=== PATIENT | male | born 1945 | race Caucasian/White ===

== ENCOUNTER 2018-01-14 20:46 | Inpatient (IN) | payer OTHER ==
--- OUTSIDE RECORDS SUMMARY | 2018-01-14 20:50 | XMS REPORT ---
:1945 [facility] Address [address] [place] [address] [place] [id number] Care Team Providers Name Role Phone James LONDONO Unavailable Unavailable Problems This patient has no known problems. Allergies, Adverse Reactions, Alerts This patient has no known allergies or adverse reactions. Medications This patient has no known medications. Results Test Description Test Time Test Comments Text Results Atomic Results Result Comments BASIC METABOLIC PANEL 2017-12-23 08:06:00 Test Item Value Reference Range Comments SODIUM (BEAKER) (test 140 meq/L 136-145 zssc=416) POTASSIUM (BEAKER) (test 3.7 meq/L 3.5-5.1 ovkq=728) CHLORIDE (BEAKER) (test 106 meq/L 98-107 tcrn=589) CO2 (BEAKER) (test vmwm=533) 26 meq/L 22-29 BLOOD UREA NITROGEN (BEAKER) 18 mg/dL 7-21 (test btfl=497) CREATININE (BEAKER) (test 0.93 mg/dL 0.57-1.25 hdhq=153) GLUCOSE RANDOM (BEAKER) 118 mg/dL 70-105 (test xerr=000) CALCIUM (BEAKER) (test 9.0 mg/dL 8.4-10.2 kllc=811) EGFR (BEAKER) (test 79 mL/min/1.73 sq m ESTIMATED GFR IS NOT fzgh=9114) ACCURATE CREATININE CLEARANCE IN PREDICTING GLOMERULAR FILTRATION RATE. ESTIMATED GFR IS NOT APPLICABLE FOR DIALYSIS PATIENTS. CBC W/PLT COUNT & AUTO [id number] 07:34:00 Test Item Value Reference Range Comments WHITE BLOOD CELL COUNT (BEAKER) (test mbqd=763) 9.9 K/ L 3.5-10.5 RED BLOOD CELL COUNT (BEAKER) (test asnu=838) 3.81 M/ L 4.63-6.08 HEMOGLOBIN (BEAKER) (test zvxe=191) 10.6 GM/DL 13.7-17.5 HEMATOCRIT (BEAKER) (test qyjp=756) 32.7 % 40.1-51.0 MEAN CORPUSCULAR VOLUME (BEAKER) (test zhtl=307) 85.8 fL 79.0-92.2 MEAN CORPUSCULAR HEMOGLOBIN (BEAKER) (test 27.8 pg 25.7-32.2 ctlv=225) MEAN CORPUSCULAR HEMOGLOBIN CONC (BEAKER) (test 32.4 GM/DL 32.3-36.5 aiwf=838) RED CELL DISTRIBUTION WIDTH (BEAKER) (test 16.5 % 11.6-14.4 jeix=635) PLATELET COUNT (BEAKER) (test cgda=036) 233 K/CU MM 150-450 MEAN PLATELET VOLUME (BEAKER) (test jzzm=261) 10.2 fL 9.4-12.4 NUCLEATED RED BLOOD CELLS (BEAKER) (test 0 /100 WBC 0-0 vudi=369) NEUTROPHILS RELATIVE PERCENT (BEAKER) (test 62 % bjdn=259) LYMPHOCYTES RELATIVE PERCENT (BEAKER) (test 26 % gjhl=260) MONOCYTES RELATIVE PERCENT (BEAKER) (test 7 % epgn=854) EOSINOPHILS RELATIVE PERCENT (BEAKER) (test 3 % ogpe=502) BASOPHILS RELATIVE PERCENT (BEAKER) (test 0 % wwym=801) NEUTROPHILS ABSOLUTE COUNT (BEAKER) (test 6.11 K/ L 1.78-5.38 igef=967) LYMPHOCYTES ABSOLUTE COUNT (BEAKER) (test 2.59 K/ L 1.32-3.57 coea=828) MONOCYTES ABSOLUTE COUNT (BEAKER) (test 0.73 K/ L 0.30-0.82 knjf=944) EOSINOPHILS ABSOLUTE COUNT (BEAKER) (test 0.34 K/ L 0.04-0.54 yguf=795) BASOPHILS ABSOLUTE COUNT (BEAKER) (test 0.04 K/ L 0.01-0.08 qlym=315) IMMATURE GRANULOCYTES-RELATIVE PERCENT (BEAKER) 1 % 0-1 (test lqfq=3592)
--- OUTSIDE RECORDS SUMMARY | 2018-01-14 20:50 | XMS REPORT | Clinical Summary ---
:1945 Author Organization [facility] Address [address] [place] [address] Phone Care Team Providers Name Role Phone Unavailable Primary Care Provider Unavailable Allergies Active Allergy Reactions Severity Noted Date Comments Hydromorphone (Bulk) Other (See Comments) 10/12/2013 "hot and cold sweat" Current Medications Prescription Sig. Disp. Refills Start Date End Date Status sertraline (ZOLOFT) Take 100 mg by Active 50 MG tablet mouth daily . ranolazine (RANEXA) Take 500 mg by Active 1,000 mg SR tablet mouth 2 (two) times daily. niacin (NIASPAN) 1000 Take 1,000 mg by Active MG CR tablet mouth nightly. carvedilol (COREG) 25 Take 25 mg by Active MG tablet mouth daily . lisinopril Take 20 mg by Active (PRINIVIL,ZESTRIL) 20 mouth 2 (two) MG tablet times daily . tamsulosin (FLOMAX) Take 0.4 mg by Active 0.4 mg Cp24 24 hr mouth daily. capsule spironolactone Take 25 mg by Active (ALDACTONE) 25 MG mouth daily. tablet gabapentin Take 300 mg by Active (NEURONTIN) 300 MG mouth 3 (three) capsule times daily. omeprazole (PRILOSEC) Take 20 mg by Active 20 MG capsule mouth daily. promethazine Take 25 mg by Active (PHENERGAN) 25 MG mouth every 8 tablet (eight) hours as needed for Nausea. aspirin 81 MG EC Take 81 mg by Active tablet mouth daily. furosemide (LASIX) 40 Take 40 mg by Active MG tablet mouth 2 (two) times daily. glipiZIDE (GLUCOTROL) Take 5 mg by Active 10 MG tablet mouth 2 (two) times daily before meals. minoxidil (LONITEN) Take 2.5 mg by Active 2.5 MG tablet mouth 2 (two) times daily. atorvastatin Take 40 mg by Active (LIPITOR) 40 MG mouth daily. tablet ALPRAZolam (XANAX) Take 1 mg by Active 0.5 MG tablet mouth every night as needed for Anxiety. glimepiride (AMARYL) Take 2 mg by Active 2 MG tablet mouth 2 (two) times daily. sotalol AF (BETAPACE Take 80 mg by Active AF) 80 MG tablet mouth 2 (two) times daily. apixaban (ELIQUIS) 5 Take 5 mg by Active mg Tab tablet mouth 2 (two) times daily. simvastatin (ZOCOR) Take 80 mg by 02/27/2017 Discontinued 80 MG tablet mouth nightly. metFORMIN (GLUMETZA) Take 1,000 mg by 02/27/2017 Discontinued 1000 MG (MOD) 24 hr mouth 2 (two) tablet times daily with breakfast and dinner. clopidogrel (PLAVIX) Take 75 mg by 02/27/2017 Discontinued 75 mg tablet mouth daily. albuterol-ipratropium Inhale 2 puffs 02/27/2017 Discontinued (COMBIVENT) 18-103 by mouth via mcg/actuation inhaler inhaler every 6 (six) hours as needed. minoxidil (LONITEN) Take 2.5 mg by 02/27/2017 Discontinued 2.5 MG tablet mouth daily. budesonide-formoterol Inhale 2 puffs 02/27/2017 Discontinued (SYMBICORT) 160-4.5 by mouth via mcg/actuation inhaler inhaler 2 (two) times daily. aspirin 325 MG EC Take 325 mg by 02/27/2017 Discontinued tablet mouth daily. spironolactone Take 25 mg by 03/22/2017 Discontinued (ALDACTONE) 25 MG mouth daily. tablet metOLazone Take 5 mg by 03/22/2017 Discontinued (ZAROXOLYN) 5 MG mouth daily. tablet gabapentin Take 300 mg by 03/22/2017 Discontinued (NEURONTIN) 300 MG mouth 3 (three) capsule times daily. omeprazole (PRILOSEC) Take 20 mg by 03/22/2017 Discontinued 20 MG capsule mouth daily. promethazine Take 25 mg by 03/22/2017 Discontinued (PHENERGAN) 25 MG mouth every 8 tablet (eight) hours as needed for Nausea. furosemide (LASIX) 40 Take 40 mg by 03/22/2017 Discontinued MG tablet mouth 2 (two) times daily. glipiZIDE (GLUCOTROL) Take 5 mg by 03/22/2017 Discontinued 10 MG tablet mouth 2 (two) times daily before meals. minoxidil (LONITEN) Take 2.5 mg by 03/22/2017 Discontinued 2.5 MG tablet mouth 2 (two) times daily. atorvastatin Take 40 mg by 03/22/2017 Discontinued (LIPITOR) 40 MG mouth daily. tablet ALPRAZolam (XANAX) Take 1 mg by 03/22/2017 Discontinued 0.5 MG tablet mouth every night as needed for Anxiety. glimepiride (AMARYL) Take 2 mg by 03/22/2017 Discontinued 2 MG tablet mouth 2 (two) times daily. sotalol AF (BETAPACE Take 80 mg by 03/22/2017 Discontinued AF) 80 MG tablet mouth 2 (two) times daily. aspirin 81 MG EC Take 81 mg by 03/22/2017 Discontinued tablet mouth daily. metOLazone Take 5 mg by 12/23/2017 Discontinued (ZAROXOLYN) 5 MG mouth daily. tablet Active Problems Problem Noted Date Shortness of breath 12/23/2017 HTN (hypertension) 02/27/2017 CAD (coronary artery disease) 02/27/2017 Hyperlipidemia 02/27/2017 COPD (chronic obstructive pulmonary disease) ([facility] 02/27/2017 Atrial flutter ([facility]) 02/27/2017 Diabetes ([facility]) 02/27/2017 Tricuspid regurgitation 02/27/2017 Chest pain 11/09/2013 Encounters Date Type Specialty Care Team Description 12/23/2017 Hospital Encounter Emmanuel Schuster MD 12/23/2017 Procedure Pass 12/23/2017 Surgery Emmanuel Schuster L CATH & CORONARY MD ANGIOS 12/20/2017 Orders Only Cardiology Emmanuel Schuster MD 03/25/2017 Procedure Pass 03/13/2017 Orders Only Cardiology Emmanuel Schuster MD 02/27/2017 Orders Only Cardiology Emmanuel Schuster MD after 01/13/2017 Social History Tobacco Use Types Packs/Day Years Used Date Former Smoker Cigarettes 1 Smokeless Tobacco: Never Used Tobacco Cessation: Ready to Quit: No Comments: in 2017 Alcohol Use Drinks/Week oz/Week Comments No Sex Assigned at Date Recorded Not on file Last Filed Vital Signs Vital Sign Reading Time Taken Blood Pressure 135/86 12/23/2017 1:19 PM CDT Pulse 73 12/23/2017 1:19 PM CDT Temperature 36.9 C (98.4 F) 12/23/2017 6:41 AM CDT Respiratory Rate 16 12/23/2017 1:19 PM CDT Oxygen Saturation 98% 12/23/2017 11:33 AM CDT Inhaled Oxygen Concentration - - Weight 95.3 kg (210 lb) 12/23/2017 6:41 AM CDT Height 185.4 cm (6' 1") 12/23/2017 6:41 AM CDT Body Mass Index 27.71 12/23/2017 6:41 AM CDT Plan of Treatment Not on file Implants Implanted Type Area High Wire Artist Device Expiration Model / Identifier Date Serial / Lot Device Clsr Andre Mynx 5fr [id number] - [id number] Cardiovascular Right: ACCESS CLOSURE 10/30/2019 [id number] / Implanted: Qty: 1 on 12/23/2017 by Emmanuel Schuster MD Groin / [id number] Procedures Procedure Name Priority Date/Time Associated Diagnosis Comments L CATH & CORONARY 12/23/2017 10:52 AM CDT I25.10 ANGIOS Case Notes 2CASE POP6 POSS PCI after 01/13/2017 Results CARDIAC CATH REPORT - SCAN (12/25/2017 8:31 PM)TRANSFUSION SERVICE REPORT - SCAN (12/24/2017 5:55 PM)Type and screen, automated (12/23/2017 7:23 AM) Component Value Ref Range ABO/RH AUTOMATED (AMPAROAKER) O POSITIVE Ab Scrn NEGATIVE Specimen Performing Laboratory Blood [facility] [address] [address] CBC with platelet count + automated diff (12/23/2017 7:23 AM) Component Value Ref Range WBC 9.9 3.5 - 10.5 K/L RBC 3.81 (L) 4.63 - 6.08 M/L Hemoglobin 10.6 (L) 13.7 - 17.5 GM/DL Hematocrit 32.7 (L) 40.1 - 51.0 % MCV 85.8 79.0 - 92.2 fL MCH 27.8 25.7 - 32.2 pg MCHC 32.4 32.3 - 36.5 GM/DL RDW 16.5 (H) 11.6 - 14.4 % Platelets 233 150 - 450 K/CU MM MPV 10.2 9.4 - 12.4 fL nRBC 0 0 - 0 /100 WBC % Neutros 62 % % Lymphs 26 % % Monos 7 % % Eos 3 % % Baso 0 % # Neutros 6.11 (H) 1.78 - 5.38 K/L # Lymphs 2.59 1.32 - 3.57 K/L # Monos 0.73 0.30 - 0.82 K/L # Eos 0.34 0.04 - 0.54 K/L # Baso 0.04 0.01 - 0.08 K/L Immature Granulocytes-Relative 1 0 - 1 % Specimen Performing Laboratory Blood [address] [address] CBC with platelet count + automated diff (12/23/2017 7:23 AM) Specimen Performing Laboratory Blood Narrative The following orders were created for panel order CBC with platelet count + automated diff. Procedure Abnormality Status --------- ------ CBC with platelet count ...[[id number]]AbnormalFinal result Please view results for these tests on the individual orders. Basic Metabolic Panel (12/23/2017 7:23 AM) Component Value Ref Range Sodium 140 136 - 145 meq/L Potassium 3.7 3.5 - 5.1 meq/L Chloride 106 98 - 107 meq/L CO2 26 22 - 29 meq/L BUN 18 7 - 21 mg/dL Creatinine 0.93 0.57 - 1.25 mg/dL Glucose 118 (H) 70 - 105 mg/dL Calcium 9.0 8.4 - 10.2 mg/dL EGFR 79Comment: ESTIMATED GFR IS NOT ACCURATE mL/min/1.73 sq m CREATININE CLEARANCE IN PREDICTING GLOMERULAR FILTRATION RATE. ESTIMATED GFR IS NOT APPLICABLE FOR DIALYSIS PATIENTS. Specimen Performing Laboratory Blood [address] [address] after 01/13/2017
[2018-01-14] MEDS ORDERED: LEVALBUTEROL 1.25 MG/3 ML NEB ONE (22:32)
[2018-01-14] MEDS ORDERED: CEFEPIME 2 GM VIAL ONE (22:32)
--- NOTE | 2018-01-14 22:32 | RAD REPORT ---
EXAM DESCRIPTION: VAS - Extrem Venous W Compress Damian - 01/14/2018 10:27 pm CLINICAL HISTORY: Bilateral leg edema and swelling. COMPARISON: None. TECHNIQUE: Real-time sonographic interrogation of the left and right lower extremity deep venous sys tems was performed. FINDINGS: Normal compressibility, flow augmentation, phasic flow and spontaneous flow is identified in both the left and right lower extremity deep venous systems. IMPRESSION: No sonographic evidence of left or right lower extremity deep venous thrombosis.
[2018-01-14] MEDS ORDERED: ONDANSETRON 4 MG/2 ML VIAL ONE (22:33)
[2018-01-14] MEDS ORDERED: NA CHLORIDE 0.9% 1,000 ML ONE (22:33)
[2018-01-14] MEDS ORDERED: NA CHLORIDE 0.9% 100 ML IV ONE (22:33)
--- NOTE | 2018-01-14 23:16 | EDPHYS ---
Physician Documentation [facility] Name: Sam Suarez Age: 72 yrs Sex: Male : 1945 Arrival Date: 01/14/2018 Time: 20:55 Bed 30 Private MD: ED Physician Enio Schuster HPI: 01/14 21:40 This 72 yrs old Male presents to ER via EMS with complaints of chest pain, cristian fever and vomiting. 21:40 The patient or guardian reports chest pain that is located primarily in the epigastric cristian area. Onset: just prior to arrival, today. The patient presents with abdominal pain in the upper abdomen, in the lower abdomen, that is diffuse, abdominal distention in the upper abdomen, in the lower abdomen. Onset: The symptoms/episode began/occurred 2 day(s) ago. The patient presents to the emergency department with nausea, vomiting, abdominal pain, of the right upper quadrant, left upper quadrant, right lower quadrant and left lower quadrant. Onset: The symptoms/episode began/occurred 2 day(s) ago. Possible causes: unknown. The symptoms do not radiate. Historical: - Allergies: 21:07 Dilaudid; kr2 21:07 metformin; kr2 - Home Meds: 01/15 00:27 cholecalciferol (vitamin D3) 1,000 unit oral chew [Active]; Brovana 15 mcg/2 mL tl3 inhalation nebu [Active]; Aldactone 25 mg Oral tab 1 tab once daily [Active]; Flomax 0.4 mg Oral cp24 every 12 hours [Active]; sertraline 100 mg oral tab [Active]; zinc sulfate 220 (50) mg Oral cap [Active]; ascorbic acid (vitamin C) 1,000 mg tab [Active]; finasteride 5 mg Oral tab 1 tab once daily [Active]; Lasix 40 mg Oral tab once daily [Active]; omeprazole 20 mg Oral cpDR 1 cap once daily [Active]; alprazolam 0.5 mg oral TbDL 1 tab [Active]; Coreg 25 mg Oral tab 1 tab 2 times per day [Active]; Ranexa 500 mg oral Tb12 2 times per day [Active]; promethazine 25 mg Oral tab 1 tab every 8 hours [Active]; Eliquis 5 mg oral tab 1 tab 2 times per day [Active]; gabapentin 300 mg Oral cap 1 cap 3 times per day [Active]; nitroglycerin 0.4 mg SL subl 1 tab every 5 minutes for Angina [Active]; hydrocodone-acetaminophen 10-325 mg/15 mL(15 mL) oral soln [Active]; albuterol sulfate 90 mcg/actuation inhalation HFAA 2 puffs every 6 hours [Active]; - PMHx: 01/14 21:14 Anemia; ATHEROSCLEROSIS; Atrial Fib; renal insufficiency; B12 deficiency; Cataracts; kr2 CHF; COPD; Diabetes - NIDDM; enlarged prostate; ESBL Resistance; GERD; Hematuria; Hyperlipidemia; Hypertension; Hypomagnesemia; Lower extremity edema; Major Depressive Disorder; mass on kidney; Myocardial infarction; pericardial effusion; SOB; UTI; - PSHx: 21:14 R hip; R wrist; Appendectomy; two stents in heart; kr2 - Immunization history:: Adult Immunizations unknown. - Social history:: Smoking status: Patient/guardian denies using tobacco. - Family history:: not pertinent. ROS: 21:40 Constitutional: Negative for fever, chills, and weight loss, Eyes: Negative for injury, cristian pain, redness, and discharge, ENT: Negative for injury, pain, and discharge, Neck: Negative for injury, pain, and swelling, Cardiovascular: Negative for chest pain, palpitations, and edema, Respiratory: Negative for shortness of breath, cough, wheezing, and pleuritic chest pain, Back: Negative for injury and pain, : Negative for injury, bleeding, discharge, and swelling, MS/Extremity: Negative for injury and deformity, Skin: Negative for injury, rash, and discoloration, Neuro: Negative for headache, weakness, numbness, tingling, and seizure, Psych: Negative for depression, anxiety, suicide ideation, homicidal ideation, and hallucinations, Allergy/Immunology: Negative for hives, rash, and allergies, Endocrine: Negative for neck swelling, polydipsia, polyuria, polyphagia, and marked weight changes, Hematologic/Lymphatic: Negative for swollen nodes, abnormal bleeding, and unusual bruising. 21:40 Abdomen/GI: Positive for abdominal pain, nausea, vomiting, abdominal distension, of the right upper quadrant, left upper quadrant, right lower quadrant and left lower quadrant. Exam: 21:40 Constitutional: This is a well developed, well nourished patient who is awake, alert, cristian and in no acute distress. Head/Face: Normocephalic, atraumatic. Eyes: Pupils equal round and reactive to light, extra-ocular motions intact. Lids and lashes normal. Conjunctiva and sclera are non-icteric and not injected. Cornea within normal limits. Periorbital areas with no swelling, redness, or edema. ENT: Nares patent. No nasal discharge, no septal abnormalities noted. Tympanic membranes are normal and external auditory canals are clear. Oropharynx with no redness, swelling, or masses, exudates, or evidence of obstruction, uvula midline. Mucous membranes moist. Neck: Trachea midline, no thyromegaly or masses palpated, and no cervical lymphadenopathy. Supple, full range of motion without nuchal rigidity, or vertebral point tenderness. No Meningismus. Chest/axilla: Normal chest wall appearance and motion. Nontender with no deformity. No lesions are appreciated. Respiratory: Lungs have equal breath sounds bilaterally, clear to auscultation and percussion. No rales, rhonchi or wheezes noted. No increased work of breathing, no retractions or nasal flaring. Back: No spinal tenderness. No costovertebral tenderness. Full range of motion. Male : Normal genitalia with no discharge or lesions. Skin: Warm, dry with normal turgor. Normal color with no rashes, no lesions, and no evidence of cellulitis. Neuro: Awake and alert, GCS 15, oriented to person, place, time, and situation. Cranial nerves II-XII grossly intact. Motor strength 5/5 in all extremities. Sensory grossly intact. Cerebellar exam normal. Normal gait. Psych: Awake, alert, with orientation to person, place and time. Behavior, mood, and affect are within normal limits. 21:40 Cardiovascular: Rate: tachycardic, Rhythm: regular, Pulses: Pulses are 4+ in bilateral radial, brachial, femoral, popliteal, posterior tibial and and dorsalis pedis arteries.. Heart sounds: normal, Edema: 3+ edema to level of left midcalf and right midcalf, JVD: is not appreciated. 23:11 Neck: ROM/movement: is normal, no acute changes, Meningeal signs: are not present, cristian Kernig's sign is negative, Brudzinski's sign is negative. Vital Signs: 21:06 BP 133 / 77; Pulse 119; Resp 20; Pulse Ox 94% on R/A; Weight 95.25 kg; Height 6 ft. 1 kr2 in. (185.42 cm); Pain 0/10; 01/15 00:02 BP 119 / 70; Pulse 82; Resp 18; Temp 100.0; Pulse Ox 96% ; tl3 00:41 BP 120 / 89; Pulse 97; Resp 18; Pulse Ox 100% on 2 lpm NC; tl3 01/14 21:06 Body Mass Index 27.71 (95.25 kg, 185.42 cm) kr2 MDM: 01/14 21:[address] [facility] 21:40 Data reviewed: vital signs. Data reviewed: vital signs, nurses notes, EMS record, [facility] alf records, lab test result(s), EKG, radiologic studies, CT scan, plain films. 01/14 21:38 Order name: Basic Metabolic Panel; Complete Time: 00:07 [facility] 01/14 21:38 Order name: BNP; Complete Time: 23:35 [facility] 01/14 21:38 Order name: CBC with Diff [facility] 01/14 21:38 Order name: Ckmb; Complete Time: 00:07 [facility] 01/14 21:38 Order name: CPK; Complete Time: 00:07 [facility] 01/14 21:38 Order name: LFT's; Complete Time: 00:07 [facility] 01/14 21:38 Order name: Magnesium; Complete Time: 00:07 [facility] 01/14 21:38 Order name: PT-INR; Complete Time: 00:07 [facility] 01/14 21:38 Order name: Ptt, Activated; Complete Time: 00:07 [facility] 01/14 21:38 Order name: Troponin (emerg Dept Use Only); Complete Time: 23:35 [facility] 01/14 21:38 Order name: Lipase; Complete Time: 00:07 [facility] 01/14 21:38 Order name: Blood Culture Adult (2) [facility] 01/14 21:38 Order name: Urine Culture [facility] 01/14 21:38 Order name: Lactate; Complete Time: 00:07 [facility] 01/14 21:38 Order name: XRAY Chest ([address] view) [facility] 01/14 21:38 Order name: Procalcitonin; Complete Time: 00:07 [facility] 01/14 21:38 Order name: US Extremity Venou Bilateral; Complete Time: 22:40 [facility] 01/14 21:45 Order name: CT Chest Abdomen Pelvis W/O Contrast: no oral and no iv [facility] 01/14 23:25 Order name: Urine Dipstick--Ancillary (enter results) em1 01/15 00:04 Order name: Urine Dipstick-Ancillary; Complete Time: 00:07 [facility] 01/15 02:11 Order name: CBC Smear Scan EDNC 01/14 21:38 Order name: EKG; Complete Time: 21:48 [facility] 01/14 21:38 Order name: Cardiac monitoring; Complete Time: 00:40 [facility] 01/14 21:38 Order name: EKG - Nurse/Tech; Complete Time: 00:40 [facility] 01/14 21:38 Order name: IV Saline Lock; Complete Time: 00:39 [facility] 01/14 21:38 Order name: Labs collected and sent; Complete Time: 00:40 [facility] 01/14 21:38 Order name: O2 Per Protocol; Complete Time: 00:40 [facility] 01/14 21:38 Order name: O2 Sat Monitoring; Complete Time: 00:40 [facility] 01/14 21:38 Order name: Urine Dipstick-Ancillary (obtain specimen); Complete Time: 23:24 [facility] 01/14 21:38 Order name: Esequiel foster Administered Medications: 22:45 Drug: Cefepime 2 grams Route: IVPB; Rate: 200 ml/hr; Infused Over: 30 mins; Site: right tl3 antecubital; 01/15 01:35 Follow up: IV Status: Infusion continued upon admission [facility] 01/14 22:45 Drug: NS 0.9% 1000 ml Route: IV; Rate: 75 ml/hr; Site: right antecubital; Delivery: tl3 Primary tubing; 01/15 01:35 Follow up: IV Status: Infusion continued upon admission [facility] 01/14 22:47 Drug: Zofran 4 mg Route: IVP; Infused Over: 3 mins; Site: right antecubital; [facility] 01/15 02:29 Follow up: Response: No adverse reaction; Vomiting decreased [facility] 01/14 23:00 Drug: Xopenex 1.25 mg Route: Inhalation; [facility] 01/15 02:29 Follow up: Response: No adverse reaction [facility] 01/14 23:00 Drug: AtroVENT Aerosol 0.5 mg Route: Inhalation; [facility] 01/15 01:22 Follow up: Response: No adverse reaction; Wheezing diminished tl3 00:39 Drug: Flagyl 500 mg Volume: 100 ml; Route: IVPB; Rate: 200 ml/hr; Infused Over: 30 tl3 mins; Site: right antecubital; 01:10 Follow up: IV Status: Completed infusion; IV Intake: 100ml tl3 01:21 Drug: Potassium Effervescent Tablet 50 mEq Route: PO; tl3 01:34 Follow up: Response: No adverse reaction tl3 01:22 Drug: Xopenex 1.25 mg Route: Inhalation; tl3 01:34 Follow up: Response: No adverse reaction tl3 01:22 Drug: AtroVENT Aerosol 0.5 mg Route: Inhalation; tl3 01:34 Follow up: Response: No adverse reaction tl3 Disposition: 01/14/18 23:15 Hospitalization ordered by Lala Gonzales for Inpatient Admission. Preliminary diagnosis are Weakness, Fever, unspecified, Left sided colitis, Atrial fibrillation and flutter, Vomiting, Type 2 diabetes mellitus, Cystitis, Obesity, unspecified, Hypokalemia. - Bed requested for Telemetry/MedSurg (Inpatient). - Status is Inpatient Admission. tl3 - Condition is Fair. - Problem is new. - Symptoms have improved. UTI on Admission? Yes Signatures: Dispatcher [employer] EDMS Safia Ritter RN RN Enio Lazaro MD MD cha Reaves, Karey RN RN kr2 Zhane Esqueda RN RN tl3
--- NOTE | 2018-01-14 23:16 | ER ---
Nurse's Notes [facility] Name: Sam Suarez Age: 72 yrs Sex: Male : 1945 Arrival Date: 01/14/2018 Time: 20:55 Bed 30 Private MD: Diagnosis: Weakness;Fever, unspecified;Left sided colitis;Atrial fibrillation and flutter;Vomiting;Type 2 diabetes mellitus;Cystitis;Obesity, unspecified;Hypokalemia Presentation: 01/14 20:59 Presenting complaint: EMS states: family called us reporting patient was lethargic, kr2 altered mental status and had chest pain. When we arrived he did not have any chest pain. He was alert and oriented. He reports having vomiting and fever for 2 days. He had a temperature of 103.1 and the room was very hot. He received 1000mg of Tylenol prior to leaving his home. Temperature at this time is 100.3. Blood pressure has been 140's/70's. Pulse around 115. He does have a history of Afib, blood glucose 178. Transition of care: patient was not received from another setting of care. Onset of symptoms was January 12, 2018. Care prior to arrival: Medication(s) given: Tylenol, 1000 mg. 20:59 Method Of Arrival: EMS: [facility] kr2 20:59 Acuity: AMANDA 3 kr2 01/15 00:11 Care prior to arrival:. tl3 Triage Assessment: 01/14 20:58 General: Appears. General: Appears Behavior is calm, cooperative, appropriate for age. tl3 Pain: Complains of pain in left midcalf and left lower quadrant and right lower quadrant and left upper quadrant and right upper quadrant. EENT: No signs and/or symptoms were reported regarding the EENT system. Neuro: Level of Consciousness is awake, alert, obeys commands, Oriented to person, place, time, situation, Appropriate for age pt is very hard of hearing, but reads lips very well. Cardiovascular: Heart tones S1 S2 present Capillary refill < 3 seconds in bilateral fingers. Respiratory: Airway is patent Trachea midline Breath sounds are diminished bilaterally. GI: Abdomen is round distended, Bowel sounds present X 4 quads. hyperactive in right upper quadrant, left upper quadrant, right lower quadrant and left lower quadrant. : No signs and/or symptoms were reported regarding the genitourinary system. Derm: No signs and/or symptoms reported regarding the dermatologic system. Musculoskeletal: Reports does not ambulate due to hip problem. 01/15 00:29 General: Appears uncomfortable, well developed, well nourished, Behavior is. tl3 Historical: - Allergies: 01/14 21:07 Dilaudid; kr2 21:07 metformin; kr2 - Home Meds: 01/15 00:27 cholecalciferol (vitamin D3) 1,000 unit oral chew [Active]; Brovana 15 mcg/2 mL tl3 inhalation nebu [Active]; Aldactone 25 mg Oral tab 1 tab once daily [Active]; Flomax 0.4 mg Oral cp24 every 12 hours [Active]; sertraline 100 mg oral tab [Active]; zinc sulfate 220 (50) mg Oral cap [Active]; ascorbic acid (vitamin C) 1,000 mg tab [Active]; finasteride 5 mg Oral tab 1 tab once daily [Active]; Lasix 40 mg Oral tab once daily [Active]; omeprazole 20 mg Oral cpDR 1 cap once daily [Active]; alprazolam 0.5 mg oral TbDL 1 tab [Active]; Coreg 25 mg Oral tab 1 tab 2 times per day [Active]; Ranexa 500 mg oral Tb12 2 times per day [Active]; promethazine 25 mg Oral tab 1 tab every 8 hours [Active]; Eliquis 5 mg oral tab 1 tab 2 times per day [Active]; gabapentin 300 mg Oral cap 1 cap 3 times per day [Active]; nitroglycerin 0.4 mg SL subl 1 tab every 5 minutes for Angina [Active]; hydrocodone-acetaminophen 10-325 mg/15 mL(15 mL) oral soln [Active]; albuterol sulfate 90 mcg/actuation inhalation HFAA 2 puffs every 6 hours [Active]; - PMHx: 01/14 21:14 Anemia; ATHEROSCLEROSIS; Atrial Fib; renal insufficiency; B12 deficiency; Cataracts; kr2 CHF; COPD; Diabetes - NIDDM; enlarged prostate; ESBL Resistance; GERD; Hematuria; Hyperlipidemia; Hypertension; Hypomagnesemia; Lower extremity edema; Major Depressive Disorder; mass on kidney; Myocardial infarction; pericardial effusion; SOB; UTI; - PSHx: 21:14 R hip; R wrist; Appendectomy; two stents in heart; kr2 - Immunization history:: Adult Immunizations unknown. - Social history:: Smoking status: Patient/guardian denies using tobacco. - Family history:: not pertinent. Screenin/18 00:02 Abuse screen: Denies threats or abuse. Nutritional screening: No deficits noted. tl3 Tuberculosis screening: No symptoms or risk factors identified. Fall Risk None identified. Assessment: 01/14 21:17 General: Appears comfortable, well developed, well nourished, Behavior is calm, tl3 cooperative, appropriate for age. Pain: Complains of pain in abdomen. Neuro: Level of Consciousness is awake, alert, obeys commands, Oriented to person, place, time, situation, Appropriate for age. Cardiovascular: Heart tones S1 S2 present Capillary refill < 3 seconds in bilateral fingers. Respiratory: Airway is patent Trachea midline Respiratory effort is even, unlabored, Respiratory pattern is regular, symmetrical, Breath sounds are coarse bilaterally. Parent/caregiver reports the patient having cough that is productive. GI: Abdomen is round Bowel sounds present X 4 quads. hyperactive in right upper quadrant, left upper quadrant, right lower quadrant and left lower quadrant Reports vomiting. : No signs and/or symptoms were reported regarding the genitourinary system. EENT: No signs and/or symptoms were reported regarding the EENT system. Derm: No signs and/or symptoms reported regarding the dermatologic system. Skin Skin is pink, warm \T\ dry. Musculoskeletal: No signs and/or symptoms reported regarding the musculoskeletal system. 01/15 00:41 Reassessment: Patient appears in no apparent distress at this time. No changes from tl3 previously documented assessment. Patient is alert, oriented x 3, equal unlabored respirations, skin warm/dry/pink. family at bedside. Vital Signs: 01/14 21:06 BP 133 / 77; Pulse 119; Resp 20; Pulse Ox 94% on R/A; Weight 95.25 kg; Height 6 ft. 1 kr2 in. (185.42 cm); Pain 0/10; 01/15 00:02 BP 119 / 70; Pulse 82; Resp 18; Temp 100.0; Pulse Ox 96% ; tl3 00:41 BP 120 / 89; Pulse 97; Resp 18; Pulse Ox 100% on 2 lpm NC; tl3 01/14 21:06 Body Mass Index 27.71 (95.25 kg, 185.42 cm) kr2 ED Course: 01/14 20:55 Patient arrived in ED. em1 20:59 Camille Nelson, RN is Primary Nurse. kr2 21:06 Triage completed. kr2 21:22 Enio Schuster MD is Attending Physician. cristian 21:[address] vm2 22:04 CT Chest Abdomen Pelvis W/O Contrast: no oral and no iv In Process Unspecified. EDMS 22:26 X-ray completed. Patient tolerated procedure well. kc2 22:26 Patient moved back from radiology. kc2 22:27 US Extremity Venou Bilateral In Process Unspecified. EDMS 22:27 XRAY Chest (1 view) In Process Unspecified. EDMS 22:45 Initial lab(s) drawn, by me, sent to lab. Urine collected: Iraheta catheter specimen, tl3 clear, chau colored, Amount Returned: 400mL EKG done, by ED staff. Initial Neb Treatment Given as ordered Patient tolerated procedure well without adverse effect. Inserted saline lock: 20 gauge in right antecubital area, using aseptic technique. Blood collected. 23:13 Lala Gonzales MD is Hospitalizing Provider. [facility] 01/15 00:02 Patient has correct armband on for positive identification. Bed in low position. Call tl3 light in reach. Side rails up X2. quality assurance monitor on. Pulse ox on. NIBP on. Warm blanket given. 00:02 No provider procedures requiring assistance completed. tl3 00:10 Arm band placed on right wrist. tl3 00:39 Urine Dipstick--Ancillary (enter results) Sent. tl3 02:28 Patient admitted, IV remains in place. tl3 Administered Medications: 01/14 22:45 Drug: Cefepime 2 grams Route: IVPB; Rate: 200 ml/hr; Infused Over: 30 mins; Site: right tl3 antecubital; 01/15 01:35 Follow up: IV Status: Infusion continued upon admission 3 01/14 22:45 Drug: NS 0.9% 1000 ml Route: IV; Rate: 75 ml/hr; Site: right antecubital; Delivery: tl3 Primary tubing; 01/15 01:35 Follow up: IV Status: Infusion continued upon admission 3 01/14 22:47 Drug: Zofran 4 mg Route: IVP; Infused Over: 3 mins; Site: right antecubital; 3 01/15 02:29 Follow up: Response: No adverse reaction; Vomiting decreased tl3 01/14 23:00 Drug: Xopenex 1.25 mg Route: Inhalation; tl3 01/15 02:29 Follow up: Response: No adverse reaction tl3 01/14 23:00 Drug: AtroVENT Aerosol 0.5 mg Route: Inhalation; tl3 01/15 01:22 Follow up: Response: No adverse reaction; Wheezing diminished tl3 00:39 Drug: Flagyl 500 mg Volume: 100 ml; Route: IVPB; Rate: 200 ml/hr; Infused Over: 30 tl3 mins; Site: right antecubital; 01:10 Follow up: IV Status: Completed infusion; IV Intake: 100ml tl3 01:21 Drug: Potassium Effervescent Tablet 50 mEq Route: PO; tl3 01:34 Follow up: Response: No adverse reaction tl3 01:22 Drug: Xopenex 1.25 mg Route: Inhalation; tl3 01:34 Follow up: Response: No adverse reaction tl3 01:22 Drug: AtroVENT Aerosol 0.5 mg Route: Inhalation; tl3 01:34 Follow up: Response: No adverse reaction tl3 Intake: 01:10 IV: 100ml; Total: 100ml. tl3 Outcome: 01/14 23:15 Decision to Hospitalize by Provider. [facility] 01/15 02:27 Admitted to Tele accompanied by nurse, accompanied by tech, via stretcher, with oxygen, tl3 with chart, Report called to CARA Myers Condition: stable Instructed on the need for admit. 02:30 Patient left the ED. tl3 Signatures: Dispatcher [employer] EDEnio Castillo MD MD cha Martinez, Eric Felicia Ceja Avril Kc 2 Camille Nelson RN RN kr2 Zhane Esqueda RN RN tl3 Corrections: (The following items were deleted from the chart) 00:10 00:09 Mechanism of Injury: No Mechanism of Injury tl3 tl3 00:38 00:29 Mechanism of Injury: No Mechanism of Injury tl3 tl3 00:46 00:09 General: Appears tl3 tl3 00:48 00:41 BP 120 / 89; Pulse 97bpm; Resp 99bpm; Pulse Ox 100% 2 lpm Nasal Cannula; tl3 tl3
[2018-01-14 23:18] LABS: Protime INR 2.75
[2018-01-14 23:28] LABS: Absolute Lymphocytes (CBC) 1.4 K/uL (0.7-4.9); Absolute Monocytes 1.4 K/uL (0.1-1.3); Absolute Neutrophil 14.6 K/uL (1.8-8.0); Albumin 3.4 g/dL (3.2-5.5); Basophils % 0.5 % (0-1.3); Eosinophils % 0.1 % (0-4.4); Hematocrit 30.9 % (39.6-49.0); Lymphocytes % 8.2 % (15.3-44.8); MCH 26.8 pg (27.0-35.0); MCV 82.2 fL (80-100); MPV 9.2 fL (7.6-11.3); Magnesium 1.8 mg/dL (1.8-2.5); Monocytes % 7.9 % (3.3-12.3); Protein, Total 6.9 g/dL (6.0-8.3); RBC Red Blood Cell Count 3.76 M/uL (4.33-5.43)
[2018-01-14 23:43] LABS: Bilirubin Direct 0.3 mg/dL (0-0.2)
[2018-01-15 00:03] LABS: Urine Glucose NEGATIVE (NEG)
[2018-01-15 00:04] LABS: Urine Blood 1+ (NEG); Urine Protein 2+ (NEG); Urine pH 5.5 (5.0-7.0)
[2018-01-15] MEDS ORDERED: METRONIDAZOLE 500mg IVPB 500 MG/100 ML BAG IV ONE (00:34)
--- NOTE | 2018-01-15 00:42 | P.HP ---
Certification for Inpatient Patient admitted to: Inpatient With expected LOS: >2 Midnights Practitioner: I am a practitioner with admitting privileges, knowledge of patient current condition, hospital course, and medical plan of care. Services: Services provided to patient in accordance with Admission requirements found in Title 42 Section 412.3 of the Code of Federal Regulations Patient History Date of Service: 01/15/18 Reason for admission: sepsis History of Present Illness: Mr Suarez is a 72 years old male with several medical problems, mostly bed bound due to avascular necrosis of right hip, who start about 2 days ago to be progressively more lethargic and weak. He was more confused. The patient has had vomiting for the last couple of days, it was associated with fever, according to family member 103.0F at home. At arrival the patient was febrile 100.3, lab work remarkable for leukocytosis 17.6K, elevated procalcitonin, normal lactate. UA abnormal consistent with UTI. CT chest/abd/pelvis report suspected colitis, right renal mass, concerning for RCC. Allergies hydromorphone [From Dilaudid] Allergy (Verified 09/07/17 21:48) Nausea/Vomiting metformin Allergy (Verified 06/25/17 19:38) Rash Home Medications: Alprazolam [Xanax*] 0.5 mg PO BEDTIME 06/01/17 Apixaban [Eliquis *] 5 mg PO BID 06/01/17 Carvedilol [Coreg*] 25 mg PO BID 06/01/17 Ranolazine [Ranexa] 500 mg PO BID 06/01/17 Spironolactone 25 mg PO DAILY 06/01/17 Tamsulosin [Flomax*] 0.4 mg PO BID 06/01/17 Finasteride [Proscar*] 5 mg PO DAILY 06/25/17 Furosemide [Lasix*] 40 mg PO DAILY 06/25/17 Promethazine HCl 25 mg PO Q8HP PRN 06/26/17 Sertraline HCl 100 mg PO DAILY 06/26/17 Nitroglycerin 0.4 mg SL PRN PRN 09/05/17 Potassium Oral Tab [Klor-Con 10 mEq Tab*] 20 meq PO BID 09/05/17 - Past Medical/Surgical History Diabetic: Yes -: Hypertension -: Congestive heart failure -: COPD, former smoker -: Hyperlipidemia -: Atrial fibrillation on chronic anti coagulation -: Atherosclerotic Heart disease -: Diabetes mellitus type 2 -: History of falls -: History of recurring UTI -: Cataracts -: GERD -: Benign prostatic hyperplasia -: Cholecystectomy -: Hernia repair -: Cardiac stents x2 -: Colon polyp removal -: Appendectomy Psychosocial/ Personal History: The patient is 48 years, has 2 children and 1 adopted child. 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 - Family History Mother -: Cancer Notes: breast cancer Sister -: Cancer Notes: ovarian cancer Brother -: Heart disease Notes: heart attack - Social History Alcohol use: No CD- Drugs: No Caffeine use: Yes Place of Residence: Home Review of Systems 10-point ROS is otherwise unremarkable Physical Examination - Physical Exam General: Alert, In no apparent distress HEENT: Atraumatic, PERRLA, Mucous membr. moist/pink, EOMI, Sclerae nonicteric Neck: Supple, 2+ carotid pulse no bruit, No LAD, Without JVD or thyroid abnormality Respiratory: Clear to auscultation bilaterally, Normal air movement Cardiovascular: Regular rate/rhythm, Normal S1 S2 Gastrointestinal: Normal bowel sounds, Tenderness (diffuse tenderness to palpation) Musculoskeletal: No tenderness, Swelling (bilateral LE edema, right more than left) Integumentary: No rashes Neurological: Normal strength at 5/5 x4 extr, Normal tone, Normal affect, Abnormal speech (slurred) Lymphatics: No axilla or inguinal lymphadenopathy - Studies Laboratory Data (last 24 hrs) 01/14/18 23:00: PT 32.8 H, INR 2.75, APTT 52.2 H 01/14/18 23:00: WBC 17.6 H, Hgb 10.1 L, Hct 30.9 L, Plt Count 244 01/14/18 23:00: B-Natriuretic Peptide 507 H 01/14/18 23:00: Sodium 136, Potassium 3.0 L, BUN 18, Creatinine 1.19, Glucose 161 H, Magnesium 1.8, Total Bilirubin 1.0, AST 17, ALT 23, Alkaline Phosphatase 96, Lipase 13 L Assessment and Plan - Problems (Diagnosis) (1) Sepsis Current Visit: Yes Status: Acute Qualifiers: Sepsis type: sepsis due to unspecified organism Qualified Code(s): A41.9 - Sepsis, unspecified organism (2) Lower extremity edema Onset Date: 07/10/16 Current Visit: No Status: Acute (3) Weakness Onset Date: 07/18/16 Current Visit: No Status: Acute (4) Chronic obstructive pulmonary disease Onset Date: 06/04/17 Current Visit: No Status: Chronic Qualifiers: COPD type: COPD with acute exacerbation Qualified Code(s): J44.1 - Chronic obstructive pulmonary disease with (acute) exacerbation (5) Diabetes mellitus Onset Date: 06/04/17 Current Visit: No Status: Chronic Qualifiers: Diabetes mellitus type: type 2 Diabetes mellitus shelter insulin use: without shelter use Diabetes mellitus complication status: with unspecified complications Qualified Code(s): E11.8 - Type 2 diabetes mellitus with unspecified complications (6) Right kidney mass Onset Date: 06/04/17 Current Visit: No Status: Chronic (7) UTI (urinary tract infection) Onset Date: 09/05/17 Current Visit: No Status: Resolved Qualifiers: Urinary tract infection type: site unspecified Hematuria presence: without hematuria Qualified Code(s): N39.0 - Urinary tract infection, site not specified - Plan The patient will be admitted to the hospital due to sepsis, likely source of infection UTI, and suspected colitis. Will continue empiric treatment with Cefepime. Resume his home medication when verified and if is appropriate for his clinical condition. Blood and urine culture in process. - Advance Directives Does patient have a Living Will: No Does patient have a Durable POA for Healthcare: Yes - Code Status/Comfort Care Code Status Assessed: Yes Code Status: Full Code
[2018-01-15] MEDS ORDERED: POTASSIUM 25 MEQ EFFERV TAB ONE (01:10)
[2018-01-15] MEDS ORDERED: LEVALBUTEROL 1.25 MG/3 ML NEB ONE (01:18)
[2018-01-15] MEDS ORDERED: IPRATROPIUM BROM 0.5MG/2.5ML ONE (01:18)
[2018-01-15 02:11] LABS: Blood Morphology Comment NOT SEEN (NOT SEEN); Platelet Estimate ADEQ; Urine White Blood Cell Casts OK
[2018-01-15] MEDS ORDERED: ONDANSETRON 4 MG/2 ML VIAL IV PRN (02:42)
[2018-01-15] MEDS: ACETAMINOPHEN 500 MG TAB PO PRN ×2 (04:09→16:26)
[2018-01-15] MEDS: NA CHLORIDE 0.9% 1,000 ML IV SCH ×2 (04:09→12:42)
--- NOTE | 2018-01-15 07:28 | EKG ---
Test Date: 2018-01-14 Test Time: 23:30:42 Construction Producer: TL MEASUREMENT RESULTS: Intervals: Rate: 100 NE: QRSD: 102 QT: 392 QTc: 505 [place]: P: NE: QRS: -30 T: 56 INTERPRETIVE STATEMENTS: Atrial flutter with variable AV block Left axis deviation Nonspecific ST abnormality Prolonged QT Abnormal ECG Compared to ECG 09/04/2017 18:51:19 ST (T wave) deviation now present Prolonged QT interval now present Myocardial infarct finding no longer present Electronically Signed On 01-15-18 07:26:56 CDT by Clayton Miller
[2018-01-15] MEDS: INSULIN -REGULAR HUMAN 50 UNIT/0.5 ML ML SQ SCH ×4 (07:30→21:00)
[2018-01-15] MEDS ORDERED: MAGNESIUM SULFATE 1 gm IVPB 1 GM/100 ML BAG IV ONE (08:00)
--- NOTE | 2018-01-15 08:26 | RAD REPORT ---
EXAM DESCRIPTION: RAD - Chest Single View - 01/14/2018 10:32 pm CLINICAL HISTORY: Chest pain. COMPARISON: 09/03/2017 FINDINGS: Portable technique limits examination quality. The lungs are mildly emphysematous but grossly clear. The heart is upper limit normal in size. No dis placed fractures. IMPRESSION: Mild COPD.
[2018-01-15] MEDS ORDERED: CEFEPIME 1 GM/VIAL IV SCH (09:00)
[2018-01-15] MEDS ORDERED: POTASSIUM CL SA 10 MEQ TAB PO ONE ×2 (09:00→18:00)
--- NOTE | 2018-01-15 09:18 | RAD REPORT ---
EXAM DESCRIPTION: CT - Chest Abd Pelvis Wo Con - 01/15/2018 4:28 am CLINICAL HISTORY: Chest and abdomen pain. COMPARISON: 06/25/2017, 06/03/2017, 05/21/[address] scans are performed using dose optimization technique as appropriate and may includ e automated exposure control or mA/KV adjustment according to patient size. FINDINGS: Subsegmental atelectasis is present in both lung bases posteriorly.Minimal left and small right pleural effusion.Moderate bilateral gynecomastia.No intrathoracic adenopathy. Noncontrast evaluation of the liver demonstrates no focal mass or biliary dilatation. Cholecystectomy clips are seen. The spleen, pancreas and adrenal glands are normal. A mass is again noted in the rig ht kidney measuring 4.8 x 5.6 cm. Hyperdense cyst is present in the cortex of left kidney measuring 1 2 mm. Small nonobstructing stone is present left kidney. No bowel obstruction, free air, free fluid or abscess. Fat stranding is seen in the presacral space s urrounding the rectosigmoid colon, nonspecific. Liquid stool is seen in the rectosigmoid colon. A sma ll to moderate left fat containing inguinal hernia. Prominent degenerative changes are present in lumbar spine. Hardware is present proximal right IMPRESSION: Inflammatory changes in the inferior pelvis surrounding the rectosigmoid colon probably represents colitis. Right renal mass is noted measuring 4.8 x 5.6 cm, likely neoplastic. The lesion was 4.5 cm on the prior study. Findings were discussed with Dr. Collins on 01/15/2018.
[2018-01-15] MEDS: CEFEPIME/SWI 1gm 1 GM/10 ML SYR IV SCH ×2 (09:45→21:05)
--- NOTE | 2018-01-15 09:49 | EKG ---
Test Date: 2018-01-14 Test Time: 23:31:30 Mobile Lab Technician: TL MEASUREMENT RESULTS: Intervals: Rate: 97 RI: QRSD: 104 QT: 374 QTc: 474 [place]: P: RI: QRS: -30 T: 63 INTERPRETIVE STATEMENTS: Atrial flutter with variable AV block Left axis deviation Abnormal ECG Compared to ECG 01/14/2018 23:30:42 ST (T wave) deviation no longer present Prolonged QT interval no longer present Electronically Signed On 01-15-18 09:49:02 CDT by Clayton Miller
--- NOTE | 2018-01-15 18:28 | PN ---
Date of Progress Note: 01/15/2018 Subjective: The patient seen and examined, chart reviewed, and case discussed with RN and radiologis tDr. Melara. The patient says, he is doing better. No significant events overnight. No new complai nts. Review of Systems: Negative except as above. Medications: Reviewed. Physical Examination: Vital Signs: Temperature 97.7, heart rate 84, blood pressure 101/58, respirations 18, and O2 saturat ion 98% on 2 L via nasal cannula. General: Awake, alert, oriented x3. Not in any acute distress. Elderly male, somewhat ill-appearin g. CV: S1, S2. No murmurs. Peripheral pulses present bilaterally. Respiratory: Moving air well bilaterally. No wheezing. No stridor. Gastrointestinal: Abdomen is soft, nontender, nondistended. Positive bowel sounds. Extremities: No clubbing, cyanosis, edema. Neurologic: Nonfocal. Laboratory Data: Procalcitonin 0.9. Assessment: A 72-year-old male with; 1.Sepsis. 2.Lower extremity edema. 3.Generalized weakness. 4.Chronic obstructive pulmonary disease. 5.Chronic bronchitis with acute exacerbation. We will continue with steroids and breathing treatmen ts. 6.Diabetes mellitus type 2, without long-term use of insulin. Continue sliding scale. 7.Right kidney mass. The patient was diagnosed approximately 1 year ago. States he is scheduled to have the procedure done at the [place]. He is unsure when. 8.Urinary tract infection, acute cystitis without hematuria. We will follow up on cultures. Contin ue IV antibiotics. 9.Essential hypertension, stable. 10.History of congestive heart failure, unknown ejection fraction, compensated. 11.Mixed hyperlipidemia. 12.Atrial fibrillation, chronic, on anticoagulation. 13.Benign prostatic hyperplasia. Continue Flomax. SA/MODL Voice ID: [id number] Report ID: [id number]
[2018-01-15] MEDS: CARVEDILOL 25 MG TAB PO SCH (21:05)
[2018-01-15] MEDS: APIXABAN 5 MG TABLET PO SCH (21:06)
[2018-01-15] MEDS: HYDROCODONE/APAP 7.5/325 MG TAB PO SCH (21:06)
[2018-01-15] MEDS: ALPRAZOLAM 0.5 MG TABLET PO SCH (21:06)
[2018-01-16 04:52] LABS: Absolute Lymphocytes (CBC) 1.6 K/uL (0.7-4.9); Absolute Monocytes 1.5 K/uL (0.1-1.3); Absolute Neutrophil 12.5 K/uL (1.8-8.0); Basophils % 0.5 % (0-1.3); Eosinophils % 0.4 % (0-4.4); Hematocrit 29.4 % (39.6-49.0); Lymphocytes % 10.1 % (15.3-44.8); MCH 27.3 pg (27.0-35.0); MCV 82.3 fL (80-100); MPV 9.1 fL (7.6-11.3); Monocytes % 9.4 % (3.3-12.3); RBC Red Blood Cell Count 3.57 M/uL (4.33-5.43)
[2018-01-16 05:04] LABS: Potassium 3.5 mEq/L (3.6-5.0)
[2018-01-16] MEDS ORDERED: KCL 20 MEQ/100 mL IVPB 20 MEQ/100 ML BAG IV SCH ×2 (07:00→13:10)
[2018-01-16] MEDS ORDERED: POTASSIUM CL SA 10 MEQ TAB PO ONE ×2 (07:03→13:10)
[2018-01-16] MEDS: INSULIN -REGULAR HUMAN 50 UNIT/0.5 ML ML SQ SCH ×4 (07:30→21:00)
[2018-01-16] MEDS: SPIRONOLACTONE 25 MG TABLET PO SCH (09:00)
[2018-01-16] MEDS ORDERED: MAGNESIUM CITRATE 300 ML BOT PO SCH (09:00)
[2018-01-16] MEDS ORDERED: HOME MED 1 EA UNK (Ipratropium/Albuterol Sulfate [Iprat-Albut 0.5-3(2.5) Mg/3 Ml] 3 ML) IH PRN (10:03)
[2018-01-16] MEDS: CARVEDILOL 25 MG TAB PO SCH ×2 (12:35→21:32)
[2018-01-16] MEDS: HYDROCODONE/APAP 7.5/325 MG TAB PO SCH ×3 (13:15→21:32)
[2018-01-16] MEDS: APIXABAN 5 MG TABLET PO SCH ×2 (13:15→21:45)
[2018-01-16] MEDS: CEFEPIME/SWI 1gm 1 GM/10 ML SYR IV SCH ×2 (13:16→21:32)
[2018-01-16] MEDS: glipiZIDE 5 MG TAB PO SCH (17:49)
--- NOTE | 2018-01-16 18:13 | PN ---
Date of Progress Note: 01/16/2018 Subjective: The patient seen and examined, chart reviewed, and case discussed with RN. The patient is a poor historian. Does complain of some constipation. Review of Systems: Negative except as above. Medications: Reviewed. Physical Examination: Vital Signs: Temperature 97.2, heart rate 99, blood pressure 116/67, respirations 18, and O2 98% on 2 L via nasal cannula. General: Awake, alert, oriented x3, in some distress, ill-appearing elderly male. CV: S1, S2. No murmurs. Irregularly irregular. Peripheral pulses present. Respiratory: Moving air well bilaterally. No wheezing. No stridor. No use of accessory muscles Gastrointestinal: Abdomen is soft, nondistended, nontender. Positive bowel sounds. Extremities: No clubbing, cyanosis, or edema. Neurologic: Nonfocal. Laboratory Data: Sodium 136, potassium 3.5, chloride 105, CO2 26, BUN 21, creatinine 1.07, glucose 132, and calcium 9.1. Procalcitonin 1.61. WBC 15.7, H and H 9.7, 29.4, platelets 236, and neutrophils 79%. Blood cultures no growth to date. Urine culture, 4+ gram-negative rods. Assessment And Plan: A 72-year-old male who has; 1. Sepsis, improving. White count has normalized. No further fevers. 2. Lower extremity edema. 3. Generalized weakness. Continue PT. 4. Right avascular necrosis of the hip. The patient is going for surgery in January at the [facility]. 5. Chronic obstructive pulmonary disease. Continue breathing treatments. 6. Diabetes mellitus type 2 with long-term use of insulin. Continue sliding scale. Continue Accu-Cheks. 7. Right kidney mass. Appreciate Dr. Retana's input. Currently not a candidate for nephrectomy. The patient's MPOA has been informed. She understands the risk of metastasis. She seems to be overwhelmed with the care of the patient as well as her sister, who is the patient's . The patient will be evaluated at the [facility] as an outpatient after hip surgery, which may make him a better candidate for nephrectomy. 8. Urinary tract infection, acute cystitis without hematuria. f/up on cultures 9. Essential hypertension. 10. History of congestive heart failure, unknown ejection fraction. Clinically compensated. 11. Mixed hyperlipidemia. 12. Atrial fibrillation, chronic, on anticoagulation. 13. Benign prostatic hypertrophy. Continue Flomax. 14. Gastrointestinal and deep venous thrombosis prophylaxis addressed. /PERLA Voice ID: [id number] Report ID: [id number] MTDD
--- NOTE | 2018-01-16 18:58 | CON ---
History Of Present Illness: This is a 72-year-old gentleman with severe medical problems, mostly bed-bound due to avascular necrosis of the right hip. Does not speak much. Has multiple medical problems including COPD, diabetes, right kidney mass, UTIs, arrhythmias, who came in mostly lethargic and weak and confused. A CT scan shows suspected colitis. History of right renal mass measuring 4.8 x 5.6 cm, appears to be in the right kidney anterior laterally extending to the hilum of the kidney. Typically a patient like this would need a right radical nephrectomy. However, he is not a good surgical candidate, and this has to be watched at this time, due to location of the kidney it would be difficult for cryotherapy or radiofrequency ablation, due to the fact that it goes midline towards the renal pelvis area. Unfortunately, the safest monotherapy for it may be watchful waiting with the chance that it may metastasize, but with all his medical problems, he may not make it until then. Allergies: HYDROMORPHONE, METFORMIN. Home Medications: Xanax, Eliquis, Coreg, Ranexa, Flomax, Proscar, Lasix, promethazine, sertraline, nitroglycerin, and potassium chloride. Past Medical History: Hypertension, congestive heart failure, COPD, former smoker, hyperlipidemia, atrial fibrillation with chronic anticoagulation, atherosclerotic heart disease, diabetes type 2, history of falls, recurrent UTIs , cataract surgery, BPH, status post cholecystectomy, status post hernia repair , status post cardiac stent, status post colon polyp removals, status post splenectomy. Psychosocial: He at 56 has 2 children who are adopted. He believes 1 of his daughter is the power of cyber security analyst. We will need to speak with her. Family History: Mother had breast cancer. Sister with ovarian cancer. Brother , heart disease. Social History: No alcohol, no drugs. Some caffeine use. Resides at home. Review of Systems: A 10-point review of systems otherwise unremarkable. Physical Examination: General: The patient is alert, resting in bed. HEENT: Atraumatic, normocephalic. Neck: Supple. Chest: Clear bilaterally. Heart: S1-S2. Gastrointestinal: Normal bowel sounds. Skin: Normal. Neurologic: Intact. Lymphatics negative. : Both testicles are descended. The Iraheta catheter is draining clear urine. Laboratory Data: White count 15.7, down from 17.6, H and H 9.7 and 29, platelet count is 236. Coags were elevated, PT 32.8. INR 2.8. PTT elevated at 52. Chemistry; sodium 136, potassium 3.5, chloride 105, CO2 26, BUN 21, creatinine 1.1, GFR 68, glucose 32. Urine study showed 1+ ketone, 1+ blood, nitrite negative, esterase 1+, glucose negative. Assessment: The patient with multiple medical problems, multiple comorbidities. He did not have any renal surgery. Does have a large 4-5 cm renal mass in the right kidney and hence into the hilum, possibly looks like renal cell carcinoma. This was a plain scan. We could get 1 with contrast, but if it will not change the management, there is no need to expose him to the nephrotoxic dye. We will have to discuss with power of cyber security analyst just so much they want to have done, if they want to go to [place] for possible minimally invasive surgery plus or minus radical surgery, knowing that he may not make it through, in this bed bound patient. GÉNESIS/PERLA Voice ID: [id number] Report ID: [id number] MICHAEL
--- NOTE | 2018-01-16 18:58 | PN ---
Had a long discussion, about 10-15 minute discussion with the [id number], Margareth, who has Power of finance attorney, phone number is [phone], about Mr. Suarez's condition and the renal mass that I was concerned about that may be cancer, possible renal cell carcinoma that may metastasize eventually. She said the plan at the [facility] was to get his right hip fixed next month. He already had a cardiac cath and is cleared to go to surgery, so she will go ahead and fix his right hip since he is bed-bound to get him out of bed and walking and ambulating. Once he is ambulating, I told her to get a consult from Urology at the [facility] about his renal mass to see how they will proceed. We do not know how he will do after general anesthesia with his COPD and other medical issues that he has, but if he does recover nicely and become ambulatory again, it makes him a better surgical candidate for a radical nephrectomy. On the other hand, if he does not do well after the hip surgery and that will tell us how he will do after the kidney surgery also. So, the point is to do a hip surgery first and see how he does and then proceed with the right kidney surgery. GÉNESIS/PERLA Voice ID: [id number] Report ID: [id number] MICHAEL
[2018-01-16] MEDS: ALPRAZOLAM 0.5 MG TABLET PO SCH (21:32)
[2018-01-16] MEDS: GABAPENTIN 400 MG CAP PO SCH (21:45)
[2018-01-16] MEDS: TAMSULOSIN 0.4 MG SR CAP PO SCH (21:45)
[2018-01-17 05:47] LABS: Absolute Lymphocytes (CBC) 2.2 K/uL (0.7-4.9); Absolute Monocytes 0.7 K/uL (0.1-1.3); Absolute Neutrophil 6.5 K/uL (1.8-8.0); Basophils % 0.7 % (0-1.3); Eosinophils % 2.8 % (0-4.4); Hematocrit 28.6 % (39.6-49.0); Lymphocytes % 22.1 % (15.3-44.8); MCH 27.3 pg (27.0-35.0); MCV 82.4 fL (80-100); MPV 9.4 fL (7.6-11.3); Magnesium 2.2 mg/dL (1.8-2.5); Monocytes % 7.6 % (3.3-12.3); Potassium 3.7 mEq/L (3.6-5.0); RBC Red Blood Cell Count 3.47 M/uL (4.33-5.43)
[2018-01-17] MEDS ORDERED: POTASSIUM 25 MEQ EFFERV TAB PO ONE (06:07)
[2018-01-17] MEDS: INSULIN -REGULAR HUMAN 50 UNIT/0.5 ML ML SQ SCH ×4 (07:30→20:53)
[2018-01-17] MEDS: glipiZIDE 5 MG TAB PO SCH ×2 (08:00→18:33)
[2018-01-17] MEDS ORDERED: Meropenem 500 MG VIAL IV SCH (09:00)
[2018-01-17] MEDS: Meropenem 500 MG in NA CHLORIDE 0.9% 100 ML IV SCH ×2 (11:10→18:33)
[2018-01-17] MEDS: LISINOPRIL 10 MG TAB PO SCH (11:11)
[2018-01-17] MEDS: SERTRALINE HCL 100 MG TAB PO SCH (11:11)
[2018-01-17] MEDS: GABAPENTIN 400 MG CAP PO SCH ×2 (11:11→20:34)
[2018-01-17] MEDS: SPIRONOLACTONE 25 MG TABLET PO SCH (11:11)
[2018-01-17] MEDS: FINASTERIDE 5 MG TAB PO SCH (11:11)
[2018-01-17] MEDS: HYDROCODONE/APAP 7.5/325 MG TAB PO SCH ×3 (11:11→21:00)
[2018-01-17] MEDS: FUROSEMIDE 40 MG TABLET PO SCH (11:11)
[2018-01-17] MEDS: CARVEDILOL 25 MG TAB PO SCH ×2 (11:12→20:34)
[2018-01-17] MEDS: APIXABAN 5 MG TABLET PO SCH ×2 (11:12→20:34)
--- NOTE | 2018-01-17 15:45 | PN ---
Date of Progress Note: 01/17/2018 Subjective: The patient seen and examined, chart reviewed, and case discussed with Dr. Retana. I spo ke with the patient's medical power of blanket maker yesterday, Margareth who is the [id number]. Spoke at length regarding the patient's kidney mass and his overall prognosis. She understands that his kidne y mass has to be evaluated the at the [facility]. Currently given his situation, he is not a surgical candid ate per Dr. Retana. She understands that the kidney mass may metastasize, which is likely cancerous. The patient will be undergoing hip surgery in January at the [facility]. Subsequently, may be a better candidat e for nephrectomy postsurgery once he is ambulating. Review of Systems: Limited due to the patient's medical condition; however, he denies any significant amount of pain. Medications: Reviewed. Physical Examination: Vital Signs: Temperature 97.4, heart rate 83, blood pressure 102/77, respirations 17, and O2 100% on 2 L via nasal cannula. General: awake, alert, oriented x2, in some mild distress. Elderly male, ill-appearing. CV: S1, S2. No murmurs. Irregularly irregular. Peripheral pulses present. Respiratory: Diminished breath sounds at the bases. Moving air well bilaterally. No wheezing Gastr ointestinal: Abdomen is soft. Mild distention. Bowel sounds are positive. No tenderness. Extremities: No clubbing, cyanosis. The patient does have peripheral edema. Neurologic: Nonfocal. The patient does have some generalized weakness. Laboratory Data: Sodium 141, potassium 3.7, chloride 108, CO2 28, BUN 24, creatinine 0.94, glucose 1 47, calcium 8.9, and magnesium 2.2. WBC 9.8, H and H 9.4 and 28.6, and platelets 269. Urine culture growing ESBL E coli, sensitive to meropenem. Blood cultures no growth to date. Assessment And Plan: A 72-year-old male with; 1.Sepsis, improving. White count has normalized. No further fevers. 2.Lower extremity edema. 3.Generalized weakness. Continue PT evaluation. The patient is bed bound due to his avascular necr osis of the hip. 4.Right avascular necrosis of the hip. The patient is going for surgery in January at the [facility]. 5.Chronic obstructive pulmonary disease. He is currently on 2 L of oxygen. Continue breathing baljeet tments. 6.Diabetes mellitus type 2 with long-term use of insulin. Continue sliding scale. Continue Accu-Ch eks. 7.Right kidney mass. Appreciate Dr. Retana's input. Currently not a candidate for nephrectomy. The patient's MPOA has been informed. She understands the risk of metastasis. She seems to be overwhel med with the care of the patient as well as her sister, who is the patient's . The patient will be evaluated at the [facility] as an outpatient after hip surgery, which may make him a better candidate for nephrectomy. 8.Urinary tract infection, acute cystitis without hematuria. Cultures now growing Escherichia coli, which is extended-spectrum beta-lactamase producing. We will switch IV antibiotics to meropenem. W e will obtain PICC line and the patient will need 2 weeks of IV antibiotics. 9.Essential hypertension. 10.History of congestive heart failure, unknown ejection fraction. Clinically compensated. 11.Mixed hyperlipidemia. 12.Atrial fibrillation, chronic, on anticoagulation. 13.Benign prostatic hypertrophy. Continue Flomax. 14.Gastrointestinal and deep venous thrombosis prophylaxis addressed. /PERLA Voice ID: [id number] Report ID: [id number]
--- NOTE | 2018-01-17 18:57 | PN ---
Subjective: The patient is doing well. Objective: Urine is clear. He is feeding himself in the room. Assessment: Renal mass, suspicious for renal cell carcinoma. The patient will be planning to get th e hip fixed and then become ambulatory and then have [facility]. We will sign off the case for now. GÉNESIS/PERLA Voice ID: [id number] Report ID: [id number]
[2018-01-17] MEDS: TAMSULOSIN 0.4 MG SR CAP PO SCH (20:33)
[2018-01-17] MEDS: DOCUSATE NA 100 MG CAP PO SCH (20:34)
[2018-01-17] MEDS: ALPRAZOLAM 0.5 MG TABLET PO SCH (20:34)
[2018-01-18] MEDS: Meropenem 500 MG in NA CHLORIDE 0.9% 100 ML IV SCH ×3 (00:06→17:50)
[2018-01-18 05:40] LABS: Absolute Lymphocytes (CBC) 2.1 K/uL (0.7-4.9); Absolute Monocytes 0.6 K/uL (0.1-1.3); Basophils % 0.8 % (0-1.3); Eosinophils % 3.5 % (0-4.4); Hematocrit 27.9 % (39.6-49.0); Lymphocytes % 26.3 % (15.3-44.8); MCH 27.7 pg (27.0-35.0); MCV 81.5 fL (80-100); MPV 8.7 fL (7.6-11.3); Monocytes % 7.6 % (3.3-12.3); RBC Red Blood Cell Count 3.42 M/uL (4.33-5.43)
[2018-01-18 06:20] LABS: Albumin 2.7 g/dL (3.2-5.5); Bilirubin Total 0.3 mg/dL (0.3-1.2); Potassium 3.9 mEq/L (3.6-5.0); Protein, Total 5.8 g/dL (6.0-8.3)
[2018-01-18] MEDS ORDERED: POTASSIUM CL SA 10 MEQ TAB PO ONE (06:27)
[2018-01-18] MEDS: INSULIN -REGULAR HUMAN 50 UNIT/0.5 ML ML SQ SCH ×4 (07:30→21:00)
[2018-01-18] MEDS: LISINOPRIL 10 MG TAB PO SCH (09:18)
[2018-01-18] MEDS: APIXABAN 5 MG TABLET PO SCH ×2 (09:18→21:23)
[2018-01-18] MEDS: glipiZIDE 5 MG TAB PO SCH ×2 (09:18→17:50)
[2018-01-18] MEDS: FUROSEMIDE 40 MG TABLET PO SCH (09:18)
[2018-01-18] MEDS: POLYETHYL GLY 3350 17 GM/DOSE PO SCH (09:18)
[2018-01-18] MEDS: CARVEDILOL 25 MG TAB PO SCH ×2 (09:18→21:23)
[2018-01-18] MEDS: DOCUSATE NA 100 MG CAP PO SCH ×2 (09:19→21:24)
[2018-01-18] MEDS: FINASTERIDE 5 MG TAB PO SCH (09:19)
[2018-01-18] MEDS: GABAPENTIN 400 MG CAP PO SCH ×2 (09:19→21:23)
[2018-01-18] MEDS: SPIRONOLACTONE 25 MG TABLET PO SCH (09:19)
[2018-01-18] MEDS: SERTRALINE HCL 100 MG TAB PO SCH (09:19)
[2018-01-18] MEDS: HYDROCODONE/APAP 7.5/325 MG TAB PO SCH ×3 (09:21→21:23)
--- NOTE | 2018-01-18 10:54 | RAD REPORT ---
EXAM DESCRIPTION: RAD - Chest Single View - 01/18/2018 3:49 am CLINICAL HISTORY: Device placement PICC line placement COMPARISON: January 14, 2018 FINDINGS: A PICC line has been inserted with its tip in the proximal superior vena cava. Small pleural effusions are present with mild bibasilar atelectasis. The heart is normal size. IMPRESSION: PICC line with its tip in the proximal superior vena cava
--- NOTE | 2018-01-18 17:22 | PN ---
Date of Progress Note: 01/18/2018 Subjective: The patient seen and examined. Chart reviewed and case discussed with RN. The patient is doing well. He does not wish to go to a SNF. He would rather go home with home health. He is bed bound due to his avascular necrosis of the hip, which is to be operated in January at the [facility]. The patient otherwise denies any significant symptoms. No acute events overnight. Review of Systems: Negative except as above. Medications: Reviewed. Physical Examination: Vital Signs: Temperature 97.3, heart rate 82, blood pressure 144/85, respirations 18, and O2 95% on 2 L via nasal cannula. General: Awake, alert, and oriented x3. Mildly ill-appearing, obese, BMI 33.7 , elderly male. CV: S1 and S2, irregularly irregular. Peripheral pulse is weak bilaterally. Respiratory: Moving air well bilaterally. No wheezing. Gastrointestinal: Abdomen is soft, nontender, nondistended. Positive bowel sounds. Extremities: No clubbing, cyanosis. 2+ peripheral edema. Neurologic: Nonfocal. Musculoskeletal: Tenderness to palpation in the right hip. Laboratory Data: Sodium 141, potassium 3.9, chloride 107, CO2 of 30, BUN 25, creatinine 1.06, glucose 114, and calcium 8.8. WBC 8.1, H and H 9.5 and 27.9, and platelets 278. Urine culture showing an ESBL E. coli. Blood cultures, no growth to date. Assessment And Plan: A 72-year-old male with; 1. Sepsis, improving. Secondary to ESBL Escherichia coli. The patient now is afebrile. White count normalized. 2. Urinary tract infection and acute cystitis without hematuria secondary to ESBL Escherichia coli. We will continue IV meropenem. PICC line has been placed. The patient will need 2 weeks of IV antibiotics. Social workers assisting with setting up outpatient antibiotics. 3. Generalized weakness. Continue PT. 4. Right avascular necrosis of the hip. Surgery has been scheduled at the [facility] in January. 5. Chronic obstructive pulmonary disease. The patient on 2 L of oxygen. Continue breathing treatment for chronic bronchitis. 6. Diabetes mellitus type 2 with long-term use of insulin. Continue sliding scale. 7. Right kidney mass. urology has signed off. Not a candidate for surgery at this time. The patient will need eventual nephrectomy or possible cryotherapy or radioablation therapy. The patient's medical power of attorney law clerk is aware of the situation. She understands that the patient will need hip surgery initially and once he goes through with the surgery and is ambulating, perhaps he can be evaluated for this mass at the [facility] making him a better candidate for nephrectomy. 8. Essential hypertension, stable. Resume home medications. 9. History of congestive heart failure, unknown EF, compensated. The patient does have some mild lower extremity edema. 10. Hyperlipidemia. 11. Atrial fibrillation, chronic on anticoagulation. 12. Benign prostatic hypertrophy. Continue Flomax. 13. Gastrointestinal and deep venous thrombosis prophylaxis with PPI. The patient is on Eliquis for AFib. /PERLA Voice ID: [id number] Report ID: [id number] MTDD
[2018-01-18] MEDS: TAMSULOSIN 0.4 MG SR CAP PO SCH (21:23)
[2018-01-18] MEDS: ALPRAZOLAM 0.5 MG TABLET PO SCH (21:23)
[2018-01-18] MEDS: IPRATROPIUM BROM 0.5MG/2.5ML IH PRN (23:20)
[2018-01-18] MEDS: ALBUTEROL 2.5 MG/3 ML NEB SOL IH PRN (23:20)
[2018-01-19] MEDS: Meropenem 500 MG in NA CHLORIDE 0.9% 100 ML IV SCH ×3 (00:24→17:41)
[2018-01-19 05:03] LABS: Absolute Lymphocytes (CBC) 2.5 K/uL (0.7-4.9); Absolute Monocytes 0.8 K/uL (0.1-1.3); Absolute Neutrophil 4.7 K/uL (1.8-8.0); Basophils % 0.9 % (0-1.3); Eosinophils % 4.1 % (0-4.4); Hematocrit 29.8 % (39.6-49.0); Lymphocytes % 30.1 % (15.3-44.8); MCH 26.7 pg (27.0-35.0); MCV 82.3 fL (80-100); MPV 8.5 fL (7.6-11.3); Monocytes % 9.6 % (3.3-12.3); RBC Red Blood Cell Count 3.62 M/uL (4.33-5.43)
[2018-01-19 05:34] LABS: Albumin 2.7 g/dL (3.2-5.5); Bilirubin Total 0.4 mg/dL (0.3-1.2); Potassium 3.6 mEq/L (3.6-5.0); Protein, Total 5.4 g/dL (6.0-8.3)
[2018-01-19] MEDS ORDERED: POTASSIUM CL SA 10 MEQ TAB PO ONE (05:44)
[2018-01-19 06:44] VITALS: BMI 33.8
[2018-01-19] MEDS: INSULIN -REGULAR HUMAN 50 UNIT/0.5 ML ML SQ SCH ×4 (07:30→21:00)
[2018-01-19] MEDS: HYDROCODONE/APAP 7.5/325 MG TAB PO SCH ×3 (09:00→21:00)
[2018-01-19] MEDS: DOCUSATE NA 100 MG CAP PO SCH ×2 (09:04→21:16)
[2018-01-19] MEDS: glipiZIDE 5 MG TAB PO SCH ×2 (09:04→17:41)
[2018-01-19] MEDS: GABAPENTIN 400 MG CAP PO SCH ×2 (09:04→21:14)
[2018-01-19] MEDS: POLYETHYL GLY 3350 17 GM/DOSE PO SCH (09:04)
[2018-01-19] MEDS: SERTRALINE HCL 100 MG TAB PO SCH (09:04)
[2018-01-19] MEDS: FINASTERIDE 5 MG TAB PO SCH (09:04)
[2018-01-19] MEDS: CARVEDILOL 25 MG TAB PO SCH ×2 (09:04→21:15)
[2018-01-19] MEDS: LISINOPRIL 10 MG TAB PO SCH (09:04)
[2018-01-19] MEDS: FUROSEMIDE 40 MG TABLET PO SCH (09:04)
[2018-01-19] MEDS: SPIRONOLACTONE 25 MG TABLET PO SCH (09:05)
[2018-01-19] MEDS: APIXABAN 5 MG TABLET PO SCH ×2 (09:08→21:16)
--- NOTE | 2018-01-19 15:13 | PN ---
Date of Progress Note: 01/19/2018 Subjective: The patient seen and examined. Chart reviewed and case discussed with RN. The patient denies any significant pain, doing well. No acute events overnight. Review of Systems: Negative except as above. Medications: Reviewed. Physical Examination: Vital Signs: Temperature 97.5, heart rate 79, blood pressure 147/82, respirations 16, O2 95%. General: Awake, alert, and oriented x3, not in any acute distress, elderly male, obese, BMI 33.9. CV: S1 and S2. No murmurs. Regular rate and rhythm. Irregularly irregular. Peripheral pulses pre sent bilaterally. Respiratory: Moving air well bilaterally. No wheezing. Gastrointestinal: Abdomen is soft, nontender, nondistended. Positive bowel sounds. No guarding or rigidity. Extremities: No clubbing, cyanosis. 2+ peripheral edema bilaterally. Neurologic: Nonfocal. Laboratory Data: Sodium 140, potassium 3.6, chloride 109, CO2 27, BUN 20, creatinine 0.88, glucose 1 01, calcium 8.6, albumin 2.7. WBC 8.4, H and H 9.7 and 29.2, platelets 343. Urine culture shows ESB L Escherichia coli. Blood cultures, no growth to date. Assessment And Plan: A 72-year-old male with; 1.Sepsis, resolving secondary to ESBL Escherichia coli. The patient is afebrile. White count has n ormalized. We will continue to monitor blood cultures, negative to date. 2.Urinary tract infection with acute cystitis without hematuria secondary to ESBL Escherichia coli. The patient has been switched over to IV meropenem. PICC line has been placed. The patient will ne ed 2 weeks of IV antibiotics. 3.Generalized weakness. Continue physical therapy. 4.Right avascular necrosis of the hip. The patient will be operated on at the [facility] on January. 5.Right kidney mass. The patient not a candidate for surgery at this time. Appreciate Dr. Retana's input. The patient will eventually need nephrectomy or cryotherapy versus radioablation therapy. I spoke with Margareth, patient's medical power of automotive sales representative at length. The patient will need to be further evaluated at the [facility] once his hip surgery is complete. 6.Diabetes mellitus type 2 with long-term use of insulin with hyperglycemia. We will continue slidi ng scale. 7.Chronic obstructive pulmonary disease on 2 L of oxygen. We will continue with nebulizer treatment s as needed. 8.Essential hypertension, stable. 9.History of congestive heart failure with unknown ejection fraction, compensated. 10.Hyperlipidemia. 11.Atrial fibrillation chronic, on anticoagulation. 12.Benign prostatic hypertrophy. Continue Flomax. 13.Gastrointestinal and deep venous thrombosis prophylaxis, PPI. The patient already on Eliquis for atrial fibrillation. Plan: Social workers to evaluate for IV antibiotics and set up outpatient IV antibiotics. The patie nt did not wish to go SNF or LTAC for rehab or for IV antibiotics. /PERLA Voice ID: [id number] Report ID: [id number]
[2018-01-19] MEDS: ALPRAZOLAM 0.5 MG TABLET PO SCH (21:15)
[2018-01-19] MEDS: TAMSULOSIN 0.4 MG SR CAP PO SCH (21:15)
[2018-01-20] MEDS: Meropenem 500 MG in NA CHLORIDE 0.9% 100 ML IV SCH ×4 (01:22→18:52)
[2018-01-20] MEDS: HYDROCODONE/APAP 7.5/325 MG TAB PO SCH ×3 (05:03→20:19)
[2018-01-20 05:44] LABS: Absolute Lymphocytes (CBC) 2.5 K/uL (0.7-4.9); Absolute Monocytes 0.7 K/uL (0.1-1.3); Absolute Neutrophil 7.2 K/uL (1.8-8.0); Basophils % 0.8 % (0-1.3); Eosinophils % 2.8 % (0-4.4); Hematocrit 29.1 % (39.6-49.0); MCH 27.2 pg (27.0-35.0); MCV 82.3 fL (80-100); MPV 8.5 fL (7.6-11.3); Monocytes % 6.6 % (3.3-12.3); RBC Red Blood Cell Count 3.54 M/uL (4.33-5.43)
[2018-01-20 05:45] LABS: Albumin 2.8 g/dL (3.2-5.5); Bilirubin Total 0.3 mg/dL (0.3-1.2); Potassium 3.8 mEq/L (3.6-5.0); Protein, Total 6.1 g/dL (6.0-8.3)
[2018-01-20] MEDS ORDERED: POTASSIUM 25 MEQ EFFERV TAB PO ONE (06:08)
[2018-01-20] MEDS: INSULIN -REGULAR HUMAN 50 UNIT/0.5 ML ML SQ SCH ×4 (07:30→20:21)
[2018-01-20] MEDS: POLYETHYL GLY 3350 17 GM/DOSE PO SCH (09:08)
[2018-01-20] MEDS: CARVEDILOL 25 MG TAB PO SCH ×2 (09:09→20:20)
[2018-01-20] MEDS: SPIRONOLACTONE 25 MG TABLET PO SCH (09:11)
[2018-01-20] MEDS: GABAPENTIN 400 MG CAP PO SCH ×2 (09:11→20:19)
[2018-01-20] MEDS: LISINOPRIL 10 MG TAB PO SCH (09:11)
[2018-01-20] MEDS: FINASTERIDE 5 MG TAB PO SCH (09:11)
[2018-01-20] MEDS: APIXABAN 5 MG TABLET PO SCH ×2 (09:12→20:20)
[2018-01-20] MEDS: SERTRALINE HCL 100 MG TAB PO SCH (09:12)
[2018-01-20] MEDS: glipiZIDE 5 MG TAB PO SCH ×2 (09:12→17:44)
[2018-01-20] MEDS: FUROSEMIDE 40 MG TABLET PO SCH (09:12)
[2018-01-20] MEDS: DOCUSATE NA 100 MG CAP PO SCH ×2 (09:12→20:19)
[2018-01-20] MEDS ORDERED: ALTEPLASE 2 MG/VIAL IV SCH ×2 (15:00→18:00)
[2018-01-20] MEDS: WATER FOR INJ,STERILE 10 ML ONE (15:16)
--- NOTE | 2018-01-20 16:03 | P.PN ---
Subjective Date of Service: 01/20/18 Chief Complaint: sepsis The patient feels well, no fever or chills. Physical Examination - Vital Signs Temperature: 97.3 F Blood Pressure: 124/78 Pulse: 73 Respirations: 18 Pulse Ox (%): 97 - Physical Exam General: Alert, In no apparent distress HEENT: Atraumatic, PERRLA, EOMI Respiratory: Clear to auscultation bilaterally, Normal air movement Cardiovascular: Regular rate/rhythm, Normal S1 S2 Gastrointestinal: Normal bowel sounds, No tenderness Musculoskeletal: No tenderness Integumentary: No rashes - Studies Microbiology Data (last 24 hrs): 01/14/18 23:00 Blood - Blood Aerobic Blood Culture - Final No growth in 5 days. 01/14/18 23:00 Blood - Blood Anaerobic Blood Culture - Final No growth in 5 days. 01/14/18 23:00 Blood - Blood Aerobic Blood Culture - Final No growth in 5 days. 01/14/18 23:00 Blood - Blood Anaerobic Blood Culture - Final No growth in 5 days. Medications List Reviewed: Yes Assessment And Plan - Current Problems (Diagnosis) (1) Sepsis Onset Date: 01/15/18 Current Visit: Yes Status: Acute Qualifiers: Sepsis type: sepsis due to unspecified organism Qualified Code(s): A41.9 - Sepsis, unspecified organism (2) Lower extremity edema Onset Date: 07/10/16 Current Visit: No Status: Acute (3) Weakness Onset Date: 07/18/16 Current Visit: No Status: Acute (4) Chronic obstructive pulmonary disease Onset Date: 06/04/17 Current Visit: No Status: Chronic Qualifiers: COPD type: COPD with acute exacerbation Qualified Code(s): J44.1 - Chronic obstructive pulmonary disease with (acute) exacerbation (5) Diabetes mellitus Onset Date: 06/04/17 Current Visit: No Status: Chronic Qualifiers: Diabetes mellitus type: type 2 Diabetes mellitus termite helper insulin use: without termite helper use Diabetes mellitus complication status: with unspecified complications Qualified Code(s): E11.8 - Type 2 diabetes mellitus with unspecified complications (6) Right kidney mass Onset Date: 06/04/17 Current Visit: No Status: Chronic (7) UTI (urinary tract infection) Onset Date: 09/05/17 Current Visit: No Status: Resolved Qualifiers: Urinary tract infection type: site unspecified Hematuria presence: without hematuria Qualified Code(s): N39.0 - Urinary tract infection, site not specified - Plan #1 sepsis: secondary to UTI. WBC remain normal, no fever, blood cultures negative, however urine culture is positive for E.Coli ESBL. Plan to continue with IV meropenem to complete [address] line in place. Social service is in the process to find a SNF for placement.
[2018-01-20] MEDS ORDERED: D50W 25 GM/50 ML SYRINGE IV PRN (17:35)
[2018-01-20] MEDS ORDERED: GLUCAGON 1 MG/VIAL IM PRN (17:35)
[2018-01-20] MEDS ORDERED: WATER FOR INJ,STERILE 10 ML ONE (17:36)
--- NOTE | 2018-01-20 18:27 | CON ---
History Of Present Illness: A 72-year-old gentleman who recently had laparoscopic inguinal hernia re pair bilaterally, umbilical hernia and left-sided abdominal hernia, came in with difficulty voiding, abdominal pain, fevers, and, and we placed a catheter in. The patient is a full bladder with elevate d creatinine 4.4[place] [address], and a CT scan showed a 6 mm nonobstructing right cayetano al calculus and creatinine was 4.29. The patient was confused, appeared septic. Once the catheter d rained the bladder, still having some hematuria most likely from rapid decompression of the bladder. My impression was that it was most likely obstructive with a UTI since he has a long history of havi ng UTIs. He has had Escherichia coli in the past, meropenem sensitive, just November 03, 2017. He borja s a very large prostate. He has had cystoscopies done in the office. His postvoid residual was 77 c c usually. PSA was 7.0 on 09/14 and his free PSA was 27% giving him a less than 8% chance of prostat e cancer. His prostate volume was measured at 115 g and finasteride was started for this. He also h as a history for a 5 mm kidney stone in the right, and also acts to rule out a bladder perforation, s eems very unlikely, but we will go ahead and order a CT cystogram today, as there is some inflammatio n around the inguinal hernia repair and some fluid in the pelvis, possible from the surgery. The pat ient has done well since the catheter was placed. His white count has come down to 10 from 16,000. Chemistry-calle, his creatinine has come down to 1.0 from the 4.29. He is doing well, otherwise. Past Medical History: Coronary artery disease status post CABG, hypertension, diabetes mellitus type s 2, GERD, BPH, carotid artery disease, atrial fibrillation. Social History: CABG x25 years ago, carotid artery endarterectomy. Allergies: NO KNOWN DRUG ALLERGIES. Medications: Reviewed in the chart. Family History: Mother had heart disease. Social History: No tobacco. No alcohol use. Recently quit tobacco 30 years ago. No illicit drug u se. He is . Review of Systems: Ten-point review of systems essentially negative. All positives mentioned above in the HPI. Physical Examination: Vital Signs: Temperature 97.5, pulse 112, respirations 18, BP 191/88, and O2 saturations 94%. HEENT: Atraumatic. Normocephalic. Chest: Clear. Abdomen: Soft, but tender, and some ecchymosis suprapubically from his hernia repair. Iraheta cathete r draining clear urine. Extremities: Normal range of motion. Laboratory Studies: Now, sodium 142, potassium 3.4, chloride 104, carbon dioxide 28, BUN 26, creatin ine 1.0, GFR 70, glucose 221. Hematology shows white count 10.5, H and H 13 and 39, platelet count 2 27, coagulation PT slightly elevated at 116.6, INR 1.4, PTT 24. A blood gas showing pH 7.39, pCO2 27 , PO2 88, bicarb 16, base excess -8, on 21% oxygen on room air. UA showed 2+ blood, 1+ leukocyte est erase, nitrite negative. Specific gravity 1.020. Ketone negative. Assessment: Urinary retention postoperatively. Fortunately, his microbiology is not growing anythin g significant, probably had UTI. Continue treating with antibiotic and follow up in the hospital. Krys pathak is receiving Zosyn currently. We will also order a CT scan of the pelvis for CT cystogram with pos t drainage film to rule out bladder perforation. Clinically, the patient is doing very well. He has no acute abdomen. No white count. No fever now. No hematuria and is asking to go home. GÉNESIS/PERLA Voice ID: [id number] Report ID: [id number]
[2018-01-20] MEDS: ALPRAZOLAM 0.5 MG TABLET PO SCH (20:19)
[2018-01-20] MEDS: TAMSULOSIN 0.4 MG SR CAP PO SCH (20:20)
[2018-01-21] MEDS: Meropenem 500 MG in NA CHLORIDE 0.9% 100 ML IV SCH ×3 (01:04→17:37)
[2018-01-21 05:03] LABS: Absolute Lymphocytes (CBC) 3.1 K/uL (0.7-4.9); Absolute Monocytes 0.8 K/uL (0.1-1.3); Absolute Neutrophil 7.7 K/uL (1.8-8.0); Basophils % 0.8 % (0-1.3); Eosinophils % 3.1 % (0-4.4); Lymphocytes % 25.5 % (15.3-44.8); MCV 82.6 fL (80-100); MPV 8.8 fL (7.6-11.3); Monocytes % 6.6 % (3.3-12.3); RBC Red Blood Cell Count 3.63 M/uL (4.33-5.43)
[2018-01-21 05:06] LABS: Potassium 3.9 mEq/L (3.6-5.0)
[2018-01-21] MEDS: INSULIN -REGULAR HUMAN 50 UNIT/0.5 ML ML SQ SCH ×4 (07:30→20:54)
[2018-01-21] MEDS: FUROSEMIDE 40 MG TABLET PO SCH (10:29)
[2018-01-21] MEDS: POLYETHYL GLY 3350 17 GM/DOSE PO SCH (10:29)
[2018-01-21] MEDS: FINASTERIDE 5 MG TAB PO SCH (10:31)
[2018-01-21] MEDS: glipiZIDE 5 MG TAB PO SCH ×2 (10:31→17:37)
[2018-01-21] MEDS: APIXABAN 5 MG TABLET PO SCH ×2 (10:31→20:50)
[2018-01-21] MEDS: LISINOPRIL 10 MG TAB PO SCH (10:32)
[2018-01-21] MEDS: CARVEDILOL 25 MG TAB PO SCH ×2 (10:33→20:48)
[2018-01-21] MEDS: HYDROCODONE/APAP 7.5/325 MG TAB PO SCH ×3 (10:33→20:49)
[2018-01-21] MEDS: GABAPENTIN 400 MG CAP PO SCH ×2 (10:33→20:47)
[2018-01-21] MEDS: SERTRALINE HCL 100 MG TAB PO SCH (10:34)
[2018-01-21] MEDS: SPIRONOLACTONE 25 MG TABLET PO SCH (10:34)
[2018-01-21] MEDS: DOCUSATE NA 100 MG CAP PO SCH ×2 (10:35→20:47)
[2018-01-21 13:41] VITALS: O2SAT 96
--- NOTE | 2018-01-21 14:01 | P.DS ---
Admission Date: 01/14/18 Discharge Date: 01/21/18 Disposition: [facility]SFER TO [facility] Discharge Condition: GOOD Reason for Admission: sepsis - Problems (1) Sepsis Onset Date: 01/15/18 Current Visit: Yes Status: Acute Qualifiers: Sepsis type: sepsis due to unspecified organism Qualified Code(s): A41.9 - Sepsis, unspecified organism (2) Lower extremity edema Onset Date: 07/10/16 Current Visit: No Status: Acute (3) Weakness Onset Date: 07/18/16 Current Visit: No Status: Acute (4) Chronic obstructive pulmonary disease Onset Date: 06/04/17 Current Visit: No Status: Chronic Qualifiers: COPD type: COPD with acute exacerbation Qualified Code(s): J44.1 - Chronic obstructive pulmonary disease with (acute) exacerbation (5) Diabetes mellitus Onset Date: 06/04/17 Current Visit: No Status: Chronic Qualifiers: Diabetes mellitus type: type 2 Diabetes mellitus half-way insulin use: without dovetailer use Diabetes mellitus complication status: with unspecified complications Qualified Code(s): E11.8 - Type 2 diabetes mellitus with unspecified complications (6) Right kidney mass Onset Date: 06/04/17 Current Visit: No Status: Chronic (7) UTI (urinary tract infection) Onset Date: 09/05/17 Current Visit: No Status: Resolved Qualifiers: Urinary tract infection type: site unspecified Hematuria presence: without hematuria Qualified Code(s): N39.0 - Urinary tract infection, site not specified Brief History of Present Illness: Mr Suarez is a 72 years old male with several medical problems, mostly bed bound due to avascular necrosis of right hip, who start about 2 days ago to be progressively more lethargic and weak. He was more confused. The patient has had vomiting for the last couple of days, it was associated with fever, according to family member 103.0F at home. At arrival the patient was febrile 100.3, lab work remarkable for leukocytosis 17.6K, elevated procalcitonin, normal lactate. UA abnormal consistent with UTI. CT chest/abd/pelvis report suspected colitis, right renal mass, concerning for RCC. Hospital Course: During his stay in the hospital he was treated for sepsis secondary to UTI. He was started on Meropenem due to his history of ESBL, later urine culture reported E.Coli with ESBL. Gradually the patient was improving clinically, however, he remain weak and still needs significant assistance. The patient will be transferred to [facility] today. He needs to continue IV Meropenem for 10 more days to complete the 2 weeks IV treatment. At this point he is in stable condition to go to SNF. Vital Signs/Physical Exam: Temp Pulse Resp BP Pulse Ox 98.0 F 66 18 153/77 H 96 01/21/18 12:00 01/21/18 12:00 01/21/18 12:00 01/21/18 12:00 01/21/18 12:00 General: Alert, In no apparent distress HEENT: Atraumatic, PERRLA, EOMI Neck: Supple, JVD not distended Respiratory: Clear to auscultation bilaterally, Normal air movement Cardiovascular: Regular rate/rhythm, Normal S1 S2 Gastrointestinal: Normal bowel sounds, No tenderness Musculoskeletal: No tenderness Integumentary: No rashes Laboratory Data at Discharge: WBC 12.1 K/uL (4.3-10.9) H 01/21/18 04:11 Hgb 9.8 g/dL (13.6-17.9) L 01/21/18 04:11 Hct 30.0 % (39.6-49.0) L 01/21/18 04:11 Plt Count 379 K/uL (152-406) 01/21/18 04:11 PT 32.8 SECONDS (9.5-12.5) H 01/14/18 23:00 INR 2.75 01/14/18 23:00 APTT 52.2 SECONDS (24.3-36.9) H 01/14/18 23:00 Sodium 141 mEq/L (135-145) 01/21/18 04:11 Potassium 3.9 mEq/L (3.6-5.0) 01/21/18 04:11 BUN 17 mg/dL (6-20) 01/21/18 04:11 Creatinine 0.99 mg/dL (0.61-1.24) 01/21/18 04:11 Glucose 108 mg/dL (65-120) 01/21/18 04:11 Magnesium 2.0 mg/dL (1.8-2.5) 01/21/18 04:11 Total Bilirubin 0.3 mg/dL (0.3-1.2) 01/20/18 05:13 AST 18 IU/L (10-42) 01/20/18 05:13 ALT 23 IU/L (10-60) 01/20/18 05:13 Alkaline Phosphatase 76 IU/L (42-121) 01/20/18 05:13 B-Natriuretic Peptide 507 pg/ml (<=100) H 01/14/18 23:00 Lipase 13 U/L (22-51) L 01/14/18 23:00 Home Medications: Alprazolam 1 tab PO BEDTIME 01/15/18 Apixaban [Eliquis] 1 tab PO BID 01/15/18 Carvedilol 1 tab PO BID 01/15/18 Hydrocodone 7.5/APAP 325 [[place] 7.5/325 mg*] 1 tab PO TID 01/15/18 Ranolazine [Ranexa] 500 mg PO DAILY 01/15/18 Spironolactone 1 tab PO DAILY 01/15/18 Finasteride [Proscar] 5 mg PO DAILY 01/16/18 Furosemide [Lasix*] 40 mg PO DAILY 01/16/18 Gabapentin [Neurontin*] 400 mg PO BID 01/16/18 Glipizide [Glucotrol] 5 mg PO BID 01/16/18 Ipratropium/Albuterol Sulfate [Iprat-Albut 0.5-3(2.5) mg/3 ml] 3 ml IH Q6H PRN 01/16/18 Lisinopril [Prinivil*] 10 mg PO DAILY 01/16/18 Magnesium Oxide [Mag-Oxide] 400 mg PO BEDTIME 01/16/18 Ranolazine [Ranexa] 500 mg PO BID 01/16/18 Sertraline HCl 100 mg PO DAILY 01/16/18 Spironolactone [Aldactone] 25 mg PO DAILY 01/16/18 Tamsulosin HCl [Flomax] 0.4 mg PO BEDTIME 01/16/18 Zinc 2 tab PO DAILY 01/16/18 Meropenem [Merrem*] 500 mg IV Q8HR 10 Days vial 01/21/18 New Medications: Meropenem [Merrem*] 500 mg IV Q8HR 10 Days vial Diet: ADA Activity: Ad delio Time spent managing pt's care (in minutes): 40
[2018-01-21] MEDS ORDERED: WATER FOR INJ,STERILE 10 ML ONE (15:47)
[2018-01-21] MEDS: WATER FOR INJ,STERILE 10 ML ONE (15:50)
[2018-01-21] MEDS ORDERED: ALTEPLASE 2 MG/VIAL IV ONE (16:00)
[2018-01-21] MEDS: IPRATROPIUM BROM 0.5MG/2.5ML IH PRN (18:01)
[2018-01-21] MEDS: ALBUTEROL 2.5 MG/3 ML NEB SOL IH PRN (18:01)
[2018-01-21 20:26] VITALS: BP 161/81; TEMP 98.8
[2018-01-21] MEDS: TAMSULOSIN 0.4 MG SR CAP PO SCH (20:48)
[2018-01-21] MEDS: ALPRAZOLAM 0.5 MG TABLET PO SCH (20:49)
== END 2018-01-21 22:15 | DRG 872 ==
LOC: ER 20:46 → ERHOLD 23:16 → 4TH 01-15 01:46
PROVIDERS: ADMIT Internal Medicine; ATTEND Internal Medicine
DX: A41.51 Sepsis due to Escherichia coli [E. coli] (principal); N30.00 Acute cystitis without hematuria; J44.1 Chronic obstructive pulmonary disease with (acute) exacerbation; M87.851 Other osteonecrosis, right femur; C64.1 Malignant neoplasm of right kidney, except renal pelvis; Z16.12 Extended spectrum beta lactamase (ESBL) resistance; R60.9 Edema, unspecified; K52.9 Noninfective gastroenteritis and colitis, unspecified; E11.9 Type 2 diabetes mellitus without complications; I11.0 Hypertensive heart disease with heart failure; E78.2 Mixed hyperlipidemia; R53.1 Weakness; I48.2 Chronic atrial fibrillation; N40.1 Benign prostatic hyperplasia with lower urinary tract symptoms; Z79.4 Long term (current) use of insulin; Z74.01 Bed confinement status; I50.9 Heart failure, unspecified
CPT/HCPCS: 36415; 71045; 71250; 74176; 80048; 80053; 80076; 81003; 82550; 82553; 82962; 83605; 83690; 83735; 83880; 84132; 84145; 84484; 85025; 85610; 85730; 87040; 87077; 87086; 87088; 87186; 93005; 93970; 94640; 94760; 96365; 96366; 96375; 97163; 99285; J0692; J2405; J2997; J3475; J7030

== ENCOUNTER 2018-10-04 14:43 | Emergency (ER) | payer OTHER ==
--- OUTSIDE RECORDS SUMMARY | 2018-10-04 14:46 | XMS REPORT | Clinical Summary ---
:1945 Author Organization [facility] Address [address] [place] [address] Care Team Providers Name Role Phone Orlando Altman MD Primary Care Provider Allergies Active Allergy Reactions Severity Noted Date Comments Hydromorphone (Bulk) Other (See Comments) 10/12/2013 "hot and cold sweat" Medications Medication Sig Dispensed Refills Start Date End Date Status sertraline (ZOLOFT) Take 100 mg 0 Active 50 MG tablet by mouth daily . ranolazine (RANEXA) Take 500 mg 0 Active 1,000 mg SR tablet by mouth 2 (two) times daily. niacin (NIASPAN) 1000 Take 1,000 0 Active MG CR tablet mg by mouth nightly. carvedilol (COREG) 25 Take 25 mg 0 Active MG tablet by mouth daily . lisinopril Take 20 mg 0 Active (PRINIVIL,ZESTRIL) 20 by mouth 2 MG tablet (two) times daily . tamsulosin (FLOMAX) Take 0.4 mg 0 Active 0.4 mg Cp24 24 hr by mouth capsule daily. spironolactone Take 25 mg 0 Active (ALDACTONE) 25 MG by mouth tablet daily. gabapentin Take 300 mg 0 Active (NEURONTIN) 300 MG by mouth 3 capsule (three) times daily. omeprazole (PRILOSEC) Take 20 mg 0 Active 20 MG capsule by mouth daily. promethazine Take 25 mg 0 Active (PHENERGAN) 25 MG by mouth tablet every 8 (eight) hours as needed for Nausea. aspirin 81 MG EC Take 81 mg 0 Active tablet by mouth daily. furosemide (LASIX) 40 Take 40 mg 0 Active MG tablet by mouth 2 (two) times daily. glipiZIDE (GLUCOTROL) Take 5 mg by 0 Active 10 MG tablet mouth 2 (two) times daily before meals. minoxidil (LONITEN) Take 2.5 mg 0 Active 2.5 MG tablet by mouth 2 (two) times daily. atorvastatin Take 40 mg 0 Active (LIPITOR) 40 MG by mouth tablet daily. ALPRAZolam (XANAX) Take 1 mg by 0 Active 0.5 MG tablet mouth every night as needed for Anxiety. glimepiride (AMARYL) Take 2 mg by 0 Active 2 MG tablet mouth 2 (two) times daily. sotalol AF (BETAPACE Take 80 mg 0 Active AF) 80 MG tablet by mouth 2 (two) times daily. apixaban (ELIQUIS) 5 Take 5 mg by 0 Active mg Tab tablet mouth 2 (two) times daily. metOLazone Take 5 mg by 0 12/23/2017 Discontinued (ZAROXOLYN) 5 MG mouth daily. tablet Active Problems Problem Noted Date Shortness of breath 12/23/2017 HTN (hypertension) 02/27/2017 CAD (coronary artery disease) 02/27/2017 Hyperlipidemia 02/27/2017 COPD (chronic obstructive pulmonary disease) 02/27/2017 Atrial flutter 02/27/2017 Diabetes 02/27/2017 Tricuspid regurgitation 02/27/2017 Chest pain 11/09/2013 Encounters Date Type Specialty Care Team Description 12/23/2017 Surgery Emmanuel Schuster L CATH & CORONARY ANGIOS MD 12/23/2017 Hospital Encounter Emmanuel Schuster MD 12/20/2017 Orders Only Cardiology Emmanuel Schuster MD after 10/03/2017 Social History Tobacco Use Types Packs/Day Years Used Date Former Smoker Cigarettes 1 Smokeless Tobacco: Never Used Tobacco Cessation: Ready to Quit: No Comments: in 2017 Alcohol Use Drinks/Week oz/Week Comments No Sex Assigned at Date Recorded Not on file Job Start Date Occupation Industry Not on file Not on file Not on file Travel History Travel Start Travel End No recent travel history available. Last Filed Vital Signs Vital Sign Reading [...] Not on file Implants Implanted Type Area Printed Circuit Board Designer Device Shelf Model / Identifier Expiration Serial / Date Lot Device Clsr Andre Glassnx 5fr [id number] - [id number] Cardiovascular Right: ACCESS CLOSURE 10/30/2019 [id number] / Implanted: Qty: 1 on 12/23/2017 by Emmanuel Schuster MD Groin / [id number] Procedures Procedure Name Priority Date/Time Associated Diagnosis Comments VASCULAR DIAGRAM -SCAN 01/23/2018 1:26 PM CDT VASCULAR DIAGRAM -SCAN 01/23/2018 10:21 AM CDT CARDIAC CATH REPORT - 12/25/2017 8:31 PM SCAN CDT TRANSFUSION SERVICE 12/24/2017 5:55 PM REPORT - SCAN CDT L CATH & CORONARY ANGIOS 12/23/2017 10:52 AM I25.10 CDT Case Notes 2CASE POP6 POSS PCI CBC W/PLT COUNT & AUTO STAT 12/23/2017 7:23 AM CDT Results for this DIFFERENTIAL procedure are in the results section. TYPE AND SCREEN, AUTOMATED Routine 12/23/2017 7:23 AM CDT BASIC METABOLIC PANEL (7) STAT 12/23/2017 7:23 AM CDT CBC W/PLT COUNT & AUTO STAT 12/23/2017 7:23 AM CDT Results for this DIFFERENTIAL procedure are in the results section. after 10/03/2017 Results VASCULAR DIAGRAM -SCAN (01/23/2018 1:26 PM CDT)Only the most recent of2 resultswithin the time period is included. Narrative Performed At CARDIAC CATH REPORT - SCAN (12/25/2017 8:31 PM CDT) Narrative Performed At TRANSFUSION SERVICE REPORT - SCAN (12/24/2017 5:55 PM CDT) Narrative Performed At Type and screen, automated (12/23/2017 7:23 AM CDT) ABO/RH AUTOMATED (BEAKER) O POSITIVE [facility] Ab Scrn NEGATIVE [facility] Specimen Blood Performing Organization Address City/State/Zipcode Phone Number [facility] [address] [place] [address] CBC with platelet count + automated diff (12/23/2017 7:23 AM CDT) WBC 9.9 3.5 - 10.5 K/L [facility] RBC 3.81 (L) 4.63 - 6.08 M/L [facility] Hemoglobin 10.6 (L) 13.7 - 17.5 GM/DL [facility] Hematocrit 32.7 (L) 40.1 - 51.0 % [facility] MCV 85.8 79.0 - 92.2 fL [facility] MCH 27.8 25.7 - 32.2 pg [facility] MCHC 32.4 32.3 - 36.5 GM/DL [facility] RDW 16.5 (H) 11.6 - 14.4 % [facility] Platelets 233 150 - 450 K/CU MM [facility] MPV 10.2 9.4 - 12.4 fL [facility] nRBC 0 0 - 0 /100 WBC [facility] % Neutros 62 % [facility] % Lymphs 26 % [facility] % Monos 7 % [facility] % Eos 3 % [facility] % Baso 0 % [facility] # Neutros 6.11 (H) 1.78 - 5.38 K/L [facility] # Lymphs 2.59 1.32 - 3.57 K/L [facility] # Monos 0.73 0.30 - 0.82 K/L [facility] # Eos 0.34 0.04 - 0.54 K/L [facility] # Baso 0.04 0.01 - 0.08 K/L [facility] Immature Granulocytes-Relative 1 0 - 1 % [facility] Specimen Blood Performing Organization Address City/State/Zipcode Phone Number [facility] [address] [place] [address] [place] Basic Metabolic Panel (12/23/2017 7:23 AM CDT) Sodium 140 136 - 145 meq/L [facility] Potassium 3.7 3.5 - 5.1 meq/L [facility] Chloride 106 98 - 107 meq/L [facility] CO2 26 22 - 29 meq/L [facility] BUN 18 7 - 21 mg/dL [facility] Creatinine 0.93 0.57 - 1.25 mg/dL [facility] Glucose 118 (H) 70 - 105 mg/dL [facility] Calcium 9.0 8.4 - 10.2 mg/dL [facility] EGFR 79Comment: ESTIMATED GFR IS mL/min/1.73 sq m [facility] NOT ACCURATE CREATININE [facility] CLEARANCE IN PREDICTING GLOMERULAR FILTRATION RATE. ESTIMATED GFR IS NOT APPLICABLE FOR DIALYSIS PATIENTS. Specimen Blood Performing Organization Address City/State/Zipcode Phone Number [facility] [address] [place] [address] [phone] [place] after 10/03/2017 Insurance Payer Benefit Plan / Group Subscriber ID Type Phone Address CARE IMPROVEMENT MEDICARE MGD CARE IMPROVEMENT PLUS xxxxxxxxx CARE Advance Directives For more information, please contact:[place] [address] [place], [place] [phone] Code Status Date Activated Date Inactivated Comments Full Code 12/23/2017 11:29 AM 12/23/2017 4:21 PM This code status was determined by: Patient Full Code 12/23/2017 6:38 AM 12/23/2017 11:29 AM This code status was determined by: Patient Code ONE 10/12/2013 6:40 AM 10/12/2013 5:48 PM All possible means of support including;cardiac massage, mechanical ventilation, and defibrillation will be used to support life.
--- OUTSIDE RECORDS SUMMARY | 2018-10-04 14:47 | XMS REPORT | Continuity of Care Document ---
:1945 Author Organization Interface Problems Problem Status Onset Classification Date Comments Source Date Reported FALL/SOB Active 01/09/[address] Atrial flutter Active Problem 01/14/2016 [facility] CHF (<span Resolved Problem 01/14/2016 ID="[id number]"> [facility] Confirmed</span>) Cholecystectomy Active Problem 01/14/2016 [facility] COPD Active Problem 01/14/2016 [facility] [place] Current smoker Active Problem 01/14/2016 [facility] [place] DM , type 2(<span Resolved Problem 01/14/2016 ID="[id number]"> [facility] Confirmed</span>) DM - Diabetes Active Problem 01/14/2016 mellitus [facility] History of repair Active Problem 01/14/2016 of umbilical [facility] hernia HLD (<span Resolved Problem 01/14/2016 ID="[id number]"> [facility] Confirmed</span>) HTN (<span Resolved Problem 01/14/2016 ID="[id number]"> 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 [facility] PNEUMONIA, Active [facility] UNSPECIFIED [facility] ORGANISM Medications Medication Details Route Status Patient Ordering Order Source Instructions Provider Date carvedilol 12.5 12.5 mg=1 tab, Active mg oral tablet PO, Q12H, # 60 2015 tab, 0 Refill(s) predniSONE 20 40 mg=2 tab, Active mg oral tablet PO, Daily, X 7 2015, # 14 tab, 0 Refill(s) Cefuroxime 500 500 mg=1 tab, Active MG Oral Tablet PO, BID, X 7 2015, # 14 tab, 0 Refill(s) Nebulizer 1 ea, MISC, Active ONCALL, # 1 ea, 2015 0 Refill(s) Albuterol 0.83 2.49 mg=3 mL, Active MG/ML Inhalant INHALATION, 2015 Solution Q6H, # 120 ea, 0 Refill(s) Advair Diskus 1 puff, Active 250 mcg-50 mcg INHALATION, 2015 [facility] inhalation BID, # 1 ea, 0 powder Refill(s) remove patch 1 patch, Route: Inactive TOP, Drug form: 2015 [facility] ERFILM, Daily, Start date: 01/11/16 9:00:00 CDT, Duration: 30 day, Stop date: 02/09/16 9:00:00 CDTNotes: Remove old patch before application of new patch. WASTE: F/P - P Waste Black; E - P Waste Black Levemir 12 unit, 0.12 No Longer mL, Route: Active 2015 [facility] SUB-Q, Drug form: INJ, Q12H, Dosing Weight 106.506, kg, Start date: 01/10/16 21:00:00 CDT, Duration: 30 day, Stop date: 02/09/16 9:00:00 CDTNotes: Same as Levemir Do not hold insulin without contacting prescriber WASTE: F/P - Black; E - Municipal Trash Bin "single patient use only" Nicotine 21 mg, 1 patch, No Longer Route: TOP, Active 2015 [facility] Drug form: ERFILM, Daily, Dosing Weight 106.506, kg, Start date: 01/10/16 16:00:00 CDT, Duration: 30 day, Stop date: 02/09/16 9:00:00 CDTNotes: (Same as: Habitrol) "Remove old patch before application of new patch" WASTE: F/P - P Waste Black; E - P Waste Black Omeprazole 20 mg, Route: No Longer PO, Daily, Active 2015 [facility] Dosing Weight 107.273, kg, Start date: 01/10/16 9:00:00 CDT, Duration: 30 day, Stop date: 02/08/16 9:00:00 CDT Lisinopril 20 mg, 1 tab, Inactive Route: PO, Drug 2015 [facility] form: TAB, Daily, Dosing Weight 107.273, kg, Start date: 01/10/16 9:00:00 CDT, Duration: 30 day, Stop date: 02/08/16 9:00:00 CDTNotes: (Same as: Prinivil, Zestril) Coreg 12.5 mg, 1 tab, No Longer Route: PO, Drug Active 2015 [facility] form: TAB, Q12H, Dosing Weight 106.506, kg, Priority: NOW, Start date: 01/10/16 8:06:00 CDT, Duration: 30 day, Stop date: 02/08/16 21:00:00 CDTNotes: Give with food. (Same As: Coreg) Rocephin 1 gm, Route: No Longer IVPB, [id number], Active 2015 [facility] Dosing Weight 107.273, kg, Start date: 01/10/16 3:00:00 CDT, Duration: 30 day, Stop date: 02/08/16 3:00:00 CDTNotes: (Same As: Rocephin). Use with 100 mL NS and infuse over 30 min MEDICATION WASTE Product Size: 1000 mg Product Wasted: ___ mg Levofloxacin 750 mg, 150 mL, No Longer Route: IVPB, Active 2015 [facility] Drug form: SOLN, [id number], Dosing Weight 107.273, kg, Start date: 01/10/16 3:00:00 CDT, Duration: 30 day, Stop date: 02/08/16 3:00:00 CDTNotes: (Same as:Levaquin) atorvastatin 40 mg, 1 tab, No Longer Route: PO, Drug Active 2015 [facility] form: TAB, Bedtime, Dosing Weight 107.273, kg, Start date: 01/09/16 21:00:00 CDT, Duration: 30 day, Stop date: 02/07/16 21:00:00 CDTNotes: (Same as: Lipitor) tamsulosin 0.4 mg, 1 cap, No Longer Route: PO, Drug Active 2015 [facility] form: CAP, Daily, Dosing Weight 107.273, kg, Start date: 01/09/16 21:00:00 CDT, Duration: 30 day, Stop date: 02/07/16 21:00:00 CDTNotes: (Same As: Flomax) "Do Not Crush" Sotalol 80 mg, 1 tab, No Longer Hydrochloride Route: PO, Drug Active 2015 [facility] form: TAB, BID, Dosing Weight 107.273, kg, Start date: 01/09/16 21:00:00 CDT, Duration: 30 day, Stop date: 02/08/16 9:00:00 CDTNotes: (Same As: Betapace) Sertraline 100 mg, 2 tab, No Longer Route: PO, Drug Active 2015 [facility] form: TAB, Bedtime, Dosing Weight 107.273, kg, Start date: 01/09/16 21:00:00 CDT, Duration: 30 day, Stop date: 02/07/16 21:00:00 CDTNotes: (Same as: Zoloft) Ranexa 500 mg, 1 tab, No Longer Route: PO, Drug Active 2015 [facility] form: TAB, BID, Dosing Weight 107.273, kg, Start date: 01/09/16 21:00:00 CDT, Duration: 30 day, Stop date: 02/08/16 9:00:00 CDTNotes: Same as Ranexa "Do Not Crush" Metoprolol 5 mg, 5 mL, Inactive Route: IV, Drug 2015 [facility] form: INJ, ONCE, Dosing Weight 106.506, kg, Start date: 01/09/16 16:56:00 CDT, Stop date: 01/09/16 16:56:00 CDTNotes: (Same as: Lopressor) Push over 2 minutes Protonix 40 mg, 1 tab, No Longer Route: PO, Drug Active 2015 [facility] form: ECTAB, Before Dinner, Start date: 01/09/16 16:30:00 CDT, Duration: 30 day, Stop date: 02/07/16 16:30:00 CDTNotes: Tablet should not be chewed or crushed. (Same as: Protonix) Furosemide 40 40 mg, 1 tab, No Longer MG Oral Tablet Route: PO, Drug Active 2015 [facility] form: TAB, BID Diuretic, Dosing Weight 107.273, kg, Start date: 01/09/16 16:00:00 CDT, Duration: 30 day, Stop date: 02/08/16 8:00:00 CDTNotes: (Same as: Lasix) May cause GI upset. Give with food or milk. Solu-Medrol 40 mg, 1 mL, No Longer Route: IVP, Active 2015 [facility] Drug form: INJ, Q8H, Dosing Weight 107.273, kg, Start date: 01/09/16 16:00:00 CDT, Duration: 30 day, Stop date: 02/08/16 8:00:00 CDTNotes: (Same as:Solu-MEDROL, A-Methapred) gabapentin 300 300 mg, 1 cap, No Longer MG Oral Capsule Route: PO, Drug Active 2015 [facility] form: CAP, TID, Dosing Weight 107.273, kg, Start date: 01/09/16 14:00:00 CDT, Duration: 30 day, Stop date: 02/08/16 6:00:00 CDTNotes: (Same as: Neurontin) Aspirin 81 MG 81 mg, 1 tab, No Longer Enteric Coated Route: PO, Drug Active 2015 [facility] Tablet form: ECTAB, Daily, Dosing Weight 107.273, kg, Start date: 01/09/16 14:00:00 CDT, Duration: 30 day, Stop date: 02/08/16 9:00:00 CDTNotes: Do not crush or chew. (Same As: Ecotrin) Insulin, 2 unit, 0.02 No Longer Aspart, Human mL, Route: Active 2015 [facility] SUB-Q, Drug form: SOLN, Bedtime, Dosing Weight 107.273, kg, PRN Blood Glucose Results, Start date: 01/09/16 9:17:00 CDT, Duration: 30 day, Stop date: 02/08/16 9:16:00 CDTNotes: Roll in palms of hands gently; Do not shake vigorously. (Same as: NovoLOG) "single patient use only" WASTE: F/P - Black; E - Municipal Trash Bin Stable for 28 days at room temperature. Expires in days from D ate Dextrose 50% 12.5 gm, 25 mL, No Longer 04/11/ [facility] Syringe Route: IVP, Active 2015 [facility] Drug Form: INJ, Dosing Weight 107.273, kg, PRN, PRN Blood Glucose Results, Start date: 01/09/16 9:17:00 CDT, Duration: 30 day, Stop date: 02/08/16 9:16:00 CDT Glucagon 1 mg, Route: No Longer IM, Drug form: Active 2015 [facility] PDR/INJ, PRN, Dosing Weight 107.273, kg, PRN Blood Glucose Results, Start date: 01/09/16 9:17:00 CDT, Duration: 30 day, Stop date: 02/08/16 9:16:00 CDT Albuterol 0.833 3 ml, Route: No Longer MG/ML / NEB, Drug Form: Active 2015 [facility] Ipratropium SOLN, Dosing [place] 0.167 Weight 107.273, MG/ML Inhalant kg, PRN, PRN Solution Respiratory [DuoNeb] Protocol, Start date: 01/09/16 9:11:00 CDT, Duration: 30 day, Stop date: 02/08/16 9:10:00 CDTNotes: (Same as: Duoneb) Enoxaparin 40 mg, 0.4 mL, No Longer Route: SUB-Q, 2015 [facility] Drug form: INJ, [id number], Dosing Weight 107.273, kg, Start date: 01/09/16 9:00:00 CDT, Duration: 30 day, Stop date: 02/07/16 9:00:00 CDTNotes: (Same as: Lovenox) Alprazolam 0.5 1 mg=2 tab, PO, No Longer MG Oral Tablet Bedtime, [address] [facility] Refill(s) Furosemide 40 40 mg=1 tab, Active MG Oral Tablet PO, BID, [address] [facility] Refill(s) minoxidil 2.5 2.5 mg=1 tab, No Longer mg oral tablet PO, BID, [address] [facility] Refill(s) Potassium 20 mEq=1 tab, No Longer Chloride 20 MEQ PO, BID, [address] [facility] Extended Refill(s) Release Tablet atorvastatin 40 40 mg=1 tab, Active mg oral tablet PO, Bedtime, [address] [facility] Refill(s) tamsulosin 0.4 0.4 mg=1 cap, Active mg oral capsule PO, Daily, [address] [facility] Refill(s) sertraline 100 100 mg=1 tab, Active mg oral tablet PO, Bedtime, 0 2015 Refill(s) promethazine 25 25 mg=1 tab, No Longer mg oral tablet PO, Q8H, PRN Active 2015 Nausea, 0 Refill(s) carvedilol 25 25 mg=1 tab, No Longer mg oral tablet PO, Daily, [address] [facility] Refill(s) Omeprazole 20 mg, PO, Active Daily, [address] [facility] Refill(s) gabapentin 300 300 mg=1 cap, Active MG Oral Capsule PO, TID, [address] [facility] Refill(s) glimepiride 2 2 mg=1 tab, PO, No Longer mg oral tablet BID, [address] [facility] Refill(s) niacin 500 mg 1,000 mg=2 tab, Active oral tablet PO, Bedtime, [address] [facility] Refill(s) lisinopril 20 20 mg=1 tab, Active mg oral tablet PO, Daily, [address] [facility] Refill(s) Aspirin 81 MG 81 mg=1 tab, Active Enteric Coated PO, Daily, # [address] [facility] Tablet tab, 3 Refill(s) Sotalol 80 mg=1 tab, Active Hydrochloride PO, BID, 0 2015 AF 80 mg oral Refill(s) tablet Ranexa 500 mg, PO, Active BID, [address] [facility] Refill(s) Glipizide 10 MG 5 mg=0.5 tab, No Longer Oral Tablet PO, BID, [address] [facility] Refill(s) dextromethorpha 10 mL, Route: No Longer n-guaiFENesin PO, Drug Form: Active 2015 [facility] 10 mg-100 mg/5 LIQ, Dosing mL oral liquid Weight 107.273, kg, Q4H, PRN Cough, Start date: 01/09/16 4:24:00 CDT, Duration: 30 day, Stop date: 02/08/16 4:23:00 CDTNotes: (dextromethorph an-guaifenesin 10-100/5 ml LIQ) (Same as: Robitussin-DM) Ondansetron 4 mg, 2 mL, No Longer Route: IVP, Active 2015 [facility] Drug form: INJ, Q6H, Dosing Weight 107.273, kg, PRN Nausea & Vomiting, Start date: 01/09/16 4:24:00 CDT, Duration: 30 day, Stop date: 02/08/16 4:23:00 CDTNotes: (Same as: Zofran) MEDICATION WASTE Product Size: 4 mg Product Wasted: ___ mg Acetaminophen 650 mg, 2 tab, No Longer Route: PO, Drug Active 2015 [facility] form: TAB, Q4H, Dosing Weight 107.273, kg, PRN Pain Score 1-3, For fever > 100.4. Not to exceed 4 grams in 24 hours, Start date: 01/09/16 4:24:00 CDT, Duration: 30 day, Stop date: 02/08/16 4:23:00 CDTNotes: Do not exceed 4 gm/day. (Same as: Tylenol) Levofloxacin 750 mg, 150 mL, Inactive Route: IV, Drug 2015 [facility] form: SOLN, ONCE, Dosing Weight 107.273, kg, Start date: 01/09/16 2:39:00 CDT, Stop date: 01/09/16 2:39:00 CDTNotes: (Same as:Levaquin) Ceftriaxone 1 gm, Route: Inactive IVPB, Drug 2015 [facility] form: PDR/INJ, ONCE, Dosing Weight 107.273, kg, Priority: STAT, Start date: 01/09/16 2:39:00 CDT, Stop date: 01/09/16 2:39:00 CDTNotes: (Same As: Rocephin). Use with 100 mL NS and infuse over 30 min MEDICATION WASTE Product Size: 1000 mg Product Wasted: ___ mg Albuterol 0.833 3 mL, Route: Inactive MG/ML / INHALATION, 2015 [facility] Ipratropium Drug Form: [place] 0.167 SOLN, Dosing MG/ML Inhalant Weight 107.273, Solution kg, ONCE, Start [DuoNeb] date: 01/09/16 1:51:00 CDT, Stop date: 01/09/16 1:51:00 CDTNotes: (Same as: Duoneb) Tylenol 1,000 mg, 2 Inactive tab, Route: PO, 2015 [facility] Drug form: TAB, ONCE, Dosing Weight 107.273, kg, Priority: STAT, Start date: 01/09/16 1:51:00 CDT, Stop date: 01/09/16 1:51:00 CDTNotes: Max acetaminophen 4000 mg/day (4 gm/day). (Same as: Tylenol Extra Strength) Saline Flush 10 mL, Route: No Longer 0.9% IVP, Drug Form: Active 2015 [facility] INJ, Dosing Weight 107.273, kg, PRN, PRN Line Flush, Start date: 01/09/16 1:46:00 CDT, Duration: 30 day, Stop date: 02/08/16 1:45:00 CDTNotes: (Same as: BD Posiflush) Allergies, Adverse Reactions, Alerts Substance Category Reaction Severity Reaction Status Date Comments Source type Reported Dilaudid Assertion Drug Active allergy [facility] Immunizations Immunization Date Given Site Status Last Updated Comments Source Results Order Name Results Value Reference Date Interpretation Comments Source Range CHEM PANEL BUN 34 mg/dL 7 - 22 01/10 [facility] CHEM PANEL Glucose Lvl 294 mg/dL 70 - 99 01/10 [facility] CHEM PANEL eGFR 61 01/10 Result Comment: The eGFR is calculated using the CKD-EPI formula. In most young, healthy individuals the eGFR will be >90 mL/ min/1.73m2. The eGFR declines with age. An eGFR of 60-89 may be normal in mL/min/1. some populations, particularly the elderly, for whom the CKD-EPI formula has not been extensively validated. Use of the eGFR is not recommended in the following populations: [facility] 3m2 Individuals with unstable creatinine concentrations, including patients and those with serious co-morbid conditions. Patients with extremes in muscle mass or diet. The data above are obtained from the National Kidney Disease Education Program (NKDEP) which additionally recommends that when the eGFR is used in patients with extremes of body mass index for purposes of drug dosing, the eGFR should be multiplied by the estimated BMI. CHEM PANEL Calcium Lvl 9.0 mg/dL 8.5 - 10.5 01/10 [facility] CHEM PANEL AGAP 11.7 meq/L 10.0 - 01/10 [facility] 20.0 /2015 [facility] CHEM PANEL Sodium Lvl 138 meq/L 135 - 145 01/10 [facility] CHEM PANEL Creatinine 1.18 mg/dL 0.50 - 01/10 Lvl 1.40 /2015 [facility] CHEM PANEL Chloride Lvl 105 meq/L 95 - 109 01/10 [facility] CHEM PANEL Potassium 3.7 meq/L 3.5 - 5.1 01/10 Lvl /2015 [facility] CHEM PANEL CO2 25 meq/L 24 - 32 01/10 [facility] HEMATOLOGY MPV 8.8 fL 7.4 - 10.4 01/10 [facility] HEMATOLOGY RDW 18.1 % 11.5 - 01/[address] [facility] HEMATOLOGY MCH 26.2 pg 27.0 - 01/[address] [facility] HEMATOLOGY MCHC 32.6 g/dL 32.0 - 01/[address] [facility] HEMATOLOGY Platelet 331 K/CMM 133 - 450 01/10 [facility] HEMATOLOGY Hct 32.4 % 42.0 - 01/10 54.0 /2015 [facility] HEMATOLOGY Hgb 10.6 g/dL 14.0 - 01/[address] [facility] HEMATOLOGY MCV 80.4 fL 80.0 - 01/[address] [facility] HEMATOLOGY RBC 4.03 M/CMM 4.70 - 01/10 [facility] 6.10 /2015 [facility] HEMATOLOGY WBC 22.3 K/CMM 3.7 - 10.4 01/10 [facility] Chest Chest 1view Clinical Indication: Pneumonia 01/10 - 1view DX DX /2015 - [facility] Comparison: 01/10/2016 Read by: Ron Orellana DO Dictated Date/time: 01/11/16 06:57 FINDINGS: Electronically Signed by: Ron Orellana DO 01/11/16 06:58 FINAL REPORT AP chest radiograph was obtained. HEART: Mild cardiomegaly. PULMONARY VASCULATURE: Mild pulmonary vasculature congestion versus perihilar infiltrates. LUNGS: Lung volumes are maintained. There are no pneumothoraces noted. Costophrenic sulci: -Right costophrenic sulcus: The right costophrenic sulcus is sharp without evidence for pleural effusions or thickening. -Left costophrenic sulcus: The left costophrenic sulcus is sharp without evidence for pleural effusions or thickening. BONES: The visualized osseous structures are unremarkable. IMPRESSION: 1. Mild cardiomegaly with mild pulmonary vascular congestion versus nonspecific airspace infiltrate. This is slightly improved when compared to the prior study. SL: [facility] HEMATOLOGY MCH 26.4 pg 27.0 - 01/09 [facility] 31.0 /2015 [facility] HEMATOLOGY MCHC 32.5 g/dL 32.0 - 01/09 [facility] 36.0 /2015 [facility] HEMATOLOGY MCV 81.2 fL 80.0 - 01/09 94.0 /2015 [facility] HEMATOLOGY Platelet 270 K/CMM 133 - 450 01/09 [facility] HEMATOLOGY MPV 8.3 fL 7.4 - 10.4 01/09 /2015 [facility] HEMATOLOGY RDW 18.1 % 11.5 - 01/09 14.5 /2015 [facility] HEMATOLOGY WBC 15.8 K/CMM 3.7 - 10.4 01/09 [facility] HEMATOLOGY RBC 4.13 M/CMM 4.70 - 01/09 MH 6.10 /2015 [facility] HEMATOLOGY Hct 33.5 % 42.0 - 01/09 MH 54.0 /2015 [facility] HEMATOLOGY Hgb 10.9 g/dL 14.0 - 01/[address] [facility] ELECTROLYT AGAP 9.9 meq/L 10.0 - 01/09 ES 20.0 /2015 [facility] ELECTROLYT eGFR 65 01/09 Result Comment: The eGFR is calculated using the CKD-EPI formula. In most young, healthy individuals the eGFR will be >90 mL/ min/1.73m2. The eGFR declines with age. An eGFR of 60-89 may be normal in ES mL/min/1.7 /2015 some populations, particularly the elderly, for whom the CKD-EPI formula has not been extensively validated. Use of the eGFR is not recommended in the following populations: [place] [id number] Individuals with unstable creatinine concentrations, including patients and those with serious co-morbid conditions. Patients with extremes in muscle mass or diet. The data above are obtained from the National Kidney Disease Education Program (NKDEP) which additionally recommends that when the eGFR is used in patients with extremes of body mass index for purposes of drug dosing, the eGFR should be multiplied by the estimated BMI. ELECTROLYT Calcium Lvl 8.6 mg/dL 8.5 - 10.5 01/[address] [facility] ELECTROLYT Glucose Lvl 209 mg/dL 70 - 99 01/[address] [facility] ELECTROLYT BUN 23 mg/dL 7 - 22 01/[address] [facility] ELECTROLYT Creatinine 1.12 mg/dL 0.50 - 01/09 [facility] Lvl 1.40 /2015 [facility] ELECTROLYT Sodium Lvl 139 meq/L 135 - 145 01/09 [facility] ELECTROLYT Potassium 3.9 meq/L 3.5 - 5.1 01/09 [facility] Lvl /2015 [facility] ELECTROLY Chloride Lvl 107 meq/L 95 - [address] [facility] ELECTROLYT CO2 26 meq/L 24 - 32 01/[address] [facility] VIRAL - Influ B Negative Negative 01/[address] [facility] (01/10/16 5:04 AM) VIRAL - Influ A Negative Negative 01/[address] [facility] (01/10/16 5:04 AM) Chest Chest 1view Study: Chest 1view DX 01/10/2016 3:00 AM CDT 01/09 [facility] 1view DX DX - [facility] Ordering Physician: Artemio Lopez MD Clinical Indication: Pneumonia Read by: Sofiya Saez MD Dictated Date/time: 01/10/16 05:45 Comparison: 01/09/2016 Electronically Signed by: Sofiya Saez MD 01/10/16 05:47 FINAL REPORT FINDINGS: Heart size upper limit of normal or mildly enlarged, with mild tortuosity of the aorta. Interstitial markings are prominent. A small patchy infiltrate is suspected in left lung base. No pleural effusion is visualized. Regional osseous structures are unremarkable. No soft tissue abnormalities are seen. IMPRESSION: A small patchy infiltrate is suspected in the left lung base, new as compared to the previous study. Heart size upper limit of normal or mildly enlarged. SL: [id number] CHEM PANEL eGFR 56 01/08 Result Comment: The eGFR is calculated using the CKD-EPI formula. In most young, healthy individuals the eGFR will be >90 mL/ min/1.73m2. The eGFR declines with age. An eGFR of 60-89 may be normal in mL/min/1.7 /2016 some populations, particularly the elderly, for whom the CKD-EPI formula has not been extensively validated. Use of the eGFR is not recommended in the following populations: [facility] 3m2 Individuals with unstable creatinine concentrations, including patients and those with serious co-morbid conditions. Patients with extremes in muscle mass or diet. The data above are obtained from the National Kidney Disease Education Program (NKDEP) which additionally recommends that when the eGFR is used in patients with extremes of body mass index for purposes of drug dosing, the eGFR should be multiplied by the estimated BMI. CHEM PANEL Creatinine 1.28 mg/dL 0.50 - 01/[address] [facility] HEMATOLOGY PTT 49.7 s 22.9 - 01/08 MH 35.8 /2015 [facility] HEMATOLOGY Platelet 242 K/CMM 133 - 450 01/08 [facility] CHEM PANEL Procalcitoni 0.32 ng/mL 0.00 - 01/08 [address] L[address] [facility] VIRAL - Influ A Negative Negative 01/[address] [facility] (01/09/16 4:21 AM) VIRAL - Influ B Negative Negative 01/[address] [facility] (01/09/16 4:21 AM) CHEM PANEL Lactic Acid 0.9 mMol/L 0.5 - 2.2 01/[address] [facility] CARDIAC Troponin-I 0.07 ng/mL 0.00 - 01/[address] [facility] CARDIAC CK MB 0.9 ng/mL 0.5 - 3.6 01/[address] [facility] CARDIAC Total CK 122 unit/L 12 - 191 01/[address] [facility] CARDIAC BNP 217 pg/mL <=100 01/08 EN[facility] pg/mL /2015 [facility] CARDIAC CK MB Index 0.7 0.0 - 2.5 01/[address] [facility] CHEM PANEL Glucose Lvl 114 mg/dL 70 - 99 01/08 [facility] CHEM PANEL BUN 20 mg/dL 7 - 22 01/08 [facility] CHEM PANEL Potassium 4.2 meq/L 3.5 - 5.1 01/08 Lvl /2015 [facility] CHEM PANEL Sodium Lvl 137 meq/L 135 - 145 01/08 [facility] CHEM PANEL A/G Ratio 0.8 0.7 - 1.6 01/08 [facility] CHEM PANEL Globulin 4.3 g/dL 2.0 - 4.0 01/08 [facility] CHEM PANEL B/C Ratio 15 6 - 25 01/08 [facility] CHEM PANEL Bili Total 0.9 mg/dL 0.2 - 1.3 01/08 [facility] CHEM PANEL Alk Phos 106 unit/L 39 - 136 01/08 [facility] CHEM PANEL AST 9 unit/L 0 - 37 01/08 [facility] CHEM PANEL ALT 26 unit/L 0 - 65 01/08 [facility] CHEM PANEL AGAP 11.2 meq/L 10.0 - 01/08 20.0 [facility] CHEM PANEL Calcium Lvl 9.0 mg/dL 8.5 - 10.5 01/08 [facility] CHEM PANEL CO2 27 meq/L 24 - 32 01/08 [facility] CHEM PANEL Chloride Lvl 103 meq/L 95 - 109 01/08 [facility] CHEM PANEL Total 7.7 g/dL 6.4 - 8.4 01/08 [facility] CHEM PANEL Albumin Lvl 3.4 g/dL 3.5 - 5.0 01/08 [facility] HEMATOLOGY MCV 81.3 fL 80.0 - 01/[address] [facility] HEMATOLOGY MCHC 32.4 g/dL 32.0 - 01/[address] [facility] HEMATOLOGY MCH 26.4 pg 27.0 - 01/[address] [facility] HEMATOLOGY RDW 18.3 % 11.5 - 01/[address] [facility] HEMATOLOGY MPV 8.2 fL 7.4 - 10.4 01/08 [facility] HEMATOLOGY RBC 4.33 M/CMM 4.70 - 01/[address] [facility] HEMATOLOGY WBC 19.3 K/CMM 3.7 - 10.4 01/08 [facility] HEMATOLOGY Hgb 11.4 g/dL 14.0 - 01/[address] [facility] HEMATOLOGY Hct 35.2 % 42.0 - 01/[address] [facility] HEMATOLOGY Basophils 0.4 % 0.0 - 1.0 01/08 [facility] HEMATOLOGY Eosinophils 0.1 % 0.0 - 4.0 01/08 [facility] HEMATOLOGY Lymphocytes 1.7 K/CMM 1.0 - 5.5 01/08 # /2016 [facility] HEMATOLOGY Segs-Bands # 15.2 K/CMM 1.5 - 8.1 01/08 [facility] HEMATOLOGY Monocytes # 2.3 K/CMM 0.0 - 0.8 01/08 [facility] HEMATOLOGY Basophils # 0.1 K/CMM 0.0 - 0.2 01/08 [facility] HEMATOLOGY Segs 78.5 % 45.0 - 01/08 MH 75.0 /2015 [facility] HEMATOLOGY Lymphocytes 9.1 % 20.0 - 01/08 MH 40.0 /2015 [facility] HEMATOLOGY Monocytes 11.9 % 2.0 - 12.0 01/08 [facility] Brain wo Brain wo Clinical Indication: Altered level of consciousness - contrast contrast CT /2015 - [facility] CT Comparison: None Read by: Ron Orellana DO Dictated Date/time: 01/09/16 04:54 TECHNIQUE: CT images were obtained from the foramen magnum to the vertex without the use of intravenous contrast on a multidetector CT. Coronal and sagittal reconstructions were obtained. Electronically Signed by: Ron Orellana DO 01/09/16 04:[address] radiation dose DLP: 1103.88 mGy-cm FINDINGS: BRAIN PARENCHYMA: There are normal sanches-white interfaces, sulci and gyri. There are no focal mass lesions on this noncontrast head CT. There is no mass effect, midline shift or edema. There are no intra -axial or extra-axial fluid collections, intraventricular or intraparenchymal hemorrhage. The pineal, sellar, brainstem, cerebellum and skull base regions appear unremarkable. VENTRICLES: The lateral ventricles, third and fourth ventricles appear unremarkable. The basilar cisterns are normal. ORBITS, MASTOIDS AND PARANASAL SINUSES: Polyp or retention cyst left maxillary sinus. The visualized orbits and paranasal sinuses are otherwise unremarkable. The mastoid air cells are clear. SKULL: There are no osseous abnormalities. If there is further concern for intracranial pathology or acute stroke, MRI of the brain may be performed for complete assessment. IMPRESSION: 1. Unremarkable noncontrast head CT with no mass, hemorrhage or subacute stroke. 2. Polyp or retention cyst left maxillary sinus. SL: SROSENBLUM-PC Chest Chest 1[place] Clinical Indication: Chest pain HX: pt called EMS x 6 in the last 3 days for falls. [facility] called out d/t pt falling while trying to ambulate with walker. EMS reports pt was tachypneic with RA sats in the 80s upon their arrival. 01/08 - 1[facility] DX - [facility] Comparison: 02/09/2012 Read by: Ron Orellana DO Dictated Date/time: 01/09/16 02:21 FINDINGS: Electronically Signed by: Ron Orellana DO 01/09/16 02:22 FINAL REPORT AP chest radiograph was obtained. HEART: Mild cardiomegaly. PULMONARY VASCULATURE: Mild pulmonary vasculature congestion versus perihilar infiltrates. LUNGS: Lung volumes are maintained. There are no pneumothoraces noted. Costophrenic sulci: -Right costophrenic sulcus: The right costophrenic sulcus is sharp without evidence for pleural effusions or thickening. -Left costophrenic sulcus: The left costophrenic sulcus is sharp without evidence for pleural effusions or thickening. BONES: The visualized osseous structures are unremarkable. IMPRESSION: 1. Mild cardiomegaly with mild pulmonary vascular congestion versus nonspecific airspace infiltrate. SL: SROSENBLUM-PC Vital Signs Vital Sign Value Date Comments Source Temperature Oral (F) 97.4 F 01/11/2016 [facility] [place] Heart Rate 97 01/11/2016 [facility] [place] Respitory Rate 18 01/11/2016 [facility] [place] Systolic (mm Hg) 147 01/11/2016 [facility] [place] Diastolic (mm Hg) 93 01/11/2016 [facility] [place] Respitory Rate 16 01/11/2016 [facility] [place] Heart Rate 95 01/11/2016 [facility] [place] Temperature Oral (F) 97.6 F 01/11/2016 [facility] [place] Systolic (mm Hg) 150 01/11/2016 [facility] [place] Diastolic (mm Hg) 91 01/11/2016 [facility] [place] Temperature Oral (F) 97.9 F 01/11/2016 [facility] [place] Heart Rate 93 01/11/2016 [facility] [place] Respitory Rate 18 01/11/2016 [facility] [place] Systolic (mm Hg) 144 01/11/2016 [facility] [place] Diastolic (mm Hg) 89 01/11/2016 [facility] [place] Weight 106.506 01/09/2016 [facility] [place] BMI Calculated 30.98 01/09/2016 [facility] [place] Height 185.42 cm 01/09/2016 [facility] [place] Encounters Location Location Encounter Encounter Reason Attending ADM DC Status Source Details Type Number For Provider Date Date Visit [facility] [id number] Artemio 01/08 01/10 Chriss Lopez /2015 [facility] Procedures Procedure Code Date Perfomer Comments Source Operation on hip [id number] [facility] [place] joint
--- OUTSIDE RECORDS SUMMARY | 2018-10-04 14:48 | XMS REPORT ---
:1945 [facility] Address [address] [place] [address] Care Team Providers Name Role Phone KENYON LONDONO Unavailable Unavailable Problems This patient has no known problems. Allergies, Adverse Reactions, Alerts This patient has no known allergies or adverse reactions. Medications This patient has no known medications. Results Test Description Test Time Test Comments Text Results Atomic Results Result Comments BASIC METABOLIC PANEL 2017-12-23 08:06:00 Test Item Value Reference Range Comments SODIUM (BEAKER) (test 140 meq/L 136-145 mouo=171) POTASSIUM (BEAKER) (test 3.7 meq/L 3.5-5.1 rakd=686) CHLORIDE (BEAKER) (test 106 meq/L 98-107 ctsh=147) CO2 (BEAKER) (test ldfq=862) 26 meq/L 22-29 BLOOD UREA NITROGEN (BEAKER) 18 mg/dL 7-21 (test znjc=578) CREATININE (BEAKER) (test 0.93 mg/dL 0.57-1.25 skls=704) GLUCOSE RANDOM (BEAKER) 118 mg/dL 70-105 (test bydc=969) CALCIUM (BEAKER) (test 9.0 mg/dL 8.4-10.2 vnsv=139) EGFR (BEAKER) (test 79 mL/min/1.73 sq m ESTIMATED GFR IS NOT gsht=7983) ACCURATE CREATININE CLEARANCE IN PREDICTING GLOMERULAR FILTRATION RATE. ESTIMATED GFR IS NOT APPLICABLE FOR DIALYSIS PATIENTS. CBC W/PLT COUNT & AUTO [id number] 07:34:00 Test Item Value Reference Range Comments WHITE BLOOD CELL COUNT (BEAKER) (test tpog=591) 9.9 K/ L 3.5-10.5 RED BLOOD CELL COUNT (BEAKER) (test wkwn=615) 3.81 M/ L 4.63-6.08 HEMOGLOBIN (BEAKER) (test hcqo=292) 10.6 GM/DL 13.7-17.5 HEMATOCRIT (BEAKER) (test aafg=465) 32.7 % 40.1-51.0 MEAN CORPUSCULAR VOLUME (BEAKER) (test edob=417) 85.8 fL 79.0-92.2 MEAN CORPUSCULAR HEMOGLOBIN (BEAKER) (test 27.8 pg 25.7-32.2 kxue=226) MEAN CORPUSCULAR HEMOGLOBIN CONC (BEAKER) (test 32.4 GM/DL 32.3-36.5 sbfe=662) RED CELL DISTRIBUTION WIDTH (BEAKER) (test 16.5 % 11.6-14.4 puct=646) PLATELET COUNT (BEAKER) (test ital=482) 233 K/CU MM 150-450 MEAN PLATELET VOLUME (BEAKER) (test ljss=774) 10.2 fL 9.4-12.4 NUCLEATED RED BLOOD CELLS (BEAKER) (test 0 /100 WBC 0-0 zmwq=504) NEUTROPHILS RELATIVE PERCENT (BEAKER) (test 62 % kday=659) LYMPHOCYTES RELATIVE PERCENT (BEAKER) (test 26 % ygqr=469) MONOCYTES RELATIVE PERCENT (BEAKER) (test 7 % jpyc=893) EOSINOPHILS RELATIVE PERCENT (BEAKER) (test 3 % beee=071) BASOPHILS RELATIVE PERCENT (BEAKER) (test 0 % hhlp=719) NEUTROPHILS ABSOLUTE COUNT (BEAKER) (test 6.11 K/ L 1.78-5.38 xyxb=331) LYMPHOCYTES ABSOLUTE COUNT (BEAKER) (test 2.59 K/ L 1.32-3.57 zvik=068) MONOCYTES ABSOLUTE COUNT (BEAKER) (test 0.73 K/ L 0.30-0.82 lyvz=944) EOSINOPHILS ABSOLUTE COUNT (BEAKER) (test 0.34 K/ L 0.04-0.54 xrzg=972) BASOPHILS ABSOLUTE COUNT (BEAKER) (test 0.04 K/ L 0.01-0.08 yqwv=300) IMMATURE GRANULOCYTES-RELATIVE PERCENT (BEAKER) 1 % 0-1 (test witr=5322)
[2018-10-04 15:35] LABS: Absolute Lymphocytes (CBC) 1.3 K/uL (0.7-4.9); Absolute Monocytes 0.6 K/uL (0.1-1.3); Absolute Neutrophil 16.5 K/uL (1.8-8.0); Basophils % 0.3 % (0-1.3); Eosinophils % 1.7 % (0-4.4); Lymphocytes % 7.1 % (15.3-44.8); MPV 8.7 fL (7.6-11.3); Monocytes % 3.4 % (3.3-12.3); RBC Red Blood Cell Count 3.42 M/uL (4.33-5.43)
[2018-10-04 15:40] LABS: Protime INR 1.89
[2018-10-04] MEDS ORDERED: NA CHLORIDE 0.9% 500 ML ONE ×2 (16:01→18:30)
[2018-10-04 16:05] LABS: ALT/SGPT 19 U/L (12-78); AST/SGOT 9 U/L (15-37); Albumin 3.4 g/dL (3.4-5.0); Alkaline Phosphatase 95 U/L (45-117); BUN Blood Urea Nitrogen 57 mg/dL (7-18); Bicarbonate 24 mmol/L (21-32); Bilirubin Direct < 0.1 mg/dL (0-0.2); Bilirubin Total 0.2 mg/dL (0.2-1.0); Glucose Level 143 mg/dL (74-106); Magnesium 3.2 mg/dL (1.8-2.4); NT PRO-BNP 1335 pg/mL (<450); Protein, Total 6.9 g/dL (6.4-8.2); Sodium Level 130 mmol/L (136-145); Troponin (Emerg Dept Use Only) 0.02 ng/mL (0.0-0.045)
[2018-10-04 16:10] LABS: Potassium 5.7 mmol/L (3.5-5.1)
[2018-10-04] MEDS ORDERED: PANTOPRAZOLE 40 MG INJ ONE (16:12)
[2018-10-04 16:18] LABS: Anisocytosis 1+; Blood Morphology Comment NOTED (NOT SEEN); Platelet Estimate ADEQ; Polychromasia 1+
[2018-10-04 16:20] LABS: Urine White Blood Cell Casts OK
[2018-10-04] MEDS ORDERED: FENTANYL CITR 100 MCG/2 ML ONE ×2 (16:33→18:30)
[2018-10-04] MEDS ORDERED: ONDANSETRON 4 MG/2 ML VIAL ONE (16:33)
--- NOTE | 2018-10-04 17:15 | RAD REPORT ---
EXAM DESCRIPTION: CT - Abdomen Pelvis Wo Contrast - 10/04/2018 4:37 pm CLINICAL HISTORY: Abdominal pain /GI bleed COMPARISON: 2017 TECHNIQUE: Computed axial tomography of the abdomen and pelvis was obtained. IV and oral contrast we re not requested. All CT scans are performed using dose optimization technique as appropriate and may include automated exposure control or mA/KV adjustment according to patient size. FINDINGS: The evaluation of solid organs, vessels and bowel is limited secondary to the lack of con trast administration. Small hepatic lesion is unchanged. Spleen, pancreas and adrenals appear grossly normal. Tiny nonobstructing left renal calculus. An approximately 56 millimeter right renal mass has enlarged since the prior exam. 14 millimeter prot einaceous/hemorrhagic right renal cyst The wall of the rectosigmoid colon is thickened. Moderate stranding is present within the adjacent fa t. A 5 x 3.5 centimeter fluid collection lies to the left of the rectosigmoid colon. It does not cont ain air Small left inguinal hernia contains fat. The appendix is normal IMPRESSION: 56 millimeter right renal mass has enlarged since the prior exam Moderate stranding adjacent to the wall of the rectosigmoid colon. The wall is thickened. Most likely this represents inflammation. Neoplasm is a another consideration but probably is less likely. 5 x 3.5 centimeter fluid collection to the left of the rectosigmoid colon.
[2018-10-04] MEDS ORDERED: Levofloxacin500mg IV 500 MG/100 ML BAG IV ONE (18:30)
[2018-10-04] MEDS ORDERED: METRONIDAZOLE 500mg IVPB 500 MG/100 ML BAG IV ONE (18:31)
--- NOTE | 2018-10-04 18:37 | RAD REPORT ---
EXAM DESCRIPTION: [place] Single View10/04/2018 5:25 pm CLINICAL HISTORY: Abdominal pain COMPARISON: December 2017 FINDINGS: The lungs appear clear of acute infiltrate. The heart is normal size IMPRESSION: No acute abnormalities displayed
[2018-10-04] MEDS ORDERED: D50W 25 GM/50 ML SYRINGE IV ONE (18:52)
[2018-10-04] MEDS ORDERED: INSULIN -REGULAR HUMAN 50 UNIT/0.5 ML ML ONE (18:52)
[2018-10-04] MEDS ORDERED: CALCIUM GLUCONATE 1gm/100 ML NS (4.65 mEq/100mL) IV ONE ×2 (19:00)
--- NOTE | 2018-10-04 19:14 | ER ---
Nurse's Notes [facility] Name: Sam Suarez Age: 73 yrs Sex: Male : 1945 Arrival Date: 10/04/2018 Time: 14:53 Bed 28 Private MD: Diagnosis: Diverticulitis of large intestine with perforation and abscess with bleeding;Acute kidney failure;Hyperkalemia Presentation: 10/04 14:54 Presenting complaint: EMS states: Pt started c/o abdominal pain last night after ed1 dinner. This morning had a bowel movement with dark tarry stool. Transition of care: [facility] [phone]. Onset of symptoms was October 03, 2018. Risk Assessment: Do you want to hurt yourself or someone else? Patient reports no desire to harm self or others. Initial Sepsis Screen: Does the patient meet any 2 criteria? Systolic BP < 90 mmHg. Mean Arterial Pressure (MAP) < 65. HR > 90 bpm. Yes Does the patient have a suspected source of infection? Yes: Acute abdominal pain If YES to both, name of provider notified: Enio Schuster MD Care prior to arrival: None. 14:54 Method Of Arrival: EMS: [facility] ed1 15:03 Acuity: AMANDA 2 iw Triage Assessment: 15:09 General: Appears uncomfortable, Behavior is calm, cooperative. Pain: Complains of pain ed1 in abdomen Pain does not radiate. Pain currently is 6 out of 10 on a pain scale. Quality of pain is described as aching, Pain began 1 day ago. GI: Abdomen is round distended, Bowel sounds present X 4 quads. Abdomen is tender to palpation X 4 quads. Parent/caregiver reports the patient having dark, tarry stools. Historical: - Allergies: 15:09 Dilaudid; ed1 15:09 Metformin HCl; ed1 - Home Meds: 15:09 Nicoderm CQ 14 mg/24 hr transdermal pt24 1 patch once daily [Active]; DuoNeb 0.5 mg-3 ed1 mg(2.5 mg base)/3 mL Inhl nebu 3 mL Q6h PRN [Active]; albuterol sulfate 90 mcg/actuation Inhl HFAA 2 puffs every 6 hours [Active]; finasteride 5 mg Oral tab 1 tab once daily [Active]; Zofran (as hydrochloride) 4 mg Oral tab 1 tabs Q4h PRN [Active]; alprazolam 0.5 mg Oral TbDL 1 tab [Active]; tamsulosin 0.4 mg oral cp24 1 cap once daily [Active]; sertraline 100 mg Oral tab 1 tab once daily [Active]; Aldactone 25 mg Oral tab 1 tab once daily [Active]; Ranexa 500 mg Oral Tb12 2 times per day [Active]; Colace 100 mg oral cap 1 cap 2 times per day [Active]; lisinopril 10 mg Oral tab 1 tab once daily [Active]; glipizide 5 mg Oral tab 1 tab 2 times per day [Active]; Coreg 12.5 mg oral tab 1 tab every 12 hours [Active]; Eliquis 5 mg oral tab 1 tab 2 times per day [Active]; metolazone 5 mg oral tab 1 tab once daily [Active]; gabapentin 400 mg oral cap 1 cap twice a day [Active]; Lasix 40 mg Oral tab once daily [Active]; hydralazine 10 mg Oral tab 1 tab 2 times per day [Active]; aspirin 325 mg Oral tab 1 tab once daily [Active]; Symbicort 80-4.5 mcg/actuation inhalation HFAA 2 puffs 2 times per day [Active]; hydrocodone-acetaminophen 7.5-325 mg Oral tab 1 tab Q6h PRN for Pain [Active]; - PMHx: 15:09 Anemia; ATHEROSCLEROSIS; Atrial Fib; COPD; Constipation; Dysphagia; GERD; Hematuria; ed1 Hypomagnesemia; Major Depressive Disorder; Chronic pain; Anxiety; Benign Prostatic Hyperplasia; CKD; Hypertension; CHF; Hypokalemia; Diabetes - NIDDM; B12 deficiency; - PSHx: 15:55 Appendectomy; Cholecystectomy; ed1 - Immunization history:: Adult Immunizations unknown, Flu vaccine status is unknown. - Social history:: Smoking status: Patient/guardian denies using tobacco, the patient reports quitting approximately 1 years ago. - Ebola Screening: : Patient negative for fever greater than or equal to 101.5 degrees Fahrenheit, and additional compatible Ebola Virus Disease symptoms Patient denies exposure to infectious person Patient denies travel to an Ebola-affected area in the 21 days before illness onset No symptoms or risks identified at this time. Screenin:20 Abuse screen: Denies threats or abuse. Denies injuries from another. Nutritional ed1 screening: No deficits noted. Tuberculosis screening: No symptoms or risk factors identified. Fall Risk Fall in past 12 months (25 points). Secondary diagnosis (15 points) impaired mobility, IV access (20 points). Ambulatory Aid- None/Bed Rest/Nurse Assist (0 pts). Gait- Weak (10 pts.). Mental Status- Oriented to own ability (0 pts). Total Potts Fall Scale indicates High Risk Score (45 or more points). Fall prevention measures have been instituted. Side Rails Up X 2 Placed Close to Nursing Station Frequent Obs/Assessments Occuring As available patient and family educated on Fall Prevention Program and Strategies. Assessment: 15:12 General: Appears uncomfortable, Behavior is calm, cooperative. Pain: Complains of pain ed1 in abdomen Pain does not radiate. Pain currently is 6 out of 10 on a pain scale. Quality of pain is described as aching, Pain began 1 day ago. Is continuous. Neuro: Level of Consciousness is awake, alert, obeys commands, Oriented to person, place, time, situation. Cardiovascular: Denies chest pain, Heart tones S1 S2 present. Respiratory: Airway is patent Respiratory effort is even, unlabored, Respiratory pattern is regular, symmetrical, Breath sounds are clear bilaterally. GI: Abdomen is distended, Bowel sounds present X 4 quads. Abdomen is tender to palpation X 4 quads. Reports lower abdominal pain, upper abdominal pain, Patient currently denies nausea, vomiting. : No signs and/or symptoms were reported regarding the genitourinary system. EENT: No signs and/or symptoms were reported regarding the EENT system. Derm: Skin is intact, is fragile, is thin, Skin is dry, Skin is pale, Skin temperature is warm. Musculoskeletal: Circulation, motion, and sensation intact. Range of motion: intact in all extremities. 15:15 Reassessment: I agree with above assessment. iw 16:51 Reassessment: Patient appears in no apparent distress at this time. Patient and/or ed1 family updated on plan of care and expected duration. Pain level reassessed. Patient is alert, oriented x 3, equal unlabored respirations, skin warm/dry/pink. Patient states feeling better. Patient states symptoms have improved. 18:11 Reassessment: Patient and/or family updated on plan of care and expected duration. Pain ed1 level reassessed. Patient is alert, oriented x 3, equal unlabored respirations, skin warm/dry/pink. Pt reports pain returning to abdomen. 20:04 Reassessment: Patient appears in no apparent distress at this time. Patient and/or ed1 family updated on plan of care and expected duration. Pain level reassessed. Patient is alert, oriented x 3, equal unlabored respirations, skin warm/dry/pink. Patient states feeling better. Patient states symptoms have improved. 20:54 Reassessment: Patient appears in no apparent distress at this time. Patient and/or ed1 family updated on plan of care and expected duration. Pain level reassessed. Patient is alert, oriented x 3, equal unlabored respirations, skin warm/dry/pink. 21:40 Reassessment: Patient appears in no apparent distress at this time. Patient and/or ed1 family updated on plan of care and expected duration. Pain level reassessed. Patient is alert, oriented x 3, equal unlabored respirations, skin warm/dry/pink. Vital Signs: 14:53 BP 73 / 49; Pulse 95; Resp 17; Temp 97.1(O); Pulse Ox 100% on R/A; Pain 6/10; ed1 15:12 BP 78 / 50 RA (man/lg); Pulse 107; Resp 18; Pulse Ox 100% on R/A; Pain 6/10; ed1 15:56 BP 127 / 82; Pulse 117; Resp 13; Pulse Ox 100% on R/A; Pain 6/10; ed1 16:51 BP 92 / 58; Pulse 126; Resp 18; Temp 97.4(O); Pulse Ox 99% on R/A; Pain 2/10; ed1 18:11 BP 95 / 62; Pulse 124; Resp 18; Temp 97.6(O); Pulse Ox 97% on R/A; Pain 6/10; ed1 20:04 BP 79 / 48; Pulse 100; Resp 18; Pulse Ox 99% on R/A; Pain 0/10; ed1 20:54 BP 90 / 56; Pulse 109; Resp 18; Temp 97.8(O); Pulse Ox 99% on R/A; Pain 0/10; ed1 21:40 BP 98 / 66; Pulse 112; Resp 17; Temp 97.8(O); Pulse Ox 100% on R/A; Pain 2/10; ed1 ED Course: 14:53 Patient arrived in ED. ed1 14:57 Christian Brown NP is PHCP. pm1 14:57 Enio Schuster MD is Attending Physician. pm1 15:04 Triage completed. iw 15:09 Arm band placed on left wrist. ed1 15:20 Patient has correct armband on for positive identification. Placed in gown. Bed in low ed1 position. Call light in reach. Side rails up X2. electronic device monitor on. Pulse ox on. NIBP on. 15:20 Inserted saline lock: 20 gauge in right antecubital area, using aseptic technique. ed1 Blood collected. 15:29 Meena English LVN is Primary Nurse. ed1 16:38 Abdomen In Process Unspecified. EDMS 16:38 CT completed. Patient tolerated procedure well. Patient moved back from CT. bq 17:25 XRAY Chest (1 view) In Process Unspecified. EDMS 21:40 No provider procedures requiring assistance completed. Patient transferred, IV remains ed1 in place. intact, No redness/swelling at site. Administered Medications: 16:09 Drug: NS 0.9% 500 ml Route: IV; Rate: bolus; Site: right antecubital; ed1 18:12 Follow up: IV Status: Completed infusion; IV Intake: 500ml ed1 16:15 Drug: ProTONIX 40 mg Route: IVP; Site: right antecubital; iw 18:12 Follow up: Response: No adverse reaction ed1 16:27 Drug: fentaNYL (PF) 25 mcg Route: IVP; Site: right antecubital; iw 18:12 Follow up: Response: No adverse reaction; Pain is decreased ed1 16:27 Drug: Zofran 4 mg Route: IVP; Site: right antecubital; iw 18:12 Follow up: Response: No adverse reaction ed1 18:10 CANCELLED (Change to levaquin): Cipro 400 mg 200 ml IVPB once over 60 mins pm1 18:30 Drug: NS 0.9% 500 ml Route: IV; Rate: bolus; Site: right antecubital; ed1 20:02 Follow up: IV Status: Completed infusion; IV Intake: 500ml ed1 18:31 Drug: Flagyl 500 mg Volume: 100 ml; Route: IVPB; Rate: 200 ml/hr; Infused Over: 30 ed1 mins; Site: right antecubital; 20:02 Follow up: Response: No adverse reaction; IV Status: Completed infusion ed1 18:31 Drug: fentaNYL (PF) 25 mcg Route: IVP; Site: right antecubital; ed1 20:03 Follow up: Response: No adverse reaction; Pain is decreased ed1 18:52 Drug: Insulin Regular Human 5 units {Co-Signature: ed1 (Meena English WORSHIP PASTOR).} Route: IVP; iw Site: right antecubital; 20:03 Follow up: Response: No adverse reaction ed1 18:52 Drug: D50W 50 ml Route: IVP; Site: right antecubital; iw 20:03 Follow up: Response: No adverse reaction ed1 19:20 Drug: Calcium Gluconate 1 grams Route: IVPB; Infused Over: 60 mins; Site: right ed1 antecubital; 20:54 Follow up: Response: No adverse reaction; IV Status: Completed infusion; IV Intake: ed1 100ml 20:03 Drug: LevaQUIN 500 mg Volume: 100 ml; Route: IVPB; Infused Over: 60 mins; Site: right ed1 antecubital; 21:43 Follow up: IV Status: Completed infusion ed1 20:53 Drug: NS 0.9% 1000 ml Route: IV; Rate: 1000 ml; Site: right antecubital; ed1 21:43 Follow up: IV Status: Infusion continued upon transfer ed1 20:53 Drug: vancoMYCIN 1 grams Route: IVPB; Infused Over: 2 hrs; Site: right antecubital; ed1 21:43 Follow up: IV Status: Infusion continued upon transfer ed1 Intake: 18:12 IV: 500ml; Total: 500ml. ed1 20:02 IV: 500ml; Total: 1000ml. ed1 20:54 IV: 100ml; Total: 1100ml. ed1 Outcome: 19:13 ER care complete, transfer ordered by MD. pm1 21:40 Transferred by [facility]. to [facility], Transfer form ed1 completed. X-rays sent w/ patient. 21:40 Condition: stable 21:40 Discharge instructions given to patient, family, Instructed on the need for transfer, Demonstrated understanding of instructions. 21:43 Patient left the ED. ed1 Signatures: Dispatcher [employer] EDMS Tatiana Simms Irene, RN RN Meena Calhoun LVN WORSHIP PASTOR ed1 Christian Brown, ASSISTANT SERVICE MANAGER ASSISTANT SERVICE MANAGER pm1 Meena English WORSHIP PASTOR ed1 Corrections: (The following items were deleted from the chart) 15:56 15:09 PSHx: Unable to obtain; ed1 ed1
--- NOTE | 2018-10-04 19:14 | EDPHYS ---
Physician Documentation [facility] Name: Sam Suarez Age: 73 yrs Sex: Male : 1945 Arrival Date: 10/04/2018 Time: 14:53 Bed 28 Private MD: ED Physician Enio Schuster HPI: 10/04 17:00 This 73 yrs old Male presents to ER via EMS with complaints of Abd Pain > 50 pm1 y/o. 17:00 The patient presents with abdominal pain that is diffuse. Onset: The symptoms/episode pm1 began/occurred last night. The symptoms do not radiate. Associated signs and symptoms: Pertinent positives: blood in stools, Pertinent negatives: nausea and vomiting, chest pain, diarrhea, fever, shortness of breath. The symptoms are described as achy, constant. Modifying factors: The symptoms are alleviated by nothing, the symptoms are aggravated by nothing. The patient has not experienced similar symptoms in the past. Patient with abdominal bloating per for the past 1 month. Patient with onset of abdominal pain last night after dinner. Black tarry stool per jail this AM. Historical: - Allergies: 15:09 Dilaudid; ed1 15:09 Metformin HCl; ed1 - Home Meds: 15:09 Nicoderm CQ 14 mg/24 hr transdermal pt24 1 patch once daily [Active]; DuoNeb 0.5 mg-3 ed1 mg(2.5 mg base)/3 mL Inhl nebu 3 mL Q6h PRN [Active]; albuterol sulfate 90 mcg/actuation Inhl HFAA 2 puffs every 6 hours [Active]; finasteride 5 mg Oral tab 1 tab once daily [Active]; Zofran (as hydrochloride) 4 mg Oral tab 1 tabs Q4h PRN [Active]; alprazolam 0.5 mg Oral TbDL 1 tab [Active]; tamsulosin 0.4 mg oral cp24 1 cap once daily [Active]; sertraline 100 mg Oral tab 1 tab once daily [Active]; Aldactone 25 mg Oral tab 1 tab once daily [Active]; Ranexa 500 mg Oral Tb12 2 times per day [Active]; Colace 100 mg oral cap 1 cap 2 times per day [Active]; lisinopril 10 mg Oral tab 1 tab once daily [Active]; glipizide 5 mg Oral tab 1 tab 2 times per day [Active]; Coreg 12.5 mg oral tab 1 tab every 12 hours [Active]; Eliquis 5 mg oral tab 1 tab 2 times per day [Active]; metolazone 5 mg oral tab 1 tab once daily [Active]; gabapentin 400 mg oral cap 1 cap twice a day [Active]; Lasix 40 mg Oral tab once daily [Active]; hydralazine 10 mg Oral tab 1 tab 2 times per day [Active]; aspirin 325 mg Oral tab 1 tab once daily [Active]; Symbicort 80-4.5 mcg/actuation inhalation HFAA 2 puffs 2 times per day [Active]; hydrocodone-acetaminophen 7.5-325 mg Oral tab 1 tab Q6h PRN for Pain [Active]; - PMHx: 15:09 Anemia; ATHEROSCLEROSIS; Atrial Fib; COPD; Constipation; Dysphagia; GERD; Hematuria; ed1 Hypomagnesemia; Major Depressive Disorder; Chronic pain; Anxiety; Benign Prostatic Hyperplasia; CKD; Hypertension; CHF; Hypokalemia; Diabetes - NIDDM; B12 deficiency; - PSHx: 15:55 Appendectomy; Cholecystectomy; ed1 - Immunization history:: Adult Immunizations unknown, Flu vaccine status is unknown. - Social history:: Smoking status: Patient/guardian denies using tobacco, the patient reports quitting approximately 1 years ago. - Ebola Screening: : Patient negative for fever greater than or equal to 101.5 degrees Fahrenheit, and additional compatible Ebola Virus Disease symptoms Patient denies exposure to infectious person Patient denies travel to an Ebola-affected area in the 21 days before illness onset No symptoms or risks identified at this time. ROS: 17:00 Constitutional: Negative for fever, chills, and weight loss, Eyes: Negative for injury, pm1 pain, redness, and discharge, ENT: Negative for injury, pain, and discharge, Neck: Negative for injury, pain, and swelling, Cardiovascular: Negative for chest pain, palpitations, and edema, Respiratory: Negative for shortness of breath, cough, wheezing, and pleuritic chest pain. 17:00 Back: Negative for injury and pain, : Negative for injury, bleeding, discharge, and swelling, MS/Extremity: Negative for injury and deformity, Skin: Negative for injury, rash, and discoloration, Neuro: Negative for headache, weakness, numbness, tingling, and seizure. 17:00 Abdomen/GI: Positive for abdominal pain, black/tarry stool, Negative for nausea and vomiting, diarrhea, constipation. Exam: 16:16 Abdomen/GI: Rectal exam: Stool: guaiac positive, Dark brown. pm1 17:00 Constitutional: This is a well developed, well nourished patient who is awake, alert, pm1 and in no acute distress. Head/Face: Normocephalic, atraumatic. Eyes: Pupils equal round and reactive to light, extra-ocular motions intact. Lids and lashes normal. Conjunctiva and sclera are non-icteric and not injected. Cornea within normal limits. Periorbital areas with no swelling, redness, or edema. ENT: Nares patent. No nasal discharge, no septal abnormalities noted. Tympanic membranes are normal and external auditory canals are clear. Oropharynx with no redness, swelling, or masses, exudates, or evidence of obstruction, uvula midline. Mucous membranes moist. Neck: Trachea midline, no thyromegaly or masses palpated, and no cervical lymphadenopathy. Supple, full range of motion without nuchal rigidity, or vertebral point tenderness. No Meningismus. Chest/axilla: Normal chest wall appearance and motion. Nontender with no deformity. No lesions are appreciated. 17:00 Respiratory: Lungs have equal breath sounds bilaterally, clear to auscultation and percussion. No rales, rhonchi or wheezes noted. No increased work of breathing, no retractions or nasal flaring. 17:00 Back: No spinal tenderness. No costovertebral tenderness. Full range of motion. Skin: Warm, dry with normal turgor. Normal color with no rashes, no lesions, and no evidence of cellulitis. MS/ Extremity: Pulses equal, no cyanosis. Neurovascular intact. Full, normal range of motion. 17:00 Cardiovascular: Rate: tachycardic, Rhythm: irregular, Pulses: no pulse deficits are appreciated, Heart sounds: normal, Edema: pedal edema, that is mild. 17:00 Abdomen/GI: Inspection: obese Bowel sounds: normal, Palpation: soft, moderate abdominal tenderness, in the right lower quadrant, mass, is not appreciated, rebound tenderness, is not appreciated. 17:00 Neuro: Orientation: is normal, Mentation: is normal, Motor: moves all fours. Vital Signs: 14:53 BP 73 / 49; Pulse 95; Resp 17; Temp 97.1(O); Pulse Ox 100% on R/A; Pain 6/10; ed1 15:12 BP 78 / 50 RA (man/lg); Pulse 107; Resp 18; Pulse Ox 100% on R/A; Pain 6/10; ed1 15:56 BP 127 / 82; Pulse 117; Resp 13; Pulse Ox 100% on R/A; Pain 6/10; ed1 16:51 BP 92 / 58; Pulse 126; Resp 18; Temp 97.4(O); Pulse Ox 99% on R/A; Pain 2/10; ed1 18:11 BP 95 / 62; Pulse 124; Resp 18; Temp 97.6(O); Pulse Ox 97% on R/A; Pain 6/10; ed1 20:04 BP 79 / 48; Pulse 100; Resp 18; Pulse Ox 99% on R/A; Pain 0/10; ed1 20:54 BP 90 / 56; Pulse 109; Resp 18; Temp 97.8(O); Pulse Ox 99% on R/A; Pain 0/10; ed1 21:40 BP 98 / 66; Pulse 112; Resp 17; Temp 97.8(O); Pulse Ox 100% on R/A; Pain 2/10; ed1 MDM: 15:06 Patient medically screened. [facility] 18:15 Physician consultation: Uday Kim MD was called at 18:00, was contacted at 18:00, pm1 regarding consult, patient's condition, Is willing to see the patient provided that hospitalist will admit and manage medical issues. Evaluated CT and then he checked with radiology, Courtney, if are willing to drain abscess. Courtney said unable to access and drain abscess. Judy believes that the patient can be treated with antibiotics and will see the patient tomorrow if he is admitted here. Recommends Levaquin and Flagyl, IV fluids, NPO. 18:20 Physician consultation: Kristin Kraus MD was called at 18:20, was contacted at 18:20, pm1 regarding admission, Will call me back. 18:44 Data reviewed: vital signs. Data interpreted: Pulse oximetry: on room air is 97 %. pm1 Interpretation: normal. 19:09 Physician consultation: Kristin Kraus MD was contacted at 19:09, regarding admission, pm1 after a discussion of the case, a recommendation for transfer for higher level of care is made, Would like interventional radiology to drain abscess within 24 to 48 hours. 20:30 ED course: Patient evaluation with Dr. Kraus. Recommended NS 1 liter and vancomycin. pm1 21:00 Physician consultation: MD Garza regarding regarding transfer, patient's condition, and pm1 will see patient ER to ER transfer. 10/04 15:23 Order name: Type And Screen; Complete Time: 16:56 pm1 10/04 15:23 Order name: Basic Metabolic Panel; Complete Time: 16:46 pm1 10/04 15:23 Order name: CBC with Diff; Complete Time: 16:46 pm1 10/04 15:23 Order name: LFT's; Complete Time: 16:46 pm1 10/04 15:23 Order name: Magnesium; Complete Time: 16:46 pm1 10/04 15:23 Order name: NT PRO-BNP; Complete Time: 16:46 pm1 10/04 15:23 Order name: PT-INR; Complete Time: 16:46 pm10/04 15:23 Order name: Troponin (emerg Dept Use Only); Complete Time: 16:46 pm1 10/04 15:23 Order name: XRAY Chest (1 view); Complete Time: 18:45 pm1 10/04 15:38 Order name: CBC Smear Scan; Complete Time: 16:46 EDMS 10/04 16:17 Order name: Abdomen ; Complete Time: 17:27 EDMS 10/04 15:23 Order name: EKG; Complete Time: 15:23 pm10/04 15:23 Order name: Cardiac monitoring; Complete Time: 15:51 pm1 10/04 15:23 Order name: EKG - Nurse/Tech; Complete Time: 15:52 pm1 10/04 15:23 Order name: IV Saline Lock; Complete Time: 15:52 pm10/04 15:23 Order name: Labs collected and sent; Complete Time: 15:52 pm1 10/04 15:23 Order name: O2 Per Protocol; Complete Time: 15:52 pm10/04 15:23 Order name: O2 Sat Monitoring; Complete Time: 15:52 pm1 Administered Medications: 16:09 Drug: NS 0.9% 500 ml Route: IV; Rate: bolus; Site: right antecubital; ed1 18:12 Follow up: IV Status: Completed infusion; IV Intake: 500ml ed1 16:15 Drug: ProTONIX 40 mg Route: IVP; Site: right antecubital; iw 18:12 Follow up: Response: No adverse reaction ed1 16:27 Drug: fentaNYL (PF) 25 mcg Route: IVP; Site: right antecubital; iw 18:12 Follow up: Response: No adverse reaction; Pain is decreased ed1 16:27 Drug: Zofran 4 mg Route: IVP; Site: right antecubital; iw 18:12 Follow up: Response: No adverse reaction ed1 18:10 CANCELLED (Change to levaquin): Cipro 400 mg 200 ml IVPB once over 60 mins pm1 18:30 Drug: NS 0.9% 500 ml Route: IV; Rate: bolus; Site: right antecubital; ed1 20:02 Follow up: IV Status: Completed infusion; IV Intake: 500ml ed1 18:31 Drug: Flagyl 500 mg Volume: 100 ml; Route: IVPB; Rate: 200 ml/hr; Infused Over: 30 ed1 mins; Site: right antecubital; 20:02 Follow up: Response: No adverse reaction; IV Status: Completed infusion ed1 18:31 Drug: fentaNYL (PF) 25 mcg Route: IVP; Site: right antecubital; ed1 20:03 Follow up: Response: No adverse reaction; Pain is decreased ed1 18:52 Drug: Insulin Regular Human 5 units {Co-Signature: ed1 (Meena English LVN).} Route: IVP; iw Site: right antecubital; 20:03 Follow up: Response: No adverse reaction ed1 18:52 Drug: D50W 50 ml Route: IVP; Site: right antecubital; iw 20:03 Follow up: Response: No adverse reaction ed1 19:20 Drug: Calcium Gluconate 1 grams Route: IVPB; Infused Over: 60 mins; Site: right ed1 antecubital; 20:54 Follow up: Response: No adverse reaction; IV Status: Completed infusion; IV Intake: ed1 100ml 20:03 Drug: LevaQUIN 500 mg Volume: 100 ml; Route: IVPB; Infused Over: 60 mins; Site: right ed1 antecubital; 21:43 Follow up: IV Status: Completed infusion ed1 20:53 Drug: NS 0.9% 1000 ml Route: IV; Rate: 1000 ml; Site: right antecubital; ed1 21:43 Follow up: IV Status: Infusion continued upon transfer ed1 20:53 Drug: vancoMYCIN 1 grams Route: IVPB; Infused Over: 2 hrs; Site: right antecubital; ed1 21:43 Follow up: IV Status: Infusion continued upon transfer ed1 Disposition: 10/04/18 19:13 Transfer ordered to [facility]. Diagnosis are Diverticulitis of large intestine with perforation and abscess with bleeding, Acute kidney failure, Hyperkalemia. - Reason for transfer: Higher level of care. - Accepting physician is Greg. - Condition is Stable. - Problem is new. - Symptoms have improved. Addendum: 10/08/2018 07:34 Co-signature as Attending Physician, Enio Schuster MD I agree with the assessment and c borja plan of care. Signatures: Dispatcher [employer] EDAL Enio Schuster MD MD cha Williams, Irene, CARA RN iw Meena English LVN ANIMATION ARTIST ed1 Christian Brown, SERVICE LOSS CONTROL CONSULTANT SERVICE LOSS CONTROL CONSULTANT pm1 Meena English ANIMATION ARTIST ed1 Corrections: (The following items were deleted from the chart) 10/04 15:56 15:09 PSHx: Unable to obtain; ed1 ed1 16:17 15:23 Abdomen Pelvis W Con+CT.RAD.BRZ ordered. EDAL EDAL 18:10 18:05 Cipro 400 mg 200 ml IVPB once over 60 mins ordered. pm1 pm1 19:13 19:13 10/04/2018 19:13 Transfer ordered to [facility]. Diagnosis is pm1 Diverticulitis of large intestine with perforation and abscess with bleeding. Reason for transfer: Higher level of care. Accepting physician is [facility]. Condition is Stable. Problem is new. Symptoms have improved. pm1 21:06 19:13 10/04/2018 19:13 Transfer ordered to [facility]. Diagnosis is pm1 Diverticulitis of large intestine with perforation and abscess with bleeding; Acute kidney failure; Hyperkalemia. Reason for transfer: Higher level of care. Accepting physician is [facility]. Condition is Stable. Problem is new. Symptoms have improved. pm1 21:43 21:06 10/04/2018 19:13 Transfer ordered to [facility]. ed1 Diagnosis is Diverticulitis of large intestine with perforation and abscess with bleeding; Acute kidney failure; Hyperkalemia. Reason for transfer: Higher level of care. Accepting physician is Greg. Condition is Stable. Problem is new. Symptoms have improved. pm1
[2018-10-04] MEDS ORDERED: NA CHLORIDE 0.9% 1,000 ML ONE (20:55)
[2018-10-04] MEDS ORDERED: VANCOMYCIN 1 GM/250 ML BAG ONE (20:55)
[2018-10-04 22:15] VITALS: TEMP 97.8
[2018-10-04 22:17] VITALS: BP 98/66; O2SAT 100
--- NOTE | 2018-10-05 13:32 | EKG ---
Test Date: 2018-10-04 Test Time: 15:47:22 Drying Frame Operator: TL MEASUREMENT RESULTS: Intervals: Rate: 114 [place]: QRSD: 98 QT: 360 QTc: 496 [place]: P: [place]: QRS: -44 T: 101 INTERPRETIVE STATEMENTS: Atrial flutter with variable AV block Left axis deviation Nonspecific ST and T wave abnormality Abnormal ECG Compared to ECG 01/14/2018 23:31:30 ST (T wave) deviation now present Electronically Signed On 10-05-18 13:21:58 STRAIGHT LINE EDGER by Jean Ballesteros
== END 2018-10-04 21:43 | disposition short-term general hospital (02) ==
LOC: ER 14:43
DX: E87.5 Hyperkalemia (principal); N17.9 Acute kidney failure, unspecified; I10 Essential (primary) hypertension; I48.91 Unspecified atrial fibrillation; E11.9 Type 2 diabetes mellitus without complications; F32.9 Major depressive disorder, single episode, unspecified; Z79.82 Long term (current) use of aspirin; Z88.8 Allergy status to other drugs, medicaments and biological substances
CPT/HCPCS: 36415; 71045; 74176; 80048; 80076; 83735; 83880; 84484; 85025; 85610; 86850; 86900; 86901; 93005; 96361; 96365; 96367; 96375; 99285; C9113; J0610; J2405; J3010 ×2; J3370; J7030

== ENCOUNTER 2018-11-11 11:33 | Emergency (ER) | payer OTHER ==
--- OUTSIDE RECORDS SUMMARY | 2018-11-11 11:36 | XMS REPORT | Clinical Summary ---
:1945 Author Organization [facility] Address [address] [place] [address] Care Team Providers Name Role Phone [place] [...] Orders Only Cardiology Emmanuel Schuster MD after 11/10/2017 Social History Tobacco Use Types Packs/Day Years [...] Not on file Implants Implanted Type Area Board Worker Device Shelf Model / Identifier Expiration Serial / Date Lot Device Clsr Andre Glassnx 5fr [id number] - [id number] Cardiovascular Right: ACCESS CLOSURE 10/30/2019 [id number] / Implanted: Qty: 1 on 12/23/2017 by Emmanuel Schuster MD Groin / [id number] Procedures Procedure Name Priority Date/Time Associated Diagnosis [...] procedure are in the results section. after 11/10/2017 Results VASCULAR DIAGRAM -SCAN (01/23/2018 1:26 PM CDT)Only the most recent of2 resultswithin the time period is included. Narrative Performed At CARDIAC CATH REPORT - SCAN (12/25/2017 8:31 PM CDT) Narrative Performed At TRANSFUSION SERVICE REPORT - SCAN (12/24/2017 5:55 PM CDT) Narrative Performed At Type and screen, automated (12/23/2017 7:23 AM CDT) ABO/RH AUTOMATED (BEAKER) O POSITIVE [facility] Ab Scrn NEGATIVE [facility] Specimen Blood Performing Organization Address City/State/Zipcode Phone Number [facility] [address] [place] [address] [phone] CBC with platelet count + automated diff (12/23/2017 7:23 AM CDT) WBC 9.9 3.5 - 10.5 K/L [facility] RBC 3.81 (L) 4.63 - 6.08 M/L [facility] Hemoglobin 10.6 (L) 13.7 - 17.5 GM/DL [facility] Hematocrit 32.7 (L) 40.1 - 51.0 % [facility] MCV 85.8 79.0 - 92.2 fL [facility] MCH 27.8 25.7 - 32.2 pg [facility] MCHC 32.4 32.3 - 36.5 GM/DL [facility] RDW 16.5 (H) 11.6 - 14.4 % [facility] Platelets 233 150 - 450 K/CU MM [facility] MPV 10.2 9.4 - 12.4 fL [facility] nRBC 0 0 - 0 /100 WBC [facility] % Neutros 62 % [facility] % Lymphs 26 % [facility] % Monos 7 % [facility] % Eos 3 % [facility] % Baso 0 % [facility] # Neutros 6.11 (H) 1.78 - 5.38 K/L [facility] # Lymphs 2.59 1.32 - 3.57 K/L [facility] # Monos 0.73 0.30 - 0.82 K/L [facility] # Eos 0.34 0.04 - 0.54 K/L [facility] # Baso 0.04 0.01 - 0.08 K/L [facility] Immature Granulocytes-Relative 1 0 - 1 % [facility] Specimen Blood Performing Organization Address City/State/Zipcode Phone Number [facility] [address] [place] [address] BETSY LAYNE Basic Metabolic Panel (12/23/2017 7:23 AM CDT) Sodium 140 136 - 145 meq/L [facility] Potassium 3.7 3.5 - 5.1 meq/L [facility] Chloride 106 98 - 107 meq/L [facility] CO2 26 22 - 29 meq/L [facility] BUN 18 7 - 21 mg/dL [facility] Creatinine 0.93 0.57 - 1.25 mg/dL [facility] Glucose 118 (H) 70 - 105 mg/dL [facility] Calcium 9.0 8.4 - 10.2 mg/dL [facility] EGFR 79Comment: ESTIMATED GFR IS mL/min/1.73 sq m [facility] NOT ACCURATE CREATININE [facility] CENTER CLEARANCE IN PREDICTING GLOMERULAR FILTRATION RATE. ESTIMATED GFR IS NOT APPLICABLE FOR DIALYSIS PATIENTS. Specimen Blood Performing Organization Address City/State/Zipcode Phone Number [facility] [address] [place] [address] [phone] BETSY LAYNE after 11/10/2017 Insurance Payer Benefit Plan / Group Subscriber ID Type Phone Address CARE IMPROVEMENT MEDICARE MGD CARE IMPROVEMENT PLUS xxxxxxxxx CARE Advance Directives For more information, please contact:[place] [address] [place], [place] [phone] Code Status Date Activated Date Inactivated Comments [...]
--- OUTSIDE RECORDS SUMMARY | 2018-11-11 11:39 | XMS REPORT | Continuity of Care Document ---
:1945 Author Organization Interface Problems Problem Status Onset Classification Date Comments Source Date Reported DIVERTICULITIS Active 10/04/[address] DIVERTICULITIS Active 10/04/19 [facility] WITH BLEEDING/ KATHLEEN [address] [place] [address] Sepsis Active 01/16/20 Finding 01/22/[address] [facility] Urinary tract Active 01/16/20 Finding 01/22/[address] [facility] [facility] Repeated falls Active 09/05/20 Finding 01/22/[address] [facility] Dysphagia Active 09/05/20 Finding 01/22/[address] [facility] Benign prostatic Active 06/04/20 Finding 01/22/[address] hyperplasia [facility] Nicotine Active 06/04/20 Finding 01/22/[address] dependence [facility] Depression with Active 06/04/20 Finding 01/22/[address] anxiety [facility] Right kidney mass Active 06/04/20 Finding 01/22/[address] [facility] Diabetes mellitus Active 06/04/20 Finding 01/22/[address] [facility] Coronary artery Active 06/04/20 Finding 01/22/[address] disease [facility] Bilateral lower Active 06/04/20 Finding 01/22/[address] extremity edema [facility] Congestive heart Active 06/04/20 Finding 01/22/[address] [facility] [address] failure [facility] Atrial Active 06/04/20 Finding 01/22/[address] fibrillation [facility] Avascular necrosis Active 06/04/20 Finding 01/22/[address] [facility] bone of right [facility] [place] Chronic Active 06/04/20 Finding 01/22/[address] obstructive [facility] pulmonary disease [place] Hypertension Active 06/04/20 Finding 01/22/[address] [facility] Hypomagnesemia Active 06/04/20 Finding 01/22/[address] [facility] [facility] Chronic Active 05/21/20 Finding 01/22/[address] anticoagulation [facility] B12 deficiency Active 07/18/20 Finding 01/22/[address] [facility] [facility] Acute renal Resolved 07/16/20 Finding 01/22/[address] failure [facility] Low blood pressure Active 07/16/20 Finding 01/22/[address] [facility] Lower extremity Active 07/10/20 Finding 01/22/[address] edema [facility] Shortness of Active 07/10/20 Finding 01/22/[address] breath [facility] Hematuria Active 07/10/20 Finding 01/22/[address] [facility] Renal Active 07/10/20 Finding 01/22/[address] insufficiency [facility] UTI Active 04/06/20 Finding 01/22/[address] [facility] [facility] Atrial flutter Active 04/06/20 Finding 01/22/2018 [facility] Weakness Active 04/06/20 Finding 01/22/[address] [facility] FALL/SOB Active 01/09/20 [facility] 16 CHF (<span Resolved Problem 01/14/2016 [facility] ID="[id number]"> Confirmed</span>) Cholecystectomy Active Problem 01/14/2016 [facility] COPD Active Problem 01/14/2016 [facility] Current smoker Active Problem 01/14/2016 [facility] DM , type 2(<span Resolved Problem 01/14/2016 [facility] ID="[id number]"> Confirmed</span>) DM - Diabetes Active Problem 01/14/2016 [facility] mellitus History of repair Active Problem 01/14/2016 [facility] of umbilical hernia HLD (<span Resolved Problem 01/14/2016 [facility] ID="[id number]"> Confirmed</span>) HTN (<span Resolved Problem 01/14/2016 [facility] ID="[id number]"> Confirmed</span>) HTN - Hypertension Active Problem 01/14/2016 [facility] [place] - 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 Bacteremia Active Finding 01/22/[address] [facility] Edema Active Finding 01/22/[address] [facility] Pericardial Active Finding 01/22/[address] [facility] [address] effusion [facility] PNEUMONIA, Active [facility] UNSPECIFIED ORGANISM DVTRCLI OF INTEST, Active [facility] PART UNSP, W/O Medical PERF O Center Medications Medication Details Route Status Patient Ordering Order Source Instructions Provider Date Meropenem EVERY EIGHT Active [facility] Spironolactone DAILY Active [facility] Finasteride DAILY Active [facility] Glipizide TWICE DAILY Active [facility] Ipratropium/Albu Q6H PRN For Active terol Sulfate Wheezing 2018 [facility] Furosemide DAILY Active [facility] Magnesium Oxide AT BEDTIME Active [facility] Gabapentin TWICE DAILY Active [facility] Lisinopril DAILY Active [facility] Ranolazine TWICE DAILY Active [facility] Sertraline Hcl DAILY Active [facility] Tamsulosin Hcl AT BEDTIME Active [facility] Zinc DAILY Active [facility] Alprazolam AT BEDTIME Active [facility] Apixaban TWICE DAILY Active [facility] Carvedilol TWICE DAILY Active [facility] Hydrocodone THREE TIMES A Active . 7.5/Apap 325 DAY [facility] Ranolazine DAILY Active 04/18[facility] Spironolactone DAILY Active [facility] [place] Cefdinir TWICE DAILY Active [facility] [place] Albuterol EVERY 4 HOURS Active [facility] St[facility] Sulfate NEEDED PRN 2017 [facility] Shortness [place] Of Breath Ipratropium/Albu TWICE DAILY Active [facility] St[facility] terol Sulfate 2017 [facility] [place] Hydralazine TWICE DAILY Active [facility] [place] Budesonide/Formo TWICE DAILY Active [facility] St[facility] terol Fumarate 2017 [facility] Nitroglycerin [id number] PRN For Active Suggs [facility] St[facility] Chest Pain [facility] [place] Cefdinir TWICE DAILY Active [facility] [place] Lisinopril DAILY Active [facility] St[facility] 2017 [facility] [place] Metolazone DAILY Active [facility] St[facility] 2016 [facility] [place] Ciprofloxacin TWICE DAILY Active Maurice [facility] St[facility] Hcl 2016 [facility] [place] Hydralazine THREE TIMES A Active [facility] . DAY [facility] Sotalol Hcl DAILY Active [facility] St[facility] 2016 [facility] [place] Tamsulosin Hcl DAILY Active [facility] 2016 [facility] [place] Diltiazem Tab Q6H Active [facility] Carvedilol DAILY Active [facility] Furosemide DAILY Active [facility] . [facility] Minoxidil TWICE DAILY Active [facility] St[facility] carvedilol 12.5 12.5 mg=1 tab, Active mg oral tablet PO, Q12H, # 60 2015 tab, 0 Refill(s) predniSONE 20 mg 40 mg=2 tab, Active oral tablet PO, Daily, X 7 2015 day, # 14 tab, 0 Refill(s) Cefuroxime 500 500 mg=1 tab, Active MG Oral Tablet PO, BID, X [address] [facility] day, # 14 tab, 0 Refill(s) Nebulizer 1 ea, MISC, Active ONCALL, # 1 ea, 2015 [facility] 0 Refill(s) Albuterol 0.83 2.49 mg=3 mL, Active MG/ML Inhalant INHALATION, 2015 [facility] Solution Q6H, # 120 ea, 0 Refill(s) Advair Diskus 1 puff, Active 250 mcg-50 mcg INHALATION, 2015 [facility] inhalation BID, # 1 ea, 0 powder Refill(s) remove patch 1 patch, Route: Inactive TOP, Drug form: 2015 [facility] ERFILM, Daily, Start date: 01/11/16 9:00:00 CDT, Duration: 30 day, Stop date: 02/09/16 9:00:00 CDTNotes: Remove old patch before application of new patch. WASTE: F/P - P Waste Black; E - P Waste Black Levemir 12 unit, 0.12 No Longer mL, Route: Active 2015 [facility] SUB-Q, Drug form: INJ, Q12H, Dosing Weight 106.506, kg, Start date: 01/10/16 21:00:00 CDT, Duration: 30 day, Stop date: 02/09/16 9:00:00 CDTNotes: Same as Levemir Do not hold insulin without contacting prescriber WASTE: F/P - Black; E - Municipal Trash Bin "single patient use only" Nicotine 21 mg, 1 patch, No Longer Route: TOP, Active 2015 [facility] Drug form: ERFILM, Daily, Dosing Weight 106.506, kg, Start date: 01/10/16 16:00:00 CDT, Duration: 30 day, Stop date: 02/09/16 9:00:00 CDTNotes: (Same as: Habitrol) "Remove old patch before application of new patch" WASTE: F/P - P Waste Black; E - P Waste Black Omeprazole 20 mg, Route: No Longer PO, Daily, Active 2015 [facility] Dosing Weight 107.273, kg, Start date: 01/10/16 9:00:00 CDT, Duration: 30 day, Stop date: 02/08/16 9:00:00 CDT Lisinopril 20 mg, 1 tab, Inactive Route: PO, Drug 2015 [facility] form: TAB, Daily, Dosing Weight 107.273, kg, Start date: 01/10/16 9:00:00 CDT, Duration: 30 day, Stop date: 02/08/16 9:00:00 CDTNotes: (Same as: Prinivil, Zestril) Coreg 12.5 mg, 1 tab, No Longer Route: PO, Drug Active 2015 [facility] form: TAB, Q12H, Dosing Weight 106.506, kg, Priority: NOW, Start date: 01/10/16 8:06:00 CDT, Duration: 30 day, Stop date: 02/08/16 21:00:00 CDTNotes: Give with food. (Same As: Coreg) Rocephin 1 gm, Route: No Longer IVPB, [id number], Active 2015 [facility] Dosing Weight 107.273, kg, Start date: 01/10/16 3:00:00 CDT, Duration: 30 day, Stop date: 02/08/16 3:00:00 CDTNotes: (Same As: Rocephin). Use with 100 mL NS and infuse over 30 min MEDICATION WASTE Product Size: 1000 mg Product Wasted: ___ mg Levofloxacin 750 mg, 150 mL, No Longer Route: IVPB, Active 2015 [facility] Drug form: SOLN, [id number], Dosing Weight 107.273, kg, Start date: 01/10/16 3:00:00 CDT, Duration: 30 day, Stop date: 02/08/16 3:00:00 CDTNotes: (Same as:Levaquin) atorvastatin 40 mg, 1 tab, No Longer Route: PO, Drug Active 2015 [facility] form: TAB, Bedtime, Dosing Weight 107.273, kg, Start date: 01/09/16 21:00:00 CDT, Duration: 30 day, Stop date: 02/07/16 21:00:00 CDTNotes: (Same as: Lipitor) tamsulosin 0.4 mg, 1 cap, No Longer Route: PO, Drug Active 2015 [facility] form: CAP, Daily, Dosing Weight 107.273, kg, Start date: 01/09/16 21:00:00 CDT, Duration: 30 day, Stop date: 02/07/16 21:00:00 CDTNotes: (Same As: Flomax) "Do Not Crush" Sotalol 80 mg, 1 tab, No Longer Hydrochloride AF Route: PO, Drug Active 2015 [facility] form: TAB, BID, Dosing Weight 107.273, kg, Start date: 01/09/16 21:00:00 CDT, Duration: 30 day, Stop date: 02/08/16 9:00:00 CDTNotes: (Same As: Betapace) Sertraline 100 mg, 2 tab, No Longer Route: PO, Drug Active 2015 [facility] form: TAB, Bedtime, Dosing Weight 107.273, kg, Start date: 01/09/16 21:00:00 CDT, Duration: 30 day, Stop date: 02/07/16 21:00:00 CDTNotes: (Same as: Zoloft) Ranexa 500 mg, 1 tab, No Longer Route: PO, Drug Active 2015 [facility] form: TAB, BID, Dosing Weight 107.273, kg, Start date: 01/09/16 21:00:00 CDT, Duration: 30 day, Stop date: 02/08/16 9:00:00 CDTNotes: Same as Ranexa "Do Not Crush" Metoprolol 5 mg, 5 mL, Inactive Route: IV, Drug 2015 [facility] form: INJ, ONCE, Dosing Weight 106.506, kg, Start date: 01/09/16 16:56:00 CDT, Stop date: 01/09/16 16:56:00 CDTNotes: (Same as: Lopressor) Push over 2 minutes Protonix 40 mg, 1 tab, No Longer Route: PO, Drug Active 2015 [facility] form: ECTAB, Before Dinner, Start date: 01/09/16 16:30:00 CDT, Duration: 30 day, Stop date: 02/07/16 16:30:00 CDTNotes: Tablet should not be chewed or crushed. (Same as: Protonix) Furosemide 40 MG 40 mg, 1 tab, No Longer Oral Tablet Route: PO, Drug Active 2015 [facility] form: TAB, BID Diuretic, Dosing Weight 107.273, kg, Start date: 01/09/16 16:00:00 CDT, Duration: 30 day, Stop date: 02/08/16 8:00:00 CDTNotes: (Same as: Lasix) May cause GI upset. Give with food or milk. Solu-Medrol 40 mg, 1 mL, No Longer Route: IVP, Active 2015 [facility] Drug form: INJ, Q8H, Dosing Weight 107.273, kg, Start date: 01/09/16 16:00:00 CDT, Duration: 30 day, Stop date: 02/08/16 8:00:00 CDTNotes: (Same as:Solu-MEDROL, A-Methapred) gabapentin 300 300 mg, 1 cap, No Longer MG Oral Capsule Route: PO, Drug Active 2015 [facility] form: CAP, TID, Dosing Weight 107.273, kg, Start date: 01/09/16 14:00:00 CDT, Duration: 30 day, Stop date: 02/08/16 6:00:00 CDTNotes: (Same as: Neurontin) Aspirin 81 MG 81 mg, 1 tab, No Longer Enteric Coated Route: PO, Drug Active 2015 [facility] Tablet form: ECTAB, Daily, Dosing Weight 107.273, kg, Start date: 01/09/16 14:00:00 CDT, Duration: 30 day, Stop date: 02/08/16 9:00:00 CDTNotes: Do not crush or chew. (Same As: Ecotrin) Insulin, Aspart, 2 unit, 0.02 No Longer Human mL, Route: Active 2015 [facility] SUB-Q, Drug form: SOLN, Bedtime, Dosing [...] 50% 12.5 gm, 25 mL, No Longer Syringe Route: IVP, Active 2015 [facility] Drug Form: INJ, Dosing Weight 107.273, kg, PRN, PRN Blood Glucose Results, Start date: 01/09/16 9:17:00 CDT, Duration: 30 day, Stop date: 02/08/16 9:16:00 CDT Glucagon 1 mg, Route: No Longer IM, Drug form: Active 2015 [facility] PDR/INJ, PRN, Dosing Weight 107.273, kg, PRN Blood Glucose Results, Start date: 01/09/16 9:17:00 CDT, Duration: 30 day, Stop date: 02/08/16 9:16:00 CDT Albuterol 0.833 3 ml, Route: No Longer MG/ML / NEB, Drug Form: Active 2015 [facility] Ipratropium SOLN, Dosing [place] 0.167 Weight 107.273, MG/ML Inhalant kg, PRN, PRN Solution Respiratory [DuoNeb] Protocol, Start date: 01/09/16 9:11:00 CDT, Duration: 30 day, Stop date: 02/08/16 9:10:00 CDTNotes: (Same as: Duoneb) Enoxaparin 40 mg, 0.4 mL, No Longer Route: SUB-Q, Active 2015 [facility] Drug form: INJ, [id number], Dosing Weight 107.273, kg, Start date: 01/09/16 9:00:00 CDT, Duration: 30 day, Stop date: 02/07/16 9:00:00 CDTNotes: (Same as: Lovenox) Alprazolam 0.5 1 mg=2 tab, PO, No Longer MG Oral Tablet Bedtime, [address] [facility] Refill(s) Furosemide 40 MG 40 mg=1 tab, Active Oral Tablet PO, BID, [address] [facility] Refill(s) minoxidil 2.5 mg 2.5 mg=1 tab, No Longer oral tablet PO, BID, 0 Active 2016 [facility] Refill(s) Potassium 20 mEq=1 tab, No Longer Chloride 20 MEQ PO, BID, [address] [facility] Extended Release Refill(s) Tablet atorvastatin 40 40 mg=1 tab, Active mg oral tablet PO, Bedtime, 0 2016 [facility] Refill(s) tamsulosin 0.4 0.4 mg=1 cap, Active mg oral capsule PO, Daily, 0 2016 [facility] Refill(s) sertraline 100 100 mg=1 tab, Active mg oral tablet PO, Bedtime, 0 2016 [facility] Refill(s) promethazine 25 25 mg=1 tab, No Longer mg oral tablet PO, Q8H, PRN Active 2016 [facility] Nausea, 0 Refill(s) carvedilol 25 mg 25 mg=1 tab, No Longer oral tablet PO, Daily, 0 Active 2016 [facility] Refill(s) Omeprazole 20 mg, PO, Active Daily, 0 2016 [facility] Refill(s) gabapentin 300 300 mg=1 cap, Active MG Oral Capsule PO, TID, 0 2016 [facility] Refill(s) glimepiride 2 mg 2 mg=1 tab, PO, No Longer oral tablet BID, 0 Active 2016 [facility] Refill(s) niacin 500 mg 1,000 mg=2 tab, Active oral tablet PO, Bedtime, 0 2016 [facility] Refill(s) lisinopril 20 mg 20 mg=1 tab, Active oral tablet PO, Daily, 0 2016 [facility] Refill(s) Aspirin 81 MG 81 mg=1 tab, Active Enteric Coated PO, Daily, # 90 2016 [facility] Tablet tab, 3 Refill(s) Sotalol 80 mg=1 tab, Active Hydrochloride AF PO, BID, 0 2016 [facility] 80 mg oral Refill(s) tablet Ranexa 500 mg, PO, Active BID, 0 2016 [facility] Refill(s) Glipizide 10 MG 5 mg=0.5 tab, No Longer Oral Tablet PO, BID, [address] [facility] Refill(s) dextromethorphan 10 mL, Route: No Longer -guaiFENesin 10 PO, Drug Form: Active 2015 mg-100 mg/5 mL LIQ, Dosing oral liquid Weight 107.273, kg, Q4H, PRN Cough, Start date: 01/09/16 4:24:00 CDT, Duration: 30 day, Stop date: 02/08/16 4:23:00 CDTNotes: (dextromethorph an-guaifenesin 10-100/5 ml LIQ) (Same as: Robitussin-DM) Ondansetron 4 mg, 2 mL, No Longer Route: IVP, Active 2015 [facility] Drug form: INJ, Q6H, Dosing Weight 107.273, kg, PRN Nausea & Vomiting, Start date: 01/09/16 4:24:00 CDT, Duration: 30 day, Stop date: 02/08/16 4:23:00 CDTNotes: (Same as: Zofran) MEDICATION WASTE Product Size: 4 mg Product Wasted: ___ mg Acetaminophen 650 mg, 2 tab, No Longer Route: PO, Drug Active 2015 [facility] form: TAB, Q4H, Dosing Weight 107.273, kg, PRN Pain Score 1-3, For fever > 100.4. Not to exceed 4 grams in 24 hours, Start date: 01/09/16 4:24:00 CDT, Duration: 30 day, Stop date: 02/08/16 4:23:00 CDTNotes: Do not exceed 4 gm/day. (Same as: Tylenol) Levofloxacin 750 mg, 150 mL, Inactive Route: IV, Drug 2015 [facility] form: SOLN, ONCE, Dosing Weight 107.273, kg, Start date: 01/09/16 2:39:00 CDT, Stop date: 01/09/16 2:39:00 CDTNotes: (Same as:Levaquin) Ceftriaxone 1 gm, Route: Inactive IVPB, Drug 2015 [facility] form: PDR/INJ, ONCE, Dosing Weight 107.273, kg, Priority: STAT, Start date: 01/09/16 2:39:00 CDT, Stop date: 01/09/16 2:39:00 CDTNotes: (Same As: Rocephin). Use with 100 mL NS and infuse over 30 min MEDICATION WASTE Product Size: 1000 mg Product Wasted: ___ mg Albuterol 0.833 3 mL, Route: Inactive MG/ML / INHALATION, 2015 [facility] Ipratropium Drug Form: [place] 0.167 SOLN, Dosing MG/ML Inhalant Weight 107.273, Solution kg, ONCE, Start [DuoNeb] date: 01/09/16 1:51:00 CDT, Stop date: 01/09/16 1:51:00 CDTNotes: (Same as: Duoneb) Tylenol 1,000 mg, 2 Inactive tab, Route: PO, 2015 [facility] Drug form: TAB, ONCE, Dosing Weight 107.273, kg, Priority: STAT, Start date: 01/09/16 1:51:00 CDT, Stop date: 01/09/16 1:51:00 CDTNotes: Max acetaminophen 4000 mg/day (4 gm/day). (Same as: Tylenol Extra Strength) Saline Flush 10 mL, Route: No Longer 0.9% IVP, Drug Form: Active 2015 [facility] INJ, Dosing Weight 107.273, kg, PRN, PRN Line Flush, Start date: 01/09/16 1:46:00 CDT, Duration: 30 day, Stop date: 02/08/16 1:45:00 CDTNotes: (Same as: BD Posiflush) Allergies, Adverse Reactions, Alerts Substance Category Reaction Severity Reaction Status Date Comments Source type Reported hydromorphone Nausea/Vo [facility]ergy [facility] metformin Rash Allergy to [facility] Dilaudid Assertion Drug Active allergy [facility] Immunizations Immunization Date Given Site Status Last Updated Comments Source Results Order Name Results Value Reference Date Interpretation Comments Source Range Retroperit Retroperiton EXAM: US RENAL 10/13 - [place] [facility] Complete /2019 - Medical Complete [facility] This report was dictated by a Redevelopment Specialist/Fellow/ Physician Rn Child. I have personally Center [place] reviewed the images as well as the interpretation and agree with the findings. DATE: 10/13/2018 9:29 SALES DIRECTOR Read by: Frederic Bear MD Resident/Fellow/Physician Rn Child: Frederic Bear MD Dictated Date/time: 10/13/18 11:27 Electronically Signed by: Juan Carlos Hayden MD 10/13/18 15:48 FINAL REPORT INDICATION: - eval bilateral kidneys, obstruction? ADDITIONAL INFORMATION: None. COMPARISON: CT abdomen pelvis 10/10/2018 TECHNIQUE: Multiplanar grayscale and color Doppler ultrasound of the kidneys and urinary bladder. Exam quality limited by overlying bowel gas. FINDINGS: Right kidney: Size: 12.1 x 5.4 x 6 cm. Cortical thickness: Normal. Hydronephrosis: None. Echogenicity: Normal. Calculi: None. Cysts/Masses: There is a 5 x 5.6 x 4 cm heterogeneously hypoechoic mass arising from the midpole of the right kidney. It demonstrates no significant internal vascularity on color Doppler images. Left kidney: Size: 4.3 cm in width. Evaluation of the remainder of the dimensions is limited by overlying bowel gas. The left kidney is poorly visualized, but there is no hydronephrosis or mass identified Bladder: Normal. Free fluid: None. Other: None. IMPRESSION: 1. 5.6 cm mass arising from the right kidney most likely represents renal cell carcinoma. 2. Poorly visualized left kidney. Within this limitation, no hydronephrosis is identified bilaterally. Abdomen/Pe Abdomen/Pelv EXAM: CT ABDOMEN AND PELVIS WITH CONTRAST 10/10 - [facility] w IV is w IV - Medical contrast contrast CT This report was dictated by a Redevelopment Specialist /Fellow/Physician Rn Child. I have personally Center CT reviewed the images as well as the interpretation and agree with the findings. DATE: 10/10/2018 14:27 SALES DIRECTOR Read by: Margaret Lagunas (Fellow) Resident/Fellow/Physician Rn Child: Margaret Lagunas (Fellow) Dictated Date/time: 10/11/18 10:39 Electronically Signed by: Chitra Pulido 10/11/18 11:23 FINAL REPORT INDICATION: - abdominal distention ADDITIONAL INFORMATION: Patient presented on 10/05/2018 for concern for perforated diverticulum. COMPARISON: 10/04/2018 TECHNIQUE: Volumetric CT of the abdomen and pelvis is acquired following the intravenous administration of contrast. Axial, coronal and sagittal images are provided. IV contrast: 140 mL of Visipaque 320 Enteric contrast: None. DLP: 2169 mGy-cm FINDINGS: Lines, tubes and hardware: None. Lower thorax: Small bilateral pleural effusions and adjacent atelectasis. Liver: 1.6 cm arterially enhancing lesion in segment 6 (image 37 of series 5) that remains hyperdense on delayed imaging to the level of the blood pool ( image 39 of series 9). Biliary tree: No intra- or extrahepatic biliary ductal dilation. Gallbladder: Surgically absent. Pancreas: Normal. Spleen: Normal. Adrenals: Normal. Kidneys and ureters: There is a 5.8 x 5.0 x 4.2 cm arterially enhancing mass in the interpolar region of the right kidney. There are scattered cysts in the kidneys, some of which are too small to furthe r characterize. The largest on the left is a 1.7 cm cyst with simple density. No hydronephrosis. Bladder: Decompressed with Iraheta catheter in place. Small amount of air in the bladder. Reproductive organs: Status post prostatectomy. Gastrointestinal tract: Stomach: Normal. Small bowel: Normal. Colon: There are areas of gaseous distention of the sigmoid colon which measures up to 7.8 cm in diameter without evidence of obstruction. Appendix: Normal. Peritoneum, mesentery and retroperitoneum: The previously identified well marginated fluid collection adjacent to the rectosigmoid and just superior to the bladder persists. There is a small amount of i ncrease in ill-defined fluid adjacent to this fluid collection. The fluid collection itself appears slightly smaller, previously approximately 7.4 x 4.5 cm, now 5.2 x 3.0 cm. There is persistent mild me sorectal fat stranding. Nonspecific presacral fluid and fat stranding seen. Lymph nodes: Normal. Vasculature: Aorta and branches: Severe atherosclerotic calcification abdominal aorta and iliac vessels. IVC and veins: Normal. Portal vasculature: Normal. Bones: Status post post right total hip arthroplasty. 2.0 x 1.8 cm lucent lesion in L4 likely represents a large Schmorl's node. Soft tissues: Small fat-containing left inguinal hernia. 2.3 x 1.7 cm subcutaneous lesion at the right flank may represent a small epidermal inclusion cyst. IMPRESSION: 1. Persistent nonspecific fluid collection within the rectosigmoid and superior bladder wall which appears slightly smaller. 2. Enhancing right renal mass consistent with renal cell carcinoma. 3. Tiny hepatic segment 6 hemangioma. 4. Gaseous distention of the sigmoid colon to 7.7 cm without evidence of obstruction. 5. Small bilateral pleural effusions. Abdomen Abdomen EXAM: XR ABDOMEN 2 VIEWS 10/10 - [facility] acute acute series /2019 - Medical series w w chest 1 EXAM: CHEST 1 VIEW [place] chest 1 view DX view DX Read by: Alexandr Ferguson MD Dictated Date/time: 10/10/18 13:13 DATE: 10/10/2018 9:04 SALES DIRECTOR Electronically Signed by: Alexandr Ferguson MD 10/10/18 13:23 FINAL REPORT INDICATION: - concern for ileus ADDITIONAL INFORMATION: None. COMPARISON: Chest x-ray 10/10/2018, KUB 10/09/2018. TECHNIQUE: A single frontal view of the chest and upright and/or decubitus and supine abdominal radiographs were done. Number of images: 7 FINDINGS: Lines and tubes: Iraheta catheter. Chest: There is mild bilateral lower lobe residual airspace disease. The remainder of lungs are clear. Pneumothorax: None Vascularity: Normal pulmonary vascularity.. Heart size: Upper limits of normal for technique. The mediastinal contours are normal. Bowel: No free air is seen. There is dilatation of the transverse, descending colon measuring up to 8 cm. The sigmoid colon measures up to 10 cm. These measurements have mildly increased since the prior study. The small bowel is normal in caliber. Bones. No acute abnormalities seen. Stool burden: Moderate. Soft Tissues: Mild. IMPRESSION: 1. Mild interval increase in size of the dilated colon, the largest of which is likely the sigmoid colon. The small bowel is normal in caliber. Review of the outside CT from 10/04/2018 demonstrates cir cumferential sigmoid colonic thickening that may represent an inflammatory or infectious process. Follow-up KUB after evacuation to reassess the colonic ileus. Follow-up CT abdomen pelvis can be done af ter treatment to confirm interval resolution of the sigmoid thickening. 2. Tubes as above. Chest Chest 1view EXAM: XR CHEST 1 VIEW 10/10 - [facility] 1view DX DX /2019 [facility] DATE: 10/10/2018 3:00 SALES DIRECTOR Read by: Ashwin Hoff MD Dictated Date/time: 10/10/18 09:43 Electronically Signed by: Ashwin Hoff MD 10/10/18 09:44 FINAL REPORT INDICATION: SOB - SOB COMPARISON: Semierect AP chest x-ray 2 days prior. TECHNIQUE: AP chest FINDINGS: Patchy opacities in the lower lungs have improved from the prior exam however there is residual opacity in the left lung base. This opacity may represent subsegmental atelectasis however superimposed consolidation cannot be excluded. The cardiac mediastinal silhouette is prominent but stable. Musculoskeletal findings are unchanged. IMPRESSION: Improved aeration of the lungs with residual opacity in the left lung base. Abdomen AP Abdomen AP EXAM: XR ABDOMEN 1 VIEW 10/09 - [facility] DX DX /2018 [facility] DATE: 10/09/2018 20:22 SALES DIRECTOR Read by: Alexandr Ferguson MD Dictated Date/time: 10/10/18 10:11 Electronically Signed by: Alexandr Ferguson MD 10/10/18 10:21 FINAL REPORT INDICATION: - not eating diet, distended ADDITIONAL INFORMATION: None. COMPARISON: None. TECHNIQUE: AP view of the abdomen. Number of images: 4 FINDINGS: Transesophageal suction tube: None. Transesophageal feeding tube: None. Other tubes, lines, coils and hardware: Iraheta catheter. Right hip total prosthesis. Bowel: The colon is mildly dilated up to 6.6 cm with a larger segment of dilatation seen overlying the lumbar spine measuring up to 10 cm. There is a paucity of small bowel gas. Fecal [place]: Moderate. Bones: No acute abnormalities seen. . Soft tissues. Unremarkable. IMPRESSION: 1. Moderate dilatation of a loop of colon overlying the lumbar spine likely representing the sigmoid colon. Additional loops of colon are mildly dilated. There is moderate fecal burden seen within the colon and rectum. Review of the outside CT from 10/04/2018 demonstrates circumferential thickening of the sigmoid colon without dilatation suggesting an inflammatory, infectious or possibly neoplastic p rocess. Follow-up KUB after evacuation to exclude developing ileus or obstruction can be done. Follow-up CT abdomen pelvis can be done after treatment is complete. 2. Tube(s) and/or catheter(s) as above. Chest Chest 1view EXAM: XR CHEST 1 VIEW 10/08 - [facility] 1view DX DX /2018 [facility] DATE: 10/08/2018 3:00 SALES DIRECTOR Read by: Jaimie Toure MD Dictated Date/time: 10/08/18 10:40 Electronically Signed by: Jaimie Toure MD 10/08/18 10:41 FINAL REPORT INDICATION: - pulmonary edema. FINDINGS: Comparison is made to October 07. Cardiomediastinal silhouette is prominent but unchanged. There is smooth narrowing of the mid trachea. Consider PA and lateral views. Small bilateral pleural effusions. There are patchy alveolar opacities in the lungs with a lower lobe predilection which could be due to edema or pneumonia. IMPRESSION:: No significant change. Chest Chest 1view EXAM: XR CHEST 1 VIEW 10/07 - [facility] 1view DX DX /2018 [facility] DATE: 10/07/2018 6:18 SALES DIRECTOR Read by: Jaimie Toure MD Dictated Date/time: 10/07/18 10:23 Electronically Signed by: Jaimie Toure MD 10/07/18 11:04 FINAL REPORT INDICATION: - crackles on exam. FINDINGS: Comparison is made to October 05. Cardiomediastinal silhouette is unchanged. There are alveolar opacities developing in the lungs with a perihilar and lower lobe predilection. Small left pleural effusion. IMPRESSION: 1. Developing bilateral airspace opacities with a lower lobe predilection could be due to edema or pneumonia. 2. Small left pleural effusion. Chest Chest 1view EXAM: XR CHEST 1 VIEW 10/04 - [facility] 1view DX DX /2019 [facility] This report was dictated by a Redevelopment Specialist/Fellow/Physician Rn Child. I have personally Center reviewed the images as well as the interpretation and agree with the findings. DATE: 10/04/2018 23:54 SALES DIRECTOR Read by: Manuel Kemp MD Resident/Fellow/Physician Rn Child: Manuel Kemp MD Dictated Date/time: 10/05/18 00:24 Electronically Signed by: Get Collier 10/05/18 04:26 FINAL REPORT INDICATION: - Undifferentiated Sepsis COMPARISON: Chest x-ray 01/11/2016. TECHNIQUE: AP chest. UT SECTION: ER FINDINGS: Lines, tubes and hardware: None. Lungs and pleura: Linear opacities are present at the left lung base, likely subsegmental atelectasis. Calcified granulomas in the right upper lobe. No pleural effusion. No pneumothorax. Heart and mediastinum: The heart size is borderline enlarged but unchanged. There is mild tortuosity of the thoracic aorta. Bones: No acute abnormality. IMPRESSION: 1. Left basilar subsegmental atelectasis. 2. Borderline cardiomegaly. Laboratory Bedside 130 mg/dl 65 - 120 01/[address] [facility] [address] Studies Glucose /2017 [facility] [place] [facility] White Blood 12.1 K/uL 4.3 - 10.9 01/[address] [facility] [address] Studies Count /2017 [facility] [place] [facility] Red Cell 16.8 % 12.1 - 01/[address] [facility] [address] Studies Distribution 15.2 /2017 [facility] Width [place] [facility] Red Blood 3.63 M/uL 4.33 - 01/21 [facility]. Studies Count 5.43 [facility] Platelet 379 K/uL 152 - 406 01/[address] [facility] [address] Studies Count /2017 [facility] Neutrophils 64.0 % 41.7 - 01/[address] [facility] [address] Studies % 73.7 /2017 [facility] Monocytes % 6.6 % 3.3 - 12.3 01/[address] [facility] [address] Studies /2017 [facility] [place] Mean 8.8 fL 7.6 - 11.3 01/21 [facility]. Studies Platelet /2017 [facility] Volume [place] [facility] Mean 82.6 fL 80 - 100 01/[address] [facility] [address] Studies Corpuscular /2017 [facility] Volume [place] [facility] Mean 32.7 g/dL 32.0 - 01/[address] [facility] [address] Studies Corpuscular 36.0 [facility] Hemoglobin [place] [facility] Mean 27.0 pg 27.0 - 01/21 [facility]. Studies Corpuscular 35.0 [facility] Hemoglobin [place] [facility] Lymphocytes 25.5 % 15.3 - 01/[address] [facility] [address] Studies % 44.8 /2017 [facility] [place] Hemoglobin 9.8 g/dL 13.6 - 01/[address] [facility] [address] Studies 17.9 [facility] Hematocrit 30.0 % 39.6 - 01/[address] [facility] [address] Studies 49.0 /2017 [facility] Eosinophils 3.1 % 0 - 4.4 01/[address] [facility] [address] Studies % /2018 [facility] [place] Basophils % 0.8 % 0 - 1.3 01/[address] [facility] [address] Studies /2018 [facility] [place] Absolute 7.7 K/uL 1.8 - 8.0 01/[address] [facility] [address] Studies Neutrophil /2018 [facility] [place] [facility] Absolute 0.8 K/uL 0.1 - 1.3 01/[address] [facility] [address] Studies Monocytes /2017 [facility] (CBC) [place] [facility] Absolute 3.1 K/uL 0.7 - 4.9 01/[address] [facility] [address] Studies Lymphocytes /2017 [facility] (CBC) [place] [facility] Absolute 0.4 K/uL 0 - 0.5 01/[address] [facility] [address] Studies Eosinophils [facility] (CBC) [place] [facility] Absolute 0.1 K/uL 0 - 0.5 01/[address] [facility] [address] Studies Basophils [facility] (CBC) [place] [facility] Sodium Level 141 mEq/L 135 - 145 01/[address] [facility] [address] Studies /2017 [facility] [place] [facility] Potassium 3.9 mEq/L 3.6 - 5.0 01/[address] [facility] [address] Studies Level 2018 [facility] Magnesium 2.0 mg/dL 1.8 - 2.5 01/[address] [facility] [address] Studies Level /2018 [facility] Glucose 108 mg/dL 65 - 120 01/[address] [facility] [address] Studies Level /2018 [facility] [place] Estimat 74 mL/min 90 01/[address] [facility] [address] Studies Glomerular [facility] Filtration [place] Rate Laboratory Creatinine 0.99 mg/dL 0.61 - 01/[address] [facility] [address] Studies 1. [facility] [place] [facility] Chloride 107 mEq/L 101 - 111 01/[address] [facility] [address] Studies Level 2018 [facility] [place] [facility] Carbon 31 mEq/L 21 - 31 01/[address] [facility] [address] Studies Dioxide /2017 [facility] Level [place] [facility] Calcium 8.6 mg/dL 8.5 - 10.5 01/[address] [facility] [address] Studies Level /2018 [facility] [place] [facility] Blood Urea 17 mg/dL 6 - 20 01/[address] [facility] [address] Studies Nitrogen [facility] [place] [facility] Total 0.3 mg/dL 0.3 - 1.2 01/[address] [facility] [address] Studies Bilirubin [facility] [place] [facility] Serum Total 6.1 g/dL 6.0 - 8.3 01/20 [facility]. Studies Protein /2017 [facility] [place] [facility] Globulin 3.3 g/dL 2.3 - 3.5 01/20 . Studies /2017 [facility] [place] [facility] Aspartate 18 IU/L 10 - 42 01/20 [facility]. Studies Amino Transf /2017 [facility] (AST/SGOT) [place] [facility] Alkaline 76 IU/L 42 - 121 01/20 [facility]. Studies Phosphatase /2017 [facility] [place] [facility] Albumin/Glob 0.8 1.1 - 1.8 01/20 [facility]. Studies ulin Ratio /2017 [facility] [place] [facility] Albumin 2.8 g/dL 3.2 - 5.5 01/20 [facility]. Studies /2017 [facility] Alanine 23 IU/L 10 - 60 01/20 [facility] Studies Aminotransfe /2017 [facility] - rase [place] (ALT/SGPT) Microbiolo Escherichia Escherichi 01/17 [facility] gy Studies Coli a Coli /2017 [facility] [place] [facility] Procalcitoni 1.61 ng/mL 01/16 [facility] Studies n /2017 [facility] [place] [facility] Urine Urine 01/14 [facility] Studies Leukocyte Leukocyte /2017 [facility] Esterase Esterase [place] [facility] Urine pH 5.5 01/14 [facility]. Studies /2017 [facility] [place] [facility] Urine Total Urine 01/14 [facility] Studies Protein Total /2017 [facility] Protein [place] [facility] Urine 1.020 01/14 [facility]. Studies Specific /2017 [facility] [place] [facility] Urine Urine 01/14 [facility] Studies Nitrite Nitrite /2017 [facility] [place] [facility] Urine Urine 01/14 [facility] Studies Ketones Ketones /2017 [facility] [place] [facility] Urine Urine 01/14 [facility] Studies Glucose Glucose /2017 [facility] [place] [facility] Urine Blood Urine 01/14 [facility]. Studies Blood /2017 [facility] [place] [facility] Blood Blood 01/14 [facility] Studies Morphology Morphology /2017 [facility] Comment Comment [place] [facility] Direct 0.3 mg/dL 0 - 0.2 01/14 [facility] Studies Bilirubin /2017 [facility] [place] [facility] Prothrombin 32.8 9.5 - 12.5 01/14 [facility]. Studies Time SECONDS [facility] [place] [facility] INR 2.75 01/14 [facility]. Studies Internationa /2017 [facility] l Normalized [place] Ratio Laboratory Activated 52.2 24.3 - 01/14 [facility] Studies Partial SECONDS 36.9 [facility] - Thromboplast [place] Time Laboratory Lactic Acid 9.3 mg/dL 4.5 - 19.8 01/[address] [facility] [address] Studies Level /2017 [facility] [place] [facility] Creatine 1.0 ng/ml 0.3 - 4.0 01/14 [facility]. Studies Kinase MB /2017 [facility] - [place] [facility] B-Type 507 pg/ml 01/14 [facility]. Studies Natriuretic [facility] Peptide [place] [facility] Creatine 95 IU/L 22 - 269 01/14 [facility]. Studies Kinase /2017 [facility] [place] [facility] Rapid null 01/14 [facility] Studies Troponin I kes - [place] [facility] Lipase 13 U/L 22 - 51 01/14 [facility]. Studies /2017 [facility] [place] CHEM PANEL BUN 34 mg/dL 7 - 22 01/10 [facility] CHEM PANEL Glucose Lvl 294 mg/dL 70 - 99 01/10 [facility] CHEM PANEL eGFR 61 01/10 Result Comment: The eGFR is calculated using the CKD-EPI formula. In most young, healthy individuals the eGFR will be >90 mL/ min/1.73m2. The eGFR declines with age. An eGFR of 60-89 may be normal in mL/min/1.7 some populations, particularly the elderly, for whom the CKD-EPI formula has not been extensively validated. Use of the eGFR is not recommended in the following populations: [facility] 3m2 Individuals with unstable creatinine concentrations, [...] mg/dL 8.5 - 10.5 01/10 [facility] CHEM PANEL AGAP 11.7 meq/L 10.0 - 01/10 MH 20.0 /2015 [facility] CHEM PANEL Sodium Lvl 138 meq/L 135 - 145 01/10 [facility] CHEM PANEL Creatinine 1.18 mg/dL 0.50 - 01/10 [facility] Lvl 1.40 /2015 [facility] CHEM PANEL Chloride Lvl 105 meq/L 95 - 109 01/10 [facility] CHEM PANEL Potassium 3.7 meq/L 3.5 - 5.1 01/10 Lvl /2015 [facility] CHEM PANEL CO2 25 meq/L 24 - 32 01/10 [facility] HEMATOLOGY MPV 8.8 fL 7.4 - 10.4 01/10 [facility] HEMATOLOGY RDW 18.1 % 11.5 - 01/10 14.5 /2015 [facility] HEMATOLOGY MCH 26.2 pg 27.0 - 01/[address] [facility] HEMATOLOGY MCHC 32.6 g/dL 32.0 - 01/[address] [facility] HEMATOLOGY Platelet 331 K/CMM 133 - 450 01/10 [facility] HEMATOLOGY Hct 32.4 % 42.0 - 01/[address] [facility] HEMATOLOGY Hgb 10.6 g/dL 14.0 - 01/[address] [facility] HEMATOLOGY MCV 80.4 fL 80.0 - 01/[address] [facility] HEMATOLOGY RBC 4.03 M/CMM 4.70 - 01/[address] [facility] HEMATOLOGY WBC 22.3 K/CMM 3.7 - 10.4 01/10 [facility] Chest Chest 1view Clinical Indication: Pneumonia 01/10 - 1view DX DX /2015 - [facility] Comparison: 01/10/2016 Read by: Ron Orellana [...] HEMATOLOGY MCH 26.4 pg 27.0 - 01/09 31.0 /2015 [facility] HEMATOLOGY MCHC 32.5 g/dL 32.0 - 01/09 MH 36.0 /2016 [facility] HEMATOLOGY MCV 81.2 fL 80.0 - 01/09 94.0 /2016 [facility] HEMATOLOGY Platelet 270 K/CMM 133 - 450 01/09 /2015 [facility] HEMATOLOGY MPV 8.3 fL 7.4 - 10.4 01/09 /2015 [facility] HEMATOLOGY RDW 18.1 % 11.5 - 01/09 14.5 /2015 [facility] HEMATOLOGY WBC 15.8 K/CMM 3.7 - 10.4 01/09 /2015 [facility] HEMATOLOGY RBC 4.13 M/CMM 4.70 - 01/09 6.10 /2015 [facility] HEMATOLOGY Hct 33.5 % 42.0 - 01/09 54.0 /2016 [facility] HEMATOLOGY Hgb 10.9 g/dL 14.0 - 01/09 18.0 /2016 [facility] ELECTROLYT AGAP 9.9 meq/L 10.0 - 01/[address] [facility] ELECTROLYT eGFR 65 01/09 Result Comment: The eGFR is calculated using the CKD-EPI formula. In most young, healthy individuals the eGFR will be >90 mL/ min/1.73m2. The eGFR declines with age. An eGFR of 60-89 may be normal in ES mL/min/1.7 some populations, particularly the elderly, for whom the CKD-EPI formula has not been extensively validated. Use of the eGFR is not recommended in the following populations: [facility] 3m2 Individuals with unstable creatinine concentrations, [...] 8.6 mg/dL 8.5 - 10.5 01/09 ES /2015 [facility] ELECTROLYT Glucose Lvl 209 mg/dL 70 - 99 01/09 ES /2015 [facility] ELECTROLYT BUN 23 mg/dL 7 - 22 01/09 ES /2015 [facility] ELECTROLYT Creatinine 1.12 mg/dL 0.50 - 01/09 [facility] Lvl 1.40 /2015 [facility] ELECTROLYT Sodium Lvl 139 meq/L 135 - 145 01/[address] [facility] ELECTROLYT Potassium 3.9 meq/L 3.5 - 5.1 01/09 ES Lvl /2015 [facility] ELECTROLYT Chloride Lvl 107 meq/L 95 - 109 01/[address] [facility] ELECTROLYT CO2 26 meq/L 24 - 32 01/[address] [facility] VIRAL - Influ B Negative Negative 01/[address] [facility] (01/10/16 5:04 AM) VIRAL - Influ A Negative Negative 01/[address] [facility] (01/10/16 5:04 AM) Chest Chest 1view Study: Chest 1view DX 01/10/2016 3:00 AM CDT 01/09 - 1view DX DX - [facility] Ordering Physician: Artemio Lopez MD Clinical [...] limit of normal or mildly enlarged. SL: [id number] CHEM PANEL eGFR 56 01/08 Result Comment: [...] recommended in the following populations: [facility] 3m2 Individuals with unstable creatinine concentrations, [...] 1.28 mg/dL 0.50 - 01/08 Lvl 1.40 /2015 [facility] HEMATOLOGY PTT 49.7 s 22.9 - 01/08 MH 35.8 /2015 [facility] HEMATOLOGY Platelet 242 K/CMM 133 - 450 01/08 [facility] CHEM PANEL Procalcitoni 0.32 ng/mL 0.00 - 01/[address] [facility] VIRAL - Influ A Negative Negative 01/[address] [facility] (01/09/16 4:21 AM) VIRAL - Influ B Negative Negative 01/[address] [facility] (01/09/16 4:21 AM) CHEM PANEL Lactic Acid 0.9 mMol/L 0.5 - 2.2 01/[address] [facility] CARDIAC Troponin-I 0.07 ng/mL 0.00 - 01/08 ENZYMES 0.40 /2015 [facility] CARDIAC CK MB 0.9 ng/mL 0.5 - 3.6 01/[address] [facility] CARDIAC Total CK 122 unit/L 12 - 191 01/[address] [facility] CARDIAC BNP 217 pg/mL <=100 01/08 [facility] pg/mL /2015 [facility] CARDIAC CK MB Index 0.7 0.0 - 2.5 01/[address] [facility] CHEM PANEL Glucose Lvl 114 mg/dL 70 - 99 01/08 [facility] CHEM PANEL BUN 20 mg/dL 7 - 22 01/08 [facility] CHEM PANEL Potassium 4.2 meq/L 3.5 - 5.1 01/[address] [facility] CHEM PANEL Sodium Lvl 137 meq/L 135 - 145 01/08 [facility] CHEM PANEL A/G Ratio 0.8 0.7 - 1.6 01/08 [facility] CHEM PANEL Globulin 4.3 g/dL 2.0 - 4.0 01/08 [facility] CHEM PANEL B/C Ratio 15 6 - 25 01/08 [facility] CHEM PANEL Bili Total 0.9 mg/dL 0.2 - 1.3 01/08 /2015 [facility] CHEM PANEL Alk Phos 106 unit/L 39 - 136 01/08 [facility] CHEM PANEL AST 9 unit/L 0 - 37 01/08 [facility] CHEM PANEL ALT 26 unit/L 0 - 65 01/08 [facility] CHEM PANEL AGAP 11.2 meq/L 10.0 - 01/08 MH 20.0 [facility] CHEM PANEL Calcium Lvl 9.0 mg/dL 8.5 - 10.5 01/08 [facility] CHEM PANEL CO2 27 meq/L 24 - 32 01/08 [facility] CHEM PANEL Chloride Lvl 103 meq/L 95 - 109 01/08 [facility] CHEM PANEL Total 7.7 g/dL 6.4 - 8.4 01/08 [facility] CHEM PANEL Albumin Lvl 3.4 g/dL 3.5 - 5.0 01/08 [facility] HEMATOLOGY MCV 81.3 fL 80.0 - 01/[address] [facility] HEMATOLOGY MCHC 32.4 g/dL 32.0 - 01/[address] [facility] HEMATOLOGY MCH 26.4 pg 27.0 - 01/08 MH 31.0 /2015 [facility] HEMATOLOGY RDW 18.3 % 11.5 - 01/[address] [facility] HEMATOLOGY MPV 8.2 fL 7.4 - 10.4 01/08 /2015 [facility] HEMATOLOGY RBC 4.33 M/CMM 4.70 - 01/08 MH 6.10 /2015 [facility] HEMATOLOGY WBC 19.3 K/CMM 3.7 - 10.4 01/08 [facility] HEMATOLOGY Hgb 11.4 g/dL 14.0 - 01/[address] [facility] HEMATOLOGY Hct 35.2 % 42.0 - 01/08 MH 54.0 /2015 [facility] HEMATOLOGY Basophils 0.4 % 0.0 - 1.0 01/08 [facility] HEMATOLOGY Eosinophils 0.1 % 0.0 - 4.0 01/08 [facility] HEMATOLOGY Lymphocytes 1.7 K/CMM 1.0 - 5.5 01/08 MH # /2015 [facility] HEMATOLOGY Segs-Bands # 15.2 K/CMM 1.5 - 8.1 01/08 [facility] HEMATOLOGY Monocytes # 2.3 K/CMM 0.0 - 0.8 04/11 MH /2016 [facility] HEMATOLOGY Basophils # 0.1 K/CMM 0.0 - 0.2 01/08 [facility] HEMATOLOGY Segs 78.5 % 45.0 - 01/08 MH 75.0 /2015 [facility] HEMATOLOGY Lymphocytes 9.1 % 20.0 - 01/08 MH 40.0 /2015 [facility] HEMATOLOGY Monocytes 11.9 % 2.0 - 12.0 01/08 [facility] Brain wo Brain wo Clinical Indication: Altered level of consciousness - contrast contrast CT /2015 - [facility] CT Comparison: None Read by: Ron [...] or retention cyst left maxillary sinus. SL: [id number] Chest Chest 1view Clinical Indication: Chest pain HX: pt called EMS x 6 in the last 3 days for falls. Tonight EMS called out d/t pt falling while trying to ambulate with walker. EMS reports pt was tachypneic with RA sats in the 80s upon their arrival. 01/08 - 1view DX DX /2015 - [facility] Comparison: 02/09/2012 Read by: Ron Orellana DO [...] vascular congestion versus nonspecific airspace infiltrate. SL: [id number]- Vital Signs Vital Sign Value Date Comments Source Heart Rate 72 01/21/[address] [facility] Systolic (mm Hg) 161 01/21/[address] [facility] Diastolic (mm Hg) 81 01/21/[address] [facility] Temperature Oral (F) 98.8 F 01/21/[address] [facility] Respitory Rate 19 01/21/[address] [facility] Height 73 01/21/[address] [facility] Weight 256.60 01/21/[address] [facility] Temperature Oral (F) 97.4 F 01/11/2016 [facility] Heart Rate 97 01/11/2016 [facility] Respitory Rate 18 01/11/2016 [facility] Systolic (mm Hg) 147 01/11/2016 [facility] Diastolic (mm Hg) 93 01/11/2016 [facility] Respitory Rate 16 01/11/2016 [facility] Heart Rate 95 01/11/2016 [facility] Temperature Oral (F) 97.6 F 01/11/2016 [facility] Systolic (mm Hg) 150 01/11/2016 [facility] Diastolic (mm Hg) 91 01/11/2016 [facility] Temperature Oral (F) 97.9 F 01/11/2016 [facility] Heart Rate 93 01/11/2016 [facility] Respitory Rate 18 01/11/2016 [facility] Systolic (mm Hg) 144 01/11/2016 [facility] Diastolic (mm Hg) 89 01/11/2016 [facility] Weight 106.506 01/09/2016 [facility] BMI Calculated 30.98 01/09/2016 [facility] Height 185.42 cm 01/09/2016 [facility] Encounters Location Location Encounter Encounter Reason Attending ADM DC Status Source Details Type Number For Provider Date Date Visit [facility] Inpatient [id number] Artemio 01/08 01/10 Chriss Lopez /2015 [facility] [id number] 01/14 01/[address] [facility] [place] Procedures Procedure Code Date Perfomer Comments Source Chest Single [id number] [facility] [place] Anaerobic Blood [id number] [facility] [place] Aerobic Blood [id number] [facility] [place] [id number] [facility] [place] Count [id number] [facility] [place] Chest Abd [id number] [facility] - Pelvis Wo Con 8 [place] Chest Single [id number] [facility] [place] Operation on [id number] [facility] hip joint
--- OUTSIDE RECORDS SUMMARY | 2018-11-11 11:40 | XMS REPORT ---
:1945 [facility] Address [address] [place] [address] Care Team Providers Name Role Phone KENYON [...] Comments SODIUM (BEAKER) (test 140 meq/L 136-145 nagw=976) POTASSIUM (BEAKER) (test 3.7 meq/L 3.5-5.1 olse=580) CHLORIDE (BEAKER) (test 106 meq/L 98-107 ztii=877) CO2 (BEAKER) (test jzew=472) 26 meq/L 22-29 BLOOD UREA NITROGEN (BEAKER) 18 mg/dL 7-21 (test mlvw=219) CREATININE (BEAKER) (test 0.93 mg/dL 0.57-1.25 tkcp=853) GLUCOSE RANDOM (BEAKER) 118 mg/dL 70-105 (test smgt=045) CALCIUM (BEAKER) (test 9.0 mg/dL 8.4-10.2 yyxk=156) EGFR (BEAKER) (test 79 mL/min/1.73 sq m ESTIMATED GFR IS NOT jsjo=9053) ACCURATE CREATININE CLEARANCE IN PREDICTING GLOMERULAR FILTRATION RATE. ESTIMATED GFR IS NOT APPLICABLE FOR DIALYSIS PATIENTS. CBC W/PLT COUNT & AUTO [id number] 07:34:00 Test Item Value Reference Range Comments WHITE BLOOD CELL COUNT (BEAKER) (test vqno=117) 9.9 K/ L 3.5-10.5 RED BLOOD CELL COUNT (BEAKER) (test gmdt=901) 3.81 M/ L 4.63-6.08 HEMOGLOBIN (BEAKER) (test rynp=730) 10.6 GM/DL 13.7-17.5 HEMATOCRIT (BEAKER) (test ivpp=639) 32.7 % 40.1-51.0 MEAN CORPUSCULAR VOLUME (BEAKER) (test jrow=510) 85.8 fL 79.0-92.2 MEAN CORPUSCULAR HEMOGLOBIN (BEAKER) (test 27.8 pg 25.7-32.2 mitl=381) MEAN CORPUSCULAR HEMOGLOBIN CONC (BEAKER) (test 32.4 GM/DL 32.3-36.5 ziwz=554) RED CELL DISTRIBUTION WIDTH (BEAKER) (test 16.5 % 11.6-14.4 zmau=479) PLATELET COUNT (BEAKER) (test qznv=093) 233 K/CU MM 150-450 MEAN PLATELET VOLUME (BEAKER) (test borb=203) 10.2 fL 9.4-12.4 NUCLEATED RED BLOOD CELLS (BEAKER) (test 0 /100 WBC 0-0 exkk=398) NEUTROPHILS RELATIVE PERCENT (BEAKER) (test 62 % yniy=785) LYMPHOCYTES RELATIVE PERCENT (BEAKER) (test 26 % nmmh=297) MONOCYTES RELATIVE PERCENT (BEAKER) (test 7 % qrhk=849) EOSINOPHILS RELATIVE PERCENT (BEAKER) (test 3 % cros=525) BASOPHILS RELATIVE PERCENT (BEAKER) (test 0 % panm=470) NEUTROPHILS ABSOLUTE COUNT (BEAKER) (test 6.11 K/ L 1.78-5.38 foqn=616) LYMPHOCYTES ABSOLUTE COUNT (BEAKER) (test 2.59 K/ L 1.32-3.57 frsp=611) MONOCYTES ABSOLUTE COUNT (BEAKER) (test 0.73 K/ L 0.30-0.82 wdvo=606) EOSINOPHILS ABSOLUTE COUNT (BEAKER) (test 0.34 K/ L 0.04-0.54 ahth=788) BASOPHILS ABSOLUTE COUNT (BEAKER) (test 0.04 K/ L 0.01-0.08 hyqw=926) IMMATURE GRANULOCYTES-RELATIVE PERCENT (BEAKER) 1 % 0-1 (test pcek=5036)
[2018-11-11 12:35] LABS: Absolute Lymphocytes (CBC) 2.5 K/uL (0.7-4.9); Absolute Monocytes 0.9 K/uL (0.1-1.3); Absolute Neutrophil 7.2 K/uL (1.8-8.0); Basophils % 0.9 % (0-1.3); Eosinophils % 2.7 % (0-4.4); Monocytes % 8.4 % (3.3-12.3); RBC Red Blood Cell Count 2.83 M/uL (4.33-5.43)
[2018-11-11 12:43] LABS: Protime INR 1.83
[2018-11-11 12:49] LABS: ALT/SGPT 18 U/L (12-78); AST/SGOT 10 U/L (15-37); Albumin 3.1 g/dL (3.4-5.0); Alkaline Phosphatase 89 U/L (45-117); BUN Blood Urea Nitrogen 42 mg/dL (7-18); Bicarbonate 25 mmol/L (21-32); Bilirubin Direct < 0.1 mg/dL (0-0.2); Bilirubin Total 0.2 mg/dL (0.2-1.0); Glucose Level 135 mg/dL (74-106); Magnesium 2.6 mg/dL (1.8-2.4); NT PRO-BNP 976 pg/mL (<450); Potassium 4.5 mmol/L (3.5-5.1); Protein, Total 6.8 g/dL (6.4-8.2); Sodium Level 130 mmol/L (136-145); Troponin (Emerg Dept Use Only) 0.03 ng/mL (0.0-0.045)
--- NOTE | 2018-11-11 13:34 | RAD REPORT ---
EXAM DESCRIPTION: CT - Abdomen Pelvis Wo Contrast - 11/11/2018 1:20 pm CLINICAL HISTORY: Abdominal pain. No IV or Oral contrast;Abd pain COMPARISON: Abdomen Pelvis Wo Contrast dated 10/04/2018; Abdomen Pelvis Wo Contrast dated 06/03/2017 ; Abdomen Pelvis W Contrast dated 05/21/2017; Abdomen Pelvis Wo Contrast dated 04/30/2017 TECHNIQUE: CT imaging of the abdomen and pelvis was performed without contrast. Solid organ, bowel a nd vascular assessment is limited due to lack of IV and oral contrast. All CT scans are performed using dose optimization technique as appropriate and may include automated exposure control or mA/KV adjustment according to patient size. FINDINGS: Linear subsegmental atelectasis is present in both lung bases. The liver demonstrates no focal mass or intrahepatic biliary dilatation. Cholecystectomy clips. The s pleen, pancreas, adrenal glands are normal.Punctate calculus is seen in the inferior left kidney. 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 No hydronephrosis. Prominent fecal retention in the colon is seen. Inflammatory changes are seen in the fat surrounding the rectosigmoid colon, mildly progressive. No bowel obstruction, free air or significant free fluid collections. The appendix is normal. The osseous structures are within normal limits.Right total hip arthroplasty is noted. Moderate fat c ontaining left inguinal hernia. 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 Rectosigmoid inflammatory changes again noted, mildly progressive since comparative study. A limited non-contrast examination was performed as detailed.
--- NOTE | 2018-11-11 13:54 | RAD REPORT ---
EXAM DESCRIPTION: RAD - Chest Single View - 11/11/2018 1:48 pm CLINICAL HISTORY: DYSPNEA Chest pain. COMPARISON: Chest Single View dated 10/04/2018; Chest Single View dated 01/18/2018; Chest Single View d ated 01/14/2018; Chest Single View dated 09/03/2017 FINDINGS: Portable technique limits examination quality. Emphysematous changes are present throughout the lungs. The heart is mildly prominent in size. No dis placed fractures. IMPRESSION: No acute intrathoracic process suspected.
[2018-11-11] MEDS ORDERED: NA CHLORIDE 0.9% 250 ML ONE (14:12)
--- NOTE | 2018-11-11 15:23 | ER ---
Nurse's Notes [facility] Name: Sam Suarez Age: 73 yrs Sex: Male : 1945 Arrival Date: 11/11/2018 Time: 11:43 Bed 2 Private MD: Diagnosis: Gastrointestinal hemorrhage, unspecified;Renal Mass Presentation: 11/11 11:43 Presenting complaint: EMS states: Sent here for low hemoglobin of 6.5 and confusion and aa5 drowsiness today. EMS reports pt is drowsy but awakens to verbal stimuli and answers questions appropriately. EMS also reports vomiting in route. EMS reports BP 97/61 and reports Hx of Diverticulitis with rupture approximately 2 months ago. 11:43 Transition of care: patient was received from another setting of care (long-term care [facility] facility), [facility]. Onset of symptoms was November 11, 2018. Care prior to arrival: Medication(s) given: Phenergan, 12.5 mg, IV initiated. 20 GA, in the right forearm, Glucose check: 155 Oxygen administered. via nasal cannula. 11:43 Method Of Arrival: EMS: [facility] aa5 11:43 Acuity: AMANDA 2 aa5 12:00 Risk Assessment: Do you want to hurt yourself or someone else? Patient reports no bp desire to harm self or others. Initial Sepsis Screen: Does the patient meet any 2 criteria? Altered Mental Status. No. Patient's initial sepsis screen is negative. Does the patient have a suspected source of infection? No. Patient's initial sepsis screen is negative. Triage Assessment: 11:45 General: Appears in no apparent distress. comfortable, obese, Behavior is calm, bp cooperative, drowsy. Historical: - Allergies: 11:43 Dilaudid; aa5 11:43 Metformin HCl; aa5 - PMHx: 11:43 Anemia; Anxiety; ATHEROSCLEROSIS; Atrial Fib; B12 deficiency; benign prostatic aa5 hyperplasia; CHF; Chronic pain; CKD; constipation; COPD; Diabetes - NIDDM; DYSPHAGIA; Hematuria; GERD; Hypertension; Hypokalemia; Hypomagnesemia; Major Depressive Disorder; Cognitive Communication Deficit; - PSHx: 11:43 Appendectomy; Cholecystectomy; aa5 - Immunization history:: Adult Immunizations up to date. - Ebola Screening: : No symptoms or risks identified at this time. - Social history:: Smoking status: . Screenin:21 Abuse screen: Denies threats or abuse. Denies injuries from another. Nutritional bp screening: No deficits noted. Tuberculosis screening: No symptoms or risk factors identified. Fall Risk None identified. Assessment: 11:45 General: Appears in no apparent distress. comfortable, obese, Behavior is cooperative, bp drowsy. Pain: Denies pain. Neuro: Level of Consciousness is obeys commands, confused, lethargic, Oriented to person, place. Cardiovascular: Rhythm is sinus rhythm. Respiratory: Airway is patent Respiratory effort is even, unlabored, Respiratory pattern is regular, symmetrical. GI: Abdomen is round Abd is non tender X 4 quads. : No signs and/or symptoms were reported regarding the genitourinary system. EENT: No deficits noted. Derm: Skin is pale. Musculoskeletal: Circulation, motion, and sensation intact. Range of motion: intact in all extremities. 13:00 Reassessment: ALL CURRENT ORDERS COMPLETED, FURTHER ORDERS PENDING. NO CHANGE IN VS OR bp MENTAL STATUS. 13:57 Reassessment: CONSENT FOR PRBC TRANSFUSION SIGNED/WITNESSED BY SPOUSE. SPOUSE EXPRESSED bp UNDERSTANDING OF RISK VS BENEFIT. 15:22 Reassessment: TRANSFER IN PROCESS. PRBC INFUSING, NO S/S ACUTE DISTRESS. bp 16:30 Reassessment: REPORT TO ELINA MARROQUIN AT [facility] 9 [place] 91. bp 16:40 Reassessment: 2ND UNIT PRBC STARTED. TRANSPORT EN ROUTE FOR TRANSFER. bp Vital Signs: 11:48 BP 115 / 77; Pulse 78; Resp 16 S; Pulse Ox 100% on 2 lpm NC; aa5 12:25 BP 108 / 72; Pulse 87; Resp 16; Pulse Ox 100% ; bp 13:32 BP 118 / 71; Pulse 93; Resp 14; Pulse Ox 100% ; bp 13:56 BP 117 / 81; Pulse 91; Resp 22; Pulse Ox 100% ; bp 15:00 BP 111 / 47; Pulse 90; Resp 13; Pulse Ox 100% ; bp 17:00 BP 122 / 79; Pulse 90; Resp 13; Temp 97.9; Pulse Ox 100% ; bp ED Course: 11:43 Patient arrived in ED. iw 11:44 Tunde Valverde PA is PHCP. jr8 11:44 Caesar Dacosta MD is Attending Physician. jr8 11:49 Triage completed. aa5 11:50 Andrea Benitez, RN is Primary Nurse. bp 11:59 EKG done, by shop technician. reviewed by Tunde COLVIN. at1 12:21 Maintain EMS IV. Dressing intact. Good blood return noted. Site clean \T\ dry. Gauge \T\ bp site: 20 GAUGE R FA. 12:22 Patient has correct armband on for positive identification. Bed in low position. Call bp light in reach. Side rails up X2. Adult w/ patient. 12:30 Arm band placed on. bp 12:38 Note: CXR COMPLETED, BEST IMAGES AVAILABLE DUE TO PT STATUS. sw 13:20 CT completed. Patient tolerated procedure well. Patient moved to CT via stretcher. vr Patient moved back from CT. 13:21 CT Abd/Pelvis - Without Cont In Process Unspecified. EDMS 13:48 XRAY Chest (1 view) In Process Unspecified. EDMS 14:54 initiated a transfer with Kristin at the [facility] transfer center. eb 15:[address] Beltran with Tunde Colvin for patient transfer consultation. eb 15:49 administrative approval given by Kristin Nichole RN educational coordinator. Dr. Sophie Kan has accepted the patient in transfer/ pt going to 9 [facility] 915/ report to be called to [phone]. 15:55 Inserted saline lock: 24 gauge in left hand, using aseptic technique. em1 17:43 No provider procedures requiring assistance completed. Patient transferred, IV remains bp in place. Administered Medications: 15:30 Drug: ProTONIX 40 mg Route: IVP; Site: left hand; bp 16:42 Follow up: Response: No adverse reaction bp 16:00 Drug: ProTONIX 8 mg/hr Route: IV; Rate: 25 ml/hr; Site: left hand; bp 16:42 Follow up: IV Status: Infusion continued upon transfer bp Point of Care Testing: Guaiac: 12:25 Stool Guaiac: Positive; Stool Hemoccult Control: Pass; bp Outcome: 15:21 ER care complete, transfer ordered by MD. menon 17:42 Transferred by ground EMS [facility]. to [facility], Transfer form bp completed. 17:42 Condition: stable 17:42 Instructed on the need for transfer. 17:50 Patient left the ED. bp Signatures: Dispatcher [employer] EDIman Dennis, RN RN Timbo Fernandez em1 Antonella Whittaker RN RN aa5 Avril Livingston Josh, PA PA jr8 Beatriz Montes De Oca, special events director EKG Tat1 Kavitha Lau Brian, CARA RN Samantha Fofana Corrections: (The following items were deleted from the chart) 12:09 11:43 Transition of care: patient was not received from another setting of care. aa5 aa5
--- NOTE | 2018-11-11 15:24 | EDPHYS ---
Physician Documentation [facility] Name: Sam Suarez Age: 73 yrs Sex: Male : 1945 Arrival Date: 11/11/2018 Time: 11:43 Bed 2 Private MD: ED Physician Caesar Dacosta HPI: 11/11 13:20 This 73 yrs old Male presents to ER via EMS with complaints of Abnormal Lab jr8 Results, Altered Mental Status. 13:20 Patient brought to ED after having labs drawn and resulted by [place] physician. Patient jr8 found to have low hemoglobin. of patient stated that he has had GI bleeding and perforation in past. Noticed that he is more sleepy than normal along with being more pale. Abdomen larger than normal as well. Patient sleepy but easy to arouse and will answer all questions appropriately . Historical: - Allergies: 11:43 Dilaudid; aa5 11:43 Metformin HCl; aa5 - PMHx: 11:43 Anemia; Anxiety; ATHEROSCLEROSIS; Atrial Fib; B12 deficiency; benign prostatic aa5 hyperplasia; CHF; Chronic pain; CKD; constipation; COPD; Diabetes - NIDDM; DYSPHAGIA; Hematuria; GERD; Hypertension; Hypokalemia; Hypomagnesemia; Major Depressive Disorder; Cognitive Communication Deficit; - PSHx: 11:43 Appendectomy; Cholecystectomy; aa5 - Immunization history:: Adult Immunizations up to date. - Ebola Screening: : No symptoms or risks identified at this time. - Social history:: Smoking status: . ROS: 13:20 Eyes: Negative for injury, pain, redness, and discharge, ENT: Negative for injury, jr8 pain, and discharge, Neck: Negative for injury, pain, and swelling, Cardiovascular: Negative for chest pain, palpitations, and edema, Respiratory: Negative for shortness of breath, cough, wheezing, and pleuritic chest pain, Back: Negative for injury and pain, MS/Extremity: Negative for injury and deformity, Neuro: Negative for headache, weakness, numbness, tingling, and seizure. Positive for AMS 13:20 Constitutional: Positive for fatigue. 13:20 Abdomen/GI: Positive for abdominal distension, Negative for abdominal pain, nausea, vomiting, and diarrhea. Exam: 13:20 Eyes: Pupils equal round and reactive to light, extra-ocular motions intact. Lids and jr8 lashes normal. Conjunctiva pale .Sclera are non-icteric and not injected. Cornea within normal limits. Periorbital areas with no swelling, redness, or edema. ENT: Nares patent. No nasal discharge, no septal abnormalities noted. Tympanic membranes are normal and external auditory canals are clear. Oropharynx with no redness, swelling, or masses, exudates, or evidence of obstruction, uvula midline. Mucous membranes moist. Neck: Trachea midline, no thyromegaly or masses palpated, and no cervical lymphadenopathy. Supple, full range of motion without nuchal rigidity, or vertebral point tenderness. No Meningismus. Cardiovascular: Regular rate. Irregularly irregular pulse with a normal S1 and S2. No gallops, murmurs, or rubs. Normal PMI, no JVD. No pulse deficits. Respiratory: Lungs have equal breath sounds bilaterally, clear to auscultation and percussion. No rales, rhonchi or wheezes noted. No increased work of breathing, no retractions or nasal flaring. Abdomen/GI: Soft, non-tender, with normal bowel sounds. Moderate distention without tympany. No guarding or rebound. No evidence of tenderness throughout. Back: No spinal tenderness. No costovertebral tenderness. Full range of motion. MS/ Extremity: Pulses equal, no cyanosis. Neurovascular intact. Full, normal range of motion. 13:20 Skin: Appearance: Color: pale, Temperature: cool. 13:20 Neuro: Orientation: to person, place \T\ time. Mentation: able to follow commands, slow to respond, Memory: is normal, Cranial nerves: CN I not tested, CN II- XII are normal as tested, extraocular movements are intact, Facial palsy and sensory deficits are absent. Speech is slowed, Tongue strength is normal, Motor: moves all fours, Sensation: is normal, seizure activity, is not displayed by the patient, Abnormal movements: there are no abnormal movements. Vital Signs: 11:48 BP 115 / 77; Pulse 78; Resp 16 S; Pulse Ox 100% on 2 lpm NC; aa5 12:25 BP 108 / 72; Pulse 87; Resp 16; Pulse Ox 100% ; bp 13:32 BP 118 / 71; Pulse 93; Resp 14; Pulse Ox 100% ; bp 13:56 BP 117 / 81; Pulse 91; Resp 22; Pulse Ox 100% ; bp 15:00 BP 111 / 47; Pulse 90; Resp 13; Pulse Ox 100% ; bp 17:00 BP 122 / 79; Pulse 90; Resp 13; Temp 97.9; Pulse Ox 100% ; bp MDM: 11:44 Patient medically screened. [facility] 15:18 Data reviewed: vital signs, nurses notes, lab test result(s), EKG, radiologic studies, jr CT scan, plain films. Data interpreted: Pulse oximetry: on room air is 100 %. Interpretation: normal. Counseling: I had a detailed discussion with the patient and/or guardian regarding: the historical points, exam findings, and any diagnostic results supporting the discharge/admit diagnosis, lab results, radiology results, the need to transfer to another facility, for higher level of care, [facility] does not immediately have the required specialist. 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 Family stated that patient likes [facility] in the medical center because he gets all of his cardiac care down there. Would like to be transferred there if possible. [facility] was called and accepted patient for further evaluation of GI bleed and renal mass . 11/11 11:58 Order name: Basic Metabolic Panel; Complete Time: 13:03 [facility] 11/11 11:58 Order name: CBC with Diff; Complete Time: 12:46 [facility] 11/11 11:58 Order name: LFT's; Complete Time: 13:03 [facility] 11/11 11:58 Order name: Magnesium; Complete Time: 13:03 [facility] 11/11 11:58 Order name: NT PRO-BNP; Complete Time: 13:03 [facility] 11/11 11:58 Order name: PT-INR; Complete Time: 13:03 [facility] 11/11 11:58 Order name: Troponin (emerg Dept Use Only); Complete Time: 13:03 [facility] 11/11 11:58 Order name: XRAY Chest (1 view); Complete Time: 13:58 [facility] 11/11 11:58 Order name: TS [facility] 11/11 12:18 Order name: Bb Add On eb 11/11 12:46 Order name: Packed RBC Leukored -1 EDMS 11/11 13:03 Order name: CT Abd/Pelvis - Without Cont; Complete Time: 13:58 [facility] 11/11 11:58 Order name: EKG; Complete Time: 11:59 11/11 11:58 Order name: Cardiac monitoring; Complete Time: 12:21 11/11 11:58 Order name: EKG - Nurse/Tech; Complete Time: 12:20 11/11 11:58 Order name: IV Saline Lock; Complete Time: 12:21 11/11 11:58 Order name: Labs collected and sent; Complete Time: 12:20 11/11 11:58 Order name: O2 Per Protocol; Complete Time: 12:20 11/11 11:58 Order name: O2 Sat Monitoring; Complete Time: 12:20 Administered Medications: 15:30 Drug: ProTONIX 40 mg Route: IVP; Site: left hand; bp 16:42 Follow up: Response: No adverse reaction bp 16:00 Drug: ProTONIX 8 mg/hr Route: IV; Rate: 25 ml/hr; Site: left hand; bp 16:42 Follow up: IV Status: Infusion continued upon transfer bp Point of Care Testing: Guaiac: 12:25 Stool Guaiac: Positive; Stool Hemoccult Control: Pass; bp Disposition: 18:21 Co-signature as Attending Physician, Caesar Dacosta MD. rn Disposition: 11/11/18 15:21 Transfer ordered to [facility]. Diagnosis are Gastrointestinal hemorrhage, unspecified, Renal Mass. - Reason for transfer: Higher level of care. - Accepting physician is Dr. Kan. - Condition is Stable. - Problem is new. - Symptoms have improved. Signatures: Dispatcher [employer] EDMS Caesar Dacosta MD MD rn Calderon, Audri, RN RN aa5 Tunde Valverde PA PA jr8 Andrea Benitez RN RN bp Corrections: (The following items were deleted from the chart) 15:22 15:21 11/11/2018 15:21 Transfer ordered to [facility]. Diagnosis is jr8 Gastrointestinal hemorrhage, unspecified; Renal Mass. Reason for transfer: Higher level of care. Accepting physician is [facility] . Condition is Stable. Problem is new. Symptoms have improved. jr8 15:51 15:22 11/11/2018 15:21 Transfer ordered to [facility]. Diagnosis is jr8 Gastrointestinal hemorrhage, unspecified; Renal Mass. Reason for transfer: Higher level of care. Accepting physician is [facility]. Condition is Stable. Problem is new. Symptoms have improved. jr8 17:50 15:51 11/11/2018 15:21 Transfer ordered to [facility]. Diagnosis is bp Gastrointestinal hemorrhage, unspecified; Renal Mass. Reason for transfer: Higher level of care. Accepting physician is Dr. Kan. Condition is Stable. Problem is new. Symptoms have improved. jr8
[2018-11-11] MEDS ORDERED: PANTOPRAZOLE 40 MG INJ ONE (15:41)
[2018-11-11] MEDS ORDERED: PANTOPRAZOLE INJ 80 MG in NA CHLORIDE 0.9% 250 ML IV SCH (16:00)
--- NOTE | 2018-11-11 16:57 | EKG ---
Test Date: 2018-11-11 Test Time: 11:55:24 Environmental Studies Department Chair: SEN MEASUREMENT RESULTS: Intervals: Rate: 76 ID: QRSD: [id number] QT: 390 QTc: 438 [place]: P: ID: QRS: -[id number] T: 47 INTERPRETIVE STATEMENTS: Atrial fibrillation Nonspecific T wave abnormality, probably digitalis effect Abnormal ECG Compared to ECG 10/04/2018 15:47:22 T-wave abnormality now present Atrial flutter no longer present Left-axis deviation no longer present ST (T wave) deviation no longer present Electronically Signed On 11-11-18 16:56:41 CALLISTHENICS INSTRUCTOR by Clayton Miller
[2018-11-11 17:57] VITALS: O2SAT 100
[2018-11-11 18:03] VITALS: BP 122/79; TEMP 97.9
== END 2018-11-11 17:50 | disposition short-term general hospital (02) ==
LOC: ER 11:33
PROC: 30233N1 Transfusion of Nonautologous Red Blood Cells into Peripheral Vein, Percutaneous Approach (ICD-10-PCS; principal; 2018-11-11)
DX: K92.2 Gastrointestinal hemorrhage, unspecified (principal); N28.89 Other specified disorders of kidney and ureter; I10 Essential (primary) hypertension; Z88.8 Allergy status to other drugs, medicaments and biological substances
CPT/HCPCS: 36415; 36430; 71045; 74176; 80048; 80076; 83735; 83880; 84484; 85025; 85610; 86850; 86900; 86901; 93005; C9113 ×2; P9016 ×2; 96365; 99285

== ENCOUNTER 2019-01-30 15:22 | Inpatient (IN) | payer OTHER ==
--- OUTSIDE RECORDS SUMMARY | 2019-01-30 15:34 | XMS REPORT | Clinical Summary ---
:1945 Author Organization [facility] Address [address] [place] [address] Care Team Providers Name Role Phone Orlando Altman MD Primary Care Provider Allergies Active Allergy Reactions Severity Noted Date Comments Hydromorphone (Bulk) Other (See Comments) 10/12/2013 "hot and cold sweat" Metformin Hives, Itching Medium 11/11/2018 Medications Medication Sig Dispensed Refills Start Date End Date Status lisinopril Take 20 mg by 0 Active (PRINIVIL,ZESTRIL) mouth 2 (two) 20 MG tablet times daily . omeprazole Take 20 mg by 0 Active (PRILOSEC) 20 MG mouth daily. capsule promethazine Take 25 mg by 0 Active (PHENERGAN) 25 MG mouth every 8 tablet (eight) hours as needed for Nausea. LACTULOSE ORAL Take by mouth 0 Active 2 (two) times daily as needed. budesonide/formotero Inhale 2 puffs 0 Active l fumarate by mouth via (SYMBICORT INHL) inhaler 4 (four) times daily. polyethylene glycol Take 17 g by 0 Active (MIRALAX) 17 mouth. gram/dose powder atorvastatin Take 1 tablet 30 tablet 0 01/19/2019 Active (LIPITOR) 10 MG (10 mg total) 0 tablet by mouth nightly. carvedilol (COREG) Take 1 tablet 60 tablet 0 01/19/2019 Active 12.5 MG tablet (12.5 mg total) by mouth 2 (two) times daily with breakfast and dinner. gabapentin Take 1 capsule 90 capsule 0 01/19/2019 Active (NEURONTIN) 300 MG (300 mg total) capsule by mouth 3 (three) times daily. glimepiride (AMARYL) Take 1 tablet 30 tablet 0 01/19/2019 Active 2 MG tablet (2 mg total) by mouth every morning before breakfast. sertraline (ZOLOFT) Take 1 tablet 30 tablet 0 01/19/2019 Active 50 MG tablet (50 mg total) by mouth daily. ranolazine (RANEXA) Take 1 tablet 60 tablet 0 01/19/2019 Active 1,000 mg SR tablet (1,000 mg total) by mouth 2 (two) times daily. sotalol AF (BETAPACE Take 1 tablet 60 tablet 0 01/19/2019 Active AF) 80 MG tablet (80 mg total) by mouth 2 (two) times daily. tamsulosin (FLOMAX) Take 1 capsule 30 capsule 0 01/19/2019 Active 0.4 mg Cap 24 hr (0.4 mg total) capsule by mouth daily. niacin (NIASPAN) Take 1 tablet 30 tablet 0 01/19/2019 Active 1000 MG CR tablet (1,000 mg total) by mouth nightly. apixaban (ELIQUIS) 5 Take 1 tablet 60 tablet 0 01/19/2019 Active mg Tab tablet (5 mg total) by mouth 2 (two) times daily. sertraline (ZOLOFT) Take 50 mg by 0 Discontinued 50 MG tablet mouth daily . 9 ranolazine (RANEXA) Take 500 mg by 0 Discontinued 1,000 mg SR tablet mouth 2 (two) 9 times daily. niacin (NIASPAN) Take 1,000 mg 0 Discontinued 1000 MG CR tablet by mouth 9 nightly. carvedilol (COREG) Take 25 mg by 0 Discontinued 25 MG tablet mouth daily . 9 tamsulosin (FLOMAX) Take 0.4 mg by 0 Discontinued 0.4 mg Cp24 24 hr mouth daily. 9 capsule spironolactone Take 100 mg by 0 Discontinued (ALDACTONE) 25 MG mouth daily . 9 tablet gabapentin Take 300 mg by 0 Discontinued (NEURONTIN) 300 MG mouth 3 9 capsule (three) times daily. aspirin 81 MG EC Take 81 mg by 0 Discontinued tablet mouth daily. 9 furosemide (LASIX) Take 60 mg by 0 Discontinued 40 MG tablet mouth 2 (two) 9 times daily . glipiZIDE Take 5 mg by 0 Discontinued (GLUCOTROL) 10 MG mouth 2 (two) 9 tablet times daily before meals. minoxidil (LONITEN) Take 2.5 mg by 0 Discontinued 2.5 MG tablet mouth 2 (two) 9 times daily. atorvastatin Take 40 mg by 0 Discontinued (LIPITOR) 40 MG mouth daily. 9 tablet ALPRAZolam (XANAX) Take 1 mg by 0 Discontinued 0.5 MG tablet mouth every 9 night as needed for Anxiety. glimepiride (AMARYL) Take 2 mg by 0 Discontinued 2 MG tablet mouth 2 (two) 9 times daily. sotalol AF (BETAPACE Take 80 mg by 0 Discontinued AF) 80 MG tablet mouth 2 (two) 9 times daily. apixaban (ELIQUIS) 5 Take 5 mg by 0 Discontinued mg Tab tablet mouth 2 (two) 9 times daily. carvedilol (COREG) Take 0.5 30 tablet 11 11/28/2018 Discontinued 25 MG tablet tablets (12.5 9 mg total) by mouth 2 (two) times daily with breakfast and dinner. mirtazapine (REMERON Take 1 tablet 30 tablet 0 12/01/2018 ALESSANDRA-TAB) 15 MG (15 mg total) 9 disintegrating by mouth tablet nightly for 30 days. ciprofloxacin HCl Take 250 mg by 0 Discontinued (CIPRO) 250 MG mouth 2 (two) 9 tablet times daily. clindamycin Take 300 mg by 0 Discontinued (CLEOCIN) 300 MG mouth every 8 9 capsule (eight) hours. carvedilol (COREG) Take 12.5 mg 0 Discontinued 12.5 MG tablet by mouth 2 9 (two) times daily with breakfast and dinner. ranolazine (RANEXA) Take 500 mg by 0 Discontinued 500 MG 12 hr tablet mouth 2 (two) 9 times daily. 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 Aspiration pneumonia 11/25/2018 GI bleed 11/11/2018 Shortness of breath 12/23/2017 HTN (hypertension) 02/27/2017 CAD (coronary artery disease) 02/27/2017 Hyperlipidemia 02/27/2017 COPD (chronic obstructive pulmonary disease) 02/27/2017 Atrial flutter 02/27/2017 Controlled type 2 diabetes mellitus, without long-term current use of 2016 insulin Tricuspid regurgitation 02/27/2017 Chest pain 11/09/2013 Encounters Date Type Specialty Care Team Description 01/09/2019 Anesthesia Event Colton Marcos MD 01/08/2019 [facility] General Internal PaolaBenigno pittsit Aspiration pneumonia, unspecified aspiration pneumonia type, unspecified laterality, unspecified part of lung (HCC); - Encounter Medicine MD Jayme Renal mass; 01/19/2019 Grey, KATHLEEN (acute kidney injury) (HCC); MD Maxwell 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 (HCC); Joseph Robles Atrial flutter, unspecified type (HCC); MD Elías Coronary artery disease involving [place] heart without angina pectoris, unspecified vessel or lesion type; Xavier, Chronic obstructive pulmonary disease, unspecified COPD type ( HCC); Em Freeman, Essential hypertension 01/08/2019 Travel 01/02/2019 [facility] Pre-Admission Testing Resource, [facility] Encounter Preadmit Phone 11/19/2018 Anesthesia Event Gastroenterology Scott Gabriel MD 11/19/2018 Surgery Gastroenterology Liyah, Christiano COLONOSCOPY Brandan 11/14/2018 Orders Only General Internal Medicine 11/13/2018 Anesthesia Event Gastroenterology Sergey Rodriguez CRNA 11/13/2018 Surgery Gastroenterology Vickey Beltran, UPPER ENDOSCOPY 11/11/2018 [facility] General Internal Yinghi, Aspiration pneumonia, unspecified aspiration pneumonia type, unspecified laterality, unspecified part of lung (HCC) (Primary Dx); - Encounter Medicine MD Sophie Atrial flutter, unspecified type (HCC); 12/01/2018 Lauryn, Chronic obstructive pulmonary disease, unspecified COPD type (HCC); MD Ambreen Gastrointestinal hemorrhage, unspecified gastrointestinal hemorrhage type; Gianna Peter Shortness of breath; MD Mariposa Symptomatic anemia; Gadicherla, Type 2 diabetes mellitus with chronic kidney disease, without long-term current use of insulin, unspecified CKD stage (HCC); Nancie Renal mass MD Soheila 11/11/2018 Travel after 01/29/2018 Social History Tobacco Use Types Packs/Day Years [...] Vital Sign Reading Time Taken Blood Pressure 150/87 01/19/2019 1:50 PM CDT Pulse 75 01/19/2019 1:50 PM CDT Temperature 36.7 C (98 F) 01/19/2019 1:50 PM CDT Respiratory Rate 14 01/19/2019 1:50 PM CDT Oxygen Saturation 98% 01/19/2019 1:50 PM CDT Inhaled Oxygen Concentration 21% 11/28/2018 7:21 PM FOREST SCIENCE PROFESSOR Weight 114.2 kg (251 lb 12.8 oz) 01/12/2019 2:07 PM CDT Height 185.4 cm (6' 1") 01/02/2019 12:44 PM CDT Body Mass Index 33.22 01/12/2019 2:07 PM CDT Plan of Treatment Not on file Implants Implanted Type Area [employer] Supervisor Device Shelf Model / Identifier Expiration Serial / Date Lot Device Clsr Lonence Mynx [id number] [id number] - [id number] Cardiovascular Right: ACCESS CLOSURE 10/30/2019 [id number] / Implanted: Qty: 1 on 12/23/2017 by Emmanuel Schuster MD Groin / [id number] Procedures Procedure Name Priority Date/Time Associated Comments Diagnosis RHYTHM STRIP - SCAN 01/20/2019 3:41 PM CDT POCT-GLUCOSE METER Routine 01/19/2019 4:27 Results for this PM CDT procedure are in the results section. IR PICC LINE Routine 01/19/2019 1:55 Results for this PLACEMENT OLDER THAN PM CDT procedure are in 5 YRS the results section. MAGNESIUM Routine 01/19/2019 6:29 Results for this AM CDT procedure are in the results section. BASIC METABOLIC PANEL Routine 01/19/2019 6:29 Results for this (7) AM CDT procedure are in the results section. POCT-GLUCOSE METER Routine 01/19/2019 6:25 Results for this AM CDT procedure are in the results section. POCT-GLUCOSE METER Routine 01/18/2019 9:20 Results for this PM CDT procedure are in the results section. POCT-GLUCOSE METER Routine 01/18/2019 5:03 Results for this PM CDT procedure are in the results section. POCT-GLUCOSE METER Routine 01/18/2019 12:08 Results for this PM CDT procedure are in the results section. POCT-GLUCOSE METER Routine 01/18/2019 7:39 Results for this AM CDT procedure are in the results section. POCT-GLUCOSE METER Routine 01/17/2019 8:56 Results for this PM CDT procedure are in the results section. POCT-GLUCOSE METER Routine 01/17/2019 5:29 Results for this PM CDT procedure are in the results section. POCT-GLUCOSE METER Routine 01/17/2019 11:44 Results for this AM CDT procedure are in the results section. POCT-GLUCOSE METER Routine 01/17/2019 7:42 Results for this AM CDT procedure are in the results section. CBC W/PLT COUNT & Routine 01/17/2019 4:45 Results for this AUTO DIFFERENTIAL AM CDT procedure are in the results section. PHOSPHORUS Routine 01/17/2019 4:45 Results for this AM CDT procedure are in the results section. MAGNESIUM Routine 01/17/2019 4:45 Results for this AM CDT procedure are in the results section. CBC W/PLT COUNT & Routine 01/17/2019 4:45 Results for this AUTO DIFFERENTIAL AM CDT procedure are in the results section. CALCIUM, IONIZED Routine 01/17/2019 4:45 Results for this AM CDT procedure are in the results section. BASIC METABOLIC PANEL Routine 01/17/2019 4:45 Results for this (7) AM CDT procedure are in the results section. POCT-GLUCOSE METER Routine 01/16/2019 9:16 Results for this PM CDT procedure are in the results section. POCT-GLUCOSE METER Routine 01/16/2019 5:33 Results for this PM CDT procedure are in the results section. POCT-GLUCOSE METER Routine 01/16/2019 1:05 Results for this PM CDT procedure are in the results section. PROTHROMBIN TIME/INR Routine 01/16/2019 7:18 Results for this AM CDT procedure are in the results section. POCT-GLUCOSE METER Routine 01/16/2019 6:18 Results for this AM CDT procedure are in the results section. POCT-GLUCOSE METER Routine 01/15/2019 9:15 Results for this PM CDT procedure are in the results section. POCT-GLUCOSE METER Routine 01/15/2019 4:49 Results for this PM CDT procedure are in the results section. POCT-GLUCOSE METER Routine 01/15/2019 12:18 Results for this PM CDT procedure are in the results section. POCT-GLUCOSE METER Routine 01/15/2019 9:10 Results for this AM CDT procedure are in the results section. BASIC METABOLIC PANEL Routine 01/15/2019 3:17 Results for this (7) AM CDT procedure are in the results section. POCT-GLUCOSE METER Routine 01/14/2019 8:55 Results for this PM CDT procedure are in the results section. POCT-GLUCOSE METER Routine 01/14/2019 5:24 Results for this PM CDT procedure are in the results section. POCT-GLUCOSE METER Routine 01/14/2019 1:12 Results for this PM CDT procedure are in the results section. POCT-GLUCOSE METER Routine 01/14/2019 9:16 Results for this AM CDT procedure are in the results section. CBC W/PLT COUNT & Routine 01/14/2019 5:21 Results for this AUTO DIFFERENTIAL AM CDT procedure are in the results section. CBC W/PLT COUNT & Routine 01/14/2019 5:21 Results for this AUTO DIFFERENTIAL AM CDT procedure are in the results section. B-TYPE NATRIURETIC Routine 01/14/2019 5:21 Results for this FACTOR (BNP) AM CDT procedure are in the results section. PHOSPHORUS Routine 01/14/2019 4:54 Results for this AM CDT procedure are in the results section. MAGNESIUM Routine 01/14/2019 4:54 Results for this AM CDT procedure are in the results section. BASIC METABOLIC PANEL Routine 01/14/2019 4:54 Results for this (7) AM CDT procedure are in the results section. POCT-GLUCOSE METER Routine 01/13/2019 9:01 Results for this PM CDT procedure are in the results section. POCT-GLUCOSE METER Routine 01/13/2019 5:09 Results for this PM CDT procedure are in the results section. POCT-GLUCOSE METER Routine 01/13/2019 1:37 Results for this PM CDT procedure are in the results section. POCT-GLUCOSE METER Routine 01/13/2019 9:17 Results for this AM CDT procedure are in the results section. CBC W/PLT COUNT & Routine 01/13/2019 5:15 Results for this AUTO DIFFERENTIAL AM CDT procedure are in the results section. PHOSPHORUS Routine 01/13/2019 5:15 Results for this AM CDT procedure are in the results section. MAGNESIUM Routine 01/13/2019 5:15 Results for this AM CDT procedure are in the results section. CALCIUM, IONIZED Routine 01/13/2019 5:15 Results for this AM CDT procedure are in the results section. CBC W/PLT COUNT & Routine 01/13/2019 5:15 Results for this AUTO DIFFERENTIAL AM CDT procedure are in the results section. BASIC METABOLIC PANEL Routine 01/13/2019 5:15 Results for this (7) AM CDT procedure are in the results section. MR BRAIN WITHOUT & Routine 01/12/2019 11:53 Results for this WITH IV CONTRAST PM CDT procedure are in the results section. POCT-GLUCOSE METER Routine 01/12/2019 9:54 Results for this PM CDT procedure are in the results section. POCT-GLUCOSE METER Routine 01/12/2019 5:58 Results for this PM CDT procedure are in the results section. 2D ECHO W/ DOPPLER Routine 01/12/2019 3:44 Results for this (CW/PW/COLOR) PM CDT procedure are in the results section. POCT-GLUCOSE METER Routine 01/12/2019 11:50 Results for this AM CDT procedure are in the results section. CT CHEST WITHOUT IV CRISTELA 01/12/2019 11:23 Results for this CONTRAST AM CDT procedure are in the results section. POCT-GLUCOSE METER Routine 01/12/2019 7:27 Results for this AM CDT procedure are in the results section. BASIC METABOLIC PANEL STAT 01/12/2019 12:29 Results for this (7) AM CDT procedure are in the results section. POCT-GLUCOSE METER Routine 01/11/2019 9:01 Results for this PM CDT procedure are in the results section. POCT-GLUCOSE METER Routine 01/11/2019 5:27 Results for this PM CDT procedure are in the results section. US RENAL COMPLETE Routine 01/11/2019 9:16 Results for this AM CDT procedure are in the results section. POCT-GLUCOSE METER Routine 01/11/2019 7:52 Results for this AM CDT procedure are in the results section. CBC W/PLT COUNT & Routine 01/11/2019 5:17 Results for this AUTO DIFFERENTIAL AM CDT procedure are in the results section. BASIC METABOLIC PANEL Routine 01/11/2019 5:17 Results for this (7) AM CDT procedure are in the results section. CBC W/PLT COUNT & Routine 01/11/2019 5:17 Results for this AUTO DIFFERENTIAL AM CDT procedure are in the results section. POCT-GLUCOSE METER Routine 01/10/2019 9:03 Results for this PM CDT procedure are in the results section. POCT-GLUCOSE METER Routine 01/10/2019 6:09 Results for this PM CDT procedure are in the results section. TRANSFUSION SERVICE 01/10/2019 6:00 REPORT - SCAN PM CDT MR MRA ABDOMEN WITH CRISTELA 01/10/2019 5:07 Results for this AND WITHOUT CONTRAST PM CDT procedure are in the results section. POCT-GLUCOSE METER Routine 01/10/2019 12:10 Results for this PM CDT procedure are in the results section. BASIC METABOLIC PANEL STAT 01/10/2019 10:42 Results for this (7) AM CDT procedure are in the results section. CBC W/PLT COUNT & Routine 01/10/2019 9:33 Results for this AUTO DIFFERENTIAL AM CDT procedure are in the results section. CBC W/PLT COUNT & Routine 01/10/2019 9:33 Results for this AUTO DIFFERENTIAL AM CDT procedure are in the results section. PREPARE LEUKO-REDUCED Routine 01/09/2019 11:54 Results for this RBC PM CDT procedure are in the results section. BASIC METABOLIC PANEL Routine 01/09/2019 10:42 Results for this (7) PM CDT procedure are in the results section. POCT-GLUCOSE METER Routine 01/09/2019 9:54 Results for this PM CDT procedure are in the results section. TRANSFUSION SERVICE 01/09/2019 6:00 REPORT - SCAN PM CDT POCT-GLUCOSE METER Routine 01/09/2019 1:42 Results for this PM CDT procedure are in the results section. POTASSIUM CRISTELA 01/09/2019 9:17 Results for this AM CDT procedure are in the results section. POCT-GLUCOSE METER Routine 01/09/2019 6:14 Results for this AM CDT procedure are in the results section. CBC W/PLT COUNT & Routine 01/09/2019 4:49 Results for this AUTO DIFFERENTIAL AM CDT procedure are in the results section. POTASSIUM Routine 01/09/2019 4:49 Results for this AM CDT procedure are in the results section. B-TYPE NATRIURETIC Routine 01/09/2019 4:49 Results for this FACTOR (BNP) AM CDT procedure are in the results section. COMPREHENSIVE Routine 01/09/2019 4:49 Results for this METABOLIC PANEL AM CDT procedure are in the results section. PHOSPHORUS Routine 01/09/2019 4:49 Results for this AM CDT procedure are in the results section. MAGNESIUM Routine 01/09/2019 4:49 Results for this AM CDT procedure are in the results section. CBC W/PLT COUNT & Routine 01/09/2019 4:49 Results for this AUTO DIFFERENTIAL AM CDT procedure are in the results section. CALCIUM, IONIZED Routine 01/09/2019 4:49 Results for this AM CDT procedure are in the results section. TRANSFUSE Routine 01/09/2019 2:04 LEUKO-REDUCED RED AM CDT BLOOD CELLS URINALYSIS W/ Routine 01/09/2019 12:28 Results for this MICROSCOPIC AM CDT procedure are in the results section. POTASSIUM STAT 01/09/2019 12:02 Results for this AM CDT procedure are in the results section. POCT-GLUCOSE METER Routine 01/08/2019 9:36 Results for this PM CDT procedure are in the results section. HEMOGLOBIN AND Routine 01/08/2019 7:33 Results for this HEMATOCRIT PM CDT procedure are in the results section. BASIC METABOLIC PANEL STAT 01/08/2019 7:33 Results for this (7) PM CDT procedure are in the results section. XR CHEST 1 VIEW CRISTELA 01/08/2019 6:56 Results for this PORTABLE/BEDSIDE PM CDT procedure are in the results section. EOSINOPHIL SMEAR, Routine 01/08/2019 5:41 Results for this URINE PM CDT procedure are in the results section. SODIUM, RANDOM URINE Routine 01/08/2019 5:41 Results for this PM CDT procedure are in the results section. PROTEIN, RANDOM URINE Routine 01/08/2019 5:41 Results for this PM CDT procedure are in the results section. OSMOLALITY, URINE AP Routine 01/08/2019 5:41 Results for this PM CDT procedure are in the results section. CREATININE, RANDOM Routine 01/08/2019 5:41 Results for this URINE PM CDT procedure are in the results section. TRANSFUSE Routine 01/08/2019 4:56 LEUKO-REDUCED RED PM CDT BLOOD CELLS POCT-GLUCOSE METER Routine 01/08/2019 4:46 Results for this PM CDT procedure are in the results section. B-TYPE NATRIURETIC Routine 01/08/2019 3:33 Results for this FACTOR (BNP) PM CDT procedure are in the results section. BASIC METABOLIC PANEL CRISTELA 01/08/2019 3:33 Results for this (7) PM CDT procedure are in the results section. URIC ACID Routine 01/08/2019 3:33 Results for this PM CDT procedure are in the results section. ECG 12-LEAD STAT 01/08/2019 10:29 Results for this AM CDT procedure are in the results section. POCT-GLUCOSE METER Routine 01/08/2019 9:58 Results for this AM CDT procedure are in the results section. TYPE AND SCREEN, Routine 01/08/2019 9:04 Results for this AUTOMATED AM CDT procedure are in the results section. PROTHROMBIN TIME/INR Routine 01/08/2019 9:04 Results for this AM CDT procedure are in the results section. APTT Routine 01/08/2019 9:04 Results for this AM CDT procedure are in the results section. HEMOGLOBIN AND Routine 01/08/2019 9:04 Results for this HEMATOCRIT AM CDT procedure are in the results section. BASIC METABOLIC PANEL Routine 01/08/2019 9:04 Results for this (7) AM CDT procedure are in the results section. RHYTHM STRIP - SCAN 12/04/2018 2:23 PM FOREST SCIENCE PROFESSOR REPORT OF PROCEDURE - 12/04/2018 2:23 ENDOSCOPY SCAN PM FOREST SCIENCE PROFESSOR POCT-GLUCOSE METER Routine 12/01/2018 5:08 Results for this PM FOREST SCIENCE PROFESSOR procedure are in the results section. POCT-GLUCOSE METER Routine 12/01/2018 11:42 Results for this AM FOREST SCIENCE PROFESSOR procedure are in the results section. POCT-GLUCOSE METER Routine 12/01/2018 7:10 Results for this AM FOREST SCIENCE PROFESSOR procedure are in the results section. POCT-GLUCOSE METER Routine 11/30/2018 8:39 Results for this PM FOREST SCIENCE PROFESSOR procedure are in the results section. POCT-GLUCOSE METER Routine 11/30/2018 6:09 Results for this PM FOREST SCIENCE PROFESSOR procedure are in the results section. POCT-GLUCOSE METER Routine 11/30/2018 11:28 Results for this AM FOREST SCIENCE PROFESSOR procedure are in the results section. POCT-GLUCOSE METER Routine 11/30/2018 7:10 Results for this AM FOREST SCIENCE PROFESSOR procedure are in the results section. POCT-GLUCOSE METER Routine 11/29/2018 8:46 Results for this PM FOREST SCIENCE PROFESSOR procedure are in the results section. POCT-GLUCOSE METER Routine 11/29/2018 6:08 Results for this PM FOREST SCIENCE PROFESSOR procedure are in the results section. BASIC METABOLIC PANEL Routine 11/29/2018 3:00 Results for this (7) PM FOREST SCIENCE PROFESSOR procedure are in the results section. MAGNESIUM Routine 11/29/2018 3:00 Results for this PM FOREST SCIENCE PROFESSOR procedure are in the results section. PHOSPHORUS Routine 11/29/2018 3:00 Results for this PM FOREST SCIENCE PROFESSOR procedure are in the results section. HEMOGLOBIN AND Routine 11/29/2018 3:00 Results for this HEMATOCRIT PM FOREST SCIENCE PROFESSOR procedure are in the results section. POCT-GLUCOSE METER Routine 11/29/2018 12:28 Results for this PM FOREST SCIENCE PROFESSOR procedure are in the results section. POCT-GLUCOSE METER Routine 11/29/2018 8:25 Results for this AM FOREST SCIENCE PROFESSOR procedure are in the results section. HEMOGLOBIN AND Routine 11/28/2018 10:55 Results for this HEMATOCRIT PM FOREST SCIENCE PROFESSOR procedure are in the results section. POCT-GLUCOSE METER Routine 11/28/2018 8:18 Results for this PM FOREST SCIENCE PROFESSOR procedure are in the results section. POCT-GLUCOSE METER Routine 11/28/2018 6:09 Results for this PM FOREST SCIENCE PROFESSOR procedure are in the results section. US ASPIRATION Routine 11/28/2018 5:31 Results for this PM FOREST SCIENCE PROFESSOR procedure are in the results section. US RENAL BIOPSY CRISTELA 11/28/2018 5:31 Results for this PM FOREST SCIENCE PROFESSOR procedure are in the results section. CYTOLOGY AP Routine 11/28/2018 4:48 Results for this PM FOREST SCIENCE PROFESSOR procedure are in the results section. POCT-GLUCOSE METER Routine 11/28/2018 11:22 Results for this AM FOREST SCIENCE PROFESSOR procedure are in the results section. POCT-GLUCOSE METER Routine 11/28/2018 8:07 Results for this AM FOREST SCIENCE PROFESSOR procedure are in the results section. CBC W/PLT COUNT & Routine 11/28/2018 4:58 Results for this AUTO DIFFERENTIAL AM FOREST SCIENCE PROFESSOR procedure are in the results section. PHOSPHORUS Routine 11/28/2018 4:58 Results for this AM FOREST SCIENCE PROFESSOR procedure are in the results section. MAGNESIUM Routine 11/28/2018 4:58 Results for this AM FOREST SCIENCE PROFESSOR procedure are in the results section. CBC W/PLT COUNT & Routine 11/28/2018 4:58 Results for this AUTO DIFFERENTIAL AM FOREST SCIENCE PROFESSOR procedure are in the results section. CALCIUM, IONIZED Routine 11/28/2018 4:58 Results for this AM FOREST SCIENCE PROFESSOR procedure are in the results section. BASIC METABOLIC PANEL Routine 11/28/2018 4:58 Results for this (7) AM FOREST SCIENCE PROFESSOR procedure are in the results section. POCT-GLUCOSE METER Routine 11/27/2018 8:46 Results for this PM FOREST SCIENCE PROFESSOR procedure are in the results section. POCT-GLUCOSE METER Routine 11/27/2018 4:07 Results for this PM FOREST SCIENCE PROFESSOR procedure are in the results section. POCT-GLUCOSE METER Routine 11/27/2018 12:32 Results for this PM FOREST SCIENCE PROFESSOR procedure are in the results section. POCT-GLUCOSE METER Routine 11/27/2018 7:32 Results for this AM [employer]EST [employer] procedure are in the results section. CBC W/PLT COUNT & Routine 11/27/2018 6:02 Results for this AUTO DIFFERENTIAL AM FOREST SCIENCE PROFESSOR procedure are in the results section. PHOSPHORUS Routine 11/27/2018 6:02 Results for this AM [employer]EST SCIENCE PROF[employer]OR procedure are in the results section. CALCIUM, IONIZED Routine 11/27/2018 6:02 Results for this AM [employer]EST SCIENCE PROFESSOR procedure are in the results section. CBC W/PLT COUNT & Routine 11/27/2018 6:02 Results for this AUTO DIFFERENTIAL AM FOREST SCIENCE PROFESSOR procedure are in the results section. MAGNESIUM Routine 11/27/2018 6:02 Results for this AM [employer]EST SCIENCE PROFESSOR procedure are in the results section. BASIC METABOLIC PANEL Routine 11/27/2018 6:02 Results for this (7) AM FOREST SCIENCE PROFESSOR procedure are in the results section. POCT-GLUCOSE METER Routine 11/26/2018 9:14 Results for this PM [employer]EST SCIENCE PROFESSOR procedure are in the results section. POCT-GLUCOSE METER Routine 11/26/2018 5:52 Results for this PM [employer]EST SCIENCE PROFESSOR procedure are in the results section. PT/APTT Routine 11/26/2018 11:10 Results for this AM [employer]EST SCIENCE PROF[employer]OR procedure are in the results section. MAGNESIUM Routine 11/26/2018 11:10 Results for this AM FOREST SCIENCE PROFESSOR procedure are in the results section. PHOSPHORUS Routine 11/26/2018 11:10 Results for this AM FOREST SCIENCE PROFESSOR procedure are in the results section. BASIC METABOLIC PANEL Routine 11/26/2018 11:10 Results for this (7) AM [employer]EST SCIENCE PROFESSOR procedure are in the results section. CBC (HEMOGRAM ONLY) Routine 11/26/2018 11:10 Results for this AM FOREST SCIENCE PROFESSOR procedure are in the results section. POCT-GLUCOSE METER Routine 11/26/2018 7:27 Results for this AM [employer]EST SCIENCE PROFESSOR procedure are in the results section. POCT-GLUCOSE METER Routine 11/25/2018 8:16 Results for this PM [employer]EST SCIENCE PROFESSOR procedure are in the results section. POCT-GLUCOSE METER Routine 11/25/2018 5:47 Results for this PM [employer] SCIENCE PROFESSOR procedure are in the results section. POCT-GLUCOSE METER Routine 11/25/2018 11:33 Results for this AM FOREST SCIENCE PROFESSOR procedure are in the results section. NM KIDNEY IMAGING Routine 11/25/2018 11:15 Results for this SINGLE FLOWITH AM FOREST SCIENCE PROFESSOR procedure are in FUNCTION the results section. CBC W/PLT COUNT & Routine 11/25/2018 9:18 Results for this AUTO DIFFERENTIAL AM FOREST SCIENCE PROFESSOR procedure are in the results section. PHOSPHORUS Routine 11/25/2018 9:18 Results for this AM FOREST SCIENCE PROFESSOR procedure are in the results section. MAGNESIUM Routine 11/25/2018 9:18 Results for this AM FOREST SCIENCE PROFESSOR procedure are in the results section. CBC W/PLT COUNT & Routine 11/25/2018 9:18 Results for this AUTO DIFFERENTIAL AM FOREST SCIENCE PROFESSOR procedure are in the results section. CALCIUM, IONIZED Routine 11/25/2018 9:18 Results for this AM FOREST SCIENCE PROFESSOR procedure are in the results section. BASIC METABOLIC PANEL Routine 11/25/2018 9:18 Results for this (7) AM FOREST SCIENCE PROFESSOR procedure are in the results section. POCT-GLUCOSE METER Routine 11/25/2018 7:26 Results for this AM FOREST SCIENCE PROFESSOR procedure are in the results section. POCT-GLUCOSE METER Routine 11/24/2018 8:33 Results for this PM [employer]EST SCIENCE PROFESSOR procedure are in the results section. POCT-GLUCOSE METER Routine 11/24/2018 5:57 Results for this PM [employer]EST SCIENCE PROFESSOR procedure are in the results section. POCT-GLUCOSE METER Routine 11/24/2018 11:13 Results for this AM FOREST SCIENCE PROFESSOR procedure are in the results section. NM LUNG SCAN STAT 11/24/2018 10:48 Results for this PERFUSION PARTICULATE AM FOREST SCIENCE PROFESSOR procedure are in VENT the results section. POCT-GLUCOSE METER Routine 11/24/2018 7:41 Results for this AM FOREST SCIENCE PROFESSOR procedure are in the results section. CBC W/PLT COUNT & Routine 11/24/2018 5:39 Results for this AUTO DIFFERENTIAL AM FOREST SCIENCE PROFESSOR procedure are in the results section. CBC W/PLT COUNT & Routine 11/24/2018 5:39 Results for this AUTO DIFFERENTIAL AM FOREST SCIENCE PROFESSOR procedure are in the results section. PHOSPHORUS Routine 11/24/2018 5:39 Results for this AM FOREST SCIENCE PROFESSOR procedure are in the results section. MAGNESIUM Routine 11/24/2018 5:39 Results for this AM FOREST SCIENCE PROFESSOR procedure are in the results section. COMPREHENSIVE Routine 11/24/2018 5:39 Results for this METABOLIC PANEL AM FOREST SCIENCE PROFESSOR procedure are in the results section. CALCIUM, IONIZED Routine 11/24/2018 5:39 Results for this AM FOREST SCIENCE PROFESSOR procedure are in the results section. VANCOMYCIN LEVEL, Timed 11/24/2018 5:39 Results for this TROUGH AM FOREST SCIENCE PROFESSOR procedure are in the results section. POCT-GLUCOSE METER Routine 11/23/2018 9:09 Results for this PM [employer]EST SCIENCE PROFESSOR procedure are in the results section. MRSA SCREEN Routine 11/23/2018 8:21 Results for this PM FOREST SCIENCE PROFESSOR procedure are in the results section. POCT-GLUCOSE METER Routine 11/23/2018 5:24 Results for this PM [employer]EST SCIENCE PROFESSOR procedure are in the results section. POCT-GLUCOSE METER Routine 11/23/2018 11:18 Results for this AM FOREST SCIENCE PROFESSOR procedure are in the results section. POCT-GLUCOSE METER Routine 11/23/2018 7:10 Results for this AM [employer]EST SCIENCE PROFESSOR procedure are in the results section. CBC W/PLT COUNT & Routine 11/23/2018 5:10 Results for this AUTO DIFFERENTIAL AM FOREST SCIENCE PROFESSOR procedure are in the results section. B-TYPE NATRIURETIC Routine 11/23/2018 5:10 Results for this FACTOR (BNP) AM FOREST SCIENCE PROFESSOR procedure are in the results section. CBC W/PLT COUNT & Routine 11/23/2018 5:10 Results for this AUTO DIFFERENTIAL AM FOREST SCIENCE PROFESSOR procedure are in the results section. PHOSPHORUS Routine 11/23/2018 5:10 Results for this AM FOREST SCIENCE PROFESSOR procedure are in the results section. MAGNESIUM Routine 11/23/2018 5:10 Results for this AM FOREST SCIENCE PROFESSOR procedure are in the results section. CALCIUM, IONIZED Routine 11/23/2018 5:10 Results for this AM FOREST SCIENCE PROFESSOR procedure are in the results section. COMPREHENSIVE Routine 11/23/2018 5:10 Results for this METABOLIC PANEL AM FOREST SCIENCE PROFESSOR procedure are in the results section. CBC W/PLT COUNT & Routine 11/23/2018 12:16 Results for this AUTO DIFFERENTIAL AM FOREST SCIENCE PROFESSOR procedure are in the results section. LACTIC ACID, VENOUS Routine 11/23/2018 12:16 Results for this AM FOREST SCIENCE PROFESSOR procedure are in the results section. CBC W/PLT COUNT & Routine 11/23/2018 12:16 Results for this AUTO DIFFERENTIAL AM FOREST SCIENCE PROFESSOR procedure are in the results section. BLOOD CULTURE Routine 11/23/2018 12:16 Results for this AM FOREST SCIENCE PROFESSOR procedure are in the results section. CT CHEST WITHOUT IV Routine 11/22/2018 10:56 Results for this CONTRAST PM [employer]EST SCIENCE PROFESSOR procedure are in the results section. POCT-GLUCOSE METER Routine 11/22/2018 9:20 Results for this PM [employer]EST SCIENCE PROFESSOR procedure are in the results section. POCT-GLUCOSE METER Routine 11/22/2018 5:13 Results for this PM [employer] SCIENCE PROFESSOR procedure are in the results section. BLOOD CULTURE Routine 11/22/2018 4:40 Results for this PM [employer]EST SCIENCE PROFESSOR procedure are in the results section. POCT-GLUCOSE METER Routine 11/22/2018 11:18 Results for this AM FOREST SCIENCE PROFESSOR procedure are in the results section. POCT-GLUCOSE METER Routine 11/22/2018 7:21 Results for this AM FOREST SCIENCE PROFESSOR procedure are in the results section. COMPREHENSIVE Routine 11/22/2018 7:13 Results for this METABOLIC PANEL AM FOREST SCIENCE PROFESSOR procedure are in the results section. MAGNESIUM Routine 11/22/2018 7:13 Results for this AM FOREST SCIENCE PROFESSOR procedure are in the results section. CALCIUM, IONIZED Routine 11/22/2018 5:37 Results for this AM FOREST SCIENCE PROFESSOR procedure are in the results section. PHOSPHORUS Routine 11/22/2018 5:24 Results for this AM FOREST SCIENCE PROFESSOR procedure are in the results section. CBC W/PLT COUNT & STAT 11/21/2018 10:31 Results for this AUTO DIFFERENTIAL PM [employer]EST SCIENCE PROFESSOR procedure are in the results section. COMPREHENSIVE STAT 11/21/2018 10:31 Results for this METABOLIC PANEL PM [employer]EST SCIENCE PROFESSOR procedure are in the results section. LACTIC ACID, VENOUS STAT 11/21/2018 10:31 Results for this PM [employer]EST SCIENCE PROFESSOR procedure are in the results section. CBC W/PLT COUNT & STAT 11/21/2018 10:31 Results for this AUTO DIFFERENTIAL PM [employer]EST SCIENCE PROFESSOR procedure are in the results section. POCT-GLUCOSE METER Routine 11/21/2018 9:40 Results for this PM [employer]EST SCIENCE PROFESSOR procedure are in the results section. XR CHEST 1 VIEW Routine 11/21/2018 9:40 Results for this PORTABLE/BEDSIDE PM [employer]EST SCIENCE PROFESSOR procedure are in the results section. POCT-GLUCOSE METER Routine 11/21/2018 5:44 Results for this PM [employer] SCIENCE PROF[employer]OR procedure are in the results section. POCT-GLUCOSE METER Routine 11/21/2018 11:27 Results for this AM [employer]EST SCIENCE PROFESSOR procedure are in the results section. POCT-GLUCOSE METER Routine 11/21/2018 7:18 Results for this AM FOREST SCIENCE PROFESSOR procedure are in the results section. CBC W/PLT COUNT & Routine 11/21/2018 5:07 Results for this AUTO DIFFERENTIAL AM FOREST SCIENCE PROFESSOR procedure are in the results section. CBC W/PLT COUNT & Routine 11/21/2018 5:07 Results for this AUTO DIFFERENTIAL AM [employer]EST SCIENCE PROFESSOR procedure are in the results section. CALCIUM, IONIZED Routine 11/21/2018 5:07 Results for this AM FOREST SCIENCE PROFESSOR procedure are in the results section. PHOSPHORUS Routine 11/21/2018 5:07 Results for this AM [employer]EST SCIENCE PROFESSOR procedure are in the results section. MAGNESIUM Routine 11/21/2018 5:07 Results for this AM FOREST SCIENCE PROFESSOR procedure are in the results section. BASIC METABOLIC PANEL Routine 11/21/2018 5:07 Results for this (7) AM [employer]EST SCIENCE PROF[employer] procedure are in the results section. POCT-GLUCOSE METER Routine 11/20/2018 8:50 Results for this PM [employer] SCIENCE PROF[employer] procedure are in the results section. POCT-GLUCOSE METER Routine 11/20/2018 12:11 Results for this PM [employer]EST SCIENCE PROF[employer]OR procedure are in the results section. CT ABDOMEN - RENAL Routine 11/20/2018 9:54 Results for this MASS/CYST EVALUATION AM FOREST SCIENCE PROFESSOR procedure are in the results section. POCT-GLUCOSE METER Routine 11/20/2018 7:45 Results for this AM FOREST SCIENCE PROFESSOR procedure are in the results section. CBC W/PLT COUNT & Routine 11/20/2018 4:53 Results for this AUTO DIFFERENTIAL AM FOREST SCIENCE PROFESSOR procedure are in the results section. CELIAC DISEASE PANEL Routine 11/20/2018 4:53 Results for this AM FOREST SCIENCE PROFESSOR procedure are in the results section. CBC W/PLT COUNT & Routine 11/20/2018 4:53 Results for this AUTO DIFFERENTIAL AM FOREST SCIENCE PROFESSOR procedure are in the results section. PHOSPHORUS Routine 11/20/2018 4:53 Results for this AM FOREST SCIENCE PROFESSOR procedure are in the results section. MAGNESIUM Routine 11/20/2018 4:53 Results for this AM FOREST SCIENCE PROFESSOR procedure are in the results section. CALCIUM, IONIZED Routine 11/20/2018 4:53 Results for this AM FOREST SCIENCE PROFESSOR procedure are in the results section. BASIC METABOLIC PANEL Routine 11/20/2018 4:53 Results for this (7) AM [employer]EST SCIENCE PROFESS[employer] procedure are in the results section. POCT-GLUCOSE METER Routine 11/19/2018 8:38 Results for this PM [employer] SCIENCE PROF[employer]OR procedure are in the results section. XR ABDOMEN 1 VIEW CRISTELA 11/19/2018 8:01 Results for this PM FOREST SCIENCE PROFESSOR procedure are in the results section. POCT-GLUCOSE METER Routine 11/19/2018 7:45 Results for this PM [employer]EST SCIENCE PROFESSOR procedure are in the results section. REPORT OF PROCEDURE - 11/19/2018 6:54 ENDOSCOPY URL PM FOREST SCIENCE PROFESSOR POCT-GLUCOSE METER Routine 11/19/2018 4:54 Results for this PM FOREST SCIENCE PROFESSOR procedure are in the results section. XR CHEST 1 VIEW Routine 11/19/2018 3:00 Results for this PORTABLE/BEDSIDE PM FOREST SCIENCE PROFESSOR procedure are in the results section. COLONOSCOPY 11/19/2018 1:00 Anemia, unspecified PM FOREST SCIENCE PROFESSOR type POCT-GLUCOSE METER Routine 11/19/2018 11:52 Results for this AM FOREST SCIENCE PROFESSOR procedure are in the results section. POCT-GLUCOSE METER Routine 11/19/2018 7:00 Results for this AM FOREST SCIENCE PROFESSOR procedure are in the results section. CBC W/PLT COUNT & Routine 11/19/2018 6:14 Results for this AUTO DIFFERENTIAL AM FOREST SCIENCE PROFESSOR procedure are in the results section. CBC W/PLT COUNT & Routine 11/19/2018 6:14 Results for this AUTO DIFFERENTIAL AM FOREST SCIENCE PROFESSOR procedure are in the results section. PHOSPHORUS Routine 11/19/2018 6:14 Results for this AM FOREST SCIENCE PROFESSOR procedure are in the results section. MAGNESIUM Routine 11/19/2018 6:14 Results for this AM FOREST SCIENCE PROFESSOR procedure are in the results section. BASIC METABOLIC PANEL Routine 11/19/2018 6:14 Results for this (7) AM FOREST SCIENCE PROF[employer]OR procedure are in the results section. POCT-GLUCOSE METER Routine 11/18/2018 8:48 Results for this PM [employer] SCIENCE PROFESSOR procedure are in the results section. POCT-GLUCOSE METER Routine 11/18/2018 10:53 Results for this AM FOREST SCIENCE PROFESSOR procedure are in the results section. POCT-GLUCOSE METER Routine 11/18/2018 7:16 Results for this AM FOREST SCIENCE PROFESSOR procedure are in the results section. CBC W/PLT COUNT & Routine 11/18/2018 4:29 Results for this AUTO DIFFERENTIAL AM FOREST SCIENCE PROFESSOR procedure are in the results section. PHOSPHORUS Routine 11/18/2018 4:29 Results for this AM FOREST SCIENCE PROFESSOR procedure are in the results section. MAGNESIUM Routine 11/18/2018 4:29 Results for this AM FOREST SCIENCE PROFESSOR procedure are in the results section. CBC W/PLT COUNT & Routine 11/18/2018 4:29 Results for this AUTO DIFFERENTIAL AM FOREST SCIENCE PROFESSOR procedure are in the results section. CALCIUM, IONIZED Routine 11/18/2018 4:29 Results for this AM FOREST SCIENCE PROFESSOR procedure are in the results section. BASIC METABOLIC PANEL Routine 11/18/2018 4:29 Results for this (7) AM FOREST SCIENCE PROFESSOR procedure are in the results section. POCT-GLUCOSE METER Routine 11/17/2018 9:26 Results for this PM [employer] SCIENCE PROF[employer]OR procedure are in the results section. POCT-GLUCOSE METER Routine 11/17/2018 5:10 Results for this PM [employer] SCIENCE PROF[employer]OR procedure are in the results section. POCT-GLUCOSE METER Routine 11/17/2018 11:47 Results for this AM [employer]EST SCIENCE PROFESSOR procedure are in the results section. BASIC METABOLIC PANEL Routine 11/17/2018 9:01 Results for this (7) AM [employer]EST SCIENCE PROF[employer] procedure are in the results section. CBC (HEMOGRAM ONLY) Routine 11/17/2018 9:01 Results for this AM [employer]EST SCIENCE PROFESSOR procedure are in the results section. POCT-GLUCOSE METER Routine 11/17/2018 7:16 Results for this AM [employer] SCIENCE PROFESSOR procedure are in the results section. POCT-GLUCOSE METER Routine 11/16/2018 7:58 Results for this PM [employer] SCIENCE PROFESSOR procedure are in the results section. POCT-GLUCOSE METER Routine 11/16/2018 5:49 Results for this PM [employer] SCIENCE PROFESSOR procedure are in the results section. POCT-GLUCOSE METER Routine 11/16/2018 11:25 Results for this AM FOREST SCIENCE PROFESSOR procedure are in the results section. POCT-GLUCOSE METER Routine 11/16/2018 8:08 Results for this AM FOREST SCIENCE PROFESSOR procedure are in the results section. COMPREHENSIVE Routine 11/16/2018 4:43 Results for this METABOLIC PANEL AM [employer]EST SCIENCE PROFESSOR procedure are in the results section. CBC (HEMOGRAM ONLY) Routine 11/16/2018 4:43 Results for this AM [employer]EST SCIENCE PROFESSOR procedure are in the results section. POCT-GLUCOSE METER Routine 11/15/2018 9:03 Results for this PM [employer] SCIENCE PROFESSOR procedure are in the results section. POCT-GLUCOSE METER Routine 11/15/2018 5:19 Results for this PM [employer] SCIENCE PROFESSOR procedure are in the results section. POCT-GLUCOSE METER Routine 11/15/2018 11:40 Results for this AM [employer]EST SCIENCE PROFESSOR procedure are in the results section. POCT-GLUCOSE METER Routine 11/15/2018 7:32 Results for this AM [employer] SCIENCE PROFESSOR procedure are in the results section. POCT-GLUCOSE METER Routine 11/15/2018 6:25 Results for this AM [employer] SCIENCE PROFESSOR procedure are in the results section. BASIC METABOLIC PANEL Routine 11/15/2018 5:36 Results for this (7) AM [employer] SCIENCE PROFESSOR procedure are in the results section. CBC (HEMOGRAM ONLY) Routine 11/15/2018 5:36 Results for this AM [employer]EST SCIENCE PROFESSOR procedure are in the results section. B-TYPE NATRIURETIC Routine 11/15/2018 5:36 Results for this FACTOR (BNP) AM FOREST SCIENCE PROFESSOR procedure are in the results section. POCT-GLUCOSE METER Routine 11/14/2018 8:26 Results for this PM [employer] SCIENCE PROF[employer]OR procedure are in the results section. XR CHEST 1 VIEW Routine 11/14/2018 6:51 Results for this PORTABLE/BEDSIDE PM [employer] SCIENCE PROFESSOR procedure are in the results section. XR ABDOMEN 1 VIEW STAT 11/14/2018 6:45 Results for this PM [employer] SCIENCE PROFESSOR procedure are in the results section. POCT-GLUCOSE METER Routine 11/14/2018 5:24 Results for this PM [employer] SCIENCE PROFESSOR procedure are in the results section. TROPONIN I Routine 11/14/2018 3:45 Results for this PM [employer] SCIENCE PROFESSOR procedure are in the results section. CREATINE KINASE (CK) Routine 11/14/2018 3:45 Results for this PM [employer] SCIENCE PROFESSOR procedure are in the results section. ECG 12-LEAD Routine 11/14/2018 3:26 PM FOREST SCIENCE PROFESSOR Procedure Note - Interface, External Ris In - 11/14/2018 3:41 PM FOREST SCIENCE PROFESSOR Ventricular Rate 103 BPM Atrial Rate 103 BPM P-R Interval 80 ms QRS Duration 120 ms Q-T Interval 336 ms QTC Calculation(Bazett) 440 ms P [place] 24 degrees R [place] -60 degrees T [place] 71 degrees Sinus tachycardia with short NC Left axis deviation Low voltage QRS Inferior infarct , age undetermined Abnormal ECG When compared with ECG of 11-NOV-2013 07:26, Significant changes have occurred ECG 12-LEAD Routine 11/14/2018 3:26 PM Results for this FOREST SCIENCE PROFESSOR procedure are in the results section. XR ABDOMEN 1 VIEW STAT 11/14/2018 3:20 PM Results for this FOREST SCIENCE PROFESSOR procedure are in the results section. POCT-GLUCOSE METER Routine 11/14/2018 11:26 AM Results for this FOREST SCIENCE PROFESSOR procedure are in the results section. POCT-GLUCOSE METER Routine 11/14/2018 7:41 AM Results for this FOREST SCIENCE PROFESSOR procedure are in the results section. CBC W/PLT COUNT & AUTO Routine 11/14/2018 5:02 AM Results for this DIFFERENTIAL FOREST SCIENCE PROFESSOR procedure are in the results section. PROTHROMBIN TIME/INR Routine 11/14/2018 5:02 AM Results for this FOREST SCIENCE PROFESSOR procedure are in the results section. COMPREHENSIVE Routine 11/14/2018 5:02 AM Results for this METABOLIC PANEL FOREST SCIENCE PROFESSOR procedure are in the results section. CBC W/PLT COUNT & AUTO Routine 11/14/2018 5:02 AM Results for this DIFFERENTIAL FOR[employer] SCIENCE PROF[employer]OR procedure are in the results section. US RENAL COMPLETE Routine 11/13/2018 11:20 PM Results for this FOREST SCIENCE PROFESSOR procedure are in the results section. POCT-GLUCOSE METER Routine 11/13/2018 9:20 PM Results for this FOREST SCIENCE PROFESSOR procedure are in the results section. TRANSFUSION SERVICE 11/13/2018 6:03 PM REPORT - SCAN FOREST SCIENCE PROFESSOR POCT-GLUCOSE METER Routine 11/13/2018 5:28 PM Results for this FOREST SCIENCE PROFESSOR procedure are in the results section. POCT-GLUCOSE METER Routine 11/13/2018 3:37 PM Results for this FOREST SCIENCE PROFESSOR procedure are in the results section. REPORT OF PROCEDURE - 11/13/2018 1:40 PM ENDOSCOPY URL FOREST SCIENCE PROFESSOR REPORT OF PROCEDURE - 11/13/2018 1:10 PM ENDOSCOPY URL FOREST SCIENCE PROFESSOR POCT-GLUCOSE METER Routine 11/13/2018 12:24 PM Results for this FOR[employer] SCIENCE PROFESSOR procedure are in the results section. COLONOSCOPY 11/13/2018 12:00 PM Iron deficiency FOREST SCIENCE PROFESSOR anemia, unspecified iron deficiency anemia type Special Needs REQ:TF UPPER ENDOSCOPY 11/13/2018 12:00 PM FOREST SCIENCE PROFESSOR Iron deficiency anemia, unspecified iron deficiency anemia type Special Needs REQ:TF POCT-GLUCOSE METER Routine 11/13/2018 11:38 AM FOREST SCIENCE PROFESSOR POCT-GLUCOSE METER Routine 11/13/2018 7:21 AM FOREST SCIENCE PROFESSOR CBC W/PLT COUNT & AUTO Routine 11/13/2018 5:10 AM FOREST SCIENCE PROFESSOR Results for this DIFFERENTIAL procedure are in the results section. HEMOGLOBIN A1C Routine 11/13/2018 5:10 AM FOREST SCIENCE PROFESSOR TROPONIN I Routine 11/13/2018 5:10 AM FOREST SCIENCE PROFESSOR OSMOLALITY, SERUM Routine 11/13/2018 5:10 AM FOREST SCIENCE PROFESSOR TSH/FREE T4 IF INDICATED Routine 11/13/2018 5:10 AM FOREST SCIENCE PROFESSOR CREATINE KINASE (CK) Routine 11/13/2018 5:10 AM FOREST SCIENCE PROFESSOR B-TYPE NATRIURETIC FACTOR Routine 11/13/2018 5:10 AM FOREST SCIENCE PROFESSOR Results for this (BNP) procedure are in the results section. PHOSPHORUS Routine 11/13/2018 5:10 AM FOREST SCIENCE PROFESSOR MAGNESIUM Routine 11/13/2018 5:10 AM FOREST SCIENCE PROFESSOR CALCIUM, IONIZED Routine 11/13/2018 5:10 AM FOREST SCIENCE PROFESSOR PROTHROMBIN TIME/INR Routine 11/13/2018 5:10 AM FOREST SCIENCE PROFESSOR COMPREHENSIVE METABOLIC Routine 11/13/2018 5:10 AM FOREST SCIENCE PROFESSOR Results for this PANEL procedure are in the results section. CBC W/PLT COUNT & AUTO Routine 11/13/2018 5:10 AM [employer]EST SCIENCE PROFESSOR Results for this DIFFERENTIAL procedure are in the results section. OSMOLALITY, URINE Routine 11/13/2018 12:58 AM FOREST SCIENCE PROFESSOR CREATININE, RANDOM URINE Routine 11/13/2018 12:58 AM FOR[employer] SCIENCE PROFESSOR PROTEIN, RANDOM URINE Routine 11/13/2018 12:58 AM FOREST SCIENCE PROFESSOR SODIUM, RANDOM URINE Routine 11/13/2018 12:58 AM FOREST SCIENCE PROFESSOR URINALYSIS W/ MICROSCOPIC Routine 11/13/2018 12:58 AM FOREST SCIENCE PROFESSOR HEMOGLOBIN AND HEMATOCRIT Routine 11/13/2018 12:49 AM FOREST SCIENCE PROFESSOR POCT-GLUCOSE METER Routine 11/12/2018 9:16 PM [employer] SCIENCE PROFESSOR POCT-GLUCOSE METER Routine 11/12/2018 4:36 PM [employer] SCIENCE PROFESSOR HEMOGLOBIN AND HEMATOCRIT Routine 11/12/2018 4:05 PM [employer] SCIENCE PROFESSOR POCT-GLUCOSE METER Routine 11/12/2018 1:53 PM [employer] SCIENCE PROFESSOR HEMOGLOBIN AND HEMATOCRIT Routine 11/12/2018 12:26 PM FOREST SCIENCE PROFESSOR URINALYSIS W/ REFLEX URINE Routine 11/12/2018 3:11 AM [employer] SCIENCE PROFESSOR Results for this CULTURE procedure are in the results section. URINE CULTURE Routine 11/12/2018 3:11 AM FOREST SCIENCE PROFESSOR IRON, TIBC, % SAT. (WITHOUT Routine 11/12/2018 3:10 AM [employer] SCIENCE PROFESSOR Results for this FERRITIN) procedure are in the results section. FERRITIN Routine 11/12/2018 3:10 AM FOREST SCIENCE PROFESSOR RETICULOCYTE COUNT Routine 11/12/2018 3:10 AM FOREST SCIENCE PROFESSOR CBC W/PLT COUNT & AUTO Routine 11/12/2018 12:50 AM [employer] SCIENCE PROFESSOR Results for this DIFFERENTIAL procedure are in the results section. TYPE AND SCREEN, AUTOMATED Routine 11/12/2018 12:50 AM [employer]EST SCIENCE PROFESSOR PROTHROMBIN TIME/INR Routine 11/12/2018 12:50 AM [employer]EST SCIENCE PROFESSOR COMPREHENSIVE METABOLIC Routine 11/12/2018 12:50 AM [employer] SCIENCE PROFESSOR Results for this PANEL procedure are in the results section. 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 POCT-GLUCOSE METER Routine 11/11/2018 8:41 PM FOREST SCIENCE PROFESSOR after 01/29/2018 Results RHYTHM STRIP - SCAN (01/20/2019 3:41 PM CDT)Only the most recent of2 resultswithin the time period is included. Narrative Performed At [facility] (01/19/2019 4:27 PM CDT)Only the most recent of122 resultswithin the time period is included. POC-Glucose Meter 166 (H)Comment: TESTED AT 70 - 110 mg/dL [facility] [id number] [facility] [address] Specimen Blood Performing Organization Address City/State/Zipcode Phone Number [facility] [address] [place] [address] [phone] CENTER IR PICC line placement older than 5 yrs (01/19/2019 1:55 PM CDT) Specimen Narrative Performed At FINAL REPORT [facility] Right upper extremity PICC insertion. History: Need for long-term IV therapy. Die Cast Supervisor:Brandon Devries MD. Nursing Aide: Char Portillo (fellow). Modality: Sonography and fluoroscopy. Sedation: None. Anesthesia:Two percent Lidocaine without epinephrine. Approach:Right basilic vein Estimated blood loss:< 5 cc. Specimen: None. Fluoroscopy Time: 0.4 min. Reference Air Kerma (Ka, r): 4.4 mGy. Technique: Informed written consent was obtained. Discussion of risks, benefits, and alternatives were made with the patient. The patient expressed understanding and agreed to proceed.A universal timeout was performed prior to starting the procedure.All elements maximal sterile barrier technique was utilized for this procedure, including utilization of sterile scrub solution for skin prep, a large sterile sheet to cover the areas of the patient that were not prepped, and hand hygiene, mask, head covering, and sterile gown for performing radiologist and scrub technologist. The skin was anesthetized with 2% lidocaine.Ultrasound evaluation showed a patent and compressible right basilic vein, which was punctured under direct real-time ultrasound guidance with a micropuncture needle.An ultrasound image was saved to PACS.A 0.018 inch wire was placed through the needle into the right atrium. A 5 Estonian peel-away sheath was placed. The 5 Estonian double-lumen PICC line was measured and cut at 40 cm, and advanced through the sheath, with its distal tip terminating within the SVC. The peel-away sheath was removed.The ports were flushed and aspirated easily following placement.The PICC line was secured with suture material. Vital signs were monitored throughout the procedure by a nurse, and remained stable.The patient tolerated the procedure well and left the department in the same condition. Results:Spot radiograph of the chest demonstrates the new right upper extremity PICC line to lie in the expected position with its tip overlying the SVC. Impression: Successful, uncomplicated placement of a right upper extremity PICC using sonographic and fluoroscopic guidance.The catheter is ready for immediate use. Signed: Brandon Devries MD Report Verified Date/Time:01/19/2019 14:38:36 Reading Location: [facility] P048 Angio Body Reading Room Procedure Note Interface, External Ris In - 01/19/2019 2:40 PM CDT FINAL REPORT Right upper extremity PICC insertion. History: Need for long-term IV therapy. Die Cast Supervisor: Brandon Devries MD. Nursing Aide: Char Portillo (fellow). Modality: Sonography and fluoroscopy. Sedation: None. Anesthesia: Two percent Lidocaine without epinephrine. Approach: Right basilic vein Estimated blood loss: < 5 cc. Specimen: None. Fluoroscopy Time: 0.4 min. Reference Air Kerma (Ka, r): 4.4 mGy. Technique: Informed written consent was obtained. Discussion of risks, benefits, and alternatives were made with the patient. The patient expressed understanding and agreed to proceed. A universal timeout was performed prior to starting the procedure. All elements maximal sterile barrier technique was utilized for this procedure, including utilization of sterile scrub solution for skin prep, a large sterile sheet to cover the areas of the patient that were not prepped, and hand hygiene, mask, head covering, and sterile gown for performing radiologist and scrub technologist. The skin was anesthetized with 2% lidocaine. Ultrasound evaluation showed a patent and compressible right basilic vein, which was punctured under direct real-time ultrasound guidance with a micropuncture needle. An ultrasound image was saved to PACS. A 0.018 inch wire was placed through the needle into the right atrium. A 5 Estonian peel-away sheath was placed. The 5 Estonian double-lumen PICC line was measured and cut at 40 cm, and advanced through the sheath, with its distal tip terminating within the SVC. The peel-away sheath was removed. The ports were flushed and aspirated easily following placement. The PICC line was secured with suture material. Vital signs were monitored throughout the procedure by a nurse, and remained stable. The patient tolerated the procedure well and left the department in the same condition. Results: Spot radiograph of the chest demonstrates the new right upper extremity PICC line to lie in the expected position with its tip overlying the SVC. Impression: Successful, uncomplicated placement of a right upper extremity PICC using sonographic and fluoroscopic guidance. The catheter is ready for immediate use. Signed: Brandon Devries MD Report Verified Date/Time: 01/19/2019 14:38:36 Reading Location: [place] [id number] Angio Body Reading Room Performing Organization Address City/State/Zipcode Phone Number [facility] Magnesium (01/19/2019 6:29 AM CDT)Only the most recent of18 resultswithin the time period is included. Magnesium 1.8Comment: Specimen slightly 1.6 - 2.6 mg/dL [facility] Specimen Blood Performing Organization Address City/[facility]/Zipcode Phone Number [facility] [address] [place] [phone] [place] Basic Metabolic Panel (01/19/2019 6:29 AM CDT)Only the most recent of23 resultswithin the time period is included. Sodium 141 136 - 145 meq/L [facility] Potassium 3.7Comment: Specimen slightly 3.5 - 5.1 meq/L [facility] Chloride 114 (H) 98 - 107 meq/L [facility] CO2 21 (L) 22 - 29 meq/L [facility] BUN 17 7 - 21 mg/dL [facility] Creatinine 1.09Comment: Specimen 0.57 - 1.25 mg/dL [facility] slightly hemolyzed [facility] Glucose 116 (H) 70 - 105 mg/dL [facility] Calcium 8.8 8.4 - 10.2 mg/dL [facility] EGFR 66Comment: ESTIMATED GFR IS mL/min/1.73 sq m [facility] NOT ACCURATE CREATININE [facility] CLEARANCE IN PREDICTING GLOMERULAR FILTRATION RATE. ESTIMATED GFR IS NOT APPLICABLE FOR DIALYSIS PATIENTS. Specimen Blood Performing Organization Address City/[facility]/Zipcode Phone Number [address] [address] [phone] [place] Calcium, Ionized (01/17/2019 4:45 AM CDT)Only the most recent of13 resultswithin the time period is included. Calcium, Ion 1.08 (L) 1.12 - 1.27 mmol/L [facility] pH, Blood 7.46 [facility] Specimen Blood Performing Organization Address City/State/Zipcode Phone Number [facility] [address] [place] [address] [phone] CENTER CBC with platelet count + automated diff (01/17/2019 4:45 AM CDT)Only the most recent of20 resultswithin the time period is included. WBC 8.0 3.5 - 10.5 K/L [facility] RBC 3.63 (L) 4.63 - 6.08 M/L [facility] Hemoglobin 9.3 (L) 13.7 - 17.5 GM/DL [facility] Hematocrit 31.1 (L) 40.1 - 51.0 % [facility] MCV 85.7 79.0 - 92.2 fL [facility] MCH 25.6 (L) 25.7 - 32.2 pg [facility] MCHC 29.9 (L) 32.3 - 36.5 GM/DL [facility] RDW 17.6 (H) 11.6 - 14.4 % [facility] Platelets 188 150 - 450 K/CU MM [facility] MPV 9.8 9.4 - 12.4 fL [facility] nRBC 0 0 - 0 /100 WBC [facility] % Neutros 59 % [facility] % Lymphs 30 % [facility] % Monos 7 % [facility] % Eos 3 % [facility] % Baso 1 % [facility] # Neutros 4.67 1.78 - 5.38 K/L [facility] # Lymphs 2.37 1.32 - 3.57 K/L [facility] # Monos 0.55 0.30 - 0.82 K/L [facility] # Eos 0.27 0.04 - 0.54 K/L [facility] # Baso 0.06 0.01 - 0.08 K/L [facility] Immature Granulocytes-Relative 1 0 - 1 % [facility] Specimen Blood Performing Organization Address City/[facility]/Zipcode Phone Number [address] [address] CENTER Phosphorus (01/17/2019 4:45 AM CDT)Only the most recent of17 resultswithin the time period is included. Phosphorus 3.1 2.3 - 4.7 mg/dL [facility] Specimen Blood Performing Organization Address [place]/[facility] Phone Number [address] [address] [place] Prothrombin time/INR (01/16/2019 7:18 AM CDT)Only the most recent of5 resultswithin the time period is included. Protime 16.0 (H) 11.7 - 14.7 seconds [facility] INR 1.3 <=5.9 [facility] Specimen Blood Narrative Performed At RECOMMENDED COUMADIN/WARFARIN INR THERAPY [facility] RANGES STANDARD DOSE: 2.0 - 3.0 Includes: PROPHYLAXIS for venous thrombosis, systemic embolization; TREATMENT for venous thrombosis and/or pulmonary embolus. HIGH RISK: Target INR is 2.5-3.5 for patients with mechanical heart valves. Performing Organization Address City/[facility] Centercode Phone Number [address] [phone] CENTER B-type Natriuretic Factor (BNP) (01/14/2019 5:21 AM CDT)Only the most recent of6 resultswithin the time period is included. BNP 298 (H) 0 - 100 pg/mL [facility] Specimen Blood Performing Organization Address City/State/Zipcode Phone Number [facility] [address] [place] [address] CENTER MR brain without & with IV contrast (01/12/2019 11:53 PM CDT) Specimen Narrative Performed At FINAL REPORT [facility] MR, BRAIN, WITH \\T\\ WITHOUT CONTRAST INDICATION: large renal mass, metastatic workup Technique: MRI of the brain utilizing axial T1, T2, FLAIR, GRE, DWI, sagittal T1; and postgadolinium axial, sagittal, and coronal T1-weighted images. COMPARISON: None FINDINGS: Brain parenchyma is normal in morphology. Midline structures are normally developed. No restricted diffusion to suggest recent ischemic insult. No abnormal susceptibility. Scattered T2/FLAIR hyperintense foci within the periventricular and subcortical white matter are nonspecific, however, statistically represent chronic microvascular ischemic changes. No abnormal enhancement. No hydrocephalus. Orbits are within normal limits. No obstructive paranasal sinus disease. Calvarium and skull base demonstrate marrow signal within normal limits for age without focal lesion. Additional findings: None. IMPRESSION: No evidence of intracranial metastatic disease Signed: Jeff Sanford MD Report Verified Date/Time:01/13/2019 04:02:20 Reading Location: [address] Neuro Reading Room Procedure Note Interface, External Ris In - 01/13/2019 4:04 AM CDT FINAL REPORT MR, BRAIN, WITH \\T\\ WITHOUT CONTRAST INDICATION: large renal mass, metastatic workup Technique: MRI of the brain utilizing axial T1, T2, FLAIR, GRE, DWI, sagittal T1; and postgadolinium axial, sagittal, and coronal T1-weighted images. COMPARISON: None FINDINGS: Brain parenchyma is normal in morphology. Midline structures are normally developed. No restricted diffusion to suggest recent ischemic insult. No abnormal susceptibility. Scattered T2/FLAIR hyperintense foci within the periventricular and subcortical white matter are nonspecific, however, statistically represent chronic microvascular ischemic changes. No abnormal enhancement. No hydrocephalus. Orbits are within normal limits. No obstructive paranasal sinus disease. Calvarium and skull base demonstrate marrow signal within normal limits for age without focal lesion. Additional findings: None. IMPRESSION: No evidence of intracranial metastatic disease Signed: Jeff Sanford MD Report Verified Date/Time: 01/13/2019 04:02:20 Reading Location: [facility] B1 C013V Neuro Reading Room Performing Organization Address City/State/Zipcode Phone Number [facility] 2D Echo W/Doppler(CW/PW/Color) (01/12/2019 3:44 PM CDT) Ejection Fraction [facility] ECHO HEARTLAB MKCKESSON CPA Specimen Narrative Performed At Transthoracic Echocardiography Report (TTE) [facility] ECHO HEARTLAB [facility] Demographics Patient NameMark REEDte of Study01/12/2019 JULIANA Male Visit [id number] Unknown Room [id number] Number Date of 1945Referring Sabrina Hargrove Physician Age 73 year(s)Net Applications Developer Kailey Fairbanks RDCS Interpreting [facility] Needs to be Pre PhysicianRead MD Elena Mckee FEL Procedure Type of Study TTE procedure:2DECHO W DOPPLER(CW/PW/COLOR) (Routine) Indications:Shortness of breath. Clinical History COPD Atrial Fibrillation/flutter Congestive Heart Failure Diabetes Coronary Artery Disease Hyperlipidemia Hypertension Contrast Medium: Definity. Amount - 2 ml Height: 71 inches Weight: 113.85 kg (251 lbs) BSA: 2.32 m^2 BMI: 35.01 kg/m^2 HR: 102 bpm BP: 122/78 mmHg Summary The left ventricle is chamber size (by vol index) is normal. All of the LV segments contract normally . Estimated LVEF by qualitative assessment is normal (>60%) . RA cavity size is normal . A mobile, pedunculated mass (4.9cm x 1.3cm) is visualized extending from the IVC into the RA. Findings suggestive of venous thrombus cast. Unable to estimate peak systolic PA pressure; inadequate TR velocity signal. No significant pericardial effusion is visualized. Signature Findings Left Ventricle The left ventricle is chamber size (by vol index) is normal. Normal LV wall thickness. All of the LV se gments contract normally . Global LV systolic fu nction normal . Estimated LVEF by qualitative as sessment is normal (>60%) . De gree of diastolic dysfunction (LAP assessment) is in conclusive due to arrhythmia . Left AtriumLA size is mildly enlarged . Right VentricleRV chamber size is normal . Global RV systolic fu nction is low normal . Right Atrium RA cavity size is normal . A mobile, pedunculated ma ss (4.9cm x 1.3cm) is visualized extending from th e IVC into the RA. Findings suggestive of venous th rombus cast. Atrial SeptumNormal interatrial septum by available views. Aortic Valve Mild AoV cusp calcification. No evidence of aortic st enosis. No evidence of aortic regurgitation. Mitral Valve Mild MV leaflet thickening. Trace mitral re gurgitation. No evidence of mitral stenosis. Tricuspid ValveNormal TV structure and function. Unable to es timate peak systolic PA pressure; inadequate TR ve locity signal. Pulmonic Valve PV is not well visualized. AortaAortic root size (SInus of Valsalva diameter) is no rmal . PericardiumNo significant pericardial effusion is visualized. IVC/SVC/PA/PV/PleuralThe estimated RA pressure by IVC dynamics 5-10mmHg . IVC echo density is noted, consistent with th rombus . Chambers/Structures Left Atrium LA Volume: 83.62 ml LA Area: 26.92 cm^2 LA Vol. Index: 36 ml/m^2 Left Ventricle LVIDd: 5.42 cm LV Septum Diastolic: 0.7 cm LV PW Diastolic: 0.99 cm LVEDV Bell's:82.66 ml LVESV Bell's:33.31 ml LVEF Bell's: 59.7 % LVEDVI: 36 ml/m^2 LVESVI: 14 ml/m^2 LVOT Diameter: 2.14 cm Right Atrium RA Vol. (Sngl Plane): 51.06 ml Right Ventricle RV Diast Dim.: 3.21 cm TAPS E: 1.45 cm Aorta Ao Root S of Betsy.: 3.48 cm Doppler/Quantitative Measurements LVOT Peak Velocity: 0.99 m/s Peak Gradient: 3.92 mmHg Mean Velocity: 0.62 m/s Mean Gradient: 1.88 mmHg LVOT Diameter: 2.14 cmLVOT VTI: 17.72 cm LVOT Area: 3.6 cm^2 LVOT SV:63.7 ml LVOT CO: 6.5 l/minLVOT CI: 2.8 l/min/m^2 Procedure Note Interface, External Ris In - 01/13/2019 10:05 AM CDT Transthoracic Echocardiography Report (TTE) Demographics Patient Name JUAN REED Date of Study 01/12/2019 JULIANA Gender Male Visit Number [id number] Race Unknown Room Number 1642 Number Date of 1945 Referring Sabrina Hargrove Physician Age 73 year(s) Net Applications Developer Kailey Fairbanks, DORIS Interpreting [facility] Needs to be Pre Physician Read Alexandr Cole MD Fellow SVETLANA Garcia Procedure Type of Study TTE procedure:2DECHO W DOPPLER(CW/PW/COLOR) (Routine) Indications:Shortness of breath. Clinical History COPD Atrial Fibrillation/flutter Congestive Heart Failure Diabetes Coronary Artery Disease Hyperlipidemia Hypertension Contrast Medium: Definity. Amount - 2 ml Height: 71 inches Weight: 113.85 kg (251 lbs) BSA: 2.32 m^2 BMI: 35.01 kg/m^2 HR: 102 bpm BP: 122/78 mmHg Summary The left ventricle is chamber size (by vol index) is normal. All of the LV segments contract normally . Estimated LVEF by qualitative assessment is normal (>60%) . RA cavity size is normal . A mobile, pedunculated mass (4.9cm x 1.3cm) is visualized extending from the IVC into the RA. Findings suggestive of venous thrombus cast. Unable to estimate peak systolic PA pressure; inadequate TR velocity signal. No significant pericardial effusion is visualized. Signature Findings Left Ventricle The left ventricle is chamber size (by vol index) is normal. Normal LV wall thickness. All of the LV segments contract normally . Global LV systolic function normal . Estimated LVEF by qualitative assessment is normal (>60%) . Degree of diastolic dysfunction (LAP assessment) is inconclusive due to arrhythmia . Left Atrium LA size is mildly enlarged . Right Ventricle RV chamber size is normal . Global RV systolic function is low normal . Right Atrium RA cavity size is normal . A mobile, pedunculated mass (4.9cm x 1.3cm) is visualized extending from the IVC into the RA. Findings suggestive of venous thrombus cast. Atrial Septum Normal interatrial septum by available views. Aortic Valve Mild AoV cusp calcification. No evidence of aortic stenosis. No evidence of aortic regurgitation. Mitral Valve Mild MV leaflet thickening. Trace mitral regurgitation. No evidence of mitral stenosis. Tricuspid Valve Normal TV structure and function. Unable to estimate peak systolic PA pressure; inadequate TR velocity signal. Pulmonic Valve PV is not well visualized. Aorta Aortic root size (SInus of Valsalva diameter) is normal . Pericardium No significant pericardial effusion is visualized. IVC/SVC/PA/PV/Pleural The estimated RA pressure by IVC dynamics 5-10mmHg . IVC echo density is noted, consistent with thrombus . Chambers/Structures Left Atrium LA Volume: 83.62 ml LA Area: 26.92 cm^2 LA Vol. Index: 36 ml/m^2 Left Ventricle LVIDd: 5.42 cm LV Septum Diastolic: 0.7 cm LV PW Diastolic: 0.99 cm LVEDV Bell's:82.66 ml LVESV Bell's:33.31 ml LVEF Bell's: 59.7 % LVEDVI: 36 ml/m^2 LVESVI: 14 ml/m^2 LVOT Diameter: 2.14 cm Right Atrium RA Vol. (Sngl Plane): 51.06 ml Right Ventricle RV Diast Dim.: 3.21 cm TAPSE: 1.45 cm Aorta Ao Root S of Betsy.: 3.48 cm Doppler/Quantitative Measurements LVOT Peak Velocity: 0.99 m/s Peak Gradient: 3.92 mmHg Mean Velocity: 0.62 m/s Mean Gradient: 1.88 mmHg LVOT Diameter: 2.14 cm LVOT VTI: 17.72 cm LVOT Area: 3.6 cm^2 LVOT SV:63.7 ml LVOT CO: 6.5 l/min LVOT CI: 2.8 l/min/m^2 Performing Organization Address City/State/Zipcode Phone Number [facility] without IV contrast (01/12/2019 11:23 AM CDT)Only the most recent of2 resultswithin the time period is included. Specimen Narrative Performed At FINAL REPORT [facility] CT of the Chest dated 01/12/2019 COMPARISON: November 22, 2018 CLINICAL INFORMATION: Renal cell cancer, staging Comment:Axial images of the chest were obtained from thoracic inlet to the upper abdomen without intravenous contrast. This exam was performed according to our departmental dose-optimization program, which includes automated exposure control, adjustment of the mA and/or kV according to patient size and/or use of interactive reconstruction technique. Heart is normal in size. Atherosclerotic calcification is seen in the thoracic aorta and coronary arteries. Great vessels are unremarkable. No adenopathy in the mediastinum or perihilar region. Trachea and mainstem bronchi are patent. Dependent atelectasis is seen in both lungs worse in the left lower lobe. The rest of the lungs are clear.No nodular, mass lesion or airspace disease is noted.No interstitial disease or bronchiectasis is present. No pleural effusion or pleural based mass is seen. Visualized upper abdomen demonstrates a 4.9 x 6.1 cm mass in the mid upper pole right kidney. Impression: 1. Right renal mass. 2. Dependent atelectasis in both lungs. Signed: Lurdes Fernandes MD Report Verified Date/Time:01/12/2019 13:03:39 Reading Location: [facility] B1 C013Y CT Body Reading Room Procedure Note Interface, External Ris In - 01/12/2019 1:05 PM CDT FINAL REPORT CT of the Chest dated 01/12/2019 COMPARISON: November 22, 2018 CLINICAL INFORMATION: Renal cell cancer, staging Comment: Axial images of the chest were obtained from thoracic inlet to the upper abdomen without intravenous contrast. This exam was performed according to our departmental dose-optimization program, which includes automated exposure control, adjustment of the mA and/or kV according to patient size and/or use of interactive reconstruction technique. Heart is normal in size. Atherosclerotic calcification is seen in the thoracic aorta and coronary arteries. Great vessels are unremarkable. No adenopathy in the mediastinum or perihilar region. Trachea and mainstem bronchi are patent. Dependent atelectasis is seen in both lungs worse in the left lower lobe. The rest of the lungs are clear. No nodular, mass lesion or airspace disease is noted. No interstitial disease or bronchiectasis is present. No pleural effusion or pleural based mass is seen. Visualized upper abdomen demonstrates a 4.9 x 6.1 cm mass in the mid upper pole right kidney. Impression: 1. Right renal mass. 2. Dependent atelectasis in both lungs. Signed: Lurdes Fernandes MD Report Verified Date/Time: 01/12/2019 13:03:39 Reading Location: [facility] B1 C013Y CT Body Reading Room Performing Organization Address City/State/Zipcode Phone Number [facility] US renal complete (01/11/2019 9:16 AM CDT)Only the most recent of2 resultswithin the time period is included. Specimen Narrative Performed At FINAL REPORT [facility] Renal ultrasound. Clinical History: KATHLEEN. Comparison Study: November 13, 2018. Findings: The right kidney measures 10.2 x 5.8 x 4.4 cm and left kidney measures 11.4 x 4.4 x 4.5 cm. A 5.2 x 4.7 x 4.8 cm mass is seen in the right kidney, recently biopsied. There is no evidence of hydronephrosis or nephrolithiasis on either side. The echogenicity is normal bilaterally. The cortical thickness on the right side is 1.1 cm and on the left side is 1.2 cm. Color flow is documented to both kidneys. The bladder is partially filled with urine. Impression: Right renal mass, previously biopsied. No hydronephrosis. Signed: Cedric Ferro MD Report Verified Date/Time:01/11/2019 10:50:26 Reading Location: [address] Ortho Consult Reading Room Procedure Note Interface, External Ris In - 01/11/2019 10:52 AM CDT FINAL REPORT Renal ultrasound. Clinical History: KATHLEEN. Comparison Study: November 13, 2018. Findings: The right kidney measures 10.2 x 5.8 x 4.4 cm and left kidney measures 11.4 x 4.4 x 4.5 cm. A 5.2 x 4.7 x 4.8 cm mass is seen in the right kidney, recently biopsied. There is no evidence of hydronephrosis or nephrolithiasis on either side. The echogenicity is normal bilaterally. The cortical thickness on the right side is 1.1 cm and on the left side is 1.2 cm. Color flow is documented to both kidneys. The bladder is partially filled with urine. Impression: Right renal mass, previously biopsied. No hydronephrosis. Signed: Cedric Ferro MD Report Verified Date/Time: 01/11/2019 10:50:26 Reading Location: [address] Ortho Consult Reading Room Performing Organization Address City/State/Zipcode Phone Number [facility] TRANSFUSION SERVICE REPORT - SCAN (01/10/2019 6:00 PM CDT)Only the most recent of3 resultswithin the time period is included. Narrative Performed At MRA abdomen without & with IV contrast (01/10/2019 5:07 PM CDT) Specimen Narrative Performed At FINAL REPORT [facility] MRA of the abdominal aorta and renal arteries, January 10 2019 INDICATION: This is a 73 years old male, recent CT scan showed abnormal mass in the right kidney suggestive of renal cell carcinoma, presents for assessment, concern for involvement of the renal vein and IVC. This study is performed in an attempt to avoid an invasive procedure and potentially nephrotoxic contrast agent. TECHNIQUE: Farzaneh 3 Natasha INGENIA MRI scanner. Limited images were performed for planning purposes. A non-ECG gated, gadolinium enhanced 3-D MRA and 3-D phase contrast MRA were performed.Multi-planar reconstruction were performed using an independent workstation. Post T1 images were also obtained. Please refer to the contrast sheet scanned in the EPIC system for the amount and route of contrast given. Patient has limited breath-holding capability. FINDINGS: THIS STUDY IS NOT OPTIMISED IN THE ASSESSMENT OF EXTRAVASCULAR STRUCTURES. See prior CT scan for full details. In the available images, no gross abnormality is identified in the liver and the spleen. In the SSFP axial images, for example, at series 5, a 9 mm high signal intensity is identified at image 17 of the inferior aspect of the right hepatic lobe, as well as a 8mm high signal intensity is seen at image 33 of the posterior aspect of the right hepatic lobe. This is incompletely characterize in this dedicated about examination. Correlate with recent CT scan. The spleen, adrenal glands, and pancreas appears grossly unremarkable. The left kidney has no acute pathology identified. No hydronephrosis or perirenal fluid collection is seen. Small cysts with high signal intensities are seen in the left kidney,already been described in prior CT examination. Again tissue characterisation is limited. A large mass is identified in the upper outer aspect of the right kidney, that measure at least 5.0 x 5.0 cm in size, representing the abnormal mass identified in the CT scan. Assessment of the bowel, soft tissue, and musculoskeletal structure is limited. In the available images, no obvious bowel dilation is seen. No free air free fluid seen in the image field of view. Left and right atrial prominence is identified in the available images. The abdominal aorta is normal in course and calibre. No ectasia or aneurysmal dilation is seen. Minimal atherosclerosis is seen at the level of the takeoff of the SMA. No acute aortic pathology is identified no dissection or contained rupture is seen. Quantitative dimensions of the abdominal aorta are as follows: 2.3 cm at the mesenteric level; 2.2 cm at the renal level; and 2.2 cm at the aortic bifurcation. The common iliac, and the visualised external iliac arteries, bilaterally, are widely patent. The coeliac axis, SMA, DARRION are widely patent. Single left and right renal arteries are seen that are widely patent. The portal vein, SMV, splenic vein are patent with no venous thrombus identified. 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 It is difficult to comment upon if the tumour / thrombus has also extend to the right atrium. Correlate with echocardiography. The tumour / thrombus in the IVC is nonocclusive. CONCLUSIONS: 1.Unremarkable abdominal aorta. Mild atherosclerosis is seen at the mesenteric level. No ectasia or aneurysmal dilation is seen. Quantitative dimensions of the abdominal aorta are as described above. 2. Widely patent mesenteric and renal arteries. 3. Patient is known to have a mass in the right kidney. This study is not optimised in the assessment of extravascular structures. Patient already had complete CT scan performed. Refer to formal dictation by Train Engineer Radiologist for details. 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 Whether the tumour / thrombus extending to the heart cannot be commented upon. This should be easily seen by echocardiography. These findings are better seen at the gradient echo images, series A 5 in the PACS - please see arrows in PACS for details (patient has limited breath holding and motion artefacts is identified in the MRA series). Signed: Yoshi Leger MD Report Verified Date/Time:01/11/2019 08:43:33 Reading Location: [place] [address] Cardiology MRI Procedure Note Interface, External Ris In - 01/11/2019 8:45 AM CDT FINAL REPORT MRA of the abdominal aorta and renal arteries, January 10 2019 INDICATION: This is a 73 years old male, recent CT scan showed abnormal mass in the right kidney suggestive of renal cell carcinoma, presents for assessment, concern for involvement of the renal vein and IVC. This study is performed in an attempt to avoid an invasive procedure and potentially nephrotoxic contrast agent. TECHNIQUE: Farzaneh 3 Natasha INGENIA MRI scanner. Limited images were performed for planning purposes. A non-ECG gated, gadolinium enhanced 3-D MRA and 3-D phase contrast MRA were performed. Multi-planar reconstruction were performed using an independent workstation. Post T1 images were also obtained. Please refer to the contrast sheet scanned in the EPIC system for the amount and route of contrast given. Patient has limited breath-holding capability. FINDINGS: THIS STUDY IS NOT OPTIMISED IN THE ASSESSMENT OF EXTRAVASCULAR STRUCTURES. See prior CT scan for full details. In the available images, no gross abnormality is identified in the liver and the spleen. In the SSFP axial images, for example, at series 5, a 9 mm high signal intensity is identified at image 17 of the inferior aspect of the right hepatic lobe, as well as a 8mm high signal intensity is seen at image 33 of the posterior aspect of the right hepatic lobe. This is incompletely characterize in this dedicated about examination. Correlate with recent CT scan. The spleen, adrenal glands, and pancreas appears grossly unremarkable. The left kidney has no acute pathology identified. No hydronephrosis or perirenal fluid collection is seen. Small cysts with high signal intensities are seen in the left kidney, already been described in prior CT examination. Again tissue characterisation is limited. A large mass is identified in the upper outer aspect of the right kidney, that measure at least 5.0 x 5.0 cm in size, representing the abnormal mass identified in the CT scan. Assessment of the bowel, soft tissue, and musculoskeletal structure is limited. In the available images, no obvious bowel dilation is seen. No free air free fluid seen in the image field of view. Left and right atrial prominence is identified in the available images. The abdominal aorta is normal in course and calibre. No ectasia or aneurysmal dilation is seen. Minimal atherosclerosis is seen at the level of the takeoff of the SMA. No acute aortic pathology is identified no dissection or contained rupture is seen. Quantitative dimensions of the abdominal aorta are as follows: 2.3 cm at the mesenteric level; 2.2 cm at the renal level; and 2.2 cm at the aortic bifurcation. The common iliac, and the visualised external iliac arteries, bilaterally, are widely patent. The coeliac axis, SMA, DARRION are widely patent. Single left and right renal arteries are seen that are widely patent. The portal vein, SMV, splenic vein are patent with no venous thrombus identified. The IVC (from the level of the aortic bifurcation extending to the level before the entrance of the right renal vein into the IVC) is unremarkable with no venous thrombus identified). 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 It is difficult to comment upon if the tumour / thrombus has also extend to the right atrium. Correlate with echocardiography. The tumour / thrombus in the IVC is nonocclusive. CONCLUSIONS: 1. Unremarkable abdominal aorta. Mild atherosclerosis is seen at the mesenteric level. No ectasia or aneurysmal dilation is seen. Quantitative dimensions of the abdominal aorta are as described above. 2. Widely patent mesenteric and renal arteries. 3. Patient is known to have a mass in the right kidney. This study is not optimised in the assessment of extravascular structures. Patient already had complete CT scan performed. Refer to formal dictation by Train Engineer Radiologist for details. 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 Whether the tumour / thrombus extending to the heart cannot be commented upon. This should be easily seen by echocardiography. These findings are better seen at the gradient echo images, series A 5 in the PACS - please see arrows in PACS for details (patient has limited breath holding and motion artefacts is identified in the MRA series). Signed: Yoshi Leger MD Report Verified Date/Time: 01/11/2019 08:43:33 Reading Location: [place] [address] Cardiology MRI Performing Organization Address City/State/Zipcode Phone Number [facility] RIS Prepare Leuko-Red RBC (01/09/2019 11:54 PM CDT) CROSSMATCH COMPATIBLE SAFETRACE TX Unit ABO O Pos SAFETRACE TX UNIT NUMBER [id number] SAFETRACE TX Status TX_TIMEINCHART SAFETRACE TX Blood Bank Product RED BLOOD CELLS SAFETRACE TX PRODUCT CODE [id number] SAFETRACE TX CROSSMATCH COMPATIBLE SAFETRACE TX Unit ABO O Pos SAFETRACE TX UNIT NUMBER [id number] SAFETRACE TX Status TX_TIMEINCHART SAFETRACE TX Blood Bank Product RED BLOOD CELLS SAFETRACE TX PRODUCT CODE [id number] SAFETRACE TX Specimen Other Performing Organization Address City/[facility] Phone Number SAFETRACE TX Potassium (01/09/2019 9:17 AM CDT)Only the most recent of3 resultswithin the time period is included. Potassium 5.5 (H)Comment: Specimen 3.5 - 5.1 meq/L [facility] slightly hemolyzed [facility] Specimen Blood Performing Organization Address [place]/[facility] Phone Number [address] [address] [place] Comprehensive metabolic panel (01/09/2019 4:49 AM CDT)Only the most recent of9 resultswithin the time period is included. Protein, Total 7.3 6.0 - 8.3 gm/dL [facility] Albumin 3.8 3.5 - 5.0 g/dL [facility] Alkaline Phosphatase 91 40 - 150 U/L [facility] Total Bilirubin 0.5 0.2 - 1.2 mg/dL [facility] Sodium 139 136 - 145 meq/L [facility] Potassium 5.4 (H) 3.5 - 5.1 meq/L [facility] Chloride 110 (H) 98 - 107 meq/L [facility] CO2 20 (L) 22 - 29 meq/L [facility] BUN 45 (H) 7 - 21 mg/dL [facility] Creatinine 2.45 (H) 0.57 - 1.25 mg/dL [facility] Glucose 177 (H) 70 - 105 mg/dL [facility] Calcium 9.5 8.4 - 10.2 mg/dL [facility] AST 11 5 - 34 U/L [facility] ALT 9 6 - 55 U/L [facility] EGFR 26Comment: ESTIMATED GFR mL/min/1.73 sq m [facility] IS NOT ACCURATE [facility] CREATININE CLEARANCE IN PREDICTING GLOMERULAR FILTRATION RATE. ESTIMATED GFR IS NOT APPLICABLE FOR DIALYSIS PATIENTS. Specimen Blood Performing Organization Address City/State/Zipcode Phone Number [facility] [address] [place] [address] CENTER Transfuse Leuko-Red RBC (01/09/2019 2:04 AM CDT)Only the most recent of2 resultswithin the time period is included.Urinalysis w/Microscopic (01/09/2019 12:28 AM CDT)Only the most recent of2 resultswithin the time period is included. Color, UA Yellow [facility] Clarity, UA Cloudy [facility] Specific [place], UA 1.014 1.001 - 1.035 [facility] pH, UA 7.5 5.0 - 8.0 [facility] Protein, UA 50 mg/dL (A) Negative [facility] Glucose, UA Negative Negative [facility] Ketones, UA Negative Negative [facility] Bilirubin, UA Negative Negative [facility] Blood, UA Small (A) Negative [facility] Nitrite, UA Negative Negative [facility] Leukocytes, UA Large (A) Negative [facility] Urobilinogen, UA 0.2 0.2 - 1.0 mg/dL [facility] RBC, UA 71 /HPF [facility] WBC, UA 1,129 /HPF [facility] Bacteria, UA Many [facility] Mucus Rare [facility] Squam Epithel, UA 1 /HPF [facility] Hyaline Casts, UA 19 /LPF [facility] Specimen Source Urine, Voided [facility] Specimen Urine Performing Organization Address City/State/Zipcode Phone Number [facility] [address] [place], [place] [id number] [place] Hemoglobin and hematocrit (01/08/2019 7:33 PM CDT)Only the most recent of7 resultswithin the time period is included. Hemoglobin 8.0 (L) 13.7 - 17.5 GM/DL [facility] Hematocrit 26.2 (L) 40.1 - 51.0 % [facility] Specimen Blood Performing Organization Address City/[facility]/Zipcode Phone Number [address] [address] [place] XR chest 1 view portable / bedside (01/08/2019 6:56 PM CDT)Only the most recent of4 resultswithin the time period is included. Specimen Narrative Performed At FINAL REPORT [facility] Chest, 1 view. History: Edema. Comparison: 11/21/1989. Impression: Please note that the costophrenic angles are excluded bilaterally limiting evaluation. The trachea is midline. There has been interval reduction in opacities present within the left lower lung zone suggesting a resolving infectious/inflammatory process. There is no evidence for new large focal consolidation, pneumothorax, or significant pleural effusion. The cardiomediastinal silhouette is stable in appearance. No acute osseous abnormalities identified. Signed: Brandon Devries MD Report Verified Date/Time:01/08/2019 23:33:47 Reading Location: [facility] Consult Reading Room Procedure Note Interface, External Ris In - 01/08/2019 11:36 PM CDT FINAL REPORT Chest, 1 view. History: Edema. Comparison: 11/21/1989. Impression: Please note that the costophrenic angles are excluded bilaterally limiting evaluation. The trachea is midline. There has been interval reduction in opacities present within the left lower lung zone suggesting a resolving infectious/inflammatory process. There is no evidence for new large focal consolidation, pneumothorax, or significant pleural effusion. The cardiomediastinal silhouette is stable in appearance. No acute osseous abnormalities identified. Signed: Brandon Devries MD Report Verified Date/Time: 01/08/2019 23:33:47 Reading Location: [address] Consult Reading Room Performing Organization Address City/[facility] Cent[facility]ode Phone Number RIS Sodium, random urine (01/08/2019 5:41 PM CDT)Only the most recent of2 resultswithin the time period is included. Sodium Urine 90 meq/L [facility] Specimen Urine Narrative Performed At Reference Range: No Normals [facility] Performing Organization Address [place]/[facility] CenterTargeted Technologiesms Phone Number [address] [address] CENTER Protein, random urine (01/08/2019 5:41 PM CDT)Only the most recent of2 resultswithin the time period is included. Protein, Urine 19 (H) 0 - 14 mg/dL [facility] Specimen Urine Performing Organization Address [place]/[facility] Phone Number [address] [address] [phone] CENTER Osmolality, urine (01/08/2019 5:41 PM CDT)Only the most recent of2 resultswithin the time period is included. Osmolality, Ur 686Comment: Performed at 40-1,400 mOsm/kg [facility] [place] Specimen Urine Performing Organization Address City/[facility] Center[facility] Phone Number [address] [address] [place] Creatinine, random urine (01/08/2019 5:41 PM CDT)Only the most recent of2 resultswithin the time period is included. Creatinine, Ur 89.1 mg/dL [facility] Specimen Urine Narrative Performed At Reference Range: No Normals [facility] Performing Organization Address [place]/[facility] Phone Number [address] [phone] [place] Eosinophil smear (01/08/2019 5:41 PM CDT) Eosinophil Smear No EOS seen No EOS seen [facility] Specimen Urine Performing Organization Address [place]/[facility] Phone Number [address] [phone] [place] Uric acid (01/08/2019 3:33 PM CDT) Uric Acid 8.3 (H) 2.6 - 7.2 mg/dL [facility] Specimen Blood Performing Organization Address [place]/[facility] Phone Number [address] [phone] [place] ECG 12 lead (01/08/2019 10:29 AM CDT)Only the most recent of2 resultswithin the time period is included. Specimen Narrative Performed At Ventricular Rate 69 BPM GE MUSE Atrial Rate 69 BPM QRS Duration 100 ms Q-T Interval 438 ms QTC Calculation(Bazett) 469 ms P [place] 64 degrees R [place] -18 degrees T [place] 79 degrees Sinus rhythm with 1st degree A-V block Low voltage QRS Nonspecific T wave abnormality Prolonged QT Abnormal ECG When compared with ECG of -OCT-2018 15:26, Vent. rate has decreased BY34 BPM QRS duration has decreased Criteria for Inferior infarct are no longer Present Nonspecific T wave abnormality no longer evident in Anterior leads Confirmed by MD Salud, Glenda ([id number]) on 01/08/2019 1:30:14 PM Procedure Note Interface, External Ris In - 01/08/2019 1:30 PM CDT Ventricular Rate 69 BPM Atrial Rate 69 BPM QRS Duration 100 ms Q-T Interval 438 ms QTC Calculation(Bazett) 469 ms P [place] 64 degrees R [place] -18 degrees T [place] 79 degrees Sinus rhythm with 1st degree A-V block Low voltage QRS Nonspecific T wave abnormality Prolonged QT Abnormal ECG When compared with ECG of 14-NOV-2018 15:26, Vent. rate has decreased BY 34 BPM QRS duration has decreased Criteria for Inferior infarct are no longer Present Nonspecific T wave abnormality no longer evident in Anterior leads Confirmed by MD Salud, [facility] ([id number]) on 01/08/2019 1:30:14 PM Performing Organization Address City/State/Zipcode Phone Number MUSE Type and screen, automated (01/08/2019 9:04 AM CDT)Only the most recent of2 resultswithin the time period is included. ABO/RH AUTOMATED (BEAKER) O POSITIVE [facility] Ab Scrn NEGATIVE [facility] Specimen Blood Performing Organization Address [place]/[facility] Centercode Phone Number [address] [address] aPTT (01/08/2019 9:04 AM CDT) PTT 44.8 (H) 22.5 - 36.0 seconds [facility] Specimen Blood Performing Organization Address [place]/[facility] Centercode Phone Number [address] [address] [phone] CENTER EKG-SCANNED (12/04/2018 2:23 PM FOREST SCIENCE PROFESSOR) Narrative Performed At US renal biopsy (11/28/2018 5:31 PM FOREST SCIENCE PROFESSOR) Specimen Narrative Performed At FINAL REPORT [facility] Ultrasound guided fine-needle aspiration and core biopsy dated 11/28/2018 Procedure: Fine-needle aspiration and core biopsy of the right renal mass Pre-procedure diagnosis: Right renal mass Post-procedure diagnosis: Right renal mass Radiologist: Lurdes Fernandes MD Nursing Aide: None Sedation: Moderate sedation was administered. 1.5 mg of Versed and 75 mcg fentanyl IV was used for moderate sedation monitored under my direction. Total intraservice time of the sedation was 50 minutes. The patient's vital signs were monitored throughout the procedure and recorded in the patient's medical record by the nurse. Anesthesia: 1% Xylocaine local anesthesia. Technique/Specimen removed: After obtaining informed consent, ultrasound guided fine-needle aspiration of the right renal mass was performed under usual sterile technique. Using 2-22-gauge and 1-23-gauge Chiba needles, 3 passes were obtained. Pathologist requested additional material. Subsequent core biopsy was performed with a 20-gauge core and with 3 passes. Complication: None Estimated Blood Loss: None Graft/Implants: None Impression: Successful ultrasound-guided fine-needle aspiration and core biopsy of the right renal mass. Signed: Lurdes Fernandes MD Report Verified Date/Time:11/28/2018 17:54:55 Reading Location: [address] Ultrasound Reading Room Procedure Note Interface, External Ris In - 11/28/2018 5:57 PM FOREST SCIENCE PROFESSOR FINAL REPORT Ultrasound guided fine-needle aspiration and core biopsy dated 11/28/2018 Procedure: Fine-needle aspiration and core biopsy of the right renal mass Pre-procedure diagnosis: Right renal mass Post-procedure diagnosis: Right renal mass Radiologist: Lurdes Fernandes MD Nursing Aide: None Sedation: Moderate sedation was administered. 1.5 mg of Versed and 75 mcg fentanyl IV was used for moderate sedation monitored under my direction. Total intraservice time of the sedation was 50 minutes. The patient's vital signs were monitored throughout the procedure and recorded in the patient's medical record by the nurse. Anesthesia: 1% Xylocaine local anesthesia. Technique/Specimen removed: After obtaining informed consent, ultrasound guided fine-needle aspiration of the right renal mass was performed under usual sterile technique. Using 2-22-gauge and 1-23-gauge Chiba needles, 3 passes were obtained. Pathologist requested additional material. Subsequent core biopsy was performed with a 20-gauge core and with 3 passes. Complication: None Estimated Blood Loss: None Graft/Implants: None Impression: Successful ultrasound-guided fine-needle aspiration and core biopsy of the right renal mass. Signed: Lurdes Fernandes MD Report Verified Date/Time: 11/28/2018 17:54:55 Reading Location: [address] Ultrasound Reading Room Performing Organization Address City/State/Zipcode Phone Number [facility] US Aspiration (11/28/2018 5:31 PM FOREST SCIENCE PROFESSOR) Specimen Narrative Performed At FINAL REPORT [facility] Ultrasound guided fine-needle aspiration and core biopsy dated 11/28/2018 Procedure: Fine-needle aspiration and core biopsy of the right renal mass Pre-procedure diagnosis: Right renal mass Post-procedure diagnosis: Right renal mass Radiologist: Lurdes Fernandes MD Nursing Aide: None Sedation: Moderate sedation was administered. 1.5 mg of Versed and 75 mcg fentanyl IV was used for moderate sedation monitored under my direction. Total intraservice time of the sedation was 50 minutes. The patient's vital signs were monitored throughout the procedure and recorded in the patient's medical record by the nurse. Anesthesia: 1% Xylocaine local anesthesia. Technique/Specimen removed: After obtaining informed consent, ultrasound guided fine-needle aspiration of the right renal mass was performed under usual sterile technique. Using 2-22-gauge and 1-23-gauge Chiba needles, 3 passes were obtained. Pathologist requested additional material. Subsequent core biopsy was performed with a 20-gauge core and with 3 passes. Complication: None Estimated Blood Loss: None Graft/Implants: None Impression: Successful ultrasound-guided fine-needle aspiration and core biopsy of the right renal mass. Signed: Lurdes Fernandes MD Report Verified Date/Time:11/28/2018 17:54:55 Reading Location: [facility] [id number] Ultrasound Reading Room Procedure Note Interface, External [facility] In - 11/28/2018 5:57 PM FOREST SCIENCE PROFESSOR FINAL REPORT Ultrasound guided fine-needle aspiration and core biopsy dated 11/28/2018 Procedure: Fine-needle aspiration and core biopsy of the right renal mass Pre-procedure diagnosis: Right renal mass Post-procedure diagnosis: Right renal mass Radiologist: Lurdes Fernandes MD Nursing Aide: None Sedation: Moderate sedation was administered. 1.5 mg of Versed and 75 mcg fentanyl IV was used for moderate sedation monitored under my direction. Total intraservice time of the sedation was 50 minutes. The patient's vital signs were monitored throughout the procedure and recorded in the patient's medical record by the nurse. Anesthesia: 1% Xylocaine local anesthesia. Technique/Specimen removed: After obtaining informed consent, ultrasound guided fine-needle aspiration of the right renal mass was performed under usual sterile technique. Using 2-22-gauge and 1-23-gauge Chiba needles, 3 passes were obtained. Pathologist requested additional material. Subsequent core biopsy was performed with a 20-gauge core and with 3 passes. Complication: None Estimated Blood Loss: None Graft/Implants: None Impression: Successful ultrasound-guided fine-needle aspiration and core biopsy of the right renal mass. Signed: Lurdes Fernandes MD Report Verified Date/Time: 11/28/2018 17:54:55 Reading Location: [place] [id number] Ultrasound Reading Room Performing Organization Address City/State/Zipcode Phone Number [facility] RIS Cytology (11/28/2018 4:48 PM FOREST SCIENCE PROFESSOR) Case Report Medical Cytology Report Case: [id number] [facility] Authorizing Provider:Gianna Peter MDCollected: 11/28/2018 1648 [facility] MEDICAL Ordering Location: [address] Received: 11/28/2018 1658 CENTER Service Pathologist: Chelsea Curran MD Specimen:Kidney, Right DIAGNOSIS RIGHT KIDNEY MASS, FNA AND CORE BIOPSY BY RADIOLOGIST (FILOMENA) ( DIRECT SMEARS AND CELL BLOCK OF ASPIRATE): [facility] - FEW ATYPICAL CELLS, COMPATIBLE WITH RENAL CELL CARCINOMA (see comment) [facility] MEDICAL Signing Pathologist Direct Phone Line: [phone] CENTER COMMENT The smears show few scattered [facility] atypical cells with foamy [facility] MEDICAL cytoplasm and a rare sukhwinder CENTER associated with vascular structures. The core biopsy contains a small cluster of vacuolated cells and a cluster of cells suggestive of necrotic tumor cells. PAX-8 and CAM 5.2, stains the vacuolated cells. However, cells suspected to be necrotic tumor cells are not represented in immunohistochemical studies. Based on morphology and PAX-8 positivity, the diagnosis is compatible with renal cell carcinoma. Clinical and radiologic correlation is recommended. CPT Code(s) 73493, 67027, 27371 x 2; [facility] 04547; 72752 [facility] CLINICAL DATA 6 cm right kidney mass [facility] SPECIMEN SOURCE RIGHT KIDNEY MASS FNA AND CORE [facility] BIOPSY [facility] GROSS DESCRIPTION Prepared 6 direct smear slides and cell block(A3) using collodion bag from material collected in RPMI [facility] Core biopsy collected in formalin contained two white/red fragments measuring 0.8 cm each; one 0.4 cm red fragment; one mostly white 0.9 cm fragment , and three red ragged fragments measuring 0.2 cm each, submitted entirely in A2. [facility] Collected: [id number] [place] Received: [id number] INTRAPROCEDURAL ADEQUACY VERY FEW CELLS SUSPICIOUS FOR [facility] RENAL CELL CARCINOMA (5:17PM, [facility] 11/28/2018, ) CENTER SPECIAL STUDIES The interpretation of this case included the use of immunohistochemistry or special stains. [facility] PAX-8 and CAM5.2 [facility] Immunohistochemistry technical testing was performed at [facility] Pathology Laboratory where it was developed and its performance characteristics were determined. It has not be CENTER en cleared or approved by the U.S. Food and Drug Administration. The FDA has determined that such clearance or approval is not necessary. The test is used for clinical purposes. It should not be regarde d as investigational or for research. This laboratory is certified under the Clinical Laboratory Improvement Amendments of 1988 (CLIA-88) as qualified to perform high complexity clinical laboratory testing. Gross assessment was [facility] performed at [facility], [address] [place] [id number], Technical component was [facility] performed at [facility], [address] [place] [address], [facility], [address] [place] [address], Specimen Fine Needle Aspirate Narrative Performed At Performing Organization Address City/State/Zipcode Phone Number [facility] [address], [place] [phone] CENTER PT/aPTT (11/26/2018 11:10 AM FOREST SCIENCE PROFESSOR) Protime 16.7 (H) 11.7 - 14.7 seconds [facility] INR 1.3 <=5.9 [facility] PTT 48.5 (H) 22.5 - 36.0 seconds [facility] Specimen Blood Narrative Performed At RECOMMENDED COUMADIN/WARFARIN INR THERAPY [facility] RANGES STANDARD DOSE: 2.0 - 3.0 Includes: PROPHYLAXIS for venous thrombosis, systemic embolization; TREATMENT for venous thrombosis and/or pulmonary embolus. HIGH RISK: Target INR is 2.5-3.5 for patients with mechanical heart valves. Performing Organization Address City/State/Zipcode Phone Number [facility] [address], [place] [phone] [place] CBC (Hemogram only) (11/26/2018 11:10 AM FOREST SCIENCE PROFESSOR)Only the most recent of4 resultswithin the time period is included. WBC 7.1 3.5 - 10.5 K/L [facility] RBC 3.36 (L) 4.63 - 6.08 M/L [facility] Hemoglobin 8.5 (L) 13.7 - 17.5 GM/DL [facility] Hematocrit 28.4 (L) 40.1 - 51.0 % [facility] MCV 84.5 79.0 - 92.2 fL [facility] MCH 25.3 (L) 25.7 - 32.2 pg [facility] MCHC 29.9 (L) 32.3 - 36.5 GM/DL [facility] RDW 21.6 (H) 11.6 - 14.4 % [facility] Platelets 214 150 - 450 K/CU MM [facility] MPV 9.6 9.4 - 12.4 fL [facility] nRBC 0 0 - 0 /100 WBC [facility] Specimen Blood Performing Organization Address City/State/Zipcode Phone Number [facility] [address] [place] [address] [phone] CENTER NM renal scan (11/25/2018 11:15 AM FOREST SCIENCE PROFESSOR) Specimen Narrative Performed At FINAL REPORT [facility] PROCEDURE: Functional RENAL SCAN, flow and function CPT CODE:74730 INDICATION:R rcca, eval differential renal function, renal mass, KATHLEEN, azotemia PROTOCOL:10.5 mCi of Tc-99m MAG3 was injected intravenously. Renal flow images were obtained in the posterior projection. Subsequent serial posterior images were obtained over approximately 40 minutes. FINDINGS:There is prompt and symmetric perfusion of the kidneys. Initial renal activity is divided 57.88% to the left kidney and 42.12% to the right kidney. Subsequent images show mildly irregular distrubution of tracer by the kidneys and delayed tracer clearance of both kidneys, but predominantly in the upper pole of the right kidney. Urine appears appropriately in the urinary bladder. IMPRESSION: Abnormal renal functional scan. 1.Renal function of the left kidney is 57.88% and for the right kidney is 42.12%. 2.Decreased clearance of tracer from both kidneys compatible with decreased renal function. Signed: Christian Ambrose MD Report Verified Date/Time:11/25/2018 11:35:45 Reading Location: [address] Reading Room Procedure Note Interface, External Ris In - 11/25/2018 11:37 AM FOREST SCIENCE PROFESSOR FINAL REPORT PROCEDURE: Functional RENAL SCAN, flow and function CPT CODE: 10682 INDICATION: R rcca, eval differential renal function, renal mass, KATHLEEN, azotemia PROTOCOL: 10.5 mCi of Tc-99m MAG3 was injected intravenously. Renal flow images were obtained in the posterior projection. Subsequent serial posterior images were obtained over approximately 40 minutes. FINDINGS: There is prompt and symmetric perfusion of the kidneys. Initial renal activity is divided 57.88% to the left kidney and 42.12% to the right kidney. Subsequent images show mildly irregular distrubution of tracer by the kidneys and delayed tracer clearance of both kidneys, but predominantly in the upper pole of the right kidney. Urine appears appropriately in the urinary bladder. IMPRESSION: Abnormal renal functional scan. 1.Renal function of the left kidney is 57.88% and for the right kidney is 42.12%. 2.Decreased clearance of tracer from both kidneys compatible with decreased renal function. Signed: Christian Ambrose MD Report Verified Date/Time: 11/25/2018 11:35:45 Reading Location: [address] [facility] Reading Room Performing Organization Address City/State/Zipcode Phone Number [place] lung scan (V/Q) (11/24/2018 10:48 AM FOREST SCIENCE PROFESSOR) Specimen Narrative Performed At FINAL REPORT [place] PROCEDURE: V/Q LUNG SCAN CPT CODE: 07647 INDICATION: Acute chest pain PROTOCOL: 10.7 mCi ofXe-133 gas was administered by inhalation. Rebreathing/washout images were obtained in the anterior and the posterior projections.4.28 mCi of Tc-99m MAA was then injected intravenously, and static perfusion images were obtained in multiple projections. FINDINGS: Ventilation: Initial tracer distribution is diffusely decreased in the left lung and mildly irregular in the right upper and mid lung kimball. Washout is mildly delayed in both lungs. Perfusion:Tracer distribution is nonsegmentally irregular in both lungs with decrease tracer uptake in the left lung predominantly in the lower lung kimball. IMPRESSION: 1. Low probability of acute pulmonary embolization. 2. Bilateral parenchymal abnormalities. Signed: Christian Ambrose MD Report Verified Date/Time:11/24/2018 12:25:50 Reading Location: [address] [facility] Reading Room Procedure Note Interface, External [facility]is In - 11/24/2018 2:18 PM FOREST SCIENCE PROFESSOR FINAL REPORT PROCEDURE: V/Q LUNG SCAN CPT CODE: 65450 INDICATION: Acute chest pain PROTOCOL: 10.7 mCi of Xe-133 gas was administered by inhalation. Rebreathing/washout images were obtained in the anterior and the posterior projections. 4.28 mCi of Tc-99m MAA was then injected intravenously, and static perfusion images were obtained in multiple projections. FINDINGS: Ventilation: Initial tracer distribution is diffusely decreased in the left lung and mildly irregular in the right upper and mid lung kimball. Washout is mildly delayed in both lungs. Perfusion: Tracer distribution is nonsegmentally irregular in both lungs with decrease tracer uptake in the left lung predominantly in the lower lung kimball. IMPRESSION: 1. Low probability of acute pulmonary embolization. 2. Bilateral parenchymal abnormalities. Signed: Christian Ambrose MD Report Verified Date/Time: 11/24/2018 12:25:50 Reading Location: [address] Reading Room Performing Organization Address City/State/Zipcode Phone Number [facility] Vancomycin level, trough (11/24/2018 5:39 AM FOREST SCIENCE PROFESSOR) Vancomycin Tr 17.7 10.0 - 20.0 ug/mL [facility] Specimen Blood Narrative Performed At Hold dose if trough >20 mcg/ml [facility] Performing Organization Address City/[facility] Phone Number [address] [phone] [place] MRSA screen (11/23/2018 8:21 PM FOREST SCIENCE PROFESSOR) Result No MRSA isolated [facility] Specimen Nasal Performing Organization Address [place]/[facility] Cent[facility]ode Phone Number [address] [address] [place] Lactic acid, venous, whole blood (11/23/2018 12:16 AM FOREST SCIENCE PROFESSOR)Only the most recent of2 resultswithin the time period is included. Lactate, Venous 2.3 (H) 0.5 - 2.2 mmol/L [facility] Specimen Blood Performing Organization Address City/[facility] Cent[facility]ode Phone Number [address] [address] [place] Blood Culture - Routine (Left Venipuncture) (11/23/2018 12:16 AM FOREST SCIENCE PROFESSOR)Only the most recent of2 resultswithin the time period is included. Result No growth in 5 days [facility] Specimen Blood Performing Organization Address City/State/Zipcode Phone Number [facility] [address] [place] [address] abdomen - renal mass/cyst evaluation (11/20/2018 9:54 AM FOREST SCIENCE PROFESSOR) Specimen Narrative Performed At FINAL REPORT [facility] ABDOMINAL CT DATED 11/20/2018 COMPARISON: June 16, 2012 CLINICAL INFORMATION:right renal mass TECHNIQUE:Axial images of the abdomen were obtained from diaphragm to the upper pelvis with and without intravenous contrast.The study was performed with renal protocol. This exam was performed according to our departmental dose-optimization program, which includes automated exposure control, adjustment of the mA and/or kV according to patient size and/or use of interactive reconstruction technique. COMMENT: Liver and spleen are normal in size without focal abnormality.Gallbladder is surgically absent. No biliary dilatation is noted. Pancreas and adrenals are unremarkable. Both kidneys are normal in size. A 5.2 x 6.6 x 5.3 cm mass is seen in the midpole right kidney. The mass is seen within the right Gerota's fascia and extending to the right renal pelvis. No renal vein thrombosis is present. A few small subcentimeter cysts are seen in the right kidney. Several cysts are seen in the left kidney with the largest measuring 1.4 cm. The small and large bowel are unremarkable. Appendix is normal in caliber. No adenopathy or ascites is present. IMPRESSION:Right renal mass consistent with renal cell carcinoma. Signed: Lurdes Fernandes MD Report Verified Date/Time:11/20/2018 15:11:56 Reading Location: [facility] B1 C013Y CT Body Reading Room Procedure Note Interface, External Ris In - 11/20/2018 3:14 PM FOREST SCIENCE PROFESSOR FINAL REPORT ABDOMINAL CT DATED 11/20/2018 COMPARISON: June 16, 2012 CLINICAL INFORMATION: right renal mass TECHNIQUE: Axial images of the abdomen were obtained from diaphragm to the upper pelvis with and without intravenous contrast. The study was performed with renal protocol. This exam was performed according to our departmental dose-optimization program, which includes automated exposure control, adjustment of the mA and/or kV according to patient size and/or use of interactive reconstruction technique. COMMENT: Liver and spleen are normal in size without focal abnormality. Gallbladder is surgically absent. No biliary dilatation is noted. Pancreas and adrenals are unremarkable. Both kidneys are normal in size. A 5.2 x 6.6 x 5.3 cm mass is seen in the midpole right kidney. The mass is seen within the right Gerota's fascia and extending to the right renal pelvis. No renal vein thrombosis is present. A few small subcentimeter cysts are seen in the right kidney. Several cysts are seen in the left kidney with the largest measuring 1.4 cm. The small and large bowel are unremarkable. Appendix is normal in caliber. No adenopathy or ascites is present. IMPRESSION: Right renal mass consistent with renal cell carcinoma. Signed: Lurdes Fernandes MD Report Verified Date/Time: 11/20/2018 15:11:56 Reading Location: [facility] C013Y CT Body Reading Room Performing Organization Address City/State/Zipcode Phone Number [facility] [employer] Celiac Disease Panel (11/20/2018 4:53 AM FOREST SCIENCE PROFESSOR) Scan Result [facility] Celiac Disease Profile Refer to Celiac [facility] Autover[employer] Disease [facility] results. Specimen Blood Narrative Performed At Performing Organization Address City/[facility] [place] [facility] Centercode Phone Number [place] [address] [facility] [id number] [facility] EzFlop - A First of Its Kind Flip Flop XR abdomen / KUB 1 view (11/19/2018 8:01 PM FOREST SCIENCE PROFESSOR)Only the most recent of3 resultswithin the time period is included. Specimen Narrative Performed At FINAL REPORT [facility] EXAMINATION: SUPINE ABDOMEN CLINICAL INDICATION:FEEDING TUBE PLACEMENT IMPRESSION: Tip of the feeding tube projects over the left upper abdomen in the region of the stomach. Signed: Myron Kenny MD Report Verified Date/Time:11/20/2018 00:47:19 Reading Location: [address] Reading Room Procedure Note Interface, External Ris In - 11/20/2018 12:49 AM FOREST SCIENCE PROFESSOR FINAL REPORT EXAMINATION: SUPINE ABDOMEN CLINICAL INDICATION: FEEDING TUBE PLACEMENT IMPRESSION: Tip of the feeding tube projects over the left upper abdomen in the region of the stomach. Signed: Myron Kenny MD Report Verified Date/Time: 11/20/2018 00:47:19 Reading Location: [address] Reading Room Performing Organization Address City/[facility] Centercode Phone Number RIS REPORT OF PROCEDURE - ENDOSCOPY URL (11/19/2018 6:54 PM FOREST SCIENCE PROFESSOR) Narrative Performed At Troponin I (11/14/2018 3:45 PM FOREST SCIENCE PROFESSOR)Only the most recent of2 resultswithin the time period is included. Troponin I <0.01 0.00 - 0.03 ng/mL [facility] Specimen Blood Narrative Performed At Troponin I (TnI) levels must be interpreted [facility] in the context of the presenting symptoms and the clinical findings. Elevated TnI levels indicate myocardial damage, but are not specific for ischemic heart disease. Elevated TnI levels are seen in patients with other cardiac conditions (including myocarditis and congestive heart failure), and slight TnI elevations occur in patients with other conditions, including sepsis, renal failure, acidosis, acute neurological disease, and persistent tachyarrhythmia. Performing Organization Address [place]/[facility] Centercode Phone Number [address] [address] CENTER Creatine Kinase (CK) (11/14/2018 3:45 PM FOREST SCIENCE PROFESSOR)Only the most recent of2 resultswithin the time period is included. Total CK 68 29 - 200 U/L [facility] Specimen Blood Performing Organization Address [place]/[facility] Centercode Phone Number [address] [address] CENTER REPORT OF PROCEDURE - ENDOSCOPY URL (11/13/2018 1:40 PM FOREST SCIENCE PROFESSOR) Narrative Performed At REPORT OF PROCEDURE - ENDOSCOPY URL (11/13/2018 1:10 PM FOREST SCIENCE PROFESSOR) Narrative Performed At TSH/Free T4 If Indicated (11/13/2018 5:10 AM FOREST SCIENCE PROFESSOR) TSH 2.50 0.35 - 4.94 uIU/mL [facility] Specimen Blood Performing Organization Address City/[facility]/Zipcode Phone Number [address] [address] [phone] [place] Osmolality, serum (11/13/2018 5:10 AM FOREST SCIENCE PROFESSOR) Osmolality Serum 292 275 - 295 mOsm/kg [facility] Specimen Blood Performing Organization Address [place]/[facility] Centercoms Phone Number [address] [address] [phone] [place] Hemoglobin A1c (11/13/2018 5:10 AM FOREST SCIENCE PROFESSOR) Hemoglobin A1C 6.5 (H) 4.3 - 6.1 % [facility] Specimen Blood Performing Organization Address [place]/[facility]com[facility] Phone Number [address] [address] [place] Urinalysis w/Microscopic + Reflex to Culture (11/12/2018 3:11 AM FOREST SCIENCE PROFESSOR) Color, UA Light Yellow [facility] Clarity, UA Clear [facility] Specific [place], UA 1.005 1.001 - 1.035 [facility] pH, UA 5.5 5.0 - 8.0 [facility] Protein, UA Negative Negative [facility] Glucose, UA Negative Negative [facility] Ketones, UA Negative Negative [facility] Bilirubin, UA Negative Negative [facility] Blood, UA Negative Negative [facility] Nitrite, UA Negative Negative [facility] Leukocytes, UA Small (A) Negative [facility] Urobilinogen, UA 0.2 0.2 - 1.0 mg/dL [facility] RBC, UA 1 /HPF [facility] WBC, UA 10 /HPF [facility] Squam Epithel, UA <1 /HPF [facility] Hyaline Casts, UA 1 /LPF [facility] Crystals, Urine Rare [facility] Amorphous Crystals Occasional [facility] Specimen Source [facility] Specimen Urine Performing Organization Address City/State/[facility] Phone Number [facility] [address] [place] [address] [phone] CENTER Urine culture (11/12/2018 3:11 AM FOREST SCIENCE PROFESSOR) Result PROTEUS MIRABILIS (A) [facility] Specimen Urine Narrative Performed At <10,000 col/mL skin nathanael [facility] Organism Antibiotic Method Susceptibility Proteus mirabilis Amikacin <=2: Susceptible Proteus mirabilis Ampicillin + Sulbactam 8: Susceptible Proteus mirabilis Aztreonam <=1: Susceptible Proteus mirabilis Cefepime <=1: Susceptible Proteus mirabilis Cefoxitin >=64: Resistant Proteus mirabilis Ceftazidime <=1: Susceptible Proteus mirabilis Ceftriaxone <=1: Susceptible Proteus mirabilis Ertapenem <=0.5: Susceptible Proteus mirabilis Gentamicin <=1: Susceptible Proteus mirabilis Levofloxacin >=8: Resistant Proteus mirabilis Meropenem 1: Susceptible Proteus mirabilis Nitrofurantoin 128: Resistant Proteus mirabilis Piperacillin + Tazobactam <=4: Susceptible Proteus mirabilis Tetracycline >=16: Resistant Proteus mirabilis Tobramycin <=1: Susceptible Proteus mirabilis Trimethoprim + Sulfamethoxazole >=320: Resistant Performing Organization Address City/State/Zipcode Phone Number [facility] [address] [place] [address] [phone] CENTER Iron, TIBC, % sat. (without ferritin) (11/12/2018 3:10 AM FOREST SCIENCE PROFESSOR) Iron 51.0 40.0 - 160.0 ug/dL [facility] TIBC 374 250 - 450 ug/dL [facility] Iron % Saturation 14 (L) 20 - 55 % [facility] Specimen Blood Performing Organization Address [place]/[facility] [place] [facility] Centercode Phone Number [address] [address] CENTER Reticulocyte count (11/12/2018 3:10 AM FOREST SCIENCE PROFESSOR) % Retic 2.8 (H) 0.5 - 1.8 % [facility] Specimen Blood Performing Organization Address [place] Phone Number [address] [address] CENTER Ferritin (11/12/2018 3:10 AM [employer]EST SCI[employer] PROFESSOR) Ferritin 40 5 - 275 ng/mL [facility] Specimen Blood Performing Organization Address [place] Phone Number [address] [address] [phone] CENTER after 01/29/2018 Insurance Payer Benefit Plan / Group Subscriber ID Type Phone Address MEDICARE MEDICARE A B xxxxxxxxxx Medicare MEDICAID MEDICAID [place] xxxxxxxxx Medicaid Advance Directives For more information, please contact:[address] [phone] Code Status Date Activated Date Inactivated Comments Full Code 01/19/2019 9:20 AM 01/19/2019 7:17 PM This code status was determined by: Patient Full Code 11/11/2018 10:21 PM 12/01/2018 8:42 PM This code status was determined by: Patient Full Code 12/23/2017 11:29 AM 12/23/2017 4:21 PM This code status was determined by: Patient Full Code 12/23/2017 6:38 AM 12/23/2017 11:29 AM This code status was determined by: Patient Code ONE 10/12/2013 6:40 AM 10/12/2013 5:48 PM All possible means of support including;cardiac massage, mechanical ventilation, and defibrillation will be used to support life.
--- OUTSIDE RECORDS SUMMARY | 2019-01-30 15:37 | XMS REPORT | Continuity of Care Document ---
:1945 Author Organization Interface Problems Problem Status Onset Classification Date Comments Source Date Reported DIVERTICULITIS Active 10/04/[address] DIVERTICULITIS Active 10/04/19 [facility] WITH BLEEDING/ KATHLEEN [address] [place] [address] DIVERTICULITIS Active 10/04/[address] Sepsis Active 01/16/20 Finding 01/22/[address] [facility] [facility] [place] Atrial flutter Active 04/06/20 Finding 01/22/2018 [facility] [place] Weakness Active 04/06/20 Finding 01/22/[address] [facility] [place] FALL/SOB Active 01/09/20 [facility] 16 CHF (<span Resolved Problem 01/14/2016 [facility] ID="[id number]"> Confirmed</span>) Cholecystectomy Active Problem 01/14/2016 [facility] COPD Active Problem 01/14/2016 [facility] Current smoker Active Problem 01/14/2016 [facility] DM , type 2(<span Resolved Problem 01/14/2016 [facility] ID="[id number]"> Confirmed</span>) DM - Diabetes Active Problem 01/14/2016 [facility] mellitus History of repair Active Problem 01/14/2016 [facility] of umbilical hernia HLD (<span Resolved Problem 01/14/2016 [facility] ID="[id number]"> Confirmed</span>) HTN (<span Resolved Problem 01/14/2016 [facility] ID="[id number]"> Confirmed</span>) HTN - Hypertension Active Problem 01/14/2016 [facility] [place] - Myocardial Active Problem 01/14/2016 [facility] infarction Anemia Active Finding 01/22/[address] [facility] [place] Bacteremia Active Finding 01/22/[address] [facility] [place] Edema Active Finding 01/22/[address] [facility] [place] Pericardial Active Finding 01/22/[address] 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 [place] Spironolactone DAILY Active . 2017 [facility] [place] Finasteride DAILY Active 2017 [facility] [place] Glipizide TWICE DAILY Active 2017 [facility] [place] Ipratropium/[place] Q6H PRN For Active terol Sulfate Wheezing 2018 [facility] [place] Furosemide DAILY Active 2017 [facility] [place] Magnesium Oxide AT BEDTIME Active 2017 [facility] [place] Gabapentin TWICE DAILY Active . 2017 [facility] [place] Lisinopril DAILY Active 2017 [facility] [place] Ranolazine TWICE DAILY Active 2017 [facility] [place] Sertraline Hcl DAILY Active . 2017 [facility] [place] Tamsulosin Hcl AT BEDTIME Active . 2017 [facility] [place] Zinc DAILY Active [facility] [place] Alprazolam AT BEDTIME Active [facility] [place] Apixaban TWICE DAILY Active [facility] [place] Carvedilol TWICE DAILY Active [facility] [place] Hydrocodone THREE TIMES A Active . 7.5/Apap 325 DAY 2018 [facility] [place] Ranolazine DAILY Active [facility] 2018 [facility] [place] Spironolactone DAILY Active [facility] 2018 [facility] [place] Cefdinir TWICE DAILY Active [facility] [place] Albuterol EVERY [address] [facility] St. Sulfate NEEDED PRN 2017 [facility] Short[place] Of Breath Ipratropium/Albu TWICE DAILY Active [facility] St. terol Sulfate 2017 [facility] [place] Hydralazine TWICE DAILY Active [facility] St[facility] 2017 [facility] [place] Budesonide/Formo TWICE DAILY Active [facility] St[facility] terol [facility]umarate 2017 [facility] [place] Nitroglycerin [id number] PRN For Active Suggs [facility] . Chest Pain 2017 [facility] [place] Cefdinir TWICE DAILY Active [facility] St. 2017 [facility] [place] Lisinopril DAILY Active [facility] St[facility] 2017 [facility] [place] Metolazone DAILY Active [facility] St[facility] 2016 [facility] [place] Ciprofloxacin TWICE DAILY Active Maurice [facility] St. Hcl 2016 [facility] [place] Hydralazine THREE TIMES A Active [facility] . DAY 2016 [facility] [place] Sotalol Hcl DAILY Active [facility] . 2016 [facility] [place] Tamsulosin Hcl DAILY Active [facility] St. 2016 [facility] [place] Diltiazem Tab Q6H Active [facility] St[facility] 2016 [facility] [place] Carvedilol DAILY [facility] [place] Furosemide DAILY Active [facility] St[facility] 2016 [facility] [place] Minoxidil TWICE DAILY Active [facility] . 2016 [facility] [place] carvedilol 12.5 12.5 mg=1 tab, Active [facility] mg oral tablet PO, Q12H, # 60 2015 tab, 0 Refill(s) predniSONE 20 mg 40 mg=2 tab, Active oral tablet PO, Daily, X 7 2015, # 14 tab, 0 Refill(s) Cefuroxime 500 500 mg=1 tab, Active MG Oral Tablet PO, BID, X 7 2015 [facility] day, # 14 tab, 0 Refill(s) Nebulizer 1 ea, MISC, Active ONCALL, # 1 ea, 2015 0 Refill(s) Albuterol 0.83 2.49 mg=3 mL, Active MG/ML Inhalant INHALATION, 2015 [facility] Solution Q6H, # 120 ea, 0 Refill(s) Advair Diskus 1 puff, Active 250 mcg-50 mcg INHALATION, 2015 inhalation BID, # 1 ea, 0 powder Refill(s) remove patch 1 patch, Route: Inactive TOP, Drug form: 2015 [facility] ERFILM, Daily, Start date: 01/11/16 9:00:00 CDT, Duration: 30 day, Stop date: 02/09/16 9:00:00 CDTNotes: Remove old patch before application of new patch. WASTE: F/P - P Waste Black; E - P Waste Black Levemir 12 unit, 0.12 No Longer mL, Route: Active 2015 [facility] SUB-Q, Drug form: INJ, Q12H, Dosing Weight 106.506, kg, Start date: 01/10/16 21:00:00 CDT, Duration: 30 day, Stop date: 02/09/16 9:00:00 CDTNotes: Same as Levemir Do not hold insulin without contacting prescriber WASTE: F/P - Black; E - Municipal Trash Bin "single patient use only" Nicotine 21 mg, 1 patch, No Longer Route: TOP, Active 2015 [facility] Drug form: ERFILM, Daily, Dosing Weight 106.506, kg, Start date: 01/10/16 16:00:00 CDT, Duration: 30 day, Stop date: 02/09/16 9:00:00 CDTNotes: (Same as: Habitrol) "Remove old patch before application of new patch" WASTE: F/P - P Waste Black; E - P Waste Black Omeprazole 20 mg, Route: No Longer PO, Daily, Active 2015 [facility] Dosing Weight 107.273, kg, Start date: 01/10/16 9:00:00 CDT, Duration: 30 day, Stop date: 02/08/16 9:00:00 CDT Lisinopril 20 mg, 1 tab, Inactive Route: PO, Drug 2015 [facility] form: TAB, Daily, Dosing Weight 107.273, kg, Start date: 01/10/16 9:00:00 CDT, Duration: 30 day, Stop date: 02/08/16 9:00:00 CDTNotes: (Same as: Prinivil, Zestril) Coreg 12.5 mg, 1 tab, No Longer Route: PO, Drug Active 2015 [facility] form: TAB, Q12H, Dosing Weight 106.506, kg, Priority: NOW, Start date: 01/10/16 8:06:00 CDT, Duration: 30 day, Stop date: 02/08/16 21:00:00 CDTNotes: Give with food. (Same As: Coreg) Rocephin 1 gm, Route: No Longer IVPB, [id number], Active 2015 [facility] Dosing Weight 107.273, kg, Start date: 01/10/16 3:00:00 CDT, Duration: 30 day, Stop date: 02/08/16 3:00:00 CDTNotes: (Same As: Rocephin). Use with 100 mL NS and infuse over 30 min MEDICATION WASTE Product Size: 1000 mg Product Wasted: ___ mg Levofloxacin 750 mg, 150 mL, No Longer Route: IVPB, Active 2015 [facility] Drug form: SOLN, [id number], Dosing Weight 107.273, kg, Start date: 01/10/16 3:00:00 CDT, Duration: 30 day, Stop date: 02/08/16 3:00:00 CDTNotes: (Same as:Levaquin) atorvastatin 40 mg, 1 tab, No Longer Route: PO, Drug Active 2015 [facility] form: TAB, Bedtime, Dosing Weight 107.273, kg, Start date: 01/09/16 21:00:00 CDT, Duration: 30 day, Stop date: 02/07/16 21:00:00 CDTNotes: (Same as: Lipitor) tamsulosin 0.4 mg, 1 cap, No Longer Route: PO, Drug Active 2015 [facility] form: CAP, Daily, Dosing Weight 107.273, kg, Start date: 01/09/16 21:00:00 CDT, Duration: 30 day, Stop date: 02/07/16 21:00:00 CDTNotes: (Same As: Flomax) "Do Not Crush" Sotalol 80 mg, 1 tab, No Longer Hydrochloride AF Route: PO, Drug Active 2015 [facility] form: TAB, BID, Dosing Weight 107.273, kg, Start date: 01/09/16 21:00:00 CDT, Duration: 30 day, Stop date: 02/08/16 9:00:00 CDTNotes: (Same As: Betapace) Sertraline 100 mg, 2 tab, No Longer Route: PO, Drug Active 2015 [facility] form: TAB, Bedtime, Dosing Weight 107.273, kg, Start date: 01/09/16 21:00:00 CDT, Duration: 30 day, Stop date: 02/07/16 21:00:00 CDTNotes: (Same as: Zoloft) Ranexa 500 mg, 1 tab, No Longer Route: PO, Drug Active 2015 [facility] form: TAB, BID, Dosing Weight 107.273, kg, Start date: 01/09/16 21:00:00 CDT, Duration: 30 day, Stop date: 02/08/16 9:00:00 CDTNotes: Same as Ranexa "Do Not Crush" Metoprolol 5 mg, 5 mL, Inactive Route: IV, Drug 2015 [facility] form: INJ, ONCE, Dosing Weight 106.506, kg, Start date: 01/09/16 16:56:00 CDT, Stop date: 01/09/16 16:56:00 CDTNotes: (Same as: Lopressor) Push over 2 minutes Protonix 40 mg, 1 tab, No Longer Route: PO, Drug Active 2015 [facility] form: ECTAB, Before Dinner, Start date: 01/09/16 16:30:00 CDT, Duration: 30 day, Stop date: 02/07/16 16:30:00 CDTNotes: Tablet should not be chewed or crushed. (Same as: Protonix) Furosemide 40 MG 40 mg, 1 tab, No Longer Oral Tablet Route: PO, Drug Active 2015 [facility] form: TAB, BID Diuretic, Dosing Weight 107.273, kg, Start date: 01/09/16 16:00:00 CDT, Duration: 30 day, Stop date: 02/08/16 8:00:00 CDTNotes: (Same as: Lasix) May cause GI upset. Give with food or milk. Solu-Medrol 40 mg, 1 mL, No Longer Route: IVP, Active 2015 [facility] Drug form: INJ, Q8H, Dosing Weight 107.273, kg, Start date: 01/09/16 16:00:00 CDT, Duration: 30 day, Stop date: 02/08/16 8:00:00 CDTNotes: (Same as:Solu-MEDROL, A-Methapred) gabapentin 300 300 mg, 1 cap, No Longer MG Oral Capsule Route: PO, Drug Active 2015 [facility] form: CAP, TID, Dosing Weight 107.273, kg, Start date: 01/09/16 14:00:00 CDT, Duration: 30 day, Stop date: 02/08/16 6:00:00 CDTNotes: (Same as: Neurontin) Aspirin 81 MG 81 mg, 1 tab, No Longer Enteric Coated Route: PO, Drug Active 2015 [facility] Tablet form: ECTAB, Daily, Dosing Weight 107.273, kg, Start date: 01/09/16 14:00:00 CDT, Duration: 30 day, Stop date: 02/08/16 9:00:00 CDTNotes: Do not crush or chew. (Same As: Ecotrin) Insulin, Aspart, 2 unit, 0.02 No Longer Human mL, Route: Active 2015 [facility] SUB-Q, Drug form: SOLN, Bedtime, Dosing Weight [...] No Longer Syringe Route: IVP, Active 2015 [facility] Drug Form: INJ, Dosing Weight 107.273, kg, PRN, PRN Blood Glucose Results, Start date: 01/09/16 9:17:00 CDT, Duration: 30 day, Stop date: 02/08/16 9:16:00 CDT Glucagon 1 mg, Route: No Longer IM, Drug form: Active 2015 [facility] PDR/INJ, PRN, Dosing Weight 107.273, kg, PRN Blood Glucose Results, Start date: 01/09/16 9:17:00 CDT, Duration: 30 day, Stop date: 02/08/16 9:16:00 CDT Albuterol 0.833 3 ml, Route: No Longer MG/ML / NEB, Drug Form: Active 2015 [facility] Ipratropium SOLN, Dosing [place] 0.167 Weight 107.273, MG/ML Inhalant kg, PRN, PRN Solution Respiratory [DuoNeb] Protocol, Start date: 01/09/16 9:11:00 CDT, Duration: 30 day, Stop date: 02/08/16 9:10:00 CDTNotes: (Same as: Duoneb) Enoxaparin 40 mg, 0.4 mL, No Longer Route: SUB-Q, Active 2015 [facility] Drug form: INJ, [id number], Dosing Weight 107.273, kg, Start date: 01/09/16 9:00:00 CDT, Duration: 30 day, Stop date: 02/07/16 9:00:00 CDTNotes: (Same as: Lovenox) Alprazolam 0.5 1 mg=2 tab, PO, No Longer MG Oral Tablet Bedtime, 0 Active 2015 [facility] Refill(s) Furosemide 40 MG 40 mg=1 tab, Active Oral Tablet PO, BID, 0 2016 [facility] Refill(s) minoxidil 2.5 mg 2.5 mg=1 tab, No Longer oral tablet PO, BID, 0 Active 2016 [facility] Refill(s) Potassium 20 mEq=1 tab, No Longer Chloride 20 MEQ PO, BID, 0 Active 2016 [facility] Extended Release Refill(s) Tablet atorvastatin 40 40 mg=1 tab, Active mg oral tablet PO, Bedtime, 0 2015 [facility] Refill(s) tamsulosin 0.4 0.4 mg=1 cap, Active mg oral capsule PO, Daily, 0 2016 [facility] Refill(s) sertraline 100 100 mg=1 tab, Active mg oral tablet PO, Bedtime, 0 2015 [facility] Refill(s) promethazine 25 25 mg=1 tab, No Longer mg oral tablet PO, Q8H, PRN Active 2015 [facility] Nausea, 0 Refill(s) carvedilol 25 mg 25 mg=1 tab, No Longer oral tablet PO, Daily, 0 Active 2016 [facility] Refill(s) Omeprazole 20 mg, PO, Active Daily, 0 2016 [facility] Refill(s) gabapentin 300 300 mg=1 cap, Active MG Oral Capsule PO, TID, 0 2015 [facility] Refill(s) glimepiride 2 mg 2 mg=1 tab, PO, No Longer oral tablet BID, 0 Active 2015 [facility] Refill(s) niacin 500 mg 1,000 mg=2 tab, Active oral tablet PO, Bedtime, 0 2016 [facility] Refill(s) lisinopril 20 mg 20 mg=1 tab, Active oral tablet PO, Daily, 0 2016 [facility] Refill(s) Aspirin 81 MG 81 mg=1 tab, Active Enteric Coated PO, Daily, # 90 2016 [facility] Tablet tab, 3 Refill(s) Sotalol 80 mg=1 tab, Active Hydrochloride AF PO, BID, 0 2016 [facility] 80 mg oral Refill(s) tablet Ranexa 500 mg, PO, Active BID, 0 2015 [facility] Refill(s) Glipizide 10 MG 5 mg=0.5 tab, No Longer Oral Tablet PO, BID, 0 2015 [facility] Refill(s) dextromethorphan 10 mL, Route: No Longer -guaiFENesin 10 PO, Drug Form: Active 2015 mg-100 mg/5 mL LIQ, Dosing oral liquid Weight 107.273, kg, Q4H, PRN Cough, Start date: 01/09/16 4:24:00 CDT, Duration: 30 day, Stop date: 02/08/16 4:23:00 CDTNotes: (dextromethorph an-guaifenesin 10-100/5 ml LIQ) (Same as: Robitussin-DM) Ondansetron 4 mg, 2 mL, No Longer Route: IVP, Active 2015 [facility] Drug form: INJ, Q6H, Dosing Weight 107.273, kg, PRN Nausea & Vomiting, Start date: 01/09/16 4:24:00 CDT, Duration: 30 day, Stop date: 02/08/16 4:23:00 CDTNotes: (Same as: Zofran) MEDICATION WASTE Product Size: 4 mg Product Wasted: ___ mg Acetaminophen 650 mg, 2 tab, No Longer Route: PO, Drug Active 2015 [facility] form: TAB, Q4H, Dosing Weight 107.273, kg, PRN Pain Score 1-3, For fever > 100.4. Not to exceed 4 grams in 24 hours, Start date: 01/09/16 4:24:00 CDT, Duration: 30 day, Stop date: 02/08/16 4:23:00 CDTNotes: Do not exceed 4 gm/day. (Same as: Tylenol) Levofloxacin 750 mg, 150 mL, Inactive Route: IV, Drug 2015 [facility] form: SOLN, ONCE, Dosing Weight 107.273, kg, Start date: 01/09/16 2:39:00 CDT, Stop date: 01/09/16 2:39:00 CDTNotes: (Same as:Levaquin) Ceftriaxone 1 gm, Route: Inactive IVPB, Drug 2015 [facility] form: PDR/INJ, ONCE, Dosing Weight 107.273, kg, Priority: STAT, Start date: 01/09/16 2:39:00 CDT, Stop date: 01/09/16 2:39:00 CDTNotes: (Same As: Rocephin). Use with 100 mL NS and infuse over 30 min MEDICATION WASTE Product Size: 1000 mg Product Wasted: ___ mg Albuterol 0.833 3 mL, Route: Inactive MG/ML / INHALATION, 2015 [facility] Ipratropium Drug Form: [place] 0.167 SOLN, Dosing MG/ML Inhalant Weight 107.273, Solution kg, ONCE, Start [DuoNeb] date: 01/09/16 1:51:00 CDT, Stop date: 01/09/16 1:51:00 CDTNotes: (Same as: Duoneb) Tylenol 1,000 mg, 2 Inactive tab, Route: PO, 2015 [facility] Drug form: TAB, ONCE, Dosing Weight 107.273, kg, Priority: STAT, Start date: 01/09/16 1:51:00 CDT, Stop date: 01/09/16 1:51:00 CDTNotes: Max acetaminophen 4000 mg/day (4 gm/day). (Same as: Tylenol Extra Strength) Saline Flush 10 mL, Route: No Longer 0.9% IVP, Drug Form: Active 2015 [facility] INJ, Dosing Weight 107.273, kg, PRN, PRN [...] [place] Dilaudid Assertion Drug Active allergy [place] Immunizations Immunization Date Given Site Status Last Updated Comments Source Results Order Name Results Value Reference Date Interpretation Comments Source Range Retroperit Retroperiton EXAM: US RENAL 10/13 - [place] [facility] Complete /2019 - Medical Complete US This report was dictated by a Security Sme/Fellow/ Physician Buffet Attendant. I have personally Center US reviewed the images as well as the interpretation and agree with the findings. DATE: 10/13/2018 9:29 CONVERTING TECHNICIAN Read by: Frederic Bear MD Resident/Fellow/Physician Buffet Attendant: Frederic Bear MD Dictated Date/time: 10/13/18 11:27 [...] ABDOMEN AND PELVIS WITH CONTRAST 10/10 - [facility] w IV is w IV - Medical contrast contrast CT This report was dictated by a Security Sme /Fellow/Physician Buffet Attendant. I have personally Center CT reviewed the images as well as the interpretation and agree with the findings. DATE: 10/10/2018 14:27 CONVERTING TECHNICIAN Read by: Margaret Lagunas (Fellow) Resident/Fellow/Physician Buffet Attendant: Margaret Lagunas (Fellow) Dictated Date/time: 10/11/18 10:39 [...] EXAM: XR ABDOMEN 2 VIEWS 10/10 - [facility] acute acute series /2018 - Medical series w w chest 1 EXAM: CHEST 1 VIEW [place] chest 1 view DX view DX Read by: Alexandr Ferguson MD Dictated Date/time: 10/10/18 13:13 DATE: 10/10/2018 9:04 CONVERTING TECHNICIAN Electronically Signed by: Alexandr Ferguson MD 10/10/18 [...] EXAM: XR CHEST 1 VIEW 10/10 - [facility] [address] DX /2018 [facility] DATE: 10/10/2018 3:00 CONVERTING TECHNICIAN Read by: Ashwin Hoff MD Dictated Date/time: [...] EXAM: XR ABDOMEN 1 VIEW 10/09 - [facility] DX [facility] DATE: 10/09/2018 20:22 CONVERTING TECHNICIAN Read by: Alexandr Ferguson MD Dictated Date/time: [...] a paucity of small bowel gas. Fecal [place]: Moderate. Bones: No acute abnormalities seen. . [...] EXAM: XR CHEST 1 VIEW 10/08 - [address] DX [facility] DATE: 10/08/2018 3:00 CONVERTING TECHNICIAN Read by: Jaimie Toure MD Dictated Date/time: [...] EXAM: XR CHEST 1 VIEW 10/07 - [address] DX [facility] DATE: 10/07/2018 6:18 CONVERTING TECHNICIAN Read by: Jaimie Toure MD Dictated Date/time: [...] EXAM: XR CHEST 1 VIEW 10/04 - [address] DX [facility] This report was dictated by a Security Sme/Fellow/Physician Buffet Attendant. I have personally Center reviewed the images as well as the interpretation and agree with the findings. DATE: 10/04/2018 23:54 CONVERTING TECHNICIAN Read by: Manuel Kepm MD Resident/Fellow/Physician Buffet Attendant: Manuel Kemp MD Dictated Date/time: 10/05/18 00:24 [...] Bedside 130 mg/dl 65 - 120 01/[address] [facility] St[facility] Studies Glucose /2017 [facility] [place] [facility] White Blood 12.1 K/uL 4.3 - 10.9 01/[address] [facility] St[facility] Studies Count /2017 [facility] [place] [facility] Red Cell 16.8 % 12.1 - 01/[address] [facility] St. Studies Distribution 15.2 /2017 [facility] Width [place] [facility] Red Blood 3.63 M/uL 4.33 - 01/21 [facility]. Studies Count 5.43 [facility] [place] [facility] Platelet 379 K/uL 152 - 406 01/[address] [facility] St. Studies Count /2017 [facility] [place] [facility] Neutrophils 64.0 % 41.7 - 01/[address] [facility] St. Studies % 73.7 /2017 [facility] [place] [facility] Monocytes % 6.6 % 3.3 - 12.3 01/[address] [facility] St. Studies /2017 [facility] [place] [facility] Mean 8.8 fL 7.6 - 11.3 01/[address] [facility] St. Studies Platelet /2017 [facility] Volume [place] [facility] Mean 82.6 fL 80 - 100 01/21 [facility]. Studies Corpuscular /2017 [facility] Volume [place] [facility] Mean 32.7 g/dL 32.0 - 01/[address] [facility] St. Studies Corpuscular 36.0 [facility] Hemoglobin [place] [facility] Mean 27.0 pg 27.0 - 01/21 [facility]. Studies Corpuscular 35.0 [facility] Hemoglobin [place] [facility] Lymphocytes 25.5 % 15.3 - 01/[address] [facility] St. Studies % 44.8 /2017 [facility] [place] [facility] Hemoglobin 9.8 g/dL 13.6 - 01/[address] [facility] St. Studies 17.9 /2017 [facility] [place] [facility] Hematocrit 30.0 % 39.6 - 01/[address] [facility] St. Studies 49.0 /2017 [facility] [place] [facility] Eosinophils 3.1 % 0 - 4.4 01/[address] [facility] St. Studies % /2018 [facility] [place] [facility] Basophils % 0.8 % 0 - 1.3 01/[address] [facility] St. Studies /2017 [facility] [place] [facility] Absolute 7.7 K/uL 1.8 - 8.0 01/[address] [facility] St. Studies Neutrophil /2017 [facility] [place] [facility] Absolute 0.8 K/uL 0.1 - 1.3 01/[address] [facility] St[facility] Studies Monocytes /2017 [facility] (CBC) [place] [facility] Absolute 3.1 K/uL 0.7 - 4.9 01/[address] [facility] St. Studies Lymphocytes [facility] (CBC) [place] [facility] Absolute 0.4 K/uL 0 - 0.5 01/[address] [facility] St. Studies Eosinophils [facility] (CBC) [place] [facility] Absolute 0.1 K/uL 0 - 0.5 01/[address] [facility] St. Studies Basophils [facility] (CBC) [place] [facility] Sodium Level 141 mEq/L 135 - 145 01/[address] [facility] St. Studies [facility] [place] [facility] Potassium 3.9 mEq/L 3.6 - 5.0 01/[address] [facility] St. Studies Level 2018 [facility] [place] [facility] Magnesium 2.0 mg/dL 1.8 - 2.5 01/[address] [facility] St. Studies Level [facility] [place] [facility] Glucose 108 mg/dL 65 - [address] [facility] St. Studies Level 2018 [facility] [place] [facility] Estimat 74 mL/min 90 01/[address] [facility] St. Studies Glomerular [facility] Filtration [place] Rate [facility] Creatinine 0.99 mg/dL 0.61 - 01/[address] [facility] St. Studies 1. [facility] [place] [facility] Chloride 107 mEq/L 101 - 111 01/[address] [facility] St. Studies Level 2018 [facility] [place] [facility] Carbon 31 mEq/L 21 - 31 01/[address] [facility] St. Studies Dioxide [facility] Level [place] [facility] Calcium 8.6 mg/dL 8.5 - 10.5 01/[address] [facility] St. Studies Level 2018 [facility] [place] [facility] Blood Urea 17 mg/dL 6 - 20 01/[address] [facility] St. Studies Nitrogen [facility] [place] [facility] Total 0.3 mg/dL 0.3 - 1.2 01/20 [facility]. Studies Bilirubin /2017 [facility] [place] [facility] Serum Total 6.1 g/dL 6.0 - 8.3 01/20 . Studies Protein /2017 [facility] [place] [facility] Globulin 3.3 g/dL 2.3 - 3.5 01/20 St. Studies /2017 [facility] [place] [facility] Aspartate 18 IU/L 10 - 42 01/20 [facility]. Studies Amino Transf /2017 [facility] (AST/SGOT) [place] [facility] Alkaline 76 IU/L 42 - 121 01/20 [facility]. Studies Phosphatase /2017 [facility] [place] [facility] Albumin/Glob 0.8 1.1 - 1.8 01/20 [facility]. Studies ulin Ratio /2017 [facility] [place] [facility] Albumin 2.8 g/dL 3.2 - 5.5 01/20 [facility]. Studies /2017 [facility] [place] [facility] Alanine 23 IU/L 10 - 60 01/20 [facility]. Studies Aminotransfe /2017 [facility] rase [place] (ALT/SGPT) Microbiolo Escherichia [place] 01/17 [facility]. gy Studies Coli a Coli /2017 [facility] [place] [facility] Procalcitoni 1.61 ng/mL 01/16 [facility]. Studies n /2017 [facility] [place] [facility] Urine Urine 01/14 [facility]. Studies Leukocyte Leukocyte /2017 [facility] [place] [facility] Urine pH 5.5 01/[address] [facility] St. Studies /2017 [facility] [place] [facility] Urine Total Urine 01/14 [facility]. Studies Protein Total /2017 [facility] Protein [place] [facility] Urine 1.020 01/14 [facility]. Studies Specific /2017 [facility] Andrew [place] [facility] Urine Urine 01/14 [facility]. Studies Nitrite Nitrite /2017 [facility] [place] [facility] Urine Urine 01/14 [facility]. Studies Ketones Ketones /2017 [facility] [place] [facility] Urine Urine 01/14 [facility]. Studies Glucose Glucose /2017 [facility] [place] [facility] Urine Blood Urine 01/14 [facility]. Studies Blood /2017 [facility] [place] [facility] Blood Blood 01/14 [facility]. Studies Morphology Morphology /2017 [facility] Comment Comment [place] [facility] Direct 0.3 mg/dL 0 - 0.2 01/[address] Studies Bilirubin [facility] [place] [facility] Prothrombin 32.8 9.5 - 12.5 01/14 [facility]. Studies Time SECONDS [facility] [place] [facility] INR 2.75 01/14 [facility]. Studies Internationa [facility] l Normalized [place] Ratio [facility] Activated 52.2 24.3 - 01/14 [facility]. Studies Partial SECONDS 36.9 [facility] Thromboplast [place] Time Laboratory Lactic Acid 9.3 mg/dL 4.5 - 19.8 01/[address] [facility] St. Studies Level /2017 [facility] [place] [facility] Creatine 1.0 ng/ml 0.3 - 4.0 01/14 [facility]. Studies Kinase MB [facility] [place] [facility] B-Type 507 pg/ml 01/14 [facility]. Studies Natriuretic [facility] Peptide [place] [facility] Creatine 95 IU/L 22 - 269 01/14 [facility]. Studies Kinase [facility] [place] [facility] Rapid null 01/14 [facility]. Studies Troponin I [facility] [place] [facility] Lipase 13 U/L 22 - 51 01/14 [facility]. Studies [facility] [place] CHEM PANEL BUN 34 mg/dL 7 - 22 01/10 [facility] CHEM PANEL Glucose Lvl 294 mg/dL 70 - 99 01/10 [facility] CHEM PANEL eGFR 61 01/10 Result Comment: [...] is not recommended in the following populations: [facility] 3m2 Individuals with unstable creatinine concentrations, including [...] Lvl 9.0 mg/dL 8.5 - 10.5 01/10 [facility] CHEM PANEL AGAP 11.7 meq/L 10.0 - 01/10 MH 20.0 /2015 [facility] CHEM PANEL Sodium Lvl 138 meq/L 135 - 145 01/10 [facility] CHEM PANEL Creatinine 1.18 mg/dL 0.50 - 01/10 MH Lvl 1.40 /2015 [facility] CHEM PANEL Chloride Lvl 105 meq/L 95 - 109 01/10 [facility] CHEM PANEL Potassium 3.7 meq/L 3.5 - 5.1 01/10 Lvl /2015 [facility] CHEM PANEL CO2 25 meq/L 24 - 32 01/10 /2015 [facility] HEMATOLOGY MPV 8.8 fL 7.4 - 10.4 01/10 /2015 [facility] HEMATOLOGY RDW 18.1 % 11.5 - 01/10 14.5 /2015 [facility] HEMATOLOGY MCH 26.2 pg 27.0 - 01/10 31.0 /2015 [facility] HEMATOLOGY MCHC 32.6 g/dL 32.0 - 01/10 36.0 /2015 [facility] HEMATOLOGY Platelet 331 K/CMM 133 - 450 01/10 [facility] HEMATOLOGY Hct 32.4 % 42.0 - 01/10 54.0 /2015 [facility] HEMATOLOGY Hgb 10.6 g/dL 14.0 - 01/10 18.0 /2015 [facility] HEMATOLOGY MCV 80.4 fL 80.0 - 01/10 94.0 /2015 [facility] HEMATOLOGY RBC 4.03 M/CMM 4.70 - 01/10 6.10 /2015 [facility] WBC 22.3 K/CMM 3.7 - 10.4 01/10 [facility] Chest Chest 1view Clinical Indication: Pneumonia 01/10 - 1view DX DX /2015 - [facility] Comparison: 01/10/2016 Read by: Ron Orellana DO [...] pg 27.0 - 01/09 MH 31.0 /2015 [facility] MCHC 32.5 g/dL 32.0 - 01/09 MH 36.0 /2016 [facility] HEMATOLOGY MCV 81.2 fL 80.0 - 01/09 94.0 /2016 [facility] HEMATOLOGY Platelet 270 K/CMM 133 - 450 01/09 /2015 [facility] HEMATOLOGY MPV 8.3 fL 7.4 - 10.4 01/09 [facility] HEMATOLOGY RDW 18.1 % 11.5 - 01/09 14.5 /2015 [facility] HEMATOLOGY WBC 15.8 K/CMM 3.7 - 10.4 01/09 /2015 [facility] HEMATOLOGY RBC 4.13 M/CMM 4.70 - 01/09 6.10 /2015 [facility] HEMATOLOGY Hct 33.5 % 42.0 - 01/09 54.0 /2016 [facility] HEMATOLOGY Hgb 10.9 g/dL 14.0 - 01/09 18.0 /2016 [facility] ELECTROLYT AGAP 9.9 meq/L 10.0 - 01/09 ES 20.0 /2015 [facility] ELECTROLYT eGFR 65 01/09 Result Comment: The eGFR is calculated using the CKD-EPI formula. In most young, healthy individuals the eGFR will be >90 mL/ min/1.73m2. The eGFR declines with age. An eGFR of 60-89 may be normal in ES mL/min/1.7 /2016 some populations, particularly the elderly, for whom the CKD-EPI formula has not been extensively validated. Use of the eGFR is not recommended in the following populations: [address] Individuals with unstable creatinine concentrations, including patients [...] 8.6 mg/dL 8.5 - 10.5 01/09 ES [facility] ELECTROLYT Glucose Lvl 209 mg/dL 70 - 99 01/09 ES [facility] ELECTROLYT BUN 23 mg/dL 7 - 22 01/09 ES [facility] ELECTROLYT Creatinine 1.12 mg/dL 0.50 - 01/09 ES Lvl 1.40 /2015 [facility] ELECTROLYT Sodium Lvl 139 meq/L 135 - 145 01/09 ES [facility] ELECTROLYT Potassium 3.9 meq/L 3.5 - 5.1 01/09 [facility] [address] Lvl /2015 [facility] ELECTROLY Chloride Lvl 107 meq/L 95 - 109 01/09 ES [facility] ELECTROLYT CO2 26 meq/L 24 - 32 01/09 ES [facility] VIRAL - Influ B Negative Negative 01/09 SEROLOGY [facility] (01/10/16 5:04 AM) VIRAL - Influ A Negative Negative 01/09 SEROLOGY [facility] (01/10/16 5:04 AM) Chest Chest 1view Study: Chest 1view DX 01/10/2016 3:00 AM CDT 01/09 [facility] 1view DX DX - [facility] Ordering Physician: Artemio Lopez MD Clinical Indication: [...] limit of normal or mildly enlarged. SL: [id number] CHEM PANEL eGFR 56 01/08 Result Comment: [...] is not recommended in the following populations: [facility] 3m2 Individuals with unstable creatinine concentrations, including [...] 1.28 mg/dL 0.50 - 01/08 Lvl 1.40 /2016 [facility] HEMATOLOGY PTT 49.7 s 22.9 - 01/08 MH 35.8 /2016 [facility] HEMATOLOGY Platelet 242 K/CMM 133 - 450 01/08 [facility] CHEM PANEL Procalcitoni 0.32 ng/mL 0.00 - 01/08 n Lvl 0.10 /2015 [facility] VIRAL - Influ A Negative Negative 01/08 SEROLOGY /2015 [facility] (01/09/16 4:21 AM) VIRAL - Influ B Negative Negative 01/08 SEROLOGY [facility] (01/09/16 4:21 AM) CHEM PANEL Lactic Acid 0.9 mMol/L 0.5 - 2.2 01/08 Lvl /2015 [facility] CARDIAC Troponin-I 0.07 ng/mL 0.00 - 01/08 ENZYMES 0.40 /2015 [facility] CARDIAC CK MB 0.9 ng/mL 0.5 - 3.6 01/08 ENZYMES /2015 [facility] CARDIAC Total CK 122 unit/L 12 - 191 01/08 ENZYMES /2015 [facility] CARDIAC BNP 217 pg/mL <=100 01/08 ENZYMES pg/mL /2015 [facility] CARDIAC CK MB Index 0.7 0.0 - 2.5 01/08 ENZYMES /2015 [facility] CHEM PANEL Glucose Lvl 114 mg/dL 70 - 99 01/08 [facility] CHEM PANEL BUN 20 mg/dL 7 - 22 01/08 /2015 [facility] CHEM PANEL Potassium 4.2 meq/L 3.5 - 5.1 01/08 Lvl /2015 [facility] CHEM PANEL Sodium Lvl 137 meq/L 135 - 145 01/08 /2015 [facility] CHEM PANEL A/G Ratio 0.8 0.7 - 1.6 01/08 /2015 [facility] CHEM PANEL Globulin 4.3 g/dL 2.0 - 4.0 01/08 [facility] CHEM PANEL B/C Ratio 15 6 - [...] Lvl 3.4 g/dL 3.5 - 5.0 01/08 [facility] HEMATOLOGY MCV 81.3 fL 80.0 - 01/08 94.0 [facility] HEMATOLOGY MCHC 32.4 g/dL 32.0 - 01/08 36.0 [facility] HEMATOLOGY MCH 26.4 pg 27.0 - 01/08 31.0 [facility] HEMATOLOGY RDW 18.3 % 11.5 - 01/08 14.5 [facility] HEMATOLOGY MPV 8.2 fL 7.4 - 10.4 01/08 /2015 [facility] HEMATOLOGY RBC 4.33 M/CMM 4.70 - 01/08 6.10 /2015 [facility] HEMATOLOGY WBC 19.3 K/CMM 3.7 - 10.4 01/08 [facility] HEMATOLOGY Hgb 11.4 g/dL 14.0 - 01/08 18.0 [facility] HEMATOLOGY Hct 35.2 % 42.0 - 01/08 54.0 /2015 [facility] HEMATOLOGY Basophils 0.4 % 0.0 - 1.0 01/08 [facility] HEMATOLOGY Eosinophils 0.1 % 0.0 - 4.0 01/08 [facility] HEMATOLOGY Lymphocytes 1.7 K/CMM 1.0 - 5.5 01/08 MH # /2015 [facility] HEMATOLOGY Segs-Bands # 15.2 K/CMM 1.5 - 8.1 01/08 [facility] HEMATOLOGY Monocytes # 2.3 K/CMM 0.0 - 0.8 01/08 [facility] HEMATOLOGY Basophils # 0.1 K/CMM 0.0 - 0.2 01/08 [facility] HEMATOLOGY Segs 78.5 % 45.0 - 01/08 MH 75.0 /2015 [facility] HEMATOLOGY Lymphocytes 9.1 % 20.0 - 01/08 MH 40.0 /2015 [facility] HEMATOLOGY Monocytes 11.9 % 2.0 - 12.0 01/08 [facility] Brain wo Brain wo Clinical Indication: Altered level of consciousness - contrast contrast CT - [facility] CT Comparison: None Read by: Ron Orellana [...] or retention cyst left maxillary sinus. SL: SHERRON Chest Chest 1view Clinical Indication: Chest pain HX: pt called EMS x 6 in the last 3 days for falls. Tonight EMS called out d/t pt falling while trying to ambulate with walker. EMS reports pt was tachypneic with RA sats in the 80s upon their arrival. 01/08 - [facility]view DX - [place] Comparison: 02/09/2012 Read by: Ron [...] vascular congestion versus nonspecific airspace infiltrate. [facility] V[facility] Sign[facility] Vital Sign Value Date Comments Source Heart Rate 72 01/21/[address] [facility] [place] Systolic (mm Hg) 161 01/21/[address] [facility] [place] Diastolic (mm Hg) 81 01/21/[address] [facility] [place] Temperature Oral (F) 98.8 F 01/21/[address] [facility] [place] Respitory Rate 19 01/21/[address] [facility] [place] Height 73 01/21/[address] [facility] [place] Weight 256.60 01/21/[address] [facility] [place] Temperature Oral (F) 97.4 F 01/11/2016 [facility] Heart Rate 97 01/11/2016 [facility] Respitory Rate 18 01/11/2016 [facility] Systolic (mm Hg) 147 01/11/2016 [facility] Diastolic (mm Hg) 93 01/11/2016 [facility] Respitory Rate 16 01/11/2016 [facility] Heart Rate 95 01/11/2016 [facility] Temperature Oral (F) 97.6 F 01/11/2016 [facility] Systolic (mm Hg) 150 01/11/2016 [facility] Diastolic (mm Hg) 91 01/11/2016 [facility] Temperature Oral (F) 97.9 F 01/11/2016 [facility] Heart Rate 93 01/11/2016 [facility] Respitory Rate 18 01/11/2016 [facility] Systolic (mm Hg) 144 01/11/2016 [facility] Diastolic (mm Hg) 89 01/11/2016 [facility] Weight 106.506 01/09/2016 [facility] BMI Calculated 30.98 01/09/2016 [facility] Height 185.42 cm 01/09/2016 [facility] Encounters Location Location Encounter Encounter Reason Attending ADM DC Status Source Details Type Number For Provider Date Date Visit [facility] Inpatient [id number] Artemio 01/08 01/10 Chriss Lopez /2015 [facility] [id number] 01/14 01/[address] [facility] [place] Procedures Procedure Code Date Perfomer Comments Source Chest Single [id number] [facility] [place] [facility] Blood [id number] [facility] [place] Aerobic Blood [id number] [facility] [place] [id number] [facility] [place] Shannon Count [id number] [facility] [place] Chest Abd [id number] [facility] [place] [facility] Con 8 [place] Chest Single [id number] [facility] [place] Operation on [id number] [facility] hip joint
--- OUTSIDE RECORDS SUMMARY | 2019-01-30 15:42 | XMS REPORT ---
:1945 [facility] Address [address] [place] [address] Care Team Providers Name Role Phone LEIDY MCCONNELL ARIELLE Unavailable Unavailable ANA MARÍA NELSON Unavailable Unavailable KENYON LONDONO Unavailable Unavailable Problems This patient has no known problems. Allergies, Adverse Reactions, Alerts This patient has no known allergies or adverse reactions. Medications This patient has no known medications. Results Test Description Test Time Test Comments Text Results Atomic Results Result Comments POCT-GLUCOSE METER 2019-01-19 16:41:00 Test Item Value Reference Range Comments POC-GLUCOSE METER (BEAKER) (test 166 mg/dL 70-[address] [facility] [address] [facility] euvb=9837) [facility] [address] ANG, NON-TUNNELED CATH/PICC >5 Y.O. WITH [id number] 14:38:00Reason for exam:->need for IV accessFINAL REPORT Right upper extremity PICC insertion. History: Needfor long-term IV therapy. Desizing Machine Back Tender: Brandon Devries MD. 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 Modality: Sonography and fluoroscopy. Sedation: None. Anesthesia: Two percent Lidocaine without epinephrine. Approach: Right basilic vein Estimated blood loss: < 5 cc. Specimen: None. Fluoroscopy Time: 0.4min.Reference Air Kerma (Ka, r): 4.4 mGy. Technique: [...] cover the areas of the patient that werenot prepped, and hand hygiene, mask, head covering, [...] needle into the right atrium. A 5 Polish peel-away sheath was placed. The 5 Polish double-lumen PICC line was measured and cut at 40 cm, and advanced through the sheath, with its distal tip terminating within the SVC. The peel-away sheath was removed. The ports were flushed and aspiratedeasily following placement. The PICC line was secured [...] ready for immediate use. Signed: Brandon Devries MDReport Verified Date/Time: 01/19/2019 14:38:36 Reading Location: [place] [address] Angio Body Reading Room [id number] 07:02:00 Test Item Value Reference Range Comments MAGNESIUM (BEAKER) (test 1.8 mg/dL 1.6-2.6 Specimen slightly hemolyzed uszd=960) BASIC METABOLIC [id number] 07:02:00 Test Item Value Reference Range Comments SODIUM (BEAKER) (test 141 meq/L 136-145 qieb=601) POTASSIUM (BEAKER) (test 3.7 meq/L 3.5-5.1 Specimen slightly caie=633) hemolyzed CHLORIDE (BEAKER) (test 114 meq/L 98-107 zbys=619) CO2 (BEAKER) (test 21 meq/L 22-29 oxjm=691) BLOOD UREA NITROGEN 17 mg/dL 7-21 (BEAKER) (test yveg=993) CREATININE (BEAKER) (test 1.09 mg/dL 0.57-1.25 Specimen slightly cfev=205) hemolyzed GLUCOSE RANDOM (BEAKER) 116 mg/dL 70-105 (test giax=511) CALCIUM (BEAKER) (test 8.8 mg/dL 8.4-10.2 yjoo=689) EGFR (BEAKER) (test 66 mL/min/1.73 sq m ESTIMATED GFR IS NOT oahb=0312) ACCURATE CREATININE CLEARANCE IN PREDICTING GLOMERULAR FILTRATION RATE. ESTIMATED GFR IS NOT APPLICABLE FOR DIALYSIS PATIENTS. POCT-GLUCOSE [id number] 06:28:00 Test Item Value Reference Range Comments POC-GLUCOSE METER (BEAKER) 121 mg/dL 70-110 TESTED AT [address] (test wqjk=9885) [facility] [address] POCT-GLUCOSE [id number] 21:25:00 Test Item Value Reference Range Comments POC-GLUCOSE METER (BEAKER) 163 mg/dL 70-110 TESTED AT [address] (test hlrp=9129) [place] [id number] POCT-GLUCOSE [id number] 17:12:00 Test Item Value Reference Range Comments POC-GLUCOSE METER (BEAKER) 191 mg/dL 70-110 TESTED AT [address] (test yxis=9152) [facility] [address] POCT-GLUCOSE [id number] 13:03:00 Test Item Value Reference Range Comments POC-GLUCOSE METER (BEAKER) 211 mg/dL 70-110 TESTED AT [address] (test oljh=7538) [facility] [address] POCT-GLUCOSE [id number] 08:47:00 Test Item Value Reference Range Comments POC-GLUCOSE METER (BEAKER) 124 mg/dL 70-110 TESTED AT [address] (test tfft=0783) [facility] [address] POCT-GLUCOSE [id number] 21:04:00 Test Item Value Reference Range Comments POC-GLUCOSE METER (BEAKER) 213 mg/dL 70-110 TESTED AT [address] (test ncye=4844) [facility] [address] POCT-GLUCOSE [id number] 17:36:00 Test Item Value Reference Range Comments POC-GLUCOSE METER (BEAKER) 174 mg/dL 70-110 TESTED AT [address] (test lglp=5921) [facility] [address] POCT-GLUCOSE [id number] 11:59:00 Test Item Value Reference Range Comments POC-GLUCOSE METER (BEAKER) 175 mg/dL 70-110 TESTED AT [place] [id number] [facility] (test tgrq=7969) [facility] [address] POCT-GLUCOSE [id number] 08:13:00 Test Item Value Reference Range Comments POC-GLUCOSE METER (BEAKER) 109 mg/dL 70-110 TESTED AT [place] [id number] [facility] (test xktb=5486) [facility] [address] [id number] 07:54:00 Test Item Value Reference Range Comments PHOSPHORUS (BEAKER) (test veya=779) 3.1 mg/dL 2.3-4.7 [id number] 07:54:00 Test Item Value Reference Range Comments MAGNESIUM (BEAKER) (test pmpf=936) 1.7 mg/dL 1.6-2.6 BASIC METABOLIC [id number] 07:54:00 Test Item Value Reference Range Comments SODIUM (BEAKER) (test 140 meq/L 136-145 jhal=253) POTASSIUM (BEAKER) (test 3.7 meq/L 3.5-5.1 wryn=463) CHLORIDE (BEAKER) (test 112 meq/L 98-107 tpxz=121) CO2 (BEAKER) (test 20 meq/L 22-29 ajnn=935) BLOOD UREA NITROGEN 22 mg/dL 7-21 (BEAKER) (test dume=898) CREATININE (BEAKER) (test 1.20 mg/dL 0.57-1.25 ksqo=027) GLUCOSE RANDOM (BEAKER) 85 mg/dL 70-105 (test benl=360) CALCIUM (BEAKER) (test 8.9 mg/dL 8.4-10.2 ijqi=480) EGFR (BEAKER) (test 59 mL/min/1.73 sq m ESTIMATED GFR IS NOT vrgc=9185) ACCURATE CREATININE CLEARANCE IN PREDICTING GLOMERULAR FILTRATION RATE. ESTIMATED GFR IS NOT APPLICABLE FOR DIALYSIS PATIENTS. CALCIUM, [id number] 06:26:00 Test Item Value Reference Range Comments CALCIUM IONIZED (BEAKER) (test ssgo=352) 1.08 mmol/L 1.12-1.27 PH, BLOOD (BEAKER) (test czzh=7677) 7.46 CBC W/PLT COUNT & AUTO [id number] 05:04:00 Test Item Value Reference Range Comments WHITE BLOOD CELL COUNT (BEAKER) (test iwtn=933) 8.0 K/ L 3.5-10.5 RED BLOOD CELL COUNT (BEAKER) (test tlrx=383) 3.63 M/ L 4.63-6.08 HEMOGLOBIN (BEAKER) (test jrzx=828) 9.3 GM/DL 13.7-17.5 HEMATOCRIT (BEAKER) (test zjtm=662) 31.1 % 40.1-51.0 MEAN CORPUSCULAR VOLUME (BEAKER) (test mqag=310) 85.7 fL 79.0-92.2 MEAN CORPUSCULAR HEMOGLOBIN (BEAKER) (test 25.6 pg 25.7-32.2 imzq=566) MEAN CORPUSCULAR HEMOGLOBIN CONC (BEAKER) (test 29.9 GM/DL 32.3-36.5 dhui=388) RED CELL DISTRIBUTION WIDTH (BEAKER) (test 17.6 % 11.6-14.4 itno=208) PLATELET COUNT (BEAKER) (test tyru=847) 188 K/CU MM 150-450 MEAN PLATELET VOLUME (BEAKER) (test iosn=565) 9.8 fL 9.4-12.4 NUCLEATED RED BLOOD CELLS (BEAKER) (test 0 /100 WBC 0-0 azrl=285) NEUTROPHILS RELATIVE PERCENT (BEAKER) (test 59 % gnbj=612) LYMPHOCYTES RELATIVE PERCENT (BEAKER) (test 30 % geyv=102) MONOCYTES RELATIVE PERCENT (BEAKER) (test 7 % uioh=097) EOSINOPHILS RELATIVE PERCENT (BEAKER) (test 3 % fguq=679) BASOPHILS RELATIVE PERCENT (BEAKER) (test 1 % xcgq=136) NEUTROPHILS ABSOLUTE COUNT (BEAKER) (test 4.67 K/ L 1.78-5.38 ncgg=107) LYMPHOCYTES ABSOLUTE COUNT (BEAKER) (test 2.37 K/ L 1.32-3.57 aqyu=943) MONOCYTES ABSOLUTE COUNT (BEAKER) (test 0.55 K/ L 0.30-0.82 klpm=520) EOSINOPHILS ABSOLUTE COUNT (BEAKER) (test 0.27 K/ L 0.04-0.54 tegb=981) BASOPHILS ABSOLUTE COUNT (BEAKER) (test 0.06 K/ L 0.01-0.08 lyga=435) IMMATURE GRANULOCYTES-RELATIVE PERCENT (BEAKER) 1 % 0-1 (test opbg=9519) POCT-GLUCOSE [id number] 21:25:00 Test Item Value Reference Range Comments POC-GLUCOSE METER (BEAKER) 187 mg/dL 70-110 TESTED AT [address] (test bema=3199) [facility] [address] POCT-GLUCOSE [id number] 18:09:00 Test Item Value Reference Range Comments POC-GLUCOSE METER (BEAKER) 182 mg/dL 70-110 TESTED AT [address] (test apdu=0130) [facility] [address] POCT-GLUCOSE [id number] 13:07:00 Test Item Value Reference Range Comments POC-GLUCOSE METER (BEAKER) 130 mg/dL 70-110 TESTED AT [address] (test ckga=2659) [facility] [address] PROTHROMBIN [id number] 07:45:00 Test Item Value Reference Range Comments PROTIME (BEAKER) (test lrif=928) 16.0 seconds 11.7-14.7 INR (BEAKER) (test bxrn=909) 1.3 <=5.9 RECOMMENDED COUMADIN/WARFARIN INR THERAPY RANGESSTANDARD DOSE: 2.0 - 3.0 Includes: PROPHYLAXIS forvenous thrombosis, systemic embolization; TREATMENT for venous thrombosis and/or pulmonary embolus.HIGH RISK: Target INR is 2.5-3.5 for patients with mechanical heart valves.POCT-GLUCOSE [id number] 06:24:00 Test Item Value Reference Range Comments POC-GLUCOSE METER (BEAKER) 105 mg/dL 70-110 TESTED AT [address] (test hyio=0229) [facility] [address] POCT-GLUCOSE [id number] 21:22:00 Test Item Value Reference Range Comments POC-GLUCOSE METER (BEAKER) 149 mg/dL 70-110 TESTED AT [address] (test ilus=2962) [facility] [address] POCT-GLUCOSE [id number] 17:11:00 Test Item Value Reference Range Comments POC-GLUCOSE METER (BEAKER) 147 mg/dL 70-110 TESTED AT [address] (test aeny=4336) [facility] [address] POCT-GLUCOSE [id number] 12:59:00 Test Item Value Reference Range Comments POC-GLUCOSE METER (BEAKER) 144 mg/dL 70-110 TESTED AT [address] (test kwna=0003) [place] [id number] POCT-GLUCOSE [id number] 09:26:00 Test Item Value Reference Range Comments POC-GLUCOSE METER (BEAKER) 135 mg/dL 70-110 TESTED AT [address] (test bkjo=5278) [place] [address] BASIC METABOLIC [id number] 04:09:00 Test Item Value Reference Range Comments SODIUM (BEAKER) (test 140 meq/L 136-145 puea=939) POTASSIUM (BEAKER) (test 3.5 meq/L 3.5-5.1 rnef=014) CHLORIDE (BEAKER) (test 109 meq/L 98-107 lryf=153) CO2 (BEAKER) (test 22 meq/L 22-29 cnzi=342) BLOOD UREA NITROGEN 23 mg/dL 7-21 (BEAKER) (test utks=837) CREATININE (BEAKER) (test 1.31 mg/dL 0.57-1.25 dtcu=408) GLUCOSE RANDOM (BEAKER) 103 mg/dL 70-105 (test izyq=411) CALCIUM (BEAKER) (test 9.0 mg/dL 8.4-10.2 llct=780) EGFR (BEAKER) (test 53 mL/min/1.73 sq m ESTIMATED GFR IS NOT mloi=1311) ACCURATE CREATININE CLEARANCE IN PREDICTING GLOMERULAR FILTRATION RATE. ESTIMATED GFR IS NOT APPLICABLE FOR DIALYSIS PATIENTS. POCT-GLUCOSE [id number] 21:24:00 Test Item Value Reference Range Comments POC-GLUCOSE METER (BEAKER) 166 mg/dL 70-110 TESTED AT [address] (test pidv=5444) [place] [id number] POCT-GLUCOSE [id number] 17:33:00 Test Item Value Reference Range Comments POC-GLUCOSE METER (BEAKER) 195 mg/dL 70-110 TESTED AT [address] (test wsfe=9553) [place] [address] POCT-GLUCOSE [id number] 13:44:00 Test Item Value Reference Range Comments POC-GLUCOSE METER (BEAKER) 213 mg/dL 70-110 TESTED AT [address] (test ftfq=7537) [place] [id number] POCT-GLUCOSE [id number] 09:29:00 Test Item Value Reference Range Comments POC-GLUCOSE METER (BEAKER) 150 mg/dL 70-[address] [facility] [address] [facility] (test omoh=1631) [facility] [address] [id number] 05:59:00 Test Item Value Reference Range Comments MAGNESIUM (BEAKER) (test 1.7 mg/dL 1.6-2.6 Specimen slightly hemolyzed zokq=561) [id number] 05:59:00 Test Item Value Reference Range Comments PHOSPHORUS (BEAKER) (test 3.2 mg/dL 2.3-4.7 Specimen slightly hemolyzed vwsb=810) BASIC METABOLIC [id number] 05:59:00 Test Item Value Reference Range Comments SODIUM (BEAKER) (test 142 meq/L 136-145 xvlf=716) POTASSIUM (BEAKER) (test 3.5 meq/L 3.5-5.1 Specimen slightly ogyo=072) hemolyzed CHLORIDE (BEAKER) (test 111 meq/L 98-107 iqqq=341) CO2 (BEAKER) (test 22 meq/L 22-29 sixd=089) BLOOD UREA NITROGEN 24 mg/dL 7-21 (BEAKER) (test ntpl=555) CREATININE (BEAKER) (test 1.32 mg/dL 0.57-1.25 Specimen slightly juky=593) hemolyzed GLUCOSE RANDOM (BEAKER) 122 mg/dL 70-105 (test uhqp=225) CALCIUM (BEAKER) (test 9.0 mg/dL 8.4-10.2 pitu=558) EGFR (BEAKER) (test 53 mL/min/1.73 sq m ESTIMATED GFR IS NOT tqke=7273) ACCURATE CREATININE CLEARANCE IN PREDICTING GLOMERULAR FILTRATION RATE. ESTIMATED GFR IS NOT APPLICABLE FOR DIALYSIS PATIENTS. B-TYPE NATRIURETIC FACTOR (BNP)2019-01-14 05:58:00 Test Item Value Reference Range Comments B-TYPE NATRIURETIC PEPTIDE (BEAKER) (test 298 pg/mL 0-100 clfp=804) CBC W/PLT COUNT & AUTO [id number] 05:35:00 Test Item Value Reference Range Comments WHITE BLOOD CELL COUNT (BEAKER) (test wacw=504) 10.1 K/ L 3.5-10.5 RED BLOOD CELL COUNT (BEAKER) (test dwoa=199) 3.57 M/ L 4.63-6.08 HEMOGLOBIN (BEAKER) (test jdal=860) 9.3 GM/DL 13.7-17.5 HEMATOCRIT (BEAKER) (test wzok=445) 30.1 % 40.1-51.0 MEAN CORPUSCULAR VOLUME (BEAKER) (test zhpd=579) 84.3 fL 79.0-92.2 MEAN CORPUSCULAR HEMOGLOBIN (BEAKER) (test 26.1 pg 25.7-32.2 ibxc=973) MEAN CORPUSCULAR HEMOGLOBIN CONC (BEAKER) (test 30.9 GM/DL 32.3-36.5 ztph=340) RED CELL DISTRIBUTION WIDTH (BEAKER) (test 17.6 % 11.6-14.4 afzm=683) PLATELET COUNT (BEAKER) (test bjex=718) 187 K/CU MM 150-450 MEAN PLATELET VOLUME (BEAKER) (test etsy=283) 9.3 fL 9.4-12.4 NUCLEATED RED BLOOD CELLS (BEAKER) (test 0 /100 WBC 0-0 awyr=522) NEUTROPHILS RELATIVE PERCENT (BEAKER) (test 69 % ttmt=617) LYMPHOCYTES RELATIVE PERCENT (BEAKER) (test 23 % rfez=447) MONOCYTES RELATIVE PERCENT (BEAKER) (test 6 % xoqo=688) EOSINOPHILS RELATIVE PERCENT (BEAKER) (test 2 % isqd=968) BASOPHILS RELATIVE PERCENT (BEAKER) (test 0 % vvfq=063) NEUTROPHILS ABSOLUTE COUNT (BEAKER) (test 6.93 K/ L 1.78-5.38 rbof=651) LYMPHOCYTES ABSOLUTE COUNT (BEAKER) (test 2.33 K/ L 1.32-3.57 ejma=060) MONOCYTES ABSOLUTE COUNT (BEAKER) (test 0.56 K/ L 0.30-0.82 ymsg=079) EOSINOPHILS ABSOLUTE COUNT (BEAKER) (test 0.23 K/ L 0.04-0.54 rbpf=667) BASOPHILS ABSOLUTE COUNT (BEAKER) (test 0.03 K/ L 0.01-0.08 axrj=531) IMMATURE GRANULOCYTES-RELATIVE PERCENT (BEAKER) 0 % 0-1 (test lzyq=0698) POCT-GLUCOSE [id number] 21:05:00 Test Item Value Reference Range Comments POC-GLUCOSE METER (BEAKER) 168 mg/dL 70-110 TESTED AT [address] (test jlfe=8302) [facility] [address] POCT-GLUCOSE [id number] 18:28:00 Test Item Value Reference Range Comments POC-GLUCOSE METER (BEAKER) 220 mg/dL 70-110 TESTED AT [address] (test tktm=6683) [facility] [address] POCT-GLUCOSE [id number] 13:39:00 Test Item Value Reference Range Comments POC-GLUCOSE METER (BEAKER) 262 mg/dL 70-110 TESTED AT [address] (test nhvh=3476) [facility] [address] POCT-GLUCOSE [id number] 09:18:00 Test Item Value Reference Range Comments POC-GLUCOSE METER (BEAKER) 135 mg/dL 70-110 TESTED AT [address] (test afsq=7802) [facility] [address] OSMOLALITY, [id number] 07:19:00 Test Item Value Reference Range Comments OSMOLALITY URINE (BEAKER) 686 mOsm/kg 40-1,400 Performed at [facility] (test nbky=821) Laboratories CALCIUM, [id number] 06:54:00 Test Item Value Reference Range Comments CALCIUM IONIZED (BEAKER) (test fyyn=472) 1.01 mmol/L 1.12-1.27 PH, BLOOD (BEAKER) (test opby=0898) 7.50 [id number] 06:20:00 Test Item Value Reference Range Comments PHOSPHORUS (BEAKER) (test ukhi=449) 3.2 mg/dL 2.3-4.7 [id number] 06:20:00 Test Item Value Reference Range Comments MAGNESIUM (BEAKER) (test jsam=041) 1.7 mg/dL 1.6-2.6 BASIC METABOLIC [id number] 06:20:00 Test Item Value Reference Range Comments SODIUM (BEAKER) (test 140 meq/L 136-145 yjdd=717) POTASSIUM (BEAKER) (test 3.5 meq/L 3.5-5.1 xipv=897) CHLORIDE (BEAKER) (test 109 meq/L 98-107 mkhf=258) CO2 (BEAKER) (test 24 meq/L 22-29 qqrh=862) BLOOD UREA NITROGEN 27 mg/dL 7-21 (BEAKER) (test gjmr=604) CREATININE (BEAKER) (test 1.35 mg/dL 0.57-1.25 kwkm=407) GLUCOSE RANDOM (BEAKER) 135 mg/dL 70-105 (test jsyi=645) CALCIUM (BEAKER) (test 9.1 mg/dL 8.4-10.2 fuqm=178) EGFR (BEAKER) (test 52 mL/min/1.73 sq m ESTIMATED GFR IS NOT ymrp=2602) ACCURATE CREATININE CLEARANCE IN PREDICTING GLOMERULAR FILTRATION RATE. ESTIMATED GFR IS NOT APPLICABLE FOR DIALYSIS PATIENTS. CBC W/PLT COUNT & AUTO [id number] 05:44:00 Test Item Value Reference Range Comments WHITE BLOOD CELL COUNT (BEAKER) (test ejoz=569) 7.2 K/ L 3.5-10.5 RED BLOOD CELL COUNT (BEAKER) (test dahs=645) 3.47 M/ L 4.63-6.08 HEMOGLOBIN (BEAKER) (test ettf=432) 9.0 GM/DL 13.7-17.5 HEMATOCRIT (BEAKER) (test eyuu=280) 29.2 % 40.1-51.0 MEAN CORPUSCULAR VOLUME (BEAKER) (test isxc=797) 84.1 fL 79.0-92.2 MEAN CORPUSCULAR HEMOGLOBIN (BEAKER) (test 25.9 pg 25.7-32.2 fusv=972) MEAN CORPUSCULAR HEMOGLOBIN CONC (BEAKER) (test 30.8 GM/DL 32.3-36.5 baqk=313) RED CELL DISTRIBUTION WIDTH (BEAKER) (test 18.0 % 11.6-14.4 ddvm=504) PLATELET COUNT (BEAKER) (test oees=549) 195 K/CU MM 150-450 MEAN PLATELET VOLUME (BEAKER) (test djwj=572) 9.1 fL 9.4-12.4 NUCLEATED RED BLOOD CELLS (BEAKER) (test 0 /100 WBC 0-0 rgjq=909) NEUTROPHILS RELATIVE PERCENT (BEAKER) (test 53 % zpgt=895) LYMPHOCYTES RELATIVE PERCENT (BEAKER) (test 35 % fepn=299) MONOCYTES RELATIVE PERCENT (BEAKER) (test 8 % cfts=240) EOSINOPHILS RELATIVE PERCENT (BEAKER) (test 4 % fpva=309) BASOPHILS RELATIVE PERCENT (BEAKER) (test 1 % gxqt=949) NEUTROPHILS ABSOLUTE COUNT (BEAKER) (test 3.80 K/ L 1.78-5.38 ldqj=106) LYMPHOCYTES ABSOLUTE COUNT (BEAKER) (test 2.52 K/ L 1.32-3.57 ioth=258) MONOCYTES ABSOLUTE COUNT (BEAKER) (test 0.55 K/ L 0.30-0.82 evqb=545) EOSINOPHILS ABSOLUTE COUNT (BEAKER) (test 0.30 K/ L 0.04-0.54 elnd=888) BASOPHILS ABSOLUTE COUNT (BEAKER) (test 0.04 K/ L 0.01-0.08 ncoa=937) IMMATURE GRANULOCYTES-RELATIVE PERCENT (BEAKER) 0 % 0-1 (test spkb=4782) MR, BRAIN, [id number] 04:02:00FINAL REPORT MR, BRAIN , WITH \T\ WITHOUT CONTRAST INDICATION: large renal mass, metastatic workup Technique: MRI of the brain utilizing axial T1, T2, FLAIR, GRE, DWI, sagittal T1 ; and postgadolinium axial, sagittal, and coronal T1-weighted images. COMPARISON : None FINDINGS:Brainparenchyma is normal in morphology. Midline structures are [...] of intracranial metastatic disease Signed: Jeff Sanford MDReport Verified Date/Time: 01/13/2019 04:02:20 Reading Location: [address] Neuro Reading Room POCT-GLUCOSE [id number] 22:05:00 Test Item Value Reference Range Comments POC-GLUCOSE METER (BEAKER) 187 mg/dL 70-[address] [facility] [address] [facility] (test bkyb=5282) [facility] [address] POCT-GLUCOSE [id number] 18:17:00 Test Item Value Reference Range Comments POC-GLUCOSE METER (BEAKER) 137 mg/dL 70-110 TESTED AT [address] (test zisl=9075) [facility] [address] POCT-GLUCOSE [id number] 13:08:00 Test Item Value Reference Range Comments POC-GLUCOSE METER (BEAKER) 221 mg/dL 70-110 TESTED AT [address] (test fzyi=5913) [facility] [address] CT, CHEST, WITHOUT [id number] 13:03:00FINAL REPORT CT of the Chest dated 01/12/2019 [...] rest of the lungs are clear. No nodular , mass lesion or airspace disease is noted. No interstitial disease or bronchiectasis is present. No pleural effusion or pleural based mass is seen.Visualized upper abdomen demonstrates a 4.9 x 6.1 cm mass in the mid upper pole right kidney. Impression: 1. Right renal mass.2. Dependent atelectasis in both lungs. Signed: Lurdes Fernandes MDReport Verified Date/Time: 01/12/2019 13:03: 39 Reading Location: [facility] B1 C013Y CT Body Reading Room POCT-GLUCOSE [id number] 07:53:00 Test Item Value Reference Range Comments POC-GLUCOSE METER (BEAKER) 156 mg/dL 70-110 TESTED AT [address] (test wltn=4191) [facility] [address] BASIC METABOLIC [id number] 03:16:00 Test Item Value Reference Range Comments SODIUM (BEAKER) (test 138 meq/L 136-145 eres=710) POTASSIUM (BEAKER) (test 3.6 meq/L 3.5-5.1 zped=989) CHLORIDE (BEAKER) (test 106 meq/L 98-107 ragz=301) CO2 (BEAKER) (test 22 meq/L 22-29 kncd=789) BLOOD UREA NITROGEN 31 mg/dL 7-21 (BEAKER) (test wpqe=212) CREATININE (BEAKER) (test 1.44 mg/dL 0.57-1.25 sfls=004) GLUCOSE RANDOM (BEAKER) 123 mg/dL 70-105 (test wwcm=191) CALCIUM (BEAKER) (test 9.1 mg/dL 8.4-10.2 iftl=233) EGFR (BEAKER) (test 48 mL/min/1.73 sq m ESTIMATED GFR IS NOT urfi=0623) ACCURATE CREATININE CLEARANCE IN PREDICTING GLOMERULAR FILTRATION RATE. ESTIMATED GFR IS NOT APPLICABLE FOR DIALYSIS PATIENTS. POCT-GLUCOSE [id number] 21:12:00 Test Item Value Reference Range Comments POC-GLUCOSE METER (BEAKER) 159 mg/dL 70-[address] [facility] [address] [facility] (test lflz=8317) [facility] [address] POCT-GLUCOSE [id number] 17:44:00 Test Item Value Reference Range Comments POC-GLUCOSE METER (BEAKER) 158 mg/dL 70-[address] [facility] [address] [facility] (test lduc=8477) [facility] [address] U/S, RENAL, [id number] 10:50:00Reason for exam:->AKIShould this be performed at the bedside?->YesFINAL REPORT Renal ultrasound. Clinical History: KATHLEEN. Comparison Study: November 13, 2018. Findings : The right kidney measures 10.2 x 5.8 x 4.4 cm and left kidney measures 11.4 x4.4 x 4.5 cm. A 5.2 x 4.7 x 4.8 cm mass is seen in the right kidney, recently biopsied. There is no evidence of hydronephrosis or nephrolithiasis on either side. The echogenicity is normal bilaterally.The cortical thickness on the right side is 1.1 cm and on the left side is 1.2 cm. Color flow is documented to both kidneys. The bladder is partially filled with urine. Impression: Right renal mass, previously biopsied. No hydronephrosis. Signed: Cedric Ferro MDReport Verified Date/Time: 01/11/2019 10:50:26 Reading Location: [facility] [id number] Ortho Consult Reading Room MR, MRA ABDOMEN, WITHOUT FOLLOW WITH [id number] 08:43:00FINAL REPORT MRA of the abdominal aorta and [...] nephrotoxic contrast agent. TECHNIQUE: [employer] MRI scanner. Limited images were performed for planning purposes. A non-ECG gated, gadolinium enhanced 3-D MRA and 3-D phase contrast MRA were performed. Multi-planar reconstruction were performed using an independent workstation. Post T1 images were also obtained. Please refer to the contrast sheet scanned in the EPIC system for the amount and routeof contrast given. Patient has limited breath-holding capability. FINDINGS: THIS STUDY IS NOT OPTIMISED IN THE ASSESSMENT OF EXTRAVASCULAR STRUCTURES. See prior CT scan for full details. In the available images, no gross abnormality is identified in the liver and the spleen. In the SSFP axial images,for example, at series 5, a 9 mm [...] are seen in the left kidney, already beendescribed in prior CT examination. Again tissue characterisation [...] dimensions of the abdominal aorta are as follows : 2.3 cm at the mesenteric level; 2.2 cm at the renal level; and 2.2 cm at the aortic bifurcation. The common iliac, and the visualised external iliac arteries , bilaterally,are widely patent. The coeliac axis, SMA, DARRION [...] echocardiography. 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 CONCLUSIONS: 1. Unremarkable abdominal aorta. Mild atherosclerosis is seen at themesenteric level. No ectasia or aneurysmal dilation is seen. Quantitative dimensions of the abdominal aorta are as described above. 2. Widely patent mesenteric and renal arteries. 3. Patient is known to have a mass in the right kidney. This study is not optimised in the assessment of extravascular structures. Patient already had complete CT scan performed. Refer to formal dictation by ConsultantRadiologist for details. 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 Signed: Yoshi Legereport Verified Date/Time: 01/11 08:43:33 Reading Location: [place] [address] Cardiology MRI POCT-GLUCOSE [id number] 07:57:00 Test Item Value Reference Range Comments POC-GLUCOSE METER (BEAKER) 137 mg/dL 70-[address] [facility] [address] [facility] (test bbgg=[id number]) [facility] [address] BASIC METABOLIC [id number] 07:37:00 Test Item Value Reference Range Comments SODIUM (BEAKER) (test 141 meq/L 136-145 pjcl=543) POTASSIUM (BEAKER) (test 4.2 meq/L 3.5-5.1 axez=741) CHLORIDE (BEAKER) (test 106 meq/L 98-107 wcqh=415) CO2 (BEAKER) (test 25 meq/L 22-29 ncwg=922) BLOOD UREA NITROGEN 35 mg/dL 7-21 (BEAKER) (test nvfy=102) CREATININE (BEAKER) (test 1.67 mg/dL 0.57-1.25 mtoe=150) GLUCOSE RANDOM (BEAKER) 121 mg/dL 70-105 (test naqc=140) CALCIUM (BEAKER) (test 9.3 mg/dL 8.4-10.2 yleb=605) EGFR (BEAKER) (test 40 mL/min/1.73 sq m ESTIMATED GFR IS NOT gacu=3219) ACCURATE CREATININE CLEARANCE IN PREDICTING GLOMERULAR FILTRATION RATE. ESTIMATED GFR IS NOT APPLICABLE FOR DIALYSIS PATIENTS. CBC W/PLT COUNT & AUTO [id number] 06:21:00 Test Item Value Reference Range Comments WHITE BLOOD CELL COUNT (BEAKER) (test cswa=407) 7.3 K/ L 3.5-10.5 RED BLOOD CELL COUNT (BEAKER) (test mvaj=271) 3.65 M/ L 4.63-6.08 HEMOGLOBIN (BEAKER) (test gtmo=918) 9.7 GM/DL 13.7-17.5 HEMATOCRIT (BEAKER) (test pdkg=874) 30.8 % 40.1-51.0 MEAN CORPUSCULAR VOLUME (BEAKER) (test cuhn=279) 84.4 fL 79.0-92.2 MEAN CORPUSCULAR HEMOGLOBIN (BEAKER) (test 26.6 pg 25.7-32.2 ewtb=058) MEAN CORPUSCULAR HEMOGLOBIN CONC (BEAKER) (test 31.5 GM/DL 32.3-36.5 aiwr=521) RED CELL DISTRIBUTION WIDTH (BEAKER) (test 18.2 % 11.6-14.4 qtms=360) PLATELET COUNT (BEAKER) (test qjzc=613) 229 K/CU MM 150-450 MEAN PLATELET VOLUME (BEAKER) (test phuo=036) 9.7 fL 9.4-12.4 NUCLEATED RED BLOOD CELLS (BEAKER) (test 0 /100 WBC 0-0 rika=723) NEUTROPHILS RELATIVE PERCENT (BEAKER) (test 55 % gmtu=805) LYMPHOCYTES RELATIVE PERCENT (BEAKER) (test 31 % erqc=479) MONOCYTES RELATIVE PERCENT (BEAKER) (test 8 % gywi=930) EOSINOPHILS RELATIVE PERCENT (BEAKER) (test 5 % lfbq=295) BASOPHILS RELATIVE PERCENT (BEAKER) (test 1 % evmt=562) NEUTROPHILS ABSOLUTE COUNT (BEAKER) (test 3.99 K/ L 1.78-5.38 cogf=311) LYMPHOCYTES ABSOLUTE COUNT (BEAKER) (test 2.28 K/ L 1.32-3.57 dtvt=537) MONOCYTES ABSOLUTE COUNT (BEAKER) (test 0.59 K/ L 0.30-0.82 cwyq=810) EOSINOPHILS ABSOLUTE COUNT (BEAKER) (test 0.37 K/ L 0.04-0.54 qfuq=169) BASOPHILS ABSOLUTE COUNT (BEAKER) (test 0.05 K/ L 0.01-0.08 rvcv=674) IMMATURE GRANULOCYTES-RELATIVE PERCENT (BEAKER) 0 % 0-1 (test zoax=3439) POCT-GLUCOSE [id number] 21:13:00 Test Item Value Reference Range Comments POC-GLUCOSE METER (BEAKER) 188 mg/dL 70-[address] [facility] [address] [facility] (test ijqu=1202) [facility] [address] POCT-GLUCOSE [id number] 18:14:00 Test Item Value Reference Range Comments POC-GLUCOSE METER (BEAKER) 159 mg/dL 70-[address] [facility] [address] [facility] (test drau=4343) [facility] [address] POCT-GLUCOSE [id number] 12:15:00 Test Item Value Reference Range Comments POC-GLUCOSE METER (BEAKER) 174 mg/dL 70-[address] [facility] [address] [facility] (test gzvh=3851) [facility] [address] BASIC METABOLIC [id number] 11:21:00 Test Item Value Reference Range Comments SODIUM (BEAKER) (test 142 meq/L 136-145 mfxo=904) POTASSIUM (BEAKER) (test 3.9 meq/L 3.5-5.1 zktw=734) CHLORIDE (BEAKER) (test 112 meq/L 98-107 eoua=773) CO2 (BEAKER) (test 22 meq/L 22-29 myfl=313) BLOOD UREA NITROGEN 35 mg/dL 7-21 (BEAKER) (test rgyi=900) CREATININE (BEAKER) (test 1.57 mg/dL 0.57-1.25 oamu=856) GLUCOSE RANDOM (BEAKER) 149 mg/dL 70-105 (test hosn=875) CALCIUM (BEAKER) (test 8.3 mg/dL 8.4-10.2 duvk=737) EGFR (BEAKER) (test 43 mL/min/1.73 sq m ESTIMATED GFR IS NOT kdrv=6412) ACCURATE CREATININE CLEARANCE IN PREDICTING GLOMERULAR FILTRATION RATE. ESTIMATED GFR IS NOT APPLICABLE FOR DIALYSIS PATIENTS. CBC W/PLT COUNT & AUTO [id number] 09:55:00 Test Item Value Reference Range Comments WHITE BLOOD CELL COUNT (BEAKER) (test qzgl=888) 7.2 K/ L 3.5-10.5 RED BLOOD CELL COUNT (BEAKER) (test qfgx=957) 3.54 M/ L 4.63-6.08 HEMOGLOBIN (BEAKER) (test zyfm=065) 9.3 GM/DL 13.7-17.5 HEMATOCRIT (BEAKER) (test ebbj=795) 30.0 % 40.1-51.0 MEAN CORPUSCULAR VOLUME (BEAKER) (test pkhi=548) 84.7 fL 79.0-92.2 MEAN CORPUSCULAR HEMOGLOBIN (BEAKER) (test 26.3 pg 25.7-32.2 ekml=702) MEAN CORPUSCULAR HEMOGLOBIN CONC (BEAKER) (test 31.0 GM/DL 32.3-36.5 fqwp=953) RED CELL DISTRIBUTION WIDTH (BEAKER) (test 18.1 % 11.6-14.4 bjxt=972) PLATELET COUNT (BEAKER) (test hpej=156) 222 K/CU MM 150-450 MEAN PLATELET VOLUME (BEAKER) (test asbm=080) 9.2 fL 9.4-12.4 NUCLEATED RED BLOOD CELLS (BEAKER) (test 0 /100 WBC 0-0 cthy=077) NEUTROPHILS RELATIVE PERCENT (BEAKER) (test 62 % pksy=154) LYMPHOCYTES RELATIVE PERCENT (BEAKER) (test 26 % hvhp=507) MONOCYTES RELATIVE PERCENT (BEAKER) (test 8 % mmxq=788) EOSINOPHILS RELATIVE PERCENT (BEAKER) (test 3 % zpai=668) BASOPHILS RELATIVE PERCENT (BEAKER) (test 1 % htry=416) NEUTROPHILS ABSOLUTE COUNT (BEAKER) (test 4.43 K/ L 1.78-5.38 dpkl=787) LYMPHOCYTES ABSOLUTE COUNT (BEAKER) (test 1.85 K/ L 1.32-3.57 tauj=673) MONOCYTES ABSOLUTE COUNT (BEAKER) (test 0.57 K/ L 0.30-0.82 ejkx=570) EOSINOPHILS ABSOLUTE COUNT (BEAKER) (test 0.24 K/ L 0.04-0.54 frmc=485) BASOPHILS ABSOLUTE COUNT (BEAKER) (test 0.04 K/ L 0.01-0.08 yaxz=826) IMMATURE GRANULOCYTES-RELATIVE PERCENT (BEAKER) 1 % 0-1 (test sgpm=2702) BASIC METABOLIC [id number] 23:02:00 Test Item Value Reference Range Comments SODIUM (BEAKER) (test 137 meq/L 136-145 itmg=840) POTASSIUM (BEAKER) (test 4.6 meq/L 3.5-5.1 hlvx=551) CHLORIDE (BEAKER) (test 109 meq/L 98-107 ainc=597) CO2 (BEAKER) (test 22 meq/L 22-29 zain=663) BLOOD UREA NITROGEN 38 mg/dL 7-21 (BEAKER) (test gyxz=050) CREATININE (BEAKER) (test 1.91 mg/dL 0.57-1.25 ilhu=991) GLUCOSE RANDOM (BEAKER) 157 mg/dL 70-105 (test xgym=833) CALCIUM (BEAKER) (test 8.9 mg/dL 8.4-10.2 rprl=672) EGFR (BEAKER) (test 35 mL/min/1.73 sq m ESTIMATED GFR IS NOT cpem=3752) ACCURATE CREATININE CLEARANCE IN PREDICTING GLOMERULAR FILTRATION RATE. ESTIMATED GFR IS NOT APPLICABLE FOR DIALYSIS PATIENTS. POCT-GLUCOSE [id number] 21:56:00 Test Item Value Reference Range Comments POC-GLUCOSE METER (BEAKER) 161 mg/dL 70-110 TESTED AT [address] (test ewny=8771) [place] [address] POCT-GLUCOSE [id number] 13:45:00 Test Item Value Reference Range Comments POC-GLUCOSE METER (BEAKER) 164 mg/dL 70-110 TESTED AT [address] (test cgih=1308) [place] [address] [id number] 10:16:00 Test Item Value Reference Range Comments POTASSIUM (BEAKER) (test 5.5 meq/L 3.5-5.1 Specimen slightly hemolyzed bkjg=922) CALCIUM, [id number] 07:07:00 Test Item Value Reference Range Comments CALCIUM IONIZED (BEAKER) (test fwxk=420) 1.05 mmol/L 1.12-1.27 PH, BLOOD (BEAKER) (test tbid=1388) 7.31 [id number] 06:19:00 Test Item Value Reference Range Comments POTASSIUM (BEAKER) (test kodn=567) 5.3 meq/L 3.5-5.1 POCT-GLUCOSE [id number] 06:17:00 Test Item Value Reference Range Comments POC-GLUCOSE METER (BEAKER) 177 mg/dL 70-110 TESTED AT [address] (test axdr=2571) [place] [address] [id number] 05:44:00 Test Item Value Reference Range Comments PHOSPHORUS (BEAKER) (test wisl=548) 4.0 mg/dL 2.3-4.7 [id number] 05:44:00 Test Item Value Reference Range Comments MAGNESIUM (BEAKER) (test oyxx=100) 1.6 mg/dL 1.6-2.6 COMPREHENSIVE METABOLIC [id number] 05:44:00 Test Item Value Reference Range Comments TOTAL PROTEIN (BEAKER) 7.3 gm/dL 6.0-8.3 (test zvok=883) ALBUMIN (BEAKER) (test 3.8 g/dL 3.5-5.0 natb=1709) ALKALINE PHOSPHATASE 91 U/L 40-150 (BEAKER) (test vvlc=420) BILIRUBIN TOTAL (BEAKER) 0.5 mg/dL 0.2-1.2 (test hluy=789) SODIUM (BEAKER) (test 139 meq/L 136-145 jocf=134) POTASSIUM (BEAKER) (test 5.4 meq/L 3.5-5.1 ohsk=314) CHLORIDE (BEAKER) (test 110 meq/L 98-107 snzt=658) CO2 (BEAKER) (test 20 meq/L 22-29 syfp=736) BLOOD UREA NITROGEN 45 mg/dL 7-21 (BEAKER) (test yjff=890) CREATININE (BEAKER) (test 2.45 mg/dL 0.57-1.25 sgys=305) GLUCOSE RANDOM (BEAKER) 177 mg/dL 70-105 (test rxyi=466) CALCIUM (BEAKER) (test 9.5 mg/dL 8.4-10.2 vlsy=771) AST (SGOT) (BEAKER) (test 11 U/L 5-34 amqe=815) ALT (SGPT) (BEAKER) (test 9 U/L 6-55 pokg=614) EGFR (BEAKER) (test 26 mL/min/1.73 sq m ESTIMATED GFR IS NOT zfsx=8652) ACCURATE CREATININE CLEARANCE IN PREDICTING GLOMERULAR FILTRATION RATE. ESTIMATED GFR IS NOT APPLICABLE FOR DIALYSIS PATIENTS. B-TYPE NATRIURETIC FACTOR (BNP)2019-01-09 05:34:00 Test Item Value Reference Range Comments B-TYPE NATRIURETIC PEPTIDE (BEAKER) (test 248 pg/mL 0-100 povn=899) CBC W/PLT COUNT & AUTO [id number] 05:14:00 Test Item Value Reference Range Comments WHITE BLOOD CELL COUNT (BEAKER) (test coow=965) 9.4 K/ L 3.5-10.5 RED BLOOD CELL COUNT (BEAKER) (test xbwk=511) 3.79 M/ L 4.63-6.08 HEMOGLOBIN (BEAKER) (test cuqb=962) 9.8 GM/DL 13.7-17.5 HEMATOCRIT (BEAKER) (test uuqg=902) 32.0 % 40.1-51.0 MEAN CORPUSCULAR VOLUME (BEAKER) (test asso=290) 84.4 fL 79.0-92.2 MEAN CORPUSCULAR HEMOGLOBIN (BEAKER) (test 25.9 pg 25.7-32.2 hhhj=969) MEAN CORPUSCULAR HEMOGLOBIN CONC (BEAKER) (test 30.6 GM/DL 32.3-36.5 ykju=154) RED CELL DISTRIBUTION WIDTH (BEAKER) (test 17.5 % 11.6-14.4 sbwf=305) PLATELET COUNT (BEAKER) (test lkjs=188) 232 K/CU MM 150-450 MEAN PLATELET VOLUME (BEAKER) (test niwl=188) 9.3 fL 9.4-12.4 NUCLEATED RED BLOOD CELLS (BEAKER) (test 0 /100 WBC 0-0 gjlt=406) NEUTROPHILS RELATIVE PERCENT (BEAKER) (test 78 % hnsb=104) LYMPHOCYTES RELATIVE PERCENT (BEAKER) (test 13 % lbii=172) MONOCYTES RELATIVE PERCENT (BEAKER) (test 4 % skhp=397) EOSINOPHILS RELATIVE PERCENT (BEAKER) (test 4 % vrpp=278) BASOPHILS RELATIVE PERCENT (BEAKER) (test 0 % eeiw=389) NEUTROPHILS ABSOLUTE COUNT (BEAKER) (test 7.31 K/ L 1.78-5.38 bqut=876) LYMPHOCYTES ABSOLUTE COUNT (BEAKER) (test 1.24 K/ L 1.32-3.57 ltjd=694) MONOCYTES ABSOLUTE COUNT (BEAKER) (test 0.37 K/ L 0.30-0.82 ffmn=434) EOSINOPHILS ABSOLUTE COUNT (BEAKER) (test 0.39 K/ L 0.04-0.54 cgnb=149) BASOPHILS ABSOLUTE COUNT (BEAKER) (test 0.04 K/ L 0.01-0.08 ljik=238) IMMATURE GRANULOCYTES-RELATIVE PERCENT (BEAKER) 0 % 0-1 (test mmlw=0705) URINALYSIS W/ [id number] 00:47:00 Test Item Value Reference Range Comments COLOR (BEAKER) (test wyhc=906) Yellow CLARITY (BEAKER) (test damb=329) Cloudy SPECIFIC GRAVITY UA (BEAKER) (test vtya=838) 1.014 1.001-1.035 PH UA (BEAKER) (test mlin=896) 7.5 5.0-8.0 PROTEIN UA (BEAKER) (test kdnn=666) 50 mg/dL Negative GLUCOSE UA (BEAKER) (test qxfe=355) Negative Negative KETONES UA (BEAKER) (test jyrq=102) Negative Negative BILIRUBIN UA (BEAKER) (test scnq=805) Negative Negative BLOOD UA (BEAKER) (test qare=033) Small Negative NITRITE UA (BEAKER) (test sjpq=514) Negative Negative LEUKOCYTE ESTERASE UA (BEAKER) (test xkvm=067) Large Negative UROBILINOGEN UA (BEAKER) (test xagj=087) 0.2 mg/dL 0.2-1.0 RBC UA (BEAKER) (test vcjr=357) 71 /HPF WBC UA (BEAKER) (test puua=927) 1129 /HPF BACTERIA (BEAKER) (test cfwz=901) Many MUCUS (BEAKER) (test trzi=9267) Rare SQUAMOUS EPITHELIAL (BEAKER) (test lojy=329) 1 /HPF HYALINE CASTS (BEAKER) (test bjdi=464) 19 /LPF SOURCE(BEAKER) (test yxqr=7338) Urine, Voided [id number] 00:34:00 Test Item Value Reference Range Comments POTASSIUM (BEAKER) (test bpta=814) 5.4 meq/L 3.5-5.1 RAD, CHEST, 1 VIEW, NON [id number] 23:33:00Reason for exam:->edemaShould this be performed at the bedside?->YesFINAL REPORT Chest, 1 view. History: Edema. Comparison: 11/21/1989. Impression: Please note that the costophrenic angles are excluded bilaterally limiting evaluation. The tracheais midline. There has been interval reduction in opacities present within the left lower lung zone suggesting a resolving infectious/inflammatory process. There is no evidence for new large focal consolidation, pneumothorax, or significant pleural effusion. The cardiomediastinal silhouette is stable in appearance. No acute osseous abnormalities identified. Signed: Brandon Devrieseport Verified Date/Time: 01/08/2019 23:33:47 Reading Location: [facility] B1 C013W Consult Reading Room POCT-GLUCOSE [id number] 21:58:00 Test Item Value Reference Range Comments POC-GLUCOSE METER (BEAKER) 186 mg/dL 70-[address] [facility] [address] [facility] (test jfjs=9693) [facility] [address] EOSINOPHIL SMEAR, [id number] 20:29:00 Test Item Value Reference Range Comments EOSINOPHIL SMEAR, URINE (BEAKER) (test No EOS seen No EOS seen apva=9023) BASIC METABOLIC [id number] 20:08:00 Test Item Value Reference Range Comments SODIUM (BEAKER) (test 134 meq/L 136-145 kgas=709) POTASSIUM (BEAKER) (test 5.5 meq/L 3.5-5.1 ntco=041) CHLORIDE (BEAKER) (test 108 meq/L 98-107 oncq=512) CO2 (BEAKER) (test 19 meq/L 22-29 qncz=223) BLOOD UREA NITROGEN 47 mg/dL 7-21 (BEAKER) (test cgjh=008) CREATININE (BEAKER) (test 2.51 mg/dL 0.57-1.25 frga=256) GLUCOSE RANDOM (BEAKER) 185 mg/dL 70-105 (test mgux=319) CALCIUM (BEAKER) (test 9.2 mg/dL 8.4-10.2 dgwn=020) EGFR (BEAKER) (test 25 mL/min/1.73 sq m ESTIMATED GFR IS NOT cqon=4578) ACCURATE CREATININE CLEARANCE IN PREDICTING GLOMERULAR FILTRATION RATE. ESTIMATED GFR IS NOT APPLICABLE FOR DIALYSIS PATIENTS. Thank you for drawing the blood. He requires strict monitoring of K in preparation for OR tomorrow.HEMOGLOBIN AND [id number] 19:51:00 Test Item Value Reference Range Comments HEMOGLOBIN (BEAKER) (test thtq=744) 8.0 GM/DL 13.7-17.5 HEMATOCRIT (BEAKER) (test koys=216) 26.2 % 40.1-51.0 CREATININE, RANDOM [id number] 19:03:00 Test Item Value Reference Range Comments CREATININE URINE (BEAKER) (test eziw=423) 89.1 mg/dL Reference Range: No NormalsPROTEIN, RANDOM [id number] 19:03:00 Test Item Value Reference Range Comments PROTEIN, URINE (BEAKER) (test ivxz=2354) 19 mg/dL 0-14 SODIUM, RANDOM [id number] 19:03:00 Test Item Value Reference Range Comments SODIUM URINE (BEAKER) (test nlxk=212) 90 meq/L Reference Range: No NormalsPOCT-GLUCOSE [id number] 16:48:00 Test Item Value Reference Range Comments POC-GLUCOSE METER (BEAKER) 259 mg/dL 70-[address] [facility] [address] [facility] (test wvsj=0800) [facility] [address] B-TYPE NATRIURETIC FACTOR (BNP)2019-01-08 16:33:00 Test Item Value Reference Range Comments B-TYPE NATRIURETIC PEPTIDE (BEAKER) (test 219 pg/mL 0-100 uexc=227) BASIC METABOLIC [id number] 16:32:00 Test Item Value Reference Range Comments SODIUM (BEAKER) (test 134 meq/L 136-145 oroy=905) POTASSIUM (BEAKER) (test 5.7 meq/L 3.5-5.1 qvvk=796) CHLORIDE (BEAKER) (test 108 meq/L 98-107 gwul=604) CO2 (BEAKER) (test 19 meq/L 22-29 bbhf=737) BLOOD UREA NITROGEN 49 mg/dL 7-21 (BEAKER) (test qdot=362) CREATININE (BEAKER) (test 2.68 mg/dL 0.57-1.25 fjyp=543) GLUCOSE RANDOM (BEAKER) 217 mg/dL 70-105 (test lflu=439) CALCIUM (BEAKER) (test 9.3 mg/dL 8.4-10.2 hxbo=113) EGFR (BEAKER) (test 23 mL/min/1.73 sq m ESTIMATED GFR IS NOT bcgn=8455) ACCURATE CREATININE CLEARANCE IN PREDICTING GLOMERULAR FILTRATION RATE. ESTIMATED GFR IS NOT APPLICABLE FOR DIALYSIS PATIENTS. URIC [id number] 16:30:00 Test Item Value Reference Range Comments URIC ACID (BEAKER) (test fviq=591) 8.3 mg/dL 2.6-7.2 POCT-GLUCOSE [id number] 10:00:00 Test Item Value Reference Range Comments POC-GLUCOSE METER (BEAKER) 206 mg/dL 70-[address] [facility] [address] (test hwpr=2454) [facility] [address] BASIC METABOLIC [id number] 09:58:00 Test Item Value Reference Range Comments SODIUM (BEAKER) (test 133 meq/L 136-145 padl=211) POTASSIUM (BEAKER) (test 6.3 meq/L 3.5-5.1 qsmo=551) CHLORIDE (BEAKER) (test 107 meq/L 98-107 gtcz=923) CO2 (BEAKER) (test 20 meq/L 22-29 thoc=752) BLOOD UREA NITROGEN 49 mg/dL 7-21 (BEAKER) (test pndy=595) CREATININE (BEAKER) (test 2.70 mg/dL 0.57-1.25 ualw=657) GLUCOSE RANDOM (BEAKER) 171 mg/dL 70-105 (test dksp=131) CALCIUM (BEAKER) (test 9.1 mg/dL 8.4-10.2 iija=536) EGFR (BEAKER) (test 23 mL/min/1.73 sq m ESTIMATED GFR IS NOT vyen=7605) ACCURATE CREATININE CLEARANCE IN PREDICTING GLOMERULAR FILTRATION RATE. ESTIMATED GFR IS NOT APPLICABLE FOR DIALYSIS PATIENTS. [id number] 09:33:00 Test Item Value Reference Range Comments PARTIAL THROMBOPLASTIN TIME (BEAKER) (test 44.8 seconds 22.5-36.0 slkh=525) PROTHROMBIN [id number] 09:32:00 Test Item Value Reference Range Comments PROTIME (BEAKER) (test gtmq=081) 17.4 seconds 11.7-14.7 INR (BEAKER) (test nkvk=407) 1.4 <=5.9 RECOMMENDED COUMADIN/WARFARIN INR THERAPY RANGESSTANDARD DOSE: 2.0 - 3.0 Includes: PROPHYLAXIS forvenous thrombosis, systemic embolization; TREATMENT for venous thrombosis and/or pulmonary embolus.HIGH RISK: Target INR is 2.5-3.5 for patients with mechanical heart valves.HEMOGLOBIN AND [id number] 09 :24:00 Test Item Value Reference Range Comments HEMOGLOBIN (BEAKER) (test mqcs=058) 8.0 GM/DL 13.7-17.5 HEMATOCRIT (BEAKER) (test hyzs=874) 27.2 % 40.1-51.0 [id number] 11:10:00Medical Cytology Report Case: [id number] Authorizing Provider: Gianna Peter MD Collected: 11/28/2018 5818 Ordering Location: [address] Received: 11/28/2018 1658 Service Pathologist: Chelsea Curran MD Specimen: Kidney , Right RIGHT KIDNEY MASS, FNA AND CORE BIOPSY BY RADIOLOGIST (FILOMENA) (DIRECT SMEARS AND CELL BLOCK OF ASPIRATE): - FEW ATYPICAL CELLS, COMPATIBLE WITH RENAL CELL CARCINOMA (see comment) Signing Pathologist Direct Phone Line: [phone] The smears show few scattered atypical cells with foamy cytoplasm and a rare sukhwinder associated with vascular structures. The core biopsy [...] cell carcinoma. Clinical and radiologic correlation is recommended.25335, 18207, 78708 x 2; 03835; 63220 6 cm right kidney massRIGHT KIDNEYMASS FNA AND CORE BIOPSYPrepared 6 direct smear slides and cell block(A3) using collodion bag from material collected in RPMI Core biopsy collected in formalin contained two white/red fragments measuring 0.8 cm each; one 0.4 cm red fragment; one mostly white 0.9 cm fragment, and three red ragged fragments measuring 0.2 cm each, submitted entirely in A2.Collected: [id number]: [id number] FEW CELLS SUSPICIOUS FOR RENAL CELL CARCINOMA (5:17PM, 11/28/2018, )The interpretation of this case included the use of immunohistochemistry or special stains. PAX-8 and CAM5.2Immunohistochemistry technical testing was performed at [facility], Pathology Laboratory where it was developed and its performance characteristics were determined. It has not been cleared or approved by the U.S. Food and Drug Administration. The FDA has determined that such clearance or approval is not necessary.The test is used for clinical purposes. It should not be regarded as investigational or for research. This laboratory is certified under the Clinical Laboratory Improvement Amendments of 1988 (CLIA-88)as qualified to perform high complexity clinical laboratory testing.[facility], Department of Pathology, [address] [place] [address], [facility], [address] [place] [address], [facility], [address] [place] [address], WOZT-GLUCOSE [id number] 17:10:00 Test Item Value Reference Range Comments POC-GLUCOSE METER (BEAKER) 153 mg/dL 70-110 TESTED AT [address] (test jnch=0216) [place] [address] POCT-GLUCOSE [id number] 11:57:00 Test Item Value Reference Range Comments POC-GLUCOSE METER (BEAKER) 128 mg/dL 70-110 TESTED AT [address] (test pecx=9816) [place] [address] POCT-GLUCOSE [id number] 07:52:00 Test Item Value Reference Range Comments POC-GLUCOSE METER (BEAKER) 121 mg/dL 70-110 TESTED AT [address] (test kfsc=6173) [place] [address] POCT-GLUCOSE [id number] 20:55:00 Test Item Value Reference Range Comments POC-GLUCOSE METER (BEAKER) 134 mg/dL 70-110 TESTED AT [address] (test dzui=5205) [place] [address] POCT-GLUCOSE [id number] 18:19:00 Test Item Value Reference Range Comments POC-GLUCOSE METER (BEAKER) 137 mg/dL 70-110 TESTED AT [address] (test cplq=9393) [place] [address] POCT-GLUCOSE [id number] 11:33:00 Test Item Value Reference Range Comments POC-GLUCOSE METER (BEAKER) 188 mg/dL 70-110 TESTED AT [address] (test gyjw=2384) [place] [address] POCT-GLUCOSE [id number] 07:44:00 Test Item Value Reference Range Comments POC-GLUCOSE METER (BEAKER) 143 mg/dL 70-[address] [facility] [address] [facility] (test occn=4539) [facility] [address] POCT-GLUCOSE [id number] 21:19:00 Test Item Value Reference Range Comments POC-GLUCOSE METER (BEAKER) 156 mg/dL 70-110 TESTED AT [place] [id number] [facility] (test ngnj=7448) [facility] [address] POCT-GLUCOSE [id number] 19:08:00 Test Item Value Reference Range Comments POC-GLUCOSE METER (BEAKER) 175 mg/dL 70-110 TESTED AT [address] (test iexl=8418) [facility] [address] [id number] 15:34:00 Test Item Value Reference Range Comments PHOSPHORUS (BEAKER) (test sgpb=499) 2.3 mg/dL 2.3-4.7 [id number] 15:34:00 Test Item Value Reference Range Comments MAGNESIUM (BEAKER) (test ngod=376) 1.2 mg/dL 1.6-2.6 BASIC METABOLIC [id number] 15:34:00 Test Item Value Reference Range Comments SODIUM (BEAKER) (test 139 meq/L 136-145 vnme=794) POTASSIUM (BEAKER) (test 3.8 meq/L 3.5-5.1 ksgw=985) CHLORIDE (BEAKER) (test 110 meq/L 98-107 vrxa=745) CO2 (BEAKER) (test 20 meq/L 22-29 nexw=435) BLOOD UREA NITROGEN 9 mg/dL 7-21 (BEAKER) (test nljx=244) CREATININE (BEAKER) (test 1.21 mg/dL 0.57-1.25 kgag=842) GLUCOSE RANDOM (BEAKER) 149 mg/dL 70-105 (test bsfu=342) CALCIUM (BEAKER) (test 8.8 mg/dL 8.4-10.2 kslk=198) EGFR (BEAKER) (test 58 mL/min/1.73 sq m ESTIMATED GFR IS NOT ktgt=9073) ACCURATE CREATININE CLEARANCE IN PREDICTING GLOMERULAR FILTRATION RATE. ESTIMATED GFR IS NOT APPLICABLE FOR DIALYSIS PATIENTS. HEMOGLOBIN AND [id number] 15:16:00 Test Item Value Reference Range Comments HEMOGLOBIN (BEAKER) (test tmbj=224) 8.9 GM/DL 13.7-17.5 HEMATOCRIT (BEAKER) (test gtyb=806) 28.9 % 40.1-51.0 POCT-GLUCOSE [id number] 12:46:00 Test Item Value Reference Range Comments POC-GLUCOSE METER (BEAKER) 195 mg/dL 70-110 TESTED AT [address] (test ezdw=9236) [place] [address] POCT-GLUCOSE [id number] 08:26:00 Test Item Value Reference Range Comments POC-GLUCOSE METER (BEAKER) 113 mg/dL 70-110 TESTED AT [address] (test tsgx=3702) [place] [address] HEMOGLOBIN AND [id number] 23:04:00 Test Item Value Reference Range Comments HEMOGLOBIN (BEAKER) (test bsxz=430) 9.2 GM/DL 13.7-17.5 HEMATOCRIT (BEAKER) (test wura=411) 30.2 % 40.1-51.0 POCT-GLUCOSE [id number] 21:02:00 Test Item Value Reference Range Comments POC-GLUCOSE METER (BEAKER) 106 mg/dL 70-110 TESTED AT [address] (test hkzn=8308) [place] [address] POCT-GLUCOSE [id number] 18:35:00 Test Item Value Reference Range Comments POC-GLUCOSE METER (BEAKER) 128 mg/dL 70-110 TESTED AT [address] (test iivh=9617) [place] [address] U/S, BIOPSY, RENAL (KIDNEY)2018-11-28 17:54:00Reason for exam:->R sided kidney mass, biopsy neededFINAL REPORT Ultrasound guided fine-needle aspiration and core biopsy dated 11/28/2018 Procedure: Fine- needle aspiration and core biopsy of the right renal mass Pre-procedure diagnosis: Right renal mass Post-procedure diagnosis: Right renal mass Radiologist: Lurdes Fernandes MD [employer]: None Sedation: Moderate sedation was administered. 1.5 mg of Versed and 75 mcg fentanyl IV was used for moderate sedation monitored under my direction. Total intraservice time of the sedation was 50 minutes. The patient's vital signs were monitored throughout the procedure and recorded in the patient's medical record by the nurse. Anesthesia : 1% Xylocaine local anesthesia. Technique/Specimen removed: After obtaining informed consent, ultrasound guided fine-needle aspiration of the right renal mass was performed under usual sterile technique. Using 2-22-gauge and 1-23- gauge Chiba needles, 3 passes were obtained. Pathologist requested additional material. Subsequent core biopsy was performed with a 20-gauge core and with 3 passes. Complication: None Estimated Blood Loss: None Graft/Implants: None Impression: Successful ultrasound-guided fine-needle aspiration and core biopsy of the right renalmass. Signed: Lurdes Fernandes Verified Date/Time: 11/28 17:54:55 Reading Location: [address] [address] Ultrasound Reading Room U/S, ASPIRATION/[id number] 17:54:00Reason for exam:->R sided kidney mass , biopsy neededFINAL REPORT Ultrasound guided fine- needle aspiration and core biopsy dated 11/28/2018 Procedure: Fine-needle aspiration and core biopsy of the right renal mass Pre-procedure diagnosis: Right renal mass Post-procedure diagnosis: Right renal mass Radiologist: Lurdes Fernandes MD [employer]: None Sedation: Moderate sedation was administered. 1.5 [...] aspiration and core biopsy of the right renalmass. Signed: Lurdes Fernandes Verified Date/Time: 11/28/2018 17:54: 55 Reading Location: [address] Ultrasound Reading Room POCT-GLUCOSE [id number] 12:01:00 Test Item Value Reference Range Comments POC-GLUCOSE METER (BEAKER) 133 mg/dL 70-[address] [facility] [address] [facility] (test xivh=9378) [facility] [address] POCT-GLUCOSE [id number] 08:12:00 Test Item Value Reference Range Comments POC-GLUCOSE METER (BEAKER) 139 mg/dL 70-110 TESTED AT [place] [id number] [facility] (test film=2347) [facility] [address] CALCIUM, [id number] 07:20:00 Test Item Value Reference Range Comments CALCIUM IONIZED (BEAKER) (test dhuh=488) 1.10 mmol/L 1.12-1.27 PH, BLOOD (BEAKER) (test ylei=3805) 7.40 BLOOD [id number] 07:01:00 Test Item Value Reference Range Comments CULTURE (BEAKER) (test snwo=1516) No growth in 5 days [id number] 06:10:00 Test Item Value Reference Range Comments PHOSPHORUS (BEAKER) (test ojnb=991) 2.0 mg/dL 2.3-4.7 [id number] 06:10:00 Test Item Value Reference Range Comments MAGNESIUM (BEAKER) (test qqlx=999) 1.6 mg/dL 1.6-2.6 BASIC METABOLIC [id number] 06:10:00 Test Item Value Reference Range Comments SODIUM (BEAKER) (test 140 meq/L 136-145 yreq=807) POTASSIUM (BEAKER) (test 3.8 meq/L 3.5-5.1 thid=356) CHLORIDE (BEAKER) (test 112 meq/L 98-107 wefd=725) CO2 (BEAKER) (test 19 meq/L 22-29 fuwx=203) BLOOD UREA NITROGEN 9 mg/dL 7-21 (BEAKER) (test hlrh=249) CREATININE (BEAKER) (test 1.08 mg/dL 0.57-1.25 lpqi=267) GLUCOSE RANDOM (BEAKER) 120 mg/dL 70-105 (test ierj=317) CALCIUM (BEAKER) (test 8.5 mg/dL 8.4-10.2 avac=369) EGFR (BEAKER) (test 67 mL/min/1.73 sq m ESTIMATED GFR IS NOT vtlo=6031) ACCURATE CREATININE CLEARANCE IN PREDICTING GLOMERULAR FILTRATION RATE. ESTIMATED GFR IS NOT APPLICABLE FOR DIALYSIS PATIENTS. CBC W/PLT COUNT & AUTO [id number] 05:33:00 Test Item Value Reference Range Comments WHITE BLOOD CELL COUNT (BEAKER) (test equv=584) 8.2 K/ L 3.5-10.5 RED BLOOD CELL COUNT (BEAKER) (test mwlh=847) 3.68 M/ L 4.63-6.08 HEMOGLOBIN (BEAKER) (test ersi=363) 9.4 GM/DL 13.7-17.5 HEMATOCRIT (BEAKER) (test fxzc=055) 31.1 % 40.1-51.0 MEAN CORPUSCULAR VOLUME (BEAKER) (test rpvv=458) 84.5 fL 79.0-92.2 MEAN CORPUSCULAR HEMOGLOBIN (BEAKER) (test 25.5 pg 25.7-32.2 bwde=368) MEAN CORPUSCULAR HEMOGLOBIN CONC (BEAKER) (test 30.2 GM/DL 32.3-36.5 aflk=823) RED CELL DISTRIBUTION WIDTH (BEAKER) (test 22.4 % 11.6-14.4 lkeb=879) PLATELET COUNT (BEAKER) (test bdwz=249) 274 K/CU MM 150-450 MEAN PLATELET VOLUME (BEAKER) (test nsjp=291) 9.9 fL 9.4-12.4 NUCLEATED RED BLOOD CELLS (BEAKER) (test 0 /100 WBC 0-0 gsrj=052) NEUTROPHILS RELATIVE PERCENT (BEAKER) (test 59 % eomi=227) LYMPHOCYTES RELATIVE PERCENT (BEAKER) (test 28 % wzrc=846) MONOCYTES RELATIVE PERCENT (BEAKER) (test 6 % itwr=742) EOSINOPHILS RELATIVE PERCENT (BEAKER) (test 5 % mzxx=409) BASOPHILS RELATIVE PERCENT (BEAKER) (test 1 % blxp=313) NEUTROPHILS ABSOLUTE COUNT (BEAKER) (test 4.80 K/ L 1.78-5.38 ofhh=074) LYMPHOCYTES ABSOLUTE COUNT (BEAKER) (test 2.30 K/ L 1.32-3.57 jbif=243) MONOCYTES ABSOLUTE COUNT (BEAKER) (test 0.52 K/ L 0.30-0.82 npnp=255) EOSINOPHILS ABSOLUTE COUNT (BEAKER) (test 0.39 K/ L 0.04-0.54 uelg=894) BASOPHILS ABSOLUTE COUNT (BEAKER) (test 0.05 K/ L 0.01-0.08 uiof=753) IMMATURE GRANULOCYTES-RELATIVE PERCENT (BEAKER) 1 % 0-1 (test yaky=2467) POCT-GLUCOSE [id number] 22:53:00 Test Item Value Reference Range Comments POC-GLUCOSE METER (BEAKER) 105 mg/dL 70-110 TESTED AT [address] (test ejgl=8529) [facility] [address] BLOOD [id number] 19:01:00 Test Item Value Reference Range Comments CULTURE (BEAKER) (test lfmh=3745) No growth in 5 days POCT-GLUCOSE [id number] 16:46:00 Test Item Value Reference Range Comments POC-GLUCOSE METER (BEAKER) 120 mg/dL 70-110 TESTED AT [address] (test envi=6540) [facility] [address] POCT-GLUCOSE [id number] 12:49:00 Test Item Value Reference Range Comments POC-GLUCOSE METER (BEAKER) 140 mg/dL 70-110 TESTED AT [address] (test ummg=8704) [facility] [address] POCT-GLUCOSE [id number] 08:33:00 Test Item Value Reference Range Comments POC-GLUCOSE METER (BEAKER) 138 mg/dL 70-110 TESTED AT [address] (test darc=3768) [facility] [address] CALCIUM, [id number] 07:28:00 Test Item Value Reference Range Comments CALCIUM IONIZED (BEAKER) (test kvwh=288) 1.10 mmol/L 1.12-1.27 PH, BLOOD (BEAKER) (test hdyp=7477) 7.39 [id number] 06:54:00 Test Item Value Reference Range Comments PHOSPHORUS (BEAKER) (test tmzi=044) 2.3 mg/dL 2.3-4.7 [id number] 06:54:00 Test Item Value Reference Range Comments MAGNESIUM (BEAKER) (test qbxu=194) 1.7 mg/dL 1.6-2.6 BASIC METABOLIC [id number] 06:54:00 Test Item Value Reference Range Comments SODIUM (BEAKER) (test 140 meq/L 136-145 fgfd=543) POTASSIUM (BEAKER) (test 3.7 meq/L 3.5-5.1 akto=990) CHLORIDE (BEAKER) (test 112 meq/L 98-107 xjfo=378) CO2 (BEAKER) (test 19 meq/L 22-29 fzzk=730) BLOOD UREA NITROGEN 10 mg/dL 7-21 (BEAKER) (test ofrq=920) CREATININE (BEAKER) (test 1.05 mg/dL 0.57-1.25 elah=065) GLUCOSE RANDOM (BEAKER) 112 mg/dL 70-105 (test yjte=367) CALCIUM (BEAKER) (test 8.6 mg/dL 8.4-10.2 cchk=789) EGFR (BEAKER) (test 69 mL/min/1.73 sq m ESTIMATED GFR IS NOT moek=3037) ACCURATE CREATININE CLEARANCE IN PREDICTING GLOMERULAR FILTRATION RATE. ESTIMATED GFR IS NOT APPLICABLE FOR DIALYSIS PATIENTS. CBC W/PLT COUNT & AUTO [id number] 06:50:00 Test Item Value Reference Range Comments WHITE BLOOD CELL COUNT (BEAKER) (test usab=486) 8.4 K/ L 3.5-10.5 RED BLOOD CELL COUNT (BEAKER) (test fgjd=958) 3.42 M/ L 4.63-6.08 HEMOGLOBIN (BEAKER) (test ewzj=386) 8.7 GM/DL 13.7-17.5 HEMATOCRIT (BEAKER) (test itwo=661) 28.7 % 40.1-51.0 MEAN CORPUSCULAR VOLUME (BEAKER) (test ejzz=843) 83.9 fL 79.0-92.2 MEAN CORPUSCULAR HEMOGLOBIN (BEAKER) (test 25.4 pg 25.7-32.2 bhvy=499) MEAN CORPUSCULAR HEMOGLOBIN CONC (BEAKER) (test 30.3 GM/DL 32.3-36.5 dnda=641) RED CELL DISTRIBUTION WIDTH (BEAKER) (test 21.6 % 11.6-14.4 pwrw=314) PLATELET COUNT (BEAKER) (test ftcm=793) 234 K/CU MM 150-450 MEAN PLATELET VOLUME (BEAKER) (test eerl=273) 10.1 fL 9.4-12.4 NUCLEATED RED BLOOD CELLS (BEAKER) (test 0 /100 WBC 0-0 pttb=261) NEUTROPHILS RELATIVE PERCENT (BEAKER) (test 62 % smqw=085) LYMPHOCYTES RELATIVE PERCENT (BEAKER) (test 25 % zjzm=014) MONOCYTES RELATIVE PERCENT (BEAKER) (test 6 % gibn=004) EOSINOPHILS RELATIVE PERCENT (BEAKER) (test 6 % oauv=008) BASOPHILS RELATIVE PERCENT (BEAKER) (test 1 % xhyf=520) NEUTROPHILS ABSOLUTE COUNT (BEAKER) (test 5.21 K/ L 1.78-5.38 wugg=310) LYMPHOCYTES ABSOLUTE COUNT (BEAKER) (test 2.11 K/ L 1.32-3.57 yyoa=787) MONOCYTES ABSOLUTE COUNT (BEAKER) (test 0.49 K/ L 0.30-0.82 qzuo=244) EOSINOPHILS ABSOLUTE COUNT (BEAKER) (test 0.46 K/ L 0.04-0.54 zugs=634) BASOPHILS ABSOLUTE COUNT (BEAKER) (test 0.06 K/ L 0.01-0.08 gblf=933) IMMATURE GRANULOCYTES-RELATIVE PERCENT (BEAKER) 1 % 0-1 (test swil=5099) POCT-GLUCOSE [id number] 21:25:00 Test Item Value Reference Range Comments POC-GLUCOSE METER (BEAKER) 118 mg/dL 70-110 TESTED AT [address] (test styc=8573) [place] [address] POCT-GLUCOSE [id number] 17:54:00 Test Item Value Reference Range Comments POC-GLUCOSE METER (BEAKER) 138 mg/dL 70-110 TESTED AT [address] (test njyh=7664) [place] [address] [id number] 11:52:00 Test Item Value Reference Range Comments PHOSPHORUS (BEAKER) (test pyhu=588) 1.5 mg/dL 2.3-4.7 [id number] 11:42:00 Test Item Value Reference Range Comments MAGNESIUM (BEAKER) (test jpji=820) 1.7 mg/dL 1.6-2.6 BASIC METABOLIC [id number] 11:42:00 Test Item Value Reference Range Comments SODIUM (BEAKER) (test 141 meq/L 136-145 lrmm=966) POTASSIUM (BEAKER) (test 3.6 meq/L 3.5-5.1 ozzh=658) CHLORIDE (BEAKER) (test 114 meq/L 98-107 bgfd=128) CO2 (BEAKER) (test 20 meq/L 22-29 vhkr=475) BLOOD UREA NITROGEN 13 mg/dL 7-21 (BEAKER) (test ezfk=242) CREATININE (BEAKER) (test 1.27 mg/dL 0.57-1.25 jmex=958) GLUCOSE RANDOM (BEAKER) 135 mg/dL 70-105 (test fipe=241) CALCIUM (BEAKER) (test 8.7 mg/dL 8.4-10.2 vjtv=662) EGFR (BEAKER) (test 55 mL/min/1.73 sq m ESTIMATED GFR IS NOT uovl=5213) ACCURATE CREATININE CLEARANCE IN PREDICTING GLOMERULAR FILTRATION RATE. ESTIMATED GFR IS NOT APPLICABLE FOR DIALYSIS PATIENTS. [id number] 11:41:00 Test Item Value Reference Range Comments PROTIME (BEAKER) (test rwkl=717) 16.7 seconds 11.7-14.7 INR (BEAKER) (test hdaw=515) 1.3 <=5.9 PARTIAL THROMBOPLASTIN TIME (BEAKER) (test 48.5 seconds 22.5-36.0 brzd=946) RECOMMENDED COUMADIN/WARFARIN INR THERAPY RANGESSTANDARD DOSE: 2.0 - 3.0 Includes: PROPHYLAXIS forvenous thrombosis, systemic embolization; TREATMENT for venous thrombosis and/or pulmonary embolus.HIGH RISK: Target INR is 2.5-3.5 for patients with mechanical heart valves.MRSA [id number] 11:31:00 Test Item Value Reference Range Comments CULTURE (BEAKER) (test wuff=2501) No MRSA isolated CBC (HEMOGRAM ONLY)2018-11-26 11:28:00 Test Item Value Reference Range Comments WHITE BLOOD CELL COUNT (BEAKER) (test yyqx=894) 7.1 K/ L 3.5-10.5 RED BLOOD CELL COUNT (BEAKER) (test poaq=669) 3.36 M/ L 4.63-6.08 HEMOGLOBIN (BEAKER) (test shws=147) 8.5 GM/DL 13.7-17.5 HEMATOCRIT (BEAKER) (test bocv=499) 28.4 % 40.1-51.0 MEAN CORPUSCULAR VOLUME (BEAKER) (test afvv=011) 84.5 fL 79.0-92.2 MEAN CORPUSCULAR HEMOGLOBIN (BEAKER) (test 25.3 pg 25.7-32.2 azjx=867) MEAN CORPUSCULAR HEMOGLOBIN CONC (BEAKER) (test 29.9 GM/DL 32.3-36.5 ogiy=144) RED CELL DISTRIBUTION WIDTH (BEAKER) (test 21.6 % 11.6-14.4 snym=565) PLATELET COUNT (BEAKER) (test xwhx=100) 214 K/CU MM 150-450 MEAN PLATELET VOLUME (BEAKER) (test nxje=050) 9.6 fL 9.4-12.4 NUCLEATED RED BLOOD CELLS (BEAKER) (test 0 /100 WBC 0-0 nypl=897) POCT-GLUCOSE [id number] 07:38:00 Test Item Value Reference Range Comments POC-GLUCOSE METER (BEAKER) 174 mg/dL 70-110 TESTED AT [address] (test txms=8232) [place] [address] POCT-GLUCOSE [id number] 20:27:00 Test Item Value Reference Range Comments POC-GLUCOSE METER (BEAKER) 199 mg/dL 70-110 TESTED AT [address] (test cdpe=8793) [place] [id number] POCT-GLUCOSE [id number] 17:55:00 Test Item Value Reference Range Comments POC-GLUCOSE METER (BEAKER) 196 mg/dL 70-110 TESTED AT [address] (test jcdj=1832) [place] [address] POCT-GLUCOSE [id number] 11:56:00 Test Item Value Reference Range Comments POC-GLUCOSE METER (BEAKER) 209 mg/dL 70-110 TESTED AT [address] (test ukob=5601) [place] [id number] KIDNEY IMAGING, SINGLE, FLOW/[id number] 11:35:00FINAL REPORT PROCEDURE: Functional RENAL SCAN, flow and function CPT CODE: 58383 INDICATION: R rcca, eval differential renal function, [...] of the left kidney is 57.88% and forthe right kidney is 42.12%.2.Decreased clearance of tracer from both kidneys compatible with decreased renal function. Signed: Christian Ambrose MDReport Verified Date/Time: 11/25/2018 11:35:45 Reading Location : [address] Reading Room [id number] 10:00:00 Test Item Value Reference Range Comments PHOSPHORUS (BEAKER) (test jwrw=960) 1.7 mg/dL 2.3-4.7 [id number] 10:00:00 Test Item Value Reference Range Comments MAGNESIUM (BEAKER) (test jbrp=495) 2.0 mg/dL 1.6-2.6 BASIC METABOLIC [id number] 10:00:00 Test Item Value Reference Range Comments SODIUM (BEAKER) (test 141 meq/L 136-145 qnmp=018) POTASSIUM (BEAKER) (test 3.5 meq/L 3.5-5.1 csrv=983) CHLORIDE (BEAKER) (test 113 meq/L 98-107 uplm=271) CO2 (BEAKER) (test 22 meq/L 22-29 ungx=244) BLOOD UREA NITROGEN 20 mg/dL 7-21 (BEAKER) (test cqbx=363) CREATININE (BEAKER) (test 1.50 mg/dL 0.57-1.25 oheo=743) GLUCOSE RANDOM (BEAKER) 164 mg/dL 70-105 (test dozk=451) CALCIUM (BEAKER) (test 8.9 mg/dL 8.4-10.2 zylc=155) EGFR (BEAKER) (test 46 mL/min/1.73 sq m ESTIMATED GFR IS NOT jgez=0320) ACCURATE CREATININE CLEARANCE IN PREDICTING GLOMERULAR FILTRATION RATE. ESTIMATED GFR IS NOT APPLICABLE FOR DIALYSIS PATIENTS. CBC W/PLT COUNT & AUTO [id number] 10:00:00 Test Item Value Reference Range Comments WHITE BLOOD CELL COUNT (BEAKER) (test npen=707) 7.6 K/ L 3.5-10.5 RED BLOOD CELL COUNT (BEAKER) (test rrzb=394) 3.58 M/ L 4.63-6.08 HEMOGLOBIN (BEAKER) (test hyfv=192) 9.0 GM/DL 13.7-17.5 HEMATOCRIT (BEAKER) (test bwrh=800) 30.4 % 40.1-51.0 MEAN CORPUSCULAR VOLUME (BEAKER) (test mulv=040) 84.9 fL 79.0-92.2 MEAN CORPUSCULAR HEMOGLOBIN (BEAKER) (test 25.1 pg 25.7-32.2 fdds=614) MEAN CORPUSCULAR HEMOGLOBIN CONC (BEAKER) (test 29.6 GM/DL 32.3-36.5 sgco=900) RED CELL DISTRIBUTION WIDTH (BEAKER) (test 22.0 % 11.6-14.4 idae=310) PLATELET COUNT (BEAKER) (test fbze=965) 252 K/CU MM 150-450 MEAN PLATELET VOLUME (BEAKER) (test bhuk=096) 10.5 fL 9.4-12.4 NUCLEATED RED BLOOD CELLS (BEAKER) (test 0 /100 WBC 0-0 mdcl=001) NEUTROPHILS RELATIVE PERCENT (BEAKER) (test 61 % xajx=803) LYMPHOCYTES RELATIVE PERCENT (BEAKER) (test 25 % hhza=619) MONOCYTES RELATIVE PERCENT (BEAKER) (test 6 % rfdx=265) EOSINOPHILS RELATIVE PERCENT (BEAKER) (test 7 % xstj=050) BASOPHILS RELATIVE PERCENT (BEAKER) (test 1 % ugca=785) NEUTROPHILS ABSOLUTE COUNT (BEAKER) (test 4.69 K/ L 1.78-5.38 upey=017) LYMPHOCYTES ABSOLUTE COUNT (BEAKER) (test 1.88 K/ L 1.32-3.57 dhjq=430) MONOCYTES ABSOLUTE COUNT (BEAKER) (test 0.45 K/ L 0.30-0.82 hzvm=505) EOSINOPHILS ABSOLUTE COUNT (BEAKER) (test 0.55 K/ L 0.04-0.54 mgrc=995) BASOPHILS ABSOLUTE COUNT (BEAKER) (test 0.05 K/ L 0.01-0.08 gsow=351) IMMATURE GRANULOCYTES-RELATIVE PERCENT (BEAKER) 0 % 0-1 (test bfis=2479) CALCIUM, [id number] 09:39:00 Test Item Value Reference Range Comments CALCIUM IONIZED (BEAKER) (test obvs=236) 1.12 mmol/L 1.12-1.27 PH, BLOOD (BEAKER) (test vcyr=7308) 7.33 POCT-GLUCOSE [id number] 07:56:00 Test Item Value Reference Range Comments POC-GLUCOSE METER (BEAKER) 186 mg/dL 70-110 TESTED AT [address] (test wfbg=3306) [facility] [address] POCT-GLUCOSE [id number] 20:37:00 Test Item Value Reference Range Comments POC-GLUCOSE METER (BEAKER) 225 mg/dL 70-110 TESTED AT [address] (test rucz=0559) [facility] [address] POCT-GLUCOSE [id number] 18:21:00 Test Item Value Reference Range Comments POC-GLUCOSE METER (BEAKER) 234 mg/dL 70-110 TESTED AT [address] (test tnsj=7373) [facility] [address] PUL PERF IMAGING, PARTIC, [id number] 12:25:00FINAL REPORT PROCEDURE: V/Q LUNG SCAN CPT CODE: [id number] INDICATION: Acute chest pain PROTOCOL: 10.7 mCi [...] IMPRESSION: 1. Low probability of acute pulmonary embolization.2. Bilateral parenchymal abnormalities. Signed: Christian AmbroseMDReport Verified Date/Time: 11/24/2018 12: 25:50 Reading Location: [address] Reading Room POCT- GLUCOSE [id number] 11:33:00 Test Item Value Reference Range Comments POC-GLUCOSE METER (BEAKER) 220 mg/dL 70-110 TESTED AT [address] (test rlhq=6451) [facility] [address] CELIAC DISEASE [id number] 09:20:00 Test Item Value Reference Range Comments SCAN RESULT (test ppxy=[id number]) CELIAC DISEASE PROFILE Refer to Celiac Disease AUTOVERIFICATION (QUEST) (test Panel results. cmum=[id number]) POCT-GLUCOSE [id number] 07:46:00 Test Item Value Reference Range Comments POC-GLUCOSE METER (BEAKER) 162 mg/dL 70-110 TESTED AT [address] (test byvz=9017) [place] [id number] CALCIUM, [id number] 07:34:00 Test Item Value Reference Range Comments CALCIUM IONIZED (BEAKER) (test evlp=900) 1.09 mmol/L 1.12-1.27 PH, BLOOD (BEAKER) (test uvbd=7504) 7.44 [id number] 06:31:00 Test Item Value Reference Range Comments PHOSPHORUS (BEAKER) (test nycx=738) 2.6 mg/dL 2.3-4.7 [id number] 06:31:00 Test Item Value Reference Range Comments MAGNESIUM (BEAKER) (test uwkm=015) 1.8 mg/dL 1.6-2.6 COMPREHENSIVE METABOLIC [id number] 06:31:00 Test Item Value Reference Range Comments TOTAL PROTEIN (BEAKER) 5.7 gm/dL 6.0-8.3 (test jvse=076) ALBUMIN (BEAKER) (test 3.0 g/dL 3.5-5.0 zwhz=3503) ALKALINE PHOSPHATASE 50 U/L 40-150 (BEAKER) (test zatn=030) BILIRUBIN TOTAL (BEAKER) 0.4 mg/dL 0.2-1.2 (test yabm=556) SODIUM (BEAKER) (test 141 meq/L 136-145 ncvl=903) POTASSIUM (BEAKER) (test 3.0 meq/L 3.5-5.1 pgjf=682) CHLORIDE (BEAKER) (test 112 meq/L 98-107 ykdd=530) CO2 (BEAKER) (test 19 meq/L 22-29 tsam=787) BLOOD UREA NITROGEN 28 mg/dL 7-21 (BEAKER) (test qvtk=812) CREATININE (BEAKER) (test 1.65 mg/dL 0.57-1.25 hgqc=383) GLUCOSE RANDOM (BEAKER) 132 mg/dL 70-105 (test kkuw=081) CALCIUM (BEAKER) (test 8.5 mg/dL 8.4-10.2 cuih=890) AST (SGOT) (BEAKER) (test 8 U/L 5-34 nucg=081) ALT (SGPT) (BEAKER) (test 8 U/L 6-55 hiwg=394) EGFR (BEAKER) (test 41 mL/min/1.73 sq m ESTIMATED GFR IS NOT rdus=4786) ACCURATE CREATININE CLEARANCE IN PREDICTING GLOMERULAR FILTRATION RATE. ESTIMATED GFR IS NOT APPLICABLE FOR DIALYSIS PATIENTS. VANCOMYCIN LEVEL, [id number] 06:19:00 Test Item Value Reference Range Comments VANCOMYCIN TROUGH (BEAKER) (test jvzw=668) 17.7 ug/mL 10.0-20.0 Hold dose if trough >20 mcg/mlCBC W/PLT COUNT & AUTO [id number] 06:10:00 Test Item Value Reference Range Comments WHITE BLOOD CELL COUNT (BEAKER) (test cxrk=823) 12.2 K/ L 3.5-10.5 RED BLOOD CELL COUNT (BEAKER) (test pvlv=335) 3.03 M/ L 4.63-6.08 HEMOGLOBIN (BEAKER) (test qutu=587) 7.8 GM/DL 13.7-17.5 HEMATOCRIT (BEAKER) (test twsg=826) 25.8 % 40.1-51.0 MEAN CORPUSCULAR VOLUME (BEAKER) (test hhdq=815) 85.1 fL 79.0-92.2 MEAN CORPUSCULAR HEMOGLOBIN (BEAKER) (test 25.7 pg 25.7-32.2 qjoj=994) MEAN CORPUSCULAR HEMOGLOBIN CONC (BEAKER) (test 30.2 GM/DL 32.3-36.5 dmhg=543) RED CELL DISTRIBUTION WIDTH (BEAKER) (test 22.2 % 11.6-14.4 szfd=481) PLATELET COUNT (BEAKER) (test wksj=392) 204 K/CU MM 150-450 MEAN PLATELET VOLUME (BEAKER) (test kgec=092) 10.5 fL 9.4-12.4 NUCLEATED RED BLOOD CELLS (BEAKER) (test 0 /100 WBC 0-0 qpkb=195) NEUTROPHILS RELATIVE PERCENT (BEAKER) (test 74 % lzay=360) LYMPHOCYTES RELATIVE PERCENT (BEAKER) (test 15 % etma=618) MONOCYTES RELATIVE PERCENT (BEAKER) (test 6 % ibin=883) EOSINOPHILS RELATIVE PERCENT (BEAKER) (test 5 % hcfu=620) BASOPHILS RELATIVE PERCENT (BEAKER) (test 0 % mxsp=226) NEUTROPHILS ABSOLUTE COUNT (BEAKER) (test 9.02 K/ L 1.78-5.38 mdal=022) LYMPHOCYTES ABSOLUTE COUNT (BEAKER) (test 1.85 K/ L 1.32-3.57 osqu=307) MONOCYTES ABSOLUTE COUNT (BEAKER) (test 0.67 K/ L 0.30-0.82 wlua=015) EOSINOPHILS ABSOLUTE COUNT (BEAKER) (test 0.58 K/ L 0.04-0.54 xyqp=976) BASOPHILS ABSOLUTE COUNT (BEAKER) (test 0.03 K/ L 0.01-0.08 dscn=052) IMMATURE GRANULOCYTES-RELATIVE PERCENT (BEAKER) 1 % 0-1 (test nnix=2031) POCT-GLUCOSE [id number] 21:24:00 Test Item Value Reference Range Comments POC-GLUCOSE METER (BEAKER) 227 mg/dL 70-110 TESTED AT [address] (test ibxs=8443) [facility] [address] POCT-GLUCOSE [id number] 17:44:00 Test Item Value Reference Range Comments POC-GLUCOSE METER (BEAKER) 257 mg/dL 70-110 TESTED AT [address] (test jhdc=8968) [facility] [address] POCT-GLUCOSE [id number] 11:33:00 Test Item Value Reference Range Comments POC-GLUCOSE METER (BEAKER) 297 mg/dL 70-110 TESTED AT [address] (test tsxt=0252) [facility] [address] POCT-GLUCOSE [id number] 07:49:00 Test Item Value Reference Range Comments POC-GLUCOSE METER (BEAKER) 185 mg/dL 70-[address] [facility] [address] (test hrcq=7896) [place] [address] CALCIUM, [id number] 07:30:00 Test Item Value Reference Range Comments CALCIUM IONIZED (BEAKER) (test cmeh=988) 1.05 mmol/L 1.12-1.27 PH, BLOOD (BEAKER) (test rnjb=9374) 7.45 [id number] 06:25:00 Test Item Value Reference Range Comments PHOSPHORUS (BEAKER) (test hejz=192) 2.8 mg/dL 2.3-4.7 [id number] 06:25:00 Test Item Value Reference Range Comments MAGNESIUM (BEAKER) (test qkmd=268) 1.7 mg/dL 1.6-2.6 COMPREHENSIVE METABOLIC [id number] 06:25:00 Test Item Value Reference Range Comments TOTAL PROTEIN (BEAKER) 5.7 gm/dL 6.0-8.3 (test ijpx=118) ALBUMIN (BEAKER) (test 3.1 g/dL 3.5-5.0 oeya=5426) ALKALINE PHOSPHATASE 62 U/L 40-150 (BEAKER) (test zbfw=489) BILIRUBIN TOTAL (BEAKER) 0.7 mg/dL 0.2-1.2 (test yxfk=811) SODIUM (BEAKER) (test 136 meq/L 136-145 fqkb=053) POTASSIUM (BEAKER) (test 3.2 meq/L 3.5-5.1 abxr=151) CHLORIDE (BEAKER) (test 108 meq/L 98-107 zvpc=135) CO2 (BEAKER) (test 18 meq/L 22-29 nhrl=281) BLOOD UREA NITROGEN 28 mg/dL 7-21 (BEAKER) (test aafe=318) CREATININE (BEAKER) (test 2.10 mg/dL 0.57-1.25 camf=675) GLUCOSE RANDOM (BEAKER) 156 mg/dL 70-105 (test wzlh=417) CALCIUM (BEAKER) (test 8.4 mg/dL 8.4-10.2 vhgr=227) AST (SGOT) (BEAKER) (test 7 U/L 5-34 orax=623) ALT (SGPT) (BEAKER) (test 7 U/L 6-55 vjmn=481) EGFR (BEAKER) (test 31 mL/min/1.73 sq m ESTIMATED GFR IS NOT zmpw=7975) ACCURATE CREATININE CLEARANCE IN PREDICTING GLOMERULAR FILTRATION RATE. ESTIMATED GFR IS NOT APPLICABLE FOR DIALYSIS PATIENTS. B-TYPE NATRIURETIC FACTOR (BNP)2018-11-23 06:20:00 Test Item Value Reference Range Comments B-TYPE NATRIURETIC PEPTIDE (BEAKER) (test 157 pg/mL 0-100 lzhq=857) CBC W/PLT COUNT & AUTO [id number] 05:56:00 Test Item Value Reference Range Comments WHITE BLOOD CELL COUNT (BEAKER) (test anva=558) 17.8 K/ L 3.5-10.5 RED BLOOD CELL COUNT (BEAKER) (test raug=805) 3.25 M/ L 4.63-6.08 HEMOGLOBIN (BEAKER) (test hvan=015) 8.3 GM/DL 13.7-17.5 HEMATOCRIT (BEAKER) (test oryj=565) 27.1 % 40.1-51.0 MEAN CORPUSCULAR VOLUME (BEAKER) (test arix=974) 83.4 fL 79.0-92.2 MEAN CORPUSCULAR HEMOGLOBIN (BEAKER) (test 25.5 pg 25.7-32.2 spvm=476) MEAN CORPUSCULAR HEMOGLOBIN CONC (BEAKER) (test 30.6 GM/DL 32.3-36.5 ppjk=848) RED CELL DISTRIBUTION WIDTH (BEAKER) (test 22.4 % 11.6-14.4 erzz=399) PLATELET COUNT (BEAKER) (test chlr=947) 198 K/CU MM 150-450 MEAN PLATELET VOLUME (BEAKER) (test ddxp=369) 10.1 fL 9.4-12.4 NUCLEATED RED BLOOD CELLS (BEAKER) (test 0 /100 WBC 0-0 puhn=678) NEUTROPHILS RELATIVE PERCENT (BEAKER) (test 82 % gqtg=763) LYMPHOCYTES RELATIVE PERCENT (BEAKER) (test 10 % jubz=803) MONOCYTES RELATIVE PERCENT (BEAKER) (test 6 % gazz=580) EOSINOPHILS RELATIVE PERCENT (BEAKER) (test 1 % idlt=969) BASOPHILS RELATIVE PERCENT (BEAKER) (test 0 % gsqi=927) NEUTROPHILS ABSOLUTE COUNT (BEAKER) (test 14.60 K/ L 1.78-5.38 yeoa=918) LYMPHOCYTES ABSOLUTE COUNT (BEAKER) (test 1.71 K/ L 1.32-3.57 ngjh=280) MONOCYTES ABSOLUTE COUNT (BEAKER) (test 1.03 K/ L 0.30-0.82 pgwf=406) EOSINOPHILS ABSOLUTE COUNT (BEAKER) (test 0.22 K/ L 0.04-0.54 uiko=477) BASOPHILS ABSOLUTE COUNT (BEAKER) (test 0.03 K/ L 0.01-0.08 taqv=198) IMMATURE GRANULOCYTES-RELATIVE PERCENT (BEAKER) 1 % 0-1 (test lozw=9692) CT, CHEST, WITHOUT [id number] 04:37:00Replaces exam w contrastFINAL REPORT EXAMINATION: Noncontrast chest CT. CLINICAL HISTORY: Acute respiratory illness COMPARISON EXAM: Abdominal CT 11/20/2018, chest CT 05/14/2012 TECHNIQUE: Axial noncontrast tomographic images were acquired through the thorax. The exam was performed according to our departmental dose optimization program which includes automated exposure control , adjustment of the mA and/or kV according to patient's size and/or use of iterative reconstructive technique. FINDINGS: Trachea and central airways demonstrate senescent changes of aging. The trachea also has a saber-sheath morphology which can be associated with obstructive lung disease. Subtle radiolucency is also noted involving the lung apices which may also reflect obstructive lung disease/emphysema. Correlation with patient's smoking history recommended. Patchy and nodular opacities are again noted in both lower lobes, left greater than right as well as the left lingula which are concerning for a multilobar pneumonia. Aspiration pneumonia would be a consideration given the distribution. Trace fluid is also noted in the dependent portion of the pleural spaces, left greater than right, likely parapneumonic. Evaluation of the mediastinal structures is limited by the absence of contrast. Thoracic aorta is normal in course and caliber. Calcific atherosclerotic changes are noted involving the aorta, great vessels arising off of the aorta and the coronary arteries. Query superimposed coronary artery stents. The heart is mildly enlarged. No evidence of a pericardial effusion. Numerous shotty nonspecific lymph nodes areagain noted in the mediastinum without evidence of pathologic enlargement. No evidence of pulmonaryedema, pneumothorax or pneumomediastinum. Abnormal soft tissue attenuation is noted in the retroareolar region of both breasts compatible with gynecomastia. No definite evidence of an acute thoracic osseous abnormality. IMPRESSION: Multilobar pneumonia. Aspiration pneumonia would be included in the differential diagnosis given the distribution. Trace bilateral pleural effusions, likely parapneumonic.Please see above for additional details. Signed: Myron Kenny MDReport Verified Date/Time: 2018 04:37:26 Reading Location: [address] Reading Room LACTIC ACID , VENOUS, WHOLE [id number] 00:50:00 Test Item Value Reference Range Comments LACTATE BLOOD VENOUS (2) (BEAKER) (test 2.3 mmol/L 0.5-2.2 xavx=7766) CBC W/PLT COUNT & AUTO [id number] 00:34:00 Test Item Value Reference Range Comments WHITE BLOOD CELL COUNT (BEAKER) (test nzjl=932) 19.5 K/ L 3.5-10.5 RED BLOOD CELL COUNT (BEAKER) (test npxt=863) 3.63 M/ L 4.63-6.08 HEMOGLOBIN (BEAKER) (test qhms=332) 9.1 GM/DL 13.7-17.5 HEMATOCRIT (BEAKER) (test levv=219) 31.0 % 40.1-51.0 MEAN CORPUSCULAR VOLUME (BEAKER) (test iwnv=721) 85.4 fL 79.0-92.2 MEAN CORPUSCULAR HEMOGLOBIN (BEAKER) (test 25.1 pg 25.7-32.2 bbug=990) MEAN CORPUSCULAR HEMOGLOBIN CONC (BEAKER) (test 29.4 GM/DL 32.3-36.5 cwts=437) RED CELL DISTRIBUTION WIDTH (BEAKER) (test 22.2 % 11.6-14.4 oyye=259) PLATELET COUNT (BEAKER) (test fhrm=550) 218 K/CU MM 150-450 MEAN PLATELET VOLUME (BEAKER) (test kgab=600) 10.1 fL 9.4-12.4 NUCLEATED RED BLOOD CELLS (BEAKER) (test 0 /100 WBC 0-0 hrkd=110) NEUTROPHILS RELATIVE PERCENT (BEAKER) (test 84 % ccsb=306) LYMPHOCYTES RELATIVE PERCENT (BEAKER) (test 7 % wnqz=135) MONOCYTES RELATIVE PERCENT (BEAKER) (test 6 % ruiz=426) EOSINOPHILS RELATIVE PERCENT (BEAKER) (test 1 % rvdr=522) BASOPHILS RELATIVE PERCENT (BEAKER) (test 0 % aexu=846) NEUTROPHILS ABSOLUTE COUNT (BEAKER) (test 16.28 K/ L 1.78-5.38 ziav=076) LYMPHOCYTES ABSOLUTE COUNT (BEAKER) (test 1.41 K/ L 1.32-3.57 igyr=599) MONOCYTES ABSOLUTE COUNT (BEAKER) (test 1.16 K/ L 0.30-0.82 fokw=535) EOSINOPHILS ABSOLUTE COUNT (BEAKER) (test 0.18 K/ L 0.04-0.54 fdks=120) BASOPHILS ABSOLUTE COUNT (BEAKER) (test 0.06 K/ L 0.01-0.08 tkbu=968) IMMATURE GRANULOCYTES-RELATIVE PERCENT (BEAKER) 2 % 0-1 (test lhuj=7672) POCT-GLUCOSE [id number] 21:22:00 Test Item Value Reference Range Comments POC-GLUCOSE METER (BEAKER) 308 mg/dL 70-110 Will Repeat Test/TESTED AT (test hbgk=8072) [place] [address] POCT-GLUCOSE [id number] 17:17:00 Test Item Value Reference Range Comments POC-GLUCOSE METER (BEAKER) 274 mg/dL 70-110 TESTED AT [address] (test bgur=5176) [place] [address] POCT-GLUCOSE [id number] 11:42:00 Test Item Value Reference Range Comments POC-GLUCOSE METER (BEAKER) 221 mg/dL 70-110 TESTED AT [address] (test yqtz=9168) [place] [address] POCT-GLUCOSE [id number] 07:49:00 Test Item Value Reference Range Comments POC-GLUCOSE METER (BEAKER) 211 mg/dL 70-110 TESTED AT [address] (test jkhq=9143) [place] [address] [id number] 07:40:00 Test Item Value Reference Range Comments MAGNESIUM (BEAKER) (test bxgt=193) 1.9 mg/dL 1.6-2.6 COMPREHENSIVE METABOLIC [id number] 07:40:00 Test Item Value Reference Range Comments TOTAL PROTEIN (BEAKER) 6.0 gm/dL 6.0-8.3 (test tkzw=184) ALBUMIN (BEAKER) (test 3.4 g/dL 3.5-5.0 jlpt=2093) ALKALINE PHOSPHATASE 51 U/L 40-150 (BEAKER) (test hcqn=322) BILIRUBIN TOTAL (BEAKER) 0.5 mg/dL 0.2-1.2 (test iddl=084) SODIUM (BEAKER) (test 137 meq/L 136-145 trca=455) POTASSIUM (BEAKER) (test 3.5 meq/L 3.5-5.1 ahsw=530) CHLORIDE (BEAKER) (test 109 meq/L 98-107 rchq=242) CO2 (BEAKER) (test 19 meq/L 22-29 mkqc=627) BLOOD UREA NITROGEN 16 mg/dL 7-21 (BEAKER) (test yxvy=007) CREATININE (BEAKER) (test 1.70 mg/dL 0.57-1.25 cedr=531) GLUCOSE RANDOM (BEAKER) 184 mg/dL 70-105 (test llqv=752) CALCIUM (BEAKER) (test 8.7 mg/dL 8.4-10.2 vest=490) AST (SGOT) (BEAKER) (test 9 U/L 5-34 dbyq=205) ALT (SGPT) (BEAKER) (test 7 U/L 6-55 xcwj=766) EGFR (BEAKER) (test 39 mL/min/1.73 sq m ESTIMATED GFR IS NOT blmw=0906) ACCURATE CREATININE CLEARANCE IN PREDICTING GLOMERULAR FILTRATION RATE. ESTIMATED GFR IS NOT APPLICABLE FOR DIALYSIS PATIENTS. [id number] 06:10:00 Test Item Value Reference Range Comments PHOSPHORUS (BEAKER) (test tngj=529) 2.3 mg/dL 2.3-4.7 CALCIUM, [id number] 05:39:00 Test Item Value Reference Range Comments CALCIUM IONIZED (BEAKER) (test iltx=208) 1.09 mmol/L 1.12-1.27 PH, BLOOD (BEAKER) (test feby=4082) 7.47 COMPREHENSIVE METABOLIC [id number] 23:05:00 Test Item Value Reference Range Comments TOTAL PROTEIN (BEAKER) 6.4 gm/dL 6.0-8.3 (test pxhi=300) ALBUMIN (BEAKER) (test 3.6 g/dL 3.5-5.0 vshr=8127) ALKALINE PHOSPHATASE 60 U/L 40-150 (BEAKER) (test oahk=401) BILIRUBIN TOTAL (BEAKER) 0.4 mg/dL 0.2-1.2 (test enwi=714) SODIUM (BEAKER) (test 135 meq/L 136-145 ahis=192) POTASSIUM (BEAKER) (test 3.5 meq/L 3.5-5.1 hvhq=412) CHLORIDE (BEAKER) (test 107 meq/L 98-107 jatf=996) CO2 (BEAKER) (test 19 meq/L 22-29 pvue=564) BLOOD UREA NITROGEN 15 mg/dL 7-21 (BEAKER) (test nuvu=865) CREATININE (BEAKER) (test 1.31 mg/dL 0.57-1.25 ezez=955) GLUCOSE RANDOM (BEAKER) 173 mg/dL 70-105 (test quve=213) CALCIUM (BEAKER) (test 9.0 mg/dL 8.4-10.2 jkof=065) AST (SGOT) (BEAKER) (test 9 U/L 5-34 mohv=076) ALT (SGPT) (BEAKER) (test 9 U/L 6-55 ypgt=088) EGFR (BEAKER) (test 53 mL/min/1.73 sq m ESTIMATED GFR IS NOT prmj=7802) ACCURATE CREATININE CLEARANCE IN PREDICTING GLOMERULAR FILTRATION RATE. ESTIMATED GFR IS NOT APPLICABLE FOR DIALYSIS PATIENTS. LACTIC ACID, VENOUS, WHOLE [id number] 22:58:00 Test Item Value Reference Range Comments LACTATE BLOOD VENOUS (2) (BEAKER) (test 1.3 mmol/L 0.5-2.2 okak=6980) CBC W/PLT COUNT & AUTO [id number] 22:42:00 Test Item Value Reference Range Comments WHITE BLOOD CELL COUNT (BEAKER) (test cplj=610) 14.8 K/ L 3.5-10.5 RED BLOOD CELL COUNT (BEAKER) (test abym=851) 3.94 M/ L 4.63-6.08 HEMOGLOBIN (BEAKER) (test liab=701) 10.1 GM/DL 13.7-17.5 HEMATOCRIT (BEAKER) (test ahms=439) 32.5 % 40.1-51.0 MEAN CORPUSCULAR VOLUME (BEAKER) (test dlir=300) 82.5 fL 79.0-92.2 MEAN CORPUSCULAR HEMOGLOBIN (BEAKER) (test 25.6 pg 25.7-32.2 evym=138) MEAN CORPUSCULAR HEMOGLOBIN CONC (BEAKER) (test 31.1 GM/DL 32.3-36.5 otvx=032) RED CELL DISTRIBUTION WIDTH (BEAKER) (test 21.4 % 11.6-14.4 plla=084) PLATELET COUNT (BEAKER) (test ogvz=438) 266 K/CU MM 150-450 MEAN PLATELET VOLUME (BEAKER) (test jpzy=192) 9.6 fL 9.4-12.4 NUCLEATED RED BLOOD CELLS (BEAKER) (test 0 /100 WBC 0-0 mxqo=664) NEUTROPHILS RELATIVE PERCENT (BEAKER) (test 90 % bfnk=504) LYMPHOCYTES RELATIVE PERCENT (BEAKER) (test 5 % hkvo=860) MONOCYTES RELATIVE PERCENT (BEAKER) (test 4 % rrlr=571) EOSINOPHILS RELATIVE PERCENT (BEAKER) (test 0 % grgv=183) BASOPHILS RELATIVE PERCENT (BEAKER) (test 0 % xypr=149) NEUTROPHILS ABSOLUTE COUNT (BEAKER) (test 13.29 K/ L 1.78-5.38 vsdi=869) LYMPHOCYTES ABSOLUTE COUNT (BEAKER) (test 0.79 K/ L 1.32-3.57 haon=168) MONOCYTES ABSOLUTE COUNT (BEAKER) (test 0.63 K/ L 0.30-0.82 nsbs=755) EOSINOPHILS ABSOLUTE COUNT (BEAKER) (test 0.06 K/ L 0.04-0.54 pcvi=968) BASOPHILS ABSOLUTE COUNT (BEAKER) (test 0.02 K/ L 0.01-0.08 wphq=310) IMMATURE GRANULOCYTES-RELATIVE PERCENT (BEAKER) 0 % 0-1 (test rzln=0584) RAD, CHEST, 1 VIEW, NON [id number] 22:14:00Reason for exam:-> wheezingShould this be performed at the bedside?->YesFINAL REPORT EXAMINATION: AP PORTABLE CHEST RADIOGRAPH CLINICAL INDICATION: Wheezing IMPRESSION: Compared to 11/19/2018 New patchy and nodular opacities are noted in both lung bases, left greater than right. Although a component may reflect atelectasis, an evolving pneumonia and/or sequela from aspiration should also be considered. Although pulmonary edema would also be a consideration, the morphology and asymmetric distribution are atypical. Pulmonary infarct/hemorrhage would also be a consideration the appropriate clinical setting. Heart is borderline enlarged but stable. Mediastinal contours are grossly unchanged. No evidence of a pneumothorax. Results discussed with the nurse caring for the patient at time of dictation. The nurse will notify the appropriate on-call clinician. Signed: Myron Kennyeport Verified Date/ Time: 11/21/2018 22:14:36 Reading Location: [address] Reading Room 10: 14PMPOCT-GLUCOSE [id number] 21:43:00 Test Item Value Reference Range Comments POC-GLUCOSE METER (BEAKER) 195 mg/dL 70-110 TESTED AT [address] (test glbc=9013) [place] [id number] POCT-GLUCOSE [id number] 17:48:00 Test Item Value Reference Range Comments POC-GLUCOSE METER (BEAKER) 186 mg/dL 70-110 TESTED AT [address] (test cxcc=3112) [place] [id number] POCT-GLUCOSE [id number] 11:43:00 Test Item Value Reference Range Comments POC-GLUCOSE METER (BEAKER) 321 mg/dL 70-110 TESTED AT [address] (test fjfj=2173) [place] [address] POCT-GLUCOSE [id number] 07:57:00 Test Item Value Reference Range Comments POC-GLUCOSE METER (BEAKER) 185 mg/dL 70-110 TESTED AT [address] (test fcel=0729) [place] [address] [id number] 07:46:00 Test Item Value Reference Range Comments PHOSPHORUS (BEAKER) (test wyyd=750) 2.2 mg/dL 2.3-4.7 [id number] 07:46:00 Test Item Value Reference Range Comments MAGNESIUM (BEAKER) (test xlyb=502) 1.7 mg/dL 1.6-2.6 BASIC METABOLIC [id number] 07:46:00 Test Item Value Reference Range Comments SODIUM (BEAKER) (test 139 meq/L 136-145 wnzo=968) POTASSIUM (BEAKER) (test 3.3 meq/L 3.5-5.1 hbcd=773) CHLORIDE (BEAKER) (test 108 meq/L 98-107 mnuj=698) CO2 (BEAKER) (test 20 meq/L 22-29 rynz=010) BLOOD UREA NITROGEN 15 mg/dL 7-21 (BEAKER) (test mjyo=019) CREATININE (BEAKER) (test 1.26 mg/dL 0.57-1.25 gusb=717) GLUCOSE RANDOM (BEAKER) 117 mg/dL 70-105 (test mxoc=061) CALCIUM (BEAKER) (test 8.9 mg/dL 8.4-10.2 eulw=775) EGFR (BEAKER) (test 56 mL/min/1.73 sq m ESTIMATED GFR IS NOT eapg=5541) ACCURATE CREATININE CLEARANCE IN PREDICTING GLOMERULAR FILTRATION RATE. ESTIMATED GFR IS NOT APPLICABLE FOR DIALYSIS PATIENTS. CBC W/PLT COUNT & AUTO [id number] 07:14:00 Test Item Value Reference Range Comments WHITE BLOOD CELL COUNT (BEAKER) (test dbrt=448) 8.6 K/ L 3.5-10.5 RED BLOOD CELL COUNT (BEAKER) (test cynr=812) 3.49 M/ L 4.63-6.08 HEMOGLOBIN (BEAKER) (test knxv=121) 8.9 GM/DL 13.7-17.5 HEMATOCRIT (BEAKER) (test qotd=610) 29.5 % 40.1-51.0 MEAN CORPUSCULAR VOLUME (BEAKER) (test dvhc=623) 84.5 fL 79.0-92.2 MEAN CORPUSCULAR HEMOGLOBIN (BEAKER) (test 25.5 pg 25.7-32.2 jrhg=326) MEAN CORPUSCULAR HEMOGLOBIN CONC (BEAKER) (test 30.2 GM/DL 32.3-36.5 vjba=382) RED CELL DISTRIBUTION WIDTH (BEAKER) (test 21.2 % 11.6-14.4 mxkg=089) PLATELET COUNT (BEAKER) (test puye=812) 269 K/CU MM 150-450 MEAN PLATELET VOLUME (BEAKER) (test eowo=594) 11.3 fL 9.4-12.4 NUCLEATED RED BLOOD CELLS (BEAKER) (test 0 /100 WBC 0-0 fqek=082) NEUTROPHILS RELATIVE PERCENT (BEAKER) (test 63 % nqmh=520) LYMPHOCYTES RELATIVE PERCENT (BEAKER) (test 27 % ihpt=079) MONOCYTES RELATIVE PERCENT (BEAKER) (test 6 % rnnn=994) EOSINOPHILS RELATIVE PERCENT (BEAKER) (test 4 % phdo=255) BASOPHILS RELATIVE PERCENT (BEAKER) (test 1 % jeha=562) NEUTROPHILS ABSOLUTE COUNT (BEAKER) (test 5.40 K/ L 1.78-5.38 xjdx=981) LYMPHOCYTES ABSOLUTE COUNT (BEAKER) (test 2.30 K/ L 1.32-3.57 vgyr=592) MONOCYTES ABSOLUTE COUNT (BEAKER) (test 0.52 K/ L 0.30-0.82 lyci=082) EOSINOPHILS ABSOLUTE COUNT (BEAKER) (test 0.33 K/ L 0.04-0.54 itdb=278) BASOPHILS ABSOLUTE COUNT (BEAKER) (test 0.06 K/ L 0.01-0.08 ctnh=038) IMMATURE GRANULOCYTES-RELATIVE PERCENT (BEAKER) 0 % 0-1 (test xstr=8956) CALCIUM, [id number] 05:37:00 Test Item Value Reference Range Comments CALCIUM IONIZED (BEAKER) (test csir=411) 1.09 mmol/L 1.12-1.27 PH, BLOOD (BEAKER) (test fcff=1569) 7.45 POCT-GLUCOSE [id number] 20:52:00 Test Item Value Reference Range Comments POC-GLUCOSE METER (BEAKER) 134 mg/dL 70-110 TESTED AT [address] (test livr=2904) [facility] [address] CT, ABDOMEN, RENAL MASS, CYST [id number] 15:11:00Reason for exam:-> right renal massFINAL REPORT ABDOMINAL CT DATED 2018 COMPARISON: June 16, 2012 CLINICAL INFORMATION: right renal mass TECHNIQUE: Axial images of the abdomen were obtained from diaphragm to the upper pelvis with and without intravenous contrast. The study was performed with renal protocol. This exam was performed according to our departmental dose- optimization program, which includes automated exposure control, adjustment [...] 5.3 cm mass is seen in the midpoleright kidney. The mass is seen within the [...] with renal cell carcinoma. Signed: Lurdes Fernandes MDReport Verified Date/Time: 11/20/2018 15:11:56 Reading Location: [facility] C013Y CT Body Reading Room 03: 11 PMPOCT-GLUCOSE [id number] 12:13:00 Test Item Value Reference Range Comments POC-GLUCOSE METER (BEAKER) 221 mg/dL 70-110 TESTED AT [address] (test kqrp=9608) [facility] [address] POCT-GLUCOSE [id number] 12:10:00 Test Item Value Reference Range Comments POC-GLUCOSE METER (BEAKER) 148 mg/dL 70-110 TESTED AT [address] (test lply=4972) [facility] [address] [id number] 05:52:00 Test Item Value Reference Range Comments MAGNESIUM (BEAKER) (test 2.0 mg/dL 1.6-2.6 Specimen slightly hemolyzed fyzr=033) [id number] 05:52:00 Test Item Value Reference Range Comments PHOSPHORUS (BEAKER) (test 2.2 mg/dL 2.3-4.7 Specimen slightly hemolyzed vsqn=106) BASIC METABOLIC [id number] 05:52:00 Test Item Value Reference Range Comments SODIUM (BEAKER) (test 141 meq/L 136-145 kpjl=860) POTASSIUM (BEAKER) (test 3.7 meq/L 3.5-5.1 Specimen slightly mzhe=517) hemolyzed CHLORIDE (BEAKER) (test 111 meq/L 98-107 cjhh=883) CO2 (BEAKER) (test 19 meq/L 22-29 umqx=127) BLOOD UREA NITROGEN 18 mg/dL 7-21 (BEAKER) (test kmif=382) CREATININE (BEAKER) (test 1.33 mg/dL 0.57-1.25 Specimen slightly fpfc=322) hemolyzed GLUCOSE RANDOM (BEAKER) 133 mg/dL 70-105 (test fekd=826) CALCIUM (BEAKER) (test 9.1 mg/dL 8.4-10.2 fegq=969) EGFR (BEAKER) (test 52 mL/min/1.73 sq m ESTIMATED GFR IS NOT rcfv=2753) ACCURATE CREATININE CLEARANCE IN PREDICTING GLOMERULAR FILTRATION RATE. ESTIMATED GFR IS NOT APPLICABLE FOR DIALYSIS PATIENTS. CALCIUM, [id number] 05:46:00 Test Item Value Reference Range Comments CALCIUM IONIZED (BEAKER) (test slpm=698) 1.07 mmol/L 1.12-1.27 PH, BLOOD (BEAKER) (test leih=2218) 7.45 CBC W/PLT COUNT & AUTO [id number] 05:45:00 Test Item Value Reference Range Comments WHITE BLOOD CELL COUNT (BEAKER) (test haxw=376) 9.4 K/ L 3.5-10.5 RED BLOOD CELL COUNT (BEAKER) (test lxzz=886) 3.59 M/ L 4.63-6.08 HEMOGLOBIN (BEAKER) (test krmu=794) 8.9 GM/DL 13.7-17.5 HEMATOCRIT (BEAKER) (test pdrm=749) 30.6 % 40.1-51.0 MEAN CORPUSCULAR VOLUME (BEAKER) (test qswf=878) 85.2 fL 79.0-92.2 MEAN CORPUSCULAR HEMOGLOBIN (BEAKER) (test 24.8 pg 25.7-32.2 pnxq=294) MEAN CORPUSCULAR HEMOGLOBIN CONC (BEAKER) (test 29.1 GM/DL 32.3-36.5 grgs=145) RED CELL DISTRIBUTION WIDTH (BEAKER) (test 20.9 % 11.6-14.4 kyiw=230) PLATELET COUNT (BEAKER) (test bfzj=306) 300 K/CU MM 150-450 MEAN PLATELET VOLUME (BEAKER) (test yiut=541) 9.9 fL 9.4-12.4 NUCLEATED RED BLOOD CELLS (BEAKER) (test 0 /100 WBC 0-0 jlrg=807) NEUTROPHILS RELATIVE PERCENT (BEAKER) (test 68 % bicr=804) LYMPHOCYTES RELATIVE PERCENT (BEAKER) (test 23 % zabb=708) MONOCYTES RELATIVE PERCENT (BEAKER) (test 5 % yiga=101) EOSINOPHILS RELATIVE PERCENT (BEAKER) (test 3 % kfnj=669) BASOPHILS RELATIVE PERCENT (BEAKER) (test 1 % gxmi=063) NEUTROPHILS ABSOLUTE COUNT (BEAKER) (test 6.38 K/ L 1.78-5.38 soaz=455) LYMPHOCYTES ABSOLUTE COUNT (BEAKER) (test 2.18 K/ L 1.32-3.57 blhf=026) MONOCYTES ABSOLUTE COUNT (BEAKER) (test 0.50 K/ L 0.30-0.82 lprl=411) EOSINOPHILS ABSOLUTE COUNT (BEAKER) (test 0.28 K/ L 0.04-0.54 ncun=005) BASOPHILS ABSOLUTE COUNT (BEAKER) (test 0.05 K/ L 0.01-0.08 wdly=528) IMMATURE GRANULOCYTES-RELATIVE PERCENT (BEAKER) 0 % 0-1 (test nqhm=5976) RAD, ABDOMEN/KUB, 1 VIEW [id number] 00:47:00Reason for exam:->placement of dobhoff tube, thanksFINAL REPORT EXAMINATION: SUPINE ABDOMEN CLINICAL INDICATION: FEEDING TUBE PLACEMENT IMPRESSION: Tip of the feeding tube projects over the left upper abdomen in the region of the stomach. Signed: Myron [facility] Verified Date/Time: 11/20/2018 00:47:19 Reading Location: [address] Reading Room POCT-GLUCOSE [id number] 20:52:00 Test Item Value Reference Range Comments POC-GLUCOSE METER (BEAKER) 150 mg/dL 70-110 TESTED AT [address] (test awkd=9761) [facility] [address] POCT-GLUCOSE [id number] 19:47:00 Test Item Value Reference Range Comments POC-GLUCOSE METER (BEAKER) 179 mg/dL 70-110 TESTED AT [address] (test ycof=6723) [facility] [address] RAD, CHEST, 1 VIEW, NON [id number] 18:19:00After EGDReason for exam:->NG tube placementShould this be performed at the bedside?->YesFINAL REPORT INDICATION: NG tube placement COMPARISON: November 14, 2018 TECHNIQUE: Single frontal view of the chest. IMPRESSION:Limited by underpenetration. Enteric tube is present. Side port is not visible. Positioning is similar to that seen in the reference examination of October. There is no consolidation, effusion or pneumothorax. Mediastinal contours are stable. Signed: JR Watters Robert MDReport Verified Date/ Time: 11/19/2018 18:19:18 Reading Location: [facility] Radiology Reading Room POCT-GLUCOSE [id number] 16:55:00 Test Item Value Reference Range Comments POC-GLUCOSE METER (BEAKER) 172 mg/dL 70-110 TESTED AT [address] (test sohp=4686) [place] [id number] POCT-GLUCOSE [id number] 11:56:00 Test Item Value Reference Range Comments POC-GLUCOSE METER (BEAKER) 158 mg/dL 70-110 TESTED AT [address] (test xuky=4304) [place] [id number] POCT-GLUCOSE [id number] 07:17:00 Test Item Value Reference Range Comments POC-GLUCOSE METER (BEAKER) 142 mg/dL 70-110 TESTED AT [address] (test vmqf=3181) [place] [address] [id number] 06:49:00 Test Item Value Reference Range Comments PHOSPHORUS (BEAKER) (test mzio=317) 2.4 mg/dL 2.3-4.7 [id number] 06:49:00 Test Item Value Reference Range Comments MAGNESIUM (BEAKER) (test ehbe=986) 1.7 mg/dL 1.6-2.6 BASIC METABOLIC [id number] 06:49:00 Test Item Value Reference Range Comments SODIUM (BEAKER) (test 144 meq/L 136-145 ygek=188) POTASSIUM (BEAKER) (test 3.4 meq/L 3.5-5.1 ovgs=656) CHLORIDE (BEAKER) (test 111 meq/L 98-107 cypo=892) CO2 (BEAKER) (test 24 meq/L 22-29 wulc=007) BLOOD UREA NITROGEN 19 mg/dL 7-21 (BEAKER) (test xrds=346) CREATININE (BEAKER) (test 1.35 mg/dL 0.57-1.25 klbu=354) GLUCOSE RANDOM (BEAKER) 139 mg/dL 70-105 (test aphr=698) CALCIUM (BEAKER) (test 9.4 mg/dL 8.4-10.2 zxyl=032) EGFR (BEAKER) (test 52 mL/min/1.73 sq m ESTIMATED GFR IS NOT vsgp=3015) ACCURATE CREATININE CLEARANCE IN PREDICTING GLOMERULAR FILTRATION RATE. ESTIMATED GFR IS NOT APPLICABLE FOR DIALYSIS PATIENTS. CBC W/PLT COUNT & AUTO [id number] 06:48:00 Test Item Value Reference Range Comments WHITE BLOOD CELL COUNT (BEAKER) (test dlqp=368) 9.0 K/ L 3.5-10.5 RED BLOOD CELL COUNT (BEAKER) (test wncd=951) 3.60 M/ L 4.63-6.08 HEMOGLOBIN (BEAKER) (test zrgf=986) 9.0 GM/DL 13.7-17.5 HEMATOCRIT (BEAKER) (test rdua=530) 29.9 % 40.1-51.0 MEAN CORPUSCULAR VOLUME (BEAKER) (test nhqg=819) 83.1 fL 79.0-92.2 MEAN CORPUSCULAR HEMOGLOBIN (BEAKER) (test 25.0 pg 25.7-32.2 qwbv=924) MEAN CORPUSCULAR HEMOGLOBIN CONC (BEAKER) (test 30.1 GM/DL 32.3-36.5 dkty=436) RED CELL DISTRIBUTION WIDTH (BEAKER) (test 20.1 % 11.6-14.4 itjp=236) PLATELET COUNT (BEAKER) (test rzte=275) 342 K/CU MM 150-450 MEAN PLATELET VOLUME (BEAKER) (test tdbo=438) 9.6 fL 9.4-12.4 NUCLEATED RED BLOOD CELLS (BEAKER) (test 0 /100 WBC 0-0 bzsu=771) NEUTROPHILS RELATIVE PERCENT (BEAKER) (test 69 % loib=935) LYMPHOCYTES RELATIVE PERCENT (BEAKER) (test 22 % coqf=133) MONOCYTES RELATIVE PERCENT (BEAKER) (test 6 % prtg=201) EOSINOPHILS RELATIVE PERCENT (BEAKER) (test 2 % qbgs=544) BASOPHILS RELATIVE PERCENT (BEAKER) (test 1 % iucn=358) NEUTROPHILS ABSOLUTE COUNT (BEAKER) (test 6.19 K/ L 1.78-5.38 hipq=525) LYMPHOCYTES ABSOLUTE COUNT (BEAKER) (test 1.99 K/ L 1.32-3.57 ijbq=832) MONOCYTES ABSOLUTE COUNT (BEAKER) (test 0.52 K/ L 0.30-0.82 wjnz=875) EOSINOPHILS ABSOLUTE COUNT (BEAKER) (test 0.18 K/ L 0.04-0.54 wufk=376) BASOPHILS ABSOLUTE COUNT (BEAKER) (test 0.06 K/ L 0.01-0.08 liot=032) IMMATURE GRANULOCYTES-RELATIVE PERCENT (BEAKER) 0 % 0-1 (test mimk=3837) POCT-GLUCOSE [id number] 21:23:00 Test Item Value Reference Range Comments POC-GLUCOSE METER (BEAKER) 172 mg/dL 70-110 TESTED AT [address] (test rhtg=8096) [place] [id number] POCT-GLUCOSE [id number] 11:34:00 Test Item Value Reference Range Comments POC-GLUCOSE METER (BEAKER) 187 mg/dL 70-110 TESTED AT [address] (test ytcs=8966) [place] [id number] POCT-GLUCOSE [id number] 07:51:00 Test Item Value Reference Range Comments POC-GLUCOSE METER (BEAKER) 192 mg/dL 70-110 TESTED AT [address] (test xeed=1877) [place] [id number] CALCIUM, [id number] 06:19:00 Test Item Value Reference Range Comments CALCIUM IONIZED (BEAKER) (test cadi=589) 1.13 mmol/L 1.12-1.27 PH, BLOOD (BEAKER) (test bwdq=4463) 7.43 [id number] 06:03:00 Test Item Value Reference Range Comments PHOSPHORUS (BEAKER) (test yfyl=783) 2.5 mg/dL 2.3-4.7 [id number] 06:03:00 Test Item Value Reference Range Comments MAGNESIUM (BEAKER) (test ejsd=880) 1.5 mg/dL 1.6-2.6 BASIC METABOLIC [id number] 06:03:00 Test Item Value Reference Range Comments SODIUM (BEAKER) (test 140 meq/L 136-145 zvpz=679) POTASSIUM (BEAKER) (test 3.6 meq/L 3.5-5.1 xigq=685) CHLORIDE (BEAKER) (test 108 meq/L 98-107 sgsc=714) CO2 (BEAKER) (test 22 meq/L 22-29 auut=770) BLOOD UREA NITROGEN 21 mg/dL 7-21 (BEAKER) (test wksi=998) CREATININE (BEAKER) (test 1.40 mg/dL 0.57-1.25 onar=269) GLUCOSE RANDOM (BEAKER) 158 mg/dL 70-105 (test cpoz=018) CALCIUM (BEAKER) (test 9.1 mg/dL 8.4-10.2 lkoh=231) EGFR (BEAKER) (test 49 mL/min/1.73 sq m ESTIMATED GFR IS NOT mndb=7973) ACCURATE CREATININE CLEARANCE IN PREDICTING GLOMERULAR FILTRATION RATE. ESTIMATED GFR IS NOT APPLICABLE FOR DIALYSIS PATIENTS. CBC W/PLT COUNT & AUTO [id number] 05:41:00 Test Item Value Reference Range Comments WHITE BLOOD CELL COUNT (BEAKER) (test nraa=606) 10.1 K/ L 3.5-10.5 RED BLOOD CELL COUNT (BEAKER) (test tpqm=308) 3.56 M/ L 4.63-6.08 HEMOGLOBIN (BEAKER) (test bbai=643) 8.8 GM/DL 13.7-17.5 HEMATOCRIT (BEAKER) (test tzlc=814) 29.6 % 40.1-51.0 MEAN CORPUSCULAR VOLUME (BEAKER) (test ndhr=475) 83.1 fL 79.0-92.2 MEAN CORPUSCULAR HEMOGLOBIN (BEAKER) (test 24.7 pg 25.7-32.2 cvos=688) MEAN CORPUSCULAR HEMOGLOBIN CONC (BEAKER) (test 29.7 GM/DL 32.3-36.5 ulwu=809) RED CELL DISTRIBUTION WIDTH (BEAKER) (test 19.7 % 11.6-14.4 kqwr=964) PLATELET COUNT (BEAKER) (test mvsl=682) 337 K/CU MM 150-450 MEAN PLATELET VOLUME (BEAKER) (test ukeh=385) 10.3 fL 9.4-12.4 NUCLEATED RED BLOOD CELLS (BEAKER) (test 0 /100 WBC 0-0 aqzw=079) NEUTROPHILS RELATIVE PERCENT (BEAKER) (test 69 % urrp=728) LYMPHOCYTES RELATIVE PERCENT (BEAKER) (test 21 % vsut=604) MONOCYTES RELATIVE PERCENT (BEAKER) (test 6 % kflp=036) EOSINOPHILS RELATIVE PERCENT (BEAKER) (test 2 % twvh=217) BASOPHILS RELATIVE PERCENT (BEAKER) (test 1 % eqii=816) NEUTROPHILS ABSOLUTE COUNT (BEAKER) (test 6.98 K/ L 1.78-5.38 eosq=972) LYMPHOCYTES ABSOLUTE COUNT (BEAKER) (test 2.13 K/ L 1.32-3.57 unfu=846) MONOCYTES ABSOLUTE COUNT (BEAKER) (test 0.65 K/ L 0.30-0.82 mhir=151) EOSINOPHILS ABSOLUTE COUNT (BEAKER) (test 0.20 K/ L 0.04-0.54 uper=212) BASOPHILS ABSOLUTE COUNT (BEAKER) (test 0.05 K/ L 0.01-0.08 pgwq=225) IMMATURE GRANULOCYTES-RELATIVE PERCENT (BEAKER) 1 % 0-1 (test hyrg=4314) POCT-GLUCOSE [id number] 21:32:00 Test Item Value Reference Range Comments POC-GLUCOSE METER (BEAKER) 187 mg/dL 70-110 TESTED AT [address] (test lcoj=1691) [place] [address] POCT-GLUCOSE [id number] 17:16:00 Test Item Value Reference Range Comments POC-GLUCOSE METER (BEAKER) 174 mg/dL 70-110 TESTED AT [address] (test jfef=5388) [place] [address] POCT-GLUCOSE [id number] 11:52:00 Test Item Value Reference Range Comments POC-GLUCOSE METER (BEAKER) 172 mg/dL 70-110 TESTED AT [address] (test opqo=9953) [place] [address] BASIC METABOLIC [id number] 09:39:00 Test Item Value Reference Range Comments SODIUM (BEAKER) (test 140 meq/L 136-145 okpk=279) POTASSIUM (BEAKER) (test 3.9 meq/L 3.5-5.1 yzxr=170) CHLORIDE (BEAKER) (test 109 meq/L 98-107 cjkm=247) CO2 (BEAKER) (test 20 meq/L 22-29 djpf=057) BLOOD UREA NITROGEN 20 mg/dL 7-21 (BEAKER) (test yupt=092) CREATININE (BEAKER) (test 1.47 mg/dL 0.57-1.25 wmyd=951) GLUCOSE RANDOM (BEAKER) 138 mg/dL 70-105 (test dxyr=261) CALCIUM (BEAKER) (test 9.3 mg/dL 8.4-10.2 djrx=835) EGFR (BEAKER) (test 47 mL/min/1.73 sq m ESTIMATED GFR IS NOT aies=2938) ACCURATE CREATININE CLEARANCE IN PREDICTING GLOMERULAR FILTRATION RATE. ESTIMATED GFR IS NOT APPLICABLE FOR DIALYSIS PATIENTS. CBC (HEMOGRAM ONLY)2018-11-17 09:22:00 Test Item Value Reference Range Comments WHITE BLOOD CELL COUNT (BEAKER) (test lcwz=016) 9.9 K/ L 3.5-10.5 RED BLOOD CELL COUNT (BEAKER) (test tgjl=360) 3.62 M/ L 4.63-6.08 HEMOGLOBIN (BEAKER) (test jsir=060) 8.9 GM/DL 13.7-17.5 HEMATOCRIT (BEAKER) (test jdjw=338) 29.9 % 40.1-51.0 MEAN CORPUSCULAR VOLUME (BEAKER) (test ftjg=566) 82.6 fL 79.0-92.2 MEAN CORPUSCULAR HEMOGLOBIN (BEAKER) (test 24.6 pg 25.7-32.2 swcd=450) MEAN CORPUSCULAR HEMOGLOBIN CONC (BEAKER) (test 29.8 GM/DL 32.3-36.5 iiaw=212) RED CELL DISTRIBUTION WIDTH (BEAKER) (test 19.4 % 11.6-14.4 ijta=680) PLATELET COUNT (BEAKER) (test jfqu=141) 364 K/CU MM 150-450 MEAN PLATELET VOLUME (BEAKER) (test wzkb=060) 9.4 fL 9.4-12.4 NUCLEATED RED BLOOD CELLS (BEAKER) (test 0 /100 WBC 0-0 oktv=572) POCT-GLUCOSE [id number] 07:54:00 Test Item Value Reference Range Comments POC-GLUCOSE METER (BEAKER) 140 mg/dL 70-110 TESTED AT [address] (test lmuy=5108) [facility] [address] POCT-GLUCOSE [id number] 20:01:00 Test Item Value Reference Range Comments POC-GLUCOSE METER (BEAKER) 176 mg/dL 70-110 TESTED AT [address] (test cujx=8076) [facility] [address] POCT-GLUCOSE [id number] 17:51:00 Test Item Value Reference Range Comments POC-GLUCOSE METER (BEAKER) 168 mg/dL 70-110 TESTED AT [address] (test sqrf=6644) [facility] [address] POCT-GLUCOSE [id number] 11:41:00 Test Item Value Reference Range Comments POC-GLUCOSE METER (BEAKER) 164 mg/dL 70-110 TESTED AT [address] (test byxe=9350) [facility] [address] POCT-GLUCOSE [id number] 08:13:00 Test Item Value Reference Range Comments POC-GLUCOSE METER (BEAKER) 161 mg/dL 70-110 TESTED AT [address] (test hyor=5136) [facility] [address] COMPREHENSIVE METABOLIC [id number] 05:49:00 Test Item Value Reference Range Comments TOTAL PROTEIN (BEAKER) 7.0 gm/dL 6.0-8.3 (test lgxy=744) ALBUMIN (BEAKER) (test 3.8 g/dL 3.5-5.0 ygid=3158) ALKALINE PHOSPHATASE 70 U/L 40-150 (BEAKER) (test yned=716) BILIRUBIN TOTAL (BEAKER) 0.4 mg/dL 0.2-1.2 (test mphp=999) SODIUM (BEAKER) (test 139 meq/L 136-145 zipk=242) POTASSIUM (BEAKER) (test 3.8 meq/L 3.5-5.1 mevr=018) CHLORIDE (BEAKER) (test 107 meq/L 98-107 vhgu=280) CO2 (BEAKER) (test 22 meq/L 22-29 fqkw=267) BLOOD UREA NITROGEN 19 mg/dL 7-21 (BEAKER) (test fckl=745) CREATININE (BEAKER) (test 1.66 mg/dL 0.57-1.25 jcgz=577) GLUCOSE RANDOM (BEAKER) 137 mg/dL 70-105 (test tlgu=029) CALCIUM (BEAKER) (test 9.6 mg/dL 8.4-10.2 ebzm=509) AST (SGOT) (BEAKER) (test 9 U/L 5-34 hflo=062) ALT (SGPT) (BEAKER) (test 10 U/L 6-55 kfer=341) EGFR (BEAKER) (test 41 mL/min/1.73 sq m ESTIMATED GFR IS NOT fyev=3551) ACCURATE CREATININE CLEARANCE IN PREDICTING GLOMERULAR FILTRATION RATE. ESTIMATED GFR IS NOT APPLICABLE FOR DIALYSIS PATIENTS. CBC (HEMOGRAM ONLY)2018-11-16 05:28:00 Test Item Value Reference Range Comments WHITE BLOOD CELL COUNT (BEAKER) (test oowz=402) 11.1 K/ L 3.5-10.5 RED BLOOD CELL COUNT (BEAKER) (test giqb=650) 3.57 M/ L 4.63-6.08 HEMOGLOBIN (BEAKER) (test hypf=856) 8.8 GM/DL 13.7-17.5 HEMATOCRIT (BEAKER) (test nrbj=456) 29.4 % 40.1-51.0 MEAN CORPUSCULAR VOLUME (BEAKER) (test enlf=564) 82.4 fL 79.0-92.2 MEAN CORPUSCULAR HEMOGLOBIN (BEAKER) (test 24.6 pg 25.7-32.2 rdbl=138) MEAN CORPUSCULAR HEMOGLOBIN CONC (BEAKER) (test 29.9 GM/DL 32.3-36.5 ohog=201) RED CELL DISTRIBUTION WIDTH (BEAKER) (test 19.0 % 11.6-14.4 zyop=785) PLATELET COUNT (BEAKER) (test phsl=968) 381 K/CU MM 150-450 MEAN PLATELET VOLUME (BEAKER) (test lpfm=944) 9.7 fL 9.4-12.4 NUCLEATED RED BLOOD CELLS (BEAKER) (test 0 /100 WBC 0-0 gefb=146) POCT-GLUCOSE [id number] 21:10:00 Test Item Value Reference Range Comments POC-GLUCOSE METER (BEAKER) 133 mg/dL 70-110 TESTED AT [address] (test mbyc=4848) [facility] [address] POCT-GLUCOSE [id number] 18:30:00 Test Item Value Reference Range Comments POC-GLUCOSE METER (BEAKER) 158 mg/dL 70-110 TESTED AT [address] (test giiz=1992) [facility] [address] POCT-GLUCOSE [id number] 12:09:00 Test Item Value Reference Range Comments POC-GLUCOSE METER (BEAKER) 172 mg/dL 70-110 TESTED AT [address] (test oqvo=3731) [facility] [address] POCT-GLUCOSE [id number] 07:55:00 Test Item Value Reference Range Comments POC-GLUCOSE METER (BEAKER) 178 mg/dL 70-110 TESTED AT [address] (test xbyy=2048) [facility] [address] BASIC METABOLIC [id number] 07:20:00 Test Item Value Reference Range Comments SODIUM (BEAKER) (test 137 meq/L 136-145 rlju=205) POTASSIUM (BEAKER) (test 3.8 meq/L 3.5-5.1 vxng=401) CHLORIDE (BEAKER) (test 106 meq/L 98-107 hhwv=997) CO2 (BEAKER) (test 22 meq/L 22-29 ehep=556) BLOOD UREA NITROGEN 21 mg/dL 7-21 (BEAKER) (test bpzg=689) CREATININE (BEAKER) (test 1.56 mg/dL 0.57-1.25 tvos=614) GLUCOSE RANDOM (BEAKER) 142 mg/dL 70-105 (test inkr=815) CALCIUM (BEAKER) (test 9.3 mg/dL 8.4-10.2 odzz=497) EGFR (BEAKER) (test 44 mL/min/1.73 sq m ESTIMATED GFR IS NOT towu=6778) ACCURATE CREATININE CLEARANCE IN PREDICTING GLOMERULAR FILTRATION RATE. ESTIMATED GFR IS NOT APPLICABLE FOR DIALYSIS PATIENTS. B-TYPE NATRIURETIC FACTOR (BNP)2018-11-15 06:49:00 Test Item Value Reference Range Comments B-TYPE NATRIURETIC PEPTIDE (BEAKER) (test 172 pg/mL 0-100 hhsa=204) POCT-GLUCOSE [id number] 06:27:00 Test Item Value Reference Range Comments POC-GLUCOSE METER (BEAKER) 151 mg/dL 70-[address] [facility] [address] [facility] (test jbvr=7806) [facility] [address] CBC (HEMOGRAM ONLY)2018-11-15 06:21:00 Test Item Value Reference Range Comments WHITE BLOOD CELL COUNT (BEAKER) (test omao=797) 10.1 K/ L 3.5-10.5 RED BLOOD CELL COUNT (BEAKER) (test nmig=802) 3.42 M/ L 4.63-6.08 HEMOGLOBIN (BEAKER) (test tjva=765) 8.4 GM/DL 13.7-17.5 HEMATOCRIT (BEAKER) (test qdym=827) 27.6 % 40.1-51.0 MEAN CORPUSCULAR VOLUME (BEAKER) (test ttlv=751) 80.7 fL 79.0-92.2 MEAN CORPUSCULAR HEMOGLOBIN (BEAKER) (test 24.6 pg 25.7-32.2 rkfy=778) MEAN CORPUSCULAR HEMOGLOBIN CONC (BEAKER) (test 30.4 GM/DL 32.3-36.5 bdow=584) RED CELL DISTRIBUTION WIDTH (BEAKER) (test 18.5 % 11.6-14.4 aaex=819) PLATELET COUNT (BEAKER) (test tvmm=194) 383 K/CU MM 150-450 MEAN PLATELET VOLUME (BEAKER) (test ppdx=934) 10.1 fL 9.4-12.4 NUCLEATED RED BLOOD CELLS (BEAKER) (test 0 /100 WBC 0-0 lnpd=582) POCT-GLUCOSE [id number] 21:06:00 Test Item Value Reference Range Comments POC-GLUCOSE METER (BEAKER) 157 mg/dL 70-110 TESTED AT [address] (test nqum=8811) [facility] [address] RAD, CHEST, 1 VIEW, NON [id number] 19:50:00Reason for exam:->sob/shest painShould this be performed at the bedside?->YesFINAL REPORT Chest, AP view, two images. History: Shortness of breath. Chest pain. Comparison: 11/09/2013. Discussion: The cardiomediastinal silhouette and pulmonary vasculature are within normal limits. The lungs are clear without evidence of consolidation or effusion. Thereare no acute osseous abnormalities. The soft tissues are unremarkable. IMPRESSION: No acute cardiopulmonary abnormality. Signed: Luis Blanca Verified Date/Time : 11/14/2018 19:50:32 Reading Location: [facility] C[address] [facility] Reading Room RAD , ABDOMEN/KUB, 1 VIEW [id number] 19:02:00Reason for exam:->Check NGT placementPt is hard of hearing, please take directly and clearly to him.Should this be performed at the bedside?->YesFINAL REPORT CLINICAL HISTORY: NG tube placement COMPARISON: Same date at 1443 hours FINDINGS : A single supine view of a portion of the upper abdomen is submitted. The tip of anenteric tube overlies the left upper quadrant in the expected position of the proximal stomach. The examination is otherwise stable. Signed: Sarmad Rivera Verified Date/Time: 11/14/2018 19:02:06 Reading Location: [address] Reading Room POCT-GLUCOSE [id number] 17:34:00 Test Item Value Reference Range Comments POC-GLUCOSE METER (BEAKER) 136 mg/dL 70-[address] [facility] [address] [facility] (test ddla=7541) [facility] [address] TROPONIN [id number] 16:18:00 Test Item Value Reference Range Comments TROPONIN I (BEAKER) (test drxq=990) < ng/mL 0.00-0.03 Troponin I (TnI) levels must be interpreted in the context of the presenting symptoms and the clinical findings. Elevated TnI levels indicate myocardial damage, but are not specific for ischemic heart disease. Elevated TnI levels are seen in patients with other cardiac conditions (including myocarditis and congestive heart failure), and slight TnI elevations occur in patients with other conditions, including sepsis, renal failure, acidosis, acute neurological disease, and persistent tachyarrhythmia.CREATINE KINASE (CK)2018-11-14 16:11:00 Test Item Value Reference Range Comments CREATINE KINASE TOTAL (BEAKER) (test gsnl=057) 68 U/L 29-200 RAD, ABDOMEN/KUB, 1 VIEW [id number] 15:36:00Reason for exam:->Abdominal distension; VomitingShould this be performed at the bedside?->YesFINAL REPORT Abdomen x-ray Clinical Diagnosis: Abdominal distention and vomitingComparison: No comparisonViews: Four Report:Abdomen: There is a nonspecific bowel gas pattern. There is no evidence of GI tract obstruction. 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 There is a groundglass appearance to the abdomen which may be secondary to ascites, the patient's body habitus and/or technique . There is no evidence of a soft tissue mass or calcification . Postoperative changes are visualized in the right upper quadrant. . There is no mural edema or definite free intraperitoneal air. Impression:Nonspecific abdomen x -ray. Dilated air-filled loops of small and large bowel may be secondary to an ileus. Signed: Delaney Ortiz Verified Date/Time: 11/14/2018 15:36:02 Reading Location: [facility] C013W Consult Reading Room POCT-GLUCOSE [id number] 12:10: 00 Test Item Value Reference Range Comments POC-GLUCOSE METER (BEAKER) 195 mg/dL 70-110 TESTED AT [address] (test lchs=3001) [facility] [address] POCT-GLUCOSE [id number] 08:00:00 Test Item Value Reference Range Comments POC-GLUCOSE METER (BEAKER) 195 mg/dL 70-110 TESTED AT [address] (test huiq=1329) [facility] [address] COMPREHENSIVE METABOLIC [id number] 06:10:00 Test Item Value Reference Range Comments TOTAL PROTEIN (BEAKER) 7.1 gm/dL 6.0-8.3 (test roqs=898) ALBUMIN (BEAKER) (test 3.8 g/dL 3.5-5.0 daml=9624) ALKALINE PHOSPHATASE 78 U/L 40-150 (BEAKER) (test gryz=719) BILIRUBIN TOTAL (BEAKER) 0.3 mg/dL 0.2-1.2 (test ofog=902) SODIUM (BEAKER) (test 136 meq/L 136-145 ssab=416) POTASSIUM (BEAKER) (test 4.0 meq/L 3.5-5.1 xxgo=456) CHLORIDE (BEAKER) (test 107 meq/L 98-107 yszt=250) CO2 (BEAKER) (test 19 meq/L 22-29 vsll=047) BLOOD UREA NITROGEN 25 mg/dL 7-21 (BEAKER) (test uoyf=050) CREATININE (BEAKER) (test 1.67 mg/dL 0.57-1.25 wvaq=563) GLUCOSE RANDOM (BEAKER) 177 mg/dL 70-105 (test bgxh=794) CALCIUM (BEAKER) (test 9.4 mg/dL 8.4-10.2 tbej=201) AST (SGOT) (BEAKER) (test 9 U/L 5-34 tmec=383) ALT (SGPT) (BEAKER) (test 10 U/L 6-55 pszs=425) EGFR (BEAKER) (test 40 mL/min/1.73 sq m ESTIMATED GFR IS NOT flkt=4200) ACCURATE CREATININE CLEARANCE IN PREDICTING GLOMERULAR FILTRATION RATE. ESTIMATED GFR IS NOT APPLICABLE FOR DIALYSIS PATIENTS. PROTHROMBIN TIME/[id number] 05:59:00 Test Item Value Reference Range Comments PROTIME (BEAKER) (test sswx=531) 17.4 seconds 11.7-14.7 INR (BEAKER) (test qqay=580) 1.4 <=5.9 RECOMMENDED COUMADIN/WARFARIN INR THERAPY RANGESSTANDARD DOSE: 2.0 - 3.0 Includes: PROPHYLAXIS forvenous thrombosis, systemic embolization; TREATMENT for venous thrombosis and/or pulmonary embolus.HIGH RISK: Target INR is 2.5-3.5 for patients with mechanical heart valves.CBC W/PLT COUNT & AUTO [id number] 05:45:00 Test Item Value Reference Range Comments WHITE BLOOD CELL COUNT (BEAKER) (test ylej=929) 11.1 K/ L 3.5-10.5 RED BLOOD CELL COUNT (BEAKER) (test qsht=188) 3.63 M/ L 4.63-6.08 HEMOGLOBIN (BEAKER) (test uoga=106) 8.8 GM/DL 13.7-17.5 HEMATOCRIT (BEAKER) (test kqif=613) 29.8 % 40.1-51.0 MEAN CORPUSCULAR VOLUME (BEAKER) (test qbgf=914) 82.1 fL 79.0-92.2 MEAN CORPUSCULAR HEMOGLOBIN (BEAKER) (test 24.2 pg 25.7-32.2 shjs=073) MEAN CORPUSCULAR HEMOGLOBIN CONC (BEAKER) (test 29.5 GM/DL 32.3-36.5 sida=085) RED CELL DISTRIBUTION WIDTH (BEAKER) (test 18.4 % 11.6-14.4 bgfn=823) PLATELET COUNT (BEAKER) (test qqao=543) 369 K/CU MM 150-450 MEAN PLATELET VOLUME (BEAKER) (test oaio=455) 9.6 fL 9.4-12.4 NUCLEATED RED BLOOD CELLS (BEAKER) (test 0 /100 WBC 0-0 kayw=771) NEUTROPHILS RELATIVE PERCENT (BEAKER) (test 72 % pkcy=059) LYMPHOCYTES RELATIVE PERCENT (BEAKER) (test 17 % dset=877) MONOCYTES RELATIVE PERCENT (BEAKER) (test 8 % rvuw=864) EOSINOPHILS RELATIVE PERCENT (BEAKER) (test 2 % asyb=859) BASOPHILS RELATIVE PERCENT (BEAKER) (test 1 % gwnk=096) NEUTROPHILS ABSOLUTE COUNT (BEAKER) (test 7.98 K/ L 1.78-5.38 hcxz=697) LYMPHOCYTES ABSOLUTE COUNT (BEAKER) (test 1.92 K/ L 1.32-3.57 cxsb=280) MONOCYTES ABSOLUTE COUNT (BEAKER) (test 0.86 K/ L 0.30-0.82 uklv=687) EOSINOPHILS ABSOLUTE COUNT (BEAKER) (test 0.19 K/ L 0.04-0.54 vvhc=937) BASOPHILS ABSOLUTE COUNT (BEAKER) (test 0.06 K/ L 0.01-0.08 ocsq=509) IMMATURE GRANULOCYTES-RELATIVE PERCENT (BEAKER) 1 % 0-1 (test ovhb=7936) U/S, RENAL, [id number] 00:34:00Reason for exam:->Right renal massShould this be performed at the bedside?->YesFINAL REPORT U/S, RENAL, COMPLETE CLINICAL INDICATION: Right renal mass COMPARISON : CT renal protocol May 2012 TECHNIQUE: The kidneys and urinary bladder were evaluated using real time sanches scale and color Doppler sonography. FINDINGS:Right kidney: Size: cm. Parenchyma: A hyperechoic mass within the right renal midpole measures 4.3 x 5.3 x 4.7 cm and likely corresponds to mass seen on prior CT renal protocol May 2012. As on prior exam, this mass is highly suspicious for malignancy and demonstrates increased vascularity.Hydronephrosis: None. Left kidney: Left kidney is suboptimally evaluated due to suboptimal acoustic window. Size: 10.1 x 6.4 x3.5 cm. Renal cortical thickness is 1.3 cm. Parenchyma: Normal echogenicity. No cysts. No stones. Hydronephrosis: None. Renal Vasculature: Doppler interrogation reveals preserved vascular flow in the main renal arteries and veins bilaterally. Urinary bladder: Unremarkable. Additional findings: None. IMPRESSION: A hyperechoic mass within the right renal midpole measures 4.3 x 5.3 x 4.7 cm and likely corresponds to mass seen on prior CT renal protocol May 2012. As on prior exam, this mass is highly suspicious for malignancy and demonstrates increased vascularity. The mass has enlarged significantly in the interim compared to prior CT 2011. Signed: Jeff Sanford MDReport Verified Date/Time: 11/14/2018 00:34:34 Reading Location: [address] Neuro Reading Room Electronically signed by: JEFF SANFORD MD on 2018 12:34 AMPOCT-GLUCOSE [id number] 21:25:00 Test Item Value Reference Range Comments POC-GLUCOSE METER (BEAKER) 155 mg/dL 70-110 TESTED AT [address] (test yiyt=1203) [facility] [address] POCT-GLUCOSE [id number] 17:31:00 Test Item Value Reference Range Comments POC-GLUCOSE METER (BEAKER) 144 mg/dL 70-110 TESTED AT [address] (test utir=4563) [facility] [address] POCT-GLUCOSE [id number] 15:39:00 Test Item Value Reference Range Comments POC-GLUCOSE METER (BEAKER) 156 mg/dL 70-110 TESTED AT [address] (test hmvr=3353) [facility] [address] POCT-GLUCOSE [id number] 12:28:00 Test Item Value Reference Range Comments POC-GLUCOSE METER (BEAKER) 162 mg/dL 70-110 TESTED AT [address] (test xoux=3506) [facility] [address] POCT-GLUCOSE [id number] 11:40:00 Test Item Value Reference Range Comments POC-GLUCOSE METER (BEAKER) 159 mg/dL 70-110 TESTED AT [address] (test epuu=7998) [facility] [address] HEMOGLOBIN [id number] 09:40:00 Test Item Value Reference Range Comments HEMOGLOBIN A1C (BEAKER) (test fjsg=991) 6.5 % 4.3-6.1 POCT-GLUCOSE [id number] 08:19:00 Test Item Value Reference Range Comments POC-GLUCOSE METER (BEAKER) 162 mg/dL 70-110 TESTED AT [address] (test izjk=7336) [facility] [address] OSMOLALITY, [id number] 07:44:00 Test Item Value Reference Range Comments OSMOLALITY URINE (BEAKER) 381 mOsm/kg 40-1,400 This is a corrected result. (test ivyc=644) Previous result was 292 mOsm/kg on 11/13/2018 at 0731 [employer]CIAL [employer]ER OSMOLALITY, [id number] 07:32:00 Test Item Value Reference Range Comments OSMOLALITY, SERUM (BEAKER) (test wdne=073) 292 mOsm/kg 275-295 CALCIUM, [id number] 07:20:00 Test Item Value Reference Range Comments CALCIUM IONIZED (BEAKER) (test jejd=909) 1.11 mmol/L 1.12-1.27 PH, BLOOD (BEAKER) (test beiv=3082) 7.44 TSH/FREE T4 IF [id number] 06:26:00 Test Item Value Reference Range Comments THYROID STIMULATING HORMONE (BEAKER) (test 2.50 uIU/mL 0.35-4.94 okwz=137) TROPONIN [id number] 06:04:00 Test Item Value Reference Range Comments TROPONIN I (BEAKER) (test xpge=743) < ng/mL 0.00-0.03 Troponin I (TnI) levels must be interpreted in the context of the presenting symptoms and the clinical findings. Elevated TnI levels indicate myocardial damage, but are not specific for ischemic heart disease. Elevated TnI levels are seen in patients with other cardiac conditions (including myocarditis and congestive heart failure), and slight TnI elevations occur in patients with other conditions, including sepsis, renal failure, acidosis, acute neurological disease, and persistent tachyarrhythmia.[id number] 06:02:00 Test Item Value Reference Range Comments PHOSPHORUS (BEAKER) (test hxfl=003) 2.7 mg/dL 2.3-4.7 [id number] 06:02:00 Test Item Value Reference Range Comments MAGNESIUM (BEAKER) (test pnld=991) 2.3 mg/dL 1.6-2.6 COMPREHENSIVE METABOLIC [id number] 06:02:00 Test Item Value Reference Range Comments TOTAL PROTEIN (BEAKER) 6.9 gm/dL 6.0-8.3 (test czwo=241) ALBUMIN (BEAKER) (test 3.6 g/dL 3.5-5.0 ikih=6573) ALKALINE PHOSPHATASE 77 U/L 40-150 (BEAKER) (test ucjq=377) BILIRUBIN TOTAL (BEAKER) 0.4 mg/dL 0.2-1.2 (test ynqo=376) SODIUM (BEAKER) (test 132 meq/L 136-145 mwvw=620) POTASSIUM (BEAKER) (test 4.7 meq/L 3.5-5.1 cdtn=904) CHLORIDE (BEAKER) (test 102 meq/L 98-107 elat=533) CO2 (BEAKER) (test 22 meq/L 22-29 qivf=405) BLOOD UREA NITROGEN 36 mg/dL 7-21 (BEAKER) (test tkkp=370) CREATININE (BEAKER) (test 1.86 mg/dL 0.57-1.25 bnfe=010) GLUCOSE RANDOM (BEAKER) 144 mg/dL 70-105 (test coat=810) CALCIUM (BEAKER) (test 9.1 mg/dL 8.4-10.2 supo=497) AST (SGOT) (BEAKER) (test 9 U/L 5-34 myqb=903) ALT (SGPT) (BEAKER) (test 10 U/L 6-55 eukq=378) EGFR (BEAKER) (test 36 mL/min/1.73 sq m ESTIMATED GFR IS NOT fbeq=8803) ACCURATE CREATININE CLEARANCE IN PREDICTING GLOMERULAR FILTRATION RATE. ESTIMATED GFR IS NOT APPLICABLE FOR DIALYSIS PATIENTS. CREATINE KINASE (CK)2018-11-13 06:02:00 Test Item Value Reference Range Comments CREATINE KINASE TOTAL (BEAKER) (test qnwa=477) 90 U/L 29-200 URINALYSIS W/ [id number] 06:00:00 Test Item Value Reference Range Comments COLOR (BEAKER) (test vnwr=149) Yellow CLARITY (BEAKER) (test hbey=326) Hazy SPECIFIC GRAVITY UA (BEAKER) (test jcqd=342) 1.010 1.001-1.035 PH UA (BEAKER) (test cvro=331) 5.5 5.0-8.0 PROTEIN UA (BEAKER) (test icdv=329) Negative Negative GLUCOSE UA (BEAKER) (test esev=209) Negative Negative KETONES UA (BEAKER) (test tcvr=093) Negative Negative BILIRUBIN UA (BEAKER) (test cypa=740) Negative Negative BLOOD UA (BEAKER) (test jmgp=152) Negative Negative NITRITE UA (BEAKER) (test ucnv=761) Negative Negative LEUKOCYTE ESTERASE UA (BEAKER) (test rpfy=571) Large Negative UROBILINOGEN UA (BEAKER) (test qyvf=965) 0.2 mg/dL 0.2-1.0 RBC UA (BEAKER) (test akvl=737) 1 /HPF WBC UA (BEAKER) (test pjul=663) 66 /HPF BACTERIA (BEAKER) (test liwm=313) Many SQUAMOUS EPITHELIAL (BEAKER) (test poym=394) 1 /HPF SOURCE(BEAKER) (test ayjd=1124) B-TYPE NATRIURETIC FACTOR (BNP)2018-11-13 05:58:00 Test Item Value Reference Range Comments B-TYPE NATRIURETIC PEPTIDE (BEAKER) (test jnzh=678) 88 pg/mL 0-100 PROTHROMBIN TIME/[id number] 05:39:00 Test Item Value Reference Range Comments PROTIME (BEAKER) (test txgm=819) 18.3 seconds 11.7-14.7 INR (BEAKER) (test eyjr=807) 1.5 <=5.9 RECOMMENDED COUMADIN/WARFARIN INR THERAPY RANGESSTANDARD DOSE: 2.0 - 3.0 Includes: PROPHYLAXIS forvenous thrombosis, systemic embolization; TREATMENT for venous thrombosis and/or pulmonary embolus.HIGH RISK: Target INR is 2.5-3.5 for patients with mechanical heart valves.CBC W/PLT COUNT & AUTO [id number] 05:31:00 Test Item Value Reference Range Comments WHITE BLOOD CELL COUNT (BEAKER) (test wqym=064) 11.8 K/ L 3.5-10.5 RED BLOOD CELL COUNT (BEAKER) (test nmue=497) 3.44 M/ L 4.63-6.08 HEMOGLOBIN (BEAKER) (test cjyo=118) 8.5 GM/DL 13.7-17.5 HEMATOCRIT (BEAKER) (test qyfc=045) 27.6 % 40.1-51.0 MEAN CORPUSCULAR VOLUME (BEAKER) (test dcpn=949) 80.2 fL 79.0-92.2 MEAN CORPUSCULAR HEMOGLOBIN (BEAKER) (test 24.7 pg 25.7-32.2 ksfy=851) MEAN CORPUSCULAR HEMOGLOBIN CONC (BEAKER) (test 30.8 GM/DL 32.3-36.5 xgnw=308) RED CELL DISTRIBUTION WIDTH (BEAKER) (test 18.4 % 11.6-14.4 eilx=908) PLATELET COUNT (BEAKER) (test mcbm=158) 360 K/CU MM 150-450 MEAN PLATELET VOLUME (BEAKER) (test quqz=565) 9.6 fL 9.4-12.4 NUCLEATED RED BLOOD CELLS (BEAKER) (test 0 /100 WBC 0-0 bcpo=136) NEUTROPHILS RELATIVE PERCENT (BEAKER) (test 66 % wony=262) LYMPHOCYTES RELATIVE PERCENT (BEAKER) (test 24 % nbgi=240) MONOCYTES RELATIVE PERCENT (BEAKER) (test 7 % xlnp=500) EOSINOPHILS RELATIVE PERCENT (BEAKER) (test 2 % onmp=162) BASOPHILS RELATIVE PERCENT (BEAKER) (test 1 % nztl=204) NEUTROPHILS ABSOLUTE COUNT (BEAKER) (test 7.75 K/ L 1.78-5.38 szng=079) LYMPHOCYTES ABSOLUTE COUNT (BEAKER) (test 2.84 K/ L 1.32-3.57 ehon=945) MONOCYTES ABSOLUTE COUNT (BEAKER) (test 0.83 K/ L 0.30-0.82 fwne=154) EOSINOPHILS ABSOLUTE COUNT (BEAKER) (test 0.23 K/ L 0.04-0.54 lhcc=816) BASOPHILS ABSOLUTE COUNT (BEAKER) (test 0.06 K/ L 0.01-0.08 gfrj=257) IMMATURE GRANULOCYTES-RELATIVE PERCENT (BEAKER) 1 % 0-1 (test nprs=3649) PROTEIN, RANDOM [id number] 03:02:00 Test Item Value Reference Range Comments PROTEIN, URINE (BEAKER) (test ueum=1834) < mg/dL 0-14 CREATININE, RANDOM [id number] 02:56:00 Test Item Value Reference Range Comments CREATININE URINE (BEAKER) (test qhvz=144) 63.6 mg/dL Reference Range: No NormalsSODIUM, RANDOM [id number] 02:56:00 Test Item Value Reference Range Comments SODIUM URINE (BEAKER) (test lkba=938) 83 meq/L Reference Range: No NormalsHEMOGLOBIN AND [id number] 01:12:00 Test Item Value Reference Range Comments HEMOGLOBIN (BEAKER) (test atcx=010) 8.8 GM/DL 13.7-17.5 HEMATOCRIT (BEAKER) (test gaja=584) 28.1 % 40.1-51.0 POCT-GLUCOSE [id number] 21:32:00 Test Item Value Reference Range Comments POC-GLUCOSE METER (BEAKER) 142 mg/dL 70-110 TESTED AT [address] (test wskg=9111) [place] [id number] POCT-GLUCOSE [id number] 16:46:00 Test Item Value Reference Range Comments POC-GLUCOSE METER (BEAKER) 134 mg/dL 70-110 TESTED AT [address] (test awtn=5847) [place] [id number] HEMOGLOBIN AND [id number] 16:15:00 Test Item Value Reference Range Comments HEMOGLOBIN (BEAKER) (test hmpe=967) 8.8 GM/DL 13.7-17.5 HEMATOCRIT (BEAKER) (test kbnv=424) 28.4 % 40.1-51.0 POCT-GLUCOSE [id number] 13:55:00 Test Item Value Reference Range Comments POC-GLUCOSE METER (BEAKER) 199 mg/dL 70-110 TESTED AT [address] (test rktv=2099) [facility] [address] HEMOGLOBIN AND [id number] 12:41:00 Test Item Value Reference Range Comments HEMOGLOBIN (BEAKER) (test iuso=995) 8.5 GM/DL 13.7-17.5 HEMATOCRIT (BEAKER) (test tzrf=389) 28.1 % 40.1-51.0 [id number] 04:05:00 Test Item Value Reference Range Comments FERRITIN (BEAKER) (test ptdz=893) 40 ng/mL 5-275 IRON, TIBC, % SAT. (WITHOUT FERRITIN)2018-11-12 03:43:00 Test Item Value Reference Range Comments IRON (BEAKER) (test liyk=627) 51.0 ug/dL 40.0-160.0 TOTAL IRON BINDING CAPACITY (BEAKER) (test 374 ug/dL 250-450 vjdc=413) IRON % SATURATION (2) (BEAKER) (test gkam=8084) 14 % 20-55 RETICULOCYTE [id number] 03:41:00 Test Item Value Reference Range Comments RETICULOCYTE COUNT PCT (BEAKER) (test clmh=812) 2.8 % 0.5-1.8 URINALYSIS W/ REFLEX URINE [id number] 03:33:00 Test Item Value Reference Range Comments COLOR (BEAKER) (test nlqp=289) Light Yellow CLARITY (BEAKER) (test nrgp=874) Clear SPECIFIC GRAVITY UA (BEAKER) (test qzre=067) 1.005 1.001-1.035 PH UA (BEAKER) (test sste=984) 5.5 5.0-8.0 PROTEIN UA (BEAKER) (test zeec=515) Negative Negative GLUCOSE UA (BEAKER) (test vtdj=563) Negative Negative KETONES UA (BEAKER) (test vnje=249) Negative Negative BILIRUBIN UA (BEAKER) (test crhf=195) Negative Negative BLOOD UA (BEAKER) (test qmjd=075) Negative Negative NITRITE UA (BEAKER) (test bvhy=002) Negative Negative LEUKOCYTE ESTERASE UA (BEAKER) (test kmou=920) Small Negative UROBILINOGEN UA (BEAKER) (test jgyt=105) 0.2 mg/dL 0.2-1.0 RBC UA (BEAKER) (test mapf=504) 1 /HPF WBC UA (BEAKER) (test jyxp=519) 10 /HPF SQUAMOUS EPITHELIAL (BEAKER) (test oejp=231) < /HPF HYALINE CASTS (BEAKER) (test dtts=908) 1 /LPF CRYSTALS, URINE (BEAKER) (test towp=5804) Rare AMORPHOUS CRYSTALS (BEAKER) (test agua=7449) Occasional SOURCE(BEAKER) (test lgmm=6702) COMPREHENSIVE METABOLIC [id number] 01:37:00 Test Item Value Reference Range Comments TOTAL PROTEIN (BEAKER) 7.2 gm/dL 6.0-8.3 Specimen slightly (test bjso=554) hemolyzed ALBUMIN (BEAKER) (test 3.8 g/dL 3.5-5.0 Specimen slightly wift=9035) hemolyzed ALKALINE PHOSPHATASE 82 U/L 40-150 (BEAKER) (test imck=011) BILIRUBIN TOTAL (BEAKER) 0.5 mg/dL 0.2-1.2 Specimen slightly (test rgpv=605) hemolyzed SODIUM (BEAKER) (test 128 meq/L 136-145 zwea=455) POTASSIUM (BEAKER) (test 5.1 meq/L 3.5-5.1 Specimen slightly utuh=505) hemolyzed CHLORIDE (BEAKER) (test 99 meq/L 98-107 esst=141) CO2 (BEAKER) (test 19 meq/L 22-29 nsbz=921) BLOOD UREA NITROGEN 36 mg/dL 7-21 (BEAKER) (test esiw=483) CREATININE (BEAKER) (test 1.86 mg/dL 0.57-1.25 Specimen slightly gyqe=474) hemolyzed GLUCOSE RANDOM (BEAKER) 117 mg/dL 70-105 (test qicq=563) CALCIUM (BEAKER) (test 9.0 mg/dL 8.4-10.2 rhpa=479) AST (SGOT) (BEAKER) (test 13 U/L 5-34 Specimen slightly ummd=348) hemolyzed ALT (SGPT) (BEAKER) (test 10 U/L 6-55 Specimen slightly tsgy=362) hemolyzed EGFR (BEAKER) (test 36 mL/min/1.73 sq m ESTIMATED GFR IS NOT vdgb=4208) ACCURATE CREATININE CLEARANCE IN PREDICTING GLOMERULAR FILTRATION RATE. ESTIMATED GFR IS NOT APPLICABLE FOR DIALYSIS PATIENTS. PROTHROMBIN [id number] 01:05:00 Test Item Value Reference Range Comments PROTIME (BEAKER) (test twwb=504) 18.4 seconds 11.7-14.7 INR (BEAKER) (test xfkf=663) 1.5 <=5.9 RECOMMENDED COUMADIN/WARFARIN INR THERAPY RANGESSTANDARD DOSE: 2.0 - 3.0 Includes: PROPHYLAXIS forvenous thrombosis, systemic embolization; TREATMENT for venous thrombosis and/or pulmonary embolus.HIGH RISK: Target INR is 2.5-3.5 for patients with mechanical heart valves.CBC W/PLT COUNT & AUTO [id number] 00:57:00 Test Item Value Reference Range Comments WHITE BLOOD CELL COUNT (BEAKER) (test gfqy=185) 10.3 K/ L 3.5-10.5 RED BLOOD CELL COUNT (BEAKER) (test bkxn=256) 3.37 M/ L 4.63-6.08 HEMOGLOBIN (BEAKER) (test mbei=181) 8.4 GM/DL 13.7-17.5 HEMATOCRIT (BEAKER) (test mvuq=691) 26.9 % 40.1-51.0 MEAN CORPUSCULAR VOLUME (BEAKER) (test xnqn=493) 79.8 fL 79.0-92.2 MEAN CORPUSCULAR HEMOGLOBIN (BEAKER) (test 24.9 pg 25.7-32.2 mtjk=971) MEAN CORPUSCULAR HEMOGLOBIN CONC (BEAKER) (test 31.2 GM/DL 32.3-36.5 sqvs=704) RED CELL DISTRIBUTION WIDTH (BEAKER) (test 18.0 % 11.6-14.4 xqnw=989) PLATELET COUNT (BEAKER) (test ncjs=658) 334 K/CU MM 150-450 MEAN PLATELET VOLUME (BEAKER) (test coxg=212) 9.3 fL 9.4-12.4 NUCLEATED RED BLOOD CELLS (BEAKER) (test 0 /100 WBC 0-0 otvk=502) NEUTROPHILS RELATIVE PERCENT (BEAKER) (test 61 % aspm=620) LYMPHOCYTES RELATIVE PERCENT (BEAKER) (test 27 % agvy=094) MONOCYTES RELATIVE PERCENT (BEAKER) (test 8 % fyyq=164) EOSINOPHILS RELATIVE PERCENT (BEAKER) (test 3 % ocej=259) BASOPHILS RELATIVE PERCENT (BEAKER) (test 1 % yuzv=047) NEUTROPHILS ABSOLUTE COUNT (BEAKER) (test 6.30 K/ L 1.78-5.38 fuhz=325) LYMPHOCYTES ABSOLUTE COUNT (BEAKER) (test 2.73 K/ L 1.32-3.57 beox=887) MONOCYTES ABSOLUTE COUNT (BEAKER) (test 0.85 K/ L 0.30-0.82 wwng=458) EOSINOPHILS ABSOLUTE COUNT (BEAKER) (test 0.30 K/ L 0.04-0.54 xkoo=976) BASOPHILS ABSOLUTE COUNT (BEAKER) (test 0.05 K/ L 0.01-0.08 uhua=091) IMMATURE GRANULOCYTES-RELATIVE PERCENT (BEAKER) 1 % 0-1 (test yowp=5656) POCT-GLUCOSE [id number] 21:06:00 Test Item Value Reference Range Comments POC-GLUCOSE METER (BEAKER) 138 mg/dL 70-[address] [facility] [address] [facility] (test dzgk=6464) [facility] [address] BASIC METABOLIC [id number] 08:06:00 Test Item Value Reference Range Comments SODIUM (BEAKER) (test 140 meq/L 136-145 jtej=894) POTASSIUM (BEAKER) (test 3.7 meq/L 3.5-5.1 qgkd=783) CHLORIDE (BEAKER) (test 106 meq/L 98-107 tlre=033) CO2 (BEAKER) (test 26 meq/L 22-29 amfv=130) BLOOD UREA NITROGEN 18 mg/dL 7-21 (BEAKER) (test cppv=290) CREATININE (BEAKER) (test 0.93 mg/dL 0.57-1.25 zycx=306) GLUCOSE RANDOM (BEAKER) 118 mg/dL 70-105 (test tckd=075) CALCIUM (BEAKER) (test 9.0 mg/dL 8.4-10.2 yetz=842) EGFR (BEAKER) (test 79 mL/min/1.73 sq m ESTIMATED GFR IS NOT imkt=5414) ACCURATE CREATININE CLEARANCE IN PREDICTING GLOMERULAR FILTRATION RATE. ESTIMATED GFR IS NOT APPLICABLE FOR DIALYSIS PATIENTS. CBC W/PLT COUNT & AUTO [id number] 07:34:00 Test Item Value Reference Range Comments WHITE BLOOD CELL COUNT (BEAKER) (test plid=816) 9.9 K/ L 3.5-10.5 RED BLOOD CELL COUNT (BEAKER) (test xgmj=488) 3.81 M/ L 4.63-6.08 HEMOGLOBIN (BEAKER) (test knai=107) 10.6 GM/DL 13.7-17.5 HEMATOCRIT (BEAKER) (test gytb=069) 32.7 % 40.1-51.0 MEAN CORPUSCULAR VOLUME (BEAKER) (test hqoe=175) 85.8 fL 79.0-92.2 MEAN CORPUSCULAR HEMOGLOBIN (BEAKER) (test 27.8 pg 25.7-32.2 rrrn=913) MEAN CORPUSCULAR HEMOGLOBIN CONC (BEAKER) (test 32.4 GM/DL 32.3-36.5 xmat=471) RED CELL DISTRIBUTION WIDTH (BEAKER) (test 16.5 % 11.6-14.4 tqpc=577) PLATELET COUNT (BEAKER) (test rvnm=068) 233 K/CU MM 150-450 MEAN PLATELET VOLUME (BEAKER) (test ikjw=973) 10.2 fL 9.4-12.4 NUCLEATED RED BLOOD CELLS (BEAKER) (test 0 /100 WBC 0-0 azzi=255) NEUTROPHILS RELATIVE PERCENT (BEAKER) (test 62 % vcfw=547) LYMPHOCYTES RELATIVE PERCENT (BEAKER) (test 26 % pbqf=827) MONOCYTES RELATIVE PERCENT (BEAKER) (test 7 % xuhl=905) EOSINOPHILS RELATIVE PERCENT (BEAKER) (test 3 % sqmb=839) BASOPHILS RELATIVE PERCENT (BEAKER) (test 0 % olbu=867) NEUTROPHILS ABSOLUTE COUNT (BEAKER) (test 6.11 K/ L 1.78-5.38 xshc=599) LYMPHOCYTES ABSOLUTE COUNT (BEAKER) (test 2.59 K/ L 1.32-3.57 oflp=551) MONOCYTES ABSOLUTE COUNT (BEAKER) (test 0.73 K/ L 0.30-0.82 nznn=544) EOSINOPHILS ABSOLUTE COUNT (BEAKER) (test 0.34 K/ L 0.04-0.54 hctr=147) BASOPHILS ABSOLUTE COUNT (BEAKER) (test 0.04 K/ L 0.01-0.08 znqe=302) IMMATURE GRANULOCYTES-RELATIVE PERCENT (BEAKER) 1 % 0-1 (test gdtq=1885)
[2019-01-30 15:58] LABS: Absolute Lymphocytes (CBC) 1.3 K/uL (0.7-4.9); Absolute Monocytes 1.1 K/uL (0.1-1.3); Absolute Neutrophil 12.5 K/uL (1.8-8.0); Basophils % 0.4 % (0-1.3); Eosinophils % 0.4 % (0-4.4); Hematocrit 25.8 % (39.6-49.0); Lymphocytes % 8.7 % (15.3-44.8); MPV 8.8 fL (7.6-11.3); Monocytes % 7.1 % (3.3-12.3); RBC Red Blood Cell Count 3.28 M/uL (4.33-5.43)
[2019-01-30 16:22] LABS: Potassium 3.8 mmol/L (3.5-5.1); Troponin (Emerg Dept Use Only) 0.02 ng/mL (0.0-0.045)
--- NOTE | 2019-01-30 16:36 | RAD REPORT ---
EXAM DESCRIPTION: RAD - Chest Single View - 01/30/2019 4:10 pm CLINICAL HISTORY: Cough;Dyspnea Chest pain. COMPARISON: Chest Single View dated 11/11/2018; Chest Single View dated 10/04/2018; Chest Single View d ated 01/18/2018; Chest Single View dated 01/14/2018 FINDINGS: Portable technique limits examination quality. Moderate consolidation is present involving the right mid lung compatible with developing pneumonia. The heart is mildly enlarged in size. Right PICC line has tip in the SVC. IMPRESSION: Moderate-sized right mid lung pneumonia.
--- NOTE | 2019-01-30 16:59 | EDPHYS ---
Physician Documentation [facility] Name: Sam Suarez Age: 73 yrs Sex: Male : 1945 Arrival Date: 01/30/2019 Time: 15:31 Bed 8 Private MD: ED Physician Caesar Dacosta HPI: 01/30 16:00 This 73 yrs old Male presents to ER via EMS with complaints of Breathing rn Difficulty. 16:00 The patient has shortness of breath at rest. Onset: The symptoms/episode began/occurred rn yesterday. Duration: The symptoms are continuous. The patient's shortness of breath is aggravated by nothing, is alleviated by nothing. Severity of symptoms: At their worst the symptoms were moderate in the emergency department the symptoms are unchanged. The patient has not experienced similar symptoms in the past. The patient has been recently seen by a physician:. reports cough and weakness, told by retirement has pneumonia, increased sob so sent here for further care, recently diagnosed with renal mass, but dont want anything done for it, otherwise full code and ok with intubation. Reports intermittent abd swelling, improves with laxatives. No cellulitis. + cough.. Historical: - Allergies: 15:50 Dilaudid; iw 15:50 Metformin HCl; iw - Home Meds: 20:00 albuterol sulfate 90 mcg/actuation Inhl HFAA 2 puffs every 6 hours [Active]; Aldactone tl1 25 mg Oral tab 1 tab once daily [Active]; alprazolam 0.5 mg Oral TbDL 1 tab [Active]; aspirin 325 mg Oral tab 1 tab once daily [Active]; Colace 100 mg Oral cap 1 cap 2 times per day [Active]; Coreg 12.5 mg Oral tab 1 tab every 12 hours [Active]; DuoNeb 0.5 mg-3 mg(2.5 mg base)/3 mL Inhl nebu 3 mL q6h prn [Active]; Eliquis 5 mg Oral tab 1 tab 2 times per day [Active]; finasteride 5 mg Oral tab 1 tab once daily [Active]; gabapentin 400 mg Oral cap 1 cap twice a day [Active]; glipizide 5 mg Oral tab 1 tab 2 times per day [Active]; hydralazine 10 mg Oral tab 1 tab 2 times per day [Active]; hydrocodone-acetaminophen 7.5-325 mg Oral tab 1 tab q6h prn for Pain [Active]; Lasix 40 mg Oral tab once daily [Active]; lisinopril 10 mg Oral tab 1 tab once daily [Active]; metolazone 5 mg Oral tab 1 tab once daily [Active]; Nicoderm CQ 14 mg/24 hr transdermal pt24 1 patch once daily [Active]; Ranexa 500 mg Oral Tb12 2 times per day [Active]; sertraline 100 mg Oral tab 1 tab once daily [Active]; Symbicort 80-4.5 mcg/actuation inhalation HFAA 2 puffs 2 times per day [Active]; tamsulosin 0.4 mg Oral cp24 1 cap once daily [Active]; Zofran (as hydrochloride) 4 mg Oral tab 1 tabs Q4H prn [Active]; - PMHx: 15:50 Anemia; Anxiety; ATHEROSCLEROSIS; Atrial Fib; B12 deficiency; benign prostatic iw hyperplasia; CHF; Chronic pain; CKD; cognitive communication deficit; constipation; COPD; Diabetes - NIDDM; DYSPHAGIA; GERD; Hematuria; Hypertension; Hypokalemia; Hypomagnesemia; Major Depressive Disorder; - Immunization history:: Adult Immunizations up to date. - Social history:: Smoking status: Patient/guardian denies using tobacco. - Family history:: not pertinent. - Ebola Screening: : Patient negative for fever greater than or equal to 101.5 degrees Fahrenheit, and additional compatible Ebola Virus Disease symptoms Patient denies exposure to infectious person Patient denies travel to an Ebola-affected area in the 21 days before illness onset. - Hospitalizations: : Patient was recently seen at. ROS: 16:00 Constitutional: + chills Eyes: Negative for injury, pain, redness, and discharge, ENT: rn Negative for injury, pain, and discharge, Neck: Negative for injury, pain, and swelling, Cardiovascular: Negative for chest pain, palpitations, and edema, Respiratory: + sob and cough Abdomen/GI: + constipation and abd distension MS/Extremity: Negative for injury and deformity, Skin: Negative for injury, rash, and discoloration, Neuro: Negative for headache, numbness, tingling, and seizure. Exam: 16:00 Constitutional: This is a well developed, well nourished patient who is awake, alert, rn and in no acute distress. Head/Face: Normocephalic, atraumatic. Eyes: Pupils equal round and reactive to light, extra-ocular motions intact. Lids and lashes normal. Conjunctiva and sclera are non-icteric and not injected. Cornea within normal limits. Periorbital areas with no swelling, redness, or edema. ENT: dry MM, no stridor Cardiovascular: tachycardic, regular, no murmur Respiratory: + diminished bilateral breath sounds with wheezing and tachypnea, no retractions Abdomen/GI: soft, non-tender, + mild distension Skin: Warm, dry MS/ Extremity: Pulses equal, no cyanosis. Equal circumference. Neuro: Awake and alert, GCS 15, oriented to person, place, time, and situation. Cranial nerves II-XII grossly intact. Motor strength 5/5 in all extremities. Sensory grossly intact. Vital Signs: 15:30 BP 84 / 62; Pulse 102; Resp 27 S; Temp 97.6; Pulse Ox 97% on 2 lpm NC; sg 16:08 BP 88 / 66; Pulse 95; Resp 25 S; Pulse Ox 97% on 2 lpm NC; iw 16:39 Temp 98.4(O); dh3 17:02 BP 99 / 73; Pulse 96; Resp 26 S; Pulse Ox 100% on 2 lpm NC; Pain 8/10; iw 17:07 BP 99 / 73; Pulse 94 MON; Resp 22; Pulse Ox 99% on R/A; sg 19:48 BP 108 / 78; Pulse 94; Resp 25; Pulse Ox 98% on 2 lpm NC; Pain 0/10; tl1 20:13 BP 118 / 73; Pulse 96; Resp 24; Temp 97.4; Pulse Ox 98% on 2 lpm NC; Pain 0/10; tl1 MDM: 15:33 Patient medically screened. rn 16:23 ED course: More gentle fluid resuscitation due to heart failure. . rn 16:57 Differential diagnosis: pneumonia, Pneumothorax pulmonary edema. Data reviewed: vital rn signs, nurses notes, lab test result(s), radiologic studies, plain films, and as a result, I will admit patient. Counseling: I had a detailed discussion with the patient and/or guardian regarding: the historical points, exam findings, and any diagnostic results supporting the discharge/admit diagnosis, lab results, radiology results, the need for further work-up and treatment in the hospital. ED course: . 01/30 15:42 Order name: CBC with Diff; Complete Time: 16:22 rn 01/30 15:42 Order name: Basic Metabolic Panel; Complete Time: 16:47 rn 01/30 15:42 Order name: Urine Culture rn 01/30 15:42 Order name: Urine Microscopic Only rn 01/30 15:42 Order name: Blood Culture Adult (2) rn 01/30 15:42 Order name: Procalcitonin; Complete Time: 16:47 rn 01/30 15:42 Order name: XRAY Chest (1 view); Complete Time: 16:47 rn 01/30 15:42 Order name: Lactate; Complete Time: 16:22 rn 01/30 15:42 Order name: Troponin (emerg Dept Use Only); Complete Time: 16:47 rn 01/30 17:27 Order name: Urine Dipstick--Ancillary (enter results) eb 01/30 17:40 Order name: CT Abd/Pelvis- W/WO Contrast eb 01/30 18:23 Order name: Glucose, Ancillary Testing EDMD 01/30 20:25 Order name: T4 Free [facility] 01/30 20:25 Order name: Thyroid Stimulating Hormone [facility] 01/30 15:42 Order name: IV Start; Complete Time: 16:09 01/30 15:42 Order name: Urine Dipstick-Ancillary (obtain specimen); Complete Time: 17:18 rn 01/30 15:42 Order name: EKG; Complete Time: 15:43 rn 01/30 15:42 Order name: EKG - Nurse/Tech; Complete Time: 16:09 rn 01/30 18:36 Order name: CT EDMD Administered Medications: 16:33 Drug: NS 0.9% 500 ml Route: IV; Rate: bolus; Site: right upper arm; sg 17:00 Follow up: IV Status: Completed infusion; IV Intake: 500ml sg 19:49 Follow up: IV Status: Completed infusion tl1 17:05 Drug: NS 0.9% 500 ml Route: IV; Rate: bolus; Site: right upper arm; sg 19:50 Follow up: IV Status: Completed infusion tl1 Point of Care Testing: Blood Glucose: 15:42 Blood Glucose: 180 mg/dL; iw Ranges: Critical Glucose Levels:Adult <50 mg/dl or >400 mg/dl <40 mg/dl or >180 mg/dl Disposition: 01/30/19 16:59 Hospitalization ordered by Aaron Gonzalez for Inpatient Admission. Preliminary diagnosis are Pneumonia, Dyspnea, unspecified. - Bed requested for Intensive Care Unit. - Status is Inpatient Admission. tl1 - Condition is Fair. - Problem is new. - Symptoms have improved. UTI on Admission? No Signatures: Dispatcher [employer] EDSergey Haney RN CARA Iman Ellington RN RN Caesar Dacosta MD MD rn Lasagna, Tonya, RN RN 1 Shandra Lubin RN RN cg Corrections: (The following items were deleted from the chart) 19:22 16:59 Hospitalization Ordered by Aaron Gonzalez DO for Inpatient Admission. Preliminary cg diagnosis is Pneumonia; Dyspnea, unspecified. Bed requested for Intensive Care Unit. Status is Inpatient Admission. Condition is Fair. Problem is new. Symptoms have improved. UTI on Admission? No. rn 21:10 19:22 01/30/2019 16:59 Hospitalization Ordered by Aaron Gonzalez DO for Inpatient tl1 Admission. Preliminary diagnosis is Pneumonia; Dyspnea, unspecified. Bed requested for Intensive Care Unit. Status is Inpatient Admission. Condition is Fair. Problem is new. Symptoms have improved. UTI on Admission? No. cg
--- NOTE | 2019-01-30 16:59 | ER ---
Nurse's Notes [facility] Name: Sam Suarez Age: 73 yrs Sex: Male : 1945 Arrival Date: 01/30/2019 Time: 15:31 Bed 8 Private MD: Diagnosis: Pneumonia;Dyspnea, unspecified Presentation: 01/30 15:44 Presenting complaint: EMS states: halfway staff reports pt had difficulty iw breathing since last night, had CXR done yesterday that shoed a large pneumonia on left side, fever yesterday, temp was 99.1 just [employer], pt also recently diagnosed with kidney cancer with a blood clot wrapped around the tumor, also has abd swelling that the says comes and goes. Transition of care: patient was not received from another setting of care. Onset of symptoms was January 30, 2019. Risk Assessment: Do you want to hurt yourself or someone else? Patient reports no desire to harm self or others. Initial Sepsis Screen: Does the patient meet any 2 criteria? Systolic BP < 90 mmHg. HR > 90 bpm. Does the patient have a suspected source of infection? Yes: Productive cough/pneumonia If YES to both, name of provider notified: Caesar Dacosta MD Care prior to arrival: None. 15:44 Method Of Arrival: EMS: [facility] iw 15:44 Acuity: AMANDA 2 iw Historical: - Allergies: 15:50 Dilaudid; iw 15:50 Metformin HCl; iw - Home Meds: 20:00 albuterol sulfate 90 mcg/actuation Inhl HFAA 2 puffs every 6 hours [Active]; Aldactone tl1 25 mg Oral tab 1 tab once daily [Active]; alprazolam 0.5 mg Oral TbDL 1 tab [Active]; aspirin 325 mg Oral tab 1 tab once daily [Active]; Colace 100 mg Oral cap 1 cap 2 times per day [Active]; Coreg 12.5 mg Oral tab 1 tab every 12 hours [Active]; DuoNeb 0.5 mg-3 mg(2.5 mg base)/3 mL Inhl nebu 3 mL q6h prn [Active]; Eliquis 5 mg Oral tab 1 tab 2 times per day [Active]; finasteride 5 mg Oral tab 1 tab once daily [Active]; gabapentin 400 mg Oral cap 1 cap twice a day [Active]; glipizide 5 mg Oral tab 1 tab 2 times per day [Active]; hydralazine 10 mg Oral tab 1 tab 2 times per day [Active]; hydrocodone-acetaminophen 7.5-325 mg Oral tab 1 tab q6h prn for Pain [Active]; Lasix 40 mg Oral tab once daily [Active]; lisinopril 10 mg Oral tab 1 tab once daily [Active]; metolazone 5 mg Oral tab 1 tab once daily [Active]; Nicoderm CQ 14 mg/24 hr transdermal pt24 1 patch once daily [Active]; Ranexa 500 mg Oral Tb12 2 times per day [Active]; sertraline 100 mg Oral tab 1 tab once daily [Active]; Symbicort 80-4.5 mcg/actuation inhalation HFAA 2 puffs 2 times per day [Active]; tamsulosin 0.4 mg Oral cp24 1 cap once daily [Active]; Zofran (as hydrochloride) 4 mg Oral tab 1 tabs Q4H prn [Active]; - PMHx: 15:50 Anemia; Anxiety; ATHEROSCLEROSIS; Atrial Fib; B12 deficiency; benign prostatic iw hyperplasia; CHF; Chronic pain; CKD; cognitive communication deficit; constipation; COPD; Diabetes - NIDDM; DYSPHAGIA; GERD; Hematuria; Hypertension; Hypokalemia; Hypomagnesemia; Major Depressive Disorder; - Immunization history:: Adult Immunizations up to date. - Social history:: Smoking status: Patient/guardian denies using tobacco. - Family history:: not pertinent. - Ebola Screening: : Patient negative for fever greater than or equal to 101.5 degrees Fahrenheit, and additional compatible Ebola Virus Disease symptoms Patient denies exposure to infectious person Patient denies travel to an Ebola-affected area in the 21 days before illness onset. - Hospitalizations: : Patient was recently seen at. Screenin:43 Sepsis Screening: SIRS - Systemic Inflammatory Response Syndrome: 2 or more indicates sg positive screen: [heart rate greater than 90 beats per minute] [respiratory rate is greater than 20 breaths per minute] Provider has been notified and patient further screened based on infection criteria. Organ Dysfunction: One or more within 3 days of new infection: [Cardiovascular: SBP < 90mmHG OR 40 mmHG < baseline OR MAP < 65 mmHG]. 20:14 Abuse screen: Denies threats or abuse. Denies injuries from another. tl1 20:36 Nutritional screening: No deficits noted. Tuberculosis screening: No symptoms or risk tl1 factors identified. Fall Risk IV access (20 points). Gait- Impaired (20 pts.). Assessment: 15:51 General: Appears uncomfortable, ill, Behavior is calm. Pain: Complains of pain in back. iw Neuro: Level of Consciousness is awake, alert, obeys commands, Oriented to person, place. Cardiovascular: Denies chest pain, Heart tones S1 S2 present Edema is 2+ to left ankle, left foot, right ankle and right foot. Respiratory: Reports shortness of breath labored breathing Airway is patent Respiratory effort is even, labored, Respiratory pattern is regular, symmetrical, Breath sounds are diminished in left upper lobe, left lower lobe, right posterior upper lobe and right posterior middle lobe the patient has moderate shortness of breath. GI: Abdomen is distended, obese, Bowel sounds present X 4 quads. Abd is soft X 4 quads. Derm: Skin is intact, is thin, Skin is Skin is pale, Skin temperature is cool. 17:00 Reassessment: Patient appears in no apparent distress at this time. Patient and/or sg family updated on plan of care and expected duration. Pain level reassessed. Patient is alert, oriented x 3, equal unlabored respirations, skin warm/dry/pink. 17:11 Reassessment: at bedside at this time updating pt and pt family on POC and sg the the need for admission pt and pt family stated understanding. 17:19 Cardiovascular: Edema is 2+ to left upper thigh, left lower thigh, left midcalf, left iw ankle, left foot, right upper thigh, right lower thigh, right midcalf, right ankle and right foot. Respiratory: Reports cough that is productive, Airway is patent Respiratory effort is even, labored, Respiratory pattern is regular, symmetrical, Breath sounds are diminished bilaterally. GI: Abdomen is distended. 21:09 Reassessment: No changes from previously documented assessment. Patient and/or family tl1 updated on plan of care and expected duration. Pain level reassessed. Patient is alert, oriented x 3, equal unlabored respirations, skin warm/dry/pink. Patient denies pain at this time. Vital Signs: 15:30 BP 84 / 62; Pulse 102; Resp 27 S; Temp 97.6; Pulse Ox 97% on 2 lpm NC; sg 16:08 BP 88 / 66; Pulse 95; Resp 25 S; Pulse Ox 97% on 2 lpm NC; iw 16:39 Temp 98.4(O); dh3 17:02 BP 99 / 73; Pulse 96; Resp 26 S; Pulse Ox 100% on 2 lpm NC; Pain 8/10; iw 17:07 BP 99 / 73; Pulse 94 MON; Resp 22; Pulse Ox 99% on R/A; sg 19:48 BP 108 / 78; Pulse 94; Resp 25; Pulse Ox 98% on 2 lpm NC; Pain 0/10; tl1 20:13 BP 118 / 73; Pulse 96; Resp 24; Temp 97.4; Pulse Ox 98% on 2 lpm NC; Pain 0/10; tl1 ED Course: 15:28 EKG done, by technology advisor. reviewed by Caesar Dacosta MD. sm3 15:31 Patient arrived in ED. hb 15:33 Caesar Dacosta MD is Attending Physician. rn 15:48 Triage completed. iw 15:50 Iman Ellington, RN is Primary Nurse. iw 15:51 Arm band placed on. iw 15:57 Accessed PICC line. using ,sterile technique, per hospital protocol. Clean \T\ dry. iw Dressing intact. Good blood return. Flushes easily. 16:08 XRAY Chest (1 view) In Process Unspecified. EDMS 16:58 Aaron Gonzalez DO is Hospitalizing Provider. rn 18:18 CT completed. Patient tolerated procedure well. Patient moved to IA. Patient moved back il from CT. 20:33 No provider procedures requiring assistance completed. Maintain EMS IV. Dressing tl1 intact. Site clean \T\ dry. Gauge \T\ site: Picc line to right upper arm. IV is patent, is intact, with fluids infusing freely. 20:37 Patient has correct armband on for positive identification. Placed in gown. Bed in low tl1 position. Call light in reach. Side rails up X2. 21:10 Patient admitted, IV remains in place. tl1 Administered Medications: 16:33 Drug: NS 0.9% 500 ml Route: IV; Rate: bolus; Site: right upper arm; sg 17:00 Follow up: IV Status: Completed infusion; IV Intake: 500ml sg 19:49 Follow up: IV Status: Completed infusion tl1 17:05 Drug: NS 0.9% 500 ml Route: IV; Rate: bolus; Site: right upper arm; 19:50 Follow up: IV Status: Completed infusion tl1 Point of Care Testing: Blood Glucose: 15:42 Blood Glucose: 180 mg/dL; Ranges: Intake: 17:00 IV: 500ml; Total: 500ml. Outcome: 16:59 Decision to Hospitalize by Provider. rn 21:09 Admitted to ICU accompanied by nurse, via stretcher, with oxygen, on monitor, with tl1 chart, Report called to Melani MARROQUIN 21:09 Condition: stable 21:09 Instructed on the need for admit. 21:10 Patient left the ED. tl1 Signatures: Dispatcher [employer] EDMS Sergey Wooten RN RN sg Iman Ellington RN RN iw Caesar Dacosta MD MD rn Lasagna, Tonya, RN RN tl1 Zabrina Antunez RN RN hb Jordan, Nathan nj Herrera, Deanna 3 Tammy Templeton 3 Corrections: (The following items were deleted from the chart) 15:51 15:30 BP 84 / 62; Pulse 102bpm; Resp 17bpm; Spontaneous; Pulse Ox 97% 2 lpm Nasal sg Cannula; Temp 97.6F; sg
[2019-01-30] MEDS ORDERED: NA CHLORIDE 0.9% 1,000 ML ONE (17:13)
[2019-01-30 17:29] LABS: Urine Blood 2+ (NEG); Urine Glucose NEGATIVE (NEG); Urine Protein 3+ (NEG); Urine Specific Gravity 1.025 (1.005-1.030); Urine pH 7.5 (5.0-7.0)
[2019-01-30 17:40] LABS: Urine Bacteria >50 /HPF (NONE SEEN); Urine Culture Reflex Order NOT NEEDED
[2019-01-30] MEDS ORDERED: CEFEPIME 1 GM/VIAL IV SCH (17:59)
--- NOTE | 2019-01-30 18:08 | P.HP ---
Certification for Inpatient Patient admitted to: Inpatient With expected LOS: >2 Midnights Patient will require the following post-hospital care: Other (assisted) Practitioner: I am a practitioner with admitting privileges, knowledge of patient current condition, hospital course, and medical plan of care. Services: Services provided to patient in accordance with Admission requirements found in Title 42 Section 412.3 of the Code of Federal Regulations Patient History Date of Service: 01/30/19 Primary Care Provider: [place] physician; Cardiology-Dr. Cruz; Oncology-Dr. Ignacio Reason for admission: Shortness of breath History of Present Illness: 73-year-old male presented to the emergency room with shortness of breath. Patient came from the halfway. Pneumonia was suspected. assisted wanted further evaluation. Most information came from the family and ER physician. Patient has had poor intake. Patient had last BM yesterday as per halfway. Abdomen slightly distended. Patient with increasing shortness of breath. Patient denies chest pain. Patient with past medical history of recent hospitalization at [facility] for multiple issues including renal cell carcinoma and thrombus. Patient also had suspected GI bleed. He received transfusions. He was seen by GI. This included the EGD and colonoscopy. Patient was considering surgery for renal cell carcinoma. After multiple discussions with cardiology, pulmonology, and oncology, patient and family decided not to proceed with surgery due to his complicated history with increase risk factors. Patient was to start immunotherapy but this condition has declined. There was a discussion with his physicians about hospice as well. In the ER patient was hypotensive and tachypneic. Patient was given 2 boluses of fluid. White count 15. Hemoglobin 8.3. Chest x-ray shows right middle lobe pneumonia. Lactic acid within normal range. Initial troponin unremarkable. Pro calcitonin slightly elevated. Patient admitted for further treatment. When I saw the patient in the ER, blood pressures have improved with hydration. Patient appears to be stable. Patient on nasal cannula. Family at bedside. Patient with slight distention to the abdomen. Patient has had poor bowel movements. Allergies hydromorphone [From Dilaudid] Allergy (Verified 01/15/18 03:01) Nausea/Vomiting metformin Allergy (Verified 01/15/18 03:01) Rash Home medications list reviewed: Yes Home Medications: ALPRAZolam [Alprazolam] 1 tab PO BEDTIME 01/15/18 Apixaban [Eliquis] 1 tab PO BID 01/15/18 Carvedilol 1 tab PO BID 01/15/18 Hydrocodone 7.5/APAP 325 [[place] 7.5/325 mg*] 1 tab PO TID 01/15/18 Ranolazine [Ranexa] 500 mg PO DAILY 01/15/18 Spironolactone 1 tab PO DAILY 01/15/18 Finasteride [Proscar] 5 mg PO DAILY 01/16/18 Furosemide [Lasix*] 40 mg PO DAILY 01/16/18 Gabapentin [Neurontin*] 400 mg PO BID 01/16/18 Glipizide [Glucotrol] 5 mg PO BID 01/16/18 Ipratropium/Albuterol Sulfate [Iprat-Albut 0.5-3(2.5) mg/3 ml] 3 ml IH Q6H PRN 01/16/18 Lisinopril [Prinivil*] 10 mg PO DAILY 01/16/18 Magnesium Oxide [Mag-Oxide] 400 mg PO BEDTIME 01/16/18 Ranolazine [Ranexa] 500 mg PO BID 01/16/18 Sertraline HCl 100 mg PO DAILY 01/16/18 Spironolactone [Aldactone] 25 mg PO DAILY 01/16/18 Tamsulosin HCl [Flomax] 0.4 mg PO BEDTIME 01/16/18 Zinc 2 tab PO DAILY 01/16/18 Meropenem [Merrem*] 500 mg IV Q8HR 10 Days vial 01/21/18 - Past Medical/Surgical History Diabetic: Yes -: Hypertension -: Congestive heart failure -: COPD, former smoker -: Renal cell carcinoma -: Atrial fibrillation on chronic anti coagulation -: Atherosclerotic Heart disease -: Diabetes mellitus type 2 -: History of falls -: History of recurring UTI -: Cataracts -: GERD -: Benign prostatic hyperplasia -: Cholecystectomy -: Hernia repair -: Cardiac stents x2 -: Colon polyp removal -: Appendectomy Psychosocial/ Personal History: The patient is 48 years, has 2 children and 1 adopted child. 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 Patient currently at halfway. - Family History Mother -: Cancer Notes: breast cancer Sister -: Cancer Notes: ovarian cancer Brother -: Heart disease Notes: heart attack - Social History Smoking Status: Former smoker Alcohol use: No CD- Drugs: No Caffeine use: Yes Place of Residence: Residential Review of Systems General: Weakness, As per HPI Eyes: Unremarkable ENT: Unremarkable Respiratory: Cough, Shortness of Breath, As per HPI Cardiovascular: Edema, As per HPI Gastrointestinal: Distention, Constipation, As per HPI Genitourinary: Unremarkable Musculoskeletal: Pedal edema, As per HPI Integumentary: Unremarkable Neurological: Weakness, As per HPI Lymphatics: Unremarkable Physical Examination - Physical Exam General: Alert, In no apparent distress, Oriented x2, Cooperative, Other ( Patient stable on nasal cannula) HEENT: Atraumatic, Normocephalic, Mucous membr. moist/pink Neck: Supple, No Thyromegaly Respiratory: Crackles/rales (Crackles to the right base) Cardiovascular: Normal pulses, Regular rate/rhythm Gastrointestinal: Normal bowel sounds, Soft and benign, No tenderness, No masses , No rebound, No guarding, Other (Abdomen soft), Distended (Some distention noted) Musculoskeletal: No tenderness, No warmth Integumentary: Tenderness/swelling (1 to 2+ pitting edema to the lower extremities bilateral) Neurological: Normal speech, Normal strength at 5/5 x4 extr, Normal tone, Normal affect, Other (Patient is bed bound.) - Studies Laboratory Data (last 24 hrs) 01/30/19 15:43: Sodium 140, Potassium 3.8, BUN 24 H, Creatinine 1.23, Glucose 150 H 01/30/19 15:43: WBC 15.0 H, Hgb 8.3 L, Hct 25.8 L, Plt Count 218 Assessment and Plan - Plan Impression: Shortness of breath secondary to right middle lobe pneumonia with possible sepsis complicated with history of COPD and CHF Chronic CHF likely systolic Chronic atrial fibrillation on chronic anti coagulation therapy Recent diagnosis of renal cell carcinoma with thrombus Diabetes mellitus type 2 Hypertension Hyperlipidemia Anemia of chronic disease Chronic constipation with abdominal distention Plan: Shortness of breath secondary to right middle lobe pneumonia with possible sepsis complicated with history of COPD and CHF: Patient will be admitted to ICU for further evaluation. Will obtain blood and sputum cultures. Will start vancomycin and cefepime as the patient was recently hospitalized. Will need to consider hospital-acquired pneumonia. Will maintain sats above 90%. Will consult respiratory to provide COPD treatment. Patient has been given fluid boluses with improvement of blood pressure. Will provide IV fluids but monitor for CHF exacerbation. Will continue to monitor closely. Will consult pulmonology to further evaluate. Will monitor electrolytes. Recheck chest x- ray tomorrow. Case discussed with family and patient. Daughter has medical power of collections attorney. Daughter is very realistic concerning his current condition with multiple medical issues. Patient recently hospitalized to further evaluate renal cell carcinoma with thrombus. Case discussed at length with cardiology, pulmonology, and Oncology at prior hospitalization. Patient and family decided not to proceed with surgery due to his multiple risk factors. Hospice was discussed. Patient and family were not ready for that. Daughter will consider changing advanced directives and possible hospice if his condition continues to decline. Will monitor closely. Chronic CHF likely systolic: Will provide Lasix. Will further monitor closely. Chronic atrial fibrillation on chronic anti coagulation therapy: Restart Eliquis. Will need to obtain halfway medication. Recent diagnosis of renal cell carcinoma with thrombus: Patient and family declined further treatment. Patient was to get immunotherapy but his condition has declined where he would likely not get this. Patient treated with Eliquis. Will obtain CT abdomen and pelvis to further evaluate his abdominal distention Diabetes mellitus type 2: Will provide sliding scale. Will monitor closely. Hypertension: Blood pressure low at this time. Will hold blood pressure medication. Hyperlipidemia: Obtain and restart home med Anemia of chronic disease: Patient had recent evaluation by GI on previous hospitalization. This included EGD and colonoscopy. Family reports this was unremarkable. Will monitor closely. Patient has received transfusions in the past. Patient may require transfusion during this hospitalization. Will monitor closely. Chronic constipation with abdominal distention: Will check CT abdomen to further evaluate. Will provide medication for constipation. Discharge Plan: Residential Plan to discharge in: Greater than 2 days - Advance Directives Does patient have a Living Will: No Does patient have a Durable POA for Healthcare: Yes - Code Status/Comfort Care Code Status Assessed: Yes (Patient currently full code) Time Spent Managing Pts Care (In Minutes): 55
[2019-01-30] MEDS: CEFEPIME/SWI 1gm 10 ML IVP SCH (18:15)
--- NOTE | 2019-01-30 18:35 | RAD REPORT ---
EXAM DESCRIPTION: CT - Abdomen Pelvis W/Wo Contrast - 01/30/2019 6:18 pm CLINICAL HISTORY: ABD PAIN COMPARISON: Abdomen Pelvis Wo Contrast dated 11/11/2018 TECHNIQUE: Axial non-contrast CT imaging was performed. Following this, biphasic contrast enhanced i maging through the abdomen and pelvis was performed with coronal and sagittal reformatted images. All CT scans are performed using dose optimization technique as appropriate and may include automated exposure control or mA/KV adjustment according to patient size. FINDINGS: Ill-defined opacities are present in both posterior lung bases which may represent aspirat ion or atelectasis. Small bilateral pleural effusions also noted. The liver, spleen, pancreas and adrenal glands are normal. Cholecystectomy clips. Punctate stone is present in the inferior calyx of the left kidney without hydronephrosis. Solid righ t renal mass is identified measuring 5.9 x 5.4 cm, mildly increased in size since comparative study, compatible with neoplasia/RCC. Small cyst is present involving the cortex of the left kidney laterally measuring 16 mm. No bowel obstruction, free fluid or abscess. Mild inflammatory changes are seen surrounding the rectu m with mild fecal retention seen. Small left inguinal fat containing hernia. Right total hip arthroplasty is noted. Moderate lumbosacra l degenerative changes. IMPRESSION: 5.9 x 5.4 cm solid mass involving the right kidney is compatible with renal cell carcino ma. Mild pericolonic inflammatory changes surrounding the rectum seen which can indicate proctitis. Bibasilar lung opacities with small pleural effusions, possibly atelectasis or aspiration/developing pneumonia.
[2019-01-30] MEDS ORDERED: NA CHLORIDE 0.9% 1,000 ML IV SCH (19:30)
[2019-01-30] MEDS ORDERED: BENZONATATE 100 MG CAP PO PRN (19:30)
[2019-01-30] MEDS ORDERED: ONDANSETRON 4 MG/2 ML VIAL IV PRN (19:30)
[2019-01-30] MEDS ORDERED: LACTULOSE 20 GM/30 ML UCUP PO PRN (19:30)
[2019-01-30] MEDS ORDERED: ACETAMINOPHEN 500 MG TAB PO PRN (19:30)
[2019-01-30 20:24] LABS: Thyroid Stimulating Hormone 0.985 uIU/mL (0.360-3.740)
[2019-01-30] MEDS: FAMOTIDINE 20 MG TAB PO SCH (21:00)
[2019-01-30] MEDS ORDERED: VANCOMYCIN/NS 1 gm 1 GM/250 ML BAG IV SCH (21:00)
[2019-01-30] MEDS: INSULIN -REGULAR HUMAN 50 UNIT/0.5 ML ML SQ SCH (21:00)
[2019-01-30 22:58] VITALS: BMI 33.9
[2019-01-30] MEDS: APIXABAN 5 MG TABLET PO SCH (23:00)
[2019-01-30] MEDS: GUAIFENESIN 600 MG SA TAB PO SCH (23:00)
[2019-01-31 05:58] LABS: Potassium 3.6 mmol/L (3.5-5.1)
[2019-01-31 06:09] LABS: Absolute Lymphocytes (CBC) 1.2 K/uL (0.7-4.9); Absolute Monocytes 0.9 K/uL (0.1-1.3); Absolute Neutrophil 9.4 K/uL (1.8-8.0); Basophils % 0.5 % (0-1.3); Eosinophils % 1.8 % (0-4.4); Hematocrit 24.1 % (39.6-49.0); Lymphocytes % 10.5 % (15.3-44.8); MPV 9.2 fL (7.6-11.3); Monocytes % 7.3 % (3.3-12.3); RBC Red Blood Cell Count 3.06 M/uL (4.33-5.43)
--- NOTE | 2019-01-31 06:48 | EKG ---
Test Date: 2019-01-30 Test Time: 15:28:44 Ceramic Sprayer: SAM MEASUREMENT RESULTS: Intervals: Rate: 96 VT: 160 QRSD: 100 QT: 414 QTc: 523 Thermal: P: VT: 160 QRS: -37 T: 77 INTERPRETIVE STATEMENTS: Normal sinus rhythm with sinus arrhythmia Left axis deviation Pulmonary disease pattern Nonspecific ST abnormality Prolonged QT Abnormal ECG Compared to ECG 11/11/2018 11:55:24 Left-axis deviation now present ST (T wave) deviation now present Prolonged QT interval now present Atrial fibrillation no longer present T-wave abnormality no longer present Electronically Signed On 01-31-19 06:48:17 CDT by Clayton Miller
[2019-01-31] MEDS ORDERED: HYDROCODONE/APAP 7.5/325 MG TAB PO PRN (07:05)
[2019-01-31] MEDS ORDERED: ALPRAZOLAM 0.5 MG TABLET PO PRN (07:05)
[2019-01-31] MEDS: INSULIN -REGULAR HUMAN 50 UNIT/0.5 ML ML SQ SCH ×4 (07:30→21:00)
[2019-01-31] MEDS: GUAIFENESIN 600 MG SA TAB PO SCH ×2 (08:25→21:04)
[2019-01-31] MEDS: FUROSEMIDE 20 MG/ 2ML VIAL IV SCH ×2 (08:26→16:43)
[2019-01-31] MEDS: APIXABAN 5 MG TABLET PO SCH ×2 (08:27→21:04)
[2019-01-31] MEDS: SERTRALINE HCL 50 MG TAB PO SCH (08:27)
[2019-01-31] MEDS: TAMSULOSIN 0.4 MG SR CAP PO SCH (08:27)
[2019-01-31] MEDS: SOTALOL HCL 80 MG TAB PO SCH ×2 (08:28→21:04)
[2019-01-31] MEDS: FAMOTIDINE 20 MG TAB PO SCH ×2 (08:39→21:04)
[2019-01-31] MEDS ORDERED: POTASSIUM 25 MEQ EFFERV TAB PO ONE (09:00)
[2019-01-31] MEDS ORDERED: SOD FERRIC GLUC COMPLX/SUCROSE 125 MG in NA CHLORIDE 0.9% 100 ML IV SCH (09:00)
--- NOTE | 2019-01-31 09:01 | RAD REPORT ---
EXAM DESCRIPTION: [place] Single View01/31/2019 8:18 am CLINICAL HISTORY: Chest pain COMPARISON: January 30, 2019 FINDINGS: Mild to moderate improvement in the right lung pneumonia No other change noted IMPRESSION: Mild to moderate improvement in the right pneumonia
[2019-01-31] MEDS: SOD FERRIC GLUC COMPLX/SUCROSE 125 MG in NA CHLORIDE 0.9% 100 ML IV SCH (10:37)
--- NOTE | 2019-01-31 10:37 | P.CNS ---
Date of Consult: 01/31/19 Primary Care Provider: [place] physician; Cardiology-Dr. Cruz; Oncology-Dr. Ignacio Chief Complaint: Pneumonia History of Present Illness: Patient is 73 years of age a custodial resident admitted with a worsening shortness of breath chest discomfort cough congestion productive sputum for the past week was found to have a right lung pneumonia patient does not ambulate he has lower extremity edema with smoking a long time ago history of renal cell carcinoma still hypotensive otherwise is alert responsive and cooperative Allergies hydromorphone [From Dilaudid] Allergy (Verified 01/31/19 02:59) Nausea/Vomiting metformin Allergy (Verified 01/31/19 02:59) Rash Home Medications: ALPRAZolam [Alprazolam] 1 tab PO BEDTIME 01/31/19 Apixaban [Eliquis] 1 tab PO BID 01/31/19 Atorvastatin Calcium [Lipitor] 10 mg PO BEDTIME 01/31/19 Atorvastatin Calcium [Lipitor] 10 mg PO BEDTIME 01/31/19 Azithromycin 250 mg PO DAILY 01/31/19 Azithromycin 500 mg PO DAILY 01/31/19 Budesonide/Formoterol Fumarate [Symbicort 80-4.5 Mcg Inhaler] 2 puff IH QID 01/16 Carvedilol 1 tab PO BID 01/31/19 Gabapentin 1 tab PO TID 01/31/19 Glimepiride 2 mg PO DAILY 01/31/19 Hydrocodone Bit/Acetaminophen [Hydrocodon-Acetaminoph 7.5-325] 1 each PO Q6H PRN 01/31/19 Ipratropium/Albuterol Sulfate [Iprat-Albut 0.5-3(2.5) mg/3 ml] 3 ml IH Q4H PRN 01/31/19 Lactulose 20 gm PO Q12H PRN 01/31/19 Lisinopril [Prinivil*] 1 tab PO Q12H 01/31/19 Niacin [Niacin ER] 1,000 mg PO BEDTIME 01/31/19 Omeprazole 20 mg PO DAILY 01/31/19 Promethazine HCl 25 mg PO Q8H PRN 01/31/19 Ranolazine [Ranolazine ER] 1 tab PO BID 01/31/19 Sertraline HCl 50 mg PO DAILY 01/31/19 Sotalol HCl [Betapace] 80 mg PO BID 01/31/19 Tamsulosin HCl 0.4 mg PO DAILY 01/31/19 - Past Medical/Surgical History Diabetic: Yes -: Hypertension -: Congestive heart failure -: COPD, former smoker -: Renal cell carcinoma -: Atrial fibrillation on chronic anti coagulation -: Atherosclerotic Heart disease -: Diabetes mellitus type 2 -: History of falls -: History of recurring UTI -: Cataracts -: GERD -: Benign prostatic hyperplasia -: Cholecystectomy -: Hernia repair -: Cardiac stents x2 -: Colon polyp removal -: Appendectomy Psychosocial/ Personal History: The patient is 48 years, has 2 children and 1 adopted child. 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 Patient currently at custodial. - Family History Mother Medical History: Cancer Notes: breast cancer Sister Medical History: Cancer Notes: ovarian cancer Brother Medical History: Heart disease Notes: heart attack - Social History Smoking Status: Current every day smoker Alcohol use: No CD- Drugs: No Caffeine use: Yes [facility] Review of Systems General: Weakness Respiratory: Cough, Shortness of Breath Cardiovascular: Edema Physical Examination Temp Pulse Resp BP Pulse Ox 97.3 F 83 17 99/59 L 98 01/31/19 04:00 01/31/19 10:00 01/31/19 10:00 01/31/19 10:00 01/31/19 10:00 General: Alert, Oriented x3 HEENT: Atraumatic Neck: Supple Respiratory: Crackles/rales (Crackles on the right side) Cardiovascular: Normal S1 S2, Edema (2+ edema left greater than right) Gastrointestinal: Normal bowel sounds, Soft and benign Musculoskeletal: No clubbing, No swelling, Other (Wound in the right upper back) Integumentary: No rashes, No breakdown Laboratory Data (last 24 hrs) 01/30/19 15:43: Sodium 140, Potassium 3.8, BUN 24 H, Creatinine 1.23, Glucose 150 H 01/30/19 15:43: WBC 15.0 H, Hgb 8.3 L, Hct 25.8 L, Plt Count 218 - Problems (1) Pneumonia Current Visit: Yes Status: Acute Plan: Patient is 73 years of age admitted with right mid-zone pneumonia mildly anemic white count is declining is clinically stable vital signs satisfactory oxygenation satisfactory patient is on cefepime and vancomycin patient is anti coagulated is normal sinus rhythm chronic anticoagulation due to AFib continue with present antibiotics stable to be transferred to the floor patient has large renal mass he opted for no treatment and a right mid to upper zone infiltrate
--- NOTE | 2019-01-31 10:53 | P.PN ---
Subjective Date of Service: 01/31/19 Primary Care Provider: [place] physician; Cardiology-Dr. Cruz; Oncology-Dr. Ignacio Chief Complaint: Pneumonia Subjective: Other (Patient appears improved since yesterday.) Physical Examination - Vital Signs Temperature: 97.3 F Blood Pressure: 99/59 Pulse: 83 Respirations: 17 Pulse Ox (%): 98 - Physical Exam General: Alert, In no apparent distress, Oriented x3, Cooperative HEENT: Atraumatic Neck: Supple Respiratory: Crackles/rales (To the right base) Cardiovascular: Regular rate/rhythm Gastrointestinal: Normal bowel sounds, Soft and benign, Non-distended, Other ( Less distention noted today.) Musculoskeletal: No tenderness, No warmth Integumentary: No warmth, No cyanosis, Tenderness/swelling (1+ pitting edema to the lower extremity) Neurological: Normal speech, Normal strength at 5/5 x4 extr, Normal tone, Normal affect - Studies Laboratory Data (last 24 hrs) 01/30/19 15:43: Sodium 140, Potassium 3.8, BUN 24 H, Creatinine 1.23, Glucose 150 H 01/30/19 15:43: WBC 15.0 H, Hgb 8.3 L, Hct 25.8 L, Plt Count 218 Medications List Reviewed: Yes Assessment & Plan Discharge Plan: Skilled Nursing Plan to discharge in: Greater than 2 days Physician Review Additional Text: Impression: Shortness of breath secondary to right middle lobe pneumonia with possible sepsis complicated with history of COPD and CHF UTI Chronic CHF likely systolic Chronic atrial fibrillation on chronic anti coagulation therapy Recent diagnosis of right-sided renal cell carcinoma with thrombus Diabetes mellitus type 2 Hypertension Hyperlipidemia Anemia of chronic disease Chronic constipation with abdominal distention Plan: Shortness of breath secondary to right middle lobe pneumonia with possible sepsis complicated with history of COPD and CHF: Patient has improved. Blood, sputum and urine cultures obtained. Continue vancomycin and cefepime the as patient was recently hospitalized. Will need to consider hospital-acquired pneumonia. Will discuss with pulmonology. Will continue to wean off oxygen. Recheck chest x-ray. Will transfer patient to the floor. Will continue to update family. Continue to address advanced directives and plan of care. UTI: Continue antibiotics. Await culture results. Chronic CHF likely systolic: Will provide Lasix. Will discontinue IV fluids and monitor closely. Chronic atrial fibrillation on chronic anti coagulation therapy: Continue Eliquis. Obtain and restart group home medication Recent diagnosis of right-sided renal cell carcinoma with thrombus: Patient and family declined further treatment. Patient was to get immunotherapy but his condition has declined where he would likely not get this. Patient treated with Eliquis. CT scan reviewed. Diabetes mellitus type 2: Continue with insulin sliding scale. Will monitor closely. Hypertension: Blood pressure low at this time. Will hold blood pressure medication. Hyperlipidemia: Will obtain a restart home medication. Anemia of chronic disease with iron deficiency: Will start IV iron. Will monitor hemoglobin. Patient may require transfusion. Patient had recent evaluation by GI on previous hospitalization. This included EGD and colonoscopy. Family reports this was unremarkable. Will monitor closely. Chronic constipation with abdominal distention: Will provide medication for constipation. CT scan reviewed. Time Spent Managing Pts Care (In Minutes): 55
[2019-01-31] MEDS: CEFEPIME/SWI 1gm 10 ML IVP SCH ×2 (11:09→21:04)
[2019-01-31] MEDS: VANCOMYCIN 2 GM in NA CHLORIDE 0.9% 500 ML IVPB SCH (12:24)
[2019-01-31 12:35] LABS: Hematocrit 23.7 % (39.6-49.0)
[2019-01-31] MEDS ORDERED: NIACIN 1000 MG PO SCH (21:00)
[2019-01-31] MEDS: ATORVASTATIN 10 MG TAB PO SCH (21:04)
[2019-02-01] MEDS: VANCOMYCIN 2 GM in NA CHLORIDE 0.9% 500 ML IVPB SCH (05:08)
[2019-02-01 05:15] LABS: Absolute Lymphocytes (CBC) 1.2 K/uL (0.7-4.9); Absolute Monocytes 0.7 K/uL (0.1-1.3); Absolute Neutrophil 6.5 K/uL (1.8-8.0); Basophils % 0.6 % (0-1.3); Eosinophils % 2.9 % (0-4.4); Hematocrit 22.9 % (39.6-49.0); Lymphocytes % 13.3 % (15.3-44.8); MPV 8.6 fL (7.6-11.3); Monocytes % 7.9 % (3.3-12.3); RBC Red Blood Cell Count 2.92 M/uL (4.33-5.43)
[2019-02-01 05:29] LABS: Magnesium 1.9 mg/dL (1.8-2.4); Potassium 3.5 mmol/L (3.5-5.1)
--- NOTE | 2019-02-01 07:11 | RAD REPORT ---
EXAM DESCRIPTION: RAD - Chest Single View - 02/01/2019 5:52 am CLINICAL HISTORY: Pneumonia COMPARISON: January 31, January 30 TECHNIQUE: AP portable chest image was obtained 0549 hours . FINDINGS: Lung volumes are normal. There is an reaccumulation of infiltrate and/ or edema in the rig ht midlung field. Focal density has worsened since prior day study. Interstitial markings overall are increased. Patient can be monitored for developing volume overload. Vasculature has increased and he art size is similar to slightly increased. No pneumothorax or large pleural effusion. IMPRESSION: Worsening opacification in the right midlung field from residual/recurrent pneumonia or edema. Heart, vasculature and lung markings overall have increased concerning for early volume overload.
[2019-02-01] MEDS: INSULIN -REGULAR HUMAN 50 UNIT/0.5 ML ML SQ SCH ×4 (07:30→20:47)
[2019-02-01] MEDS ORDERED: POTASSIUM 25 MEQ EFFERV TAB PO ONE (08:00)
[2019-02-01] MEDS ORDERED: D50W 25 GM/50 ML SYRINGE IV PRN (08:03)
[2019-02-01] MEDS ORDERED: GLUCAGON 1 MG/VIAL IM PRN (08:03)
--- NOTE | 2019-02-01 08:06 | P.PN ---
Subjective Date of Service: 02/01/19 Primary Care Provider: [place] physician; Cardiology-Dr. Cruz; Oncology-Dr. Ignacio Chief Complaint: Pneumonia Subjective: Doing well Physical Examination - Vital Signs Temperature: 97.4 F Blood Pressure: 119/73 Pulse: 90 Respirations: 20 Pulse Ox (%): 98 - Physical Exam General: Alert, In no apparent distress, Oriented x3, Cooperative HEENT: Atraumatic Neck: Supple Respiratory: Crackles/rales (to the bases. On Nasal canula) Cardiovascular: Irregular heart rate/rhythm (A fib rate controlled. ) Gastrointestinal: Normal bowel sounds, Soft and benign, Non-distended, No masses , No rebound, No guarding Musculoskeletal: No tenderness, No warmth Integumentary: Tenderness/swelling (2 plus edema to the lower ext. ) Neurological: Normal speech, Normal strength at 5/5 x4 extr, Normal tone, Normal affect - Studies Microbiology Data (last 24 hrs): 01/30/19 17:15 Catheterized Urine [place] Count - Final >100,000 CFU/ML. Medications List Reviewed: Yes Assessment & Plan Discharge Plan: [facility] Plan to discharge in: 24 Hours (to 48 hours) Physician Review Additional Text: Impression: Shortness of breath secondary to right middle lobe pneumonia with sepsis, noted positive blood culture, complicated with history of COPD and CHF UTI Chronic CHF likely systolic Chronic atrial fibrillation on chronic anti coagulation therapy Recent diagnosis of right-sided renal cell carcinoma with thrombus Diabetes mellitus type 2 Hypertension Hyperlipidemia Anemia of chronic disease Chronic constipation with abdominal distention Plan: Shortness of breath secondary to right middle lobe pneumonia with sepsis, noted positive blood culture, complicated with history of COPD and CHF: Patient has improved. Continue to wean off oxygen. Patient may require oxygen at discharge for COPD and CHF. Urine culture positive await cultures. Patient with positive blood cultrues likely bacteremia. Await culture results. Will provide 1 unit of blood due to low hemoglobin. Will increase Lasix to 40 mg IV twice daily. Continue to monitor closely. Likely discharge in the next 24-48 hr. Patient will return to retirement. Will consult social worker school to help with discharge planning. UTI: Continue antibiotics. Await culture results. Chronic CHF likely systolic: Will increase Lasix to 40 mg IV twice daily. Recheck chest x-ray tomorrow. Chronic atrial fibrillation on chronic anti coagulation therapy: Continue Eliquis. Atrial fibrillation, rate controlled. Recent diagnosis of right-sided renal cell carcinoma with thrombus: Patient and family declined further treatment. Patient was to get immunotherapy but his condition has declined where he would likely not get this. This was again discuss yesterday about plan of care. Family will need to consider hospice if his condition declines over time. Diabetes mellitus type 2: Continue with insulin sliding scale. Will monitor closely. Hypertension: Blood pressure improved. Will continue to hold blood pressure medication. Hyperlipidemia: Medications adjusted. Anemia of chronic disease with iron deficiency: Will continue with IV iron. Will provide 1 unit of blood. Continue to monitor closely. Patient had recent evaluation by GI on previous hospitalization. This included EGD and colonoscopy. Family reports this was unremarkable. Will monitor closely. Chronic constipation with abdominal distention: Will provide medication for constipation. CT scan reviewed. Time Spent Managing Pts Care (In Minutes): 55
[2019-02-01] MEDS: GUAIFENESIN 600 MG SA TAB PO SCH ×2 (08:38→20:46)
[2019-02-01] MEDS: SOTALOL HCL 80 MG TAB PO SCH ×2 (08:38→20:46)
[2019-02-01] MEDS: FAMOTIDINE 20 MG TAB PO SCH ×2 (08:39→20:46)
[2019-02-01] MEDS: CEFEPIME/SWI 1gm 10 ML IVP SCH (08:39)
[2019-02-01] MEDS: SERTRALINE HCL 50 MG TAB PO SCH (08:39)
[2019-02-01] MEDS: TAMSULOSIN 0.4 MG SR CAP PO SCH (08:39)
[2019-02-01] MEDS: SOD FERRIC GLUC COMPLX/SUCROSE 125 MG in NA CHLORIDE 0.9% 100 ML IV SCH (08:41)
[2019-02-01] MEDS: APIXABAN 5 MG TABLET PO SCH ×2 (08:42→20:46)
[2019-02-01] MEDS: FUROSEMIDE 40 MG/4 ML VIAL IV SCH ×2 (08:43→17:00)
--- NOTE | 2019-02-01 10:12 | P.PN ---
Subjective Date of Service: 02/10/19 Primary Care Provider: [place] physician; Cardiology-Dr. Cruz; Oncology-Dr. Ignacio Chief Complaint: Pneumonia Subjective: Improving (Patient is improving he is feeling better denies any cough chest pain) Review of Systems General: Weakness Respiratory: Shortness of Breath Physical Examination - Vital Signs Temperature: 97.4 F Blood Pressure: 119/73 Pulse: 90 Respirations: 20 Pulse Ox (%): 98 - Physical Exam General: Alert, Oriented x3 Respiratory: Clear to auscultation bilaterally, Crackles/rales (Minimal crackles on the right side) Cardiovascular: No edema, Regular rate/rhythm, Normal S1 S2 - Studies Microbiology Data (last 24 hrs): 01/30/19 17:15 Catheterized Urine [place] Count - Final >100,000 CFU/ML. 01/30/19 17:15 Catheterized Urine - Final Proteus Mirabilis Esbl Medications List Reviewed: Yes Assessment & Plan - Problems (Diagnosis) (1) Pneumonia Status: Acute Plan: Patient admitted with right lung pneumonia white count is now normal eating and drinking patient also has resistant Proteus in the urine blood cultures are positive for Gram positive [place] I continue with present dose of antibiotics await sensitivities for Staph Qualifiers: Pneumonia type: due to unspecified organism Laterality: right Lung location: middle lobe of lung Qualified Code(s): J18.1 - Lobar pneumonia, unspecified organism Physician Review Additional Text: I
[2019-02-01] MEDS ORDERED: FUROSEMIDE 20 MG/ 2ML VIAL IV SCH (11:00)
[2019-02-01] MEDS: Meropenem 1,000 MG in NA CHLORIDE 0.9% 100 ML IV SCH ×2 (11:44→21:00)
[2019-02-01] MEDS: IPRATROPIUM BROM 0.5MG/2.5ML NEB PRN ×2 (13:35→20:00)
[2019-02-01] MEDS: LEVALBUTEROL 0.63 MG/3 ML NEB NEB PRN ×2 (13:35→20:00)
[2019-02-01] MEDS ORDERED: NA CHLORIDE 0.9% 250 ML ONE (14:01)
[2019-02-01] MEDS: ATORVASTATIN 10 MG TAB PO SCH (20:46)
[2019-02-01] MEDS: GABAPENTIN 300 MG CAP PO PRN (20:46)
[2019-02-01] MEDS ORDERED: Meropenem 1000 MG/VIAL IV SCH (21:00)
[2019-02-01 21:48] LABS: Hematocrit 25.8 % (39.6-49.0)
[2019-02-02] MEDS: VANCOMYCIN 2 GM in NA CHLORIDE 0.9% 500 ML IVPB SCH ×2 (01:00→17:03)
[2019-02-02] MEDS: LEVALBUTEROL 0.63 MG/3 ML NEB NEB PRN ×2 (01:00→08:20)
[2019-02-02] MEDS: IPRATROPIUM BROM 0.5MG/2.5ML NEB PRN ×2 (01:00→08:20)
[2019-02-02 05:52] LABS: Magnesium 1.8 mg/dL (1.8-2.4); Potassium 3.4 mmol/L (3.5-5.1)
[2019-02-02 06:00] LABS: Absolute Lymphocytes (CBC) 1.2 K/uL (0.7-4.9); Absolute Monocytes 0.5 K/uL (0.1-1.3); Absolute Neutrophil 5.4 K/uL (1.8-8.0); Basophils % 0.7 % (0-1.3); Eosinophils % 2.4 % (0-4.4); Hematocrit 25.1 % (39.6-49.0); MPV 8.8 fL (7.6-11.3); Monocytes % 6.7 % (3.3-12.3); RBC Red Blood Cell Count 3.19 M/uL (4.33-5.43)
[2019-02-02] MEDS: INSULIN -REGULAR HUMAN 50 UNIT/0.5 ML ML SQ SCH ×4 (07:30→20:59)
[2019-02-02] MEDS: KCL 20 MEQ/100 mL IVPB 20 MEQ/100 ML BAG IV SCH ×2 (08:17→12:15)
[2019-02-02] MEDS: Meropenem 1,000 MG in NA CHLORIDE 0.9% 100 ML IV SCH ×2 (08:18→20:58)
[2019-02-02] MEDS: SOTALOL HCL 80 MG TAB PO SCH ×2 (08:19→20:58)
[2019-02-02] MEDS: GUAIFENESIN 600 MG SA TAB PO SCH ×2 (08:19→20:57)
[2019-02-02] MEDS: SERTRALINE HCL 50 MG TAB PO SCH (08:19)
[2019-02-02] MEDS: FUROSEMIDE 40 MG/4 ML VIAL IV SCH (08:19)
[2019-02-02] MEDS: FAMOTIDINE 20 MG TAB PO SCH ×2 (08:20→20:57)
[2019-02-02] MEDS: APIXABAN 5 MG TABLET PO SCH ×2 (08:20→20:58)
[2019-02-02] MEDS: GABAPENTIN 300 MG CAP PO PRN (08:20)
[2019-02-02] MEDS: TAMSULOSIN 0.4 MG SR CAP PO SCH (08:20)
[2019-02-02] MEDS: SOD FERRIC GLUC COMPLX/SUCROSE 125 MG in NA CHLORIDE 0.9% 100 ML IV SCH (08:25)
--- NOTE | 2019-02-02 08:30 | RAD REPORT ---
EXAM DESCRIPTION: RAD - Chest Single View - 02/02/2019 6:32 am CLINICAL HISTORY: follow up CHF Chest pain. COMPARISON: Chest Single View dated 02/01/2019; Chest Single View dated 01/31/2019; Chest Single View da sheila 01/30/2019; Chest Single View dated 11/11/2018 FINDINGS: Portable technique limits examination quality. Mild to moderate improvement is seen in right lower and mid lung pneumonia pattern since comparative study. The heart is normal in size. Right-sided PICC line has tip in the SVC. IMPRESSION: Mild to moderate improvement in right lung pneumonia since comparative study.
[2019-02-02] MEDS ORDERED: MAGNESIUM SULFATE 1 gm IVPB 1 GM/100 ML BAG IV ONE (09:00)
--- NOTE | 2019-02-02 14:48 | P.PN ---
Subjective Date of Service: 02/02/19 Primary Care Provider: [place] physician; Cardiology-Dr. Cruz; Oncology-Dr. Ignacio Chief Complaint: Pneumonia Subjective: Improving Physical Examination - Vital Signs Temperature: 97.8 F Blood Pressure: 125/70 Pulse: 83 Respirations: 20 Pulse Ox (%): 97 - Physical Exam General: Alert, In no apparent distress HEENT: Atraumatic Neck: Supple Respiratory: Clear to auscultation bilaterally, Normal air movement Cardiovascular: Normal pulses, Regular rate/rhythm Gastrointestinal: Normal bowel sounds, Soft and benign, Non-distended Integumentary: No erythema, No warmth, No cyanosis, Tenderness/swelling ( Pitting edema to the lower extremity slightly improved) Neurological: Normal speech, Normal strength at 5/5 x4 extr, Normal tone, Normal affect - Studies Microbiology Data (last 24 hrs): 01/30/19 15:43 Blood - Blood Aerobic Blood Culture - Final Staph Epidermidis 01/30/19 15:43 Blood - Blood Gram Stain - Final 01/30/19 16:00 Blood - Blood Aerobic Blood Culture - Final Staph Epidermidis 01/30/19 16:00 Blood - Blood Gram Stain - Final 01/30/19 16:00 Blood - Blood Anaerobic Blood Culture - Final Staph Epidermidis 01/30/19 16:00 Blood - Blood Gram Stain - Final Medications List Reviewed: Yes Assessment & Plan Discharge Plan: [facility] (longterm facility) Plan to discharge in: 24 Hours Physician Review Additional Text: Impression: Shortness of breath secondary to right middle lobe pneumonia with sepsis, noted positive blood culture, complicated with history of COPD and CHF UTI, urine culture positive for Proteus-ESBL Chronic CHF likely systolic Chronic atrial fibrillation on chronic anti coagulation therapy Recent diagnosis of right-sided renal cell carcinoma with thrombus Diabetes mellitus type 2 Hypertension Hyperlipidemia Anemia of chronic disease Chronic constipation with abdominal distention Plan: Shortness of breath secondary to right middle lobe pneumonia with sepsis, noted positive blood culture for Staph epidermidis, complicated with history of COPD and CHF: Chest x-ray shows improvement of middle lobe pneumonia. Patient has improved. Cultures were positive for Staph epidermidis in the blood and urine culture positive for Proteus-ESBL. Patient will continue with IV antibiotic therapy-vancomycin and Merrem for at least 2 weeks. [facility] Continue to wean off oxygen. Will change Lasix to oral. Patient has received 1 unit of blood during the course of the stay. Hemoglobin stable this time. [facility]ticipate [facility] to jail likely tomorrow. I was able to discuss in detail with patient and family present concerning his multiple medical issues. This included advanced directives and hospice. Patient is not ready for hospice at this time. Family realistic concerning his current condition. All are in agreement that if his condition continues declined he will require hospice. This can be further addressed at the jail. I will turn the service over to Dr. Kraus tomorrow. I will go over the plan of care with her. UTI, urine culture positive for Proteus-ESBL: Antibiotics adjusted. Now on meropenem. Chronic CHF likely systolic: Will change to oral Lasix. Continue 1500 cc per day fluid restriction. Monitor weight closely. Chronic atrial fibrillation on chronic anti coagulation therapy: Continue Eliquis. Atrial fibrillation, rate controlled. Recent diagnosis of right-sided renal cell carcinoma with thrombus: Patient and family declined further treatment. Patient was to get immunotherapy but his condition has declined where he would likely not get this. This was again addressed. Continue as above. If his condition continues to decline patient and family are open to the idea of hospice. This can be further addressed at the jail. Diabetes mellitus type 2: Continue with insulin sliding scale. Will monitor closely. Hypertension: Blood pressure improved. Will continue to hold blood pressure medication. Hyperlipidemia: Medications adjusted. Anemia of chronic disease with iron deficiency: Will continue with IV iron. Patient received 1 unit of blood. Hemoglobin stable this time. Continue to monitor closely. Patient had recent evaluation by GI on previous hospitalization. This included EGD and colonoscopy. Family reports this was unremarkable. Will monitor closely. Chronic constipation with abdominal distention: Will provide medication for constipation. CT scan reviewed. Time Spent Managing Pts Care (In Minutes): 55
[2019-02-02] MEDS: FUROSEMIDE 40 MG TABLET PO SCH (17:03)
[2019-02-02] MEDS ORDERED: POTASSIUM CL SA 10 MEQ TAB PO ONE (19:49)
[2019-02-02] MEDS: ATORVASTATIN 10 MG TAB PO SCH (20:58)
[2019-02-03 05:17] LABS: Absolute Lymphocytes (CBC) 2.1 K/uL (0.7-4.9); Absolute Monocytes 0.8 K/uL (0.1-1.3); Absolute Neutrophil 7.1 K/uL (1.8-8.0); Basophils % 0.6 % (0-1.3); Eosinophils % 2.8 % (0-4.4); Hematocrit 26.2 % (39.6-49.0); MPV 8.3 fL (7.6-11.3); Monocytes % 8.2 % (3.3-12.3); RBC Red Blood Cell Count 3.35 M/uL (4.33-5.43)
[2019-02-03 05:47] LABS: Magnesium 1.8 mg/dL (1.8-2.4); Potassium 3.7 mmol/L (3.5-5.1)
[2019-02-03] MEDS: INSULIN -REGULAR HUMAN 50 UNIT/0.5 ML ML SQ SCH ×4 (07:30→20:41)
[2019-02-03] MEDS: IPRATROPIUM BROM 0.5MG/2.5ML NEB PRN ×3 (08:40→20:02)
[2019-02-03] MEDS: LEVALBUTEROL 0.63 MG/3 ML NEB NEB PRN ×3 (08:40→20:02)
[2019-02-03] MEDS ORDERED: POTASSIUM CL SA 10 MEQ TAB PO ONE (09:00)
[2019-02-03] MEDS ORDERED: MAGNESIUM SULFATE 1 gm IVPB 1 GM/100 ML BAG IV ONE (09:00)
[2019-02-03] MEDS: FUROSEMIDE 40 MG TABLET PO SCH ×2 (09:03→17:04)
[2019-02-03] MEDS: SOTALOL HCL 80 MG TAB PO SCH ×2 (09:03→20:40)
[2019-02-03] MEDS: TAMSULOSIN 0.4 MG SR CAP PO SCH (09:03)
[2019-02-03] MEDS: APIXABAN 5 MG TABLET PO SCH ×2 (09:04→20:40)
[2019-02-03] MEDS: SERTRALINE HCL 50 MG TAB PO SCH (09:04)
[2019-02-03] MEDS: Meropenem 1,000 MG in NA CHLORIDE 0.9% 100 ML IV SCH ×2 (09:05→20:40)
[2019-02-03] MEDS: FAMOTIDINE 20 MG TAB PO SCH ×2 (09:05→20:40)
[2019-02-03] MEDS: GUAIFENESIN 600 MG SA TAB PO SCH ×2 (09:05→20:40)
[2019-02-03] MEDS: SOD FERRIC GLUC COMPLX/SUCROSE 125 MG in NA CHLORIDE 0.9% 100 ML IV SCH (09:06)
[2019-02-03] MEDS: VANCOMYCIN 2 GM in NA CHLORIDE 0.9% 500 ML IVPB SCH (12:00)
--- NOTE | 2019-02-03 16:21 | P.DS ---
Admission Date: 01/30/19 Discharge Date: 02/03/19 Primary Care Provider: [facility] physician; Cardiology-Dr. Cruz; Oncology-Dr. Ignacio Disposition: ROUTINE DISCHARGE Discharge Condition: GOOD Reason for Admission: Pneumonia Consultations: Pulmonology - Problems (1) Sepsis Onset Date: 01/15/18 Current Visit: No Status: Acute Qualifiers: Sepsis type: sepsis due to unspecified organism Qualified Code(s): A41.9 - Sepsis, unspecified organism (2) Pneumonia Current Visit: Yes Status: Acute Qualifiers: Pneumonia type: due to unspecified organism Laterality: right Lung location: middle lobe of lung Qualified Code(s): J18.1 - Lobar pneumonia, unspecified organism (3) Bacteremia Current Visit: No Status: Acute (4) UTI (urinary tract infection) Onset Date: 04/06/16 Current Visit: No Status: Acute Qualifiers: (5) Atrial fibrillation Onset Date: 06/04/17 Current Visit: No Status: Chronic Qualifiers: Atrial fibrillation type: chronic Qualified Code(s): I48.2 - Chronic atrial fibrillation (6) Benign prostatic hyperplasia Onset Date: 06/04/17 Current Visit: No Status: Chronic Qualifiers: Lower urinary tract symptom presence: symptoms present Lower urinary tract symptom detail: unspecified Qualified Code(s): N40.1 - Benign prostatic hyperplasia with lower urinary tract symptoms (7) Chronic anticoagulation Onset Date: 05/21/17 Current Visit: No Status: Chronic (8) Chronic obstructive pulmonary disease Onset Date: 06/04/17 Current Visit: No Status: Chronic Qualifiers: COPD type: COPD with acute exacerbation Qualified Code(s): J44.1 - Chronic obstructive pulmonary disease with (acute) exacerbation (9) Congestive heart failure Onset Date: 06/04/17 Current Visit: No Status: Chronic Qualifiers: Qualified Code(s): I50.33 - Acute on chronic diastolic (congestive) heart failure (10) Coronary artery disease Onset Date: 06/04/17 Current Visit: No Status: Chronic Qualifiers: Coronary Disease-Associated Artery/Lesion type: [place] artery [place] vs. transplanted heart: [place] heart Associated angina: without angina Qualified Code(s): I25.10 - Atherosclerotic heart disease of [place] coronary artery without angina pectoris (11) Depression with anxiety Onset Date: 06/04/17 Current Visit: No Status: Chronic (12) Diabetes mellitus Onset Date: 06/04/17 Current Visit: No Status: Chronic Qualifiers: Diabetes mellitus type: type 2 Diabetes mellitus intermediate insulin use: without superintendent terminal use Diabetes mellitus complication status: with unspecified complications Qualified Code(s): E11.8 - Type 2 diabetes mellitus with unspecified complications (13) Hypertension Onset Date: 06/04/17 Current Visit: No Status: Chronic Qualifiers: Hypertension type: essential hypertension Qualified Code(s): I10 - Essential (primary) hypertension Brief History of Present Illness: 73-year-old male presented to the emergency room with shortness of breath. [facility] from the [facility]. Pneumonia was suspected. [facility] wanted further evaluation. Most information came from the family and ER physician. Patient has had poor intake. Patient had last BM yesterday as per [facility]. Abdomen slightly distended. Patient with increasing shortness of breath. Patient denies chest pain. Patient with past medical history of recent hospitalization at [facility] for multiple issues including renal cell carcinoma and thrombus. Patient also had suspected GI bleed. He received transfusions. He was seen by GI. This included the EGD and colonoscopy. Patient was considering surgery for renal cell carcinoma. After multiple discussions with cardiology, pulmonology, and oncology, patient and family decided not to proceed with surgery due to his complicated history with increase risk factors. Patient was to start immunotherapy but this condition has declined. There was a discussion with his physicians about hospice as well. In the ER patient was hypotensive and tachypneic. Patient was given 2 boluses of fluid. White count 15. Hemoglobin 8.3. Chest x-ray shows right middle lobe pneumonia. Lactic acid within normal range. Initial troponin unremarkable. Pro calcitonin slightly elevated. Patient admitted for further treatment. When I saw the patient in the ER, blood pressures have improved with hydration. Patient appears to be stable. Patient on nasal cannula. Family at bedside. Patient with slight distention to the abdomen. Patient has had poor bowel movements. Hospital Course: Overall during the hospital stay patient remained stable Patient was initially admitted to the hospital for sepsis most likely secondary to UTI, bacteremia, right middle lobe pneumonia. Patient was started on broad- spectrum antibiotics. Cultures were drawn. Blood culture was positive for Staph epididymis and urine culture was positive for Proteus. Sputum culture has remained negative while here in the hospital. Patient was switched to IV vancomycin and meropenem to cover for bacteremia in urine culture. Patient had marked improvement in his symptoms. At that time patient had a PICC line placed to get his IV antibiotics for total of 2 weeks. jail was sent all the clinicals and patient was [facility] back to [facility] and thus was transferred back there for further care. While here in the hospital patient also had acute on chronic respiratory failure most likely secondary to COPD exacerbation secondary to right middle lobe pneumonia. Patient remained on duo nebs and oxygen while here in the hospital. Pulmonology was consulted who agreed with the plan. Upon discharge to the [facility] patient was asked to continue taking his inhalers as prescribed by the petroleum geologist. Patient demonstrated understanding and agreed with the plan and thus was discharged to the [facility] under stable condition. All other chronic conditions remained stable while here in the hospital. Vital Signs/Physical Exam: Temp Pulse Resp BP Pulse Ox 97.0 F 93 H 17 149/80 H 96 02/03/19 12:00 02/03/19 12:00 02/03/19 12:00 02/03/19 12:00 02/03/19 12:00 General: Alert, In no apparent distress HEENT: Atraumatic, PERRLA, EOMI Neck: Supple, JVD not distended Respiratory: Clear to auscultation bilaterally, Normal air movement Cardiovascular: Regular rate/rhythm, Normal S1 S2 Gastrointestinal: Normal bowel sounds, No tenderness Musculoskeletal: No tenderness Integumentary: No rashes Neurological: Normal speech, Normal tone, Normal affect Lymphatics: No axilla or inguinal lymphadenopathy Laboratory Data at Discharge: WBC 10.4 K/uL (4.3-10.9) D 02/03/19 05:00 Hgb 8.8 g/dL (13.6-17.9) L 02/03/19 05:00 Hct 26.2 % (39.6-49.0) L 02/03/19 05:00 Plt Count 133 K/uL (152-406) L D 02/03/19 05:00 Sodium 145 mmol/L (136-145) 02/03/19 05:00 Potassium 3.7 mmol/L (3.5-5.1) 02/03/19 05:00 BUN 15 mg/dL (7-18) 02/03/19 05:00 Creatinine 0.97 mg/dL (0.55-1.3) 02/03/19 05:00 Glucose 100 mg/dL (74-106) 02/03/19 05:00 Magnesium 1.8 mg/dL (1.8-2.4) 02/03/19 05:00 Home Medications: ALPRAZolam [Alprazolam] 1 tab PO BEDTIME 01/31/19 Apixaban [Eliquis] 1 tab PO BID 01/31/19 Atorvastatin Calcium [Lipitor*] 10 mg PO BEDTIME 01/31/19 Atorvastatin Calcium [Lipitor*] 10 mg PO BEDTIME 01/31/19 Budesonide/Formoterol Fumarate [Symbicort 80-4.5 Mcg Inhaler] 2 puff IH QID 01/16 Carvedilol 1 tab PO BID 01/31/19 Gabapentin 1 tab PO TID 01/31/19 Glimepiride 2 mg PO DAILY 01/31/19 Hydrocodone Bit/Acetaminophen [Hydrocodon-Acetaminoph 7.5-325] 1 each PO Q6H PRN 01/31/19 Ipratropium/Albuterol Sulfate [Iprat-Albut 0.5-3(2.5) mg/3 ml] 3 ml IH Q4H PRN 01/31/19 Lactulose 20 gm PO Q12H PRN 01/31/19 Lisinopril [Prinivil*] 1 tab PO Q12H 01/31/19 Niacin [Niacin ER] 1,000 mg PO BEDTIME 01/31/19 Omeprazole 20 mg PO DAILY 01/31/19 Promethazine HCl 25 mg PO Q8H PRN 01/31/19 Ranolazine [Ranolazine ER] 1 tab PO BID 01/31/19 Sertraline HCl 50 mg PO DAILY 01/31/19 Sotalol HCl [Betapace*] 80 mg PO BID 01/31/19 Tamsulosin HCl 0.4 mg PO DAILY 01/31/19 Diet: Regular Activity: Ad delio
[2019-02-03] MEDS: ATORVASTATIN 10 MG TAB PO SCH (20:40)
[2019-02-03] MEDS ORDERED: VANCOMYCIN 2 GM in NA CHLORIDE 0.9% 500 ML IVPB SCH (21:00)
[2019-02-04] MEDS: IPRATROPIUM BROM 0.5MG/2.5ML NEB PRN ×2 (02:05→07:50)
[2019-02-04] MEDS: LEVALBUTEROL 0.63 MG/3 ML NEB NEB PRN ×2 (02:05→07:50)
[2019-02-04 05:48] LABS: Absolute Lymphocytes (CBC) 1.6 K/uL (0.7-4.9); Absolute Monocytes 0.7 K/uL (0.1-1.3); Absolute Neutrophil 5.1 K/uL (1.8-8.0); Basophils % 0.8 % (0-1.3); Eosinophils % 2.9 % (0-4.4); Hematocrit 27.8 % (39.6-49.0); MPV 8.3 fL (7.6-11.3); Monocytes % 9.2 % (3.3-12.3); RBC Red Blood Cell Count 3.51 M/uL (4.33-5.43)
[2019-02-04 05:51] LABS: Protime INR 2.43
[2019-02-04 05:59] LABS: Albumin 2.9 g/dL (3.4-5.0); Bilirubin Total 0.5 mg/dL (0.2-1.0); Magnesium 1.8 mg/dL (1.8-2.4); Phosphorus 1.8 mg/dL (2.5-4.9); Potassium 3.2 mmol/L (3.5-5.1); Protein, Total 6.6 g/dL (6.4-8.2)
[2019-02-04] MEDS: INSULIN -REGULAR HUMAN 50 UNIT/0.5 ML ML SQ SCH ×2 (07:30→11:30)
[2019-02-04] MEDS ORDERED: MAGNESIUM SULFATE 1 gm IVPB 1 GM/100 ML BAG IV ONE (08:00)
[2019-02-04] MEDS ORDERED: POTASSIUM CL SA 10 MEQ TAB PO ONE (09:00)
[2019-02-04] MEDS: SERTRALINE HCL 50 MG TAB PO SCH (09:03)
[2019-02-04] MEDS: APIXABAN 5 MG TABLET PO SCH (09:03)
[2019-02-04] MEDS: FAMOTIDINE 20 MG TAB PO SCH (09:03)
[2019-02-04] MEDS: GUAIFENESIN 600 MG SA TAB PO SCH (09:03)
[2019-02-04] MEDS: TAMSULOSIN 0.4 MG SR CAP PO SCH (09:03)
[2019-02-04] MEDS: SOTALOL HCL 80 MG TAB PO SCH (09:04)
[2019-02-04] MEDS: FUROSEMIDE 40 MG TABLET PO SCH (09:05)
[2019-02-04] MEDS: SOD FERRIC GLUC COMPLX/SUCROSE 125 MG in NA CHLORIDE 0.9% 100 ML IV SCH (09:06)
[2019-02-04] MEDS: Meropenem 1,000 MG in NA CHLORIDE 0.9% 100 ML IV SCH (09:06)
[2019-02-04 09:46] VITALS: O2SAT 97
--- NOTE | 2019-02-04 12:36 | P.PN ---
Subjective Date of Service: 02/04/19 Primary Care Provider: [facility] physician; Cardiology-Dr. Cruz; Oncology-Dr. Ignacio Chief Complaint: Pneumonia Patient seen and examined at bedside with RN. Chart reviewed. Case discussed with pulmonology. Patient did well overall. Is going to be transferred to [facility] today. Yesterday was not able to be transferred as he was late at night when [facility] called by her report. Review of Systems 10-point ROS is otherwise unremarkable Physical Examination - Vital Signs Temperature: 98.7 F Blood Pressure: 152/93 Pulse: 99 Respirations: 18 Pulse Ox (%): 99 - Physical Exam General: Alert, In no apparent distress HEENT: Atraumatic, PERRLA, EOMI Neck: Supple, JVD not distended Respiratory: Clear to auscultation bilaterally, Normal air movement Cardiovascular: Regular rate/rhythm, Normal S1 S2 Gastrointestinal: Normal bowel sounds, No tenderness Musculoskeletal: No tenderness Integumentary: No rashes Neurological: Normal speech, Normal tone, Normal affect Lymphatics: No axilla or inguinal lymphadenopathy - Studies Microbiology Data (last 24 hrs): 01/30/19 15:43 Blood - Blood Aerobic Blood Culture - Final Staph Epidermidis 01/30/19 15:43 Blood - Blood Gram Stain - Final 01/30/19 15:43 Blood - Blood Anaerobic Blood Culture - Final No growth in 5 days. Medications List Reviewed: Yes Assessment And Plan - Current Problems (Diagnosis) (1) Sepsis Onset Date: 01/15/18 Current Visit: No Status: Acute Qualifiers: Sepsis type: sepsis due to unspecified organism Qualified Code(s): A41.9 - Sepsis, unspecified organism (2) Pneumonia Current Visit: Yes Status: Acute Qualifiers: Pneumonia type: due to unspecified organism Laterality: right Lung location: middle lobe of lung Qualified Code(s): J18.1 - Lobar pneumonia, unspecified organism (3) Bacteremia Current Visit: No Status: Acute (4) UTI (urinary tract infection) Onset Date: 04/06/16 Current Visit: No Status: Acute Qualifiers: (5) Atrial fibrillation Onset Date: 06/04/17 Current Visit: No Status: Chronic Qualifiers: Atrial fibrillation type: chronic Qualified Code(s): I48.2 - Chronic atrial fibrillation (6) Benign prostatic hyperplasia Onset Date: 06/04/17 Current Visit: No Status: Chronic Qualifiers: Lower urinary tract symptom presence: symptoms present Lower urinary tract symptom detail: unspecified Qualified Code(s): N40.1 - Benign prostatic hyperplasia with lower urinary tract symptoms (7) Chronic anticoagulation Onset Date: 05/21/17 Current Visit: No Status: Chronic (8) Chronic obstructive pulmonary disease Onset Date: 06/04/17 Current Visit: No Status: Chronic Qualifiers: COPD type: COPD with acute exacerbation Qualified Code(s): J44.1 - Chronic obstructive pulmonary disease with (acute) exacerbation (9) Congestive heart failure Onset Date: 06/04/17 Current Visit: No Status: Chronic Qualifiers: Qualified Code(s): I50.33 - Acute on chronic diastolic (congestive) heart failure (10) Coronary artery disease Onset Date: 06/04/17 Current Visit: No Status: Chronic Qualifiers: Coronary Disease-Associated Artery/Lesion type: [place] artery [place] vs. transplanted heart: [place] heart Associated angina: without angina Qualified Code(s): I25.10 - Atherosclerotic heart disease of [place] coronary artery without angina pectoris (11) Depression with anxiety Onset Date: 06/04/17 Current Visit: No Status: Chronic (12) Diabetes mellitus Onset Date: 06/04/17 Current Visit: No Status: Chronic Qualifiers: Diabetes mellitus type: type 2 Diabetes mellitus snf insulin use: without remote computer terminal operator use Diabetes mellitus complication status: with unspecified complications Qualified Code(s): E11.8 - Type 2 diabetes mellitus with unspecified complications (13) Hypertension Onset Date: 06/04/17 Current Visit: No Status: Chronic Qualifiers: Hypertension type: essential hypertension Qualified Code(s): I10 - Essential (primary) hypertension - Plan Patient being transferred to the [facility] today. Will continue with IV antibiotics at [facility] for UTI, bacteremia, pneumoniae. Discharge Plan: Assisted Plan to discharge in: 24 Hours - Code Status/Comfort Care Code Status Assessed: Yes Critical Care: No
[2019-02-10 08:18] VITALS: BP 119/73; TEMP 97.4
== END 2019-02-04 13:10 | DRG 871 ==
LOC: ER 15:22 → ERHOLD 17:48 → 3RD-ICU 20:23 → 2ND 01-31 13:15
PROVIDERS: ADMIT Family Medicine; ATTEND Family Medicine
PROC: 30233N1 Transfusion of Nonautologous Red Blood Cells into Peripheral Vein, Percutaneous Approach (ICD-10-PCS; principal; 2019-02-01)
DX: A41.1 Sepsis due to other specified staphylococcus (principal); J18.1 Lobar pneumonia, unspecified organism; I50.33 Acute on chronic diastolic (congestive) heart failure; J96.20 Acute and chronic respiratory failure, unspecified whether with hypoxia or hypercapnia; C64.1 Malignant neoplasm of right kidney, except renal pelvis; N39.0 Urinary tract infection, site not specified; J44.0 Chronic obstructive pulmonary disease with (acute) lower respiratory infection; J44.1 Chronic obstructive pulmonary disease with (acute) exacerbation; B96.4 Proteus (mirabilis) (morganii) as the cause of diseases classified elsewhere; Z16.12 Extended spectrum beta lactamase (ESBL) resistance; I11.0 Hypertensive heart disease with heart failure; I48.2 Chronic atrial fibrillation; E11.9 Type 2 diabetes mellitus without complications; E78.5 Hyperlipidemia, unspecified; D63.8 Anemia in other chronic diseases classified elsewhere; D50.9 Iron deficiency anemia, unspecified; K59.09 Other constipation; I25.10 Atherosclerotic heart disease of native coronary artery without angina pectoris; N40.0 Benign prostatic hyperplasia without lower urinary tract symptoms; F41.8 Other specified anxiety disorders; Z79.01 Long term (current) use of 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; Z87.891 Personal history of nicotine dependence; Z95.5 Presence of coronary angioplasty implant and graft
CPT/HCPCS: 36415; 36430; 71045; 74178; 80048; 80053; 80202; 81003; 81015; 82962; 83605; 83735; 84100; 84132; 84145; 84439; 84443; 84484; 85014; 85018; 85025; 85610; 85730; 86850; 86900; 86901; 87040; 87070; 87077; 87086; 87088; 87186; 87205; 87804; 93005; 96360; 96361; 96365; 96367; 99285; J0692; J1940; J2916; J3370; J3475; J7030; P9016; Q9967

== ENCOUNTER 2019-06-15 16:48 | Inpatient (IN) | payer OTHER ==
--- OUTSIDE RECORDS SUMMARY | 2019-06-15 16:53 | XMS REPORT | Clinical Summary ---
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 Encounter Preadmit Phone 11/19/2018 Anesthesia Event Gastroenterology Scott Gabriel MD 11/19/2018 Surgery Gastroenterology Liyah, Christiano COLONOSCOPY Brandan 11/14/2018 Orders Only General Internal Medicine 11/13/2018 Anesthesia Event Gastroenterology Sergey Rodriguez CRNA 11/13/2018 Surgery Gastroenterology Vickey Beltran, UPPER ENDOSCOPY 11/11/2018 [facility] General Internal Chase, Aspiration pneumonia, unspecified aspiration pneumonia type, unspecified [...] Renal mass MD Soheila 11/11/2018 Travel after 06/14/2018 Social History Tobacco Use Types Packs/Day Years [...] Inhaled Oxygen Concentration 21% 11/28/2018 7:21 PM [facility] Weight 114.2 kg (251 lb 12.8 oz) 01/12/2019 2:07 PM CDT Height 185.4 cm (6' 1") 01/02/2019 12:44 PM CDT Body Mass Index 33.22 01/12/2019 2:07 PM CDT Plan of Treatment Not on file Implants Implanted Type Area Press Supervisor Device Shelf Model / Identifier Expiration Serial / Date Lot Device Clsr Candence Mynx 5fr [id number] - [id number] Cardiovascular Right: ACCESS CLOSURE 10/30/2019 [id number] / Implanted: Qty: 1 on 12/23/2017 by Emmanuel Schuster MD Groin / [id number] Procedures Procedure Name Priority Date/Time Associated Comments [...] RHYTHM STRIP - SCAN 12/04/2018 2:23 PM [facility] REPORT OF PROCEDURE - 12/04/2018 2:23 ENDOSCOPY SCAN PM [facility] POCT-GLUCOSE METER Routine 12/01/2018 5:08 Results for this PM [facility] procedure are in the results section. POCT-GLUCOSE METER Routine 12/01/2018 11:42 Results for this AM [facility] procedure are in the results section. POCT-GLUCOSE METER Routine 12/01/2018 7:10 Results for this AM [facility] procedure are in the results section. POCT-GLUCOSE METER Routine 11/30/2018 8:39 Results for this PM [facility] procedure are in the results section. POCT-GLUCOSE METER Routine 11/30/2018 6:09 Results for this PM [facility] procedure are in the results section. POCT-GLUCOSE METER Routine 11/30/2018 11:28 Results for this AM [facility] procedure are in the results section. POCT-GLUCOSE METER Routine 11/30/2018 7:10 Results for this AM [facility] procedure are in the results section. POCT-GLUCOSE METER Routine 11/29/2018 8:46 Results for this PM [facility] procedure are in the results section. POCT-GLUCOSE METER Routine 11/29/2018 6:08 Results for this PM [facility] procedure are in the results section. BASIC METABOLIC PANEL Routine 11/29/2018 3:00 Results for this (7) PM [facility] procedure are in the results section. MAGNESIUM Routine 11/29/2018 3:00 Results for this PM [facility] procedure are in the results section. PHOSPHORUS Routine 11/29/2018 3:00 Results for this PM [facility] procedure are in the results section. HEMOGLOBIN AND Routine 11/29/2018 3:00 Results for this HEMATOCRIT PM [facility] procedure are in the results section. POCT-GLUCOSE METER Routine 11/29/2018 12:28 Results for this PM [facility] procedure are in the results section. POCT-GLUCOSE METER Routine 11/29/2018 8:25 Results for this AM [facility] procedure are in the results section. HEMOGLOBIN AND Routine 11/28/2018 10:55 Results for this HEMATOCRIT PM [facility] procedure are in the results section. POCT-GLUCOSE METER Routine 11/28/2018 8:18 Results for this PM [facility] procedure are in the results section. POCT-GLUCOSE METER Routine 11/28/2018 6:09 Results for this PM [facility] procedure are in the results section. US ASPIRATION Routine 11/28/2018 5:31 Results for this PM [facility] procedure are in the results section. US RENAL BIOPSY CRISTELA 11/28/2018 5:31 Results for this PM [facility] procedure are in the results section. CYTOLOGY AP Routine 11/28/2018 4:48 Results for this PM [facility] procedure are in the results section. POCT-GLUCOSE METER Routine 11/28/2018 11:22 Results for this AM [facility] procedure are in the results section. POCT-GLUCOSE METER Routine 11/28/2018 8:07 Results for this AM [facility] procedure are in the results section. CBC W/PLT COUNT & Routine 11/28/2018 4:58 Results for this AUTO DIFFERENTIAL AM [facility] procedure are in the results section. PHOSPHORUS Routine 11/28/2018 4:58 Results for this AM [facility] procedure are in the results section. MAGNESIUM Routine 11/28/2018 4:58 Results for this AM [facility] procedure are in the results section. CBC W/PLT COUNT & Routine 11/28/2018 4:58 Results for this AUTO DIFFERENTIAL AM [facility] procedure are in the results section. CALCIUM, IONIZED Routine 11/28/2018 4:58 Results for this AM [facility] procedure are in the results section. BASIC METABOLIC PANEL Routine 11/28/2018 4:58 Results for this (7) AM [facility] procedure are in the results section. POCT-GLUCOSE METER Routine 11/27/2018 8:46 Results for this PM [facility] procedure are in the results section. POCT-GLUCOSE METER Routine 11/27/2018 4:07 Results for this PM [facility] procedure are in the results section. POCT-GLUCOSE METER Routine 11/27/2018 12:32 Results for this PM [facility] procedure are in the results section. POCT-GLUCOSE METER Routine 11/27/2018 7:32 Results for this AM [facility] procedure are in the results section. CBC W/PLT COUNT & Routine 11/27/2018 6:02 Results for this AUTO DIFFERENTIAL AM [facility] procedure are in the results section. PHOSPHORUS Routine 11/27/2018 6:02 Results for this AM [facility] procedure are in the results section. CALCIUM, IONIZED Routine 11/27/2018 6:02 Results for this AM [facility] procedure are in the results section. CBC W/PLT COUNT & Routine 11/27/2018 6:02 Results for this AUTO DIFFERENTIAL AM [facility] procedure are in the results section. MAGNESIUM Routine 11/27/2018 6:02 Results for this AM [facility] procedure are in the results section. BASIC METABOLIC PANEL Routine 11/27/2018 6:02 Results for this (7) AM [facility] procedure are in the results section. POCT-GLUCOSE METER Routine 11/26/2018 9:14 Results for this PM [facility] procedure are in the results section. POCT-GLUCOSE METER Routine 11/26/2018 5:52 Results for this PM [facility] procedure are in the results section. PT/APTT Routine 11/26/2018 11:10 Results for this AM [facility] procedure are in the results section. MAGNESIUM Routine 11/26/2018 11:10 Results for this AM [facility] procedure are in the results section. PHOSPHORUS Routine 11/26/2018 11:10 Results for this AM [facility] procedure are in the results section. BASIC METABOLIC PANEL Routine 11/26/2018 11:10 Results for this (7) AM [facility] procedure are in the results section. CBC (HEMOGRAM ONLY) Routine 11/26/2018 11:10 Results for this AM [facility] procedure are in the results section. POCT-GLUCOSE METER Routine 11/26/2018 7:27 Results for this AM [facility] procedure are in the results section. POCT-GLUCOSE METER Routine 11/25/2018 8:16 Results for this PM [facility] procedure are in the results section. POCT-GLUCOSE METER Routine 11/25/2018 5:47 Results for this PM [facility] procedure are in the results section. POCT-GLUCOSE METER Routine 11/25/2018 11:33 Results for this AM [facility] procedure are in the results section. NM KIDNEY IMAGING Routine 11/25/2018 11:15 Results for this SINGLE FLOWITH AM [facility] procedure are in FUNCTION the results section. CBC W/PLT COUNT & Routine 11/25/2018 9:18 Results for this AUTO DIFFERENTIAL AM [facility] procedure are in the results section. PHOSPHORUS Routine 11/25/2018 9:18 Results for this AM [facility] procedure are in the results section. MAGNESIUM Routine 11/25/2018 9:18 Results for this AM [facility] procedure are in the results section. CBC W/PLT COUNT & Routine 11/25/2018 9:18 Results for this AUTO DIFFERENTIAL AM [facility] procedure are in the results section. CALCIUM, IONIZED Routine 11/25/2018 9:18 Results for this AM [facility] procedure are in the results section. BASIC METABOLIC PANEL Routine 11/25/2018 9:18 Results for this (7) AM [facility] procedure are in the results section. POCT-GLUCOSE METER Routine 11/25/2018 7:26 Results for this AM [facility] procedure are in the results section. POCT-GLUCOSE METER Routine 11/24/2018 8:33 Results for this PM [facility] procedure are in the results section. POCT-GLUCOSE METER Routine 11/24/2018 5:57 Results for this PM [facility] procedure are in the results section. POCT-GLUCOSE METER Routine 11/24/2018 11:13 Results for this AM [facility] procedure are in the results section. NM LUNG SCAN STAT 11/24/2018 10:48 Results for this PERFUSION PARTICULATE AM [facility] procedure are in VENT the results section. POCT-GLUCOSE METER Routine 11/24/2018 7:41 Results for this AM [facility] procedure are in the results section. CBC W/PLT COUNT & Routine 11/24/2018 5:39 Results for this AUTO DIFFERENTIAL AM [facility] procedure are in the results section. CBC W/PLT COUNT & Routine 11/24/2018 5:39 Results for this AUTO DIFFERENTIAL AM [facility] procedure are in the results section. PHOSPHORUS Routine 11/24/2018 5:39 Results for this AM [facility] procedure are in the results section. MAGNESIUM Routine 11/24/2018 5:39 Results for this AM [facility] procedure are in the results section. COMPREHENSIVE Routine 11/24/2018 5:39 Results for this METABOLIC PANEL AM [facility] procedure are in the results section. CALCIUM, IONIZED Routine 11/24/2018 5:39 Results for this AM [facility] procedure are in the results section. VANCOMYCIN LEVEL, Timed 11/24/2018 5:39 Results for this TROUGH AM [facility] procedure are in the results section. POCT-GLUCOSE METER Routine 11/23/2018 9:09 Results for this PM [facility] procedure are in the results section. MRSA SCREEN Routine 11/23/2018 8:21 Results for this PM [facility] procedure are in the results section. POCT-GLUCOSE METER Routine 11/23/2018 5:24 Results for this PM [facility] procedure are in the results section. POCT-GLUCOSE METER Routine 11/23/2018 11:18 Results for this AM [facility] procedure are in the results section. POCT-GLUCOSE METER Routine 11/23/2018 7:10 Results for this AM [facility] procedure are in the results section. CBC W/PLT COUNT & Routine 11/23/2018 5:10 Results for this AUTO DIFFERENTIAL AM [facility] procedure are in the results section. B-TYPE NATRIURETIC Routine 11/23/2018 5:10 Results for this FACTOR (BNP) AM [facility] procedure are in the results section. CBC W/PLT COUNT & Routine 11/23/2018 5:10 Results for this AUTO DIFFERENTIAL AM [facility] procedure are in the results section. PHOSPHORUS Routine 11/23/2018 5:10 Results for this AM [facility] procedure are in the results section. MAGNESIUM Routine 11/23/2018 5:10 Results for this AM [facility] procedure are in the results section. CALCIUM, IONIZED Routine 11/23/2018 5:10 Results for this AM [facility] procedure are in the results section. COMPREHENSIVE Routine 11/23/2018 5:10 Results for this METABOLIC PANEL AM [facility] procedure are in the results section. CBC W/PLT COUNT & Routine 11/23/2018 12:16 Results for this AUTO DIFFERENTIAL AM [facility] procedure are in the results section. LACTIC ACID, VENOUS Routine 11/23/2018 12:16 Results for this AM [facility] procedure are in the results section. CBC W/PLT COUNT & Routine 11/23/2018 12:16 Results for this AUTO DIFFERENTIAL AM [facility] procedure are in the results section. BLOOD CULTURE Routine 11/23/2018 12:16 Results for this AM [facility] procedure are in the results section. CT CHEST WITHOUT IV Routine 11/22/2018 10:56 Results for this CONTRAST PM [facility] procedure are in the results section. POCT-GLUCOSE METER Routine 11/22/2018 9:20 Results for this PM [facility] procedure are in the results section. POCT-GLUCOSE METER Routine 11/22/2018 5:13 Results for this PM [facility] procedure are in the results section. BLOOD CULTURE Routine 11/22/2018 4:40 Results for this PM [facility] procedure are in the results section. POCT-GLUCOSE METER Routine 11/22/2018 11:18 Results for this AM [facility] procedure are in the results section. POCT-GLUCOSE METER Routine 11/22/2018 7:21 Results for this AM [facility] procedure are in the results section. COMPREHENSIVE Routine 11/22/2018 7:13 Results for this METABOLIC PANEL AM [facility] procedure are in the results section. MAGNESIUM Routine 11/22/2018 7:13 Results for this AM [facility] procedure are in the results section. CALCIUM, IONIZED Routine 11/22/2018 5:37 Results for this AM [facility] procedure are in the results section. PHOSPHORUS Routine 11/22/2018 5:24 Results for this AM [facility] procedure are in the results section. CBC W/PLT COUNT & STAT 11/21/2018 10:31 Results for this AUTO DIFFERENTIAL PM [facility] procedure are in the results section. COMPREHENSIVE STAT 11/21/2018 10:31 Results for this METABOLIC PANEL PM [facility] procedure are in the results section. LACTIC ACID, VENOUS STAT 11/21/2018 10:31 Results for this PM [facility] procedure are in the results section. CBC W/PLT COUNT & STAT 11/21/2018 10:31 Results for this AUTO DIFFERENTIAL PM [facility] procedure are in the results section. POCT-GLUCOSE METER Routine 11/21/2018 9:40 Results for this PM [facility] procedure are in the results section. XR CHEST 1 VIEW Routine 11/21/2018 9:40 Results for this PORTABLE/BEDSIDE PM [facility] procedure are in the results section. POCT-GLUCOSE METER Routine 11/21/2018 5:44 Results for this PM [facility] procedure are in the results section. POCT-GLUCOSE METER Routine 11/21/2018 11:27 Results for this AM [facility] procedure are in the results section. POCT-GLUCOSE METER Routine 11/21/2018 7:18 Results for this AM [facility] procedure are in the results section. CBC W/PLT COUNT & Routine 11/21/2018 5:07 Results for this AUTO DIFFERENTIAL AM [facility] procedure are in the results section. CBC W/PLT COUNT & Routine 11/21/2018 5:07 Results for this AUTO DIFFERENTIAL AM [facility] procedure are in the results section. CALCIUM, IONIZED Routine 11/21/2018 5:07 Results for this AM [facility] procedure are in the results section. PHOSPHORUS Routine 11/21/2018 5:07 Results for this AM [facility] procedure are in the results section. MAGNESIUM Routine 11/21/2018 5:07 Results for this AM [facility] procedure are in the results section. BASIC METABOLIC PANEL Routine 11/21/2018 5:07 Results for this (7) AM [facility] procedure are in the results section. POCT-GLUCOSE METER Routine 11/20/2018 8:50 Results for this PM [facility] procedure are in the results section. POCT-GLUCOSE METER Routine 11/20/2018 12:11 Results for this PM [facility] procedure are in the results section. CT ABDOMEN - RENAL Routine 11/20/2018 9:54 Results for this MASS/CYST EVALUATION AM [facility] procedure are in the results section. POCT-GLUCOSE METER Routine 11/20/2018 7:45 Results for this AM [facility] procedure are in the results section. CBC W/PLT COUNT & Routine 11/20/2018 4:53 Results for this AUTO DIFFERENTIAL AM [facility] procedure are in the results section. CELIAC DISEASE PANEL Routine 11/20/2018 4:53 Results for this AM [facility] procedure are in the results section. CBC W/PLT COUNT & Routine 11/20/2018 4:53 Results for this AUTO DIFFERENTIAL AM [facility] procedure are in the results section. PHOSPHORUS Routine 11/20/2018 4:53 Results for this AM [facility] procedure are in the results section. MAGNESIUM Routine 11/20/2018 4:53 Results for this AM [facility] procedure are in the results section. CALCIUM, IONIZED Routine 11/20/2018 4:53 Results for this AM [facility] procedure are in the results section. BASIC METABOLIC PANEL Routine 11/20/2018 4:53 Results for this (7) AM [facility] procedure are in the results section. POCT-GLUCOSE METER Routine 11/19/2018 8:38 Results for this PM [facility] procedure are in the results section. XR ABDOMEN 1 VIEW CRISTELA 11/19/2018 8:01 Results for this PM [facility] procedure are in the results section. POCT-GLUCOSE METER Routine 11/19/2018 7:45 Results for this PM [facility] procedure are in the results section. REPORT OF PROCEDURE - 11/19/2018 6:54 ENDOSCOPY URL PM [facility] POCT-GLUCOSE METER Routine 11/19/2018 4:54 Results for this PM [facility] procedure are in the results section. XR CHEST 1 VIEW Routine 11/19/2018 3:00 Results for this PORTABLE/BEDSIDE PM [facility] procedure are in the results section. COLONOSCOPY 11/19/2018 1:00 Anemia, unspecified PM [facility] type POCT-GLUCOSE METER Routine 11/19/2018 11:52 Results for this AM [facility] procedure are in the results section. POCT-GLUCOSE METER Routine 11/19/2018 7:00 Results for this AM [facility] procedure are in the results section. CBC W/PLT COUNT & Routine 11/19/2018 6:14 Results for this AUTO DIFFERENTIAL AM [facility] procedure are in the results section. CBC W/PLT COUNT & Routine 11/19/2018 6:14 Results for this AUTO DIFFERENTIAL AM [facility] procedure are in the results section. PHOSPHORUS Routine 11/19/2018 6:14 Results for this AM [facility] procedure are in the results section. MAGNESIUM Routine 11/19/2018 6:14 Results for this AM [facility] procedure are in the results section. BASIC METABOLIC PANEL Routine 11/19/2018 6:14 Results for this (7) AM [facility] procedure are in the results section. POCT-GLUCOSE METER Routine 11/18/2018 8:48 Results for this PM [facility] procedure are in the results section. POCT-GLUCOSE METER Routine 11/18/2018 10:53 Results for this AM [facility] procedure are in the results section. POCT-GLUCOSE METER Routine 11/18/2018 7:16 Results for this AM [facility] procedure are in the results section. CBC W/PLT COUNT & Routine 11/18/2018 4:29 Results for this AUTO DIFFERENTIAL AM [facility] procedure are in the results section. PHOSPHORUS Routine 11/18/2018 4:29 Results for this AM [facility] procedure are in the results section. MAGNESIUM Routine 11/18/2018 4:29 Results for this AM [facility] procedure are in the results section. CBC W/PLT COUNT & Routine 11/18/2018 4:29 Results for this AUTO DIFFERENTIAL AM [facility] procedure are in the results section. CALCIUM, IONIZED Routine 11/18/2018 4:29 Results for this AM [facility] procedure are in the results section. BASIC METABOLIC PANEL Routine 11/18/2018 4:29 Results for this (7) AM [facility] procedure are in the results section. POCT-GLUCOSE METER Routine 11/17/2018 9:26 Results for this PM [facility] procedure are in the results section. POCT-GLUCOSE METER Routine 11/17/2018 5:10 Results for this PM [facility] procedure are in the results section. POCT-GLUCOSE METER Routine 11/17/2018 11:47 Results for this AM [facility] procedure are in the results section. BASIC METABOLIC PANEL Routine 11/17/2018 9:01 Results for this (7) AM [facility] procedure are in the results section. CBC (HEMOGRAM ONLY) Routine 11/17/2018 9:01 Results for this AM [facility] procedure are in the results section. POCT-GLUCOSE METER Routine 11/17/2018 7:16 Results for this AM [facility] procedure are in the results section. POCT-GLUCOSE METER Routine 11/16/2018 7:58 Results for this PM [facility] procedure are in the results section. POCT-GLUCOSE METER Routine 11/16/2018 5:49 Results for this PM [facility] procedure are in the results section. POCT-GLUCOSE METER Routine 11/16/2018 11:25 Results for this AM [facility] procedure are in the results section. POCT-GLUCOSE METER Routine 11/16/2018 8:08 Results for this AM [facility] procedure are in the results section. COMPREHENSIVE Routine 11/16/2018 4:43 Results for this METABOLIC PANEL AM [facility] procedure are in the results section. CBC (HEMOGRAM ONLY) Routine 11/16/2018 4:43 Results for this AM [facility] procedure are in the results section. POCT-GLUCOSE METER Routine 11/15/2018 9:03 Results for this PM [facility] procedure are in the results section. POCT-GLUCOSE METER Routine 11/15/2018 5:19 Results for this PM [facility] procedure are in the results section. POCT-GLUCOSE METER Routine 11/15/2018 11:40 Results for this AM [facility] procedure are in the results section. POCT-GLUCOSE METER Routine 11/15/2018 7:32 Results for this AM [facility] procedure are in the results section. POCT-GLUCOSE METER Routine 11/15/2018 6:25 Results for this AM [facility] procedure are in the results section. BASIC METABOLIC PANEL Routine 11/15/2018 5:36 Results for this (7) AM [facility] procedure are in the results section. CBC (HEMOGRAM ONLY) Routine 11/15/2018 5:36 Results for this AM [facility] procedure are in the results section. B-TYPE NATRIURETIC Routine 11/15/2018 5:36 Results for this FACTOR (BNP) AM [facility] procedure are in the results section. POCT-GLUCOSE METER Routine 11/14/2018 8:26 Results for this PM [facility] procedure are in the results section. XR CHEST 1 VIEW Routine 11/14/2018 6:51 Results for this PORTABLE/BEDSIDE PM [facility] procedure are in the results section. XR ABDOMEN 1 VIEW STAT 11/14/2018 6:45 Results for this PM [facility] procedure are in the results section. POCT-GLUCOSE METER Routine 11/14/2018 5:24 Results for this PM [facility] procedure are in the results section. TROPONIN I Routine 11/14/2018 3:45 Results for this PM [facility] procedure are in the results section. CREATINE KINASE (CK) Routine 11/14/2018 3:45 Results for this PM [facility] procedure are in the results section. ECG 12-LEAD Routine 11/14/2018 3:26 PM [facility] Procedure Note - Interface, External Ris In - 11/14/2018 3:41 PM [facility] Ventricular Rate 103 BPM Atrial Rate 103 BPM P-R Interval 80 ms QRS Duration 120 ms Q-T Interval 336 ms QTC Calculation(Bazett) 440 ms P [place] 24 degrees R [place] -60 degrees T [place] 71 degrees Sinus tachycardia with short PA Left axis deviation Low voltage QRS Inferior infarct , age undetermined Abnormal ECG When compared with ECG of 11-NOV-2013 07:26, Significant changes have occurred ECG 12-LEAD Routine 11/14/2018 3:26 PM Results for this [facility] procedure are in the results section. XR ABDOMEN 1 VIEW STAT 11/14/2018 3:20 PM Results for this [facility] procedure are in the results section. POCT-GLUCOSE METER Routine 11/14/2018 11:26 AM Results for this [facility] procedure are in the results section. POCT-GLUCOSE METER Routine 11/14/2018 7:41 AM Results for this [facility] procedure are in the results section. CBC W/PLT COUNT & AUTO Routine 11/14/2018 5:02 AM Results for this DIFFERENTIAL [facility] procedure are in the results section. PROTHROMBIN TIME/INR Routine 11/14/2018 5:02 AM Results for this [facility] procedure are in the results section. COMPREHENSIVE Routine 11/14/2018 5:02 AM Results for this METABOLIC PANEL [facility] procedure are in the results section. CBC W/PLT COUNT & AUTO Routine 11/14/2018 5:02 AM Results for this DIFFERENTIAL [facility] procedure are in the results section. US RENAL COMPLETE Routine 11/13/2018 11:20 PM Results for this [facility] procedure are in the results section. POCT-GLUCOSE METER Routine 11/13/2018 9:20 PM Results for this [facility] procedure are in the results section. TRANSFUSION SERVICE 11/13/2018 6:03 PM REPORT - SCAN [facility] POCT-GLUCOSE METER Routine 11/13/2018 5:28 PM Results for this [facility] procedure are in the results section. POCT-GLUCOSE METER Routine 11/13/2018 3:37 PM Results for this [facility] procedure are in the results section. REPORT OF PROCEDURE - 11/13/2018 1:40 PM ENDOSCOPY URL [facility] REPORT OF PROCEDURE - 11/13/2018 1:10 PM ENDOSCOPY URL [facility] POCT-GLUCOSE METER Routine 11/13/2018 12:24 PM Results for this [facility] procedure are in the results section. COLONOSCOPY 11/13/2018 12:00 PM Iron deficiency [facility] anemia, unspecified iron deficiency anemia type Special Needs REQ:TF UPPER ENDOSCOPY 11/13/2018 12:00 PM [facility] Iron deficiency anemia, unspecified iron deficiency anemia type Special Needs REQ:TF POCT-GLUCOSE METER Routine 11/13/2018 11:38 AM [facility] POCT-GLUCOSE METER Routine 11/13/2018 7:21 AM [facility] CBC W/PLT COUNT & AUTO Routine 11/13/2018 5:10 AM [facility] Results for this DIFFERENTIAL procedure are in the results section. HEMOGLOBIN A1C Routine 11/13/2018 5:10 AM [facility] TROPONIN I Routine 11/13/2018 5:10 AM [facility] OSMOLALITY, SERUM Routine 11/13/2018 5:10 AM [facility] TSH/FREE T4 IF INDICATED Routine 11/13/2018 5:10 AM [facility] CREATINE KINASE (CK) Routine 11/13/2018 5:10 AM [facility] B-TYPE NATRIURETIC FACTOR Routine 11/13/2018 5:10 AM [facility] Results for this (BNP) procedure are in the results section. PHOSPHORUS Routine 11/13/2018 5:10 AM [facility] MAGNESIUM Routine 11/13/2018 5:10 AM [facility] CALCIUM, IONIZED Routine 11/13/2018 5:10 AM [facility] PROTHROMBIN TIME/INR Routine 11/13/2018 5:10 AM [facility] COMPREHENSIVE METABOLIC Routine 11/13/2018 5:10 AM [facility] Results for this PANEL procedure are in the results section. CBC W/PLT COUNT & AUTO Routine 11/13/2018 5:10 AM [facility] Results for this DIFFERENTIAL procedure are in the results section. OSMOLALITY, URINE Routine 11/13/2018 12:58 AM [facility] CREATININE, RANDOM URINE Routine 11/13/2018 12:58 AM [facility] PROTEIN, RANDOM URINE Routine 11/13/2018 12:58 AM [facility] SODIUM, RANDOM URINE Routine 11/13/2018 12:58 AM [facility] URINALYSIS W/ MICROSCOPIC Routine 11/13/2018 12:58 AM [facility] HEMOGLOBIN AND HEMATOCRIT Routine 11/13/2018 12:49 AM [facility] POCT-GLUCOSE METER Routine 11/12/2018 9:16 PM [facility] POCT-GLUCOSE METER Routine 11/12/2018 4:36 PM [facility] HEMOGLOBIN AND HEMATOCRIT Routine 11/12/2018 4:05 PM [facility] POCT-GLUCOSE METER Routine 11/12/2018 1:53 PM [facility] HEMOGLOBIN AND HEMATOCRIT Routine 11/12/2018 12:26 PM [facility] URINALYSIS W/ REFLEX URINE Routine 11/12/2018 3:11 AM [facility] Results for this CULTURE procedure are in the results section. URINE CULTURE Routine 11/12/2018 3:11 AM [facility] IRON, TIBC, % SAT. (WITHOUT Routine 11/12/2018 3:10 AM [facility] Results for this FERRITIN) procedure are in the results section. FERRITIN Routine 11/12/2018 3:10 AM [facility] RETICULOCYTE COUNT Routine 11/12/2018 3:10 AM [facility] CBC W/PLT COUNT & AUTO Routine 11/12/2018 12:50 AM [facility] Results for this DIFFERENTIAL procedure are in the results section. TYPE AND SCREEN, AUTOMATED Routine 11/12/2018 12:50 AM [facility] PROTHROMBIN TIME/INR Routine 11/12/2018 12:50 AM [facility] COMPREHENSIVE METABOLIC Routine 11/12/2018 12:50 AM [facility] Results for this PANEL procedure are in the results section. CBC W/PLT COUNT & AUTO Routine 11/12/2018 12:50 AM [facility] Results for this DIFFERENTIAL procedure are in the results section. POCT-GLUCOSE METER Routine 11/11/2018 8:41 PM [facility] after 06/14/2018 Results RHYTHM STRIP - SCAN (01/20/2019 3:41 PM CDT)Only the most recent of2 resultswithin the time period is included. Narrative Performed At POC-Glucose meter (01/19/2019 4:27 PM CDT)Only the most recent of122 resultswithin the time period is included. POC-Glucose Meter 166 (H)Comment: TESTED AT 70 - 110 mg/dL [facility] [address] [facility] [id number] Specimen Blood Performing Organization Address City/State/Zipcode Phone Number [facility] [address] [place] [address] [phone] CENTER IR PICC line placement older than 5 yrs (01/19/2019 1:55 PM CDT) Specimen Narrative Performed At FINAL REPORT [facility] Right upper extremity PICC insertion. History: Need for long-term IV therapy. Vice President [employer]:Brandon Devries MD. Psychiatric Technician Assistant: Char Portillo (fellow). Modality: Sonography and fluoroscopy. [...] needle into the right atrium. A 5 Zimbabwean peel-away sheath was placed. The 5 Zimbabwean double-lumen PICC line was measured and cut [...] MD Report Verified Date/Time:01/19/2019 14:38:36 Reading Location: [place] [id number] Angio Body Reading Room Procedure Note Interface, External Ris In - 01/19/2019 2:40 PM CDT FINAL REPORT Right upper extremity PICC insertion. History: Need for long-term IV therapy. Vice President [employer]: Brandon Devries MD. Psychiatric Technician Assistant: Char Portillo (fellow). Modality: Sonography and fluoroscopy. [...] needle into the right atrium. A 5 Zimbabwean peel-away sheath was placed. The 5 Zimbabwean double-lumen PICC line was measured and cut [...] Report Verified Date/Time: 01/19/2019 14:38:36 Reading Location: [facility] P048 Angio Body Reading Room Performing Organization Address City/State/Zipcode Phone Number GE RIS Magnesium (01/19/2019 6:29 AM CDT)Only the most recent of18 resultswithin the time period is included. Magnesium 1.8Comment: Specimen slightly 1.6 - 2.6 mg/dL [facility] Specimen Blood Performing Organization Address City/[facility]/Zipcode Phone Number [facility] [address] [place] [address] [place] Basic Metabolic Panel (01/19/2019 6:29 AM CDT)Only the most recent of23 resultswithin the time period is included. Sodium 141 136 - 145 meq/L [facility] Potassium 3.7Comment: Specimen slightly 3.5 - 5.1 meq/L [facility] Chloride 114 (H) 98 - 107 meq/L [facility] CO2 21 (L) 22 - 29 meq/L [facility] BUN 17 7 - 21 mg/dL [facility] Creatinine 1.09Comment: Specimen 0.57 - 1.25 mg/dL [facility] Glucose 116 (H) 70 - 105 mg/dL [facility] Calcium 8.8 8.4 - 10.2 mg/dL [facility] EGFR 66Comment: ESTIMATED GFR IS mL/min/1.73 sq m [facility] NOT ACCURATE CREATININE [facility] CENTER CLEARANCE IN PREDICTING GLOMERULAR FILTRATION RATE. ESTIMATED GFR IS NOT APPLICABLE FOR DIALYSIS PATIENTS. Specimen Blood Performing Organization Address City/[facility]/Zipcode Phone Number [address] [address] [place] Calcium, Ionized (01/17/2019 4:45 AM CDT)Only the most recent of13 resultswithin the time period is included. Calcium, Ion 1.08 (L) 1.12 - 1.27 mmol/L [facility] pH, Blood 7.46 [facility] Specimen Blood Performing Organization Address City/State/Zipcode Phone Number [facility] [address] [place] [address] [phone] CENTER CBC with platelet count + automated diff (01/17/2019 4:45 AM CDT)Only the most recent of20 resultswithin the time period is included. WBC 8.0 3.5 - 10.5 K/L [facility] RBC 3.63 (L) 4.63 - 6.08 M/L [facility] Hemoglobin 9.3 (L) 13.7 - 17.5 GM/DL [facility] Hematocrit 31.1 (L) 40.1 - 51.0 % [facility] MCV 85.7 79.0 - 92.2 fL [facility] MCH 25.6 (L) 25.7 - 32.2 pg [facility] MCHC 29.9 (L) 32.3 - 36.5 GM/DL [facility] RDW 17.6 (H) 11.6 - 14.4 % [facility] Platelets 188 150 - 450 K/CU MM [facility] MPV 9.8 9.4 - 12.4 fL [facility] nRBC 0 0 - 0 /100 WBC [facility] % Neutros 59 % [facility] % Lymphs 30 % [facility] % Monos 7 % [facility] % Eos 3 % [facility] % Baso 1 % [facility] # Neutros 4.67 1.78 - 5.38 K/L [facility] # Lymphs 2.37 1.32 - 3.57 K/L [facility] # Monos 0.55 0.30 - 0.82 K/L [facility] # Eos 0.27 0.04 - 0.54 K/L [facility] # Baso 0.06 0.01 - 0.08 K/L [facility] Immature Granulocytes-Relative 1 0 - 1 % [facility] Specimen Blood Performing Organization Address City/[facility]/Zipcode Phone Number [address] [address] CENTER Phosphorus (01/17/2019 4:45 AM CDT)Only the most recent of17 resultswithin the time period is included. Phosphorus 3.1 2.3 - 4.7 mg/dL [facility] Specimen Blood Performing Organization Address [facility] Phone Number [address] [address] [phone] [place] Prothrombin time/INR (01/16/2019 7:18 AM CDT)Only the most recent of5 resultswithin the time period is included. Protime 16.0 (H) 11.7 - 14.7 seconds [facility] INR 1.3 <=5.9 [facility] Specimen Blood Narrative Performed At RECOMMENDED COUMADIN/WARFARIN INR THERAPY [facility] RANGES STANDARD DOSE: 2.0 - 3.0 Includes: PROPHYLAXIS for venous thrombosis, systemic embolization; TREATMENT for venous thrombosis and/or pulmonary embolus. HIGH RISK: Target INR is 2.5-3.5 for patients with mechanical heart valves. Performing Organization Address City/[facility] Centercode Phone Number [address] [address] [phone] CENTER B-type Natriuretic Factor (BNP) (01/14/2019 5:21 AM CDT)Only the most recent of6 resultswithin the time period is included. BNP 298 (H) 0 - 100 pg/mL [facility] Specimen Blood Performing Organization Address City/State/Zipcode Phone Number [facility] [address] [place] [address] CENTER MR brain without & with IV contrast (01/12/2019 11:53 PM CDT) Specimen Narrative Performed At FINAL REPORT [facility] MR, BRAIN, WITH \\T\\ WITHOUT [...] MD Report Verified Date/Time:01/13/2019 04:02:20 Reading Location: [address] Neuro Reading Room Procedure Note Interface, [...] Report Verified Date/Time: 01/13/2019 04:02:20 Reading Location: [facility] B1 C013V Neuro Reading Room Performing Organization Address City/State/Zipcode Phone Number GE RIS 2D Echo W/Doppler(CW/PW/Color) (01/12/2019 3:44 PM CDT) Ejection Fraction [facility] Specimen Narrative Performed At Transthoracic Echocardiography Report (TTE) [facility] Demographics Patient NameJaskaran REED of Study01/12/2019 JULIANA Male Visit [id number] Unknown Room [id number] Number Date of 1945Referring Sabrina Hargrove Physician Age 73 year(s)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 Specimen Narrative Performed At FINAL REPORT [employer] CT of the Chest dated 01/12/2019 COMPARISON: [...] MD Report Verified Date/Time:01/12/2019 13:03:39 Reading Location: [facility] B1 C013Y CT Body Reading Room Procedure [...] Report Verified Date/Time: 01/12/2019 13:03:39 Reading Location: [facility] B1 C013Y CT Body Reading Room Performing Organization Address City/State/Zipcode Phone Number [employer] US renal complete (01/11/2019 9:16 AM CDT)Only the most recent of2 resultswithin the time period is included. Specimen Narrative Performed At FINAL REPORT [employer] Renal ultrasound. Clinical History: KATHLEEN. Comparison Study: [...] MD Report Verified Date/Time:01/11/2019 10:50:26 Reading Location: [facility] C013 Ortho Consult Reading Room Procedure Note Interface, [...] Report Verified Date/Time: 01/11/2019 10:50:26 Reading Location: [facility] C013X [facility] Consult Reading Room Performing Organization Address City/State/Zipcode Phone Number [employer] TRANSFUSION SERVICE REPORT - SCAN (01/10/2019 6:00 PM CDT)Only the most recent of3 resultswithin the time period is included. Narrative Performed At MRA abdomen without & with IV contrast (01/10/2019 5:07 PM CDT) Specimen Narrative Performed At FINAL REPORT [employer] MRA of the abdominal aorta and renal [...] scan performed. Refer to formal dictation by [facility] Radiologist for details. In this examination, tumour [...] MD Report Verified Date/Time:01/11/2019 08:43:33 Reading Location: [place] [address] Cardiology MRI Procedure Note Interface, External Ris [...] scan performed. Refer to formal dictation by [facility] Radiologist for details. In this examination, tumour [...] Report Verified Date/Time: 01/11/2019 08:43:33 Reading Location: [place] [address] Cardiology MRI Performing Organization Address City/State/Zipcode Phone Number [place] R[facility] Prepare Leuko-Red RBC (01/09/2019 11:54 PM CDT) CROSSMATCH COMPATIBLE SAFETRACE TX Unit ABO O Pos SAFETRACE TX UNIT NUMBER [id number] SAFETRACE TX Status TX_TIMEINCHART SAFETRACE TX Blood Bank Product RED BLOOD CELLS SAFETRACE TX PRODUCT CODE [id number] SAFETRACE TX CROSSMATCH COMPATIBLE SAFETRACE TX Unit ABO O Pos SAFETRACE TX UNIT NUMBER [id number] SAFETRACE TX Status TX_TIMEINCHART SAFETRACE TX Blood Bank Product RED BLOOD CELLS SAFETRACE TX PRODUCT CODE [id number] SAFETRACE TX Specimen Other Performing Organization Address City/[facility] Phone Number SAFETRACE TX Potassium (01/09/2019 9:17 AM CDT)Only the most recent of3 resultswithin the time period is included. Potassium 5.5 (H)Comment: Specimen 3.5 - 5.1 meq/L [facility] slightly hemolyzed [facility] Specimen Blood Performing Organization Address [facility] Phone Number [address] [address] CENTER Comprehensive metabolic panel (01/09/2019 4:49 AM CDT)Only the most recent of9 resultswithin the time period is included. Protein, Total 7.3 6.0 - 8.3 gm/dL [facility] Albumin 3.8 3.5 - 5.0 g/dL [facility] Alkaline Phosphatase 91 40 - 150 U/L [facility] Total Bilirubin 0.5 0.2 - 1.2 mg/dL [facility] Sodium 139 136 - 145 meq/L [facility] Potassium 5.4 (H) 3.5 - 5.1 meq/L [facility] Chloride 110 (H) 98 - 107 meq/L [facility] CO2 20 (L) 22 - 29 meq/L [facility] BUN 45 (H) 7 - 21 mg/dL [facility] Creatinine 2.45 (H) 0.57 - 1.25 mg/dL [facility] Glucose 177 (H) 70 - 105 mg/dL [facility] Calcium 9.5 8.4 - 10.2 mg/dL [facility] AST 11 5 - 34 U/L [facility] ALT 9 6 - 55 U/L [facility] EGFR 26Comment: ESTIMATED GFR mL/min/1.73 sq m [facility] IS NOT ACCURATE [facility] CREATININE CLEARANCE IN PREDICTING GLOMERULAR FILTRATION RATE. ESTIMATED GFR IS NOT APPLICABLE FOR DIALYSIS PATIENTS. Specimen Blood Performing Organization Address City/State/Zipcode Phone Number [facility] [address] [place] [address] [phone] CENTER Transfuse Leuko-Red RBC (01/09/2019 2:04 AM CDT)Only the most recent of2 resultswithin the time period is included.Urinalysis w/Microscopic (01/09/2019 12:28 AM CDT)Only the most recent of2 resultswithin the time period is included. Color, UA Yellow [facility] Clarity, UA Cloudy [facility] Specific [place], UA 1.014 1.001 - 1.035 [facility] pH, UA 7.5 5.0 - 8.0 [facility] Protein, UA 50 mg/dL (A) Negative [facility] Glucose, UA Negative Negative [facility] Ketones, UA Negative Negative [facility] Bilirubin, UA Negative Negative [facility] Blood, UA Small (A) Negative [facility] Nitrite, UA Negative Negative [facility] Leukocytes, UA Large (A) Negative [facility] Urobilinogen, UA 0.2 0.2 - 1.0 mg/dL [facility] RBC, UA 71 /HPF [facility] WBC, UA 1,129 /HPF [facility] Bacteria, UA Many [facility] Mucus Rare [facility] Squam Epithel, UA 1 /HPF [facility] Hyaline Casts, UA 19 /LPF [facility] Specimen Source Urine, Voided [facility] Specimen Urine Performing Organization Address City/State/Zipcode Phone Number [facility] [address] [place], [place] [phone] [place] Hemoglobin and hematocrit (01/08/2019 7:33 PM CDT)Only the most recent of7 resultswithin the time period is included. Hemoglobin 8.0 (L) 13.7 - 17.5 GM/DL [facility] Hematocrit 26.2 (L) 40.1 - 51.0 % [facility] Specimen Blood Performing Organization Address City/[facility] Centercode Phone Number [facility] [address] [place] [address] [phone] [place] XR chest 1 view portable / bedside (01/08/2019 6:56 PM CDT)Only the most recent of4 resultswithin the time period is included. Specimen Narrative Performed At FINAL REPORT [facility] Chest, 1 view. History: Edema. [...] MD Report Verified Date/Time:01/08/2019 23:33:47 Reading Location: [address] Consult Reading Room Procedure Note Interface, External [...] Report Verified Date/Time: 01/08/2019 23:33:47 Reading Location: [address] Consult Reading Room Performing Organization Address City/[facility] Centercode Phone Number RIS Sodium, random urine (01/08/2019 5:41 PM CDT)Only the most recent of2 resultswithin the time period is included. Sodium Urine 90 meq/L [facility] Specimen Urine Narrative Performed At Reference Range: No Normals [facility] Performing Organization Address [facility] Phone Number [address] [address] [phone] [place] Protein, random urine (01/08/2019 5:41 PM CDT)Only the most recent of2 resultswithin the time period is included. Protein, Urine 19 (H) 0 - 14 mg/dL [facility] Specimen Urine Performing Organization Address [facility] Phone Number [address] [address] [phone] CENTER Osmolality, urine (01/08/2019 5:41 PM CDT)Only the most recent of2 resultswithin the time period is included. Osmolality, Ur 686Comment: Performed at 40-1,400 mOsm/kg [facility] [place] Specimen Urine Performing Organization Address City/[facility] CenterPress[facility]sense Phone Number [address] [address] [place] Creatinine, random urine (01/08/2019 5:41 PM CDT)Only the most recent of2 resultswithin the time period is included. Creatinine, Ur 89.1 mg/dL [facility] Specimen Urine Narrative Performed At Reference Range: No Normals [facility] Performing Organization Address [facility] Phone Number [address] [phone] [place] Eosinophil smear (01/08/2019 5:41 PM CDT) Eosinophil Smear No EOS seen No EOS seen [facility] Specimen Urine Performing Organization Address [facility] Phone Number [address] [phone] [place] Uric acid (01/08/2019 3:33 PM CDT) Uric Acid 8.3 (H) 2.6 - 7.2 mg/dL [facility] Specimen Blood Performing Organization Address [facility] Phone Number [address] [phone] [place] ECG 12 lead (01/08/2019 10:29 AM CDT)Only the most recent of2 resultswithin the time period is included. Specimen Narrative Performed At Ventricular Rate 69 BPM GE MUSE Atrial Rate 69 BPM QRS Duration 100 ms Q-T Interval 438 ms QTC Calculation(Bazett) 469 ms P [place] 64 degrees R [place] -18 degrees T [place] 79 degrees Sinus rhythm with 1st degree A-V block Low voltage QRS Nonspecific T wave abnormality Prolonged QT Abnormal ECG When compared with ECG of 14-NOV-2018 15:26, Vent. rate has decreased BY34 BPM [...] 438 ms QTC Calculation(Bazett) 469 ms P [place] 64 degrees R [place] -18 degrees T [place] 79 degrees Sinus rhythm with 1st degree A-V block Low voltage QRS Nonspecific T wave abnormality Prolonged QT Abnormal ECG When compared with ECG of 14-NOV-2018 15:26, Vent. rate has decreased BY 34 BPM QRS duration has decreased Criteria for Inferior infarct are no longer Present Nonspecific T wave abnormality no longer evident in Anterior leads Confirmed by MD Salud, [facility] ([id number]) on 01/08/2019 1:30:14 PM Performing Organization Address City/[facility]/Zipcode Phone Number MUSE Type and screen, automated (01/08/2019 9:04 AM CDT)Only the most recent of2 resultswithin the time period is included. ABO/RH AUTOMATED (BEAKER) O POSITIVE [facility] Ab Scrn NEGATIVE [facility] Specimen Blood Performing Organization Address [facility] Centercode Phone Number [address] [address] [phone] aPTT (01/08/2019 9:04 AM CDT) PTT 44.8 (H) 22.5 - 36.0 seconds [facility] Specimen Blood Performing Organization Address [facility]/Zipcode Phone Number [address] [address] CENTER EKG-SCANNED (12/04/2018 2:23 PM PORTER [facility]GGAGE) Narrative Performed At US renal biopsy (11/28/2018 5:31 PM PORTER [facility]GGAGE) Specimen Narrative Performed At FINAL REPORT [employer] Ultrasound guided fine-needle aspiration and core biopsy dated 11/28/2018 Procedure: Fine-needle aspiration and core biopsy of the right renal mass Pre-procedure diagnosis: Right renal mass Post-procedure diagnosis: Right renal mass Radiologist: Lurdes Fernandes MD Psychiatric Technician Assistant: None Sedation: Moderate sedation was administered. 1.5 [...] MD Report Verified Date/Time:11/28/2018 17:54:55 Reading Location: [address] [address] Ultrasound Reading Room Procedure Note Interface, External Ris In - 11/28/2018 5:57 PM PORTER LUGGAGE FINAL REPORT Ultrasound guided fine-needle aspiration and core biopsy dated 11/28/2018 Procedure: Fine-needle aspiration and core biopsy of the right renal mass Pre-procedure diagnosis: Right renal mass Post-procedure diagnosis: Right renal mass Radiologist: Lurdes Fernandes MD Psychiatric Technician Assistant: None Sedation: Moderate sedation was administered. 1.5 [...] Report Verified Date/Time: 11/28/2018 17:54:55 Reading Location: [address] Ultrasound Reading Room Performing Organization Address City/State/Zipcode Phone Number [facility] US Aspiration (11/28/2018 5:31 PM PORTER LUGGAGE) Specimen Narrative Performed At FINAL REPORT [facility] Ultrasound guided fine-needle aspiration and core biopsy dated 11/28/2018 Procedure: Fine-needle aspiration and core biopsy of the right renal mass Pre-procedure diagnosis: Right renal mass Post-procedure diagnosis: Right renal mass Radiologist: Lurdes Fernandes MD Psychiatric Technician Assistant: None Sedation: Moderate sedation was administered. 1.5 [...] MD Report Verified Date/Time:11/28/2018 17:54:55 Reading Location: [address] Ultrasound Reading Room Procedure Note Interface, External [facility] In - 11/28/2018 5:57 PM PORTER LUGGAGE FINAL REPORT Ultrasound guided fine-needle aspiration and core biopsy dated 11/28/2018 Procedure: Fine-needle aspiration and core biopsy of the right renal mass Pre-procedure diagnosis: Right renal mass Post-procedure diagnosis: Right renal mass Radiologist: Lurdes Fernandes MD Psychiatric Technician Assistant: None Sedation: Moderate sedation was administered. 1.5 [...] Report Verified Date/Time: 11/28/2018 17:54:55 Reading Location: [facility] [id number] Ultrasound Reading Room Performing Organization Address City/State/Zipcode Phone Number [facility] RIS Cytology (11/28/2018 4:48 PM PORTER LUGGAGE) Case Report Medical Cytology Report Case: [id number] [facility] Authorizing Provider:Gianna Peter MDCollected: 11/28/2018 1648 [facility] Ordering Location: [address] Received: 11/28/2018 1658 CENTER Service Pathologist: Chelsea Curran MD Specimen:Kidney, Right DIAGNOSIS RIGHT KIDNEY MASS, FNA AND CORE BIOPSY BY RADIOLOGIST (FILOMENA) ( DIRECT SMEARS AND CELL BLOCK OF ASPIRATE): [facility] - FEW ATYPICAL CELLS, COMPATIBLE WITH RENAL CELL CARCINOMA (see comment) [facility] Signing Pathologist Direct Phone Line: [phone] CENTER COMMENT The smears show few scattered [facility] atypical cells with foamy [facility] cytoplasm and a rare sukhwinder CENTER associated [...] and radiologic correlation is recommended. CPT Code(s) 68729, 18559, 08670 x 2; [facility] 32874; [address]93 [facility] CLINICAL DATA 6 cm right kidney mass [facility] SPECIMEN SOURCE RIGHT KIDNEY MASS FNA AND CORE [facility] BIOPSY [facility] GROSS DESCRIPTION Prepared 6 direct smear slides and cell block(A3) using collodion bag from material collected in RPMI [facility] Core biopsy collected in formalin contained two white/red fragments measuring 0.8 cm each; one 0.4 cm red fragment; one mostly white 0.9 cm fragment , and three red ragged fragments measuring 0.2 cm each, submitted entirely in A2. [facility] Collected: [id number] [place] Received: [id number] INTRAPROCEDURAL ADEQUACY VERY FEW CELLS SUSPICIOUS FOR [facility] RENAL CELL CARCINOMA (5:17PM, [facility] 11/28/2018, ) CENTER SPECIAL STUDIES The interpretation of this case included the use of immunohistochemistry or special stains. [facility] PAX-8 and CAM5.2 [facility] Immunohistochemistry technical testing was performed at [facility], Pathology Laboratory where it was developed and [...] complexity clinical laboratory testing. Gross assessment was [facility] performed at [facility] MEDICAL Pathology, [address] [place] [id number], Technical component was [facility] performed at [facility] MEDICAL Pathology, [address] [place] [id number], Professional component was [facility] performed at [facility] MEDICAL Pathology, [address] [place] [id number], Specimen Fine Needle Aspirate Narrative Performed At Performing Organization Address City/State/Zipcode Phone Number [facility] [address] [place] [address] [phone] CENTER PT/aPTT (11/26/2018 11:10 AM PORTER LUGGAGE) Protime 16.7 (H) 11.7 - 14.7 seconds [facility] INR 1.3 <=5.9 [facility] PTT 48.5 (H) 22.5 - 36.0 seconds [facility] Specimen Blood Narrative Performed At RECOMMENDED COUMADIN/WARFARIN INR THERAPY [facility] RANGES STANDARD DOSE: 2.0 - 3.0 Includes: PROPHYLAXIS for venous thrombosis, systemic embolization; TREATMENT for venous thrombosis and/or pulmonary embolus. HIGH RISK: Target INR is 2.5-3.5 for patients with mechanical heart valves. Performing Organization Address City/State/Zipcode Phone Number [facility] [address] [place], [place] [phone] [place] CBC (Hemogram only) (11/26/2018 11:10 AM PORTER LUGGAGE)Only the most recent of4 resultswithin the time period is included. WBC 7.1 3.5 - 10.5 K/L [facility] RBC 3.36 (L) 4.63 - 6.08 M/L [facility] Hemoglobin 8.5 (L) 13.7 - 17.5 GM/DL [facility] Hematocrit 28.4 (L) 40.1 - 51.0 % [facility] MCV 84.5 79.0 - 92.2 fL [facility] MCH 25.3 (L) 25.7 - 32.2 pg [facility] MCHC 29.9 (L) 32.3 - 36.5 GM/DL [facility] RDW 21.6 (H) 11.6 - 14.4 % [facility] Platelets 214 150 - 450 K/CU MM [facility] MPV 9.6 9.4 - 12.4 fL [facility] nRBC 0 0 - 0 /100 WBC [facility] Specimen Blood Performing Organization Address City/State/Zipcode Phone Number [facility] [address] [place] [address] CENTER NM renal scan (11/25/2018 11:15 AM PORTER LUGGAGE) Specimen Narrative Performed At FINAL REPORT RIS PROCEDURE: Functional RENAL SCAN, flow and function CPT CODE:00706 INDICATION:R rcca, eval differential renal function, renal [...] MD Report Verified Date/Time:11/25/2018 11:35:45 Reading Location: [address] Reading Room Procedure Note Interface, External Ris In - 11/25/2018 11:37 AM PORTER LUGGAGE FINAL REPORT PROCEDURE: Functional RENAL SCAN, flow and function CPT CODE: 29269 INDICATION: R rcca, eval differential renal function, [...] Verified Date/Time: 11/25/2018 11:35:45 Reading Location: [address] [facility] Reading Room Performing Organization Address City/State/Zipcode Phone Number [employer] NM lung scan (V/Q) (11/24/2018 10:48 AM PORTER LUGGAGE) Specimen Narrative Performed At FINAL REPORT [employer] PROCEDURE: V/Q LUNG SCAN CPT CODE: 84672 INDICATION: Acute chest pain PROTOCOL: 10.7 mCi [...] MD Report Verified Date/Time:11/24/2018 12:25:50 Reading Location: [address] [facility] Reading Room Procedure Note Interface, External Ris In - 11/24/2018 2:18 PM PORTER LUGGAGE FINAL REPORT PROCEDURE: V/Q LUNG SCAN CPT CODE: 84356 INDICATION: Acute chest pain PROTOCOL: 10.7 mCi [...] Report Verified Date/Time: 11/24/2018 12:25:50 Reading Location: [address] Reading Room Performing Organization Address City/State/Zipcode Phone Number [facility] Vancomycin level, trough (11/24/2018 5:39 AM PORTER LUGGAGE) Vancomycin Tr 17.7 10.0 - 20.0 ug/mL [facility] Specimen Blood Narrative Performed At Hold dose if trough >20 mcg/ml [facility] Performing Organization Address City/[facility] Centercode Phone Number [address] [address] [phone] [place] MRSA screen (11/23/2018 8:21 PM PORTER LUGGAGE) Result No MRSA isolated [facility] Specimen Nasal Performing Organization Address City/[facility] Centercode Phone Number [address] [address] [place] Lactic acid, venous, whole blood (11/23/2018 12:16 AM PORTER LUGGAGE)Only the most recent of2 resultswithin the time period is included. Lactate, Venous 2.3 (H) 0.5 - 2.2 mmol/L [facility] Specimen Blood Performing Organization Address City/[facility]/Zipcode Phone Number [address] [address] [place] Blood Culture - Routine (Left Venipuncture) (11/23/2018 12:16 AM PORTER LUGGAGE)Only the most recent of2 resultswithin the time period is included. Result No growth in 5 days [facility] Specimen Blood Performing Organization Address City/State/Zipcode Phone Number [facility] [address] [place] [address] abdomen - renal mass/cyst evaluation (11/20/2018 9:54 AM PORTER LUGGAGE) Specimen Narrative Performed At FINAL REPORT [facility] RIS ABDOMINAL CT DATED 11/20/2018 COMPARISON: June 16, [...] MD Report Verified Date/Time:11/20/2018 15:11:56 Reading Location: [facility] C013Y CT Body Reading Room Procedure Note Interface, External Ris In - 11/20/2018 3:14 PM PORTER LUGGAGE FINAL REPORT ABDOMINAL CT DATED 11/20/2018 COMPARISON: [...] consistent with renal cell carcinoma. Signed: Lurdes Fernnades MD Report Verified Date/Time: 11/20/2018 15:11:56 Reading Location: [facility] C013Y CT Body Reading Room Performing Organization Address City/State/Zipcode Phone Number [facility] Celiac Disease Panel (11/20/2018 4:53 AM PORTER LUGGAGE) Scan Result [facility] Celiac Disease Profile Refer to Celiac [facility] [employer] Disease [facility] results. Specimen Blood Narrative Performed At Performing Organization Address City/State/[facility] Centercode Phone Number [place] [address] INCORPOR[facility] [address] [facility] XR abdomen / KUB 1 view (11/19/2018 8:01 PM PORTER LUGGAGE)Only the most recent of3 resultswithin the time period is included. Specimen Narrative Performed At FINAL REPORT GE RIS EXAMINATION: SUPINE ABDOMEN CLINICAL INDICATION:FEEDING TUBE PLACEMENT IMPRESSION: Tip of the feeding tube projects over the left upper abdomen in the region of the stomach. Signed: Myron Kenny MD Report Verified Date/Time:11/20/2018 00:47:19 Reading Location: [address] Reading Room Procedure Note Interface, External Ris In - 11/20/2018 12:49 AM PORTER LUGGAGE FINAL REPORT EXAMINATION: SUPINE ABDOMEN CLINICAL INDICATION: FEEDING TUBE PLACEMENT IMPRESSION: Tip of the feeding tube projects over the left upper abdomen in the region of the stomach. Signed: Myron Kenny MD Report Verified Date/Time: 11/20/2018 00:47:19 Reading Location: [address] Reading Room Performing Organization Address City/[facility] Centercode Phone Number RIS REPORT OF PROCEDURE - ENDOSCOPY URL (11/19/2018 6:54 PM PORTER LUGGAGE) Narrative Performed At Troponin I (11/14/2018 3:45 PM PORTER LUGGAGE)Only the most recent of2 resultswithin the time period is included. Troponin I <0.01 0.00 - 0.03 ng/mL [facility] Specimen Blood Narrative Performed At Troponin I (TnI) levels must be interpreted [facility] in the context of the presenting symptoms [...] disease, and persistent tachyarrhythmia. Performing Organization Address [facility]/Zipcode Phone Number [address] [address] CENTER Creatine Kinase (CK) (11/14/2018 3:45 PM PORTER LUGGAGE)Only the most recent of2 resultswithin the time period is included. Total CK 68 29 - 200 U/L [facility] Specimen Blood Performing Organization Address [facility]/Zipcode Phone Number [address] [address] [phone] CENTER REPORT OF PROCEDURE - ENDOSCOPY URL (11/13/2018 1:40 PM PORTER LUGGAGE) Narrative Performed At REPORT OF PROCEDURE - ENDOSCOPY URL (11/13/2018 1:10 PM PORTER LUGGAGE) Narrative Performed At TSH/Free T4 If Indicated (11/13/2018 5:10 AM PORTER LUGGAGE) TSH 2.50 0.35 - 4.94 uIU/mL [facility] Specimen Blood Performing Organization Address [facility]/Zipcode Phone Number [address] [address] [phone] [place] Osmolality, serum (11/13/2018 5:10 AM PORTER LUGGAGE) Osmolality Serum 292 275 - 295 mOsm/kg [facility] Specimen Blood Performing Organization Address [facility] Centercoia Phone Number [address] [address] [place] Hemoglobin A1c (11/13/2018 5:10 AM PORTER LUGGAGE) Hemoglobin A1C 6.5 (H) 4.3 - 6.1 % [facility] Specimen Blood Performing Organization Address [facility] Centercoia Phone Number [address] [address] [place] Urinalysis w/Microscopic + Reflex to Culture (11/12/2018 3:11 AM PORTER LUGGAGE) Color, UA Light Yellow [facility] Clarity, UA Clear [facility] Specific [place], UA 1.005 1.001 - 1.035 [facility] pH, UA 5.5 5.0 - 8.0 [facility] Protein, UA Negative Negative [facility] Glucose, UA Negative Negative [facility] Ketones, UA Negative Negative [facility] Bilirubin, UA Negative Negative [facility] Blood, UA Negative Negative [facility] Nitrite, UA Negative Negative [facility] Leukocytes, UA Small (A) Negative [facility] Urobilinogen, UA 0.2 0.2 - 1.0 mg/dL [facility] RBC, UA 1 /HPF [facility] WBC, UA 10 /HPF [facility] Squam Epithel, UA <1 /HPF [facility] Hyaline Casts, UA 1 /LPF [facility] Crystals, Urine Rare [facility] Amorphous Crystals Occasional [facility] Specimen Source [facility] Specimen Urine Performing Organization Address City/State/Zipcode Phone Number [facility] [address] [place] [address] CENTER Urine culture (11/12/2018 3:11 AM PORTER LUGGAGE) Result 10-19,000 col/mL Proteus [facility] mirabilis (A) [place] Specimen Urine Narrative Performed At <10,000 col/mL skin nathanael [facility] Organism Antibiotic Method Susceptibility Proteus mirabilis Amikacin [...] + Sulfamethoxazole >=320: Resistant Performing Organization Address [facility]/Zipcode Phone Number [facility] [address] [place] [address] [phone] CENTER Iron, TIBC, % sat. (without ferritin) (11/12/2018 3:10 AM PORTER LUGGAGE) Iron 51.0 40.0 - 160.0 ug/dL [facility] TIBC 374 250 - 450 ug/dL [facility] Iron % Saturation 14 (L) 20 - 55 % [facility] Specimen Blood Performing Organization Address [facility] Centercode Phone Number [address] [address] [place] Reticulocyte count (11/12/2018 3:10 AM PORTER LUGGAGE) % Retic 2.8 (H) 0.5 - 1.8 % [facility] Specimen Blood Performing Organization Address [facility] Centercode Phone Number [address] [address] [facility]ENTER Ferritin (11/12/2018 3:10 AM PORTER LUGGAGE) Ferritin 40 5 - 275 ng/mL [facility] Specimen Blood Performing Organization Address [facility] Centerco[facility] Phone Number [address] [address] [phone] CENTER after 06/14/2018 Insurance Payer Benefit Plan / Group Subscriber ID Type Phone Address MEDICARE MEDICARE A B xxxxxxxxxxx Medicare MEDICAID - MEDICAID MEDICAID [employer] xxxxxxxxx Medicaid MGD CARE Non-Contracted CARE IMPROVEMENT CARE IMPROVEMENT xxxxxxxxx MEDICARE MGD CARE PLUS MEDICAID MEDICAID [facility] xxxxxxxxx Medicaid Advance Directives For more information, please contact:[place] [address] [address] [place] [phone] Code Status Date Activated Date Inactivated Comments [...]
--- OUTSIDE RECORDS SUMMARY | 2019-06-15 16:57 | XMS REPORT | Continuity of Care Document ---
:1945 Author Organization [employer] Care Team Providers Name Role Phone [employer] Unavailable Unavailable Problems Problem Status Onset Classification Date Comments Source Date Reported Sepsis, 10/22/19 05/04/2019 [facility] unspecified 19 Medical organism Center DIVERTICULITIS Active 10/04/19 [facility] WITH BLEEDING/ KATHLEEN 19 Medical Center DIVERTICULITIS Active 10/04/19 [place] [id number] [facility] Sepsis Active 01/16/20 Finding 01/22/[address] [facility] [...] 01/22/[address] [facility] Weakness Active 04/06/20 Finding 01/22/[address] [facility] FALL/SOB Active 01/09/20 [place] [facility] Acute kidney 05/04/2019 [facility] failure with Medical tubular necrosis Center Severe sepsis with 05/04/2019 [facility] septic shock Medical Center Diverticulitis of 05/04/2019 [facility] large intestine Medical with perforation Center and abscess without bleeding Hypertensive heart 05/04/2019 [facility] and chronic kidney Medical disease with heart Center failure and stage 1 through stage 4 chronic kidney disease, or unspecified chronic kidney disease Hypo-osmolality 05/04/2019 [facility] and hyponatremia Medical Center 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 Center Malignant neoplasm 05/04/2019 [facility] right kidney, Medical except renal Center pelvis Hyperkalemia 05/04/2019 [facility] Personal history 05/04/2019 [facility] of nicotine Medical dependence Center Unspecified atrial 05/04/2019 [facility] fibrillation 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/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 [facility] 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 Medical Center Emphysema, 05/04/2019 [facility] unspecified Medical Center Heart failure, 05/04/2019 [facility] unspecified Medical Center Chronic kidney 05/04/2019 [facility] disease, stage 3 Medical Center Type 2 diabetes 05/04/2019 [facility] mellitus with Medical diabetic chronic Center kidney disease Unspecified 05/04/2019 [facility] hearing loss, Medical unspecified ear Center Hyperlipidemia, 05/04/2019 [facility] unspecified Medical Center Anemia in other 05/04/2019 [facility] chronic diseases Medical classified Center elsewhere Hypoxemia 05/04/2019 [facility] Medical [place] Type 2 diabetes 05/04/2019 [facility] mellitus with Medical hyperglycemia Center 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, medicaments Center and biological substances Adverse effect of 05/04/2019 [facility] diagnostic agents, Medical initial encounter Center Hypokalemia 05/04/2019 [facility] 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, Medical unspecified Center assisted use of 05/04/2019 [facility] oral hypoglycemic Medical drugs Center Atrial flutter Active Problem 05/04/2019 [facility] CHF (Confirmed) Resolved Problem 05/04/2019 [facility], [place] Cholecystectomy Active Problem 05/04/2019 [facility], [place] COPD Active Problem 05/04/2019 [facility] Current smoker Active Problem 05/04/2019 [facility] DM , type Resolved Problem 05/04/2019 [place] [id number](Confirmed) Medical [place],[facility] DM - Diabetes Active Problem 05/04/2019 [facility] mellitus Medical Center, [place] History of repair Active Problem 05/04/2019 [facility] of umbilical Medical hernia Center, [place] HLD (Confirmed) Resolved Problem 05/04/2019 [facility], [place] HTN (Confirmed) Resolved Problem 05/04/2019 [facility] HTN - Hypertension Active Problem 05/04/2019 [facility] [place] - Myocardial Active Problem 05/04/2019 [facility] infarction [facility], [place] Anemia Active Finding 01/22/[address] [facility] Bacteremia Active Finding 01/22/[address] [facility] Edema Active Finding 01/22/[address] [facility] Pericardial Active Finding 01/22/[address] [facility] PNEUMONIA, Active [facility] UNSPECIFIED ORGANISM DVTRCLI OF INTEST, Active [facility] PART UNSP, W/O Medical PERF O Center Medications Medication Details Route Status Patient Ordering Order Source Instructions Provider Date ferrous sulfate 325 mg=1 tab, Active [place] 325 mg oral PO, Daily, # 30 2019 Medical enteric coated tab, 2 Center tablet Refill(s), other Glipizide 5 MG 5 mg=1 tab, PO, Active [facility] Oral Tablet Daily, # 30 2019 Medical tab, 0 Center Refill(s), other Bicitra oral 30 mL, PO, BID, Active [facility] solution # 420 mL, 0 2019 Medical Refill(s), Center other ciprofloxacin 500 mg=1 tab, No Longer [place] 500 mg oral PO, [id number], X Active 2019 Medical tablet 8 day, # 8 tab, Center 0 Refill(s), other Metronidazole 500 mg=1 tab, No Longer [place] 500 MG Oral PO, TID, X 8 Active 2019 Medical Tablet day, # 24 tab, Center 0 Refill(s), other Ketotifen 0.25 1 drp, BOTH Active [facility] MG/ML Ophthalmic EYES, Q8H, 0 2019 Medical Solution Refill(s) Center Aspirin 81 MG 81 mg=1 tab, Active [facility] Enteric Coated PO, Daily, 0 2019 Medical Tablet Refill(s) Center Compazine 5 mg, 1 mL, No Longer [facility] Route: IV, Drug Active 2019 Medical form: INJ, Q6H, Center Dosing Weight 100.9, kg, PRN as needed for nausea/vomiting , Start date: 10/14/18 20:19:00 KILN PUSHER, Duration: 30 day, Stop date: 11/13/18 20:18:00 CSTNotes: (Same as: Compazine) Bicitra oral 30 mL, Route: Inactive [place] solution PO, Drug Form: 2019 Medical SOLN, Dosing Center Weight 100.9, kg, BID, Start date: 10/14/18 17:00:00 KILN PUSHER, Duration: 30 day, Stop date: 11/13/18 9:00:00 KILN PUSHER Bicitra oral 30 mL, Route: No Longer [place] solution PO, Drug Form: Active 2019 Medical SOLN, Dosing Center Weight 100.9, kg, BID, STAT, Start date: 10/14/18 14:51:00 KILN PUSHER, Duration: 30 day, Stop date: 11/13/18 9:00:00 CSTNotes: (Same As: Bicitra, Cytra-2) Sodium citrate-citric acid (500-334 mg/5 mL): 1 mL contains sodium 1 mEq/mL and bicarbonate 1 mEq/mL Symbicort 80/4.5 2 puff, Active [place] inhalation INHALATION, 2019 Medical aerosol with BID, # 6.9 gm, Center adapter 0 Refill(s) Albuterol 0.833 3 ml, Active [place] MG/ML / INHALATION, 2019 Medical Ipratropium QID, PRN as Center [place] 0.167 needed for MG/ML Inhalant shortness of Solution breath or [DuoNeb] wheezing, # 30 ea, 0 Refill(s) 24 HR Nicotine =1 patch, TOP, Active [place] 0.583 MG/HR Daily, # 14 2019 Medical Transdermal patch, 0 Center Patch [Nicoderm Refill(s) C-Q] lisinopril 10 mg 10 mg=1 tab, No Longer [place] oral tablet PO, Daily, # 30 Active 2019 Medical tab, 0 Center Refill(s) Ondansetron 4 MG 4 mg=1 tab, PO, Active [place] Oral Tablet Q4H, PRN 2019 Medical [Zofran] Nausea/Vomiting Center , # 30 tab, 0 Refill(s) Metolazone 5 MG 5 mg=1 tab, PO, No Longer [place] Oral Tablet Daily, # 30 Active 2019 Medical tab, 0 Center Refill(s) finasteride 5 mg 5 mg=1 tab, PO, Active [place] oral tablet Daily, # 30 2019 Medical tab, 0 Center Refill(s) sertraline 100 100 mg=1 tab, Active [place] mg oral tablet PO, Daily, # 30 2019 Medical tab, 0 Center Refill(s) Docusate Sodium 100 mg=1 cap, Active [place] 100 MG Oral PO, BID, # 60 2019 Medical Capsule [Colace] cap, 0 Center Refill(s) tamsulosin 0.4 0.4 mg=1 cap, Active [place] mg oral capsule PO, Daily, # 30 2019 Medical cap, 0 Center Refill(s) Hydralazine 10 mg=1 tab, No Longer [place] Hydrochloride 10 PO, BID, # 120 Active 2019 Medical MG Oral Tablet tab, 0 Center Refill(s) 12 HR ranolazine 500 mg=1 tab, No Longer [place] 500 MG Extended PO, BID, # 60 Active 2019 Medical Release Tablet tab, 0 Center [Ranexa] Refill(s) apixaban 5 MG 5 mg, PO, Q12H, No Longer [place] Oral Tablet 0 Refill(s) Active 2019 Medical [Eliquis] Center albuterol 90 2 puff, No Longer [place] mcg/inh INHALATION, Active 2019 Medical inhalation QID, # 17 gm, 0 Center aerosol Refill(s) Aspirin 325 MG 325 mg=1 tab, No Longer [place] Oral Tablet PO, Daily, # 90 Active 2019 Medical tab, 0 Center Refill(s) Furosemide 40 MG 40 mg=1 tab, No Longer [place] Oral Tablet PO, Daily, # 30 Active 2019 Medical [Lasix] tab, 0 Center Refill(s) Spironolactone 25 mg=1 tab, No Longer [place] 25 MG Oral PO, Daily, # Active 2019 Medical Tablet 180 tab, 0 Center [Aldactone] Refill(s) Alprazolam 0.5 0.5 mg=1 tab, Active [place] MG Oral Tablet PO, PRN as 2019 Medical [Xanax] needed for Center anxiety, 0 Refill(s) gabapentin 400 400 mg=1 cap, Active [place] MG Oral Capsule PO, BID, # 90 2019 Medical cap, 1 Center Refill(s) Glipizide 5 MG 5 mg=1 tab, PO, No Longer [place] Oral Tablet BID-Before Active 2019 Medical Meals, # 30 Center tab, 1 Refill(s) Acetaminophen 1 tab, PO, Q6H, No Longer [place] 325 MG / PRN Pain, # 60 Active 2019 Medical Hydrocodone tab, 0 Center Bitartrate 7.5 Refill(s) MG Oral Tablet [[place] 7.5/325] Calcium Chloride 1,000 mL, 1,000 Inactive [place] 0.0014 MEQ/ML / ml/hr, Infuse 2019 Medical Potassium Over: 1 hr, [place] Chloride 0.004 Route: IV, MEQ/ML / Sodium 1,000, Drug Chloride 0.103 form: INJ, MEQ/ML / Sodium ONCE, Priority: Lactate 0.028 STAT, Dosing MEQ/ML Weight 100.9 Injectable kg, Start date: Solution 10/14/18 7:25:00 KILN PUSHER, Stop date: 10/14/18 7:25:00 KILN PUSHER K-Dur 20 40 mEq, 2 tab, Inactive [place] Route: PO, Drug 2019 Medical form: ERTAB, Center ONCE, Start date: 10/14/18 6:23:00 KILN PUSHER, Stop date: 10/14/18 6:23:00 CSTNotes: (Same as: K-Dur 20) "Do Not Crush" Give with food and full glass of water For patients unable to swallow tablet, dissolve in one half glass of water. Allow about 2 minutes for the tablets to disintegrate. Stir before giving to prepare slurry and administer. Please exclude Patients with feeding tube less than 14 [place] (Dobhoff, J-tube etc) and pediatric and patients. potassium 40 mEq, 2 tab, Inactive [place] chloride 20 mEq Route: PO, Drug 2019 Medical oral tablet, form: ERTABCintia extended release BID, Dosing Weight 98.136, kg, Priority: STAT, Start date: 10/14/18 5:40:00 KILN PUSHER, Duration: 2 doses or times, Stop date: 10/14/18 9:00:00 KILN PUSHER Lactated Ringers 1,000 mL, Rate: No Longer [place] IV 1,000 mL 100 ml/hr, Active 2019 Medical Infuse over: 10 Center hr, Route: IV, Dosing Weight 98.136 kg, Total Volume: 1,000, Priority: NOW, Start date: 10/13/18 22:16:00 KILN PUSHER, Duration: 30 day, Stop date: 11/12/18 22:15:00 KILN PUSHER, 2.25, m2 Cipro 500 mg, 1 tab, No Longer [facility] Route: PO, Drug Active 2019 Medical form: TAB, Center [id number], Dosing Weight 98.136, kg, Priority: STAT, Start date: 10/13/18 17:53:00 KILN PUSHER, Duration: 7 day, Stop date: 10/19/18 17:53:00 KILN PUSHER, ABX Indication: Intra-abdominal InfectionNotes: May interfere with enteral feedings. Take 1 hour before or 2 hours after antacids, dairy products, & minerals. Take on an empty stomach. Flagyl 500 mg, 1 tab, No Longer [facility] Route: PO, Drug Active 2019 Medical form: TAB, Center [id number], Dosing Weight 98.136, kg, Priority: STAT, Start date: 10/13/18 17:06:00 KILN PUSHER, Duration: 7 day, Stop date: 10/20/18 9:06:00 KILN PUSHER, ABX Indication: Intra-abdominal InfectionNotes: Take with food/avoid alcohol. (Same as: Flagyl) Ciprofloxacin 500 mg, 1 tab, Inactive [facility] Route: PO, Drug 2019 Medical form: TAB, Center [id number], Dosing Weight 98.136, kg, Priority: STAT, Start date: 10/13/18 17:06:00 KILN PUSHER, Duration: 7 day, Stop date: 10/19/18 17:06:00 KILN PUSHER, ABX Indication: Intra-abdominal InfectionNotes: May interfere with enteral feedings. Take 1 hour before or 2 hours after antacids, dairy products, & minerals. Take on an empty stomach. Isolyte S PH-7.4 250 mL, 250 Inactive [facility] (Bolus) IV ml/hr, Infuse 2019 Medical Over: 1 hr, [place] Route: IV, 250, Drug form: SOLN, ONCE, Dosing Weight 98.136 kg, Start date: 10/13/18 13:18:00 KILN PUSHER, Stop date: 10/13/18 13:18:00 CSTNotes: (Same as: Isolyte S PH 7.4) potassium 20 mEq, 1 tab, Inactive [facility] chloride 20 mEq Route: PO, Drug 2019 Medical oral tablet, form: ERTAB, [place] extended release ONCE, Dosing Weight 98.136, kg, Priority: STAT, Start date: 10/13/18 9:30:00 KILN PUSHER, Stop date: 10/13/18 9:30:00 CSTNotes: (Same as: K-Dur 20) "Do Not Crush" Give with food and full glass of water For patients unable to swallow tablet, dissolve in one half glass of water. Allow about 2 minutes for the tablets to disintegrate. Stir before giving to prepare slurry and administer. Please exclude Patients with feeding tube less than 14 [place] (Dobhoff, J-tube etc) and pediatric and patients. potassium 20 mEq, 100 mL, Inactive [place] chloride Route: IVPB, 2018 Medical Drug form: INJ, Center Q2H, Start date: 10/13/18 6:00:00 KILN PUSHER, Duration: 2 doses or times, Stop date: 10/13/18 8:00:00 CSTNotes: (Same as: KCL) Infuse no faster than 10 mEq/hr if given peripherally. Potassium 10 mEq, Route: Inactive [place] Chloride IVPB, Q1H, 2019 Medical Dosing Weight Center 112, kg, Total Dose=20 meq, Start date: 10/13/18 6:00:00 KILN PUSHER, Duration: 4 doses or times, Stop date: 10/13/18 9:00:00 KILN PUSHER, Peripheral Line Isolyte S PH-7.4 500 mL, 250 Inactive [place] (Bolus) IV ml/hr, Infuse 2019 Medical Over: 2 hr, Center Route: IV, 500, Drug form: SOLN, ONCE, Dosing Weight 112 kg, Start date: 10/13/18 5:05:00 KILN PUSHER, Stop date: 10/13/18 5:05:00 CSTNotes: (Same as: Isolyte S PH 7.4) potassium 20 mEq, 100 mL, Inactive [place] chloride Route: IVPB, 2018 Medical Drug form: INJ, Center Q2H, Start date: 10/12/18 12:00:00 KILN PUSHER, Duration: 2 doses or times, Stop date: 10/12/18 14:00:00 CSTNotes: (Same as: KCL) Infuse no faster than 10 mEq/hr if given peripherally. Furosemide 20 MG 20 mg, 1 tab, No Longer [place] Oral Tablet Route: PO, Drug Active 2018 Medical [Lasix] form: TAB, Center Daily, Dosing Weight 112, kg, Start date: 10/12/18 11:00:00 KILN PUSHER, Duration: 30 day, Stop date: 11/11/18 9:00:00 CSTNotes: (Same as: Lasix) May cause GI upset. Give with food or milk. Potassium 40 mEq, Route: Inactive [place] Chloride IV, ONCE, 2018 Medical Dosing Weight Center 112, kg, Start date: 10/12/18 10:50:00 KILN PUSHER, Stop date: 10/12/18 10:50:00 KILN PUSHER potassium 20 mEq, 100 mL, Inactive [place] chloride Route: IVPB, 2018 Medical Drug form: INJ, Center Q2H, Start date: 10/11/18 6:00:00 KILN PUSHER, Duration: 2 doses or times, Stop date: 10/11/18 8:00:00 CSTNotes: (Same as: KCL) Infuse no faster than 10 mEq/hr if given peripherally. Magnesium 2 gm, 50 mL, Inactive [place] Sulfate Route: IVPB, 2018 Medical Drug form: INJ, Center ONCE, Dosing Weight 112, kg, Total dose=2 gm, Priority: STAT, Start date: 10/11/18 5:29:00 KILN PUSHER, Stop date: 10/11/18 5:29:00 CSTNotes: WASTE: F/P - Sink; E - Municipal Trash Bin Potassium 40 mEq, Route: Inactive [place] Chloride IV, ONCE, 2018 Medical Dosing Weight Center 112, kg, Start date: 10/11/18 5:00:00 KILN PUSHER, Stop date: 10/11/18 5:00:00 KILN PUSHER Refresh Eye Itch 1 drp, Route: No Longer [place] Relief BOTH EYES, Drug Active 2018 Medical Form: SOLN, Center Dosing Weight 112, kg, Q8H, Start date: 10/11/18 0:00:00 KILN PUSHER, Duration: 30 day, Stop date: 11/09/18 16:00:00 CSTNotes: (Same as:Zaditor) iodixanol 150 mL, Route: Inactive [place] IVP, Drug Form: 2019 Medical SOLN, Dosing Center Weight 112, kg, ONCALL, STAT, Start date: 10/10/18 19:36:00 KILN PUSHER, Duration: 1 doses or times, Dose=2.2ml/kg, Max [id number] -- "To be infused by Radiology Staff ONLY" Zofran 4 mg, 2 mL, No Longer [place] Route: IVP, Active 2018 Medical Drug form: INJ, Center Q8H, Dosing Weight 125, kg, PRN Nausea, Priority: NOW, Start date: 10/09/18 16:34:00 KILN PUSHER, Duration: 30 day, Stop date: 11/08/18 16:33:00 CSTNotes: (Same as: Zofran) MEDICATION WASTE Product Size: 4 mg Product Wasted: ___ mg Zofran 4 mg, 2 mL, Inactive [place] Route: IVP, 2018 Medical Drug form: INJ, Center Q8H, Dosing Weight 125, kg, PRN Nausea, Start date: 10/09/18 9:13:00 KILN PUSHER, Duration: 30 day, Stop date: 11/08/18 9:12:00 CSTNotes: (Same as: Zofran) MEDICATION WASTE Product Size: 4 mg Product Wasted: ___ mg Furosemide 40 MG 40 mg, 1 tab, No Longer [place] Oral Tablet Route: PO, Drug Active 2018 Medical [Lasix] form: TAB, BID, Center Dosing Weight 125, kg, Start date: 10/08/18 21:00:00 KILN PUSHER, Duration: 30 day, Stop date: 11/07/18 17:00:00 CSTNotes: (Same as: Lasix) May cause GI upset. Give with food or milk. Flomax 0.4 mg, 1 cap, No Longer [place] Route: PO, Drug Active 2018 Medical form: CAP, Center After Dinner, Dosing Weight 125, kg, Start date: 10/08/18 17:00:00 KILN PUSHER, Duration: 30 day, Stop date: 11/06/18 17:00:00 CSTNotes: (Same As: Flomax) "Do Not Crush" Furosemide 40 MG 40 mg, Route: Inactive [place] Oral Tablet PO, Drug form: 2019 Medical [Lasix] TAB, BID, Center Dosing Weight 125, kg, Start date: 10/08/18 9:00:00 KILN PUSHER, Duration: 30 day, Stop date: 11/06/18 17:00:00 KILN PUSHER Lasix 40 mg, 4 mL, Inactive [facility] Route: IVP, 2018 Medical Drug form: INJ, Center ONCE, Dosing Weight 125, kg, Priority: STAT, Start date: 10/08/18 6:44:00 KILN PUSHER, Stop date: 10/08/18 6:44:00 CSTNotes: (Same as: Lasix) MEDICATION WASTE Product Size: 40 mg Product Wasted: ___ mg olanzapine 5 mg, 1 tab, No Longer [facility] Route: PO, Drug Active 2018 Medical form: TAB, Center Bedtime, Dosing Weight 125, kg, Start date: 10/07/18 21:00:00 KILN PUSHER, Duration: 30 day, Stop date: 11/05/18 21:00:00 CSTNotes: (Same as: ZyPREXA) Melatonin 3 mg, 1 tab, No Longer [facility] Route: PO, Drug Active 2018 Medical form: TAB, Center Bedtime, Dosing Weight 125, kg, Start date: 10/07/18 21:00:00 KILN PUSHER, Duration: 30 day, Stop date: 11/05/18 21:00:00 CSTNotes: (Same as: Melatonin) Lasix 20 mg, 2 mL, Inactive [facility] Route: IVP, 2018 Medical Drug form: INJ, Center ONCE, Dosing Weight 125, kg, Start date: 10/07/18 18:45:00 KILN PUSHER, Stop date: 10/07/18 18:45:00 CSTNotes: (Same as: Lasix) budesonide-formo 2 inhalation, No Longer [facility] terol 160 Route: Active 2019 Medical mcg-4.5 mcg/inh INHALATION, Center inhalation Drug Form: aerosol with AERO/A, RBID, adapter Start date: 10/07/18 14:30:00 KILN PUSHER, Duration: 30 day, Stop date: 11/06/18 8:00:00 CSTNotes: (Same as: Symbicort) WASTE: Aerosol - Return to Pharmacy Zosyn 3.375 gm, No Longer [facility] Route: IV, Drug Active 2019 Medical form: PDR/INJ, Center [id number], Dosing Weight 125, kg, Start date: 10/07/18 14:00:00 KILN PUSHER, Duration: 30 day, Stop date: 11/06/18 8:00:00 KILN PUSHER, ABX Indication: Intra-abdominal InfectionNotes: (Same as: Zosyn) Dosing based on Piperacillin component MEDICATION WASTE Product Size: 3375 mg Product Wasted: ___ mg carvedilol 3.125 mg, 1 No Longer [facility] tab, Route: PO, Active 2019 Medical Drug form: TAB, Center Q12H, Dosing Weight 125, kg, Start date: 10/07/18 13:32:00 KILN PUSHER, Duration: 30 day, Stop date: 11/06/18 12:00:00 CSTNotes: Give with food. (Same As: Coreg) Advair Diskus 1 inhalation, Inactive [facility] 250 mcg-50 mcg Route: INHALER, 2019 Medical inhalation Drug Form: [place] powder AERO, Dosing Weight 125, kg, RBID, Start date: 10/07/18 12:49:00 KILN PUSHER, Duration: 30 day, Stop date: 11/06/18 8:00:00 KILN PUSHER Lasix 20 mg, 2 mL, Inactive [facility] Route: IVP, 2019 Medical Drug form: INJ, Center ONCE, Dosing Weight 125, kg, Start date: 10/07/18 12:45:00 KILN PUSHER, Stop date: 10/07/18 12:45:00 CSTNotes: (Same as: Lasix) Tylenol 1,000 mg, 2 No Longer [facility] tab, Route: PO, Active 2019 Medical Drug form: TAB, Center Q6H, Dosing Weight 125, kg, PRN Pain 4-6/Temp > 100.4 F, Start date: 10/07/18 12:44:00 KILN PUSHER, Duration: 30 day, Stop date: 11/06/18 12:43:00 CSTNotes: Max acetaminophen 4000 mg/day (4 gm/day). (Same as: Tylenol Extra Strength) Digoxin 0.125 MG 0.125 mg, 1 No Longer [facility] Oral Tablet tab, Route: PO, Active 2019 Medical Drug form: TAB, Center Q24H, Dosing Weight 125, kg, Start date: 10/07/18 9:00:00 KILN PUSHER, Duration: 30 day, Stop date: 11/05/18 9:00:00 CSTNotes: Take on an Empty Stomach (Same as: Lanoxin) Digoxin 250 microgram, Inactive [place] 1 mL, Route: 2019 Medical IV, Drug form: Center INJ, ONCE, Dosing Weight 125, kg, Start date: 10/06/18 21:00:00 KILN PUSHER, Stop date: 10/06/18 21:00:00 CSTNotes: (Same as: Lanoxin) Digoxin 250 microgram, Inactive [place] 1 mL, Route: 2019 Medical IV, Drug form: Center INJ, ONCE, Dosing Weight 125, kg, Start date: 10/06/18 13:00:00 KILN PUSHER, Stop date: 10/06/18 13:00:00 CSTNotes: (Same as: Lanoxin) Ciprofloxacin 400 mg, 200 mL, No Longer [place] Route: IVPB, Active 2018 Medical Drug form: INJ, Center [id number], Dosing Weight 125, kg, Start date: 10/06/18 10:00:00 KILN PUSHER, Duration: 7 day, Stop date: 10/12/18 10:00:00 KILN PUSHER, ABX Indication: Intra-abdominal InfectionNotes: Do not refrigerate Digoxin 500 microgram, Inactive [place] Route: IV, 2019 Medical ONCE, Dosing Center Weight 125, kg, Start date: 10/06/18 5:03:00 KILN PUSHER, Stop date: 10/06/18 5:03:00 KILN PUSHER Hydrocortisone 50 mg, 1 mL, No Longer [place] Route: IV, Drug Active 2018 Medical form: PDR/INJ, Center Q8H, Dosing Weight 125, kg, Start date: 10/06/18 0:00:00 KILN PUSHER, Duration: 7 day, Stop date: 10/12/18 16:00:00 CSTNotes: (Same as: Solu-CORTEF) heparin 7,500 unit, 1.5 No Longer [place] mL, Route: Active 2019 Medical SUB-Q, Drug Center form: INJ, Q8H, Dosing Weight 125, kg, Start date: 10/05/18 16:00:00 KILN PUSHER, Duration: 30 day, Stop date: 11/04/18 8:00:00 CSTNotes: porcine heparin 250 ML Albumin 25 gm, 500 mL, Inactive [place] Human, HALF-WAY 50 Route: IV, Drug 2019 Medical MG/ML Injection form: INJ, Center [Albuked] ONCE, Dosing Weight 125, kg, Start date: 10/05/18 14:46:00 KILN PUSHER, Stop date: 10/05/18 14:46:00 CSTNotes: LOT#: [id number]: ___ (Same as: Albuminar) "blood product derivative" WASTE: F/P - Red; E -Red MEDICATION WASTE Product Size: 25 gm Product Wasted: ___ gm Albuterol 0.833 3 mL, Route: No Longer [place] MG/ML / NEB, Drug Form: Active 2019 Medical Ipratropium SOLN, Dosing Center [place] 0.167 Weight 125, kg, MG/ML Inhalant RQID, Start Solution date: 10/05/18 [DuoNeb] 13:00:00 KILN PUSHER, Duration: 30 day, Stop date: 11/04/18 11:00:00 CSTNotes: (Same as: Duoneb) Aspirin 325 MG 325 mg, 1 tab, Inactive [place] Oral Tablet Route: PO, 2019 Medical Daily, Dosing Center Weight 125, kg, Start date: 10/05/18 9:00:00 KILN PUSHER, Duration: 30 day, Stop date: 11/03/18 9:00:00 KILN PUSHER Aspirin 81 mg, 1 tab, No Longer [facility] Route: PO, Drug Active 2019 Medical form: ECTAB, Center Daily, Dosing Weight 125, kg, Start date: 10/05/18 9:00:00 KILN PUSHER, Duration: 30 day, Stop date: 11/03/18 9:00:00 CSTNotes: Do not crush or chew. (Same As: Ecotrin) gabapentin 100 100 mg, 1 cap, No Longer [facility] MG Oral Capsule Route: PO, Drug Active 2019 Medical form: CAP, Q8H, Center Dosing Weight 125, kg, Start date: 10/05/18 8:00:00 KILN PUSHER, Duration: 30 day, Stop date: 11/04/18 0:00:00 CSTNotes: (Same as: Neurontin) heparin 5,000 unit, 1 Inactive [facility] mL, Route: 2019 Medical SUB-Q, Drug Center form: INJ, Q8H, Dosing Weight 125, kg, Start date: 10/05/18 8:00:00 KILN PUSHER, Duration: 30 day, Stop date: 11/04/18 0:00:00 CSTNotes: porcine heparin Metoprolol 5 mg, 5 mL, Inactive [facility] [facility] Route: IVP, 2019 Medical Drug form: INJ, Center Q6H, Dosing Weight 125, kg, PRN Arrhythmias, Start date: 10/05/18 7:05:00 KILN PUSHER, Duration: 30 day, Stop date: 11/04/18 7:04:00 CSTNotes: (Same as: Lopressor) Push over 2 minutes Tramadol 50 mg, 1 tab, No Longer [facility] Route: PO, Drug Active 2019 Medical form: TAB, Q6H, Center Dosing Weight 125, kg, PRN Pain Score 4-6, Start date: 10/05/18 6:44:00 KILN PUSHER, Duration: 30 day, Stop date: 11/04/18 6:43:00 CSTNotes: Not to exceed 400mg/day. (Same As: Ultram) Tramadol 100 mg, Route: Inactive [place] PO, Drug form: 2019 Medical TAB, Q6H, Center Dosing Weight 125, kg, PRN Pain Score 4-6, Start date: 10/05/18 6:43:00 KILN PUSHER, Duration: 30 day, Stop date: 11/04/18 6:42:00 KILN PUSHER Insulin regular 4 unit, 0.04 No Longer [facility] mL, Route: Active 2018 Medical SUB-Q, Drug Center form: SOLN, Sliding Scale, Dosing Weight 125, kg, PRN Blood Glucose Results, Start date: 10/05/18 6:30:00 KILN PUSHER, Duration: 30 day, Stop date: 11/04/18 6:29:00 CSTNotes: (Same as: Humulin R) Roll in palms of hands gently; Do not shake vigorously. "single patient use only" (Restricted to patients requiring a dose > 60 units) WASTE: F/P - Black; E - Municipal Trash Bin Stable for 28 days at room temperature Expires in days from D ate Dextrose 50% 12.5 gm, 25 mL, No Longer [place] Syringe Route: IVP, Active 2018 Medical Drug Form: INJ, Center Dosing Weight 125, kg, PRN, PRN Blood Glucose Results, Start date: 10/05/18 6:30:00 KILN PUSHER, Duration: 30 day, Stop date: 11/04/18 6:29:00 KILN PUSHER Glucagon 1 mg, Route: No Longer [place] IM, Drug form: Active 2018 Medical PDR/INJ, PRN, Center Dosing Weight 125, kg, PRN Blood Glucose Results, Start date: 10/05/18 6:30:00 KILN PUSHER, Duration: 30 day, Stop date: 11/04/18 6:29:00 KILN PUSHER Tylenol 1,000 mg, 2 No Longer [facility] tab, Route: PO, Active 2018 Medical Drug form: TAB, Center Q6H, Dosing Weight 125, kg, Start date: 10/05/18 6:00:00 KILN PUSHER, Duration: 30 day, Stop date: 11/04/18 0:00:00 CSTNotes: Max acetaminophen 4000 mg/day (4 gm/day). (Same as: Tylenol Extra Strength) Flagyl 500 mg, 100 mL, No Longer [facility] Route: IVPB, Active 2018 Medical Drug form: INJ, Center [id number], Dosing Weight 125, kg, Start date: 10/05/18 5:00:00 KILN PUSHER, Duration: 7 day, Stop date: 10/11/18 21:00:00 KILN PUSHER, ABX Indication: Intra-abdominal InfectionNotes: (Same as: Flagyl) Avoid alcohol. Ciprofloxacin 400 mg, 200 mL, Inactive [place] Route: IVPB, 2018 Medical Drug form: INJ, Center [id number], Dosing Weight 125, kg, Start date: 10/05/18 5:00:00 KILN PUSHER, Duration: 7 day, Stop date: 10/11/18 17:00:00 KILN PUSHER, ABX Indication: Intra-abdominal InfectionNotes: Do not refrigerate Albuterol 0.833 3 ml, Route: No Longer [place] MG/ML / NEB, Drug Form: Active 2019 Medical Ipratropium SOLN, Dosing Center [place] 0.167 Weight 125, kg, MG/ML Inhalant PRN, PRN Solution Respiratory [DuoNeb] Pathway, Start date: 10/05/18 4:53:00 KILN PUSHER, Duration: 30 day, Stop date: 11/04/18 4:52:00 CSTNotes: (Same as: Duoneb) Metoprolol 5 mg, 5 mL, Inactive [place] Route: IVP, 2019 Medical Drug form: INJ, Center ONCE, Dosing Weight 125, kg, Start date: 10/05/18 4:53:00 KILN PUSHER, Stop date: 10/05/18 4:53:00 CSTNotes: (Same as: Lopressor) Push over 2 minutes Isolyte S PH 7.4 1,000 mL, Rate: No Longer [place] 1,000 mL 50 ml/hr, Active 2019 Medical Infuse over: 20 Center hr, Route: IV, Dosing Weight 113.636 kg, Total Volume: 1,000, Start date: 10/05/18 3:52:00 KILN PUSHER, Duration: 30 day, Stop date: 11/04/18 3:51:00 KILN PUSHER, 2.42, a5Vldga: (Same as: Isolyte S PH 7.4) Norepinephrine 8 mg, 8 mL, No Longer [place] Rate: Titrate, Active 2019 Medical Start Dose: 0.1 Center microgram/kg/mi n, Titration: 0.05 microgram/kg/mi n every 2 - 5 minutes, Goal(s): MAP >=65 mmHg, Max Dose: 1 microgram/kg/mi n, Route: IV, Dosing Weight 113.636 kg, Total Volume: 250, Start date: 10/05/18 0:30...Notes: Not for direct administration - DILUTE. Protect from light. (Same as:Levophed). Administer by either central venous catheter or peripherally-in serted central catheter (PICC) line. Isolyte S PH-7.4 2,000 mL, Inactive Ruben (Bolus) IV Route: IV, Drug 2019 Medical form: SOLN, Center ONCE, Dosing Weight 113.636 kg, Start date: 10/05/18 0:01:00 KILN PUSHER, Stop date: 10/05/18 0:01:00 CSTNotes: (Same as: Isolyte S PH 7.4) Saline Flush 10 mL, Route: No Longer [facility] 0.9% IVP, Drug Form: Active 2019 Medical INJ, Dosing Center Weight 113.636, kg, PRN, PRN Line Flush, Start date: 10/04/18 23:54:00 KILN PUSHER, Duration: 30 day, Stop date: 11/03/18 23:53:00 CSTNotes: (Same as: BD Posiflush) cefepime 1 gm, Route: No Longer [facility] IVPB, ONCE, Active 2019 Medical Dosing Weight Center 113.636, kg, Priority: STAT, Start date: 10/04/18 23:52:00 KILN PUSHER, Stop date: 10/04/18 23:52:00 KILN PUSHER, ABX Indication: Bacteremia Zosyn 3.375 gm, No Longer [facility] Route: IVPB, Active 2019 Medical ONCE, Dosing Center Weight 113.636, kg, Priority: STAT, Start date: 10/04/18 23:52:00 KILN PUSHER, Stop date: 10/04/18 23:52:00 KILN PUSHER, ABX Indication: Bacteremia Meropenem EVERY EIGHT Active [facility] HOURS 2018 [facility] [place] Spironolactone DAILY Active . 2017 [facility] [place] Finasteride DAILY Active . 2018 [facility] [place] Glipizide TWICE DAILY Active . 2018 [facility] [place] Ipratropium/Albu Q6H PRN For Active St. terol Sulfate Wheezing 2018 [facility] [place] Furosemide DAILY Active . 2017 [facility] [place] Magnesium Oxide AT BEDTIME Active . 2018 [facility] [place] Gabapentin TWICE DAILY Active . 2017 [facility] [place] Lisinopril DAILY Active . 2017 [facility] [place] Ranolazine TWICE DAILY Active 04/19/ [facility] [place] Sertraline Hcl DAILY Active [facility] 2018 [facility] [place] Tamsulosin Hcl AT BEDTIME Active [facility] 2018 [facility] [place] Zinc DAILY Active [facility] 2018 [facility] [place] Alprazolam AT BEDTIME Active [facility] 2018 [facility] [place] Apixaban TWICE DAILY Active [facility] 2018 [facility] [place] Carvedilol TWICE DAILY Active [facility] 2018 [facility] [place] Hydrocodone THREE TIMES A Active [facility] St. 7.5/Apap 325 DAY 2018 [facility] [place] Ranolazine DAILY Active [facility] 2018 [facility] [place] Spironolactone DAILY Active [facility] 2018 [facility] [place] Cefdinir TWICE DAILY Active [facility] 2017 [facility] [place] Albuterol EVERY 4 HOURS Active [facility] St[facility] Sulfate NEEDED PRN 2017 [facility] Of Breath Ipratropium/Albu TWICE DAILY Active [facility] terol Sulfate 2017 [facility] [place] Hydralazine TWICE DAILY Active [facility] 2017 [facility] [place] Budesonide/Formo TWICE DAILY Active [facility] St[facility] terol Fumarate 2017 [facility] [place] Nitroglycerin Q5MX3 PRN For Active Sug[facility] Chest Pain 2017 [facility] [place] Cefdinir TWICE DAILY Active [facility] 2017 [facility] [place] Lisinopril DAILY Active [facility] 2017 [facility] [place] Metolazone DAILY Active [facility] 2016 [facility] [place] Ciprofloxacin TWICE DAILY Active [facility] Hcl 2016 [facility] [place] Hydralazine THREE TIMES A Active [facility] St[facility] DAY 2016 [facility] [place] Sotalol Hcl DAILY Active [facility] 2016 [facility] [place] Tamsulosin Hcl DAILY Active [facility] 2016 [facility] [place] Diltiazem Tab Q6H Active . 2016 [facility] [place] Carvedilol DAILY Active . 2016 [facility] [place] Furosemide DAILY Active . 2015 [facility] [place] Minoxidil TWICE DAILY Active . 2016 [facility] [place] carvedilol 12.5 [...] patch, Route: Inactive TOP, Drug form: 2015 ERFILM, Daily, Start date: 01/11/16 9:00:00 CDT, Duration: 30 day, Stop date: 02/09/16 9:00:00 CDTNotes: Remove old patch before application of new patch. WASTE: F/P - P Waste Black; E - P Waste Black Levemir 12 unit, 0.12 No Longer mL, Route: Active 2015 SUB-Q, Drug form: INJ, Q12H, Dosing Weight 106.506, kg, Start date: 01/10/16 21:00:00 CDT, Duration: 30 day, Stop date: 02/09/16 9:00:00 CDTNotes: Same as Levemir Do not hold insulin without contacting prescriber WASTE: F/P - Black; E - Municipal Trash Bin "single patient use only" Nicotine 21 mg, 1 patch, No Longer Route: TOP, Active 2015 [facility] Drug form: ERFILM, Daily, Dosing Weight 106.506, kg, Start date: 01/10/16 16:00:00 CDT, Duration: 30 day, Stop date: 02/09/16 9:00:00 CDTNotes: (Same as: Habitrol) "Remove old patch before application of new patch" WASTE: F/P - P Waste Black; E - P Waste Black Omeprazole 20 mg, Route: No Longer PO, Daily, Active 2015 [facility] Dosing Weight 107.273, kg, Start date: 01/10/16 9:00:00 CDT, Duration: 30 day, Stop date: 02/08/16 9:00:00 CDT Lisinopril 20 mg, 1 tab, Inactive Route: PO, Drug 2015 [facility] form: TAB, Daily, Dosing Weight 107.273, kg, Start date: 01/10/16 9:00:00 CDT, Duration: 30 day, Stop date: 02/08/16 9:00:00 CDTNotes: (Same as: Prinivil, Zestril) Coreg 12.5 mg, 1 tab, No Longer Route: PO, Drug 2015 [facility] form: TAB, Q12H, Dosing Weight 106.506, kg, Priority: NOW, Start date: 01/10/16 8:06:00 CDT, Duration: 30 day, Stop date: 02/08/16 21:00:00 CDTNotes: Give with food. (Same As: Coreg) Rocephin 1 gm, Route: No Longer IVPB, [id number], 2015 [facility] Dosing Weight 107.273, kg, Start date: 01/10/16 3:00:00 CDT, Duration: 30 day, Stop date: 02/08/16 3:00:00 CDTNotes: (Same As: Rocephin). Use with 100 mL NS and infuse over 30 min MEDICATION WASTE Product Size: 1000 mg Product Wasted: ___ mg Levofloxacin 750 mg, 150 mL, No Longer Route: IVPB, Active 2015 [facility] Drug form: SOLN, [id number], Dosing Weight 107.273, kg, Start date: 01/10/16 3:00:00 CDT, Duration: 30 day, Stop date: 02/08/16 3:00:00 CDTNotes: (Same as:Levaquin) atorvastatin 40 mg, 1 tab, No Longer 04 Route: PO, Drug Active 2015 [facility] form: TAB, Bedtime, Dosing Weight 107.273, kg, Start date: 01/09/16 21:00:00 CDT, Duration: 30 day, Stop date: 02/07/16 21:00:00 CDTNotes: (Same as: Lipitor) tamsulosin 0.4 mg, 1 cap, No Longer Route: PO, Drug Active 2015 [facility] form: CAP, Daily, Dosing Weight 107.273, kg, Start date: 01/09/16 21:00:00 CDT, Duration: 30 day, Stop date: 02/07/16 21:00:00 CDTNotes: (Same As: Flomax) "Do Not Crush" Sotalol 80 mg, 1 tab, No Longer Hydrochloride AF Route: PO, Drug Active 2015 [facility] form: TAB, BID, Dosing Weight 107.273, kg, Start date: 01/09/16 21:00:00 CDT, Duration: 30 day, Stop date: 02/08/16 9:00:00 CDTNotes: (Same As: Betapace) Sertraline 100 mg, 2 tab, No Longer Route: PO, Drug Active 2015 [facility] form: TAB, Bedtime, Dosing Weight 107.273, kg, Start date: 01/09/16 21:00:00 CDT, Duration: 30 day, Stop date: 02/07/16 21:00:00 CDTNotes: (Same as: Zoloft) Ranexa 500 mg, 1 tab, No Longer Route: PO, Drug Active 2015 [facility] form: TAB, BID, Dosing Weight 107.273, kg, Start date: 01/09/16 21:00:00 CDT, Duration: 30 day, Stop date: 02/08/16 9:00:00 CDTNotes: Same as Ranexa "Do Not Crush" Metoprolol 5 mg, 5 mL, Inactive Route: IV, Drug 2015 [facility] form: INJ, ONCE, Dosing Weight 106.506, kg, Start date: 01/09/16 16:56:00 CDT, Stop date: 01/09/16 16:56:00 CDTNotes: (Same as: Lopressor) Push over 2 minutes Protonix 40 mg, 1 tab, No Longer Route: PO, Drug Active 2015 [facility] form: ECTAB, Before Dinner, Start date: 01/09/16 16:30:00 CDT, Duration: 30 day, Stop date: 02/07/16 16:30:00 CDTNotes: Tablet should not be chewed or crushed. (Same as: Protonix) Furosemide 40 MG 40 mg, 1 tab, No Longer Oral Tablet Route: PO, Drug Active 2015 [facility] form: TAB, BID Diuretic, Dosing Weight 107.273, kg, Start date: 01/09/16 16:00:00 CDT, Duration: 30 day, Stop date: 02/08/16 8:00:00 CDTNotes: (Same as: Lasix) May cause GI upset. Give with food or milk. Solu-Medrol 40 mg, 1 mL, No Longer Route: IVP, Active 2015 [facility] Drug form: INJ, Q8H, Dosing Weight 107.273, kg, Start date: 01/09/16 16:00:00 CDT, Duration: 30 day, Stop date: 02/08/16 8:00:00 CDTNotes: (Same as:Solu-MEDROL, A-Methapred) gabapentin 300 300 mg, 1 cap, No Longer MG Oral Capsule Route: PO, Drug Active 2015 [facility] form: CAP, TID, Dosing Weight 107.273, kg, Start date: 01/09/16 14:00:00 CDT, Duration: 30 day, Stop date: 02/08/16 6:00:00 CDTNotes: (Same as: Neurontin) Aspirin 81 MG 81 mg, 1 tab, No Longer Enteric Coated Route: PO, Drug Active 2015 [facility] Tablet form: ECTAB, Daily, Dosing Weight 107.273, kg, Start date: 01/09/16 14:00:00 CDT, Duration: 30 day, Stop date: 02/08/16 9:00:00 CDTNotes: Do not crush or chew. (Same As: Ecotrin) Insulin, Aspart, 2 unit, 0.02 No Longer Human mL, Route: Active 2015 [facility] SUB-Q, Drug form: SOLN, Bedtime, Dosing Weight [...] No Longer Syringe Route: IVP, Active 2015 [facility] Drug Form: INJ, Dosing Weight 107.273, kg, PRN, PRN Blood Glucose Results, Start date: 01/09/16 9:17:00 CDT, Duration: 30 day, Stop date: 02/08/16 9:16:00 CDT Glucagon 1 mg, Route: No Longer IM, Drug form: Active 2015 [facility] PDR/INJ, PRN, Dosing Weight 107.273, kg, PRN Blood Glucose Results, Start date: 01/09/16 9:17:00 CDT, Duration: 30 day, Stop date: 02/08/16 9:16:00 CDT Albuterol 0.833 3 ml, Route: No Longer MG/ML / NEB, Drug Form: Active 2015 [facility] Ipratropium SOLN, Dosing [place] 0.167 Weight 107.273, MG/ML Inhalant kg, PRN, PRN Solution Respiratory [DuoNeb] Protocol, Start date: 01/09/16 9:11:00 CDT, Duration: 30 day, Stop date: 02/08/16 9:10:00 CDTNotes: (Same as: Duoneb) Enoxaparin 40 mg, 0.4 mL, No Longer Route: SUB-Q, Active 2015 [facility] Drug form: INJ, [id number], Dosing Weight 107.273, kg, Start date: 01/09/16 9:00:00 CDT, Duration: 30 day, Stop date: 02/07/16 9:00:00 CDTNotes: (Same as: Lovenox) Alprazolam 0.5 1 mg=2 tab, PO, No Longer MG Oral Tablet Bedtime, 0 Active 2015 [facility] Refill(s) Furosemide 40 MG 40 mg=1 tab, Active Oral Tablet PO, BID, 0 2015 [facility] Refill(s) minoxidil 2.5 mg 2.5 mg=1 tab, No Longer oral tablet PO, BID, 0 Active 2015 [facility] Refill(s) Potassium 20 mEq=1 tab, No Longer Chloride 20 MEQ PO, BID, 0 Active 2015 [facility] Extended Release Refill(s) Tablet atorvastatin 40 40 mg=1 tab, Active mg oral tablet PO, Bedtime, 0 2015 [facility] Refill(s) tamsulosin 0.4 0.4 mg=1 cap, Active mg oral capsule PO, Daily, 0 2015 [facility] Refill(s) sertraline 100 100 mg=1 tab, Active mg oral tablet PO, Bedtime, 0 2015 [facility] Refill(s) promethazine 25 25 mg=1 tab, No Longer mg oral tablet PO, Q8H, PRN Active 2015 [facility] Nausea, 0 Refill(s) carvedilol 25 mg 25 mg=1 tab, No Longer oral tablet PO, Daily, 0 Active 2015 [facility] Refill(s) Omeprazole 20 mg, PO, Active Daily, 0 2015 [facility] Refill(s) gabapentin 300 300 mg=1 cap, Active MG Oral Capsule PO, TID, 0 2015 [facility] Refill(s) glimepiride 2 mg 2 mg=1 tab, PO, No Longer oral tablet BID, 0 Active 2015 [facility] Refill(s) niacin 500 mg 1,000 mg=2 tab, Active oral tablet PO, Bedtime, 0 2015 Refill(s) lisinopril 20 mg 20 mg=1 tab, Active oral tablet PO, Daily, 0 2015 Refill(s) Aspirin 81 MG 81 mg=1 tab, Active Enteric Coated PO, Daily, # 90 2015 [facility] Tablet tab, 3 Refill(s) Sotalol 80 mg=1 tab, Active Hydrochloride AF PO, BID, 0 2015 [facility] 80 mg oral Refill(s) tablet Ranexa 500 mg, PO, Active BID, 0 2015 [facility] Refill(s) Glipizide 10 MG 5 mg=0.5 tab, No Longer Oral Tablet PO, BID, 0 Active 2015 [facility] Refill(s) dextromethorphan 10 mL, Route: No Longer -guaiFENesin 10 PO, Drug Form: Active 2015 [facility] mg-100 mg/5 mL LIQ, Dosing oral liquid Weight 107.273, kg, Q4H, PRN Cough, Start date: 01/09/16 4:24:00 CDT, Duration: 30 day, Stop date: 02/08/16 4:23:00 CDTNotes: (dextromethorph an-guaifenesin 10-100/5 ml LIQ) (Same as: Robitussin-DM) Ondansetron 4 mg, 2 mL, No Longer Route: IVP, Active 2015 [facility] Drug form: INJ, Q6H, Dosing Weight 107.273, kg, PRN Nausea & Vomiting, Start date: 01/09/16 4:24:00 CDT, Duration: 30 day, Stop date: 02/08/16 4:23:00 CDTNotes: (Same as: Zofran) MEDICATION WASTE Product Size: 4 mg Product Wasted: ___ mg Acetaminophen 650 mg, 2 tab, No Longer Route: PO, Drug Active 2015 [facility] form: TAB, Q4H, Dosing Weight 107.273, kg, PRN Pain Score 1-3, For fever > 100.4. Not to exceed 4 grams in 24 hours, Start date: 01/09/16 4:24:00 CDT, Duration: 30 day, Stop date: 02/08/16 4:23:00 CDTNotes: Do not exceed 4 gm/day. (Same as: Tylenol) Levofloxacin 750 mg, 150 mL, Inactive Route: IV, Drug 2015 [facility] form: SOLN, ONCE, Dosing Weight 107.273, kg, Start date: 01/09/16 2:39:00 CDT, Stop date: 01/09/16 2:39:00 CDTNotes: (Same as:Levaquin) Ceftriaxone 1 gm, Route: Inactive IVPB, Drug 2015 [facility] form: PDR/INJ, ONCE, Dosing Weight 107.273, kg, Priority: STAT, Start date: 01/09/16 2:39:00 CDT, Stop date: 01/09/16 2:39:00 CDTNotes: (Same As: Rocephin). Use with 100 mL NS and infuse over 30 min MEDICATION WASTE Product Size: 1000 mg Product Wasted: ___ mg Albuterol 0.833 3 mL, Route: Inactive MG/ML / INHALATION, 2015 [facility] Ipratropium Drug Form: [place] 0.167 SOLN, Dosing MG/ML Inhalant Weight 107.273, Solution kg, ONCE, Start [DuoNeb] date: 01/09/16 1:51:00 CDT, Stop date: 01/09/16 1:51:00 CDTNotes: (Same as: Duoneb) Tylenol 1,000 mg, 2 Inactive tab, Route: PO, 2015 [facility] Drug form: TAB, ONCE, Dosing Weight 107.273, kg, Priority: STAT, Start date: 01/09/16 1:51:00 CDT, Stop date: 01/09/16 1:51:00 CDTNotes: Max acetaminophen 4000 mg/day (4 gm/day). (Same as: Tylenol Extra Strength) Saline Flush 10 mL, Route: No Longer 0.9% IVP, Drug Form: Active 2015 [facility] INJ, Dosing Weight 107.273, kg, PRN, PRN [...] [place] Dil[place] Assertion Drug Active [facility] [place] metFORMIN Assertion Drug Active [facility] [place] Immunizations No Data Provided for This Section Results Order Name Results Value Reference Date Interpretation Comments Source Range CHEM PANEL Magnesium 2.1 1.8 - 2.4 10/15 [facility] CHEM PANEL Phosphorus 2.7 2.5 - 4.5 10/15 [facility] CHEM PANEL eGFR 25 10/15 Result Comment: The Medical eGFR is Center calculated using the CKD-EPI formula. In most young, healthy individuals the eGFR will be >90 mL/min/1.73m2 . The eGFR declines with age. An eGFR of 60-89 may be normal in some populations, particularly the elderly, for whom the CKD-EPI formula has not been extensively validated. Use of the eGFR is not recommended in the following populations:< br/>
Kristin viduals with unstable creatinine concentration s, including patients and those with serious co-morbid conditions.<b r/>
Patie nts with extremes in muscle mass or diet.

The data above are obtained from the National Kidney Disease Education Program (NKDEP) which additionally recommends that when the eGFR is used in patients with extremes of body mass index for purposes of drug dosing, the eGFR should be multiplied by the estimated BMI. CHEM PANEL Potassium 3.4 3.5 - 5.1 10/15 [facility] CHEM PANEL Sodium Lvl 140 135 - 145 10/15 [facility]2018 [facility] CHEM PANEL CO2 21 24 - 32 10/[address] CHEM PANEL Chloride Lvl 108 95 - 109 10/[address] CHEM PANEL Calcium Lvl 8.1 8.5 - 10.5 10/[address] CHEM PANEL AGAP 14.4 10.0 - 10/15 [facility] [place] 20.0 [facility] CHEM PANEL BUN 46 7 - 22 10/15 [facility] CHEM PANEL Creatinine 2.43 0.50 - 10/15 [place] Lvl 1.40 /2018 [facility] CHEM PANEL Glucose Lvl 130 70 - 99 10/15 /2018 [facility] HEMATOLOGY Segs 67.3 45.0 - 10/15 [place] 75.0 2019 [facility] HEMATOLOGY Lymphocytes 17.8 20.0 - 10/15 [place] 40.0 2019 [facility] HEMATOLOGY Monocytes 9.5 2.0 - 12.0 10/15 [facility] HEMATOLOGY Monocytes # 0.8 0.0 - 0.8 10/15 [facility] HEMATOLOGY Basophils # 0.1 0.0 - 0.2 10/15 [facility] HEMATOLOGY Eosinophils 0.3 0.0 - 0.5 10/15 [facility] HEMATOLOGY Eosinophils 4.0 0.0 - 4.0 10/15 [facility] HEMATOLOGY Basophils 1.4 0.0 - 1.0 10/15 [facility] HEMATOLOGY Lymphocytes 1.4 1.0 - 5.5 10/15 # [facility] HEMATOLOGY Neutrophils 5.4 1.5 - 8.1 10/15 [facility] # [facility] HEMATOLOGY Microcyte 1+ None Seen 10/15 [facility] *ABN* [facility] (10/15/18 5:07 AM) [place] HEMATOLOGY RBC 2.96 4.70 - 10/15 [place] 6.10 [facility] HEMATOLOGY Hct 22.6 42.0 - 10/15 [place] 54.0 2019 [facility] HEMATOLOGY Hgb 7.5 14.0 - 10/15 [place] 18.0 2019 [facility] HEMATOLOGY RDW 17.9 11.5 - 10/15 [place] 14.5 2019 [facility] HEMATOLOGY MCV 76.3 80.0 - 10/15 [place] 94.0 2019 [facility] HEMATOLOGY MCHC 33.1 32.0 - 10/15 [place] 36.0 2019 [facility] HEMATOLOGY MCH 25.2 27.0 - 10/15 [place] 31.0 2019 [facility] HEMATOLOGY MPV 8.2 7.4 - 10.4 10/15 [facility] HEMATOLOGY Platelet 371 133 - 450 10/15 [facility] HEMATOLOGY WBC 8.1 3.7 - 10.4 10/[address] CHEM PANEL eGFR 14 10/14 Result Comment: The Medical eGFR is Center calculated using the CKD-EPI formula. In most young, healthy individuals the eGFR will be >90 mL/min/1.73m2 . The eGFR declines with age. An eGFR of 60-89 may be normal in some populations, particularly the elderly, for whom the CKD-EPI formula has not been extensively validated. Use of the eGFR is not recommended in the following populations:< br/>
Kristin viduals with unstable creatinine concentration s, including patients and those with serious co-morbid conditions.<b r/>
Patie nts with extremes in muscle mass or diet.

The data above are obtained from the National Kidney Disease Education Program (NKDEP) which additionally recommends that when the eGFR is used in patients with extremes of body mass index for purposes of drug dosing, the eGFR should be multiplied by the estimated BMI. CHEM PANEL AGAP 15.7 10.0 - 10/14 [facility] 20.0 [facility] CHEM PANEL Calcium Lvl 8.4 8.5 - 10.5 10/[address] CHEM PANEL BUN 57 7 - 22 10/[address] CHEM PANEL Glucose Lvl 152 70 - 99 10/[address] CHEM PANEL Sodium Lvl 136 135 - 145 10/[address] CHEM PANEL Potassium 3.7 3.5 - 5.1 10/14 [facility] CHEM PANEL Creatinine 3.89 0.50 - 10/14 [facility] Lvl 1.40 [facility] CHEM PANEL CO2 21 24 - 32 10/[address] CHEM PANEL Chloride Lvl 103 95 - 109 10/[address] TOXICOLOGY Digoxin Lvl 0.7 0.8 - 2.0 10/[address] Culture: No Growth 10/14 [facility] Urine [address] URINE AND UA Sq Epi None Seen 10/14 [facility] STOOL [address] URINE AND UA RBC 15 0 - 2 10/14 [facility] STOOL [address] URINE AND UA Bacteria Few /HPF None Seen 10/14 [facility] STOOL /HPF [facility] URINE AND UA Mucus Few /LPF None Seen 10/14 [facility] STOOL /LPF /2018 [facility] URINE AND UA Hyal Cast 53 0 - 2 10/14 [facility] URINE AND UA 2.0 0.1 - 1.0 10/14 [facility] Urobilinogen [facility] URINE AND UA Nitrite Negative Negative 10/14 [facility] (10/14/18 11:43 AM) /[address] [place] [address] URINE AND UA Leuk Est Moderate Negative 10/14 [facility] *ABN* [facility] (10/14/18 11:43 AM) [place] URINE AND UA WBC 21 0 - 5 10/14 [facility] [address] [place] [address] URINE AND UA Protein 70 mg/dL Negative 10/14 [facility] mg/dL [facility] URINE AND UA Glucose Negative Negative 10/14 [facility] mg/dL mg/dL [facility] URINE AND UA Ketones Trace Negative 10/14 [facility] mg/dL mg/dL [facility] URINE AND UA Spec Grav 1.019 <=1.030 10/14 [facility] [address] [place] [address] URINE AND UA pH 5.5 5.0 - 8.0 10/14 [facility] [address] [place] [address] URINE AND UA Bili Negative Negative 10/14 [facility] *NA* [facility] (10/14/18 11:43 AM) [place] URINE AND UA Blood Moderate Negative 10/14 [facility] *ABN* [facility] (10/14/18 11:43 AM) [place] URINE AND UA Color Yellow Yellow 10/14 [facility] *NA* [facility] (10/14/18 11:43 AM) [place] URINE AND UA Turbidity Slight Clear 10/14 [facility] *ABN* [facility] (10/14/18 11:43 AM) Center URINE CHEM U Urea 382 10/14 [facility] [address] [place] [address] URINE CHEM U Creatinine 289.00 10/14 [facility] URINE CHEM U Chloride 10 10/14 [facility] URINE CHEM U Potassium 44.6 10/14 [facility] URINE CHEM U Sodium 27 10/[address] CHEM PANEL Magnesium 2.6 1.8 - 2.4 10/14 [facility] Lvl [facility] CHEM PANEL Phosphorus 3.8 2.5 - 4.5 10/14 [facility] CHEM PANEL eGFR 13 10/14 Result Comment: The Medical eGFR is Center calculated using the CKD-EPI formula. In most young, healthy individuals the eGFR will be >90 mL/min/1.73m2 . The eGFR declines with age. An eGFR of 60-89 may be normal in some populations, particularly the elderly, for whom the CKD-EPI formula has not been extensively validated. Use of the eGFR is not recommended in the following populations:< br/>
Kristin viduals with unstable creatinine concentration s, including patients and those with serious co-morbid conditions.<b r/>
Patie nts with extremes in muscle mass or diet.

The data above are obtained from the National Kidney Disease Education Program (NKDEP) which additionally recommends that when the eGFR is used in patients with extremes of body mass index for purposes of drug dosing, the eGFR should be multiplied by the estimated BMI. CHEM PANEL Potassium 3.1 3.5 - 5.1 10/14 [facility] CHEM PANEL Sodium Lvl 135 135 - 145 10/[address] CHEM PANEL Glucose Lvl 145 70 - 99 10/[address] CHEM PANEL BUN 55 7 - 22 10/[address] CHEM PANEL Creatinine 4.28 0.50 - 10/14 [facility] 1.40 [facility] CHEM PANEL Chloride Lvl 103 95 - 109 10/[address] CHEM PANEL CO2 19 24 - 32 10/[address] CHEM PANEL Calcium Lvl 8.4 8.5 - 10.5 10/[address] CHEM PANEL AGAP 16.1 10.0 - 10/14 [facility] 20.0 [facility] HEMATOLOGY Microcyte 1+ None Seen 10/14 [facility] *ABN* [facility] (10/14/18 4:03 AM) [place] HEMATOLOGY Basophils # 0.1 0.0 - 0.2 10/[address] HEMATOLOGY Neutrophils 7.8 1.5 - 8.1 10/14 [facility] # /2018 [facility] HEMATOLOGY Basophils 1.2 0.0 - 1.0 10/[address] HEMATOLOGY Eosinophils 3.1 0.0 - 4.0 10/[address] HEMATOLOGY Monocytes 8.8 2.0 - 12.0 10/14 [facility] HEMATOLOGY Lymphocytes 18.9 20.0 - 10/14 [place] 40.0 /2019 [facility] HEMATOLOGY Segs 68.0 45.0 - 10/14 [place] 75.0 /2019 [facility] HEMATOLOGY Eosinophils 0.4 0.0 - 0.5 10/14 [place] # /2019 [facility] HEMATOLOGY Monocytes # 1.0 0.0 - 0.8 10/14 /2018 [facility] HEMATOLOGY Lymphocytes 2.2 1.0 - 5.5 10/14 [place] /2019 [facility] HEMATOLOGY MPV 8.2 7.4 - 10.4 10/14 /2018 [facility] HEMATOLOGY Platelet 381 133 - 450 10/14 2018 [facility] HEMATOLOGY RDW 17.5 11.5 - 10/14 [place] 14.5 /2019 [facility] HEMATOLOGY MCH 24.1 27.0 - 10/14 [place] 31.0 2019 [facility] HEMATOLOGY MCV 75.9 80.0 - 10/14 [place] 94.0 2019 [facility] HEMATOLOGY Hgb 8.2 14.0 - 10/14 [place] 18.0 2019 [facility] HEMATOLOGY Hct 25.9 42.0 - 10/14 [place] 54.0 2019 [facility] HEMATOLOGY WBC 11.5 3.7 - 10.4 10/14 [facility] HEMATOLOGY RBC 3.41 4.70 - 10/14 [place] 6.10 2019 [facility] HEMATOLOGY MCHC 31.8 32.0 - 10/14 [place] 36.0 2019 [facility] URINE CHEM U Creatinine 193.00 10/13 [facility] URINE CHEM U Sodium 47 10/13 [facility] URINE CHEM U Urea 270 10/13 [facility] CARDIAC BNP 414 <=100 10/13 [facility] ENZYMES pg/mL /2018 [facility] CARDIAC proBNP 6803 0 - 450 10/13 [facility] ENZYMES [facility] HEMATOLOGY Monocytes # 1.0 0.0 - 0.8 10/13 [facility] /2018 [facility] HEMATOLOGY Eosinophils 0.3 0.0 - 0.5 10/13 [facility] # /2019 [facility] HEMATOLOGY Lymphocytes 2.6 1.0 - 5.5 10/13 [facility] /2019 [facility] HEMATOLOGY Basophils 1.1 0.0 - 1.0 10/13 [facility] HEMATOLOGY Neutrophils 6.5 1.5 - 8.1 10/13 [facility] # /2018 [facility] HEMATOLOGY Basophils # 0.1 0.0 - 0.2 10/13 [facility]2018 [facility] HEMATOLOGY Microcyte 1+ None Seen 10/13 [facility] *ABN* /2018 [facility] (10/13/18 12:40 AM) [place] HEMATOLOGY Eosinophils 2.7 0.0 - 4.0 10/13 [facility] HEMATOLOGY Monocytes 9.4 2.0 - 12.0 10/13 [facility]2018 [facility] HEMATOLOGY Lymphocytes 24.9 20.0 - 10/13 [place] 40.0 2019 [facility] HEMATOLOGY Segs 61.9 45.0 - 10/13 [place] 75.0 2019 [facility] HEMATOLOGY Hct 27.8 42.0 - 10/13 [facility] 54.0 2019 [facility] HEMATOLOGY MCV 75.7 80.0 - 10/13 [place] 94.0 2019 [facility] HEMATOLOGY RDW 17.3 11.5 - 10/13 [place] 14.5 /2019 [facility] HEMATOLOGY MCHC 32.5 32.0 - 10/13 [place] 36.0 2019 [facility] HEMATOLOGY MPV 8.1 7.4 - 10.4 10/13 [facility]2018 [facility] HEMATOLOGY Platelet 418 133 - 450 10/13 [facility]2018 [facility] HEMATOLOGY MCH 24.6 27.0 - 10/13 [place] 31.0 /2019 [facility] HEMATOLOGY Hgb 9.0 14.0 - 10/13 [place] 18.0 2019 [facility] HEMATOLOGY RBC 3.67 4.70 - 10/13 [place] 6.10 2019 [facility] HEMATOLOGY WBC 10.5 3.7 - 10.4 10/[address] CHEM PANEL Phosphorus 3.9 2.5 - 4.5 10/[address] CHEM PANEL Magnesium 2.3 1.8 - 2.4 10/12 [facility] Lvl [facility] CARDIAC BNP 220 <=100 10/11 [facility] ENZYMES pg/mL [facility] CARDIAC proBNP 4030 0 - 450 10/11 [facility] ENZYMES /[address] [place] [address] PARATHYROI Ca Ion WB 1.08 1.05 - 10/11 [place] D PROFILE 1.25 [facility] PARATHYROI Ca Norm WB 1.08 1.05 - 10/11 [facility] [place] D PROFILE 1. [facility] CARDIAC BNP 220 <=100 10/10 [facility] ENZYMES pg/mL [facility] CARDIAC proBNP 5585 0 - 450 10/10 [facility] ENZYMES [facility] TOXICOLOGY Digoxin Lvl 1.4 0.8 - 2.0 10/08 [facility]2018 [facility] TOXICOLOGY Digoxin Lvl 1.6 0.8 - 2.0 10/07 [facility] HEMATOLOGY Anti-Xa Low >4.00 10/05 Result [facility] Comment: Medical Heparin "Significant Center Findings called to Vernell Chavarria at 10/05/2018 13:43 by Read Back OK." CHEM PANEL Osmolality 291 280 - 300 10/05 [facility] HEMATOLOGY Estimated % 0.0 0.0 - 7.5 10/05 [facility] Lysis [facility] HEMATOLOGY K-time Rapid 0.8 0.6 - 2.3 10/05 [facility]2018 [facility] HEMATOLOGY R-time Rapid 0.7 0.4 - 0.7 10/05 [facility] HEMATOLOGY G-value 13.3 5.0 - 11.6 10/05 [facility] [address] [place] [address] HEMATOLOGY Max 73 52 - 71 10/05 [facility] HEMATOLOGY Angle Rapid 79 64 - 80 10/05 [facility] HEMATOLOGY ACT (TEG) 113 86 - 118 10/05 [facility] [address] [place] [address] HEMATOLOGY [place] Point 0.6 10/05 [facility] [address] [place] [address] TUMOR AFP 2.4 0.0 - 11.0 10/05 [facility] MARKERS [facility] TUMOR CEA 1.1 0.0 - 3.0 10/05 [facility] MARKERS [facility] URINE CHEM U Osmolality 247 300 - 800 10/05 [facility] URINE CHEM U Potassium 9.4 10/05 [facility]2018 [facility] URINE CHEM U Sodium 57 10/05 [facility] URINE CHEM U Chloride 40 10/05 [facility]2018 [facility] URINE CHEM U Creatinine 27.80 10/[address] BLOOD BANK RBC product Product available 10/05 [place] RESULTS (10/05/18 9:51 AM) /2018 [facility] BLOOD BANK Antibody Negative 10/05 [facility] RESULTS Scrn (10/05/18 5:20 AM) [facility] BLOOD BANK ABO/Rh O POS 10/05 [facility] RESULTS [facility] CHEM PANEL Lactic Acid 1.4 0.5 - 2.2 10/05 [facility] Lvl [facility] URINE AND UA Sq Epi Rare /LPF Few /LPF 10/05 [facility] STOOL [facility] URINE AND UA RBC 0-2 /HPF 0 - 2 10/05 [facility] STOOL [facility] URINE AND UA WBC 3-5 /HPF None Seen 10/05 [facility] STOOL /HPF /2018 [facility] URINE AND UA Bacteria Moderate None Seen 10/05 [facility] STOOL /HPF /HPF /2018 [facility] URINE AND UA Hyal Cast 0-2 0 - 2 10/05 [facility] (10/05/18 3:12 AM) [facility] URINE AND UA Spec Grav 1.015 <=1.030 10/05 [facility] URINE AND UA pH 6.0 5.0 - 8.0 10/05 [facility] URINE AND UA Color Yellow Yellow 10/05 [facility] *NA* /2018 [facility] (10/05/18 3:12 AM) [place] URINE AND UA Protein Negative Negative 10/05 [facility] (10/05/18 3:12 AM) [facility] URINE AND UA Bili Negative Negative 10/05 [facility] *NA* [facility] (10/05/18 3:12 AM) [place] URINE AND UA Blood Negative Negative 10/05 [facility] (10/05/18 3:12 AM) [facility] URINE AND UA Turbidity Slight Cloudy Clear 10/05 [facility] (10/05/18 3:12 AM) [facility] URINE AND UA 0.2 0.1 - 1.0 10/05 [facility] Urobilinogen /2018 [facility] URINE AND UA Glucose Negative Negative 10/05 [facility] (10/05/18 3:12 AM) [facility] URINE AND UA Ketones Negative Negative 10/05 [facility] *NA* [facility] (10/05/18 3:12 AM) [place] URINE AND UA Nitrite Negative Negative 10/05 [facility] (10/05/18 3:12 AM) [facility] URINE AND UA Leuk Est Trace Negative 10/05 [facility] *ABN* [facility] (10/05/18 3:12 AM) [place] BLOOD BANK RBC product Product available 10/05 [facility] RESULTS (10/05/18 3:08 AM) /2018 [facility] BLOOD BANK Antibody Negative 10/05 [facility] RESULTS Scrn (10/05/18 12:22 AM) [facility] BLOOD BANK ABO/Rh O POS 10/05 [facility] RESULTS /2018 [facility] CARDIAC Troponin-I 0.03 0.00 - 10/05 [facility] ENZYMES 0.40 [facility] CARDIAC Total CK 205 12 - 191 10/05 [facility] ENZYMES /2018 [facility] CHEM PANEL Procalcitoni 1.62 0.00 - 10/05 [facility] n Lvl 0.10 [facility] CHEM PANEL ALT 20 0 - 65 10/05 [facility] CHEM PANEL AST 20 0 - 37 10/05 [facility] CHEM PANEL Alk Phos 84 39 - 136 10/05 [facility] CHEM PANEL Bili Total 0.3 0.2 - 1.3 10/05 [facility] CHEM PANEL Total 6.3 6.4 - 8.4 10/05 [facility] Protein [facility] CHEM PANEL Albumin Lvl 3.0 3.5 - 5.0 10/05 [facility] [address] [place] [address] CHEM PANEL B/C Ratio 18 6 - 25 10/05 [facility] CHEM PANEL A/G Ratio 0.9 0.7 - 1.6 10/05 [facility] CHEM PANEL Globulin 3.3 2.7 - 4.2 10/05 [facility] CHEM PANEL Lactic Acid 1.4 0.5 - 2.2 10/05 [facility] Lvl /2018 [facility] HEMATOLOGY Plt Morph Normal 10/05 [facility] (10/04/18 11:58 PM) /2018 [facility] HEMATOLOGY PTT 52.7 22.9 - 10/05 [place] 35.8 [facility] HEMATOLOGY INR 1.60 0.85 - 10/05 [place] 1.17 [facility] HEMATOLOGY PT 18.7 12.0 - 10/05 [place] 14.7 [facility] Laboratory Bedside 130 65 - 120 01/[address] [facility] [facility] Glucose [facility] [place] [facility] White Blood 12.1 4.3 - 10.9 01/[address] [facility] [facility] Count /2017 [facility] [place] Red Cell 16.8 12.1 - 01/[address] [facility] [address] [facility] Distribution 15.2 /2017 [facility] Width [place] [facility] Red Blood 3.63 4.33 - 01/[address] [facility] [address] Studies Count 5.43 /2017 [facility] [place] [facility] Platelet 379 152 - 406 01/[address] [facility] [address] Studies Count /2017 [facility] Neutrophils 64.0 41.7 - 01/[address] [facility] [address] Studies % 73.7 /2017 [facility] [place] Monocytes % 6.6 3.3 - 12.3 01/[address] [facility] [address] Studies /2017 [facility] [place] [facility] Mean 8.8 7.6 - 11.3 01/[address] [facility] [address] Studies Platelet /2017 [facility] Volume [place] [facility] Mean 82.6 80 - 100 01/[address] [facility] [address] Studies Corpuscular /2017 [facility] Volume [place] [facility] Mean 32.7 32.0 - 01/[address] [facility] [address] Studies Corpuscular 36.0 [facility] Hemoglobin [place] [facility] Mean 27.0 27.0 - 01/[address] [facility] [address] Studies Corpuscular 35.0 [facility] Hemoglobin [place] [facility] Lymphocytes 25.5 15.3 - 01/[address] [facility] [address] Studies % 44.8 /2017 [facility] [place] [facility] Hemoglobin 9.8 13.6 - 01/[address] [facility] [address] Studies 17.9 [facility] Hematocrit 30.0 39.6 - 01/[address] [facility] [address] Studies 49.0 /2017 [facility] [place] Eosinophils 3.1 0 - 4.4 01/[address] [facility] [address] Studies % /2017 [facility] [place] Basophils % 0.8 0 - 1.3 01/[address] [facility] [address] Studies /2017 [facility] [place] Absolute 7.7 1.8 - 8.0 01/[address] [facility] [address] Studies Neutrophil /2017 [facility] [place] [facility] Absolute 0.8 0.1 - 1.3 01/[address] [facility] [address] Studies Monocytes /2017 [facility] (CBC) [place] [facility] Absolute 3.1 0.7 - 4.9 01/[address] [facility] [address] Studies Lymphocytes /2017 [facility] (CBC) [place] [facility] Absolute 0.4 0 - 0.5 01/[address] [facility] [address] Studies Eosinophils /2017 [facility] (CBC) [place] [facility] Absolute 0.1 0 - 0.5 01/[address] [facility] [address] Studies Basophils /2017 [facility] (CBC) [place] [facility] Sodium Level 141 135 - 145 01/21 St[facility] Studies /2017 [facility] [place] [facility] Potassium 3.9 3.6 - 5.0 01/[address] [facility] [address] Studies Level /2018 [facility] [place] Magnesium 2.0 1.8 - 2.5 01/[address] [facility] [address] Studies Level /2017 [facility] [place] Glucose 108 65 - 120 01/[address] [facility] [address] Studies Level /2018 [facility] [place] Estimat 74 90 01/21 [facility]. Studies Glomerular /2017 [facility] Filtration [place] Rate [facility] Creatinine 0.99 0.61 - 01/21 [facility]. Studies . [facility] Chloride 107 101 - 111 01/21 [facility]. Studies Level /2017 [facility] [place] [facility] Carbon 31 21 - 31 01/21 [facility]. Studies Dioxide /2017 [facility] - Level [place] [facility] Calcium 8.6 8.5 - 10.5 01/21 [facility]. Studies Level /2018 [facility] [place] [facility] Blood Urea 17 6 - 20 01/21 [facility]. Studies Nitrogen /2017 [facility] [place] [facility] Total 0.3 0.3 - 1.2 01/20 [facility]. Studies Bilirubin /2017 [facility] [place] [facility] Serum Total 6.1 6.0 - 8.3 01/20 [facility]. Studies Protein /2017 [facility] [place] [facility] Globulin 3.3 2.3 - 3.5 01/[address] [facility] [address] Studies /2017 [facility] [place] [facility] Aspartate 18 10 - 42 01/20 [facility]. Studies Amino Transf /2017 [facility] (AST/SGOT) [place] [facility] Alkaline 76 42 - 121 01/20 [facility]. Studies Phosphatase /2017 [facility] [place] [facility] Albumin/Glob 0.8 1.1 - 1.8 01/20 [facility]. Studies ulin Ratio /2017 [facility] [place] [facility] Albumin 2.8 3.2 - 5.5 01/20 [facility]. Studies /2018 [facility] [place] [facility] Alanine 23 10 - 60 01/20 [facility]. Studies Aminotransfe /2017 [employer] bart Burt (ALT/SGPT) [employer] Escherichia Escherichi 01/17 [facility] gy Studies Coli a Coli /2017 [facility] [place] [facility] Procalcitoni 1.61 01/16 [facility] Studies n /2017 [facility] [place] [facility] Urine Urine 01/14 [facility] Studies Leukocyte Leukocyte /2017 [facility] Esterase Esterase [place] [facility] Urine pH 5.5 01/14 [facility]. Studies /2017 [facility] [place] [facility] Urine Total Urine 01/14 [facility]. Studies Protein Total /2017 [facility] Protein [place] [facility] Urine 1.020 01/14 [facility]. Studies Specific /2017 [facility] [place]ascade [place] [facility] Urine Urine 01/14 [facility] Studies Nitrite Nitrite /2017 [facility] [place] [facility] Urine Urine 01/14 [facility] Studies Ketones Ketones /2017 [facility] [place] [facility] Urine Urine 01/14 [facility] Studies Glucose Glucose /2017 [facility] [place] [facility] Urine Blood Urine 01/14 [facility] Studies Blood [facility] [place] [facility] Blood Blood 01/14 [facility] Studies Morphology Morphology /2017 [facility] Comment Comment [place] [facility] Direct 0.3 0 - 0.2 01/14 [facility] Studies Bilirubin /2017 [facility] [place] [facility] Prothrombin 32.8 9.5 - 12.5 01/14 [facility]. Studies Time /2017 [facility] [place] [facility] INR 2.75 01/14 [facility] Studies Internationa /2017 [facility] l Normalized [place] Ratio Laboratory Activated 52.2 24.3 - 01/14 [facility]. Studies Partial 36.9 [facility] Thromboplast [place] Time Laboratory Lactic Acid 9.3 4.5 - 19.8 01/14 [facility]. Studies Level /2017 [facility] [place] [facility] Creatine 1.0 0.3 - 4.0 01/14 [facility] Studies Kinase MB /2017 [facility] [place] [facility] B-Type 507 01/14 [facility]. Studies Natriuretic /2017 [facility] Peptide [place] [facility] Creatine 95 22 - 269 01/14 [facility]. Studies Kinase /2017 [facility] [place] [facility] Rapid <0.03 01/14 [facility] Studies Troponin I /2017 [facility] [place] [facility] Lipase 13 22 - 51 01/14 [facility]. Studies /2017 [facility] [place] CHEM PANEL BUN 34 7 - 22 01/10 [facility] CHEM PANEL Glucose Lvl 294 70 - 99 01/10 [facility] CHEM PANEL eGFR 61 01/10 Result Comment: [facility] eGFR is calculated using the CKD-EPI formula. In most young, healthy individuals the eGFR will be >90 mL/min/1.73m2 . The eGFR declines with age. An eGFR of 60-89 may be normal in some populations, particularly the elderly, for whom the CKD-EPI formula has not been extensively validated. Use of the eGFR is not recommended in the following populations:< br/>
Kristin viduals with unstable creatinine concentration s, including patients and those with serious co-morbid conditions.<b r/>
Patie nts with extremes in muscle mass or diet.

The data above are obtained from the National Kidney Disease Education Program (NKDEP) which additionally recommends that when the eGFR is used in patients with extremes of body mass index for purposes of drug dosing, the eGFR should be multiplied by the estimated BMI. CHEM PANEL Calcium Lvl 9.0 8.5 - 10.5 01/10 [facility] CHEM PANEL AGAP 11.7 10.0 - 01/10 20.0 [facility] CHEM PANEL Sodium Lvl 138 135 - 145 01/10 [facility] CHEM PANEL Creatinine 1.18 0.50 - 01/10 Lvl 1.40 /2015 [facility] CHEM PANEL Chloride Lvl 105 95 - 109 01/10 [facility] CHEM PANEL Potassium 3.7 3.5 - 5.1 01/10 Lvl /2015 [facility] CHEM PANEL CO2 25 24 - 32 01/10 [facility] HEMATOLOGY MPV 8.8 7.4 - 10.4 01/10 [facility] HEMATOLOGY RDW 18.1 11.5 - 01/10 MH 14.5 /2015 [facility] HEMATOLOGY MCH 26.2 27.0 - 01/10 31.0 /2015 [facility] HEMATOLOGY MCHC 32.6 32.0 - 01/10 36.0 /2015 [facility] HEMATOLOGY Platelet 331 133 - 450 01/10 [facility] HEMATOLOGY Hct 32.4 42.0 - 01/10 MH 54.0 /2016 [facility] HEMATOLOGY Hgb 10.6 14.0 - 01/10 18.0 [facility] HEMATOLOGY MCV 80.4 80.0 - 01/10 MH 94.0 /2015 [facility] HEMATOLOGY RBC 4.03 4.70 - 01/10 MH 6.10 [facility] HEMATOLOGY WBC 22.3 3.7 - 10.4 01/10 /2015 [facility] HEMATOLOGY MCH 26.4 27.0 - 04 MH 31.0 /2015 [facility] HEMATOLOGY MCHC 32.5 32.0 - 01/09 MH 36.0 /2016 [facility] HEMATOLOGY MCV 81.2 80.0 - 01/09 MH 94.0 /2015 [facility] HEMATOLOGY Platelet 270 133 - 450 01/09 MH /2015 [facility] HEMATOLOGY MPV 8.3 7.4 - 10.4 01/09 [facility] HEMATOLOGY RDW 18.1 11.5 - 01/09 MH 14.5 /2015 [facility] HEMATOLOGY WBC 15.8 3.7 - 10.4 01/09 [facility] HEMATOLOGY RBC 4.13 4.70 - 01/09 MH 6.10 [facility] HEMATOLOGY Hct 33.5 42.0 - 01/09 MH 54.0 /2015 [facility] HEMATOLOGY Hgb 10.9 14.0 - 01/09 MH 18.0 [facility] ELECTROLYT AGAP 9.9 10.0 - 01/09 ES 20.0 [facility] ELECTROLYT eGFR 65 01/09 Result MH Comment: [facility] eGFR is calculated using the CKD-EPI formula. In most young, healthy individuals the eGFR will be >90 mL/min/1.73m2 . The eGFR declines with age. An eGFR of 60-89 may be normal in some populations, particularly the elderly, for whom the CKD-EPI formula has not been extensively validated. Use of the eGFR is not recommended in the following populations:< br/>
Kristin viduals with unstable creatinine concentration s, including patients and those with serious co-morbid conditions.<b r/>
Patie nts with extremes in muscle mass or diet.

The data above are obtained from the National Kidney Disease Education Program (NKDEP) which additionally recommends that when the eGFR is used in patients with extremes of body mass index for purposes of drug dosing, the eGFR should be multiplied by the estimated BMI. ELECTROLYT Calcium Lvl 8.6 8.5 - 10.5 01/09 MH ES /2015 [facility] ELECTROLYT Glucose Lvl 209 70 - 99 01/09 MH ES [facility] ELECTROLYT BUN 23 7 - 22 01/09 ES /2015 [facility] ELECTROLYT Creatinine 1.12 0.50 - 01/09 ES Lvl 1.40 /2015 [facility] ELECTROLYT Sodium Lvl 139 135 - 145 01/09 ES /2015 [facility] ELECTROLYT Potassium 3.9 3.5 - 5.1 01/09 ES Lvl /2015 [facility] ELECTROLYT Chloride Lvl 107 95 - 109 01/09 ES /2015 [facility] ELECTROLYT CO2 26 24 - 32 01/09 ES /2015 [facility] VIRAL - Influ B Negative Negative 01/09 SEROLOGY (01/10/16 5:04 AM) [facility] VIRAL - Influ A Negative Negative 01/09 SEROLOGY (01/10/16 5:04 AM) [facility] CHEM PANEL eGFR 56 01/08 Result Comment: [facility] eGFR is calculated using the CKD-EPI formula. In most young, healthy individuals the eGFR will be >90 mL/min/1.73m2 . The eGFR declines with age. An eGFR of 60-89 may be normal in some populations, particularly the elderly, for whom the CKD-EPI formula has not been extensively validated. Use of the eGFR is not recommended in the following populations:< br/>
Kristin viduals with unstable creatinine concentration s, including patients and those with serious co-morbid conditions.<b r/>
Patie nts with extremes in muscle mass or diet.

The data above are obtained from the National Kidney Disease Education Program (NKDEP) which additionally recommends that when the eGFR is used in patients with extremes of body mass index for purposes of drug dosing, the eGFR should be multiplied by the estimated BMI. CHEM PANEL Creatinine 1.28 0.50 - 01/08 Lvl 1.40 [facility] HEMATOLOGY PTT 49.7 22.9 - 01/08 MH 35.8 /2016 [facility] HEMATOLOGY Platelet 242 133 - 450 01/08 [facility] CHEM PANEL Procalcitoni 0.32 0.00 - 01/08 n Lvl 0.10 [facility] VIRAL - Influ A Negative Negative 01/08 SEROLOGY (01/09/16 4:21 AM) [facility] VIRAL - Influ B Negative Negative 01/08 SEROLOGY (01/09/16 4:21 AM) [facility] CHEM PANEL Lactic Acid 0.9 0.5 - 2.2 01/08 Lvl /2015 [facility] CARDIAC Troponin-I 0.07 0.00 - 01/08 ENZYMES 0.40 /2015 [facility] CARDIAC CK MB 0.9 0.5 - 3.6 01/08 ENZYMES /2016 [facility] CARDIAC Total CK 122 12 - 191 01/08 ENZYMES /2015 [facility] CARDIAC BNP 217 <=100 01/08 ENZYMES pg/mL /2015 [facility] CARDIAC CK MB Index 0.7 0.0 - 2.5 01/08 ENZYMES /2015 [facility] CHEM PANEL Glucose Lvl 114 70 - 99 01/08 [facility] CHEM PANEL BUN 20 7 - 22 01/08 [facility] CHEM PANEL Potassium 4.2 3.5 - 5.1 01/08 Lvl /2015 [facility] CHEM PANEL Sodium Lvl 137 135 - 145 01/08 [facility] CHEM PANEL A/G Ratio 0.8 0.7 - 1.6 01/08 [facility] CHEM PANEL Globulin 4.3 2.0 - 4.0 01/08 [facility] CHEM PANEL B/C Ratio 15 6 - 25 01/08 [facility] CHEM PANEL Bili Total 0.9 0.2 - 1.3 01/08 [facility] CHEM PANEL Alk Phos 106 39 - 136 01/08 [facility] CHEM PANEL AST 9 0 - 37 01/08 [facility] CHEM PANEL ALT 26 0 - 65 01/08 [facility] CHEM PANEL AGAP 11.2 10.0 - 01/08 20.0 /2015 [facility] CHEM PANEL Calcium Lvl 9.0 8.5 - 10.5 01/08 [facility] CHEM PANEL CO2 27 24 - 32 01/08 [facility] CHEM PANEL Chloride Lvl 103 95 - 109 01/08 [facility] CHEM PANEL Total 7.7 6.4 - 8.4 01/08 [facility] CHEM PANEL Albumin Lvl 3.4 3.5 - 5.0 01/08 [facility] HEMATOLOGY MCV 81.3 80.0 - 01/08 94.0 /2015 [facility] HEMATOLOGY MCHC 32.4 32.0 - 01/08 36.0 /2015 [facility] HEMATOLOGY MCH 26.4 27.0 - 01/08 31.0 [facility] HEMATOLOGY RDW 18.3 11.5 - 01/08 MH 14.5 /2015 [facility] MPV 8.2 7.4 - 10.4 01/08 [facility] RBC 4.33 4.70 - 01/08 MH 6.10 /2015 [facility] WBC 19.3 3.7 - 10.4 01/08 [facility] Hgb 11.4 14.0 - 01/08 MH 18.0 /2015 [facility] Hct 35.2 42.0 - 01/08 MH 54.0 /2015 [facility] HEMATOLOGY Basophils 0.4 0.0 - 1.0 01/08 [facility] HEMATOLOGY Eosinophils 0.1 0.0 - 4.0 01/08 [facility] Lymphocytes 1.7 1.0 - 5.5 01/08 # /2015 [facility] HEMATOLOGY Segs-Bands # 15.2 1.5 - 8.1 01/08 [facility] Monocytes # 2.3 0.0 - 0.8 01/08 [facility] Basophils # 0.1 0.0 - 0.2 01/08 [facility] Segs 78.5 45.0 - 01/08 75.0 [facility] Lymphocytes 9.1 20.0 - 01/08 40.0 [facility] Monocytes 11.9 2.0 - 12.0 01/08 [facility] Pathology Reports No Data Provided for This Section Diagnostic Reports Report Value Date Source Retroperitoneal Complete EXAM: RENAL 10/13/2018 [facility] DATE: 10/13/2018 9:29 [facility] Center INDICATION: - eval bilateral kidneys, obstruction? ADDITIONAL [...] this limitation, no hydronephrosis is identified bilaterally. Abdomen/Pelvis w IV EXAM: CT ABDOMEN AND PELVIS WITH CONTRAST 10/10/2018 [facility] contrast CT DATE: 10/10/2018 14:27 [facility] Center INDICATION: - abdominal distention ADDITIONAL INFORMATION: Patient [...] in segment 6 (image 37 of series 5 ) that remains hyperdense on delayed imaging to [...] obstruction. 5. Small bilateral pleural effusions. Abdomen acute series w EXAM: XR ABDOMEN 2 VIEWS 10/10/2018 [facility] chest 1 view DX EXAM: CHEST 1 VIEW Center DATE: 10/10/2018 9:04 KILN PUSHER INDICATION: - concern for ileus ADDITIONAL INFORMATION: [...] sigmoid thickening. 2. Tubes as above. Chest 1view DX EXAM: XR CHEST 1 VIEW 10/10/2018 [facility] DATE: 10/10/2018 3:00 [facility] Center INDICATION: SOB - SOB COMPARISON: Semierect AP [...] in the left lung base. Abdomen AP DX EXAM: XR ABDOMEN 1 VIEW 10/09/2018 [facility] DATE: 10/09/2018 20:22 [facility] Center INDICATION: - not eating diet, distended ADDITIONAL [...] a paucity of small bowel gas. Fecal [place]: Moderate. Bones: No acute abnormalities seen. . [...] 2. Tube(s) and/or catheter(s) as above. Chest 1view DX EXAM: XR CHEST 1 VIEW 10/08/2018 [facility] DATE: 10/08/2018 3:00 [facility] Center INDICATION: - pulmonary edema. FINDINGS: Comparison is made to October 07. Cardiomediastinal silhouette is prominent but unchanged. There is smooth narrowing of the mid trachea. Consider PA and lateral views. Small bilateral pleural effusions. There are patchy alveolar opacities in the lungs with a lower lobe predilection which could be due to edema or pneumonia. IMPRESSION:: No significant change. Chest 1view DX EXAM: XR CHEST 1 VIEW 10/07/2018 [facility] DATE: 10/07/2018 6:18 [facility] Center INDICATION: - crackles on exam. FINDINGS: Comparison is made to October 05. Cardiomediastinal silhouette is unchanged. There are alveolar opacities developing in the lungs with a perihilar and lower lobe predilection. Small left pleural effusion. IMPRESSION: 1. Developing bilateral airspace opacities with a lower lobe predilection could be due to edema or pneumonia. 2. Small left pleural effusion. Chest 1view DX EXAM: XR CHEST 1 VIEW 10/04/2018 [facility] DATE: 10/04/2018 23:54 [facility] Center INDICATION: - Undifferentiated Sepsis COMPARISON: Chest x-ray [...] Left basilar subsegmental atelectasis. 2. Borderline cardiomegaly. Chest 1view DX Clinical Indication: Pneumonia 01/11/2016 [facility] Comparison: 01/10/2016 FINDINGS: AP chest radiograph was obtained. HEART: Mild [...] when compared to the prior study. SL: SHERRON Chest 1view DX Study: Chest 1view DX 01/10/2016 3:00 AM CDT 01/10/2016 [facility] Ordering Physician: Artemio Lopez MD Clinical Indication: Pneumonia Comparison: 01/09/2016 FINDINGS: Heart size upper limit of normal [...] limit of normal or mildly enlarged. SL: [id number] Brain wo contrast CT Clinical Indication: Altered level of consciousness 07/2016 [facility] Comparison: None TECHNIQUE: CT images were obtained from the foramen magnum to the vertex without the use of intravenous contrast on a multidetector CT. Coronal and sagittal reconstructions were obtained. CT radiation dose DLP: 1103.88 mGy-cm FINDINGS: [...] cyst left maxillary sinus. SL: AMY-PC Chest 1view DX Clinical Indication: Chest pain HX: pt called EMS x 6 in the last 3 days for falls. Tonight EMS called out d/t pt falling while trying to ambulate with walker. EMS reports pt was tachypneic with RA sats in the 80s upon their arrival. 01/09/2016 [facility] Comparison: 02/09/2012 FINDINGS: AP chest radiograph was obtained. HEART: Mild [...] vascular congestion versus nonspecific airspace infiltrate. SL: AMY-CODEY Consultation Notes No Data Provided for This Section Discharge Summaries No Data Provided for This Section History and Physicals No Data Provided for This Section Vital Signs Vital Sign Value Date Comments Source Systolic (mm Hg) 107 10/15/2018 [facility] Diastolic (mm Hg) 66 10/15/2018 [facility] Respitory Rate 18 10/15/2018 [facility] Heart Rate 67 10/15/2018 [facility] Temperature Oral (F) 97.6 F 10/15/2018 [facility] Respitory Rate 16 10/15/2018 [facility] Heart Rate 70 10/15/2018 [facility] Systolic (mm Hg) 109 10/15/2018 [facility] Diastolic (mm Hg) 67 10/15/2018 [facility] Temperature Oral (F) 98.4 F 10/15/2018 [facility] Systolic (mm Hg) 115 10/15/2018 [facility] Diastolic (mm Hg) 74 10/15/2018 [facility] Respitory Rate 16 10/15/2018 [facility] Heart Rate 79 10/15/2018 [facility] Temperature Oral (F) 99.3 F 10/15/2018 [facility] BMI Calculated 29.35 10/14/2018 [facility] Weight 100.9 10/14/2018 [facility] Height 185.42 cm 10/14/2018 [facility] Weight 98.136 10/13/2018 [facility] Weight 112 10/10/2018 [facility] Height 182.88 cm 10/05/2018 [facility] BMI Calculated 33.98 10/05/2018 [facility] BMI Calculated 33.98 10/05/2018 [facility] Height 182.88 cm 10/05/2018 [facility] Heart Rate 72 01/21/[address] [facility] [...] [place] Temperature Oral (F) 97.4 F 01/11/2016 [facility] Heart Rate 97 01/11/2016 [facility] Respitory Rate 18 01/11/2016 [facility] Systolic (mm Hg) 147 01/11/2016 [facility] Diastolic (mm Hg) 93 01/11/2016 [facility] Respitory Rate 16 01/11/2016 [facility] Heart Rate 95 01/11/2016 [facility] Temperature Oral (F) 97.6 F 01/11/2016 [facility] Systolic (mm Hg) 150 01/11/2016 [facility] Diastolic (mm Hg) 91 01/11/2016 [facility] Temperature Oral (F) 97.9 F 01/11/2016 [facility] Heart Rate 93 01/11/2016 [facility] Respitory Rate 18 01/11/2016 [facility] Systolic (mm Hg) 144 01/11/2016 [facility] Diastolic (mm Hg) 89 01/11/2016 [facility] Weight 106.506 01/09/2016 [facility] BMI Calculated 30.98 01/09/2016 [facility] Height 185.42 cm 01/09/2016 [facility] Encounters Location Location Encounter Encounter Reason Attending ADM DC Status Source Details Type Number For Provider Date Date Visit [facility] Inpatient [id number] Artemio 01/08 01/10 Chriss Lopez /2015 [facility] [id number] 01/14 01/[address] [facility] [place] [facility] Inpatient [id number] Wiley 10/05 10/15 Ruben Banerjee Efra /2018 [facility] Procedures Procedure Code Date Perfomer Comments Source Chest Single [id number] [facility] [place] Anaerobic Blood [id number] [facility] - Culture 8 [place] Aerobic Blood [id number] [facility] Culture [facility] [place] [id number] [facility] [place] Count [id number] [facility] 8 [place] Chest Abd [id number] [facility] - Pelvis Wo Con 8 [place] Operation on [id number] [facility] hip joint [facility] Assessment and Plan Assessment and Plan Date Source Extracted from:Title: EGS 10/15/2018 [facility] Author: Beatriz Godinez MD Date: 10/05/18 EGS Consult Note Admitting Date: Patient was admitted on 10/05/2018 Admitting Physician: Delia Garza MD Admitting Diagnosis: Diverticulitis of intestine, part unspecified, without perforation or abscess without bleeding (K57.92) None Specified=FULL CODE Chief Complaint: "stomach pain" HPI: Patient is a 73 year old male with extensive PMH as below who arrived as transfer from an outside hospital where he was admitted for suspected perforated diverticulum. 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 Per at bedside, she believes he has had increasing abdominal pain and distention in the last 3- 4 weeks. Patient additionally had nausea, vomit ing, and diarrhea with bowel incontinence at baseline. Patient received 3L crystalloid at OSH and additional 2L in ED here. Upon exam in ED, patient was afebril with BP 80s/50s per cuff reading and HR 1 20s. Patient was started on antibiotics and admitted to STICU for further management and workup. PMH: HTN HLD DM CHF COPD Afib on home eliquis (last dose 10/04) TN PSH: Appendectomy Cholecystectomy Ventral hernia repair FH: Non-contributory SoH: Tobacco:50+ pack years Etoh: denies Street drugs: denies Allergies: metFORMIN, Dilaudid Medications (12) Active Scheduled Meds (4): 10/05/18 acetaminophen (Tylenol) 1,000 mg PO Q6H 10/05/18 ciprofloxacin 400 mg IVPB [id number] 10/05/18 gabapentin (gabapentin 100 mg oral capsule) 100 mg PO Q8H 10/05/18 metroNIDAZOLE (Flagyl) 500 mg IVPB [id number] Unscheduled Meds: None PRN Meds (2): 10/05/18 albuterol-ipratropium (DuoNeb inhalation solution) 3 ml NEB PRN 10/04/18 sodium chloride (Saline Flush 0.9%) 10 mL IVP PRN One Time Meds (4): 10/05/18 (Completed) Electrolyte Solution (Isolyte S PH-7.4 (Bolus) IV) 2,000 mL IV ONCE 10/04/18 (Completed) cefepime 1 gm IVPB ONCE 10/05/18 (Ordered) metoprolol (metoprolol 5 mg/5 ml INJ) 5 mg IVP ONCE 10/04/18 (Completed) piperacillin-tazobactam (Zosyn) 3.375 gm IVPB ONCE Continuous Infusions (2): 10/05/18 Electrolyte Solution 1,000 mL (Isolyte S PH 7.4 1,000 mL) 1,000 mL 50 ml/hr 10/05/18 norepinephrine 8 mg + Sodium Chloride 0.9% IV 242 mL (Levophed 8 mg in 250 mL (Titrate.) IV 8 mg + Sodium Chloride 0.9% IV 242 mL) 8 mg Titrate ROS: Constitutional symptoms: Denies fever, decreased appetite, lethargy HEENT: Denies ear pain, nasal drainage, sore throat, hoarseness, visual changes Cardiovascular: Denies murmurs, chest pain Respiratory: Denies cough, wheezing, difficulty breathing Gastrointestinal: + abdominal pain, + nausea, + vomiting, + diarrhea, + bowel incontinence Genitourinary: Denies dysuria, hematuria, decreased or absent urine output Musculoskeletal: Denies joint swelling, tenderness, weakness Neurological: Denies seizures, syncope, loss of consciousness, numbness, tingling PE: Vitals and Measurements HT: 182.88 cm HT Collection: Stated WT: 125 kg WT Collection: Measured BP : 73/44 HR(Apical): 98 bpm HR(Peripheral): 110 bpm RR: 17 BRMIN T(Ax): 97.9 DegF T(O): 98.4 DegF BP Site: Right arm BP Collection: Electronic BP Collection Position: Lying BMI: 33.98 m2 BSA: 2.4026 m2 SpO2: 99 % O2 Flow Rate: 2 L/min Constitutional:NAD Neuro:awake, alert HEENT:NCAT, hard of hearing CV:tachycardic, +2 radial pulses Pulm:symmetric chest rise, no respiratory distress Abdomen:soft, tender more on R side, distended, midline surgical scar MSK:moves all extremities Skin: warm, dry 24hr Labs 10/05 0312 UA Color Yellow UA Turbidity Slight Cloudy UA Spec Grav 1.015 UA pH 6.0 UA Protein Negative UA Glucose Negative UA Ketones Negative UA Bili Negative UA Blood Negative UA Urobilinogen 0.2 UA Nitrite Negative UA Leuk Est Trace UA RBC 0-2 UA WBC 3-5 UA Bacteria Moderate UA Sq Epi Rare UA Hyal Cast 0-2 10/05 0308 RBC product Product available 10/05 0022 ABO/Rh O POS Antibody Scrn Negative XM EXM Interp Compatible Sodium Lvl 130 L Potassium Lvl 6.1 H Chloride Lvl 100 CO2 21 L AGAP 15.1 Glucose Lvl 142 H Creatinine Lvl 3.36 H BUN 60 H B/C Ratio 18 Total Protein 6.3 L Albumin Lvl 3.0 L Globulin 3.3 A/G Ratio 0.9 Calcium Lvl 8.7 ALT 20 AST 20 Alk Phos 84 Bili Total 0.3 eGFR 17 Total CK 205 H Troponin-I 0.03 Lactic Acid Lvl 1.4 Procalcitonin Lvl 1.62 H 10/04 2358 Temp Wero 37.0 pH Wero 7.27 L pCO2 Wero 47 pO2 Wero 27 HCO3 Wero 22 BE Wero -5 L O2 Sat Wero 40.2 WBC 16.5 H RBC 2.93 L Hgb 7.0 C Hct 22.0 L MCV 75.2 L MCH 24.1 L MCHC 32.0 RDW 17.6 H Platelet 284 MPV 8.1 PT 18.7 H INR 1.60 H PTT 52.7 H Segs 82.4 H Monocytes 7.1 Lymphocytes 9.4 L Eosinophils 0.9 Basophils 0.2 Neutrophils # 13.6 H Lymphocytes # 1.6 Monocytes # 1.2 H Eosinophils # 0.2 Plt Morph Normal Microcyte 1+ Imaging Studies (last 36 hours) Chest 1view DX 10/05/2018 00:24 Impression: 1. Left basilar subsegmental atelectasis. 2. Borderline cardiomegaly. I/O Intake Output Balance 10/04/2018 7a-3p 0.00 0.00 0.00 3p-11p 0.00 0.00 0.00 11p-7a 2000.00 125.00 1875.00 As of 05:10 Totals 2000.00 125.00 1875.00 10/03/2018 7a-3p 0.00 0.00 0.00 3p-11p 0.00 0.00 0.00 11p-7a 0.00 0.00 0.00 Totals 0.00 0.00 0.00 Lines, Tubes, and Drains: 10/05/2018 04:22 Indwelling Urinary Catheter: Urethral 16 [place] Indwelling/ Continuous 10/05/2018 03:02 Central Lines: Femoral, right Non-tunneled (most common) 10/04/2018 23:55 Peripheral Lines: Upper arm Left 18 gauge Over the needle catheter Assessment/Plan: Patient is a 73 year old male with PMH of HTN, HLD, DM, CHF, COPD, [place], and A fib (on home eliquis, last dose 10/04) who presents with abdominal pain and concern for perforated diverticulum - on arrival to ED patient hypotensive and tachycardic to 120's despite s/p 5L crystalloid (3L [employer] SERVICE [employer]OCIATE, 2L in ED) - unclear reports of tarry stool at retirement with Hgb 7.0 and hemodynamic instability - continue fluid resuscitation and transfusions as needed - admit to STICU - place central line and arterial line - continue antibiotics - hold home eliquis - obtain echo - workup for GI bleed - patient currently not peritonitic on exam, will closely monitor for need for surgical intervention [facility] Faculty Addendum I have seen and examined the patient with the resident. I have reviewed the pertinent laboratory values and imaging studies. I agree with the assessment and plan as documented in the attached note and as detailed below: Acute sigmoid diverticulitis -- No pneumoperitoneum or free fluid noted on our review of outside CT scan. Over-read requested. IR consulted but no significant abscess that can be drained. On broad spect rum antibiotics. No peritonitis on exam. Cannot rule out malignancy -- colonoscopy not indicated at this time given concern for contained perforation. Check CEA. Septic shock -- Fluid resuscitation, pressors as needed. Acute kidney injury -- Cr 3.36 on admission. Fluid resuscitate. Renally dose medications. Hyperkalemia -- Treat medically. May need dialysis/ CRRT if KATHLEEN does not improve. Hyponatremia -- Fluid resuscitate, follow. CHF, unspecified -- Need to get details regarding his CHF from his pegger dobby looms. Obtain echo here for baseline. Atrial fibrillation -- Hold Eliquis given possible need for surgery. Admit to STICU. eDlia Garza MD Extracted from:Title: Progress Note * 01/11/2016 [facility] Author: Stew Gonzalez MD Date: 01/10/16 Impression and Plan ASESSMENT: Sepsis with fever, tachycardia, tachypnea, likely secondary to pneumonia. Pneumonia. Encephalopathy, likely metabolic encephalopathy from pneumonia. Frequent falls, likely secondary to physical deconditioning and debility. Acute exacerbation of COPD Type 2 diabetes mellitus. Hypertension. Hyperlipidemia. Coronary artery disease. H/o atrial flutter Chronic diastolic heart failure. Physical deconditioning and debility PLAN: Continue current antibiotics - iv Rocephin and Levofloxacin F/u cultures Continue Solu-medrol, Duoneb inh Obtain PT evaluation Will add Levemir 12 unit sc q12h, continue ssi Resume Coreg, continue Sotalol Continue Lasix 40 mg po bid Reviewed MAR< continue other medications Plan of Care Plan of Care Date Source Instructions 01/22/2018 [facility] Chronic Obstructive Pulmonary Disease Exacerbation, [id number] Chronic Obstructive Pulmonary Disease, [id number] Urinary Tract Infection, Adult, Egch-[id number] Sepsis, Adult PICC Insertion, Care After PROBLEM: sepsis, lower extremity edema, weakness, chronic obstructive pulmonary disease, diabetes mellitus, urinary tract infection GOAL: Clear understanding of disease process INSTRUCTIONS: follow up with primary caregiver in 1-2 weeks call 4th floor @ [phone] for any questions or concerns take iv antibiotics as prescribed Diet: ADA Activity: [facility] Services Needed: [facility] Name of Company: [facility] Date or Referral: 01/20/18 Instructions 01/22/2018 [facility] Chronic Obstructive Pulmonary Disease Exacerbation, [id number] Chronic Obstructive Pulmonary Disease, [id number] Urinary Tract Infection, Adult, [id number] Sepsis, Adult PICC Insertion, Care After PROBLEM: sepsis, lower extremity edema, weakness, chronic obstructive pulmonary disease, diabetes mellitus, urinary tract infection GOAL: Clear understanding of disease process INSTRUCTIONS: follow up with primary caregiver in 1-2 weeks call 4th floor @ [phone] for any questions or concerns take iv antibiotics as prescribed Diet: ADA Activity: [facility] Services Needed: Pen[facility] Name of Company: [facility] Date or Referral: 01/20/18 Social History Social History Date Source Social History TypeResponse 01/09/2016 [facility] Substance Abuse Use: None. Sexual Sexually active: No. Exercise Exercise duration: 00. Employment/School Status: Retired. Alcohol Never Smoking Status Current every day smoker; Exposure to Tobacco Smoke None; Cigarette Smoking Last 365 Days No; Reg Smoking Cessation Counseling No Social History TypeResponse 01/09/2016 [facility] Substance Abuse Use: None. Sexual Sexually active: No. Exercise Exercise duration: 00. Employment/School Status: Retired. Alcohol Never Smoking Status Former smoker; Exposure to Tobacco Smoke None; Cigarette Smoking Last 365 Days No; Reg Smoking Cessation Counseling No entered on: 10/07/18 Query Response Date Recorded Comment 09/30/1979 [facility] [place] [facility] [place] Alcohol Use? No January 15, 2018 1:26am CD- Drugs? No January 15, 2018 1:26am Query Response Start Date Stop Date Smoking Status Former smoker September 30, 1979 September 30, 2016 Family History Value Date Source Query Response Instance Date Recorded Comment 01/22/2018 [facility] Nurses notes ovarian cancer Sister January 15, 2018 1:26am Nurses notes breast cancer Mother January 15, 2018 1:26am Nurses notes heart attack Brother January 15, 2018 1:26am Medical History Cancer Sister January 15, 2018 1:26am Medical History Cancer Mother January 15, 2018 1:26am Medical History Heart disease Brother January 15, 2018 1:26am Nurses notes breast cancer June 15, 2017 7:40am Medical History Cancer June 15, 2017 7:40am Advance Directives Order Name Results Value Date Source Advance Directives Advance Directives Advance Directive Response Recorded Date/Time 01/22/2018 [facility] [place]. [place] - Does Patient Have Living Will [place] No January 21, 2018 6:00am Durable Power of Industrial Maintenance [place] for [facility] Care Yes January 15, 2018 1:26am Would you like additional information No January 15, 2018 1:26am Functional Status No Data Provided for This Section
--- OUTSIDE RECORDS SUMMARY | 2019-06-15 17:02 | XMS REPORT ---
:1945 Author Organization [facility] Address [address] [place] [address] Care Team Providers Name Role Phone LEIDY [...] (BEAKER) (test 166 mg/dL 70-110 TESTED AT [facility] [address] [place] [address] noax=[phone]) [facility] [address] ANG, NON-TUNNELED CATH/PICC >5 Y.O. WITH [id number] 14:38:00Reason for exam:->need for IV accessFINAL REPORT Right upper extremity PICC insertion. History: Needfor long-term IV therapy. Home Health Nurse: Brandon Devries MD. Color Straining Bag Washer: Char Portillo (fellow). Modality: Sonography and fluoroscopy. [...] needle into the right atrium. A 5 Burundian peel-away sheath was placed. The 5 Burundian double-lumen PICC line was measured and cut [...] MDReport Verified Date/Time: 01/19/2019 14:38:36 Reading Location: [place] [address] Angio Body Reading Room [id number] 07:02:00 Test Item Value Reference Range Comments MAGNESIUM (BEAKER) (test 1.8 mg/dL 1.6-2.6 Specimen slightly hemolyzed jlwg=342) BASIC METABOLIC [id number] 07:02:00 Test Item Value Reference Range Comments SODIUM (BEAKER) (test 141 meq/L 136-145 nfes=664) POTASSIUM (BEAKER) (test 3.7 meq/L 3.5-5.1 Specimen slightly wvgd=438) hemolyzed CHLORIDE (BEAKER) (test 114 meq/L 98-107 rrnr=306) CO2 (BEAKER) (test 21 meq/L 22-29 mrhy=399) BLOOD UREA NITROGEN 17 mg/dL 7-21 (BEAKER) (test pqyf=123) CREATININE (BEAKER) (test 1.09 mg/dL 0.57-1.25 Specimen slightly tpuz=067) hemolyzed GLUCOSE RANDOM (BEAKER) 116 mg/dL 70-105 (test woan=381) CALCIUM (BEAKER) (test 8.8 mg/dL 8.4-10.2 fafu=333) EGFR (BEAKER) (test 66 mL/min/1.73 sq m ESTIMATED GFR IS NOT dblt=0489) ACCURATE CREATININE CLEARANCE IN PREDICTING GLOMERULAR FILTRATION RATE. ESTIMATED GFR IS NOT APPLICABLE FOR DIALYSIS PATIENTS. POCT-GLUCOSE [id number] 06:28:00 Test Item Value Reference Range Comments POC-GLUCOSE METER (BEAKER) 121 mg/dL 70-110 TESTED AT [address] (test vxgj=1939) [place] [id number] POCT-GLUCOSE [id number] 21:25:00 Test Item Value Reference Range Comments POC-GLUCOSE METER (BEAKER) 163 mg/dL 70-110 TESTED AT [address] (test ohqs=3635) [place] [address] POCT-GLUCOSE [id number] 17:12:00 Test Item Value Reference Range Comments POC-GLUCOSE METER (BEAKER) 191 mg/dL 70-110 TESTED AT [address] (test jrgb=0116) [place] [id number] POCT-GLUCOSE [id number] 13:03:00 Test Item Value Reference Range Comments POC-GLUCOSE METER (BEAKER) 211 mg/dL 70-110 TESTED AT [address] (test zrbo=2676) [place] [address] POCT-GLUCOSE [id number] 08:47:00 Test Item Value Reference Range Comments POC-GLUCOSE METER (BEAKER) 124 mg/dL 70-110 TESTED AT [address] (test btaf=5760) [place] [address] POCT-GLUCOSE [id number] 21:04:00 Test Item Value Reference Range Comments POC-GLUCOSE METER (BEAKER) 213 mg/dL 70-110 TESTED AT [address] (test wvpf=7314) [place] [address] POCT-GLUCOSE [id number] 17:36:00 Test Item Value Reference Range Comments POC-GLUCOSE METER (BEAKER) 174 mg/dL 70-110 TESTED AT [address] (test ujor=4832) [place] [address] POCT-GLUCOSE [id number] 11:59:00 Test Item Value Reference Range Comments POC-GLUCOSE METER (BEAKER) 175 mg/dL 70-110 TESTED AT [address] (test mfdx=3854) [place] [id number] POCT-GLUCOSE [id number] 08:13:00 Test Item Value Reference Range Comments POC-GLUCOSE METER (BEAKER) 109 mg/dL 70-110 TESTED AT [address] (test ppov=5254) [facility] [address] [id number] 07:54:00 Test Item Value Reference Range Comments PHOSPHORUS (BEAKER) (test knsq=762) 3.1 mg/dL 2.3-4.7 [id number] 07:54:00 Test Item Value Reference Range Comments MAGNESIUM (BEAKER) (test sxnp=315) 1.7 mg/dL 1.6-2.6 BASIC METABOLIC [id number] 07:54:00 Test Item Value Reference Range Comments SODIUM (BEAKER) (test 140 meq/L 136-145 zorx=274) POTASSIUM (BEAKER) (test 3.7 meq/L 3.5-5.1 xluc=366) CHLORIDE (BEAKER) (test 112 meq/L 98-107 eixv=288) CO2 (BEAKER) (test 20 meq/L 22-29 aqpl=763) BLOOD UREA NITROGEN 22 mg/dL 7-21 (BEAKER) (test vhho=871) CREATININE (BEAKER) (test 1.20 mg/dL 0.57-1.25 fgvh=832) GLUCOSE RANDOM (BEAKER) 85 mg/dL 70-105 (test hgpg=133) CALCIUM (BEAKER) (test 8.9 mg/dL 8.4-10.2 eneh=221) EGFR (BEAKER) (test 59 mL/min/1.73 sq m ESTIMATED GFR IS NOT smso=0436) ACCURATE CREATININE CLEARANCE IN PREDICTING GLOMERULAR FILTRATION RATE. ESTIMATED GFR IS NOT APPLICABLE FOR DIALYSIS PATIENTS. CALCIUM, [id number] 06:26:00 Test Item Value Reference Range Comments CALCIUM IONIZED (BEAKER) (test zbvk=646) 1.08 mmol/L 1.12-1.27 PH, BLOOD (BEAKER) (test wivl=7484) 7.46 CBC W/PLT COUNT & AUTO [id number] 05:04:00 Test Item Value Reference Range Comments WHITE BLOOD CELL COUNT (BEAKER) (test gqry=442) 8.0 K/ L 3.5-10.5 RED BLOOD CELL COUNT (BEAKER) (test dtbi=783) 3.63 M/ L 4.63-6.08 HEMOGLOBIN (BEAKER) (test puru=846) 9.3 GM/DL 13.7-17.5 HEMATOCRIT (BEAKER) (test culu=529) 31.1 % 40.1-51.0 MEAN CORPUSCULAR VOLUME (BEAKER) (test nupe=709) 85.7 fL 79.0-92.2 MEAN CORPUSCULAR HEMOGLOBIN (BEAKER) (test 25.6 pg 25.7-32.2 oiqr=165) MEAN CORPUSCULAR HEMOGLOBIN CONC (BEAKER) (test 29.9 GM/DL 32.3-36.5 hpie=751) RED CELL DISTRIBUTION WIDTH (BEAKER) (test 17.6 % 11.6-14.4 pfen=870) PLATELET COUNT (BEAKER) (test qpjw=030) 188 K/CU MM 150-450 MEAN PLATELET VOLUME (BEAKER) (test cssd=934) 9.8 fL 9.4-12.4 NUCLEATED RED BLOOD CELLS (BEAKER) (test 0 /100 WBC 0-0 swzn=419) NEUTROPHILS RELATIVE PERCENT (BEAKER) (test 59 % auqx=757) LYMPHOCYTES RELATIVE PERCENT (BEAKER) (test 30 % ceha=175) MONOCYTES RELATIVE PERCENT (BEAKER) (test 7 % trbx=171) EOSINOPHILS RELATIVE PERCENT (BEAKER) (test 3 % zktj=305) BASOPHILS RELATIVE PERCENT (BEAKER) (test 1 % mfmo=074) NEUTROPHILS ABSOLUTE COUNT (BEAKER) (test 4.67 K/ L 1.78-5.38 eqlk=802) LYMPHOCYTES ABSOLUTE COUNT (BEAKER) (test 2.37 K/ L 1.32-3.57 awch=446) MONOCYTES ABSOLUTE COUNT (BEAKER) (test 0.55 K/ L 0.30-0.82 ppbo=861) EOSINOPHILS ABSOLUTE COUNT (BEAKER) (test 0.27 K/ L 0.04-0.54 olvr=709) BASOPHILS ABSOLUTE COUNT (BEAKER) (test 0.06 K/ L 0.01-0.08 lwgi=412) IMMATURE GRANULOCYTES-RELATIVE PERCENT (BEAKER) 1 % 0-1 (test ixlg=7514) POCT-GLUCOSE [id number] 21:25:00 Test Item Value Reference Range Comments POC-GLUCOSE METER (BEAKER) 187 mg/dL 70-110 TESTED AT [address] (test xczy=2706) [facility] [address] POCT-GLUCOSE [id number] 18:09:00 Test Item Value Reference Range Comments POC-GLUCOSE METER (BEAKER) 182 mg/dL 70-110 TESTED AT [address] (test ookj=5514) [facility] [address] POCT-GLUCOSE [id number] 13:07:00 Test Item Value Reference Range Comments POC-GLUCOSE METER (BEAKER) 130 mg/dL 70-110 TESTED AT [address] (test muxx=6810) [place] [id number] PROTHROMBIN [id number] 07:45:00 Test Item Value Reference Range Comments PROTIME (BEAKER) (test ulor=697) 16.0 seconds 11.7-14.7 INR (BEAKER) (test awsc=894) 1.3 <=5.9 RECOMMENDED COUMADIN/WARFARIN INR THERAPY RANGESSTANDARD DOSE: 2.0 - 3.0 Includes: PROPHYLAXIS forvenous thrombosis, systemic embolization; TREATMENT for venous thrombosis and/or pulmonary embolus.HIGH RISK: Target INR is 2.5-3.5 for patients with mechanical heart valves.POCT-GLUCOSE [id number] 06:24:00 Test Item Value Reference Range Comments POC-GLUCOSE METER (BEAKER) 105 mg/dL 70-110 TESTED AT [address] (test zcnp=2670) [facility] [address] POCT-GLUCOSE [id number] 21:22:00 Test Item Value Reference Range Comments POC-GLUCOSE METER (BEAKER) 149 mg/dL 70-110 TESTED AT [address] (test cisc=7281) [facility] [address] POCT-GLUCOSE [id number] 17:11:00 Test Item Value Reference Range Comments POC-GLUCOSE METER (BEAKER) 147 mg/dL 70-110 TESTED AT [address] (test jmtb=6634) [place] [address] POCT-GLUCOSE [id number] 12:59:00 Test Item Value Reference Range Comments POC-GLUCOSE METER (BEAKER) 144 mg/dL 70-110 TESTED AT [address] (test blhi=3297) [place] [address] POCT-GLUCOSE [id number] 09:26:00 Test Item Value Reference Range Comments POC-GLUCOSE METER (BEAKER) 135 mg/dL 70-110 TESTED AT [address] (test cfgw=5672) [place] [address] BASIC METABOLIC [id number] 04:09:00 Test Item Value Reference Range Comments SODIUM (BEAKER) (test 140 meq/L 136-145 ipha=538) POTASSIUM (BEAKER) (test 3.5 meq/L 3.5-5.1 obdi=184) CHLORIDE (BEAKER) (test 109 meq/L 98-107 kram=997) CO2 (BEAKER) (test 22 meq/L 22-29 twyy=874) BLOOD UREA NITROGEN 23 mg/dL 7-21 (BEAKER) (test mmoi=623) CREATININE (BEAKER) (test 1.31 mg/dL 0.57-1.25 ccez=282) GLUCOSE RANDOM (BEAKER) 103 mg/dL 70-105 (test xsuq=865) CALCIUM (BEAKER) (test 9.0 mg/dL 8.4-10.2 shmn=841) EGFR (BEAKER) (test 53 mL/min/1.73 sq m ESTIMATED GFR IS NOT renf=6566) ACCURATE CREATININE CLEARANCE IN PREDICTING GLOMERULAR FILTRATION RATE. ESTIMATED GFR IS NOT APPLICABLE FOR DIALYSIS PATIENTS. POCT-GLUCOSE [id number] 21:24:00 Test Item Value Reference Range Comments POC-GLUCOSE METER (BEAKER) 166 mg/dL 70-110 TESTED AT [address] (test yccr=7646) [place] [address] POCT-GLUCOSE [id number] 17:33:00 Test Item Value Reference Range Comments POC-GLUCOSE METER (BEAKER) 195 mg/dL 70-110 TESTED AT [address] (test iwii=7101) [place] [address] POCT-GLUCOSE [id number] 13:44:00 Test Item Value Reference Range Comments POC-GLUCOSE METER (BEAKER) 213 mg/dL 70-110 TESTED AT [facility] [address] [facility] (test ytrr=5103) [facility] [address] POCT-GLUCOSE [id number] 09:29:00 Test Item Value Reference Range Comments POC-GLUCOSE METER (BEAKER) 150 mg/dL 70-110 TESTED AT [facility] [address] [facility] (test ctmi=3955) [facility] [address] [id number] 05:59:00 Test Item Value Reference Range Comments MAGNESIUM (BEAKER) (test 1.7 mg/dL 1.6-2.6 Specimen slightly hemolyzed drfq=212) [id number] 05:59:00 Test Item Value Reference Range Comments PHOSPHORUS (BEAKER) (test 3.2 mg/dL 2.3-4.7 Specimen slightly hemolyzed kgzq=050) BASIC METABOLIC [id number] 05:59:00 Test Item Value Reference Range Comments SODIUM (BEAKER) (test 142 meq/L 136-145 lyiv=131) POTASSIUM (BEAKER) (test 3.5 meq/L 3.5-5.1 Specimen slightly ixiq=171) hemolyzed CHLORIDE (BEAKER) (test 111 meq/L 98-107 qzfw=460) CO2 (BEAKER) (test 22 meq/L 22-29 kaxv=243) BLOOD UREA NITROGEN 24 mg/dL 7-21 (BEAKER) (test vini=493) CREATININE (BEAKER) (test 1.32 mg/dL 0.57-1.25 Specimen slightly ccka=720) hemolyzed GLUCOSE RANDOM (BEAKER) 122 mg/dL 70-105 (test bqhc=862) CALCIUM (BEAKER) (test 9.0 mg/dL 8.4-10.2 rgjl=567) EGFR (BEAKER) (test 53 mL/min/1.73 sq m ESTIMATED GFR IS NOT asjj=5263) ACCURATE CREATININE CLEARANCE IN PREDICTING GLOMERULAR FILTRATION RATE. ESTIMATED GFR IS NOT APPLICABLE FOR DIALYSIS PATIENTS. B-TYPE NATRIURETIC FACTOR (BNP)2019-01-14 05:58:00 Test Item Value Reference Range Comments B-TYPE NATRIURETIC PEPTIDE (BEAKER) (test 298 pg/mL 0-100 gqsa=898) CBC W/PLT COUNT & AUTO [id number] 05:35:00 Test Item Value Reference Range Comments WHITE BLOOD CELL COUNT (BEAKER) (test nrwu=981) 10.1 K/ L 3.5-10.5 RED BLOOD CELL COUNT (BEAKER) (test rpxg=713) 3.57 M/ L 4.63-6.08 HEMOGLOBIN (BEAKER) (test brnl=384) 9.3 GM/DL 13.7-17.5 HEMATOCRIT (BEAKER) (test xkwt=159) 30.1 % 40.1-51.0 MEAN CORPUSCULAR VOLUME (BEAKER) (test kbpv=399) 84.3 fL 79.0-92.2 MEAN CORPUSCULAR HEMOGLOBIN (BEAKER) (test 26.1 pg 25.7-32.2 agmk=305) MEAN CORPUSCULAR HEMOGLOBIN CONC (BEAKER) (test 30.9 GM/DL 32.3-36.5 snzt=639) RED CELL DISTRIBUTION WIDTH (BEAKER) (test 17.6 % 11.6-14.4 fqtm=137) PLATELET COUNT (BEAKER) (test jvhi=570) 187 K/CU MM 150-450 MEAN PLATELET VOLUME (BEAKER) (test ljqg=111) 9.3 fL 9.4-12.4 NUCLEATED RED BLOOD CELLS (BEAKER) (test 0 /100 WBC 0-0 ogcv=840) NEUTROPHILS RELATIVE PERCENT (BEAKER) (test 69 % fadn=662) LYMPHOCYTES RELATIVE PERCENT (BEAKER) (test 23 % sxut=184) MONOCYTES RELATIVE PERCENT (BEAKER) (test 6 % jlgl=598) EOSINOPHILS RELATIVE PERCENT (BEAKER) (test 2 % oibh=106) BASOPHILS RELATIVE PERCENT (BEAKER) (test 0 % bnfs=895) NEUTROPHILS ABSOLUTE COUNT (BEAKER) (test 6.93 K/ L 1.78-5.38 urhm=582) LYMPHOCYTES ABSOLUTE COUNT (BEAKER) (test 2.33 K/ L 1.32-3.57 svbw=234) MONOCYTES ABSOLUTE COUNT (BEAKER) (test 0.56 K/ L 0.30-0.82 eguc=347) EOSINOPHILS ABSOLUTE COUNT (BEAKER) (test 0.23 K/ L 0.04-0.54 mahu=871) BASOPHILS ABSOLUTE COUNT (BEAKER) (test 0.03 K/ L 0.01-0.08 okyy=464) IMMATURE GRANULOCYTES-RELATIVE PERCENT (BEAKER) 0 % 0-1 (test fefj=5189) POCT-GLUCOSE [id number] 21:05:00 Test Item Value Reference Range Comments POC-GLUCOSE METER (BEAKER) 168 mg/dL 70-110 TESTED AT [address] (test gmuj=2692) [facility] [address] POCT-GLUCOSE [id number] 18:28:00 Test Item Value Reference Range Comments POC-GLUCOSE METER (BEAKER) 220 mg/dL 70-110 TESTED AT [address] (test jfyz=2991) [facility] [address] POCT-GLUCOSE [id number] 13:39:00 Test Item Value Reference Range Comments POC-GLUCOSE METER (BEAKER) 262 mg/dL 70-110 TESTED AT [address] (test pnnx=3960) [facility] [address] POCT-GLUCOSE [id number] 09:18:00 Test Item Value Reference Range Comments POC-GLUCOSE METER (BEAKER) 135 mg/dL 70-110 TESTED AT [address] (test akxy=9095) [facility] [address] OSMOLALITY, [id number] 07:19:00 Test Item Value Reference Range Comments OSMOLALITY URINE (BEAKER) 686 mOsm/kg 40-1,400 Performed at [facility] (test sehw=745) [facility] CALCIUM, [id number] 06:54:00 Test Item Value Reference Range Comments CALCIUM IONIZED (BEAKER) (test edhn=089) 1.01 mmol/L 1.12-1.27 PH, BLOOD (BEAKER) (test yhsr=7349) 7.50 [id number] 06:20:00 Test Item Value Reference Range Comments PHOSPHORUS (BEAKER) (test fulo=995) 3.2 mg/dL 2.3-4.7 [id number] 06:20:00 Test Item Value Reference Range Comments MAGNESIUM (BEAKER) (test auag=235) 1.7 mg/dL 1.6-2.6 BASIC METABOLIC [id number] 06:20:00 Test Item Value Reference Range Comments SODIUM (BEAKER) (test 140 meq/L 136-145 naxk=077) POTASSIUM (BEAKER) (test 3.5 meq/L 3.5-5.1 umna=035) CHLORIDE (BEAKER) (test 109 meq/L 98-107 hgil=671) CO2 (BEAKER) (test 24 meq/L 22-29 wojg=547) BLOOD UREA NITROGEN 27 mg/dL 7-21 (BEAKER) (test umok=855) CREATININE (BEAKER) (test 1.35 mg/dL 0.57-1.25 hgfv=771) GLUCOSE RANDOM (BEAKER) 135 mg/dL 70-105 (test hybw=063) CALCIUM (BEAKER) (test 9.1 mg/dL 8.4-10.2 nijx=411) EGFR (BEAKER) (test 52 mL/min/1.73 sq m ESTIMATED GFR IS NOT jxep=6417) ACCURATE CREATININE CLEARANCE IN PREDICTING GLOMERULAR FILTRATION RATE. ESTIMATED GFR IS NOT APPLICABLE FOR DIALYSIS PATIENTS. CBC W/PLT COUNT & AUTO [id number] 05:44:00 Test Item Value Reference Range Comments WHITE BLOOD CELL COUNT (BEAKER) (test otsz=164) 7.2 K/ L 3.5-10.5 RED BLOOD CELL COUNT (BEAKER) (test tull=474) 3.47 M/ L 4.63-6.08 HEMOGLOBIN (BEAKER) (test glio=247) 9.0 GM/DL 13.7-17.5 HEMATOCRIT (BEAKER) (test oxhx=657) 29.2 % 40.1-51.0 MEAN CORPUSCULAR VOLUME (BEAKER) (test hcuj=724) 84.1 fL 79.0-92.2 MEAN CORPUSCULAR HEMOGLOBIN (BEAKER) (test 25.9 pg 25.7-32.2 shxa=197) MEAN CORPUSCULAR HEMOGLOBIN CONC (BEAKER) (test 30.8 GM/DL 32.3-36.5 gfps=495) RED CELL DISTRIBUTION WIDTH (BEAKER) (test 18.0 % 11.6-14.4 qemv=745) PLATELET COUNT (BEAKER) (test qefk=711) 195 K/CU MM 150-450 MEAN PLATELET VOLUME (BEAKER) (test qkpt=499) 9.1 fL 9.4-12.4 NUCLEATED RED BLOOD CELLS (BEAKER) (test 0 /100 WBC 0-0 smfx=781) NEUTROPHILS RELATIVE PERCENT (BEAKER) (test 53 % ehwh=776) LYMPHOCYTES RELATIVE PERCENT (BEAKER) (test 35 % fdzm=216) MONOCYTES RELATIVE PERCENT (BEAKER) (test 8 % wdre=545) EOSINOPHILS RELATIVE PERCENT (BEAKER) (test 4 % gylj=186) BASOPHILS RELATIVE PERCENT (BEAKER) (test 1 % dqsn=108) NEUTROPHILS ABSOLUTE COUNT (BEAKER) (test 3.80 K/ L 1.78-5.38 xxqz=807) LYMPHOCYTES ABSOLUTE COUNT (BEAKER) (test 2.52 K/ L 1.32-3.57 xuiy=429) MONOCYTES ABSOLUTE COUNT (BEAKER) (test 0.55 K/ L 0.30-0.82 qemh=631) EOSINOPHILS ABSOLUTE COUNT (BEAKER) (test 0.30 K/ L 0.04-0.54 azmo=301) BASOPHILS ABSOLUTE COUNT (BEAKER) (test 0.04 K/ L 0.01-0.08 main=894) IMMATURE GRANULOCYTES-RELATIVE PERCENT (BEAKER) 0 % 0-1 (test ygni=5647) MR, BRAIN, [id number] 04:02:00FINAL REPORT MR, BRAIN , WITH \T\ [...] of intracranial metastatic disease Signed: Jeff Sanford Verified Date/Time: 01/13/2019 04:02:20 Reading Location: [facility] C0[facility] Neuro Reading Room POCT-GLUCOSE [id number] 22:05:00 Test Item Value Reference Range Comments POC-GLUCOSE METER (BEAKER) 187 mg/dL 70-110 TESTED AT [facility] [address] [facility] (test bvki=7915) [facility] [address] POCT-GLUCOSE [id number] 18:17:00 Test Item Value Reference Range Comments POC-GLUCOSE METER (BEAKER) 137 mg/dL 70-110 TESTED AT [address] (test uetj=6355) [facility] [address] POCT-GLUCOSE [id number] 13:08:00 Test Item Value Reference Range Comments POC-GLUCOSE METER (BEAKER) 221 mg/dL 70-110 TESTED AT [address] (test lbgb=8307) [facility] [address] CT, CHEST, WITHOUT [id number] 13:03:00FINAL REPORT CT of the Chest dated [...] Verified Date/Time: 01/12/2019 13:03: 39 Reading Location: [facility] C0Y CT Body Reading Room POCT-GLUCOSE [id number] 07:53:00 Test Item Value Reference Range Comments POC-GLUCOSE METER (BEAKER) 156 mg/dL 70-110 TESTED AT [address] (test gjwu=2530) [facility] [address] BASIC METABOLIC [id number] 03:16:00 Test Item Value Reference Range Comments SODIUM (BEAKER) (test 138 meq/L 136-145 tvcg=495) POTASSIUM (BEAKER) (test 3.6 meq/L 3.5-5.1 qbyu=144) CHLORIDE (BEAKER) (test 106 meq/L 98-107 abtj=079) CO2 (BEAKER) (test 22 meq/L 22-29 liwm=808) BLOOD UREA NITROGEN 31 mg/dL 7-21 (BEAKER) (test qmkz=377) CREATININE (BEAKER) (test 1.44 mg/dL 0.57-1.25 ebtp=477) GLUCOSE RANDOM (BEAKER) 123 mg/dL 70-105 (test sbxa=423) CALCIUM (BEAKER) (test 9.1 mg/dL 8.4-10.2 qmsv=799) EGFR (BEAKER) (test 48 mL/min/1.73 sq m ESTIMATED GFR IS NOT ghot=4726) ACCURATE CREATININE CLEARANCE IN PREDICTING GLOMERULAR FILTRATION RATE. ESTIMATED GFR IS NOT APPLICABLE FOR DIALYSIS PATIENTS. POCT-GLUCOSE [id number] 21:12:00 Test Item Value Reference Range Comments POC-GLUCOSE METER (BEAKER) 159 mg/dL 70-110 TESTED AT [facility] [address] [facility] (test jvqr=3890) [facility] [address] POCT-GLUCOSE [id number] 17:44:00 Test Item Value Reference Range Comments POC-GLUCOSE METER (BEAKER) 158 mg/dL 70-110 TESTED AT [facility] [address] [facility] (test brlb=5023) [facility] [address] U/S, RENAL, [id number] 10:50:00Reason for exam:->AKIShould this be performed at [...] MDReport Verified Date/Time: 01/11/2019 10:50:26 Reading Location: [facility] C013X Ortho Consult Reading Room MR, MRA ABDOMEN, WITHOUT FOLLOW WITH [id number] 08:43:00FINAL REPORT MRA of the abdominal [...] in the MRA series). Signed: Yoshi Leger MDReport Verified Date/Time: 01/11 08:43:33 Reading Location: [place] [address] Cardiology MRI POCT-GLUCOSE [id number] 07:57:00 Test Item Value Reference Range Comments POC-GLUCOSE METER (BEAKER) 137 mg/dL 70-110 TESTED AT [facility] [address] [facility] (test gbjr=9117) [facility] [address] BASIC METABOLIC [id number] 07:37:00 Test Item Value Reference Range Comments SODIUM (BEAKER) (test 141 meq/L 136-145 wdvi=066) POTASSIUM (BEAKER) (test 4.2 meq/L 3.5-5.1 saec=110) CHLORIDE (BEAKER) (test 106 meq/L 98-107 pmao=463) CO2 (BEAKER) (test 25 meq/L 22-29 ygfg=478) BLOOD UREA NITROGEN 35 mg/dL 7-21 (BEAKER) (test lyyu=588) CREATININE (BEAKER) (test 1.67 mg/dL 0.57-1.25 kzbs=919) GLUCOSE RANDOM (BEAKER) 121 mg/dL 70-105 (test johb=274) CALCIUM (BEAKER) (test 9.3 mg/dL 8.4-10.2 tvnj=442) EGFR (BEAKER) (test 40 mL/min/1.73 sq m ESTIMATED GFR IS NOT snyl=7246) ACCURATE CREATININE CLEARANCE IN PREDICTING GLOMERULAR FILTRATION RATE. ESTIMATED GFR IS NOT APPLICABLE FOR DIALYSIS PATIENTS. CBC W/PLT COUNT & AUTO [id number] 06:21:00 Test Item Value Reference Range Comments WHITE BLOOD CELL COUNT (BEAKER) (test gawb=809) 7.3 K/ L 3.5-10.5 RED BLOOD CELL COUNT (BEAKER) (test wcih=576) 3.65 M/ L 4.63-6.08 HEMOGLOBIN (BEAKER) (test lcpz=214) 9.7 GM/DL 13.7-17.5 HEMATOCRIT (BEAKER) (test aawx=897) 30.8 % 40.1-51.0 MEAN CORPUSCULAR VOLUME (BEAKER) (test ebbc=508) 84.4 fL 79.0-92.2 MEAN CORPUSCULAR HEMOGLOBIN (BEAKER) (test 26.6 pg 25.7-32.2 iinw=909) MEAN CORPUSCULAR HEMOGLOBIN CONC (BEAKER) (test 31.5 GM/DL 32.3-36.5 xldy=940) RED CELL DISTRIBUTION WIDTH (BEAKER) (test 18.2 % 11.6-14.4 jtlr=248) PLATELET COUNT (BEAKER) (test mmfl=384) 229 K/CU MM 150-450 MEAN PLATELET VOLUME (BEAKER) (test wtkq=147) 9.7 fL 9.4-12.4 NUCLEATED RED BLOOD CELLS (BEAKER) (test 0 /100 WBC 0-0 ilsb=280) NEUTROPHILS RELATIVE PERCENT (BEAKER) (test 55 % ibzh=930) LYMPHOCYTES RELATIVE PERCENT (BEAKER) (test 31 % hqfs=539) MONOCYTES RELATIVE PERCENT (BEAKER) (test 8 % hhij=972) EOSINOPHILS RELATIVE PERCENT (BEAKER) (test 5 % wzzy=686) BASOPHILS RELATIVE PERCENT (BEAKER) (test 1 % urov=114) NEUTROPHILS ABSOLUTE COUNT (BEAKER) (test 3.99 K/ L 1.78-5.38 bjsg=076) LYMPHOCYTES ABSOLUTE COUNT (BEAKER) (test 2.28 K/ L 1.32-3.57 eylv=828) MONOCYTES ABSOLUTE COUNT (BEAKER) (test 0.59 K/ L 0.30-0.82 kvow=866) EOSINOPHILS ABSOLUTE COUNT (BEAKER) (test 0.37 K/ L 0.04-0.54 ymaq=315) BASOPHILS ABSOLUTE COUNT (BEAKER) (test 0.05 K/ L 0.01-0.08 efpn=161) IMMATURE GRANULOCYTES-RELATIVE PERCENT (BEAKER) 0 % 0-1 (test qjro=1074) POCT-GLUCOSE [id number] 21:13:00 Test Item Value Reference Range Comments POC-GLUCOSE METER (BEAKER) 188 mg/dL 70-110 TESTED AT [facility] [address] [facility] (test uqsy=1572) [facility] [address] POCT-GLUCOSE [id number] 18:14:00 Test Item Value Reference Range Comments POC-GLUCOSE METER (BEAKER) 159 mg/dL 70-110 TESTED AT [facility] [address] [facility] (test tsth=7167) [facility] [address] POCT-GLUCOSE [id number] 12:15:00 Test Item Value Reference Range Comments POC-GLUCOSE METER (BEAKER) 174 mg/dL 70-110 TESTED AT [facility] [address] [facility] (test twlv=0923) [facility] [address] BASIC METABOLIC [id number] 11:21:00 Test Item Value Reference Range Comments SODIUM (BEAKER) (test 142 meq/L 136-145 omsz=196) POTASSIUM (BEAKER) (test 3.9 meq/L 3.5-5.1 sjfy=847) CHLORIDE (BEAKER) (test 112 meq/L 98-107 qibf=826) CO2 (BEAKER) (test 22 meq/L 22-29 eihf=785) BLOOD UREA NITROGEN 35 mg/dL 7-21 (BEAKER) (test rhip=547) CREATININE (BEAKER) (test 1.57 mg/dL 0.57-1.25 hmsb=407) GLUCOSE RANDOM (BEAKER) 149 mg/dL 70-105 (test vizz=229) CALCIUM (BEAKER) (test 8.3 mg/dL 8.4-10.2 lhyi=956) EGFR (BEAKER) (test 43 mL/min/1.73 sq m ESTIMATED GFR IS NOT mqbd=6330) ACCURATE CREATININE CLEARANCE IN PREDICTING GLOMERULAR FILTRATION RATE. ESTIMATED GFR IS NOT APPLICABLE FOR DIALYSIS PATIENTS. CBC W/PLT COUNT & AUTO [id number] 09:55:00 Test Item Value Reference Range Comments WHITE BLOOD CELL COUNT (BEAKER) (test oksd=912) 7.2 K/ L 3.5-10.5 RED BLOOD CELL COUNT (BEAKER) (test leup=787) 3.54 M/ L 4.63-6.08 HEMOGLOBIN (BEAKER) (test ozzl=299) 9.3 GM/DL 13.7-17.5 HEMATOCRIT (BEAKER) (test vzsc=312) 30.0 % 40.1-51.0 MEAN CORPUSCULAR VOLUME (BEAKER) (test fcyt=225) 84.7 fL 79.0-92.2 MEAN CORPUSCULAR HEMOGLOBIN (BEAKER) (test 26.3 pg 25.7-32.2 oxfv=430) MEAN CORPUSCULAR HEMOGLOBIN CONC (BEAKER) (test 31.0 GM/DL 32.3-36.5 bybv=360) RED CELL DISTRIBUTION WIDTH (BEAKER) (test 18.1 % 11.6-14.4 tuni=080) PLATELET COUNT (BEAKER) (test jhgh=879) 222 K/CU MM 150-450 MEAN PLATELET VOLUME (BEAKER) (test chmj=092) 9.2 fL 9.4-12.4 NUCLEATED RED BLOOD CELLS (BEAKER) (test 0 /100 WBC 0-0 idfp=879) NEUTROPHILS RELATIVE PERCENT (BEAKER) (test 62 % xxzy=287) LYMPHOCYTES RELATIVE PERCENT (BEAKER) (test 26 % xiaa=841) MONOCYTES RELATIVE PERCENT (BEAKER) (test 8 % dekn=077) EOSINOPHILS RELATIVE PERCENT (BEAKER) (test 3 % eobp=845) BASOPHILS RELATIVE PERCENT (BEAKER) (test 1 % lowb=670) NEUTROPHILS ABSOLUTE COUNT (BEAKER) (test 4.43 K/ L 1.78-5.38 bjqb=877) LYMPHOCYTES ABSOLUTE COUNT (BEAKER) (test 1.85 K/ L 1.32-3.57 hovp=087) MONOCYTES ABSOLUTE COUNT (BEAKER) (test 0.57 K/ L 0.30-0.82 ufqo=975) EOSINOPHILS ABSOLUTE COUNT (BEAKER) (test 0.24 K/ L 0.04-0.54 vpvv=562) BASOPHILS ABSOLUTE COUNT (BEAKER) (test 0.04 K/ L 0.01-0.08 gptc=495) IMMATURE GRANULOCYTES-RELATIVE PERCENT (BEAKER) 1 % 0-1 (test xfnp=1126) BASIC METABOLIC [id number] 23:02:00 Test Item Value Reference Range Comments SODIUM (BEAKER) (test 137 meq/L 136-145 ujos=695) POTASSIUM (BEAKER) (test 4.6 meq/L 3.5-5.1 gknj=552) CHLORIDE (BEAKER) (test 109 meq/L 98-107 lmuf=662) CO2 (BEAKER) (test 22 meq/L 22-29 ofdb=269) BLOOD UREA NITROGEN 38 mg/dL 7-21 (BEAKER) (test ggck=487) CREATININE (BEAKER) (test 1.91 mg/dL 0.57-1.25 phes=112) GLUCOSE RANDOM (BEAKER) 157 mg/dL 70-105 (test qyhg=113) CALCIUM (BEAKER) (test 8.9 mg/dL 8.4-10.2 hwjf=334) EGFR (BEAKER) (test 35 mL/min/1.73 sq m ESTIMATED GFR IS NOT zxdh=1435) ACCURATE CREATININE CLEARANCE IN PREDICTING GLOMERULAR FILTRATION RATE. ESTIMATED GFR IS NOT APPLICABLE FOR DIALYSIS PATIENTS. POCT-GLUCOSE [id number] 21:56:00 Test Item Value Reference Range Comments POC-GLUCOSE METER (BEAKER) 161 mg/dL 70-110 TESTED AT [address] (test rcuj=0788) [place] [address] POCT-GLUCOSE [id number] 13:45:00 Test Item Value Reference Range Comments POC-GLUCOSE METER (BEAKER) 164 mg/dL 70-110 TESTED AT [address] (test fwjt=8774) [place] [address] [id number] 10:16:00 Test Item Value Reference Range Comments POTASSIUM (BEAKER) (test 5.5 meq/L 3.5-5.1 Specimen slightly hemolyzed rfub=101) CALCIUM, [id number] 07:07:00 Test Item Value Reference Range Comments CALCIUM IONIZED (BEAKER) (test mgwj=462) 1.05 mmol/L 1.12-1.27 PH, BLOOD (BEAKER) (test tnwt=5845) 7.31 [id number] 06:19:00 Test Item Value Reference Range Comments POTASSIUM (BEAKER) (test akqu=760) 5.3 meq/L 3.5-5.1 POCT-GLUCOSE [id number] 06:17:00 Test Item Value Reference Range Comments POC-GLUCOSE METER (BEAKER) 177 mg/dL 70-110 TESTED AT [address] (test akjy=3567) [place] [address] [id number] 05:44:00 Test Item Value Reference Range Comments PHOSPHORUS (BEAKER) (test nfof=254) 4.0 mg/dL 2.3-4.7 [id number] 05:44:00 Test Item Value Reference Range Comments MAGNESIUM (BEAKER) (test wnju=028) 1.6 mg/dL 1.6-2.6 COMPREHENSIVE METABOLIC [id number] 05:44:00 Test Item Value Reference Range Comments TOTAL PROTEIN (BEAKER) 7.3 gm/dL 6.0-8.3 (test rnyt=870) ALBUMIN (BEAKER) (test 3.8 g/dL 3.5-5.0 nkrb=2456) ALKALINE PHOSPHATASE 91 U/L 40-150 (BEAKER) (test vjlb=545) BILIRUBIN TOTAL (BEAKER) 0.5 mg/dL 0.2-1.2 (test qkqc=559) SODIUM (BEAKER) (test 139 meq/L 136-145 vdve=362) POTASSIUM (BEAKER) (test 5.4 meq/L 3.5-5.1 falc=296) CHLORIDE (BEAKER) (test 110 meq/L 98-107 cogc=966) CO2 (BEAKER) (test 20 meq/L 22-29 qzfm=795) BLOOD UREA NITROGEN 45 mg/dL 7-21 (BEAKER) (test behq=695) CREATININE (BEAKER) (test 2.45 mg/dL 0.57-1.25 yidt=822) GLUCOSE RANDOM (BEAKER) 177 mg/dL 70-105 (test gevf=168) CALCIUM (BEAKER) (test 9.5 mg/dL 8.4-10.2 hvet=229) AST (SGOT) (BEAKER) (test 11 U/L 5-34 spkj=595) ALT (SGPT) (BEAKER) (test 9 U/L 6-55 grxt=268) EGFR (BEAKER) (test 26 mL/min/1.73 sq m ESTIMATED GFR IS NOT iild=3642) ACCURATE CREATININE CLEARANCE IN PREDICTING GLOMERULAR FILTRATION RATE. ESTIMATED GFR IS NOT APPLICABLE FOR DIALYSIS PATIENTS. B-TYPE NATRIURETIC FACTOR (BNP)2019-01-09 05:34:00 Test Item Value Reference Range Comments B-TYPE NATRIURETIC PEPTIDE (BEAKER) (test 248 pg/mL 0-100 uqgq=115) CBC W/PLT COUNT & AUTO [id number] 05:14:00 Test Item Value Reference Range Comments WHITE BLOOD CELL COUNT (BEAKER) (test vjlc=376) 9.4 K/ L 3.5-10.5 RED BLOOD CELL COUNT (BEAKER) (test kvjb=302) 3.79 M/ L 4.63-6.08 HEMOGLOBIN (BEAKER) (test doqi=983) 9.8 GM/DL 13.7-17.5 HEMATOCRIT (BEAKER) (test sjnp=240) 32.0 % 40.1-51.0 MEAN CORPUSCULAR VOLUME (BEAKER) (test lsoi=126) 84.4 fL 79.0-92.2 MEAN CORPUSCULAR HEMOGLOBIN (BEAKER) (test 25.9 pg 25.7-32.2 alha=599) MEAN CORPUSCULAR HEMOGLOBIN CONC (BEAKER) (test 30.6 GM/DL 32.3-36.5 pxgb=771) RED CELL DISTRIBUTION WIDTH (BEAKER) (test 17.5 % 11.6-14.4 nczs=405) PLATELET COUNT (BEAKER) (test hkes=580) 232 K/CU MM 150-450 MEAN PLATELET VOLUME (BEAKER) (test ljoj=669) 9.3 fL 9.4-12.4 NUCLEATED RED BLOOD CELLS (BEAKER) (test 0 /100 WBC 0-0 geru=258) NEUTROPHILS RELATIVE PERCENT (BEAKER) (test 78 % nvaw=580) LYMPHOCYTES RELATIVE PERCENT (BEAKER) (test 13 % dcsx=979) MONOCYTES RELATIVE PERCENT (BEAKER) (test 4 % jhjd=127) EOSINOPHILS RELATIVE PERCENT (BEAKER) (test 4 % spbh=115) BASOPHILS RELATIVE PERCENT (BEAKER) (test 0 % twga=192) NEUTROPHILS ABSOLUTE COUNT (BEAKER) (test 7.31 K/ L 1.78-5.38 cpxt=585) LYMPHOCYTES ABSOLUTE COUNT (BEAKER) (test 1.24 K/ L 1.32-3.57 ihdi=235) MONOCYTES ABSOLUTE COUNT (BEAKER) (test 0.37 K/ L 0.30-0.82 xehh=437) EOSINOPHILS ABSOLUTE COUNT (BEAKER) (test 0.39 K/ L 0.04-0.54 enfs=798) BASOPHILS ABSOLUTE COUNT (BEAKER) (test 0.04 K/ L 0.01-0.08 rrdi=537) IMMATURE GRANULOCYTES-RELATIVE PERCENT (BEAKER) 0 % 0-1 (test gqrc=8512) URINALYSIS W/ [id number] 00:47:00 Test Item Value Reference Range Comments COLOR (BEAKER) (test ccjh=289) Yellow CLARITY (BEAKER) (test ylmc=024) Cloudy SPECIFIC GRAVITY UA (BEAKER) (test ccvw=912) 1.014 1.001-1.035 PH UA (BEAKER) (test eteh=021) 7.5 5.0-8.0 PROTEIN UA (BEAKER) (test adwq=407) 50 mg/dL Negative GLUCOSE UA (BEAKER) (test jlac=567) Negative Negative KETONES UA (BEAKER) (test hlyk=288) Negative Negative BILIRUBIN UA (BEAKER) (test zrcp=341) Negative Negative BLOOD UA (BEAKER) (test zftm=374) Small Negative NITRITE UA (BEAKER) (test cfyi=273) Negative Negative LEUKOCYTE ESTERASE UA (BEAKER) (test zyzg=040) Large Negative UROBILINOGEN UA (BEAKER) (test zajb=380) 0.2 mg/dL 0.2-1.0 RBC UA (BEAKER) (test phcm=879) 71 /HPF WBC UA (BEAKER) (test orlk=701) 1129 /HPF BACTERIA (BEAKER) (test ozlh=789) Many MUCUS (BEAKER) (test jbzw=9607) Rare SQUAMOUS EPITHELIAL (BEAKER) (test pyfn=239) 1 /HPF HYALINE CASTS (BEAKER) (test qlff=875) 19 /LPF SOURCE(BEAKER) (test stbq=0386) Urine, Voided [id number] 00:34:00 Test Item Value Reference Range Comments POTASSIUM (BEAKER) (test yumy=767) 5.4 meq/L 3.5-5.1 RAD, CHEST, 1 VIEW, NON [id number] 23:33:00Reason for exam:->edemaShould this be performed at [...] acute osseous abnormalities identified. Signed: Brandon Devries MDReport Verified Date/Time: 01/08/2019 23:33:47 Reading Location: [facility] B1 [id number] Consult Reading Room POCT-GLUCOSE [id number] 21:58:00 Test Item Value Reference Range Comments POC-GLUCOSE METER (BEAKER) 186 mg/dL 70-110 TESTED AT [facility] [address] [facility] (test swdr=1254) [facility] [address] EOSINOPHIL SMEAR, [id number] 20:29:00 Test Item Value Reference Range Comments EOSINOPHIL SMEAR, URINE (BEAKER) (test No EOS seen No EOS seen ormr=1430) BASIC METABOLIC [id number] 20:08:00 Test Item Value Reference Range Comments SODIUM (BEAKER) (test 134 meq/L 136-145 akhv=424) POTASSIUM (BEAKER) (test 5.5 meq/L 3.5-5.1 bszt=415) CHLORIDE (BEAKER) (test 108 meq/L 98-107 zhta=074) CO2 (BEAKER) (test 19 meq/L 22-29 devn=091) BLOOD UREA NITROGEN 47 mg/dL 7-21 (BEAKER) (test xsnx=974) CREATININE (BEAKER) (test 2.51 mg/dL 0.57-1.25 jkiv=924) GLUCOSE RANDOM (BEAKER) 185 mg/dL 70-105 (test dvtt=594) CALCIUM (BEAKER) (test 9.2 mg/dL 8.4-10.2 sqwa=626) EGFR (BEAKER) (test 25 mL/min/1.73 sq m ESTIMATED GFR IS NOT fjur=9805) ACCURATE CREATININE CLEARANCE IN PREDICTING GLOMERULAR FILTRATION RATE. ESTIMATED GFR IS NOT APPLICABLE FOR DIALYSIS PATIENTS. Thank you for drawing the blood. He requires strict monitoring of K in preparation for OR tomorrow.HEMOGLOBIN AND [id number] 19:51:00 Test Item Value Reference Range Comments HEMOGLOBIN (BEAKER) (test ewsk=748) 8.0 GM/DL 13.7-17.5 HEMATOCRIT (BEAKER) (test zhqy=064) 26.2 % 40.1-51.0 CREATININE, RANDOM [id number] 19:03:00 Test Item Value Reference Range Comments CREATININE URINE (BEAKER) (test xqla=495) 89.1 mg/dL Reference Range: No NormalsPROTEIN, RANDOM [id number] 19:03:00 Test Item Value Reference Range Comments PROTEIN, URINE (BEAKER) (test xirl=3130) 19 mg/dL 0-14 SODIUM, RANDOM [id number] 19:03:00 Test Item Value Reference Range Comments SODIUM URINE (BEAKER) (test ygyz=009) 90 meq/L Reference Range: No NormalsPOCT-GLUCOSE [id number] 16:48:00 Test Item Value Reference Range Comments POC-GLUCOSE METER (BEAKER) 259 mg/dL 70-110 TESTED AT [facility] [address] [facility] (test ofdz=0236) [facility] [address] B-TYPE NATRIURETIC FACTOR (BNP)2019-01-08 16:33:00 Test Item Value Reference Range Comments B-TYPE NATRIURETIC PEPTIDE (BEAKER) (test 219 pg/mL 0-100 jmxh=724) BASIC METABOLIC [id number] 16:32:00 Test Item Value Reference Range Comments SODIUM (BEAKER) (test 134 meq/L 136-145 cjxm=721) POTASSIUM (BEAKER) (test 5.7 meq/L 3.5-5.1 mkjm=741) CHLORIDE (BEAKER) (test 108 meq/L 98-107 wcxv=707) CO2 (BEAKER) (test 19 meq/L 22-29 wsar=861) BLOOD UREA NITROGEN 49 mg/dL 7-21 (BEAKER) (test exwa=143) CREATININE (BEAKER) (test 2.68 mg/dL 0.57-1.25 qglz=533) GLUCOSE RANDOM (BEAKER) 217 mg/dL 70-105 (test duqj=636) CALCIUM (BEAKER) (test 9.3 mg/dL 8.4-10.2 tlnv=085) EGFR (BEAKER) (test 23 mL/min/1.73 sq m ESTIMATED GFR IS NOT kipo=7798) ACCURATE CREATININE CLEARANCE IN PREDICTING GLOMERULAR FILTRATION RATE. ESTIMATED GFR IS NOT APPLICABLE FOR DIALYSIS PATIENTS. URIC [id number] 16:30:00 Test Item Value Reference Range Comments URIC ACID (BEAKER) (test dxof=206) 8.3 mg/dL 2.6-7.2 POCT-GLUCOSE [id number] 10:00:00 Test Item Value Reference Range Comments POC-GLUCOSE METER (BEAKER) 206 mg/dL 70-110 TESTED AT [facility] [address] (test xrut=4013) [facility] [address] BASIC METABOLIC [id number] 09:58:00 Test Item Value Reference Range Comments SODIUM (BEAKER) (test 133 meq/L 136-145 sdxu=359) POTASSIUM (BEAKER) (test 6.3 meq/L 3.5-5.1 uojb=290) CHLORIDE (BEAKER) (test 107 meq/L 98-107 rjcq=521) CO2 (BEAKER) (test 20 meq/L 22-29 imaf=973) BLOOD UREA NITROGEN 49 mg/dL 7-21 (BEAKER) (test dfpw=245) CREATININE (BEAKER) (test 2.70 mg/dL 0.57-1.25 ugtl=807) GLUCOSE RANDOM (BEAKER) 171 mg/dL 70-105 (test ajft=544) CALCIUM (BEAKER) (test 9.1 mg/dL 8.4-10.2 cczd=435) EGFR (BEAKER) (test 23 mL/min/1.73 sq m ESTIMATED GFR IS NOT adwt=4268) ACCURATE CREATININE CLEARANCE IN PREDICTING GLOMERULAR FILTRATION RATE. ESTIMATED GFR IS NOT APPLICABLE FOR DIALYSIS PATIENTS. [id number] 09:33:00 Test Item Value Reference Range Comments PARTIAL THROMBOPLASTIN TIME (BEAKER) (test 44.8 seconds 22.5-36.0 cykt=878) PROTHROMBIN [id number] 09:32:00 Test Item Value Reference Range Comments PROTIME (BEAKER) (test ibfn=389) 17.4 seconds 11.7-14.7 INR (BEAKER) (test pxtr=971) 1.4 <=5.9 RECOMMENDED COUMADIN/WARFARIN INR THERAPY RANGESSTANDARD DOSE: 2.0 - 3.0 Includes: PROPHYLAXIS forvenous thrombosis, systemic embolization; TREATMENT for venous thrombosis and/or pulmonary embolus.HIGH RISK: Target INR is 2.5-3.5 for patients with mechanical heart valves.HEMOGLOBIN AND [id number] 09 :24:00 Test Item Value Reference Range Comments HEMOGLOBIN (BEAKER) (test sseb=638) 8.0 GM/DL 13.7-17.5 HEMATOCRIT (BEAKER) (test juqv=085) 27.2 % 40.1-51.0 [id number] 11:10:00Medical Cytology Report Case: [id number] Authorizing Provider: Gianna Peter MD Collected: 11/28/2018 0438 Ordering Location: [address] Received: 11/28/2018 1650 Service Pathologist: Chelsea Curran MD Specimen: Kidney , Right RIGHT KIDNEY MASS, FNA AND CORE BIOPSY BY RADIOLOGIST (FILOMENA) (DIRECT SMEARS AND CELL BLOCK OF ASPIRATE): - FEW ATYPICAL CELLS, COMPATIBLE WITH RENAL CELL CARCINOMA (see comment) Signing Pathologist Direct Phone Line: [phone] The smears show few scattered atypical cells [...] cell carcinoma. Clinical and radiologic correlation is recommended.16221, 88066, 22669 x 2; 25759; 63692 6 cm right kidney massRIGHT KIDNEYMASS FNA AND CORE BIOPSYPrepared 6 direct smear slides and cell block(A3) using collodion bag from material collected in RPMI Core biopsy collected in formalin contained two white/red fragments measuring 0.8 cm each; one 0.4 cm red fragment; one mostly white 0.9 cm fragment, and three red ragged fragments measuring 0.2 cm each, submitted entirely in A2.Collected: [id number]: [id number] FEW CELLS SUSPICIOUS FOR RENAL CELL CARCINOMA (5:17PM, 11/28/2018, )The interpretation of this case included the use of immunohistochemistry or special stains. PAX-8 and CAM5.2Immunohistochemistry technical testing was performed at [facility], Pathology Laboratory where it was developed and [...] qualified to perform high complexity clinical laboratory testing.[facility], Department of Pathology, [address] [place] [address], IqfxtySt. [facility], [facility], [address] [place] [address], Tel YSt. [facility], Department of Pathology, [address] [place] [address], QMUP-GLUCOSE [id number] 17:10:00 Test Item Value Reference Range Comments POC-GLUCOSE METER (BEAKER) 153 mg/dL 70-110 TESTED AT [address] (test treo=6976) [place] [address] POCT-GLUCOSE [id number] 11:57:00 Test Item Value Reference Range Comments POC-GLUCOSE METER (BEAKER) 128 mg/dL 70-110 TESTED AT [address] (test rusj=4793) [place] [address] POCT-GLUCOSE [id number] 07:52:00 Test Item Value Reference Range Comments POC-GLUCOSE METER (BEAKER) 121 mg/dL 70-110 TESTED AT [address] (test wafi=7785) [place] [address] POCT-GLUCOSE [id number] 20:55:00 Test Item Value Reference Range Comments POC-GLUCOSE METER (BEAKER) 134 mg/dL 70-110 TESTED AT [address] (test tktc=8718) [place] [address] POCT-GLUCOSE [id number] 18:19:00 Test Item Value Reference Range Comments POC-GLUCOSE METER (BEAKER) 137 mg/dL 70-110 TESTED AT [address] (test waip=4423) [place] [address] POCT-GLUCOSE [id number] 11:33:00 Test Item Value Reference Range Comments POC-GLUCOSE METER (BEAKER) 188 mg/dL 70-110 TESTED AT [address] (test qimc=6908) [place] [address] POCT-GLUCOSE [id number] 07:44:00 Test Item Value Reference Range Comments POC-GLUCOSE METER (BEAKER) 143 mg/dL 70-110 TESTED AT [facility] [address] [facility] (test pnzt=0461) [facility] [address] POCT-GLUCOSE [id number] 21:19:00 Test Item Value Reference Range Comments POC-GLUCOSE METER (BEAKER) 156 mg/dL 70-110 TESTED AT [address] (test dlhy=0293) [facility] [address] POCT-GLUCOSE [id number] 19:08:00 Test Item Value Reference Range Comments POC-GLUCOSE METER (BEAKER) 175 mg/dL 70-110 TESTED AT [address] (test kahw=2505) [facility] [address] [id number] 15:34:00 Test Item Value Reference Range Comments PHOSPHORUS (BEAKER) (test jfeg=311) 2.3 mg/dL 2.3-4.7 [id number] 15:34:00 Test Item Value Reference Range Comments MAGNESIUM (BEAKER) (test htlo=327) 1.2 mg/dL 1.6-2.6 BASIC METABOLIC [id number] 15:34:00 Test Item Value Reference Range Comments SODIUM (BEAKER) (test 139 meq/L 136-145 bzxc=181) POTASSIUM (BEAKER) (test 3.8 meq/L 3.5-5.1 plhc=649) CHLORIDE (BEAKER) (test 110 meq/L 98-107 oidm=007) CO2 (BEAKER) (test 20 meq/L 22-29 uyts=611) BLOOD UREA NITROGEN 9 mg/dL 7-21 (BEAKER) (test plqj=771) CREATININE (BEAKER) (test 1.21 mg/dL 0.57-1.25 wabo=969) GLUCOSE RANDOM (BEAKER) 149 mg/dL 70-105 (test hjjn=315) CALCIUM (BEAKER) (test 8.8 mg/dL 8.4-10.2 niyg=679) EGFR (BEAKER) (test 58 mL/min/1.73 sq m ESTIMATED GFR IS NOT cvwd=8586) ACCURATE CREATININE CLEARANCE IN PREDICTING GLOMERULAR FILTRATION RATE. ESTIMATED GFR IS NOT APPLICABLE FOR DIALYSIS PATIENTS. HEMOGLOBIN AND [id number] 15:16:00 Test Item Value Reference Range Comments HEMOGLOBIN (BEAKER) (test ymuc=491) 8.9 GM/DL 13.7-17.5 HEMATOCRIT (BEAKER) (test sacy=443) 28.9 % 40.1-51.0 POCT-GLUCOSE [id number] 12:46:00 Test Item Value Reference Range Comments POC-GLUCOSE METER (BEAKER) 195 mg/dL 70-110 TESTED AT [address] (test kunq=1063) [place] [address] POCT-GLUCOSE [id number] 08:26:00 Test Item Value Reference Range Comments POC-GLUCOSE METER (BEAKER) 113 mg/dL 70-110 TESTED AT [address] (test rwoi=3521) [place] [address] HEMOGLOBIN AND [id number] 23:04:00 Test Item Value Reference Range Comments HEMOGLOBIN (BEAKER) (test uqvr=313) 9.2 GM/DL 13.7-17.5 HEMATOCRIT (BEAKER) (test epsb=161) 30.2 % 40.1-51.0 POCT-GLUCOSE [id number] 21:02:00 Test Item Value Reference Range Comments POC-GLUCOSE METER (BEAKER) 106 mg/dL 70-110 TESTED AT [address] (test abna=4494) [place] [address] POCT-GLUCOSE [id number] 18:35:00 Test Item Value Reference Range Comments POC-GLUCOSE METER (BEAKER) 128 mg/dL 70-110 TESTED AT [address] (test gicn=9775) [place] [address] U/S, BIOPSY, RENAL (KIDNEY)2018-11-28 17:54:00Reason for exam:->R sided kidney mass, biopsy neededFINAL REPORT Ultrasound guided fine-needle aspiration and core biopsy dated 11/28/2018 Procedure: Fine- needle aspiration and core biopsy of the right renal mass Pre-procedure diagnosis: Right renal mass Post-procedure diagnosis: Right renal mass Radiologist: Lurdes Fernandes MD Color Straining Bag Washer: None Sedation: Moderate sedation was administered. 1.5 [...] biopsy of the right renalmass. Signed: Lurdes Fernandesort Verified Date/Time: 11/28 17:54:55 Reading Location: [address] Ultrasound Reading Room U/S, ASPIRATION/[id number] 17:54:00Reason for exam:->R sided kidney mass , biopsy neededFINAL REPORT Ultrasound guided fine- needle aspiration and core biopsy dated 11/28/2018 Procedure: Fine-needle aspiration and core biopsy of the right renal mass Pre-procedure diagnosis: Right renal mass Post-procedure diagnosis: Right renal mass Radiologist: Lurdes Fernandes MD Color Straining Bag Washer: None Sedation: Moderate sedation was administered. 1.5 [...] of the right renalmass. Signed: Lurdes Fernandes MDRarturort Verified Date/Time: 11/28/2018 17:54: 55 Reading Location: [address] Ultrasound Reading Room POCT-GLUCOSE [id number] 12:01:00 Test Item Value Reference Range Comments POC-GLUCOSE METER (BEAKER) 133 mg/dL 70-110 TESTED AT [address] (test jjun=4740) [facility] [address] POCT-GLUCOSE [id number] 08:12:00 Test Item Value Reference Range Comments POC-GLUCOSE METER (BEAKER) 139 mg/dL 70-110 TESTED AT [address] (test luxv=1701) [facility] [address] CALCIUM, [id number] 07:20:00 Test Item Value Reference Range Comments CALCIUM IONIZED (BEAKER) (test kuss=181) 1.10 mmol/L 1.12-1.27 PH, BLOOD (BEAKER) (test apbc=3330) 7.40 BLOOD [id number] 07:01:00 Test Item Value Reference Range Comments CULTURE (BEAKER) (test rdhb=3250) No growth in 5 days [id number] 06:10:00 Test Item Value Reference Range Comments PHOSPHORUS (BEAKER) (test vxaz=990) 2.0 mg/dL 2.3-4.7 [id number] 06:10:00 Test Item Value Reference Range Comments MAGNESIUM (BEAKER) (test vxpj=445) 1.6 mg/dL 1.6-2.6 BASIC METABOLIC [id number] 06:10:00 Test Item Value Reference Range Comments SODIUM (BEAKER) (test 140 meq/L 136-145 digy=193) POTASSIUM (BEAKER) (test 3.8 meq/L 3.5-5.1 hqqt=234) CHLORIDE (BEAKER) (test 112 meq/L 98-107 sucw=184) CO2 (BEAKER) (test 19 meq/L 22-29 nsrw=588) BLOOD UREA NITROGEN 9 mg/dL 7-21 (BEAKER) (test uhzk=923) CREATININE (BEAKER) (test 1.08 mg/dL 0.57-1.25 stug=043) GLUCOSE RANDOM (BEAKER) 120 mg/dL 70-105 (test etgt=931) CALCIUM (BEAKER) (test 8.5 mg/dL 8.4-10.2 fnni=788) EGFR (BEAKER) (test 67 mL/min/1.73 sq m ESTIMATED GFR IS NOT ynkd=6775) ACCURATE CREATININE CLEARANCE IN PREDICTING GLOMERULAR FILTRATION RATE. ESTIMATED GFR IS NOT APPLICABLE FOR DIALYSIS PATIENTS. CBC W/PLT COUNT & AUTO [id number] 05:33:00 Test Item Value Reference Range Comments WHITE BLOOD CELL COUNT (BEAKER) (test mnen=478) 8.2 K/ L 3.5-10.5 RED BLOOD CELL COUNT (BEAKER) (test yidt=628) 3.68 M/ L 4.63-6.08 HEMOGLOBIN (BEAKER) (test lnxg=297) 9.4 GM/DL 13.7-17.5 HEMATOCRIT (BEAKER) (test wyfb=227) 31.1 % 40.1-51.0 MEAN CORPUSCULAR VOLUME (BEAKER) (test cqfj=209) 84.5 fL 79.0-92.2 MEAN CORPUSCULAR HEMOGLOBIN (BEAKER) (test 25.5 pg 25.7-32.2 ttnl=096) MEAN CORPUSCULAR HEMOGLOBIN CONC (BEAKER) (test 30.2 GM/DL 32.3-36.5 rsli=386) RED CELL DISTRIBUTION WIDTH (BEAKER) (test 22.4 % 11.6-14.4 ethu=163) PLATELET COUNT (BEAKER) (test dcbi=078) 274 K/CU MM 150-450 MEAN PLATELET VOLUME (BEAKER) (test wmdc=184) 9.9 fL 9.4-12.4 NUCLEATED RED BLOOD CELLS (BEAKER) (test 0 /100 WBC 0-0 ygag=747) NEUTROPHILS RELATIVE PERCENT (BEAKER) (test 59 % asin=198) LYMPHOCYTES RELATIVE PERCENT (BEAKER) (test 28 % jrdt=131) MONOCYTES RELATIVE PERCENT (BEAKER) (test 6 % hpks=436) EOSINOPHILS RELATIVE PERCENT (BEAKER) (test 5 % hyle=292) BASOPHILS RELATIVE PERCENT (BEAKER) (test 1 % cbcd=965) NEUTROPHILS ABSOLUTE COUNT (BEAKER) (test 4.80 K/ L 1.78-5.38 jzvi=584) LYMPHOCYTES ABSOLUTE COUNT (BEAKER) (test 2.30 K/ L 1.32-3.57 buak=710) MONOCYTES ABSOLUTE COUNT (BEAKER) (test 0.52 K/ L 0.30-0.82 ldum=203) EOSINOPHILS ABSOLUTE COUNT (BEAKER) (test 0.39 K/ L 0.04-0.54 bhum=722) BASOPHILS ABSOLUTE COUNT (BEAKER) (test 0.05 K/ L 0.01-0.08 nrnb=576) IMMATURE GRANULOCYTES-RELATIVE PERCENT (BEAKER) 1 % 0-1 (test lxin=8935) POCT-GLUCOSE [id number] 22:53:00 Test Item Value Reference Range Comments POC-GLUCOSE METER (BEAKER) 105 mg/dL 70-110 TESTED AT [address] (test hmxn=9482) [facility] [id number] BLOOD [id number] 19:01:00 Test Item Value Reference Range Comments CULTURE (BEAKER) (test iaxe=8628) No growth in 5 days POCT-GLUCOSE [id number] 16:46:00 Test Item Value Reference Range Comments POC-GLUCOSE METER (BEAKER) 120 mg/dL 70-110 TESTED AT [address] (test ocpu=4227) [facility] [address] POCT-GLUCOSE [id number] 12:49:00 Test Item Value Reference Range Comments POC-GLUCOSE METER (BEAKER) 140 mg/dL 70-110 TESTED AT [address] (test hdie=0511) [facility] [address] POCT-GLUCOSE [id number] 08:33:00 Test Item Value Reference Range Comments POC-GLUCOSE METER (BEAKER) 138 mg/dL 70-110 TESTED AT [address] (test udjw=6530) [facility] [address] CALCIUM, [id number] 07:28:00 Test Item Value Reference Range Comments CALCIUM IONIZED (BEAKER) (test jcwq=740) 1.10 mmol/L 1.12-1.27 PH, BLOOD (BEAKER) (test rnbe=7063) 7.39 [id number] 06:54:00 Test Item Value Reference Range Comments PHOSPHORUS (BEAKER) (test eqhz=925) 2.3 mg/dL 2.3-4.7 [id number] 06:54:00 Test Item Value Reference Range Comments MAGNESIUM (BEAKER) (test zlxg=486) 1.7 mg/dL 1.6-2.6 BASIC METABOLIC [id number] 06:54:00 Test Item Value Reference Range Comments SODIUM (BEAKER) (test 140 meq/L 136-145 xzyq=878) POTASSIUM (BEAKER) (test 3.7 meq/L 3.5-5.1 iqaf=614) CHLORIDE (BEAKER) (test 112 meq/L 98-107 eqyz=519) CO2 (BEAKER) (test 19 meq/L 22-29 ckzi=775) BLOOD UREA NITROGEN 10 mg/dL 7-21 (BEAKER) (test sodv=545) CREATININE (BEAKER) (test 1.05 mg/dL 0.57-1.25 zvkr=000) GLUCOSE RANDOM (BEAKER) 112 mg/dL 70-105 (test hpvc=937) CALCIUM (BEAKER) (test 8.6 mg/dL 8.4-10.2 uoir=704) EGFR (BEAKER) (test 69 mL/min/1.73 sq m ESTIMATED GFR IS NOT xgtr=8748) ACCURATE CREATININE CLEARANCE IN PREDICTING GLOMERULAR FILTRATION RATE. ESTIMATED GFR IS NOT APPLICABLE FOR DIALYSIS PATIENTS. CBC W/PLT COUNT & AUTO [id number] 06:50:00 Test Item Value Reference Range Comments WHITE BLOOD CELL COUNT (BEAKER) (test qavk=796) 8.4 K/ L 3.5-10.5 RED BLOOD CELL COUNT (BEAKER) (test qtmm=708) 3.42 M/ L 4.63-6.08 HEMOGLOBIN (BEAKER) (test xrqv=707) 8.7 GM/DL 13.7-17.5 HEMATOCRIT (BEAKER) (test dwps=986) 28.7 % 40.1-51.0 MEAN CORPUSCULAR VOLUME (BEAKER) (test cvlv=723) 83.9 fL 79.0-92.2 MEAN CORPUSCULAR HEMOGLOBIN (BEAKER) (test 25.4 pg 25.7-32.2 drca=560) MEAN CORPUSCULAR HEMOGLOBIN CONC (BEAKER) (test 30.3 GM/DL 32.3-36.5 stnl=102) RED CELL DISTRIBUTION WIDTH (BEAKER) (test 21.6 % 11.6-14.4 awtm=640) PLATELET COUNT (BEAKER) (test nksi=605) 234 K/CU MM 150-450 MEAN PLATELET VOLUME (BEAKER) (test avdk=912) 10.1 fL 9.4-12.4 NUCLEATED RED BLOOD CELLS (BEAKER) (test 0 /100 WBC 0-0 dbmw=035) NEUTROPHILS RELATIVE PERCENT (BEAKER) (test 62 % ctae=908) LYMPHOCYTES RELATIVE PERCENT (BEAKER) (test 25 % iqpb=980) MONOCYTES RELATIVE PERCENT (BEAKER) (test 6 % repv=985) EOSINOPHILS RELATIVE PERCENT (BEAKER) (test 6 % vhak=441) BASOPHILS RELATIVE PERCENT (BEAKER) (test 1 % kigc=745) NEUTROPHILS ABSOLUTE COUNT (BEAKER) (test 5.21 K/ L 1.78-5.38 iigy=708) LYMPHOCYTES ABSOLUTE COUNT (BEAKER) (test 2.11 K/ L 1.32-3.57 uuwj=211) MONOCYTES ABSOLUTE COUNT (BEAKER) (test 0.49 K/ L 0.30-0.82 wewx=814) EOSINOPHILS ABSOLUTE COUNT (BEAKER) (test 0.46 K/ L 0.04-0.54 tzrw=541) BASOPHILS ABSOLUTE COUNT (BEAKER) (test 0.06 K/ L 0.01-0.08 hpzr=159) IMMATURE GRANULOCYTES-RELATIVE PERCENT (BEAKER) 1 % 0-1 (test glng=1554) POCT-GLUCOSE [id number] 21:25:00 Test Item Value Reference Range Comments POC-GLUCOSE METER (BEAKER) 118 mg/dL 70-110 TESTED AT [address] (test pxpx=7048) [place] [address] POCT-GLUCOSE [id number] 17:54:00 Test Item Value Reference Range Comments POC-GLUCOSE METER (BEAKER) 138 mg/dL 70-110 TESTED AT [address] (test cmde=3081) [place] [address] [id number] 11:52:00 Test Item Value Reference Range Comments PHOSPHORUS (BEAKER) (test iqbj=054) 1.5 mg/dL 2.3-4.7 [id number] 11:42:00 Test Item Value Reference Range Comments MAGNESIUM (BEAKER) (test umtb=264) 1.7 mg/dL 1.6-2.6 BASIC METABOLIC [id number] 11:42:00 Test Item Value Reference Range Comments SODIUM (BEAKER) (test 141 meq/L 136-145 npmo=065) POTASSIUM (BEAKER) (test 3.6 meq/L 3.5-5.1 emxj=920) CHLORIDE (BEAKER) (test 114 meq/L 98-107 wuop=650) CO2 (BEAKER) (test 20 meq/L 22-29 temp=733) BLOOD UREA NITROGEN 13 mg/dL 7-21 (BEAKER) (test eoft=397) CREATININE (BEAKER) (test 1.27 mg/dL 0.57-1.25 rqjv=401) GLUCOSE RANDOM (BEAKER) 135 mg/dL 70-105 (test hfxc=147) CALCIUM (BEAKER) (test 8.7 mg/dL 8.4-10.2 rtng=659) EGFR (BEAKER) (test 55 mL/min/1.73 sq m ESTIMATED GFR IS NOT jwnq=0783) ACCURATE CREATININE CLEARANCE IN PREDICTING GLOMERULAR FILTRATION RATE. ESTIMATED GFR IS NOT APPLICABLE FOR DIALYSIS PATIENTS. [id number] 11:41:00 Test Item Value Reference Range Comments PROTIME (BEAKER) (test lnvt=658) 16.7 seconds 11.7-14.7 INR (BEAKER) (test tqut=669) 1.3 <=5.9 PARTIAL THROMBOPLASTIN TIME (BEAKER) (test 48.5 seconds 22.5-36.0 ievk=720) RECOMMENDED COUMADIN/WARFARIN INR THERAPY RANGESSTANDARD DOSE: 2.0 - 3.0 Includes: PROPHYLAXIS forvenous thrombosis, systemic embolization; TREATMENT for venous thrombosis and/or pulmonary embolus.HIGH RISK: Target INR is 2.5-3.5 for patients with mechanical heart valves.MRSA [id number] 11:31:00 Test Item Value Reference Range Comments CULTURE (BEAKER) (test prqe=7991) No MRSA isolated CBC (HEMOGRAM ONLY)2018-11-26 11:28:00 Test Item Value Reference Range Comments WHITE BLOOD CELL COUNT (BEAKER) (test qvvx=113) 7.1 K/ L 3.5-10.5 RED BLOOD CELL COUNT (BEAKER) (test hfhz=989) 3.36 M/ L 4.63-6.08 HEMOGLOBIN (BEAKER) (test ttqm=738) 8.5 GM/DL 13.7-17.5 HEMATOCRIT (BEAKER) (test qskd=133) 28.4 % 40.1-51.0 MEAN CORPUSCULAR VOLUME (BEAKER) (test lpnw=928) 84.5 fL 79.0-92.2 MEAN CORPUSCULAR HEMOGLOBIN (BEAKER) (test 25.3 pg 25.7-32.2 jaof=421) MEAN CORPUSCULAR HEMOGLOBIN CONC (BEAKER) (test 29.9 GM/DL 32.3-36.5 feqk=937) RED CELL DISTRIBUTION WIDTH (BEAKER) (test 21.6 % 11.6-14.4 mxxs=518) PLATELET COUNT (BEAKER) (test hftv=164) 214 K/CU MM 150-450 MEAN PLATELET VOLUME (BEAKER) (test rsnx=949) 9.6 fL 9.4-12.4 NUCLEATED RED BLOOD CELLS (BEAKER) (test 0 /100 WBC 0-0 loxu=943) POCT-GLUCOSE [id number] 07:38:00 Test Item Value Reference Range Comments POC-GLUCOSE METER (BEAKER) 174 mg/dL 70-110 TESTED AT [address] (test wfky=6164) [place] [id number] POCT-GLUCOSE [id number] 20:27:00 Test Item Value Reference Range Comments POC-GLUCOSE METER (BEAKER) 199 mg/dL 70-110 TESTED AT [address] (test jxpu=4937) [place] [address] POCT-GLUCOSE [id number] 17:55:00 Test Item Value Reference Range Comments POC-GLUCOSE METER (BEAKER) 196 mg/dL 70-110 TESTED AT [address] (test rplz=0644) [place] [id number] POCT-GLUCOSE [id number] 11:56:00 Test Item Value Reference Range Comments POC-GLUCOSE METER (BEAKER) 209 mg/dL 70-110 TESTED AT [address] (test wazu=0914) [place] [id number] KIDNEY IMAGING, SINGLE, FLOW/[id number] 11:35:00FINAL REPORT PROCEDURE: Functional RENAL SCAN, flow and function CPT CODE: [id number] INDICATION: R rcca, eval differential renal function, [...] Verified Date/Time: 11/25/2018 11:35:45 Reading Location : [address] Reading Room [id number] 10:00:00 Test Item Value Reference Range Comments PHOSPHORUS (BEAKER) (test zuhq=512) 1.7 mg/dL 2.3-4.7 [id number] 10:00:00 Test Item Value Reference Range Comments MAGNESIUM (BEAKER) (test fnxy=232) 2.0 mg/dL 1.6-2.6 BASIC METABOLIC [id number] 10:00:00 Test Item Value Reference Range Comments SODIUM (BEAKER) (test 141 meq/L 136-145 pwwc=699) POTASSIUM (BEAKER) (test 3.5 meq/L 3.5-5.1 qfow=152) CHLORIDE (BEAKER) (test 113 meq/L 98-107 aebo=450) CO2 (BEAKER) (test 22 meq/L 22-29 mjzo=837) BLOOD UREA NITROGEN 20 mg/dL 7-21 (BEAKER) (test elbm=380) CREATININE (BEAKER) (test 1.50 mg/dL 0.57-1.25 tjsl=718) GLUCOSE RANDOM (BEAKER) 164 mg/dL 70-105 (test uzyl=302) CALCIUM (BEAKER) (test 8.9 mg/dL 8.4-10.2 azbo=324) EGFR (BEAKER) (test 46 mL/min/1.73 sq m ESTIMATED GFR IS NOT ifjy=4499) ACCURATE CREATININE CLEARANCE IN PREDICTING GLOMERULAR FILTRATION RATE. ESTIMATED GFR IS NOT APPLICABLE FOR DIALYSIS PATIENTS. CBC W/PLT COUNT & AUTO [id number] 10:00:00 Test Item Value Reference Range Comments WHITE BLOOD CELL COUNT (BEAKER) (test rtyh=508) 7.6 K/ L 3.5-10.5 RED BLOOD CELL COUNT (BEAKER) (test bysw=992) 3.58 M/ L 4.63-6.08 HEMOGLOBIN (BEAKER) (test ugmt=559) 9.0 GM/DL 13.7-17.5 HEMATOCRIT (BEAKER) (test vdrv=016) 30.4 % 40.1-51.0 MEAN CORPUSCULAR VOLUME (BEAKER) (test hfnh=966) 84.9 fL 79.0-92.2 MEAN CORPUSCULAR HEMOGLOBIN (BEAKER) (test 25.1 pg 25.7-32.2 xgoc=136) MEAN CORPUSCULAR HEMOGLOBIN CONC (BEAKER) (test 29.6 GM/DL 32.3-36.5 kfhu=537) RED CELL DISTRIBUTION WIDTH (BEAKER) (test 22.0 % 11.6-14.4 xmzq=149) PLATELET COUNT (BEAKER) (test ehgg=472) 252 K/CU MM 150-450 MEAN PLATELET VOLUME (BEAKER) (test qwlm=443) 10.5 fL 9.4-12.4 NUCLEATED RED BLOOD CELLS (BEAKER) (test 0 /100 WBC 0-0 rlco=247) NEUTROPHILS RELATIVE PERCENT (BEAKER) (test 61 % ykwf=945) LYMPHOCYTES RELATIVE PERCENT (BEAKER) (test 25 % thfo=890) MONOCYTES RELATIVE PERCENT (BEAKER) (test 6 % xyhz=773) EOSINOPHILS RELATIVE PERCENT (BEAKER) (test 7 % cpyo=208) BASOPHILS RELATIVE PERCENT (BEAKER) (test 1 % ubir=703) NEUTROPHILS ABSOLUTE COUNT (BEAKER) (test 4.69 K/ L 1.78-5.38 wwer=684) LYMPHOCYTES ABSOLUTE COUNT (BEAKER) (test 1.88 K/ L 1.32-3.57 nobp=313) MONOCYTES ABSOLUTE COUNT (BEAKER) (test 0.45 K/ L 0.30-0.82 fwpq=414) EOSINOPHILS ABSOLUTE COUNT (BEAKER) (test 0.55 K/ L 0.04-0.54 qgsg=540) BASOPHILS ABSOLUTE COUNT (BEAKER) (test 0.05 K/ L 0.01-0.08 izsi=861) IMMATURE GRANULOCYTES-RELATIVE PERCENT (BEAKER) 0 % 0-1 (test deek=4063) CALCIUM, [id number] 09:39:00 Test Item Value Reference Range Comments CALCIUM IONIZED (BEAKER) (test syqc=614) 1.12 mmol/L 1.12-1.27 PH, BLOOD (BEAKER) (test iyxh=8295) 7.33 POCT-GLUCOSE [id number] 07:56:00 Test Item Value Reference Range Comments POC-GLUCOSE METER (BEAKER) 186 mg/dL 70-110 TESTED AT [address] (test lkqv=9762) [place] [id number] POCT-GLUCOSE [id number] 20:37:00 Test Item Value Reference Range Comments POC-GLUCOSE METER (BEAKER) 225 mg/dL 70-110 TESTED AT [address] (test ukny=2173) [place] [id number] POCT-GLUCOSE [id number] 18:21:00 Test Item Value Reference Range Comments POC-GLUCOSE METER (BEAKER) 234 mg/dL 70-110 TESTED AT [address] (test vczg=5439) [facility] [address] PUL PERF IMAGING, PARTIC, [id number] 12:25:00FINAL REPORT PROCEDURE: V/Q LUNG SCAN CPT CODE: [id number] INDICATION: Acute chest pain PROTOCOL: 10.7 mCi [...] Verified Date/Time: 11/24/2018 12: 25:50 Reading Location: [address] [facility] Reading Room POCT- GLUCOSE [id number] 11:33:00 Test Item Value Reference Range Comments POC-GLUCOSE METER (BEAKER) 220 mg/dL 70-110 TESTED AT [facility] [address] [facility] (test sprl=2165) [facility] [address] CELIAC DISEASE [id number] 09:20:00 Test Item Value Reference Range Comments SCAN RESULT (test ycvv=[id number]) CELIAC DISEASE PROFILE Refer to Celiac Disease AUTOVERIFICATION (QUEST) (test Panel results. brbw=[id number]) POCT-GLUCOSE [id number] 07:46:00 Test Item Value Reference Range Comments POC-GLUCOSE METER (BEAKER) 162 mg/dL 70-110 TESTED AT [place] [id number] [facility] (test dtno=4976) [facility] [address] CALCIUM, [id number] 07:34:00 Test Item Value Reference Range Comments CALCIUM IONIZED (BEAKER) (test tshp=860) 1.09 mmol/L 1.12-1.27 PH, BLOOD (BEAKER) (test uehk=6063) 7.44 [id number] 06:31:00 Test Item Value Reference Range Comments PHOSPHORUS (BEAKER) (test qcla=542) 2.6 mg/dL 2.3-4.7 [id number] 06:31:00 Test Item Value Reference Range Comments MAGNESIUM (BEAKER) (test kcoq=590) 1.8 mg/dL 1.6-2.6 COMPREHENSIVE METABOLIC [id number] 06:31:00 Test Item Value Reference Range Comments TOTAL PROTEIN (BEAKER) 5.7 gm/dL 6.0-8.3 (test zudy=505) ALBUMIN (BEAKER) (test 3.0 g/dL 3.5-5.0 xado=2600) ALKALINE PHOSPHATASE 50 U/L 40-150 (BEAKER) (test chxm=990) BILIRUBIN TOTAL (BEAKER) 0.4 mg/dL 0.2-1.2 (test ynrd=304) SODIUM (BEAKER) (test 141 meq/L 136-145 ialu=512) POTASSIUM (BEAKER) (test 3.0 meq/L 3.5-5.1 ndwm=540) CHLORIDE (BEAKER) (test 112 meq/L 98-107 zxox=287) CO2 (BEAKER) (test 19 meq/L 22-29 egle=718) BLOOD UREA NITROGEN 28 mg/dL 7-21 (BEAKER) (test kxhz=794) CREATININE (BEAKER) (test 1.65 mg/dL 0.57-1.25 wvbj=115) GLUCOSE RANDOM (BEAKER) 132 mg/dL 70-105 (test gvea=693) CALCIUM (BEAKER) (test 8.5 mg/dL 8.4-10.2 rdkh=368) AST (SGOT) (BEAKER) (test 8 U/L 5-34 zupj=448) ALT (SGPT) (BEAKER) (test 8 U/L 6-55 ldre=169) EGFR (BEAKER) (test 41 mL/min/1.73 sq m ESTIMATED GFR IS NOT jgwl=1199) ACCURATE CREATININE CLEARANCE IN PREDICTING GLOMERULAR FILTRATION RATE. ESTIMATED GFR IS NOT APPLICABLE FOR DIALYSIS PATIENTS. VANCOMYCIN LEVEL, [id number] 06:19:00 Test Item Value Reference Range Comments VANCOMYCIN TROUGH (BEAKER) (test lxbz=421) 17.7 ug/mL 10.0-20.0 Hold dose if trough >20 mcg/mlCBC W/PLT COUNT & AUTO [id number] 06:10:00 Test Item Value Reference Range Comments WHITE BLOOD CELL COUNT (BEAKER) (test evdi=272) 12.2 K/ L 3.5-10.5 RED BLOOD CELL COUNT (BEAKER) (test znmd=594) 3.03 M/ L 4.63-6.08 HEMOGLOBIN (BEAKER) (test yepi=241) 7.8 GM/DL 13.7-17.5 HEMATOCRIT (BEAKER) (test fxzf=127) 25.8 % 40.1-51.0 MEAN CORPUSCULAR VOLUME (BEAKER) (test zmlu=887) 85.1 fL 79.0-92.2 MEAN CORPUSCULAR HEMOGLOBIN (BEAKER) (test 25.7 pg 25.7-32.2 zins=356) MEAN CORPUSCULAR HEMOGLOBIN CONC (BEAKER) (test 30.2 GM/DL 32.3-36.5 ofya=984) RED CELL DISTRIBUTION WIDTH (BEAKER) (test 22.2 % 11.6-14.4 wsye=767) PLATELET COUNT (BEAKER) (test lsdz=369) 204 K/CU MM 150-450 MEAN PLATELET VOLUME (BEAKER) (test kwzb=919) 10.5 fL 9.4-12.4 NUCLEATED RED BLOOD CELLS (BEAKER) (test 0 /100 WBC 0-0 jgul=526) NEUTROPHILS RELATIVE PERCENT (BEAKER) (test 74 % ibgb=266) LYMPHOCYTES RELATIVE PERCENT (BEAKER) (test 15 % sede=640) MONOCYTES RELATIVE PERCENT (BEAKER) (test 6 % zfww=784) EOSINOPHILS RELATIVE PERCENT (BEAKER) (test 5 % fvtn=951) BASOPHILS RELATIVE PERCENT (BEAKER) (test 0 % oiyw=144) NEUTROPHILS ABSOLUTE COUNT (BEAKER) (test 9.02 K/ L 1.78-5.38 bbfk=289) LYMPHOCYTES ABSOLUTE COUNT (BEAKER) (test 1.85 K/ L 1.32-3.57 vtgf=795) MONOCYTES ABSOLUTE COUNT (BEAKER) (test 0.67 K/ L 0.30-0.82 raoz=390) EOSINOPHILS ABSOLUTE COUNT (BEAKER) (test 0.58 K/ L 0.04-0.54 pzpe=643) BASOPHILS ABSOLUTE COUNT (BEAKER) (test 0.03 K/ L 0.01-0.08 jabp=938) IMMATURE GRANULOCYTES-RELATIVE PERCENT (BEAKER) 1 % 0-1 (test igbw=3583) POCT-GLUCOSE [id number] 21:24:00 Test Item Value Reference Range Comments POC-GLUCOSE METER (BEAKER) 227 mg/dL 70-110 TESTED AT [address] (test eaom=8222) [facility] [address] POCT-GLUCOSE [id number] 17:44:00 Test Item Value Reference Range Comments POC-GLUCOSE METER (BEAKER) 257 mg/dL 70-110 TESTED AT [address] (test kfta=8393) [place] [id number] POCT-GLUCOSE [id number] 11:33:00 Test Item Value Reference Range Comments POC-GLUCOSE METER (BEAKER) 297 mg/dL 70-110 TESTED AT [address] (test ykuu=7432) [place] [id number] POCT-GLUCOSE [id number] 07:49:00 Test Item Value Reference Range Comments POC-GLUCOSE METER (BEAKER) 185 mg/dL 70-110 TESTED AT [facility] [address] (test soem=7778) [place] [address] CALCIUM, [id number] 07:30:00 Test Item Value Reference Range Comments CALCIUM IONIZED (BEAKER) (test mwwu=259) 1.05 mmol/L 1.12-1.27 PH, BLOOD (BEAKER) (test ciqb=5630) 7.45 [id number] 06:25:00 Test Item Value Reference Range Comments PHOSPHORUS (BEAKER) (test dstg=616) 2.8 mg/dL 2.3-4.7 [id number] 06:25:00 Test Item Value Reference Range Comments MAGNESIUM (BEAKER) (test ykob=255) 1.7 mg/dL 1.6-2.6 COMPREHENSIVE METABOLIC [id number] 06:25:00 Test Item Value Reference Range Comments TOTAL PROTEIN (BEAKER) 5.7 gm/dL 6.0-8.3 (test ztqc=606) ALBUMIN (BEAKER) (test 3.1 g/dL 3.5-5.0 qatk=7140) ALKALINE PHOSPHATASE 62 U/L 40-150 (BEAKER) (test lokd=741) BILIRUBIN TOTAL (BEAKER) 0.7 mg/dL 0.2-1.2 (test nfcw=376) SODIUM (BEAKER) (test 136 meq/L 136-145 caho=970) POTASSIUM (BEAKER) (test 3.2 meq/L 3.5-5.1 udkk=722) CHLORIDE (BEAKER) (test 108 meq/L 98-107 ydxk=665) CO2 (BEAKER) (test 18 meq/L 22-29 ztex=512) BLOOD UREA NITROGEN 28 mg/dL 7-21 (BEAKER) (test mxgs=309) CREATININE (BEAKER) (test 2.10 mg/dL 0.57-1.25 hkmw=718) GLUCOSE RANDOM (BEAKER) 156 mg/dL 70-105 (test ijfz=091) CALCIUM (BEAKER) (test 8.4 mg/dL 8.4-10.2 kvuk=240) AST (SGOT) (BEAKER) (test 7 U/L 5-34 hevj=545) ALT (SGPT) (BEAKER) (test 7 U/L 6-55 himb=333) EGFR (BEAKER) (test 31 mL/min/1.73 sq m ESTIMATED GFR IS NOT kiym=5193) ACCURATE CREATININE CLEARANCE IN PREDICTING GLOMERULAR FILTRATION RATE. ESTIMATED GFR IS NOT APPLICABLE FOR DIALYSIS PATIENTS. B-TYPE NATRIURETIC FACTOR (BNP)2018-11-23 06:20:00 Test Item Value Reference Range Comments B-TYPE NATRIURETIC PEPTIDE (BEAKER) (test 157 pg/mL 0-100 wrnk=962) CBC W/PLT COUNT & AUTO [id number] 05:56:00 Test Item Value Reference Range Comments WHITE BLOOD CELL COUNT (BEAKER) (test tvaj=762) 17.8 K/ L 3.5-10.5 RED BLOOD CELL COUNT (BEAKER) (test qpho=857) 3.25 M/ L 4.63-6.08 HEMOGLOBIN (BEAKER) (test wwqe=719) 8.3 GM/DL 13.7-17.5 HEMATOCRIT (BEAKER) (test vvug=652) 27.1 % 40.1-51.0 MEAN CORPUSCULAR VOLUME (BEAKER) (test yzbk=359) 83.4 fL 79.0-92.2 MEAN CORPUSCULAR HEMOGLOBIN (BEAKER) (test 25.5 pg 25.7-32.2 djsz=517) MEAN CORPUSCULAR HEMOGLOBIN CONC (BEAKER) (test 30.6 GM/DL 32.3-36.5 dyse=070) RED CELL DISTRIBUTION WIDTH (BEAKER) (test 22.4 % 11.6-14.4 xubb=101) PLATELET COUNT (BEAKER) (test pfpp=412) 198 K/CU MM 150-450 MEAN PLATELET VOLUME (BEAKER) (test zeih=221) 10.1 fL 9.4-12.4 NUCLEATED RED BLOOD CELLS (BEAKER) (test 0 /100 WBC 0-0 lmcg=238) NEUTROPHILS RELATIVE PERCENT (BEAKER) (test 82 % lwsy=984) LYMPHOCYTES RELATIVE PERCENT (BEAKER) (test 10 % xchl=538) MONOCYTES RELATIVE PERCENT (BEAKER) (test 6 % rhlb=453) EOSINOPHILS RELATIVE PERCENT (BEAKER) (test 1 % dowh=594) BASOPHILS RELATIVE PERCENT (BEAKER) (test 0 % bqes=147) NEUTROPHILS ABSOLUTE COUNT (BEAKER) (test 14.60 K/ L 1.78-5.38 xniw=203) LYMPHOCYTES ABSOLUTE COUNT (BEAKER) (test 1.71 K/ L 1.32-3.57 kqnp=475) MONOCYTES ABSOLUTE COUNT (BEAKER) (test 1.03 K/ L 0.30-0.82 kmec=801) EOSINOPHILS ABSOLUTE COUNT (BEAKER) (test 0.22 K/ L 0.04-0.54 jdun=142) BASOPHILS ABSOLUTE COUNT (BEAKER) (test 0.03 K/ L 0.01-0.08 bxfw=271) IMMATURE GRANULOCYTES-RELATIVE PERCENT (BEAKER) 1 % 0-1 (test atlv=3940) CT, CHEST, WITHOUT [id number] 04:37:00Replaces exam w contrastFINAL REPORT EXAMINATION: Noncontrast [...] MDReport Verified Date/Time: 2018 04:37:26 Reading Location: [address] Reading Room LACTIC ACID , VENOUS, WHOLE [id number] 00:50:00 Test Item Value Reference Range Comments LACTATE BLOOD VENOUS (2) (BEAKER) (test 2.3 mmol/L 0.5-2.2 ihek=2892) CBC W/PLT COUNT & AUTO [id number] 00:34:00 Test Item Value Reference Range Comments WHITE BLOOD CELL COUNT (BEAKER) (test hqdn=290) 19.5 K/ L 3.5-10.5 RED BLOOD CELL COUNT (BEAKER) (test ftns=643) 3.63 M/ L 4.63-6.08 HEMOGLOBIN (BEAKER) (test syyv=370) 9.1 GM/DL 13.7-17.5 HEMATOCRIT (BEAKER) (test ngvo=902) 31.0 % 40.1-51.0 MEAN CORPUSCULAR VOLUME (BEAKER) (test dqpt=667) 85.4 fL 79.0-92.2 MEAN CORPUSCULAR HEMOGLOBIN (BEAKER) (test 25.1 pg 25.7-32.2 wpqm=112) MEAN CORPUSCULAR HEMOGLOBIN CONC (BEAKER) (test 29.4 GM/DL 32.3-36.5 relt=411) RED CELL DISTRIBUTION WIDTH (BEAKER) (test 22.2 % 11.6-14.4 uzau=113) PLATELET COUNT (BEAKER) (test cogw=867) 218 K/CU MM 150-450 MEAN PLATELET VOLUME (BEAKER) (test rcdz=086) 10.1 fL 9.4-12.4 NUCLEATED RED BLOOD CELLS (BEAKER) (test 0 /100 WBC 0-0 xchf=300) NEUTROPHILS RELATIVE PERCENT (BEAKER) (test 84 % epzn=509) LYMPHOCYTES RELATIVE PERCENT (BEAKER) (test 7 % lcha=486) MONOCYTES RELATIVE PERCENT (BEAKER) (test 6 % ewtr=445) EOSINOPHILS RELATIVE PERCENT (BEAKER) (test 1 % cksy=238) BASOPHILS RELATIVE PERCENT (BEAKER) (test 0 % hsxm=632) NEUTROPHILS ABSOLUTE COUNT (BEAKER) (test 16.28 K/ L 1.78-5.38 nals=439) LYMPHOCYTES ABSOLUTE COUNT (BEAKER) (test 1.41 K/ L 1.32-3.57 mnbh=054) MONOCYTES ABSOLUTE COUNT (BEAKER) (test 1.16 K/ L 0.30-0.82 zokk=459) EOSINOPHILS ABSOLUTE COUNT (BEAKER) (test 0.18 K/ L 0.04-0.54 bkkw=910) BASOPHILS ABSOLUTE COUNT (BEAKER) (test 0.06 K/ L 0.01-0.08 rlhm=099) IMMATURE GRANULOCYTES-RELATIVE PERCENT (BEAKER) 2 % 0-1 (test bski=2740) POCT-GLUCOSE [id number] 21:22:00 Test Item Value Reference Range Comments POC-GLUCOSE METER (BEAKER) 308 mg/dL 70-110 Will Repeat Test/TESTED AT (test aazx=1560) [place] [id number] POCT-GLUCOSE [id number] 17:17:00 Test Item Value Reference Range Comments POC-GLUCOSE METER (BEAKER) 274 mg/dL 70-110 TESTED AT [address] (test aojh=9260) [place] [address] POCT-GLUCOSE [id number] 11:42:00 Test Item Value Reference Range Comments POC-GLUCOSE METER (BEAKER) 221 mg/dL 70-110 TESTED AT [address] (test whnj=9448) [place] [address] POCT-GLUCOSE [id number] 07:49:00 Test Item Value Reference Range Comments POC-GLUCOSE METER (BEAKER) 211 mg/dL 70-110 TESTED AT [address] (test xuxy=5811) [place] [address] [id number] 07:40:00 Test Item Value Reference Range Comments MAGNESIUM (BEAKER) (test wihd=036) 1.9 mg/dL 1.6-2.6 COMPREHENSIVE METABOLIC [id number] 07:40:00 Test Item Value Reference Range Comments TOTAL PROTEIN (BEAKER) 6.0 gm/dL 6.0-8.3 (test uxya=327) ALBUMIN (BEAKER) (test 3.4 g/dL 3.5-5.0 rarl=1269) ALKALINE PHOSPHATASE 51 U/L 40-150 (BEAKER) (test ibks=799) BILIRUBIN TOTAL (BEAKER) 0.5 mg/dL 0.2-1.2 (test vhxg=484) SODIUM (BEAKER) (test 137 meq/L 136-145 iyof=318) POTASSIUM (BEAKER) (test 3.5 meq/L 3.5-5.1 unag=009) CHLORIDE (BEAKER) (test 109 meq/L 98-107 ised=924) CO2 (BEAKER) (test 19 meq/L 22-29 xxug=414) BLOOD UREA NITROGEN 16 mg/dL 7-21 (BEAKER) (test rmnt=832) CREATININE (BEAKER) (test 1.70 mg/dL 0.57-1.25 xtnz=497) GLUCOSE RANDOM (BEAKER) 184 mg/dL 70-105 (test phbx=026) CALCIUM (BEAKER) (test 8.7 mg/dL 8.4-10.2 biqh=951) AST (SGOT) (BEAKER) (test 9 U/L 5-34 kcse=008) ALT (SGPT) (BEAKER) (test 7 U/L 6-55 yrvw=390) EGFR (BEAKER) (test 39 mL/min/1.73 sq m ESTIMATED GFR IS NOT cfhr=9958) ACCURATE CREATININE CLEARANCE IN PREDICTING GLOMERULAR FILTRATION RATE. ESTIMATED GFR IS NOT APPLICABLE FOR DIALYSIS PATIENTS. [id number] 06:10:00 Test Item Value Reference Range Comments PHOSPHORUS (BEAKER) (test vxnf=317) 2.3 mg/dL 2.3-4.7 CALCIUM, [id number] 05:39:00 Test Item Value Reference Range Comments CALCIUM IONIZED (BEAKER) (test ssfm=865) 1.09 mmol/L 1.12-1.27 PH, BLOOD (BEAKER) (test jnoz=2953) 7.47 COMPREHENSIVE METABOLIC [id number] 23:05:00 Test Item Value Reference Range Comments TOTAL PROTEIN (BEAKER) 6.4 gm/dL 6.0-8.3 (test cblv=336) ALBUMIN (BEAKER) (test 3.6 g/dL 3.5-5.0 pwbz=2996) ALKALINE PHOSPHATASE 60 U/L 40-150 (BEAKER) (test fcgm=488) BILIRUBIN TOTAL (BEAKER) 0.4 mg/dL 0.2-1.2 (test skqn=909) SODIUM (BEAKER) (test 135 meq/L 136-145 abal=463) POTASSIUM (BEAKER) (test 3.5 meq/L 3.5-5.1 wmns=512) CHLORIDE (BEAKER) (test 107 meq/L 98-107 qcyj=967) CO2 (BEAKER) (test 19 meq/L 22-29 rqfn=987) BLOOD UREA NITROGEN 15 mg/dL 7-21 (BEAKER) (test kevk=408) CREATININE (BEAKER) (test 1.31 mg/dL 0.57-1.25 diyn=580) GLUCOSE RANDOM (BEAKER) 173 mg/dL 70-105 (test zptv=662) CALCIUM (BEAKER) (test 9.0 mg/dL 8.4-10.2 vumt=965) AST (SGOT) (BEAKER) (test 9 U/L 5-34 tnki=208) ALT (SGPT) (BEAKER) (test 9 U/L 6-55 fjro=473) EGFR (BEAKER) (test 53 mL/min/1.73 sq m ESTIMATED GFR IS NOT dilx=6345) ACCURATE CREATININE CLEARANCE IN PREDICTING GLOMERULAR FILTRATION RATE. ESTIMATED GFR IS NOT APPLICABLE FOR DIALYSIS PATIENTS. LACTIC ACID, VENOUS, WHOLE [id number] 22:58:00 Test Item Value Reference Range Comments LACTATE BLOOD VENOUS (2) (BEAKER) (test 1.3 mmol/L 0.5-2.2 ezek=1408) CBC W/PLT COUNT & AUTO [id number] 22:42:00 Test Item Value Reference Range Comments WHITE BLOOD CELL COUNT (BEAKER) (test likg=724) 14.8 K/ L 3.5-10.5 RED BLOOD CELL COUNT (BEAKER) (test fjri=516) 3.94 M/ L 4.63-6.08 HEMOGLOBIN (BEAKER) (test hrbu=485) 10.1 GM/DL 13.7-17.5 HEMATOCRIT (BEAKER) (test jrou=903) 32.5 % 40.1-51.0 MEAN CORPUSCULAR VOLUME (BEAKER) (test nrrj=927) 82.5 fL 79.0-92.2 MEAN CORPUSCULAR HEMOGLOBIN (BEAKER) (test 25.6 pg 25.7-32.2 wjyr=731) MEAN CORPUSCULAR HEMOGLOBIN CONC (BEAKER) (test 31.1 GM/DL 32.3-36.5 dxby=133) RED CELL DISTRIBUTION WIDTH (BEAKER) (test 21.4 % 11.6-14.4 jjpx=643) PLATELET COUNT (BEAKER) (test bpar=414) 266 K/CU MM 150-450 MEAN PLATELET VOLUME (BEAKER) (test yfvj=510) 9.6 fL 9.4-12.4 NUCLEATED RED BLOOD CELLS (BEAKER) (test 0 /100 WBC 0-0 dtxu=560) NEUTROPHILS RELATIVE PERCENT (BEAKER) (test 90 % wjop=771) LYMPHOCYTES RELATIVE PERCENT (BEAKER) (test 5 % snke=312) MONOCYTES RELATIVE PERCENT (BEAKER) (test 4 % seig=496) EOSINOPHILS RELATIVE PERCENT (BEAKER) (test 0 % iuxz=761) BASOPHILS RELATIVE PERCENT (BEAKER) (test 0 % hfya=725) NEUTROPHILS ABSOLUTE COUNT (BEAKER) (test 13.29 K/ L 1.78-5.38 qnpy=969) LYMPHOCYTES ABSOLUTE COUNT (BEAKER) (test 0.79 K/ L 1.32-3.57 hfog=751) MONOCYTES ABSOLUTE COUNT (BEAKER) (test 0.63 K/ L 0.30-0.82 ynfu=159) EOSINOPHILS ABSOLUTE COUNT (BEAKER) (test 0.06 K/ L 0.04-0.54 asfr=581) BASOPHILS ABSOLUTE COUNT (BEAKER) (test 0.02 K/ L 0.01-0.08 wmnh=011) IMMATURE GRANULOCYTES-RELATIVE PERCENT (BEAKER) 0 % 0-1 (test keic=7613) RAD, CHEST, 1 VIEW, NON [id number] 22:14:00Reason for exam:-> wheezingShould this be performed [...] notify the appropriate on-call clinician. Signed: Myron Kenny MDReport Verified Date/ Time: 11/21/2018 22:14:36 Reading Location: [address] Reading Room 10: 14PMPOCT-GLUCOSE [id number] 21:43:00 Test Item Value Reference Range Comments POC-GLUCOSE METER (BEAKER) 195 mg/dL 70-110 TESTED AT [address] (test vjzv=2094) [place] [id number] POCT-GLUCOSE [id number] 17:48:00 Test Item Value Reference Range Comments POC-GLUCOSE METER (BEAKER) 186 mg/dL 70-110 TESTED AT [address] (test ndnw=2346) [place] [address] POCT-GLUCOSE [id number] 11:43:00 Test Item Value Reference Range Comments POC-GLUCOSE METER (BEAKER) 321 mg/dL 70-110 TESTED AT [address] (test srfu=7201) [place] [address] POCT-GLUCOSE [id number] 07:57:00 Test Item Value Reference Range Comments POC-GLUCOSE METER (BEAKER) 185 mg/dL 70-110 TESTED AT [address] (test qxeq=1816) [place] [address] [id number] 07:46:00 Test Item Value Reference Range Comments PHOSPHORUS (BEAKER) (test uemb=721) 2.2 mg/dL 2.3-4.7 [id number] 07:46:00 Test Item Value Reference Range Comments MAGNESIUM (BEAKER) (test rjtt=296) 1.7 mg/dL 1.6-2.6 BASIC METABOLIC [id number] 07:46:00 Test Item Value Reference Range Comments SODIUM (BEAKER) (test 139 meq/L 136-145 yrux=747) POTASSIUM (BEAKER) (test 3.3 meq/L 3.5-5.1 fkah=108) CHLORIDE (BEAKER) (test 108 meq/L 98-107 okya=113) CO2 (BEAKER) (test 20 meq/L 22-29 acfl=335) BLOOD UREA NITROGEN 15 mg/dL 7-21 (BEAKER) (test nflr=700) CREATININE (BEAKER) (test 1.26 mg/dL 0.57-1.25 obac=310) GLUCOSE RANDOM (BEAKER) 117 mg/dL 70-105 (test wzbi=019) CALCIUM (BEAKER) (test 8.9 mg/dL 8.4-10.2 lufd=218) EGFR (BEAKER) (test 56 mL/min/1.73 sq m ESTIMATED GFR IS NOT oqhb=7464) ACCURATE CREATININE CLEARANCE IN PREDICTING GLOMERULAR FILTRATION RATE. ESTIMATED GFR IS NOT APPLICABLE FOR DIALYSIS PATIENTS. CBC W/PLT COUNT & AUTO [id number] 07:14:00 Test Item Value Reference Range Comments WHITE BLOOD CELL COUNT (BEAKER) (test mngo=865) 8.6 K/ L 3.5-10.5 RED BLOOD CELL COUNT (BEAKER) (test spzu=936) 3.49 M/ L 4.63-6.08 HEMOGLOBIN (BEAKER) (test zhbx=652) 8.9 GM/DL 13.7-17.5 HEMATOCRIT (BEAKER) (test vgmj=009) 29.5 % 40.1-51.0 MEAN CORPUSCULAR VOLUME (BEAKER) (test mmrd=704) 84.5 fL 79.0-92.2 MEAN CORPUSCULAR HEMOGLOBIN (BEAKER) (test 25.5 pg 25.7-32.2 amqy=987) MEAN CORPUSCULAR HEMOGLOBIN CONC (BEAKER) (test 30.2 GM/DL 32.3-36.5 rddn=711) RED CELL DISTRIBUTION WIDTH (BEAKER) (test 21.2 % 11.6-14.4 fvec=839) PLATELET COUNT (BEAKER) (test dkyb=356) 269 K/CU MM 150-450 MEAN PLATELET VOLUME (BEAKER) (test gvfu=399) 11.3 fL 9.4-12.4 NUCLEATED RED BLOOD CELLS (BEAKER) (test 0 /100 WBC 0-0 gpjq=882) NEUTROPHILS RELATIVE PERCENT (BEAKER) (test 63 % ddyh=338) LYMPHOCYTES RELATIVE PERCENT (BEAKER) (test 27 % hljj=276) MONOCYTES RELATIVE PERCENT (BEAKER) (test 6 % cxik=490) EOSINOPHILS RELATIVE PERCENT (BEAKER) (test 4 % sklc=675) BASOPHILS RELATIVE PERCENT (BEAKER) (test 1 % ymel=043) NEUTROPHILS ABSOLUTE COUNT (BEAKER) (test 5.40 K/ L 1.78-5.38 jazm=233) LYMPHOCYTES ABSOLUTE COUNT (BEAKER) (test 2.30 K/ L 1.32-3.57 glav=031) MONOCYTES ABSOLUTE COUNT (BEAKER) (test 0.52 K/ L 0.30-0.82 enbe=190) EOSINOPHILS ABSOLUTE COUNT (BEAKER) (test 0.33 K/ L 0.04-0.54 opta=258) BASOPHILS ABSOLUTE COUNT (BEAKER) (test 0.06 K/ L 0.01-0.08 taad=243) IMMATURE GRANULOCYTES-RELATIVE PERCENT (BEAKER) 0 % 0-1 (test rond=1365) CALCIUM, [id number] 05:37:00 Test Item Value Reference Range Comments CALCIUM IONIZED (BEAKER) (test udvw=281) 1.09 mmol/L 1.12-1.27 PH, BLOOD (BEAKER) (test nusr=8849) 7.45 POCT-GLUCOSE [id number] 20:52:00 Test Item Value Reference Range Comments POC-GLUCOSE METER (BEAKER) 134 mg/dL 70-110 TESTED AT [address] (test nrot=1692) [facility] [address] [address], ABDOMEN, RENAL MASS, CYST [id number] 15:11:00Reason for exam:-> right renal massFINAL REPORT [...] MDReport Verified Date/Time: 11/20/2018 15:11:56 Reading Location: [facility] C013Y CT Body Reading Room 03: 11 PMPOCT-GLUCOSE [id number] 12:13:00 Test Item Value Reference Range Comments POC-GLUCOSE METER (BEAKER) 221 mg/dL 70-110 TESTED AT [address] (test ycgw=0232) [facility] [address] POCT-GLUCOSE [id number] 12:10:00 Test Item Value Reference Range Comments POC-GLUCOSE METER (BEAKER) 148 mg/dL 70-110 TESTED AT [address] (test tlvr=0136) [place] [address] [id number] 05:52:00 Test Item Value Reference Range Comments MAGNESIUM (BEAKER) (test 2.0 mg/dL 1.6-2.6 Specimen slightly hemolyzed yujw=185) [id number] 05:52:00 Test Item Value Reference Range Comments PHOSPHORUS (BEAKER) (test 2.2 mg/dL 2.3-4.7 Specimen slightly hemolyzed ajji=369) BASIC METABOLIC [id number] 05:52:00 Test Item Value Reference Range Comments SODIUM (BEAKER) (test 141 meq/L 136-145 nwfx=705) POTASSIUM (BEAKER) (test 3.7 meq/L 3.5-5.1 Specimen slightly jrbe=286) hemolyzed CHLORIDE (BEAKER) (test 111 meq/L 98-107 fihr=953) CO2 (BEAKER) (test 19 meq/L 22-29 cpgi=429) BLOOD UREA NITROGEN 18 mg/dL 7-21 (BEAKER) (test fisg=142) CREATININE (BEAKER) (test 1.33 mg/dL 0.57-1.25 Specimen slightly mdza=145) hemolyzed GLUCOSE RANDOM (BEAKER) 133 mg/dL 70-105 (test ubfn=008) CALCIUM (BEAKER) (test 9.1 mg/dL 8.4-10.2 plmv=634) EGFR (BEAKER) (test 52 mL/min/1.73 sq m ESTIMATED GFR IS NOT sqwo=9042) ACCURATE CREATININE CLEARANCE IN PREDICTING GLOMERULAR FILTRATION RATE. ESTIMATED GFR IS NOT APPLICABLE FOR DIALYSIS PATIENTS. CALCIUM, [id number] 05:46:00 Test Item Value Reference Range Comments CALCIUM IONIZED (BEAKER) (test eccb=903) 1.07 mmol/L 1.12-1.27 PH, BLOOD (BEAKER) (test spbi=3016) 7.45 CBC W/PLT COUNT & AUTO [id number] 05:45:00 Test Item Value Reference Range Comments WHITE BLOOD CELL COUNT (BEAKER) (test iofs=684) 9.4 K/ L 3.5-10.5 RED BLOOD CELL COUNT (BEAKER) (test qeov=601) 3.59 M/ L 4.63-6.08 HEMOGLOBIN (BEAKER) (test riav=713) 8.9 GM/DL 13.7-17.5 HEMATOCRIT (BEAKER) (test rxkf=758) 30.6 % 40.1-51.0 MEAN CORPUSCULAR VOLUME (BEAKER) (test mrnd=656) 85.2 fL 79.0-92.2 MEAN CORPUSCULAR HEMOGLOBIN (BEAKER) (test 24.8 pg 25.7-32.2 revs=669) MEAN CORPUSCULAR HEMOGLOBIN CONC (BEAKER) (test 29.1 GM/DL 32.3-36.5 uvjo=372) RED CELL DISTRIBUTION WIDTH (BEAKER) (test 20.9 % 11.6-14.4 mdin=194) PLATELET COUNT (BEAKER) (test cykg=699) 300 K/CU MM 150-450 MEAN PLATELET VOLUME (BEAKER) (test eoqs=564) 9.9 fL 9.4-12.4 NUCLEATED RED BLOOD CELLS (BEAKER) (test 0 /100 WBC 0-0 svib=781) NEUTROPHILS RELATIVE PERCENT (BEAKER) (test 68 % qxef=581) LYMPHOCYTES RELATIVE PERCENT (BEAKER) (test 23 % juht=936) MONOCYTES RELATIVE PERCENT (BEAKER) (test 5 % jdap=360) EOSINOPHILS RELATIVE PERCENT (BEAKER) (test 3 % sdbh=547) BASOPHILS RELATIVE PERCENT (BEAKER) (test 1 % kywi=233) NEUTROPHILS ABSOLUTE COUNT (BEAKER) (test 6.38 K/ L 1.78-5.38 kfmn=559) LYMPHOCYTES ABSOLUTE COUNT (BEAKER) (test 2.18 K/ L 1.32-3.57 valj=202) MONOCYTES ABSOLUTE COUNT (BEAKER) (test 0.50 K/ L 0.30-0.82 jfds=546) EOSINOPHILS ABSOLUTE COUNT (BEAKER) (test 0.28 K/ L 0.04-0.54 whvh=081) BASOPHILS ABSOLUTE COUNT (BEAKER) (test 0.05 K/ L 0.01-0.08 usqa=649) IMMATURE GRANULOCYTES-RELATIVE PERCENT (BEAKER) 0 % 0-1 (test cnst=0442) RAD, ABDOMEN/KUB, 1 VIEW [id number] 00:47:00Reason for exam:->placement of dobhoff tube, thanksFINAL REPORT EXAMINATION: SUPINE ABDOMEN CLINICAL INDICATION: FEEDING TUBE PLACEMENT IMPRESSION: Tip of the feeding tube projects over the left upper abdomen in the region of the stomach. Signed: Myron Kenny Verified Date/Time: 11/20/2018 00:47:19 Reading Location: [address] Reading Room POCT-GLUCOSE [id number] 20:52:00 Test Item Value Reference Range Comments POC-GLUCOSE METER (BEAKER) 150 mg/dL 70-110 TESTED AT [facility] [address] [facility] (test sqjb=3285) [facility] [address] POCT-GLUCOSE [id number] 19:47:00 Test Item Value Reference Range Comments POC-GLUCOSE METER (BEAKER) 179 mg/dL 70-110 TESTED AT [address] (test qguo=4243) [facility] [address] RAD, CHEST, 1 VIEW, NON [id number] 18:19:00After EGDReason for exam:->NG tube placementShould this [...] Verified Date/ Time: 11/19/2018 18:19:18 Reading Location: [facility] Radiology Reading Room POCT-GLUCOSE [id number] 16:55:00 Test Item Value Reference Range Comments POC-GLUCOSE METER (BEAKER) 172 mg/dL 70-110 TESTED AT [address] (test zgii=3643) [place] [address] POCT-GLUCOSE [id number] 11:56:00 Test Item Value Reference Range Comments POC-GLUCOSE METER (BEAKER) 158 mg/dL 70-110 TESTED AT [address] (test ppub=8934) [place] [address] POCT-GLUCOSE [id number] 07:17:00 Test Item Value Reference Range Comments POC-GLUCOSE METER (BEAKER) 142 mg/dL 70-110 TESTED AT [address] (test omam=4700) [place] [address] [id number] 06:49:00 Test Item Value Reference Range Comments PHOSPHORUS (BEAKER) (test xzct=194) 2.4 mg/dL 2.3-4.7 [id number] 06:49:00 Test Item Value Reference Range Comments MAGNESIUM (BEAKER) (test usug=220) 1.7 mg/dL 1.6-2.6 BASIC METABOLIC [id number] 06:49:00 Test Item Value Reference Range Comments SODIUM (BEAKER) (test 144 meq/L 136-145 kqcj=530) POTASSIUM (BEAKER) (test 3.4 meq/L 3.5-5.1 veix=938) CHLORIDE (BEAKER) (test 111 meq/L 98-107 qgmr=246) CO2 (BEAKER) (test 24 meq/L 22-29 cddh=717) BLOOD UREA NITROGEN 19 mg/dL 7-21 (BEAKER) (test eigj=428) CREATININE (BEAKER) (test 1.35 mg/dL 0.57-1.25 zest=445) GLUCOSE RANDOM (BEAKER) 139 mg/dL 70-105 (test csjv=798) CALCIUM (BEAKER) (test 9.4 mg/dL 8.4-10.2 wdvm=404) EGFR (BEAKER) (test 52 mL/min/1.73 sq m ESTIMATED GFR IS NOT kbmp=3151) ACCURATE CREATININE CLEARANCE IN PREDICTING GLOMERULAR FILTRATION RATE. ESTIMATED GFR IS NOT APPLICABLE FOR DIALYSIS PATIENTS. CBC W/PLT COUNT & AUTO [id number] 06:48:00 Test Item Value Reference Range Comments WHITE BLOOD CELL COUNT (BEAKER) (test wiyk=274) 9.0 K/ L 3.5-10.5 RED BLOOD CELL COUNT (BEAKER) (test pwyb=354) 3.60 M/ L 4.63-6.08 HEMOGLOBIN (BEAKER) (test mjpu=707) 9.0 GM/DL 13.7-17.5 HEMATOCRIT (BEAKER) (test exkc=434) 29.9 % 40.1-51.0 MEAN CORPUSCULAR VOLUME (BEAKER) (test ejgz=547) 83.1 fL 79.0-92.2 MEAN CORPUSCULAR HEMOGLOBIN (BEAKER) (test 25.0 pg 25.7-32.2 iwmn=525) MEAN CORPUSCULAR HEMOGLOBIN CONC (BEAKER) (test 30.1 GM/DL 32.3-36.5 bjwb=861) RED CELL DISTRIBUTION WIDTH (BEAKER) (test 20.1 % 11.6-14.4 lnim=970) PLATELET COUNT (BEAKER) (test vbxq=941) 342 K/CU MM 150-450 MEAN PLATELET VOLUME (BEAKER) (test cwav=536) 9.6 fL 9.4-12.4 NUCLEATED RED BLOOD CELLS (BEAKER) (test 0 /100 WBC 0-0 xiou=922) NEUTROPHILS RELATIVE PERCENT (BEAKER) (test 69 % dadb=167) LYMPHOCYTES RELATIVE PERCENT (BEAKER) (test 22 % seer=010) MONOCYTES RELATIVE PERCENT (BEAKER) (test 6 % ynup=094) EOSINOPHILS RELATIVE PERCENT (BEAKER) (test 2 % soyz=163) BASOPHILS RELATIVE PERCENT (BEAKER) (test 1 % tutc=716) NEUTROPHILS ABSOLUTE COUNT (BEAKER) (test 6.19 K/ L 1.78-5.38 qmwr=685) LYMPHOCYTES ABSOLUTE COUNT (BEAKER) (test 1.99 K/ L 1.32-3.57 spdm=093) MONOCYTES ABSOLUTE COUNT (BEAKER) (test 0.52 K/ L 0.30-0.82 hquw=329) EOSINOPHILS ABSOLUTE COUNT (BEAKER) (test 0.18 K/ L 0.04-0.54 zqeb=564) BASOPHILS ABSOLUTE COUNT (BEAKER) (test 0.06 K/ L 0.01-0.08 winj=616) IMMATURE GRANULOCYTES-RELATIVE PERCENT (BEAKER) 0 % 0-1 (test upoi=5317) POCT-GLUCOSE [id number] 21:23:00 Test Item Value Reference Range Comments POC-GLUCOSE METER (BEAKER) 172 mg/dL 70-110 TESTED AT [address] (test llon=1977) [place] [id number] POCT-GLUCOSE [id number] 11:34:00 Test Item Value Reference Range Comments POC-GLUCOSE METER (BEAKER) 187 mg/dL 70-110 TESTED AT [address] (test vumk=2914) [place] [id number] POCT-GLUCOSE [id number] 07:51:00 Test Item Value Reference Range Comments POC-GLUCOSE METER (BEAKER) 192 mg/dL 70-110 TESTED AT [address] (test hxnm=1959) [place] [id number] CALCIUM, [id number] 06:19:00 Test Item Value Reference Range Comments CALCIUM IONIZED (BEAKER) (test hlmm=156) 1.13 mmol/L 1.12-1.27 PH, BLOOD (BEAKER) (test csgn=9547) 7.43 [id number] 06:03:00 Test Item Value Reference Range Comments PHOSPHORUS (BEAKER) (test yurb=266) 2.5 mg/dL 2.3-4.7 [id number] 06:03:00 Test Item Value Reference Range Comments MAGNESIUM (BEAKER) (test arxs=301) 1.5 mg/dL 1.6-2.6 BASIC METABOLIC [id number] 06:03:00 Test Item Value Reference Range Comments SODIUM (BEAKER) (test 140 meq/L 136-145 umxo=340) POTASSIUM (BEAKER) (test 3.6 meq/L 3.5-5.1 oxft=318) CHLORIDE (BEAKER) (test 108 meq/L 98-107 gaev=354) CO2 (BEAKER) (test 22 meq/L 22-29 dbdo=348) BLOOD UREA NITROGEN 21 mg/dL 7-21 (BEAKER) (test gznq=989) CREATININE (BEAKER) (test 1.40 mg/dL 0.57-1.25 jgab=381) GLUCOSE RANDOM (BEAKER) 158 mg/dL 70-105 (test ghkg=057) CALCIUM (BEAKER) (test 9.1 mg/dL 8.4-10.2 oiko=781) EGFR (BEAKER) (test 49 mL/min/1.73 sq m ESTIMATED GFR IS NOT nesm=2131) ACCURATE CREATININE CLEARANCE IN PREDICTING GLOMERULAR FILTRATION RATE. ESTIMATED GFR IS NOT APPLICABLE FOR DIALYSIS PATIENTS. CBC W/PLT COUNT & AUTO [id number] 05:41:00 Test Item Value Reference Range Comments WHITE BLOOD CELL COUNT (BEAKER) (test ugyw=012) 10.1 K/ L 3.5-10.5 RED BLOOD CELL COUNT (BEAKER) (test wkjp=369) 3.56 M/ L 4.63-6.08 HEMOGLOBIN (BEAKER) (test lysg=409) 8.8 GM/DL 13.7-17.5 HEMATOCRIT (BEAKER) (test xcir=686) 29.6 % 40.1-51.0 MEAN CORPUSCULAR VOLUME (BEAKER) (test wzzc=206) 83.1 fL 79.0-92.2 MEAN CORPUSCULAR HEMOGLOBIN (BEAKER) (test 24.7 pg 25.7-32.2 hjxy=403) MEAN CORPUSCULAR HEMOGLOBIN CONC (BEAKER) (test 29.7 GM/DL 32.3-36.5 hwmk=051) RED CELL DISTRIBUTION WIDTH (BEAKER) (test 19.7 % 11.6-14.4 wkvo=241) PLATELET COUNT (BEAKER) (test gvsx=039) 337 K/CU MM 150-450 MEAN PLATELET VOLUME (BEAKER) (test tlzq=628) 10.3 fL 9.4-12.4 NUCLEATED RED BLOOD CELLS (BEAKER) (test 0 /100 WBC 0-0 nwkf=801) NEUTROPHILS RELATIVE PERCENT (BEAKER) (test 69 % lscc=259) LYMPHOCYTES RELATIVE PERCENT (BEAKER) (test 21 % emsm=443) MONOCYTES RELATIVE PERCENT (BEAKER) (test 6 % ofls=208) EOSINOPHILS RELATIVE PERCENT (BEAKER) (test 2 % qmdg=702) BASOPHILS RELATIVE PERCENT (BEAKER) (test 1 % wsbm=293) NEUTROPHILS ABSOLUTE COUNT (BEAKER) (test 6.98 K/ L 1.78-5.38 krwe=637) LYMPHOCYTES ABSOLUTE COUNT (BEAKER) (test 2.13 K/ L 1.32-3.57 cnok=409) MONOCYTES ABSOLUTE COUNT (BEAKER) (test 0.65 K/ L 0.30-0.82 miqw=599) EOSINOPHILS ABSOLUTE COUNT (BEAKER) (test 0.20 K/ L 0.04-0.54 khem=691) BASOPHILS ABSOLUTE COUNT (BEAKER) (test 0.05 K/ L 0.01-0.08 vize=634) IMMATURE GRANULOCYTES-RELATIVE PERCENT (BEAKER) 1 % 0-1 (test vnni=7287) POCT-GLUCOSE [id number] 21:32:00 Test Item Value Reference Range Comments POC-GLUCOSE METER (BEAKER) 187 mg/dL 70-110 TESTED AT [address] (test qkhp=1313) [place] [address] POCT-GLUCOSE [id number] 17:16:00 Test Item Value Reference Range Comments POC-GLUCOSE METER (BEAKER) 174 mg/dL 70-110 TESTED AT [address] (test noru=7294) [place] [address] POCT-GLUCOSE [id number] 11:52:00 Test Item Value Reference Range Comments POC-GLUCOSE METER (BEAKER) 172 mg/dL 70-110 TESTED AT [address] (test lokq=6706) [place] [address] BASIC METABOLIC [id number] 09:39:00 Test Item Value Reference Range Comments SODIUM (BEAKER) (test 140 meq/L 136-145 ggnj=193) POTASSIUM (BEAKER) (test 3.9 meq/L 3.5-5.1 ibil=582) CHLORIDE (BEAKER) (test 109 meq/L 98-107 qdqm=387) CO2 (BEAKER) (test 20 meq/L 22-29 fdvw=608) BLOOD UREA NITROGEN 20 mg/dL 7-21 (BEAKER) (test dsqx=263) CREATININE (BEAKER) (test 1.47 mg/dL 0.57-1.25 prsr=525) GLUCOSE RANDOM (BEAKER) 138 mg/dL 70-105 (test ihlu=820) CALCIUM (BEAKER) (test 9.3 mg/dL 8.4-10.2 xmph=370) EGFR (BEAKER) (test 47 mL/min/1.73 sq m ESTIMATED GFR IS NOT wycz=8801) ACCURATE CREATININE CLEARANCE IN PREDICTING GLOMERULAR FILTRATION RATE. ESTIMATED GFR IS NOT APPLICABLE FOR DIALYSIS PATIENTS. CBC (HEMOGRAM ONLY)2018-11-17 09:22:00 Test Item Value Reference Range Comments WHITE BLOOD CELL COUNT (BEAKER) (test ixbb=555) 9.9 K/ L 3.5-10.5 RED BLOOD CELL COUNT (BEAKER) (test zqqi=187) 3.62 M/ L 4.63-6.08 HEMOGLOBIN (BEAKER) (test nwoc=606) 8.9 GM/DL 13.7-17.5 HEMATOCRIT (BEAKER) (test fenw=601) 29.9 % 40.1-51.0 MEAN CORPUSCULAR VOLUME (BEAKER) (test cylx=579) 82.6 fL 79.0-92.2 MEAN CORPUSCULAR HEMOGLOBIN (BEAKER) (test 24.6 pg 25.7-32.2 chcr=905) MEAN CORPUSCULAR HEMOGLOBIN CONC (BEAKER) (test 29.8 GM/DL 32.3-36.5 nzae=931) RED CELL DISTRIBUTION WIDTH (BEAKER) (test 19.4 % 11.6-14.4 ztcx=708) PLATELET COUNT (BEAKER) (test xinp=246) 364 K/CU MM 150-450 MEAN PLATELET VOLUME (BEAKER) (test csnd=331) 9.4 fL 9.4-12.4 NUCLEATED RED BLOOD CELLS (BEAKER) (test 0 /100 WBC 0-0 derx=244) POCT-GLUCOSE [id number] 07:54:00 Test Item Value Reference Range Comments POC-GLUCOSE METER (BEAKER) 140 mg/dL 70-110 TESTED AT [address] (test vaig=7069) [facility] [address] POCT-GLUCOSE [id number] 20:01:00 Test Item Value Reference Range Comments POC-GLUCOSE METER (BEAKER) 176 mg/dL 70-110 TESTED AT [address] (test sika=2687) [facility] [address] POCT-GLUCOSE [id number] 17:51:00 Test Item Value Reference Range Comments POC-GLUCOSE METER (BEAKER) 168 mg/dL 70-110 TESTED AT [address] (test syso=8259) [facility] [address] POCT-GLUCOSE [id number] 11:41:00 Test Item Value Reference Range Comments POC-GLUCOSE METER (BEAKER) 164 mg/dL 70-110 TESTED AT [address] (test veei=2182) [facility] [address] POCT-GLUCOSE [id number] 08:13:00 Test Item Value Reference Range Comments POC-GLUCOSE METER (BEAKER) 161 mg/dL 70-110 TESTED AT [address] (test pzkx=0505) [facility] [address] COMPREHENSIVE METABOLIC [id number] 05:49:00 Test Item Value Reference Range Comments TOTAL PROTEIN (BEAKER) 7.0 gm/dL 6.0-8.3 (test lofm=983) ALBUMIN (BEAKER) (test 3.8 g/dL 3.5-5.0 pvty=9557) ALKALINE PHOSPHATASE 70 U/L 40-150 (BEAKER) (test ekjy=670) BILIRUBIN TOTAL (BEAKER) 0.4 mg/dL 0.2-1.2 (test ynsi=585) SODIUM (BEAKER) (test 139 meq/L 136-145 nady=932) POTASSIUM (BEAKER) (test 3.8 meq/L 3.5-5.1 zohm=780) CHLORIDE (BEAKER) (test 107 meq/L 98-107 kngi=670) CO2 (BEAKER) (test 22 meq/L 22-29 wxqp=250) BLOOD UREA NITROGEN 19 mg/dL 7-21 (BEAKER) (test aehz=485) CREATININE (BEAKER) (test 1.66 mg/dL 0.57-1.25 uxgo=889) GLUCOSE RANDOM (BEAKER) 137 mg/dL 70-105 (test inbd=318) CALCIUM (BEAKER) (test 9.6 mg/dL 8.4-10.2 mygu=399) AST (SGOT) (BEAKER) (test 9 U/L 5-34 bies=259) ALT (SGPT) (BEAKER) (test 10 U/L 6-55 jkri=834) EGFR (BEAKER) (test 41 mL/min/1.73 sq m ESTIMATED GFR IS NOT xzww=6273) ACCURATE CREATININE CLEARANCE IN PREDICTING GLOMERULAR FILTRATION RATE. ESTIMATED GFR IS NOT APPLICABLE FOR DIALYSIS PATIENTS. CBC (HEMOGRAM ONLY)2018-11-16 05:28:00 Test Item Value Reference Range Comments WHITE BLOOD CELL COUNT (BEAKER) (test wlqw=843) 11.1 K/ L 3.5-10.5 RED BLOOD CELL COUNT (BEAKER) (test efbm=252) 3.57 M/ L 4.63-6.08 HEMOGLOBIN (BEAKER) (test losl=829) 8.8 GM/DL 13.7-17.5 HEMATOCRIT (BEAKER) (test anpw=432) 29.4 % 40.1-51.0 MEAN CORPUSCULAR VOLUME (BEAKER) (test lmez=666) 82.4 fL 79.0-92.2 MEAN CORPUSCULAR HEMOGLOBIN (BEAKER) (test 24.6 pg 25.7-32.2 qmve=918) MEAN CORPUSCULAR HEMOGLOBIN CONC (BEAKER) (test 29.9 GM/DL 32.3-36.5 itwe=286) RED CELL DISTRIBUTION WIDTH (BEAKER) (test 19.0 % 11.6-14.4 mwqp=743) PLATELET COUNT (BEAKER) (test xzrd=755) 381 K/CU MM 150-450 MEAN PLATELET VOLUME (BEAKER) (test ovhl=877) 9.7 fL 9.4-12.4 NUCLEATED RED BLOOD CELLS (BEAKER) (test 0 /100 WBC 0-0 nnfd=699) POCT-GLUCOSE [id number] 21:10:00 Test Item Value Reference Range Comments POC-GLUCOSE METER (BEAKER) 133 mg/dL 70-110 TESTED AT [address] (test npgt=4226) [facility] [address] POCT-GLUCOSE [id number] 18:30:00 Test Item Value Reference Range Comments POC-GLUCOSE METER (BEAKER) 158 mg/dL 70-110 TESTED AT [address] (test jnmh=0916) [facility] [address] POCT-GLUCOSE [id number] 12:09:00 Test Item Value Reference Range Comments POC-GLUCOSE METER (BEAKER) 172 mg/dL 70-110 TESTED AT [address] (test vpki=2582) [facility] [address] POCT-GLUCOSE [id number] 07:55:00 Test Item Value Reference Range Comments POC-GLUCOSE METER (BEAKER) 178 mg/dL 70-110 TESTED AT [address] (test qore=7287) [facility] [address] BASIC METABOLIC [id number] 07:20:00 Test Item Value Reference Range Comments SODIUM (BEAKER) (test 137 meq/L 136-145 afin=716) POTASSIUM (BEAKER) (test 3.8 meq/L 3.5-5.1 opti=648) CHLORIDE (BEAKER) (test 106 meq/L 98-107 lqie=712) CO2 (BEAKER) (test 22 meq/L 22-29 fhkb=035) BLOOD UREA NITROGEN 21 mg/dL 7-21 (BEAKER) (test acgc=205) CREATININE (BEAKER) (test 1.56 mg/dL 0.57-1.25 cfsw=935) GLUCOSE RANDOM (BEAKER) 142 mg/dL 70-105 (test budc=834) CALCIUM (BEAKER) (test 9.3 mg/dL 8.4-10.2 ikaf=234) EGFR (BEAKER) (test 44 mL/min/1.73 sq m ESTIMATED GFR IS NOT lqqr=6512) ACCURATE CREATININE CLEARANCE IN PREDICTING GLOMERULAR FILTRATION RATE. ESTIMATED GFR IS NOT APPLICABLE FOR DIALYSIS PATIENTS. B-TYPE NATRIURETIC FACTOR (BNP)2018-11-15 06:49:00 Test Item Value Reference Range Comments B-TYPE NATRIURETIC PEPTIDE (BEAKER) (test 172 pg/mL 0-100 giak=032) POCT-GLUCOSE [id number] 06:27:00 Test Item Value Reference Range Comments POC-GLUCOSE METER (BEAKER) 151 mg/dL 70-110 TESTED AT [place] [id number] [facility] (test koix=1303) [place] [address] CBC (HEMOGRAM ONLY)2018-11-15 06:21:00 Test Item Value Reference Range Comments WHITE BLOOD CELL COUNT (BEAKER) (test iucu=956) 10.1 K/ L 3.5-10.5 RED BLOOD CELL COUNT (BEAKER) (test jtes=739) 3.42 M/ L 4.63-6.08 HEMOGLOBIN (BEAKER) (test vhad=980) 8.4 GM/DL 13.7-17.5 HEMATOCRIT (BEAKER) (test yvpd=592) 27.6 % 40.1-51.0 MEAN CORPUSCULAR VOLUME (BEAKER) (test xcxz=375) 80.7 fL 79.0-92.2 MEAN CORPUSCULAR HEMOGLOBIN (BEAKER) (test 24.6 pg 25.7-32.2 wkok=481) MEAN CORPUSCULAR HEMOGLOBIN CONC (BEAKER) (test 30.4 GM/DL 32.3-36.5 gwoz=496) RED CELL DISTRIBUTION WIDTH (BEAKER) (test 18.5 % 11.6-14.4 lyie=703) PLATELET COUNT (BEAKER) (test uqnx=275) 383 K/CU MM 150-450 MEAN PLATELET VOLUME (BEAKER) (test yrai=544) 10.1 fL 9.4-12.4 NUCLEATED RED BLOOD CELLS (BEAKER) (test 0 /100 WBC 0-0 teyg=228) POCT-GLUCOSE [id number] 21:06:00 Test Item Value Reference Range Comments POC-GLUCOSE METER (BEAKER) 157 mg/dL 70-110 TESTED AT [address] (test nmbn=0464) [facility] [address] RAD, CHEST, 1 VIEW, NON [id number] 19:50:00Reason for exam:->sob/shest painShould this be performed at the bedside?->YesFINAL REPORT Chest, AP view, two images. History: Shortness of breath. Chest pain. Comparison: 11/09/2013. Discussion: The cardiomediastinal silhouette and pulmonary vasculature are within normal limits. The lungs are clear without evidence of consolidation or effusion. Thereare no acute osseous abnormalities. The soft tissues are unremarkable. IMPRESSION: No acute cardiopulmonary abnormality. Signed: Luis Blanca MDReport Verified Date/Time : 11/14/2018 19:50:32 Reading Location: [address] Reading Room RAD , ABDOMEN/KUB, 1 VIEW [id number] 19:02:00Reason for exam:->Check NGT placementPt is hard [...] examination is otherwise stable. Signed: Sarmad Rivera MDReport Verified Date/Time: 11/14/2018 19:02:06 Reading Location: [address] Reading Room POCT-GLUCOSE [id number] 17:34:00 Test Item Value Reference Range Comments POC-GLUCOSE METER (BEAKER) 136 mg/dL 70-110 TESTED AT [address] (test rizk=0489) [facility] [address] TROPONIN [id number] 16:18:00 Test Item Value Reference Range Comments TROPONIN I (BEAKER) (test rvbd=180) < ng/mL 0.00-0.03 Troponin I (TnI) levels [...] Range Comments CREATINE KINASE TOTAL (BEAKER) (test ryzr=113) 68 U/L 29-200 RAD, ABDOMEN/KUB, 1 VIEW [id number] 15:36:00Reason for exam:->Abdominal distension; VomitingShould this be [...] Ortiz Verified Date/Time: 11/14/2018 15:36:02 Reading Location: [address] Consult Reading Room POCT-GLUCOSE [id number] 12:10: 00 Test Item Value Reference Range Comments POC-GLUCOSE METER (BEAKER) 195 mg/dL 70-110 TESTED AT [address] (test wwzy=5496) [facility] [address] POCT-GLUCOSE [id number] 08:00:00 Test Item Value Reference Range Comments POC-GLUCOSE METER (BEAKER) 195 mg/dL 70-110 TESTED AT [facility] [address] [facility] (test awpn=4806) [facility] [address] COMPREHENSIVE METABOLIC [id number] 06:10:00 Test Item Value Reference Range Comments TOTAL PROTEIN (BEAKER) 7.1 gm/dL 6.0-8.3 (test qghz=775) ALBUMIN (BEAKER) (test 3.8 g/dL 3.5-5.0 pypy=1577) ALKALINE PHOSPHATASE 78 U/L 40-150 (BEAKER) (test vlos=507) BILIRUBIN TOTAL (BEAKER) 0.3 mg/dL 0.2-1.2 (test pgmq=264) SODIUM (BEAKER) (test 136 meq/L 136-145 gsvj=736) POTASSIUM (BEAKER) (test 4.0 meq/L 3.5-5.1 mdjd=785) CHLORIDE (BEAKER) (test 107 meq/L 98-107 xwdz=878) CO2 (BEAKER) (test 19 meq/L 22-29 tedl=772) BLOOD UREA NITROGEN 25 mg/dL 7-21 (BEAKER) (test nrwi=180) CREATININE (BEAKER) (test 1.67 mg/dL 0.57-1.25 kosy=587) GLUCOSE RANDOM (BEAKER) 177 mg/dL 70-105 (test woeh=299) CALCIUM (BEAKER) (test 9.4 mg/dL 8.4-10.2 bgqj=627) AST (SGOT) (BEAKER) (test 9 U/L 5-34 fjoo=161) ALT (SGPT) (BEAKER) (test 10 U/L 6-55 gtwj=445) EGFR (BEAKER) (test 40 mL/min/1.73 sq m ESTIMATED GFR IS NOT zuij=7665) ACCURATE CREATININE CLEARANCE IN PREDICTING GLOMERULAR FILTRATION RATE. ESTIMATED GFR IS NOT APPLICABLE FOR DIALYSIS PATIENTS. PROTHROMBIN [id number] 05:59:00 Test Item Value Reference Range Comments PROTIME (BEAKER) (test wign=599) 17.4 seconds 11.7-14.7 INR (BEAKER) (test xylv=025) 1.4 <=5.9 RECOMMENDED COUMADIN/WARFARIN INR THERAPY RANGESSTANDARD DOSE: 2.0 - 3.0 Includes: PROPHYLAXIS forvenous thrombosis, systemic embolization; TREATMENT for venous thrombosis and/or pulmonary embolus.HIGH RISK: Target INR is 2.5-3.5 for patients with mechanical heart valves.CBC W/PLT COUNT & AUTO [id number] 05:45:00 Test Item Value Reference Range Comments WHITE BLOOD CELL COUNT (BEAKER) (test oyaf=136) 11.1 K/ L 3.5-10.5 RED BLOOD CELL COUNT (BEAKER) (test gpqc=552) 3.63 M/ L 4.63-6.08 HEMOGLOBIN (BEAKER) (test xpfv=379) 8.8 GM/DL 13.7-17.5 HEMATOCRIT (BEAKER) (test pfuc=625) 29.8 % 40.1-51.0 MEAN CORPUSCULAR VOLUME (BEAKER) (test wfyz=473) 82.1 fL 79.0-92.2 MEAN CORPUSCULAR HEMOGLOBIN (BEAKER) (test 24.2 pg 25.7-32.2 myya=998) MEAN CORPUSCULAR HEMOGLOBIN CONC (BEAKER) (test 29.5 GM/DL 32.3-36.5 ebqt=381) RED CELL DISTRIBUTION WIDTH (BEAKER) (test 18.4 % 11.6-14.4 xhbk=153) PLATELET COUNT (BEAKER) (test iiau=581) 369 K/CU MM 150-450 MEAN PLATELET VOLUME (BEAKER) (test vqjk=709) 9.6 fL 9.4-12.4 NUCLEATED RED BLOOD CELLS (BEAKER) (test 0 /100 WBC 0-0 jliy=311) NEUTROPHILS RELATIVE PERCENT (BEAKER) (test 72 % gqff=283) LYMPHOCYTES RELATIVE PERCENT (BEAKER) (test 17 % fsyf=206) MONOCYTES RELATIVE PERCENT (BEAKER) (test 8 % wqkc=910) EOSINOPHILS RELATIVE PERCENT (BEAKER) (test 2 % irqb=035) BASOPHILS RELATIVE PERCENT (BEAKER) (test 1 % iiaf=096) NEUTROPHILS ABSOLUTE COUNT (BEAKER) (test 7.98 K/ L 1.78-5.38 ebbh=031) LYMPHOCYTES ABSOLUTE COUNT (BEAKER) (test 1.92 K/ L 1.32-3.57 ivou=154) MONOCYTES ABSOLUTE COUNT (BEAKER) (test 0.86 K/ L 0.30-0.82 wjnd=013) EOSINOPHILS ABSOLUTE COUNT (BEAKER) (test 0.19 K/ L 0.04-0.54 zzvt=694) BASOPHILS ABSOLUTE COUNT (BEAKER) (test 0.06 K/ L 0.01-0.08 argg=212) IMMATURE GRANULOCYTES-RELATIVE PERCENT (BEAKER) 1 % 0-1 (test wlya=5777) U/S, RENAL, [id number] 00:34:00Reason for exam:->Right renal massShould this be [...] MDReport Verified Date/Time: 11/14/2018 00:34:34 Reading Location: [facility] C0[facility] Neuro Reading Room Electronically signed by: JEFF SANFORD MD on 2018 12:34 AMPOCT-GLUCOSE [id number] 21:25:00 Test Item Value Reference Range Comments POC-GLUCOSE METER (BEAKER) 155 mg/dL 70-110 TESTED AT [address] (test kjaj=5154) [facility] [address] POCT-GLUCOSE [id number] 17:31:00 Test Item Value Reference Range Comments POC-GLUCOSE METER (BEAKER) 144 mg/dL 70-110 TESTED AT [address] (test blbm=8349) [facility] [address] POCT-GLUCOSE [id number] 15:39:00 Test Item Value Reference Range Comments POC-GLUCOSE METER (BEAKER) 156 mg/dL 70-110 TESTED AT [address] (test fvio=7652) [facility] [address] POCT-GLUCOSE [id number] 12:28:00 Test Item Value Reference Range Comments POC-GLUCOSE METER (BEAKER) 162 mg/dL 70-110 TESTED AT [address] (test axkl=7241) [facility] [address] POCT-GLUCOSE [id number] 11:40:00 Test Item Value Reference Range Comments POC-GLUCOSE METER (BEAKER) 159 mg/dL 70-110 TESTED AT [address] (test lcji=8034) [facility] [address] HEMOGLOBIN [id number] 09:40:00 Test Item Value Reference Range Comments HEMOGLOBIN A1C (BEAKER) (test tkim=068) 6.5 % 4.3-6.1 POCT-GLUCOSE [id number] 08:19:00 Test Item Value Reference Range Comments POC-GLUCOSE METER (BEAKER) 162 mg/dL 70-110 TESTED AT [address] (test vcwj=1561) [facility] [address] OSMOLALITY, [id number] 07:44:00 Test Item Value Reference Range Comments OSMOLALITY URINE (BEAKER) 381 mOsm/kg 40-1,400 This is a corrected result. (test spms=004) Previous result was 292 mOsm/kg on 11/13/2018 at 0731 [employer] OSMOLALITY, [id number] 07:32:00 Test Item Value Reference Range Comments OSMOLALITY, SERUM (BEAKER) (test okun=615) 292 mOsm/kg 275-295 CALCIUM, [id number] 07:20:00 Test Item Value Reference Range Comments CALCIUM IONIZED (BEAKER) (test jkzh=451) 1.11 mmol/L 1.12-1.27 PH, BLOOD (BEAKER) (test coil=6925) 7.44 TSH/FREE T4 IF [id number] 06:26:00 Test Item Value Reference Range Comments THYROID STIMULATING HORMONE (BEAKER) (test 2.50 uIU/mL 0.35-4.94 dulz=873) TROPONIN [id number] 06:04:00 Test Item Value Reference Range Comments TROPONIN I (BEAKER) (test eglk=374) < ng/mL 0.00-0.03 Troponin I (TnI) levels [...] failure, acidosis, acute neurological disease, and persistent tachyarrhythmia.[id number] 06:02:00 Test Item Value Reference Range Comments PHOSPHORUS (BEAKER) (test hnds=914) 2.7 mg/dL 2.3-4.7 [id number] 06:02:00 Test Item Value Reference Range Comments MAGNESIUM (BEAKER) (test tswm=151) 2.3 mg/dL 1.6-2.6 COMPREHENSIVE METABOLIC [id number] 06:02:00 Test Item Value Reference Range Comments TOTAL PROTEIN (BEAKER) 6.9 gm/dL 6.0-8.3 (test otic=948) ALBUMIN (BEAKER) (test 3.6 g/dL 3.5-5.0 zytj=2357) ALKALINE PHOSPHATASE 77 U/L 40-150 (BEAKER) (test dwtk=838) BILIRUBIN TOTAL (BEAKER) 0.4 mg/dL 0.2-1.2 (test bchz=214) SODIUM (BEAKER) (test 132 meq/L 136-145 hpas=257) POTASSIUM (BEAKER) (test 4.7 meq/L 3.5-5.1 hxik=024) CHLORIDE (BEAKER) (test 102 meq/L 98-107 anzw=992) CO2 (BEAKER) (test 22 meq/L 22-29 ghaf=160) BLOOD UREA NITROGEN 36 mg/dL 7-21 (BEAKER) (test eayq=862) CREATININE (BEAKER) (test 1.86 mg/dL 0.57-1.25 sgzx=339) GLUCOSE RANDOM (BEAKER) 144 mg/dL 70-105 (test lnpn=301) CALCIUM (BEAKER) (test 9.1 mg/dL 8.4-10.2 jcqk=750) AST (SGOT) (BEAKER) (test 9 U/L 5-34 gzbq=341) ALT (SGPT) (BEAKER) (test 10 U/L 6-55 kxja=939) EGFR (BEAKER) (test 36 mL/min/1.73 sq m ESTIMATED GFR IS NOT hwfd=6700) ACCURATE CREATININE CLEARANCE IN PREDICTING GLOMERULAR FILTRATION RATE. ESTIMATED GFR IS NOT APPLICABLE FOR DIALYSIS PATIENTS. CREATINE KINASE (CK)2018-11-13 06:02:00 Test Item Value Reference Range Comments CREATINE KINASE TOTAL (BEAKER) (test nxrv=690) 90 U/L 29-200 URINALYSIS W/ [id number] 06:00:00 Test Item Value Reference Range Comments COLOR (BEAKER) (test evwn=115) Yellow CLARITY (BEAKER) (test iakn=853) Hazy SPECIFIC GRAVITY UA (BEAKER) (test msyj=523) 1.010 1.001-1.035 PH UA (BEAKER) (test jjza=823) 5.5 5.0-8.0 PROTEIN UA (BEAKER) (test arfv=384) Negative Negative GLUCOSE UA (BEAKER) (test xxgh=085) Negative Negative KETONES UA (BEAKER) (test mzrn=552) Negative Negative BILIRUBIN UA (BEAKER) (test hgss=246) Negative Negative BLOOD UA (BEAKER) (test mvuk=453) Negative Negative NITRITE UA (BEAKER) (test arof=415) Negative Negative LEUKOCYTE ESTERASE UA (BEAKER) (test flsa=753) Large Negative UROBILINOGEN UA (BEAKER) (test ckba=693) 0.2 mg/dL 0.2-1.0 RBC UA (BEAKER) (test lpgc=092) 1 /HPF WBC UA (BEAKER) (test ddaz=306) 66 /HPF BACTERIA (BEAKER) (test xogj=138) Many SQUAMOUS EPITHELIAL (BEAKER) (test lppz=916) 1 /HPF SOURCE(BEAKER) (test arvg=1046) B-TYPE NATRIURETIC FACTOR (BNP)2018-11-13 05:58:00 Test Item Value Reference Range Comments B-TYPE NATRIURETIC PEPTIDE (BEAKER) (test xirj=523) 88 pg/mL 0-100 PROTHROMBIN [id number] 05:39:00 Test Item Value Reference Range Comments PROTIME (BEAKER) (test dgjh=018) 18.3 seconds 11.7-14.7 INR (BEAKER) (test zoha=640) 1.5 <=5.9 RECOMMENDED COUMADIN/WARFARIN INR THERAPY RANGESSTANDARD DOSE: 2.0 - 3.0 Includes: PROPHYLAXIS forvenous thrombosis, systemic embolization; TREATMENT for venous thrombosis and/or pulmonary embolus.HIGH RISK: Target INR is 2.5-3.5 for patients with mechanical heart valves.CBC W/PLT COUNT & AUTO [id number] 05:31:00 Test Item Value Reference Range Comments WHITE BLOOD CELL COUNT (BEAKER) (test rdcz=490) 11.8 K/ L 3.5-10.5 RED BLOOD CELL COUNT (BEAKER) (test vmiw=273) 3.44 M/ L 4.63-6.08 HEMOGLOBIN (BEAKER) (test isgb=163) 8.5 GM/DL 13.7-17.5 HEMATOCRIT (BEAKER) (test ivuj=302) 27.6 % 40.1-51.0 MEAN CORPUSCULAR VOLUME (BEAKER) (test jghf=694) 80.2 fL 79.0-92.2 MEAN CORPUSCULAR HEMOGLOBIN (BEAKER) (test 24.7 pg 25.7-32.2 mexm=525) MEAN CORPUSCULAR HEMOGLOBIN CONC (BEAKER) (test 30.8 GM/DL 32.3-36.5 lczk=382) RED CELL DISTRIBUTION WIDTH (BEAKER) (test 18.4 % 11.6-14.4 ejuv=649) PLATELET COUNT (BEAKER) (test hmxk=953) 360 K/CU MM 150-450 MEAN PLATELET VOLUME (BEAKER) (test dnxm=538) 9.6 fL 9.4-12.4 NUCLEATED RED BLOOD CELLS (BEAKER) (test 0 /100 WBC 0-0 gfwr=616) NEUTROPHILS RELATIVE PERCENT (BEAKER) (test 66 % mlcq=973) LYMPHOCYTES RELATIVE PERCENT (BEAKER) (test 24 % bqym=162) MONOCYTES RELATIVE PERCENT (BEAKER) (test 7 % xdyo=304) EOSINOPHILS RELATIVE PERCENT (BEAKER) (test 2 % hosc=046) BASOPHILS RELATIVE PERCENT (BEAKER) (test 1 % lwgj=483) NEUTROPHILS ABSOLUTE COUNT (BEAKER) (test 7.75 K/ L 1.78-5.38 bktj=635) LYMPHOCYTES ABSOLUTE COUNT (BEAKER) (test 2.84 K/ L 1.32-3.57 uhcd=695) MONOCYTES ABSOLUTE COUNT (BEAKER) (test 0.83 K/ L 0.30-0.82 fltm=278) EOSINOPHILS ABSOLUTE COUNT (BEAKER) (test 0.23 K/ L 0.04-0.54 gwqb=097) BASOPHILS ABSOLUTE COUNT (BEAKER) (test 0.06 K/ L 0.01-0.08 wwlq=837) IMMATURE GRANULOCYTES-RELATIVE PERCENT (BEAKER) 1 % 0-1 (test crji=7000) PROTEIN, RANDOM [id number] 03:02:00 Test Item Value Reference Range Comments PROTEIN, URINE (BEAKER) (test dsci=3529) < mg/dL 0-14 CREATININE, RANDOM [id number] 02:56:00 Test Item Value Reference Range Comments CREATININE URINE (BEAKER) (test zbdy=803) 63.6 mg/dL Reference Range: No NormalsSODIUM, RANDOM [id number] 02:56:00 Test Item Value Reference Range Comments SODIUM URINE (BEAKER) (test cqud=891) 83 meq/L Reference Range: No NormalsHEMOGLOBIN AND [id number] 01:12:00 Test Item Value Reference Range Comments HEMOGLOBIN (BEAKER) (test iftz=215) 8.8 GM/DL 13.7-17.5 HEMATOCRIT (BEAKER) (test iiym=811) 28.1 % 40.1-51.0 POCT-GLUCOSE [id number] 21:32:00 Test Item Value Reference Range Comments POC-GLUCOSE METER (BEAKER) 142 mg/dL 70-110 TESTED AT [address] (test itot=3326) [place] [address] POCT-GLUCOSE [id number] 16:46:00 Test Item Value Reference Range Comments POC-GLUCOSE METER (BEAKER) 134 mg/dL 70-110 TESTED AT [address] (test brxo=3486) [place] [id number] HEMOGLOBIN AND [id number] 16:15:00 Test Item Value Reference Range Comments HEMOGLOBIN (BEAKER) (test upfz=271) 8.8 GM/DL 13.7-17.5 HEMATOCRIT (BEAKER) (test pdpt=663) 28.4 % 40.1-51.0 POCT-GLUCOSE [id number] 13:55:00 Test Item Value Reference Range Comments POC-GLUCOSE METER (BEAKER) 199 mg/dL 70-110 TESTED AT [address] (test orja=7720) [place] [id number] HEMOGLOBIN AND [id number] 12:41:00 Test Item Value Reference Range Comments HEMOGLOBIN (BEAKER) (test cikf=761) 8.5 GM/DL 13.7-17.5 HEMATOCRIT (BEAKER) (test hark=462) 28.1 % 40.1-51.0 [id number] 04:05:00 Test Item Value Reference Range Comments FERRITIN (BEAKER) (test magg=631) 40 ng/mL 5-275 IRON, TIBC, % SAT. (WITHOUT FERRITIN)2018-11-12 03:43:00 Test Item Value Reference Range Comments IRON (BEAKER) (test hjgq=655) 51.0 ug/dL 40.0-160.0 TOTAL IRON BINDING CAPACITY (BEAKER) (test 374 ug/dL 250-450 hrnc=474) IRON % SATURATION (2) (BEAKER) (test dsuo=2266) 14 % 20-55 RETICULOCYTE [id number] 03:41:00 Test Item Value Reference Range Comments RETICULOCYTE COUNT PCT (BEAKER) (test mqjc=127) 2.8 % 0.5-1.8 URINALYSIS W/ REFLEX URINE [id number] 03:33:00 Test Item Value Reference Range Comments COLOR (BEAKER) (test noem=423) Light Yellow CLARITY (BEAKER) (test giuk=563) Clear SPECIFIC GRAVITY UA (BEAKER) (test umfb=185) 1.005 1.001-1.035 PH UA (BEAKER) (test yljy=235) 5.5 5.0-8.0 PROTEIN UA (BEAKER) (test srlh=697) Negative Negative GLUCOSE UA (BEAKER) (test hgiv=456) Negative Negative KETONES UA (BEAKER) (test bqcg=882) Negative Negative BILIRUBIN UA (BEAKER) (test ourv=955) Negative Negative BLOOD UA (BEAKER) (test hqaz=764) Negative Negative NITRITE UA (BEAKER) (test wyfb=296) Negative Negative LEUKOCYTE ESTERASE UA (BEAKER) (test umtp=299) Small Negative UROBILINOGEN UA (BEAKER) (test hbyk=816) 0.2 mg/dL 0.2-1.0 RBC UA (BEAKER) (test svwc=362) 1 /HPF WBC UA (BEAKER) (test lvkj=512) 10 /HPF SQUAMOUS EPITHELIAL (BEAKER) (test kbcf=956) < /HPF HYALINE CASTS (BEAKER) (test gftx=331) 1 /LPF CRYSTALS, URINE (BEAKER) (test brbt=7584) Rare AMORPHOUS CRYSTALS (BEAKER) (test qxpy=3137) Occasional SOURCE(BEAKER) (test dvwa=7658) COMPREHENSIVE METABOLIC [id number] 01:37:00 Test Item Value Reference Range Comments TOTAL PROTEIN (BEAKER) 7.2 gm/dL 6.0-8.3 Specimen slightly (test btqz=586) hemolyzed ALBUMIN (BEAKER) (test 3.8 g/dL 3.5-5.0 Specimen slightly ymuk=9367) hemolyzed ALKALINE PHOSPHATASE 82 U/L 40-150 (BEAKER) (test zesb=499) BILIRUBIN TOTAL (BEAKER) 0.5 mg/dL 0.2-1.2 Specimen slightly (test ufzm=885) hemolyzed SODIUM (BEAKER) (test 128 meq/L 136-145 lkzi=537) POTASSIUM (BEAKER) (test 5.1 meq/L 3.5-5.1 Specimen slightly ueud=696) hemolyzed CHLORIDE (BEAKER) (test 99 meq/L 98-107 jgcr=206) CO2 (BEAKER) (test 19 meq/L 22-29 yslw=861) BLOOD UREA NITROGEN 36 mg/dL 7-21 (BEAKER) (test ijys=464) CREATININE (BEAKER) (test 1.86 mg/dL 0.57-1.25 Specimen slightly pxgd=611) hemolyzed GLUCOSE RANDOM (BEAKER) 117 mg/dL 70-105 (test akap=273) CALCIUM (BEAKER) (test 9.0 mg/dL 8.4-10.2 qdud=818) AST (SGOT) (BEAKER) (test 13 U/L 5-34 Specimen slightly sjqd=181) hemolyzed ALT (SGPT) (BEAKER) (test 10 U/L 6-55 Specimen slightly nsse=110) hemolyzed EGFR (BEAKER) (test 36 mL/min/1.73 sq m ESTIMATED GFR IS NOT aadh=7254) ACCURATE CREATININE CLEARANCE IN PREDICTING GLOMERULAR FILTRATION RATE. ESTIMATED GFR IS NOT APPLICABLE FOR DIALYSIS PATIENTS. PROTHROMBIN [id number] 01:05:00 Test Item Value Reference Range Comments PROTIME (BEAKER) (test ubsa=831) 18.4 seconds 11.7-14.7 INR (BEAKER) (test owlj=131) 1.5 <=5.9 RECOMMENDED COUMADIN/WARFARIN INR THERAPY RANGESSTANDARD DOSE: 2.0 - 3.0 Includes: PROPHYLAXIS forvenous thrombosis, systemic embolization; TREATMENT for venous thrombosis and/or pulmonary embolus.HIGH RISK: Target INR is 2.5-3.5 for patients with mechanical heart valves.CBC W/PLT COUNT & AUTO [id number] 00:57:00 Test Item Value Reference Range Comments WHITE BLOOD CELL COUNT (BEAKER) (test jqbz=745) 10.3 K/ L 3.5-10.5 RED BLOOD CELL COUNT (BEAKER) (test sttv=807) 3.37 M/ L 4.63-6.08 HEMOGLOBIN (BEAKER) (test vuim=083) 8.4 GM/DL 13.7-17.5 HEMATOCRIT (BEAKER) (test woom=944) 26.9 % 40.1-51.0 MEAN CORPUSCULAR VOLUME (BEAKER) (test lmgq=322) 79.8 fL 79.0-92.2 MEAN CORPUSCULAR HEMOGLOBIN (BEAKER) (test 24.9 pg 25.7-32.2 ftzp=302) MEAN CORPUSCULAR HEMOGLOBIN CONC (BEAKER) (test 31.2 GM/DL 32.3-36.5 hwqb=592) RED CELL DISTRIBUTION WIDTH (BEAKER) (test 18.0 % 11.6-14.4 yojc=512) PLATELET COUNT (BEAKER) (test qdht=791) 334 K/CU MM 150-450 MEAN PLATELET VOLUME (BEAKER) (test srwl=801) 9.3 fL 9.4-12.4 NUCLEATED RED BLOOD CELLS (BEAKER) (test 0 /100 WBC 0-0 klfv=302) NEUTROPHILS RELATIVE PERCENT (BEAKER) (test 61 % vhxg=022) LYMPHOCYTES RELATIVE PERCENT (BEAKER) (test 27 % iumx=573) MONOCYTES RELATIVE PERCENT (BEAKER) (test 8 % nete=630) EOSINOPHILS RELATIVE PERCENT (BEAKER) (test 3 % pocd=735) BASOPHILS RELATIVE PERCENT (BEAKER) (test 1 % hlwv=133) NEUTROPHILS ABSOLUTE COUNT (BEAKER) (test 6.30 K/ L 1.78-5.38 oqcn=410) LYMPHOCYTES ABSOLUTE COUNT (BEAKER) (test 2.73 K/ L 1.32-3.57 vvqd=726) MONOCYTES ABSOLUTE COUNT (BEAKER) (test 0.85 K/ L 0.30-0.82 dlnh=115) EOSINOPHILS ABSOLUTE COUNT (BEAKER) (test 0.30 K/ L 0.04-0.54 edoh=493) BASOPHILS ABSOLUTE COUNT (BEAKER) (test 0.05 K/ L 0.01-0.08 yyln=027) IMMATURE GRANULOCYTES-RELATIVE PERCENT (BEAKER) 1 % 0-1 (test kfcq=0192) POCT-GLUCOSE [id number] 21:06:00 Test Item Value Reference Range Comments POC-GLUCOSE METER (BEAKER) 138 mg/dL 70-110 TESTED AT [facility] [address] [facility] (test ejqd=1501) [facility] [address] BASIC METABOLIC [id number] 08:06:00 Test Item Value Reference Range Comments SODIUM (BEAKER) (test 140 meq/L 136-145 hylg=749) POTASSIUM (BEAKER) (test 3.7 meq/L 3.5-5.1 jzio=327) CHLORIDE (BEAKER) (test 106 meq/L 98-107 ghjb=029) CO2 (BEAKER) (test 26 meq/L 22-29 bfiq=858) BLOOD UREA NITROGEN 18 mg/dL 7-21 (BEAKER) (test cncs=185) CREATININE (BEAKER) (test 0.93 mg/dL 0.57-1.25 lpyr=741) GLUCOSE RANDOM (BEAKER) 118 mg/dL 70-105 (test glor=188) CALCIUM (BEAKER) (test 9.0 mg/dL 8.4-10.2 ygsh=432) EGFR (BEAKER) (test 79 mL/min/1.73 sq m ESTIMATED GFR IS NOT qtwe=1112) ACCURATE CREATININE CLEARANCE IN PREDICTING GLOMERULAR FILTRATION RATE. ESTIMATED GFR IS NOT APPLICABLE FOR DIALYSIS PATIENTS. CBC W/PLT COUNT & AUTO [id number] 07:34:00 Test Item Value Reference Range Comments WHITE BLOOD CELL COUNT (BEAKER) (test aozn=588) 9.9 K/ L 3.5-10.5 RED BLOOD CELL COUNT (BEAKER) (test vjhf=949) 3.81 M/ L 4.63-6.08 HEMOGLOBIN (BEAKER) (test fnhk=690) 10.6 GM/DL 13.7-17.5 HEMATOCRIT (BEAKER) (test tjqc=286) 32.7 % 40.1-51.0 MEAN CORPUSCULAR VOLUME (BEAKER) (test iosc=663) 85.8 fL 79.0-92.2 MEAN CORPUSCULAR HEMOGLOBIN (BEAKER) (test 27.8 pg 25.7-32.2 hetr=504) MEAN CORPUSCULAR HEMOGLOBIN CONC (BEAKER) (test 32.4 GM/DL 32.3-36.5 icyd=061) RED CELL DISTRIBUTION WIDTH (BEAKER) (test 16.5 % 11.6-14.4 jtep=697) PLATELET COUNT (BEAKER) (test ywae=813) 233 K/CU MM 150-450 MEAN PLATELET VOLUME (BEAKER) (test duqn=672) 10.2 fL 9.4-12.4 NUCLEATED RED BLOOD CELLS (BEAKER) (test 0 /100 WBC 0-0 jjyv=946) NEUTROPHILS RELATIVE PERCENT (BEAKER) (test 62 % ybwa=254) LYMPHOCYTES RELATIVE PERCENT (BEAKER) (test 26 % sbve=863) MONOCYTES RELATIVE PERCENT (BEAKER) (test 7 % kmbw=088) EOSINOPHILS RELATIVE PERCENT (BEAKER) (test 3 % ayrb=595) BASOPHILS RELATIVE PERCENT (BEAKER) (test 0 % ehlb=206) NEUTROPHILS ABSOLUTE COUNT (BEAKER) (test 6.11 K/ L 1.78-5.38 wonp=588) LYMPHOCYTES ABSOLUTE COUNT (BEAKER) (test 2.59 K/ L 1.32-3.57 trzr=165) MONOCYTES ABSOLUTE COUNT (BEAKER) (test 0.73 K/ L 0.30-0.82 ioyu=603) EOSINOPHILS ABSOLUTE COUNT (BEAKER) (test 0.34 K/ L 0.04-0.54 ikvj=896) BASOPHILS ABSOLUTE COUNT (BEAKER) (test 0.04 K/ L 0.01-0.08 juln=964) IMMATURE GRANULOCYTES-RELATIVE PERCENT (BEAKER) 1 % 0-1 (test jtee=[id number])
[2019-06-15] MEDS ORDERED: ONDANSETRON 4 MG/2 ML VIAL ONE (17:04)
[2019-06-15] MEDS ORDERED: ACETAMINOPHEN 500 MG TAB ONE (17:04)
[2019-06-15] MEDS ORDERED: NA CHLORIDE 0.9% 2,000 ML ONE (17:04)
[2019-06-15 17:35] LABS: Protime INR 3.63
[2019-06-15 17:53] LABS: ALT/SGPT 15 U/L (12-78); AST/SGOT 6 U/L (15-37); Albumin 2.8 g/dL (3.4-5.0); Alkaline Phosphatase 83 U/L (45-117); BUN Blood Urea Nitrogen 43 mg/dL (7-18); Bicarbonate 22 mmol/L (21-32); Bilirubin Direct 0.1 mg/dL (0-0.2); Bilirubin Total 0.3 mg/dL (0.2-1.0); CKMB Creatine Kinase MB 1.6 ng/mL (0.3-3.6); Creatine Phosphokinase 64 U/L (39-308); Glucose Level 94 mg/dL (74-106); Lipase 66 U/L (73-393); Potassium 3.5 mmol/L (3.5-5.1); Protein, Total 6.4 g/dL (6.4-8.2); Sodium Level 142 mmol/L (136-145); Troponin (Emerg Dept Use Only) < 0.02 ng/mL (0.0-0.045)
--- NOTE | 2019-06-15 18:10 | RAD REPORT ---
EXAM DESCRIPTION: RAD - Chest Single View - 06/15/2019 5:53 pm CLINICAL HISTORY: DYSPNEA Chest pain. COMPARISON: Chest Single View dated 02/02/2019; Chest Single View dated 02/01/2019; Chest Single View da sheila 01/31/2019; Chest Single View dated 01/30/2019 FINDINGS: Portable technique limits examination quality. The lungs are grossly clear. The heart is normal in size. No displaced fractures.Right-sided PICC darian e has tip in the SVC. IMPRESSION: No acute intrathoracic process suspected.
--- NOTE | 2019-06-15 18:11 | RAD REPORT ---
EXAM DESCRIPTION: RAD - Abdomen 1 View (KUB) - 06/15/2019 5:53 pm CLINICAL HISTORY: Abdominal distention;Abd pain Pain COMPARISON: No comparisonsAbdomen Pelvis W/Wo Contrast dated 01/30/2019 FINDINGS: Distention of the colon and small bowel loops noted in on organized pattern suggesting ile us. No pneumoperitoneum seen. No significant bony findings. Clear lung bases. IMPRESSION: Diffuse ileus is suspected.
[2019-06-15 18:30] LABS: Absolute Lymphocytes (CBC) 0.8 K/uL (0.7-4.9); Basophils % 0.3 % (0-1.3); Lymphocytes % 6.6 % (15.3-44.8); RBC Red Blood Cell Count 3.04 M/uL (4.33-5.43)
[2019-06-15 18:41] LABS: Hematocrit 20.6 % (39.6-49.0)
[2019-06-15 19:03] LABS: Urine Blood NEGATIVE (NEG); Urine Glucose NEGATIVE (NEG); Urine Protein TRACE (NEG); Urine Specific Gravity >1.030 (1.005-1.030)
[2019-06-15 19:16] LABS: Urine Amorphous Sediment 1+ /HPF (NONE SEEN); Urine Bacteria 20-50 /HPF (NONE SEEN); Urine Culture Reflex Order NOT NEEDED; Urine Mucus 2+ /HPF (NONE SEEN); Urine Yeast PRESENT (NONE SEEN)
--- NOTE | 2019-06-15 19:16 | RAD REPORT ---
EXAM DESCRIPTION: CT - Abdomen Pelvis Wo Contrast - 06/15/2019 7:01 pm CLINICAL HISTORY: Abdominal pain. ABD PAIN COMPARISON: Abdomen Pelvis W/Wo Contrast dated 01/30/2019 TECHNIQUE: CT imaging of the abdomen and pelvis was performed without contrast. Solid organ, bowel a nd vascular assessment is limited due to lack of IV and oral contrast. All CT scans are performed using dose optimization technique as appropriate and may include automated exposure control or mA/KV adjustment according to patient size. FINDINGS: Subsegmental atelectasis is present in both medial lung bases with trace bilateral pleural effusions.The stomach appears distended. Cholecystectomy clips are evident. Noncontrast assessment of the liver shows no focal mass or biliary dilatation. Small amount perisplen ic fluid is noted. The pancreas, adrenal glands and left kidney show no worrisome process. A punctate inferior left renal calculus is evident. 5.8 cm solid mass superior pole right kidney is noted, like ly neoplastic. Large amount of stool is retained in the colon. There is thickening of the wall of the sigmoid colon and rectum suggesting stercoral colitis. The appendix is normal. Moderate fat containing left inguin al hernia. Right total hip arthroplasty noted. IMPRESSION: Moderate stercoral colitis suspected with significant fecal retention throughout the col on noted. 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 A limited non-contrast examination was performed as detailed.
[2019-06-15 19:50] LABS: Anisocytosis 1+; Blood Morphology Comment NOTED (NOT SEEN); Platelet Estimate ADEQ; Poikilocytosis 1+; Urine White Blood Cell Casts OK
[2019-06-15] MEDS ORDERED: PIPER/TAZO/NS 3.375gm 3.375 GM/100 ML BAG ONE (19:52)
--- NOTE | 2019-06-15 20:16 | EDPHYS ---
Physician Documentation [facility] Name: Sam Suarez Age: 73 yrs Sex: Male : 1945 Arrival Date: 06/15/2019 Time: 16:53 Bed 7 Private MD: ED Physician Enio Schuster HPI: 06/15 21:15 This 73 yrs old Male presents to ER via EMS with complaints of Shortness Of jr8 Breath. 21:15 The patient has shortness of breath at rest. Onset: The symptoms/episode began/occurred jr8 acutely, today. Duration: The symptoms are continuous. The patient's shortness of breath has no apparent modifying factors. Associated signs and symptoms: Pertinent positives: abdominal distention . Severity of symptoms: At their worst the symptoms were moderate in the emergency department the symptoms are unchanged. The patient has not experienced similar symptoms in the past. The patient has been recently seen by a physician:. Patient has been undergoing tests for diarrhea and abdominal distension. Found to have c-diff and was started on oral Abx for this today. Patient started to have increase distension and shortness of breath today which EMS was called out for. Historical: - Allergies: 16:57 Dilaudid; tw2 16:57 Metformin HCl; tw2 - Home Meds: 17:26 albuterol sulfate 90 mcg/actuation Inhl HFAA 2 puffs every 6 hours [Active]; Aldactone tw2 25 mg Oral tab 1 tab once daily [Active]; alprazolam 0.5 mg Oral TbDL 1 tab [Active]; aspirin 325 mg Oral tab 1 tab once daily [Active]; Colace 100 mg Oral cap 1 cap 2 times per day [Active]; Coreg 12.5 mg Oral tab 1 tab every 12 hours [Active]; DuoNeb 0.5 mg-3 mg(2.5 mg base)/3 mL Inhl nebu 3 mL q6h prn [Active]; Eliquis 5 mg Oral tab 1 tab 2 times per day [Active]; finasteride 5 mg Oral tab 1 tab once daily [Active]; gabapentin 400 mg Oral cap 1 cap twice a day [Active]; glipizide 5 mg Oral tab 1 tab 2 times per day [Active]; hydralazine 10 mg Oral tab 1 tab 2 times per day [Active]; hydrocodone-acetaminophen 7.5-325 mg Oral tab 1 tab q6h prn for Pain [Active]; Lasix 40 mg Oral tab once daily [Active]; lisinopril 10 mg Oral tab 1 tab once daily [Active]; tamsulosin 0.4 mg Oral cp24 1 cap once daily [Active]; Zofran (as hydrochloride) 4 mg Oral tab 1 tabs Q4H prn [Active]; Symbicort 80-4.5 mcg/actuation inhalation HFAA 2 puffs 2 times per day [Active]; sertraline 100 mg Oral tab 1 tab once daily [Active]; Ranexa 500 mg Oral Tb12 2 times per day [Active]; Nicoderm CQ 14 mg/24 hr transdermal pt24 1 patch once daily [Active]; metolazone 5 mg Oral tab 1 tab once daily [Active]; - PMHx: 16:57 Anemia; Major Depressive Disorder; Hypokalemia; Hypertension; Hypomagnesemia; tw2 Hematuria; GERD; DYSPHAGIA; COPD; constipation; Diabetes - NIDDM; cognitive communication deficit; Chronic pain; Anxiety; ATHEROSCLEROSIS; Atrial Fib; B12 deficiency; benign prostatic hyperplasia; CHF; CKD; - Immunization history:: Adult Immunizations. - Social history:: Smoking status: . - Ebola Screening: : Patient denies travel to an Ebola-affected area in the 21 days before illness onset. ROS: 21:15 Eyes: Negative for injury, pain, redness, and discharge, ENT: Negative for injury, jr8 pain, and discharge, Neck: Negative for injury, pain, and swelling, Cardiovascular: Negative for chest pain, palpitations, and edema, Back: Negative for injury and pain, MS/Extremity: Negative for injury and deformity, Skin: Negative for injury, rash, and discoloration, Neuro: Negative for headache, weakness, numbness, tingling, and seizure. 21:15 Respiratory: Positive for shortness of breath, wheezing. 21:15 Abdomen/GI: Positive for abdominal pain, nausea, diarrhea, abdominal distension, Negative for vomiting, anorexia, dysphagia, hematemesis, rectal pain, rectal bleeding, bowel incontinence, flatulence. Exam: 21:15 Eyes: Pupils equal round and reactive to light, extra-ocular motions intact. Lids and jr8 lashes normal. Conjunctiva and sclera are non-icteric and not injected. Cornea within normal limits. Periorbital areas with no swelling, redness, or edema. ENT: Nares patent. No nasal discharge, no septal abnormalities noted. Tympanic membranes are normal and external auditory canals are clear. Oropharynx with no redness, swelling, or masses, exudates, or evidence of obstruction, uvula midline. Mucous membranes moist. Neck: Trachea midline, no thyromegaly or masses palpated, and no cervical lymphadenopathy. Supple, full range of motion without nuchal rigidity, or vertebral point tenderness. No Meningismus. Back: No spinal tenderness. No costovertebral tenderness. Full range of motion. Skin: Warm, dry with normal turgor. pale in appearance with no rashes, no lesions, and no evidence of cellulitis. MS/ Extremity: Pulses equal, no cyanosis. Neurovascular intact. Full, normal range of motion. Neuro: Awake and alert, GCS 15, oriented to person, place, time, and situation. Cranial nerves II-XII grossly intact. Motor strength 5/5 in all extremities. Sensory grossly intact. Cerebellar exam normal. Normal gait. 21:15 Cardiovascular: Rate: tachycardic, Rhythm: irregularly irregular, Pulses: Pulses are 2+ in right radial artery and left radial artery. Heart sounds: normal, normal S1and S2, no S3 or S4, no murmur, no rub, no gallop, Edema: 2+ edema to level of left midcalf, left ankle, left foot, right midcalf, right ankle and right foot, JVD: is not appreciated. 21:15 Respiratory: mild respiratory distress is noted, Respirations: tachypnea, Breath sounds: wheezing: expiratory that is moderate, is heard diffusely. 21:15 Abdomen/GI: Inspection: distension, that is moderate, Bowel sounds: high pitched, all quadrants. Palpation: soft, in all quadrants, mild abdominal tenderness, in the abdomen diffusely, mass, is not appreciated, rebound tenderness, is not appreciated, voluntary guarding, is not appreciated, involuntary guarding, is not appreciated, no appreciated organomegaly, Indicators: McBurney's point is not tender, Castillo's sign is negative, Rovsing's sign is negative, Liver: tenderness, is not appreciated. Vital Signs: 16:54 BP 106 / 72; Pulse 85; Resp 26; Temp 98.3(O); Pulse Ox 100% on 2 lpm NC; aa5 16:59 Weight 113.4 kg (R); tw2 18:29 BP 103 / 65; Pulse 103; Resp 26; Pulse Ox 100% on 2 lpm NC; tw2 19:30 BP 122 / 74; Pulse 98; Resp 18; Pulse Ox 100% on 2 lpm NC; lp1 20:15 BP 99 / 56; Pulse 97; Resp 19; Pulse Ox 99% on 2 lpm NC; lp1 21:00 BP 119 / 64; Pulse 98; Resp 23; Temp 97.2(O); Pulse Ox 99% on 2 lpm NC; lp1 21:30 BP 115 / 65; Pulse 98; Resp 17; Pulse Ox 97% on 2 lpm NC; lp1 MDM: 16:57 Patient medically screened. jr8 20:10 Data reviewed: vital signs, nurses notes, lab test result(s), radiologic studies, CT jr8 scan, plain films. Data interpreted: Pulse oximetry: on room air is 100 %. Interpretation: normal. Counseling: I had a detailed discussion with the patient and/or guardian regarding: the historical points, exam findings, and any diagnostic results supporting the discharge/admit diagnosis, lab results, radiology results, the need for further work-up and treatment in the hospital. ED course: Dr. Barbosa consulted and will see patient . 21:14 ED course: Dr. Peoples consulted as well and will see patient . 06/15 16:57 Order name: Urine Culture 06/15 16:57 Order name: Basic Metabolic Panel; Complete Time: 17:54 06/15 16:57 Order name: Blood Culture Adult (2) 06/15 16:57 Order name: CBC with Diff; Complete Time: 19:59 06/15 16:57 Order name: Ckmb; Complete Time: 17:54 06/15 16:57 Order name: CPK; Complete Time: 17:54 06/15 16:57 Order name: Lactate; Complete Time: 18:47 06/15 16:57 Order name: LFT's; Complete Time: 17:54 06/15 16:57 Order name: Lipase; Complete Time: 17:54 06/15 16:57 Order name: Procalcitonin; Complete Time: 18:49 16 16:57 Order name: Protime (+inr); Complete Time: 17:54 [facility] 06/15 16:57 Order name: Ptt, Activated; Complete Time: 17:54 [facility] 06/15 16:57 Order name: Troponin (emerg Dept Use Only); Complete Time: 17:54 [facility] 06/15 16:57 Order name: Urine Microscopic Only; Complete Time: 19:19 [facility] 06/15 16:57 Order name: Chest Single View XRAY; Complete Time: 19:01 [facility] 06/15 17:01 Order name: Abdomen 1 View (KUB) XRAY; Complete Time: 19:01 [facility] 06/15 18:13 Order name: CT Abd/Pelvis - Without Contrast; Complete Time: 19:37 [facility] 06/15 18:23 Order name: EKG Electrocardiogram [facility] 06/15 18:36 Order name: Urine Dipstick--Ancillary (enter results); Complete Time: 19:04 [facility] 06/15 18:45 Order name: CBC Smear Scan; Complete Time: 19:59 [facility] 06/15 20:16 Order name: TS [facility] 06/15 20:16 Order name: Flu; Complete Time: 02:49 [facility] 06/15 21:25 Order name: Packed RBC Leukored [facility] 06/15 21:54 Order name: Social Service Consult [facility] 06/15 16:57 Order name: Cath; Complete Time: 18:40 [facility] 06/15 16:57 Order name: Cardiac monitoring; Complete Time: 17:20 [facility] 06/15 16:57 Order name: EKG - Nurse/Tech; Complete Time: 18:28 [facility] 06/15 16:57 Order name: IV Saline Lock - Large Bore; Complete Time: 17:21 [facility] 06/15 16:57 Order name: Labs collected and sent; Complete Time: 17:21 [facility] 06/15 16:57 Order name: O2 Per Protocol; Complete Time: 17:21 [facility] 06/15 16:57 Order name: O2 Sat Monitoring; Complete Time: 17:21 [facility] 06/15 16:57 Order name: Urine Dipstick-Ancillary (obtain specimen); Complete Time: 18:28 8 Administered Medications: 17:04 Not Given (Duplicate Order): Acetaminophen 1000 mg PO once tw2 17:05 Drug: Zofran 4 mg Route: IVP; Site: right antecubital; tw2 18:09 Follow up: Response: Nausea is decreased bp 17:19 Drug: NS 0.9% (30 ml/kg) 30 ml/kg {Note: 2L ordered per KOBI Valverde and administered .} tw2 Route: IV; Rate: bolus; Site: right antecubital; 19:30 Follow up: IV Status: Completed infusion; IV Intake: 2000ml lp1 20:00 Drug: Zosyn 3.375 grams Route: IVPB; Infused Over: 60 mins; Site: right antecubital; lp1 21:00 Follow up: IV Status: Completed infusion; IV Intake: 100ml lp1 20:35 Drug: SOLU-Medrol 125 mg Route: IVP; Site: right antecubital; lp1 21:37 Follow up: Response: No adverse reaction lp1 20:35 Drug: Albuterol - atroVENT (3:1) (2.5 mg - 0.5 mg) 3 ml Route: Nebulizer; lp1 21:37 Follow up: Response: No adverse reaction lp1 Point of Care Testing: Guaiac: 20:45 Stool Guaiac: Positive; Stool Hemoccult Control: Pass; lp1 Disposition: 06/16 07:45 Co-signature as Attending Physician, Enio Schuster MD I agree with the assessment and cristian plan of care. Disposition: 06/15/19 20:14 Hospitalization ordered by Aaron Gonzalez for Inpatient Admission. Preliminary diagnosis are Stercoral Colitis, Gastrointestinal hemorrhage, unspecified, Bronchitis, not specified as acute or chronic, Acute kidney failure, Urinary tract infection, site not specified, Other sepsis, Enterocolitis due to Clostridium difficile. - Bed requested for Intensive Care Unit. - Status is Inpatient Admission. ea - Condition is Fair. - Problem is new. - Symptoms have improved. UTI on Admission? No Signatures: Dispatcher [employer] Enio Koroma MD MD cha Ballard, Brenda, RN RN bb Pena, Laura RN RN lp1 Tunde Valverde PA PA jrCinda Lnog RN RN tw2 Angle Jama RN RN ea Peltier, Brian RN bp Corrections: (The following items were deleted from the chart) 06/15 18:28 16:57 Accucheck ordered. jrIshmael tw2 20:17 20:14 Hospitalization Ordered by Aaron Carlos BEAULIEU for Inpatient Admission. Preliminary jr8 diagnosis is Stercoral Colitis; Gastrointestinal hemorrhage, unspecified; Bronchitis, not specified as acute or chronic; Acute kidney failure; Urinary tract infection, site not specified; Other sepsis. Bed requested for Telemetry/MedSurg (Inpatient). Status is Inpatient Admission. Condition is Fair. Problem is new. Symptoms have improved. UTI on Admission? No. jr8 20:48 20:17 06/15/2019 20:14 [facility] Preliminary diagnosis is Stercoral Colitis; Gastrointestinal hemorrhage, unspecified; Bronchitis, not specified as acute or chronic; Acute kidney failure; Urinary tract infection, site not specified; Other sepsis; Enterocolitis due to Clostridium difficile. Bed requested for Telemetry/MedSurg (Inpatient). Status is Inpatient Admission. Condition is Fair. Problem is new. Symptoms have improved. UTI on Admission? No. jr8 21:47 20:48 06/15/2019 20:14 Hospitalization Ordered by Aaron Carlos BEAULIEU for Inpatient bb Admission. Preliminary diagnosis is Stercoral Colitis; Gastrointestinal hemorrhage, unspecified; Bronchitis, not specified as acute or chronic; Acute kidney failure; Urinary tract infection, site not specified; Other sepsis; Enterocolitis due to Clostridium difficile. Bed requested for Intensive Care Unit. Status is Inpatient Admission. Condition is Fair. Problem is new. Symptoms have improved. UTI on Admission? No. jr8 22:31 21:47 06/15/2019 20:14 Hospitalization Ordered by Aaron Carlos BEAULIEU for Inpatient ea Admission. Preliminary diagnosis is Stercoral Colitis; Gastrointestinal hemorrhage, unspecified; Bronchitis, not specified as acute or chronic; Acute kidney failure; Urinary tract infection, site not specified; Other sepsis; Enterocolitis due to Clostridium difficile. Bed requested for Intensive Care Unit. Status is Inpatient Admission. Condition is Fair. Problem is new. Symptoms have improved. UTI on Admission? No. bb
--- NOTE | 2019-06-15 20:16 | ER ---
Nurse's Notes [facility] Name: Sam Suarez Age: 73 yrs Sex: Male : 1945 Arrival Date: 06/15/2019 Time: 16:53 Bed 7 Private MD: Diagnosis: Stercoral Colitis;Gastrointestinal hemorrhage, unspecified;Bronchitis, not specified as acute or chronic;Acute kidney failure;Urinary tract infection, site not specified;Other sepsis;Enterocolitis due to Clostridium difficile Presentation: 06/15 16:53 Presenting complaint: EMS states: SOB since yesterday, EMS reports O2 sat 80-85% RA aa5 upon scene arrival. Also reports nausea/vomiting/diarrhea. EMS reports pt is on contact precautions at [facility] for C-Diff. R arm PICC noted. EMS also reports Temp 102.0F. 16:53 Transition of care: [facility]. Onset of symptoms was May 2019. Initial Sepsis Screen: Does the patient meet any 2 criteria? RR > 20 per min. Temp <36.0*C (96.8*F)) or > 38.3*C (100.9*F). Does the patient have a suspected source of infection? Yes: Other: vomiting/diarrhea. Care prior to arrival: Medication(s) given: Albuterol Neb x 1, Atrovent Neb x 1, Tylenol 1000mg PO, Solu-Medrol 125mg IVP IV initiated. 20 GA, in the right antecubital area, Glucose check: 111. 16:53 Acuity: AMANDA 2 aa5 16:53 Method Of Arrival: EMS: [facility] aa5 17:22 Risk Assessment: Do you want to hurt yourself or someone else? Patient reports no tw2 desire to harm self or others. Triage Assessment: 18:29 General: Appears. tw2 Historical: - Allergies: 16:57 Dilaudid; tw2 16:57 Metformin HCl; tw2 - Home Meds: 17:26 albuterol sulfate 90 mcg/actuation Inhl HFAA 2 puffs every 6 hours [Active]; Aldactone tw2 25 mg Oral tab 1 tab once daily [Active]; alprazolam 0.5 mg Oral TbDL 1 tab [Active]; aspirin 325 mg Oral tab 1 tab once daily [Active]; Colace 100 mg Oral cap 1 cap 2 times per day [Active]; Coreg 12.5 mg Oral tab 1 tab every 12 hours [Active]; DuoNeb 0.5 mg-3 mg(2.5 mg base)/3 mL Inhl nebu 3 mL q6h prn [Active]; Eliquis 5 mg Oral tab 1 tab 2 times per day [Active]; finasteride 5 mg Oral tab 1 tab once daily [Active]; gabapentin 400 mg Oral cap 1 cap twice a day [Active]; glipizide 5 mg Oral tab 1 tab 2 times per day [Active]; hydralazine 10 mg Oral tab 1 tab 2 times per day [Active]; hydrocodone-acetaminophen 7.5-325 mg Oral tab 1 tab q6h prn for Pain [Active]; Lasix 40 mg Oral tab once daily [Active]; lisinopril 10 mg Oral tab 1 tab once daily [Active]; tamsulosin 0.4 mg Oral cp24 1 cap once daily [Active]; Zofran (as hydrochloride) 4 mg Oral tab 1 tabs Q4H prn [Active]; Symbicort 80-4.5 mcg/actuation inhalation HFAA 2 puffs 2 times per day [Active]; sertraline 100 mg Oral tab 1 tab once daily [Active]; Ranexa 500 mg Oral Tb12 2 times per day [Active]; Nicoderm CQ 14 mg/24 hr transdermal pt24 1 patch once daily [Active]; metolazone 5 mg Oral tab 1 tab once daily [Active]; - PMHx: 16:57 Anemia; Major Depressive Disorder; Hypokalemia; Hypertension; Hypomagnesemia; tw2 Hematuria; GERD; DYSPHAGIA; COPD; constipation; Diabetes - NIDDM; cognitive communication deficit; Chronic pain; Anxiety; ATHEROSCLEROSIS; Atrial Fib; B12 deficiency; benign prostatic hyperplasia; CHF; CKD; - Immunization history:: Adult Immunizations. - Social history:: Smoking status: . - Ebola Screening: : Patient denies travel to an Ebola-affected area in the 21 days before illness onset. Screenin:55 Abuse screen: Denies threats or abuse. Nutritional screening: No deficits noted. tw2 Tuberculosis screening: No symptoms or risk factors identified. Fall Risk Secondary diagnosis (15 points) impaired mobility. Assessment: 16:53 General: Appears in no apparent distress. obese, Behavior is cooperative, appropriate tw2 for age. Pain: Denies pain. Neuro: Level of Consciousness is awake, alert, obeys commands, Oriented to person, place, situation. Cardiovascular: Heart tones S1 S2 Patient's skin is warm and dry. Respiratory: Airway is patent Respiratory effort is even, unlabored, Respiratory pattern is regular, tachypnea Breath sounds with wheezes bilaterally. GI: Abdomen is round distended, obese, Bowel sounds present X 4 quads. Parent/caregiver reports the patient having diarrhea, contact precautions for C-DIFF. GI: Reports nausea. : No signs and/or symptoms were reported regarding the genitourinary system. EENT: No signs and/or symptoms were reported regarding the EENT system. Derm: No signs and/or symptoms reported regarding the dermatologic system. Skin is fragile, is thin, with poor turgor Skin is dry. Musculoskeletal: Range of motion: intact in all extremities. 16:55 Reassessment: KOBI Nova at bedside at this time. tw2 18:29 Reassessment: Patient appears in no apparent distress at this time. No changes from tw2 previously documented assessment. Patient and/or family updated on plan of care and expected duration. Pain level reassessed. pt very hard of hearing, can read lips well per spouse. 19:15 Reassessment: Patient in CT at this time; Contact isolation remains in place. lp1 20:00 General: Appears in no apparent distress. Neuro: Level of Consciousness is awake, lp1 alert, obeys commands, Oriented to person, place, situation. Cardiovascular: Edema pitting to left midcalf, left ankle, left foot, left toes, right midcalf, right ankle, right foot and right toes. Respiratory: Reports shortness of breath Respiratory effort is even, Respiratory pattern is regular, Breath sounds with crackles bilaterally. GI: Abdomen is round distended. : Iraheta in place to gravity drainage Urine is Emmanuelle colored. Derm: Skin is thin, Skin is dry, Skin is pale. 20:07 Reassessment: Provider at bedside to discuss plan of care with patient and . lp1 20:35 Reassessment: Patient had BM at this time; linens changed. lp1 20:45 Reassessment: Dr. Prezas at bedside to discuss care with patient and . lp1 Vital Signs: 16:54 BP 106 / 72; Pulse 85; Resp 26; Temp 98.3(O); Pulse Ox 100% on 2 lpm NC; aa5 16:59 Weight 113.4 kg (R); tw2 18:29 BP 103 / 65; Pulse 103; Resp 26; Pulse Ox 100% on 2 lpm NC; tw2 19:30 BP 122 / 74; Pulse 98; Resp 18; Pulse Ox 100% on 2 lpm NC; lp1 20:15 BP 99 / 56; Pulse 97; Resp 19; Pulse Ox 99% on 2 lpm NC; lp1 21:00 BP 119 / 64; Pulse 98; Resp 23; Temp 97.2(O); Pulse Ox 99% on 2 lpm NC; lp1 21:30 BP 115 / 65; Pulse 98; Resp 17; Pulse Ox 97% on 2 lpm NC; lp1 ED Course: 16:53 Patient arrived in ED. tw2 16:53 Tunde Valverde PA is PHCP. tw2 16:53 Patient placed in an exam room, on a stretcher. aa5 16:53 Bed in low position. Call light in reach. Side rails up X2. [employer] director on. Pulse tw2 ox on. NIBP on. 16:55 Cinda Moreno RN is Primary Nurse. tw2 16:55 Arm band placed on. tw2 17:02 Triage completed. aa5 17:56 Chest Single View XRAY In Process Unspecified. EDMS 17:56 Abdomen 1 View (KUB) XRAY In Process Unspecified. EDMS 18:12 Enio Schuster MD is Attending Physician. jr8 18:25 Iraheta cath inserted, using sterile technique, 18 Fr., by nh, balloon inflated, to tw2 gravity drainage, urine specimen collected. Shawn Storm served as assistant bookkeeper, spouse at bedside at this time returned emmanuelle urine. Patient tolerated well. 18:30 Urine collected: Iraheta catheter specimen, tea colored. dh3 18:42 Notified Nurse Practitioner and/or Physician Design Leader of a critical lab result(s), h\T\h.sg 19:04 CT Abd/Pelvis - Without Contrast In Process Unspecified. EDMS 19:05 Report given to CARA Manuel and CARA Rothman. tw2 20:11 Aaron Gonzalez DO is Hospitalizing Provider. jr8 20:16 No provider procedures requiring assistance completed. Patient admitted, IV remains in lp1 place. Administered Medications: 17:04 Not Given (Duplicate Order): Acetaminophen 1000 mg PO once tw2 17:05 Drug: Zofran 4 mg Route: IVP; Site: right antecubital; tw2 18:09 Follow up: Response: Nausea is decreased bp 17:19 Drug: NS 0.9% (30 ml/kg) 30 ml/kg {Note: 2L ordered per KOBI Valverde and administered .} tw2 Route: IV; Rate: bolus; Site: right antecubital; 19:30 Follow up: IV Status: Completed infusion; IV Intake: 2000ml lp1 20:00 Drug: Zosyn 3.375 grams Route: IVPB; Infused Over: 60 mins; Site: right antecubital; lp1 21:00 Follow up: IV Status: Completed infusion; IV Intake: 100ml lp1 20:35 Drug: SOLU-Medrol 125 mg Route: IVP; Site: right antecubital; lp1 21:37 Follow up: Response: No adverse reaction lp1 20:35 Drug: Albuterol - atroVENT (3:1) (2.5 mg - 0.5 mg) 3 ml Route: Nebulizer; lp1 21:37 Follow up: Response: No adverse reaction lp1 Point of Care Testing: Guaiac: 20:45 Stool Guaiac: Positive; Stool Hemoccult Control: Pass; lp1 Intake: 19:30 IV: 2000ml; Total: 2000ml. lp1 21:00 IV: 100ml; Total: 2100ml. lp1 Outcome: 20:14 Decision to Hospitalize by Provider. jr8 20:18 Instructed on the need for admit. lp1 21:30 critical lp1 22:15 Admitted to ICU accompanied by nurse, accompanied by tech, family with patient, via lp1 stretcher, room 8, with oxygen, on monitor, with chart, Report called to Graciela Hinojosa RN 22:20 Patient left the ED. lp1 Signatures: Dispatcher [employer] EDMS Sergey Wooten RN RN sg Antonella Whittaker RN RN aa5 Mar Willoughby RN RN lp1 Tunde Valverde PA PA jr8 Cinda Moreno, RN RN tw2 Shanna Felipe 3 Angle Jama, RN RN Andrea Barnett, RN RN bp Corrections: (The following items were deleted from the chart) 17:05 16:53 Presenting complaint: EMS states: SOB since yesterday, EMS reports O2 sat 80-85% aa5 RA upon scene arrival. Also reports nausea/vomiting/diarrhea. EMS reports pt is on contact precautions at [facility] for C-Diff. R arm PICC noted. aa5 19:08 17:10 NS 0.9% (30 ml/kg) 30 ml/kg IV at bolus in right antecubital tw2 tw2 19:08 18:41 Response: No adverse reaction; IV Status: Completed infusion; IV Intake: 2000ml tw2 tw2 19:09 17:19 NS 0.9% (30 ml/kg) 30 ml/kg IV at bolus in right antecubital tw2 tw2 20:58 19:15 Reassessment: Patient in CT at this time lp1 lp1 21:36 21:00 BP 119 / 64; Pulse 98bpm; Resp 23bpm; Pulse Ox 99% 2 lpm Nasal Cannula; lp1 lp1 22:49 22:31 Patient left the ED. hernando lp1
[2019-06-15] MEDS ORDERED: ALBUTEROL 2.5 MG/3 ML NEB SOL ONE (20:26)
[2019-06-15] MEDS ORDERED: METHYLPREDNISOLONE 125 MG INJ ONE (20:26)
[2019-06-15] MEDS ORDERED: IPRATROPIUM BROM 0.5MG/2.5ML ONE (20:26)
--- NOTE | 2019-06-15 21:41 | P.HP ---
Certification for Inpatient Patient admitted to: Inpatient With expected LOS: >2 Midnights Patient will require the following post-hospital care: Other (penitentiary) Practitioner: I am a practitioner with admitting privileges, knowledge of patient current condition, hospital course, and medical plan of care. Services: Services provided to patient in accordance with Admission requirements found in Title 42 Section 412.3 of the Code of Federal Regulations Patient History Date of Service: 06/15/19 Primary Care Provider: penitentiary provider Reason for admission: Shortness of breath History of Present Illness: 73-year-old male with multiple medical problems including renal cell carcinoma, chronic atrial fibrillation on chronic anti coagulation therapy, history of C diff colitis, COPD. Patient was sent from the [facility] to the ER due to increasing shortness of breath and abdominal distention. Patient with history of C diff colitis. Patient was to start oral vancomycin due to recurrent C diff colitis. Patient also had fever 102. Most of the information came from the ER physician. In the ER patient evaluated. Patient appeared to have wheezing and shortness of breath upon arrival. Patient was given Solu-Medrol and breathing treatment. Upon further evaluation, lab showed a white count of 12.8, hemoglobin of 6.7. Platelet count 206. Sodium 142, potassium 3.5, BUN of 43 creatinine 2.47 with a GFR of 26. Glucose 94. Abdominal distention noted. KUB showed possible ileus. Chest x-ray showed no pneumonia. CT abdomen and pelvis showed fecal retention with stercoral colitis. 5.8 right renal cell mass noted. Lactic acid unremarkable. Pro calcitonin unremarkable. Lipase unremarkable. INR 3.63 with a PT of 40.8. Prior GFR 62. Prior H&H showed a hemoglobin of 8.3. Patient was admitted for further evaluation and treatment. Transfusion x2 units have been ordered. Vancomycin to be initiated. Patient admitted to ICU. When I saw the patient ER, at bedside. Patient appears stable. Advanced directives address in detail. Patient wishes to be do not resuscitate. This was addressed in detail with the who was present. Patient understands his chronic medical problems and current medical issues. Allergies hydromorphone [From Dilaudid] Allergy (Verified 01/31/19 02:59) Nausea/Vomiting metformin Allergy (Verified 01/31/19 02:59) Rash Home medications list reviewed: Yes Home Medications: ALPRAZolam [Alprazolam] 1 tab PO BEDTIME 01/31/19 Apixaban [Eliquis] 1 tab PO BID 01/31/19 Atorvastatin Calcium [Lipitor*] 10 mg PO BEDTIME 01/31/19 Atorvastatin Calcium [Lipitor*] 10 mg PO BEDTIME 01/31/19 Budesonide/Formoterol Fumarate [Symbicort 80-4.5 Mcg Inhaler] 2 puff IH QID 01/16 Carvedilol 1 tab PO BID 01/31/19 Gabapentin 1 tab PO TID 01/31/19 Glimepiride 2 mg PO DAILY 01/31/19 Hydrocodone Bit/Acetaminophen [Hydrocodon-Acetaminoph 7.5-325] 1 each PO Q6H PRN 01/31/19 Ipratropium/Albuterol Sulfate [Iprat-Albut 0.5-3(2.5) mg/3 ml] 3 ml IH Q4H PRN 01/31/19 Lactulose 20 gm PO Q12H PRN 01/31/19 Lisinopril [Prinivil*] 1 tab PO Q12H 01/31/19 Niacin [Niacin ER] 1,000 mg PO BEDTIME 01/31/19 Omeprazole 20 mg PO DAILY 01/31/19 Promethazine HCl 25 mg PO Q8H PRN 01/31/19 Ranolazine [Ranolazine ER] 1 tab PO BID 01/31/19 Sertraline HCl 50 mg PO DAILY 01/31/19 Sotalol HCl [Betapace*] 80 mg PO BID 01/31/19 Tamsulosin HCl 0.4 mg PO DAILY 01/31/19 - Past Medical/Surgical History Diabetic: Yes -: Hypertension -: CHF, diastolic dysfunction -: COPD, former smoker -: Renal cell carcinoma -: Atrial fibrillation on chronic anti coagulation -: Atherosclerotic Heart disease -: Diabetes mellitus type 2 -: History of falls -: History of recurring UTI -: Cataracts -: GERD -: Benign prostatic hyperplasia -: Cholecystectomy -: Hernia repair -: Cardiac stents x2 -: Colon polyp removal -: Appendectomy Psychosocial/ Personal History: The patient is 48 years, has 2 children and 1 adopted child. 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 Patient currently at [facility]. - Family History Mother -: Cancer Notes: breast cancer Sister -: Cancer Notes: ovarian cancer Brother -: Heart disease Notes: heart attack - Social History Smoking Status: Unknown if ever smoked Alcohol use: No CD- Drugs: No Caffeine use: Yes Place of Residence: [facility] Review of Systems General: Weakness, As per HPI Eyes: Unremarkable ENT: Unremarkable Respiratory: Shortness of Breath, As per HPI Cardiovascular: As per HPI Gastrointestinal: Nausea, Distention, As per HPI Genitourinary: Unremarkable Musculoskeletal: Pedal edema, As per HPI Integumentary: Unremarkable Neurological: Unremarkable Lymphatics: Unremarkable Physical Examination - Physical Exam General: Alert, In no apparent distress, Oriented x3, Cooperative, Other ( Patient appears pale) HEENT: Atraumatic, Normocephalic, Other (Dry mucous membranes) Neck: Supple Respiratory: Expiratory wheezes (Occasional wheezing bilateral) Cardiovascular: Irregular heart rate/rhythm (AFib rate) Gastrointestinal: Hypoactive, No masses, No rebound, No guarding, Distended, Tenderness (Mild tenderness throughout) Musculoskeletal: No erythema, No tenderness, No warmth Integumentary: Tenderness/swelling (1 to 2+ pitting edema to the lower extremities bilateral) Neurological: Normal speech, Normal strength at 5/5 x4 extr, Normal tone, Normal affect - Studies Laboratory Data (last 24 hrs) 06/15/19 18:12: WBC 12.8 H, Hgb 6.7 L*, Hct 20.6 L*, Plt Count 206 06/15/19 17:17: PT 40.8 H, INR 3.63, APTT 37.4 H 06/15/19 17:17: Sodium 142, Potassium 3.5, BUN 43 H, Creatinine 2.47 H, Glucose 94, Total Bilirubin 0.3, AST 6 L, ALT 15, Alkaline Phosphatase 83, Lipase 66 L Assessment and Plan - Plan Impression: Abdominal distention with shortness of breath secondary to ileus with stercoral colitis and recurrent C diff colitis Acute on chronic anemia possible upper GI bleed complicated with chronic anti coagulation therapy for AFib Acute on chronic renal failure stage 4 Right renal mass suspect renal cell carcinoma Chronic atrial fibrillation on chronic anti coagulation therapy COPD CHF, diastolic dysfunction BPH Plan: Abdominal distention with shortness of breath secondary to ileus with stercoral colitis and recurrent C diff colitis: Patient will be admitted to ICU for further treatment. Will start IV vancomycin. Will keep the patient NPO. GI consulted. GI is aware if patient. Surgery also consulted to further evaluate. Await further recommendation. Continue to monitor closely. Blood cultures obtained. Continue to monitor electrolytes closely. Will discontinue chronic anti coagulation therapy-Eliquis due to acute anemia. Nephrology consulted due to acute on chronic renal failure. Cardiology consulted due to chronic atrial fibrillation on chronic anti coagulation therapy. Advanced directives addressed in detail with the patient with present. Patient wishes to be do not resuscitate. Will have social media intern fill out forms to fully address tomorrow. Daytime hospitalist team will continue his care. Acute on chronic anemia possible upper GI bleed complicated with chronic anti coagulation therapy for AFib: Patient will be transfused 2 units of packed red blood cells. Will monitor hemoglobin closely. Will maintain hemoglobin above 8.0. GI consulted. Patient may require EGD further evaluation. Will discontinue Eliquis at this time. GI and cardiology consulted. Acute on chronic renal failure stage 4: Will monitor this closely. Patient to get transfusion of blood. Patient to get IV Lasix to prevent CHF exacerbation. Nephrology consulted to further evaluate. Await recommendation.. Right renal mass suspect renal cell carcinoma: Patient with known renal mass likely renal cell carcinoma. Patient has gotten there in the past. Patient likely not a candidate for continuation of therapy. Chronic atrial fibrillation on chronic anti coagulation therapy: Eliquis currently on hold due to acute anemia. May tried to continue sotalol. Will provide IV metoprolol if required. Cardiology consulted to further assess and make recommendations. COPD: Continue COPD medication. Maintain sats above 94%. CHF, diastolic dysfunction: No exacerbation noted at this time. Patient will get IV Lasix after each unit of blood. Will monitor closely. BPH: Patient may need to restart medication once stable. Discharge Plan: Detention Plan to discharge in: Greater than 2 days - Advance Directives Does patient have a Living Will: No Does patient have a Durable POA for Healthcare: Yes - Code Status/Comfort Care Code Status Assessed: Yes (Patient is do not resuscitate. Addressed in detail with present) Time Spent Managing Pts Care (In Minutes): 65
[2019-06-15] MEDS ORDERED: ACETAMINOPHEN 650MG/RECT SUPP RECT PRN (22:17)
[2019-06-15] MEDS ORDERED: METOPROLOL TARTRATE 5 MG/5 ML INJ IV PRN (22:17)
[2019-06-15] MEDS ORDERED: ONDANSETRON 4 MG/2 ML VIAL IV PRN (22:17)
[2019-06-15] MEDS ORDERED: VANCOMYCIN 2 GM in NA CHLORIDE 0.9% 500 ML IVPB SCH (23:00)
[2019-06-15] MEDS ORDERED: NA CHLORIDE 0.9% 250 ML ONE ×2 (23:03→23:23)
[2019-06-15] MEDS ORDERED: PANTOPRAZOLE 40 MG INJ ONE (23:23)
[2019-06-15] MEDS: PANTOPRAZOLE INJ 80 MG in NA CHLORIDE 0.9% 250 ML IV SCH (23:36)
[2019-06-16] MEDS ORDERED: NA CHLORIDE 0.9% 500 ML ONE (00:45)
[2019-06-16] MEDS ORDERED: VANCOMYCIN 1 GM/VIAL ONE (00:45)
[2019-06-16] MEDS ORDERED: FUROSEMIDE 20 MG/ 2ML VIAL IV ONE ×3 (00:49→23:50)
--- NOTE | 2019-06-16 00:50 | P.PN ---
Subjective Date of Service: 06/16/19 Primary Care Provider: [facility] provider Chief Complaint: Shortness of breath Subjective: Other (Patient appears stable.) Physical Examination - Vital Signs Blood Pressure: 107/62 Pulse: 90 Respirations: 18 Pulse Ox (%): 99 - Physical Exam General: Alert, In no apparent distress, Oriented x3, Cooperative HEENT: Atraumatic Neck: Supple Respiratory: Expiratory wheezes (Occasional wheezing) Cardiovascular: Irregular heart rate/rhythm (AFib rate controlled) Gastrointestinal: Hypoactive, No masses, No rebound, No guarding, Distended Musculoskeletal: No tenderness, No warmth Neurological: Normal speech, Normal strength at 5/5 x4 extr, Normal tone, Normal affect - Studies Laboratory Data (last 24 hrs) 06/15/19 18:12: WBC 12.8 H, Hgb 6.7 L*, Hct 20.6 L*, Plt Count 206 06/15/19 17:17: PT 40.8 H, INR 3.63, APTT 37.4 H 06/15/19 17:17: Sodium 142, Potassium 3.5, BUN 43 H, Creatinine 2.47 H, Glucose 94, Total Bilirubin 0.3, AST 6 L, ALT 15, Alkaline Phosphatase 83, Lipase 66 L Microbiology Data (last 24 hrs): 06/15/19 20:40 Nasopharnyx Influenza Type A Antigen Screen - Final 06/15/19 20:40 Nasopharnyx Influenza Type B Antigen Screen - Final Medications List Reviewed: Yes Assessment & Plan Discharge Plan: Custodial Plan to discharge in: Greater than 2 days Physician Review Additional Text: Impression: Abdominal distention with shortness of breath secondary to ileus with stercoral colitis and recurrent C diff colitis Acute on chronic anemia possible upper GI bleed complicated with chronic anti coagulation therapy for AFib Acute on chronic renal failure stage 4 Right renal mass suspect renal cell carcinoma Chronic atrial fibrillation on chronic anti coagulation therapy COPD CHF, diastolic dysfunction BPH Plan: Abdominal distention with shortness of breath secondary to ileus with stercoral colitis and recurrent C diff colitis: Patient admitted to ICU for further evaluation and treatment. Patient on IV vancomycin to cover for colitis. Patient remains NPO. GI is aware of patient. Surgery also consulted to further evaluate likely ileus. Await further recommendation. Continue to monitor closely. Blood cultures obtained. Pro calcitonin negative. Continue to monitor electrolytes closely. Chronic anti coagulation therapy-Eliquis has been discontinued due to acute anemia. INR initially elevated. Cardiology consulted for further recommendation on this. Nephrology consulted due to acute on chronic renal failure. Advanced directives addressed in detail with the patient with present last night. Patient wishes to be do not resuscitate. Will have manager social responsibility fill out forms to fully address today. Daytime hospitalist team will continue his care. Acute on chronic anemia possible upper GI bleed complicated with chronic anti coagulation therapy for AFib: Patient will be transfused 2 units of packed red blood cells. Will monitor hemoglobin closely. Will maintain hemoglobin above 8.0. GI consulted. Protonix IV drip initiated. Patient may require EGD further evaluation. Eliquis has been discontinued due to anemia and elevated INR. GI and cardiology consulted. Acute on chronic renal failure stage 4: Will monitor this closely. Patient to get transfusion of blood. Patient to get IV Lasix to prevent CHF exacerbation. Nephrology consulted to further evaluate. Await recommendation.. Right renal mass suspect renal cell carcinoma: Patient with known renal mass likely renal cell carcinoma. Patient has received therapy in the past. Patient likely not a candidate for continuation of therapy at this time. Chronic atrial fibrillation on chronic anti coagulation therapy: Eliquis currently on hold due to acute anemia. Will try to continue with sotalol. Will provide IV metoprolol if required. Cardiology consulted to further assess and make recommendations. COPD: Continue COPD medication. Maintain sats above 94%. CHF, diastolic dysfunction: No exacerbation noted at this time. Patient will get IV Lasix after each unit of blood. Will monitor closely. BPH: Patient may need to restart medication once stable. Time Spent Managing Pts Care (In Minutes): 55
[2019-06-16 05:26] LABS: Absolute Lymphocytes (CBC) 0.8 K/uL (0.7-4.9); Hematocrit 24.5 % (39.6-49.0); Lymphocytes % 4.3 % (15.3-44.8); MPV 8.9 fL (7.6-11.3)
[2019-06-16 05:48] LABS: Albumin 2.9 g/dL (3.4-5.0); Bilirubin Total 0.5 mg/dL (0.2-1.0); Magnesium 1.9 mg/dL (1.8-2.4); Potassium 3.5 mmol/L (3.5-5.1); Protein, Total 6.1 g/dL (6.4-8.2)
[2019-06-16 05:57] VITALS: BMI 39.7
[2019-06-16] MEDS: SOTALOL HCL 80 MG TAB PO SCH ×2 (06:00→17:49)
[2019-06-16] MEDS: IPRATROPIUM BROM 0.5MG/2.5ML NEB PRN ×2 (07:47→14:16)
[2019-06-16] MEDS: LEVALBUTEROL 0.63 MG/3 ML NEB NEB PRN ×2 (07:47→14:16)
[2019-06-16] MEDS: ARFORMOTEROL TARTRATE 15 MCG/2 ML VIAL.NEB NEB SCH ×2 (07:47→21:05)
[2019-06-16] MEDS ORDERED: FAMOTIDINE 20 MG/2 ML VIAL IV SCH (09:00)
[2019-06-16 09:33] LABS: Hematocrit 25.1 % (39.6-49.0)
[2019-06-16] MEDS: PANTOPRAZOLE INJ 80 MG in NA CHLORIDE 0.9% 250 ML IV SCH ×2 (09:43→23:31)
[2019-06-16 09:46] LABS: Uric Acid 8.3 mg/dL (3.5-7.2)
[2019-06-16] MEDS: CEFTRIAXONE/SWI 1gm 1 GM/10 ML SYR IV SCH (11:26)
--- NOTE | 2019-06-16 11:35 | EKG ---
Test Date: 2019-06-15 Test Time: 17:31:11 [employer]ode Crew Supervisor: SAM MEASUREMENT RESULTS: Intervals: Rate: 85 IN: QRSD: 102 QT: 412 QTc: 490 [place]: P: IN: QRS: -58 T: 85 INTERPRETIVE STATEMENTS: Atrial fibrillation with a competing junctional pacemaker Left axis deviation Prolonged QT Abnormal ECG Compared to ECG 01/30/2019 15:28:44 Sinus rhythm no longer present Sinus arrhythmia no longer present ST (T wave) deviation no longer present Electronically Signed On 06-16-19 11:33:41 CDT by Jean Ballesteros
--- NOTE | 2019-06-16 11:41 | ECHO ---
HEIGHT: 5 ft 8 in WEIGHT: 261 lb 6 oz DATE OF STUDY: 06/16/[address]: Jean Ballesteros MD 2-DIMENSIONAL: YES M.MODE: YES DOPPLER: YES COLOR FLOW: YES TDS: YES PORTABLE: NO DEFINITY: NO BUBBLE STUDY: NO DIAGNOSIS: ATRIAL FIBRILLATION CARDIAC HISTORY: CATHERIZATION: NO SURGERY: NO PROSTHETIC VALVE: NO PACEMAKER: NO MEASUREMENTS (cm) DIASTOLIC (NORMALS) SYSTOLIC (NORMALS) IVSd 1.3 (0.6-1.2) LA Diam 4.1 (1.9-4.0) LVEF 70% LVIDd 5.3 (3.5-5.7) LVIDs 3.2 (2.0-3.5) %FS 40% LVPWd 1.2 (0.6-1.2) Ao Diam 3.1 (2.0-3.7) 2 DIMENSIONAL ASSESSMENT: RIGHT ATRIUM: NORMAL LEFT ATRIUM: DILATED RIGHT VENTRICLE: NORMAL LEFT VENTRICLE: NORMAL TRICUSPID VALVE: NORMAL MITRAL VALVE: NORMAL PULMONIC VALVE: NORMAL AORTIC VALVE: NORMAL PERICARDIAL EFFUSION: NONE AORTIC ROOT: NORMAL LEFT VENTRICULAR WALL MOTION: NORMAL DOPPLER/COLOR FLOW: MILD TRICUSPID REGURGITATION. COMMENTS: POSSIBLE INFERIOR VENA CAVA THROMBUS. MILD TRICUSPID REGURGITATION. NORMAL RIGHT VENTRICULAR SYSTOLIC PRESSURE. NORMAL LEFT VENTRICULAR SIZE AND FUNCTION. LEFT ATRIAL ENLARGEMENT. TECHNOLOGIST: Natacha NAM
--- NOTE | 2019-06-16 13:38 | RAD REPORT ---
EXAM DESCRIPTION: US - Extrem Venous W Compress Damian - 06/16/2019 1:26 pm CLINICAL HISTORY: Lower ext swelling, IVC thrombus Bilateral leg edema and swelling. COMPARISON: Extrem Venous W Compress Damian dated 01/14/2018; Abdomen Pelvis Wo Contrast dated 06/15/20 19; Abdomen Pelvis W/Wo Contrast dated 01/30/2019 TECHNIQUE: Real-time sonographic interrogation of the left and right lower extremity deep venous sys tems was performed. FINDINGS: Normal compressibility, flow augmentation, phasic flow and spontaneous flow is identified in both the left and right lower extremity deep venous systems. IMPRESSION: No sonographic evidence of left or right lower extremity deep venous thrombosis.
--- NOTE | 2019-06-16 13:39 | RAD REPORT ---
EXAM DESCRIPTION: US - Renal Ultrasound-Complete - 06/16/2019 1:04 pm CLINICAL HISTORY: ARF Renal mass COMPARISON: Renal Ultrasound-Complete dated 05/03/2017 FINDINGS: 5.0 x 4.3 x 4.3 cm solid right renal mass is present. This is most compatible with renal c ell carcinoma. The right kidney measures 11.0 x 5.3 cm. No hydronephrosis. Echogenicity of the right kidney is martin l. The left kidney measures 9.0 x 4.9 cm. No hydronephrosis. Echogenicity of the left kidney is normal. The urinary bladder is incompletely distended without gross abnormality seen. IMPRESSION: 5 cm solid right renal mass compatible with renal cell carcinoma. No hydronephrosis. Bilateral renal echogenicity is within normal limits.
[2019-06-16] MEDS: VANCOMYCIN ORAL SOLN 250 MG/5 ML OSYR PO SCH ×2 (14:08→17:49)
[2019-06-16] MEDS ORDERED: NA CHLORIDE 0.9% 500 ML IV SCH (15:00)
[2019-06-16] MEDS ORDERED: LACTULOSE 20 GM/30 ML UCUP PO PRN (15:00)
[2019-06-16] MEDS ORDERED: HOME MED 1 EA UNK (Budesonide/Formoterol Fumarate [Symbicort 80-4.5 Mcg Inhaler] 2 PUFF) IH SCH (15:00)
--- NOTE | 2019-06-16 15:09 | P.CNS ---
Date of Consult: 06/16/19 Reason for Consult: KATHLEEN Primary Care Provider: long-term provider Chief Complaint: Shortness of breath History of Present Illness: A 73 Y/o man , minimally communicated with PMHx of renal cell carcinoma on immunotherapy , COPD , Afib, Hx of C.diff and chronic anemia Pt was admitted for SOB improved on Steroids, found to have hb <6.0 , received 2 PRBC also pt noticed to have abdominal distention as per , no vomiting or diarrhea pt is minimally communicative and further Hx could be obtained Allergies hydromorphone [From Dilaudid] Allergy (Verified 06/15/19 23:00) Nausea/Vomiting metformin Allergy (Verified 06/15/19 23:00) Rash Home Medications: Acetaminophen [Tylenol] 650 mg PO Q6HP PRN 06/16/19 Apixaban [Eliquis] 5 mg PO BID 06/16/19 Atorvastatin Calcium [Lipitor*] 1 tab PO BEDTIME 06/16/19 Budesonide/Formoterol Fumarate [Symbicort 80-4.5 Mcg Inhaler] 2 puff IH Q6H Carvedilol 12.5 tab PO BID 06/16/19 Gabapentin 300 mg PO TID 06/16/19 Glimepiride [Amaryl] 2 mg PO DAILY 06/16/19 Glycopyrrol/Nebulizer/Accessor [Lonhala Magnair 25 Mcg Starter] 1 ml IH BID Guaifenesin [Radha-Tussin] 5 ml PO Q6HP PRN 06/16/19 Hydrocodone 7.5/APAP 325 [Grady 7.5/325 mg*] 1 tab PO Q6HP PRN 06/16/19 Lactulose [Cephulac] 20 gm PO BIDP PRN 06/16/19 Lisinopril [Prinivil*] 1 tab PO BID 06/16/19 Melatonin/Pyridoxine [Melatonin 5 mg Tablet] 1 each PO BEDTIME 06/16/19 Niacin [Niacin ER] 1,000 mg PO BEDTIME 06/16/19 Omeprazole 20 mg PO DAILY 06/16/19 Ondansetron [Zofran] 8 mg PO Q8HP PRN 06/16/19 Ranolazine [Ranolazine ER] 1,000 mg PO BID 06/16/19 Sertraline HCl 50 mg PO DAILY 06/16/19 Sotalol HCl [Betapace*] 80 mg PO BID 06/16/19 Tamsulosin HCl 1 cap PO DAILY 06/16/19 - Past Medical/Surgical History Diabetic: Yes -: Hypertension -: CHF, diastolic dysfunction -: COPD, former smoker -: Renal cell carcinoma -: Atrial fibrillation on chronic anti coagulation -: Atherosclerotic Heart disease -: Diabetes mellitus type 2 -: History of falls -: History of recurring UTI -: Cataracts -: GERD -: Benign prostatic hyperplasia -: Cholecystectomy -: Hernia repair -: Cardiac stents x2 -: Colon polyp removal -: Appendectomy Psychosocial/ Personal History: The patient is 48 years, has 2 children and 1 adopted child. 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 - Family History Mother Medical History: Cancer Notes: breast cancer Sister Medical History: Cancer Notes: ovarian cancer Brother Medical History: Heart disease Notes: heart attack - Social History Smoking Status: Current every day smoker Alcohol use: No CD- Drugs: No Caffeine use: Yes Place of Residence: [facility] Physical Examination Temp Pulse Resp BP Pulse Ox 97.8 F 87 18 145/80 H 97 06/16/19 12:00 06/16/19 12:00 06/16/19 12:00 06/16/19 12:00 06/16/19 12:00 General: Alert, In no apparent distress HEENT: Atraumatic Neck: Supple, Without JVD or thyroid abnormality Respiratory: Diminished Cardiovascular: No edema, Normal pulses, Regular rate/rhythm, No gallops, No rubs, No murmurs Gastrointestinal: Distended Laboratory Data (last 24 hrs) 06/15/19 18:12: WBC 12.8 H, Hgb 6.7 L*, Hct 20.6 L*, Plt Count 206 06/15/19 17:17: PT 40.8 H, INR 3.63, APTT 37.4 H 06/15/19 17:17: Sodium 142, Potassium 3.5, BUN 43 H, Creatinine 2.47 H, Glucose 94, Total Bilirubin 0.3, AST 6 L, ALT 15, Alkaline Phosphatase 83, Lipase 66 L - Problems (1) Diabetes mellitus Onset Date: 06/04/17 Current Visit: No Status: Chronic Qualifiers: Diabetes mellitus type: type 2 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 insulin use: without group home use Diabetes mellitus complication status: with unspecified complications (2) Hypertension Onset Date: 06/04/17 Current Visit: No Status: Chronic Qualifiers: Hypertension type: essential hypertension Qualified Code(s): I10 - Essential (primary) hypertension (3) Acute renal failure Onset Date: 07/16/16 Current Visit: No Status: Resolved Qualifiers: Acute renal failure type: unspecified Qualified Code(s): N17.9 - Acute kidney failure, unspecified Conclusions/Impression: KATHLEEN Cr baseline ~1.0 reason unclear , could be due to ATN from ischemia , +/- immunotherapy less likely abd compartment as his CR slightly improved renal dose meds will give gentle hydration of total 500ml as pt is NPO renal dose meds will not send for further W/U as pt is a poor candidate for treatment Abdominal distension due to Coliitis and fecal retention HTN controlled RCC as per pt expected survival ~1yr Cont supportive care Hx of CHF hold lasix for now CT scan with mild effusion IVC thrombosis AC on hold due to anemia family to consdier SVC filter poor prognosis
--- NOTE | 2019-06-16 15:56 | PN ---
Date of Progress Note: 06/16/2019 Subjective: Patient seen and examined. Chart reviewed and case discussed with RN and Dr. Barbosa. The patient has not had any further melena, being moved out of the ICU, did receive some blood, 2 un its overnight. Code Status: Do not attempt resuscitation. Medications: List reviewed. Physical Examination: Vital Signs: Temperature 96.7, heart rate 82, blood pressure 146/78, respirations 18, O2 100% on 2 L via nasal cannula. General: Awake, alert, oriented x3, in some mild distress, obese male, ill-appearing. CV: S1, S2. Regular rate and rhythm. Peripheral pulses weak. Respiratory: Diminished breath sounds at the bases otherwise moving air well. No wheezing or stridor . Gastrointestinal: Abdomen is soft, nontender, nondistended. Positive bowel sounds. Extremities: No clubbing, cyanosis, or edema. Neuro: Cranial nerves 2 through 12 intact grossly. No focal neurological deficit. Speech is normal . Skin: No rashes. Normal skin turgor. Laboratory Data: WBC 17.9, H and H 7.9 and 24.5, platelets 182, neutrophils 95%. Sodium 143, potass ium 3.5, chloride 114, CO2 of 20, BUN 44, creatinine 2.12, glucose 191, calcium 8. CK 88. Albumin 2 .9. PTH is 97.7. Blood cultures pending. C. diff assay is also pending. Influenza screen is negat lilia. Echocardiogram, EF is 70%, possible inferior vena cava thrombus, mild tricuspid regurg, normal right ventricular systolic pressure. Left atrial enlargement. Assessment And Plan: A 73-year-old male with: 1.Abdominal distention with shortness of breath secondary to ileus with stercoral colitis and recurr ent C diff. We will continue with oral vancomycin for possible C diff. We will await C diff assay. We will start on Flagyl and Rocephin for colitis. 2.Acute on chronic anemia secondary to upper GI bleed in the setting of chronic anticoagulation. El iquis has been held. Has received 2 units of PRBCs. We will monitor H and H closely. 3.Acute on chronic renal failure, stage IV. We will continue to monitor creatinine, currently somew hat improved today. Avoid NSAIDs. 4.Right renal mass with suspected renal cell carcinoma. Has received therapy in the past. Not a ca ndidate for therapy at this time. 5.Inferior vena cava thrombus. We will discuss further with Cardiology. 6.Chronic atrial fibrillation, on Eliquis, currently on hold. We will continue with sotalol. Rate controlled. 7.Chronic obstructive pulmonary disease. Currently on oxygen with chronic respiratory failure. We will continue nebulizer treatments. 8.Diastolic congestive heart failure, diastolic dysfunction. EF is 70%. Echocardiogram shows possi ble inferior vena cava thrombus. 9.BPH, stable. SA/MODL Voice ID: [id number] Report ID: [id number]
[2019-06-16] MEDS ORDERED: ALPRAZOLAM 0.25 MG TABLET PO ONE (16:04)
[2019-06-16 16:22] LABS: Hematocrit 25.2 % (39.6-49.0)
[2019-06-16] MEDS: METRONIDAZOLE 500mg IVPB 500 MG/100 ML BAG IV SCH (17:49)
[2019-06-16] MEDS: GABAPENTIN 300 MG CAP PO SCH (20:21)
[2019-06-16] MEDS: ATORVASTATIN 10 MG TAB PO SCH (20:21)
[2019-06-16] MEDS ORDERED: NA CHLORIDE 0.9% 250 ML ONE (20:21)
[2019-06-17] MEDS ORDERED: NA CHLORIDE 0.9% 250 ML ONE (00:24)
[2019-06-17] MEDS: METRONIDAZOLE 500mg IVPB 500 MG/100 ML BAG IV SCH ×3 (00:26→17:07)
[2019-06-17] MEDS: VANCOMYCIN ORAL SOLN 250 MG/5 ML OSYR PO SCH ×4 (00:26→17:08)
--- NOTE | 2019-06-17 01:33 | CON ---
Date of Consultation: 06/16/2019 The patient admitted by Dr. Gonzalez on 06/15/2019. The patient was seen on 06/16/2019. Reason For Consultation: I saw the patient because of chronic atrial fibrillation and severe anemia. History Of Present Illness: Mr. Suarez is a 73-year-old white male. He is a do not resuscitate. He has a history of congestive heart failure, chronic renal insufficiency, hypertension, diabetes, de pression, COPD, gastroesophageal reflux disease, chronic atrial fibrillation, as well as coronary art allison disease. He came in with fever. KUB showed an ileus. He was short of breath. He was found to have a hemoglobin of 6.7. He is status post transfusions. He takes Eliquis at home. His INR was 3. 63. His creatinine was 2.47. His glucose was 261. His chest x-ray was negative. CT of the abdomen showed colitis and what looks like a right renal cancer. Last echocardiogram in January of 2017, was jesse finch. The patient denied any palpitations. He denied any syncope. Past Medical History: As stated above. Allergies: METFORMIN AND MORPHINE. Review of Systems: Negative. Social History: Negative. Family History: Noncontributory. Physical Examination: General: Mr. Suarez was in no acute distress. He was in atrial fibrillation at a rate of about 80 . He was afebrile. HEENT: Negative. Neck: Supple without any bruit, lymphadenopathy, JVD, or thyromegaly. Chest: Revealed diffuse wheezing on expiration. Cardiac: Revealed atrial fibrillation with aortic sclerosis, murmur. No gallops or rubs. Abdomen: Obese, but benign. Extremities: Revealed no clubbing, cyanosis. He had 1+ edema to the knees. Skin: Dry and intact. Neurologic: He was nonfocal. Pulses were absent in the distal extremities. Diagnostic Data: As stated earlier. Impression And Plan: 1.Chronic atrial fibrillation. The patient is on Eliquis that needs to be held for now. His hemogl obin is 6.7. His INR is 3.63. He is status post multiple blood transfusions. I would continue to m onitor his hemoglobin. Monitor his INR. Hold Eliquis for now. The patient is do not resuscitate, b ut I still believe an echocardiogram is reasonable considering his history. 2.Abnormal CT scan with colitis and possible right renal cancer. I think Nephrology consultation sh ould be obtained. 3.Severe renal insufficiency. Creatinine is 2.47. MAURISIO inhibitor should be held. We will see what Nephrology recommends. 4.Fever with ileus. 5.Diabetes, poorly controlled. 6.Dyslipidemia, on Lipitor. 7.Gastroesophageal reflux. 8.Coronary artery disease, stable on Ranexa. 9.Atrial fibrillation, stable on sotalol with rate control. 10.Neuropathy. 11.Hypertension. 12.Chronic obstructive pulmonary disease. 13.Depression. We will see what the echocardiogram shows. We will see what his hemoglobin says. We will see what R kyleigh consultation says. I will continue to follow him. Continue to hold Eliquis for now. JAKE/PERLA Voice ID: [id number] Report ID: [id number]
[2019-06-17] MEDS ORDERED: FUROSEMIDE 20 MG/ 2ML VIAL IV ONE (04:00)
[2019-06-17] MEDS: PANTOPRAZOLE INJ 80 MG in NA CHLORIDE 0.9% 250 ML IV SCH ×2 (05:28→18:51)
[2019-06-17] MEDS: SOTALOL HCL 80 MG TAB PO SCH ×2 (05:28→17:08)
[2019-06-17 05:55] LABS: Absolute Lymphocytes (CBC) 0.9 K/uL (0.7-4.9); Basophils % 0.3 % (0-1.3); Hematocrit 26.5 % (39.6-49.0); Lymphocytes % 5.2 % (15.3-44.8); MPV 8.8 fL (7.6-11.3); RBC Red Blood Cell Count 3.56 M/uL (4.33-5.43)
[2019-06-17 06:24] LABS: Albumin 2.7 g/dL (3.4-5.0); Bilirubin Total 0.4 mg/dL (0.2-1.0); Protein, Total 5.8 g/dL (6.4-8.2)
[2019-06-17 06:26] LABS: Potassium 2.9 mmol/L (3.5-5.1)
[2019-06-17] MEDS: KCL 20 MEQ/100 mL IVPB 20 MEQ/100 ML BAG IV SCH ×3 (07:03→11:46)
[2019-06-17] MEDS: ARFORMOTEROL TARTRATE 15 MCG/2 ML VIAL.NEB NEB SCH ×2 (09:05→20:35)
[2019-06-17] MEDS: IPRATROPIUM BROM 0.5MG/2.5ML NEB PRN ×2 (09:05→20:35)
[2019-06-17] MEDS: LEVALBUTEROL 0.63 MG/3 ML NEB NEB PRN (09:05)
[2019-06-17] MEDS: SERTRALINE HCL 50 MG TAB PO SCH (09:42)
[2019-06-17] MEDS: TAMSULOSIN 0.4 MG SR CAP PO SCH (09:42)
[2019-06-17] MEDS: GABAPENTIN 300 MG CAP PO SCH ×3 (09:42→20:53)
[2019-06-17] MEDS: CEFTRIAXONE/SWI 1gm 1 GM/10 ML SYR IV SCH (09:43)
[2019-06-17 10:55] LABS: Platelet Estimate ADEQ; Urine White Blood Cell Casts OK
[2019-06-17 10:56] LABS: Anisocytosis 2+; Blood Morphology Comment NOTED (NOT SEEN); Polychromasia 1+
--- NOTE | 2019-06-17 13:30 | RAD REPORT ---
EXAM DESCRIPTION: [place] Single View06/17/2019 12:56 pm CLINICAL HISTORY: Shortness of breath COMPARISON: June 15, 2018 FINDINGS: Mild right lung opacities Left lung appears clear of acute infiltrate. The heart is normal size IMPRESSION: Mild right lung opacities may indicate a mild pneumonia
--- NOTE | 2019-06-17 15:18 | PN ---
Date of Progress Note: 06/17/2019 Subjective: Patient seen and examined. Chart reviewed and case discussed with RN and Dr. Lesli Barbosa. No family at the bedside. Spoke with on the telephone. Medications: List reviewed. Physical Examination: Vital Signs: Temperature 97.1, heart rate 81, blood pressure 135/73, respirations 20, O2 100% on 2 L via nasal cannula. General: Awake, alert, oriented x3. Mild distress. Elderly male, obese. CV: S1, S2, irregularly irregular. Peripheral pulses present. Respiratory: Moving air well bilaterally. No wheezing or stridor. Gastrointestinal: Abdomen is soft, nontender, nondistended. Positive bowel sounds. No guarding or rigidity. Extremities: No clubbing or cyanosis. Trace pedal edema. Neurologic: Nonfocal. SKIN: No rashes. Normal skin turgor. Laboratory Data: Sodium 145, potassium 2.9, chloride 116, CO2 of 21, BUN 42, creatinine 1.66, glucos e 147, calcium 7.5, magnesium 2, albumin 2.7. WBC 16.4, H and H 8.8 and 26.5, platelets 188, neutrop hils 89%. Blood cultures, no growth to date. Urine culture growing mixed nathanael. C diff assay, paulie ent had previous test on 06/15/2019, which was positive. DVT study of bilateral lower extremities jesse finch. Assessment And Plan: A 73-year-old male with; 1.Abdominal pain, improving. 2.Ileus, improving. Patient tolerating diet. 3.Stercoral colitis. We will continue with IV antibiotics. 4.Clostridium difficile colitis. Patient is positive on 06/15/2019. Continue oral vancomycin. Hardik reciate GI input. 5.Acute on chronic anemia secondary to upper gastrointestinal bleed in the setting of chronic antico agulation. Patient has received 4 units of PRBCs total. We will continue to monitor H and H. 6.Acute on chronic renal failure, stage 4. Creatinine somewhat improved today. Continue with monit oring creatinine. Avoid NSAIDs. Appreciate Nephrology input. 7.Renal cell carcinoma. Patient was on immunotherapy, was given approximately 1-2 years survival ra te. Did not respond to immune therapy. Not a candidate for further therapy at this time. 8.Inferior vena cava thrombus. Patient unfortunately is not a candidate for anticoagulation. Possi bility of IVC filter with transfer to [place]. However, patient does not wish to be transferred to [facility] includes the [facility] for invasive measurements. Patient understands that this thrombus may get worse, dislodge cau sing heart attack, cardiac arrest, or even stroke. He does not wish to pursue further treatment. 9.Chronic atrial fibrillation, Eliquis on hold. We will continue sotalol and beta-blockers. Rate c ontrolled. 10.Chronic obstructive pulmonary disease, oxygen requiring. Chronic bronchitis. Continue albuterol treatments. 11.Chronic respiratory failure. We will continue with supplemental oxygen. 12.Diastolic congestive heart failure, EF 70%, stable. We will monitor I's and O's. 13.Benign prostatic hyperplasia, stable. WBC count is improving. We will continue with antibiotics . Follow up on cultures. Overall, very poor prognosis. We will discuss again with family regarding possible palliative care, hospice care. /PERLA Voice ID: [id number] Report ID: [id number]
[2019-06-17 17:47] LABS: Hematocrit 29.5 % (39.6-49.0)
[2019-06-17] MEDS ORDERED: POTASSIUM CL SA 10 MEQ TAB PO ONE (20:00)
--- NOTE | 2019-06-17 20:51 | PN ---
Date of Progress Note: 06/17/2019 Reason For Service: Abdominal wall distention, constipation, kidney disease. Subjective: Patient feels better. This morning, he had a bowel movement. No nausea, no vomiting. Objective: Chest: Clear. Abdomen: Softer. No guarding or rebound. No peritoneal signs. Extremities: Good capillary refill. Imaging Data: CAT scan was discussed with the patient. Assessment: Continue medical workup. I know they are working him in the possible diagnosis of a DVT . From the surgical standpoint, his abdomen is less distended. Cultures of his stool are still pend ing. If he improves clinically, then he may save himself from a laparotomy and he is trying to do th at. We will follow the patient with you and give DICTATION ENDS HERE BEV/PERLA Voice ID: [id number] Report ID: [id number]
[2019-06-17] MEDS: ATORVASTATIN 10 MG TAB PO SCH (20:53)
[2019-06-17] MEDS: MELATONIN 5 MG TABLET PO SCH (20:53)
[2019-06-18] MEDS: VANCOMYCIN ORAL SOLN 250 MG/5 ML OSYR PO SCH ×4 (00:43→18:13)
[2019-06-18] MEDS: METRONIDAZOLE 500mg IVPB 500 MG/100 ML BAG IV SCH ×3 (00:43→18:10)
[2019-06-18] MEDS: PANTOPRAZOLE INJ 80 MG in NA CHLORIDE 0.9% 250 ML IV SCH ×3 (05:59→21:24)
[2019-06-18] MEDS: SOTALOL HCL 80 MG TAB PO SCH ×2 (06:00→18:11)
[2019-06-18 07:10] LABS: Absolute Lymphocytes (CBC) 1.4 K/uL (0.7-4.9); Basophils % 0.4 % (0-1.3); Hematocrit 29.4 % (39.6-49.0); Lymphocytes % 11.4 % (15.3-44.8); MPV 9.4 fL (7.6-11.3)
[2019-06-18 07:28] LABS: Albumin 2.8 g/dL (3.4-5.0); Bilirubin Total 0.4 mg/dL (0.2-1.0); Potassium 3.4 mmol/L (3.5-5.1); Protein, Total 5.9 g/dL (6.4-8.2)
[2019-06-18] MEDS: ARFORMOTEROL TARTRATE 15 MCG/2 ML VIAL.NEB NEB SCH ×2 (08:20→20:20)
[2019-06-18] MEDS: IPRATROPIUM BROM 0.5MG/2.5ML NEB PRN ×3 (08:20→20:20)
[2019-06-18] MEDS: LEVALBUTEROL 0.63 MG/3 ML NEB NEB PRN ×3 (08:20→20:20)
[2019-06-18] MEDS ORDERED: POTASSIUM CL SA 10 MEQ TAB PO ONE (09:00)
[2019-06-18] MEDS: CEFTRIAXONE/SWI 1gm 1 GM/10 ML SYR IV SCH (09:51)
[2019-06-18] MEDS: SERTRALINE HCL 50 MG TAB PO SCH (09:57)
[2019-06-18] MEDS: TAMSULOSIN 0.4 MG SR CAP PO SCH (09:57)
[2019-06-18] MEDS: GABAPENTIN 300 MG CAP PO SCH ×3 (09:57→21:21)
--- NOTE | 2019-06-18 10:28 | PN ---
Date of Progress Note: 06/17/2019 History Of Present Illness: Mr. Suarez has been seen on 06/16/2019 as a new consultation. He came in with severe anemia, requiring blood transfusion, was taking Eliquis. Echocardiogram that was don e showed a normal ejection fraction, but he was noted to have a thrombus in the inferior vena cava. History Of Present Illness: Mr. Suarez is a do not resuscitate. The case was discussed with Dr. Kaya wooten. Dr. Collins discussed the case with the family. Since his hemoglobin is so low, we had elected to keep him off Eliquis at least for now. Discussion for the need of an IVC filter was done with the family, but they do not want to have any invasive workup. I would still transfuse once his hemoglob in is stable. Resume his Eliquis. I will sign off his case for now. JAKE/PERLA Voice ID: [id number] Report ID: [id number]
[2019-06-18] MEDS: FUROSEMIDE 40 MG/4 ML VIAL IV SCH ×2 (13:18→21:20)
[2019-06-18] MEDS ORDERED: POTASSIUM 25 MEQ EFFERV TAB PO ONE (17:00)
--- NOTE | 2019-06-18 17:55 | PN ---
Date of Progress Note: 06/18/2019 Subjective: Patient seen and examined. Chart reviewed and case discussed with RN and Dr. Ballesteros. Patient overall feels well. No further bleeding episodes. Medications: List reviewed. Physical Examination: Vital Signs: Temperature 97, heart rate 74, blood pressure 139/81, respirations 22, O2 100% on 2 L v ia nasal cannula. General: Awake, alert, oriented x3. Elderly male, obese, not in any acute distress. CV: S1, S2, irregularly irregular. Peripheral pulses present. Respiratory: Diminished breath sounds. Diffuse wheezing heard. Gastrointestinal: Abdomen is soft, nontender, nondistended. Positive bowel sounds. Extremities: No clubbing or cyanosis. Trace pedal edema. Neurologic: Nonfocal. Laboratory Data: Sodium 149, potassium 3.4, chloride 118, CO2 of 23, BUN 42, creatinine 1.49, glucos e 105, calcium 7.9, magnesium 2, albumin 2.8. WBC 12.3, H and H 9.3 and 29.4, platelets 199, neutrop hils 79%. Assessment And Plan: A 73-year-old male with; 1.Abdominal pain, improving. 2.Ileus, improving. Patient tolerating diet. We will advance as tolerated. Appreciate Dr. Ann paul's input. 3.Stercoral colitis. Continue with IV antibiotics. White blood cell count is trending down. 4.Clostridium difficile colitis. Continue oral vancomycin. 5.Acute on chronic anemia secondary to upper gastrointestinal bleed in the setting of chronic antico agulation, status post 4 units of PRBCs. Hemoglobin is stable. 6.Acute on chronic kidney disease, stage 4. Creatinine improving. We will continue to monitor. Av oid NSAIDs. Nephrology on-board. 7.Renal cell carcinoma. Patient failed immunotherapy. Overall has poor prognosis. 8.Inferior vena cava thrombus. Not a good candidate for anticoagulation. Patient does not want to have IVC filter placed in [place]. We will discuss with Cardiology and GI for resuming Eliquis. Sarah kohler does not wish palliative care at this time. 9.Chronic atrial fibrillation. Eliquis is on hold. Continue sotalol, beta-blockers. Rate controll ed. 10.Acute chronic obstructive pulmonary disease exacerbation. O2 dependent. Chronic bronchitis. We will adjust nebulizer treatments. Patient has diffuse wheezing. 11.Chronic respiratory failure. Continue with oxygen via nasal cannula. 12.Diastolic congestive heart failure. Ejection fraction is 70%. X-ray likely shows some edema. W e will repeat chest x-ray in a.m. Start on IV Lasix. Monitor I's and O's. 13.Benign prostatic hyperplasia, stable. 14.Disposition. Overall poor prognosis. We will discuss with Cardiology and GI considering restart ing Eliquis for IVC thrombus and atrial fibrillation. Patient declined hospice care at this time. /PERLA Voice ID: [id number] Report ID: [id number]
--- NOTE | 2019-06-18 18:44 | RAD REPORT ---
EXAM DESCRIPTION: RAD - Chest Single View - 06/18/2019 6:15 pm CLINICAL HISTORY: Sepsis COMPARISON: June 17 TECHNIQUE: AP portable chest image was obtained 1801 hours . FINDINGS: The right midlung field opacification on the prior day study has nearly fully resolved. Bazzi zy lung base opacities also improved. Detail is limited on portable imaging due to body habitus. No p rogressive lung parenchymal process seen. There remains prominent vasculature and prominent perihilar lung markings. Heart size is normal. No measurable pleural effusion and no pneumothorax. No acute bony abnormality seen. No acute aortic findings suspected. IMPRESSION: Partial clearing of lung parenchymal infiltrate since the prior day study.
[2019-06-18] MEDS: MELATONIN 5 MG TABLET PO SCH (21:21)
[2019-06-18] MEDS: APIXABAN 5 MG TABLET PO SCH (21:21)
[2019-06-18] MEDS: ATORVASTATIN 10 MG TAB PO SCH (21:21)
[2019-06-19] MEDS: METRONIDAZOLE 500mg IVPB 500 MG/100 ML BAG IV SCH ×2 (02:16→09:12)
[2019-06-19] MEDS: VANCOMYCIN ORAL SOLN 250 MG/5 ML OSYR PO SCH ×3 (02:16→11:46)
--- NOTE | 2019-06-19 03:19 | PN ---
Date of Progress Note: 06/18/2019 Subjective: Patient was admitted with acute kidney injury. Patient had renal cell CA. Patient developed GI bleed. Physical Examination: Vital Signs: Blood pressure 131/71, pulse of 82, afebrile. Chest: Faint crackles on the left base. Heart: S1, S2 regular. Abdomen: Soft, nontender. Extremities: Trace edema. Laboratory Data: WBC 12.3, H and H 9.3/29.4, platelets 199. Sodium of 149, potassium is 3.4, bicarb 23, BUN 42, creatinine down to 1.4, calcium 7.9. PTH of 97. Medications: Current medications the patient is on include: 1. Ceftriaxone. 2. Flagyl. 3. Vancomycin oral. 4. Flomax. 5. Eliquis. 6. Atorvastatin. 7. Sotalol. 8. Zoloft. 9. Gabapentin. 10. Lasix. 11. Pantoprazole. Assessment And Plan: 1. Acute kidney injury secondary to renal cardio slightly on the wet side. I am going to continue current diuresis. We will continue to monitor. 2. Hypertension, controlled optimal . Continue to monitor. 3. Colitis. Continue current antibiotic. Patient with overall poor prognosis. We will follow up with the primary. GOOD/PERLA Voice ID: [id number] Report ID: [id number] MICHAEL
[2019-06-19] MEDS: SOTALOL HCL 80 MG TAB PO SCH (05:30)
[2019-06-19 06:15] LABS: ALT/SGPT 13 U/L (12-78); Albumin 2.7 g/dL (3.4-5.0); Alkaline Phosphatase 67 U/L (45-117); BUN Blood Urea Nitrogen 31 mg/dL (7-18); Bicarbonate 27 mmol/L (21-32); Bilirubin Total 0.4 mg/dL (0.2-1.0); Glucose Level 120 mg/dL (74-106); Magnesium 1.8 mg/dL (1.8-2.4); Potassium 3.2 mmol/L (3.5-5.1); Protein, Total 5.6 g/dL (6.4-8.2); Sodium Level 149 mmol/L (136-145)
[2019-06-19 06:19] LABS: AST/SGOT < 3 U/L (15-37)
[2019-06-19 06:22] LABS: Absolute Lymphocytes (CBC) 1.5 K/uL (0.7-4.9); Basophils % 0.6 % (0-1.3); Hematocrit 27.5 % (39.6-49.0); Lymphocytes % 14.5 % (15.3-44.8); MPV 9.1 fL (7.6-11.3); RBC Red Blood Cell Count 3.69 M/uL (4.33-5.43)
[2019-06-19] MEDS: PANTOPRAZOLE INJ 80 MG in NA CHLORIDE 0.9% 250 ML IV SCH (07:00)
[2019-06-19] MEDS: ARFORMOTEROL TARTRATE 15 MCG/2 ML VIAL.NEB NEB SCH (08:00)
--- NOTE | 2019-06-19 08:15 | RAD REPORT ---
EXAM DESCRIPTION: RAD - Chest Single View - 06/19/2019 6:58 am CLINICAL HISTORY: Pneumonia COMPARISON: June 18, June 17 TECHNIQUE: AP portable chest image was obtained 0633 hours . FINDINGS: Lung parenchymal findings are stable from the prior day study. PICC line remains in place. Retrocardiac left base assessment remains limited. Trachea is midline. Heart and vasculature are nor mal. No measurable pleural effusion and no pneumothorax. No acute bony abnormality seen. No acute aor tic findings suspected. IMPRESSION: Stable chest. No further clearing of the lung parenchymal process since prior day ugo puri
--- NOTE | 2019-06-19 08:40 | PN ---
Date of Progress Note: 06/17/2019 Subjective: Patient was admitted with worsening kidney function. Patient still feeling weak renal CA with metastasis. Physical Examination: Vital Signs: When I saw the patient, blood pressure 122/78, pulse 75. Chest: Clear to auscultation. Heart: S1, S2. Regular. Abdomen: Soft, nontender. Extremities: + 2 edema. Laboratory Data: Sodium 145, potassium 2.5, bicarb 21, BUN 42, creatinine 1.6, calcium 7.5. WBC 16.4, H and H 8.8 and 26.5, platelets 158. Current Medications: Include levalbuterol, atorvastatin, metoprolol, sotalol Assessment And Plan: 1. Acute kidney injury secondary to contrast-induced nephropathy, superimposed with poor peerfusion acute tubular necrosis, on the recovery phase. We will continue current hydration. 2. Hypertension, controlled, optimal. Continue current medication. 3. Hypokalemia, mostly secondary to diuresis We will continue to monitor. We will supplement. 4. Renal cancer with metastasis. We will follow up with Oncology. YENNI Voice ID: [id number] Report ID: [id number] MTDD
[2019-06-19 08:43] LABS: Anisocytosis 2+; Blood Morphology Comment NOTED (NOT SEEN); Platelet Estimate ADEQ; Poikilocytosis 1+
[2019-06-19] MEDS ORDERED: MAGNESIUM SULFATE 1 gm IVPB 1 GM/100 ML BAG IV ONE (09:00)
[2019-06-19] MEDS ORDERED: POTASSIUM CL SA 10 MEQ TAB PO ONE (09:00)
[2019-06-19] MEDS: CEFTRIAXONE/SWI 1gm 1 GM/10 ML SYR IV SCH (09:13)
[2019-06-19] MEDS: FUROSEMIDE 40 MG/4 ML VIAL IV SCH (09:14)
[2019-06-19] MEDS: TAMSULOSIN 0.4 MG SR CAP PO SCH (09:14)
[2019-06-19] MEDS: APIXABAN 5 MG TABLET PO SCH (09:14)
[2019-06-19] MEDS: SERTRALINE HCL 50 MG TAB PO SCH (09:14)
[2019-06-19] MEDS: GABAPENTIN 300 MG CAP PO SCH ×2 (09:14→13:39)
[2019-06-19 10:22] VITALS: O2SAT 96
[2019-06-19 12:26] VITALS: BP 142/79; TEMP 98
--- NOTE | 2019-06-19 14:02 | P.PN ---
Subjective Date of Service: 06/26/19 Primary Care Provider: skilled nursing provider Chief Complaint: Shortness of breath Subjective: Improving pt with renal cell carcinoma, admitted for SOB, found to have KATHLEEN, Abd distension, And IVC thormbus today no new complaints KATHLEEN resolved can be discharged from nephrology point of view Physical Examination - Vital Signs Temperature: 98 F Blood Pressure: 142/79 Pulse: 76 Respirations: 20 Pulse Ox (%): 98 - Physical Exam General: Alert, In no apparent distress HEENT: Atraumatic Neck: Supple, Without JVD or thyroid abnormality Respiratory: Clear to auscultation bilaterally, Normal air movement Cardiovascular: No edema, Regular rate/rhythm, Normal S1 S2, No gallops, No rubs Gastrointestinal: Soft and benign, Distended Musculoskeletal: No swelling - Studies Microbiology Data (last 24 hrs): 06/15/19 18:30 Catheterized Urine [place] Count - Final >100,000 CFU/ML. 06/15/19 18:30 Catheterized Urine - Final Medications List Reviewed: Yes Assessment And Plan - Current Problems (Diagnosis) (1) Diabetes mellitus Onset Date: 06/04/17 Status: Chronic Qualifiers: Diabetes mellitus type: type 2 Diabetes mellitus mcc insulin use: without exterminator helper termite use Diabetes mellitus complication status: with unspecified complications (2) Hypertension Onset Date: 06/04/17 Status: Chronic Qualifiers: Hypertension type: essential hypertension Qualified Code(s): I10 - Essential (primary) hypertension (3) Acute renal failure Onset Date: 07/16/16 Status: Resolved Qualifiers: Acute renal failure type: unspecified Qualified Code(s): N17.9 - Acute kidney failure, unspecified - Plan KATHLEEN Cr baseline ~1.0 resolved due to prerenal azotemia Abdominal distension due to fecal retention HTN controlled RCC as per pt expected survival ~1yr Cont supportive care Hx of CHF hold lasix for now IVC thrombosis AC on hold due to anemia Not candidate for filter poor prognosis
--- NOTE | 2019-06-20 03:56 | DS ---
Date of Discharge: 06/19/2019 Consultants: 1.Dr. Peoples, General Surgery. 2.Dr. Olsen and Dr. Caldera with Nephrology. 3.Dr. Barbosa with GI. 4.Dr. Ballesteros with Cardiology. Procedures: None. Admitting Diagnoses: 1.Abdominal pain. 2.Ileus. 3.Stercoral colitis. 4.Recurrent Clostridium difficile colitis. 5.Acute on chronic anemia secondary to upper gastrointestinal bleed. 6.Upper gastrointestinal bleed in the setting of chronic anticoagulation therapy for atrial fibrilla tion. 7.Atrial fibrillation, chronic. 8.Right renal mass, renal cell carcinoma, status post failed immunotherapy. 9.Acute on chronic kidney failure, stage 4. 10.Chronic obstructive pulmonary disease, chronic bronchitis. 11.Chronic diastolic heart failure. 12.Benign prostatic hyperplasia. Discharge Diagnoses: 1.Abdominal pain, resolved. 2.Ileus, improved, tolerating diet. 3.Stercoral colitis, resolving. 4.Clostridium difficile colitis, on oral vancomycin. 5.Acute on chronic anemia secondary to upper gastrointestinal bleed in the setting of chronic antico agulation. 6.Upper gastrointestinal bleed. Hemoglobin stable, status post 4 units PRBCs. 7.Acute on chronic kidney disease, stage 4, creatinine improved. 8.Renal cell carcinoma, failed immunotherapy. 9.Inferior vena cava thrombus, now on Eliquis. 10.Chronic atrial fibrillation, on chronic anticoagulation. 11.Acute chronic obstructive pulmonary disease exacerbation, improved. 12.Chronic respiratory failure, on oxygen via nasal cannula. 13.Acute on chronic diastolic heart failure. 14.Benign prostatic hyperplasia, stable. Hospital Course: Patient is an elderly gentleman with multiple medical problems including renal cell carcinoma with failed outpatient immunotherapy with a prognosis of survival rate of 1 to 2 years giv en by his oncologist; chronic atrial fibrillation, on Eliquis; recent diagnosis of C diff, COPD, paige estive heart failure, comes in from the nursing facility with shortness of breath. Patient was found to have some abdominal discomfort, had an elevated white count. CT scan showed stercoral colitis fr om fecal retention. Patient did not appear to be septic. His hemoglobin was 8.3. Patient did have some stool and was thought to have upper GI bleed. GI was consulted. Dr. Barbosa did not recommend any procedures at this time including EGD. Patient did receive a total of 4 units of PRBCs due to d rop in his hemoglobin. Did have mild electrolyte abnormalities, which were corrected. His WBC count normalized. He was started on IV antibiotics and switched over to oral vancomycin for his C diff. Regarding his ileus, he was initially kept n.p.o. Once he was started passing gas and x-ray looked i mproved, distention improved. He was manually disimpacted. He was started on clear liquids and his diet was advanced. He was able to tolerate his diet. Patient's Eliquis was initially discontinued d ue to his upper GI bleed and anemia requiring multiple transfusions. On echocardiogram, it was noted that the patient had inferior vena cava thrombus. Dr. Ballesteros with Cardiology was also consulted. Initially, patient was not a good candidate for anticoagulation due to severe anemia and bleed. Ther efore, Eliquis was held. However, post transfusion and with his hemoglobin staying stable around 8.5 and 9 as well as no further bleeding, patient was restarted on the Eliquis. Patient did not wish to go to [facility] for placement of IVC filter, which would be an alternative op tion. Case was discussed extensively with the patient and the including risks, benefits, and al ternatives. Patient does understand that he has a poor prognosis given his renal cell carcinoma with failed immunotherapy and not a candidate for further therapy. He has been given a poor prognosis fo r survival of 1 to 2 years along with his other comorbid conditions. He is also a do not attempt res uscitate per his wishes and stated that he does not want aggressive measures including IVC filter luis cement. Understanding the risks, patient was restarted on Eliquis. He needs to watch for signs of b leeding. Patient did well. He was able to tolerate his diet. He was then cleared from Cardiology s tandpoint as well as Nephrology standpoint. GI did not recommend any further intervention nor did [facility] recommend any intervention. Patient's Doppler sonogram was negative for lower extremity DVT. His inferior vena cava thrombus was likely resultant of his renal carcinoma due to prothrombotic stat e. Renal ultrasound did again showed the solid right renal mass, 5 cm. Patient was then discharged back to nursing facility in a fair condition. However, overall his prognosis remains poor. Hospice and palliative care options were also given to the patient and the family, however, they declined wan ting to continue with current treatment, however, not with any aggressive measures such as placement of devices or resuscitation. Patient was then discharged back. He will finish off course of vancomy annie for his C diff. He needs to follow up with his primary care physician in 2 to 3 days. Follow up with GI, Dr. Barbosa in 2 weeks. Follow up with stage director, Dr. Ballesteros in 2 weeks. Follow up w [facility] wastewater treatment plant attendant, Dr. Olsen in 2 weeks. Return to ER for worsening condition. Repeat ultrasound to evaluate inferior vena cava thrombus in couple of weeks. Diet: Diabetic. Activity: Fall precautions. Physical Examination: General: Awake, alert, and oriented x3. Morbidly obese male. CV: S1, S2. Irregularly irregular. Respiratory: Moving air well bilaterally. Abdomen: Soft. Mild distention. Positive bowel sounds. No tenderness. Extremities: No clubbing, cyanosis, or edema. Neurologic: Nonfocal. Time Spent: Total time spent discharging the patient was 39 minutes. /PERLA Voice ID: [id number] Report ID: [id number]
== END 2019-06-19 14:47 | DRG 371 ==
LOC: ER 16:48 → ERHOLD 21:48 → 3RD-ICU 22:14 → 4TH 06-16 08:35
PROVIDERS: ADMIT Internal Medicine; ATTEND Family Medicine
PROC: 30233N1 Transfusion of Nonautologous Red Blood Cells into Peripheral Vein, Percutaneous Approach (ICD-10-PCS; principal; 2019-06-15)
DX: A04.72 Enterocolitis due to Clostridium difficile, not specified as recurrent (principal); I82.220 Acute embolism and thrombosis of inferior vena cava; I50.33 Acute on chronic diastolic (congestive) heart failure; N17.0 Acute kidney failure with tubular necrosis; K56.7 Ileus, unspecified; C64.9 Malignant neoplasm of unspecified kidney, except renal pelvis; J44.1 Chronic obstructive pulmonary disease with (acute) exacerbation; I13.0 Hypertensive heart and chronic kidney disease with heart failure and stage 1 through stage 4 chronic kidney disease, or unspecified chronic kidney disease; N18.4 Chronic kidney disease, stage 4 (severe); K92.2 Gastrointestinal hemorrhage, unspecified; J96.10 Chronic respiratory failure, unspecified whether with hypoxia or hypercapnia; D62 Acute posthemorrhagic anemia; K52.89 Other specified noninfective gastroenteritis and colitis; K59.00 Constipation, unspecified; E11.22 Type 2 diabetes mellitus with diabetic chronic kidney disease; N40.0 Benign prostatic hyperplasia without lower urinary tract symptoms; T50.8X1A Poisoning by diagnostic agents, accidental (unintentional), initial encounter; N14.4 Toxic nephropathy, not elsewhere classified; E87.6 Hypokalemia; I25.10 Atherosclerotic heart disease of native coronary artery without angina pectoris; I48.2 Chronic atrial fibrillation; Z66 Do not resuscitate; Z95.5 Presence of coronary angioplasty implant and graft; Z79.01 Long term (current) use of 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; Z99.81 Dependence on supplemental oxygen; R82.71 Bacteriuria
CPT/HCPCS: 36415; 36430; 51702; 71045; 74018; 74176; 76770; 80048; 80053; 80076; 81003; 81015; 82550; 82553; 82570; 82962; 83605; 83690; 83735; 83970; 84132; 84145; 84156; 84484; 84550; 85014; 85018; 85025; 85610; 85730; 86850; 86900; 86901; 87040; 87086; 87088; 87493; 87804; 93005; 93306; 93970; 94640; 96365; 96366; 96367; 96375; 97110; 97530; 99285; C9113; J0696; J1940; J2405; J2543; J2930; J3475; J7030; J7605; P9016

== ENCOUNTER 2019-08-01 12:38 | Inpatient (IN) | payer OTHER ==
[2019-08-01] MEDS ORDERED: METHYLPREDNISOLONE 125 MG INJ ONE (12:50)
[2019-08-01] MEDS ORDERED: LEVALBUTEROL 1.25 MG/3 ML NEB ONE (12:51)
[2019-08-01 13:28] LABS: Magnesium 1.9 mg/dL (1.8-2.4); Potassium 3.6 mmol/L (3.5-5.1); Troponin (Emerg Dept Use Only) 0.03 ng/mL (0.0-0.045)
[2019-08-01] MEDS ORDERED: FUROSEMIDE 40 MG/4 ML VIAL ONE (13:43)
[2019-08-01 14:01] LABS: Absolute Lymphocytes (CBC) 1.2 K/uL (0.7-4.9); Basophils % 0.4 % (0-1.3); Hematocrit 28.1 % (39.6-49.0); Lymphocytes % 12.4 % (15.3-44.8); MPV 8.1 fL (7.6-11.3); RBC Red Blood Cell Count 3.85 M/uL (4.33-5.43)
[2019-08-01 14:04] LABS: Protime INR 2.39
[2019-08-01 14:31] LABS: Anisocytosis 2+; Blood Morphology Comment NOTED (NOT SEEN); Platelet Estimate ADEQ; Urine White Blood Cell Casts OK
--- NOTE | 2019-08-01 14:51 | ER ---
Nurse's Notes [facility] Name: Sam Suarez Age: 73 yrs Sex: Male : 1945 Arrival Date: 08/01/2019 Time: 12:40 Bed 3 Private MD: Diagnosis: Unspecified combined systolic (congestive) and diastolic (congestive) heart failure;Pulmonary edema;Chronic obstructive pulmonary disease with (acute) exacerbation;Hypoxemia Presentation: 08/01 12:42 Presenting complaint: EMS states: half-way reports difficulty breathing since iw yesterday ,hx of copd, +cough, audible wheezing, half-way reported 90-91% on RA, gave albuterol treatment X 2. Transition of care: patient was not received from another setting of care. Transition of care: patient was received from another setting of care (long-term care facility), [facility]. Onset of symptoms was July 31, 2019. Risk Assessment: Do you want to hurt yourself or someone else? Patient reports no desire to harm self or others. Initial Sepsis Screen: Does the patient meet any 2 criteria? RR > 20 per min. Does the patient have a suspected source of infection? No. Patient's initial sepsis screen is negative. Care prior to arrival: IV initiated. 20 GA, in the left antecubital area, Glucose check: 120 Med neb given. Oxygen administered. via CPAP or BiPAP. 12:42 Method Of Arrival: EMS: [facility] iw 12:42 Acuity: AMANDA 2 iw Triage Assessment: 13:30 Respiratory: Onset: The symptoms/episode began/occurred suddenly, the patient has mild mg2 shortness of breath. 13:30 General: Appears in no apparent distress. comfortable, Behavior is calm, cooperative. mg2 Historical: - Allergies: 12:48 Dilaudid; iw 12:48 Metformin HCl; iw - Home Meds: 12:55 Symbicort 80-4.5 mcg/actuation inhalation HFAA 2 puffs 2 times per day [Active]; iw ipratropium-albuterol 0.5 mg-3 mg(2.5 mg base)/3 mL Inhl nebu 3 mL 4 times per day [Active]; Zofran (as hydrochloride) 4 mg Oral tab 1 tabs 3 times per day [Active]; gabapentin 300 mg oral cap 3 times per day [Active]; Betapace 80 mg oral tab 1 tab 2 times per day [Active]; sertraline 50 mg oral tab 1 tab once daily [Active]; ranolazine oral 1000 mg oral 2 times per day [Active]; Lasix 20 mg Oral tab 1 tab once daily [Active]; Amaryl 2 mg Oral tab 1 tab once daily [Active]; lisinopril 20 mg Oral tab twice a day [Active]; tamsulosin 0.4 mg Oral cp24 1 cap once daily [Active]; Lipitor 10 mg Oral tab 1 tab once daily [Active]; Eliquis 5 mg Oral tab 1 tab 2 times per day [Active]; carvedilol 12.5 mg oral tab 1 tab 2 times per day [Active]; acetaminophen Oral as needed [Active]; 13:33 albuterol sulfate 90 mcg/actuation Inhl HFAA 2 puffs every 6 hours [Active]; Aldactone mg2 25 mg Oral tab 1 tab once daily [Active]; alprazolam 0.5 mg Oral TbDL 1 tab [Active]; aspirin 325 mg Oral tab 1 tab once daily [Active]; Colace 100 mg Oral cap 1 cap 2 times per day [Active]; - PMHx: 12:48 Anemia; Anxiety; ATHEROSCLEROSIS; Atrial Fib; B12 deficiency; benign prostatic iw hyperplasia; CHF; Chronic pain; CKD; cognitive communication deficit; constipation; COPD; Diabetes - NIDDM; DYSPHAGIA; GERD; Hematuria; Hypertension; Hypokalemia; Hypomagnesemia; Major Depressive Disorder; - Immunization history:: Adult Immunizations up to date. - Social history:: Smoking status: Patient/guardian denies using tobacco. - Family history:: not pertinent. - Ebola Screening: : Patient negative for fever greater than or equal to 101.5 degrees Fahrenheit, and additional compatible Ebola Virus Disease symptoms Patient denies exposure to infectious person Patient denies travel to an Ebola-affected area in the 21 days before illness onset No symptoms or risks identified at this time. - Hospitalizations: : No recent hospitalization is reported. Screenin:00 Abuse screen: Denies threats or abuse. Denies injuries from another. Nutritional mg2 screening: No deficits noted. Tuberculosis screening: Fall Risk IV access (20 points). Assessment: 13:15 Musculoskeletal: Circulation, motion, and sensation intact. Capillary refill < 3 mg2 seconds. 13:28 General: Appears in no apparent distress. comfortable, Behavior is calm, cooperative. mg2 Pain: Denies pain. Neuro: Level of Consciousness is awake, alert, obeys commands, Oriented to person, place, time, situation. Cardiovascular: Rhythm is. Respiratory: Airway is patent Respiratory effort is even, unlabored, Respiratory pattern is regular, symmetrical, tachypnea Breath sounds with wheezes in right upper lobe and left upper lobe. Respiratory: Reports shortness of breath. GI: No signs and/or symptoms were reported involving the gastrointestinal system. : No signs and/or symptoms were reported regarding the genitourinary system. EENT: No signs and/or symptoms were reported regarding the EENT system. Derm: Skin is intact, is healthy with good turgor, Skin is pink, warm \T\ dry. normal. 15:09 Reassessment: Patient appears in no apparent distress at this time. provider spoke to mg2 the patient about the plan for hospitalization and he agreed. Vital Signs: 12:46 BP 167 / 99; Pulse 107; Resp 24 S; Temp 97.5(TE); Pulse Ox 93% ; iw 13:30 BP 158 / 94; Pulse 103; Resp 24; Pulse Ox 97% on 2 lpm NC; mg2 15:17 BP 155 / 105; Pulse 100; Resp 22; Pulse Ox 98% on 2 lpm NC; mg2 ED Course: 12:40 Patient arrived in ED. rn 12:40 Caesar Dacosta MD is Attending Physician. rn 12:46 Triage completed. iw 12:46 Kris Mccain, CARA is Primary Nurse. jl7 12:48 Arm band placed on. iw 12:54 EKG done, by ED staff, reviewed by Caesar Dacosta MD Flu and/or RSV swab sent to lab. ms Missed attempt(s): 20 gauge in right forearm. Bleeding controlled, band aid applied, catheter tip intact. 12:55 Inserted saline lock: 20 gauge in right forearm, using aseptic technique. Blood mg2 collected. 13:00 Zeus Meraz, CARA is Primary Nurse. mg2 13:00 Patient has correct armband on for positive identification. job placement specialist on. Pulse mg2 ox on. NIBP on. Door closed. 13:00 No provider procedures requiring assistance completed. mg2 13:03 XRAY CXR (1 view) In Process Unspecified. EDMS 14:48 Charlotte Collins MD is Hospitalizing Provider. rn 15:41 Patient admitted, IV remains in place. mg2 Administered Medications: 12:57 Drug: SOLU-Medrol 125 mg Route: IVP; Site: right forearm; jl7 13:42 Follow up: Response: No adverse reaction mg2 12:57 Drug: Xopenex (3) 1.25 mg Route: Inhalation; jl7 13:41 Follow up: Response: No adverse reaction; Marked relief of symptoms mg2 13:47 Drug: Lasix 40 mg Route: IVP; Site: right forearm; mg2 14:15 Follow up: Response: No adverse reaction mg2 Outcome: 14:49 Decision to Hospitalize by Provider. rn 15:27 Admitted to Tele accompanied by tech, via stretcher, room 415, with oxygen, with chart, mg2 Report called to CARA Degroot 15:27 Condition: stable 15:27 Instructed on the need for admit, Demonstrated understanding of follow-up care. 15:41 Patient left the ED. mg2 Signatures: Dispatcher [employer] EDIman Dennis RN RN Sophie Panchal ms, Roman, MD MD rn Leal, Jahala, RN RN jl7 Zeus Meraz RN RN mg2
--- NOTE | 2019-08-01 14:51 | EDPHYS ---
Physician Documentation [facility] Name: Sam Suarez Age: 73 yrs Sex: Male : 1945 Arrival Date: 08/01/2019 Time: 12:40 Bed 3 Private MD: ED Physician Caesar Dacosta HPI: 08/01 12:43 This 73 yrs old Male presents to ER via Unassigned with complaints of rn Breathing Difficulty. 12:43 The patient has shortness of breath at rest. Onset: The symptoms/episode began/occurred rn last night. Duration: The symptoms are continuous. The patient's shortness of breath is aggravated by exertion, talking. Associated signs and symptoms: Pertinent positives: non-productive cough, Pertinent negatives: chest pain, fever, hemoptysis. Severity of symptoms: At their worst the symptoms were moderate in the emergency department the symptoms have improved. The patient has experienced similar episodes in the past. The patient has not recently seen a physician. Reports sob since last night, no-productive cough, has COPD and CHF, given neb by [facility] without much improvement, 911 called, put on CPAP and another neb, reports only mild improvement. . Historical: - Allergies: 12:48 Dilaudid; iw 12:48 Metformin HCl; iw - Home Meds: 12:55 Symbicort 80-4.5 mcg/actuation inhalation HFAA 2 puffs 2 times per day [Active]; iw ipratropium-albuterol 0.5 mg-3 mg(2.5 mg base)/3 mL Inhl nebu 3 mL 4 times per day [Active]; Zofran (as hydrochloride) 4 mg Oral tab 1 tabs 3 times per day [Active]; gabapentin 300 mg oral cap 3 times per day [Active]; Betapace 80 mg oral tab 1 tab 2 times per day [Active]; sertraline 50 mg oral tab 1 tab once daily [Active]; ranolazine oral 1000 mg oral 2 times per day [Active]; Lasix 20 mg Oral tab 1 tab once daily [Active]; Amaryl 2 mg Oral tab 1 tab once daily [Active]; lisinopril 20 mg Oral tab twice a day [Active]; tamsulosin 0.4 mg Oral cp24 1 cap once daily [Active]; Lipitor 10 mg Oral tab 1 tab once daily [Active]; Eliquis 5 mg Oral tab 1 tab 2 times per day [Active]; carvedilol 12.5 mg oral tab 1 tab 2 times per day [Active]; acetaminophen Oral as needed [Active]; 13:33 albuterol sulfate 90 mcg/actuation Inhl HFAA 2 puffs every 6 hours [Active]; Aldactone mg2 25 mg Oral tab 1 tab once daily [Active]; alprazolam 0.5 mg Oral TbDL 1 tab [Active]; aspirin 325 mg Oral tab 1 tab once daily [Active]; Colace 100 mg Oral cap 1 cap 2 times per day [Active]; - PMHx: 12:48 Anemia; Anxiety; ATHEROSCLEROSIS; Atrial Fib; B12 deficiency; benign prostatic iw hyperplasia; CHF; Chronic pain; CKD; cognitive communication deficit; constipation; COPD; Diabetes - NIDDM; DYSPHAGIA; GERD; Hematuria; Hypertension; Hypokalemia; Hypomagnesemia; Major Depressive Disorder; - Immunization history:: Adult Immunizations up to date. - Social history:: Smoking status: Patient/guardian denies using tobacco. - Family history:: not pertinent. - Ebola Screening: : Patient negative for fever greater than or equal to 101.5 degrees Fahrenheit, and additional compatible Ebola Virus Disease symptoms Patient denies exposure to infectious person Patient denies travel to an Ebola-affected area in the 21 days before illness onset No symptoms or risks identified at this time. - Hospitalizations: : No recent hospitalization is reported. ROS: 12:43 Constitutional: Negative for fever, chills, and weight loss, Eyes: Negative for injury, rn pain, redness, and discharge, Neck: Negative for injury, pain, and swelling, Cardiovascular: Negative for chest pain, palpitations, and edema, Respiratory: Negative for pleuritic chest pain Abdomen/GI: Negative for abdominal pain, nausea, vomiting, diarrhea, and constipation, MS/Extremity: Negative for injury and deformity, Skin: Negative for injury, rash, and discoloration, Neuro: Negative for headache, weakness, numbness, tingling, and seizure. Exam: 12:43 Constitutional: This is a well developed, well nourished patient who is awake, alert, rn + mild tachypnea Head/Face: Normocephalic, atraumatic. ENT: MMM, no stridor or swelling Cardiovascular: Irregular rhythm, tachycardic. No pulse deficits. Respiratory: + mild tachypnea with crackles at bases and wheezing on top Abdomen/GI: soft, non-tender MS/ Extremity: Pulses equal, no cyanosis. Neurovascular intact. Full, normal range of motion. Equal circumference. Neuro: Awake and alert, GCS 15, oriented to person, place. Motor strength 5/5 in all extremities. Sensory grossly intact. 12:58 ECG was reviewed by the Attending Physician. rn Vital Signs: 12:46 BP 167 / 99; Pulse 107; Resp 24 S; Temp 97.5(TE); Pulse Ox 93% ; iw 13:30 BP 158 / 94; Pulse 103; Resp 24; Pulse Ox 97% on 2 lpm NC; mg2 15:17 BP 155 / 105; Pulse 100; Resp 22; Pulse Ox 98% on 2 lpm NC; mg2 MDM: 12:40 Patient medically screened. rn 14:45 Differential diagnosis: CHF exacerbation, Chronic Obstructive Pulmonary Disease rn Myocardial Infarction pneumonia, Pneumothorax pulmonary edema. Data reviewed: vital signs, nurses notes, lab test result(s), EKG, radiologic studies, plain films, and as a result, I will admit patient. Counseling: I had a detailed discussion with the patient and/or guardian regarding: the historical points, exam findings, and any diagnostic results supporting the discharge/admit diagnosis, lab results, radiology results, the need for further work-up and treatment in the hospital. Admission orders: after a detailed discussion of the patient's condition and case, the admit orders are written by me. 14:47 Special discussion:. ED course: Pt still tachypneic, wheezing, has combination CHF/COPD rn exacerbation, will admit to Dr. Collins for further care. . 08/01 12:43 Order name: Blood Culture Adult (2) rn 08/01 12:43 Order name: BMP rn 08/01 12:43 Order name: CBC with Diff rn 08/01 12:43 Order name: Magnesium rn 08/01 12:43 Order name: NT PRO-BNP; Complete Time: 13:31 rn 08/01 12:43 Order name: PT-INR; Complete Time: 14:34 rn 08/01 12:43 Order name: Ptt, Activated; Complete Time: 14:34 rn 08/01 12:43 Order name: Troponin (emerg Dept Use Only); Complete Time: 13:31 rn 1102 12:43 Order name: Flu; Complete Time: 13:31 rn 08/01 12:43 Order name: Procalcitonin; Complete Time: 13:56 rn 11 12:43 Order name: Blood Culture EDMS 08/01 12:43 Order name: Basic Metabolic Panel; Complete Time: 13:31 EDMS 08/01 12:43 Order name: CBC with Automated Diff; Complete Time: 14:34 EDMS 08/01 12:43 Order name: Magnesium; Complete Time: 13:31 EDMS 08/01 12:43 Order name: XRAY CXR (1 view) rn 08/01 12:43 Order name: EKG; Complete Time: 12:44 rn 11 12:43 Order name: Cardiac monitoring; Complete Time: 12:44 rn 08/01 12:43 Order name: EKG - Nurse/Tech; Complete Time: 12:54 rn 11 12:43 Order name: IV Saline Lock; Complete Time: 12:54 rn 08/01 12:43 Order name: Labs collected and sent; Complete Time: 12:54 rn 11 12:43 Order name: O2 Per Protocol; Complete Time: 12:44 rn 08/01 12:43 Order name: O2 Sat Monitoring; Complete Time: 12:44 rn 11 14:04 Order name: CBC Smear Scan; Complete Time: 14:34 EDMS EC:58 Rate is 102 beats/min. Rhythm is irregularly irregular. QRS [place] is Normal. SD interval rn is normal. QRS interval is normal. QT interval is normal. No Q waves. T waves are Normal. No ST changes noted. Clinical impression: Atrial Fibrillation. Interpreted by me. Reviewed by me. Administered Medications: 12:57 Drug: SOLU-Medrol 125 mg Route: IVP; Site: right forearm; jl7 13:42 Follow up: Response: No adverse reaction mg2 12:57 Drug: Xopenex (3) 1.25 mg Route: Inhalation; jl7 13:41 Follow up: Response: No adverse reaction; Marked relief of symptoms mg2 13:47 Drug: Lasix 40 mg Route: IVP; Site: right forearm; mg2 14:15 Follow up: Response: No adverse reaction mg2 Disposition: 08/01/19 14:49 Hospitalization ordered by Charlotte Collins for Inpatient Admission. Preliminary diagnosis are Unspecified combined systolic (congestive) and diastolic (congestive) heart failure, Pulmonary edema, Chronic obstructive pulmonary disease with (acute) exacerbation, Hypoxemia. - Bed requested for Telemetry/MedSurg (Inpatient). - Status is Inpatient Admission. mg2 - Condition is Fair. - Problem is an acute exacerbation. - Symptoms have improved. UTI on Admission? No Signatures: Dispatcher [employer] EDMS Sindi Farah RN RN dw Iman Ellington RN RN iw Caesar Dacosta MD MD rn Leal, Jahala, RN RN jl7 Zeus Meraz RN RN mg2 Corrections: (The following items were deleted from the chart) 12:58 12:43 Constitutional: This is a well developed, well nourished patient who is awake, rn alert, + mild tachypnea Head/Face: Normocephalic, atraumatic. ENT: MMM, no stridor or swelling Cardiovascular: Regular rate and rhythm. No pulse deficits. Respiratory: + mild tachypnea with crackles at bases and wheezing on top Abdomen/GI: soft, non-tender MS/ Extremity: Pulses equal, no cyanosis. Neurovascular intact. Full, normal range of motion. Equal circumference. Neuro: Awake and alert, GCS 15, oriented to person, place. Motor strength 5/5 in all extremities. Sensory grossly intact. rn 15:19 14:49 Hospitalization Ordered by Charlotte Collins MD for Inpatient Admission. Preliminary dw diagnosis is Unspecified combined systolic (congestive) and diastolic (congestive) heart failure; Pulmonary edema; Chronic obstructive pulmonary disease with (acute) exacerbation; Hypoxemia. Bed requested for Telemetry/MedSurg (Inpatient). Status is Inpatient Admission. Condition is Fair. Problem is an acute exacerbation. Symptoms have improved. UTI on Admission? No. rn 15:41 15:19 08/01/2019 14:49 Hospitalization Ordered by Charlotte Collins MD for Inpatient mg2 Admission. Preliminary diagnosis is Unspecified combined systolic (congestive) and diastolic (congestive) heart failure; Pulmonary edema; Chronic obstructive pulmonary disease with (acute) exacerbation; Hypoxemia. Bed requested for Telemetry/MedSurg (Inpatient). Status is Inpatient Admission. Condition is Fair. Problem is an acute exacerbation. Symptoms have improved. UTI on Admission? No. dw
[2019-08-01] MEDS ORDERED: ACETAMINOPHEN 500 MG TAB PO PRN (15:38)
[2019-08-01] MEDS ORDERED: ONDANSETRON 4 MG/2 ML VIAL IV PRN (15:38)
[2019-08-01] MEDS ORDERED: POTASSIUM CL SA 10 MEQ TAB PO ONE (16:30)
[2019-08-01] MEDS ORDERED: GLUCAGON 1 MG/VIAL IM PRN ×2 (16:32→16:34)
[2019-08-01] MEDS ORDERED: D50W 25 GM/50 ML SYRINGE IV PRN ×2 (16:32→16:34)
--- NOTE | 2019-08-01 17:01 | RAD REPORT ---
EXAM DESCRIPTION: [place] Single View08/01/2019 1:03 pm CLINICAL HISTORY: Shortness of breath COMPARISON: May 2019 FINDINGS: Mild bilateral pulmonary opacities. The heart is mildly enlarged IMPRESSION: Mild CHF is suspected
[2019-08-01 17:10] LABS: Arterial Blood Carboxyhemoglob 2.6 % (0-1.5); Blood Gas Oxyhemoglobin 93.9 % (94-97); Blood O2 Saturation 96.9 % (92-98.5)
[2019-08-01 17:20] LABS: Urine Appearance CLEAR; Urine Bilirubin NEGATIVE (NEG); Urine Blood 3+ (NEG); Urine Color YELLOW; Urine Glucose NEGATIVE (NEG); Urine Protein NEGATIVE (NEG); Urine Specific Gravity <=1.005 (1.005-1.030); Urine Urobilinogen 0.2 mg/dL (0.2-1.0)
[2019-08-01] MEDS: FUROSEMIDE 40 MG/4 ML VIAL IV SCH (17:24)
[2019-08-01 18:14] LABS: Urine Bacteria <20 /HPF (NONE SEEN); Urine Culture Reflex Order NOT NEEDED; Urine RBC TNTC /HPF (NONE SEEN)
--- NOTE | 2019-08-01 19:30 | EKG ---
Test Date: 2019-08-01 Test Time: 12:48:14 Clinical Research Technician: MARC MEASUREMENT RESULTS: Intervals: Rate: 102 NC: QRSD: 100 QT: 362 QTc: 471 [place]: P: NC: QRS: -29 T: 87 INTERPRETIVE STATEMENTS: Atrial fibrillation with rapid ventricular response Low voltage QRS Nonspecific T wave abnormality Abnormal ECG Compared to ECG 06/15/2019 17:31:11 Low QRS voltage now present T-wave abnormality now present Left-axis deviation no longer present Prolonged QT interval no longer present Electronically Signed On 08-01-19 19:29:34 CDT by Clayton Miller
[2019-08-01] MEDS ORDERED: ALBUTEROL 2.5 MG/3 ML NEB SOL NEB SCH (20:00)
[2019-08-01] MEDS: LEVALBUTEROL 1.25 MG/3 ML NEB NEB SCH (20:05)
[2019-08-01] MEDS: IPRATROPIUM BROM 0.5MG/2.5ML NEB SCH (20:05)
[2019-08-01] MEDS: INSULIN -REGULAR HUMAN 50 UNIT/0.5 ML ML SQ SCH (20:49)
[2019-08-01] MEDS: METHYLPREDNISOLONE 40 MG INJ IV SCH (20:49)
[2019-08-01] MEDS ORDERED: HYDRALAZINE HCL 20 MG/ML VIAL IV PRN (21:21)
[2019-08-01] MEDS ORDERED: HOME MED 1 EA UNK (Budesonide/Formoterol Fumarate [Symbicort 80-4.5 Mcg Inhaler] 2 PUFF) IH SCH (21:30)
--- NOTE | 2019-08-01 22:40 | HP ---
Date of Admission: 08/01/2019 Primary Care Physician: At the nursing facility. Consultants: Dr. Milner with Pulmonology. Chief Complaint: Shortness of breath. Code Status: Do not resuscitate. 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 Recently discharged fro m the hospital with abdominal pain and colitis, who comes in due to respiratory failure. Patient was very tachypneic and hypoxic down in the 80s at the nursing facility. CPAP was attempted, however, p atient did not tolerate CPAP. Therefore, patient was transferred to the ER. Patient does report wor sening shortness of breath gradually over the past week. Reports worsening edema of his lower extrem ities. Denies any changes in his medications. He has been compliant with his medications. Cristina g to the , he is also compliant with a diet restrictions including low sodium and fluid restricti on diet at the nursing facility. His symptoms were constant, moderate, progressively worsening. His workup revealed normal WBC count. BNP was 2674. Procalcitonin was negative. Chest x-ray did not s how any acute infiltrates, however, did look volume overloaded. No official report. Patient was sig nificantly wheezing. He was placed on 2 L via nasal cannula, improved to 90%. Patient does not wish to have the BiPAP placed. When seen in the ER, he was awake, alert, oriented x3, in some mild respi ratory distress. Past Medical History: Atrial fibrillation; COPD; diastolic heart failure; acute on chronic kidney di sease; right renal mass with renal cell carcinoma with failed immunotherapy; history of upper GI blee d; anemia; recently diagnosed inferior vena cava thrombus, on Eliquis; benign prostatic hyperplasia. Past Surgical History: Cholecystectomy, hernia repair, cardiac stent x2, colon polyp removal, append ectomy. Allergies: DILAUDID AND METFORMIN. Medications: List reviewed. Social History: The patient denies any current tobacco use. No alcohol use or illicit drug use. Re sident of nursing facility. Patient no longer ambulates, is transferred to the wheelchair with Lisa lift. Patient is for 50 years, has 2 children, 1 adopted child. 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 Family History: Mother had breast cancer. Sister had ovarian cancer. Brother had heart disease and heart attack. Review of Systems: Ten-point system reviewed, negative except as per HPI. Physical Examination: Vital Signs: Blood pressure 167/99, pulse 107, respirations 24, temperature 97.5, O2 of 93% on 2 L v ia nasal cannula. General: Awake, alert, and oriented x3, elderly male, ill-appearing, in mild respiratory distress. HEENT: Normocephalic, atraumatic. PERRLA. EOMI. Moist mucous membranes. Oropharynx is clear. Po or dentition. Conjunctivae anicteric. Neck: Supple. Trachea midline. CV: S1, S2. Irregularly irregular. Peripheral pulses weak. Respiratory: Diminished breath sounds. Diffuse wheezing heard. Audible wheezing. Patient is tachy pneic with use of accessory muscles. Gastrointestinal: Abdomen is soft, nontender, nondistended. Positive bowel sounds. No guarding or rigidity. Extremities: No clubbing or cyanosis. Patient has 2+ lower extremity edema bilaterally. No calf te nderness. Neuro: Cranial nerves 2 through 12 intact grossly. No focal neurological deficits. Speech is martin l. Patient has overall generalized weakness. Skin: No rashes. Normal skin turgor. Psych: Mood is okay. Affect is flat. Insight and judgment are fair. Laboratory Data: UA is pending. Sodium 138, potassium 3.6, chloride 107, CO2 of 26, BUN 12, creatin ine 0.88, glucose 114, calcium 8.6, magnesium 1.9, troponin 0.03, BNP 2674. Procalcitonin less than 0.05. INR 2.39. WBC 9.5, H and H 9.4 and 28.1, platelets 352, neutrophils 79%. Influenza screen ne stef. Chest x-ray shows significant pulmonary edema. No official report. Assessment: A 73-year-old male with: 1.Acute on chronic respiratory failure, currently on 2 L via nasal cannula, likely secondary to acut e chronic obstructive pulmonary disease and congestive heart failure exacerbation. We will continue supplemental oxygen and continue treatment for chronic obstructive pulmonary disease and congestive h eart failure. We will obtain ABG. Patient may need to be placed on BiPAP, however, the patient has already had hesitant to be on BiPAP. 2.Acute chronic obstructive pulmonary disease exacerbation. Continue with nebulizer treatments. We will place on Xopenex, as patient has atrial fibrillation to avoid further tachycardia. IV steroids . Pulmonology consultation. Supplemental oxygen. 3.Acute diastolic heart failure. We will continue with congestive heart failure guidelines. IV Las ix. Monitor I's and O's. It will be difficult to weigh the patient daily as he is nonambulatory. Cristina mead has had recent echocardiogram from 06/16/2019 shows ejection fraction of 70%. 4.Recent inferior vena cava thrombus. We will continue Eliquis. 5.Anemia of chronic disease. Continue to monitor H and H, transfuse as needed. 6.Essential hypertension. We will resume home medications as appropriate. 7.Renal cell carcinoma. Failed treatment with immunotherapy. 8.Coronary artery disease, muscogee artery and muscogee heart without angina. 9.Diabetes mellitus type 2. We will continue with sliding scale insulin. Monitor blood glucose lev els. 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 We will place on fall precautions. 11.Gastroesophageal reflux disease without esophagitis. Continue PPI. 12.Benign prostatic hypertrophy. Continue tamsulosin. 13.Deep vein thrombosis prophylaxis. Patient is already on Eliquis. Plan: Admit to Med/Surg, place as inpatient. Length of stay greater than 2 midnights. FRANC Voice ID: [id number]
[2019-08-01] MEDS: MELATONIN 5 MG TABLET PO SCH (22:43)
[2019-08-02] MEDS: IPRATROPIUM BROM 0.5MG/2.5ML NEB SCH ×4 (02:00→20:00)
[2019-08-02] MEDS: LEVALBUTEROL 1.25 MG/3 ML NEB NEB SCH ×2 (02:00→07:34)
[2019-08-02] MEDS ORDERED: METHYLPREDNISOLONE 125 MG INJ IV ONE (03:04)
[2019-08-02] MEDS ORDERED: ONDANSETRON 4 MG/2 ML VIAL IV ONE ×2 (03:05→06:02)
[2019-08-02] MEDS ORDERED: METOCLOPRAMIDE 10 MG/2mL INJ IV SCH (05:00)
[2019-08-02 06:37] LABS: Absolute Lymphocytes (CBC) 0.8 K/uL (0.7-4.9); Lymphocytes % 8.2 % (15.3-44.8); RBC Red Blood Cell Count 3.97 M/uL (4.33-5.43)
[2019-08-02 06:56] LABS: Potassium 3.4 mmol/L (3.5-5.1)
[2019-08-02] MEDS: INSULIN -REGULAR HUMAN 50 UNIT/0.5 ML ML SQ SCH ×4 (07:30→21:13)
[2019-08-02] MEDS ORDERED: INSULIN -REGULAR HUMAN 50 UNIT/0.5 ML ML SQ SCH (07:30)
[2019-08-02] MEDS ORDERED: IPRATROPIUM BROM 0.5MG/2.5ML ONE (07:33)
[2019-08-02] MEDS ORDERED: LEVALBUTEROL 0.63 MG/3 ML NEB ONE (07:33)
[2019-08-02] MEDS ORDERED: LISINOPRIL 10 MG TAB PO SCH (09:00)
[2019-08-02] MEDS ORDERED: RANOLAZINE 1000 MG PO SCH (09:00)
[2019-08-02] MEDS: METHYLPREDNISOLONE 40 MG INJ IV SCH (09:20)
[2019-08-02] MEDS: APIXABAN 5 MG TABLET PO SCH ×2 (09:20→21:11)
[2019-08-02] MEDS: SERTRALINE HCL 50 MG TAB PO SCH (09:20)
[2019-08-02] MEDS: SOTALOL HCL 80 MG TAB PO SCH ×2 (09:20→21:12)
[2019-08-02] MEDS: FUROSEMIDE 40 MG/4 ML VIAL IV SCH ×2 (09:20→16:44)
[2019-08-02] MEDS: GLIMEPIRIDE 2 MG TABLET PO SCH (09:21)
[2019-08-02] MEDS: LISINOPRIL 20 MG TAB PO SCH ×2 (09:21→21:12)
[2019-08-02] MEDS: GABAPENTIN 300 MG CAP PO SCH ×3 (09:21→21:12)
[2019-08-02] MEDS: TAMSULOSIN 0.4 MG SR CAP PO SCH (09:21)
[2019-08-02 10:51] LABS: Anisocytosis 3+; Blood Morphology Comment NOTED (NOT SEEN); Platelet Estimate ADEQ
[2019-08-02] MEDS: ARFORMOTEROL TARTRATE 15 MCG/2 ML VIAL.NEB NEB SCH ×2 (11:22→20:00)
--- NOTE | 2019-08-02 11:47 | P.CNS ---
Date of Consult: 08/02/19 Chief Complaint: Shortness of breath History of Present Illness: Patient is 73 years of age with recurrent hospital was lies a romero and multiple medical problems admitted with worsening shortness of breath. He does live in a jail and is with his medication. Patient quit smoking about a year ago complaining of wheezy patient has some lower extremity edema. History of prior stroke he does have expressive dysphagia multiple medical problems Allergies hydromorphone [From Dilaudid] Allergy (Verified 06/15/19 23:00) Nausea/Vomiting metformin Allergy (Verified 06/15/19 23:00) Rash Home Medications: Acetaminophen [Acetaminophen ER] 650 mg PO Q6HP PRN 08/01/19 Apixaban [Eliquis] 5 mg PO BID 08/01/19 Atorvastatin Calcium [Lipitor*] 10 mg PO BEDTIME 08/01/19 Carvedilol [Coreg*] 12.5 mg PO BID 08/01/19 Furosemide [Lasix*] 20 mg PO DAILY 08/01/19 Gabapentin 300 mg PO TID 08/01/19 Glimepiride [Amaryl*] 2 mg PO DAILY 08/01/19 Ipratropium/Albuterol Sulfate [Iprat-Albut 0.5-3(2.5) mg/3 ml] 3 ml NEB Q4HP PRN 08/01/19 Lisinopril [Prinivil*] 20 mg PO BID 08/01/19 Melatonin 5 mg PO BEDTIME 08/01/19 Ondansetron [Zofran (Odt)*] 4 mg PO Q8HP 08/01/19 Ranolazine [Ranolazine ER] 1,000 mg PO BID 08/01/19 Sertraline HCl 50 mg PO DAILY 08/01/19 Sotalol HCl [Betapace*] 80 mg PO BID 08/01/19 Tamsulosin HCl 0.4 mg PO DAILY 08/01/19 Fluticasone/Umeclidin/Vilanter [Trelegy Ellipta 100-62.5-25] 1 each IH DAILY #1 blst.w.dev 08/02/19 - Past Medical/Surgical History Diabetic: Yes -: Hypertension -: CHF, diastolic dysfunction -: COPD, former smoker -: Renal cell carcinoma -: Atrial fibrillation on chronic anti coagulation -: Atherosclerotic Heart disease -: Diabetes mellitus type 2 -: History of falls -: History of recurring UTI -: Cataracts -: GERD -: Benign prostatic hyperplasia -: Cholecystectomy -: Hernia repair -: Cardiac stents x2 -: Colon polyp removal -: Appendectomy Psychosocial/ Personal History: The patient is 48 years, has 2 children and 1 adopted child. 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 Patient currently at jail. - Family History Mother Medical History: Cancer Notes: breast cancer Sister Medical History: Cancer Notes: ovarian cancer Brother Medical History: Heart disease Notes: heart attack - Social History Smoking Status: Current every day smoker Alcohol use: No CD- Drugs: No Caffeine use: No Place of Residence: Longterm Review of Systems Unremarkable Respiratory: Shortness of Breath Physical Examination Temp Pulse Resp BP Pulse Ox 97.9 F 86 18 170/82 H 98 08/02/19 08:00 08/02/19 09:21 08/02/19 08:00 08/02/19 09:21 08/02/19 08:00 General: In no apparent distress Respiratory: Expiratory wheezes Cardiovascular: Normal S1 S2, Edema (1+ edema) Gastrointestinal: Normal bowel sounds, Soft and benign Laboratory Data (last 24 hrs) 08/01/19 13:43: PT 27.3 H, INR 2.39, APTT 59.3 H 08/01/19 13:43: WBC 9.5, Hgb 9.4 L, Hct 28.1 L, Plt Count 352 08/01/19 12:50: Sodium 138, Potassium 3.6, BUN 12, Creatinine 0.88, Glucose 114 H, Magnesium 1.9 - Problems (1) COPD exacerbation Current Visit: Yes Status: Acute Plan: Patient is 73 years of age recurrent hospital admission multiple medical problems admitted with worsening shortness of breath. 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
[2019-08-02] MEDS ORDERED: POTASSIUM CL SA 10 MEQ TAB PO ONE (12:00)
--- NOTE | 2019-08-02 12:15 | RAD REPORT ---
EXAM DESCRIPTION: RAD - Abdomen W Erect - 08/02/2019 7:41 am CLINICAL HISTORY: vomiting Pain COMPARISON: No comparisons FINDINGS: Generalized distention of large and small bowel loops are present throughout the abdomen c ompatible with adynamic ileus. No pneumoperitoneum. No significant bony findings. IMPRESSION: Diffuse adynamic ileus.
[2019-08-02] MEDS: LEVALBUTEROL 1.25 MG/3 ML NEB NEB PRN (13:17)
[2019-08-02] MEDS ORDERED: INFLUENZA VACCINE (for 3y+) 0.5 ML DOSE IMVAC ONE (14:00)
--- NOTE | 2019-08-02 15:55 | PN ---
Date of Progress Note: 08/02/2019 Subjective: Patient is seen and examined. Chart reviewed and case discussed with RN. Patient states he is doing slightly better, still having some shortness of breath. Coughing up some blackish type sputum. Medications: List reviewed. Physical Examination: Vital Signs: Temperature 97.9, heart rate 86, blood pressure 170/82, respirations 18, O2 98% on 2 L via nasal cannula. General: Awake, alert, and oriented x3. Elderly male, obese, ill appearing. CV: S1, S2. Irregularly irregular. Peripheral pulses weak. Respiratory: Diminished breath sounds. Patient has wheezing and crackles. Patient is slightly tachypneic. No use of accessory muscles. Gastrointestinal: Abdomen is soft, nontender, nondistended. Positive bowel sounds. Extremities: No clubbing or cyanosis. Patient has bilateral lower extremity edema. Neurologic: Nonfocal. Laboratory Data: Sodium 140, potassium 3.4, chloride 104, CO2 30, BUN 18, creatinine 1.16, glucose 170, calcium 9.2. WBC 9.8, H and H of 9.7 and 29, platelets 384, neutrophils 90%. Blood cultures and sputum cultures are currently pending. Abdominal x-ray pending. Assessment And Plan: A 73-year-old male with: 1. Acute on chronic respiratory failure with hypoxia secondary to chronic obstructive pulmonary disease and congestive heart failure exacerbation, currently on 2 L via nasal cannula. We will continue to provide supportive treatment and wean off oxygen as tolerated. 2. Acute chronic obstructive pulmonary disease exacerbation. Continue with IV steroids, Xopenex and ipratropium. Appreciate Pulmonology input. 3. Acute diastolic heart failure. Continue with congestive heart failure guidelines. Continue diuretics. Monitor I's and O's and continue on fluid restrictions as last known EF is 70%. 4. Recent inferior vena cava thrombus, on Eliquis. Repeat Echo to assess thrombus. Unable to be done on weekends. 5. Possible hemoptysis. Patient is spitting up with blackish sputum. We will repeat echocardiogram to further evaluate inferior vena cava thrombus, may need to hold Eliquis. 6. Anemia of chronic disease. Monitor H and H, transfuse as needed. 7. Essential hypertension, not well controlled. We will add p.r.n. medications. 8. Renal cell carcinoma. Failed immunotherapy. 9. Coronary artery disease, [place] artery and [place] heart without angina, stable. 10. Diabetes mellitus type 2. Sliding scale insulin and monitor Accu-Cheks. 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 Continue fall precautions. Patient is wheelchair with Lisa lift only. 12. Gastroesophageal reflux disease without esophagitis. Continue PPI. 13. Benign prostatic hypertrophy. Continue tamsulosin. 14. Deep vein thrombosis prophylaxis. Patient is on anticoagulation with Eliquis. /PERLA Voice ID: [id number] Report ID: [id number] [facility]
[2019-08-02] MEDS: ATORVASTATIN 10 MG TAB PO SCH (21:11)
[2019-08-02] MEDS: MELATONIN 5 MG TABLET PO SCH (21:11)
[2019-08-02] MEDS: predniSONE 20 MG TAB PO SCH (21:12)
[2019-08-03] MEDS ORDERED: POTASSIUM 25 MEQ EFFERV TAB PO ONE (00:25)
[2019-08-03] MEDS: IPRATROPIUM BROM 0.5MG/2.5ML NEB SCH ×4 (02:00→19:35)
[2019-08-03] MEDS ORDERED: METOCLOPRAMIDE 10 MG/2mL INJ IV ONE (02:00)
[2019-08-03] MEDS: LEVALBUTEROL 1.25 MG/3 ML NEB NEB PRN (02:00)
[2019-08-03 05:51] LABS: Absolute Lymphocytes (CBC) 0.8 K/uL (0.7-4.9); Basophils % 0.2 % (0-1.3); Hematocrit 27.4 % (39.6-49.0); Lymphocytes % 5.1 % (15.3-44.8); MPV 8.5 fL (7.6-11.3); RBC Red Blood Cell Count 3.69 M/uL (4.33-5.43)
[2019-08-03 07:00] LABS: Anisocytosis 1+; Blood Morphology Comment NOTED (NOT SEEN); Elliptocytes 2+; Hypochromasia 2+; Platelet Estimate ADEQ; Poikilocytosis 2+; Teardrop Cell 1+
[2019-08-03] MEDS: INSULIN -REGULAR HUMAN 50 UNIT/0.5 ML ML SQ SCH ×4 (07:30→21:00)
[2019-08-03] MEDS: ARFORMOTEROL TARTRATE 15 MCG/2 ML VIAL.NEB NEB SCH ×2 (08:23→19:35)
[2019-08-03] MEDS: predniSONE 20 MG TAB PO SCH ×2 (08:50→21:54)
[2019-08-03] MEDS: SERTRALINE HCL 50 MG TAB PO SCH (08:50)
[2019-08-03] MEDS: LISINOPRIL 20 MG TAB PO SCH ×2 (08:51→21:55)
[2019-08-03] MEDS: TAMSULOSIN 0.4 MG SR CAP PO SCH (08:51)
[2019-08-03] MEDS: APIXABAN 5 MG TABLET PO SCH ×2 (08:51→21:54)
[2019-08-03] MEDS: SOTALOL HCL 80 MG TAB PO SCH ×2 (08:52→21:55)
[2019-08-03] MEDS: GLIMEPIRIDE 2 MG TABLET PO SCH (08:52)
[2019-08-03] MEDS: FUROSEMIDE 40 MG/4 ML VIAL IV SCH ×2 (08:52→16:34)
[2019-08-03] MEDS: GABAPENTIN 300 MG CAP PO SCH ×3 (08:52→21:54)
--- NOTE | 2019-08-03 11:05 | ECHO ---
HEIGHT: 6 ft 1 in WEIGHT: 247 lb 11.2 oz DATE OF STUDY: 08/03/[address]: Charlotte Collins MD 2-DIMENSIONAL: YES M.MODE: YES DOPPLER: YES COLOR FLOW: YES TDS: NO PORTABLE: NO DEFINITY: NO BUBBLE STUDY: NO DIAGNOSIS: INFERIOR VENA CAVA THROMBUS CARDIAC HISTORY: CATHERIZATION: SURGERY: PROSTHETIC VALVE: PACEMAKER: MEASUREMENTS (cm) DIASTOLIC (NORMALS) SYSTOLIC (NORMALS) IVSd 1.2 (0.6-1.2) LA Diam 4.3 (1.9-4.0) LVEF 65% LVIDd 5.2 (3.5-5.7) LVIDs 3.3 (2.0-3.5) %FS 36% LVPWd 1.2 (0.6-1.2) Ao Diam 2.9 (2.0-3.7) 2 DIMENSIONAL ASSESSMENT: RIGHT ATRIUM: NORMAL LEFT ATRIUM: DILATED RIGHT VENTRICLE: NORMAL LEFT VENTRICLE: NORMAL TRICUSPID VALVE: NORMAL MITRAL VALVE: NORMAL PULMONIC VALVE: NORMAL AORTIC VALVE: NORMAL PERICARDIAL EFFUSION: NONE AORTIC ROOT: NORMAL LEFT VENTRICULAR WALL MOTION: NORMAL. DOPPLER/COLOR FLOW: MILD TRICUSPID REGURGITATION. NORMAL RIGHT VENTRICULAR SYSTOLIC PRESSURE. COMMENTS: NORMAL LEFT VENTRICULAR EJECTION FRACTION. DILATED LEFT ATRIUM. MASS NOTED IN INFERIOR VENA CAVA, MINIMAL CHANGE SINCE 05/2019 TECHNOLOGIST: RONI NAM
--- NOTE | 2019-08-03 12:50 | RAD REPORT ---
EXAM DESCRIPTION: CT - CT CHEST,ABD,PELVIS W/WO - 08/03/2019 12:32 pm CLINICAL HISTORY: renal cell cancer, tumor in IVC COMPARISON: Renal ultrasound June 16, CT imaging June 15, CT chest abdomen and pelvis Apri 2017 TECHNIQUE: During dynamic enhancement using 100 milliliters nonionic IV contrast, axial 5 millimeter thick images of the chest, abdomen and pelvis were obtained. Biphasic technique was utilized through the abdomen. Oral contrast was administered. All CT scans are performed using dose optimization technique as appropriate and may include automated exposure control or mA/KV adjustment according to patient size. FINDINGS: A 4 millimeter nodule is present in the anterior right midlung field (image 26/137). The A pril 2018 study had too much motion for definitive comparison. Nodule is too small to for further cristian racterize. No other pulmonary nodule seen. Scarring changes are present. Patient has bilateral small pleural effusions and partial atelectasis of each lower lobe. Granulomatous calcifications are presen t. No pneumothorax or pleural effusion. No chest wall mass or abnormal axillary lymphadenopathy seen . A few nonspecific mediastinal lymph nodes are present. No significant cardiac finding. The liver, spleen and pancreas show no significant findings. Cholecystectomy clips are present. Previously detailed approximately 5.8 centimeter right renal mass is again identified. No change attendant this 4-6 week interval. No additional mass lesion. No hydronephrosis. Perinephric stranding is stabl e. No adrenal abnormalities. No renal vein assessment can be made on this noncontrast study. Urinary bladder is contracted around a Iraheta catheter. No dilated bowel loops or focal ball bowel wall thickening. Moderate stool volume present in the col on. Sigmoid is redundant extending to the upper anterior abdomen. Rectal stool distends the rectum an d distal sigmoid. No bulky lymphadenopathy. Mild stranding around the rectum. No discrete mass. Right hip prosthesis spray artifact limits assessment. Disc and bony degenerative changes are present. No clearly pathologic bone process. IMPRESSION: Approximately 5.8 centimeter right renal mass is again identified. No change attendant the sh ort interval from June 15. Renal vein involvement cannot be assessed on noncontrast imaging. No abdominal or pelvic abnormal lymphadenopathy. No mediastinal or hilar suspicious mass. A 4 mm pulmonary nodule is seen in the right lung field. This cannot be further characterized. The Ap ril 2017 study was not sufficient to establish stability of this nodule.
--- NOTE | 2019-08-03 14:09 | PN ---
Date of Progress Note: 08/03/2019 Subjective: Patient seen and examined. Chart reviewed and case discussed with RN and Dr. Ayoub as well as Dr. Miller. Echocardiogram showed what appears to be tumor likely related to his renal c ell carcinoma. Spoke with patient at length. He does not want any surgery for his renal cell cancer . He was updated on the findings. He has been seen by Oncology in the past. He was supposed to go back to [facility] for further evaluation. However, has not gone in the past 2 months. He is agree able to see Oncology and will be agreeable to chemotherapy, but does not want any surgery. Medications: List reviewed. Physical Examination: Vital Signs: Temperature 97.3, heart rate 89, blood pressure 132/70, respirations 18, O2 100% on 2 L via nasal cannula. General: Awake, alert, oriented x3. Elderly male, obese, slightly ill-appearing. CV: S1, S2. Irregularly irregular. Peripheral pulses present. Respiratory: Moving air well bilaterally. No wheezing or stridor. Gastrointestinal: Abdomen is soft, nontender, nondistended. Positive bowel sounds. Extremities: No clubbing or cyanosis. Patient has 1+ edema of bilateral lower extremities. Neurologic: Cranial nerves 2 through 12 intact grossly. No focal neurological deficits. Speech is normal. Patient has generalized weakness. Laboratory Data: Sodium 144, potassium 4, chloride 106, CO2 of 34, BUN 24, creatinine 1.06, glucose 147, calcium 8.4. WBC 15.8, H and H 9.2 and 27.4, platelets 352, neutrophils 90%. Blood cultures, n o growth to date. Sputum culture is also pending. Echocardiogram shows EF 65%, dilated left atrium, mass noted in inferior vena cava. Minimal change since May. Assessment: 73-year-old male with; 1.Acute on chronic respiratory failure with hypoxia secondary to chronic obstructive pulmonary disea se and congestive heart failure, currently on 2 L. Significantly improved. 2.Acute chronic obstructive pulmonary disease exacerbation. We will continue with steroids and Xope nex as well as ipratropium. Pulmonology on-board. Improving. 3.Acute diastolic heart failure, improved. Continue with diuresis. Monitor I's and O's. Last know n EF is 70%. 4.Recent inferior vena cava thrombus, on Eliquis. Repeat echocardiogram shows mass instead of throm bus. Oncology has been consulted. Patient has been seeing Dr. Ayoub in the past. He was suppo sed to follow up at [facility] 2 months ago, however, has not gone since. Overall, has poor prognos is. 5.Hemoptysis, resolved. 6.Atrial fibrillation, on Eliquis, rate controlled. 7.Anemia of chronic disease. Monitor H and H. Transfuse as needed. 8.Essential hypertension, not well controlled. Hydralazine p.r.n. 9.Renal cell carcinoma, now with mass in the inferior vena cava. Patient has failed immunotherapy. We will obtain CT chest, abdomen, and pelvis for staging. 10.Coronary artery disease, [place] artery and [place] heart without angina. Stable. 11.Diabetes mellitus type 2. Continue sliding scale insulin. Monitor Accu-Cheks. Insulin requirin g. 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 We will continue with fall precautions. Patient is transfer to wheelchair only . 13.Gastroesophageal reflux disease without esophagitis. Continue PPI. 14.Benign prostatic hypertrophy. We will continue tamsulosin. 15.Deep vein thrombosis prophylaxis. Addressed with Eliquis. Overall, poor prognosis. Oncology co nsultation. Follow up on CT scan. /PERLA Voice ID: [id number] Report ID: [id number]
[2019-08-03] MEDS: MELATONIN 5 MG TABLET PO SCH (21:54)
[2019-08-03] MEDS: ATORVASTATIN 10 MG TAB PO SCH (21:54)
[2019-08-04] MEDS: IPRATROPIUM BROM 0.5MG/2.5ML NEB SCH ×4 (01:35→20:00)
[2019-08-04 05:21] VITALS: BMI 32.7
[2019-08-04 05:39] LABS: Potassium 3.8 mmol/L (3.5-5.1)
[2019-08-04 05:46] LABS: Basophils % 0.1 % (0-1.3); Lymphocytes % 7.6 % (15.3-44.8); MPV 8.1 fL (7.6-11.3); RBC Red Blood Cell Count 3.69 M/uL (4.33-5.43)
[2019-08-04] MEDS ORDERED: POTASSIUM CL SA 10 MEQ TAB PO ONE (07:30)
[2019-08-04] MEDS: INSULIN -REGULAR HUMAN 50 UNIT/0.5 ML ML SQ SCH ×4 (07:30→22:06)
[2019-08-04] MEDS: LISINOPRIL 20 MG TAB PO SCH ×2 (08:31→22:03)
[2019-08-04] MEDS: GLIMEPIRIDE 2 MG TABLET PO SCH (08:31)
[2019-08-04] MEDS: SERTRALINE HCL 50 MG TAB PO SCH (08:31)
[2019-08-04] MEDS: TAMSULOSIN 0.4 MG SR CAP PO SCH (08:31)
[2019-08-04] MEDS: predniSONE 20 MG TAB PO SCH ×2 (08:32→22:03)
[2019-08-04] MEDS: FUROSEMIDE 40 MG/4 ML VIAL IV SCH ×2 (08:32→16:59)
[2019-08-04] MEDS: APIXABAN 5 MG TABLET PO SCH ×2 (08:32→22:03)
[2019-08-04] MEDS: SOTALOL HCL 80 MG TAB PO SCH ×2 (08:32→22:03)
[2019-08-04] MEDS: GABAPENTIN 300 MG CAP PO SCH ×3 (08:35→22:03)
[2019-08-04] MEDS: ARFORMOTEROL TARTRATE 15 MCG/2 ML VIAL.NEB NEB SCH ×2 (08:57→20:00)
--- NOTE | 2019-08-04 14:14 | P.PN ---
Subjective Date of Service: 08/09/19 Chief Complaint: Shortness of breath Subjective: No new changes Patient is tolerating 2 L of oxygen by nasal cannula. He appears awake and oriented to person and time. He reports bowel movement this morning. He has been afebrile. He denies any abdominal pain. Abdomen looks moderately distended. Physical Examination - Vital Signs Temperature: 97.4 F Blood Pressure: 130/82 Pulse: 79 Respirations: 18 Pulse Ox (%): 99 - Physical Exam General: In no apparent distress, Oriented x2 HEENT: Mucous membr. moist/pink Neck: Supple Respiratory: Clear to auscultation bilaterally, Normal air movement Cardiovascular: No edema, Regular rate/rhythm, Normal S1 S2 Gastrointestinal: Normal bowel sounds, No tenderness, Distended Musculoskeletal: No swelling, No erythema Integumentary: No rashes Neurological: Normal speech, Other (Nonfocal) Urinary: Iraheta catheter Assessment And Plan - Current Problems (Diagnosis) (1) Acute and chronic respiratory failure with hypoxia Status: Acute (2) Acute diastolic heart failure Status: Acute (3) COPD exacerbation Status: Acute (4) Renal cell carcinoma Status: Acute (5) DVT (deep venous thrombosis) Status: Acute (6) Atrial fibrillation Onset Date: 06/04/17 Status: Chronic Qualifiers: Atrial fibrillation type: chronic (7) Chronic anticoagulation Onset Date: 05/21/17 Status: Chronic (8) Adynamic ileus Status: Acute - Plan He is tolerating oxygen by nasal cannula. Patient reports he uses oxygen by nasal cannula on as needed basis at home. Continue with steroids, Xopenex and ipratropium. Pulmonology is following. Continue with diuresis. Monitor I's and O's. Patient is on Eliquis for IVC thrombosis and atrial fibrillation. He has a history of GI bleed in the past. Monitor for closely for active bleeding. Monitor H&H. Patient is reported to have failed immunotherapy. He has declined further cancer treatment in the past. Hospice consult to assist with goals of care discussion Oncology consult is also pending. Serial abdominal examination. Optimize electrolytes Overall poor prognosis.
[2019-08-04] MEDS: MELATONIN 5 MG TABLET PO SCH (21:00)
[2019-08-04] MEDS: ATORVASTATIN 10 MG TAB PO SCH (22:03)
[2019-08-05] MEDS: IPRATROPIUM BROM 0.5MG/2.5ML NEB SCH ×3 (02:00→14:49)
[2019-08-05 04:34] LABS: Basophils % 0.1 % (0-1.3); Hematocrit 28.1 % (39.6-49.0); Lymphocytes % 7.8 % (15.3-44.8); RBC Red Blood Cell Count 3.85 M/uL (4.33-5.43)
[2019-08-05 04:55] LABS: Potassium 3.8 mmol/L (3.5-5.1)
[2019-08-05] MEDS ORDERED: POTASSIUM CL SA 10 MEQ TAB PO ONE ×2 (06:30→09:00)
[2019-08-05] MEDS: INSULIN -REGULAR HUMAN 50 UNIT/0.5 ML ML SQ SCH ×4 (07:30→20:07)
[2019-08-05] MEDS: TAMSULOSIN 0.4 MG SR CAP PO SCH (08:50)
[2019-08-05] MEDS: SOTALOL HCL 80 MG TAB PO SCH ×2 (08:50→20:17)
[2019-08-05] MEDS: predniSONE 20 MG TAB PO SCH ×2 (08:50→20:18)
[2019-08-05] MEDS: GABAPENTIN 300 MG CAP PO SCH ×3 (08:50→20:18)
[2019-08-05] MEDS: LISINOPRIL 20 MG TAB PO SCH ×2 (08:51→20:17)
[2019-08-05] MEDS: APIXABAN 5 MG TABLET PO SCH ×2 (08:51→20:17)
[2019-08-05] MEDS: SERTRALINE HCL 50 MG TAB PO SCH (08:51)
[2019-08-05] MEDS: FUROSEMIDE 40 MG/4 ML VIAL IV SCH ×2 (08:51→16:38)
[2019-08-05] MEDS: GLIMEPIRIDE 2 MG TABLET PO SCH (08:51)
[2019-08-05] MEDS: ARFORMOTEROL TARTRATE 15 MCG/2 ML VIAL.NEB NEB SCH (09:13)
--- NOTE | 2019-08-05 12:41 | P.DS ---
Admission Date: 08/01/19 Discharge Date: 08/05/19 Disposition: TRANSFER TO LONG-TERM Discharge Condition: FAIR Reason for Admission: Shortness of breath - Problems (1) Acute and chronic respiratory failure with hypoxia Current Visit: Yes Status: Acute (2) Acute diastolic heart failure Current Visit: Yes Status: Acute (3) COPD exacerbation Current Visit: Yes Status: Acute (4) Renal cell carcinoma Current Visit: Yes Status: Acute (5) DVT (deep venous thrombosis) Current Visit: Yes Status: Acute (6) Atrial fibrillation Onset Date: 06/04/17 Current Visit: No Status: Chronic Qualifiers: Atrial fibrillation type: chronic (7) Chronic anticoagulation Onset Date: 05/21/17 Current Visit: No Status: Chronic Brief History of Present Illness: 73-year-old gentleman with a past medical history renal cell carcinoma, thrombus in the inferior vena cava was transferred from the residential to the emergency department due to shortness of breath. Patient noted to desaturate to the 80s on arrival to the ED, CPAP was placed on him but patient could not tolerate it. Chest ray in the ED demonstrated volume overload. Patient was seen in atrial fibrillation with RVR. He was admitted for further management. Hospital Course: Patient was admitted to the medical floor and treated with IV Lasix, bronchodilators and steroids. He was seen by pulmonary. He was treated for acute diastolic heart failure. Patient is on sotalol which was continued during the hospital stay. His heart rate was controlled on the sotalol. His respiratory symptoms improved with treatment. Oxygen was weaned down to his baseline of 2 L by nasal cannula. Patient had transient hemoptysis which resolved. Eliquis was continued without any further bleeding issues. His hemoglobin was stable at 9. His abdomen became moderately distended. KUB demonstrated adynamic ileus. Patient had multiple bowel moved. Today his abdomen is soft and benign and non tender. He remained awake and oriented, and communicates meaningfully. Regarding the renal cell carcinoma. Patient has not been able to undergo immunotherapy due to intercurrent illness. I discussed hospice but patient and declined to be on hospice at the moment. They plan to follow with her oncologist at [facility] for goals of care discussion. Patient has clinically improved and deemed stable for discharge. Vital Signs/Physical Exam: Temp Pulse Resp BP Pulse Ox 97.7 F 82 18 114/63 98 08/05/19 12:00 08/05/19 12:00 08/05/19 12:00 08/05/19 12:00 08/05/19 12:00 General: Alert, In no apparent distress HEENT: Mucous membr. moist/pink Neck: Supple, JVD not distended Respiratory: Clear to auscultation bilaterally, Normal air movement Cardiovascular: No edema, No murmurs, Irregular heart rate/rhythm Gastrointestinal: Normal bowel sounds, Soft and benign, No tenderness Musculoskeletal: No swelling, No erythema Integumentary: No rashes Laboratory Data at Discharge: WBC 12.6 K/uL (4.3-10.9) H 08/05/19 04:15 Hgb 9.1 g/dL (13.6-17.9) L 08/05/19 04:15 Hct 28.1 % (39.6-49.0) L 08/05/19 04:15 Plt Count 291 K/uL (152-406) 08/05/19 04:15 PT 27.3 SECONDS (9.5-12.5) H 08/01/19 13:43 INR 2.39 08/01/19 13:43 APTT 59.3 SECONDS (24.3-36.9) H 08/01/19 13:43 Sodium 139 mmol/L (136-145) 08/05/19 04:15 Potassium 3.8 mmol/L (3.5-5.1) 08/05/19 04:15 BUN 29 mg/dL (7-18) H 08/05/19 04:15 Creatinine 1.07 mg/dL (0.55-1.3) 08/05/19 04:15 Glucose 165 mg/dL (74-106) H 08/05/19 04:15 Magnesium 1.9 mg/dL (1.8-2.4) 08/01/19 12:50 Home Medications: Acetaminophen [Acetaminophen ER] 650 mg PO Q6HP PRN 08/01/19 Apixaban [Eliquis] 5 mg PO BID 08/01/19 Atorvastatin Calcium [Lipitor*] 10 mg PO BEDTIME 08/01/19 Carvedilol [Coreg*] 12.5 mg PO BID 08/01/19 Gabapentin 300 mg PO TID 08/01/19 Glimepiride [Amaryl*] 2 mg PO DAILY 08/01/19 Ipratropium/Albuterol Sulfate [Iprat-Albut 0.5-3(2.5) mg/3 ml] 3 ml NEB Q4HP PRN 08/01/19 Lisinopril [Prinivil*] 20 mg PO BID 08/01/19 Melatonin 5 mg PO BEDTIME 08/01/19 Ondansetron [Zofran (Odt)*] 4 mg PO Q8HP 08/01/19 Ranolazine [Ranolazine ER] 1,000 mg PO BID 08/01/19 Sertraline HCl 50 mg PO DAILY 08/01/19 Sotalol HCl [Betapace*] 80 mg PO BID 08/01/19 Tamsulosin HCl 0.4 mg PO DAILY 08/01/19 Fluticasone/Umeclidin/Vilanter [Trelegy Ellipta 100-62.5-25] 1 each IH DAILY #1 blst.w.dev 08/02/19 Furosemide [Lasix*] 40 mg PO DAILY #30 tab 08/03/19 predniSONE [Deltasone] 10 mg PO BID #14 tab 08/03/19 New Medications: Fluticasone/Umeclidin/Vilanter [Trelegy Ellipta 100-62.5-25] 1 each IH DAILY #1 blst.w.dev Furosemide [Lasix*] 40 mg PO DAILY #30 tab predniSONE [Deltasone] 10 mg PO BID #14 tab Patient Discharge Instructions: f/up w PCP in 2-3 days. f/up w pulmonolgist Dr. Milner in 2 weeks. Return to ER for worsening condition Diet: ADA (1500ml fluid restriction) Activity: Fall precautions
[2019-08-05 16:20] VITALS: O2SAT 98
[2019-08-05] MEDS: MELATONIN 5 MG TABLET PO SCH (20:18)
[2019-08-05] MEDS: ATORVASTATIN 10 MG TAB PO SCH (20:18)
[2019-08-09 16:57] VITALS: BP 130/82; TEMP 97.4
--- OUTSIDE RECORDS SUMMARY | 2019-08-09 20:03 | XMS REPORT ---
:1945 [facility] Organization [facility] Address [address] [place] [address] Care Team Providers Name Role Phone LEIDY [...] (BEAKER) (test 166 mg/dL 70-110 TESTED AT [facility] [address] [facility] mmac=2144) [facility] [address] ANG, NON-TUNNELED CATH/PICC >5 Y.O. WITH [id number] 14:38:00Reason for exam:->need for IV accessFINAL REPORT Right upper extremity PICC insertion. History: Needfor long-term IV therapy. [employer] Salesperson: Brandon Devries MD. Bookstore Clerk: Char Portillo (fellow). Modality: Sonography and fluoroscopy. [...] needle into the right atrium. A 5 [place] peel-away sheath was placed. The 5 [place] double-lumen PICC line was measured and cut [...] MDReport Verified Date/Time: 01/19/2019 14:38:36 Reading Location: [place] [address] Angio Body Reading Room [id number] 07:02:00 Test Item Value Reference Range Comments MAGNESIUM (BEAKER) (test 1.8 mg/dL 1.6-2.6 Specimen slightly hemolyzed zlpe=478) BASIC METABOLIC [id number] 07:02:00 Test Item Value Reference Range Comments SODIUM (BEAKER) (test 141 meq/L 136-145 slah=764) POTASSIUM (BEAKER) (test 3.7 meq/L 3.5-5.1 Specimen slightly tgit=762) hemolyzed CHLORIDE (BEAKER) (test 114 meq/L 98-107 ibzp=311) CO2 (BEAKER) (test 21 meq/L 22-29 xppa=641) BLOOD UREA NITROGEN 17 mg/dL 7-21 (BEAKER) (test epyz=511) CREATININE (BEAKER) (test 1.09 mg/dL 0.57-1.25 Specimen slightly oewm=708) hemolyzed GLUCOSE RANDOM (BEAKER) 116 mg/dL 70-105 (test uqvn=986) CALCIUM (BEAKER) (test 8.8 mg/dL 8.4-10.2 idve=371) EGFR (BEAKER) (test 66 mL/min/1.73 sq m ESTIMATED GFR IS NOT vldb=0819) ACCURATE CREATININE CLEARANCE IN PREDICTING GLOMERULAR FILTRATION RATE. ESTIMATED GFR IS NOT APPLICABLE FOR DIALYSIS PATIENTS. POCT-GLUCOSE [id number] 06:28:00 Test Item Value Reference Range Comments POC-GLUCOSE METER (BEAKER) 121 mg/dL 70-110 TESTED AT [address] (test hqyf=5938) [facility] [address] POCT-GLUCOSE [id number] 21:25:00 Test Item Value Reference Range Comments POC-GLUCOSE METER (BEAKER) 163 mg/dL 70-110 TESTED AT [address] (test qvrw=7552) [place] [id number] POCT-GLUCOSE [id number] 17:12:00 Test Item Value Reference Range Comments POC-GLUCOSE METER (BEAKER) 191 mg/dL 70-110 TESTED AT [address] (test sadm=5377) [facility] [address] POCT-GLUCOSE [id number] 13:03:00 Test Item Value Reference Range Comments POC-GLUCOSE METER (BEAKER) 211 mg/dL 70-110 TESTED AT [address] (test rjyc=8946) [facility] [address] POCT-GLUCOSE [id number] 08:47:00 Test Item Value Reference Range Comments POC-GLUCOSE METER (BEAKER) 124 mg/dL 70-110 TESTED AT [address] (test olyh=5290) [facility] [address] POCT-GLUCOSE [id number] 21:04:00 Test Item Value Reference Range Comments POC-GLUCOSE METER (BEAKER) 213 mg/dL 70-110 TESTED AT [address] (test gsoh=4693) [facility] [address] POCT-GLUCOSE [id number] 17:36:00 Test Item Value Reference Range Comments POC-GLUCOSE METER (BEAKER) 174 mg/dL 70-110 TESTED AT [address] (test ndjq=5407) [facility] [address] POCT-GLUCOSE [id number] 11:59:00 Test Item Value Reference Range Comments POC-GLUCOSE METER (BEAKER) 175 mg/dL 70-110 TESTED AT [place] [id number] [facility] (test tqrz=0469) [facility] [address] POCT-GLUCOSE [id number] 08:13:00 Test Item Value Reference Range Comments POC-GLUCOSE METER (BEAKER) 109 mg/dL 70-110 TESTED AT [place] [id number] [facility] (test sgos=4880) [facility] [address] [id number] 07:54:00 Test Item Value Reference Range Comments PHOSPHORUS (BEAKER) (test dksz=300) 3.1 mg/dL 2.3-4.7 [id number] 07:54:00 Test Item Value Reference Range Comments MAGNESIUM (BEAKER) (test apqb=039) 1.7 mg/dL 1.6-2.6 BASIC METABOLIC [id number] 07:54:00 Test Item Value Reference Range Comments SODIUM (BEAKER) (test 140 meq/L 136-145 gdme=283) POTASSIUM (BEAKER) (test 3.7 meq/L 3.5-5.1 nyyn=405) CHLORIDE (BEAKER) (test 112 meq/L 98-107 eagl=818) CO2 (BEAKER) (test 20 meq/L 22-29 cjtw=103) BLOOD UREA NITROGEN 22 mg/dL 7-21 (BEAKER) (test brsg=993) CREATININE (BEAKER) (test 1.20 mg/dL 0.57-1.25 ldzf=447) GLUCOSE RANDOM (BEAKER) 85 mg/dL 70-105 (test ofgx=122) CALCIUM (BEAKER) (test 8.9 mg/dL 8.4-10.2 raqa=971) EGFR (BEAKER) (test 59 mL/min/1.73 sq m ESTIMATED GFR IS NOT pjbk=9249) ACCURATE CREATININE CLEARANCE IN PREDICTING GLOMERULAR FILTRATION RATE. ESTIMATED GFR IS NOT APPLICABLE FOR DIALYSIS PATIENTS. CALCIUM, [id number] 06:26:00 Test Item Value Reference Range Comments CALCIUM IONIZED (BEAKER) (test brpj=816) 1.08 mmol/L 1.12-1.27 PH, BLOOD (BEAKER) (test nool=1227) 7.46 CBC W/PLT COUNT & AUTO [id number] 05:04:00 Test Item Value Reference Range Comments WHITE BLOOD CELL COUNT (BEAKER) (test xzno=084) 8.0 K/ L 3.5-10.5 RED BLOOD CELL COUNT (BEAKER) (test eqxx=485) 3.63 M/ L 4.63-6.08 HEMOGLOBIN (BEAKER) (test lvng=910) 9.3 GM/DL 13.7-17.5 HEMATOCRIT (BEAKER) (test eyam=629) 31.1 % 40.1-51.0 MEAN CORPUSCULAR VOLUME (BEAKER) (test fpeg=748) 85.7 fL 79.0-92.2 MEAN CORPUSCULAR HEMOGLOBIN (BEAKER) (test 25.6 pg 25.7-32.2 zusj=069) MEAN CORPUSCULAR HEMOGLOBIN CONC (BEAKER) (test 29.9 GM/DL 32.3-36.5 llnp=500) RED CELL DISTRIBUTION WIDTH (BEAKER) (test 17.6 % 11.6-14.4 lipj=514) PLATELET COUNT (BEAKER) (test sbto=963) 188 K/CU MM 150-450 MEAN PLATELET VOLUME (BEAKER) (test xdyn=436) 9.8 fL 9.4-12.4 NUCLEATED RED BLOOD CELLS (BEAKER) (test 0 /100 WBC 0-0 enss=878) NEUTROPHILS RELATIVE PERCENT (BEAKER) (test 59 % ijpz=712) LYMPHOCYTES RELATIVE PERCENT (BEAKER) (test 30 % ozux=578) MONOCYTES RELATIVE PERCENT (BEAKER) (test 7 % gmmp=896) EOSINOPHILS RELATIVE PERCENT (BEAKER) (test 3 % lnpk=831) BASOPHILS RELATIVE PERCENT (BEAKER) (test 1 % qzat=414) NEUTROPHILS ABSOLUTE COUNT (BEAKER) (test 4.67 K/ L 1.78-5.38 jrcr=969) LYMPHOCYTES ABSOLUTE COUNT (BEAKER) (test 2.37 K/ L 1.32-3.57 aydj=526) MONOCYTES ABSOLUTE COUNT (BEAKER) (test 0.55 K/ L 0.30-0.82 szjs=362) EOSINOPHILS ABSOLUTE COUNT (BEAKER) (test 0.27 K/ L 0.04-0.54 tkbb=178) BASOPHILS ABSOLUTE COUNT (BEAKER) (test 0.06 K/ L 0.01-0.08 uehu=612) IMMATURE GRANULOCYTES-RELATIVE PERCENT (BEAKER) 1 % 0-1 (test zvrx=8920) POCT-GLUCOSE [id number] 21:25:00 Test Item Value Reference Range Comments POC-GLUCOSE METER (BEAKER) 187 mg/dL 70-110 TESTED AT [address] (test pcpc=1514) [facility] [address] POCT-GLUCOSE [id number] 18:09:00 Test Item Value Reference Range Comments POC-GLUCOSE METER (BEAKER) 182 mg/dL 70-110 TESTED AT [address] (test csws=4800) [facility] [address] POCT-GLUCOSE [id number] 13:07:00 Test Item Value Reference Range Comments POC-GLUCOSE METER (BEAKER) 130 mg/dL 70-110 TESTED AT [address] (test tbhh=8402) [facility] [address] PROTHROMBIN [id number] 07:45:00 Test Item Value Reference Range Comments PROTIME (BEAKER) (test xuju=198) 16.0 seconds 11.7-14.7 INR (BEAKER) (test qejx=839) 1.3 <=5.9 RECOMMENDED COUMADIN/WARFARIN INR THERAPY RANGESSTANDARD DOSE: 2.0 - 3.0 Includes: PROPHYLAXIS forvenous thrombosis, systemic embolization; TREATMENT for venous thrombosis and/or pulmonary embolus.HIGH RISK: Target INR is 2.5-3.5 for patients with mechanical heart valves.POCT-GLUCOSE [id number] 06:24:00 Test Item Value Reference Range Comments POC-GLUCOSE METER (BEAKER) 105 mg/dL 70-110 TESTED AT [address] (test kogt=1614) [facility] [address] POCT-GLUCOSE [id number] 21:22:00 Test Item Value Reference Range Comments POC-GLUCOSE METER (BEAKER) 149 mg/dL 70-110 TESTED AT [address] (test lrvn=3417) [facility] [address] POCT-GLUCOSE [id number] 17:11:00 Test Item Value Reference Range Comments POC-GLUCOSE METER (BEAKER) 147 mg/dL 70-110 TESTED AT [address] (test yoyv=5851) [facility] [address] POCT-GLUCOSE [id number] 12:59:00 Test Item Value Reference Range Comments POC-GLUCOSE METER (BEAKER) 144 mg/dL 70-110 TESTED AT [address] (test lyav=0522) [place] [id number] POCT-GLUCOSE [id number] 09:26:00 Test Item Value Reference Range Comments POC-GLUCOSE METER (BEAKER) 135 mg/dL 70-110 TESTED AT [address] (test fdeb=8885) [place] [address] BASIC METABOLIC [id number] 04:09:00 Test Item Value Reference Range Comments SODIUM (BEAKER) (test 140 meq/L 136-145 fpya=221) POTASSIUM (BEAKER) (test 3.5 meq/L 3.5-5.1 mpwx=255) CHLORIDE (BEAKER) (test 109 meq/L 98-107 dirf=221) CO2 (BEAKER) (test 22 meq/L 22-29 buvs=004) BLOOD UREA NITROGEN 23 mg/dL 7-21 (BEAKER) (test hdmn=333) CREATININE (BEAKER) (test 1.31 mg/dL 0.57-1.25 vcpu=021) GLUCOSE RANDOM (BEAKER) 103 mg/dL 70-105 (test ybza=661) CALCIUM (BEAKER) (test 9.0 mg/dL 8.4-10.2 maqn=784) EGFR (BEAKER) (test 53 mL/min/1.73 sq m ESTIMATED GFR IS NOT jyyz=8006) ACCURATE CREATININE CLEARANCE IN PREDICTING GLOMERULAR FILTRATION RATE. ESTIMATED GFR IS NOT APPLICABLE FOR DIALYSIS PATIENTS. POCT-GLUCOSE [id number] 21:24:00 Test Item Value Reference Range Comments POC-GLUCOSE METER (BEAKER) 166 mg/dL 70-110 TESTED AT [address] (test jxha=9530) [place] [id number] POCT-GLUCOSE [id number] 17:33:00 Test Item Value Reference Range Comments POC-GLUCOSE METER (BEAKER) 195 mg/dL 70-110 TESTED AT [address] (test kyzn=1777) [place] [address] POCT-GLUCOSE [id number] 13:44:00 Test Item Value Reference Range Comments POC-GLUCOSE METER (BEAKER) 213 mg/dL 70-110 TESTED AT [address] (test yibj=5781) [place] [id number] POCT-GLUCOSE [id number] 09:29:00 Test Item Value Reference Range Comments POC-GLUCOSE METER (BEAKER) 150 mg/dL 70-110 TESTED AT [facility] [address] [facility] (test xnyq=6298) [facility] [address] [id number] 05:59:00 Test Item Value Reference Range Comments MAGNESIUM (BEAKER) (test 1.7 mg/dL 1.6-2.6 Specimen slightly hemolyzed xkfq=770) [id number] 05:59:00 Test Item Value Reference Range Comments PHOSPHORUS (BEAKER) (test 3.2 mg/dL 2.3-4.7 Specimen slightly hemolyzed rubq=455) BASIC METABOLIC [id number] 05:59:00 Test Item Value Reference Range Comments SODIUM (BEAKER) (test 142 meq/L 136-145 bige=763) POTASSIUM (BEAKER) (test 3.5 meq/L 3.5-5.1 Specimen slightly kypm=360) hemolyzed CHLORIDE (BEAKER) (test 111 meq/L 98-107 duxy=636) CO2 (BEAKER) (test 22 meq/L 22-29 lbsz=009) BLOOD UREA NITROGEN 24 mg/dL 7-21 (BEAKER) (test becn=678) CREATININE (BEAKER) (test 1.32 mg/dL 0.57-1.25 Specimen slightly yugb=773) hemolyzed GLUCOSE RANDOM (BEAKER) 122 mg/dL 70-105 (test ocsb=393) CALCIUM (BEAKER) (test 9.0 mg/dL 8.4-10.2 yrxk=518) EGFR (BEAKER) (test 53 mL/min/1.73 sq m ESTIMATED GFR IS NOT egbn=3606) ACCURATE CREATININE CLEARANCE IN PREDICTING GLOMERULAR FILTRATION RATE. ESTIMATED GFR IS NOT APPLICABLE FOR DIALYSIS PATIENTS. B-TYPE NATRIURETIC FACTOR (BNP)2019-01-14 05:58:00 Test Item Value Reference Range Comments B-TYPE NATRIURETIC PEPTIDE (BEAKER) (test 298 pg/mL 0-100 ftxq=654) CBC W/PLT COUNT & AUTO [id number] 05:35:00 Test Item Value Reference Range Comments WHITE BLOOD CELL COUNT (BEAKER) (test cfps=980) 10.1 K/ L 3.5-10.5 RED BLOOD CELL COUNT (BEAKER) (test tdqh=801) 3.57 M/ L 4.63-6.08 HEMOGLOBIN (BEAKER) (test rzrs=681) 9.3 GM/DL 13.7-17.5 HEMATOCRIT (BEAKER) (test yjdf=946) 30.1 % 40.1-51.0 MEAN CORPUSCULAR VOLUME (BEAKER) (test bfvr=881) 84.3 fL 79.0-92.2 MEAN CORPUSCULAR HEMOGLOBIN (BEAKER) (test 26.1 pg 25.7-32.2 bazz=173) MEAN CORPUSCULAR HEMOGLOBIN CONC (BEAKER) (test 30.9 GM/DL 32.3-36.5 qnii=241) RED CELL DISTRIBUTION WIDTH (BEAKER) (test 17.6 % 11.6-14.4 gouu=931) PLATELET COUNT (BEAKER) (test kdvp=789) 187 K/CU MM 150-450 MEAN PLATELET VOLUME (BEAKER) (test ufhf=063) 9.3 fL 9.4-12.4 NUCLEATED RED BLOOD CELLS (BEAKER) (test 0 /100 WBC 0-0 khwt=497) NEUTROPHILS RELATIVE PERCENT (BEAKER) (test 69 % zxnu=961) LYMPHOCYTES RELATIVE PERCENT (BEAKER) (test 23 % dxpd=101) MONOCYTES RELATIVE PERCENT (BEAKER) (test 6 % swfw=508) EOSINOPHILS RELATIVE PERCENT (BEAKER) (test 2 % yvff=852) BASOPHILS RELATIVE PERCENT (BEAKER) (test 0 % pwac=416) NEUTROPHILS ABSOLUTE COUNT (BEAKER) (test 6.93 K/ L 1.78-5.38 rajr=148) LYMPHOCYTES ABSOLUTE COUNT (BEAKER) (test 2.33 K/ L 1.32-3.57 cvvm=064) MONOCYTES ABSOLUTE COUNT (BEAKER) (test 0.56 K/ L 0.30-0.82 kcry=051) EOSINOPHILS ABSOLUTE COUNT (BEAKER) (test 0.23 K/ L 0.04-0.54 cktp=729) BASOPHILS ABSOLUTE COUNT (BEAKER) (test 0.03 K/ L 0.01-0.08 ovyl=699) IMMATURE GRANULOCYTES-RELATIVE PERCENT (BEAKER) 0 % 0-1 (test wuzi=8329) POCT-GLUCOSE [id number] 21:05:00 Test Item Value Reference Range Comments POC-GLUCOSE METER (BEAKER) 168 mg/dL 70-110 TESTED AT [address] (test dkef=9266) [facility] [address] POCT-GLUCOSE [id number] 18:28:00 Test Item Value Reference Range Comments POC-GLUCOSE METER (BEAKER) 220 mg/dL 70-110 TESTED AT [address] (test jpex=0114) [facility] [address] POCT-GLUCOSE [id number] 13:39:00 Test Item Value Reference Range Comments POC-GLUCOSE METER (BEAKER) 262 mg/dL 70-110 TESTED AT [address] (test poyx=7015) [facility] [address] POCT-GLUCOSE [id number] 09:18:00 Test Item Value Reference Range Comments POC-GLUCOSE METER (BEAKER) 135 mg/dL 70-110 TESTED AT [address] (test zpne=3059) [facility] [address] OSMOLALITY, [id number] 07:19:00 Test Item Value Reference Range Comments OSMOLALITY URINE (BEAKER) 686 mOsm/kg 40-1,400 Performed at [facility] (test zlpy=982) Laboratories CALCIUM, [id number] 06:54:00 Test Item Value Reference Range Comments CALCIUM IONIZED (BEAKER) (test eatd=644) 1.01 mmol/L 1.12-1.27 PH, BLOOD (BEAKER) (test odxt=7617) 7.50 [id number] 06:20:00 Test Item Value Reference Range Comments PHOSPHORUS (BEAKER) (test vmst=042) 3.2 mg/dL 2.3-4.7 [id number] 06:20:00 Test Item Value Reference Range Comments MAGNESIUM (BEAKER) (test mhxa=814) 1.7 mg/dL 1.6-2.6 BASIC METABOLIC [id number] 06:20:00 Test Item Value Reference Range Comments SODIUM (BEAKER) (test 140 meq/L 136-145 qjwv=340) POTASSIUM (BEAKER) (test 3.5 meq/L 3.5-5.1 kfew=064) CHLORIDE (BEAKER) (test 109 meq/L 98-107 tuym=684) CO2 (BEAKER) (test 24 meq/L 22-29 ezin=829) BLOOD UREA NITROGEN 27 mg/dL 7-21 (BEAKER) (test ucfs=614) CREATININE (BEAKER) (test 1.35 mg/dL 0.57-1.25 wpxm=794) GLUCOSE RANDOM (BEAKER) 135 mg/dL 70-105 (test gxwo=572) CALCIUM (BEAKER) (test 9.1 mg/dL 8.4-10.2 xcwb=416) EGFR (BEAKER) (test 52 mL/min/1.73 sq m ESTIMATED GFR IS NOT tixg=5793) ACCURATE CREATININE CLEARANCE IN PREDICTING GLOMERULAR FILTRATION RATE. ESTIMATED GFR IS NOT APPLICABLE FOR DIALYSIS PATIENTS. CBC W/PLT COUNT & AUTO [id number] 05:44:00 Test Item Value Reference Range Comments WHITE BLOOD CELL COUNT (BEAKER) (test rlgo=709) 7.2 K/ L 3.5-10.5 RED BLOOD CELL COUNT (BEAKER) (test bdjg=956) 3.47 M/ L 4.63-6.08 HEMOGLOBIN (BEAKER) (test fagq=121) 9.0 GM/DL 13.7-17.5 HEMATOCRIT (BEAKER) (test brvb=597) 29.2 % 40.1-51.0 MEAN CORPUSCULAR VOLUME (BEAKER) (test zres=459) 84.1 fL 79.0-92.2 MEAN CORPUSCULAR HEMOGLOBIN (BEAKER) (test 25.9 pg 25.7-32.2 usjx=780) MEAN CORPUSCULAR HEMOGLOBIN CONC (BEAKER) (test 30.8 GM/DL 32.3-36.5 jazu=694) RED CELL DISTRIBUTION WIDTH (BEAKER) (test 18.0 % 11.6-14.4 llfx=136) PLATELET COUNT (BEAKER) (test avwi=411) 195 K/CU MM 150-450 MEAN PLATELET VOLUME (BEAKER) (test spbf=565) 9.1 fL 9.4-12.4 NUCLEATED RED BLOOD CELLS (BEAKER) (test 0 /100 WBC 0-0 kxai=106) NEUTROPHILS RELATIVE PERCENT (BEAKER) (test 53 % ofrd=436) LYMPHOCYTES RELATIVE PERCENT (BEAKER) (test 35 % iqzp=762) MONOCYTES RELATIVE PERCENT (BEAKER) (test 8 % zgob=996) EOSINOPHILS RELATIVE PERCENT (BEAKER) (test 4 % hydn=642) BASOPHILS RELATIVE PERCENT (BEAKER) (test 1 % tfkr=710) NEUTROPHILS ABSOLUTE COUNT (BEAKER) (test 3.80 K/ L 1.78-5.38 qeie=093) LYMPHOCYTES ABSOLUTE COUNT (BEAKER) (test 2.52 K/ L 1.32-3.57 aqhb=511) MONOCYTES ABSOLUTE COUNT (BEAKER) (test 0.55 K/ L 0.30-0.82 jiyd=908) EOSINOPHILS ABSOLUTE COUNT (BEAKER) (test 0.30 K/ L 0.04-0.54 nbcn=135) BASOPHILS ABSOLUTE COUNT (BEAKER) (test 0.04 K/ L 0.01-0.08 ypkf=737) IMMATURE GRANULOCYTES-RELATIVE PERCENT (BEAKER) 0 % 0-1 (test ljoi=3984) MR, BRAIN, [id number] 04:02:00FINAL REPORT MR, BRAIN , WITH \T\ [...] MDReport Verified Date/Time: 01/13/2019 04:02:20 Reading Location: [address] Neuro Reading Room POCT-GLUCOSE [id number] 22:05:00 Test Item Value Reference Range Comments POC-GLUCOSE METER (BEAKER) 187 mg/dL 70-110 TESTED AT [facility] [address] [facility] (test hrcw=4002) [facility] [address] POCT-GLUCOSE [id number] 18:17:00 Test Item Value Reference Range Comments POC-GLUCOSE METER (BEAKER) 137 mg/dL 70-110 TESTED AT [address] (test gfve=1922) [facility] [address] POCT-GLUCOSE [id number] 13:08:00 Test Item Value Reference Range Comments POC-GLUCOSE METER (BEAKER) 221 mg/dL 70-110 TESTED AT [address] (test uuae=8362) [facility] [address] CT, CHEST, WITHOUT [id number] 13:03:00FINAL REPORT CT of the Chest dated [...] Verified Date/Time: 01/12/2019 13:03: 39 Reading Location: [facility] B1 C013Y CT Body Reading Room POCT-GLUCOSE [id number] 07:53:00 Test Item Value Reference Range Comments POC-GLUCOSE METER (BEAKER) 156 mg/dL 70-110 TESTED AT [address] (test zjdc=5006) [facility] [address] BASIC METABOLIC [id number] 03:16:00 Test Item Value Reference Range Comments SODIUM (BEAKER) (test 138 meq/L 136-145 iqif=667) POTASSIUM (BEAKER) (test 3.6 meq/L 3.5-5.1 nbgb=058) CHLORIDE (BEAKER) (test 106 meq/L 98-107 hpqq=242) CO2 (BEAKER) (test 22 meq/L 22-29 irxv=861) BLOOD UREA NITROGEN 31 mg/dL 7-21 (BEAKER) (test fguc=886) CREATININE (BEAKER) (test 1.44 mg/dL 0.57-1.25 eoqy=606) GLUCOSE RANDOM (BEAKER) 123 mg/dL 70-105 (test vfoj=538) CALCIUM (BEAKER) (test 9.1 mg/dL 8.4-10.2 ancp=113) EGFR (BEAKER) (test 48 mL/min/1.73 sq m ESTIMATED GFR IS NOT epoc=6687) ACCURATE CREATININE CLEARANCE IN PREDICTING GLOMERULAR FILTRATION RATE. ESTIMATED GFR IS NOT APPLICABLE FOR DIALYSIS PATIENTS. POCT-GLUCOSE [id number] 21:12:00 Test Item Value Reference Range Comments POC-GLUCOSE METER (BEAKER) 159 mg/dL 70-110 TESTED AT [facility] [address] [facility] (test apcc=7701) [facility] [address] POCT-GLUCOSE [id number] 17:44:00 Test Item Value Reference Range Comments POC-GLUCOSE METER (BEAKER) 158 mg/dL 70-110 TESTED AT [facility] [address] [facility] (test xwyt=1444) [facility] [address] U/S, RENAL, [id number] 10:50:00Reason for exam:->AKIShould this be performed at [...] MDReport Verified Date/Time: 01/11/2019 10:50:26 Reading Location: [facility] C013X Ortho Consult Reading Room MR, MRA ABDOMEN, WITHOUT FOLLOW WITH [id number] 08:43:00FINAL REPORT MRA of the abdominal [...] nephrotoxic contrast agent. TECHNIQUE: Farzaneh 3 Natasha PollitoInglesIA MRI scanner. Limited images were performed for [...] Legereport Verified Date/Time: 01/11 08:43:33 Reading Location: [place] [address] Cardiology MRI POCT-GLUCOSE [id number] 07:57:00 Test Item Value Reference Range Comments POC-GLUCOSE METER (BEAKER) 137 mg/dL 70-110 TESTED AT [facility] [address] [facility] (test nthh=3919) [facility] [address] BASIC METABOLIC [id number] 07:37:00 Test Item Value Reference Range Comments SODIUM (BEAKER) (test 141 meq/L 136-145 cuzx=685) POTASSIUM (BEAKER) (test 4.2 meq/L 3.5-5.1 tefk=542) CHLORIDE (BEAKER) (test 106 meq/L 98-107 cetw=498) CO2 (BEAKER) (test 25 meq/L 22-29 ijmk=316) BLOOD UREA NITROGEN 35 mg/dL 7-21 (BEAKER) (test aqkz=190) CREATININE (BEAKER) (test 1.67 mg/dL 0.57-1.25 eeak=958) GLUCOSE RANDOM (BEAKER) 121 mg/dL 70-105 (test fepo=816) CALCIUM (BEAKER) (test 9.3 mg/dL 8.4-10.2 tbsd=942) EGFR (BEAKER) (test 40 mL/min/1.73 sq m ESTIMATED GFR IS NOT ucfs=6561) ACCURATE CREATININE CLEARANCE IN PREDICTING GLOMERULAR FILTRATION RATE. ESTIMATED GFR IS NOT APPLICABLE FOR DIALYSIS PATIENTS. CBC W/PLT COUNT & AUTO [id number] 06:21:00 Test Item Value Reference Range Comments WHITE BLOOD CELL COUNT (BEAKER) (test gbcw=981) 7.3 K/ L 3.5-10.5 RED BLOOD CELL COUNT (BEAKER) (test lhqw=564) 3.65 M/ L 4.63-6.08 HEMOGLOBIN (BEAKER) (test yqef=498) 9.7 GM/DL 13.7-17.5 HEMATOCRIT (BEAKER) (test qewl=809) 30.8 % 40.1-51.0 MEAN CORPUSCULAR VOLUME (BEAKER) (test enaj=783) 84.4 fL 79.0-92.2 MEAN CORPUSCULAR HEMOGLOBIN (BEAKER) (test 26.6 pg 25.7-32.2 afmc=124) MEAN CORPUSCULAR HEMOGLOBIN CONC (BEAKER) (test 31.5 GM/DL 32.3-36.5 zrmh=842) RED CELL DISTRIBUTION WIDTH (BEAKER) (test 18.2 % 11.6-14.4 xekx=457) PLATELET COUNT (BEAKER) (test adwz=156) 229 K/CU MM 150-450 MEAN PLATELET VOLUME (BEAKER) (test zkze=305) 9.7 fL 9.4-12.4 NUCLEATED RED BLOOD CELLS (BEAKER) (test 0 /100 WBC 0-0 muor=644) NEUTROPHILS RELATIVE PERCENT (BEAKER) (test 55 % oksv=440) LYMPHOCYTES RELATIVE PERCENT (BEAKER) (test 31 % kvtb=429) MONOCYTES RELATIVE PERCENT (BEAKER) (test 8 % kpnd=419) EOSINOPHILS RELATIVE PERCENT (BEAKER) (test 5 % fihy=842) BASOPHILS RELATIVE PERCENT (BEAKER) (test 1 % nnei=699) NEUTROPHILS ABSOLUTE COUNT (BEAKER) (test 3.99 K/ L 1.78-5.38 zhan=545) LYMPHOCYTES ABSOLUTE COUNT (BEAKER) (test 2.28 K/ L 1.32-3.57 tldq=434) MONOCYTES ABSOLUTE COUNT (BEAKER) (test 0.59 K/ L 0.30-0.82 jyha=024) EOSINOPHILS ABSOLUTE COUNT (BEAKER) (test 0.37 K/ L 0.04-0.54 ikkp=548) BASOPHILS ABSOLUTE COUNT (BEAKER) (test 0.05 K/ L 0.01-0.08 qqyf=238) IMMATURE GRANULOCYTES-RELATIVE PERCENT (BEAKER) 0 % 0-1 (test vini=6990) POCT-GLUCOSE [id number] 21:13:00 Test Item Value Reference Range Comments POC-GLUCOSE METER (BEAKER) 188 mg/dL 70-110 TESTED AT [facility] [address] [facility] (test lnxn=1853) [facility] [address] POCT-GLUCOSE [id number] 18:14:00 Test Item Value Reference Range Comments POC-GLUCOSE METER (BEAKER) 159 mg/dL 70-110 TESTED AT [facility] [address] [facility] (test pzgi=9099) [facility] [address] POCT-GLUCOSE [id number] 12:15:00 Test Item Value Reference Range Comments POC-GLUCOSE METER (BEAKER) 174 mg/dL 70-110 TESTED AT [facility] [address] [facility] (test dnvs=9949) [facility] [address] BASIC METABOLIC [id number] 11:21:00 Test Item Value Reference Range Comments SODIUM (BEAKER) (test 142 meq/L 136-145 fezh=550) POTASSIUM (BEAKER) (test 3.9 meq/L 3.5-5.1 vscv=794) CHLORIDE (BEAKER) (test 112 meq/L 98-107 cazo=330) CO2 (BEAKER) (test 22 meq/L 22-29 qatf=739) BLOOD UREA NITROGEN 35 mg/dL 7-21 (BEAKER) (test spgp=680) CREATININE (BEAKER) (test 1.57 mg/dL 0.57-1.25 oijv=389) GLUCOSE RANDOM (BEAKER) 149 mg/dL 70-105 (test lbtv=592) CALCIUM (BEAKER) (test 8.3 mg/dL 8.4-10.2 lwdk=084) EGFR (BEAKER) (test 43 mL/min/1.73 sq m ESTIMATED GFR IS NOT bjvv=0267) ACCURATE CREATININE CLEARANCE IN PREDICTING GLOMERULAR FILTRATION RATE. ESTIMATED GFR IS NOT APPLICABLE FOR DIALYSIS PATIENTS. CBC W/PLT COUNT & AUTO [id number] 09:55:00 Test Item Value Reference Range Comments WHITE BLOOD CELL COUNT (BEAKER) (test arru=776) 7.2 K/ L 3.5-10.5 RED BLOOD CELL COUNT (BEAKER) (test xcnb=887) 3.54 M/ L 4.63-6.08 HEMOGLOBIN (BEAKER) (test kxcd=158) 9.3 GM/DL 13.7-17.5 HEMATOCRIT (BEAKER) (test yhnf=847) 30.0 % 40.1-51.0 MEAN CORPUSCULAR VOLUME (BEAKER) (test lbis=802) 84.7 fL 79.0-92.2 MEAN CORPUSCULAR HEMOGLOBIN (BEAKER) (test 26.3 pg 25.7-32.2 ccnk=915) MEAN CORPUSCULAR HEMOGLOBIN CONC (BEAKER) (test 31.0 GM/DL 32.3-36.5 dlmp=139) RED CELL DISTRIBUTION WIDTH (BEAKER) (test 18.1 % 11.6-14.4 izjq=014) PLATELET COUNT (BEAKER) (test dpqq=314) 222 K/CU MM 150-450 MEAN PLATELET VOLUME (BEAKER) (test sgnf=747) 9.2 fL 9.4-12.4 NUCLEATED RED BLOOD CELLS (BEAKER) (test 0 /100 WBC 0-0 zfbr=292) NEUTROPHILS RELATIVE PERCENT (BEAKER) (test 62 % swiu=833) LYMPHOCYTES RELATIVE PERCENT (BEAKER) (test 26 % dban=811) MONOCYTES RELATIVE PERCENT (BEAKER) (test 8 % adda=086) EOSINOPHILS RELATIVE PERCENT (BEAKER) (test 3 % ikgw=176) BASOPHILS RELATIVE PERCENT (BEAKER) (test 1 % hjtp=489) NEUTROPHILS ABSOLUTE COUNT (BEAKER) (test 4.43 K/ L 1.78-5.38 qsgl=375) LYMPHOCYTES ABSOLUTE COUNT (BEAKER) (test 1.85 K/ L 1.32-3.57 jkpu=296) MONOCYTES ABSOLUTE COUNT (BEAKER) (test 0.57 K/ L 0.30-0.82 tenb=277) EOSINOPHILS ABSOLUTE COUNT (BEAKER) (test 0.24 K/ L 0.04-0.54 csvi=860) BASOPHILS ABSOLUTE COUNT (BEAKER) (test 0.04 K/ L 0.01-0.08 wmpc=506) IMMATURE GRANULOCYTES-RELATIVE PERCENT (BEAKER) 1 % 0-1 (test zhmu=9272) BASIC METABOLIC [id number] 23:02:00 Test Item Value Reference Range Comments SODIUM (BEAKER) (test 137 meq/L 136-145 qzpl=812) POTASSIUM (BEAKER) (test 4.6 meq/L 3.5-5.1 hbxw=426) CHLORIDE (BEAKER) (test 109 meq/L 98-107 gyus=959) CO2 (BEAKER) (test 22 meq/L 22-29 etqw=719) BLOOD UREA NITROGEN 38 mg/dL 7-21 (BEAKER) (test wzii=164) CREATININE (BEAKER) (test 1.91 mg/dL 0.57-1.25 trhq=522) GLUCOSE RANDOM (BEAKER) 157 mg/dL 70-105 (test xhrv=835) CALCIUM (BEAKER) (test 8.9 mg/dL 8.4-10.2 kfcu=496) EGFR (BEAKER) (test 35 mL/min/1.73 sq m ESTIMATED GFR IS NOT gfaf=2380) ACCURATE CREATININE CLEARANCE IN PREDICTING GLOMERULAR FILTRATION RATE. ESTIMATED GFR IS NOT APPLICABLE FOR DIALYSIS PATIENTS. POCT-GLUCOSE [id number] 21:56:00 Test Item Value Reference Range Comments POC-GLUCOSE METER (BEAKER) 161 mg/dL 70-110 TESTED AT [address] (test lryz=9224) [place] [address] POCT-GLUCOSE [id number] 13:45:00 Test Item Value Reference Range Comments POC-GLUCOSE METER (BEAKER) 164 mg/dL 70-110 TESTED AT [address] (test eduf=4836) [place] [address] [id number] 10:16:00 Test Item Value Reference Range Comments POTASSIUM (BEAKER) (test 5.5 meq/L 3.5-5.1 Specimen slightly hemolyzed qifw=974) CALCIUM, [id number] 07:07:00 Test Item Value Reference Range Comments CALCIUM IONIZED (BEAKER) (test blzq=566) 1.05 mmol/L 1.12-1.27 PH, BLOOD (BEAKER) (test ayzf=0568) 7.31 [id number] 06:19:00 Test Item Value Reference Range Comments POTASSIUM (BEAKER) (test kfkc=893) 5.3 meq/L 3.5-5.1 POCT-GLUCOSE [id number] 06:17:00 Test Item Value Reference Range Comments POC-GLUCOSE METER (BEAKER) 177 mg/dL 70-110 TESTED AT [address] (test gjic=1863) [place] [address] [id number] 05:44:00 Test Item Value Reference Range Comments PHOSPHORUS (BEAKER) (test cusm=634) 4.0 mg/dL 2.3-4.7 [id number] 05:44:00 Test Item Value Reference Range Comments MAGNESIUM (BEAKER) (test jszj=040) 1.6 mg/dL 1.6-2.6 COMPREHENSIVE METABOLIC [id number] 05:44:00 Test Item Value Reference Range Comments TOTAL PROTEIN (BEAKER) 7.3 gm/dL 6.0-8.3 (test cdei=447) ALBUMIN (BEAKER) (test 3.8 g/dL 3.5-5.0 merd=1219) ALKALINE PHOSPHATASE 91 U/L 40-150 (BEAKER) (test fblx=296) BILIRUBIN TOTAL (BEAKER) 0.5 mg/dL 0.2-1.2 (test udpy=182) SODIUM (BEAKER) (test 139 meq/L 136-145 mpfo=583) POTASSIUM (BEAKER) (test 5.4 meq/L 3.5-5.1 kzwq=217) CHLORIDE (BEAKER) (test 110 meq/L 98-107 wmsg=538) CO2 (BEAKER) (test 20 meq/L 22-29 xyio=094) BLOOD UREA NITROGEN 45 mg/dL 7-21 (BEAKER) (test hchg=446) CREATININE (BEAKER) (test 2.45 mg/dL 0.57-1.25 ewlt=072) GLUCOSE RANDOM (BEAKER) 177 mg/dL 70-105 (test pvbo=152) CALCIUM (BEAKER) (test 9.5 mg/dL 8.4-10.2 evvk=461) AST (SGOT) (BEAKER) (test 11 U/L 5-34 osmk=308) ALT (SGPT) (BEAKER) (test 9 U/L 6-55 xzsi=389) EGFR (BEAKER) (test 26 mL/min/1.73 sq m ESTIMATED GFR IS NOT xiie=5069) ACCURATE CREATININE CLEARANCE IN PREDICTING GLOMERULAR FILTRATION RATE. ESTIMATED GFR IS NOT APPLICABLE FOR DIALYSIS PATIENTS. B-TYPE NATRIURETIC FACTOR (BNP)2019-01-09 05:34:00 Test Item Value Reference Range Comments B-TYPE NATRIURETIC PEPTIDE (BEAKER) (test 248 pg/mL 0-100 wrjp=982) CBC W/PLT COUNT & AUTO [id number] 05:14:00 Test Item Value Reference Range Comments WHITE BLOOD CELL COUNT (BEAKER) (test xxwc=831) 9.4 K/ L 3.5-10.5 RED BLOOD CELL COUNT (BEAKER) (test jgdk=459) 3.79 M/ L 4.63-6.08 HEMOGLOBIN (BEAKER) (test fylk=038) 9.8 GM/DL 13.7-17.5 HEMATOCRIT (BEAKER) (test hwoq=066) 32.0 % 40.1-51.0 MEAN CORPUSCULAR VOLUME (BEAKER) (test thhi=174) 84.4 fL 79.0-92.2 MEAN CORPUSCULAR HEMOGLOBIN (BEAKER) (test 25.9 pg 25.7-32.2 kopc=092) MEAN CORPUSCULAR HEMOGLOBIN CONC (BEAKER) (test 30.6 GM/DL 32.3-36.5 ycvo=576) RED CELL DISTRIBUTION WIDTH (BEAKER) (test 17.5 % 11.6-14.4 zoea=960) PLATELET COUNT (BEAKER) (test rnaw=371) 232 K/CU MM 150-450 MEAN PLATELET VOLUME (BEAKER) (test kzcu=015) 9.3 fL 9.4-12.4 NUCLEATED RED BLOOD CELLS (BEAKER) (test 0 /100 WBC 0-0 cydl=915) NEUTROPHILS RELATIVE PERCENT (BEAKER) (test 78 % zckr=316) LYMPHOCYTES RELATIVE PERCENT (BEAKER) (test 13 % rsja=346) MONOCYTES RELATIVE PERCENT (BEAKER) (test 4 % pwch=389) EOSINOPHILS RELATIVE PERCENT (BEAKER) (test 4 % kscj=510) BASOPHILS RELATIVE PERCENT (BEAKER) (test 0 % zkwm=130) NEUTROPHILS ABSOLUTE COUNT (BEAKER) (test 7.31 K/ L 1.78-5.38 wsdk=393) LYMPHOCYTES ABSOLUTE COUNT (BEAKER) (test 1.24 K/ L 1.32-3.57 aklk=460) MONOCYTES ABSOLUTE COUNT (BEAKER) (test 0.37 K/ L 0.30-0.82 apqa=363) EOSINOPHILS ABSOLUTE COUNT (BEAKER) (test 0.39 K/ L 0.04-0.54 xqtg=942) BASOPHILS ABSOLUTE COUNT (BEAKER) (test 0.04 K/ L 0.01-0.08 abhj=150) IMMATURE GRANULOCYTES-RELATIVE PERCENT (BEAKER) 0 % 0-1 (test xavk=5468) URINALYSIS W/ [id number] 00:47:00 Test Item Value Reference Range Comments COLOR (BEAKER) (test jmbm=989) Yellow CLARITY (BEAKER) (test aswd=737) Cloudy SPECIFIC GRAVITY UA (BEAKER) (test uaif=303) 1.014 1.001-1.035 PH UA (BEAKER) (test shxd=165) 7.5 5.0-8.0 PROTEIN UA (BEAKER) (test gjqj=000) 50 mg/dL Negative GLUCOSE UA (BEAKER) (test glnb=914) Negative Negative KETONES UA (BEAKER) (test iqqh=217) Negative Negative BILIRUBIN UA (BEAKER) (test kmuj=798) Negative Negative BLOOD UA (BEAKER) (test fpdp=661) Small Negative NITRITE UA (BEAKER) (test jvsh=348) Negative Negative LEUKOCYTE ESTERASE UA (BEAKER) (test bqoz=748) Large Negative UROBILINOGEN UA (BEAKER) (test vvev=467) 0.2 mg/dL 0.2-1.0 RBC UA (BEAKER) (test qnfg=745) 71 /HPF WBC UA (BEAKER) (test epar=978) 1129 /HPF BACTERIA (BEAKER) (test tpjs=150) Many MUCUS (BEAKER) (test eonb=0533) Rare SQUAMOUS EPITHELIAL (BEAKER) (test fejt=028) 1 /HPF HYALINE CASTS (BEAKER) (test alye=911) 19 /LPF SOURCE(BEAKER) (test tbsw=2706) Urine, Voided [id number] 00:34:00 Test Item Value Reference Range Comments POTASSIUM (BEAKER) (test qkdv=002) 5.4 meq/L 3.5-5.1 RAD, CHEST, 1 VIEW, NON [id number] 23:33:00Reason for exam:->edemaShould this be performed at [...] [place] Verified Date/Time: 01/08/2019 23:33:47 Reading Location: [facility] B1 [id number] Consult Reading Room POCT-GLUCOSE [id number] 21:58:00 Test Item Value Reference Range Comments POC-GLUCOSE METER (BEAKER) 186 mg/dL 70-110 TESTED AT [facility] [address] [facility] (test hdgj=4049) [facility] [address] EOSINOPHIL SMEAR, [id number] 20:29:00 Test Item Value Reference Range Comments EOSINOPHIL SMEAR, URINE (BEAKER) (test No EOS seen No EOS seen qkml=2757) BASIC METABOLIC [id number] 20:08:00 Test Item Value Reference Range Comments SODIUM (BEAKER) (test 134 meq/L 136-145 movn=302) POTASSIUM (BEAKER) (test 5.5 meq/L 3.5-5.1 ysuo=432) CHLORIDE (BEAKER) (test 108 meq/L 98-107 jzlp=044) CO2 (BEAKER) (test 19 meq/L 22-29 lxsu=950) BLOOD UREA NITROGEN 47 mg/dL 7-21 (BEAKER) (test tfej=348) CREATININE (BEAKER) (test 2.51 mg/dL 0.57-1.25 ynzw=425) GLUCOSE RANDOM (BEAKER) 185 mg/dL 70-105 (test adtz=146) CALCIUM (BEAKER) (test 9.2 mg/dL 8.4-10.2 pvpl=001) EGFR (BEAKER) (test 25 mL/min/1.73 sq m ESTIMATED GFR IS NOT hkti=6165) ACCURATE CREATININE CLEARANCE IN PREDICTING GLOMERULAR FILTRATION RATE. ESTIMATED GFR IS NOT APPLICABLE FOR DIALYSIS PATIENTS. Thank you for drawing the blood. He requires strict monitoring of K in preparation for OR tomorrow.HEMOGLOBIN AND [id number] 19:51:00 Test Item Value Reference Range Comments HEMOGLOBIN (BEAKER) (test hkey=748) 8.0 GM/DL 13.7-17.5 HEMATOCRIT (BEAKER) (test wssy=293) 26.2 % 40.1-51.0 CREATININE, RANDOM [id number] 19:03:00 Test Item Value Reference Range Comments CREATININE URINE (BEAKER) (test mahb=268) 89.1 mg/dL Reference Range: No NormalsPROTEIN, RANDOM [id number] 19:03:00 Test Item Value Reference Range Comments PROTEIN, URINE (BEAKER) (test vsuy=2907) 19 mg/dL 0-14 SODIUM, RANDOM [id number] 19:03:00 Test Item Value Reference Range Comments SODIUM URINE (BEAKER) (test roqo=925) 90 meq/L Reference Range: No NormalsPOCT-GLUCOSE [id number] 16:48:00 Test Item Value Reference Range Comments POC-GLUCOSE METER (BEAKER) 259 mg/dL 70-110 TESTED AT [facility] [address] [facility] (test xnea=9819) [facility] [address] B-TYPE NATRIURETIC FACTOR (BNP)2019-01-08 16:33:00 Test Item Value Reference Range Comments B-TYPE NATRIURETIC PEPTIDE (BEAKER) (test 219 pg/mL 0-100 fqda=470) BASIC METABOLIC [id number] 16:32:00 Test Item Value Reference Range Comments SODIUM (BEAKER) (test 134 meq/L 136-145 egdr=970) POTASSIUM (BEAKER) (test 5.7 meq/L 3.5-5.1 xcfk=719) CHLORIDE (BEAKER) (test 108 meq/L 98-107 cqzl=763) CO2 (BEAKER) (test 19 meq/L 22-29 vjzu=947) BLOOD UREA NITROGEN 49 mg/dL 7-21 (BEAKER) (test nwuu=108) CREATININE (BEAKER) (test 2.68 mg/dL 0.57-1.25 xwdc=307) GLUCOSE RANDOM (BEAKER) 217 mg/dL 70-105 (test kcki=045) CALCIUM (BEAKER) (test 9.3 mg/dL 8.4-10.2 gucs=340) EGFR (BEAKER) (test 23 mL/min/1.73 sq m ESTIMATED GFR IS NOT wodk=5782) ACCURATE CREATININE CLEARANCE IN PREDICTING GLOMERULAR FILTRATION RATE. ESTIMATED GFR IS NOT APPLICABLE FOR DIALYSIS PATIENTS. URIC [id number] 16:30:00 Test Item Value Reference Range Comments URIC ACID (BEAKER) (test hcpa=943) 8.3 mg/dL 2.6-7.2 POCT-GLUCOSE [id number] 10:00:00 Test Item Value Reference Range Comments POC-GLUCOSE METER (BEAKER) 206 mg/dL 70-110 TESTED AT [facility] [address] (test ydqy=9808) [facility] [address] BASIC METABOLIC [id number] 09:58:00 Test Item Value Reference Range Comments SODIUM (BEAKER) (test 133 meq/L 136-145 qjcw=709) POTASSIUM (BEAKER) (test 6.3 meq/L 3.5-5.1 tlab=048) CHLORIDE (BEAKER) (test 107 meq/L 98-107 hpdr=526) CO2 (BEAKER) (test 20 meq/L 22-29 bagv=448) BLOOD UREA NITROGEN 49 mg/dL 7-21 (BEAKER) (test wlks=696) CREATININE (BEAKER) (test 2.70 mg/dL 0.57-1.25 dltc=283) GLUCOSE RANDOM (BEAKER) 171 mg/dL 70-105 (test smjj=618) CALCIUM (BEAKER) (test 9.1 mg/dL 8.4-10.2 wibe=754) EGFR (BEAKER) (test 23 mL/min/1.73 sq m ESTIMATED GFR IS NOT sfnh=7961) ACCURATE CREATININE CLEARANCE IN PREDICTING GLOMERULAR FILTRATION RATE. ESTIMATED GFR IS NOT APPLICABLE FOR DIALYSIS PATIENTS. [id number] 09:33:00 Test Item Value Reference Range Comments PARTIAL THROMBOPLASTIN TIME (BEAKER) (test 44.8 seconds 22.5-36.0 grbq=594) PROTHROMBIN TIME/[id number] 09:32:00 Test Item Value Reference Range Comments PROTIME (BEAKER) (test ezcu=316) 17.4 seconds 11.7-14.7 INR (BEAKER) (test xxoq=489) 1.4 <=5.9 RECOMMENDED COUMADIN/WARFARIN INR THERAPY RANGESSTANDARD DOSE: 2.0 - 3.0 Includes: PROPHYLAXIS forvenous thrombosis, systemic embolization; TREATMENT for venous thrombosis and/or pulmonary embolus.HIGH RISK: Target INR is 2.5-3.5 for patients with mechanical heart valves.HEMOGLOBIN AND [id number] 09 :24:00 Test Item Value Reference Range Comments HEMOGLOBIN (BEAKER) (test xvhh=979) 8.0 GM/DL 13.7-17.5 HEMATOCRIT (BEAKER) (test buod=192) 27.2 % 40.1-51.0 [id number] 11:10:00Medical Cytology Report Case: [id number] Authorizing Provider: Gianna Peter MD Collected: 11/28/2018 0378 Ordering Location: [address] Received: 11/28/2018 1658 Service Pathologist: Chelsea Curran MD Specimen: Kidney , Right RIGHT KIDNEY MASS, FNA AND CORE BIOPSY BY RADIOLOGIST (FILOMENA) (DIRECT SMEARS AND CELL BLOCK OF ASPIRATE): - FEW ATYPICAL CELLS, COMPATIBLE WITH RENAL CELL CARCINOMA (see comment) Signing Pathologist Direct Phone Line: The smears show few scattered atypical cells [...] cell carcinoma. Clinical and radiologic correlation is recommended.29248, 69260, 56380 x 2; 52079; 16156 6 cm right kidney massRIGHT KIDNEYMASS FNA AND CORE BIOPSYPrepared 6 direct smear slides and cell block(A3) using collodion bag from material collected in RPMI Core biopsy collected in formalin contained two white/red fragments measuring 0.8 cm each; one 0.4 cm red fragment; one mostly white 0.9 cm fragment, and three red ragged fragments measuring 0.2 cm each, submitted entirely in A2.Collected: [id number]: [id number] FEW CELLS SUSPICIOUS FOR RENAL CELL CARCINOMA (5:17PM, 11/28/2018, )The interpretation of this case included the use of immunohistochemistry or special stains. PAX-8 and CAM5.2Immunohistochemistry technical testing was performed at [facility], Pathology Laboratory where it was developed [...] qualified to perform high complexity clinical laboratory testing.[facility], Department of Pathology, [address] [place] [address], [facility], [address] [place] [address], Tel [facility], [facility], [address] [place] [address], HYLG-GLUCOSE [id number] 17:10:00 Test Item Value Reference Range Comments POC-GLUCOSE METER (BEAKER) 153 mg/dL 70-110 TESTED AT [address] (test wqfc=2763) [place] [address] POCT-GLUCOSE [id number] 11:57:00 Test Item Value Reference Range Comments POC-GLUCOSE METER (BEAKER) 128 mg/dL 70-110 TESTED AT [address] (test bfrw=1584) [place] [address] POCT-GLUCOSE [id number] 07:52:00 Test Item Value Reference Range Comments POC-GLUCOSE METER (BEAKER) 121 mg/dL 70-110 TESTED AT [address] (test yxpr=3822) [place] [address] POCT-GLUCOSE [id number] 20:55:00 Test Item Value Reference Range Comments POC-GLUCOSE METER (BEAKER) 134 mg/dL 70-110 TESTED AT [address] (test cudj=7426) [place] [address] POCT-GLUCOSE [id number] 18:19:00 Test Item Value Reference Range Comments POC-GLUCOSE METER (BEAKER) 137 mg/dL 70-110 TESTED AT [address] (test tswc=0692) [place] [address] POCT-GLUCOSE [id number] 11:33:00 Test Item Value Reference Range Comments POC-GLUCOSE METER (BEAKER) 188 mg/dL 70-110 TESTED AT [address] (test zsef=5009) [place] [address] POCT-GLUCOSE [id number] 07:44:00 Test Item Value Reference Range Comments POC-GLUCOSE METER (BEAKER) 143 mg/dL 70-110 TESTED AT [facility] [address] [facility] (test odvb=5816) [facility] [address] POCT-GLUCOSE [id number] 21:19:00 Test Item Value Reference Range Comments POC-GLUCOSE METER (BEAKER) 156 mg/dL 70-110 TESTED AT [place] [id number] [facility] (test onxt=2215) [facility] [address] POCT-GLUCOSE [id number] 19:08:00 Test Item Value Reference Range Comments POC-GLUCOSE METER (BEAKER) 175 mg/dL 70-110 TESTED AT [address] (test ikzb=1034) [facility] [address] [id number] 15:34:00 Test Item Value Reference Range Comments PHOSPHORUS (BEAKER) (test pyqu=330) 2.3 mg/dL 2.3-4.7 [id number] 15:34:00 Test Item Value Reference Range Comments MAGNESIUM (BEAKER) (test preq=433) 1.2 mg/dL 1.6-2.6 BASIC METABOLIC [id number] 15:34:00 Test Item Value Reference Range Comments SODIUM (BEAKER) (test 139 meq/L 136-145 mnaa=091) POTASSIUM (BEAKER) (test 3.8 meq/L 3.5-5.1 fhhi=587) CHLORIDE (BEAKER) (test 110 meq/L 98-107 wrqv=947) CO2 (BEAKER) (test 20 meq/L 22-29 aszs=698) BLOOD UREA NITROGEN 9 mg/dL 7-21 (BEAKER) (test hkug=161) CREATININE (BEAKER) (test 1.21 mg/dL 0.57-1.25 iiwn=993) GLUCOSE RANDOM (BEAKER) 149 mg/dL 70-105 (test wpym=653) CALCIUM (BEAKER) (test 8.8 mg/dL 8.4-10.2 auno=326) EGFR (BEAKER) (test 58 mL/min/1.73 sq m ESTIMATED GFR IS NOT boti=4629) ACCURATE CREATININE CLEARANCE IN PREDICTING GLOMERULAR FILTRATION RATE. ESTIMATED GFR IS NOT APPLICABLE FOR DIALYSIS PATIENTS. HEMOGLOBIN AND [id number] 15:16:00 Test Item Value Reference Range Comments HEMOGLOBIN (BEAKER) (test jftw=403) 8.9 GM/DL 13.7-17.5 HEMATOCRIT (BEAKER) (test nwum=066) 28.9 % 40.1-51.0 POCT-GLUCOSE [id number] 12:46:00 Test Item Value Reference Range Comments POC-GLUCOSE METER (BEAKER) 195 mg/dL 70-110 TESTED AT [address] (test nyts=8062) [place] [address] POCT-GLUCOSE [id number] 08:26:00 Test Item Value Reference Range Comments POC-GLUCOSE METER (BEAKER) 113 mg/dL 70-110 TESTED AT [address] (test miep=2498) [place] [address] HEMOGLOBIN AND [id number] 23:04:00 Test Item Value Reference Range Comments HEMOGLOBIN (BEAKER) (test ypxy=386) 9.2 GM/DL 13.7-17.5 HEMATOCRIT (BEAKER) (test bdje=122) 30.2 % 40.1-51.0 POCT-GLUCOSE [id number] 21:02:00 Test Item Value Reference Range Comments POC-GLUCOSE METER (BEAKER) 106 mg/dL 70-110 TESTED AT [address] (test wsgy=1400) [place] [address] POCT-GLUCOSE [id number] 18:35:00 Test Item Value Reference Range Comments POC-GLUCOSE METER (BEAKER) 128 mg/dL 70-110 TESTED AT [address] (test egrz=9268) [place] [address] U/S, BIOPSY, RENAL (KIDNEY)2018-11-28 17:54:00Reason for exam:->R sided kidney mass, biopsy neededFINAL REPORT Ultrasound guided fine-needle aspiration and core biopsy dated 11/28/2018 Procedure: Fine- needle aspiration and core biopsy of the right renal mass Pre-procedure diagnosis: Right renal mass Post-procedure diagnosis: Right renal mass Radiologist: Lurdes Fernandes MD Bookstore Clerk: None Sedation: Moderate sedation was administered. 1.5 [...] Fernandes Verified Date/Time: 11/28 17:54:55 Reading Location: [address] Ultrasound Reading Room U/S, ASPIRATION/[id number] 17:54:00Reason for exam:->R sided kidney mass , biopsy neededFINAL REPORT Ultrasound guided fine- needle aspiration and core biopsy dated 11/28/2018 Procedure: Fine-needle aspiration and core biopsy of the right renal mass Pre-procedure diagnosis: Right renal mass Post-procedure diagnosis: Right renal mass Radiologist: Lurdes Fernandes MD Bookstore Clerk: None Sedation: Moderate sedation was administered. 1.5 [...] Verified Date/Time: 11/28/2018 17:54: 55 Reading Location: [address] Ultrasound Reading Room POCT-GLUCOSE [id number] 12:01:00 Test Item Value Reference Range Comments POC-GLUCOSE METER (BEAKER) 133 mg/dL 70-110 TESTED AT [facility] [address] [facility] (test oitt=4691) [facility] [address] POCT-GLUCOSE [id number] 08:12:00 Test Item Value Reference Range Comments POC-GLUCOSE METER (BEAKER) 139 mg/dL 70-110 TESTED AT [place] [id number] [facility] (test wydl=1842) [facility] [address] CALCIUM, [id number] 07:20:00 Test Item Value Reference Range Comments CALCIUM IONIZED (BEAKER) (test gial=232) 1.10 mmol/L 1.12-1.27 PH, BLOOD (BEAKER) (test jjqx=1671) 7.40 BLOOD [id number] 07:01:00 Test Item Value Reference Range Comments CULTURE (BEAKER) (test eryu=5597) No growth in 5 days [id number] 06:10:00 Test Item Value Reference Range Comments PHOSPHORUS (BEAKER) (test qhmm=002) 2.0 mg/dL 2.3-4.7 [id number] 06:10:00 Test Item Value Reference Range Comments MAGNESIUM (BEAKER) (test qrcg=124) 1.6 mg/dL 1.6-2.6 BASIC METABOLIC [id number] 06:10:00 Test Item Value Reference Range Comments SODIUM (BEAKER) (test 140 meq/L 136-145 gmqn=127) POTASSIUM (BEAKER) (test 3.8 meq/L 3.5-5.1 umth=295) CHLORIDE (BEAKER) (test 112 meq/L 98-107 rany=256) CO2 (BEAKER) (test 19 meq/L 22-29 ezmd=347) BLOOD UREA NITROGEN 9 mg/dL 7-21 (BEAKER) (test iihh=747) CREATININE (BEAKER) (test 1.08 mg/dL 0.57-1.25 rafm=368) GLUCOSE RANDOM (BEAKER) 120 mg/dL 70-105 (test lixk=399) CALCIUM (BEAKER) (test 8.5 mg/dL 8.4-10.2 cctp=800) EGFR (BEAKER) (test 67 mL/min/1.73 sq m ESTIMATED GFR IS NOT jken=3322) ACCURATE CREATININE CLEARANCE IN PREDICTING GLOMERULAR FILTRATION RATE. ESTIMATED GFR IS NOT APPLICABLE FOR DIALYSIS PATIENTS. CBC W/PLT COUNT & AUTO [id number] 05:33:00 Test Item Value Reference Range Comments WHITE BLOOD CELL COUNT (BEAKER) (test pbxg=792) 8.2 K/ L 3.5-10.5 RED BLOOD CELL COUNT (BEAKER) (test caaq=386) 3.68 M/ L 4.63-6.08 HEMOGLOBIN (BEAKER) (test uwse=387) 9.4 GM/DL 13.7-17.5 HEMATOCRIT (BEAKER) (test tgpg=512) 31.1 % 40.1-51.0 MEAN CORPUSCULAR VOLUME (BEAKER) (test blto=644) 84.5 fL 79.0-92.2 MEAN CORPUSCULAR HEMOGLOBIN (BEAKER) (test 25.5 pg 25.7-32.2 fkjr=760) MEAN CORPUSCULAR HEMOGLOBIN CONC (BEAKER) (test 30.2 GM/DL 32.3-36.5 rarz=892) RED CELL DISTRIBUTION WIDTH (BEAKER) (test 22.4 % 11.6-14.4 lcyi=664) PLATELET COUNT (BEAKER) (test glxz=491) 274 K/CU MM 150-450 MEAN PLATELET VOLUME (BEAKER) (test zwbe=500) 9.9 fL 9.4-12.4 NUCLEATED RED BLOOD CELLS (BEAKER) (test 0 /100 WBC 0-0 ksyi=326) NEUTROPHILS RELATIVE PERCENT (BEAKER) (test 59 % pkbt=038) LYMPHOCYTES RELATIVE PERCENT (BEAKER) (test 28 % pzey=897) MONOCYTES RELATIVE PERCENT (BEAKER) (test 6 % iqea=086) EOSINOPHILS RELATIVE PERCENT (BEAKER) (test 5 % eykb=512) BASOPHILS RELATIVE PERCENT (BEAKER) (test 1 % fxdp=755) NEUTROPHILS ABSOLUTE COUNT (BEAKER) (test 4.80 K/ L 1.78-5.38 kqdx=675) LYMPHOCYTES ABSOLUTE COUNT (BEAKER) (test 2.30 K/ L 1.32-3.57 xbds=395) MONOCYTES ABSOLUTE COUNT (BEAKER) (test 0.52 K/ L 0.30-0.82 nafy=893) EOSINOPHILS ABSOLUTE COUNT (BEAKER) (test 0.39 K/ L 0.04-0.54 oohb=236) BASOPHILS ABSOLUTE COUNT (BEAKER) (test 0.05 K/ L 0.01-0.08 kfec=476) IMMATURE GRANULOCYTES-RELATIVE PERCENT (BEAKER) 1 % 0-1 (test vucj=4524) POCT-GLUCOSE [id number] 22:53:00 Test Item Value Reference Range Comments POC-GLUCOSE METER (BEAKER) 105 mg/dL 70-110 TESTED AT [address] (test bzgq=2339) [facility] [id number] BLOOD [id number] 19:01:00 Test Item Value Reference Range Comments CULTURE (BEAKER) (test owxd=8598) No growth in 5 days POCT-GLUCOSE [id number] 16:46:00 Test Item Value Reference Range Comments POC-GLUCOSE METER (BEAKER) 120 mg/dL 70-110 TESTED AT [address] (test bxyu=9990) [facility] [id number] POCT-GLUCOSE [id number] 12:49:00 Test Item Value Reference Range Comments POC-GLUCOSE METER (BEAKER) 140 mg/dL 70-110 TESTED AT [address] (test gveu=7255) [facility] [id number] POCT-GLUCOSE [id number] 08:33:00 Test Item Value Reference Range Comments POC-GLUCOSE METER (BEAKER) 138 mg/dL 70-110 TESTED AT [address] (test vdzo=6479) [facility] [id number] CALCIUM, [id number] 07:28:00 Test Item Value Reference Range Comments CALCIUM IONIZED (BEAKER) (test zoed=944) 1.10 mmol/L 1.12-1.27 PH, BLOOD (BEAKER) (test afpv=4304) 7.39 [id number] 06:54:00 Test Item Value Reference Range Comments PHOSPHORUS (BEAKER) (test tqer=657) 2.3 mg/dL 2.3-4.7 [id number] 06:54:00 Test Item Value Reference Range Comments MAGNESIUM (BEAKER) (test vxna=321) 1.7 mg/dL 1.6-2.6 BASIC METABOLIC [id number] 06:54:00 Test Item Value Reference Range Comments SODIUM (BEAKER) (test 140 meq/L 136-145 zhcc=954) POTASSIUM (BEAKER) (test 3.7 meq/L 3.5-5.1 pvmb=630) CHLORIDE (BEAKER) (test 112 meq/L 98-107 vcxw=583) CO2 (BEAKER) (test 19 meq/L 22-29 lkls=282) BLOOD UREA NITROGEN 10 mg/dL 7-21 (BEAKER) (test ebwi=362) CREATININE (BEAKER) (test 1.05 mg/dL 0.57-1.25 vtuc=280) GLUCOSE RANDOM (BEAKER) 112 mg/dL 70-105 (test dfex=324) CALCIUM (BEAKER) (test 8.6 mg/dL 8.4-10.2 jjmy=026) EGFR (BEAKER) (test 69 mL/min/1.73 sq m ESTIMATED GFR IS NOT rwjm=5876) ACCURATE CREATININE CLEARANCE IN PREDICTING GLOMERULAR FILTRATION RATE. ESTIMATED GFR IS NOT APPLICABLE FOR DIALYSIS PATIENTS. CBC W/PLT COUNT & AUTO [id number] 06:50:00 Test Item Value Reference Range Comments WHITE BLOOD CELL COUNT (BEAKER) (test gqfc=432) 8.4 K/ L 3.5-10.5 RED BLOOD CELL COUNT (BEAKER) (test lvmh=176) 3.42 M/ L 4.63-6.08 HEMOGLOBIN (BEAKER) (test xsou=913) 8.7 GM/DL 13.7-17.5 HEMATOCRIT (BEAKER) (test dcfk=576) 28.7 % 40.1-51.0 MEAN CORPUSCULAR VOLUME (BEAKER) (test oedb=253) 83.9 fL 79.0-92.2 MEAN CORPUSCULAR HEMOGLOBIN (BEAKER) (test 25.4 pg 25.7-32.2 fmmn=402) MEAN CORPUSCULAR HEMOGLOBIN CONC (BEAKER) (test 30.3 GM/DL 32.3-36.5 kawl=007) RED CELL DISTRIBUTION WIDTH (BEAKER) (test 21.6 % 11.6-14.4 jotf=931) PLATELET COUNT (BEAKER) (test wiuc=717) 234 K/CU MM 150-450 MEAN PLATELET VOLUME (BEAKER) (test yamp=722) 10.1 fL 9.4-12.4 NUCLEATED RED BLOOD CELLS (BEAKER) (test 0 /100 WBC 0-0 gdxz=002) NEUTROPHILS RELATIVE PERCENT (BEAKER) (test 62 % pzdt=562) LYMPHOCYTES RELATIVE PERCENT (BEAKER) (test 25 % uksr=388) MONOCYTES RELATIVE PERCENT (BEAKER) (test 6 % picv=997) EOSINOPHILS RELATIVE PERCENT (BEAKER) (test 6 % ruxq=767) BASOPHILS RELATIVE PERCENT (BEAKER) (test 1 % teon=708) NEUTROPHILS ABSOLUTE COUNT (BEAKER) (test 5.21 K/ L 1.78-5.38 usqq=404) LYMPHOCYTES ABSOLUTE COUNT (BEAKER) (test 2.11 K/ L 1.32-3.57 fcai=434) MONOCYTES ABSOLUTE COUNT (BEAKER) (test 0.49 K/ L 0.30-0.82 acyp=716) EOSINOPHILS ABSOLUTE COUNT (BEAKER) (test 0.46 K/ L 0.04-0.54 vzeh=098) BASOPHILS ABSOLUTE COUNT (BEAKER) (test 0.06 K/ L 0.01-0.08 kalh=444) IMMATURE GRANULOCYTES-RELATIVE PERCENT (BEAKER) 1 % 0-1 (test ihwt=1665) POCT-GLUCOSE [id number] 21:25:00 Test Item Value Reference Range Comments POC-GLUCOSE METER (BEAKER) 118 mg/dL 70-110 TESTED AT [address] (test nhpe=0762) [place] [address] POCT-GLUCOSE [id number] 17:54:00 Test Item Value Reference Range Comments POC-GLUCOSE METER (BEAKER) 138 mg/dL 70-110 TESTED AT [address] (test qsqu=8065) [place] [address] [id number] 11:52:00 Test Item Value Reference Range Comments PHOSPHORUS (BEAKER) (test esqo=334) 1.5 mg/dL 2.3-4.7 [id number] 11:42:00 Test Item Value Reference Range Comments MAGNESIUM (BEAKER) (test xcts=816) 1.7 mg/dL 1.6-2.6 BASIC METABOLIC [id number] 11:42:00 Test Item Value Reference Range Comments SODIUM (BEAKER) (test 141 meq/L 136-145 mzrx=414) POTASSIUM (BEAKER) (test 3.6 meq/L 3.5-5.1 aezw=043) CHLORIDE (BEAKER) (test 114 meq/L 98-107 yric=053) CO2 (BEAKER) (test 20 meq/L 22-29 eqff=062) BLOOD UREA NITROGEN 13 mg/dL 7-21 (BEAKER) (test bbjm=397) CREATININE (BEAKER) (test 1.27 mg/dL 0.57-1.25 iwgg=967) GLUCOSE RANDOM (BEAKER) 135 mg/dL 70-105 (test apos=052) CALCIUM (BEAKER) (test 8.7 mg/dL 8.4-10.2 dwbw=936) EGFR (BEAKER) (test 55 mL/min/1.73 sq m ESTIMATED GFR IS NOT yobm=7369) ACCURATE CREATININE CLEARANCE IN PREDICTING GLOMERULAR FILTRATION RATE. ESTIMATED GFR IS NOT APPLICABLE FOR DIALYSIS PATIENTS. [id number] 11:41:00 Test Item Value Reference Range Comments PROTIME (BEAKER) (test xlhv=636) 16.7 seconds 11.7-14.7 INR (BEAKER) (test zhxt=490) 1.3 <=5.9 PARTIAL THROMBOPLASTIN TIME (BEAKER) (test 48.5 seconds 22.5-36.0 oman=779) RECOMMENDED COUMADIN/WARFARIN INR THERAPY RANGESSTANDARD DOSE: 2.0 - 3.0 Includes: PROPHYLAXIS forvenous thrombosis, systemic embolization; TREATMENT for venous thrombosis and/or pulmonary embolus.HIGH RISK: Target INR is 2.5-3.5 for patients with mechanical heart valves.MRSA [id number] 11:31:00 Test Item Value Reference Range Comments CULTURE (BEAKER) (test oivy=4770) No MRSA isolated CBC (HEMOGRAM ONLY)2018-11-26 11:28:00 Test Item Value Reference Range Comments WHITE BLOOD CELL COUNT (BEAKER) (test ebry=628) 7.1 K/ L 3.5-10.5 RED BLOOD CELL COUNT (BEAKER) (test ehca=278) 3.36 M/ L 4.63-6.08 HEMOGLOBIN (BEAKER) (test cbym=289) 8.5 GM/DL 13.7-17.5 HEMATOCRIT (BEAKER) (test zgwr=814) 28.4 % 40.1-51.0 MEAN CORPUSCULAR VOLUME (BEAKER) (test mabm=804) 84.5 fL 79.0-92.2 MEAN CORPUSCULAR HEMOGLOBIN (BEAKER) (test 25.3 pg 25.7-32.2 ixms=883) MEAN CORPUSCULAR HEMOGLOBIN CONC (BEAKER) (test 29.9 GM/DL 32.3-36.5 kjvv=176) RED CELL DISTRIBUTION WIDTH (BEAKER) (test 21.6 % 11.6-14.4 obrp=142) PLATELET COUNT (BEAKER) (test apim=280) 214 K/CU MM 150-450 MEAN PLATELET VOLUME (BEAKER) (test ezld=926) 9.6 fL 9.4-12.4 NUCLEATED RED BLOOD CELLS (BEAKER) (test 0 /100 WBC 0-0 yiun=819) POCT-GLUCOSE [id number] 07:38:00 Test Item Value Reference Range Comments POC-GLUCOSE METER (BEAKER) 174 mg/dL 70-110 TESTED AT [address] (test jgyf=6046) [place] [address] POCT-GLUCOSE [id number] 20:27:00 Test Item Value Reference Range Comments POC-GLUCOSE METER (BEAKER) 199 mg/dL 70-110 TESTED AT [address] (test maov=1555) [place] [id number] POCT-GLUCOSE [id number] 17:55:00 Test Item Value Reference Range Comments POC-GLUCOSE METER (BEAKER) 196 mg/dL 70-110 TESTED AT [address] (test uynd=0345) [place] [address] POCT-GLUCOSE [id number] 11:56:00 Test Item Value Reference Range Comments POC-GLUCOSE METER (BEAKER) 209 mg/dL 70-110 TESTED AT [address] (test zadr=8278) [place] [id number] KIDNEY IMAGING, SINGLE, FLOW/[id number] 11:35:00FINAL REPORT PROCEDURE: Functional RENAL SCAN, flow and function CPT CODE: 91967 INDICATION: R rcca, eval differential renal function, [...] Verified Date/Time: 11/25/2018 11:35:45 Reading Location : [address] Reading Room [id number] 10:00:00 Test Item Value Reference Range Comments PHOSPHORUS (BEAKER) (test skpa=933) 1.7 mg/dL 2.3-4.7 [id number] 10:00:00 Test Item Value Reference Range Comments MAGNESIUM (BEAKER) (test pbds=273) 2.0 mg/dL 1.6-2.6 BASIC METABOLIC [id number] 10:00:00 Test Item Value Reference Range Comments SODIUM (BEAKER) (test 141 meq/L 136-145 mjdt=143) POTASSIUM (BEAKER) (test 3.5 meq/L 3.5-5.1 xwwb=533) CHLORIDE (BEAKER) (test 113 meq/L 98-107 hjgj=193) CO2 (BEAKER) (test 22 meq/L 22-29 tlvt=169) BLOOD UREA NITROGEN 20 mg/dL 7-21 (BEAKER) (test eine=127) CREATININE (BEAKER) (test 1.50 mg/dL 0.57-1.25 nrrc=547) GLUCOSE RANDOM (BEAKER) 164 mg/dL 70-105 (test wygd=538) CALCIUM (BEAKER) (test 8.9 mg/dL 8.4-10.2 vftx=494) EGFR (BEAKER) (test 46 mL/min/1.73 sq m ESTIMATED GFR IS NOT rens=3123) ACCURATE CREATININE CLEARANCE IN PREDICTING GLOMERULAR FILTRATION RATE. ESTIMATED GFR IS NOT APPLICABLE FOR DIALYSIS PATIENTS. CBC W/PLT COUNT & AUTO [id number] 10:00:00 Test Item Value Reference Range Comments WHITE BLOOD CELL COUNT (BEAKER) (test xxuy=589) 7.6 K/ L 3.5-10.5 RED BLOOD CELL COUNT (BEAKER) (test phfz=198) 3.58 M/ L 4.63-6.08 HEMOGLOBIN (BEAKER) (test cxia=161) 9.0 GM/DL 13.7-17.5 HEMATOCRIT (BEAKER) (test ljja=551) 30.4 % 40.1-51.0 MEAN CORPUSCULAR VOLUME (BEAKER) (test kfgt=343) 84.9 fL 79.0-92.2 MEAN CORPUSCULAR HEMOGLOBIN (BEAKER) (test 25.1 pg 25.7-32.2 mhoe=758) MEAN CORPUSCULAR HEMOGLOBIN CONC (BEAKER) (test 29.6 GM/DL 32.3-36.5 erdf=281) RED CELL DISTRIBUTION WIDTH (BEAKER) (test 22.0 % 11.6-14.4 fwyf=689) PLATELET COUNT (BEAKER) (test sosj=997) 252 K/CU MM 150-450 MEAN PLATELET VOLUME (BEAKER) (test vuep=995) 10.5 fL 9.4-12.4 NUCLEATED RED BLOOD CELLS (BEAKER) (test 0 /100 WBC 0-0 dfxf=786) NEUTROPHILS RELATIVE PERCENT (BEAKER) (test 61 % citw=922) LYMPHOCYTES RELATIVE PERCENT (BEAKER) (test 25 % evdv=017) MONOCYTES RELATIVE PERCENT (BEAKER) (test 6 % nexs=251) EOSINOPHILS RELATIVE PERCENT (BEAKER) (test 7 % bfzd=483) BASOPHILS RELATIVE PERCENT (BEAKER) (test 1 % tjog=045) NEUTROPHILS ABSOLUTE COUNT (BEAKER) (test 4.69 K/ L 1.78-5.38 nafe=623) LYMPHOCYTES ABSOLUTE COUNT (BEAKER) (test 1.88 K/ L 1.32-3.57 ngcc=659) MONOCYTES ABSOLUTE COUNT (BEAKER) (test 0.45 K/ L 0.30-0.82 vaij=593) EOSINOPHILS ABSOLUTE COUNT (BEAKER) (test 0.55 K/ L 0.04-0.54 iruk=392) BASOPHILS ABSOLUTE COUNT (BEAKER) (test 0.05 K/ L 0.01-0.08 tnnp=765) IMMATURE GRANULOCYTES-RELATIVE PERCENT (BEAKER) 0 % 0-1 (test nqia=2048) CALCIUM, [id number] 09:39:00 Test Item Value Reference Range Comments CALCIUM IONIZED (BEAKER) (test ypyp=230) 1.12 mmol/L 1.12-1.27 PH, BLOOD (BEAKER) (test mxzx=8711) 7.33 POCT-GLUCOSE [id number] 07:56:00 Test Item Value Reference Range Comments POC-GLUCOSE METER (BEAKER) 186 mg/dL 70-110 TESTED AT [address] (test ynlt=4542) [facility] [address] POCT-GLUCOSE [id number] 20:37:00 Test Item Value Reference Range Comments POC-GLUCOSE METER (BEAKER) 225 mg/dL 70-110 TESTED AT [address] (test xepq=9754) [facility] [address] POCT-GLUCOSE [id number] 18:21:00 Test Item Value Reference Range Comments POC-GLUCOSE METER (BEAKER) 234 mg/dL 70-110 TESTED AT [address] (test siof=7008) [facility] [address] PUL PERF IMAGING, PARTIC, [id number] 12:25:00FINAL REPORT PROCEDURE: V/Q LUNG SCAN CPT CODE: [id number] INDICATION: Acute chest pain PROTOCOL: 10.7 mCi [...] Verified Date/Time: 11/24/2018 12: 25:50 Reading Location: [address] Reading Room POCT- GLUCOSE [id number] 11:33:00 Test Item Value Reference Range Comments POC-GLUCOSE METER (BEAKER) 220 mg/dL 70-110 TESTED AT [address] (test iwop=4859) [facility] [address] CELIAC DISEASE [id number] 09:20:00 Test Item Value Reference Range Comments SCAN RESULT (test hpoc=[id number]) CELIAC DISEASE PROFILE Refer to Celiac Disease AUTOVERIFICATION (QUEST) (test Panel results. pqou=[id number]) POCT-GLUCOSE [id number] 07:46:00 Test Item Value Reference Range Comments POC-GLUCOSE METER (BEAKER) 162 mg/dL 70-110 TESTED AT [address] (test dqsh=1474) [place] [id number] CALCIUM, [id number] 07:34:00 Test Item Value Reference Range Comments CALCIUM IONIZED (BEAKER) (test vyfq=734) 1.09 mmol/L 1.12-1.27 PH, BLOOD (BEAKER) (test edev=3526) 7.44 [id number] 06:31:00 Test Item Value Reference Range Comments PHOSPHORUS (BEAKER) (test egcq=121) 2.6 mg/dL 2.3-4.7 [id number] 06:31:00 Test Item Value Reference Range Comments MAGNESIUM (BEAKER) (test qoti=611) 1.8 mg/dL 1.6-2.6 COMPREHENSIVE METABOLIC [id number] 06:31:00 Test Item Value Reference Range Comments TOTAL PROTEIN (BEAKER) 5.7 gm/dL 6.0-8.3 (test mzsd=446) ALBUMIN (BEAKER) (test 3.0 g/dL 3.5-5.0 uwkn=2850) ALKALINE PHOSPHATASE 50 U/L 40-150 (BEAKER) (test dxwy=168) BILIRUBIN TOTAL (BEAKER) 0.4 mg/dL 0.2-1.2 (test ugym=661) SODIUM (BEAKER) (test 141 meq/L 136-145 qogq=570) POTASSIUM (BEAKER) (test 3.0 meq/L 3.5-5.1 laha=656) CHLORIDE (BEAKER) (test 112 meq/L 98-107 tbmr=893) CO2 (BEAKER) (test 19 meq/L 22-29 saxl=788) BLOOD UREA NITROGEN 28 mg/dL 7-21 (BEAKER) (test tauw=247) CREATININE (BEAKER) (test 1.65 mg/dL 0.57-1.25 etnj=813) GLUCOSE RANDOM (BEAKER) 132 mg/dL 70-105 (test dhbu=073) CALCIUM (BEAKER) (test 8.5 mg/dL 8.4-10.2 opjr=239) AST (SGOT) (BEAKER) (test 8 U/L 5-34 htsx=643) ALT (SGPT) (BEAKER) (test 8 U/L 6-55 kedd=703) EGFR (BEAKER) (test 41 mL/min/1.73 sq m ESTIMATED GFR IS NOT zenj=3453) ACCURATE CREATININE CLEARANCE IN PREDICTING GLOMERULAR FILTRATION RATE. ESTIMATED GFR IS NOT APPLICABLE FOR DIALYSIS PATIENTS. VANCOMYCIN LEVEL, [id number] 06:19:00 Test Item Value Reference Range Comments VANCOMYCIN TROUGH (BEAKER) (test cqoh=899) 17.7 ug/mL 10.0-20.0 Hold dose if trough >20 mcg/mlCBC W/PLT COUNT & AUTO [id number] 06:10:00 Test Item Value Reference Range Comments WHITE BLOOD CELL COUNT (BEAKER) (test dche=780) 12.2 K/ L 3.5-10.5 RED BLOOD CELL COUNT (BEAKER) (test hbjj=214) 3.03 M/ L 4.63-6.08 HEMOGLOBIN (BEAKER) (test gugi=902) 7.8 GM/DL 13.7-17.5 HEMATOCRIT (BEAKER) (test eieb=898) 25.8 % 40.1-51.0 MEAN CORPUSCULAR VOLUME (BEAKER) (test ahgk=643) 85.1 fL 79.0-92.2 MEAN CORPUSCULAR HEMOGLOBIN (BEAKER) (test 25.7 pg 25.7-32.2 rzus=935) MEAN CORPUSCULAR HEMOGLOBIN CONC (BEAKER) (test 30.2 GM/DL 32.3-36.5 bzrq=232) RED CELL DISTRIBUTION WIDTH (BEAKER) (test 22.2 % 11.6-14.4 mrgy=839) PLATELET COUNT (BEAKER) (test ukes=372) 204 K/CU MM 150-450 MEAN PLATELET VOLUME (BEAKER) (test tent=696) 10.5 fL 9.4-12.4 NUCLEATED RED BLOOD CELLS (BEAKER) (test 0 /100 WBC 0-0 lfdv=836) NEUTROPHILS RELATIVE PERCENT (BEAKER) (test 74 % mkcm=323) LYMPHOCYTES RELATIVE PERCENT (BEAKER) (test 15 % wiqa=771) MONOCYTES RELATIVE PERCENT (BEAKER) (test 6 % yoap=812) EOSINOPHILS RELATIVE PERCENT (BEAKER) (test 5 % vbjp=490) BASOPHILS RELATIVE PERCENT (BEAKER) (test 0 % lnmb=917) NEUTROPHILS ABSOLUTE COUNT (BEAKER) (test 9.02 K/ L 1.78-5.38 pjzk=929) LYMPHOCYTES ABSOLUTE COUNT (BEAKER) (test 1.85 K/ L 1.32-3.57 wbhw=465) MONOCYTES ABSOLUTE COUNT (BEAKER) (test 0.67 K/ L 0.30-0.82 dqqx=130) EOSINOPHILS ABSOLUTE COUNT (BEAKER) (test 0.58 K/ L 0.04-0.54 aody=965) BASOPHILS ABSOLUTE COUNT (BEAKER) (test 0.03 K/ L 0.01-0.08 hlnn=024) IMMATURE GRANULOCYTES-RELATIVE PERCENT (BEAKER) 1 % 0-1 (test hacs=1430) POCT-GLUCOSE [id number] 21:24:00 Test Item Value Reference Range Comments POC-GLUCOSE METER (BEAKER) 227 mg/dL 70-110 TESTED AT [address] (test vdha=4123) [facility] [address] POCT-GLUCOSE [id number] 17:44:00 Test Item Value Reference Range Comments POC-GLUCOSE METER (BEAKER) 257 mg/dL 70-110 TESTED AT [address] (test bpkw=4217) [facility] [address] POCT-GLUCOSE [id number] 11:33:00 Test Item Value Reference Range Comments POC-GLUCOSE METER (BEAKER) 297 mg/dL 70-110 TESTED AT [address] (test kfde=2517) [facility] [address] POCT-GLUCOSE [id number] 07:49:00 Test Item Value Reference Range Comments POC-GLUCOSE METER (BEAKER) 185 mg/dL 70-110 TESTED AT [facility] [address] (test dffn=9494) [place] [address] CALCIUM, [id number] 07:30:00 Test Item Value Reference Range Comments CALCIUM IONIZED (BEAKER) (test wdjo=203) 1.05 mmol/L 1.12-1.27 PH, BLOOD (BEAKER) (test jktp=6881) 7.45 [id number] 06:25:00 Test Item Value Reference Range Comments PHOSPHORUS (BEAKER) (test tkta=424) 2.8 mg/dL 2.3-4.7 [id number] 06:25:00 Test Item Value Reference Range Comments MAGNESIUM (BEAKER) (test qcqc=406) 1.7 mg/dL 1.6-2.6 COMPREHENSIVE METABOLIC [id number] 06:25:00 Test Item Value Reference Range Comments TOTAL PROTEIN (BEAKER) 5.7 gm/dL 6.0-8.3 (test djir=654) ALBUMIN (BEAKER) (test 3.1 g/dL 3.5-5.0 oysk=5910) ALKALINE PHOSPHATASE 62 U/L 40-150 (BEAKER) (test pegg=745) BILIRUBIN TOTAL (BEAKER) 0.7 mg/dL 0.2-1.2 (test dkko=703) SODIUM (BEAKER) (test 136 meq/L 136-145 vdjr=698) POTASSIUM (BEAKER) (test 3.2 meq/L 3.5-5.1 ehrf=007) CHLORIDE (BEAKER) (test 108 meq/L 98-107 addu=158) CO2 (BEAKER) (test 18 meq/L 22-29 wcpv=105) BLOOD UREA NITROGEN 28 mg/dL 7-21 (BEAKER) (test fkxr=486) CREATININE (BEAKER) (test 2.10 mg/dL 0.57-1.25 mbae=567) GLUCOSE RANDOM (BEAKER) 156 mg/dL 70-105 (test qhyc=287) CALCIUM (BEAKER) (test 8.4 mg/dL 8.4-10.2 zppc=453) AST (SGOT) (BEAKER) (test 7 U/L 5-34 ojuv=151) ALT (SGPT) (BEAKER) (test 7 U/L 6-55 gstn=401) EGFR (BEAKER) (test 31 mL/min/1.73 sq m ESTIMATED GFR IS NOT armz=2936) ACCURATE CREATININE CLEARANCE IN PREDICTING GLOMERULAR FILTRATION RATE. ESTIMATED GFR IS NOT APPLICABLE FOR DIALYSIS PATIENTS. B-TYPE NATRIURETIC FACTOR (BNP)2018-11-23 06:20:00 Test Item Value Reference Range Comments B-TYPE NATRIURETIC PEPTIDE (BEAKER) (test 157 pg/mL 0-100 gmxv=628) CBC W/PLT COUNT & AUTO [id number] 05:56:00 Test Item Value Reference Range Comments WHITE BLOOD CELL COUNT (BEAKER) (test afra=314) 17.8 K/ L 3.5-10.5 RED BLOOD CELL COUNT (BEAKER) (test udbc=251) 3.25 M/ L 4.63-6.08 HEMOGLOBIN (BEAKER) (test twxu=668) 8.3 GM/DL 13.7-17.5 HEMATOCRIT (BEAKER) (test kthf=395) 27.1 % 40.1-51.0 MEAN CORPUSCULAR VOLUME (BEAKER) (test wism=200) 83.4 fL 79.0-92.2 MEAN CORPUSCULAR HEMOGLOBIN (BEAKER) (test 25.5 pg 25.7-32.2 jjcb=148) MEAN CORPUSCULAR HEMOGLOBIN CONC (BEAKER) (test 30.6 GM/DL 32.3-36.5 qlmh=603) RED CELL DISTRIBUTION WIDTH (BEAKER) (test 22.4 % 11.6-14.4 qjzo=651) PLATELET COUNT (BEAKER) (test yasc=781) 198 K/CU MM 150-450 MEAN PLATELET VOLUME (BEAKER) (test bhwv=934) 10.1 fL 9.4-12.4 NUCLEATED RED BLOOD CELLS (BEAKER) (test 0 /100 WBC 0-0 hswl=702) NEUTROPHILS RELATIVE PERCENT (BEAKER) (test 82 % zxbo=915) LYMPHOCYTES RELATIVE PERCENT (BEAKER) (test 10 % iqhl=128) MONOCYTES RELATIVE PERCENT (BEAKER) (test 6 % fkdv=765) EOSINOPHILS RELATIVE PERCENT (BEAKER) (test 1 % lczq=297) BASOPHILS RELATIVE PERCENT (BEAKER) (test 0 % qzxq=976) NEUTROPHILS ABSOLUTE COUNT (BEAKER) (test 14.60 K/ L 1.78-5.38 prvd=508) LYMPHOCYTES ABSOLUTE COUNT (BEAKER) (test 1.71 K/ L 1.32-3.57 huuq=601) MONOCYTES ABSOLUTE COUNT (BEAKER) (test 1.03 K/ L 0.30-0.82 mzqr=838) EOSINOPHILS ABSOLUTE COUNT (BEAKER) (test 0.22 K/ L 0.04-0.54 xwhk=963) BASOPHILS ABSOLUTE COUNT (BEAKER) (test 0.03 K/ L 0.01-0.08 fjes=244) IMMATURE GRANULOCYTES-RELATIVE PERCENT (BEAKER) 1 % 0-1 (test sehv=5336) CT, CHEST, WITHOUT [id number] 04:37:00Replaces exam w contrastFINAL REPORT EXAMINATION: Noncontrast [...] MDReport Verified Date/Time: 2018 04:37:26 Reading Location: [address] Reading Room LACTIC ACID , VENOUS, WHOLE [id number] 00:50:00 Test Item Value Reference Range Comments LACTATE BLOOD VENOUS (2) (BEAKER) (test 2.3 mmol/L 0.5-2.2 juid=4842) CBC W/PLT COUNT & AUTO [id number] 00:34:00 Test Item Value Reference Range Comments WHITE BLOOD CELL COUNT (BEAKER) (test seds=730) 19.5 K/ L 3.5-10.5 RED BLOOD CELL COUNT (BEAKER) (test wlkz=032) 3.63 M/ L 4.63-6.08 HEMOGLOBIN (BEAKER) (test dkce=825) 9.1 GM/DL 13.7-17.5 HEMATOCRIT (BEAKER) (test snrp=410) 31.0 % 40.1-51.0 MEAN CORPUSCULAR VOLUME (BEAKER) (test nasg=992) 85.4 fL 79.0-92.2 MEAN CORPUSCULAR HEMOGLOBIN (BEAKER) (test 25.1 pg 25.7-32.2 ddem=230) MEAN CORPUSCULAR HEMOGLOBIN CONC (BEAKER) (test 29.4 GM/DL 32.3-36.5 ndlk=230) RED CELL DISTRIBUTION WIDTH (BEAKER) (test 22.2 % 11.6-14.4 fnjf=293) PLATELET COUNT (BEAKER) (test ibto=971) 218 K/CU MM 150-450 MEAN PLATELET VOLUME (BEAKER) (test ltvz=521) 10.1 fL 9.4-12.4 NUCLEATED RED BLOOD CELLS (BEAKER) (test 0 /100 WBC 0-0 hehq=104) NEUTROPHILS RELATIVE PERCENT (BEAKER) (test 84 % zwhf=966) LYMPHOCYTES RELATIVE PERCENT (BEAKER) (test 7 % xoda=967) MONOCYTES RELATIVE PERCENT (BEAKER) (test 6 % vmir=988) EOSINOPHILS RELATIVE PERCENT (BEAKER) (test 1 % vlqe=869) BASOPHILS RELATIVE PERCENT (BEAKER) (test 0 % cxev=018) NEUTROPHILS ABSOLUTE COUNT (BEAKER) (test 16.28 K/ L 1.78-5.38 ieia=788) LYMPHOCYTES ABSOLUTE COUNT (BEAKER) (test 1.41 K/ L 1.32-3.57 vgvr=518) MONOCYTES ABSOLUTE COUNT (BEAKER) (test 1.16 K/ L 0.30-0.82 yozi=859) EOSINOPHILS ABSOLUTE COUNT (BEAKER) (test 0.18 K/ L 0.04-0.54 qapq=746) BASOPHILS ABSOLUTE COUNT (BEAKER) (test 0.06 K/ L 0.01-0.08 uslg=627) IMMATURE GRANULOCYTES-RELATIVE PERCENT (BEAKER) 2 % 0-1 (test sgop=4334) POCT-GLUCOSE [id number] 21:22:00 Test Item Value Reference Range Comments POC-GLUCOSE METER (BEAKER) 308 mg/dL 70-110 Will Repeat Test/TESTED AT (test wseo=7464) [place] [id number] POCT-GLUCOSE [id number] 17:17:00 Test Item Value Reference Range Comments POC-GLUCOSE METER (BEAKER) 274 mg/dL 70-110 TESTED AT [address] (test fgwx=7816) [place] [address] POCT-GLUCOSE [id number] 11:42:00 Test Item Value Reference Range Comments POC-GLUCOSE METER (BEAKER) 221 mg/dL 70-110 TESTED AT [address] (test pbyi=5653) [place] [address] POCT-GLUCOSE [id number] 07:49:00 Test Item Value Reference Range Comments POC-GLUCOSE METER (BEAKER) 211 mg/dL 70-110 TESTED AT [address] (test ywqw=3943) [place] [address] [id number] 07:40:00 Test Item Value Reference Range Comments MAGNESIUM (BEAKER) (test iyfd=951) 1.9 mg/dL 1.6-2.6 COMPREHENSIVE METABOLIC [id number] 07:40:00 Test Item Value Reference Range Comments TOTAL PROTEIN (BEAKER) 6.0 gm/dL 6.0-8.3 (test jtew=261) ALBUMIN (BEAKER) (test 3.4 g/dL 3.5-5.0 mfxg=4289) ALKALINE PHOSPHATASE 51 U/L 40-150 (BEAKER) (test bbtn=247) BILIRUBIN TOTAL (BEAKER) 0.5 mg/dL 0.2-1.2 (test uzxh=544) SODIUM (BEAKER) (test 137 meq/L 136-145 hqha=974) POTASSIUM (BEAKER) (test 3.5 meq/L 3.5-5.1 vpkm=197) CHLORIDE (BEAKER) (test 109 meq/L 98-107 ruwp=204) CO2 (BEAKER) (test 19 meq/L 22-29 pewr=503) BLOOD UREA NITROGEN 16 mg/dL 7-21 (BEAKER) (test hpto=345) CREATININE (BEAKER) (test 1.70 mg/dL 0.57-1.25 hrki=832) GLUCOSE RANDOM (BEAKER) 184 mg/dL 70-105 (test hrqk=375) CALCIUM (BEAKER) (test 8.7 mg/dL 8.4-10.2 lqsx=619) AST (SGOT) (BEAKER) (test 9 U/L 5-34 uzeh=130) ALT (SGPT) (BEAKER) (test 7 U/L 6-55 blzb=830) EGFR (BEAKER) (test 39 mL/min/1.73 sq m ESTIMATED GFR IS NOT emgu=1526) ACCURATE CREATININE CLEARANCE IN PREDICTING GLOMERULAR FILTRATION RATE. ESTIMATED GFR IS NOT APPLICABLE FOR DIALYSIS PATIENTS. [id number] 06:10:00 Test Item Value Reference Range Comments PHOSPHORUS (BEAKER) (test pwsu=291) 2.3 mg/dL 2.3-4.7 CALCIUM, [id number] 05:39:00 Test Item Value Reference Range Comments CALCIUM IONIZED (BEAKER) (test ffac=181) 1.09 mmol/L 1.12-1.27 PH, BLOOD (BEAKER) (test cwfw=3707) 7.47 COMPREHENSIVE METABOLIC [id number] 23:05:00 Test Item Value Reference Range Comments TOTAL PROTEIN (BEAKER) 6.4 gm/dL 6.0-8.3 (test uodk=496) ALBUMIN (BEAKER) (test 3.6 g/dL 3.5-5.0 fbxb=3895) ALKALINE PHOSPHATASE 60 U/L 40-150 (BEAKER) (test rqlg=948) BILIRUBIN TOTAL (BEAKER) 0.4 mg/dL 0.2-1.2 (test vvhu=428) SODIUM (BEAKER) (test 135 meq/L 136-145 nvsa=876) POTASSIUM (BEAKER) (test 3.5 meq/L 3.5-5.1 qmam=870) CHLORIDE (BEAKER) (test 107 meq/L 98-107 xxzk=950) CO2 (BEAKER) (test 19 meq/L 22-29 ymvq=577) BLOOD UREA NITROGEN 15 mg/dL 7-21 (BEAKER) (test oqbj=175) CREATININE (BEAKER) (test 1.31 mg/dL 0.57-1.25 vvga=668) GLUCOSE RANDOM (BEAKER) 173 mg/dL 70-105 (test ivkx=445) CALCIUM (BEAKER) (test 9.0 mg/dL 8.4-10.2 pnsv=490) AST (SGOT) (BEAKER) (test 9 U/L 5-34 yfha=886) ALT (SGPT) (BEAKER) (test 9 U/L 6-55 vrnl=360) EGFR (BEAKER) (test 53 mL/min/1.73 sq m ESTIMATED GFR IS NOT mthj=3614) ACCURATE CREATININE CLEARANCE IN PREDICTING GLOMERULAR FILTRATION RATE. ESTIMATED GFR IS NOT APPLICABLE FOR DIALYSIS PATIENTS. LACTIC ACID, VENOUS, WHOLE [id number] 22:58:00 Test Item Value Reference Range Comments LACTATE BLOOD VENOUS (2) (BEAKER) (test 1.3 mmol/L 0.5-2.2 pyjc=8644) CBC W/PLT COUNT & AUTO [id number] 22:42:00 Test Item Value Reference Range Comments WHITE BLOOD CELL COUNT (BEAKER) (test wgww=617) 14.8 K/ L 3.5-10.5 RED BLOOD CELL COUNT (BEAKER) (test dbwg=394) 3.94 M/ L 4.63-6.08 HEMOGLOBIN (BEAKER) (test dtzz=708) 10.1 GM/DL 13.7-17.5 HEMATOCRIT (BEAKER) (test heoq=395) 32.5 % 40.1-51.0 MEAN CORPUSCULAR VOLUME (BEAKER) (test cncu=595) 82.5 fL 79.0-92.2 MEAN CORPUSCULAR HEMOGLOBIN (BEAKER) (test 25.6 pg 25.7-32.2 bauf=807) MEAN CORPUSCULAR HEMOGLOBIN CONC (BEAKER) (test 31.1 GM/DL 32.3-36.5 lhyg=487) RED CELL DISTRIBUTION WIDTH (BEAKER) (test 21.4 % 11.6-14.4 nxuh=901) PLATELET COUNT (BEAKER) (test avbp=368) 266 K/CU MM 150-450 MEAN PLATELET VOLUME (BEAKER) (test hksw=018) 9.6 fL 9.4-12.4 NUCLEATED RED BLOOD CELLS (BEAKER) (test 0 /100 WBC 0-0 tups=653) NEUTROPHILS RELATIVE PERCENT (BEAKER) (test 90 % ldhv=855) LYMPHOCYTES RELATIVE PERCENT (BEAKER) (test 5 % yaey=274) MONOCYTES RELATIVE PERCENT (BEAKER) (test 4 % zsls=837) EOSINOPHILS RELATIVE PERCENT (BEAKER) (test 0 % hjnv=176) BASOPHILS RELATIVE PERCENT (BEAKER) (test 0 % wbfp=473) NEUTROPHILS ABSOLUTE COUNT (BEAKER) (test 13.29 K/ L 1.78-5.38 zfkp=562) LYMPHOCYTES ABSOLUTE COUNT (BEAKER) (test 0.79 K/ L 1.32-3.57 xlfk=334) MONOCYTES ABSOLUTE COUNT (BEAKER) (test 0.63 K/ L 0.30-0.82 scku=903) EOSINOPHILS ABSOLUTE COUNT (BEAKER) (test 0.06 K/ L 0.04-0.54 fisl=574) BASOPHILS ABSOLUTE COUNT (BEAKER) (test 0.02 K/ L 0.01-0.08 wywm=852) IMMATURE GRANULOCYTES-RELATIVE PERCENT (BEAKER) 0 % 0-1 (test pbwl=4805) RAD, CHEST, 1 VIEW, NON [id number] 22:14:00Reason for exam:-> wheezingShould this be performed [...] Verified Date/ Time: 11/21/2018 22:14:36 Reading Location: [address] Reading Room 10: 14PMPOCT-GLUCOSE [id number] 21:43:00 Test Item Value Reference Range Comments POC-GLUCOSE METER (BEAKER) 195 mg/dL 70-110 TESTED AT [address] (test zieh=3575) [place] [id number] POCT-GLUCOSE [id number] 17:48:00 Test Item Value Reference Range Comments POC-GLUCOSE METER (BEAKER) 186 mg/dL 70-110 TESTED AT [address] (test vcor=5386) [place] [id number] POCT-GLUCOSE [id number] 11:43:00 Test Item Value Reference Range Comments POC-GLUCOSE METER (BEAKER) 321 mg/dL 70-110 TESTED AT [address] (test czep=6336) [place] [id number] POCT-GLUCOSE [id number] 07:57:00 Test Item Value Reference Range Comments POC-GLUCOSE METER (BEAKER) 185 mg/dL 70-110 TESTED AT [address] (test jzzj=6183) [place] [address] [id number] 07:46:00 Test Item Value Reference Range Comments PHOSPHORUS (BEAKER) (test ugrm=229) 2.2 mg/dL 2.3-4.7 [id number] 07:46:00 Test Item Value Reference Range Comments MAGNESIUM (BEAKER) (test mzmz=872) 1.7 mg/dL 1.6-2.6 BASIC METABOLIC [id number] 07:46:00 Test Item Value Reference Range Comments SODIUM (BEAKER) (test 139 meq/L 136-145 onze=494) POTASSIUM (BEAKER) (test 3.3 meq/L 3.5-5.1 udjf=923) CHLORIDE (BEAKER) (test 108 meq/L 98-107 xpiu=930) CO2 (BEAKER) (test 20 meq/L 22-29 cetk=196) BLOOD UREA NITROGEN 15 mg/dL 7-21 (BEAKER) (test ipvm=965) CREATININE (BEAKER) (test 1.26 mg/dL 0.57-1.25 skyf=731) GLUCOSE RANDOM (BEAKER) 117 mg/dL 70-105 (test npiw=518) CALCIUM (BEAKER) (test 8.9 mg/dL 8.4-10.2 vpgd=629) EGFR (BEAKER) (test 56 mL/min/1.73 sq m ESTIMATED GFR IS NOT rnzj=1259) ACCURATE CREATININE CLEARANCE IN PREDICTING GLOMERULAR FILTRATION RATE. ESTIMATED GFR IS NOT APPLICABLE FOR DIALYSIS PATIENTS. CBC W/PLT COUNT & AUTO [id number] 07:14:00 Test Item Value Reference Range Comments WHITE BLOOD CELL COUNT (BEAKER) (test tvzi=731) 8.6 K/ L 3.5-10.5 RED BLOOD CELL COUNT (BEAKER) (test oqhh=530) 3.49 M/ L 4.63-6.08 HEMOGLOBIN (BEAKER) (test dqxk=048) 8.9 GM/DL 13.7-17.5 HEMATOCRIT (BEAKER) (test zzne=890) 29.5 % 40.1-51.0 MEAN CORPUSCULAR VOLUME (BEAKER) (test sgoz=524) 84.5 fL 79.0-92.2 MEAN CORPUSCULAR HEMOGLOBIN (BEAKER) (test 25.5 pg 25.7-32.2 ckio=037) MEAN CORPUSCULAR HEMOGLOBIN CONC (BEAKER) (test 30.2 GM/DL 32.3-36.5 zbnz=160) RED CELL DISTRIBUTION WIDTH (BEAKER) (test 21.2 % 11.6-14.4 vqyn=182) PLATELET COUNT (BEAKER) (test utpq=841) 269 K/CU MM 150-450 MEAN PLATELET VOLUME (BEAKER) (test gwvc=388) 11.3 fL 9.4-12.4 NUCLEATED RED BLOOD CELLS (BEAKER) (test 0 /100 WBC 0-0 ycye=541) NEUTROPHILS RELATIVE PERCENT (BEAKER) (test 63 % pzfk=301) LYMPHOCYTES RELATIVE PERCENT (BEAKER) (test 27 % popv=525) MONOCYTES RELATIVE PERCENT (BEAKER) (test 6 % pzjt=992) EOSINOPHILS RELATIVE PERCENT (BEAKER) (test 4 % cvno=430) BASOPHILS RELATIVE PERCENT (BEAKER) (test 1 % zeqb=539) NEUTROPHILS ABSOLUTE COUNT (BEAKER) (test 5.40 K/ L 1.78-5.38 ygwt=260) LYMPHOCYTES ABSOLUTE COUNT (BEAKER) (test 2.30 K/ L 1.32-3.57 qcln=729) MONOCYTES ABSOLUTE COUNT (BEAKER) (test 0.52 K/ L 0.30-0.82 yoml=021) EOSINOPHILS ABSOLUTE COUNT (BEAKER) (test 0.33 K/ L 0.04-0.54 wrjv=146) BASOPHILS ABSOLUTE COUNT (BEAKER) (test 0.06 K/ L 0.01-0.08 zoiy=927) IMMATURE GRANULOCYTES-RELATIVE PERCENT (BEAKER) 0 % 0-1 (test yaiv=1723) CALCIUM, [id number] 05:37:00 Test Item Value Reference Range Comments CALCIUM IONIZED (BEAKER) (test gvqu=052) 1.09 mmol/L 1.12-1.27 PH, BLOOD (BEAKER) (test mlct=3630) 7.45 POCT-GLUCOSE [id number] 20:52:00 Test Item Value Reference Range Comments POC-GLUCOSE METER (BEAKER) 134 mg/dL 70-110 TESTED AT [address] (test hflu=6367) [facility] [address] CT, ABDOMEN, RENAL MASS, CYST [id number] 15:11:00Reason for exam:-> right renal massFINAL REPORT [...] MDReport Verified Date/Time: 11/20/2018 15:11:56 Reading Location: [facility] C013Y CT Body Reading Room 03: 11 PMPOCT-GLUCOSE [id number] 12:13:00 Test Item Value Reference Range Comments POC-GLUCOSE METER (BEAKER) 221 mg/dL 70-110 TESTED AT [address] (test oqmc=7048) [facility] [address] POCT-GLUCOSE [id number] 12:10:00 Test Item Value Reference Range Comments POC-GLUCOSE METER (BEAKER) 148 mg/dL 70-110 TESTED AT [address] (test knat=5992) [facility] [address] [id number] 05:52:00 Test Item Value Reference Range Comments MAGNESIUM (BEAKER) (test 2.0 mg/dL 1.6-2.6 Specimen slightly hemolyzed bgmh=380) [id number] 05:52:00 Test Item Value Reference Range Comments PHOSPHORUS (BEAKER) (test 2.2 mg/dL 2.3-4.7 Specimen slightly hemolyzed cikk=726) BASIC METABOLIC [id number] 05:52:00 Test Item Value Reference Range Comments SODIUM (BEAKER) (test 141 meq/L 136-145 wcji=346) POTASSIUM (BEAKER) (test 3.7 meq/L 3.5-5.1 Specimen slightly fpuu=886) hemolyzed CHLORIDE (BEAKER) (test 111 meq/L 98-107 rkgn=623) CO2 (BEAKER) (test 19 meq/L 22-29 bmnj=418) BLOOD UREA NITROGEN 18 mg/dL 7-21 (BEAKER) (test huin=505) CREATININE (BEAKER) (test 1.33 mg/dL 0.57-1.25 Specimen slightly pviw=076) hemolyzed GLUCOSE RANDOM (BEAKER) 133 mg/dL 70-105 (test mvtd=866) CALCIUM (BEAKER) (test 9.1 mg/dL 8.4-10.2 nfrk=696) EGFR (BEAKER) (test 52 mL/min/1.73 sq m ESTIMATED GFR IS NOT jrop=4996) ACCURATE CREATININE CLEARANCE IN PREDICTING GLOMERULAR FILTRATION RATE. ESTIMATED GFR IS NOT APPLICABLE FOR DIALYSIS PATIENTS. CALCIUM, [id number] 05:46:00 Test Item Value Reference Range Comments CALCIUM IONIZED (BEAKER) (test ygvf=612) 1.07 mmol/L 1.12-1.27 PH, BLOOD (BEAKER) (test sjcg=7341) 7.45 CBC W/PLT COUNT & AUTO [id number] 05:45:00 Test Item Value Reference Range Comments WHITE BLOOD CELL COUNT (BEAKER) (test vako=433) 9.4 K/ L 3.5-10.5 RED BLOOD CELL COUNT (BEAKER) (test phto=205) 3.59 M/ L 4.63-6.08 HEMOGLOBIN (BEAKER) (test wtdd=221) 8.9 GM/DL 13.7-17.5 HEMATOCRIT (BEAKER) (test nohi=902) 30.6 % 40.1-51.0 MEAN CORPUSCULAR VOLUME (BEAKER) (test lnup=185) 85.2 fL 79.0-92.2 MEAN CORPUSCULAR HEMOGLOBIN (BEAKER) (test 24.8 pg 25.7-32.2 kspd=985) MEAN CORPUSCULAR HEMOGLOBIN CONC (BEAKER) (test 29.1 GM/DL 32.3-36.5 qptu=559) RED CELL DISTRIBUTION WIDTH (BEAKER) (test 20.9 % 11.6-14.4 cjmw=731) PLATELET COUNT (BEAKER) (test cted=725) 300 K/CU MM 150-450 MEAN PLATELET VOLUME (BEAKER) (test hlol=654) 9.9 fL 9.4-12.4 NUCLEATED RED BLOOD CELLS (BEAKER) (test 0 /100 WBC 0-0 jlfs=168) NEUTROPHILS RELATIVE PERCENT (BEAKER) (test 68 % roek=623) LYMPHOCYTES RELATIVE PERCENT (BEAKER) (test 23 % tjab=916) MONOCYTES RELATIVE PERCENT (BEAKER) (test 5 % opvn=604) EOSINOPHILS RELATIVE PERCENT (BEAKER) (test 3 % smex=352) BASOPHILS RELATIVE PERCENT (BEAKER) (test 1 % dcyo=579) NEUTROPHILS ABSOLUTE COUNT (BEAKER) (test 6.38 K/ L 1.78-5.38 gwsq=974) LYMPHOCYTES ABSOLUTE COUNT (BEAKER) (test 2.18 K/ L 1.32-3.57 znxm=399) MONOCYTES ABSOLUTE COUNT (BEAKER) (test 0.50 K/ L 0.30-0.82 qfje=312) EOSINOPHILS ABSOLUTE COUNT (BEAKER) (test 0.28 K/ L 0.04-0.54 fjpj=728) BASOPHILS ABSOLUTE COUNT (BEAKER) (test 0.05 K/ L 0.01-0.08 eetu=141) IMMATURE GRANULOCYTES-RELATIVE PERCENT (BEAKER) 0 % 0-1 (test rdkw=1619) RAD, ABDOMEN/KUB, 1 VIEW [id number] 00:47:00Reason for exam:->placement of dobhoff tube, thanksFINAL REPORT EXAMINATION: SUPINE ABDOMEN CLINICAL INDICATION: FEEDING TUBE PLACEMENT IMPRESSION: Tip of the feeding tube projects over the left upper abdomen in the region of the stomach. Signed: Myron Kennycox branson Verified Date/Time: 11/20/2018 00:47:19 Reading Location: [address] Reading Room POCT-GLUCOSE [id number] 20:52:00 Test Item Value Reference Range Comments POC-GLUCOSE METER (BEAKER) 150 mg/dL 70-110 TESTED AT [address] (test ljhc=8634) [facility] [address] POCT-GLUCOSE [id number] 19:47:00 Test Item Value Reference Range Comments POC-GLUCOSE METER (BEAKER) 179 mg/dL 70-110 TESTED AT [address] (test kcbt=1744) [facility] [address] RAD, CHEST, 1 VIEW, NON [id number] 18:19:00After EGDReason for exam:->NG tube placementShould this [...] Verified Date/ Time: 11/19/2018 18:19:18 Reading Location: [facility] Radiology Reading Room POCT-GLUCOSE [id number] 16:55:00 Test Item Value Reference Range Comments POC-GLUCOSE METER (BEAKER) 172 mg/dL 70-110 TESTED AT [address] (test bnur=9857) [place] [id number] POCT-GLUCOSE [id number] 11:56:00 Test Item Value Reference Range Comments POC-GLUCOSE METER (BEAKER) 158 mg/dL 70-110 TESTED AT [address] (test jkvk=4249) [place] [id number] POCT-GLUCOSE [id number] 07:17:00 Test Item Value Reference Range Comments POC-GLUCOSE METER (BEAKER) 142 mg/dL 70-110 TESTED AT [address] (test vacn=1676) [place] [address] [id number] 06:49:00 Test Item Value Reference Range Comments PHOSPHORUS (BEAKER) (test cyhy=236) 2.4 mg/dL 2.3-4.7 [id number] 06:49:00 Test Item Value Reference Range Comments MAGNESIUM (BEAKER) (test giki=103) 1.7 mg/dL 1.6-2.6 BASIC METABOLIC [id number] 06:49:00 Test Item Value Reference Range Comments SODIUM (BEAKER) (test 144 meq/L 136-145 imfb=510) POTASSIUM (BEAKER) (test 3.4 meq/L 3.5-5.1 ifxb=156) CHLORIDE (BEAKER) (test 111 meq/L 98-107 yysy=140) CO2 (BEAKER) (test 24 meq/L 22-29 pcfj=528) BLOOD UREA NITROGEN 19 mg/dL 7-21 (BEAKER) (test vjhd=358) CREATININE (BEAKER) (test 1.35 mg/dL 0.57-1.25 peok=341) GLUCOSE RANDOM (BEAKER) 139 mg/dL 70-105 (test pjpw=116) CALCIUM (BEAKER) (test 9.4 mg/dL 8.4-10.2 xkcy=592) EGFR (BEAKER) (test 52 mL/min/1.73 sq m ESTIMATED GFR IS NOT pskx=0581) ACCURATE CREATININE CLEARANCE IN PREDICTING GLOMERULAR FILTRATION RATE. ESTIMATED GFR IS NOT APPLICABLE FOR DIALYSIS PATIENTS. CBC W/PLT COUNT & AUTO [id number] 06:48:00 Test Item Value Reference Range Comments WHITE BLOOD CELL COUNT (BEAKER) (test xlpq=938) 9.0 K/ L 3.5-10.5 RED BLOOD CELL COUNT (BEAKER) (test qsry=047) 3.60 M/ L 4.63-6.08 HEMOGLOBIN (BEAKER) (test wnls=016) 9.0 GM/DL 13.7-17.5 HEMATOCRIT (BEAKER) (test lrvm=133) 29.9 % 40.1-51.0 MEAN CORPUSCULAR VOLUME (BEAKER) (test hkkc=421) 83.1 fL 79.0-92.2 MEAN CORPUSCULAR HEMOGLOBIN (BEAKER) (test 25.0 pg 25.7-32.2 bxwi=187) MEAN CORPUSCULAR HEMOGLOBIN CONC (BEAKER) (test 30.1 GM/DL 32.3-36.5 brxv=870) RED CELL DISTRIBUTION WIDTH (BEAKER) (test 20.1 % 11.6-14.4 cprt=483) PLATELET COUNT (BEAKER) (test sjlm=280) 342 K/CU MM 150-450 MEAN PLATELET VOLUME (BEAKER) (test mvzp=575) 9.6 fL 9.4-12.4 NUCLEATED RED BLOOD CELLS (BEAKER) (test 0 /100 WBC 0-0 bdth=232) NEUTROPHILS RELATIVE PERCENT (BEAKER) (test 69 % jasr=929) LYMPHOCYTES RELATIVE PERCENT (BEAKER) (test 22 % olfu=756) MONOCYTES RELATIVE PERCENT (BEAKER) (test 6 % dwjs=337) EOSINOPHILS RELATIVE PERCENT (BEAKER) (test 2 % psll=148) BASOPHILS RELATIVE PERCENT (BEAKER) (test 1 % udlu=133) NEUTROPHILS ABSOLUTE COUNT (BEAKER) (test 6.19 K/ L 1.78-5.38 udap=692) LYMPHOCYTES ABSOLUTE COUNT (BEAKER) (test 1.99 K/ L 1.32-3.57 pxze=896) MONOCYTES ABSOLUTE COUNT (BEAKER) (test 0.52 K/ L 0.30-0.82 yyoj=893) EOSINOPHILS ABSOLUTE COUNT (BEAKER) (test 0.18 K/ L 0.04-0.54 sdmr=126) BASOPHILS ABSOLUTE COUNT (BEAKER) (test 0.06 K/ L 0.01-0.08 sclp=523) IMMATURE GRANULOCYTES-RELATIVE PERCENT (BEAKER) 0 % 0-1 (test ganq=2432) POCT-GLUCOSE [id number] 21:23:00 Test Item Value Reference Range Comments POC-GLUCOSE METER (BEAKER) 172 mg/dL 70-110 TESTED AT [address] (test ddic=7388) [place] [id number] POCT-GLUCOSE [id number] 11:34:00 Test Item Value Reference Range Comments POC-GLUCOSE METER (BEAKER) 187 mg/dL 70-110 TESTED AT [address] (test fpln=3199) [place] [id number] POCT-GLUCOSE [id number] 07:51:00 Test Item Value Reference Range Comments POC-GLUCOSE METER (BEAKER) 192 mg/dL 70-110 TESTED AT [address] (test ikip=0392) [place] [id number] CALCIUM, [id number] 06:19:00 Test Item Value Reference Range Comments CALCIUM IONIZED (BEAKER) (test ecok=653) 1.13 mmol/L 1.12-1.27 PH, BLOOD (BEAKER) (test wjni=5825) 7.43 [id number] 06:03:00 Test Item Value Reference Range Comments PHOSPHORUS (BEAKER) (test weog=013) 2.5 mg/dL 2.3-4.7 [id number] 06:03:00 Test Item Value Reference Range Comments MAGNESIUM (BEAKER) (test aclo=826) 1.5 mg/dL 1.6-2.6 BASIC METABOLIC [id number] 06:03:00 Test Item Value Reference Range Comments SODIUM (BEAKER) (test 140 meq/L 136-145 dmgg=662) POTASSIUM (BEAKER) (test 3.6 meq/L 3.5-5.1 qcyj=768) CHLORIDE (BEAKER) (test 108 meq/L 98-107 zucg=827) CO2 (BEAKER) (test 22 meq/L 22-29 xhid=564) BLOOD UREA NITROGEN 21 mg/dL 7-21 (BEAKER) (test urus=659) CREATININE (BEAKER) (test 1.40 mg/dL 0.57-1.25 ispo=693) GLUCOSE RANDOM (BEAKER) 158 mg/dL 70-105 (test paeh=106) CALCIUM (BEAKER) (test 9.1 mg/dL 8.4-10.2 tcpk=514) EGFR (BEAKER) (test 49 mL/min/1.73 sq m ESTIMATED GFR IS NOT gdjh=0219) ACCURATE CREATININE CLEARANCE IN PREDICTING GLOMERULAR FILTRATION RATE. ESTIMATED GFR IS NOT APPLICABLE FOR DIALYSIS PATIENTS. CBC W/PLT COUNT & AUTO [id number] 05:41:00 Test Item Value Reference Range Comments WHITE BLOOD CELL COUNT (BEAKER) (test bapo=380) 10.1 K/ L 3.5-10.5 RED BLOOD CELL COUNT (BEAKER) (test jczm=493) 3.56 M/ L 4.63-6.08 HEMOGLOBIN (BEAKER) (test gpjh=534) 8.8 GM/DL 13.7-17.5 HEMATOCRIT (BEAKER) (test tonl=365) 29.6 % 40.1-51.0 MEAN CORPUSCULAR VOLUME (BEAKER) (test gtga=320) 83.1 fL 79.0-92.2 MEAN CORPUSCULAR HEMOGLOBIN (BEAKER) (test 24.7 pg 25.7-32.2 ziqs=839) MEAN CORPUSCULAR HEMOGLOBIN CONC (BEAKER) (test 29.7 GM/DL 32.3-36.5 tvgh=579) RED CELL DISTRIBUTION WIDTH (BEAKER) (test 19.7 % 11.6-14.4 xurm=519) PLATELET COUNT (BEAKER) (test ridu=751) 337 K/CU MM 150-450 MEAN PLATELET VOLUME (BEAKER) (test gniy=231) 10.3 fL 9.4-12.4 NUCLEATED RED BLOOD CELLS (BEAKER) (test 0 /100 WBC 0-0 prdr=463) NEUTROPHILS RELATIVE PERCENT (BEAKER) (test 69 % lokg=307) LYMPHOCYTES RELATIVE PERCENT (BEAKER) (test 21 % rypc=538) MONOCYTES RELATIVE PERCENT (BEAKER) (test 6 % rkpy=072) EOSINOPHILS RELATIVE PERCENT (BEAKER) (test 2 % uorc=202) BASOPHILS RELATIVE PERCENT (BEAKER) (test 1 % cesz=483) NEUTROPHILS ABSOLUTE COUNT (BEAKER) (test 6.98 K/ L 1.78-5.38 hjxv=132) LYMPHOCYTES ABSOLUTE COUNT (BEAKER) (test 2.13 K/ L 1.32-3.57 aiuz=961) MONOCYTES ABSOLUTE COUNT (BEAKER) (test 0.65 K/ L 0.30-0.82 ttii=876) EOSINOPHILS ABSOLUTE COUNT (BEAKER) (test 0.20 K/ L 0.04-0.54 rlst=458) BASOPHILS ABSOLUTE COUNT (BEAKER) (test 0.05 K/ L 0.01-0.08 gsjz=413) IMMATURE GRANULOCYTES-RELATIVE PERCENT (BEAKER) 1 % 0-1 (test ujsw=2644) POCT-GLUCOSE [id number] 21:32:00 Test Item Value Reference Range Comments POC-GLUCOSE METER (BEAKER) 187 mg/dL 70-110 TESTED AT [address] (test fral=1861) [place] [address] POCT-GLUCOSE [id number] 17:16:00 Test Item Value Reference Range Comments POC-GLUCOSE METER (BEAKER) 174 mg/dL 70-110 TESTED AT [address] (test ctqb=9706) [place] [address] POCT-GLUCOSE [id number] 11:52:00 Test Item Value Reference Range Comments POC-GLUCOSE METER (BEAKER) 172 mg/dL 70-110 TESTED AT [address] (test cpfy=7763) [place] [address] BASIC METABOLIC [id number] 09:39:00 Test Item Value Reference Range Comments SODIUM (BEAKER) (test 140 meq/L 136-145 iqwr=640) POTASSIUM (BEAKER) (test 3.9 meq/L 3.5-5.1 kxxq=221) CHLORIDE (BEAKER) (test 109 meq/L 98-107 bwzn=478) CO2 (BEAKER) (test 20 meq/L 22-29 dkmf=979) BLOOD UREA NITROGEN 20 mg/dL 7-21 (BEAKER) (test idqn=311) CREATININE (BEAKER) (test 1.47 mg/dL 0.57-1.25 nceo=902) GLUCOSE RANDOM (BEAKER) 138 mg/dL 70-105 (test pdzc=072) CALCIUM (BEAKER) (test 9.3 mg/dL 8.4-10.2 iyhw=692) EGFR (BEAKER) (test 47 mL/min/1.73 sq m ESTIMATED GFR IS NOT vixu=0830) ACCURATE CREATININE CLEARANCE IN PREDICTING GLOMERULAR FILTRATION RATE. ESTIMATED GFR IS NOT APPLICABLE FOR DIALYSIS PATIENTS. CBC (HEMOGRAM ONLY)2018-11-17 09:22:00 Test Item Value Reference Range Comments WHITE BLOOD CELL COUNT (BEAKER) (test ckrb=414) 9.9 K/ L 3.5-10.5 RED BLOOD CELL COUNT (BEAKER) (test syqr=421) 3.62 M/ L 4.63-6.08 HEMOGLOBIN (BEAKER) (test zbif=688) 8.9 GM/DL 13.7-17.5 HEMATOCRIT (BEAKER) (test nkkx=008) 29.9 % 40.1-51.0 MEAN CORPUSCULAR VOLUME (BEAKER) (test ikzj=053) 82.6 fL 79.0-92.2 MEAN CORPUSCULAR HEMOGLOBIN (BEAKER) (test 24.6 pg 25.7-32.2 deyc=508) MEAN CORPUSCULAR HEMOGLOBIN CONC (BEAKER) (test 29.8 GM/DL 32.3-36.5 gzgg=664) RED CELL DISTRIBUTION WIDTH (BEAKER) (test 19.4 % 11.6-14.4 inbj=202) PLATELET COUNT (BEAKER) (test emis=749) 364 K/CU MM 150-450 MEAN PLATELET VOLUME (BEAKER) (test yfvl=356) 9.4 fL 9.4-12.4 NUCLEATED RED BLOOD CELLS (BEAKER) (test 0 /100 WBC 0-0 zfaj=720) POCT-GLUCOSE [id number] 07:54:00 Test Item Value Reference Range Comments POC-GLUCOSE METER (BEAKER) 140 mg/dL 70-110 TESTED AT [address] (test cswx=1913) [facility] [address] POCT-GLUCOSE [id number] 20:01:00 Test Item Value Reference Range Comments POC-GLUCOSE METER (BEAKER) 176 mg/dL 70-110 TESTED AT [address] (test ywbq=8627) [facility] [address] POCT-GLUCOSE [id number] 17:51:00 Test Item Value Reference Range Comments POC-GLUCOSE METER (BEAKER) 168 mg/dL 70-110 TESTED AT [address] (test peif=5652) [facility] [address] POCT-GLUCOSE [id number] 11:41:00 Test Item Value Reference Range Comments POC-GLUCOSE METER (BEAKER) 164 mg/dL 70-110 TESTED AT [address] (test yins=6411) [facility] [address] POCT-GLUCOSE [id number] 08:13:00 Test Item Value Reference Range Comments POC-GLUCOSE METER (BEAKER) 161 mg/dL 70-110 TESTED AT [address] (test ihoz=9028) [facility] [address] COMPREHENSIVE METABOLIC [id number] 05:49:00 Test Item Value Reference Range Comments TOTAL PROTEIN (BEAKER) 7.0 gm/dL 6.0-8.3 (test bhih=096) ALBUMIN (BEAKER) (test 3.8 g/dL 3.5-5.0 yxew=4745) ALKALINE PHOSPHATASE 70 U/L 40-150 (BEAKER) (test kbuc=646) BILIRUBIN TOTAL (BEAKER) 0.4 mg/dL 0.2-1.2 (test vvef=878) SODIUM (BEAKER) (test 139 meq/L 136-145 imlk=015) POTASSIUM (BEAKER) (test 3.8 meq/L 3.5-5.1 utyr=796) CHLORIDE (BEAKER) (test 107 meq/L 98-107 orjh=979) CO2 (BEAKER) (test 22 meq/L 22-29 fmgo=716) BLOOD UREA NITROGEN 19 mg/dL 7-21 (BEAKER) (test dtdr=932) CREATININE (BEAKER) (test 1.66 mg/dL 0.57-1.25 kggg=058) GLUCOSE RANDOM (BEAKER) 137 mg/dL 70-105 (test givh=147) CALCIUM (BEAKER) (test 9.6 mg/dL 8.4-10.2 agdz=991) AST (SGOT) (BEAKER) (test 9 U/L 5-34 nwfr=252) ALT (SGPT) (BEAKER) (test 10 U/L 6-55 imeo=813) EGFR (BEAKER) (test 41 mL/min/1.73 sq m ESTIMATED GFR IS NOT gsta=0250) ACCURATE CREATININE CLEARANCE IN PREDICTING GLOMERULAR FILTRATION RATE. ESTIMATED GFR IS NOT APPLICABLE FOR DIALYSIS PATIENTS. CBC (HEMOGRAM ONLY)2018-11-16 05:28:00 Test Item Value Reference Range Comments WHITE BLOOD CELL COUNT (BEAKER) (test dtkm=501) 11.1 K/ L 3.5-10.5 RED BLOOD CELL COUNT (BEAKER) (test lujp=180) 3.57 M/ L 4.63-6.08 HEMOGLOBIN (BEAKER) (test mpwj=946) 8.8 GM/DL 13.7-17.5 HEMATOCRIT (BEAKER) (test pkck=007) 29.4 % 40.1-51.0 MEAN CORPUSCULAR VOLUME (BEAKER) (test ohpv=236) 82.4 fL 79.0-92.2 MEAN CORPUSCULAR HEMOGLOBIN (BEAKER) (test 24.6 pg 25.7-32.2 chmb=086) MEAN CORPUSCULAR HEMOGLOBIN CONC (BEAKER) (test 29.9 GM/DL 32.3-36.5 catn=967) RED CELL DISTRIBUTION WIDTH (BEAKER) (test 19.0 % 11.6-14.4 ksii=006) PLATELET COUNT (BEAKER) (test ryvt=471) 381 K/CU MM 150-450 MEAN PLATELET VOLUME (BEAKER) (test cuov=418) 9.7 fL 9.4-12.4 NUCLEATED RED BLOOD CELLS (BEAKER) (test 0 /100 WBC 0-0 kpcd=737) POCT-GLUCOSE [id number] 21:10:00 Test Item Value Reference Range Comments POC-GLUCOSE METER (BEAKER) 133 mg/dL 70-110 TESTED AT [address] (test yuyx=9820) [facility] [address] POCT-GLUCOSE [id number] 18:30:00 Test Item Value Reference Range Comments POC-GLUCOSE METER (BEAKER) 158 mg/dL 70-110 TESTED AT [address] (test rtsk=3881) [facility] [address] POCT-GLUCOSE [id number] 12:09:00 Test Item Value Reference Range Comments POC-GLUCOSE METER (BEAKER) 172 mg/dL 70-110 TESTED AT [address] (test laxj=7664) [facility] [address] POCT-GLUCOSE [id number] 07:55:00 Test Item Value Reference Range Comments POC-GLUCOSE METER (BEAKER) 178 mg/dL 70-110 TESTED AT [address] (test soby=6860) [facility] [address] BASIC METABOLIC [id number] 07:20:00 Test Item Value Reference Range Comments SODIUM (BEAKER) (test 137 meq/L 136-145 fwhc=062) POTASSIUM (BEAKER) (test 3.8 meq/L 3.5-5.1 eahx=780) CHLORIDE (BEAKER) (test 106 meq/L 98-107 ribm=212) CO2 (BEAKER) (test 22 meq/L 22-29 hzxh=619) BLOOD UREA NITROGEN 21 mg/dL 7-21 (BEAKER) (test pzmy=871) CREATININE (BEAKER) (test 1.56 mg/dL 0.57-1.25 ellz=790) GLUCOSE RANDOM (BEAKER) 142 mg/dL 70-105 (test eshh=938) CALCIUM (BEAKER) (test 9.3 mg/dL 8.4-10.2 pwmx=782) EGFR (BEAKER) (test 44 mL/min/1.73 sq m ESTIMATED GFR IS NOT egxb=4320) ACCURATE CREATININE CLEARANCE IN PREDICTING GLOMERULAR FILTRATION RATE. ESTIMATED GFR IS NOT APPLICABLE FOR DIALYSIS PATIENTS. B-TYPE NATRIURETIC FACTOR (BNP)2018-11-15 06:49:00 Test Item Value Reference Range Comments B-TYPE NATRIURETIC PEPTIDE (BEAKER) (test 172 pg/mL 0-100 spxq=783) POCT-GLUCOSE [id number] 06:27:00 Test Item Value Reference Range Comments POC-GLUCOSE METER (BEAKER) 151 mg/dL 70-110 TESTED AT [facility] [address] [facility] (test nzvt=3316) [facility] [address] CBC (HEMOGRAM ONLY)2018-11-15 06:21:00 Test Item Value Reference Range Comments WHITE BLOOD CELL COUNT (BEAKER) (test izfh=737) 10.1 K/ L 3.5-10.5 RED BLOOD CELL COUNT (BEAKER) (test bwmw=669) 3.42 M/ L 4.63-6.08 HEMOGLOBIN (BEAKER) (test yrhz=916) 8.4 GM/DL 13.7-17.5 HEMATOCRIT (BEAKER) (test famo=644) 27.6 % 40.1-51.0 MEAN CORPUSCULAR VOLUME (BEAKER) (test sxqa=254) 80.7 fL 79.0-92.2 MEAN CORPUSCULAR HEMOGLOBIN (BEAKER) (test 24.6 pg 25.7-32.2 awam=124) MEAN CORPUSCULAR HEMOGLOBIN CONC (BEAKER) (test 30.4 GM/DL 32.3-36.5 gqey=201) RED CELL DISTRIBUTION WIDTH (BEAKER) (test 18.5 % 11.6-14.4 oslo=385) PLATELET COUNT (BEAKER) (test uaff=706) 383 K/CU MM 150-450 MEAN PLATELET VOLUME (BEAKER) (test cigk=843) 10.1 fL 9.4-12.4 NUCLEATED RED BLOOD CELLS (BEAKER) (test 0 /100 WBC 0-0 jvdd=045) POCT-GLUCOSE [id number] 21:06:00 Test Item Value Reference Range Comments POC-GLUCOSE METER (BEAKER) 157 mg/dL 70-110 TESTED AT [address] (test nzda=7181) [facility] [address] RAD, CHEST, 1 VIEW, NON [id number] 19:50:00Reason for exam:->sob/shest painShould this be performed [...] Verified Date/Time : 11/14/2018 19:50:32 Reading Location: [facility] [address] [facility] Reading Room RAD , ABDOMEN/KUB, 1 VIEW [id number] 19:02:00Reason for exam:->Check NGT placementPt is hard [...] Rivera Verified Date/Time: 11/14/2018 19:02:06 Reading Location: [address] Reading Room POCT-GLUCOSE [id number] 17:34:00 Test Item Value Reference Range Comments POC-GLUCOSE METER (BEAKER) 136 mg/dL 70-110 TESTED AT [facility] [address] [facility] (test bxoh=0793) [facility] [address] TROPONIN [id number] 16:18:00 Test Item Value Reference Range Comments TROPONIN I (BEAKER) (test xtne=600) < ng/mL 0.00-0.03 Troponin I (TnI) levels [...] Range Comments CREATINE KINASE TOTAL (BEAKER) (test ksvl=192) 68 U/L 29-200 RAD, ABDOMEN/KUB, 1 VIEW [id number] 15:36:00Reason for exam:->Abdominal distension; VomitingShould this be [...] Ortiz Verified Date/Time: 11/14/2018 15:36:02 Reading Location: [facility] [address] Consult Reading Room POCT-GLUCOSE [id number] 12:10: 00 Test Item Value Reference Range Comments POC-GLUCOSE METER (BEAKER) 195 mg/dL 70-110 TESTED AT [address] (test npno=3968) [facility] [address] POCT-GLUCOSE [id number] 08:00:00 Test Item Value Reference Range Comments POC-GLUCOSE METER (BEAKER) 195 mg/dL 70-110 TESTED AT [address] (test sgjh=6767) [facility] [address] COMPREHENSIVE METABOLIC [id number] 06:10:00 Test Item Value Reference Range Comments TOTAL PROTEIN (BEAKER) 7.1 gm/dL 6.0-8.3 (test noqg=029) ALBUMIN (BEAKER) (test 3.8 g/dL 3.5-5.0 ryjj=0725) ALKALINE PHOSPHATASE 78 U/L 40-150 (BEAKER) (test hiwh=893) BILIRUBIN TOTAL (BEAKER) 0.3 mg/dL 0.2-1.2 (test dnhu=747) SODIUM (BEAKER) (test 136 meq/L 136-145 tzdf=188) POTASSIUM (BEAKER) (test 4.0 meq/L 3.5-5.1 feqr=836) CHLORIDE (BEAKER) (test 107 meq/L 98-107 yflv=488) CO2 (BEAKER) (test 19 meq/L 22-29 kbyd=957) BLOOD UREA NITROGEN 25 mg/dL 7-21 (BEAKER) (test fcty=468) CREATININE (BEAKER) (test 1.67 mg/dL 0.57-1.25 gsns=965) GLUCOSE RANDOM (BEAKER) 177 mg/dL 70-105 (test pnzy=096) CALCIUM (BEAKER) (test 9.4 mg/dL 8.4-10.2 hbbl=367) AST (SGOT) (BEAKER) (test 9 U/L 5-34 ypdc=834) ALT (SGPT) (BEAKER) (test 10 U/L 6-55 qdnx=984) EGFR (BEAKER) (test 40 mL/min/1.73 sq m ESTIMATED GFR IS NOT jrvs=2875) ACCURATE CREATININE CLEARANCE IN PREDICTING GLOMERULAR FILTRATION RATE. ESTIMATED GFR IS NOT APPLICABLE FOR DIALYSIS PATIENTS. PROTHROMBIN TIME/[id number] 05:59:00 Test Item Value Reference Range Comments PROTIME (BEAKER) (test xdwv=098) 17.4 seconds 11.7-14.7 INR (BEAKER) (test gszq=204) 1.4 <=5.9 RECOMMENDED COUMADIN/WARFARIN INR THERAPY RANGESSTANDARD DOSE: 2.0 - 3.0 Includes: PROPHYLAXIS forvenous thrombosis, systemic embolization; TREATMENT for venous thrombosis and/or pulmonary embolus.HIGH RISK: Target INR is 2.5-3.5 for patients with mechanical heart valves.CBC W/PLT COUNT & AUTO [id number] 05:45:00 Test Item Value Reference Range Comments WHITE BLOOD CELL COUNT (BEAKER) (test bnoc=802) 11.1 K/ L 3.5-10.5 RED BLOOD CELL COUNT (BEAKER) (test gzss=567) 3.63 M/ L 4.63-6.08 HEMOGLOBIN (BEAKER) (test jnvo=036) 8.8 GM/DL 13.7-17.5 HEMATOCRIT (BEAKER) (test iflv=662) 29.8 % 40.1-51.0 MEAN CORPUSCULAR VOLUME (BEAKER) (test yiau=830) 82.1 fL 79.0-92.2 MEAN CORPUSCULAR HEMOGLOBIN (BEAKER) (test 24.2 pg 25.7-32.2 ngsw=313) MEAN CORPUSCULAR HEMOGLOBIN CONC (BEAKER) (test 29.5 GM/DL 32.3-36.5 sale=054) RED CELL DISTRIBUTION WIDTH (BEAKER) (test 18.4 % 11.6-14.4 upyb=236) PLATELET COUNT (BEAKER) (test iqyu=627) 369 K/CU MM 150-450 MEAN PLATELET VOLUME (BEAKER) (test nbfk=431) 9.6 fL 9.4-12.4 NUCLEATED RED BLOOD CELLS (BEAKER) (test 0 /100 WBC 0-0 flaz=960) NEUTROPHILS RELATIVE PERCENT (BEAKER) (test 72 % pyoi=277) LYMPHOCYTES RELATIVE PERCENT (BEAKER) (test 17 % mpfy=349) MONOCYTES RELATIVE PERCENT (BEAKER) (test 8 % tnlh=081) EOSINOPHILS RELATIVE PERCENT (BEAKER) (test 2 % elgt=846) BASOPHILS RELATIVE PERCENT (BEAKER) (test 1 % xleq=862) NEUTROPHILS ABSOLUTE COUNT (BEAKER) (test 7.98 K/ L 1.78-5.38 yppg=375) LYMPHOCYTES ABSOLUTE COUNT (BEAKER) (test 1.92 K/ L 1.32-3.57 ywfr=036) MONOCYTES ABSOLUTE COUNT (BEAKER) (test 0.86 K/ L 0.30-0.82 kste=622) EOSINOPHILS ABSOLUTE COUNT (BEAKER) (test 0.19 K/ L 0.04-0.54 aqwz=703) BASOPHILS ABSOLUTE COUNT (BEAKER) (test 0.06 K/ L 0.01-0.08 mywj=729) IMMATURE GRANULOCYTES-RELATIVE PERCENT (BEAKER) 1 % 0-1 (test xzyp=3395) U/S, RENAL, [id number] 00:34:00Reason for exam:->Right renal massShould this be [...] MDReport Verified Date/Time: 11/14/2018 00:34:34 Reading Location: [address] Neuro Reading Room Electronically signed by: JEFF SANFORD MD on 2018 12:34 AMPOCT-GLUCOSE [id number] 21:25:00 Test Item Value Reference Range Comments POC-GLUCOSE METER (BEAKER) 155 mg/dL 70-110 TESTED AT [address] (test rguy=4606) [facility] [address] POCT-GLUCOSE [id number] 17:31:00 Test Item Value Reference Range Comments POC-GLUCOSE METER (BEAKER) 144 mg/dL 70-110 TESTED AT [address] (test tkve=4719) [facility] [address] POCT-GLUCOSE [id number] 15:39:00 Test Item Value Reference Range Comments POC-GLUCOSE METER (BEAKER) 156 mg/dL 70-110 TESTED AT [address] (test tbnc=5950) [facility] [address] POCT-GLUCOSE [id number] 12:28:00 Test Item Value Reference Range Comments POC-GLUCOSE METER (BEAKER) 162 mg/dL 70-110 TESTED AT [address] (test dyxb=6640) [facility] [address] POCT-GLUCOSE [id number] 11:40:00 Test Item Value Reference Range Comments POC-GLUCOSE METER (BEAKER) 159 mg/dL 70-110 TESTED AT [address] (test qziy=8190) [facility] [address] HEMOGLOBIN [id number] 09:40:00 Test Item Value Reference Range Comments HEMOGLOBIN A1C (BEAKER) (test qini=372) 6.5 % 4.3-6.1 POCT-GLUCOSE [id number] 08:19:00 Test Item Value Reference Range Comments POC-GLUCOSE METER (BEAKER) 162 mg/dL 70-110 TESTED AT [address] (test opdy=0153) [facility] [address] OSMOLALITY, [id number] 07:44:00 Test Item Value Reference Range Comments OSMOLALITY URINE (BEAKER) 381 mOsm/kg 40-1,400 This is a corrected result. (test heva=831) Previous result was 292 mOsm/kg on 11/13/2018 at 0731 MANAGER LANGUAGE OSMOLALITY, [id number] 07:32:00 Test Item Value Reference Range Comments OSMOLALITY, SERUM (BEAKER) (test dijj=786) 292 mOsm/kg 275-295 CALCIUM, [id number] 07:20:00 Test Item Value Reference Range Comments CALCIUM IONIZED (BEAKER) (test eomq=928) 1.11 mmol/L 1.12-1.27 PH, BLOOD (BEAKER) (test rwmt=2554) 7.44 TSH/FREE T4 IF [id number] 06:26:00 Test Item Value Reference Range Comments THYROID STIMULATING HORMONE (BEAKER) (test 2.50 uIU/mL 0.35-4.94 etvj=243) TROPONIN [id number] 06:04:00 Test Item Value Reference Range Comments TROPONIN I (BEAKER) (test mshu=461) < ng/mL 0.00-0.03 Troponin I (TnI) levels [...] failure, acidosis, acute neurological disease, and persistent tachyarrhythmia.[id number] 06:02:00 Test Item Value Reference Range Comments PHOSPHORUS (BEAKER) (test brhu=228) 2.7 mg/dL 2.3-4.7 [id number] 06:02:00 Test Item Value Reference Range Comments MAGNESIUM (BEAKER) (test kpfk=969) 2.3 mg/dL 1.6-2.6 COMPREHENSIVE METABOLIC [id number] 06:02:00 Test Item Value Reference Range Comments TOTAL PROTEIN (BEAKER) 6.9 gm/dL 6.0-8.3 (test lqqp=764) ALBUMIN (BEAKER) (test 3.6 g/dL 3.5-5.0 ncnm=2990) ALKALINE PHOSPHATASE 77 U/L 40-150 (BEAKER) (test uqvs=972) BILIRUBIN TOTAL (BEAKER) 0.4 mg/dL 0.2-1.2 (test aeho=808) SODIUM (BEAKER) (test 132 meq/L 136-145 smtl=693) POTASSIUM (BEAKER) (test 4.7 meq/L 3.5-5.1 zwaj=822) CHLORIDE (BEAKER) (test 102 meq/L 98-107 hcal=768) CO2 (BEAKER) (test 22 meq/L 22-29 hlwp=893) BLOOD UREA NITROGEN 36 mg/dL 7-21 (BEAKER) (test ecau=258) CREATININE (BEAKER) (test 1.86 mg/dL 0.57-1.25 wvza=784) GLUCOSE RANDOM (BEAKER) 144 mg/dL 70-105 (test savd=907) CALCIUM (BEAKER) (test 9.1 mg/dL 8.4-10.2 vssr=518) AST (SGOT) (BEAKER) (test 9 U/L 5-34 hbix=904) ALT (SGPT) (BEAKER) (test 10 U/L 6-55 hsak=331) EGFR (BEAKER) (test 36 mL/min/1.73 sq m ESTIMATED GFR IS NOT nsjh=8433) ACCURATE CREATININE CLEARANCE IN PREDICTING GLOMERULAR FILTRATION RATE. ESTIMATED GFR IS NOT APPLICABLE FOR DIALYSIS PATIENTS. CREATINE KINASE (CK)2018-11-13 06:02:00 Test Item Value Reference Range Comments CREATINE KINASE TOTAL (BEAKER) (test terz=160) 90 U/L 29-200 URINALYSIS W/ [id number] 06:00:00 Test Item Value Reference Range Comments COLOR (BEAKER) (test biax=524) Yellow CLARITY (BEAKER) (test doed=038) Hazy SPECIFIC GRAVITY UA (BEAKER) (test fweg=985) 1.010 1.001-1.035 PH UA (BEAKER) (test szxr=177) 5.5 5.0-8.0 PROTEIN UA (BEAKER) (test qimo=796) Negative Negative GLUCOSE UA (BEAKER) (test xnna=027) Negative Negative KETONES UA (BEAKER) (test tvco=330) Negative Negative BILIRUBIN UA (BEAKER) (test ejzj=698) Negative Negative BLOOD UA (BEAKER) (test hxlu=078) Negative Negative NITRITE UA (BEAKER) (test mgtc=356) Negative Negative LEUKOCYTE ESTERASE UA (BEAKER) (test fknf=418) Large Negative UROBILINOGEN UA (BEAKER) (test fzdy=422) 0.2 mg/dL 0.2-1.0 RBC UA (BEAKER) (test spjd=487) 1 /HPF WBC UA (BEAKER) (test qssz=288) 66 /HPF BACTERIA (BEAKER) (test uppy=112) Many SQUAMOUS EPITHELIAL (BEAKER) (test annz=654) 1 /HPF SOURCE(BEAKER) (test vzsr=3736) B-TYPE NATRIURETIC FACTOR (BNP)2018-11-13 05:58:00 Test Item Value Reference Range Comments B-TYPE NATRIURETIC PEPTIDE (BEAKER) (test icyw=864) 88 pg/mL 0-100 PROTHROMBIN TIME/[id number] 05:39:00 Test Item Value Reference Range Comments PROTIME (BEAKER) (test lexl=694) 18.3 seconds 11.7-14.7 INR (BEAKER) (test gqxz=672) 1.5 <=5.9 RECOMMENDED COUMADIN/WARFARIN INR THERAPY RANGESSTANDARD DOSE: 2.0 - 3.0 Includes: PROPHYLAXIS forvenous thrombosis, systemic embolization; TREATMENT for venous thrombosis and/or pulmonary embolus.HIGH RISK: Target INR is 2.5-3.5 for patients with mechanical heart valves.CBC W/PLT COUNT & AUTO [id number] 05:31:00 Test Item Value Reference Range Comments WHITE BLOOD CELL COUNT (BEAKER) (test jpzc=898) 11.8 K/ L 3.5-10.5 RED BLOOD CELL COUNT (BEAKER) (test txfx=942) 3.44 M/ L 4.63-6.08 HEMOGLOBIN (BEAKER) (test zojb=064) 8.5 GM/DL 13.7-17.5 HEMATOCRIT (BEAKER) (test jexq=241) 27.6 % 40.1-51.0 MEAN CORPUSCULAR VOLUME (BEAKER) (test yfwq=786) 80.2 fL 79.0-92.2 MEAN CORPUSCULAR HEMOGLOBIN (BEAKER) (test 24.7 pg 25.7-32.2 lexd=979) MEAN CORPUSCULAR HEMOGLOBIN CONC (BEAKER) (test 30.8 GM/DL 32.3-36.5 zrxn=989) RED CELL DISTRIBUTION WIDTH (BEAKER) (test 18.4 % 11.6-14.4 acoj=360) PLATELET COUNT (BEAKER) (test gmjg=375) 360 K/CU MM 150-450 MEAN PLATELET VOLUME (BEAKER) (test oela=142) 9.6 fL 9.4-12.4 NUCLEATED RED BLOOD CELLS (BEAKER) (test 0 /100 WBC 0-0 ovqz=669) NEUTROPHILS RELATIVE PERCENT (BEAKER) (test 66 % zodg=725) LYMPHOCYTES RELATIVE PERCENT (BEAKER) (test 24 % rsdi=235) MONOCYTES RELATIVE PERCENT (BEAKER) (test 7 % iadu=437) EOSINOPHILS RELATIVE PERCENT (BEAKER) (test 2 % cvtn=076) BASOPHILS RELATIVE PERCENT (BEAKER) (test 1 % alpl=011) NEUTROPHILS ABSOLUTE COUNT (BEAKER) (test 7.75 K/ L 1.78-5.38 hxbf=064) LYMPHOCYTES ABSOLUTE COUNT (BEAKER) (test 2.84 K/ L 1.32-3.57 cujc=380) MONOCYTES ABSOLUTE COUNT (BEAKER) (test 0.83 K/ L 0.30-0.82 agfa=527) EOSINOPHILS ABSOLUTE COUNT (BEAKER) (test 0.23 K/ L 0.04-0.54 liyf=162) BASOPHILS ABSOLUTE COUNT (BEAKER) (test 0.06 K/ L 0.01-0.08 tkyb=873) IMMATURE GRANULOCYTES-RELATIVE PERCENT (BEAKER) 1 % 0-1 (test nzmm=3741) PROTEIN, RANDOM [id number] 03:02:00 Test Item Value Reference Range Comments PROTEIN, URINE (BEAKER) (test rqpr=5373) < mg/dL 0-14 CREATININE, RANDOM [id number] 02:56:00 Test Item Value Reference Range Comments CREATININE URINE (BEAKER) (test rmpp=200) 63.6 mg/dL Reference Range: No NormalsSODIUM, RANDOM [id number] 02:56:00 Test Item Value Reference Range Comments SODIUM URINE (BEAKER) (test xedo=285) 83 meq/L Reference Range: No NormalsHEMOGLOBIN AND [id number] 01:12:00 Test Item Value Reference Range Comments HEMOGLOBIN (BEAKER) (test uhpq=394) 8.8 GM/DL 13.7-17.5 HEMATOCRIT (BEAKER) (test agsu=230) 28.1 % 40.1-51.0 POCT-GLUCOSE [id number] 21:32:00 Test Item Value Reference Range Comments POC-GLUCOSE METER (BEAKER) 142 mg/dL 70-110 TESTED AT [address] (test zvon=3454) [place] [id number] POCT-GLUCOSE [id number] 16:46:00 Test Item Value Reference Range Comments POC-GLUCOSE METER (BEAKER) 134 mg/dL 70-110 TESTED AT [address] (test shcp=8278) [place] [id number] HEMOGLOBIN AND [id number] 16:15:00 Test Item Value Reference Range Comments HEMOGLOBIN (BEAKER) (test qvoa=685) 8.8 GM/DL 13.7-17.5 HEMATOCRIT (BEAKER) (test qgzg=565) 28.4 % 40.1-51.0 POCT-GLUCOSE [id number] 13:55:00 Test Item Value Reference Range Comments POC-GLUCOSE METER (BEAKER) 199 mg/dL 70-110 TESTED AT [address] (test edcm=9505) [facility] [address] HEMOGLOBIN AND [id number] 12:41:00 Test Item Value Reference Range Comments HEMOGLOBIN (BEAKER) (test luxi=915) 8.5 GM/DL 13.7-17.5 HEMATOCRIT (BEAKER) (test duzg=723) 28.1 % 40.1-51.0 [id number] 04:05:00 Test Item Value Reference Range Comments FERRITIN (BEAKER) (test zsio=872) 40 ng/mL 5-275 IRON, TIBC, % SAT. (WITHOUT FERRITIN)2018-11-12 03:43:00 Test Item Value Reference Range Comments IRON (BEAKER) (test cnwu=278) 51.0 ug/dL 40.0-160.0 TOTAL IRON BINDING CAPACITY (BEAKER) (test 374 ug/dL 250-450 dcmw=884) IRON % SATURATION (2) (BEAKER) (test ovdk=4971) 14 % 20-55 RETICULOCYTE [id number] 03:41:00 Test Item Value Reference Range Comments RETICULOCYTE COUNT PCT (BEAKER) (test gjzh=596) 2.8 % 0.5-1.8 URINALYSIS W/ REFLEX URINE [id number] 03:33:00 Test Item Value Reference Range Comments COLOR (BEAKER) (test nsze=973) Light Yellow CLARITY (BEAKER) (test rluf=761) Clear SPECIFIC GRAVITY UA (BEAKER) (test zbfa=665) 1.005 1.001-1.035 PH UA (BEAKER) (test dqea=738) 5.5 5.0-8.0 PROTEIN UA (BEAKER) (test lqne=326) Negative Negative GLUCOSE UA (BEAKER) (test cbbs=690) Negative Negative KETONES UA (BEAKER) (test veeq=814) Negative Negative BILIRUBIN UA (BEAKER) (test cicr=268) Negative Negative BLOOD UA (BEAKER) (test oofr=424) Negative Negative NITRITE UA (BEAKER) (test tpjt=459) Negative Negative LEUKOCYTE ESTERASE UA (BEAKER) (test jphz=555) Small Negative UROBILINOGEN UA (BEAKER) (test rsnp=931) 0.2 mg/dL 0.2-1.0 RBC UA (BEAKER) (test osrn=129) 1 /HPF WBC UA (BEAKER) (test xgtb=697) 10 /HPF SQUAMOUS EPITHELIAL (BEAKER) (test oqdw=081) < /HPF HYALINE CASTS (BEAKER) (test fjrn=276) 1 /LPF CRYSTALS, URINE (BEAKER) (test oqif=3248) Rare AMORPHOUS CRYSTALS (BEAKER) (test iika=7259) Occasional SOURCE(BEAKER) (test qcxt=6350) COMPREHENSIVE METABOLIC [id number] 01:37:00 Test Item Value Reference Range Comments TOTAL PROTEIN (BEAKER) 7.2 gm/dL 6.0-8.3 Specimen slightly (test uvtm=464) hemolyzed ALBUMIN (BEAKER) (test 3.8 g/dL 3.5-5.0 Specimen slightly yabj=7669) hemolyzed ALKALINE PHOSPHATASE 82 U/L 40-150 (BEAKER) (test buma=074) BILIRUBIN TOTAL (BEAKER) 0.5 mg/dL 0.2-1.2 Specimen slightly (test ruov=340) hemolyzed SODIUM (BEAKER) (test 128 meq/L 136-145 cvfd=438) POTASSIUM (BEAKER) (test 5.1 meq/L 3.5-5.1 Specimen slightly euto=686) hemolyzed CHLORIDE (BEAKER) (test 99 meq/L 98-107 piws=084) CO2 (BEAKER) (test 19 meq/L 22-29 vgdy=091) BLOOD UREA NITROGEN 36 mg/dL 7-21 (BEAKER) (test jxkw=585) CREATININE (BEAKER) (test 1.86 mg/dL 0.57-1.25 Specimen slightly vmqr=840) hemolyzed GLUCOSE RANDOM (BEAKER) 117 mg/dL 70-105 (test apnz=449) CALCIUM (BEAKER) (test 9.0 mg/dL 8.4-10.2 hbnp=572) AST (SGOT) (BEAKER) (test 13 U/L 5-34 Specimen slightly qrxm=854) hemolyzed ALT (SGPT) (BEAKER) (test 10 U/L 6-55 Specimen slightly lplr=673) hemolyzed EGFR (BEAKER) (test 36 mL/min/1.73 sq m ESTIMATED GFR IS NOT txtt=3263) ACCURATE CREATININE CLEARANCE IN PREDICTING GLOMERULAR FILTRATION RATE. ESTIMATED GFR IS NOT APPLICABLE FOR DIALYSIS PATIENTS. PROTHROMBIN [id number] 01:05:00 Test Item Value Reference Range Comments PROTIME (BEAKER) (test oxwj=251) 18.4 seconds 11.7-14.7 INR (BEAKER) (test dngd=428) 1.5 <=5.9 RECOMMENDED COUMADIN/WARFARIN INR THERAPY RANGESSTANDARD DOSE: 2.0 - 3.0 Includes: PROPHYLAXIS forvenous thrombosis, systemic embolization; TREATMENT for venous thrombosis and/or pulmonary embolus.HIGH RISK: Target INR is 2.5-3.5 for patients with mechanical heart valves.CBC W/PLT COUNT & AUTO [id number] 00:57:00 Test Item Value Reference Range Comments WHITE BLOOD CELL COUNT (BEAKER) (test dbwr=198) 10.3 K/ L 3.5-10.5 RED BLOOD CELL COUNT (BEAKER) (test eyno=873) 3.37 M/ L 4.63-6.08 HEMOGLOBIN (BEAKER) (test vxoe=768) 8.4 GM/DL 13.7-17.5 HEMATOCRIT (BEAKER) (test yzsu=605) 26.9 % 40.1-51.0 MEAN CORPUSCULAR VOLUME (BEAKER) (test tfzd=167) 79.8 fL 79.0-92.2 MEAN CORPUSCULAR HEMOGLOBIN (BEAKER) (test 24.9 pg 25.7-32.2 vfln=955) MEAN CORPUSCULAR HEMOGLOBIN CONC (BEAKER) (test 31.2 GM/DL 32.3-36.5 bokh=048) RED CELL DISTRIBUTION WIDTH (BEAKER) (test 18.0 % 11.6-14.4 iyah=068) PLATELET COUNT (BEAKER) (test jxcf=156) 334 K/CU MM 150-450 MEAN PLATELET VOLUME (BEAKER) (test xlxh=006) 9.3 fL 9.4-12.4 NUCLEATED RED BLOOD CELLS (BEAKER) (test 0 /100 WBC 0-0 veit=060) NEUTROPHILS RELATIVE PERCENT (BEAKER) (test 61 % dowd=517) LYMPHOCYTES RELATIVE PERCENT (BEAKER) (test 27 % ojjb=647) MONOCYTES RELATIVE PERCENT (BEAKER) (test 8 % bmaf=955) EOSINOPHILS RELATIVE PERCENT (BEAKER) (test 3 % vhrl=175) BASOPHILS RELATIVE PERCENT (BEAKER) (test 1 % cbfk=660) NEUTROPHILS ABSOLUTE COUNT (BEAKER) (test 6.30 K/ L 1.78-5.38 qlct=161) LYMPHOCYTES ABSOLUTE COUNT (BEAKER) (test 2.73 K/ L 1.32-3.57 pvpc=096) MONOCYTES ABSOLUTE COUNT (BEAKER) (test 0.85 K/ L 0.30-0.82 qknv=975) EOSINOPHILS ABSOLUTE COUNT (BEAKER) (test 0.30 K/ L 0.04-0.54 zuwv=289) BASOPHILS ABSOLUTE COUNT (BEAKER) (test 0.05 K/ L 0.01-0.08 bxyi=148) IMMATURE GRANULOCYTES-RELATIVE PERCENT (BEAKER) 1 % 0-1 (test qvjn=6156) POCT-GLUCOSE [id number] 21:06:00 Test Item Value Reference Range Comments POC-GLUCOSE METER (BEAKER) 138 mg/dL 70-110 TESTED AT [facility] [address] [facility] (test yvmn=1304) [facility] [address] BASIC METABOLIC [id number] 08:06:00 Test Item Value Reference Range Comments SODIUM (BEAKER) (test 140 meq/L 136-145 daeo=501) POTASSIUM (BEAKER) (test 3.7 meq/L 3.5-5.1 ogqi=103) CHLORIDE (BEAKER) (test 106 meq/L 98-107 cpci=552) CO2 (BEAKER) (test 26 meq/L 22-29 ficn=630) BLOOD UREA NITROGEN 18 mg/dL 7-21 (BEAKER) (test ragv=870) CREATININE (BEAKER) (test 0.93 mg/dL 0.57-1.25 uziu=102) GLUCOSE RANDOM (BEAKER) 118 mg/dL 70-105 (test vmaj=112) CALCIUM (BEAKER) (test 9.0 mg/dL 8.4-10.2 lkgr=102) EGFR (BEAKER) (test 79 mL/min/1.73 sq m ESTIMATED GFR IS NOT uwee=7546) ACCURATE CREATININE CLEARANCE IN PREDICTING GLOMERULAR FILTRATION RATE. ESTIMATED GFR IS NOT APPLICABLE FOR DIALYSIS PATIENTS. CBC W/PLT COUNT & AUTO [id number] 07:34:00 Test Item Value Reference Range Comments WHITE BLOOD CELL COUNT (BEAKER) (test ealh=143) 9.9 K/ L 3.5-10.5 RED BLOOD CELL COUNT (BEAKER) (test mhnw=667) 3.81 M/ L 4.63-6.08 HEMOGLOBIN (BEAKER) (test dsya=249) 10.6 GM/DL 13.7-17.5 HEMATOCRIT (BEAKER) (test yktl=879) 32.7 % 40.1-51.0 MEAN CORPUSCULAR VOLUME (BEAKER) (test oizy=425) 85.8 fL 79.0-92.2 MEAN CORPUSCULAR HEMOGLOBIN (BEAKER) (test 27.8 pg 25.7-32.2 txtt=982) MEAN CORPUSCULAR HEMOGLOBIN CONC (BEAKER) (test 32.4 GM/DL 32.3-36.5 mapq=232) RED CELL DISTRIBUTION WIDTH (BEAKER) (test 16.5 % 11.6-14.4 ppot=864) PLATELET COUNT (BEAKER) (test kcqd=438) 233 K/CU MM 150-450 MEAN PLATELET VOLUME (BEAKER) (test xwrb=189) 10.2 fL 9.4-12.4 NUCLEATED RED BLOOD CELLS (BEAKER) (test 0 /100 WBC 0-0 qqop=096) NEUTROPHILS RELATIVE PERCENT (BEAKER) (test 62 % plab=265) LYMPHOCYTES RELATIVE PERCENT (BEAKER) (test 26 % proy=806) MONOCYTES RELATIVE PERCENT (BEAKER) (test 7 % ywkg=098) EOSINOPHILS RELATIVE PERCENT (BEAKER) (test 3 % yclq=503) BASOPHILS RELATIVE PERCENT (BEAKER) (test 0 % phrz=474) NEUTROPHILS ABSOLUTE COUNT (BEAKER) (test 6.11 K/ L 1.78-5.38 bwxg=539) LYMPHOCYTES ABSOLUTE COUNT (BEAKER) (test 2.59 K/ L 1.32-3.57 jddm=453) MONOCYTES ABSOLUTE COUNT (BEAKER) (test 0.73 K/ L 0.30-0.82 hmtx=244) EOSINOPHILS ABSOLUTE COUNT (BEAKER) (test 0.34 K/ L 0.04-0.54 eoax=270) BASOPHILS ABSOLUTE COUNT (BEAKER) (test 0.04 K/ L 0.01-0.08 vyqx=664) IMMATURE GRANULOCYTES-RELATIVE PERCENT (BEAKER) 1 % 0-1 (test fejk=7567)
== END 2019-08-05 20:20 | DRG 291 ==
LOC: ER 12:38 → ERHOLD 15:03 → 4TH 15:28
PROVIDERS: ADMIT Family Medicine; ATTEND Family Medicine
DX: I11.0 Hypertensive heart disease with heart failure (principal); I50.31 Acute diastolic (congestive) heart failure; J96.21 Acute and chronic respiratory failure with hypoxia; J44.1 Chronic obstructive pulmonary disease with (acute) exacerbation; C64.9 Malignant neoplasm of unspecified kidney, except renal pelvis; I48.20 Chronic atrial fibrillation, unspecified; Z79.01 Long term (current) use of 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; D64.9 Anemia, unspecified; I25.10 Atherosclerotic heart disease of native coronary artery without angina pectoris; E11.9 Type 2 diabetes mellitus without complications; K21.9 Gastro-esophageal reflux disease without esophagitis; N40.0 Benign prostatic hyperplasia without lower urinary tract symptoms; G72.9 Myopathy, unspecified; E66.9 Obesity, unspecified; Z68.32 Body mass index [BMI] 32.0-32.9, adult; Z23 Encounter for immunization
CPT/HCPCS: 36415; 71045; 71270; 74019; 74178; 80048; 81001; 82805; 82947; 83735; 83880; 84132; 84145; 84484; 85025; 85610; 85730; 87040; 87804; 90471; 93005; 93306; 94760; 96374; 96375; 99285; J1940; J2405; J2765; J2920; J2930; J7512; J7605; Q2035; Q9967

== ENCOUNTER 2019-10-01 06:18 | Emergency (ER) | payer OTHER ==
--- OUTSIDE RECORDS SUMMARY | 2019-10-01 06:25 | XMS REPORT ---
:1945 [facility] Address [address] [place] [address] Care Team Providers Name Role Phone LEIDY [...] (test 166 mg/dL 70-[address] [facility] [address] [facility] frqo=2720) [facility] [address] ANG, NON-TUNNELED CATH/PICC >5 Y.O. WITH [id number] 14:38:00Reason for exam:->need for IV accessFINAL REPORT Right upper extremity PICC insertion. History: Needfor long-term IV therapy. Rehabilitation Team Lead: Brandon Devries MD. Manager Line: Char Portillo (fellow). Modality: Sonography and fluoroscopy. [...] needle into the right atrium. A 5 Italian peel-away sheath was placed. The 5 Italian double-lumen PICC line was measured and cut [...] MDReport Verified Date/Time: 01/19/2019 14:38:36 Reading Location: [place] [address] Angio Body Reading Room [id number] 07:02:00 Test Item Value Reference Range Comments MAGNESIUM (BEAKER) (test 1.8 mg/dL 1.6-2.6 Specimen slightly hemolyzed zvnv=807) BASIC METABOLIC [id number] 07:02:00 Test Item Value Reference Range Comments SODIUM (BEAKER) (test 141 meq/L 136-145 rcqx=238) POTASSIUM (BEAKER) (test 3.7 meq/L 3.5-5.1 Specimen slightly wztg=739) hemolyzed CHLORIDE (BEAKER) (test 114 meq/L 98-107 flyc=065) CO2 (BEAKER) (test 21 meq/L 22-29 ythb=663) BLOOD UREA NITROGEN 17 mg/dL 7-21 (BEAKER) (test dzdx=100) CREATININE (BEAKER) (test 1.09 mg/dL 0.57-1.25 Specimen slightly nrmx=419) hemolyzed GLUCOSE RANDOM (BEAKER) 116 mg/dL 70-105 (test bjpt=939) CALCIUM (BEAKER) (test 8.8 mg/dL 8.4-10.2 gqrx=211) EGFR (BEAKER) (test 66 mL/min/1.73 sq m ESTIMATED GFR IS NOT rlmg=5689) ACCURATE CREATININE CLEARANCE IN PREDICTING GLOMERULAR FILTRATION RATE. ESTIMATED GFR IS NOT APPLICABLE FOR DIALYSIS PATIENTS. POCT-GLUCOSE [id number] 06:28:00 Test Item Value Reference Range Comments POC-GLUCOSE METER (BEAKER) 121 mg/dL 70-110 TESTED AT [address] (test vevk=6490) [facility] [address] POCT-GLUCOSE [id number] 21:25:00 Test Item Value Reference Range Comments POC-GLUCOSE METER (BEAKER) 163 mg/dL 70-110 TESTED AT [address] (test xxwv=4311) [place] [id number] POCT-GLUCOSE [id number] 17:12:00 Test Item Value Reference Range Comments POC-GLUCOSE METER (BEAKER) 191 mg/dL 70-110 TESTED AT [address] (test wtvz=4864) [facility] [address] POCT-GLUCOSE [id number] 13:03:00 Test Item Value Reference Range Comments POC-GLUCOSE METER (BEAKER) 211 mg/dL 70-110 TESTED AT [address] (test pbdt=1083) [facility] [address] POCT-GLUCOSE [id number] 08:47:00 Test Item Value Reference Range Comments POC-GLUCOSE METER (BEAKER) 124 mg/dL 70-110 TESTED AT [address] (test wslu=1593) [facility] [address] POCT-GLUCOSE [id number] 21:04:00 Test Item Value Reference Range Comments POC-GLUCOSE METER (BEAKER) 213 mg/dL 70-110 TESTED AT [address] (test wmnf=3155) [facility] [address] POCT-GLUCOSE [id number] 17:36:00 Test Item Value Reference Range Comments POC-GLUCOSE METER (BEAKER) 174 mg/dL 70-110 TESTED AT [address] (test sgmo=6799) [facility] [address] POCT-GLUCOSE [id number] 11:59:00 Test Item Value Reference Range Comments POC-GLUCOSE METER (BEAKER) 175 mg/dL 70-110 TESTED AT [place] [id number] [facility] (test kugl=4654) [facility] [address] POCT-GLUCOSE [id number] 08:13:00 Test Item Value Reference Range Comments POC-GLUCOSE METER (BEAKER) 109 mg/dL 70-110 TESTED AT [place] [id number] [facility] (test yhnd=4618) [facility] [address] [id number] 07:54:00 Test Item Value Reference Range Comments PHOSPHORUS (BEAKER) (test ltto=583) 3.1 mg/dL 2.3-4.7 [id number] 07:54:00 Test Item Value Reference Range Comments MAGNESIUM (BEAKER) (test emdy=273) 1.7 mg/dL 1.6-2.6 BASIC METABOLIC [id number] 07:54:00 Test Item Value Reference Range Comments SODIUM (BEAKER) (test 140 meq/L 136-145 iosj=087) POTASSIUM (BEAKER) (test 3.7 meq/L 3.5-5.1 henp=931) CHLORIDE (BEAKER) (test 112 meq/L 98-107 bzka=214) CO2 (BEAKER) (test 20 meq/L 22-29 lcne=601) BLOOD UREA NITROGEN 22 mg/dL 7-21 (BEAKER) (test zzsl=472) CREATININE (BEAKER) (test 1.20 mg/dL 0.57-1.25 cocm=393) GLUCOSE RANDOM (BEAKER) 85 mg/dL 70-105 (test lbvp=740) CALCIUM (BEAKER) (test 8.9 mg/dL 8.4-10.2 gruf=723) EGFR (BEAKER) (test 59 mL/min/1.73 sq m ESTIMATED GFR IS NOT ndbn=9052) ACCURATE CREATININE CLEARANCE IN PREDICTING GLOMERULAR FILTRATION RATE. ESTIMATED GFR IS NOT APPLICABLE FOR DIALYSIS PATIENTS. CALCIUM, [id number] 06:26:00 Test Item Value Reference Range Comments CALCIUM IONIZED (BEAKER) (test kimq=242) 1.08 mmol/L 1.12-1.27 PH, BLOOD (BEAKER) (test erou=6952) 7.46 CBC W/PLT COUNT & AUTO [id number] 05:04:00 Test Item Value Reference Range Comments WHITE BLOOD CELL COUNT (BEAKER) (test erhw=597) 8.0 K/ L 3.5-10.5 RED BLOOD CELL COUNT (BEAKER) (test hdnc=776) 3.63 M/ L 4.63-6.08 HEMOGLOBIN (BEAKER) (test owvj=137) 9.3 GM/DL 13.7-17.5 HEMATOCRIT (BEAKER) (test mwon=039) 31.1 % 40.1-51.0 MEAN CORPUSCULAR VOLUME (BEAKER) (test ohox=033) 85.7 fL 79.0-92.2 MEAN CORPUSCULAR HEMOGLOBIN (BEAKER) (test 25.6 pg 25.7-32.2 agwa=823) MEAN CORPUSCULAR HEMOGLOBIN CONC (BEAKER) (test 29.9 GM/DL 32.3-36.5 zazc=707) RED CELL DISTRIBUTION WIDTH (BEAKER) (test 17.6 % 11.6-14.4 agfd=263) PLATELET COUNT (BEAKER) (test kvmo=784) 188 K/CU MM 150-450 MEAN PLATELET VOLUME (BEAKER) (test nyfz=694) 9.8 fL 9.4-12.4 NUCLEATED RED BLOOD CELLS (BEAKER) (test 0 /100 WBC 0-0 wtxy=687) NEUTROPHILS RELATIVE PERCENT (BEAKER) (test 59 % xpqz=163) LYMPHOCYTES RELATIVE PERCENT (BEAKER) (test 30 % fxlm=020) MONOCYTES RELATIVE PERCENT (BEAKER) (test 7 % trwy=062) EOSINOPHILS RELATIVE PERCENT (BEAKER) (test 3 % ysck=879) BASOPHILS RELATIVE PERCENT (BEAKER) (test 1 % klpy=759) NEUTROPHILS ABSOLUTE COUNT (BEAKER) (test 4.67 K/ L 1.78-5.38 visa=220) LYMPHOCYTES ABSOLUTE COUNT (BEAKER) (test 2.37 K/ L 1.32-3.57 zqbe=090) MONOCYTES ABSOLUTE COUNT (BEAKER) (test 0.55 K/ L 0.30-0.82 fkjy=411) EOSINOPHILS ABSOLUTE COUNT (BEAKER) (test 0.27 K/ L 0.04-0.54 sqgd=842) BASOPHILS ABSOLUTE COUNT (BEAKER) (test 0.06 K/ L 0.01-0.08 ynek=472) IMMATURE GRANULOCYTES-RELATIVE PERCENT (BEAKER) 1 % 0-1 (test apmq=3808) POCT-GLUCOSE [id number] 21:25:00 Test Item Value Reference Range Comments POC-GLUCOSE METER (BEAKER) 187 mg/dL 70-110 TESTED AT [address] (test favg=7031) [facility] [address] POCT-GLUCOSE [id number] 18:09:00 Test Item Value Reference Range Comments POC-GLUCOSE METER (BEAKER) 182 mg/dL 70-110 TESTED AT [address] (test xjtq=4039) [facility] [address] POCT-GLUCOSE [id number] 13:07:00 Test Item Value Reference Range Comments POC-GLUCOSE METER (BEAKER) 130 mg/dL 70-110 TESTED AT [address] (test rxtc=8075) [facility] [address] PROTHROMBIN [id number] 07:45:00 Test Item Value Reference Range Comments PROTIME (BEAKER) (test asuo=161) 16.0 seconds 11.7-14.7 INR (BEAKER) (test teds=647) 1.3 <=5.9 RECOMMENDED COUMADIN/WARFARIN INR THERAPY RANGESSTANDARD DOSE: 2.0 - 3.0 Includes: PROPHYLAXIS forvenous thrombosis, systemic embolization; TREATMENT for venous thrombosis and/or pulmonary embolus.HIGH RISK: Target INR is 2.5-3.5 for patients with mechanical heart valves.POCT-GLUCOSE [id number] 06:24:00 Test Item Value Reference Range Comments POC-GLUCOSE METER (BEAKER) 105 mg/dL 70-110 TESTED AT [address] (test fxyt=8004) [facility] [address] POCT-GLUCOSE [id number] 21:22:00 Test Item Value Reference Range Comments POC-GLUCOSE METER (BEAKER) 149 mg/dL 70-110 TESTED AT [address] (test eyvq=1743) [facility] [address] POCT-GLUCOSE [id number] 17:11:00 Test Item Value Reference Range Comments POC-GLUCOSE METER (BEAKER) 147 mg/dL 70-110 TESTED AT [address] (test tahn=7469) [facility] [address] POCT-GLUCOSE [id number] 12:59:00 Test Item Value Reference Range Comments POC-GLUCOSE METER (BEAKER) 144 mg/dL 70-110 TESTED AT [address] (test wxap=3862) [place] [id number] POCT-GLUCOSE [id number] 09:26:00 Test Item Value Reference Range Comments POC-GLUCOSE METER (BEAKER) 135 mg/dL 70-110 TESTED AT [address] (test xqzc=4533) [place] [address] BASIC METABOLIC [id number] 04:09:00 Test Item Value Reference Range Comments SODIUM (BEAKER) (test 140 meq/L 136-145 ujrt=488) POTASSIUM (BEAKER) (test 3.5 meq/L 3.5-5.1 nxcs=232) CHLORIDE (BEAKER) (test 109 meq/L 98-107 oirs=670) CO2 (BEAKER) (test 22 meq/L 22-29 dlic=584) BLOOD UREA NITROGEN 23 mg/dL 7-21 (BEAKER) (test fqem=516) CREATININE (BEAKER) (test 1.31 mg/dL 0.57-1.25 potp=353) GLUCOSE RANDOM (BEAKER) 103 mg/dL 70-105 (test toby=462) CALCIUM (BEAKER) (test 9.0 mg/dL 8.4-10.2 mesg=132) EGFR (BEAKER) (test 53 mL/min/1.73 sq m ESTIMATED GFR IS NOT ztpc=8566) ACCURATE CREATININE CLEARANCE IN PREDICTING GLOMERULAR FILTRATION RATE. ESTIMATED GFR IS NOT APPLICABLE FOR DIALYSIS PATIENTS. POCT-GLUCOSE [id number] 21:24:00 Test Item Value Reference Range Comments POC-GLUCOSE METER (BEAKER) 166 mg/dL 70-110 TESTED AT [address] (test sqhl=2845) [place] [id number] POCT-GLUCOSE [id number] 17:33:00 Test Item Value Reference Range Comments POC-GLUCOSE METER (BEAKER) 195 mg/dL 70-110 TESTED AT [address] (test uqrl=2023) [place] [address] POCT-GLUCOSE [id number] 13:44:00 Test Item Value Reference Range Comments POC-GLUCOSE METER (BEAKER) 213 mg/dL 70-110 TESTED AT [address] (test womb=3860) [place] [id number] POCT-GLUCOSE [id number] 09:29:00 Test Item Value Reference Range Comments POC-GLUCOSE METER (BEAKER) 150 mg/dL 70-[address] [facility] [address] [facility] (test kywt=2505) [facility] [address] [id number] 05:59:00 Test Item Value Reference Range Comments MAGNESIUM (BEAKER) (test 1.7 mg/dL 1.6-2.6 Specimen slightly hemolyzed npqo=824) [id number] 05:59:00 Test Item Value Reference Range Comments PHOSPHORUS (BEAKER) (test 3.2 mg/dL 2.3-4.7 Specimen slightly hemolyzed leex=241) BASIC METABOLIC [id number] 05:59:00 Test Item Value Reference Range Comments SODIUM (BEAKER) (test 142 meq/L 136-145 qsfb=739) POTASSIUM (BEAKER) (test 3.5 meq/L 3.5-5.1 Specimen slightly ewgd=824) hemolyzed CHLORIDE (BEAKER) (test 111 meq/L 98-107 dcvv=533) CO2 (BEAKER) (test 22 meq/L 22-29 mpdb=051) BLOOD UREA NITROGEN 24 mg/dL 7-21 (BEAKER) (test lkgu=908) CREATININE (BEAKER) (test 1.32 mg/dL 0.57-1.25 Specimen slightly hidu=064) hemolyzed GLUCOSE RANDOM (BEAKER) 122 mg/dL 70-105 (test mkve=917) CALCIUM (BEAKER) (test 9.0 mg/dL 8.4-10.2 ahjz=204) EGFR (BEAKER) (test 53 mL/min/1.73 sq m ESTIMATED GFR IS NOT rsoe=8331) ACCURATE CREATININE CLEARANCE IN PREDICTING GLOMERULAR FILTRATION RATE. ESTIMATED GFR IS NOT APPLICABLE FOR DIALYSIS PATIENTS. B-TYPE NATRIURETIC FACTOR (BNP)2019-01-14 05:58:00 Test Item Value Reference Range Comments B-TYPE NATRIURETIC PEPTIDE (BEAKER) (test 298 pg/mL 0-100 omhf=278) CBC W/PLT COUNT & AUTO [id number] 05:35:00 Test Item Value Reference Range Comments WHITE BLOOD CELL COUNT (BEAKER) (test jbcy=337) 10.1 K/ L 3.5-10.5 RED BLOOD CELL COUNT (BEAKER) (test djds=670) 3.57 M/ L 4.63-6.08 HEMOGLOBIN (BEAKER) (test pcfo=082) 9.3 GM/DL 13.7-17.5 HEMATOCRIT (BEAKER) (test soll=221) 30.1 % 40.1-51.0 MEAN CORPUSCULAR VOLUME (BEAKER) (test rqti=535) 84.3 fL 79.0-92.2 MEAN CORPUSCULAR HEMOGLOBIN (BEAKER) (test 26.1 pg 25.7-32.2 kizo=539) MEAN CORPUSCULAR HEMOGLOBIN CONC (BEAKER) (test 30.9 GM/DL 32.3-36.5 txwb=690) RED CELL DISTRIBUTION WIDTH (BEAKER) (test 17.6 % 11.6-14.4 fnfh=548) PLATELET COUNT (BEAKER) (test qrnz=690) 187 K/CU MM 150-450 MEAN PLATELET VOLUME (BEAKER) (test pxet=339) 9.3 fL 9.4-12.4 NUCLEATED RED BLOOD CELLS (BEAKER) (test 0 /100 WBC 0-0 ejic=260) NEUTROPHILS RELATIVE PERCENT (BEAKER) (test 69 % pcbi=350) LYMPHOCYTES RELATIVE PERCENT (BEAKER) (test 23 % swdu=813) MONOCYTES RELATIVE PERCENT (BEAKER) (test 6 % shmd=485) EOSINOPHILS RELATIVE PERCENT (BEAKER) (test 2 % nlxj=269) BASOPHILS RELATIVE PERCENT (BEAKER) (test 0 % bpbo=047) NEUTROPHILS ABSOLUTE COUNT (BEAKER) (test 6.93 K/ L 1.78-5.38 gbmg=896) LYMPHOCYTES ABSOLUTE COUNT (BEAKER) (test 2.33 K/ L 1.32-3.57 cena=080) MONOCYTES ABSOLUTE COUNT (BEAKER) (test 0.56 K/ L 0.30-0.82 ejtc=481) EOSINOPHILS ABSOLUTE COUNT (BEAKER) (test 0.23 K/ L 0.04-0.54 hvln=505) BASOPHILS ABSOLUTE COUNT (BEAKER) (test 0.03 K/ L 0.01-0.08 pkue=964) IMMATURE GRANULOCYTES-RELATIVE PERCENT (BEAKER) 0 % 0-1 (test iluv=9898) POCT-GLUCOSE [id number] 21:05:00 Test Item Value Reference Range Comments POC-GLUCOSE METER (BEAKER) 168 mg/dL 70-110 TESTED AT [address] (test vtkf=7939) [facility] [address] POCT-GLUCOSE [id number] 18:28:00 Test Item Value Reference Range Comments POC-GLUCOSE METER (BEAKER) 220 mg/dL 70-110 TESTED AT [address] (test rzki=1135) [facility] [address] POCT-GLUCOSE [id number] 13:39:00 Test Item Value Reference Range Comments POC-GLUCOSE METER (BEAKER) 262 mg/dL 70-110 TESTED AT [address] (test icka=1785) [facility] [address] POCT-GLUCOSE [id number] 09:18:00 Test Item Value Reference Range Comments POC-GLUCOSE METER (BEAKER) 135 mg/dL 70-110 TESTED AT [address] (test ypfp=6344) [facility] [address] OSMOLALITY, [id number] 07:19:00 Test Item Value Reference Range Comments OSMOLALITY URINE (BEAKER) 686 mOsm/kg 40-1,400 Performed at [facility] (test przt=124) Laboratories CALCIUM, [id number] 06:54:00 Test Item Value Reference Range Comments CALCIUM IONIZED (BEAKER) (test jxjk=727) 1.01 mmol/L 1.12-1.27 PH, BLOOD (BEAKER) (test kgyg=8094) 7.50 [id number] 06:20:00 Test Item Value Reference Range Comments PHOSPHORUS (BEAKER) (test qgzf=149) 3.2 mg/dL 2.3-4.7 [id number] 06:20:00 Test Item Value Reference Range Comments MAGNESIUM (BEAKER) (test amik=432) 1.7 mg/dL 1.6-2.6 BASIC METABOLIC [id number] 06:20:00 Test Item Value Reference Range Comments SODIUM (BEAKER) (test 140 meq/L 136-145 mwrj=276) POTASSIUM (BEAKER) (test 3.5 meq/L 3.5-5.1 svnx=989) CHLORIDE (BEAKER) (test 109 meq/L 98-107 sbjz=231) CO2 (BEAKER) (test 24 meq/L 22-29 sioj=689) BLOOD UREA NITROGEN 27 mg/dL 7-21 (BEAKER) (test fhjh=603) CREATININE (BEAKER) (test 1.35 mg/dL 0.57-1.25 pucp=834) GLUCOSE RANDOM (BEAKER) 135 mg/dL 70-105 (test igch=767) CALCIUM (BEAKER) (test 9.1 mg/dL 8.4-10.2 ayuq=561) EGFR (BEAKER) (test 52 mL/min/1.73 sq m ESTIMATED GFR IS NOT nzof=8107) ACCURATE CREATININE CLEARANCE IN PREDICTING GLOMERULAR FILTRATION RATE. ESTIMATED GFR IS NOT APPLICABLE FOR DIALYSIS PATIENTS. CBC W/PLT COUNT & AUTO [id number] 05:44:00 Test Item Value Reference Range Comments WHITE BLOOD CELL COUNT (BEAKER) (test xoep=971) 7.2 K/ L 3.5-10.5 RED BLOOD CELL COUNT (BEAKER) (test jrtz=643) 3.47 M/ L 4.63-6.08 HEMOGLOBIN (BEAKER) (test ghau=285) 9.0 GM/DL 13.7-17.5 HEMATOCRIT (BEAKER) (test llcq=903) 29.2 % 40.1-51.0 MEAN CORPUSCULAR VOLUME (BEAKER) (test gsfz=695) 84.1 fL 79.0-92.2 MEAN CORPUSCULAR HEMOGLOBIN (BEAKER) (test 25.9 pg 25.7-32.2 fdhr=477) MEAN CORPUSCULAR HEMOGLOBIN CONC (BEAKER) (test 30.8 GM/DL 32.3-36.5 heji=749) RED CELL DISTRIBUTION WIDTH (BEAKER) (test 18.0 % 11.6-14.4 vlly=046) PLATELET COUNT (BEAKER) (test eidg=233) 195 K/CU MM 150-450 MEAN PLATELET VOLUME (BEAKER) (test koxc=795) 9.1 fL 9.4-12.4 NUCLEATED RED BLOOD CELLS (BEAKER) (test 0 /100 WBC 0-0 hays=802) NEUTROPHILS RELATIVE PERCENT (BEAKER) (test 53 % kmlf=861) LYMPHOCYTES RELATIVE PERCENT (BEAKER) (test 35 % mewk=492) MONOCYTES RELATIVE PERCENT (BEAKER) (test 8 % yhvt=511) EOSINOPHILS RELATIVE PERCENT (BEAKER) (test 4 % bkqi=922) BASOPHILS RELATIVE PERCENT (BEAKER) (test 1 % dsum=951) NEUTROPHILS ABSOLUTE COUNT (BEAKER) (test 3.80 K/ L 1.78-5.38 enmk=257) LYMPHOCYTES ABSOLUTE COUNT (BEAKER) (test 2.52 K/ L 1.32-3.57 ikjm=488) MONOCYTES ABSOLUTE COUNT (BEAKER) (test 0.55 K/ L 0.30-0.82 zpnt=659) EOSINOPHILS ABSOLUTE COUNT (BEAKER) (test 0.30 K/ L 0.04-0.54 hgai=520) BASOPHILS ABSOLUTE COUNT (BEAKER) (test 0.04 K/ L 0.01-0.08 qhce=986) IMMATURE GRANULOCYTES-RELATIVE PERCENT (BEAKER) 0 % 0-1 (test dbue=5721) MR, BRAIN, [id number] 04:02:00FINAL REPORT MR, BRAIN , WITH \T\ [...] MDReport Verified Date/Time: 01/13/2019 04:02:20 Reading Location: [address] Neuro Reading Room POCT-GLUCOSE [id number] 22:05:00 Test Item Value Reference Range Comments POC-GLUCOSE METER (BEAKER) 187 mg/dL 70-[address] [facility] [address] [facility] (test gzvx=6776) [facility] [address] POCT-GLUCOSE [id number] 18:17:00 Test Item Value Reference Range Comments POC-GLUCOSE METER (BEAKER) 137 mg/dL 70-110 TESTED AT [address] (test dvqh=5285) [facility] [address] POCT-GLUCOSE [id number] 13:08:00 Test Item Value Reference Range Comments POC-GLUCOSE METER (BEAKER) 221 mg/dL 70-110 TESTED AT [address] (test lrld=9684) [facility] [address] CT, CHEST, WITHOUT [id number] 13:03:00FINAL REPORT CT of the Chest dated [...] Verified Date/Time: 01/12/2019 13:03: 39 Reading Location: [facility] B1 C013Y CT Body Reading Room POCT-GLUCOSE [id number] 07:53:00 Test Item Value Reference Range Comments POC-GLUCOSE METER (BEAKER) 156 mg/dL 70-110 TESTED AT [address] (test nzcl=1036) [facility] [address] BASIC METABOLIC [id number] 03:16:00 Test Item Value Reference Range Comments SODIUM (BEAKER) (test 138 meq/L 136-145 devq=911) POTASSIUM (BEAKER) (test 3.6 meq/L 3.5-5.1 vzwk=665) CHLORIDE (BEAKER) (test 106 meq/L 98-107 qjin=937) CO2 (BEAKER) (test 22 meq/L 22-29 hqof=411) BLOOD UREA NITROGEN 31 mg/dL 7-21 (BEAKER) (test dsml=506) CREATININE (BEAKER) (test 1.44 mg/dL 0.57-1.25 awtm=937) GLUCOSE RANDOM (BEAKER) 123 mg/dL 70-105 (test aluv=365) CALCIUM (BEAKER) (test 9.1 mg/dL 8.4-10.2 hrue=925) EGFR (BEAKER) (test 48 mL/min/1.73 sq m ESTIMATED GFR IS NOT xjxr=8552) ACCURATE CREATININE CLEARANCE IN PREDICTING GLOMERULAR FILTRATION RATE. ESTIMATED GFR IS NOT APPLICABLE FOR DIALYSIS PATIENTS. POCT-GLUCOSE [id number] 21:12:00 Test Item Value Reference Range Comments POC-GLUCOSE METER (BEAKER) 159 mg/dL 70-[address] [facility] [address] [facility] (test pneu=1339) [facility] [address] POCT-GLUCOSE [id number] 17:44:00 Test Item Value Reference Range Comments POC-GLUCOSE METER (BEAKER) 158 mg/dL 70-[address] [facility] [address] [facility] (test uusj=6505) [facility] [address] U/S, RENAL, [id number] 10:50:00Reason for exam:->AKIShould this be performed at [...] MDReport Verified Date/Time: 01/11/2019 10:50:26 Reading Location: [facility] C013X Ortho Consult Reading Room MR, MRA ABDOMEN, WITHOUT FOLLOW WITH [id number] 08:43:00FINAL REPORT MRA of the abdominal [...] nephrotoxic contrast agent. TECHNIQUE: Farzaneh 3 Natasha [employer] MRI scanner. Limited images were performed for [...] Legereport Verified Date/Time: 01/11 08:43:33 Reading Location: [place] [address] Cardiology MRI POCT-GLUCOSE [id number] 07:57:00 Test Item Value Reference Range Comments POC-GLUCOSE METER (BEAKER) 137 mg/dL 70-[address] [facility] [address] [facility] (test vzrx=6554) [facility] [address] BASIC METABOLIC [id number] 07:37:00 Test Item Value Reference Range Comments SODIUM (BEAKER) (test 141 meq/L 136-145 bxol=431) POTASSIUM (BEAKER) (test 4.2 meq/L 3.5-5.1 jcpb=135) CHLORIDE (BEAKER) (test 106 meq/L 98-107 dsih=269) CO2 (BEAKER) (test 25 meq/L 22-29 blvj=056) BLOOD UREA NITROGEN 35 mg/dL 7-21 (BEAKER) (test aqaz=472) CREATININE (BEAKER) (test 1.67 mg/dL 0.57-1.25 sygx=531) GLUCOSE RANDOM (BEAKER) 121 mg/dL 70-105 (test wjhj=521) CALCIUM (BEAKER) (test 9.3 mg/dL 8.4-10.2 jxtp=910) EGFR (BEAKER) (test 40 mL/min/1.73 sq m ESTIMATED GFR IS NOT wkfj=6386) ACCURATE CREATININE CLEARANCE IN PREDICTING GLOMERULAR FILTRATION RATE. ESTIMATED GFR IS NOT APPLICABLE FOR DIALYSIS PATIENTS. CBC W/PLT COUNT & AUTO [id number] 06:21:00 Test Item Value Reference Range Comments WHITE BLOOD CELL COUNT (BEAKER) (test gxao=173) 7.3 K/ L 3.5-10.5 RED BLOOD CELL COUNT (BEAKER) (test rzap=510) 3.65 M/ L 4.63-6.08 HEMOGLOBIN (BEAKER) (test wsmw=847) 9.7 GM/DL 13.7-17.5 HEMATOCRIT (BEAKER) (test lvpd=501) 30.8 % 40.1-51.0 MEAN CORPUSCULAR VOLUME (BEAKER) (test dlfp=823) 84.4 fL 79.0-92.2 MEAN CORPUSCULAR HEMOGLOBIN (BEAKER) (test 26.6 pg 25.7-32.2 stva=228) MEAN CORPUSCULAR HEMOGLOBIN CONC (BEAKER) (test 31.5 GM/DL 32.3-36.5 xzoq=681) RED CELL DISTRIBUTION WIDTH (BEAKER) (test 18.2 % 11.6-14.4 nyfx=311) PLATELET COUNT (BEAKER) (test agua=443) 229 K/CU MM 150-450 MEAN PLATELET VOLUME (BEAKER) (test vbgh=639) 9.7 fL 9.4-12.4 NUCLEATED RED BLOOD CELLS (BEAKER) (test 0 /100 WBC 0-0 rmmn=238) NEUTROPHILS RELATIVE PERCENT (BEAKER) (test 55 % hdtr=353) LYMPHOCYTES RELATIVE PERCENT (BEAKER) (test 31 % tfkt=793) MONOCYTES RELATIVE PERCENT (BEAKER) (test 8 % txsb=949) EOSINOPHILS RELATIVE PERCENT (BEAKER) (test 5 % quak=095) BASOPHILS RELATIVE PERCENT (BEAKER) (test 1 % ufjb=299) NEUTROPHILS ABSOLUTE COUNT (BEAKER) (test 3.99 K/ L 1.78-5.38 neml=064) LYMPHOCYTES ABSOLUTE COUNT (BEAKER) (test 2.28 K/ L 1.32-3.57 ngdt=831) MONOCYTES ABSOLUTE COUNT (BEAKER) (test 0.59 K/ L 0.30-0.82 gexk=390) EOSINOPHILS ABSOLUTE COUNT (BEAKER) (test 0.37 K/ L 0.04-0.54 byqu=374) BASOPHILS ABSOLUTE COUNT (BEAKER) (test 0.05 K/ L 0.01-0.08 ztgu=537) IMMATURE GRANULOCYTES-RELATIVE PERCENT (BEAKER) 0 % 0-1 (test zjio=8400) POCT-GLUCOSE [id number] 21:13:00 Test Item Value Reference Range Comments POC-GLUCOSE METER (BEAKER) 188 mg/dL 70-[address] [facility] [address] [facility] (test ksxv=2082) [facility] [address] POCT-GLUCOSE [id number] 18:14:00 Test Item Value Reference Range Comments POC-GLUCOSE METER (BEAKER) 159 mg/dL 70-[address] [facility] [address] [facility] (test fbfp=5967) [facility] [address] POCT-GLUCOSE [id number] 12:15:00 Test Item Value Reference Range Comments POC-GLUCOSE METER (BEAKER) 174 mg/dL 70-[address] [facility] [address] [facility] (test qtfc=2701) [facility] [address] BASIC METABOLIC [id number] 11:21:00 Test Item Value Reference Range Comments SODIUM (BEAKER) (test 142 meq/L 136-145 huez=313) POTASSIUM (BEAKER) (test 3.9 meq/L 3.5-5.1 jkrn=225) CHLORIDE (BEAKER) (test 112 meq/L 98-107 tfiy=851) CO2 (BEAKER) (test 22 meq/L 22-29 ffab=636) BLOOD UREA NITROGEN 35 mg/dL 7-21 (BEAKER) (test uhoy=856) CREATININE (BEAKER) (test 1.57 mg/dL 0.57-1.25 pmhs=796) GLUCOSE RANDOM (BEAKER) 149 mg/dL 70-105 (test whkc=702) CALCIUM (BEAKER) (test 8.3 mg/dL 8.4-10.2 qrhs=239) EGFR (BEAKER) (test 43 mL/min/1.73 sq m ESTIMATED GFR IS NOT tuzh=2490) ACCURATE CREATININE CLEARANCE IN PREDICTING GLOMERULAR FILTRATION RATE. ESTIMATED GFR IS NOT APPLICABLE FOR DIALYSIS PATIENTS. CBC W/PLT COUNT & AUTO [id number] 09:55:00 Test Item Value Reference Range Comments WHITE BLOOD CELL COUNT (BEAKER) (test siic=918) 7.2 K/ L 3.5-10.5 RED BLOOD CELL COUNT (BEAKER) (test ihgj=851) 3.54 M/ L 4.63-6.08 HEMOGLOBIN (BEAKER) (test jkke=711) 9.3 GM/DL 13.7-17.5 HEMATOCRIT (BEAKER) (test nfcm=006) 30.0 % 40.1-51.0 MEAN CORPUSCULAR VOLUME (BEAKER) (test yaoa=536) 84.7 fL 79.0-92.2 MEAN CORPUSCULAR HEMOGLOBIN (BEAKER) (test 26.3 pg 25.7-32.2 iloo=450) MEAN CORPUSCULAR HEMOGLOBIN CONC (BEAKER) (test 31.0 GM/DL 32.3-36.5 zwqs=441) RED CELL DISTRIBUTION WIDTH (BEAKER) (test 18.1 % 11.6-14.4 xtpc=561) PLATELET COUNT (BEAKER) (test zeix=736) 222 K/CU MM 150-450 MEAN PLATELET VOLUME (BEAKER) (test qrue=911) 9.2 fL 9.4-12.4 NUCLEATED RED BLOOD CELLS (BEAKER) (test 0 /100 WBC 0-0 ueyr=854) NEUTROPHILS RELATIVE PERCENT (BEAKER) (test 62 % pvpw=512) LYMPHOCYTES RELATIVE PERCENT (BEAKER) (test 26 % fefa=690) MONOCYTES RELATIVE PERCENT (BEAKER) (test 8 % ysfc=014) EOSINOPHILS RELATIVE PERCENT (BEAKER) (test 3 % epze=616) BASOPHILS RELATIVE PERCENT (BEAKER) (test 1 % ohyz=540) NEUTROPHILS ABSOLUTE COUNT (BEAKER) (test 4.43 K/ L 1.78-5.38 rovs=870) LYMPHOCYTES ABSOLUTE COUNT (BEAKER) (test 1.85 K/ L 1.32-3.57 lpdb=150) MONOCYTES ABSOLUTE COUNT (BEAKER) (test 0.57 K/ L 0.30-0.82 wnpj=031) EOSINOPHILS ABSOLUTE COUNT (BEAKER) (test 0.24 K/ L 0.04-0.54 nyvo=431) BASOPHILS ABSOLUTE COUNT (BEAKER) (test 0.04 K/ L 0.01-0.08 uyvx=861) IMMATURE GRANULOCYTES-RELATIVE PERCENT (BEAKER) 1 % 0-1 (test wovq=6784) BASIC METABOLIC [id number] 23:02:00 Test Item Value Reference Range Comments SODIUM (BEAKER) (test 137 meq/L 136-145 edaw=761) POTASSIUM (BEAKER) (test 4.6 meq/L 3.5-5.1 kiuq=194) CHLORIDE (BEAKER) (test 109 meq/L 98-107 xghx=401) CO2 (BEAKER) (test 22 meq/L 22-29 grij=471) BLOOD UREA NITROGEN 38 mg/dL 7-21 (BEAKER) (test xipu=896) CREATININE (BEAKER) (test 1.91 mg/dL 0.57-1.25 iipu=256) GLUCOSE RANDOM (BEAKER) 157 mg/dL 70-105 (test dzqv=581) CALCIUM (BEAKER) (test 8.9 mg/dL 8.4-10.2 gaen=856) EGFR (BEAKER) (test 35 mL/min/1.73 sq m ESTIMATED GFR IS NOT qyrk=1124) ACCURATE CREATININE CLEARANCE IN PREDICTING GLOMERULAR FILTRATION RATE. ESTIMATED GFR IS NOT APPLICABLE FOR DIALYSIS PATIENTS. POCT-GLUCOSE [id number] 21:56:00 Test Item Value Reference Range Comments POC-GLUCOSE METER (BEAKER) 161 mg/dL 70-110 TESTED AT [address] (test ccjr=9162) [place] [address] POCT-GLUCOSE [id number] 13:45:00 Test Item Value Reference Range Comments POC-GLUCOSE METER (BEAKER) 164 mg/dL 70-110 TESTED AT [address] (test lxbl=0952) [place] [address] [id number] 10:16:00 Test Item Value Reference Range Comments POTASSIUM (BEAKER) (test 5.5 meq/L 3.5-5.1 Specimen slightly hemolyzed qyic=436) CALCIUM, [id number] 07:07:00 Test Item Value Reference Range Comments CALCIUM IONIZED (BEAKER) (test djvn=358) 1.05 mmol/L 1.12-1.27 PH, BLOOD (BEAKER) (test rzxv=4704) 7.31 [id number] 06:19:00 Test Item Value Reference Range Comments POTASSIUM (BEAKER) (test ezzw=295) 5.3 meq/L 3.5-5.1 POCT-GLUCOSE [id number] 06:17:00 Test Item Value Reference Range Comments POC-GLUCOSE METER (BEAKER) 177 mg/dL 70-110 TESTED AT [address] (test uwpi=1613) [place] [address] [id number] 05:44:00 Test Item Value Reference Range Comments PHOSPHORUS (BEAKER) (test asyg=058) 4.0 mg/dL 2.3-4.7 [id number] 05:44:00 Test Item Value Reference Range Comments MAGNESIUM (BEAKER) (test zrvk=047) 1.6 mg/dL 1.6-2.6 COMPREHENSIVE METABOLIC [id number] 05:44:00 Test Item Value Reference Range Comments TOTAL PROTEIN (BEAKER) 7.3 gm/dL 6.0-8.3 (test ouor=999) ALBUMIN (BEAKER) (test 3.8 g/dL 3.5-5.0 cabo=6933) ALKALINE PHOSPHATASE 91 U/L 40-150 (BEAKER) (test rair=983) BILIRUBIN TOTAL (BEAKER) 0.5 mg/dL 0.2-1.2 (test hjdx=252) SODIUM (BEAKER) (test 139 meq/L 136-145 vmhp=045) POTASSIUM (BEAKER) (test 5.4 meq/L 3.5-5.1 iwgr=257) CHLORIDE (BEAKER) (test 110 meq/L 98-107 xxxi=774) CO2 (BEAKER) (test 20 meq/L 22-29 hies=870) BLOOD UREA NITROGEN 45 mg/dL 7-21 (BEAKER) (test bgdy=966) CREATININE (BEAKER) (test 2.45 mg/dL 0.57-1.25 vzgx=078) GLUCOSE RANDOM (BEAKER) 177 mg/dL 70-105 (test brlt=896) CALCIUM (BEAKER) (test 9.5 mg/dL 8.4-10.2 ituk=781) AST (SGOT) (BEAKER) (test 11 U/L 5-34 ykky=289) ALT (SGPT) (BEAKER) (test 9 U/L 6-55 zqaf=045) EGFR (BEAKER) (test 26 mL/min/1.73 sq m ESTIMATED GFR IS NOT brpf=8674) ACCURATE CREATININE CLEARANCE IN PREDICTING GLOMERULAR FILTRATION RATE. ESTIMATED GFR IS NOT APPLICABLE FOR DIALYSIS PATIENTS. B-TYPE NATRIURETIC FACTOR (BNP)2019-01-09 05:34:00 Test Item Value Reference Range Comments B-TYPE NATRIURETIC PEPTIDE (BEAKER) (test 248 pg/mL 0-100 yajb=762) CBC W/PLT COUNT & AUTO [id number] 05:14:00 Test Item Value Reference Range Comments WHITE BLOOD CELL COUNT (BEAKER) (test jjys=684) 9.4 K/ L 3.5-10.5 RED BLOOD CELL COUNT (BEAKER) (test hxta=673) 3.79 M/ L 4.63-6.08 HEMOGLOBIN (BEAKER) (test aeds=619) 9.8 GM/DL 13.7-17.5 HEMATOCRIT (BEAKER) (test mukd=975) 32.0 % 40.1-51.0 MEAN CORPUSCULAR VOLUME (BEAKER) (test ywcd=182) 84.4 fL 79.0-92.2 MEAN CORPUSCULAR HEMOGLOBIN (BEAKER) (test 25.9 pg 25.7-32.2 xrru=495) MEAN CORPUSCULAR HEMOGLOBIN CONC (BEAKER) (test 30.6 GM/DL 32.3-36.5 hlex=190) RED CELL DISTRIBUTION WIDTH (BEAKER) (test 17.5 % 11.6-14.4 wjpe=305) PLATELET COUNT (BEAKER) (test fcio=361) 232 K/CU MM 150-450 MEAN PLATELET VOLUME (BEAKER) (test iyie=652) 9.3 fL 9.4-12.4 NUCLEATED RED BLOOD CELLS (BEAKER) (test 0 /100 WBC 0-0 jwwd=094) NEUTROPHILS RELATIVE PERCENT (BEAKER) (test 78 % bmkn=230) LYMPHOCYTES RELATIVE PERCENT (BEAKER) (test 13 % rgfu=671) MONOCYTES RELATIVE PERCENT (BEAKER) (test 4 % wpez=175) EOSINOPHILS RELATIVE PERCENT (BEAKER) (test 4 % mthq=217) BASOPHILS RELATIVE PERCENT (BEAKER) (test 0 % nibk=530) NEUTROPHILS ABSOLUTE COUNT (BEAKER) (test 7.31 K/ L 1.78-5.38 lser=683) LYMPHOCYTES ABSOLUTE COUNT (BEAKER) (test 1.24 K/ L 1.32-3.57 kwnh=895) MONOCYTES ABSOLUTE COUNT (BEAKER) (test 0.37 K/ L 0.30-0.82 huvv=117) EOSINOPHILS ABSOLUTE COUNT (BEAKER) (test 0.39 K/ L 0.04-0.54 erma=064) BASOPHILS ABSOLUTE COUNT (BEAKER) (test 0.04 K/ L 0.01-0.08 sziw=340) IMMATURE GRANULOCYTES-RELATIVE PERCENT (BEAKER) 0 % 0-1 (test siqx=3602) URINALYSIS W/ [id number] 00:47:00 Test Item Value Reference Range Comments COLOR (BEAKER) (test njfh=657) Yellow CLARITY (BEAKER) (test vzzm=023) Cloudy SPECIFIC GRAVITY UA (BEAKER) (test ikez=534) 1.014 1.001-1.035 PH UA (BEAKER) (test ngsd=783) 7.5 5.0-8.0 PROTEIN UA (BEAKER) (test dhnb=030) 50 mg/dL Negative GLUCOSE UA (BEAKER) (test fnpo=367) Negative Negative KETONES UA (BEAKER) (test prwr=142) Negative Negative BILIRUBIN UA (BEAKER) (test ccoc=262) Negative Negative BLOOD UA (BEAKER) (test ughh=269) Small Negative NITRITE UA (BEAKER) (test cvqx=996) Negative Negative LEUKOCYTE ESTERASE UA (BEAKER) (test saei=015) Large Negative UROBILINOGEN UA (BEAKER) (test gamp=712) 0.2 mg/dL 0.2-1.0 RBC UA (BEAKER) (test xzuo=990) 71 /HPF WBC UA (BEAKER) (test qbfy=084) 1129 /HPF BACTERIA (BEAKER) (test liyp=072) Many MUCUS (BEAKER) (test ndrw=5695) Rare SQUAMOUS EPITHELIAL (BEAKER) (test zlbj=168) 1 /HPF HYALINE CASTS (BEAKER) (test ykcn=212) 19 /LPF SOURCE(BEAKER) (test jago=1019) Urine, Voided [id number] 00:34:00 Test Item Value Reference Range Comments POTASSIUM (BEAKER) (test upty=363) 5.4 meq/L 3.5-5.1 RAD, CHEST, 1 VIEW, NON [id number] 23:33:00Reason for exam:->edemaShould this be performed at [...] [place] Verified Date/Time: 01/08/2019 23:33:47 Reading Location: [facility] B1 [id number] Consult Reading Room POCT-GLUCOSE [id number] 21:58:00 Test Item Value Reference Range Comments POC-GLUCOSE METER (BEAKER) 186 mg/dL 70-[address] [facility] [address] [facility] (test jwrz=8290) [facility] [address] EOSINOPHIL SMEAR, [id number] 20:29:00 Test Item Value Reference Range Comments EOSINOPHIL SMEAR, URINE (BEAKER) (test No EOS seen No EOS seen emgo=6357) BASIC METABOLIC [id number] 20:08:00 Test Item Value Reference Range Comments SODIUM (BEAKER) (test 134 meq/L 136-145 qwmt=279) POTASSIUM (BEAKER) (test 5.5 meq/L 3.5-5.1 mwbc=710) CHLORIDE (BEAKER) (test 108 meq/L 98-107 letz=139) CO2 (BEAKER) (test 19 meq/L 22-29 qxnz=992) BLOOD UREA NITROGEN 47 mg/dL 7-21 (BEAKER) (test dibu=593) CREATININE (BEAKER) (test 2.51 mg/dL 0.57-1.25 flkd=401) GLUCOSE RANDOM (BEAKER) 185 mg/dL 70-105 (test nqgt=331) CALCIUM (BEAKER) (test 9.2 mg/dL 8.4-10.2 fqfy=845) EGFR (BEAKER) (test 25 mL/min/1.73 sq m ESTIMATED GFR IS NOT cxon=0747) ACCURATE CREATININE CLEARANCE IN PREDICTING GLOMERULAR FILTRATION RATE. ESTIMATED GFR IS NOT APPLICABLE FOR DIALYSIS PATIENTS. Thank you for drawing the blood. He requires strict monitoring of K in preparation for OR tomorrow.HEMOGLOBIN AND [id number] 19:51:00 Test Item Value Reference Range Comments HEMOGLOBIN (BEAKER) (test ubji=038) 8.0 GM/DL 13.7-17.5 HEMATOCRIT (BEAKER) (test hdas=074) 26.2 % 40.1-51.0 CREATININE, RANDOM [id number] 19:03:00 Test Item Value Reference Range Comments CREATININE URINE (BEAKER) (test yqnk=881) 89.1 mg/dL Reference Range: No NormalsPROTEIN, RANDOM [id number] 19:03:00 Test Item Value Reference Range Comments PROTEIN, URINE (BEAKER) (test djsx=9568) 19 mg/dL 0-14 SODIUM, RANDOM [id number] 19:03:00 Test Item Value Reference Range Comments SODIUM URINE (BEAKER) (test pzyr=453) 90 meq/L Reference Range: No NormalsPOCT-GLUCOSE [id number] 16:48:00 Test Item Value Reference Range Comments POC-GLUCOSE METER (BEAKER) 259 mg/dL 70-[address] [facility] [address] [facility] (test tcet=2291) [facility] [address] B-TYPE NATRIURETIC FACTOR (BNP)2019-01-08 16:33:00 Test Item Value Reference Range Comments B-TYPE NATRIURETIC PEPTIDE (BEAKER) (test 219 pg/mL 0-100 gvjl=067) BASIC METABOLIC [id number] 16:32:00 Test Item Value Reference Range Comments SODIUM (BEAKER) (test 134 meq/L 136-145 mzar=187) POTASSIUM (BEAKER) (test 5.7 meq/L 3.5-5.1 luwb=159) CHLORIDE (BEAKER) (test 108 meq/L 98-107 ndgf=281) CO2 (BEAKER) (test 19 meq/L 22-29 cpqt=119) BLOOD UREA NITROGEN 49 mg/dL 7-21 (BEAKER) (test qadk=692) CREATININE (BEAKER) (test 2.68 mg/dL 0.57-1.25 reuu=663) GLUCOSE RANDOM (BEAKER) 217 mg/dL 70-105 (test ewqh=163) CALCIUM (BEAKER) (test 9.3 mg/dL 8.4-10.2 fwcr=025) EGFR (BEAKER) (test 23 mL/min/1.73 sq m ESTIMATED GFR IS NOT fmfw=4352) ACCURATE CREATININE CLEARANCE IN PREDICTING GLOMERULAR FILTRATION RATE. ESTIMATED GFR IS NOT APPLICABLE FOR DIALYSIS PATIENTS. URIC [id number] 16:30:00 Test Item Value Reference Range Comments URIC ACID (BEAKER) (test mcza=023) 8.3 mg/dL 2.6-7.2 POCT-GLUCOSE [id number] 10:00:00 Test Item Value Reference Range Comments POC-GLUCOSE METER (BEAKER) 206 mg/dL 70-[address] [facility] [address] (test rwdk=8213) [facility] [address] BASIC METABOLIC [id number] 09:58:00 Test Item Value Reference Range Comments SODIUM (BEAKER) (test 133 meq/L 136-145 jhqk=827) POTASSIUM (BEAKER) (test 6.3 meq/L 3.5-5.1 jgte=289) CHLORIDE (BEAKER) (test 107 meq/L 98-107 fpzk=669) CO2 (BEAKER) (test 20 meq/L 22-29 rbdu=030) BLOOD UREA NITROGEN 49 mg/dL 7-21 (BEAKER) (test uphl=074) CREATININE (BEAKER) (test 2.70 mg/dL 0.57-1.25 alwb=689) GLUCOSE RANDOM (BEAKER) 171 mg/dL 70-105 (test cwau=840) CALCIUM (BEAKER) (test 9.1 mg/dL 8.4-10.2 leyw=760) EGFR (BEAKER) (test 23 mL/min/1.73 sq m ESTIMATED GFR IS NOT gurv=6251) ACCURATE CREATININE CLEARANCE IN PREDICTING GLOMERULAR FILTRATION RATE. ESTIMATED GFR IS NOT APPLICABLE FOR DIALYSIS PATIENTS. [id number] 09:33:00 Test Item Value Reference Range Comments PARTIAL THROMBOPLASTIN TIME (BEAKER) (test 44.8 seconds 22.5-36.0 pcmy=990) PROTHROMBIN [id number] 09:32:00 Test Item Value Reference Range Comments PROTIME (BEAKER) (test lbzf=759) 17.4 seconds 11.7-14.7 INR (BEAKER) (test hnbi=018) 1.4 <=5.9 RECOMMENDED COUMADIN/WARFARIN INR THERAPY RANGESSTANDARD DOSE: 2.0 - 3.0 Includes: PROPHYLAXIS forvenous thrombosis, systemic embolization; TREATMENT for venous thrombosis and/or pulmonary embolus.HIGH RISK: Target INR is 2.5-3.5 for patients with mechanical heart valves.HEMOGLOBIN AND [id number] 09 :24:00 Test Item Value Reference Range Comments HEMOGLOBIN (BEAKER) (test rnsw=866) 8.0 GM/DL 13.7-17.5 HEMATOCRIT (BEAKER) (test kync=146) 27.2 % 40.1-51.0 [id number] 11:10:00Medical Cytology Report Case: [id number] Authorizing Provider: Gianna Peter MD Collected: 11/28/2018 3488 Ordering Location: [address] Received: 11/28/2018 1658 Service Pathologist: Chelsea [...] cell carcinoma. Clinical and radiologic correlation is recommended.62298, 39580, 95661 x 2; 46088; 16404 6 cm right kidney massRIGHT KIDNEYMASS FNA AND CORE BIOPSYPrepared 6 direct smear slides and cell block(A3) using collodion bag from material collected in RPMI Core biopsy collected in formalin contained two white/red fragments measuring 0.8 cm each; one 0.4 cm red fragment; one mostly white 0.9 cm fragment, and three red ragged fragments measuring 0.2 cm each, submitted entirely in A2.Collected: [id number]: [id number] FEW CELLS SUSPICIOUS FOR RENAL CELL CARCINOMA (5:17PM, 11/28/2018, )The interpretation of this case included the use of immunohistochemistry or special stains. PAX-8 and CAM5.2Immunohistochemistry technical testing was performed at [facility], Pathology Laboratory where it was [...] qualified to perform high complexity clinical laboratory testing.[facility], Department of Pathology, [address] [place] [address], [facility], [address] [place] [address], [facility], [address] [place] [address], HZBN-GLUCOSE [id number] 17:10:00 Test Item Value Reference Range Comments POC-GLUCOSE METER (BEAKER) 153 mg/dL 70-110 TESTED AT [address] (test tupf=2507) [place] [address] POCT-GLUCOSE [id number] 11:57:00 Test Item Value Reference Range Comments POC-GLUCOSE METER (BEAKER) 128 mg/dL 70-110 TESTED AT [address] (test vmvp=2533) [place] [address] POCT-GLUCOSE [id number] 07:52:00 Test Item Value Reference Range Comments POC-GLUCOSE METER (BEAKER) 121 mg/dL 70-110 TESTED AT [address] (test sami=0582) [place] [address] POCT-GLUCOSE [id number] 20:55:00 Test Item Value Reference Range Comments POC-GLUCOSE METER (BEAKER) 134 mg/dL 70-110 TESTED AT [address] (test qahi=6769) [place] [address] POCT-GLUCOSE [id number] 18:19:00 Test Item Value Reference Range Comments POC-GLUCOSE METER (BEAKER) 137 mg/dL 70-110 TESTED AT [address] (test joyk=1064) [place] [address] POCT-GLUCOSE [id number] 11:33:00 Test Item Value Reference Range Comments POC-GLUCOSE METER (BEAKER) 188 mg/dL 70-110 TESTED AT [address] (test oxtw=3338) [place] [address] POCT-GLUCOSE [id number] 07:44:00 Test Item Value Reference Range Comments POC-GLUCOSE METER (BEAKER) 143 mg/dL 70-[address] [facility] [address] [facility] (test sexo=4666) [facility] [address] POCT-GLUCOSE [id number] 21:19:00 Test Item Value Reference Range Comments POC-GLUCOSE METER (BEAKER) 156 mg/dL 70-110 TESTED AT [place] [id number] [facility] (test qwiz=6277) [facility] [address] POCT-GLUCOSE [id number] 19:08:00 Test Item Value Reference Range Comments POC-GLUCOSE METER (BEAKER) 175 mg/dL 70-110 TESTED AT [address] (test sukq=1034) [facility] [address] [id number] 15:34:00 Test Item Value Reference Range Comments PHOSPHORUS (BEAKER) (test lvgj=763) 2.3 mg/dL 2.3-4.7 [id number] 15:34:00 Test Item Value Reference Range Comments MAGNESIUM (BEAKER) (test jwlq=307) 1.2 mg/dL 1.6-2.6 BASIC METABOLIC [id number] 15:34:00 Test Item Value Reference Range Comments SODIUM (BEAKER) (test 139 meq/L 136-145 tufv=002) POTASSIUM (BEAKER) (test 3.8 meq/L 3.5-5.1 xweg=607) CHLORIDE (BEAKER) (test 110 meq/L 98-107 yjhe=157) CO2 (BEAKER) (test 20 meq/L 22-29 hqqd=975) BLOOD UREA NITROGEN 9 mg/dL 7-21 (BEAKER) (test buhn=368) CREATININE (BEAKER) (test 1.21 mg/dL 0.57-1.25 uggv=157) GLUCOSE RANDOM (BEAKER) 149 mg/dL 70-105 (test vhye=983) CALCIUM (BEAKER) (test 8.8 mg/dL 8.4-10.2 jagt=880) EGFR (BEAKER) (test 58 mL/min/1.73 sq m ESTIMATED GFR IS NOT gwhy=4572) ACCURATE CREATININE CLEARANCE IN PREDICTING GLOMERULAR FILTRATION RATE. ESTIMATED GFR IS NOT APPLICABLE FOR DIALYSIS PATIENTS. HEMOGLOBIN AND [id number] 15:16:00 Test Item Value Reference Range Comments HEMOGLOBIN (BEAKER) (test fzso=201) 8.9 GM/DL 13.7-17.5 HEMATOCRIT (BEAKER) (test fmuv=975) 28.9 % 40.1-51.0 POCT-GLUCOSE [id number] 12:46:00 Test Item Value Reference Range Comments POC-GLUCOSE METER (BEAKER) 195 mg/dL 70-110 TESTED AT [address] (test nfuu=0182) [place] [address] POCT-GLUCOSE [id number] 08:26:00 Test Item Value Reference Range Comments POC-GLUCOSE METER (BEAKER) 113 mg/dL 70-110 TESTED AT [address] (test lqcg=9696) [place] [address] HEMOGLOBIN AND [id number] 23:04:00 Test Item Value Reference Range Comments HEMOGLOBIN (BEAKER) (test kstr=782) 9.2 GM/DL 13.7-17.5 HEMATOCRIT (BEAKER) (test drzi=742) 30.2 % 40.1-51.0 POCT-GLUCOSE [id number] 21:02:00 Test Item Value Reference Range Comments POC-GLUCOSE METER (BEAKER) 106 mg/dL 70-110 TESTED AT [address] (test gnal=3905) [place] [address] POCT-GLUCOSE [id number] 18:35:00 Test Item Value Reference Range Comments POC-GLUCOSE METER (BEAKER) 128 mg/dL 70-110 TESTED AT [address] (test ntng=6363) [place] [address] U/S, BIOPSY, RENAL (KIDNEY)2018-11-28 17:54:00Reason for exam:->R sided kidney mass, biopsy neededFINAL REPORT Ultrasound guided fine-needle aspiration and core biopsy dated 11/28/2018 Procedure: Fine- needle aspiration and core biopsy of the right renal mass Pre-procedure diagnosis: Right renal mass Post-procedure diagnosis: Right renal mass Radiologist: Lurdes Fernandes MD Manager Line: None Sedation: Moderate sedation was administered. 1.5 [...] Fernandes Verified Date/Time: 11/28 17:54:55 Reading Location: [address] Ultrasound Reading Room U/S, ASPIRATION/[id number] 17:54:00Reason for exam:->R sided kidney mass , biopsy neededFINAL REPORT Ultrasound guided fine- needle aspiration and core biopsy dated 11/28/2018 Procedure: Fine-needle aspiration and core biopsy of the right renal mass Pre-procedure diagnosis: Right renal mass Post-procedure diagnosis: Right renal mass Radiologist: Lurdes Fernandes MD Manager Line: None Sedation: Moderate sedation was administered. 1.5 [...] Verified Date/Time: 11/28/2018 17:54: 55 Reading Location: [address] Ultrasound Reading Room POCT-GLUCOSE [id number] 12:01:00 Test Item Value Reference Range Comments POC-GLUCOSE METER (BEAKER) 133 mg/dL 70-[address] [facility] [address] [facility] (test qipm=1182) [facility] [address] POCT-GLUCOSE [id number] 08:12:00 Test Item Value Reference Range Comments POC-GLUCOSE METER (BEAKER) 139 mg/dL 70-110 TESTED AT [place] [id number] [facility] (test wthi=0848) [facility] [address] CALCIUM, [id number] 07:20:00 Test Item Value Reference Range Comments CALCIUM IONIZED (BEAKER) (test ebsm=993) 1.10 mmol/L 1.12-1.27 PH, BLOOD (BEAKER) (test eokx=3182) 7.40 BLOOD [id number] 07:01:00 Test Item Value Reference Range Comments CULTURE (BEAKER) (test dmky=7922) No growth in 5 days [id number] 06:10:00 Test Item Value Reference Range Comments PHOSPHORUS (BEAKER) (test yzak=426) 2.0 mg/dL 2.3-4.7 [id number] 06:10:00 Test Item Value Reference Range Comments MAGNESIUM (BEAKER) (test dgol=960) 1.6 mg/dL 1.6-2.6 BASIC METABOLIC [id number] 06:10:00 Test Item Value Reference Range Comments SODIUM (BEAKER) (test 140 meq/L 136-145 xnhc=942) POTASSIUM (BEAKER) (test 3.8 meq/L 3.5-5.1 feow=979) CHLORIDE (BEAKER) (test 112 meq/L 98-107 rwxf=797) CO2 (BEAKER) (test 19 meq/L 22-29 ukcy=903) BLOOD UREA NITROGEN 9 mg/dL 7-21 (BEAKER) (test eqhu=612) CREATININE (BEAKER) (test 1.08 mg/dL 0.57-1.25 cbde=044) GLUCOSE RANDOM (BEAKER) 120 mg/dL 70-105 (test qybg=833) CALCIUM (BEAKER) (test 8.5 mg/dL 8.4-10.2 wlbq=081) EGFR (BEAKER) (test 67 mL/min/1.73 sq m ESTIMATED GFR IS NOT anzt=5119) ACCURATE CREATININE CLEARANCE IN PREDICTING GLOMERULAR FILTRATION RATE. ESTIMATED GFR IS NOT APPLICABLE FOR DIALYSIS PATIENTS. CBC W/PLT COUNT & AUTO [id number] 05:33:00 Test Item Value Reference Range Comments WHITE BLOOD CELL COUNT (BEAKER) (test xyme=131) 8.2 K/ L 3.5-10.5 RED BLOOD CELL COUNT (BEAKER) (test lrrg=639) 3.68 M/ L 4.63-6.08 HEMOGLOBIN (BEAKER) (test cgro=738) 9.4 GM/DL 13.7-17.5 HEMATOCRIT (BEAKER) (test zqym=589) 31.1 % 40.1-51.0 MEAN CORPUSCULAR VOLUME (BEAKER) (test zrhi=524) 84.5 fL 79.0-92.2 MEAN CORPUSCULAR HEMOGLOBIN (BEAKER) (test 25.5 pg 25.7-32.2 hcsv=017) MEAN CORPUSCULAR HEMOGLOBIN CONC (BEAKER) (test 30.2 GM/DL 32.3-36.5 ybdm=101) RED CELL DISTRIBUTION WIDTH (BEAKER) (test 22.4 % 11.6-14.4 pbcb=385) PLATELET COUNT (BEAKER) (test ginw=209) 274 K/CU MM 150-450 MEAN PLATELET VOLUME (BEAKER) (test ashc=216) 9.9 fL 9.4-12.4 NUCLEATED RED BLOOD CELLS (BEAKER) (test 0 /100 WBC 0-0 uxkz=737) NEUTROPHILS RELATIVE PERCENT (BEAKER) (test 59 % vfdf=807) LYMPHOCYTES RELATIVE PERCENT (BEAKER) (test 28 % vaod=670) MONOCYTES RELATIVE PERCENT (BEAKER) (test 6 % xcrz=159) EOSINOPHILS RELATIVE PERCENT (BEAKER) (test 5 % wsca=065) BASOPHILS RELATIVE PERCENT (BEAKER) (test 1 % pnas=083) NEUTROPHILS ABSOLUTE COUNT (BEAKER) (test 4.80 K/ L 1.78-5.38 chws=721) LYMPHOCYTES ABSOLUTE COUNT (BEAKER) (test 2.30 K/ L 1.32-3.57 xmex=129) MONOCYTES ABSOLUTE COUNT (BEAKER) (test 0.52 K/ L 0.30-0.82 jsnd=713) EOSINOPHILS ABSOLUTE COUNT (BEAKER) (test 0.39 K/ L 0.04-0.54 jgjr=570) BASOPHILS ABSOLUTE COUNT (BEAKER) (test 0.05 K/ L 0.01-0.08 jnnw=516) IMMATURE GRANULOCYTES-RELATIVE PERCENT (BEAKER) 1 % 0-1 (test myiq=0396) POCT-GLUCOSE [id number] 22:53:00 Test Item Value Reference Range Comments POC-GLUCOSE METER (BEAKER) 105 mg/dL 70-110 TESTED AT [address] (test necy=6553) [facility] [address] BLOOD [id number] 19:01:00 Test Item Value Reference Range Comments CULTURE (BEAKER) (test xifo=3611) No growth in 5 days POCT-GLUCOSE [id number] 16:46:00 Test Item Value Reference Range Comments POC-GLUCOSE METER (BEAKER) 120 mg/dL 70-110 TESTED AT [address] (test buiw=6399) [facility] [address] POCT-GLUCOSE [id number] 12:49:00 Test Item Value Reference Range Comments POC-GLUCOSE METER (BEAKER) 140 mg/dL 70-110 TESTED AT [address] (test vpqg=0550) [facility] [address] POCT-GLUCOSE [id number] 08:33:00 Test Item Value Reference Range Comments POC-GLUCOSE METER (BEAKER) 138 mg/dL 70-110 TESTED AT [address] (test rbxr=8969) [facility] [address] CALCIUM, [id number] 07:28:00 Test Item Value Reference Range Comments CALCIUM IONIZED (BEAKER) (test ngxo=418) 1.10 mmol/L 1.12-1.27 PH, BLOOD (BEAKER) (test bdaf=7689) 7.39 [id number] 06:54:00 Test Item Value Reference Range Comments PHOSPHORUS (BEAKER) (test ygvm=808) 2.3 mg/dL 2.3-4.7 [id number] 06:54:00 Test Item Value Reference Range Comments MAGNESIUM (BEAKER) (test kelc=005) 1.7 mg/dL 1.6-2.6 BASIC METABOLIC [id number] 06:54:00 Test Item Value Reference Range Comments SODIUM (BEAKER) (test 140 meq/L 136-145 pjwt=809) POTASSIUM (BEAKER) (test 3.7 meq/L 3.5-5.1 bwcy=122) CHLORIDE (BEAKER) (test 112 meq/L 98-107 ildt=206) CO2 (BEAKER) (test 19 meq/L 22-29 gqhr=209) BLOOD UREA NITROGEN 10 mg/dL 7-21 (BEAKER) (test pham=225) CREATININE (BEAKER) (test 1.05 mg/dL 0.57-1.25 lrjc=949) GLUCOSE RANDOM (BEAKER) 112 mg/dL 70-105 (test wmtf=590) CALCIUM (BEAKER) (test 8.6 mg/dL 8.4-10.2 jmvk=366) EGFR (BEAKER) (test 69 mL/min/1.73 sq m ESTIMATED GFR IS NOT xczx=5138) ACCURATE CREATININE CLEARANCE IN PREDICTING GLOMERULAR FILTRATION RATE. ESTIMATED GFR IS NOT APPLICABLE FOR DIALYSIS PATIENTS. CBC W/PLT COUNT & AUTO [id number] 06:50:00 Test Item Value Reference Range Comments WHITE BLOOD CELL COUNT (BEAKER) (test dezt=389) 8.4 K/ L 3.5-10.5 RED BLOOD CELL COUNT (BEAKER) (test oyas=941) 3.42 M/ L 4.63-6.08 HEMOGLOBIN (BEAKER) (test uklx=265) 8.7 GM/DL 13.7-17.5 HEMATOCRIT (BEAKER) (test tuqa=291) 28.7 % 40.1-51.0 MEAN CORPUSCULAR VOLUME (BEAKER) (test vddc=807) 83.9 fL 79.0-92.2 MEAN CORPUSCULAR HEMOGLOBIN (BEAKER) (test 25.4 pg 25.7-32.2 ryqk=624) MEAN CORPUSCULAR HEMOGLOBIN CONC (BEAKER) (test 30.3 GM/DL 32.3-36.5 dpiu=458) RED CELL DISTRIBUTION WIDTH (BEAKER) (test 21.6 % 11.6-14.4 fzpo=352) PLATELET COUNT (BEAKER) (test yvjo=424) 234 K/CU MM 150-450 MEAN PLATELET VOLUME (BEAKER) (test flyv=685) 10.1 fL 9.4-12.4 NUCLEATED RED BLOOD CELLS (BEAKER) (test 0 /100 WBC 0-0 azza=364) NEUTROPHILS RELATIVE PERCENT (BEAKER) (test 62 % notj=814) LYMPHOCYTES RELATIVE PERCENT (BEAKER) (test 25 % hsha=080) MONOCYTES RELATIVE PERCENT (BEAKER) (test 6 % ufjq=014) EOSINOPHILS RELATIVE PERCENT (BEAKER) (test 6 % pqgj=214) BASOPHILS RELATIVE PERCENT (BEAKER) (test 1 % fxps=830) NEUTROPHILS ABSOLUTE COUNT (BEAKER) (test 5.21 K/ L 1.78-5.38 kjop=571) LYMPHOCYTES ABSOLUTE COUNT (BEAKER) (test 2.11 K/ L 1.32-3.57 yblh=786) MONOCYTES ABSOLUTE COUNT (BEAKER) (test 0.49 K/ L 0.30-0.82 ypud=387) EOSINOPHILS ABSOLUTE COUNT (BEAKER) (test 0.46 K/ L 0.04-0.54 yocq=516) BASOPHILS ABSOLUTE COUNT (BEAKER) (test 0.06 K/ L 0.01-0.08 daas=142) IMMATURE GRANULOCYTES-RELATIVE PERCENT (BEAKER) 1 % 0-1 (test adjy=7160) POCT-GLUCOSE [id number] 21:25:00 Test Item Value Reference Range Comments POC-GLUCOSE METER (BEAKER) 118 mg/dL 70-110 TESTED AT [address] (test gwop=6202) [place] [address] POCT-GLUCOSE [id number] 17:54:00 Test Item Value Reference Range Comments POC-GLUCOSE METER (BEAKER) 138 mg/dL 70-110 TESTED AT [address] (test oiuk=1254) [place] [address] [id number] 11:52:00 Test Item Value Reference Range Comments PHOSPHORUS (BEAKER) (test udor=484) 1.5 mg/dL 2.3-4.7 [id number] 11:42:00 Test Item Value Reference Range Comments MAGNESIUM (BEAKER) (test utsh=915) 1.7 mg/dL 1.6-2.6 BASIC METABOLIC [id number] 11:42:00 Test Item Value Reference Range Comments SODIUM (BEAKER) (test 141 meq/L 136-145 rncn=755) POTASSIUM (BEAKER) (test 3.6 meq/L 3.5-5.1 tehf=717) CHLORIDE (BEAKER) (test 114 meq/L 98-107 hbtx=979) CO2 (BEAKER) (test 20 meq/L 22-29 ojvv=691) BLOOD UREA NITROGEN 13 mg/dL 7-21 (BEAKER) (test pscp=821) CREATININE (BEAKER) (test 1.27 mg/dL 0.57-1.25 ektk=955) GLUCOSE RANDOM (BEAKER) 135 mg/dL 70-105 (test ffwl=763) CALCIUM (BEAKER) (test 8.7 mg/dL 8.4-10.2 xwfe=105) EGFR (BEAKER) (test 55 mL/min/1.73 sq m ESTIMATED GFR IS NOT eyna=8328) ACCURATE CREATININE CLEARANCE IN PREDICTING GLOMERULAR FILTRATION RATE. ESTIMATED GFR IS NOT APPLICABLE FOR DIALYSIS PATIENTS. [id number] 11:41:00 Test Item Value Reference Range Comments PROTIME (BEAKER) (test audm=148) 16.7 seconds 11.7-14.7 INR (BEAKER) (test aifp=708) 1.3 <=5.9 PARTIAL THROMBOPLASTIN TIME (BEAKER) (test 48.5 seconds 22.5-36.0 ygvu=724) RECOMMENDED COUMADIN/WARFARIN INR THERAPY RANGESSTANDARD DOSE: 2.0 - 3.0 Includes: PROPHYLAXIS forvenous thrombosis, systemic embolization; TREATMENT for venous thrombosis and/or pulmonary embolus.HIGH RISK: Target INR is 2.5-3.5 for patients with mechanical heart valves.MRSA [id number] 11:31:00 Test Item Value Reference Range Comments CULTURE (BEAKER) (test uifc=8614) No MRSA isolated CBC (HEMOGRAM ONLY)2018-11-26 11:28:00 Test Item Value Reference Range Comments WHITE BLOOD CELL COUNT (BEAKER) (test ibby=945) 7.1 K/ L 3.5-10.5 RED BLOOD CELL COUNT (BEAKER) (test tzua=892) 3.36 M/ L 4.63-6.08 HEMOGLOBIN (BEAKER) (test aysr=295) 8.5 GM/DL 13.7-17.5 HEMATOCRIT (BEAKER) (test cxvc=262) 28.4 % 40.1-51.0 MEAN CORPUSCULAR VOLUME (BEAKER) (test oxhu=362) 84.5 fL 79.0-92.2 MEAN CORPUSCULAR HEMOGLOBIN (BEAKER) (test 25.3 pg 25.7-32.2 vade=537) MEAN CORPUSCULAR HEMOGLOBIN CONC (BEAKER) (test 29.9 GM/DL 32.3-36.5 uarb=394) RED CELL DISTRIBUTION WIDTH (BEAKER) (test 21.6 % 11.6-14.4 wjdn=583) PLATELET COUNT (BEAKER) (test faxb=272) 214 K/CU MM 150-450 MEAN PLATELET VOLUME (BEAKER) (test qcrb=484) 9.6 fL 9.4-12.4 NUCLEATED RED BLOOD CELLS (BEAKER) (test 0 /100 WBC 0-0 ssgv=092) POCT-GLUCOSE [id number] 07:38:00 Test Item Value Reference Range Comments POC-GLUCOSE METER (BEAKER) 174 mg/dL 70-110 TESTED AT [address] (test xghg=2643) [place] [address] POCT-GLUCOSE [id number] 20:27:00 Test Item Value Reference Range Comments POC-GLUCOSE METER (BEAKER) 199 mg/dL 70-110 TESTED AT [address] (test jguz=9120) [place] [id number] POCT-GLUCOSE [id number] 17:55:00 Test Item Value Reference Range Comments POC-GLUCOSE METER (BEAKER) 196 mg/dL 70-110 TESTED AT [address] (test umna=8976) [place] [address] POCT-GLUCOSE [id number] 11:56:00 Test Item Value Reference Range Comments POC-GLUCOSE METER (BEAKER) 209 mg/dL 70-110 TESTED AT [address] (test csom=4377) [place] [id number] KIDNEY IMAGING, SINGLE, FLOW/[id number] 11:35:00FINAL REPORT PROCEDURE: Functional RENAL SCAN, flow and function CPT CODE: 67994 INDICATION: R rcca, eval differential renal function, [...] Verified Date/Time: 11/25/2018 11:35:45 Reading Location : [address] Reading Room [id number] 10:00:00 Test Item Value Reference Range Comments PHOSPHORUS (BEAKER) (test lnua=515) 1.7 mg/dL 2.3-4.7 [id number] 10:00:00 Test Item Value Reference Range Comments MAGNESIUM (BEAKER) (test mvny=706) 2.0 mg/dL 1.6-2.6 BASIC METABOLIC [id number] 10:00:00 Test Item Value Reference Range Comments SODIUM (BEAKER) (test 141 meq/L 136-145 fqhx=750) POTASSIUM (BEAKER) (test 3.5 meq/L 3.5-5.1 fupy=223) CHLORIDE (BEAKER) (test 113 meq/L 98-107 cvrg=100) CO2 (BEAKER) (test 22 meq/L 22-29 zduc=890) BLOOD UREA NITROGEN 20 mg/dL 7-21 (BEAKER) (test dqyh=108) CREATININE (BEAKER) (test 1.50 mg/dL 0.57-1.25 vmhs=977) GLUCOSE RANDOM (BEAKER) 164 mg/dL 70-105 (test ngax=696) CALCIUM (BEAKER) (test 8.9 mg/dL 8.4-10.2 otwv=630) EGFR (BEAKER) (test 46 mL/min/1.73 sq m ESTIMATED GFR IS NOT ptcf=9142) ACCURATE CREATININE CLEARANCE IN PREDICTING GLOMERULAR FILTRATION RATE. ESTIMATED GFR IS NOT APPLICABLE FOR DIALYSIS PATIENTS. CBC W/PLT COUNT & AUTO [id number] 10:00:00 Test Item Value Reference Range Comments WHITE BLOOD CELL COUNT (BEAKER) (test uceu=632) 7.6 K/ L 3.5-10.5 RED BLOOD CELL COUNT (BEAKER) (test slbt=500) 3.58 M/ L 4.63-6.08 HEMOGLOBIN (BEAKER) (test cket=426) 9.0 GM/DL 13.7-17.5 HEMATOCRIT (BEAKER) (test nbkn=416) 30.4 % 40.1-51.0 MEAN CORPUSCULAR VOLUME (BEAKER) (test ikbv=160) 84.9 fL 79.0-92.2 MEAN CORPUSCULAR HEMOGLOBIN (BEAKER) (test 25.1 pg 25.7-32.2 czwi=524) MEAN CORPUSCULAR HEMOGLOBIN CONC (BEAKER) (test 29.6 GM/DL 32.3-36.5 wzss=367) RED CELL DISTRIBUTION WIDTH (BEAKER) (test 22.0 % 11.6-14.4 pmhq=900) PLATELET COUNT (BEAKER) (test oews=796) 252 K/CU MM 150-450 MEAN PLATELET VOLUME (BEAKER) (test igzv=567) 10.5 fL 9.4-12.4 NUCLEATED RED BLOOD CELLS (BEAKER) (test 0 /100 WBC 0-0 wtxx=585) NEUTROPHILS RELATIVE PERCENT (BEAKER) (test 61 % cosw=783) LYMPHOCYTES RELATIVE PERCENT (BEAKER) (test 25 % pfew=061) MONOCYTES RELATIVE PERCENT (BEAKER) (test 6 % yflu=782) EOSINOPHILS RELATIVE PERCENT (BEAKER) (test 7 % rtud=999) BASOPHILS RELATIVE PERCENT (BEAKER) (test 1 % fhuk=113) NEUTROPHILS ABSOLUTE COUNT (BEAKER) (test 4.69 K/ L 1.78-5.38 htjv=164) LYMPHOCYTES ABSOLUTE COUNT (BEAKER) (test 1.88 K/ L 1.32-3.57 gzdp=251) MONOCYTES ABSOLUTE COUNT (BEAKER) (test 0.45 K/ L 0.30-0.82 ljbr=076) EOSINOPHILS ABSOLUTE COUNT (BEAKER) (test 0.55 K/ L 0.04-0.54 urrx=739) BASOPHILS ABSOLUTE COUNT (BEAKER) (test 0.05 K/ L 0.01-0.08 nzwl=965) IMMATURE GRANULOCYTES-RELATIVE PERCENT (BEAKER) 0 % 0-1 (test enzy=3860) CALCIUM, [id number] 09:39:00 Test Item Value Reference Range Comments CALCIUM IONIZED (BEAKER) (test qqlw=645) 1.12 mmol/L 1.12-1.27 PH, BLOOD (BEAKER) (test zbkn=4111) 7.33 POCT-GLUCOSE [id number] 07:56:00 Test Item Value Reference Range Comments POC-GLUCOSE METER (BEAKER) 186 mg/dL 70-110 TESTED AT [address] (test teyq=1894) [facility] [address] POCT-GLUCOSE [id number] 20:37:00 Test Item Value Reference Range Comments POC-GLUCOSE METER (BEAKER) 225 mg/dL 70-110 TESTED AT [address] (test peft=6543) [facility] [address] POCT-GLUCOSE [id number] 18:21:00 Test Item Value Reference Range Comments POC-GLUCOSE METER (BEAKER) 234 mg/dL 70-110 TESTED AT [address] (test drrg=0759) [facility] [address] PUL PERF IMAGING, PARTIC, [id number] 12:25:00FINAL REPORT PROCEDURE: V/Q LUNG SCAN CPT CODE: [id number] INDICATION: Acute chest pain PROTOCOL: 10.7 mCi [...] Verified Date/Time: 11/24/2018 12: 25:50 Reading Location: [address] Reading Room POCT- GLUCOSE [id number] 11:33:00 Test Item Value Reference Range Comments POC-GLUCOSE METER (BEAKER) 220 mg/dL 70-110 TESTED AT [address] (test vhdj=3743) [facility] [address] CELIAC DISEASE [id number] 09:20:00 Test Item Value Reference Range Comments SCAN RESULT (test wvwu=[id number]) CELIAC DISEASE PROFILE Refer to Celiac Disease AUTOVERIFICATION (QUEST) (test Panel results. wpjo=[id number]) POCT-GLUCOSE [id number] 07:46:00 Test Item Value Reference Range Comments POC-GLUCOSE METER (BEAKER) 162 mg/dL 70-110 TESTED AT [address] (test taue=9222) [place] [id number] CALCIUM, [id number] 07:34:00 Test Item Value Reference Range Comments CALCIUM IONIZED (BEAKER) (test svcd=193) 1.09 mmol/L 1.12-1.27 PH, BLOOD (BEAKER) (test qwum=7038) 7.44 [id number] 06:31:00 Test Item Value Reference Range Comments PHOSPHORUS (BEAKER) (test olvm=203) 2.6 mg/dL 2.3-4.7 [id number] 06:31:00 Test Item Value Reference Range Comments MAGNESIUM (BEAKER) (test omnk=533) 1.8 mg/dL 1.6-2.6 COMPREHENSIVE METABOLIC [id number] 06:31:00 Test Item Value Reference Range Comments TOTAL PROTEIN (BEAKER) 5.7 gm/dL 6.0-8.3 (test xoqs=314) ALBUMIN (BEAKER) (test 3.0 g/dL 3.5-5.0 qdkx=9496) ALKALINE PHOSPHATASE 50 U/L 40-150 (BEAKER) (test rfxd=363) BILIRUBIN TOTAL (BEAKER) 0.4 mg/dL 0.2-1.2 (test yuvs=438) SODIUM (BEAKER) (test 141 meq/L 136-145 hpww=857) POTASSIUM (BEAKER) (test 3.0 meq/L 3.5-5.1 uaxn=142) CHLORIDE (BEAKER) (test 112 meq/L 98-107 ogig=950) CO2 (BEAKER) (test 19 meq/L 22-29 ncgl=727) BLOOD UREA NITROGEN 28 mg/dL 7-21 (BEAKER) (test dfpl=851) CREATININE (BEAKER) (test 1.65 mg/dL 0.57-1.25 dndt=119) GLUCOSE RANDOM (BEAKER) 132 mg/dL 70-105 (test opoe=611) CALCIUM (BEAKER) (test 8.5 mg/dL 8.4-10.2 rxyr=163) AST (SGOT) (BEAKER) (test 8 U/L 5-34 cyxz=700) ALT (SGPT) (BEAKER) (test 8 U/L 6-55 jexd=884) EGFR (BEAKER) (test 41 mL/min/1.73 sq m ESTIMATED GFR IS NOT kafe=1300) ACCURATE CREATININE CLEARANCE IN PREDICTING GLOMERULAR FILTRATION RATE. ESTIMATED GFR IS NOT APPLICABLE FOR DIALYSIS PATIENTS. VANCOMYCIN LEVEL, [id number] 06:19:00 Test Item Value Reference Range Comments VANCOMYCIN TROUGH (BEAKER) (test dsyg=543) 17.7 ug/mL 10.0-20.0 Hold dose if trough >20 mcg/mlCBC W/PLT COUNT & AUTO [id number] 06:10:00 Test Item Value Reference Range Comments WHITE BLOOD CELL COUNT (BEAKER) (test yoew=837) 12.2 K/ L 3.5-10.5 RED BLOOD CELL COUNT (BEAKER) (test yqlc=327) 3.03 M/ L 4.63-6.08 HEMOGLOBIN (BEAKER) (test yzol=178) 7.8 GM/DL 13.7-17.5 HEMATOCRIT (BEAKER) (test ajuj=367) 25.8 % 40.1-51.0 MEAN CORPUSCULAR VOLUME (BEAKER) (test aiqn=937) 85.1 fL 79.0-92.2 MEAN CORPUSCULAR HEMOGLOBIN (BEAKER) (test 25.7 pg 25.7-32.2 txos=957) MEAN CORPUSCULAR HEMOGLOBIN CONC (BEAKER) (test 30.2 GM/DL 32.3-36.5 pbdy=220) RED CELL DISTRIBUTION WIDTH (BEAKER) (test 22.2 % 11.6-14.4 xkwm=507) PLATELET COUNT (BEAKER) (test xwhh=117) 204 K/CU MM 150-450 MEAN PLATELET VOLUME (BEAKER) (test hekv=906) 10.5 fL 9.4-12.4 NUCLEATED RED BLOOD CELLS (BEAKER) (test 0 /100 WBC 0-0 jcsh=816) NEUTROPHILS RELATIVE PERCENT (BEAKER) (test 74 % pzpm=772) LYMPHOCYTES RELATIVE PERCENT (BEAKER) (test 15 % stzu=710) MONOCYTES RELATIVE PERCENT (BEAKER) (test 6 % yvxh=231) EOSINOPHILS RELATIVE PERCENT (BEAKER) (test 5 % vies=872) BASOPHILS RELATIVE PERCENT (BEAKER) (test 0 % huhk=484) NEUTROPHILS ABSOLUTE COUNT (BEAKER) (test 9.02 K/ L 1.78-5.38 izre=958) LYMPHOCYTES ABSOLUTE COUNT (BEAKER) (test 1.85 K/ L 1.32-3.57 wrbm=012) MONOCYTES ABSOLUTE COUNT (BEAKER) (test 0.67 K/ L 0.30-0.82 czxg=352) EOSINOPHILS ABSOLUTE COUNT (BEAKER) (test 0.58 K/ L 0.04-0.54 ndca=049) BASOPHILS ABSOLUTE COUNT (BEAKER) (test 0.03 K/ L 0.01-0.08 nlwq=492) IMMATURE GRANULOCYTES-RELATIVE PERCENT (BEAKER) 1 % 0-1 (test eznt=3933) POCT-GLUCOSE [id number] 21:24:00 Test Item Value Reference Range Comments POC-GLUCOSE METER (BEAKER) 227 mg/dL 70-110 TESTED AT [address] (test vjle=6211) [facility] [address] POCT-GLUCOSE [id number] 17:44:00 Test Item Value Reference Range Comments POC-GLUCOSE METER (BEAKER) 257 mg/dL 70-110 TESTED AT [address] (test lcfj=7527) [facility] [address] POCT-GLUCOSE [id number] 11:33:00 Test Item Value Reference Range Comments POC-GLUCOSE METER (BEAKER) 297 mg/dL 70-110 TESTED AT [address] (test qany=8673) [facility] [address] POCT-GLUCOSE [id number] 07:49:00 Test Item Value Reference Range Comments POC-GLUCOSE METER (BEAKER) 185 mg/dL 70-[address] [facility] [address] (test gonn=8564) [place] [address] CALCIUM, [id number] 07:30:00 Test Item Value Reference Range Comments CALCIUM IONIZED (BEAKER) (test aiqh=468) 1.05 mmol/L 1.12-1.27 PH, BLOOD (BEAKER) (test mxhb=0886) 7.45 [id number] 06:25:00 Test Item Value Reference Range Comments PHOSPHORUS (BEAKER) (test ewkx=965) 2.8 mg/dL 2.3-4.7 [id number] 06:25:00 Test Item Value Reference Range Comments MAGNESIUM (BEAKER) (test oaje=441) 1.7 mg/dL 1.6-2.6 COMPREHENSIVE METABOLIC [id number] 06:25:00 Test Item Value Reference Range Comments TOTAL PROTEIN (BEAKER) 5.7 gm/dL 6.0-8.3 (test rkry=328) ALBUMIN (BEAKER) (test 3.1 g/dL 3.5-5.0 xlnn=8981) ALKALINE PHOSPHATASE 62 U/L 40-150 (BEAKER) (test cwwf=595) BILIRUBIN TOTAL (BEAKER) 0.7 mg/dL 0.2-1.2 (test ecuj=249) SODIUM (BEAKER) (test 136 meq/L 136-145 dini=132) POTASSIUM (BEAKER) (test 3.2 meq/L 3.5-5.1 xxwm=811) CHLORIDE (BEAKER) (test 108 meq/L 98-107 ueuz=225) CO2 (BEAKER) (test 18 meq/L 22-29 xwgs=016) BLOOD UREA NITROGEN 28 mg/dL 7-21 (BEAKER) (test bepu=908) CREATININE (BEAKER) (test 2.10 mg/dL 0.57-1.25 rmla=243) GLUCOSE RANDOM (BEAKER) 156 mg/dL 70-105 (test tzbl=001) CALCIUM (BEAKER) (test 8.4 mg/dL 8.4-10.2 keeq=449) AST (SGOT) (BEAKER) (test 7 U/L 5-34 vmlb=016) ALT (SGPT) (BEAKER) (test 7 U/L 6-55 fcnm=670) EGFR (BEAKER) (test 31 mL/min/1.73 sq m ESTIMATED GFR IS NOT fcbx=9353) ACCURATE CREATININE CLEARANCE IN PREDICTING GLOMERULAR FILTRATION RATE. ESTIMATED GFR IS NOT APPLICABLE FOR DIALYSIS PATIENTS. B-TYPE NATRIURETIC FACTOR (BNP)2018-11-23 06:20:00 Test Item Value Reference Range Comments B-TYPE NATRIURETIC PEPTIDE (BEAKER) (test 157 pg/mL 0-100 jhxd=868) CBC W/PLT COUNT & AUTO [id number] 05:56:00 Test Item Value Reference Range Comments WHITE BLOOD CELL COUNT (BEAKER) (test iaxd=211) 17.8 K/ L 3.5-10.5 RED BLOOD CELL COUNT (BEAKER) (test rtgz=825) 3.25 M/ L 4.63-6.08 HEMOGLOBIN (BEAKER) (test aozn=077) 8.3 GM/DL 13.7-17.5 HEMATOCRIT (BEAKER) (test gqcg=155) 27.1 % 40.1-51.0 MEAN CORPUSCULAR VOLUME (BEAKER) (test lpcy=776) 83.4 fL 79.0-92.2 MEAN CORPUSCULAR HEMOGLOBIN (BEAKER) (test 25.5 pg 25.7-32.2 tolk=553) MEAN CORPUSCULAR HEMOGLOBIN CONC (BEAKER) (test 30.6 GM/DL 32.3-36.5 dybt=532) RED CELL DISTRIBUTION WIDTH (BEAKER) (test 22.4 % 11.6-14.4 radg=766) PLATELET COUNT (BEAKER) (test pepn=600) 198 K/CU MM 150-450 MEAN PLATELET VOLUME (BEAKER) (test womi=823) 10.1 fL 9.4-12.4 NUCLEATED RED BLOOD CELLS (BEAKER) (test 0 /100 WBC 0-0 dlcd=056) NEUTROPHILS RELATIVE PERCENT (BEAKER) (test 82 % qvbe=560) LYMPHOCYTES RELATIVE PERCENT (BEAKER) (test 10 % tsfi=917) MONOCYTES RELATIVE PERCENT (BEAKER) (test 6 % eatw=215) EOSINOPHILS RELATIVE PERCENT (BEAKER) (test 1 % jhts=727) BASOPHILS RELATIVE PERCENT (BEAKER) (test 0 % zflc=628) NEUTROPHILS ABSOLUTE COUNT (BEAKER) (test 14.60 K/ L 1.78-5.38 uhhq=780) LYMPHOCYTES ABSOLUTE COUNT (BEAKER) (test 1.71 K/ L 1.32-3.57 awop=089) MONOCYTES ABSOLUTE COUNT (BEAKER) (test 1.03 K/ L 0.30-0.82 xqzq=921) EOSINOPHILS ABSOLUTE COUNT (BEAKER) (test 0.22 K/ L 0.04-0.54 dbxp=213) BASOPHILS ABSOLUTE COUNT (BEAKER) (test 0.03 K/ L 0.01-0.08 jjfy=243) IMMATURE GRANULOCYTES-RELATIVE PERCENT (BEAKER) 1 % 0-1 (test snxg=8181) CT, CHEST, WITHOUT [id number] 04:37:00Replaces exam w contrastFINAL REPORT EXAMINATION: Noncontrast [...] MDReport Verified Date/Time: 2018 04:37:26 Reading Location: [address] Reading Room LACTIC ACID , VENOUS, WHOLE [id number] 00:50:00 Test Item Value Reference Range Comments LACTATE BLOOD VENOUS (2) (BEAKER) (test 2.3 mmol/L 0.5-2.2 wnjf=1875) CBC W/PLT COUNT & AUTO [id number] 00:34:00 Test Item Value Reference Range Comments WHITE BLOOD CELL COUNT (BEAKER) (test zfom=387) 19.5 K/ L 3.5-10.5 RED BLOOD CELL COUNT (BEAKER) (test eolc=594) 3.63 M/ L 4.63-6.08 HEMOGLOBIN (BEAKER) (test vvak=161) 9.1 GM/DL 13.7-17.5 HEMATOCRIT (BEAKER) (test bylk=016) 31.0 % 40.1-51.0 MEAN CORPUSCULAR VOLUME (BEAKER) (test luaf=410) 85.4 fL 79.0-92.2 MEAN CORPUSCULAR HEMOGLOBIN (BEAKER) (test 25.1 pg 25.7-32.2 nfhu=259) MEAN CORPUSCULAR HEMOGLOBIN CONC (BEAKER) (test 29.4 GM/DL 32.3-36.5 oeqm=525) RED CELL DISTRIBUTION WIDTH (BEAKER) (test 22.2 % 11.6-14.4 ikmw=286) PLATELET COUNT (BEAKER) (test swfx=247) 218 K/CU MM 150-450 MEAN PLATELET VOLUME (BEAKER) (test xypn=107) 10.1 fL 9.4-12.4 NUCLEATED RED BLOOD CELLS (BEAKER) (test 0 /100 WBC 0-0 uhwu=013) NEUTROPHILS RELATIVE PERCENT (BEAKER) (test 84 % nsxi=784) LYMPHOCYTES RELATIVE PERCENT (BEAKER) (test 7 % julf=046) MONOCYTES RELATIVE PERCENT (BEAKER) (test 6 % wluv=888) EOSINOPHILS RELATIVE PERCENT (BEAKER) (test 1 % iuts=234) BASOPHILS RELATIVE PERCENT (BEAKER) (test 0 % udnh=227) NEUTROPHILS ABSOLUTE COUNT (BEAKER) (test 16.28 K/ L 1.78-5.38 zyon=754) LYMPHOCYTES ABSOLUTE COUNT (BEAKER) (test 1.41 K/ L 1.32-3.57 mfmu=455) MONOCYTES ABSOLUTE COUNT (BEAKER) (test 1.16 K/ L 0.30-0.82 aiey=005) EOSINOPHILS ABSOLUTE COUNT (BEAKER) (test 0.18 K/ L 0.04-0.54 aqvx=216) BASOPHILS ABSOLUTE COUNT (BEAKER) (test 0.06 K/ L 0.01-0.08 pcmk=883) IMMATURE GRANULOCYTES-RELATIVE PERCENT (BEAKER) 2 % 0-1 (test tdza=9088) POCT-GLUCOSE [id number] 21:22:00 Test Item Value Reference Range Comments POC-GLUCOSE METER (BEAKER) 308 mg/dL 70-110 Will Repeat Test/TESTED AT (test uaim=2420) [place] [address] POCT-GLUCOSE [id number] 17:17:00 Test Item Value Reference Range Comments POC-GLUCOSE METER (BEAKER) 274 mg/dL 70-110 TESTED AT [address] (test raia=7326) [place] [address] POCT-GLUCOSE [id number] 11:42:00 Test Item Value Reference Range Comments POC-GLUCOSE METER (BEAKER) 221 mg/dL 70-110 TESTED AT [address] (test qokk=8517) [place] [address] POCT-GLUCOSE [id number] 07:49:00 Test Item Value Reference Range Comments POC-GLUCOSE METER (BEAKER) 211 mg/dL 70-110 TESTED AT [address] (test hbmr=9859) [place] [address] [id number] 07:40:00 Test Item Value Reference Range Comments MAGNESIUM (BEAKER) (test jamv=553) 1.9 mg/dL 1.6-2.6 COMPREHENSIVE METABOLIC [id number] 07:40:00 Test Item Value Reference Range Comments TOTAL PROTEIN (BEAKER) 6.0 gm/dL 6.0-8.3 (test jpkm=076) ALBUMIN (BEAKER) (test 3.4 g/dL 3.5-5.0 psez=9650) ALKALINE PHOSPHATASE 51 U/L 40-150 (BEAKER) (test vydg=194) BILIRUBIN TOTAL (BEAKER) 0.5 mg/dL 0.2-1.2 (test neoz=993) SODIUM (BEAKER) (test 137 meq/L 136-145 llee=093) POTASSIUM (BEAKER) (test 3.5 meq/L 3.5-5.1 hgko=415) CHLORIDE (BEAKER) (test 109 meq/L 98-107 kvaw=949) CO2 (BEAKER) (test 19 meq/L 22-29 jyjo=557) BLOOD UREA NITROGEN 16 mg/dL 7-21 (BEAKER) (test cssk=529) CREATININE (BEAKER) (test 1.70 mg/dL 0.57-1.25 jmim=154) GLUCOSE RANDOM (BEAKER) 184 mg/dL 70-105 (test xstg=506) CALCIUM (BEAKER) (test 8.7 mg/dL 8.4-10.2 trkr=018) AST (SGOT) (BEAKER) (test 9 U/L 5-34 lstv=015) ALT (SGPT) (BEAKER) (test 7 U/L 6-55 rnoi=966) EGFR (BEAKER) (test 39 mL/min/1.73 sq m ESTIMATED GFR IS NOT vkvi=9266) ACCURATE CREATININE CLEARANCE IN PREDICTING GLOMERULAR FILTRATION RATE. ESTIMATED GFR IS NOT APPLICABLE FOR DIALYSIS PATIENTS. [id number] 06:10:00 Test Item Value Reference Range Comments PHOSPHORUS (BEAKER) (test haye=462) 2.3 mg/dL 2.3-4.7 CALCIUM, [id number] 05:39:00 Test Item Value Reference Range Comments CALCIUM IONIZED (BEAKER) (test bkrh=859) 1.09 mmol/L 1.12-1.27 PH, BLOOD (BEAKER) (test ypxr=7128) 7.47 COMPREHENSIVE METABOLIC [id number] 23:05:00 Test Item Value Reference Range Comments TOTAL PROTEIN (BEAKER) 6.4 gm/dL 6.0-8.3 (test ykli=336) ALBUMIN (BEAKER) (test 3.6 g/dL 3.5-5.0 iynh=3712) ALKALINE PHOSPHATASE 60 U/L 40-150 (BEAKER) (test bfyk=384) BILIRUBIN TOTAL (BEAKER) 0.4 mg/dL 0.2-1.2 (test vdwd=515) SODIUM (BEAKER) (test 135 meq/L 136-145 fqcz=982) POTASSIUM (BEAKER) (test 3.5 meq/L 3.5-5.1 gnni=379) CHLORIDE (BEAKER) (test 107 meq/L 98-107 jnqh=726) CO2 (BEAKER) (test 19 meq/L 22-29 pnfw=678) BLOOD UREA NITROGEN 15 mg/dL 7-21 (BEAKER) (test ismt=529) CREATININE (BEAKER) (test 1.31 mg/dL 0.57-1.25 fdwm=317) GLUCOSE RANDOM (BEAKER) 173 mg/dL 70-105 (test wtnc=238) CALCIUM (BEAKER) (test 9.0 mg/dL 8.4-10.2 lxrg=779) AST (SGOT) (BEAKER) (test 9 U/L 5-34 opvv=367) ALT (SGPT) (BEAKER) (test 9 U/L 6-55 gyre=602) EGFR (BEAKER) (test 53 mL/min/1.73 sq m ESTIMATED GFR IS NOT hbes=1173) ACCURATE CREATININE CLEARANCE IN PREDICTING GLOMERULAR FILTRATION RATE. ESTIMATED GFR IS NOT APPLICABLE FOR DIALYSIS PATIENTS. LACTIC ACID, VENOUS, WHOLE [id number] 22:58:00 Test Item Value Reference Range Comments LACTATE BLOOD VENOUS (2) (BEAKER) (test 1.3 mmol/L 0.5-2.2 uhpk=0435) CBC W/PLT COUNT & AUTO [id number] 22:42:00 Test Item Value Reference Range Comments WHITE BLOOD CELL COUNT (BEAKER) (test csfm=688) 14.8 K/ L 3.5-10.5 RED BLOOD CELL COUNT (BEAKER) (test zhez=196) 3.94 M/ L 4.63-6.08 HEMOGLOBIN (BEAKER) (test ivzw=926) 10.1 GM/DL 13.7-17.5 HEMATOCRIT (BEAKER) (test dgev=218) 32.5 % 40.1-51.0 MEAN CORPUSCULAR VOLUME (BEAKER) (test ijvv=551) 82.5 fL 79.0-92.2 MEAN CORPUSCULAR HEMOGLOBIN (BEAKER) (test 25.6 pg 25.7-32.2 yunp=886) MEAN CORPUSCULAR HEMOGLOBIN CONC (BEAKER) (test 31.1 GM/DL 32.3-36.5 tfcs=520) RED CELL DISTRIBUTION WIDTH (BEAKER) (test 21.4 % 11.6-14.4 fmdo=566) PLATELET COUNT (BEAKER) (test bplo=305) 266 K/CU MM 150-450 MEAN PLATELET VOLUME (BEAKER) (test okkk=139) 9.6 fL 9.4-12.4 NUCLEATED RED BLOOD CELLS (BEAKER) (test 0 /100 WBC 0-0 kdyo=123) NEUTROPHILS RELATIVE PERCENT (BEAKER) (test 90 % ynor=939) LYMPHOCYTES RELATIVE PERCENT (BEAKER) (test 5 % uaxt=079) MONOCYTES RELATIVE PERCENT (BEAKER) (test 4 % udci=829) EOSINOPHILS RELATIVE PERCENT (BEAKER) (test 0 % dmil=548) BASOPHILS RELATIVE PERCENT (BEAKER) (test 0 % vsxl=211) NEUTROPHILS ABSOLUTE COUNT (BEAKER) (test 13.29 K/ L 1.78-5.38 nfvj=083) LYMPHOCYTES ABSOLUTE COUNT (BEAKER) (test 0.79 K/ L 1.32-3.57 lkjk=587) MONOCYTES ABSOLUTE COUNT (BEAKER) (test 0.63 K/ L 0.30-0.82 sawr=466) EOSINOPHILS ABSOLUTE COUNT (BEAKER) (test 0.06 K/ L 0.04-0.54 zwyl=178) BASOPHILS ABSOLUTE COUNT (BEAKER) (test 0.02 K/ L 0.01-0.08 soxx=062) IMMATURE GRANULOCYTES-RELATIVE PERCENT (BEAKER) 0 % 0-1 (test jtnz=2775) RAD, CHEST, 1 VIEW, NON [id number] 22:14:00Reason for exam:-> wheezingShould this be performed [...] Verified Date/ Time: 11/21/2018 22:14:36 Reading Location: [address] Reading Room 10: 14PMPOCT-GLUCOSE [id number] 21:43:00 Test Item Value Reference Range Comments POC-GLUCOSE METER (BEAKER) 195 mg/dL 70-110 TESTED AT [address] (test mkyg=9981) [place] [id number] POCT-GLUCOSE [id number] 17:48:00 Test Item Value Reference Range Comments POC-GLUCOSE METER (BEAKER) 186 mg/dL 70-110 TESTED AT [address] (test fwxi=4517) [place] [id number] POCT-GLUCOSE [id number] 11:43:00 Test Item Value Reference Range Comments POC-GLUCOSE METER (BEAKER) 321 mg/dL 70-110 TESTED AT [address] (test gkeg=3263) [place] [id number] POCT-GLUCOSE [id number] 07:57:00 Test Item Value Reference Range Comments POC-GLUCOSE METER (BEAKER) 185 mg/dL 70-110 TESTED AT [address] (test rlrt=5669) [place] [address] [id number] 07:46:00 Test Item Value Reference Range Comments PHOSPHORUS (BEAKER) (test wgut=032) 2.2 mg/dL 2.3-4.7 [id number] 07:46:00 Test Item Value Reference Range Comments MAGNESIUM (BEAKER) (test pwwa=142) 1.7 mg/dL 1.6-2.6 BASIC METABOLIC [id number] 07:46:00 Test Item Value Reference Range Comments SODIUM (BEAKER) (test 139 meq/L 136-145 hxef=869) POTASSIUM (BEAKER) (test 3.3 meq/L 3.5-5.1 ugxq=986) CHLORIDE (BEAKER) (test 108 meq/L 98-107 cgoi=570) CO2 (BEAKER) (test 20 meq/L 22-29 wrac=766) BLOOD UREA NITROGEN 15 mg/dL 7-21 (BEAKER) (test udke=643) CREATININE (BEAKER) (test 1.26 mg/dL 0.57-1.25 jvau=231) GLUCOSE RANDOM (BEAKER) 117 mg/dL 70-105 (test cbrp=678) CALCIUM (BEAKER) (test 8.9 mg/dL 8.4-10.2 zwhe=720) EGFR (BEAKER) (test 56 mL/min/1.73 sq m ESTIMATED GFR IS NOT bkuu=4194) ACCURATE CREATININE CLEARANCE IN PREDICTING GLOMERULAR FILTRATION RATE. ESTIMATED GFR IS NOT APPLICABLE FOR DIALYSIS PATIENTS. CBC W/PLT COUNT & AUTO [id number] 07:14:00 Test Item Value Reference Range Comments WHITE BLOOD CELL COUNT (BEAKER) (test viub=938) 8.6 K/ L 3.5-10.5 RED BLOOD CELL COUNT (BEAKER) (test ayzl=928) 3.49 M/ L 4.63-6.08 HEMOGLOBIN (BEAKER) (test jbrd=611) 8.9 GM/DL 13.7-17.5 HEMATOCRIT (BEAKER) (test waby=569) 29.5 % 40.1-51.0 MEAN CORPUSCULAR VOLUME (BEAKER) (test dfzl=171) 84.5 fL 79.0-92.2 MEAN CORPUSCULAR HEMOGLOBIN (BEAKER) (test 25.5 pg 25.7-32.2 ljrj=484) MEAN CORPUSCULAR HEMOGLOBIN CONC (BEAKER) (test 30.2 GM/DL 32.3-36.5 bmzt=762) RED CELL DISTRIBUTION WIDTH (BEAKER) (test 21.2 % 11.6-14.4 qjni=462) PLATELET COUNT (BEAKER) (test exuc=500) 269 K/CU MM 150-450 MEAN PLATELET VOLUME (BEAKER) (test zxdi=075) 11.3 fL 9.4-12.4 NUCLEATED RED BLOOD CELLS (BEAKER) (test 0 /100 WBC 0-0 colc=842) NEUTROPHILS RELATIVE PERCENT (BEAKER) (test 63 % nqqe=251) LYMPHOCYTES RELATIVE PERCENT (BEAKER) (test 27 % mtzz=266) MONOCYTES RELATIVE PERCENT (BEAKER) (test 6 % ymwo=327) EOSINOPHILS RELATIVE PERCENT (BEAKER) (test 4 % auic=421) BASOPHILS RELATIVE PERCENT (BEAKER) (test 1 % ccmm=324) NEUTROPHILS ABSOLUTE COUNT (BEAKER) (test 5.40 K/ L 1.78-5.38 elnc=352) LYMPHOCYTES ABSOLUTE COUNT (BEAKER) (test 2.30 K/ L 1.32-3.57 ekri=613) MONOCYTES ABSOLUTE COUNT (BEAKER) (test 0.52 K/ L 0.30-0.82 hobf=739) EOSINOPHILS ABSOLUTE COUNT (BEAKER) (test 0.33 K/ L 0.04-0.54 oesh=447) BASOPHILS ABSOLUTE COUNT (BEAKER) (test 0.06 K/ L 0.01-0.08 aljw=690) IMMATURE GRANULOCYTES-RELATIVE PERCENT (BEAKER) 0 % 0-1 (test dwqd=1820) CALCIUM, [id number] 05:37:00 Test Item Value Reference Range Comments CALCIUM IONIZED (BEAKER) (test sgbm=030) 1.09 mmol/L 1.12-1.27 PH, BLOOD (BEAKER) (test hhzu=6813) 7.45 POCT-GLUCOSE [id number] 20:52:00 Test Item Value Reference Range Comments POC-GLUCOSE METER (BEAKER) 134 mg/dL 70-110 TESTED AT [address] (test jibi=5391) [facility] [address] CT, ABDOMEN, RENAL MASS, CYST [id number] 15:11:00Reason for exam:-> right renal massFINAL REPORT [...] MDReport Verified Date/Time: 11/20/2018 15:11:56 Reading Location: [facility] C013Y CT Body Reading Room 03: 11 PMPOCT-GLUCOSE [id number] 12:13:00 Test Item Value Reference Range Comments POC-GLUCOSE METER (BEAKER) 221 mg/dL 70-110 TESTED AT [address] (test nvwv=6840) [facility] [address] POCT-GLUCOSE [id number] 12:10:00 Test Item Value Reference Range Comments POC-GLUCOSE METER (BEAKER) 148 mg/dL 70-110 TESTED AT [address] (test rtss=9930) [facility] [address] [id number] 05:52:00 Test Item Value Reference Range Comments MAGNESIUM (BEAKER) (test 2.0 mg/dL 1.6-2.6 Specimen slightly hemolyzed hctd=118) [id number] 05:52:00 Test Item Value Reference Range Comments PHOSPHORUS (BEAKER) (test 2.2 mg/dL 2.3-4.7 Specimen slightly hemolyzed vwol=316) BASIC METABOLIC [id number] 05:52:00 Test Item Value Reference Range Comments SODIUM (BEAKER) (test 141 meq/L 136-145 fpba=910) POTASSIUM (BEAKER) (test 3.7 meq/L 3.5-5.1 Specimen slightly xjvn=363) hemolyzed CHLORIDE (BEAKER) (test 111 meq/L 98-107 cluo=213) CO2 (BEAKER) (test 19 meq/L 22-29 nalr=510) BLOOD UREA NITROGEN 18 mg/dL 7-21 (BEAKER) (test yxnh=413) CREATININE (BEAKER) (test 1.33 mg/dL 0.57-1.25 Specimen slightly itfw=341) hemolyzed GLUCOSE RANDOM (BEAKER) 133 mg/dL 70-105 (test ztym=684) CALCIUM (BEAKER) (test 9.1 mg/dL 8.4-10.2 lrwb=551) EGFR (BEAKER) (test 52 mL/min/1.73 sq m ESTIMATED GFR IS NOT onzv=5784) ACCURATE CREATININE CLEARANCE IN PREDICTING GLOMERULAR FILTRATION RATE. ESTIMATED GFR IS NOT APPLICABLE FOR DIALYSIS PATIENTS. CALCIUM, [id number] 05:46:00 Test Item Value Reference Range Comments CALCIUM IONIZED (BEAKER) (test mjjq=975) 1.07 mmol/L 1.12-1.27 PH, BLOOD (BEAKER) (test ssca=3330) 7.45 CBC W/PLT COUNT & AUTO [id number] 05:45:00 Test Item Value Reference Range Comments WHITE BLOOD CELL COUNT (BEAKER) (test naiy=563) 9.4 K/ L 3.5-10.5 RED BLOOD CELL COUNT (BEAKER) (test fkdk=760) 3.59 M/ L 4.63-6.08 HEMOGLOBIN (BEAKER) (test wzvm=116) 8.9 GM/DL 13.7-17.5 HEMATOCRIT (BEAKER) (test lfht=962) 30.6 % 40.1-51.0 MEAN CORPUSCULAR VOLUME (BEAKER) (test rwcz=158) 85.2 fL 79.0-92.2 MEAN CORPUSCULAR HEMOGLOBIN (BEAKER) (test 24.8 pg 25.7-32.2 ehcd=615) MEAN CORPUSCULAR HEMOGLOBIN CONC (BEAKER) (test 29.1 GM/DL 32.3-36.5 huxt=522) RED CELL DISTRIBUTION WIDTH (BEAKER) (test 20.9 % 11.6-14.4 jcvl=519) PLATELET COUNT (BEAKER) (test cgdp=710) 300 K/CU MM 150-450 MEAN PLATELET VOLUME (BEAKER) (test dkfa=998) 9.9 fL 9.4-12.4 NUCLEATED RED BLOOD CELLS (BEAKER) (test 0 /100 WBC 0-0 gyak=600) NEUTROPHILS RELATIVE PERCENT (BEAKER) (test 68 % mcbl=340) LYMPHOCYTES RELATIVE PERCENT (BEAKER) (test 23 % rmly=482) MONOCYTES RELATIVE PERCENT (BEAKER) (test 5 % kyin=144) EOSINOPHILS RELATIVE PERCENT (BEAKER) (test 3 % frqp=555) BASOPHILS RELATIVE PERCENT (BEAKER) (test 1 % bopi=878) NEUTROPHILS ABSOLUTE COUNT (BEAKER) (test 6.38 K/ L 1.78-5.38 wtya=957) LYMPHOCYTES ABSOLUTE COUNT (BEAKER) (test 2.18 K/ L 1.32-3.57 rukg=610) MONOCYTES ABSOLUTE COUNT (BEAKER) (test 0.50 K/ L 0.30-0.82 whqz=681) EOSINOPHILS ABSOLUTE COUNT (BEAKER) (test 0.28 K/ L 0.04-0.54 uvcv=287) BASOPHILS ABSOLUTE COUNT (BEAKER) (test 0.05 K/ L 0.01-0.08 znvx=472) IMMATURE GRANULOCYTES-RELATIVE PERCENT (BEAKER) 0 % 0-1 (test xzmo=8981) RAD, ABDOMEN/KUB, 1 VIEW [id number] 00:47:00Reason for exam:->placement of dobhoff tube, thanksFINAL REPORT EXAMINATION: SUPINE ABDOMEN CLINICAL INDICATION: FEEDING TUBE PLACEMENT IMPRESSION: Tip of the feeding tube projects over the left upper abdomen in the region of the stomach. S[facility] Verified Date/Time: 11/20/2018 00:47:19 Reading Location: [address] Reading Room POCT-GLUCOSE [id number] 20:52:00 Test Item Value Reference Range Comments POC-GLUCOSE METER (BEAKER) 150 mg/dL 70-110 TESTED AT [address] (test hsix=3593) [facility] [address] POCT-GLUCOSE [id number] 19:47:00 Test Item Value Reference Range Comments POC-GLUCOSE METER (BEAKER) 179 mg/dL 70-110 TESTED AT [address] (test cmyz=0959) [facility] [address] RAD, CHEST, 1 VIEW, NON [id number] 18:19:00After EGDReason for exam:->NG tube placementShould this [...] Verified Date/ Time: 11/19/2018 18:19:18 Reading Location: [facility] Radiology Reading Room POCT-GLUCOSE [id number] 16:55:00 Test Item Value Reference Range Comments POC-GLUCOSE METER (BEAKER) 172 mg/dL 70-110 TESTED AT [address] (test rynv=5784) [place] [id number] POCT-GLUCOSE [id number] 11:56:00 Test Item Value Reference Range Comments POC-GLUCOSE METER (BEAKER) 158 mg/dL 70-110 TESTED AT [address] (test lins=4570) [place] [id number] POCT-GLUCOSE [id number] 07:17:00 Test Item Value Reference Range Comments POC-GLUCOSE METER (BEAKER) 142 mg/dL 70-110 TESTED AT [address] (test ilko=1060) [place] [address] [id number] 06:49:00 Test Item Value Reference Range Comments PHOSPHORUS (BEAKER) (test bdss=407) 2.4 mg/dL 2.3-4.7 [id number] 06:49:00 Test Item Value Reference Range Comments MAGNESIUM (BEAKER) (test vbgf=113) 1.7 mg/dL 1.6-2.6 BASIC METABOLIC [id number] 06:49:00 Test Item Value Reference Range Comments SODIUM (BEAKER) (test 144 meq/L 136-145 zunl=520) POTASSIUM (BEAKER) (test 3.4 meq/L 3.5-5.1 pttb=718) CHLORIDE (BEAKER) (test 111 meq/L 98-107 jvya=763) CO2 (BEAKER) (test 24 meq/L 22-29 fwbm=733) BLOOD UREA NITROGEN 19 mg/dL 7-21 (BEAKER) (test jfvh=485) CREATININE (BEAKER) (test 1.35 mg/dL 0.57-1.25 hjyo=680) GLUCOSE RANDOM (BEAKER) 139 mg/dL 70-105 (test fzxc=511) CALCIUM (BEAKER) (test 9.4 mg/dL 8.4-10.2 zamv=954) EGFR (BEAKER) (test 52 mL/min/1.73 sq m ESTIMATED GFR IS NOT vhll=9624) ACCURATE CREATININE CLEARANCE IN PREDICTING GLOMERULAR FILTRATION RATE. ESTIMATED GFR IS NOT APPLICABLE FOR DIALYSIS PATIENTS. CBC W/PLT COUNT & AUTO [id number] 06:48:00 Test Item Value Reference Range Comments WHITE BLOOD CELL COUNT (BEAKER) (test udet=039) 9.0 K/ L 3.5-10.5 RED BLOOD CELL COUNT (BEAKER) (test mwza=729) 3.60 M/ L 4.63-6.08 HEMOGLOBIN (BEAKER) (test gtzo=174) 9.0 GM/DL 13.7-17.5 HEMATOCRIT (BEAKER) (test wqha=806) 29.9 % 40.1-51.0 MEAN CORPUSCULAR VOLUME (BEAKER) (test snze=640) 83.1 fL 79.0-92.2 MEAN CORPUSCULAR HEMOGLOBIN (BEAKER) (test 25.0 pg 25.7-32.2 hgod=158) MEAN CORPUSCULAR HEMOGLOBIN CONC (BEAKER) (test 30.1 GM/DL 32.3-36.5 omzo=663) RED CELL DISTRIBUTION WIDTH (BEAKER) (test 20.1 % 11.6-14.4 scla=295) PLATELET COUNT (BEAKER) (test msdn=178) 342 K/CU MM 150-450 MEAN PLATELET VOLUME (BEAKER) (test yvrs=902) 9.6 fL 9.4-12.4 NUCLEATED RED BLOOD CELLS (BEAKER) (test 0 /100 WBC 0-0 ycua=531) NEUTROPHILS RELATIVE PERCENT (BEAKER) (test 69 % udvy=502) LYMPHOCYTES RELATIVE PERCENT (BEAKER) (test 22 % pqib=156) MONOCYTES RELATIVE PERCENT (BEAKER) (test 6 % ymsn=428) EOSINOPHILS RELATIVE PERCENT (BEAKER) (test 2 % czwy=816) BASOPHILS RELATIVE PERCENT (BEAKER) (test 1 % hrzs=704) NEUTROPHILS ABSOLUTE COUNT (BEAKER) (test 6.19 K/ L 1.78-5.38 mevj=432) LYMPHOCYTES ABSOLUTE COUNT (BEAKER) (test 1.99 K/ L 1.32-3.57 ouhp=564) MONOCYTES ABSOLUTE COUNT (BEAKER) (test 0.52 K/ L 0.30-0.82 nntj=801) EOSINOPHILS ABSOLUTE COUNT (BEAKER) (test 0.18 K/ L 0.04-0.54 mwac=404) BASOPHILS ABSOLUTE COUNT (BEAKER) (test 0.06 K/ L 0.01-0.08 cahy=477) IMMATURE GRANULOCYTES-RELATIVE PERCENT (BEAKER) 0 % 0-1 (test tysh=5680) POCT-GLUCOSE [id number] 21:23:00 Test Item Value Reference Range Comments POC-GLUCOSE METER (BEAKER) 172 mg/dL 70-110 TESTED AT [address] (test ivlk=3475) [place] [id number] POCT-GLUCOSE [id number] 11:34:00 Test Item Value Reference Range Comments POC-GLUCOSE METER (BEAKER) 187 mg/dL 70-110 TESTED AT [address] (test dfoq=2331) [place] [id number] POCT-GLUCOSE [id number] 07:51:00 Test Item Value Reference Range Comments POC-GLUCOSE METER (BEAKER) 192 mg/dL 70-110 TESTED AT [address] (test gnpc=3414) [place] [id number] CALCIUM, [id number] 06:19:00 Test Item Value Reference Range Comments CALCIUM IONIZED (BEAKER) (test bnxd=873) 1.13 mmol/L 1.12-1.27 PH, BLOOD (BEAKER) (test jdyq=2316) 7.43 [id number] 06:03:00 Test Item Value Reference Range Comments PHOSPHORUS (BEAKER) (test racq=073) 2.5 mg/dL 2.3-4.7 [id number] 06:03:00 Test Item Value Reference Range Comments MAGNESIUM (BEAKER) (test ofwl=292) 1.5 mg/dL 1.6-2.6 BASIC METABOLIC [id number] 06:03:00 Test Item Value Reference Range Comments SODIUM (BEAKER) (test 140 meq/L 136-145 raci=321) POTASSIUM (BEAKER) (test 3.6 meq/L 3.5-5.1 fkvy=024) CHLORIDE (BEAKER) (test 108 meq/L 98-107 rrge=990) CO2 (BEAKER) (test 22 meq/L 22-29 onsj=906) BLOOD UREA NITROGEN 21 mg/dL 7-21 (BEAKER) (test cctg=479) CREATININE (BEAKER) (test 1.40 mg/dL 0.57-1.25 uhtb=553) GLUCOSE RANDOM (BEAKER) 158 mg/dL 70-105 (test pgrz=213) CALCIUM (BEAKER) (test 9.1 mg/dL 8.4-10.2 lxsk=820) EGFR (BEAKER) (test 49 mL/min/1.73 sq m ESTIMATED GFR IS NOT goxq=5866) ACCURATE CREATININE CLEARANCE IN PREDICTING GLOMERULAR FILTRATION RATE. ESTIMATED GFR IS NOT APPLICABLE FOR DIALYSIS PATIENTS. CBC W/PLT COUNT & AUTO [id number] 05:41:00 Test Item Value Reference Range Comments WHITE BLOOD CELL COUNT (BEAKER) (test sobb=836) 10.1 K/ L 3.5-10.5 RED BLOOD CELL COUNT (BEAKER) (test nutx=556) 3.56 M/ L 4.63-6.08 HEMOGLOBIN (BEAKER) (test fplm=579) 8.8 GM/DL 13.7-17.5 HEMATOCRIT (BEAKER) (test pqlo=722) 29.6 % 40.1-51.0 MEAN CORPUSCULAR VOLUME (BEAKER) (test kwtf=490) 83.1 fL 79.0-92.2 MEAN CORPUSCULAR HEMOGLOBIN (BEAKER) (test 24.7 pg 25.7-32.2 jjui=955) MEAN CORPUSCULAR HEMOGLOBIN CONC (BEAKER) (test 29.7 GM/DL 32.3-36.5 cwqh=219) RED CELL DISTRIBUTION WIDTH (BEAKER) (test 19.7 % 11.6-14.4 pzys=977) PLATELET COUNT (BEAKER) (test fjyz=598) 337 K/CU MM 150-450 MEAN PLATELET VOLUME (BEAKER) (test lsaa=909) 10.3 fL 9.4-12.4 NUCLEATED RED BLOOD CELLS (BEAKER) (test 0 /100 WBC 0-0 ivwl=394) NEUTROPHILS RELATIVE PERCENT (BEAKER) (test 69 % mlsp=646) LYMPHOCYTES RELATIVE PERCENT (BEAKER) (test 21 % hatd=466) MONOCYTES RELATIVE PERCENT (BEAKER) (test 6 % hyco=644) EOSINOPHILS RELATIVE PERCENT (BEAKER) (test 2 % cxzo=521) BASOPHILS RELATIVE PERCENT (BEAKER) (test 1 % oebc=359) NEUTROPHILS ABSOLUTE COUNT (BEAKER) (test 6.98 K/ L 1.78-5.38 tozj=762) LYMPHOCYTES ABSOLUTE COUNT (BEAKER) (test 2.13 K/ L 1.32-3.57 egrs=314) MONOCYTES ABSOLUTE COUNT (BEAKER) (test 0.65 K/ L 0.30-0.82 ikxv=365) EOSINOPHILS ABSOLUTE COUNT (BEAKER) (test 0.20 K/ L 0.04-0.54 sldc=844) BASOPHILS ABSOLUTE COUNT (BEAKER) (test 0.05 K/ L 0.01-0.08 wbkw=730) IMMATURE GRANULOCYTES-RELATIVE PERCENT (BEAKER) 1 % 0-1 (test hsey=1424) POCT-GLUCOSE [id number] 21:32:00 Test Item Value Reference Range Comments POC-GLUCOSE METER (BEAKER) 187 mg/dL 70-110 TESTED AT [address] (test iuhp=6730) [place] [address] POCT-GLUCOSE [id number] 17:16:00 Test Item Value Reference Range Comments POC-GLUCOSE METER (BEAKER) 174 mg/dL 70-110 TESTED AT [address] (test xnwa=2368) [place] [address] POCT-GLUCOSE [id number] 11:52:00 Test Item Value Reference Range Comments POC-GLUCOSE METER (BEAKER) 172 mg/dL 70-110 TESTED AT [address] (test letx=1967) [place] [address] BASIC METABOLIC [id number] 09:39:00 Test Item Value Reference Range Comments SODIUM (BEAKER) (test 140 meq/L 136-145 wnwi=406) POTASSIUM (BEAKER) (test 3.9 meq/L 3.5-5.1 ghud=669) CHLORIDE (BEAKER) (test 109 meq/L 98-107 hcql=848) CO2 (BEAKER) (test 20 meq/L 22-29 opxh=273) BLOOD UREA NITROGEN 20 mg/dL 7-21 (BEAKER) (test cnni=748) CREATININE (BEAKER) (test 1.47 mg/dL 0.57-1.25 ghwp=629) GLUCOSE RANDOM (BEAKER) 138 mg/dL 70-105 (test fmqw=308) CALCIUM (BEAKER) (test 9.3 mg/dL 8.4-10.2 lism=092) EGFR (BEAKER) (test 47 mL/min/1.73 sq m ESTIMATED GFR IS NOT fdgp=7772) ACCURATE CREATININE CLEARANCE IN PREDICTING GLOMERULAR FILTRATION RATE. ESTIMATED GFR IS NOT APPLICABLE FOR DIALYSIS PATIENTS. CBC (HEMOGRAM ONLY)2018-11-17 09:22:00 Test Item Value Reference Range Comments WHITE BLOOD CELL COUNT (BEAKER) (test repk=261) 9.9 K/ L 3.5-10.5 RED BLOOD CELL COUNT (BEAKER) (test pyst=430) 3.62 M/ L 4.63-6.08 HEMOGLOBIN (BEAKER) (test vwwt=936) 8.9 GM/DL 13.7-17.5 HEMATOCRIT (BEAKER) (test myor=888) 29.9 % 40.1-51.0 MEAN CORPUSCULAR VOLUME (BEAKER) (test xcye=221) 82.6 fL 79.0-92.2 MEAN CORPUSCULAR HEMOGLOBIN (BEAKER) (test 24.6 pg 25.7-32.2 avvy=382) MEAN CORPUSCULAR HEMOGLOBIN CONC (BEAKER) (test 29.8 GM/DL 32.3-36.5 dkxs=195) RED CELL DISTRIBUTION WIDTH (BEAKER) (test 19.4 % 11.6-14.4 gjdq=388) PLATELET COUNT (BEAKER) (test zizw=227) 364 K/CU MM 150-450 MEAN PLATELET VOLUME (BEAKER) (test ujub=307) 9.4 fL 9.4-12.4 NUCLEATED RED BLOOD CELLS (BEAKER) (test 0 /100 WBC 0-0 diia=693) POCT-GLUCOSE [id number] 07:54:00 Test Item Value Reference Range Comments POC-GLUCOSE METER (BEAKER) 140 mg/dL 70-110 TESTED AT [address] (test fuuh=0996) [facility] [address] POCT-GLUCOSE [id number] 20:01:00 Test Item Value Reference Range Comments POC-GLUCOSE METER (BEAKER) 176 mg/dL 70-110 TESTED AT [address] (test hksb=8909) [facility] [address] POCT-GLUCOSE [id number] 17:51:00 Test Item Value Reference Range Comments POC-GLUCOSE METER (BEAKER) 168 mg/dL 70-110 TESTED AT [address] (test bmsz=6533) [facility] [address] POCT-GLUCOSE [id number] 11:41:00 Test Item Value Reference Range Comments POC-GLUCOSE METER (BEAKER) 164 mg/dL 70-110 TESTED AT [address] (test yjxy=2427) [facility] [address] POCT-GLUCOSE [id number] 08:13:00 Test Item Value Reference Range Comments POC-GLUCOSE METER (BEAKER) 161 mg/dL 70-110 TESTED AT [address] (test syxm=5099) [facility] [address] COMPREHENSIVE METABOLIC [id number] 05:49:00 Test Item Value Reference Range Comments TOTAL PROTEIN (BEAKER) 7.0 gm/dL 6.0-8.3 (test wwmw=835) ALBUMIN (BEAKER) (test 3.8 g/dL 3.5-5.0 ergt=6803) ALKALINE PHOSPHATASE 70 U/L 40-150 (BEAKER) (test evua=419) BILIRUBIN TOTAL (BEAKER) 0.4 mg/dL 0.2-1.2 (test zpds=773) SODIUM (BEAKER) (test 139 meq/L 136-145 vwpr=065) POTASSIUM (BEAKER) (test 3.8 meq/L 3.5-5.1 dfbt=743) CHLORIDE (BEAKER) (test 107 meq/L 98-107 rexy=912) CO2 (BEAKER) (test 22 meq/L 22-29 skry=801) BLOOD UREA NITROGEN 19 mg/dL 7-21 (BEAKER) (test nstt=744) CREATININE (BEAKER) (test 1.66 mg/dL 0.57-1.25 mspu=716) GLUCOSE RANDOM (BEAKER) 137 mg/dL 70-105 (test pebc=154) CALCIUM (BEAKER) (test 9.6 mg/dL 8.4-10.2 zvbr=424) AST (SGOT) (BEAKER) (test 9 U/L 5-34 zwas=015) ALT (SGPT) (BEAKER) (test 10 U/L 6-55 tmku=573) EGFR (BEAKER) (test 41 mL/min/1.73 sq m ESTIMATED GFR IS NOT fppq=6931) ACCURATE CREATININE CLEARANCE IN PREDICTING GLOMERULAR FILTRATION RATE. ESTIMATED GFR IS NOT APPLICABLE FOR DIALYSIS PATIENTS. CBC (HEMOGRAM ONLY)2018-11-16 05:28:00 Test Item Value Reference Range Comments WHITE BLOOD CELL COUNT (BEAKER) (test yusr=202) 11.1 K/ L 3.5-10.5 RED BLOOD CELL COUNT (BEAKER) (test xwjd=497) 3.57 M/ L 4.63-6.08 HEMOGLOBIN (BEAKER) (test isrw=537) 8.8 GM/DL 13.7-17.5 HEMATOCRIT (BEAKER) (test bhum=622) 29.4 % 40.1-51.0 MEAN CORPUSCULAR VOLUME (BEAKER) (test qfoh=761) 82.4 fL 79.0-92.2 MEAN CORPUSCULAR HEMOGLOBIN (BEAKER) (test 24.6 pg 25.7-32.2 cgme=058) MEAN CORPUSCULAR HEMOGLOBIN CONC (BEAKER) (test 29.9 GM/DL 32.3-36.5 wnpe=531) RED CELL DISTRIBUTION WIDTH (BEAKER) (test 19.0 % 11.6-14.4 nurt=707) PLATELET COUNT (BEAKER) (test sswc=259) 381 K/CU MM 150-450 MEAN PLATELET VOLUME (BEAKER) (test narv=849) 9.7 fL 9.4-12.4 NUCLEATED RED BLOOD CELLS (BEAKER) (test 0 /100 WBC 0-0 bipt=288) POCT-GLUCOSE [id number] 21:10:00 Test Item Value Reference Range Comments POC-GLUCOSE METER (BEAKER) 133 mg/dL 70-110 TESTED AT [address] (test pams=0147) [facility] [address] POCT-GLUCOSE [id number] 18:30:00 Test Item Value Reference Range Comments POC-GLUCOSE METER (BEAKER) 158 mg/dL 70-110 TESTED AT [address] (test hvqf=0210) [facility] [address] POCT-GLUCOSE [id number] 12:09:00 Test Item Value Reference Range Comments POC-GLUCOSE METER (BEAKER) 172 mg/dL 70-110 TESTED AT [address] (test hyie=5503) [facility] [address] POCT-GLUCOSE [id number] 07:55:00 Test Item Value Reference Range Comments POC-GLUCOSE METER (BEAKER) 178 mg/dL 70-110 TESTED AT [address] (test gjyo=9939) [facility] [address] BASIC METABOLIC [id number] 07:20:00 Test Item Value Reference Range Comments SODIUM (BEAKER) (test 137 meq/L 136-145 fftl=672) POTASSIUM (BEAKER) (test 3.8 meq/L 3.5-5.1 akmq=489) CHLORIDE (BEAKER) (test 106 meq/L 98-107 rlll=026) CO2 (BEAKER) (test 22 meq/L 22-29 ejtd=835) BLOOD UREA NITROGEN 21 mg/dL 7-21 (BEAKER) (test kljj=956) CREATININE (BEAKER) (test 1.56 mg/dL 0.57-1.25 qszu=387) GLUCOSE RANDOM (BEAKER) 142 mg/dL 70-105 (test thwj=521) CALCIUM (BEAKER) (test 9.3 mg/dL 8.4-10.2 snjp=855) EGFR (BEAKER) (test 44 mL/min/1.73 sq m ESTIMATED GFR IS NOT nvkn=3427) ACCURATE CREATININE CLEARANCE IN PREDICTING GLOMERULAR FILTRATION RATE. ESTIMATED GFR IS NOT APPLICABLE FOR DIALYSIS PATIENTS. B-TYPE NATRIURETIC FACTOR (BNP)2018-11-15 06:49:00 Test Item Value Reference Range Comments B-TYPE NATRIURETIC PEPTIDE (BEAKER) (test 172 pg/mL 0-100 rxud=630) POCT-GLUCOSE [id number] 06:27:00 Test Item Value Reference Range Comments POC-GLUCOSE METER (BEAKER) 151 mg/dL 70-[address] [facility] [address] [facility] (test zdis=1102) [facility] [address] CBC (HEMOGRAM ONLY)2018-11-15 06:21:00 Test Item Value Reference Range Comments WHITE BLOOD CELL COUNT (BEAKER) (test rpzx=860) 10.1 K/ L 3.5-10.5 RED BLOOD CELL COUNT (BEAKER) (test vqhm=356) 3.42 M/ L 4.63-6.08 HEMOGLOBIN (BEAKER) (test sqqy=634) 8.4 GM/DL 13.7-17.5 HEMATOCRIT (BEAKER) (test wwrd=897) 27.6 % 40.1-51.0 MEAN CORPUSCULAR VOLUME (BEAKER) (test wxut=277) 80.7 fL 79.0-92.2 MEAN CORPUSCULAR HEMOGLOBIN (BEAKER) (test 24.6 pg 25.7-32.2 tasn=828) MEAN CORPUSCULAR HEMOGLOBIN CONC (BEAKER) (test 30.4 GM/DL 32.3-36.5 stva=242) RED CELL DISTRIBUTION WIDTH (BEAKER) (test 18.5 % 11.6-14.4 xxlg=557) PLATELET COUNT (BEAKER) (test rgos=530) 383 K/CU MM 150-450 MEAN PLATELET VOLUME (BEAKER) (test lygj=301) 10.1 fL 9.4-12.4 NUCLEATED RED BLOOD CELLS (BEAKER) (test 0 /100 WBC 0-0 ckjj=117) POCT-GLUCOSE [id number] 21:06:00 Test Item Value Reference Range Comments POC-GLUCOSE METER (BEAKER) 157 mg/dL 70-110 TESTED AT [address] (test ahnu=0626) [facility] [address] RAD, CHEST, 1 VIEW, NON [id number] 19:50:00Reason for exam:->sob/shest painShould this be performed [...] Verified Date/Time : 11/14/2018 19:50:32 Reading Location: [facility] [address] [facility] Reading Room RAD , ABDOMEN/KUB, 1 VIEW [id number] 19:02:00Reason for exam:->Check NGT placementPt is hard [...] Rivera Verified Date/Time: 11/14/2018 19:02:06 Reading Location: [address] Reading Room POCT-GLUCOSE [id number] 17:34:00 Test Item Value Reference Range Comments POC-GLUCOSE METER (BEAKER) 136 mg/dL 70-[address] [facility] [address] [facility] (test dfyo=6527) [facility] [address] TROPONIN [id number] 16:18:00 Test Item Value Reference Range Comments TROPONIN I (BEAKER) (test qnqe=379) < ng/mL 0.00-0.03 Troponin I (TnI) levels [...] Range Comments CREATINE KINASE TOTAL (BEAKER) (test pewq=690) 68 U/L 29-200 RAD, ABDOMEN/KUB, 1 VIEW [id number] 15:36:00Reason for exam:->Abdominal distension; VomitingShould this be [...] Ortiz Verified Date/Time: 11/14/2018 15:36:02 Reading Location: [facility] [address]W Consult Reading Room POCT-GLUCOSE [id number] 12:10: 00 Test Item Value Reference Range Comments POC-GLUCOSE METER (BEAKER) 195 mg/dL 70-110 TESTED AT [address] (test bixb=3886) [facility] [address] POCT-GLUCOSE [id number] 08:00:00 Test Item Value Reference Range Comments POC-GLUCOSE METER (BEAKER) 195 mg/dL 70-110 TESTED AT [address] (test wxbl=1244) [facility] [address] COMPREHENSIVE METABOLIC [id number] 06:10:00 Test Item Value Reference Range Comments TOTAL PROTEIN (BEAKER) 7.1 gm/dL 6.0-8.3 (test mvrj=246) ALBUMIN (BEAKER) (test 3.8 g/dL 3.5-5.0 ndgf=9772) ALKALINE PHOSPHATASE 78 U/L 40-150 (BEAKER) (test gxkc=238) BILIRUBIN TOTAL (BEAKER) 0.3 mg/dL 0.2-1.2 (test dufx=868) SODIUM (BEAKER) (test 136 meq/L 136-145 zvii=807) POTASSIUM (BEAKER) (test 4.0 meq/L 3.5-5.1 beof=324) CHLORIDE (BEAKER) (test 107 meq/L 98-107 qpvo=880) CO2 (BEAKER) (test 19 meq/L 22-29 ferb=494) BLOOD UREA NITROGEN 25 mg/dL 7-21 (BEAKER) (test ahsp=162) CREATININE (BEAKER) (test 1.67 mg/dL 0.57-1.25 kjlp=176) GLUCOSE RANDOM (BEAKER) 177 mg/dL 70-105 (test qzuq=857) CALCIUM (BEAKER) (test 9.4 mg/dL 8.4-10.2 xebx=122) AST (SGOT) (BEAKER) (test 9 U/L 5-34 fiih=044) ALT (SGPT) (BEAKER) (test 10 U/L 6-55 txqi=306) EGFR (BEAKER) (test 40 mL/min/1.73 sq m ESTIMATED GFR IS NOT tjhd=8100) ACCURATE CREATININE CLEARANCE IN PREDICTING GLOMERULAR FILTRATION RATE. ESTIMATED GFR IS NOT APPLICABLE FOR DIALYSIS PATIENTS. PROTHROMBIN [id number] 05:59:00 Test Item Value Reference Range Comments PROTIME (BEAKER) (test jgxi=671) 17.4 seconds 11.7-14.7 INR (BEAKER) (test hbeu=549) 1.4 <=5.9 RECOMMENDED COUMADIN/WARFARIN INR THERAPY RANGESSTANDARD DOSE: 2.0 - 3.0 Includes: PROPHYLAXIS forvenous thrombosis, systemic embolization; TREATMENT for venous thrombosis and/or pulmonary embolus.HIGH RISK: Target INR is 2.5-3.5 for patients with mechanical heart valves.CBC W/PLT COUNT & AUTO [id number] 05:45:00 Test Item Value Reference Range Comments WHITE BLOOD CELL COUNT (BEAKER) (test yymo=818) 11.1 K/ L 3.5-10.5 RED BLOOD CELL COUNT (BEAKER) (test igsc=764) 3.63 M/ L 4.63-6.08 HEMOGLOBIN (BEAKER) (test rzoq=652) 8.8 GM/DL 13.7-17.5 HEMATOCRIT (BEAKER) (test gwlm=952) 29.8 % 40.1-51.0 MEAN CORPUSCULAR VOLUME (BEAKER) (test wlor=452) 82.1 fL 79.0-92.2 MEAN CORPUSCULAR HEMOGLOBIN (BEAKER) (test 24.2 pg 25.7-32.2 kpbv=192) MEAN CORPUSCULAR HEMOGLOBIN CONC (BEAKER) (test 29.5 GM/DL 32.3-36.5 gucz=092) RED CELL DISTRIBUTION WIDTH (BEAKER) (test 18.4 % 11.6-14.4 xbyw=687) PLATELET COUNT (BEAKER) (test pgio=680) 369 K/CU MM 150-450 MEAN PLATELET VOLUME (BEAKER) (test xsvx=417) 9.6 fL 9.4-12.4 NUCLEATED RED BLOOD CELLS (BEAKER) (test 0 /100 WBC 0-0 dxbz=966) NEUTROPHILS RELATIVE PERCENT (BEAKER) (test 72 % nuty=445) LYMPHOCYTES RELATIVE PERCENT (BEAKER) (test 17 % dojv=985) MONOCYTES RELATIVE PERCENT (BEAKER) (test 8 % ypxn=722) EOSINOPHILS RELATIVE PERCENT (BEAKER) (test 2 % lqmx=532) BASOPHILS RELATIVE PERCENT (BEAKER) (test 1 % olsv=513) NEUTROPHILS ABSOLUTE COUNT (BEAKER) (test 7.98 K/ L 1.78-5.38 qqsn=441) LYMPHOCYTES ABSOLUTE COUNT (BEAKER) (test 1.92 K/ L 1.32-3.57 opuo=045) MONOCYTES ABSOLUTE COUNT (BEAKER) (test 0.86 K/ L 0.30-0.82 jklr=456) EOSINOPHILS ABSOLUTE COUNT (BEAKER) (test 0.19 K/ L 0.04-0.54 hgsy=270) BASOPHILS ABSOLUTE COUNT (BEAKER) (test 0.06 K/ L 0.01-0.08 banf=964) IMMATURE GRANULOCYTES-RELATIVE PERCENT (BEAKER) 1 % 0-1 (test kmzm=9518) U/S, RENAL, [id number] 00:34:00Reason for exam:->Right renal massShould this be [...] MDReport Verified Date/Time: 11/14/2018 00:34:34 Reading Location: [address] Neuro Reading Room Electronically signed by: JEFF SANFORD MD on 2018 12:34 AMPOCT-GLUCOSE [id number] 21:25:00 Test Item Value Reference Range Comments POC-GLUCOSE METER (BEAKER) 155 mg/dL 70-110 TESTED AT [address] (test xszs=4495) [facility] [address] POCT-GLUCOSE [id number] 17:31:00 Test Item Value Reference Range Comments POC-GLUCOSE METER (BEAKER) 144 mg/dL 70-110 TESTED AT [address] (test fdnu=3880) [facility] [address] POCT-GLUCOSE [id number] 15:39:00 Test Item Value Reference Range Comments POC-GLUCOSE METER (BEAKER) 156 mg/dL 70-110 TESTED AT [address] (test zkyx=6480) [facility] [address] POCT-GLUCOSE [id number] 12:28:00 Test Item Value Reference Range Comments POC-GLUCOSE METER (BEAKER) 162 mg/dL 70-110 TESTED AT [address] (test sdqx=2823) [facility] [address] POCT-GLUCOSE [id number] 11:40:00 Test Item Value Reference Range Comments POC-GLUCOSE METER (BEAKER) 159 mg/dL 70-110 TESTED AT [address] (test blsc=6428) [facility] [address] HEMOGLOBIN [id number] 09:40:00 Test Item Value Reference Range Comments HEMOGLOBIN A1C (BEAKER) (test mxqo=927) 6.5 % 4.3-6.1 POCT-GLUCOSE [id number] 08:19:00 Test Item Value Reference Range Comments POC-GLUCOSE METER (BEAKER) 162 mg/dL 70-110 TESTED AT [address] (test njzs=4399) [facility] [address] OSMOLALITY, [id number] 07:44:00 Test Item Value Reference Range Comments OSMOLALITY URINE (BEAKER) 381 mOsm/kg 40-1,400 This is a corrected result. (test bwee=809) Previous result was 292 mOsm/kg on 11/13/2018 at [address] [employer] OSMOLALITY, [id number] 07:32:00 Test Item Value Reference Range Comments OSMOLALITY, SERUM (BEAKER) (test ecpm=905) 292 mOsm/kg 275-295 CALCIUM, [id number] 07:20:00 Test Item Value Reference Range Comments CALCIUM IONIZED (BEAKER) (test zmgo=701) 1.11 mmol/L 1.12-1.27 PH, BLOOD (BEAKER) (test ytso=0424) 7.44 TSH/FREE T4 IF [id number] 06:26:00 Test Item Value Reference Range Comments THYROID STIMULATING HORMONE (BEAKER) (test 2.50 uIU/mL 0.35-4.94 xxny=632) TROPONIN [id number] 06:04:00 Test Item Value Reference Range Comments TROPONIN I (BEAKER) (test xdyc=395) < ng/mL 0.00-0.03 Troponin I (TnI) levels [...] failure, acidosis, acute neurological disease, and persistent tachyarrhythmia.[id number] 06:02:00 Test Item Value Reference Range Comments PHOSPHORUS (BEAKER) (test czsu=464) 2.7 mg/dL 2.3-4.7 [id number] 06:02:00 Test Item Value Reference Range Comments MAGNESIUM (BEAKER) (test xdgp=412) 2.3 mg/dL 1.6-2.6 COMPREHENSIVE METABOLIC [id number] 06:02:00 Test Item Value Reference Range Comments TOTAL PROTEIN (BEAKER) 6.9 gm/dL 6.0-8.3 (test nljj=131) ALBUMIN (BEAKER) (test 3.6 g/dL 3.5-5.0 kewz=4137) ALKALINE PHOSPHATASE 77 U/L 40-150 (BEAKER) (test kgmo=027) BILIRUBIN TOTAL (BEAKER) 0.4 mg/dL 0.2-1.2 (test hsbx=460) SODIUM (BEAKER) (test 132 meq/L 136-145 bhgy=525) POTASSIUM (BEAKER) (test 4.7 meq/L 3.5-5.1 cbkj=480) CHLORIDE (BEAKER) (test 102 meq/L 98-107 uzds=816) CO2 (BEAKER) (test 22 meq/L 22-29 vprp=887) BLOOD UREA NITROGEN 36 mg/dL 7-21 (BEAKER) (test zcjv=399) CREATININE (BEAKER) (test 1.86 mg/dL 0.57-1.25 csfh=214) GLUCOSE RANDOM (BEAKER) 144 mg/dL 70-105 (test skxt=918) CALCIUM (BEAKER) (test 9.1 mg/dL 8.4-10.2 tvbf=703) AST (SGOT) (BEAKER) (test 9 U/L 5-34 whln=720) ALT (SGPT) (BEAKER) (test 10 U/L 6-55 qnin=593) EGFR (BEAKER) (test 36 mL/min/1.73 sq m ESTIMATED GFR IS NOT jfwv=2317) ACCURATE CREATININE CLEARANCE IN PREDICTING GLOMERULAR FILTRATION RATE. ESTIMATED GFR IS NOT APPLICABLE FOR DIALYSIS PATIENTS. CREATINE KINASE (CK)2018-11-13 06:02:00 Test Item Value Reference Range Comments CREATINE KINASE TOTAL (BEAKER) (test qjtk=370) 90 U/L 29-200 URINALYSIS W/ [id number] 06:00:00 Test Item Value Reference Range Comments COLOR (BEAKER) (test qgci=141) Yellow CLARITY (BEAKER) (test aozo=517) Hazy SPECIFIC GRAVITY UA (BEAKER) (test aktp=399) 1.010 1.001-1.035 PH UA (BEAKER) (test leee=516) 5.5 5.0-8.0 PROTEIN UA (BEAKER) (test vacv=955) Negative Negative GLUCOSE UA (BEAKER) (test rbmr=042) Negative Negative KETONES UA (BEAKER) (test qohh=336) Negative Negative BILIRUBIN UA (BEAKER) (test gbes=689) Negative Negative BLOOD UA (BEAKER) (test afau=291) Negative Negative NITRITE UA (BEAKER) (test onfo=425) Negative Negative LEUKOCYTE ESTERASE UA (BEAKER) (test gvha=028) Large Negative UROBILINOGEN UA (BEAKER) (test cdjg=013) 0.2 mg/dL 0.2-1.0 RBC UA (BEAKER) (test fxtr=157) 1 /HPF WBC UA (BEAKER) (test tdrm=748) 66 /HPF BACTERIA (BEAKER) (test ohdj=527) Many SQUAMOUS EPITHELIAL (BEAKER) (test cqcx=890) 1 /HPF SOURCE(BEAKER) (test nwsy=4364) B-TYPE NATRIURETIC FACTOR (BNP)2018-11-13 05:58:00 Test Item Value Reference Range Comments B-TYPE NATRIURETIC PEPTIDE (BEAKER) (test xyof=872) 88 pg/mL 0-100 PROTHROMBIN [id number] 05:39:00 Test Item Value Reference Range Comments PROTIME (BEAKER) (test lpez=855) 18.3 seconds 11.7-14.7 INR (BEAKER) (test mlzp=766) 1.5 <=5.9 RECOMMENDED COUMADIN/WARFARIN INR THERAPY RANGESSTANDARD DOSE: 2.0 - 3.0 Includes: PROPHYLAXIS forvenous thrombosis, systemic embolization; TREATMENT for venous thrombosis and/or pulmonary embolus.HIGH RISK: Target INR is 2.5-3.5 for patients with mechanical heart valves.CBC W/PLT COUNT & AUTO [id number] 05:31:00 Test Item Value Reference Range Comments WHITE BLOOD CELL COUNT (BEAKER) (test ctws=476) 11.8 K/ L 3.5-10.5 RED BLOOD CELL COUNT (BEAKER) (test fxze=243) 3.44 M/ L 4.63-6.08 HEMOGLOBIN (BEAKER) (test oray=609) 8.5 GM/DL 13.7-17.5 HEMATOCRIT (BEAKER) (test qvlh=282) 27.6 % 40.1-51.0 MEAN CORPUSCULAR VOLUME (BEAKER) (test tfom=305) 80.2 fL 79.0-92.2 MEAN CORPUSCULAR HEMOGLOBIN (BEAKER) (test 24.7 pg 25.7-32.2 ocyq=780) MEAN CORPUSCULAR HEMOGLOBIN CONC (BEAKER) (test 30.8 GM/DL 32.3-36.5 bghx=987) RED CELL DISTRIBUTION WIDTH (BEAKER) (test 18.4 % 11.6-14.4 odbb=326) PLATELET COUNT (BEAKER) (test wwic=693) 360 K/CU MM 150-450 MEAN PLATELET VOLUME (BEAKER) (test fsob=356) 9.6 fL 9.4-12.4 NUCLEATED RED BLOOD CELLS (BEAKER) (test 0 /100 WBC 0-0 rbvd=330) NEUTROPHILS RELATIVE PERCENT (BEAKER) (test 66 % nbwq=079) LYMPHOCYTES RELATIVE PERCENT (BEAKER) (test 24 % rgjn=430) MONOCYTES RELATIVE PERCENT (BEAKER) (test 7 % kanb=630) EOSINOPHILS RELATIVE PERCENT (BEAKER) (test 2 % yuok=405) BASOPHILS RELATIVE PERCENT (BEAKER) (test 1 % kyct=111) NEUTROPHILS ABSOLUTE COUNT (BEAKER) (test 7.75 K/ L 1.78-5.38 cwot=923) LYMPHOCYTES ABSOLUTE COUNT (BEAKER) (test 2.84 K/ L 1.32-3.57 xlog=769) MONOCYTES ABSOLUTE COUNT (BEAKER) (test 0.83 K/ L 0.30-0.82 pcvq=427) EOSINOPHILS ABSOLUTE COUNT (BEAKER) (test 0.23 K/ L 0.04-0.54 gmvc=476) BASOPHILS ABSOLUTE COUNT (BEAKER) (test 0.06 K/ L 0.01-0.08 osrr=036) IMMATURE GRANULOCYTES-RELATIVE PERCENT (BEAKER) 1 % 0-1 (test ipzu=8929) PROTEIN, RANDOM [id number] 03:02:00 Test Item Value Reference Range Comments PROTEIN, URINE (BEAKER) (test kezi=7782) < mg/dL 0-14 CREATININE, RANDOM [id number] 02:56:00 Test Item Value Reference Range Comments CREATININE URINE (BEAKER) (test fqoj=485) 63.6 mg/dL Reference Range: No NormalsSODIUM, RANDOM [id number] 02:56:00 Test Item Value Reference Range Comments SODIUM URINE (BEAKER) (test rdru=799) 83 meq/L Reference Range: No NormalsHEMOGLOBIN AND [id number] 01:12:00 Test Item Value Reference Range Comments HEMOGLOBIN (BEAKER) (test jjyn=647) 8.8 GM/DL 13.7-17.5 HEMATOCRIT (BEAKER) (test vzrx=899) 28.1 % 40.1-51.0 POCT-GLUCOSE [id number] 21:32:00 Test Item Value Reference Range Comments POC-GLUCOSE METER (BEAKER) 142 mg/dL 70-110 TESTED AT [address] (test bgam=2797) [place] [id number] POCT-GLUCOSE [id number] 16:46:00 Test Item Value Reference Range Comments POC-GLUCOSE METER (BEAKER) 134 mg/dL 70-110 TESTED AT [address] (test nien=7100) [place] [id number] HEMOGLOBIN AND [id number] 16:15:00 Test Item Value Reference Range Comments HEMOGLOBIN (BEAKER) (test tvhk=291) 8.8 GM/DL 13.7-17.5 HEMATOCRIT (BEAKER) (test uisq=265) 28.4 % 40.1-51.0 POCT-GLUCOSE [id number] 13:55:00 Test Item Value Reference Range Comments POC-GLUCOSE METER (BEAKER) 199 mg/dL 70-110 TESTED AT [address] (test geqg=9435) [facility] [address] HEMOGLOBIN AND [id number] 12:41:00 Test Item Value Reference Range Comments HEMOGLOBIN (BEAKER) (test wrlx=985) 8.5 GM/DL 13.7-17.5 HEMATOCRIT (BEAKER) (test vncj=211) 28.1 % 40.1-51.0 [id number] 04:05:00 Test Item Value Reference Range Comments FERRITIN (BEAKER) (test ldmh=236) 40 ng/mL 5-275 IRON, TIBC, % SAT. (WITHOUT FERRITIN)2018-11-12 03:43:00 Test Item Value Reference Range Comments IRON (BEAKER) (test vyyu=995) 51.0 ug/dL 40.0-160.0 TOTAL IRON BINDING CAPACITY (BEAKER) (test 374 ug/dL 250-450 njco=420) IRON % SATURATION (2) (BEAKER) (test vrir=0339) 14 % 20-55 RETICULOCYTE [id number] 03:41:00 Test Item Value Reference Range Comments RETICULOCYTE COUNT PCT (BEAKER) (test vkne=067) 2.8 % 0.5-1.8 URINALYSIS W/ REFLEX URINE [id number] 03:33:00 Test Item Value Reference Range Comments COLOR (BEAKER) (test heip=371) Light Yellow CLARITY (BEAKER) (test yooq=178) Clear SPECIFIC GRAVITY UA (BEAKER) (test mhvf=869) 1.005 1.001-1.035 PH UA (BEAKER) (test wcpa=873) 5.5 5.0-8.0 PROTEIN UA (BEAKER) (test bnll=141) Negative Negative GLUCOSE UA (BEAKER) (test lzwp=005) Negative Negative KETONES UA (BEAKER) (test krmc=807) Negative Negative BILIRUBIN UA (BEAKER) (test lvuy=114) Negative Negative BLOOD UA (BEAKER) (test hpin=689) Negative Negative NITRITE UA (BEAKER) (test sfic=344) Negative Negative LEUKOCYTE ESTERASE UA (BEAKER) (test vuao=595) Small Negative UROBILINOGEN UA (BEAKER) (test uodx=704) 0.2 mg/dL 0.2-1.0 RBC UA (BEAKER) (test oefy=822) 1 /HPF WBC UA (BEAKER) (test xein=437) 10 /HPF SQUAMOUS EPITHELIAL (BEAKER) (test ahwl=242) < /HPF HYALINE CASTS (BEAKER) (test faxy=056) 1 /LPF CRYSTALS, URINE (BEAKER) (test ngex=8466) Rare AMORPHOUS CRYSTALS (BEAKER) (test bsad=4148) Occasional SOURCE(BEAKER) (test rovg=8820) COMPREHENSIVE METABOLIC [id number] 01:37:00 Test Item Value Reference Range Comments TOTAL PROTEIN (BEAKER) 7.2 gm/dL 6.0-8.3 Specimen slightly (test yzzr=842) hemolyzed ALBUMIN (BEAKER) (test 3.8 g/dL 3.5-5.0 Specimen slightly nwmh=5625) hemolyzed ALKALINE PHOSPHATASE 82 U/L 40-150 (BEAKER) (test ofdl=160) BILIRUBIN TOTAL (BEAKER) 0.5 mg/dL 0.2-1.2 Specimen slightly (test wika=791) hemolyzed SODIUM (BEAKER) (test 128 meq/L 136-145 ohys=349) POTASSIUM (BEAKER) (test 5.1 meq/L 3.5-5.1 Specimen slightly loaa=572) hemolyzed CHLORIDE (BEAKER) (test 99 meq/L 98-107 nach=742) CO2 (BEAKER) (test 19 meq/L 22-29 ghnv=746) BLOOD UREA NITROGEN 36 mg/dL 7-21 (BEAKER) (test aime=401) CREATININE (BEAKER) (test 1.86 mg/dL 0.57-1.25 Specimen slightly ulds=563) hemolyzed GLUCOSE RANDOM (BEAKER) 117 mg/dL 70-105 (test ciip=489) CALCIUM (BEAKER) (test 9.0 mg/dL 8.4-10.2 lgts=401) AST (SGOT) (BEAKER) (test 13 U/L 5-34 Specimen slightly yahv=872) hemolyzed ALT (SGPT) (BEAKER) (test 10 U/L 6-55 Specimen slightly jhpb=220) hemolyzed EGFR (BEAKER) (test 36 mL/min/1.73 sq m ESTIMATED GFR IS NOT yufw=5891) ACCURATE CREATININE CLEARANCE IN PREDICTING GLOMERULAR FILTRATION RATE. ESTIMATED GFR IS NOT APPLICABLE FOR DIALYSIS PATIENTS. PROTHROMBIN [id number] 01:05:00 Test Item Value Reference Range Comments PROTIME (BEAKER) (test lmip=485) 18.4 seconds 11.7-14.7 INR (BEAKER) (test ozfj=941) 1.5 <=5.9 RECOMMENDED COUMADIN/WARFARIN INR THERAPY RANGESSTANDARD DOSE: 2.0 - 3.0 Includes: PROPHYLAXIS forvenous thrombosis, systemic embolization; TREATMENT for venous thrombosis and/or pulmonary embolus.HIGH RISK: Target INR is 2.5-3.5 for patients with mechanical heart valves.CBC W/PLT COUNT & AUTO [id number] 00:57:00 Test Item Value Reference Range Comments WHITE BLOOD CELL COUNT (BEAKER) (test pisf=112) 10.3 K/ L 3.5-10.5 RED BLOOD CELL COUNT (BEAKER) (test itys=311) 3.37 M/ L 4.63-6.08 HEMOGLOBIN (BEAKER) (test uoej=946) 8.4 GM/DL 13.7-17.5 HEMATOCRIT (BEAKER) (test qzvv=425) 26.9 % 40.1-51.0 MEAN CORPUSCULAR VOLUME (BEAKER) (test ltlz=447) 79.8 fL 79.0-92.2 MEAN CORPUSCULAR HEMOGLOBIN (BEAKER) (test 24.9 pg 25.7-32.2 cbie=842) MEAN CORPUSCULAR HEMOGLOBIN CONC (BEAKER) (test 31.2 GM/DL 32.3-36.5 jmuo=927) RED CELL DISTRIBUTION WIDTH (BEAKER) (test 18.0 % 11.6-14.4 ymcf=848) PLATELET COUNT (BEAKER) (test frdc=295) 334 K/CU MM 150-450 MEAN PLATELET VOLUME (BEAKER) (test adbi=859) 9.3 fL 9.4-12.4 NUCLEATED RED BLOOD CELLS (BEAKER) (test 0 /100 WBC 0-0 htmx=326) NEUTROPHILS RELATIVE PERCENT (BEAKER) (test 61 % fgia=481) LYMPHOCYTES RELATIVE PERCENT (BEAKER) (test 27 % kqjg=637) MONOCYTES RELATIVE PERCENT (BEAKER) (test 8 % llsz=813) EOSINOPHILS RELATIVE PERCENT (BEAKER) (test 3 % ievd=185) BASOPHILS RELATIVE PERCENT (BEAKER) (test 1 % itfb=938) NEUTROPHILS ABSOLUTE COUNT (BEAKER) (test 6.30 K/ L 1.78-5.38 yusb=716) LYMPHOCYTES ABSOLUTE COUNT (BEAKER) (test 2.73 K/ L 1.32-3.57 forp=453) MONOCYTES ABSOLUTE COUNT (BEAKER) (test 0.85 K/ L 0.30-0.82 gqgd=663) EOSINOPHILS ABSOLUTE COUNT (BEAKER) (test 0.30 K/ L 0.04-0.54 zuyx=793) BASOPHILS ABSOLUTE COUNT (BEAKER) (test 0.05 K/ L 0.01-0.08 yfjf=604) IMMATURE GRANULOCYTES-RELATIVE PERCENT (BEAKER) 1 % 0-1 (test pgzs=3201) POCT-GLUCOSE [id number] 21:06:00 Test Item Value Reference Range Comments POC-GLUCOSE METER (BEAKER) 138 mg/dL 70-[address] [facility] [address] [facility] (test hjvt=9334) [facility] [address] BASIC METABOLIC [id number] 08:06:00 Test Item Value Reference Range Comments SODIUM (BEAKER) (test 140 meq/L 136-145 oyxg=062) POTASSIUM (BEAKER) (test 3.7 meq/L 3.5-5.1 hzzf=515) CHLORIDE (BEAKER) (test 106 meq/L 98-107 kmtw=965) CO2 (BEAKER) (test 26 meq/L 22-29 xiyu=481) BLOOD UREA NITROGEN 18 mg/dL 7-21 (BEAKER) (test qjpm=784) CREATININE (BEAKER) (test 0.93 mg/dL 0.57-1.25 awun=879) GLUCOSE RANDOM (BEAKER) 118 mg/dL 70-105 (test izoz=724) CALCIUM (BEAKER) (test 9.0 mg/dL 8.4-10.2 ikdt=241) EGFR (BEAKER) (test 79 mL/min/1.73 sq m ESTIMATED GFR IS NOT awru=3191) ACCURATE CREATININE CLEARANCE IN PREDICTING GLOMERULAR FILTRATION RATE. ESTIMATED GFR IS NOT APPLICABLE FOR DIALYSIS PATIENTS. CBC W/PLT COUNT & AUTO [id number] 07:34:00 Test Item Value Reference Range Comments WHITE BLOOD CELL COUNT (BEAKER) (test nqya=566) 9.9 K/ L 3.5-10.5 RED BLOOD CELL COUNT (BEAKER) (test kyrl=546) 3.81 M/ L 4.63-6.08 HEMOGLOBIN (BEAKER) (test qxld=565) 10.6 GM/DL 13.7-17.5 HEMATOCRIT (BEAKER) (test wtkr=553) 32.7 % 40.1-51.0 MEAN CORPUSCULAR VOLUME (BEAKER) (test adni=819) 85.8 fL 79.0-92.2 MEAN CORPUSCULAR HEMOGLOBIN (BEAKER) (test 27.8 pg 25.7-32.2 kgff=929) MEAN CORPUSCULAR HEMOGLOBIN CONC (BEAKER) (test 32.4 GM/DL 32.3-36.5 girt=685) RED CELL DISTRIBUTION WIDTH (BEAKER) (test 16.5 % 11.6-14.4 zjsr=460) PLATELET COUNT (BEAKER) (test abdv=123) 233 K/CU MM 150-450 MEAN PLATELET VOLUME (BEAKER) (test aryi=807) 10.2 fL 9.4-12.4 NUCLEATED RED BLOOD CELLS (BEAKER) (test 0 /100 WBC 0-0 rrkp=483) NEUTROPHILS RELATIVE PERCENT (BEAKER) (test 62 % fkqa=706) LYMPHOCYTES RELATIVE PERCENT (BEAKER) (test 26 % ywbx=993) MONOCYTES RELATIVE PERCENT (BEAKER) (test 7 % oenz=881) EOSINOPHILS RELATIVE PERCENT (BEAKER) (test 3 % ctru=332) BASOPHILS RELATIVE PERCENT (BEAKER) (test 0 % kzsx=661) NEUTROPHILS ABSOLUTE COUNT (BEAKER) (test 6.11 K/ L 1.78-5.38 hrlq=390) LYMPHOCYTES ABSOLUTE COUNT (BEAKER) (test 2.59 K/ L 1.32-3.57 fnns=325) MONOCYTES ABSOLUTE COUNT (BEAKER) (test 0.73 K/ L 0.30-0.82 yvci=857) EOSINOPHILS ABSOLUTE COUNT (BEAKER) (test 0.34 K/ L 0.04-0.54 nuoe=832) BASOPHILS ABSOLUTE COUNT (BEAKER) (test 0.04 K/ L 0.01-0.08 wozg=388) IMMATURE GRANULOCYTES-RELATIVE PERCENT (BEAKER) 1 % 0-1 (test sdvb=9377)
[2019-10-01 06:57] LABS: Absolute Lymphocytes (CBC) 1.3 K/uL (0.7-4.9); Basophils % 0.7 % (0-1.3); Hematocrit 29.8 % (39.6-49.0); Lymphocytes % 16.7 % (15.3-44.8); MPV 7.9 fL (7.6-11.3); RBC Red Blood Cell Count 3.86 M/uL (4.33-5.43)
[2019-10-01 07:00] LABS: Protime INR 1.74
[2019-10-01 07:05] LABS: Potassium 4.3 mmol/L (3.5-5.1)
[2019-10-01 07:51] LABS: Anisocytosis 1+; Blood Morphology Comment NOTED (NOT SEEN); Platelet Estimate ADEQ
[2019-10-01 08:36] LABS: Urine Appearance CLEAR; Urine Bilirubin NEGATIVE (NEG); Urine Blood 3+ (NEG); Urine Color YELLOW; Urine Glucose NEGATIVE (NEG); Urine Microscopic Reflex ORDER UMIC; Urine Protein 2+ (NEG); Urine Specific Gravity 1.015 (1.005-1.030); Urine Urobilinogen 0.2 mg/dL (0.2-1.0)
[2019-10-01 08:39] LABS: Urine Bacteria 20-50 /HPF (NONE SEEN); Urine Culture Reflex Order REFLEXED; Urine RBC LOADED /HPF (NONE SEEN)
--- NOTE | 2019-10-01 09:04 | RAD REPORT ---
EXAM DESCRIPTION: CT - Abdomen Pelvis W Contrast - 10/01/2019 8:30 am CLINICAL HISTORY: HEMATURIA COMPARISON: CT abdomen and pelvis April 2017 TECHNIQUE: Biphasic, helical CT imaging of the abdomen and pelvis was performed following 100 ml non -ionic IV contrast. No oral contrast. All CT scans are performed using dose optimization technique as appropriate and may include automated exposure control or mA/KV adjustment according to patient size. FINDINGS: Small bilateral pleural effusions are present with partial atelectasis of each lower lobe. The liver, spleen, and pancreas show no suspicious findings. Gallbladder and biliary tree are also wi thout suspicious finding. In the midportion of the right kidney there is a 5.5 cm AP x 6.4 cm TR heterogeneous enhancing solid mass. 2017 study showed a right renal mass. Primary renal cell carcinoma is the most likely etiology. Surrounding renal parenchyma shows normal enhancement that is symmetric with the left. No suspicious contralateral left renal mass. There is a small 2.4 centimeter round low-density mass lateral margin of the left kidney believed to be a cyst. Attenuation value is 16 Hounsfield units. No enhancement e vident. Small cysts are present in the right kidney 10 mm or less in size. 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 No pyelonephritis. Minimal perinephric st randing is seen. No periaortic lymphadenopathy identified. No bladder abnormalities. No adrenal abnor malities. No gastric dilatation or wall thickening. No acute small bowel finding. Large amount of stool is pres ent filling the colon from cecum to distal descending colon. Sigmoid colon is very redundant and tort uous with the sigmoid colon reaching the anterior superior most aspect of the abdomen adjacent to the stomach. There is stool filling the distal sigmoid colon and rectum. Stranding is seen in the perire ctal fat without a discrete mass. No free air, free fluid or pneumatosis. No hernia, mass or bulky lymphadenopathy. Degenerative changes are present. No pathologic bone process. IMPRESSION: A 5.5 x 6.4 centimeter solid mass of the right kidney is present enlarged since the 2017 study. Primary renal cell carcinoma is by far the single most likely etiology. 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 No contralateral suspicious mass of the left kidney. No abnormal lymphadenopathy seen. Large stool volume throughout the colon. There is stranding in the fat adjacent to the rectum. No wal l thickening or mass. Small bilateral pleural effusions.
--- NOTE | 2019-10-01 11:05 | EDPHYS ---
Physician Documentation [facility] Name: Sam Suarez Age: 74 yrs Sex: Male : 1945 Arrival Date: 10/01/2019 Time: 06:24 Bed 7 Private MD: ED Physician Tee Rogers HPI: 10/01 08:34 This 74 yrs old Male presents to ER via EMS with complaints of blood in urine.kb 08:34 The patient presents with urinary symptoms, hematuria. Onset: The symptoms/episode kb began/occurred this morning. Modifying factors: The symptoms are alleviated by nothing, the symptoms are aggravated by nothing. Associated signs and symptoms: Pertinent positives: hematuria, Pertinent negatives: abdominal pain, constipation, diarrhea, dysuria, fever, nausea, vomiting. Severity of symptoms: At their worst the symptoms were moderate, in the emergency department the symptoms are unchanged. The patient has not experienced similar symptoms in the past. The patient has not recently seen a physician. Painless hematuria that started this morning. . Historical: - Allergies: 06:37 Dilaudid; rr5 06:37 Metformin HCl; rr5 - Home Meds: 06:37 Acetaminophen Oral as needed [Active]; albuterol sulfate 90 mcg/actuation Inhl HFAA 2 rr5 puffs every 6 hours [Active]; Aldactone 25 mg Oral tab 1 tab once daily [Active]; alprazolam 0.5 mg Oral TbDL 1 tab [Active]; Amaryl 2 mg Oral tab 1 tab once daily [Active]; aspirin 325 mg Oral tab 1 tab once daily [Active]; Betapace 80 mg Oral tab 1 tab 2 times per day [Active]; carvedilol 12.5 mg Oral tab 1 tab 2 times per day [Active]; Colace 100 mg Oral cap 1 cap 2 times per day [Active]; Coreg 12.5 mg Oral tab 1 tab every 12 hours [Active]; DuoNeb 0.5 mg-3 mg(2.5 mg base)/3 mL Inhl nebu 3 mL q6h prn [Active]; Eliquis 5 mg Oral tab 1 tab 2 times per day [Active]; finasteride 5 mg Oral tab 1 tab once daily [Active]; gabapentin 300 mg Oral cap 3 times per day [Active]; glipizide 5 mg Oral tab 1 tab 2 times per day [Active]; hydralazine 10 mg Oral tab 1 tab 2 times per day [Active]; hydrocodone-acetaminophen 7.5-325 mg Oral tab 1 tab q6h prn for Pain [Active]; ipratropium-albuterol 0.5 mg-3 mg(2.5 mg base)/3 mL Inhl nebu 3 mL 4 times per day [Active]; Lipitor 10 mg Oral tab 1 tab once daily [Active]; metolazone 5 mg Oral tab 1 tab once daily [Active]; lisinopril 20 mg Oral tab twice a day [Active]; Nicoderm CQ 14 mg/24 hr transdermal pt24 1 patch once daily [Active]; Ranexa 500 mg Oral Tb12 2 times per day [Active]; ranolazine 1000 mg Oral 2 times per day [Active]; sertraline 50 mg Oral tab 1 tab once daily [Active]; tamsulosin 0.4 mg Oral cp24 1 cap once daily [Active]; - PMHx: 06:37 Anemia; Anxiety; ATHEROSCLEROSIS; Atrial Fib; B12 deficiency; benign prostatic rr5 hyperplasia; CHF; Chronic pain; CKD; cognitive communication deficit; constipation; COPD; Diabetes - NIDDM; DYSPHAGIA; GERD; Hematuria; Hypertension; Hypokalemia; Hypomagnesemia; Major Depressive Disorder; - PSHx: 06:37 Appendectomy; rr5 - Immunization history:: Adult Immunizations up to date. - Social history:: Smoking status: Patient/guardian denies using tobacco, Patient/guardian denies using alcohol, street drugs. - Ebola Screening: : Patient negative for fever greater than or equal to 101.5 degrees Fahrenheit, and additional compatible Ebola Virus Disease symptoms Patient denies exposure to infectious person Patient denies travel to an Ebola-affected area in the 21 days before illness onset. ROS: 08:33 Constitutional: Negative for fever, chills, and weight loss, ENT: Negative for injury, kb pain, and discharge, Neck: Negative for injury, pain, and swelling, Cardiovascular: Negative for chest pain, palpitations, and edema, Respiratory: Negative for shortness of breath, cough, wheezing, and pleuritic chest pain, Abdomen/GI: Negative for abdominal pain, nausea, vomiting, diarrhea, and constipation, MS/Extremity: Negative for injury and deformity, Skin: Negative for injury, rash, and discoloration, Neuro: Negative for headache, weakness, numbness, tingling, and seizure. 08:33 : Positive for hematuria. Exam: 08:32 Constitutional: This is a well developed, well nourished patient who is awake, alert, kb and in no acute distress. Head/Face: Normocephalic, atraumatic. ENT: Nares patent. No nasal discharge, no septal abnormalities noted. Tympanic membranes are normal and external auditory canals are clear. Oropharynx with no redness, swelling, or masses, exudates, or evidence of obstruction, uvula midline. Mucous membranes moist. Neck: Trachea midline, no thyromegaly or masses palpated, and no cervical lymphadenopathy. Supple, full range of motion without nuchal rigidity, or vertebral point tenderness. No Meningismus. Chest/axilla: Normal chest wall appearance and motion. Nontender with no deformity. No lesions are appreciated. Cardiovascular: Regular rate and rhythm with a normal S1 and S2. No gallops, murmurs, or rubs. Normal PMI, no JVD. No pulse deficits. Respiratory: Lungs have equal breath sounds bilaterally, clear to auscultation and percussion. No rales, rhonchi or wheezes noted. No increased work of breathing, no retractions or nasal flaring. Skin: Warm, dry with normal turgor. Normal color with no rashes, no lesions, and no evidence of cellulitis. MS/ Extremity: Pulses equal, no cyanosis. Neurovascular intact. Full, normal range of motion. Neuro: Awake and alert, GCS 15, oriented to person, place, time, and situation. Cranial nerves II-XII grossly intact. Motor strength 5/5 in all extremities. Sensory grossly intact. Cerebellar exam normal. Normal gait. 08:32 Abdomen/GI: Inspection: distension, that is mild, in the abdomen diffusely, Bowel sounds: normal, in all quadrants, Palpation: soft, in all quadrants. Vital Signs: 06:24 BP 155 / 97; Pulse 81; Resp 19; Temp 98; Pulse Ox 99% ; Weight 108.86 kg; Height 6 ft. rr5 1 in. (185.42 cm); Pain 4/10; 07:00 BP 169 / 88; Pulse 80; Resp 18; Pulse Ox 96% ; sv 08:00 BP 151 / 85; Pulse 77; Resp 16; Pulse Ox 97% ; sv 09:00 BP 169 / 100; Pulse 77; Resp 16; Pulse Ox 97% ; bp 10:00 BP 179 / 82; Pulse 71; Resp 16; Pulse Ox 98% ; bp 11:33 BP 155 / 107; Pulse 77; Resp 16; Pulse Ox 98% ; bp 06:24 Body Mass Index 31.66 (108.86 kg, 185.42 cm) rr5 MDM: 06:25 Patient medically screened. kb 08:32 Data reviewed: vital signs, nurses notes. Data interpreted: Pulse oximetry: on room air kb is 99 %. Interpretation: normal. 09:40 Physician consultation: Pippa Olsen MD was called at 09:30. kb 10:05 Physician consultation: Dr Bush returned call for Dr Paige. Recommended transfer kb for urologist consult.. ED course: Transfer initiated to [facility]. 10:59 Counseling: I had a detailed discussion with the patient and/or guardian regarding: the kb historical points, exam findings, and any diagnostic results supporting the discharge/admit diagnosis, lab results, radiology results, the need to transfer to another facility, [facility] does not immediately have the required specialist. ED course: Dr Adams (urologist at [facility]) accepts consult. Dr Robles (hospitalist) accepts pt for transfer. 10/01 06:32 Order name: Basic Metabolic Panel; Complete Time: 07:06 kb 10/01 06:32 Order name: CBC with Diff kb 10/01 06:32 Order name: Protime (+inr); Complete Time: 07:05 kb 10/01 06:32 Order name: Ptt, Activated; Complete Time: 07:05 kb 10/01 07:52 Order name: Manual Differential; Complete Time: 07:57 EDMS 10/01 06:32 Order name: IV Saline Lock; Complete Time: 06:44 kb 10/01 06:32 Order name: Labs collected and sent; Complete Time: 06:44 kb 10/01 06:32 Order name: Urine Dipstick-Ancillary (obtain specimen); Complete Time: 07:09 kb 10/01 07:58 Order name: Urinalysis; Complete Time: 08:40 kb 10/01 08:11 Order name: CT Abd/Pelvis - IV Contrast Only; Complete Time: 09:07 kb 10/01 08:37 Order name: Urine Microscopic Only; Complete Time: 08:40 EDMS 10/01 08:42 Order name: Urine Culture EDOH Administered Medications: No medications were administered Disposition: 10/01/19 11:03 Transfer ordered to [facility]. Diagnosis are Hematuria, Renal Cell Carcinoma. - Reason for transfer: Higher level of care. - Accepting physician is Jarrouge. - Condition is Stable. - Problem is new. - Symptoms are unchanged. Addendum: 10/04/2019 23:02 Co-signature as Attending Physician, Tee Rogers MD. p kl Signatures: Dispatcher [employer] EDOH Julia Gallagher, CAN REFORMING MACHINE OPERATOR-C CAN REFORMING MACHINE OPERATOR-Ckb Tee Rogers MD MD pkl Andrea Benitez, RN RN Sergey Law, RN RN rr5 Corrections: (The following items were deleted from the chart) 10/01 08:03 06:33 UA MICROSCOPIC+U.LAB.BRZ ordered. EDOH EDOH 11:56 11:03 10/01/2019 11:03 Transfer ordered to [facility]. Diagnosis is bp Hematuria; Renal Cell Carcinoma. Reason for transfer: Higher level of care. Accepting physician is Jarrouge. Condition is Stable. Problem is new. Symptoms are unchanged. kb
--- NOTE | 2019-10-01 11:05 | ER ---
Nurse's Notes [facility] Name: Sam Suarez Age: 74 yrs Sex: Male : 1945 Arrival Date: 10/01/2019 Time: 06:24 Bed 7 Private MD: Diagnosis: Hematuria;Renal Cell Carcinoma Presentation: 10/01 06:24 Presenting complaint: EMS states: patient came from [facility] with a complaint of rr5 blood in urine. patient had history of right kidney cancer. today morning the nurse notice he pee very concentrated and with blood, they refer to dr. solano and advised to send in ER. patient is on blood thinners. dull pain when he pee. Transition of care: patient was received from another setting of care (long-term care facility), [facility]. Onset of symptoms was October 01, 2019. Risk Assessment: Do you want to hurt yourself or someone else? Patient reports no desire to harm self or others. Initial Sepsis Screen: Does the patient meet any 2 criteria? No. Patient's initial sepsis screen is negative. Does the patient have a suspected source of infection? No. Patient's initial sepsis screen is negative. Care prior to arrival: None. 06:24 Method Of Arrival: EMS: [facility] rr5 06:24 Acuity: AMANDA 3 rr5 Triage Assessment: 07:00 General: RECD REPORT FROM JOSE MARROQUIN. 74YO WM SENT FROM [facility] FOR HEMATURIA. H/O bp RENAL CELL CARCINOMA. General: Appears in no apparent distress. comfortable, Behavior is calm, cooperative. Pain: Denies pain. EENT: No deficits noted. Neuro: No deficits noted. Cardiovascular: No deficits noted. Respiratory: No deficits noted. GI: No signs and/or symptoms were reported involving the gastrointestinal system. : Reports HEMATURIA. Derm: No deficits noted. Musculoskeletal: No deficits noted. Historical: - Allergies: 06:37 Dilaudid; rr5 06:37 Metformin HCl; rr5 - Home Meds: 06:37 Acetaminophen Oral as needed [Active]; albuterol sulfate 90 mcg/actuation Inhl HFAA 2 rr5 puffs every 6 hours [Active]; Aldactone 25 mg Oral tab 1 tab once daily [Active]; alprazolam 0.5 mg Oral TbDL 1 tab [Active]; Amaryl 2 mg Oral tab 1 tab once daily [Active]; aspirin 325 mg Oral tab 1 tab once daily [Active]; Betapace 80 mg Oral tab 1 tab 2 times per day [Active]; carvedilol 12.5 mg Oral tab 1 tab 2 times per day [Active]; Colace 100 mg Oral cap 1 cap 2 times per day [Active]; Coreg 12.5 mg Oral tab 1 tab every 12 hours [Active]; DuoNeb 0.5 mg-3 mg(2.5 mg base)/3 mL Inhl nebu 3 mL q6h prn [Active]; Eliquis 5 mg Oral tab 1 tab 2 times per day [Active]; finasteride 5 mg Oral tab 1 tab once daily [Active]; gabapentin 300 mg Oral cap 3 times per day [Active]; glipizide 5 mg Oral tab 1 tab 2 times per day [Active]; hydralazine 10 mg Oral tab 1 tab 2 times per day [Active]; hydrocodone-acetaminophen 7.5-325 mg Oral tab 1 tab q6h prn for Pain [Active]; ipratropium-albuterol 0.5 mg-3 mg(2.5 mg base)/3 mL Inhl nebu 3 mL 4 times per day [Active]; Lipitor 10 mg Oral tab 1 tab once daily [Active]; metolazone 5 mg Oral tab 1 tab once daily [Active]; lisinopril 20 mg Oral tab twice a day [Active]; Nicoderm CQ 14 mg/24 hr transdermal pt24 1 patch once daily [Active]; Ranexa 500 mg Oral Tb12 2 times per day [Active]; ranolazine 1000 mg Oral 2 times per day [Active]; sertraline 50 mg Oral tab 1 tab once daily [Active]; tamsulosin 0.4 mg Oral cp24 1 cap once daily [Active]; - PMHx: 06:37 Anemia; Anxiety; ATHEROSCLEROSIS; Atrial Fib; B12 deficiency; benign prostatic rr5 hyperplasia; CHF; Chronic pain; CKD; cognitive communication deficit; constipation; COPD; Diabetes - NIDDM; DYSPHAGIA; GERD; Hematuria; Hypertension; Hypokalemia; Hypomagnesemia; Major Depressive Disorder; - PSHx: 06:37 Appendectomy; rr5 - Immunization history:: Adult Immunizations up to date. - Social history:: Smoking status: Patient/guardian denies using tobacco, Patient/guardian denies using alcohol, street drugs. - Ebola Screening: : Patient negative for fever greater than or equal to 101.5 degrees Fahrenheit, and additional compatible Ebola Virus Disease symptoms Patient denies exposure to infectious person Patient denies travel to an Ebola-affected area in the 21 days before illness onset. Screenin:37 Abuse screen: Denies threats or abuse. Denies injuries from another. Nutritional rr5 screening: No deficits noted. Tuberculosis screening: No symptoms or risk factors identified. Fall Risk Secondary diagnosis (15 points) impaired mobility, IV access (20 points). Gait- Impaired (20 pts.). Total Potts Fall Scale indicates High Risk Score (45 or more points). Fall prevention measures have been instituted. Side Rails Up X 2 Placed Close to Nursing Station Frequent Obs/Assessments Occuring As available patient and family educated on Fall Prevention Program and Strategies. Assessment: 06:24 General: Appears in no apparent distress. comfortable, Behavior is calm, cooperative, rr5 appropriate for age. Pain: Complains of pain in urethra Pain does not radiate. Pain currently is 4 out of 10 on a pain scale. Quality of pain is described as dull, Pain began suddenly, Is intermittent. Neuro: Level of Consciousness is awake, alert, obeys commands, Oriented to person, place, time, situation. Cardiovascular: Capillary refill < 3 seconds Patient's skin is warm and dry. Edema is 1+ to bilateral legs. Respiratory: Airway is patent Respiratory effort is even, unlabored, Respiratory pattern is regular, symmetrical. GI: No signs and/or symptoms were reported involving the gastrointestinal system. : Urine is presence of blood in diaper Reports blood in urine. EENT: No signs and/or symptoms were reported regarding the EENT system. Derm: Skin is fragile, is thin, Skin temperature is warm. 06:24 Musculoskeletal: Swelling present in right leg and left leg. rr5 07:00 Reassessment: SEE TRIAGE NOTE. bp 09:00 Reassessment: LEONELA ORNELAS, PT LAST IMMUNO-THERAPY DONE MARCH OF 2019. PT SEEING [facility] bp AMDDOX AT [facility] HEM[facility] CLN[facility]. PT ALSO SEEING DR KENNEY AT [facility] FOR IRON INFUSIONS AND BLOOD TRANSIONS. 10:00 Reassessment: ALL CURRENT ORDERS COMPLETED, PROVIDER NOTIFIED. DISPO PENDING. bp 11:33 Reassessment: REPORT TO TIANNA MARROQUIN FOR [facility], TRANSPORT PENDING. bp 11:55 Reassessment: EMS AT B/S FOR TRANSPORT. bp Vital Signs: 06:24 BP 155 / 97; Pulse 81; Resp 19; Temp 98; Pulse Ox 99% ; Weight 108.86 kg; Height 6 ft. rr5 1 in. (185.42 cm); Pain 4/10; 07:00 BP 169 / 88; Pulse 80; Resp 18; Pulse Ox 96% ; sv 08:00 BP 151 / 85; Pulse 77; Resp 16; Pulse Ox 97% ; sv 09:00 BP 169 / 100; Pulse 77; Resp 16; Pulse Ox 97% ; bp 10:00 BP 179 / 82; Pulse 71; Resp 16; Pulse Ox 98% ; bp 11:33 BP 155 / 107; Pulse 77; Resp 16; Pulse Ox 98% ; bp 06:24 Body Mass Index 31.66 (108.86 kg, 185.42 cm) rr5 ED Course: 06:24 Patient arrived in ED. rr5 06:24 Arm band placed on right wrist. rr5 06:25 Julia Gallagher FNP-C is PHCP. kb 06:25 Tee Rogers MD is Attending Physician. kb 06:29 Triage completed. rr5 06:40 Patient has correct armband on for positive identification. Bed in low position. Call rr5 light in reach. Side rails up X2. Pulse ox on. NIBP on. 06:45 Inserted saline lock: 20 gauge in right antecubital area, using aseptic technique. jd3 Blood collected. 07:10 Urine collected: clean catch specimen, Amount Voided: 100mL blood in urine. rr5 08:31 CT Abd/Pelvis - IV Contrast Only In Process Unspecified. EDMS 09:23 Andrea Benitez, CARA is Primary Nurse. bp 11:34 No provider procedures requiring assistance completed. Patient transferred, IV remains bp in place. Administered Medications: No medications were administered Outcome: 11:03 ER care complete, transfer ordered by . kb 11:34 Transferred by ground EMS to [facility], Transfer form completed. bp 11:34 Condition: stable 11:34 Instructed on the need for transfer. 11:56 Patient left the ED. bp Signatures: Dispatcher [employer] Julia Kilpatrick, GERIATRIC NURSE PRACTITIONER-C GERIATRIC NURSE PRACTITIONER-Ckb Lori Willson, RN RN Joce Andrews RN RN jd3 Andrea Benitez RN RN Sergey Law RN RN rr5
[2019-10-01 12:04] VITALS: TEMP 98
[2019-10-01 12:10] VITALS: O2SAT 98
[2019-10-01 12:11] VITALS: BP 155/107
== END 2019-10-01 11:56 | disposition short-term general hospital (02) ==
LOC: ER 06:18
DX: C64.1 Malignant neoplasm of right kidney, except renal pelvis (principal); F41.9 Anxiety disorder, unspecified; I48.91 Unspecified atrial fibrillation; N40.0 Benign prostatic hyperplasia without lower urinary tract symptoms; I50.9 Heart failure, unspecified; E11.22 Type 2 diabetes mellitus with diabetic chronic kidney disease; I12.9 Hypertensive chronic kidney disease with stage 1 through stage 4 chronic kidney disease, or unspecified chronic kidney disease; N18.9 Chronic kidney disease, unspecified; F32.9 Major depressive disorder, single episode, unspecified; Z79.01 Long term (current) use of 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; Z88.8 Allergy status to other drugs, medicaments and biological substances
CPT/HCPCS: 87088; 85025; 87086; 80048; 36415; 85610; 85730; 74177; 99285; Q9967; 81003; 81015

== ENCOUNTER 2019-10-06 12:56 | Emergency (ER) | payer OTHER ==
--- OUTSIDE RECORDS SUMMARY | 2019-10-06 13:04 | XMS REPORT ---
:1945 [facility] Address [address] [place] [address] Dr. Cobb [address] [place] [address] Care Team Providers Name Role Phone ADELSO BOLANOS Unavailable Unavailable ENEDINA, LEIDY ARIELLE Unavailable Unavailable OMAR ANA MARÍA Unavailable Unavailable KENYON LONDONO Unavailable Unavailable Problems This patient has no known problems. Allergies, Adverse Reactions, Alerts This patient has no known allergies or adverse reactions. Medications This patient has no known medications. Results Test Description Test Time Test Comments Text Results Atomic Results Result Comments POCT-GLUCOSE METER 2019-10-05 12:29:00 Test Item Value Reference Range Comments POC-GLUCOSE METER (BEAKER) 132 mg/dL 70-110 : TESTED AT [address] (test yiyp=0503) [place], [address]: Stencil Sprayer/Die Maker Bench Stamping [id number] for NOAM MARILY POCT-GLUCOSE [id number] 08:06:00 Test Item Value Reference Range Comments POC-GLUCOSE METER (BEAKER) 117 mg/dL 70-110 : TESTED AT [address] (test pqzx=7261) [facility], [address]: Stencil Sprayer/Die Maker Bench Stamping EL=[id number] for NOAM MARILY BASIC METABOLIC [id number] 05:57:00 Test Item Value Reference Range Comments SODIUM (BEAKER) (test 137 meq/L 136-145 lddh=878) POTASSIUM (BEAKER) (test 3.6 meq/L 3.5-5.1 ltzw=840) CHLORIDE (BEAKER) (test 107 meq/L 98-107 ncgr=220) CO2 (BEAKER) (test 24 meq/L 22-29 wate=295) BLOOD UREA NITROGEN 16 mg/dL 7-21 (BEAKER) (test ilqy=658) CREATININE (BEAKER) (test 1.20 mg/dL 0.57-1.25 qjsx=595) GLUCOSE RANDOM (BEAKER) 101 mg/dL 70-105 (test napt=701) CALCIUM (BEAKER) (test 8.4 mg/dL 8.4-10.2 tykt=008) EGFR (BEAKER) (test 59 mL/min/1.73 sq m ESTIMATED GFR IS NOT qbga=1081) ACCURATE CREATININE CLEARANCE IN PREDICTING GLOMERULAR FILTRATION RATE. ESTIMATED GFR IS NOT APPLICABLE FOR DIALYSIS PATIENTS. HEMOGLOBIN AND [id number] 05:08:00 Test Item Value Reference Range Comments HEMOGLOBIN (BEAKER) (test oept=801) 8.9 GM/DL 13.7-17.5 HEMATOCRIT (BEAKER) (test mtpq=296) 29.1 % 40.1-51.0 POCT-GLUCOSE [id number] 21:29:00 Test Item Value Reference Range Comments POC-GLUCOSE METER (BEAKER) 138 mg/dL 70-110 : TESTED AT [address] (test buuw=9318) [facility], [address]: Stencil Sprayer/Die Maker Bench Stamping [id number] for TAINA VALADEZ POCT-GLUCOSE [id number] 17:08:00 Test Item Value Reference Range Comments POC-GLUCOSE METER (BEAKER) 102 mg/dL 70-110 : TESTED AT [address] (test hbeu=4353) [facility], [address]: Stencil Sprayer/Die Maker Bench Stamping IQ=[id number] for REGINE SANTACRUZ POCT-GLUCOSE [id number] 07:12:00 Test Item Value Reference Range Comments POC-GLUCOSE METER (BEAKER) 116 mg/dL 70-110 : TESTED AT [address] (test sddq=6857) [facility], [address]: Stencil Sprayer/Die Maker Bench Stamping [id number] for REGINE SANTACRUZ CBC (HEMOGRAM ONLY)2019-10-04 07:07:00 Test Item Value Reference Range Comments WHITE BLOOD CELL COUNT (BEAKER) (test qbsi=891) 7.5 K/ L 3.5-10.5 RED BLOOD CELL COUNT (BEAKER) (test ztth=768) 3.76 M/ L 4.63-6.08 HEMOGLOBIN (BEAKER) (test ypmh=400) 9.3 GM/DL 13.7-17.5 HEMATOCRIT (BEAKER) (test sxaf=146) 30.2 % 40.1-51.0 MEAN CORPUSCULAR VOLUME (BEAKER) (test fkal=728) 80.3 fL 79.0-92.2 MEAN CORPUSCULAR HEMOGLOBIN (BEAKER) (test 24.7 pg 25.7-32.2 ltiz=554) MEAN CORPUSCULAR HEMOGLOBIN CONC (BEAKER) (test 30.8 GM/DL 32.3-36.5 beby=473) RED CELL DISTRIBUTION WIDTH (BEAKER) (test 23.2 % 11.6-14.4 gjwy=789) PLATELET COUNT (BEAKER) (test ornv=635) 262 K/CU MM 150-450 MEAN PLATELET VOLUME (BEAKER) (test luyv=214) 10.0 fL 9.4-12.4 NUCLEATED RED BLOOD CELLS (BEAKER) (test 0 /100 WBC 0-0 qdty=168) B-TYPE NATRIURETIC FACTOR (BNP)2019-10-04 06:56:00 Test Item Value Reference Range Comments B-TYPE NATRIURETIC PEPTIDE (BEAKER) (test 139 pg/mL 0-100 chbx=198) POCT-GLUCOSE [id number] 21:31:00 Test Item Value Reference Range Comments POC-GLUCOSE METER (BEAKER) 160 mg/dL 70-110 : TESTED AT [address] (test tyrr=7030) [facility], [address]: Stencil Sprayer/Die Maker Bench Stamping SZ=[id number] for LISA CHURCHILL POCT-GLUCOSE [id number] 12:14:00 Test Item Value Reference Range Comments POC-GLUCOSE METER (BEAKER) 124 mg/dL 70-110 : TESTED AT [address] (test ucgz=4760) [facility], [address]: Stencil Sprayer/Die Maker Bench Stamping IZ=[id number] for PEREZ, SERKALEM POCT-GLUCOSE [id number] 07:57:00 Test Item Value Reference Range Comments POC-GLUCOSE METER (BEAKER) 116 mg/dL 70-110 : TESTED AT [address] (test vfxb=0709) [facility], [address]: Stencil Sprayer/Die Maker Bench Stamping [id number] for PEREZ, SERKALEM BASIC METABOLIC [id number] 04:55:00 Test Item Value Reference Range Comments SODIUM (BEAKER) (test 136 meq/L 136-145 akij=578) POTASSIUM (BEAKER) (test 3.8 meq/L 3.5-5.1 vnpt=828) CHLORIDE (BEAKER) (test 106 meq/L 98-107 ydgy=538) CO2 (BEAKER) (test 23 meq/L 22-29 otnw=197) BLOOD UREA NITROGEN 13 mg/dL 7-21 (BEAKER) (test mypg=244) CREATININE (BEAKER) (test 0.93 mg/dL 0.57-1.25 hmtz=363) GLUCOSE RANDOM (BEAKER) 96 mg/dL 70-105 (test jysv=440) CALCIUM (BEAKER) (test 8.3 mg/dL 8.4-10.2 agkq=882) EGFR (BEAKER) (test 79 mL/min/1.73 sq m ESTIMATED GFR IS NOT grnt=6154) ACCURATE CREATININE CLEARANCE IN PREDICTING GLOMERULAR FILTRATION RATE. ESTIMATED GFR IS NOT APPLICABLE FOR DIALYSIS PATIENTS. CBC (HEMOGRAM ONLY)2019-10-03 04:37:00 Test Item Value Reference Range Comments WHITE BLOOD CELL COUNT (BEAKER) (test cqvc=587) 6.7 K/ L 3.5-10.5 RED BLOOD CELL COUNT (BEAKER) (test rklc=896) 3.73 M/ L 4.63-6.08 HEMOGLOBIN (BEAKER) (test xrou=164) 9.0 GM/DL 13.7-17.5 HEMATOCRIT (BEAKER) (test lbkh=906) 29.8 % 40.1-51.0 MEAN CORPUSCULAR VOLUME (BEAKER) (test nnul=756) 79.9 fL 79.0-92.2 MEAN CORPUSCULAR HEMOGLOBIN (BEAKER) (test 24.1 pg 25.7-32.2 psvm=450) MEAN CORPUSCULAR HEMOGLOBIN CONC (BEAKER) (test 30.2 GM/DL 32.3-36.5 ptch=673) RED CELL DISTRIBUTION WIDTH (BEAKER) (test 22.9 % 11.6-14.4 jkxe=795) PLATELET COUNT (BEAKER) (test dfci=784) 264 K/CU MM 150-450 MEAN PLATELET VOLUME (BEAKER) (test dqmr=809) 9.5 fL 9.4-12.4 NUCLEATED RED BLOOD CELLS (BEAKER) (test 0 /100 WBC 0-0 hwdn=075) POCT-GLUCOSE [id number] 23:51:00 Test Item Value Reference Range Comments POC-GLUCOSE METER (BESoundSenasation) 107 mg/dL 70-110 : TESTED AT [facility] [address] (test qizu=2644) [facility], [address]: Stencil Sprayer/Die Maker Bench Stamping IZ=[id number] for LISA CHURCHILL CT, CHEST, WITH [id number] 20:40:00FINAL REPORT EXAM: CT chest Clinical history: Renal cell carcinoma COMPARISON: January 12, 2019 TECHNIQUE: Helical images of the chest were obtained after IV contrast administration DOSE REDUCTION: The exams was performed according to the departmental dose-optimization program which includes automated exposure control , adjustment of the mA and/or kV according to patient size and/or use of iterative reconstruction technique. FINDINGS: Multiple subcentimeter pulmonary nodules arenoted which are new compared to the prior study. Specifically, there is a 3.9 mm Nodule in the rightupper lobe on image 23, 6.7 mm nodule in the left upper lobe on image 12, and a 6.5 mm nodule in thelingula on image 38. In addition, there is mild increase in prominence of the mediastinal lymph nodes. For example, the left paratracheal lymph node measuring 6.1 mm measured 3.4 mm previously. There are 2 precarinal lymph nodes measure 4.4 and 5.7 mm were measured 1.9 and 5.4 mm previously. Bibasilaratelectasis is again noted. The tracheobronchial tree is clear. The cardiac size is within normal limits. The great vessels are normal in caliber and configuration. There is a hypodense structure measuring 1.2 x 0.9 x 3.5 cm in the proximal IVC, this may represent a thrombus. IMPRESSION: 1. Interval development of multiple subcentimeter pulmonary nodules and increase in size of the mediastinal lymph nodes which may represent metastatic disease. 2. Intraluminal filling defect in the proximal IVC is may represent a thrombus, in the setting of prior renal cell carcinoma, tumor thrombus cannot be excluded. Signed: Lexis Rodrigues MDReport Verified Date/Time: 10/02/2019 20:40:37 Reading Location: [address] Reading Room [id number] 08:52:00 Test Item Value Reference Range Comments FERRITIN (BEAKER) (test bsyi=136) 61 ng/mL 5-275 IRON, TIBC, % SAT. (WITHOUT FERRITIN)2019-10-02 08:32:00 Test Item Value Reference Range Comments IRON (BEAKER) (test ntwm=121) 24.0 ug/dL 40.0-160.0 TOTAL IRON BINDING CAPACITY (BEAKER) (test 314 ug/dL 250-450 whsi=601) IRON % SATURATION (2) (BEAKER) (test xkta=3205) 8 % 20-55 BASIC METABOLIC [id number] 07:20:00 Test Item Value Reference Range Comments SODIUM (BEAKER) (test 136 meq/L 136-145 cjll=317) POTASSIUM (BEAKER) (test 4.0 meq/L 3.5-5.1 irsq=041) CHLORIDE (BEAKER) (test 106 meq/L 98-107 vveb=785) CO2 (BEAKER) (test 24 meq/L 22-29 afjk=486) BLOOD UREA NITROGEN 13 mg/dL 7-21 (BEAKER) (test hhvj=171) CREATININE (BEAKER) (test 0.95 mg/dL 0.57-1.25 fveh=741) GLUCOSE RANDOM (BEAKER) 99 mg/dL 70-105 (test sgln=497) CALCIUM (BEAKER) (test 8.5 mg/dL 8.4-10.2 kywd=756) EGFR (BEAKER) (test 77 mL/min/1.73 sq m ESTIMATED GFR IS NOT sgho=1334) ACCURATE CREATININE CLEARANCE IN PREDICTING GLOMERULAR FILTRATION RATE. ESTIMATED GFR IS NOT APPLICABLE FOR DIALYSIS PATIENTS. CBC (HEMOGRAM ONLY)2019-10-02 07:13:00 Test Item Value Reference Range Comments WHITE BLOOD CELL COUNT (BEAKER) (test kfgu=325) 7.8 K/ L 3.5-10.5 RED BLOOD CELL COUNT (BEAKER) (test dcnl=700) 3.66 M/ L 4.63-6.08 HEMOGLOBIN (BEAKER) (test rybb=328) 8.9 GM/DL 13.7-17.5 HEMATOCRIT (BEAKER) (test dcje=184) 29.2 % 40.1-51.0 MEAN CORPUSCULAR VOLUME (BEAKER) (test acgi=762) 79.8 fL 79.0-92.2 MEAN CORPUSCULAR HEMOGLOBIN (BEAKER) (test 24.3 pg 25.7-32.2 trhs=932) MEAN CORPUSCULAR HEMOGLOBIN CONC (BEAKER) (test 30.5 GM/DL 32.3-36.5 moco=402) RED CELL DISTRIBUTION WIDTH (BEAKER) (test 23.0 % 11.6-14.4 qkmd=006) PLATELET COUNT (BEAKER) (test hlbg=039) 267 K/CU MM 150-450 MEAN PLATELET VOLUME (BEAKER) (test wtjk=877) 9.6 fL 9.4-12.4 NUCLEATED RED BLOOD CELLS (BEAKER) (test 0 /100 WBC 0-0 xsmw=417) POCT-GLUCOSE [id number] 21:27:00 Test Item Value Reference Range Comments POC-GLUCOSE METER (BEAKER) 97 mg/dL 70-110 : TESTED AT [facility] [address] [facility] (test eooc=2953) [facility], [address]: Stencil Sprayer/Die Maker Bench Stamping HA=[id number] for [employer] HE[employer]IC [employer]CTION [id number] 17:31:00 Test Item Value Reference Range Comments TOTAL PROTEIN (BEAKER) (test yvrx=423) 6.1 gm/dL 6.0-8.3 ALBUMIN (BEAKER) (test fgrz=3827) 3.5 g/dL 3.5-5.0 BILIRUBIN TOTAL (BEAKER) (test phul=974) 0.3 mg/dL 0.2-1.2 BILIRUBIN DIRECT (BEAKER) (test dquh=523) 0.2 mg/dL 0.1-0.5 ALKALINE PHOSPHATASE (BEAKER) (test eglv=050) 97 U/L 40-150 AST (SGOT) (BEAKER) (test eesu=099) 10 U/L 5-34 ALT (SGPT) (BEAKER) (test gdgs=961) 10 U/L 6-55 BASIC METABOLIC [id number] 17:31:00 Test Item Value Reference Range Comments SODIUM (BEAKER) (test 138 meq/L 136-145 qcow=101) POTASSIUM (BEAKER) (test 3.9 meq/L 3.5-5.1 pagv=903) CHLORIDE (BEAKER) (test 106 meq/L 98-107 dwqs=739) CO2 (BEAKER) (test 25 meq/L 22-29 fhbh=498) BLOOD UREA NITROGEN 11 mg/dL 7-21 (BEAKER) (test mart=359) CREATININE (BEAKER) (test 0.95 mg/dL 0.57-1.25 lykr=075) GLUCOSE RANDOM (BEAKER) 92 mg/dL 70-105 (test bxzt=070) CALCIUM (BEAKER) (test 8.7 mg/dL 8.4-10.2 hvmb=262) EGFR (BEAKER) (test 77 mL/min/1.73 sq m ESTIMATED GFR IS NOT hogs=9095) ACCURATE CREATININE CLEARANCE IN PREDICTING GLOMERULAR FILTRATION RATE. ESTIMATED GFR IS NOT APPLICABLE FOR DIALYSIS PATIENTS. URINALYSIS W/ REFLEX URINE [id number] 17:25:00 Test Item Value Reference Range Comments COLOR (BEAKER) (test znwf=485) [place] CLARITY (BEAKER) (test kxzm=361) Hazy SPECIFIC GRAVITY UA (BEAKER) (test yeku=773) 1.016 1.001-1.035 PH UA (BEAKER) (test zuuc=149) 6.5 5.0-8.0 PROTEIN UA (BEAKER) (test vmss=954) 100 mg/dL Negative GLUCOSE UA (BEAKER) (test pmnx=817) Negative Negative KETONES UA (BEAKER) (test yqjz=335) Negative Negative BILIRUBIN UA (BEAKER) (test wtcx=018) Negative Negative BLOOD UA (BEAKER) (test pymc=943) Large Negative NITRITE UA (BEAKER) (test eldp=277) Negative Negative LEUKOCYTE ESTERASE UA (BEAKER) (test ykjy=319) Trace Negative UROBILINOGEN UA (BEAKER) (test jfgu=594) 0.2 mg/dL 0.2-1.0 RBC UA (BEAKER) (test ydyb=869) 2270 /HPF WBC UA (BEAKER) (test jgqs=491) 0 /HPF SOURCE(BEAKER) (test ivwc=8318) [id number] 17:24:00 Test Item Value Reference Range Comments PROTIME (BEAKER) (test onac=094) 18.2 seconds 11.9-14.2 INR (BEAKER) (test fjhb=029) 1.6 <=5.9 PARTIAL THROMBOPLASTIN TIME (BEAKER) (test 54.0 seconds 22.5-36.0 nmfs=945) Effective 02/25/2019: PT Reference Range ChangeNew: 11.9-14.2 Previous: 11.7- 14.7RECOMMENDED COUMADIN/WARFARIN INR THERAPY RANGESSTANDARD DOSE: 2.0-3.0 Includes: PROPHYLAXIS for venous thrombosis, systemic embolization; TREATMENT for venous thrombosis and/or pulmonary embolus.HIGH RISK: Target INR is2.5-3.5 for patients wiht mechanical heart valves.CBC (HEMOGRAM ONLY)2019-10-01 17:22:00 Test Item Value Reference Range Comments WHITE BLOOD CELL COUNT (BEAKER) (test bxmu=272) 8.3 K/ L 3.5-10.5 RED BLOOD CELL COUNT (BEAKER) (test ardh=917) 3.75 M/ L 4.63-6.08 HEMOGLOBIN (BEAKER) (test mire=186) 9.1 GM/DL 13.7-17.5 HEMATOCRIT (BEAKER) (test ffih=746) 30.2 % 40.1-51.0 MEAN CORPUSCULAR VOLUME (BEAKER) (test wmct=499) 80.5 fL 79.0-92.2 MEAN CORPUSCULAR HEMOGLOBIN (BEAKER) (test 24.3 pg 25.7-32.2 dbjd=345) MEAN CORPUSCULAR HEMOGLOBIN CONC (BEAKER) (test 30.1 GM/DL 32.3-36.5 njbl=646) RED CELL DISTRIBUTION WIDTH (BEAKER) (test 22.7 % 11.6-14.4 bqsy=602) PLATELET COUNT (BEAKER) (test cuyd=334) 286 K/CU MM 150-450 MEAN PLATELET VOLUME (BEAKER) (test uvqf=600) 9.2 fL 9.4-12.4 NUCLEATED RED BLOOD CELLS (BEAKER) (test 0 /100 WBC 0-0 lncg=568) PROTHROMBIN [id number] 17:22:00 Test Item Value Reference Range Comments PROTIME (BEAKER) (test qplb=574) 18.2 seconds 11.9-14.2 INR (BEAKER) (test pnhu=920) 1.6 <=5.9 Effective 02/25/2019: PT Reference Range ChangeNew: 11.9-14.2 Previous: 11.7- 14.7RECOMMENDED COUMADIN/WARFARIN INR THERAPY RANGESSTANDARD DOSE: 2.0-3.0 Includes: PROPHYLAXIS for venous thrombosis, systemic embolization; TREATMENT for venous thrombosis and/or pulmonary embolus.HIGH RISK: Target INR is2.5-3.5 for patients wiht mechanical heart valves.POCT-GLUCOSE [id number] 16:58:00 Test Item Value Reference Range Comments POC-GLUCOSE METER (BEAKER) 93 mg/dL 70-110 : TESTED AT [facility] [address] [facility] (test uyxk=5664) [facility], [address]: Stencil Sprayer/Die Maker Bench Stamping YO=[id number] for KALEB PINA POCT-GLUCOSE [id number] 16:41:00 Test Item Value Reference Range Comments POC-GLUCOSE METER (BEAKER) 166 mg/dL 70-110 TESTED AT [address] (test olcg=8479) [facility] [address] ANG, NON-TUNNELED CATH/PICC >5 Y.O. WITH [id number] 14:38:00Reason for exam:->need for IV accessFINAL REPORT Right upper extremity PICC insertion. History: Needfor long-term IV therapy. Applications Chemist: Brandon Devries MD. Contracting Executive: Char Portillo (fellow). Modality: Sonography and fluoroscopy. [...] needle into the right atrium. A 5 Moldovan peel-away sheath was placed. The 5 Moldovan double-lumen PICC line was measured and cut [...] ready for immediate use. Signed: Brandon Devries Verified Date/Time: 01/19/2019 14:38:36 Reading Location: [place] [address] [facility] Reading Room [id number] 07:02:00 Test Item Value Reference Range Comments MAGNESIUM (BEAKER) (test 1.8 mg/dL 1.6-2.6 Specimen slightly hemolyzed xjak=881) BASIC METABOLIC [id number] 07:02:00 Test Item Value Reference Range Comments SODIUM (BEAKER) (test 141 meq/L 136-145 glac=212) POTASSIUM (BEAKER) (test 3.7 meq/L 3.5-5.1 Specimen slightly fwtx=973) hemolyzed CHLORIDE (BEAKER) (test 114 meq/L 98-107 ipxj=261) CO2 (BEAKER) (test 21 meq/L 22-29 ujuj=013) BLOOD UREA NITROGEN 17 mg/dL 7-21 (BEAKER) (test vlgz=554) CREATININE (BEAKER) (test 1.09 mg/dL 0.57-1.25 Specimen slightly dodc=237) hemolyzed GLUCOSE RANDOM (BEAKER) 116 mg/dL 70-105 (test ryms=915) CALCIUM (BEAKER) (test 8.8 mg/dL 8.4-10.2 pddc=254) EGFR (BEAKER) (test 66 mL/min/1.73 sq m ESTIMATED GFR IS NOT ynrt=1926) ACCURATE CREATININE CLEARANCE IN PREDICTING GLOMERULAR FILTRATION RATE. ESTIMATED GFR IS NOT APPLICABLE FOR DIALYSIS PATIENTS. POCT-GLUCOSE [id number] 06:28:00 Test Item Value Reference Range Comments POC-GLUCOSE METER (BEAKER) 121 mg/dL 70-110 TESTED AT [address] (test dtbc=2497) [facility] [address] POCT-GLUCOSE [id number] 21:25:00 Test Item Value Reference Range Comments POC-GLUCOSE METER (BEAKER) 163 mg/dL 70-110 TESTED AT [address] (test iphj=2709) [place] [address] POCT-GLUCOSE [id number] 17:12:00 Test Item Value Reference Range Comments POC-GLUCOSE METER (BEAKER) 191 mg/dL 70-110 TESTED AT [address] (test tday=9648) [place] [address] POCT-GLUCOSE [id number] 13:03:00 Test Item Value Reference Range Comments POC-GLUCOSE METER (BEAKER) 211 mg/dL 70-110 TESTED AT [address] (test jude=3119) [place] [address] POCT-GLUCOSE [id number] 08:47:00 Test Item Value Reference Range Comments POC-GLUCOSE METER (BEAKER) 124 mg/dL 70-110 TESTED AT [address] (test focz=3675) [place] [address] POCT-GLUCOSE [id number] 21:04:00 Test Item Value Reference Range Comments POC-GLUCOSE METER (BEAKER) 213 mg/dL 70-110 TESTED AT [address] (test akjr=2631) [place] [address] POCT-GLUCOSE [id number] 17:36:00 Test Item Value Reference Range Comments POC-GLUCOSE METER (BEAKER) 174 mg/dL 70-110 TESTED AT [address] (test ycfv=1099) [place] [address] POCT-GLUCOSE [id number] 11:59:00 Test Item Value Reference Range Comments POC-GLUCOSE METER (BEAKER) 175 mg/dL 70-110 TESTED AT [address] (test pgxp=6346) [place] [address] POCT-GLUCOSE [id number] 08:13:00 Test Item Value Reference Range Comments POC-GLUCOSE METER (BEAKER) 109 mg/dL 70-110 TESTED AT [facility] [address] [facility] (test qegv=6370) [facility] [address] [id number] 07:54:00 Test Item Value Reference Range Comments PHOSPHORUS (BEAKER) (test biuf=665) 3.1 mg/dL 2.3-4.7 [id number] 07:54:00 Test Item Value Reference Range Comments MAGNESIUM (BEAKER) (test szff=689) 1.7 mg/dL 1.6-2.6 BASIC METABOLIC [id number] 07:54:00 Test Item Value Reference Range Comments SODIUM (BEAKER) (test 140 meq/L 136-145 oazo=523) POTASSIUM (BEAKER) (test 3.7 meq/L 3.5-5.1 msny=377) CHLORIDE (BEAKER) (test 112 meq/L 98-107 nxzu=999) CO2 (BEAKER) (test 20 meq/L 22-29 hkpr=704) BLOOD UREA NITROGEN 22 mg/dL 7-21 (BEAKER) (test zrht=061) CREATININE (BEAKER) (test 1.20 mg/dL 0.57-1.25 wpko=805) GLUCOSE RANDOM (BEAKER) 85 mg/dL 70-105 (test pjbh=869) CALCIUM (BEAKER) (test 8.9 mg/dL 8.4-10.2 gwvr=984) EGFR (BEAKER) (test 59 mL/min/1.73 sq m ESTIMATED GFR IS NOT xukc=2900) ACCURATE CREATININE CLEARANCE IN PREDICTING GLOMERULAR FILTRATION RATE. ESTIMATED GFR IS NOT APPLICABLE FOR DIALYSIS PATIENTS. CALCIUM, [id number] 06:26:00 Test Item Value Reference Range Comments CALCIUM IONIZED (BEAKER) (test vtsw=234) 1.08 mmol/L 1.12-1.27 PH, BLOOD (BEAKER) (test fxrf=2463) 7.46 CBC W/PLT COUNT & AUTO [id number] 05:04:00 Test Item Value Reference Range Comments WHITE BLOOD CELL COUNT (BEAKER) (test lqll=739) 8.0 K/ L 3.5-10.5 RED BLOOD CELL COUNT (BEAKER) (test esua=577) 3.63 M/ L 4.63-6.08 HEMOGLOBIN (BEAKER) (test glpb=577) 9.3 GM/DL 13.7-17.5 HEMATOCRIT (BEAKER) (test gcso=399) 31.1 % 40.1-51.0 MEAN CORPUSCULAR VOLUME (BEAKER) (test ogtk=213) 85.7 fL 79.0-92.2 MEAN CORPUSCULAR HEMOGLOBIN (BEAKER) (test 25.6 pg 25.7-32.2 lind=951) MEAN CORPUSCULAR HEMOGLOBIN CONC (BEAKER) (test 29.9 GM/DL 32.3-36.5 ouzm=516) RED CELL DISTRIBUTION WIDTH (BEAKER) (test 17.6 % 11.6-14.4 lcpg=923) PLATELET COUNT (BEAKER) (test covh=530) 188 K/CU MM 150-450 MEAN PLATELET VOLUME (BEAKER) (test lgib=964) 9.8 fL 9.4-12.4 NUCLEATED RED BLOOD CELLS (BEAKER) (test 0 /100 WBC 0-0 trnp=727) NEUTROPHILS RELATIVE PERCENT (BEAKER) (test 59 % apjv=453) LYMPHOCYTES RELATIVE PERCENT (BEAKER) (test 30 % pnuh=152) MONOCYTES RELATIVE PERCENT (BEAKER) (test 7 % gojh=947) EOSINOPHILS RELATIVE PERCENT (BEAKER) (test 3 % gaih=594) BASOPHILS RELATIVE PERCENT (BEAKER) (test 1 % ezra=217) NEUTROPHILS ABSOLUTE COUNT (BEAKER) (test 4.67 K/ L 1.78-5.38 kbgq=162) LYMPHOCYTES ABSOLUTE COUNT (BEAKER) (test 2.37 K/ L 1.32-3.57 aeae=191) MONOCYTES ABSOLUTE COUNT (BEAKER) (test 0.55 K/ L 0.30-0.82 yuwc=197) EOSINOPHILS ABSOLUTE COUNT (BEAKER) (test 0.27 K/ L 0.04-0.54 fonq=188) BASOPHILS ABSOLUTE COUNT (BEAKER) (test 0.06 K/ L 0.01-0.08 htgz=197) IMMATURE GRANULOCYTES-RELATIVE PERCENT (BEAKER) 1 % 0-1 (test gdhl=1030) POCT-GLUCOSE [id number] 21:25:00 Test Item Value Reference Range Comments POC-GLUCOSE METER (BEAKER) 187 mg/dL 70-110 TESTED AT [address] (test utlg=6010) [facility] [id number] POCT-GLUCOSE [id number] 18:09:00 Test Item Value Reference Range Comments POC-GLUCOSE METER (BEAKER) 182 mg/dL 70-110 TESTED AT [address] (test zpsr=3146) [place] [id number] POCT-GLUCOSE [id number] 13:07:00 Test Item Value Reference Range Comments POC-GLUCOSE METER (BEAKER) 130 mg/dL 70-110 TESTED AT [address] (test embh=7567) [place] [id number] PROTHROMBIN [id number] 07:45:00 Test Item Value Reference Range Comments PROTIME (BEAKER) (test xzso=785) 16.0 seconds 11.7-14.7 INR (BEAKER) (test myea=724) 1.3 <=5.9 RECOMMENDED COUMADIN/WARFARIN INR THERAPY RANGESSTANDARD DOSE: 2.0 - 3.0 Includes: PROPHYLAXIS forvenous thrombosis, systemic embolization; TREATMENT for venous thrombosis and/or pulmonary embolus.HIGH RISK: Target INR is 2.5-3.5 for patients with mechanical heart valves.POCT-GLUCOSE [id number] 06:24:00 Test Item Value Reference Range Comments POC-GLUCOSE METER (BEAKER) 105 mg/dL 70-110 TESTED AT [address] (test krgd=3633) [facility] [address] POCT-GLUCOSE [id number] 21:22:00 Test Item Value Reference Range Comments POC-GLUCOSE METER (BEAKER) 149 mg/dL 70-110 TESTED AT [address] (test sfwu=9438) [facility] [address] POCT-GLUCOSE [id number] 17:11:00 Test Item Value Reference Range Comments POC-GLUCOSE METER (BEAKER) 147 mg/dL 70-110 TESTED AT [address] (test xass=4240) [place] [id number] POCT-GLUCOSE [id number] 12:59:00 Test Item Value Reference Range Comments POC-GLUCOSE METER (BEAKER) 144 mg/dL 70-110 TESTED AT [address] (test apla=0078) [facility] [address] POCT-GLUCOSE [id number] 09:26:00 Test Item Value Reference Range Comments POC-GLUCOSE METER (BEAKER) 135 mg/dL 70-110 TESTED AT [address] (test wbiy=3312) [facility] [address] BASIC METABOLIC [id number] 04:09:00 Test Item Value Reference Range Comments SODIUM (BEAKER) (test 140 meq/L 136-145 qteo=716) POTASSIUM (BEAKER) (test 3.5 meq/L 3.5-5.1 sgja=759) CHLORIDE (BEAKER) (test 109 meq/L 98-107 tmws=299) CO2 (BEAKER) (test 22 meq/L 22-29 fmim=796) BLOOD UREA NITROGEN 23 mg/dL 7-21 (BEAKER) (test brbu=766) CREATININE (BEAKER) (test 1.31 mg/dL 0.57-1.25 wwxi=526) GLUCOSE RANDOM (BEAKER) 103 mg/dL 70-105 (test qogw=659) CALCIUM (BEAKER) (test 9.0 mg/dL 8.4-10.2 kqep=702) EGFR (BEAKER) (test 53 mL/min/1.73 sq m ESTIMATED GFR IS NOT adck=9501) ACCURATE CREATININE CLEARANCE IN PREDICTING GLOMERULAR FILTRATION RATE. ESTIMATED GFR IS NOT APPLICABLE FOR DIALYSIS PATIENTS. POCT-GLUCOSE [id number] 21:24:00 Test Item Value Reference Range Comments POC-GLUCOSE METER (BEAKER) 166 mg/dL 70-110 TESTED AT [address] (test igrq=2749) [facility] [address] POCT-GLUCOSE [id number] 17:33:00 Test Item Value Reference Range Comments POC-GLUCOSE METER (BEAKER) 195 mg/dL 70-110 TESTED AT [address] (test xcqm=3136) [place] [id number] POCT-GLUCOSE [id number] 13:44:00 Test Item Value Reference Range Comments POC-GLUCOSE METER (BEAKER) 213 mg/dL 70-110 TESTED AT [address] (test izwb=6532) [facility] [address] POCT-GLUCOSE [id number] 09:29:00 Test Item Value Reference Range Comments POC-GLUCOSE METER (BEAKER) 150 mg/dL 70-110 TESTED AT [facility] [address] (test vjxk=1043) [facility] [address] [id number] 05:59:00 Test Item Value Reference Range Comments MAGNESIUM (BEAKER) (test 1.7 mg/dL 1.6-2.6 Specimen slightly hemolyzed htjz=130) [id number] 05:59:00 Test Item Value Reference Range Comments PHOSPHORUS (BEAKER) (test 3.2 mg/dL 2.3-4.7 Specimen slightly hemolyzed eqig=405) BASIC METABOLIC [id number] 05:59:00 Test Item Value Reference Range Comments SODIUM (BEAKER) (test 142 meq/L 136-145 qiic=256) POTASSIUM (BEAKER) (test 3.5 meq/L 3.5-5.1 Specimen slightly jmdy=134) hemolyzed CHLORIDE (BEAKER) (test 111 meq/L 98-107 fvqq=775) CO2 (BEAKER) (test 22 meq/L 22-29 mmnf=841) BLOOD UREA NITROGEN 24 mg/dL 7-21 (BEAKER) (test borc=747) CREATININE (BEAKER) (test 1.32 mg/dL 0.57-1.25 Specimen slightly ahts=218) hemolyzed GLUCOSE RANDOM (BEAKER) 122 mg/dL 70-105 (test ukrj=820) CALCIUM (BEAKER) (test 9.0 mg/dL 8.4-10.2 dshv=976) EGFR (BEAKER) (test 53 mL/min/1.73 sq m ESTIMATED GFR IS NOT xmrp=6185) ACCURATE CREATININE CLEARANCE IN PREDICTING GLOMERULAR FILTRATION RATE. ESTIMATED GFR IS NOT APPLICABLE FOR DIALYSIS PATIENTS. B-TYPE NATRIURETIC FACTOR (BNP)2019-01-14 05:58:00 Test Item Value Reference Range Comments B-TYPE NATRIURETIC PEPTIDE (BEAKER) (test 298 pg/mL 0-100 adrq=416) CBC W/PLT COUNT & AUTO [id number] 05:35:00 Test Item Value Reference Range Comments WHITE BLOOD CELL COUNT (BEAKER) (test rrbv=982) 10.1 K/ L 3.5-10.5 RED BLOOD CELL COUNT (BEAKER) (test nhhe=557) 3.57 M/ L 4.63-6.08 HEMOGLOBIN (BEAKER) (test bofe=880) 9.3 GM/DL 13.7-17.5 HEMATOCRIT (BEAKER) (test lurq=847) 30.1 % 40.1-51.0 MEAN CORPUSCULAR VOLUME (BEAKER) (test glwq=277) 84.3 fL 79.0-92.2 MEAN CORPUSCULAR HEMOGLOBIN (BEAKER) (test 26.1 pg 25.7-32.2 bhds=966) MEAN CORPUSCULAR HEMOGLOBIN CONC (BEAKER) (test 30.9 GM/DL 32.3-36.5 vtml=903) RED CELL DISTRIBUTION WIDTH (BEAKER) (test 17.6 % 11.6-14.4 sayg=779) PLATELET COUNT (BEAKER) (test xmtv=175) 187 K/CU MM 150-450 MEAN PLATELET VOLUME (BEAKER) (test ybpk=405) 9.3 fL 9.4-12.4 NUCLEATED RED BLOOD CELLS (BEAKER) (test 0 /100 WBC 0-0 part=574) NEUTROPHILS RELATIVE PERCENT (BEAKER) (test 69 % iikb=696) LYMPHOCYTES RELATIVE PERCENT (BEAKER) (test 23 % owhv=535) MONOCYTES RELATIVE PERCENT (BEAKER) (test 6 % rsll=932) EOSINOPHILS RELATIVE PERCENT (BEAKER) (test 2 % awsa=515) BASOPHILS RELATIVE PERCENT (BEAKER) (test 0 % zsha=194) NEUTROPHILS ABSOLUTE COUNT (BEAKER) (test 6.93 K/ L 1.78-5.38 itlk=964) LYMPHOCYTES ABSOLUTE COUNT (BEAKER) (test 2.33 K/ L 1.32-3.57 pjgz=761) MONOCYTES ABSOLUTE COUNT (BEAKER) (test 0.56 K/ L 0.30-0.82 vmjh=788) EOSINOPHILS ABSOLUTE COUNT (BEAKER) (test 0.23 K/ L 0.04-0.54 gkjd=169) BASOPHILS ABSOLUTE COUNT (BEAKER) (test 0.03 K/ L 0.01-0.08 vffo=155) IMMATURE GRANULOCYTES-RELATIVE PERCENT (BEAKER) 0 % 0-1 (test emmp=4422) POCT-GLUCOSE [id number] 21:05:00 Test Item Value Reference Range Comments POC-GLUCOSE METER (BEAKER) 168 mg/dL 70-110 TESTED AT [facility] [address] [facility] (test dtzl=3436) [facility] [address] POCT-GLUCOSE [id number] 18:28:00 Test Item Value Reference Range Comments POC-GLUCOSE METER (BEAKER) 220 mg/dL 70-110 TESTED AT [place] [id number] [facility] (test gzlj=2701) [facility] [address] POCT-GLUCOSE [id number] 13:39:00 Test Item Value Reference Range Comments POC-GLUCOSE METER (BEAKER) 262 mg/dL 70-110 TESTED AT [address] (test aenk=6001) [facility] [address] POCT-GLUCOSE [id number] 09:18:00 Test Item Value Reference Range Comments POC-GLUCOSE METER (BEAKER) 135 mg/dL 70-110 TESTED AT [address] (test cnli=0476) [facility] [address] OSMOLALITY, [id number] 07:19:00 Test Item Value Reference Range Comments OSMOLALITY URINE (BEAKER) 686 mOsm/kg 40-1,400 Performed at [facility] (test vted=029) [facility] CALCIUM, [id number] 06:54:00 Test Item Value Reference Range Comments CALCIUM IONIZED (BEAKER) (test spgq=167) 1.01 mmol/L 1.12-1.27 PH, BLOOD (BEAKER) (test jlzv=8411) 7.50 [id number] 06:20:00 Test Item Value Reference Range Comments PHOSPHORUS (BEAKER) (test zzsh=484) 3.2 mg/dL 2.3-4.7 [id number] 06:20:00 Test Item Value Reference Range Comments MAGNESIUM (BEAKER) (test dzbj=124) 1.7 mg/dL 1.6-2.6 BASIC METABOLIC [id number] 06:20:00 Test Item Value Reference Range Comments SODIUM (BEAKER) (test 140 meq/L 136-145 ijlx=018) POTASSIUM (BEAKER) (test 3.5 meq/L 3.5-5.1 nqtj=139) CHLORIDE (BEAKER) (test 109 meq/L 98-107 rmtb=286) CO2 (BEAKER) (test 24 meq/L 22-29 jvgm=025) BLOOD UREA NITROGEN 27 mg/dL 7-21 (BEAKER) (test vkij=465) CREATININE (BEAKER) (test 1.35 mg/dL 0.57-1.25 rmik=743) GLUCOSE RANDOM (BEAKER) 135 mg/dL 70-105 (test nrxu=924) CALCIUM (BEAKER) (test 9.1 mg/dL 8.4-10.2 uhvo=929) EGFR (BEAKER) (test 52 mL/min/1.73 sq m ESTIMATED GFR IS NOT zlke=6915) ACCURATE CREATININE CLEARANCE IN PREDICTING GLOMERULAR FILTRATION RATE. ESTIMATED GFR IS NOT APPLICABLE FOR DIALYSIS PATIENTS. CBC W/PLT COUNT & AUTO [id number] 05:44:00 Test Item Value Reference Range Comments WHITE BLOOD CELL COUNT (BEAKER) (test qxbx=196) 7.2 K/ L 3.5-10.5 RED BLOOD CELL COUNT (BEAKER) (test iaam=047) 3.47 M/ L 4.63-6.08 HEMOGLOBIN (BEAKER) (test kuce=733) 9.0 GM/DL 13.7-17.5 HEMATOCRIT (BEAKER) (test wpbu=809) 29.2 % 40.1-51.0 MEAN CORPUSCULAR VOLUME (BEAKER) (test zepd=698) 84.1 fL 79.0-92.2 MEAN CORPUSCULAR HEMOGLOBIN (BEAKER) (test 25.9 pg 25.7-32.2 nxes=806) MEAN CORPUSCULAR HEMOGLOBIN CONC (BEAKER) (test 30.8 GM/DL 32.3-36.5 vpcb=839) RED CELL DISTRIBUTION WIDTH (BEAKER) (test 18.0 % 11.6-14.4 xztc=789) PLATELET COUNT (BEAKER) (test syuw=781) 195 K/CU MM 150-450 MEAN PLATELET VOLUME (BEAKER) (test uhid=870) 9.1 fL 9.4-12.4 NUCLEATED RED BLOOD CELLS (BEAKER) (test 0 /100 WBC 0-0 mlyg=948) NEUTROPHILS RELATIVE PERCENT (BEAKER) (test 53 % mxdl=668) LYMPHOCYTES RELATIVE PERCENT (BEAKER) (test 35 % stbf=651) MONOCYTES RELATIVE PERCENT (BEAKER) (test 8 % jppp=678) EOSINOPHILS RELATIVE PERCENT (BEAKER) (test 4 % fpsn=258) BASOPHILS RELATIVE PERCENT (BEAKER) (test 1 % ckrw=466) NEUTROPHILS ABSOLUTE COUNT (BEAKER) (test 3.80 K/ L 1.78-5.38 tsuv=921) LYMPHOCYTES ABSOLUTE COUNT (BEAKER) (test 2.52 K/ L 1.32-3.57 ehjs=674) MONOCYTES ABSOLUTE COUNT (BEAKER) (test 0.55 K/ L 0.30-0.82 doys=697) EOSINOPHILS ABSOLUTE COUNT (BEAKER) (test 0.30 K/ L 0.04-0.54 ttsz=147) BASOPHILS ABSOLUTE COUNT (BEAKER) (test 0.04 K/ L 0.01-0.08 hyfh=091) IMMATURE GRANULOCYTES-RELATIVE PERCENT (BEAKER) 0 % 0-1 (test sopt=8526) MR, BRAIN, [id number] 04:02:00FINAL REPORT MR, BRAIN , WITH \T\ [...] MDReport Verified Date/Time: 01/13/2019 04:02:20 Reading Location: [facility] C0[facility] Neuro Reading Room POCT-GLUCOSE [id number] 22:05:00 Test Item Value Reference Range Comments POC-GLUCOSE METER (BEAKER) 187 mg/dL 70-110 TESTED AT [address] (test jovz=5391) [facility] [address] POCT-GLUCOSE [id number] 18:17:00 Test Item Value Reference Range Comments POC-GLUCOSE METER (BEAKER) 137 mg/dL 70-110 TESTED AT [address] (test mjhb=9675) [facility] [address] POCT-GLUCOSE [id number] 13:08:00 Test Item Value Reference Range Comments POC-GLUCOSE METER (BEAKER) 221 mg/dL 70-110 TESTED AT [address] (test rulp=5064) [facility] [address] CT, CHEST, WITHOUT [id number] 13:03:00FINAL REPORT CT of the Chest dated [...] Verified Date/Time: 01/12/2019 13:03: 39 Reading Location: [address] Body Reading Room POCT-GLUCOSE [id number] 07:53:00 Test Item Value Reference Range Comments POC-GLUCOSE METER (BEAKER) 156 mg/dL 70-110 TESTED AT [address] (test kuej=4386) [facility] [address] BASIC METABOLIC [id number] 03:16:00 Test Item Value Reference Range Comments SODIUM (BEAKER) (test 138 meq/L 136-145 nrzg=296) POTASSIUM (BEAKER) (test 3.6 meq/L 3.5-5.1 nyao=698) CHLORIDE (BEAKER) (test 106 meq/L 98-107 teem=941) CO2 (BEAKER) (test 22 meq/L 22-29 dbtm=820) BLOOD UREA NITROGEN 31 mg/dL 7-21 (BEAKER) (test kojm=991) CREATININE (BEAKER) (test 1.44 mg/dL 0.57-1.25 zfpt=146) GLUCOSE RANDOM (BEAKER) 123 mg/dL 70-105 (test kakd=039) CALCIUM (BEAKER) (test 9.1 mg/dL 8.4-10.2 exyi=707) EGFR (BEAKER) (test 48 mL/min/1.73 sq m ESTIMATED GFR IS NOT txgg=6413) ACCURATE CREATININE CLEARANCE IN PREDICTING GLOMERULAR FILTRATION RATE. ESTIMATED GFR IS NOT APPLICABLE FOR DIALYSIS PATIENTS. POCT-GLUCOSE [id number] 21:12:00 Test Item Value Reference Range Comments POC-GLUCOSE METER (BEAKER) 159 mg/dL 70-110 TESTED AT [facility] [address] [facility] (test mjcr=3339) [facility] [address] POCT-GLUCOSE [id number] 17:44:00 Test Item Value Reference Range Comments POC-GLUCOSE METER (BEAKER) 158 mg/dL 70-110 TESTED AT [facility] [address] [facility] (test xskr=1872) [facility] [address] U/S, RENAL, [id number] 10:50:00Reason for exam:->AKIShould this be performed at [...] MDReport Verified Date/Time: 01/11/2019 10:50:26 Reading Location: [facility] B1 [id number] Ortho Consult Reading Room MR, MRA ABDOMEN, WITHOUT FOLLOW WITH [id number] 08:43:00FINAL REPORT MRA of the abdominal [...] MDReport Verified Date/Time: 01/11 08:43:33 Reading Location: [place] [id number] Cardiology MRI POCT-GLUCOSE [id number] 07:57:00 Test Item Value Reference Range Comments POC-GLUCOSE METER (BEAKER) 137 mg/dL 70-110 TESTED AT [facility] [address] [facility] (test cytb=2346) [facility] [address] BASIC METABOLIC [id number] 07:37:00 Test Item Value Reference Range Comments SODIUM (BEAKER) (test 141 meq/L 136-145 epoa=343) POTASSIUM (BEAKER) (test 4.2 meq/L 3.5-5.1 zqwi=332) CHLORIDE (BEAKER) (test 106 meq/L 98-107 ytzv=558) CO2 (BEAKER) (test 25 meq/L 22-29 mauc=756) BLOOD UREA NITROGEN 35 mg/dL 7-21 (BEAKER) (test qqhp=636) CREATININE (BEAKER) (test 1.67 mg/dL 0.57-1.25 lmwn=850) GLUCOSE RANDOM (BEAKER) 121 mg/dL 70-105 (test ndwl=990) CALCIUM (BEAKER) (test 9.3 mg/dL 8.4-10.2 bcxt=838) EGFR (BEAKER) (test 40 mL/min/1.73 sq m ESTIMATED GFR IS NOT bjuc=7027) ACCURATE CREATININE CLEARANCE IN PREDICTING GLOMERULAR FILTRATION RATE. ESTIMATED GFR IS NOT APPLICABLE FOR DIALYSIS PATIENTS. CBC W/PLT COUNT & AUTO [id number] 06:21:00 Test Item Value Reference Range Comments WHITE BLOOD CELL COUNT (BEAKER) (test fooq=239) 7.3 K/ L 3.5-10.5 RED BLOOD CELL COUNT (BEAKER) (test utax=195) 3.65 M/ L 4.63-6.08 HEMOGLOBIN (BEAKER) (test oxey=589) 9.7 GM/DL 13.7-17.5 HEMATOCRIT (BEAKER) (test udmj=023) 30.8 % 40.1-51.0 MEAN CORPUSCULAR VOLUME (BEAKER) (test lkda=423) 84.4 fL 79.0-92.2 MEAN CORPUSCULAR HEMOGLOBIN (BEAKER) (test 26.6 pg 25.7-32.2 cdjt=492) MEAN CORPUSCULAR HEMOGLOBIN CONC (BEAKER) (test 31.5 GM/DL 32.3-36.5 mhyb=367) RED CELL DISTRIBUTION WIDTH (BEAKER) (test 18.2 % 11.6-14.4 xgbd=765) PLATELET COUNT (BEAKER) (test qpbw=257) 229 K/CU MM 150-450 MEAN PLATELET VOLUME (BEAKER) (test uwau=369) 9.7 fL 9.4-12.4 NUCLEATED RED BLOOD CELLS (BEAKER) (test 0 /100 WBC 0-0 dggi=221) NEUTROPHILS RELATIVE PERCENT (BEAKER) (test 55 % pooq=469) LYMPHOCYTES RELATIVE PERCENT (BEAKER) (test 31 % eoif=232) MONOCYTES RELATIVE PERCENT (BEAKER) (test 8 % acik=545) EOSINOPHILS RELATIVE PERCENT (BEAKER) (test 5 % ddsu=842) BASOPHILS RELATIVE PERCENT (BEAKER) (test 1 % kvqe=960) NEUTROPHILS ABSOLUTE COUNT (BEAKER) (test 3.99 K/ L 1.78-5.38 jfmh=034) LYMPHOCYTES ABSOLUTE COUNT (BEAKER) (test 2.28 K/ L 1.32-3.57 nncv=578) MONOCYTES ABSOLUTE COUNT (BEAKER) (test 0.59 K/ L 0.30-0.82 lvpp=474) EOSINOPHILS ABSOLUTE COUNT (BEAKER) (test 0.37 K/ L 0.04-0.54 mnzp=617) BASOPHILS ABSOLUTE COUNT (BEAKER) (test 0.05 K/ L 0.01-0.08 sxjs=680) IMMATURE GRANULOCYTES-RELATIVE PERCENT (BEAKER) 0 % 0-1 (test jcwz=0964) POCT-GLUCOSE [id number] 21:13:00 Test Item Value Reference Range Comments POC-GLUCOSE METER (BEAKER) 188 mg/dL 70-110 TESTED AT [address] (test bibb=0541) [facility] [address] POCT-GLUCOSE [id number] 18:14:00 Test Item Value Reference Range Comments POC-GLUCOSE METER (BEAKER) 159 mg/dL 70-110 TESTED AT [address] (test tdot=1078) [facility] [address] POCT-GLUCOSE [id number] 12:15:00 Test Item Value Reference Range Comments POC-GLUCOSE METER (BEAKER) 174 mg/dL 70-110 TESTED AT [facility] [address] (test dqzq=1196) [facility] [address] BASIC METABOLIC [id number] 11:21:00 Test Item Value Reference Range Comments SODIUM (BEAKER) (test 142 meq/L 136-145 jwfb=623) POTASSIUM (BEAKER) (test 3.9 meq/L 3.5-5.1 ubyr=637) CHLORIDE (BEAKER) (test 112 meq/L 98-107 cuja=584) CO2 (BEAKER) (test 22 meq/L 22-29 yfva=349) BLOOD UREA NITROGEN 35 mg/dL 7-21 (BEAKER) (test mdtc=755) CREATININE (BEAKER) (test 1.57 mg/dL 0.57-1.25 pslj=884) GLUCOSE RANDOM (BEAKER) 149 mg/dL 70-105 (test dzmd=386) CALCIUM (BEAKER) (test 8.3 mg/dL 8.4-10.2 rczd=489) EGFR (BEAKER) (test 43 mL/min/1.73 sq m ESTIMATED GFR IS NOT rfck=4502) ACCURATE CREATININE CLEARANCE IN PREDICTING GLOMERULAR FILTRATION RATE. ESTIMATED GFR IS NOT APPLICABLE FOR DIALYSIS PATIENTS. CBC W/PLT COUNT & AUTO [id number] 09:55:00 Test Item Value Reference Range Comments WHITE BLOOD CELL COUNT (BEAKER) (test nszf=347) 7.2 K/ L 3.5-10.5 RED BLOOD CELL COUNT (BEAKER) (test ttar=905) 3.54 M/ L 4.63-6.08 HEMOGLOBIN (BEAKER) (test wctq=459) 9.3 GM/DL 13.7-17.5 HEMATOCRIT (BEAKER) (test gwbd=474) 30.0 % 40.1-51.0 MEAN CORPUSCULAR VOLUME (BEAKER) (test nhku=676) 84.7 fL 79.0-92.2 MEAN CORPUSCULAR HEMOGLOBIN (BEAKER) (test 26.3 pg 25.7-32.2 ttss=139) MEAN CORPUSCULAR HEMOGLOBIN CONC (BEAKER) (test 31.0 GM/DL 32.3-36.5 roqm=692) RED CELL DISTRIBUTION WIDTH (BEAKER) (test 18.1 % 11.6-14.4 dryv=709) PLATELET COUNT (BEAKER) (test ohnb=930) 222 K/CU MM 150-450 MEAN PLATELET VOLUME (BEAKER) (test rfxr=674) 9.2 fL 9.4-12.4 NUCLEATED RED BLOOD CELLS (BEAKER) (test 0 /100 WBC 0-0 sytt=943) NEUTROPHILS RELATIVE PERCENT (BEAKER) (test 62 % odyt=468) LYMPHOCYTES RELATIVE PERCENT (BEAKER) (test 26 % opwe=810) MONOCYTES RELATIVE PERCENT (BEAKER) (test 8 % ryxu=969) EOSINOPHILS RELATIVE PERCENT (BEAKER) (test 3 % jysz=585) BASOPHILS RELATIVE PERCENT (BEAKER) (test 1 % cfpm=488) NEUTROPHILS ABSOLUTE COUNT (BEAKER) (test 4.43 K/ L 1.78-5.38 pqvm=286) LYMPHOCYTES ABSOLUTE COUNT (BEAKER) (test 1.85 K/ L 1.32-3.57 hqvo=949) MONOCYTES ABSOLUTE COUNT (BEAKER) (test 0.57 K/ L 0.30-0.82 nhwt=771) EOSINOPHILS ABSOLUTE COUNT (BEAKER) (test 0.24 K/ L 0.04-0.54 cooq=687) BASOPHILS ABSOLUTE COUNT (BEAKER) (test 0.04 K/ L 0.01-0.08 zdwz=114) IMMATURE GRANULOCYTES-RELATIVE PERCENT (BEAKER) 1 % 0-1 (test btjv=4769) BASIC METABOLIC [id number] 23:02:00 Test Item Value Reference Range Comments SODIUM (BEAKER) (test 137 meq/L 136-145 ilzb=220) POTASSIUM (BEAKER) (test 4.6 meq/L 3.5-5.1 fmyr=187) CHLORIDE (BEAKER) (test 109 meq/L 98-107 qctw=774) CO2 (BEAKER) (test 22 meq/L 22-29 yvnx=818) BLOOD UREA NITROGEN 38 mg/dL 7-21 (BEAKER) (test qvko=008) CREATININE (BEAKER) (test 1.91 mg/dL 0.57-1.25 grhh=987) GLUCOSE RANDOM (BEAKER) 157 mg/dL 70-105 (test phzn=372) CALCIUM (BEAKER) (test 8.9 mg/dL 8.4-10.2 cspw=101) EGFR (BEAKER) (test 35 mL/min/1.73 sq m ESTIMATED GFR IS NOT dqzn=0239) ACCURATE CREATININE CLEARANCE IN PREDICTING GLOMERULAR FILTRATION RATE. ESTIMATED GFR IS NOT APPLICABLE FOR DIALYSIS PATIENTS. POCT-GLUCOSE [id number] 21:56:00 Test Item Value Reference Range Comments POC-GLUCOSE METER (BEAKER) 161 mg/dL 70-110 TESTED AT [address] (test jius=3427) [place] [id number] POCT-GLUCOSE [id number] 13:45:00 Test Item Value Reference Range Comments POC-GLUCOSE METER (BEAKER) 164 mg/dL 70-110 TESTED AT [address] (test vhcb=0500) [place] [address] [id number] 10:16:00 Test Item Value Reference Range Comments POTASSIUM (BEAKER) (test 5.5 meq/L 3.5-5.1 Specimen slightly hemolyzed xzjv=544) CALCIUM, [id number] 07:07:00 Test Item Value Reference Range Comments CALCIUM IONIZED (BEAKER) (test pqmw=014) 1.05 mmol/L 1.12-1.27 PH, BLOOD (BEAKER) (test chft=4327) 7.31 [id number] 06:19:00 Test Item Value Reference Range Comments POTASSIUM (BEAKER) (test wvfy=963) 5.3 meq/L 3.5-5.1 POCT-GLUCOSE [id number] 06:17:00 Test Item Value Reference Range Comments POC-GLUCOSE METER (BEAKER) 177 mg/dL 70-110 TESTED AT [address] (test cvbr=0456) [place] [address] [id number] 05:44:00 Test Item Value Reference Range Comments PHOSPHORUS (BEAKER) (test hkgo=666) 4.0 mg/dL 2.3-4.7 [id number] 05:44:00 Test Item Value Reference Range Comments MAGNESIUM (BEAKER) (test mwum=484) 1.6 mg/dL 1.6-2.6 COMPREHENSIVE METABOLIC [id number] 05:44:00 Test Item Value Reference Range Comments TOTAL PROTEIN (BEAKER) 7.3 gm/dL 6.0-8.3 (test wzut=397) ALBUMIN (BEAKER) (test 3.8 g/dL 3.5-5.0 gqgy=0926) ALKALINE PHOSPHATASE 91 U/L 40-150 (BEAKER) (test brdy=209) BILIRUBIN TOTAL (BEAKER) 0.5 mg/dL 0.2-1.2 (test ecah=818) SODIUM (BEAKER) (test 139 meq/L 136-145 vpod=038) POTASSIUM (BEAKER) (test 5.4 meq/L 3.5-5.1 vgel=227) CHLORIDE (BEAKER) (test 110 meq/L 98-107 ahin=164) CO2 (BEAKER) (test 20 meq/L 22-29 vknp=545) BLOOD UREA NITROGEN 45 mg/dL 7-21 (BEAKER) (test mkaz=922) CREATININE (BEAKER) (test 2.45 mg/dL 0.57-1.25 bjnn=722) GLUCOSE RANDOM (BEAKER) 177 mg/dL 70-105 (test swgs=392) CALCIUM (BEAKER) (test 9.5 mg/dL 8.4-10.2 tryg=979) AST (SGOT) (BEAKER) (test 11 U/L 5-34 zqff=537) ALT (SGPT) (BEAKER) (test 9 U/L 6-55 vijm=524) EGFR (BEAKER) (test 26 mL/min/1.73 sq m ESTIMATED GFR IS NOT lvkx=1389) ACCURATE CREATININE CLEARANCE IN PREDICTING GLOMERULAR FILTRATION RATE. ESTIMATED GFR IS NOT APPLICABLE FOR DIALYSIS PATIENTS. B-TYPE NATRIURETIC FACTOR (BNP)2019-01-09 05:34:00 Test Item Value Reference Range Comments B-TYPE NATRIURETIC PEPTIDE (BEAKER) (test 248 pg/mL 0-100 gebm=191) CBC W/PLT COUNT & AUTO [id number] 05:14:00 Test Item Value Reference Range Comments WHITE BLOOD CELL COUNT (BEAKER) (test zzjj=975) 9.4 K/ L 3.5-10.5 RED BLOOD CELL COUNT (BEAKER) (test svmf=894) 3.79 M/ L 4.63-6.08 HEMOGLOBIN (BEAKER) (test idea=341) 9.8 GM/DL 13.7-17.5 HEMATOCRIT (BEAKER) (test hlyw=346) 32.0 % 40.1-51.0 MEAN CORPUSCULAR VOLUME (BEAKER) (test fwvq=535) 84.4 fL 79.0-92.2 MEAN CORPUSCULAR HEMOGLOBIN (BEAKER) (test 25.9 pg 25.7-32.2 eqqu=644) MEAN CORPUSCULAR HEMOGLOBIN CONC (BEAKER) (test 30.6 GM/DL 32.3-36.5 sthw=845) RED CELL DISTRIBUTION WIDTH (BEAKER) (test 17.5 % 11.6-14.4 bzen=016) PLATELET COUNT (BEAKER) (test owan=086) 232 K/CU MM 150-450 MEAN PLATELET VOLUME (BEAKER) (test piiv=733) 9.3 fL 9.4-12.4 NUCLEATED RED BLOOD CELLS (BEAKER) (test 0 /100 WBC 0-0 zvsk=728) NEUTROPHILS RELATIVE PERCENT (BEAKER) (test 78 % pxms=825) LYMPHOCYTES RELATIVE PERCENT (BEAKER) (test 13 % boni=501) MONOCYTES RELATIVE PERCENT (BEAKER) (test 4 % brqj=947) EOSINOPHILS RELATIVE PERCENT (BEAKER) (test 4 % wdrw=492) BASOPHILS RELATIVE PERCENT (BEAKER) (test 0 % gavk=567) NEUTROPHILS ABSOLUTE COUNT (BEAKER) (test 7.31 K/ L 1.78-5.38 gfqn=955) LYMPHOCYTES ABSOLUTE COUNT (BEAKER) (test 1.24 K/ L 1.32-3.57 efgi=690) MONOCYTES ABSOLUTE COUNT (BEAKER) (test 0.37 K/ L 0.30-0.82 vjil=166) EOSINOPHILS ABSOLUTE COUNT (BEAKER) (test 0.39 K/ L 0.04-0.54 tjfe=720) BASOPHILS ABSOLUTE COUNT (BEAKER) (test 0.04 K/ L 0.01-0.08 zziu=233) IMMATURE GRANULOCYTES-RELATIVE PERCENT (BEAKER) 0 % 0-1 (test lffi=9673) URINALYSIS W/ [id number] 00:47:00 Test Item Value Reference Range Comments COLOR (BEAKER) (test nlpe=246) Yellow CLARITY (BEAKER) (test hiyx=631) Cloudy SPECIFIC GRAVITY UA (BEAKER) (test fuhu=703) 1.014 1.001-1.035 PH UA (BEAKER) (test ofiu=347) 7.5 5.0-8.0 PROTEIN UA (BEAKER) (test pvsp=075) 50 mg/dL Negative GLUCOSE UA (BEAKER) (test ihdl=638) Negative Negative KETONES UA (BEAKER) (test ejdl=891) Negative Negative BILIRUBIN UA (BEAKER) (test okar=805) Negative Negative BLOOD UA (BEAKER) (test aatf=823) Small Negative NITRITE UA (BEAKER) (test bmdw=705) Negative Negative LEUKOCYTE ESTERASE UA (BEAKER) (test nxbc=424) Large Negative UROBILINOGEN UA (BEAKER) (test rwut=931) 0.2 mg/dL 0.2-1.0 RBC UA (BEAKER) (test ymni=290) 71 /HPF WBC UA (BEAKER) (test srsc=076) 1129 /HPF BACTERIA (BEAKER) (test lgjp=615) Many MUCUS (BEAKER) (test ubra=3920) Rare SQUAMOUS EPITHELIAL (BEAKER) (test vpel=554) 1 /HPF HYALINE CASTS (BEAKER) (test xtws=737) 19 /LPF SOURCE(BEAKER) (test ljqv=2433) Urine, Voided [id number] 00:34:00 Test Item Value Reference Range Comments POTASSIUM (BEAKER) (test kzzt=116) 5.4 meq/L 3.5-5.1 RAD, CHEST, 1 VIEW, NON [id number] 23:33:00Reason for exam:->edemaShould this be performed at [...] MDReport Verified Date/Time: 01/08/2019 23:33:47 Reading Location: [address] Consult Reading Room POCT-GLUCOSE [id number] 21:58:00 Test Item Value Reference Range Comments POC-GLUCOSE METER (BEAKER) 186 mg/dL 70-110 TESTED AT [facility] [address] (test teqh=6732) [facility] [id number] EOSINOPHIL SMEAR, [id number] 20:29:00 Test Item Value Reference Range Comments EOSINOPHIL SMEAR, URINE (BEAKER) (test No EOS seen No EOS seen vuqf=9988) BASIC METABOLIC [id number] 20:08:00 Test Item Value Reference Range Comments SODIUM (BEAKER) (test 134 meq/L 136-145 yiqn=274) POTASSIUM (BEAKER) (test 5.5 meq/L 3.5-5.1 fyxo=755) CHLORIDE (BEAKER) (test 108 meq/L 98-107 hida=974) CO2 (BEAKER) (test 19 meq/L 22-29 gtvc=580) BLOOD UREA NITROGEN 47 mg/dL 7-21 (BEAKER) (test vksd=817) CREATININE (BEAKER) (test 2.51 mg/dL 0.57-1.25 fytm=195) GLUCOSE RANDOM (BEAKER) 185 mg/dL 70-105 (test oeml=299) CALCIUM (BEAKER) (test 9.2 mg/dL 8.4-10.2 hrbu=830) EGFR (BEAKER) (test 25 mL/min/1.73 sq m ESTIMATED GFR IS NOT bzik=9649) ACCURATE CREATININE CLEARANCE IN PREDICTING GLOMERULAR FILTRATION RATE. ESTIMATED GFR IS NOT APPLICABLE FOR DIALYSIS PATIENTS. Thank you for drawing the blood. He requires strict monitoring of K in preparation for OR tomorrow.HEMOGLOBIN AND [id number] 19:51:00 Test Item Value Reference Range Comments HEMOGLOBIN (BEAKER) (test yirt=363) 8.0 GM/DL 13.7-17.5 HEMATOCRIT (BEAKER) (test oppd=084) 26.2 % 40.1-51.0 CREATININE, RANDOM [id number] 19:03:00 Test Item Value Reference Range Comments CREATININE URINE (BEAKER) (test hqzu=420) 89.1 mg/dL Reference Range: No NormalsPROTEIN, RANDOM [id number] 19:03:00 Test Item Value Reference Range Comments PROTEIN, URINE (BEAKER) (test hqgs=9791) 19 mg/dL 0-14 SODIUM, RANDOM [id number] 19:03:00 Test Item Value Reference Range Comments SODIUM URINE (BEAKER) (test swcz=813) 90 meq/L Reference Range: No NormalsPOCT-GLUCOSE [id number] 16:48:00 Test Item Value Reference Range Comments POC-GLUCOSE METER (BEAKER) 259 mg/dL 70-110 TESTED AT [place] [id number] [facility] (test ekgx=3687) [place] [address] B-TYPE NATRIURETIC FACTOR (BNP)2019-01-08 16:33:00 Test Item Value Reference Range Comments B-TYPE NATRIURETIC PEPTIDE (BEAKER) (test 219 pg/mL 0-100 uibf=019) BASIC METABOLIC [id number] 16:32:00 Test Item Value Reference Range Comments SODIUM (BEAKER) (test 134 meq/L 136-145 igzh=967) POTASSIUM (BEAKER) (test 5.7 meq/L 3.5-5.1 uraz=432) CHLORIDE (BEAKER) (test 108 meq/L 98-107 ypkn=096) CO2 (BEAKER) (test 19 meq/L 22-29 sqsx=054) BLOOD UREA NITROGEN 49 mg/dL 7-21 (BEAKER) (test ejtb=326) CREATININE (BEAKER) (test 2.68 mg/dL 0.57-1.25 gyri=817) GLUCOSE RANDOM (BEAKER) 217 mg/dL 70-105 (test gplf=681) CALCIUM (BEAKER) (test 9.3 mg/dL 8.4-10.2 buog=377) EGFR (BEAKER) (test 23 mL/min/1.73 sq m ESTIMATED GFR IS NOT nlxq=0121) ACCURATE CREATININE CLEARANCE IN PREDICTING GLOMERULAR FILTRATION RATE. ESTIMATED GFR IS NOT APPLICABLE FOR DIALYSIS PATIENTS. URIC [id number] 16:30:00 Test Item Value Reference Range Comments URIC ACID (BEAKER) (test yred=799) 8.3 mg/dL 2.6-7.2 POCT-GLUCOSE [id number] 10:00:00 Test Item Value Reference Range Comments POC-GLUCOSE METER (BEAKER) 206 mg/dL 70-110 TESTED AT [facility] [address] [facility] (test ounn=6693) [place] [id number] BASIC METABOLIC [id number] 09:58:00 Test Item Value Reference Range Comments SODIUM (BEAKER) (test 133 meq/L 136-145 rzke=667) POTASSIUM (BEAKER) (test 6.3 meq/L 3.5-5.1 elqm=112) CHLORIDE (BEAKER) (test 107 meq/L 98-107 esyh=008) CO2 (BEAKER) (test 20 meq/L 22-29 kxld=521) BLOOD UREA NITROGEN 49 mg/dL 7-21 (BEAKER) (test tcfo=377) CREATININE (BEAKER) (test 2.70 mg/dL 0.57-1.25 yaui=951) GLUCOSE RANDOM (BEAKER) 171 mg/dL 70-105 (test aupc=945) CALCIUM (BEAKER) (test 9.1 mg/dL 8.4-10.2 ubzf=602) EGFR (BEAKER) (test 23 mL/min/1.73 sq m ESTIMATED GFR IS NOT hszt=6629) ACCURATE CREATININE CLEARANCE IN PREDICTING GLOMERULAR FILTRATION RATE. ESTIMATED GFR IS NOT APPLICABLE FOR DIALYSIS PATIENTS. [id number] 09:33:00 Test Item Value Reference Range Comments PARTIAL THROMBOPLASTIN TIME (BEAKER) (test 44.8 seconds 22.5-36.0 innd=223) PROTHROMBIN TIME/[id number] 09:32:00 Test Item Value Reference Range Comments PROTIME (BEAKER) (test mklq=712) 17.4 seconds 11.7-14.7 INR (BEAKER) (test ewpj=083) 1.4 <=5.9 RECOMMENDED COUMADIN/WARFARIN INR THERAPY RANGESSTANDARD DOSE: 2.0 - 3.0 Includes: PROPHYLAXIS forvenous thrombosis, systemic embolization; TREATMENT for venous thrombosis and/or pulmonary embolus.HIGH RISK: Target INR is 2.5-3.5 for patients with mechanical heart valves.HEMOGLOBIN AND [id number] 09 :24:00 Test Item Value Reference Range Comments HEMOGLOBIN (BEAKER) (test krjz=719) 8.0 GM/DL 13.7-17.5 HEMATOCRIT (BEAKER) (test qbde=740) 27.2 % 40.1-51.0 [id number] 11:10:00Medical Cytology Report Case: [id number] Authorizing Provider: Gianna Peter MD Collected: 11/28/2018 1648 Ordering Location: [address] Received: 11/28/2018 1658 Service Pathologist: Chelsea Curran MD Specimen: Kidney , Right RIGHT KIDNEY MASS, FNA AND CORE BIOPSY BY RADIOLOGIST (FILOMENA) (DIRECT SMEARS AND CELL BLOCK OF ASPIRATE): - FEW ATYPICAL CELLS, COMPATIBLE WITH RENAL CELL CARCINOMA (see comment) Signing Pathologist Direct Phone Line: [phone] The smears show few scattered atypical cells [...] cell carcinoma. Clinical and radiologic correlation is recommended.90679, 22709, 03728 x 2; 25989; 06371 6 cm right kidney massRIGHT KIDNEYMASS FNA AND CORE BIOPSYPrepared 6 direct smear slides and cell block(A3) using collodion bag from material collected in RPMI Core biopsy collected in formalin contained two white/red fragments measuring 0.8 cm each; one 0.4 cm red fragment; one mostly white 0.9 cm fragment, and three red ragged fragments measuring 0.2 cm each, submitted entirely in A2.Collected: [id number]: [id number] FEW CELLS SUSPICIOUS FOR RENAL CELL CARCINOMA (5:17PM, 11/28/2018, )The interpretation of this case included the use of immunohistochemistry or special stains. PAX-8 and CAM5.2Immunohistochemistry technical testing was performed at [facility], Pathology Laboratory where it was [...] qualified to perform high complexity clinical laboratory testing.[facility], Department of Pathology, [address] [place] [address], [facility] of [facility], [address] [place] [address], [facility], [facility], [address] [place] [address], XIAK-GLUCOSE [id number] 17:10:00 Test Item Value Reference Range Comments POC-GLUCOSE METER (BEAKER) 153 mg/dL 70-110 TESTED AT [address] (test wcoq=1871) [place] [address] POCT-GLUCOSE [id number] 11:57:00 Test Item Value Reference Range Comments POC-GLUCOSE METER (BEAKER) 128 mg/dL 70-110 TESTED AT [address] (test ceea=5021) [place] [address] POCT-GLUCOSE [id number] 07:52:00 Test Item Value Reference Range Comments POC-GLUCOSE METER (BEAKER) 121 mg/dL 70-110 TESTED AT [address] (test lwan=5464) [place] [address] POCT-GLUCOSE [id number] 20:55:00 Test Item Value Reference Range Comments POC-GLUCOSE METER (BEAKER) 134 mg/dL 70-110 TESTED AT [address] (test rera=9766) [place] [address] POCT-GLUCOSE [id number] 18:19:00 Test Item Value Reference Range Comments POC-GLUCOSE METER (BEAKER) 137 mg/dL 70-110 TESTED AT [address] (test horv=0509) [place] [address] POCT-GLUCOSE [id number] 11:33:00 Test Item Value Reference Range Comments POC-GLUCOSE METER (BEAKER) 188 mg/dL 70-110 TESTED AT [address] (test ysar=7728) [place] [address] POCT-GLUCOSE [id number] 07:44:00 Test Item Value Reference Range Comments POC-GLUCOSE METER (BEAKER) 143 mg/dL 70-110 TESTED AT [address] (test qygt=7701) [place] [address] POCT-GLUCOSE [id number] 21:19:00 Test Item Value Reference Range Comments POC-GLUCOSE METER (BEAKER) 156 mg/dL 70-110 TESTED AT [facility] [address] [facility] (test tbxy=6495) [facility] [address] POCT-GLUCOSE [id number] 19:08:00 Test Item Value Reference Range Comments POC-GLUCOSE METER (BEAKER) 175 mg/dL 70-110 TESTED AT [facility] [address] [facility] (test bohv=7041) [facility] [address] [id number] 15:34:00 Test Item Value Reference Range Comments PHOSPHORUS (BEAKER) (test hvwk=775) 2.3 mg/dL 2.3-4.7 [id number] 15:34:00 Test Item Value Reference Range Comments MAGNESIUM (BEAKER) (test eone=963) 1.2 mg/dL 1.6-2.6 BASIC METABOLIC [id number] 15:34:00 Test Item Value Reference Range Comments SODIUM (BEAKER) (test 139 meq/L 136-145 fwzl=052) POTASSIUM (BEAKER) (test 3.8 meq/L 3.5-5.1 akrg=825) CHLORIDE (BEAKER) (test 110 meq/L 98-107 zasw=048) CO2 (BEAKER) (test 20 meq/L 22-29 zkwu=837) BLOOD UREA NITROGEN 9 mg/dL 7-21 (BEAKER) (test skvj=394) CREATININE (BEAKER) (test 1.21 mg/dL 0.57-1.25 ugfj=650) GLUCOSE RANDOM (BEAKER) 149 mg/dL 70-105 (test dion=942) CALCIUM (BEAKER) (test 8.8 mg/dL 8.4-10.2 ncvp=304) EGFR (BEAKER) (test 58 mL/min/1.73 sq m ESTIMATED GFR IS NOT rzbm=8849) ACCURATE CREATININE CLEARANCE IN PREDICTING GLOMERULAR FILTRATION RATE. ESTIMATED GFR IS NOT APPLICABLE FOR DIALYSIS PATIENTS. HEMOGLOBIN AND [id number] 15:16:00 Test Item Value Reference Range Comments HEMOGLOBIN (BEAKER) (test ybiv=744) 8.9 GM/DL 13.7-17.5 HEMATOCRIT (BEAKER) (test bsle=484) 28.9 % 40.1-51.0 POCT-GLUCOSE [id number] 12:46:00 Test Item Value Reference Range Comments POC-GLUCOSE METER (BEAKER) 195 mg/dL 70-110 TESTED AT [address] (test dhnk=7037) [place] [address] POCT-GLUCOSE [id number] 08:26:00 Test Item Value Reference Range Comments POC-GLUCOSE METER (BEAKER) 113 mg/dL 70-110 TESTED AT [address] (test vyjp=0803) [place] [address] HEMOGLOBIN AND [id number] 23:04:00 Test Item Value Reference Range Comments HEMOGLOBIN (BEAKER) (test nlce=185) 9.2 GM/DL 13.7-17.5 HEMATOCRIT (BEAKER) (test fjsn=344) 30.2 % 40.1-51.0 POCT-GLUCOSE [id number] 21:02:00 Test Item Value Reference Range Comments POC-GLUCOSE METER (BEAKER) 106 mg/dL 70-110 TESTED AT [address] (test mdtp=4393) [place] [address] POCT-GLUCOSE [id number] 18:35:00 Test Item Value Reference Range Comments POC-GLUCOSE METER (BEAKER) 128 mg/dL 70-110 TESTED AT [address] (test bshi=3541) [place] [address] U/S, BIOPSY, RENAL (KIDNEY)2018-11-28 17:54:00Reason for exam:->R sided kidney mass, biopsy neededFINAL REPORT Ultrasound guided fine-needle aspiration and core biopsy dated 11/28/2018 Procedure: Fine- needle aspiration and core biopsy of the right renal mass Pre-procedure diagnosis: Right renal mass Post-procedure diagnosis: Right renal mass Radiologist: Lurdes Fernandes MD Contracting Executive: None Sedation: Moderate sedation was administered. 1.5 [...] Fernandes Verified Date/Time: 11/28 17:54:55 Reading Location: [address] Ultrasound Reading Room U/S, ASPIRATION/[id number] 17:54:00Reason for exam:->R sided kidney mass , biopsy neededFINAL REPORT Ultrasound guided fine- needle aspiration and core biopsy dated 11/28/2018 Procedure: Fine-needle aspiration and core biopsy of the right renal mass Pre-procedure diagnosis: Right renal mass Post-procedure diagnosis: Right renal mass Radiologist: uLrdes Fernandes MD Contracting Executive: None Sedation: Moderate sedation was administered. 1.5 [...] right renalmass. Signed: Lurdes Fernandesort Verified Date/Time: 11/28/2018 17:54: 55 Reading Location: [address] Ultrasound Reading Room POCT-GLUCOSE [id number] 12:01:00 Test Item Value Reference Range Comments POC-GLUCOSE METER (BEAKER) 133 mg/dL 70-110 [address] [facility] [address] POCT-GLUCOSE [id number] 08:12:00 Test Item Value Reference Range Comments POC-GLUCOSE METER (BEAKER) 139 mg/dL 70-110 TESTED AT [facility] [address] [facility] (test gzrm=0446) [facility] [address] CALCIUM, [id number] 07:20:00 Test Item Value Reference Range Comments CALCIUM IONIZED (BEAKER) (test lbjy=669) 1.10 mmol/L 1.12-1.27 PH, BLOOD (BEAKER) (test gqzt=2361) 7.40 BLOOD [id number] 07:01:00 Test Item Value Reference Range Comments CULTURE (BEAKER) (test ypux=7465) No growth in 5 days [id number] 06:10:00 Test Item Value Reference Range Comments PHOSPHORUS (BEAKER) (test wkav=529) 2.0 mg/dL 2.3-4.7 [id number] 06:10:00 Test Item Value Reference Range Comments MAGNESIUM (BEAKER) (test mdgp=924) 1.6 mg/dL 1.6-2.6 BASIC METABOLIC [id number] 06:10:00 Test Item Value Reference Range Comments SODIUM (BEAKER) (test 140 meq/L 136-145 kozk=733) POTASSIUM (BEAKER) (test 3.8 meq/L 3.5-5.1 hxrz=774) CHLORIDE (BEAKER) (test 112 meq/L 98-107 efmn=566) CO2 (BEAKER) (test 19 meq/L 22-29 hcuo=665) BLOOD UREA NITROGEN 9 mg/dL 7-21 (BEAKER) (test csxj=813) CREATININE (BEAKER) (test 1.08 mg/dL 0.57-1.25 frdu=499) GLUCOSE RANDOM (BEAKER) 120 mg/dL 70-105 (test nusn=918) CALCIUM (BEAKER) (test 8.5 mg/dL 8.4-10.2 ueav=643) EGFR (BEAKER) (test 67 mL/min/1.73 sq m ESTIMATED GFR IS NOT dhme=3058) ACCURATE CREATININE CLEARANCE IN PREDICTING GLOMERULAR FILTRATION RATE. ESTIMATED GFR IS NOT APPLICABLE FOR DIALYSIS PATIENTS. CBC W/PLT COUNT & AUTO [id number] 05:33:00 Test Item Value Reference Range Comments WHITE BLOOD CELL COUNT (BEAKER) (test wswd=078) 8.2 K/ L 3.5-10.5 RED BLOOD CELL COUNT (BEAKER) (test cotx=238) 3.68 M/ L 4.63-6.08 HEMOGLOBIN (BEAKER) (test ctdd=431) 9.4 GM/DL 13.7-17.5 HEMATOCRIT (BEAKER) (test ornv=427) 31.1 % 40.1-51.0 MEAN CORPUSCULAR VOLUME (BEAKER) (test fwzh=597) 84.5 fL 79.0-92.2 MEAN CORPUSCULAR HEMOGLOBIN (BEAKER) (test 25.5 pg 25.7-32.2 wdiv=492) MEAN CORPUSCULAR HEMOGLOBIN CONC (BEAKER) (test 30.2 GM/DL 32.3-36.5 zfkv=132) RED CELL DISTRIBUTION WIDTH (BEAKER) (test 22.4 % 11.6-14.4 sntl=070) PLATELET COUNT (BEAKER) (test pzea=429) 274 K/CU MM 150-450 MEAN PLATELET VOLUME (BEAKER) (test aqte=144) 9.9 fL 9.4-12.4 NUCLEATED RED BLOOD CELLS (BEAKER) (test 0 /100 WBC 0-0 kett=538) NEUTROPHILS RELATIVE PERCENT (BEAKER) (test 59 % bicx=398) LYMPHOCYTES RELATIVE PERCENT (BEAKER) (test 28 % okxh=369) MONOCYTES RELATIVE PERCENT (BEAKER) (test 6 % pzxu=491) EOSINOPHILS RELATIVE PERCENT (BEAKER) (test 5 % iier=294) BASOPHILS RELATIVE PERCENT (BEAKER) (test 1 % bktw=922) NEUTROPHILS ABSOLUTE COUNT (BEAKER) (test 4.80 K/ L 1.78-5.38 bpwp=386) LYMPHOCYTES ABSOLUTE COUNT (BEAKER) (test 2.30 K/ L 1.32-3.57 iajv=341) MONOCYTES ABSOLUTE COUNT (BEAKER) (test 0.52 K/ L 0.30-0.82 gspv=764) EOSINOPHILS ABSOLUTE COUNT (BEAKER) (test 0.39 K/ L 0.04-0.54 cekj=129) BASOPHILS ABSOLUTE COUNT (BEAKER) (test 0.05 K/ L 0.01-0.08 hdbl=218) IMMATURE GRANULOCYTES-RELATIVE PERCENT (BEAKER) 1 % 0-1 (test yjmw=7738) POCT-GLUCOSE [id number] 22:53:00 Test Item Value Reference Range Comments POC-GLUCOSE METER (BEAKER) 105 mg/dL 70-110 TESTED AT [address] (test lktg=3895) [facility] [address] BLOOD [id number] 19:01:00 Test Item Value Reference Range Comments CULTURE (BEAKER) (test qihg=3808) No growth in 5 days POCT-GLUCOSE [id number] 16:46:00 Test Item Value Reference Range Comments POC-GLUCOSE METER (BEAKER) 120 mg/dL 70-110 TESTED AT [address] (test detd=9293) [facility] [address] POCT-GLUCOSE [id number] 12:49:00 Test Item Value Reference Range Comments POC-GLUCOSE METER (BEAKER) 140 mg/dL 70-110 TESTED AT [address] (test yxdo=0205) [facility] [address] POCT-GLUCOSE [id number] 08:33:00 Test Item Value Reference Range Comments POC-GLUCOSE METER (BEAKER) 138 mg/dL 70-110 TESTED AT [address] (test czbv=4735) [facility] [address] CALCIUM, [id number] 07:28:00 Test Item Value Reference Range Comments CALCIUM IONIZED (BEAKER) (test dlym=643) 1.10 mmol/L 1.12-1.27 PH, BLOOD (BEAKER) (test favt=5299) 7.39 [id number] 06:54:00 Test Item Value Reference Range Comments PHOSPHORUS (BEAKER) (test vovj=481) 2.3 mg/dL 2.3-4.7 [id number] 06:54:00 Test Item Value Reference Range Comments MAGNESIUM (BEAKER) (test iakk=633) 1.7 mg/dL 1.6-2.6 BASIC METABOLIC [id number] 06:54:00 Test Item Value Reference Range Comments SODIUM (BEAKER) (test 140 meq/L 136-145 eetu=737) POTASSIUM (BEAKER) (test 3.7 meq/L 3.5-5.1 pzyl=881) CHLORIDE (BEAKER) (test 112 meq/L 98-107 iixx=072) CO2 (BEAKER) (test 19 meq/L 22-29 jhdw=456) BLOOD UREA NITROGEN 10 mg/dL 7-21 (BEAKER) (test vxrj=640) CREATININE (BEAKER) (test 1.05 mg/dL 0.57-1.25 cwqo=253) GLUCOSE RANDOM (BEAKER) 112 mg/dL 70-105 (test dulg=791) CALCIUM (BEAKER) (test 8.6 mg/dL 8.4-10.2 mypv=699) EGFR (BEAKER) (test 69 mL/min/1.73 sq m ESTIMATED GFR IS NOT idwg=1541) ACCURATE CREATININE CLEARANCE IN PREDICTING GLOMERULAR FILTRATION RATE. ESTIMATED GFR IS NOT APPLICABLE FOR DIALYSIS PATIENTS. CBC W/PLT COUNT & AUTO [id number] 06:50:00 Test Item Value Reference Range Comments WHITE BLOOD CELL COUNT (BEAKER) (test tshc=983) 8.4 K/ L 3.5-10.5 RED BLOOD CELL COUNT (BEAKER) (test yhij=151) 3.42 M/ L 4.63-6.08 HEMOGLOBIN (BEAKER) (test bwqj=459) 8.7 GM/DL 13.7-17.5 HEMATOCRIT (BEAKER) (test cwjf=043) 28.7 % 40.1-51.0 MEAN CORPUSCULAR VOLUME (BEAKER) (test zedj=795) 83.9 fL 79.0-92.2 MEAN CORPUSCULAR HEMOGLOBIN (BEAKER) (test 25.4 pg 25.7-32.2 dgyj=741) MEAN CORPUSCULAR HEMOGLOBIN CONC (BEAKER) (test 30.3 GM/DL 32.3-36.5 xibl=502) RED CELL DISTRIBUTION WIDTH (BEAKER) (test 21.6 % 11.6-14.4 jfdz=376) PLATELET COUNT (BEAKER) (test bhwg=421) 234 K/CU MM 150-450 MEAN PLATELET VOLUME (BEAKER) (test mgzk=157) 10.1 fL 9.4-12.4 NUCLEATED RED BLOOD CELLS (BEAKER) (test 0 /100 WBC 0-0 upfi=664) NEUTROPHILS RELATIVE PERCENT (BEAKER) (test 62 % ayrf=617) LYMPHOCYTES RELATIVE PERCENT (BEAKER) (test 25 % mezw=656) MONOCYTES RELATIVE PERCENT (BEAKER) (test 6 % juuy=680) EOSINOPHILS RELATIVE PERCENT (BEAKER) (test 6 % wyqz=751) BASOPHILS RELATIVE PERCENT (BEAKER) (test 1 % mrwk=322) NEUTROPHILS ABSOLUTE COUNT (BEAKER) (test 5.21 K/ L 1.78-5.38 rtaa=354) LYMPHOCYTES ABSOLUTE COUNT (BEAKER) (test 2.11 K/ L 1.32-3.57 kgyu=809) MONOCYTES ABSOLUTE COUNT (BEAKER) (test 0.49 K/ L 0.30-0.82 gnig=953) EOSINOPHILS ABSOLUTE COUNT (BEAKER) (test 0.46 K/ L 0.04-0.54 eece=834) BASOPHILS ABSOLUTE COUNT (BEAKER) (test 0.06 K/ L 0.01-0.08 wjvc=203) IMMATURE GRANULOCYTES-RELATIVE PERCENT (BEAKER) 1 % 0-1 (test xgbb=8312) POCT-GLUCOSE [id number] 21:25:00 Test Item Value Reference Range Comments POC-GLUCOSE METER (BEAKER) 118 mg/dL 70-110 TESTED AT [address] (test ekby=2994) [place] [address] POCT-GLUCOSE [id number] 17:54:00 Test Item Value Reference Range Comments POC-GLUCOSE METER (BEAKER) 138 mg/dL 70-110 TESTED AT [address] (test jvfq=6037) [place] [address] [id number] 11:52:00 Test Item Value Reference Range Comments PHOSPHORUS (BEAKER) (test ungk=184) 1.5 mg/dL 2.3-4.7 [id number] 11:42:00 Test Item Value Reference Range Comments MAGNESIUM (BEAKER) (test ucbx=842) 1.7 mg/dL 1.6-2.6 BASIC METABOLIC [id number] 11:42:00 Test Item Value Reference Range Comments SODIUM (BEAKER) (test 141 meq/L 136-145 lzci=197) POTASSIUM (BEAKER) (test 3.6 meq/L 3.5-5.1 ihjw=904) CHLORIDE (BEAKER) (test 114 meq/L 98-107 ewty=625) CO2 (BEAKER) (test 20 meq/L 22-29 gksb=077) BLOOD UREA NITROGEN 13 mg/dL 7-21 (BEAKER) (test qdlf=157) CREATININE (BEAKER) (test 1.27 mg/dL 0.57-1.25 yvba=286) GLUCOSE RANDOM (BEAKER) 135 mg/dL 70-105 (test pjnv=161) CALCIUM (BEAKER) (test 8.7 mg/dL 8.4-10.2 eele=040) EGFR (BEAKER) (test 55 mL/min/1.73 sq m ESTIMATED GFR IS NOT wqur=8515) ACCURATE CREATININE CLEARANCE IN PREDICTING GLOMERULAR FILTRATION RATE. ESTIMATED GFR IS NOT APPLICABLE FOR DIALYSIS PATIENTS. PT/[id number] 11:41:00 Test Item Value Reference Range Comments PROTIME (BEAKER) (test notw=010) 16.7 seconds 11.7-14.7 INR (BEAKER) (test xovh=701) 1.3 <=5.9 PARTIAL THROMBOPLASTIN TIME (BEAKER) (test 48.5 seconds 22.5-36.0 ttxh=467) RECOMMENDED COUMADIN/WARFARIN INR THERAPY RANGESSTANDARD DOSE: 2.0 - 3.0 Includes: PROPHYLAXIS forvenous thrombosis, systemic embolization; TREATMENT for venous thrombosis and/or pulmonary embolus.HIGH RISK: Target INR is 2.5-3.5 for patients with mechanical heart valves.MRSA [id number] 11:31:00 Test Item Value Reference Range Comments CULTURE (BEAKER) (test gfvh=2733) No MRSA isolated CBC (HEMOGRAM ONLY)2018-11-26 11:28:00 Test Item Value Reference Range Comments WHITE BLOOD CELL COUNT (BEAKER) (test ehyl=868) 7.1 K/ L 3.5-10.5 RED BLOOD CELL COUNT (BEAKER) (test ugpp=273) 3.36 M/ L 4.63-6.08 HEMOGLOBIN (BEAKER) (test rxtf=439) 8.5 GM/DL 13.7-17.5 HEMATOCRIT (BEAKER) (test qlmd=093) 28.4 % 40.1-51.0 MEAN CORPUSCULAR VOLUME (BEAKER) (test pnpc=384) 84.5 fL 79.0-92.2 MEAN CORPUSCULAR HEMOGLOBIN (BEAKER) (test 25.3 pg 25.7-32.2 gshu=122) MEAN CORPUSCULAR HEMOGLOBIN CONC (BEAKER) (test 29.9 GM/DL 32.3-36.5 fieq=045) RED CELL DISTRIBUTION WIDTH (BEAKER) (test 21.6 % 11.6-14.4 weny=659) PLATELET COUNT (BEAKER) (test uhul=511) 214 K/CU MM 150-450 MEAN PLATELET VOLUME (BEAKER) (test ixic=655) 9.6 fL 9.4-12.4 NUCLEATED RED BLOOD CELLS (BEAKER) (test 0 /100 WBC 0-0 eopb=546) POCT-GLUCOSE [id number] 07:38:00 Test Item Value Reference Range Comments POC-GLUCOSE METER (BEAKER) 174 mg/dL 70-110 TESTED AT [address] (test vesm=0526) [place] [address] POCT-GLUCOSE [id number] 20:27:00 Test Item Value Reference Range Comments POC-GLUCOSE METER (BEAKER) 199 mg/dL 70-110 TESTED AT [address] (test zmio=0094) [place] [address] POCT-GLUCOSE [id number] 17:55:00 Test Item Value Reference Range Comments POC-GLUCOSE METER (BEAKER) 196 mg/dL 70-110 TESTED AT [address] (test jfgt=9708) [place] [address] POCT-GLUCOSE [id number] 11:56:00 Test Item Value Reference Range Comments POC-GLUCOSE METER (BEAKER) 209 mg/dL 70-110 TESTED AT [address] (test zyzo=1645) [place] [address] KIDNEY IMAGING, SINGLE, FLOW/[id number] 11:35:00FINAL REPORT PROCEDURE: Functional RENAL SCAN, flow and function CPT CODE: 88100 INDICATION: R rcca, eval differential renal function, [...] Verified Date/Time: 11/25/2018 11:35:45 Reading Location : [address] Reading Room [id number] 10:00:00 Test Item Value Reference Range Comments PHOSPHORUS (BEAKER) (test mxhg=482) 1.7 mg/dL 2.3-4.7 [id number] 10:00:00 Test Item Value Reference Range Comments MAGNESIUM (BEAKER) (test rvwh=821) 2.0 mg/dL 1.6-2.6 BASIC METABOLIC [id number] 10:00:00 Test Item Value Reference Range Comments SODIUM (BEAKER) (test 141 meq/L 136-145 mdna=997) POTASSIUM (BEAKER) (test 3.5 meq/L 3.5-5.1 zyoh=164) CHLORIDE (BEAKER) (test 113 meq/L 98-107 oejj=687) CO2 (BEAKER) (test 22 meq/L 22-29 ajjp=086) BLOOD UREA NITROGEN 20 mg/dL 7-21 (BEAKER) (test djkc=882) CREATININE (BEAKER) (test 1.50 mg/dL 0.57-1.25 rmdx=808) GLUCOSE RANDOM (BEAKER) 164 mg/dL 70-105 (test tked=157) CALCIUM (BEAKER) (test 8.9 mg/dL 8.4-10.2 ovao=009) EGFR (BEAKER) (test 46 mL/min/1.73 sq m ESTIMATED GFR IS NOT dlxo=8582) ACCURATE CREATININE CLEARANCE IN PREDICTING GLOMERULAR FILTRATION RATE. ESTIMATED GFR IS NOT APPLICABLE FOR DIALYSIS PATIENTS. CBC W/PLT COUNT & AUTO [id number] 10:00:00 Test Item Value Reference Range Comments WHITE BLOOD CELL COUNT (BEAKER) (test ysqg=260) 7.6 K/ L 3.5-10.5 RED BLOOD CELL COUNT (BEAKER) (test nclm=639) 3.58 M/ L 4.63-6.08 HEMOGLOBIN (BEAKER) (test ahja=622) 9.0 GM/DL 13.7-17.5 HEMATOCRIT (BEAKER) (test tfds=867) 30.4 % 40.1-51.0 MEAN CORPUSCULAR VOLUME (BEAKER) (test fgbe=680) 84.9 fL 79.0-92.2 MEAN CORPUSCULAR HEMOGLOBIN (BEAKER) (test 25.1 pg 25.7-32.2 plzw=264) MEAN CORPUSCULAR HEMOGLOBIN CONC (BEAKER) (test 29.6 GM/DL 32.3-36.5 pjig=964) RED CELL DISTRIBUTION WIDTH (BEAKER) (test 22.0 % 11.6-14.4 jgyy=975) PLATELET COUNT (BEAKER) (test fmrk=196) 252 K/CU MM 150-450 MEAN PLATELET VOLUME (BEAKER) (test updg=726) 10.5 fL 9.4-12.4 NUCLEATED RED BLOOD CELLS (BEAKER) (test 0 /100 WBC 0-0 acld=242) NEUTROPHILS RELATIVE PERCENT (BEAKER) (test 61 % kenr=628) LYMPHOCYTES RELATIVE PERCENT (BEAKER) (test 25 % dofd=285) MONOCYTES RELATIVE PERCENT (BEAKER) (test 6 % tgvv=140) EOSINOPHILS RELATIVE PERCENT (BEAKER) (test 7 % wdbo=554) BASOPHILS RELATIVE PERCENT (BEAKER) (test 1 % stvb=608) NEUTROPHILS ABSOLUTE COUNT (BEAKER) (test 4.69 K/ L 1.78-5.38 lqqg=333) LYMPHOCYTES ABSOLUTE COUNT (BEAKER) (test 1.88 K/ L 1.32-3.57 uyxe=451) MONOCYTES ABSOLUTE COUNT (BEAKER) (test 0.45 K/ L 0.30-0.82 bqpt=421) EOSINOPHILS ABSOLUTE COUNT (BEAKER) (test 0.55 K/ L 0.04-0.54 mezc=131) BASOPHILS ABSOLUTE COUNT (BEAKER) (test 0.05 K/ L 0.01-0.08 ktrg=754) IMMATURE GRANULOCYTES-RELATIVE PERCENT (BEAKER) 0 % 0-1 (test pumu=8803) CALCIUM, [id number] 09:39:00 Test Item Value Reference Range Comments CALCIUM IONIZED (BEAKER) (test rvyh=045) 1.12 mmol/L 1.12-1.27 PH, BLOOD (BEAKER) (test xybb=4928) 7.33 POCT-GLUCOSE [id number] 07:56:00 Test Item Value Reference Range Comments POC-GLUCOSE METER (BEAKER) 186 mg/dL 70-110 TESTED AT [address] (test oewa=4060) [place] [id number] POCT-GLUCOSE [id number] 20:37:00 Test Item Value Reference Range Comments POC-GLUCOSE METER (BEAKER) 225 mg/dL 70-110 TESTED AT [address] (test fwvo=9137) [place] [id number] POCT-GLUCOSE [id number] 18:21:00 Test Item Value Reference Range Comments POC-GLUCOSE METER (BEAKER) 234 mg/dL 70-110 TESTED AT [address] (test dlgp=4574) [place] [address] PUL PERF IMAGING, PARTIC, [id number] 12:25:00FINAL REPORT PROCEDURE: V/Q LUNG SCAN CPT CODE: 40941 INDICATION: Acute chest pain PROTOCOL: 10.7 mCi [...] Verified Date/Time: 11/24/2018 12: 25:50 Reading Location: [address] [place] [address] Reading Room POCT- GLUCOSE [id number] 11:33:00 Test Item Value Reference Range Comments POC-GLUCOSE METER (BEAKER) 220 mg/dL 70-110 TESTED AT [facility] [address] [facility] (test yvvr=4445) [facility] [address] CELIAC DISEASE [id number] 09:20:00 Test Item Value Reference Range Comments SCAN RESULT (test [id number]=[id number]) CELIAC DISEASE PROFILE Refer to Celiac Disease AUTOVERIFICATION (QUEST) (test Panel results. ddju=[id number]) POCT-GLUCOSE [id number] 07:46:00 Test Item Value Reference Range Comments POC-GLUCOSE METER (BEAKER) 162 mg/dL 70-110 TESTED AT [facility] [address] [facility] (test aoyr=4029) [facility] [id number] CALCIUM, [id number] 07:34:00 Test Item Value Reference Range Comments CALCIUM IONIZED (BEAKER) (test oyux=375) 1.09 mmol/L 1.12-1.27 PH, BLOOD (BEAKER) (test abkx=4799) 7.44 [id number] 06:31:00 Test Item Value Reference Range Comments PHOSPHORUS (BEAKER) (test epbm=863) 2.6 mg/dL 2.3-4.7 [id number] 06:31:00 Test Item Value Reference Range Comments MAGNESIUM (BEAKER) (test zqks=823) 1.8 mg/dL 1.6-2.6 COMPREHENSIVE METABOLIC [id number] 06:31:00 Test Item Value Reference Range Comments TOTAL PROTEIN (BEAKER) 5.7 gm/dL 6.0-8.3 (test jfgw=077) ALBUMIN (BEAKER) (test 3.0 g/dL 3.5-5.0 mnac=7812) ALKALINE PHOSPHATASE 50 U/L 40-150 (BEAKER) (test qjnd=537) BILIRUBIN TOTAL (BEAKER) 0.4 mg/dL 0.2-1.2 (test fzcl=467) SODIUM (BEAKER) (test 141 meq/L 136-145 broe=757) POTASSIUM (BEAKER) (test 3.0 meq/L 3.5-5.1 qzii=917) CHLORIDE (BEAKER) (test 112 meq/L 98-107 birw=669) CO2 (BEAKER) (test 19 meq/L 22-29 luzf=424) BLOOD UREA NITROGEN 28 mg/dL 7-21 (BEAKER) (test amoc=783) CREATININE (BEAKER) (test 1.65 mg/dL 0.57-1.25 iucd=430) GLUCOSE RANDOM (BEAKER) 132 mg/dL 70-105 (test alst=129) CALCIUM (BEAKER) (test 8.5 mg/dL 8.4-10.2 tsqr=859) AST (SGOT) (BEAKER) (test 8 U/L 5-34 unpu=955) ALT (SGPT) (BEAKER) (test 8 U/L 6-55 teoy=816) EGFR (BEAKER) (test 41 mL/min/1.73 sq m ESTIMATED GFR IS NOT vebp=3674) ACCURATE CREATININE CLEARANCE IN PREDICTING GLOMERULAR FILTRATION RATE. ESTIMATED GFR IS NOT APPLICABLE FOR DIALYSIS PATIENTS. VANCOMYCIN LEVEL, [id number] 06:19:00 Test Item Value Reference Range Comments VANCOMYCIN TROUGH (BEAKER) (test ytfo=886) 17.7 ug/mL 10.0-20.0 Hold dose if trough >20 mcg/mlCBC W/PLT COUNT & AUTO [id number] 06:10:00 Test Item Value Reference Range Comments WHITE BLOOD CELL COUNT (BEAKER) (test trub=047) 12.2 K/ L 3.5-10.5 RED BLOOD CELL COUNT (BEAKER) (test nggo=890) 3.03 M/ L 4.63-6.08 HEMOGLOBIN (BEAKER) (test hyai=985) 7.8 GM/DL 13.7-17.5 HEMATOCRIT (BEAKER) (test lggo=038) 25.8 % 40.1-51.0 MEAN CORPUSCULAR VOLUME (BEAKER) (test injp=904) 85.1 fL 79.0-92.2 MEAN CORPUSCULAR HEMOGLOBIN (BEAKER) (test 25.7 pg 25.7-32.2 zczk=223) MEAN CORPUSCULAR HEMOGLOBIN CONC (BEAKER) (test 30.2 GM/DL 32.3-36.5 ckyk=377) RED CELL DISTRIBUTION WIDTH (BEAKER) (test 22.2 % 11.6-14.4 hpik=438) PLATELET COUNT (BEAKER) (test mjlv=702) 204 K/CU MM 150-450 MEAN PLATELET VOLUME (BEAKER) (test movf=650) 10.5 fL 9.4-12.4 NUCLEATED RED BLOOD CELLS (BEAKER) (test 0 /100 WBC 0-0 sdzq=583) NEUTROPHILS RELATIVE PERCENT (BEAKER) (test 74 % ylag=755) LYMPHOCYTES RELATIVE PERCENT (BEAKER) (test 15 % iwll=686) MONOCYTES RELATIVE PERCENT (BEAKER) (test 6 % sgzb=389) EOSINOPHILS RELATIVE PERCENT (BEAKER) (test 5 % loqr=441) BASOPHILS RELATIVE PERCENT (BEAKER) (test 0 % qgjf=141) NEUTROPHILS ABSOLUTE COUNT (BEAKER) (test 9.02 K/ L 1.78-5.38 wvyi=417) LYMPHOCYTES ABSOLUTE COUNT (BEAKER) (test 1.85 K/ L 1.32-3.57 yhvq=067) MONOCYTES ABSOLUTE COUNT (BEAKER) (test 0.67 K/ L 0.30-0.82 doxq=807) EOSINOPHILS ABSOLUTE COUNT (BEAKER) (test 0.58 K/ L 0.04-0.54 haka=005) BASOPHILS ABSOLUTE COUNT (BEAKER) (test 0.03 K/ L 0.01-0.08 mhgv=884) IMMATURE GRANULOCYTES-RELATIVE PERCENT (BEAKER) 1 % 0-1 (test ywnx=5119) POCT-GLUCOSE [id number] 21:24:00 Test Item Value Reference Range Comments POC-GLUCOSE METER (BEAKER) 227 mg/dL 70-110 TESTED AT [address] (test oiwb=1729) [place] [address] POCT-GLUCOSE [id number] 17:44:00 Test Item Value Reference Range Comments POC-GLUCOSE METER (BEAKER) 257 mg/dL 70-110 TESTED AT [address] (test ydgn=3437) [place] [address] POCT-GLUCOSE [id number] 11:33:00 Test Item Value Reference Range Comments POC-GLUCOSE METER (BEAKER) 297 mg/dL 70-110 TESTED AT [address] (test dhlb=4162) [place] [address] POCT-GLUCOSE [id number] 07:49:00 Test Item Value Reference Range Comments POC-GLUCOSE METER (BEAKER) 185 mg/dL 70-110 TESTED AT [address] (test xmil=5194) [place] [address] CALCIUM, [id number] 07:30:00 Test Item Value Reference Range Comments CALCIUM IONIZED (BEAKER) (test mbuv=638) 1.05 mmol/L 1.12-1.27 PH, BLOOD (BEAKER) (test xnld=1525) 7.45 [id number] 06:25:00 Test Item Value Reference Range Comments PHOSPHORUS (BEAKER) (test vokk=932) 2.8 mg/dL 2.3-4.7 [id number] 06:25:00 Test Item Value Reference Range Comments MAGNESIUM (BEAKER) (test oxph=927) 1.7 mg/dL 1.6-2.6 COMPREHENSIVE METABOLIC [id number] 06:25:00 Test Item Value Reference Range Comments TOTAL PROTEIN (BEAKER) 5.7 gm/dL 6.0-8.3 (test vdog=767) ALBUMIN (BEAKER) (test 3.1 g/dL 3.5-5.0 wgus=9391) ALKALINE PHOSPHATASE 62 U/L 40-150 (BEAKER) (test tvnv=082) BILIRUBIN TOTAL (BEAKER) 0.7 mg/dL 0.2-1.2 (test njag=855) SODIUM (BEAKER) (test 136 meq/L 136-145 mbgr=036) POTASSIUM (BEAKER) (test 3.2 meq/L 3.5-5.1 wwex=736) CHLORIDE (BEAKER) (test 108 meq/L 98-107 dzju=015) CO2 (BEAKER) (test 18 meq/L 22-29 ngya=675) BLOOD UREA NITROGEN 28 mg/dL 7-21 (BEAKER) (test vbej=873) CREATININE (BEAKER) (test 2.10 mg/dL 0.57-1.25 ckte=020) GLUCOSE RANDOM (BEAKER) 156 mg/dL 70-105 (test opgt=496) CALCIUM (BEAKER) (test 8.4 mg/dL 8.4-10.2 zgdc=902) AST (SGOT) (BEAKER) (test 7 U/L 5-34 adqk=749) ALT (SGPT) (BEAKER) (test 7 U/L 6-55 nyrp=004) EGFR (BEAKER) (test 31 mL/min/1.73 sq m ESTIMATED GFR IS NOT gddp=8575) ACCURATE CREATININE CLEARANCE IN PREDICTING GLOMERULAR FILTRATION RATE. ESTIMATED GFR IS NOT APPLICABLE FOR DIALYSIS PATIENTS. B-TYPE NATRIURETIC FACTOR (BNP)2018-11-23 06:20:00 Test Item Value Reference Range Comments B-TYPE NATRIURETIC PEPTIDE (BEAKER) (test 157 pg/mL 0-100 uwkd=171) CBC W/PLT COUNT & AUTO [id number] 05:56:00 Test Item Value Reference Range Comments WHITE BLOOD CELL COUNT (BEAKER) (test gufz=214) 17.8 K/ L 3.5-10.5 RED BLOOD CELL COUNT (BEAKER) (test cttb=460) 3.25 M/ L 4.63-6.08 HEMOGLOBIN (BEAKER) (test sifi=651) 8.3 GM/DL 13.7-17.5 HEMATOCRIT (BEAKER) (test bqmp=942) 27.1 % 40.1-51.0 MEAN CORPUSCULAR VOLUME (BEAKER) (test qamq=768) 83.4 fL 79.0-92.2 MEAN CORPUSCULAR HEMOGLOBIN (BEAKER) (test 25.5 pg 25.7-32.2 vroz=148) MEAN CORPUSCULAR HEMOGLOBIN CONC (BEAKER) (test 30.6 GM/DL 32.3-36.5 zkjy=598) RED CELL DISTRIBUTION WIDTH (BEAKER) (test 22.4 % 11.6-14.4 rinw=814) PLATELET COUNT (BEAKER) (test hkrq=575) 198 K/CU MM 150-450 MEAN PLATELET VOLUME (BEAKER) (test cjnm=875) 10.1 fL 9.4-12.4 NUCLEATED RED BLOOD CELLS (BEAKER) (test 0 /100 WBC 0-0 szvi=493) NEUTROPHILS RELATIVE PERCENT (BEAKER) (test 82 % gyxu=456) LYMPHOCYTES RELATIVE PERCENT (BEAKER) (test 10 % hixp=328) MONOCYTES RELATIVE PERCENT (BEAKER) (test 6 % gyrj=863) EOSINOPHILS RELATIVE PERCENT (BEAKER) (test 1 % ozrp=562) BASOPHILS RELATIVE PERCENT (BEAKER) (test 0 % yxja=362) NEUTROPHILS ABSOLUTE COUNT (BEAKER) (test 14.60 K/ L 1.78-5.38 fhur=366) LYMPHOCYTES ABSOLUTE COUNT (BEAKER) (test 1.71 K/ L 1.32-3.57 ygpp=370) MONOCYTES ABSOLUTE COUNT (BEAKER) (test 1.03 K/ L 0.30-0.82 jeig=019) EOSINOPHILS ABSOLUTE COUNT (BEAKER) (test 0.22 K/ L 0.04-0.54 efwt=774) BASOPHILS ABSOLUTE COUNT (BEAKER) (test 0.03 K/ L 0.01-0.08 eior=810) IMMATURE GRANULOCYTES-RELATIVE PERCENT (BEAKER) 1 % 0-1 (test uxrs=0351) CT, CHEST, WITHOUT [id number] 04:37:00Replaces exam w contrastFINAL REPORT EXAMINATION: Noncontrast [...] MDReport Verified Date/Time: 2018 04:37:26 Reading Location: [address] Reading Room LACTIC ACID , VENOUS, WHOLE [id number] 00:50:00 Test Item Value Reference Range Comments LACTATE BLOOD VENOUS (2) (BEAKER) (test 2.3 mmol/L 0.5-2.2 ryng=0408) CBC W/PLT COUNT & AUTO [id number] 00:34:00 Test Item Value Reference Range Comments WHITE BLOOD CELL COUNT (BEAKER) (test jyam=294) 19.5 K/ L 3.5-10.5 RED BLOOD CELL COUNT (BEAKER) (test bsyt=408) 3.63 M/ L 4.63-6.08 HEMOGLOBIN (BEAKER) (test gkqz=079) 9.1 GM/DL 13.7-17.5 HEMATOCRIT (BEAKER) (test hwwr=451) 31.0 % 40.1-51.0 MEAN CORPUSCULAR VOLUME (BEAKER) (test bypm=623) 85.4 fL 79.0-92.2 MEAN CORPUSCULAR HEMOGLOBIN (BEAKER) (test 25.1 pg 25.7-32.2 ngjr=681) MEAN CORPUSCULAR HEMOGLOBIN CONC (BEAKER) (test 29.4 GM/DL 32.3-36.5 ndoa=918) RED CELL DISTRIBUTION WIDTH (BEAKER) (test 22.2 % 11.6-14.4 ossg=415) PLATELET COUNT (BEAKER) (test nomr=974) 218 K/CU MM 150-450 MEAN PLATELET VOLUME (BEAKER) (test kndk=288) 10.1 fL 9.4-12.4 NUCLEATED RED BLOOD CELLS (BEAKER) (test 0 /100 WBC 0-0 rlgg=276) NEUTROPHILS RELATIVE PERCENT (BEAKER) (test 84 % dctf=176) LYMPHOCYTES RELATIVE PERCENT (BEAKER) (test 7 % tyoc=354) MONOCYTES RELATIVE PERCENT (BEAKER) (test 6 % wakj=291) EOSINOPHILS RELATIVE PERCENT (BEAKER) (test 1 % detw=247) BASOPHILS RELATIVE PERCENT (BEAKER) (test 0 % efxv=732) NEUTROPHILS ABSOLUTE COUNT (BEAKER) (test 16.28 K/ L 1.78-5.38 nhwh=742) LYMPHOCYTES ABSOLUTE COUNT (BEAKER) (test 1.41 K/ L 1.32-3.57 opjr=076) MONOCYTES ABSOLUTE COUNT (BEAKER) (test 1.16 K/ L 0.30-0.82 ugrn=681) EOSINOPHILS ABSOLUTE COUNT (BEAKER) (test 0.18 K/ L 0.04-0.54 wqeg=185) BASOPHILS ABSOLUTE COUNT (BEAKER) (test 0.06 K/ L 0.01-0.08 ftix=673) IMMATURE GRANULOCYTES-RELATIVE PERCENT (BEAKER) 2 % 0-1 (test yflp=9400) POCT-GLUCOSE [id number] 21:22:00 Test Item Value Reference Range Comments POC-GLUCOSE METER (BEAKER) 308 mg/dL 70-110 Will Repeat Test/TESTED AT (test iyuc=8191) [place] [id number] POCT-GLUCOSE [id number] 17:17:00 Test Item Value Reference Range Comments POC-GLUCOSE METER (BEAKER) 274 mg/dL 70-110 TESTED AT [address] (test rfqm=5242) [place] [id number] POCT-GLUCOSE [id number] 11:42:00 Test Item Value Reference Range Comments POC-GLUCOSE METER (BEAKER) 221 mg/dL 70-110 TESTED AT [address] (test dhwk=3101) [place] [address] POCT-GLUCOSE [id number] 07:49:00 Test Item Value Reference Range Comments POC-GLUCOSE METER (BEAKER) 211 mg/dL 70-110 TESTED AT [address] (test xfvt=1959) [place] [address] [id number] 07:40:00 Test Item Value Reference Range Comments MAGNESIUM (BEAKER) (test ptdc=228) 1.9 mg/dL 1.6-2.6 COMPREHENSIVE METABOLIC [id number] 07:40:00 Test Item Value Reference Range Comments TOTAL PROTEIN (BEAKER) 6.0 gm/dL 6.0-8.3 (test nmjv=106) ALBUMIN (BEAKER) (test 3.4 g/dL 3.5-5.0 drjf=9361) ALKALINE PHOSPHATASE 51 U/L 40-150 (BEAKER) (test hwpe=939) BILIRUBIN TOTAL (BEAKER) 0.5 mg/dL 0.2-1.2 (test yvui=855) SODIUM (BEAKER) (test 137 meq/L 136-145 umqc=920) POTASSIUM (BEAKER) (test 3.5 meq/L 3.5-5.1 sivd=314) CHLORIDE (BEAKER) (test 109 meq/L 98-107 hqtz=723) CO2 (BEAKER) (test 19 meq/L 22-29 dcyx=643) BLOOD UREA NITROGEN 16 mg/dL 7-21 (BEAKER) (test ueoi=310) CREATININE (BEAKER) (test 1.70 mg/dL 0.57-1.25 skqm=784) GLUCOSE RANDOM (BEAKER) 184 mg/dL 70-105 (test kcqy=398) CALCIUM (BEAKER) (test 8.7 mg/dL 8.4-10.2 thdm=077) AST (SGOT) (BEAKER) (test 9 U/L 5-34 lxvh=678) ALT (SGPT) (BEAKER) (test 7 U/L 6-55 seql=550) EGFR (BEAKER) (test 39 mL/min/1.73 sq m ESTIMATED GFR IS NOT eowz=8033) ACCURATE CREATININE CLEARANCE IN PREDICTING GLOMERULAR FILTRATION RATE. ESTIMATED GFR IS NOT APPLICABLE FOR DIALYSIS PATIENTS. [id number] 06:10:00 Test Item Value Reference Range Comments PHOSPHORUS (BEAKER) (test qdqm=031) 2.3 mg/dL 2.3-4.7 CALCIUM, [id number] 05:39:00 Test Item Value Reference Range Comments CALCIUM IONIZED (BEAKER) (test twkv=911) 1.09 mmol/L 1.12-1.27 PH, BLOOD (BEAKER) (test wpwf=7844) 7.47 COMPREHENSIVE METABOLIC [id number] 23:05:00 Test Item Value Reference Range Comments TOTAL PROTEIN (BEAKER) 6.4 gm/dL 6.0-8.3 (test ijdf=439) ALBUMIN (BEAKER) (test 3.6 g/dL 3.5-5.0 kfee=6780) ALKALINE PHOSPHATASE 60 U/L 40-150 (BEAKER) (test zzul=210) BILIRUBIN TOTAL (BEAKER) 0.4 mg/dL 0.2-1.2 (test gwjn=215) SODIUM (BEAKER) (test 135 meq/L 136-145 alnd=046) POTASSIUM (BEAKER) (test 3.5 meq/L 3.5-5.1 ioae=510) CHLORIDE (BEAKER) (test 107 meq/L 98-107 migz=680) CO2 (BEAKER) (test 19 meq/L 22-29 sinb=130) BLOOD UREA NITROGEN 15 mg/dL 7-21 (BEAKER) (test vjdl=075) CREATININE (BEAKER) (test 1.31 mg/dL 0.57-1.25 htbo=616) GLUCOSE RANDOM (BEAKER) 173 mg/dL 70-105 (test yxzj=550) CALCIUM (BEAKER) (test 9.0 mg/dL 8.4-10.2 rzwc=231) AST (SGOT) (BEAKER) (test 9 U/L 5-34 kmwl=948) ALT (SGPT) (BEAKER) (test 9 U/L 6-55 fvnl=293) EGFR (BEAKER) (test 53 mL/min/1.73 sq m ESTIMATED GFR IS NOT lslo=4776) ACCURATE CREATININE CLEARANCE IN PREDICTING GLOMERULAR FILTRATION RATE. ESTIMATED GFR IS NOT APPLICABLE FOR DIALYSIS PATIENTS. LACTIC ACID, VENOUS, WHOLE [id number] 22:58:00 Test Item Value Reference Range Comments LACTATE BLOOD VENOUS (2) (BEAKER) (test 1.3 mmol/L 0.5-2.2 ucys=4777) CBC W/PLT COUNT & AUTO [id number] 22:42:00 Test Item Value Reference Range Comments WHITE BLOOD CELL COUNT (BEAKER) (test ebjw=080) 14.8 K/ L 3.5-10.5 RED BLOOD CELL COUNT (BEAKER) (test wzhm=598) 3.94 M/ L 4.63-6.08 HEMOGLOBIN (BEAKER) (test mvqi=287) 10.1 GM/DL 13.7-17.5 HEMATOCRIT (BEAKER) (test yevb=361) 32.5 % 40.1-51.0 MEAN CORPUSCULAR VOLUME (BEAKER) (test gsra=169) 82.5 fL 79.0-92.2 MEAN CORPUSCULAR HEMOGLOBIN (BEAKER) (test 25.6 pg 25.7-32.2 mnbv=078) MEAN CORPUSCULAR HEMOGLOBIN CONC (BEAKER) (test 31.1 GM/DL 32.3-36.5 kyfp=794) RED CELL DISTRIBUTION WIDTH (BEAKER) (test 21.4 % 11.6-14.4 bzqx=760) PLATELET COUNT (BEAKER) (test fgxa=854) 266 K/CU MM 150-450 MEAN PLATELET VOLUME (BEAKER) (test pvka=727) 9.6 fL 9.4-12.4 NUCLEATED RED BLOOD CELLS (BEAKER) (test 0 /100 WBC 0-0 xhnj=017) NEUTROPHILS RELATIVE PERCENT (BEAKER) (test 90 % nufm=971) LYMPHOCYTES RELATIVE PERCENT (BEAKER) (test 5 % mlkc=760) MONOCYTES RELATIVE PERCENT (BEAKER) (test 4 % wqqe=702) EOSINOPHILS RELATIVE PERCENT (BEAKER) (test 0 % urav=681) BASOPHILS RELATIVE PERCENT (BEAKER) (test 0 % aqfg=478) NEUTROPHILS ABSOLUTE COUNT (BEAKER) (test 13.29 K/ L 1.78-5.38 huuh=159) LYMPHOCYTES ABSOLUTE COUNT (BEAKER) (test 0.79 K/ L 1.32-3.57 zqow=902) MONOCYTES ABSOLUTE COUNT (BEAKER) (test 0.63 K/ L 0.30-0.82 szkh=555) EOSINOPHILS ABSOLUTE COUNT (BEAKER) (test 0.06 K/ L 0.04-0.54 eqeo=785) BASOPHILS ABSOLUTE COUNT (BEAKER) (test 0.02 K/ L 0.01-0.08 vbda=718) IMMATURE GRANULOCYTES-RELATIVE PERCENT (BEAKER) 0 % 0-1 (test enmg=6274) RAD, CHEST, 1 VIEW, NON [id number] 22:14:00Reason for exam:-> wheezingShould this be performed [...] the appropriate on-call clinician. Signed: Myron Kenny Verified Date/ Time: 11/21/2018 22:14:36 Reading Location: [address] Reading Room 10: 14PMPOCT-GLUCOSE [id number] 21:43:00 Test Item Value Reference Range Comments POC-GLUCOSE METER (BEAKER) 195 mg/dL 70-110 TESTED AT [address] (test inxk=8251) [place] [id number] POCT-GLUCOSE [id number] 17:48:00 Test Item Value Reference Range Comments POC-GLUCOSE METER (BEAKER) 186 mg/dL 70-110 TESTED AT [address] (test lohv=4299) [place] [id number] POCT-GLUCOSE [id number] 11:43:00 Test Item Value Reference Range Comments POC-GLUCOSE METER (BEAKER) 321 mg/dL 70-110 TESTED AT [address] (test igce=6304) [place] [address] POCT-GLUCOSE [id number] 07:57:00 Test Item Value Reference Range Comments POC-GLUCOSE METER (BEAKER) 185 mg/dL 70-110 TESTED AT [address] (test wvon=9476) [place] [address] [id number] 07:46:00 Test Item Value Reference Range Comments PHOSPHORUS (BEAKER) (test fwob=875) 2.2 mg/dL 2.3-4.7 [id number] 07:46:00 Test Item Value Reference Range Comments MAGNESIUM (BEAKER) (test sefe=856) 1.7 mg/dL 1.6-2.6 BASIC METABOLIC [id number] 07:46:00 Test Item Value Reference Range Comments SODIUM (BEAKER) (test 139 meq/L 136-145 oorg=512) POTASSIUM (BEAKER) (test 3.3 meq/L 3.5-5.1 sibb=355) CHLORIDE (BEAKER) (test 108 meq/L 98-107 xcec=120) CO2 (BEAKER) (test 20 meq/L 22-29 upxm=208) BLOOD UREA NITROGEN 15 mg/dL 7-21 (BEAKER) (test znuv=480) CREATININE (BEAKER) (test 1.26 mg/dL 0.57-1.25 kyxe=017) GLUCOSE RANDOM (BEAKER) 117 mg/dL 70-105 (test hhwk=484) CALCIUM (BEAKER) (test 8.9 mg/dL 8.4-10.2 vyzt=212) EGFR (BEAKER) (test 56 mL/min/1.73 sq m ESTIMATED GFR IS NOT fbex=2978) ACCURATE CREATININE CLEARANCE IN PREDICTING GLOMERULAR FILTRATION RATE. ESTIMATED GFR IS NOT APPLICABLE FOR DIALYSIS PATIENTS. CBC W/PLT COUNT & AUTO [id number] 07:14:00 Test Item Value Reference Range Comments WHITE BLOOD CELL COUNT (BEAKER) (test scrz=167) 8.6 K/ L 3.5-10.5 RED BLOOD CELL COUNT (BEAKER) (test vwdn=413) 3.49 M/ L 4.63-6.08 HEMOGLOBIN (BEAKER) (test etkv=641) 8.9 GM/DL 13.7-17.5 HEMATOCRIT (BEAKER) (test uopt=571) 29.5 % 40.1-51.0 MEAN CORPUSCULAR VOLUME (BEAKER) (test dmom=307) 84.5 fL 79.0-92.2 MEAN CORPUSCULAR HEMOGLOBIN (BEAKER) (test 25.5 pg 25.7-32.2 bwpn=655) MEAN CORPUSCULAR HEMOGLOBIN CONC (BEAKER) (test 30.2 GM/DL 32.3-36.5 budf=095) RED CELL DISTRIBUTION WIDTH (BEAKER) (test 21.2 % 11.6-14.4 nyey=759) PLATELET COUNT (BEAKER) (test bezv=023) 269 K/CU MM 150-450 MEAN PLATELET VOLUME (BEAKER) (test hsqa=252) 11.3 fL 9.4-12.4 NUCLEATED RED BLOOD CELLS (BEAKER) (test 0 /100 WBC 0-0 lfuq=297) NEUTROPHILS RELATIVE PERCENT (BEAKER) (test 63 % qqoj=030) LYMPHOCYTES RELATIVE PERCENT (BEAKER) (test 27 % bvgk=719) MONOCYTES RELATIVE PERCENT (BEAKER) (test 6 % ptvg=547) EOSINOPHILS RELATIVE PERCENT (BEAKER) (test 4 % dnfj=939) BASOPHILS RELATIVE PERCENT (BEAKER) (test 1 % sijp=155) NEUTROPHILS ABSOLUTE COUNT (BEAKER) (test 5.40 K/ L 1.78-5.38 ejqq=043) LYMPHOCYTES ABSOLUTE COUNT (BEAKER) (test 2.30 K/ L 1.32-3.57 bvcf=852) MONOCYTES ABSOLUTE COUNT (BEAKER) (test 0.52 K/ L 0.30-0.82 mrmm=895) EOSINOPHILS ABSOLUTE COUNT (BEAKER) (test 0.33 K/ L 0.04-0.54 ieyw=421) BASOPHILS ABSOLUTE COUNT (BEAKER) (test 0.06 K/ L 0.01-0.08 fpfs=852) IMMATURE GRANULOCYTES-RELATIVE PERCENT (BEAKER) 0 % 0-1 (test sgbb=7300) CALCIUM, [id number] 05:37:00 Test Item Value Reference Range Comments CALCIUM IONIZED (BEAKER) (test vqze=706) 1.09 mmol/L 1.12-1.27 PH, BLOOD (BEAKER) (test hovf=2421) 7.45 POCT-GLUCOSE [id number] 20:52:00 Test Item Value Reference Range Comments POC-GLUCOSE METER (BEAKER) 134 mg/dL 70-110 TESTED AT [address] (test rgui=6929) [facility] [address] [address], ABDOMEN, RENAL MASS, CYST [id number] 15:11:00Reason for exam:-> right renal massFINAL REPORT [...] MDReport Verified Date/Time: 11/20/2018 15:11:56 Reading Location: [facility] B1 C013Y CT Body Reading Room 03: 11 PMPOCT-GLUCOSE [id number] 12:13:00 Test Item Value Reference Range Comments POC-GLUCOSE METER (BEAKER) 221 mg/dL 70-110 TESTED AT [address] (test rjpr=2375) [facility] [address] POCT-GLUCOSE [id number] 12:10:00 Test Item Value Reference Range Comments POC-GLUCOSE METER (BEAKER) 148 mg/dL 70-110 TESTED AT [place] [id number] [facility] (test wcut=4420) [facility] [address] [id number] 05:52:00 Test Item Value Reference Range Comments MAGNESIUM (BEAKER) (test 2.0 mg/dL 1.6-2.6 Specimen slightly hemolyzed ueln=080) [id number] 05:52:00 Test Item Value Reference Range Comments PHOSPHORUS (BEAKER) (test 2.2 mg/dL 2.3-4.7 Specimen slightly hemolyzed ejvv=817) BASIC METABOLIC [id number] 05:52:00 Test Item Value Reference Range Comments SODIUM (BEAKER) (test 141 meq/L 136-145 ardn=122) POTASSIUM (BEAKER) (test 3.7 meq/L 3.5-5.1 Specimen slightly rdjw=386) hemolyzed CHLORIDE (BEAKER) (test 111 meq/L 98-107 srgs=993) CO2 (BEAKER) (test 19 meq/L 22-29 zfle=235) BLOOD UREA NITROGEN 18 mg/dL 7-21 (BEAKER) (test vfhq=657) CREATININE (BEAKER) (test 1.33 mg/dL 0.57-1.25 Specimen slightly rqer=311) hemolyzed GLUCOSE RANDOM (BEAKER) 133 mg/dL 70-105 (test zwbr=516) CALCIUM (BEAKER) (test 9.1 mg/dL 8.4-10.2 tqqt=133) EGFR (BEAKER) (test 52 mL/min/1.73 sq m ESTIMATED GFR IS NOT xqxo=6615) ACCURATE CREATININE CLEARANCE IN PREDICTING GLOMERULAR FILTRATION RATE. ESTIMATED GFR IS NOT APPLICABLE FOR DIALYSIS PATIENTS. CALCIUM, [id number] 05:46:00 Test Item Value Reference Range Comments CALCIUM IONIZED (BEAKER) (test rrjm=555) 1.07 mmol/L 1.12-1.27 PH, BLOOD (BEAKER) (test vptq=3085) 7.45 CBC W/PLT COUNT & AUTO [id number] 05:45:00 Test Item Value Reference Range Comments WHITE BLOOD CELL COUNT (BEAKER) (test quke=481) 9.4 K/ L 3.5-10.5 RED BLOOD CELL COUNT (BEAKER) (test zvdp=597) 3.59 M/ L 4.63-6.08 HEMOGLOBIN (BEAKER) (test pmpq=921) 8.9 GM/DL 13.7-17.5 HEMATOCRIT (BEAKER) (test shmk=077) 30.6 % 40.1-51.0 MEAN CORPUSCULAR VOLUME (BEAKER) (test hdxq=060) 85.2 fL 79.0-92.2 MEAN CORPUSCULAR HEMOGLOBIN (BEAKER) (test 24.8 pg 25.7-32.2 puai=181) MEAN CORPUSCULAR HEMOGLOBIN CONC (BEAKER) (test 29.1 GM/DL 32.3-36.5 wjez=310) RED CELL DISTRIBUTION WIDTH (BEAKER) (test 20.9 % 11.6-14.4 jkgq=571) PLATELET COUNT (BEAKER) (test yvqq=972) 300 K/CU MM 150-450 MEAN PLATELET VOLUME (BEAKER) (test zhkl=712) 9.9 fL 9.4-12.4 NUCLEATED RED BLOOD CELLS (BEAKER) (test 0 /100 WBC 0-0 gron=451) NEUTROPHILS RELATIVE PERCENT (BEAKER) (test 68 % zirs=748) LYMPHOCYTES RELATIVE PERCENT (BEAKER) (test 23 % mxxy=106) MONOCYTES RELATIVE PERCENT (BEAKER) (test 5 % ejdl=871) EOSINOPHILS RELATIVE PERCENT (BEAKER) (test 3 % aejd=117) BASOPHILS RELATIVE PERCENT (BEAKER) (test 1 % qlss=506) NEUTROPHILS ABSOLUTE COUNT (BEAKER) (test 6.38 K/ L 1.78-5.38 jkax=600) LYMPHOCYTES ABSOLUTE COUNT (BEAKER) (test 2.18 K/ L 1.32-3.57 rsar=531) MONOCYTES ABSOLUTE COUNT (BEAKER) (test 0.50 K/ L 0.30-0.82 soly=966) EOSINOPHILS ABSOLUTE COUNT (BEAKER) (test 0.28 K/ L 0.04-0.54 evrz=291) BASOPHILS ABSOLUTE COUNT (BEAKER) (test 0.05 K/ L 0.01-0.08 viuf=569) IMMATURE GRANULOCYTES-RELATIVE PERCENT (BEAKER) 0 % 0-1 (test qthw=5733) RAD, ABDOMEN/KUB, 1 VIEW [id number] 00:47:00Reason for exam:->placement of dobhoff tube, thanksFINAL REPORT EXAMINATION: SUPINE ABDOMEN CLINICAL INDICATION: FEEDING TUBE PLACEMENT IMPRESSION: Tip of the feeding tube projects over the left upper abdomen in the region of the stomach. Signed: Myron Kenny Verified Date/Time: 11/20/2018 00:47:19 Reading Location: [address] Reading Room POCT-GLUCOSE [id number] 20:52:00 Test Item Value Reference Range Comments POC-GLUCOSE METER (BEAKER) 150 mg/dL 70-110 TESTED AT [facility] [address] [facility] (test yonl=3527) [facility] [address] POCT-GLUCOSE [id number] 19:47:00 Test Item Value Reference Range Comments POC-GLUCOSE METER (BEAKER) 179 mg/dL 70-110 TESTED AT [place] [id number] [facility] (test ffre=3253) [facility] [address] RAD, CHEST, 1 VIEW, NON [id number] 18:19:00After EGDReason for exam:->NG tube placementShould this [...] Date/ Time: 11/19/2018 18:19:18 Reading Location: [facility] Radiology Reading Room POCT-GLUCOSE [id number] 16:55:00 Test Item Value Reference Range Comments POC-GLUCOSE METER (BEAKER) 172 mg/dL 70-110 TESTED AT [address] (test fkhv=1466) [facility] [address] POCT-GLUCOSE [id number] 11:56:00 Test Item Value Reference Range Comments POC-GLUCOSE METER (BEAKER) 158 mg/dL 70-110 TESTED AT [address] (test kgov=6235) [facility] [address] POCT-GLUCOSE [id number] 07:17:00 Test Item Value Reference Range Comments POC-GLUCOSE METER (BEAKER) 142 mg/dL 70-110 TESTED AT [address] (test osfs=6232) [place] [address] [id number] 06:49:00 Test Item Value Reference Range Comments PHOSPHORUS (BEAKER) (test qund=520) 2.4 mg/dL 2.3-4.7 [id number] 06:49:00 Test Item Value Reference Range Comments MAGNESIUM (BEAKER) (test vkgj=209) 1.7 mg/dL 1.6-2.6 BASIC METABOLIC [id number] 06:49:00 Test Item Value Reference Range Comments SODIUM (BEAKER) (test 144 meq/L 136-145 hvbt=672) POTASSIUM (BEAKER) (test 3.4 meq/L 3.5-5.1 wynj=481) CHLORIDE (BEAKER) (test 111 meq/L 98-107 uwwz=498) CO2 (BEAKER) (test 24 meq/L 22-29 jmhx=992) BLOOD UREA NITROGEN 19 mg/dL 7-21 (BEAKER) (test izox=748) CREATININE (BEAKER) (test 1.35 mg/dL 0.57-1.25 vyuj=701) GLUCOSE RANDOM (BEAKER) 139 mg/dL 70-105 (test aygg=530) CALCIUM (BEAKER) (test 9.4 mg/dL 8.4-10.2 yrwk=451) EGFR (BEAKER) (test 52 mL/min/1.73 sq m ESTIMATED GFR IS NOT kxlq=8255) ACCURATE CREATININE CLEARANCE IN PREDICTING GLOMERULAR FILTRATION RATE. ESTIMATED GFR IS NOT APPLICABLE FOR DIALYSIS PATIENTS. CBC W/PLT COUNT & AUTO [id number] 06:48:00 Test Item Value Reference Range Comments WHITE BLOOD CELL COUNT (BEAKER) (test dbkk=037) 9.0 K/ L 3.5-10.5 RED BLOOD CELL COUNT (BEAKER) (test befz=331) 3.60 M/ L 4.63-6.08 HEMOGLOBIN (BEAKER) (test vbyc=710) 9.0 GM/DL 13.7-17.5 HEMATOCRIT (BEAKER) (test crwj=085) 29.9 % 40.1-51.0 MEAN CORPUSCULAR VOLUME (BEAKER) (test wyvq=364) 83.1 fL 79.0-92.2 MEAN CORPUSCULAR HEMOGLOBIN (BEAKER) (test 25.0 pg 25.7-32.2 kine=554) MEAN CORPUSCULAR HEMOGLOBIN CONC (BEAKER) (test 30.1 GM/DL 32.3-36.5 dnbh=627) RED CELL DISTRIBUTION WIDTH (BEAKER) (test 20.1 % 11.6-14.4 cess=939) PLATELET COUNT (BEAKER) (test fkrv=672) 342 K/CU MM 150-450 MEAN PLATELET VOLUME (BEAKER) (test ddei=444) 9.6 fL 9.4-12.4 NUCLEATED RED BLOOD CELLS (BEAKER) (test 0 /100 WBC 0-0 nbhs=159) NEUTROPHILS RELATIVE PERCENT (BEAKER) (test 69 % dmlr=719) LYMPHOCYTES RELATIVE PERCENT (BEAKER) (test 22 % dmbu=497) MONOCYTES RELATIVE PERCENT (BEAKER) (test 6 % btdy=086) EOSINOPHILS RELATIVE PERCENT (BEAKER) (test 2 % dyiy=624) BASOPHILS RELATIVE PERCENT (BEAKER) (test 1 % hpds=218) NEUTROPHILS ABSOLUTE COUNT (BEAKER) (test 6.19 K/ L 1.78-5.38 tspm=805) LYMPHOCYTES ABSOLUTE COUNT (BEAKER) (test 1.99 K/ L 1.32-3.57 qpju=872) MONOCYTES ABSOLUTE COUNT (BEAKER) (test 0.52 K/ L 0.30-0.82 axwe=972) EOSINOPHILS ABSOLUTE COUNT (BEAKER) (test 0.18 K/ L 0.04-0.54 luan=100) BASOPHILS ABSOLUTE COUNT (BEAKER) (test 0.06 K/ L 0.01-0.08 ysdl=117) IMMATURE GRANULOCYTES-RELATIVE PERCENT (BEAKER) 0 % 0-1 (test xexq=6666) POCT-GLUCOSE [id number] 21:23:00 Test Item Value Reference Range Comments POC-GLUCOSE METER (BEAKER) 172 mg/dL 70-110 TESTED AT [address] (test lwbf=3188) [place] [id number] POCT-GLUCOSE [id number] 11:34:00 Test Item Value Reference Range Comments POC-GLUCOSE METER (BEAKER) 187 mg/dL 70-110 TESTED AT [address] (test mfvw=5667) [place] [id number] POCT-GLUCOSE [id number] 07:51:00 Test Item Value Reference Range Comments POC-GLUCOSE METER (BEAKER) 192 mg/dL 70-110 TESTED AT [address] (test jisr=9300) [place] [id number] CALCIUM, [id number] 06:19:00 Test Item Value Reference Range Comments CALCIUM IONIZED (BEAKER) (test bayg=057) 1.13 mmol/L 1.12-1.27 PH, BLOOD (BEAKER) (test hqgp=4294) 7.43 [id number] 06:03:00 Test Item Value Reference Range Comments PHOSPHORUS (BEAKER) (test fpyu=171) 2.5 mg/dL 2.3-4.7 [id number] 06:03:00 Test Item Value Reference Range Comments MAGNESIUM (BEAKER) (test xgek=485) 1.5 mg/dL 1.6-2.6 BASIC METABOLIC [id number] 06:03:00 Test Item Value Reference Range Comments SODIUM (BEAKER) (test 140 meq/L 136-145 lfza=140) POTASSIUM (BEAKER) (test 3.6 meq/L 3.5-5.1 oozz=685) CHLORIDE (BEAKER) (test 108 meq/L 98-107 gqkk=176) CO2 (BEAKER) (test 22 meq/L 22-29 lqmr=092) BLOOD UREA NITROGEN 21 mg/dL 7-21 (BEAKER) (test jmsh=508) CREATININE (BEAKER) (test 1.40 mg/dL 0.57-1.25 jfhx=665) GLUCOSE RANDOM (BEAKER) 158 mg/dL 70-105 (test xcda=418) CALCIUM (BEAKER) (test 9.1 mg/dL 8.4-10.2 hulg=554) EGFR (BEAKER) (test 49 mL/min/1.73 sq m ESTIMATED GFR IS NOT evum=3788) ACCURATE CREATININE CLEARANCE IN PREDICTING GLOMERULAR FILTRATION RATE. ESTIMATED GFR IS NOT APPLICABLE FOR DIALYSIS PATIENTS. CBC W/PLT COUNT & AUTO [id number] 05:41:00 Test Item Value Reference Range Comments WHITE BLOOD CELL COUNT (BEAKER) (test sdmm=651) 10.1 K/ L 3.5-10.5 RED BLOOD CELL COUNT (BEAKER) (test beqf=652) 3.56 M/ L 4.63-6.08 HEMOGLOBIN (BEAKER) (test rdwf=827) 8.8 GM/DL 13.7-17.5 HEMATOCRIT (BEAKER) (test urpu=499) 29.6 % 40.1-51.0 MEAN CORPUSCULAR VOLUME (BEAKER) (test wwdw=899) 83.1 fL 79.0-92.2 MEAN CORPUSCULAR HEMOGLOBIN (BEAKER) (test 24.7 pg 25.7-32.2 apai=776) MEAN CORPUSCULAR HEMOGLOBIN CONC (BEAKER) (test 29.7 GM/DL 32.3-36.5 wubb=069) RED CELL DISTRIBUTION WIDTH (BEAKER) (test 19.7 % 11.6-14.4 pzbj=030) PLATELET COUNT (BEAKER) (test ukgw=987) 337 K/CU MM 150-450 MEAN PLATELET VOLUME (BEAKER) (test qbgj=802) 10.3 fL 9.4-12.4 NUCLEATED RED BLOOD CELLS (BEAKER) (test 0 /100 WBC 0-0 xjta=455) NEUTROPHILS RELATIVE PERCENT (BEAKER) (test 69 % enpn=560) LYMPHOCYTES RELATIVE PERCENT (BEAKER) (test 21 % rwtw=912) MONOCYTES RELATIVE PERCENT (BEAKER) (test 6 % vscc=785) EOSINOPHILS RELATIVE PERCENT (BEAKER) (test 2 % dcbm=376) BASOPHILS RELATIVE PERCENT (BEAKER) (test 1 % potd=711) NEUTROPHILS ABSOLUTE COUNT (BEAKER) (test 6.98 K/ L 1.78-5.38 uaaq=120) LYMPHOCYTES ABSOLUTE COUNT (BEAKER) (test 2.13 K/ L 1.32-3.57 jsbx=835) MONOCYTES ABSOLUTE COUNT (BEAKER) (test 0.65 K/ L 0.30-0.82 ivrh=618) EOSINOPHILS ABSOLUTE COUNT (BEAKER) (test 0.20 K/ L 0.04-0.54 gimb=383) BASOPHILS ABSOLUTE COUNT (BEAKER) (test 0.05 K/ L 0.01-0.08 cled=478) IMMATURE GRANULOCYTES-RELATIVE PERCENT (BEAKER) 1 % 0-1 (test tcoo=8812) POCT-GLUCOSE [id number] 21:32:00 Test Item Value Reference Range Comments POC-GLUCOSE METER (BEAKER) 187 mg/dL 70-110 TESTED AT [address] (test bdvm=1044) [place] [address] POCT-GLUCOSE [id number] 17:16:00 Test Item Value Reference Range Comments POC-GLUCOSE METER (BEAKER) 174 mg/dL 70-110 TESTED AT [address] (test gqet=1633) [place] [address] POCT-GLUCOSE [id number] 11:52:00 Test Item Value Reference Range Comments POC-GLUCOSE METER (BEAKER) 172 mg/dL 70-110 TESTED AT [address] (test yene=4428) [place] [address] BASIC METABOLIC [id number] 09:39:00 Test Item Value Reference Range Comments SODIUM (BEAKER) (test 140 meq/L 136-145 mtxj=081) POTASSIUM (BEAKER) (test 3.9 meq/L 3.5-5.1 uvmk=510) CHLORIDE (BEAKER) (test 109 meq/L 98-107 bdqh=165) CO2 (BEAKER) (test 20 meq/L 22-29 asbj=359) BLOOD UREA NITROGEN 20 mg/dL 7-21 (BEAKER) (test beqb=445) CREATININE (BEAKER) (test 1.47 mg/dL 0.57-1.25 kjut=905) GLUCOSE RANDOM (BEAKER) 138 mg/dL 70-105 (test bdxt=872) CALCIUM (BEAKER) (test 9.3 mg/dL 8.4-10.2 knqt=410) EGFR (BEAKER) (test 47 mL/min/1.73 sq m ESTIMATED GFR IS NOT xrbe=4076) ACCURATE CREATININE CLEARANCE IN PREDICTING GLOMERULAR FILTRATION RATE. ESTIMATED GFR IS NOT APPLICABLE FOR DIALYSIS PATIENTS. CBC (HEMOGRAM ONLY)2018-11-17 09:22:00 Test Item Value Reference Range Comments WHITE BLOOD CELL COUNT (BEAKER) (test wtuk=598) 9.9 K/ L 3.5-10.5 RED BLOOD CELL COUNT (BEAKER) (test tlgg=920) 3.62 M/ L 4.63-6.08 HEMOGLOBIN (BEAKER) (test rnzs=375) 8.9 GM/DL 13.7-17.5 HEMATOCRIT (BEAKER) (test vvno=497) 29.9 % 40.1-51.0 MEAN CORPUSCULAR VOLUME (BEAKER) (test gwxh=536) 82.6 fL 79.0-92.2 MEAN CORPUSCULAR HEMOGLOBIN (BEAKER) (test 24.6 pg 25.7-32.2 bpbm=961) MEAN CORPUSCULAR HEMOGLOBIN CONC (BEAKER) (test 29.8 GM/DL 32.3-36.5 avpd=763) RED CELL DISTRIBUTION WIDTH (BEAKER) (test 19.4 % 11.6-14.4 luww=377) PLATELET COUNT (BEAKER) (test vnag=147) 364 K/CU MM 150-450 MEAN PLATELET VOLUME (BEAKER) (test sema=607) 9.4 fL 9.4-12.4 NUCLEATED RED BLOOD CELLS (BEAKER) (test 0 /100 WBC 0-0 gstl=564) POCT-GLUCOSE [id number] 07:54:00 Test Item Value Reference Range Comments POC-GLUCOSE METER (BEAKER) 140 mg/dL 70-110 TESTED AT [address] (test snuf=3550) [facility] [address] POCT-GLUCOSE [id number] 20:01:00 Test Item Value Reference Range Comments POC-GLUCOSE METER (BEAKER) 176 mg/dL 70-110 TESTED AT [address] (test rmjy=1012) [facility] [address] POCT-GLUCOSE [id number] 17:51:00 Test Item Value Reference Range Comments POC-GLUCOSE METER (BEAKER) 168 mg/dL 70-110 TESTED AT [address] (test mjkr=9352) [facility] [address] POCT-GLUCOSE [id number] 11:41:00 Test Item Value Reference Range Comments POC-GLUCOSE METER (BEAKER) 164 mg/dL 70-110 TESTED AT [address] (test hmzg=5176) [facility] [address] POCT-GLUCOSE [id number] 08:13:00 Test Item Value Reference Range Comments POC-GLUCOSE METER (BEAKER) 161 mg/dL 70-110 TESTED AT [address] (test dwvm=6544) [facility] [address] COMPREHENSIVE METABOLIC [id number] 05:49:00 Test Item Value Reference Range Comments TOTAL PROTEIN (BEAKER) 7.0 gm/dL 6.0-8.3 (test bnda=685) ALBUMIN (BEAKER) (test 3.8 g/dL 3.5-5.0 tevy=0971) ALKALINE PHOSPHATASE 70 U/L 40-150 (BEAKER) (test vsnw=729) BILIRUBIN TOTAL (BEAKER) 0.4 mg/dL 0.2-1.2 (test tans=873) SODIUM (BEAKER) (test 139 meq/L 136-145 xbmx=413) POTASSIUM (BEAKER) (test 3.8 meq/L 3.5-5.1 qtri=915) CHLORIDE (BEAKER) (test 107 meq/L 98-107 wpan=208) CO2 (BEAKER) (test 22 meq/L 22-29 lpcu=000) BLOOD UREA NITROGEN 19 mg/dL 7-21 (BEAKER) (test xcit=444) CREATININE (BEAKER) (test 1.66 mg/dL 0.57-1.25 vnpf=266) GLUCOSE RANDOM (BEAKER) 137 mg/dL 70-105 (test euhq=063) CALCIUM (BEAKER) (test 9.6 mg/dL 8.4-10.2 qrec=178) AST (SGOT) (BEAKER) (test 9 U/L 5-34 ovos=223) ALT (SGPT) (BEAKER) (test 10 U/L 6-55 qona=174) EGFR (BEAKER) (test 41 mL/min/1.73 sq m ESTIMATED GFR IS NOT dkye=8529) ACCURATE CREATININE CLEARANCE IN PREDICTING GLOMERULAR FILTRATION RATE. ESTIMATED GFR IS NOT APPLICABLE FOR DIALYSIS PATIENTS. CBC (HEMOGRAM ONLY)2018-11-16 05:28:00 Test Item Value Reference Range Comments WHITE BLOOD CELL COUNT (BEAKER) (test sjww=631) 11.1 K/ L 3.5-10.5 RED BLOOD CELL COUNT (BEAKER) (test ocgy=043) 3.57 M/ L 4.63-6.08 HEMOGLOBIN (BEAKER) (test vggv=808) 8.8 GM/DL 13.7-17.5 HEMATOCRIT (BEAKER) (test hgkw=062) 29.4 % 40.1-51.0 MEAN CORPUSCULAR VOLUME (BEAKER) (test ajyo=610) 82.4 fL 79.0-92.2 MEAN CORPUSCULAR HEMOGLOBIN (BEAKER) (test 24.6 pg 25.7-32.2 idxg=478) MEAN CORPUSCULAR HEMOGLOBIN CONC (BEAKER) (test 29.9 GM/DL 32.3-36.5 qyxn=884) RED CELL DISTRIBUTION WIDTH (BEAKER) (test 19.0 % 11.6-14.4 wbln=586) PLATELET COUNT (BEAKER) (test qfqf=564) 381 K/CU MM 150-450 MEAN PLATELET VOLUME (BEAKER) (test gthu=250) 9.7 fL 9.4-12.4 NUCLEATED RED BLOOD CELLS (BEAKER) (test 0 /100 WBC 0-0 nidt=011) POCT-GLUCOSE [id number] 21:10:00 Test Item Value Reference Range Comments POC-GLUCOSE METER (BEAKER) 133 mg/dL 70-110 TESTED AT [facility] [address] [facility] (test nmtx=7217) [facility] [address] POCT-GLUCOSE [id number] 18:30:00 Test Item Value Reference Range Comments POC-GLUCOSE METER (BEAKER) 158 mg/dL 70-110 TESTED AT [address] (test cort=5439) [place] [address] POCT-GLUCOSE [id number] 12:09:00 Test Item Value Reference Range Comments POC-GLUCOSE METER (BEAKER) 172 mg/dL 70-110 TESTED AT [address] (test lsis=8217) [place] [address] POCT-GLUCOSE [id number] 07:55:00 Test Item Value Reference Range Comments POC-GLUCOSE METER (BEAKER) 178 mg/dL 70-110 TESTED AT [address] (test vigf=7918) [place] [address] BASIC METABOLIC [id number] 07:20:00 Test Item Value Reference Range Comments SODIUM (BEAKER) (test 137 meq/L 136-145 dste=200) POTASSIUM (BEAKER) (test 3.8 meq/L 3.5-5.1 prbn=940) CHLORIDE (BEAKER) (test 106 meq/L 98-107 bumv=227) CO2 (BEAKER) (test 22 meq/L 22-29 qbpx=765) BLOOD UREA NITROGEN 21 mg/dL 7-21 (BEAKER) (test nqii=395) CREATININE (BEAKER) (test 1.56 mg/dL 0.57-1.25 pvpy=505) GLUCOSE RANDOM (BEAKER) 142 mg/dL 70-105 (test emqy=378) CALCIUM (BEAKER) (test 9.3 mg/dL 8.4-10.2 webh=832) EGFR (BEAKER) (test 44 mL/min/1.73 sq m ESTIMATED GFR IS NOT alud=2997) ACCURATE CREATININE CLEARANCE IN PREDICTING GLOMERULAR FILTRATION RATE. ESTIMATED GFR IS NOT APPLICABLE FOR DIALYSIS PATIENTS. B-TYPE NATRIURETIC FACTOR (BNP)2018-11-15 06:49:00 Test Item Value Reference Range Comments B-TYPE NATRIURETIC PEPTIDE (BEAKER) (test 172 pg/mL 0-100 tfjr=060) POCT-GLUCOSE [id number] 06:27:00 Test Item Value Reference Range Comments POC-GLUCOSE METER (BEAKER) 151 mg/dL 70-110 TESTED AT [address] (test kcro=7484) [place] [address] CBC (HEMOGRAM ONLY)2018-11-15 06:21:00 Test Item Value Reference Range Comments WHITE BLOOD CELL COUNT (BEAKER) (test wkjw=795) 10.1 K/ L 3.5-10.5 RED BLOOD CELL COUNT (BEAKER) (test vaop=209) 3.42 M/ L 4.63-6.08 HEMOGLOBIN (BEAKER) (test dbcr=884) 8.4 GM/DL 13.7-17.5 HEMATOCRIT (BEAKER) (test rqke=980) 27.6 % 40.1-51.0 MEAN CORPUSCULAR VOLUME (BEAKER) (test nwxr=486) 80.7 fL 79.0-92.2 MEAN CORPUSCULAR HEMOGLOBIN (BEAKER) (test 24.6 pg 25.7-32.2 yjqk=797) MEAN CORPUSCULAR HEMOGLOBIN CONC (BEAKER) (test 30.4 GM/DL 32.3-36.5 jepl=343) RED CELL DISTRIBUTION WIDTH (BEAKER) (test 18.5 % 11.6-14.4 lgmg=764) PLATELET COUNT (BEAKER) (test xmwi=227) 383 K/CU MM 150-450 MEAN PLATELET VOLUME (BEAKER) (test cbwy=156) 10.1 fL 9.4-12.4 NUCLEATED RED BLOOD CELLS (BEAKER) (test 0 /100 WBC 0-0 hwlo=736) POCT-GLUCOSE [id number] 21:06:00 Test Item Value Reference Range Comments POC-GLUCOSE METER (BEAKER) 157 mg/dL 70-110 TESTED AT [facility] [address] [place] [address] (test kcnr=4501) [facility] [address] RAD, CHEST, 1 VIEW, NON [id number] 19:50:00Reason for exam:->sob/shest painShould this be performed [...] Verified Date/Time : 11/14/2018 19:50:32 Reading Location: [facility] [address] [facility] Reading Room RAD , ABDOMEN/KUB, 1 VIEW [id number] 19:02:00Reason for exam:->Check NGT placementPt is hard [...] The examination is otherwise stable. Signed: Sarmad Riveraort Verified Date/Time: 11/14/2018 19:02:06 Reading Location: [address] Reading Room POCT-GLUCOSE [id number] 17:34:00 Test Item Value Reference Range Comments POC-GLUCOSE METER (AllergEaseAKER) 136 mg/dL 70-110 TESTED AT [address] (test cwwe=9549) [facility] [address] TROPONIN [id number] 16:18:00 Test Item Value Reference Range Comments TROPONIN I (BEAKER) (test tdqk=045) < ng/mL 0.00-0.03 Troponin I (TnI) levels [...] Range Comments CREATINE KINASE TOTAL (BEAKER) (test ajxw=100) 68 U/L 29-200 RAD, ABDOMEN/KUB, 1 VIEW [id number] 15:36:00Reason for exam:->Abdominal distension; VomitingShould this be [...] Ortiz Verified Date/Time: 11/14/2018 15:36:02 Reading Location: [address] Consult Reading Room POCT-GLUCOSE [id number] 12:10: 00 Test Item Value Reference Range Comments POC-GLUCOSE METER (BEAKER) 195 mg/dL 70-110 TESTED AT [address] (test jwkc=6133) [facility] [address] POCT-GLUCOSE [id number] 08:00:00 Test Item Value Reference Range Comments POC-GLUCOSE METER (BEAKER) 195 mg/dL 70-110 TESTED AT [address] (test ugzk=5738) [facility] [address] COMPREHENSIVE METABOLIC [id number] 06:10:00 Test Item Value Reference Range Comments TOTAL PROTEIN (BEAKER) 7.1 gm/dL 6.0-8.3 (test swrc=447) ALBUMIN (BEAKER) (test 3.8 g/dL 3.5-5.0 vdvu=3720) ALKALINE PHOSPHATASE 78 U/L 40-150 (BEAKER) (test nmdn=598) BILIRUBIN TOTAL (BEAKER) 0.3 mg/dL 0.2-1.2 (test rftj=561) SODIUM (BEAKER) (test 136 meq/L 136-145 nggb=645) POTASSIUM (BEAKER) (test 4.0 meq/L 3.5-5.1 ksam=712) CHLORIDE (BEAKER) (test 107 meq/L 98-107 pkwj=582) CO2 (BEAKER) (test 19 meq/L 22-29 fkil=040) BLOOD UREA NITROGEN 25 mg/dL 7-21 (BEAKER) (test ohkb=396) CREATININE (BEAKER) (test 1.67 mg/dL 0.57-1.25 vkgr=622) GLUCOSE RANDOM (BEAKER) 177 mg/dL 70-105 (test ejkb=783) CALCIUM (BEAKER) (test 9.4 mg/dL 8.4-10.2 anvs=842) AST (SGOT) (BEAKER) (test 9 U/L 5-34 enqh=221) ALT (SGPT) (BEAKER) (test 10 U/L 6-55 boya=700) EGFR (BEAKER) (test 40 mL/min/1.73 sq m ESTIMATED GFR IS NOT madl=7958) ACCURATE CREATININE CLEARANCE IN PREDICTING GLOMERULAR FILTRATION RATE. ESTIMATED GFR IS NOT APPLICABLE FOR DIALYSIS PATIENTS. PROTHROMBIN [id number] 05:59:00 Test Item Value Reference Range Comments PROTIME (BEAKER) (test ocud=116) 17.4 seconds 11.7-14.7 INR (BEAKER) (test pxzc=370) 1.4 <=5.9 RECOMMENDED COUMADIN/WARFARIN INR THERAPY RANGESSTANDARD DOSE: 2.0 - 3.0 Includes: PROPHYLAXIS forvenous thrombosis, systemic embolization; TREATMENT for venous thrombosis and/or pulmonary embolus.HIGH RISK: Target INR is 2.5-3.5 for patients with mechanical heart valves.CBC W/PLT COUNT & AUTO [id number] 05:45:00 Test Item Value Reference Range Comments WHITE BLOOD CELL COUNT (BEAKER) (test vhrz=716) 11.1 K/ L 3.5-10.5 RED BLOOD CELL COUNT (BEAKER) (test husi=722) 3.63 M/ L 4.63-6.08 HEMOGLOBIN (BEAKER) (test vcrc=613) 8.8 GM/DL 13.7-17.5 HEMATOCRIT (BEAKER) (test ilop=317) 29.8 % 40.1-51.0 MEAN CORPUSCULAR VOLUME (BEAKER) (test ybhs=723) 82.1 fL 79.0-92.2 MEAN CORPUSCULAR HEMOGLOBIN (BEAKER) (test 24.2 pg 25.7-32.2 tjta=831) MEAN CORPUSCULAR HEMOGLOBIN CONC (BEAKER) (test 29.5 GM/DL 32.3-36.5 kinh=763) RED CELL DISTRIBUTION WIDTH (BEAKER) (test 18.4 % 11.6-14.4 prgd=501) PLATELET COUNT (BEAKER) (test chsp=700) 369 K/CU MM 150-450 MEAN PLATELET VOLUME (BEAKER) (test bhyo=855) 9.6 fL 9.4-12.4 NUCLEATED RED BLOOD CELLS (BEAKER) (test 0 /100 WBC 0-0 nozm=361) NEUTROPHILS RELATIVE PERCENT (BEAKER) (test 72 % nudb=504) LYMPHOCYTES RELATIVE PERCENT (BEAKER) (test 17 % ijnm=275) MONOCYTES RELATIVE PERCENT (BEAKER) (test 8 % scgj=918) EOSINOPHILS RELATIVE PERCENT (BEAKER) (test 2 % uwpr=470) BASOPHILS RELATIVE PERCENT (BEAKER) (test 1 % hhkr=724) NEUTROPHILS ABSOLUTE COUNT (BEAKER) (test 7.98 K/ L 1.78-5.38 lpkl=885) LYMPHOCYTES ABSOLUTE COUNT (BEAKER) (test 1.92 K/ L 1.32-3.57 ekav=892) MONOCYTES ABSOLUTE COUNT (BEAKER) (test 0.86 K/ L 0.30-0.82 wcnp=134) EOSINOPHILS ABSOLUTE COUNT (BEAKER) (test 0.19 K/ L 0.04-0.54 ajed=604) BASOPHILS ABSOLUTE COUNT (BEAKER) (test 0.06 K/ L 0.01-0.08 vbrp=175) IMMATURE GRANULOCYTES-RELATIVE PERCENT (BEAKER) 1 % 0-1 (test uvme=4205) U/S, RENAL, [id number] 00:34:00Reason for exam:->Right renal massShould this be [...] MDReport Verified Date/Time: 11/14/2018 00:34:34 Reading Location: [address] Neuro Reading Room Electronically signed by: JEFF SANFORD MD on 2018 12:34 AMPOCT-GLUCOSE [id number] 21:25:00 Test Item Value Reference Range Comments POC-GLUCOSE METER (BEAKER) 155 mg/dL 70-110 TESTED AT [address] (test ljqx=3818) [facility] [address] POCT-GLUCOSE [id number] 17:31:00 Test Item Value Reference Range Comments POC-GLUCOSE METER (BEAKER) 144 mg/dL 70-110 TESTED AT [address] (test feqf=1868) [facility] [address] POCT-GLUCOSE [id number] 15:39:00 Test Item Value Reference Range Comments POC-GLUCOSE METER (BEAKER) 156 mg/dL 70-110 TESTED AT [address] (test jzmd=3643) [facility] [address] POCT-GLUCOSE [id number] 12:28:00 Test Item Value Reference Range Comments POC-GLUCOSE METER (BEAKER) 162 mg/dL 70-110 TESTED AT [address] (test iqug=7355) [facility] [address] POCT-GLUCOSE [id number] 11:40:00 Test Item Value Reference Range Comments POC-GLUCOSE METER (BEAKER) 159 mg/dL 70-110 TESTED AT [facility] [address] [facility] (test texi=2904) [facility] [address] HEMOGLOBIN [id number] 09:40:00 Test Item Value Reference Range Comments HEMOGLOBIN A1C (BEAKER) (test pjno=668) 6.5 % 4.3-6.1 POCT-GLUCOSE [id number] 08:19:00 Test Item Value Reference Range Comments POC-GLUCOSE METER (BEAKER) 162 mg/dL 70-110 TESTED AT [address] (test liiv=3527) [facility] [address] OSMOLALITY, [id number] 07:44:00 Test Item Value Reference Range Comments OSMOLALITY URINE (BEAKER) 381 mOsm/kg 40-1,400 This is a corrected result. (test piva=351) Previous result was 292 mOsm/kg on 11/13/2018 at [address] OSMOLALITY, [id number] 07:32:00 Test Item Value Reference Range Comments OSMOLALITY, SERUM (BEAKER) (test axdy=811) 292 mOsm/kg 275-295 CALCIUM, [id number] 07:20:00 Test Item Value Reference Range Comments CALCIUM IONIZED (BEAKER) (test pxlj=318) 1.11 mmol/L 1.12-1.27 PH, BLOOD (BEAKER) (test qlwb=8482) 7.44 TSH/FREE T4 IF [id number] 06:26:00 Test Item Value Reference Range Comments THYROID STIMULATING HORMONE (BEAKER) (test 2.50 uIU/mL 0.35-4.94 npbm=825) TROPONIN [id number] 06:04:00 Test Item Value Reference Range Comments TROPONIN I (BEAKER) (test cqss=052) < ng/mL 0.00-0.03 Troponin I (TnI) levels [...] failure, acidosis, acute neurological disease, and persistent tachyarrhythmia.[id number] 06:02:00 Test Item Value Reference Range Comments PHOSPHORUS (BEAKER) (test qyyd=444) 2.7 mg/dL 2.3-4.7 [id number] 06:02:00 Test Item Value Reference Range Comments MAGNESIUM (BEAKER) (test xukb=505) 2.3 mg/dL 1.6-2.6 COMPREHENSIVE METABOLIC [id number] 06:02:00 Test Item Value Reference Range Comments TOTAL PROTEIN (BEAKER) 6.9 gm/dL 6.0-8.3 (test gdcy=078) ALBUMIN (BEAKER) (test 3.6 g/dL 3.5-5.0 pwpj=5078) ALKALINE PHOSPHATASE 77 U/L 40-150 (BEAKER) (test flnp=450) BILIRUBIN TOTAL (BEAKER) 0.4 mg/dL 0.2-1.2 (test nehy=639) SODIUM (BEAKER) (test 132 meq/L 136-145 eazk=905) POTASSIUM (BEAKER) (test 4.7 meq/L 3.5-5.1 mwxl=550) CHLORIDE (BEAKER) (test 102 meq/L 98-107 lipp=274) CO2 (BEAKER) (test 22 meq/L 22-29 gruk=516) BLOOD UREA NITROGEN 36 mg/dL 7-21 (BEAKER) (test ugwi=353) CREATININE (BEAKER) (test 1.86 mg/dL 0.57-1.25 tsxo=302) GLUCOSE RANDOM (BEAKER) 144 mg/dL 70-105 (test wjfp=770) CALCIUM (BEAKER) (test 9.1 mg/dL 8.4-10.2 emlt=661) AST (SGOT) (BEAKER) (test 9 U/L 5-34 dyqt=199) ALT (SGPT) (BEAKER) (test 10 U/L 6-55 zujm=542) EGFR (BEAKER) (test 36 mL/min/1.73 sq m ESTIMATED GFR IS NOT szql=2673) ACCURATE CREATININE CLEARANCE IN PREDICTING GLOMERULAR FILTRATION RATE. ESTIMATED GFR IS NOT APPLICABLE FOR DIALYSIS PATIENTS. CREATINE KINASE (CK)2018-11-13 06:02:00 Test Item Value Reference Range Comments CREATINE KINASE TOTAL (BEAKER) (test hguh=248) 90 U/L 29-200 URINALYSIS W/ [id number] 06:00:00 Test Item Value Reference Range Comments COLOR (BEAKER) (test umof=183) Yellow CLARITY (BEAKER) (test yosh=782) Hazy SPECIFIC GRAVITY UA (BEAKER) (test fyza=040) 1.010 1.001-1.035 PH UA (BEAKER) (test wxnn=461) 5.5 5.0-8.0 PROTEIN UA (BEAKER) (test bvbj=512) Negative Negative GLUCOSE UA (BEAKER) (test pkqy=167) Negative Negative KETONES UA (BEAKER) (test rvcc=257) Negative Negative BILIRUBIN UA (BEAKER) (test ujrm=204) Negative Negative BLOOD UA (BEAKER) (test hkoy=987) Negative Negative NITRITE UA (BEAKER) (test akcl=951) Negative Negative LEUKOCYTE ESTERASE UA (BEAKER) (test jerw=951) Large Negative UROBILINOGEN UA (BEAKER) (test rdlo=692) 0.2 mg/dL 0.2-1.0 RBC UA (BEAKER) (test hfhv=781) 1 /HPF WBC UA (BEAKER) (test cxyl=062) 66 /HPF BACTERIA (BEAKER) (test dnwj=303) Many SQUAMOUS EPITHELIAL (BEAKER) (test mddz=152) 1 /HPF SOURCE(BEAKER) (test zhtk=9034) B-TYPE NATRIURETIC FACTOR (BNP)2018-11-13 05:58:00 Test Item Value Reference Range Comments B-TYPE NATRIURETIC PEPTIDE (BEAKER) (test nlip=828) 88 pg/mL 0-100 PROTHROMBIN [id number] 05:39:00 Test Item Value Reference Range Comments PROTIME (BEAKER) (test avli=735) 18.3 seconds 11.7-14.7 INR (BEAKER) (test ttvf=579) 1.5 <=5.9 RECOMMENDED COUMADIN/WARFARIN INR THERAPY RANGESSTANDARD DOSE: 2.0 - 3.0 Includes: PROPHYLAXIS forvenous thrombosis, systemic embolization; TREATMENT for venous thrombosis and/or pulmonary embolus.HIGH RISK: Target INR is 2.5-3.5 for patients with mechanical heart valves.CBC W/PLT COUNT & AUTO [id number] 05:31:00 Test Item Value Reference Range Comments WHITE BLOOD CELL COUNT (BEAKER) (test uvfz=910) 11.8 K/ L 3.5-10.5 RED BLOOD CELL COUNT (BEAKER) (test ammf=694) 3.44 M/ L 4.63-6.08 HEMOGLOBIN (BEAKER) (test wlks=749) 8.5 GM/DL 13.7-17.5 HEMATOCRIT (BEAKER) (test rjhw=091) 27.6 % 40.1-51.0 MEAN CORPUSCULAR VOLUME (BEAKER) (test eqqy=024) 80.2 fL 79.0-92.2 MEAN CORPUSCULAR HEMOGLOBIN (BEAKER) (test 24.7 pg 25.7-32.2 cuov=325) MEAN CORPUSCULAR HEMOGLOBIN CONC (BEAKER) (test 30.8 GM/DL 32.3-36.5 kdhd=698) RED CELL DISTRIBUTION WIDTH (BEAKER) (test 18.4 % 11.6-14.4 hyzx=699) PLATELET COUNT (BEAKER) (test kklj=126) 360 K/CU MM 150-450 MEAN PLATELET VOLUME (BEAKER) (test fnfl=881) 9.6 fL 9.4-12.4 NUCLEATED RED BLOOD CELLS (BEAKER) (test 0 /100 WBC 0-0 dzdf=781) NEUTROPHILS RELATIVE PERCENT (BEAKER) (test 66 % zdkn=375) LYMPHOCYTES RELATIVE PERCENT (BEAKER) (test 24 % dkiq=605) MONOCYTES RELATIVE PERCENT (BEAKER) (test 7 % ycos=473) EOSINOPHILS RELATIVE PERCENT (BEAKER) (test 2 % ptsp=899) BASOPHILS RELATIVE PERCENT (BEAKER) (test 1 % aloc=571) NEUTROPHILS ABSOLUTE COUNT (BEAKER) (test 7.75 K/ L 1.78-5.38 sckn=646) LYMPHOCYTES ABSOLUTE COUNT (BEAKER) (test 2.84 K/ L 1.32-3.57 zsip=170) MONOCYTES ABSOLUTE COUNT (BEAKER) (test 0.83 K/ L 0.30-0.82 ufee=499) EOSINOPHILS ABSOLUTE COUNT (BEAKER) (test 0.23 K/ L 0.04-0.54 sedx=158) BASOPHILS ABSOLUTE COUNT (BEAKER) (test 0.06 K/ L 0.01-0.08 gxdp=457) IMMATURE GRANULOCYTES-RELATIVE PERCENT (BEAKER) 1 % 0-1 (test cdyb=4268) PROTEIN, RANDOM [id number] 03:02:00 Test Item Value Reference Range Comments PROTEIN, URINE (BEAKER) (test mcnt=7379) < mg/dL 0-14 CREATININE, RANDOM [id number] 02:56:00 Test Item Value Reference Range Comments CREATININE URINE (BEAKER) (test dpwk=059) 63.6 mg/dL Reference Range: No NormalsSODIUM, RANDOM [id number] 02:56:00 Test Item Value Reference Range Comments SODIUM URINE (BEAKER) (test uyjs=415) 83 meq/L Reference Range: No NormalsHEMOGLOBIN AND [id number] 01:12:00 Test Item Value Reference Range Comments HEMOGLOBIN (BEAKER) (test idla=861) 8.8 GM/DL 13.7-17.5 HEMATOCRIT (BEAKER) (test ddtl=986) 28.1 % 40.1-51.0 POCT-GLUCOSE [id number] 21:32:00 Test Item Value Reference Range Comments POC-GLUCOSE METER (BEAKER) 142 mg/dL 70-110 TESTED AT [address] (test oyvj=0016) [place] [address] POCT-GLUCOSE [id number] 16:46:00 Test Item Value Reference Range Comments POC-GLUCOSE METER (BEAKER) 134 mg/dL 70-110 TESTED AT [address] (test ivoi=2177) [place] [address] HEMOGLOBIN AND [id number] 16:15:00 Test Item Value Reference Range Comments HEMOGLOBIN (BEAKER) (test mqvg=602) 8.8 GM/DL 13.7-17.5 HEMATOCRIT (BEAKER) (test hozd=786) 28.4 % 40.1-51.0 POCT-GLUCOSE [id number] 13:55:00 Test Item Value Reference Range Comments POC-GLUCOSE METER (BEAKER) 199 mg/dL 70-110 TESTED AT [address] (test edbr=7763) [place] [id number] HEMOGLOBIN AND [id number] 12:41:00 Test Item Value Reference Range Comments HEMOGLOBIN (BEAKER) (test bjis=454) 8.5 GM/DL 13.7-17.5 HEMATOCRIT (BEAKER) (test pawz=719) 28.1 % 40.1-51.0 [id number] 04:05:00 Test Item Value Reference Range Comments FERRITIN (BEAKER) (test bmij=647) 40 ng/mL 5-275 IRON, TIBC, % SAT. (WITHOUT FERRITIN)[id number] 03:43:00 Test Item Value Reference Range Comments IRON (BEAKER) (test khap=321) 51.0 ug/dL 40.0-160.0 TOTAL IRON BINDING CAPACITY (BEAKER) (test 374 ug/dL 250-450 ryjw=403) IRON % SATURATION (2) (BEAKER) (test znqx=1443) 14 % 20-55 RETICULOCYTE [id number] 03:41:00 Test Item Value Reference Range Comments RETICULOCYTE COUNT PCT (BEAKER) (test mtwa=939) 2.8 % 0.5-1.8 URINALYSIS W/ REFLEX URINE [id number] 03:33:00 Test Item Value Reference Range Comments COLOR (BEAKER) (test yygh=974) Light Yellow CLARITY (BEAKER) (test xvqf=347) Clear SPECIFIC GRAVITY UA (BEAKER) (test tzmv=142) 1.005 1.001-1.035 PH UA (BEAKER) (test mouu=719) 5.5 5.0-8.0 PROTEIN UA (BEAKER) (test waba=551) Negative Negative GLUCOSE UA (BEAKER) (test rbsz=209) Negative Negative KETONES UA (BEAKER) (test uwcs=738) Negative Negative BILIRUBIN UA (BEAKER) (test wofl=613) Negative Negative BLOOD UA (BEAKER) (test vdqj=936) Negative Negative NITRITE UA (BEAKER) (test ppch=900) Negative Negative LEUKOCYTE ESTERASE UA (BEAKER) (test kjky=276) Small Negative UROBILINOGEN UA (BEAKER) (test mfsb=005) 0.2 mg/dL 0.2-1.0 RBC UA (BEAKER) (test kvmw=519) 1 /HPF WBC UA (BEAKER) (test afvu=523) 10 /HPF SQUAMOUS EPITHELIAL (BEAKER) (test cipf=107) < /HPF HYALINE CASTS (BEAKER) (test gpzf=069) 1 /LPF CRYSTALS, URINE (BEAKER) (test piqs=0170) Rare AMORPHOUS CRYSTALS (BEAKER) (test onrr=0205) Occasional SOURCE(BEAKER) (test yuoi=4466) COMPREHENSIVE METABOLIC [id number] 01:37:00 Test Item Value Reference Range Comments TOTAL PROTEIN (BEAKER) 7.2 gm/dL 6.0-8.3 Specimen slightly (test xtnr=062) hemolyzed ALBUMIN (BEAKER) (test 3.8 g/dL 3.5-5.0 Specimen slightly dbvy=0123) hemolyzed ALKALINE PHOSPHATASE 82 U/L 40-150 (BEAKER) (test kdlx=095) BILIRUBIN TOTAL (BEAKER) 0.5 mg/dL 0.2-1.2 Specimen slightly (test ycam=035) hemolyzed SODIUM (BEAKER) (test 128 meq/L 136-145 xozg=513) POTASSIUM (BEAKER) (test 5.1 meq/L 3.5-5.1 Specimen slightly zazt=469) hemolyzed CHLORIDE (BEAKER) (test 99 meq/L 98-107 qbam=937) CO2 (BEAKER) (test 19 meq/L 22-29 ufwa=607) BLOOD UREA NITROGEN 36 mg/dL 7-21 (BEAKER) (test geim=087) CREATININE (BEAKER) (test 1.86 mg/dL 0.57-1.25 Specimen slightly ueen=700) hemolyzed GLUCOSE RANDOM (BEAKER) 117 mg/dL 70-105 (test qqaw=388) CALCIUM (BEAKER) (test 9.0 mg/dL 8.4-10.2 cxmh=767) AST (SGOT) (BEAKER) (test 13 U/L 5-34 Specimen slightly yidf=039) hemolyzed ALT (SGPT) (BEAKER) (test 10 U/L 6-55 Specimen slightly hazn=677) hemolyzed EGFR (BEAKER) (test 36 mL/min/1.73 sq m ESTIMATED GFR IS NOT gnaq=6221) ACCURATE CREATININE CLEARANCE IN PREDICTING GLOMERULAR FILTRATION RATE. ESTIMATED GFR IS NOT APPLICABLE FOR DIALYSIS PATIENTS. PROTHROMBIN [id number] 01:05:00 Test Item Value Reference Range Comments PROTIME (BEAKER) (test acre=565) 18.4 seconds 11.7-14.7 INR (BEAKER) (test nmzr=884) 1.5 <=5.9 RECOMMENDED COUMADIN/WARFARIN INR THERAPY RANGESSTANDARD DOSE: 2.0 - 3.0 Includes: PROPHYLAXIS forvenous thrombosis, systemic embolization; TREATMENT for venous thrombosis and/or pulmonary embolus.HIGH RISK: Target INR is 2.5-3.5 for patients with mechanical heart valves.CBC W/PLT COUNT & AUTO [id number] 00:57:00 Test Item Value Reference Range Comments WHITE BLOOD CELL COUNT (BEAKER) (test qdlk=026) 10.3 K/ L 3.5-10.5 RED BLOOD CELL COUNT (BEAKER) (test olmf=695) 3.37 M/ L 4.63-6.08 HEMOGLOBIN (BEAKER) (test dftr=578) 8.4 GM/DL 13.7-17.5 HEMATOCRIT (BEAKER) (test dvjk=443) 26.9 % 40.1-51.0 MEAN CORPUSCULAR VOLUME (BEAKER) (test vzye=460) 79.8 fL 79.0-92.2 MEAN CORPUSCULAR HEMOGLOBIN (BEAKER) (test 24.9 pg 25.7-32.2 zpwh=260) MEAN CORPUSCULAR HEMOGLOBIN CONC (BEAKER) (test 31.2 GM/DL 32.3-36.5 ymdu=416) RED CELL DISTRIBUTION WIDTH (BEAKER) (test 18.0 % 11.6-14.4 iuhl=221) PLATELET COUNT (BEAKER) (test mhtu=953) 334 K/CU MM 150-450 MEAN PLATELET VOLUME (BEAKER) (test pwkp=272) 9.3 fL 9.4-12.4 NUCLEATED RED BLOOD CELLS (BEAKER) (test 0 /100 WBC 0-0 oful=932) NEUTROPHILS RELATIVE PERCENT (BEAKER) (test 61 % ghae=739) LYMPHOCYTES RELATIVE PERCENT (BEAKER) (test 27 % litn=258) MONOCYTES RELATIVE PERCENT (BEAKER) (test 8 % cfad=565) EOSINOPHILS RELATIVE PERCENT (BEAKER) (test 3 % kshy=651) BASOPHILS RELATIVE PERCENT (BEAKER) (test 1 % nyrc=667) NEUTROPHILS ABSOLUTE COUNT (BEAKER) (test 6.30 K/ L 1.78-5.38 dicv=549) LYMPHOCYTES ABSOLUTE COUNT (BEAKER) (test 2.73 K/ L 1.32-3.57 mtpn=763) MONOCYTES ABSOLUTE COUNT (BEAKER) (test 0.85 K/ L 0.30-0.82 czsb=708) EOSINOPHILS ABSOLUTE COUNT (BEAKER) (test 0.30 K/ L 0.04-0.54 lgbq=665) BASOPHILS ABSOLUTE COUNT (BEAKER) (test 0.05 K/ L 0.01-0.08 ttpm=549) IMMATURE GRANULOCYTES-RELATIVE PERCENT (BEAKER) 1 % 0-1 (test jzpc=2448) POCT-GLUCOSE [id number] 21:06:00 Test Item Value Reference Range Comments POC-GLUCOSE METER (BEAKER) 138 mg/dL 70-110 TESTED AT [facility] [address] [facility] (test lqwt=0283) [facility] [address] BASIC METABOLIC [id number] 08:06:00 Test Item Value Reference Range Comments SODIUM (BEAKER) (test 140 meq/L 136-145 rgyf=728) POTASSIUM (BEAKER) (test 3.7 meq/L 3.5-5.1 gswq=930) CHLORIDE (BEAKER) (test 106 meq/L 98-107 drkw=101) CO2 (BEAKER) (test 26 meq/L 22-29 iykw=271) BLOOD UREA NITROGEN 18 mg/dL 7-21 (BEAKER) (test eisg=738) CREATININE (BEAKER) (test 0.93 mg/dL 0.57-1.25 ujys=841) GLUCOSE RANDOM (BEAKER) 118 mg/dL 70-105 (test ksfs=976) CALCIUM (BEAKER) (test 9.0 mg/dL 8.4-10.2 scnk=728) EGFR (BEAKER) (test 79 mL/min/1.73 sq m ESTIMATED GFR IS NOT xxop=9960) ACCURATE CREATININE CLEARANCE IN PREDICTING GLOMERULAR FILTRATION RATE. ESTIMATED GFR IS NOT APPLICABLE FOR DIALYSIS PATIENTS. CBC W/PLT COUNT & AUTO [id number] 07:34:00 Test Item Value Reference Range Comments WHITE BLOOD CELL COUNT (BEAKER) (test hdgu=606) 9.9 K/ L 3.5-10.5 RED BLOOD CELL COUNT (BEAKER) (test cmic=067) 3.81 M/ L 4.63-6.08 HEMOGLOBIN (BEAKER) (test aorp=128) 10.6 GM/DL 13.7-17.5 HEMATOCRIT (BEAKER) (test ieuz=404) 32.7 % 40.1-51.0 MEAN CORPUSCULAR VOLUME (BEAKER) (test soob=491) 85.8 fL 79.0-92.2 MEAN CORPUSCULAR HEMOGLOBIN (BEAKER) (test 27.8 pg 25.7-32.2 kgsr=749) MEAN CORPUSCULAR HEMOGLOBIN CONC (BEAKER) (test 32.4 GM/DL 32.3-36.5 jwdd=057) RED CELL DISTRIBUTION WIDTH (BEAKER) (test 16.5 % 11.6-14.4 jwmj=436) PLATELET COUNT (BEAKER) (test xyzg=204) 233 K/CU MM 150-450 MEAN PLATELET VOLUME (BEAKER) (test ipwv=587) 10.2 fL 9.4-12.4 NUCLEATED RED BLOOD CELLS (BEAKER) (test 0 /100 WBC 0-0 znrp=675) NEUTROPHILS RELATIVE PERCENT (BEAKER) (test 62 % hzsy=843) LYMPHOCYTES RELATIVE PERCENT (BEAKER) (test 26 % poic=318) MONOCYTES RELATIVE PERCENT (BEAKER) (test 7 % xwzr=949) EOSINOPHILS RELATIVE PERCENT (BEAKER) (test 3 % ozso=090) BASOPHILS RELATIVE PERCENT (BEAKER) (test 0 % jodo=269) NEUTROPHILS ABSOLUTE COUNT (BEAKER) (test 6.11 K/ L 1.78-5.38 lvaq=176) LYMPHOCYTES ABSOLUTE COUNT (BEAKER) (test 2.59 K/ L 1.32-3.57 yhfs=069) MONOCYTES ABSOLUTE COUNT (BEAKER) (test 0.73 K/ L 0.30-0.82 qgoy=448) EOSINOPHILS ABSOLUTE COUNT (BEAKER) (test 0.34 K/ L 0.04-0.54 zdug=101) BASOPHILS ABSOLUTE COUNT (BEAKER) (test 0.04 K/ L 0.01-0.08 mzhj=104) IMMATURE GRANULOCYTES-RELATIVE PERCENT (BEAKER) 1 % 0-1 (test vbbi=1368)
[2019-10-06 13:42] LABS: Absolute Lymphocytes (CBC) 1.4 K/uL (0.7-4.9); Hematocrit 28.6 % (39.6-49.0); MPV 8.1 fL (7.6-11.3); RBC Red Blood Cell Count 3.68 M/uL (4.33-5.43)
[2019-10-06 13:51] LABS: Protime INR 1.62
[2019-10-06 14:06] LABS: Anisocytosis 3+; Blood Morphology Comment NOTED (NOT SEEN); Platelet Estimate ADEQ; Urine White Blood Cell Casts OK
[2019-10-06 14:09] LABS: Albumin 3.1 g/dL (3.4-5.0); Bilirubin Total 0.2 mg/dL (0.2-1.0); Potassium 3.5 mmol/L (3.5-5.1); Protein, Total 6.2 g/dL (6.4-8.2)
[2019-10-06 15:15] LABS: Urine Appearance CLOUDY; Urine Blood 3+ (NEG); Urine Color DK YELLOW; Urine Glucose NEGATIVE (NEG); Urine Protein 3+ (NEG); Urine pH 6.5 (5.0-7.0)
[2019-10-06 15:26] LABS: Urine Microscopic Reflex ORDER UMIC
[2019-10-06 15:27] LABS: Urine Bacteria 20-50 /HPF (NONE SEEN); Urine RBC TNTC /HPF (NONE SEEN)
[2019-10-06 15:28] LABS: Urine Bilirubin 1+ (NEG); Urine Culture Reflex Order REFLEXED
[2019-10-06] MEDS ORDERED: NACL 0.9% IRR SOLN 2,000 ML IRR ONE (15:57)
--- NOTE | 2019-10-06 18:11 | ER ---
Nurse's Notes [facility] Name: Sam Suarez Age: 74 yrs Sex: Male : 1945 Arrival Date: 10/06/2019 Time: 13:00 Bed 14 Private MD: Diagnosis: Hematuria;Anemia in other chronic diseases classified elsewhere Presentation: 10/06 13:01 Presenting complaint: EMS states: pt from [facility] [place], with mei blood in urine, tw2 denies pain, vs stable. no small catheter in place. Transition of care: patient was received from another setting of care (long-term care facility), [facility] [place]. Onset of symptoms was October 06, 2019. Risk Assessment: Do you want to hurt yourself or someone else? Patient reports no desire to harm self or others. Initial Sepsis Screen: Does the patient meet any 2 criteria? No. Patient's initial sepsis screen is negative. Does the patient have a suspected source of infection? No. Patient's initial sepsis screen is negative. Care prior to arrival: None. 13:01 Method Of Arrival: EMS: [facility] tw2 13:01 Acuity: AMANDA 3 tw2 Triage Assessment: 13:03 General: Appears in no apparent distress. Behavior is calm, cooperative, appropriate tw2 for age. Pain: Denies pain. Historical: - Allergies: 13:08 Dilaudid; tw2 13:08 Metformin HCl; tw2 - Home Meds: 13:08 Colace 100 mg Oral cap 1 cap 2 times per day [Active]; tw2 18:30 Acetaminophen Oral as needed [Active]; albuterol sulfate 90 mcg/actuation Inhl HFAA 2 tw2 puffs every 6 hours [Active]; Aldactone 25 mg Oral tab 1 tab once daily [Active]; alprazolam 0.5 mg Oral TbDL 1 tab [Active]; Amaryl 2 mg Oral tab 1 tab once daily [Active]; aspirin 325 mg Oral tab 1 tab once daily [Active]; Betapace 80 mg Oral tab 1 tab 2 times per day [Active]; carvedilol 12.5 mg Oral tab 1 tab 2 times per day [Active]; Coreg 12.5 mg Oral tab 1 tab every 12 hours [Active]; DuoNeb 0.5 mg-3 mg(2.5 mg base)/3 mL Inhl nebu 3 mL q6h prn [Active]; Eliquis 5 mg Oral tab 1 tab 2 times per day [Active]; finasteride 5 mg Oral tab 1 tab once daily [Active]; gabapentin 300 mg Oral cap 3 times per day [Active]; glipizide 5 mg Oral tab 1 tab 2 times per day [Active]; hydralazine 10 mg Oral tab 1 tab 2 times per day [Active]; hydrocodone-acetaminophen 7.5-325 mg Oral tab 1 tab q6h prn for Pain [Active]; ipratropium-albuterol 0.5 mg-3 mg(2.5 mg base)/3 mL Inhl nebu 3 mL 4 times per day [Active]; Lasix 40 mg Oral tab once daily [Active]; Lasix 20 mg Oral tab 1 tab once daily [Active]; Lipitor 10 mg Oral tab 1 tab once daily [Active]; lisinopril 10 mg Oral tab 1 tab once daily [Active]; lisinopril 20 mg Oral tab twice a day [Active]; metolazone 5 mg Oral tab 1 tab once daily [Active]; tamsulosin 0.4 mg Oral cp24 1 cap once daily [Active]; sertraline 50 mg Oral tab 1 tab once daily [Active]; Nicoderm CQ 14 mg/24 hr transdermal pt24 1 patch once daily [Active]; Ranexa 500 mg Oral Tb12 2 times per day [Active]; ranolazine 1000 mg Oral 2 times per day [Active]; sertraline 100 mg Oral tab 1 tab once daily [Active]; - PMHx: 13:08 Major Depressive Disorder; Hypokalemia; Anxiety; CKD; Anemia; constipation; tw2 ATHEROSCLEROSIS; Atrial Fib; Hematuria; COPD; Diabetes - NIDDM; benign prostatic hyperplasia; B12 deficiency; CHF; Chronic pain; DYSPHAGIA; cognitive communication deficit; GERD; Hypertension; Hypomagnesemia; - PSHx: 13:08 Appendectomy; tw2 - Immunization history:: Adult Immunizations. - Social history:: Smoking status: . - Ebola Screening: : Patient denies travel to an Ebola-affected area in the 21 days before illness onset. Screenin:57 Abuse screen: Denies threats or abuse. Nutritional screening: No deficits noted. tw2 Tuberculosis screening: No symptoms or risk factors identified. Fall Risk Secondary diagnosis (15 points) impaired mobility. Assessment: 13:00 General: Appears in no apparent distress. Behavior is calm, cooperative, appropriate tw2 for age. Pain: Denies pain. Neuro: Level of Consciousness is awake, alert, obeys commands, Oriented to person, place, time, situation. Cardiovascular: Heart tones S1 S2 Patient's skin is warm and dry. Respiratory: Airway is patent Respiratory effort is even, unlabored, Respiratory pattern is regular, symmetrical, Breath sounds are clear bilaterally. GI: No signs and/or symptoms were reported involving the gastrointestinal system. Abdomen is round non-distended, Bowel sounds present X 4 quads. : Reports blood in urine. EENT: No signs and/or symptoms were reported regarding the EENT system. Derm: Skin is fragile, is thin, Skin is dry. Musculoskeletal: Range of motion: intact in all extremities. 13:09 Reassessment: provider at bedside at this time. tw2 14:00 Reassessment: Patient appears in no apparent distress at this time. No changes from tw2 previously documented assessment. Patient and/or family updated on plan of care and expected duration. Pain level reassessed. 14:48 Reassessment: pt able to use urinal at this time for urine sample, mei blood noted in tw2 approximately 20 ml of urine, sent to lab at this time, provider notified. 14:56 Reassessment: Patient appears in no apparent distress at this time. No changes from tw2 previously documented assessment. Patient and/or family updated on plan of care and expected duration. Pain level reassessed. 15:50 Reassessment: Patient appears in no apparent distress at this time. No changes from tw2 previously documented assessment. Patient and/or family updated on plan of care and expected duration. Pain level reassessed. 16:53 Reassessment: Patient appears in no apparent distress at this time. No changes from tw2 previously documented assessment. Patient and/or family updated on plan of care and expected duration. Pain level reassessed. 17:58 Reassessment: Patient appears in no apparent distress at this time. No changes from tw2 previously documented assessment. Patient and/or family updated on plan of care and expected duration. Pain level reassessed. 19:00 Reassessment: Patient appears in no apparent distress at this time. No changes from tw2 previously documented assessment. Patient and/or family updated on plan of care and expected duration. Pain level reassessed. 19:05 Reassessment: Patient appears in no apparent distress at this time. Patient and/or jb4 family updated on plan of care and expected duration. Pain level reassessed. Patient is alert, oriented x 3, equal unlabored respirations, skin warm/dry/pink. 20:20 Reassessment: Patient appears in no apparent distress at this time. Patient and/or jb4 family updated on plan of care and expected duration. Pain level reassessed. Patient is alert, oriented x 3, equal unlabored respirations, skin warm/dry/pink. PT transferred to receiving facility via [facility]. Vital Signs: 13:02 BP 143 / 74; Pulse 68; Resp 17; Temp 97.8(O); Pulse Ox 98% on R/A; Weight 108.86 kg tw2 (R); Height 6 ft. 1 in. (185.42 cm); Pain 0/10; 13:57 BP 154 / 77; Pulse 69; Resp 17; Pulse Ox 96% on R/A; tw2 14:55 BP 130 / 92; Pulse 63; Resp 17; Pulse Ox 97% on R/A; tw2 15:50 BP 140 / 73; Pulse 54; Resp 17; Pulse Ox 96% on R/A; tw2 16:52 BP 140 / 82; Pulse 60; Resp 17; Pulse Ox 99% on R/A; tw2 17:57 BP 136 / 84; Pulse 71; Resp 17; Pulse Ox 95% on R/A; tw2 18:59 BP 142 / 78; Pulse 53; Resp 17; Pulse Ox 97% on R/A; tw2 20:00 BP 144 / 77; Pulse 57; Resp 18; Pulse Ox 98% on R/A; jb4 13:02 Body Mass Index 31.66 (108.86 kg, 185.42 cm) tw2 ED Course: 13:00 Patient arrived in ED. tw2 13:00 Bed in low position. Call light in reach. Side rails up X2. 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 Pulse tw2 ox on. NIBP on. 13:01 Kunal Nieto MD is Attending Physician. tw4 13:02 Triage completed. tw2 13:02 Arm band placed on. tw2 13:10 Moreno, Cinda, RN is Primary Nurse. tw2 16:51 3-way catheter inserted, using sterile technique, 18 Fr. Shawn Otero served as tw2 associate manager, NS irrigation used at this time, output on initial insertion was 250 mei bloody urine. 17:00 Inserted saline lock: 20 gauge in right antecubital area, using aseptic technique. 3 18:59 Report given to CARA Collado. tw2 20:22 No provider procedures requiring assistance completed. Patient transferred, IV remains jb4 in place. Administered Medications: No medications were administered Intake: 16:52 mei blood noted tw2 18:19 mei bloody urine noted during bladder irrigation. tw2 18:58 mei blood still noted, 3L irrigation with NS completed at this time. tw2 Output: 16:52 Urine: 250ml (Small); Total: 250ml. tw2 17:00 Urine: 750ml (Small); Total: 1000ml. dh3 17:31 Urine: 1000ml (Small); Total: 2000ml. 3 18:19 Urine: 700ml (Small); Total: 2700ml. tw2 18:58 Urine: 750ml (Small); Total: 3450ml. tw2 16:52 mei blood noted tw2 18:19 mei bloody urine noted during bladder irrigation. tw2 18:58 mei blood still noted, 3L irrigation with NS completed at this time. tw2 Outcome: 18:09 ER care complete, transfer ordered by . tw4 20:22 Transferred by ground EMS [facility]. 4 20:22 Condition: stable 20:22 Discharge instructions given to patient, Instructed on the need for transfer, Demonstrated understanding of instructions. 20:23 Patient left the ED. 4 Signatures: Cinda Moreno RN RN tw2 Tobias Cole RN RN jb4 Shanna Felipe 3 Kunal Nieto MD MD 4 Corrections: (The following items were deleted from the chart) 14:57 14:47 UA MICROSCOPIC+U.LAB.BRZ drawn and sent. tw2 EDMS
--- NOTE | 2019-10-06 18:11 | EDPHYS ---
Physician Documentation [facility] Name: Sam Suarez Age: 74 yrs Sex: Male : 1945 Arrival Date: 10/06/2019 Time: 13:00 Bed 14 Private MD: ED Physician Kunal Nieto HPI: 10/06 21:37 This 74 yrs old Male presents to ER via EMS with complaints of Blood in urine.tw4 21:37 The patient presents with urinary symptoms, hematuria. Onset: The symptoms/episode tw4 began/occurred today. Modifying factors: The symptoms are alleviated by nothing, the symptoms are aggravated by nothing. Associated signs and symptoms: The patient has no apparent associated signs or symptoms. The patient has not experienced similar symptoms in the past. 21:40 Severity of symptoms: At their worst the symptoms were moderate, in the emergency tw4 department the symptoms are unchanged. The patient has been recently seen at the [facility] Emergency Department, this week. Historical: - Allergies: 13:08 Dilaudid; tw2 13:08 Metformin HCl; tw2 - Home Meds: 13:08 Colace 100 mg Oral cap 1 cap 2 times per day [Active]; tw2 18:30 Acetaminophen Oral as needed [Active]; albuterol sulfate 90 mcg/actuation Inhl HFAA 2 tw2 puffs every 6 hours [Active]; Aldactone 25 mg Oral tab 1 tab once daily [Active]; alprazolam 0.5 mg Oral TbDL 1 tab [Active]; Amaryl 2 mg Oral tab 1 tab once daily [Active]; aspirin 325 mg Oral tab 1 tab once daily [Active]; Betapace 80 mg Oral tab 1 tab 2 times per day [Active]; carvedilol 12.5 mg Oral tab 1 tab 2 times per day [Active]; Coreg 12.5 mg Oral tab 1 tab every 12 hours [Active]; DuoNeb 0.5 mg-3 mg(2.5 mg base)/3 mL Inhl nebu 3 mL q6h prn [Active]; Eliquis 5 mg Oral tab 1 tab 2 times per day [Active]; finasteride 5 mg Oral tab 1 tab once daily [Active]; gabapentin 300 mg Oral cap 3 times per day [Active]; glipizide 5 mg Oral tab 1 tab 2 times per day [Active]; hydralazine 10 mg Oral tab 1 tab 2 times per day [Active]; hydrocodone-acetaminophen 7.5-325 mg Oral tab 1 tab q6h prn for Pain [Active]; ipratropium-albuterol 0.5 mg-3 mg(2.5 mg base)/3 mL Inhl nebu 3 mL 4 times per day [Active]; Lasix 40 mg Oral tab once daily [Active]; Lasix 20 mg Oral tab 1 tab once daily [Active]; Lipitor 10 mg Oral tab 1 tab once daily [Active]; lisinopril 10 mg Oral tab 1 tab once daily [Active]; lisinopril 20 mg Oral tab twice a day [Active]; metolazone 5 mg Oral tab 1 tab once daily [Active]; tamsulosin 0.4 mg Oral cp24 1 cap once daily [Active]; sertraline 50 mg Oral tab 1 tab once daily [Active]; Nicoderm CQ 14 mg/24 hr transdermal pt24 1 patch once daily [Active]; Ranexa 500 mg Oral Tb12 2 times per day [Active]; ranolazine 1000 mg Oral 2 times per day [Active]; sertraline 100 mg Oral tab 1 tab once daily [Active]; - PMHx: 13:08 Major Depressive Disorder; Hypokalemia; Anxiety; CKD; Anemia; constipation; tw2 ATHEROSCLEROSIS; Atrial Fib; Hematuria; COPD; Diabetes - NIDDM; benign prostatic hyperplasia; B12 deficiency; CHF; Chronic pain; DYSPHAGIA; cognitive communication deficit; GERD; Hypertension; Hypomagnesemia; - PSHx: 13:08 Appendectomy; tw2 - Immunization history:: Adult Immunizations. - Social history:: Smoking status: . - Ebola Screening: : Patient denies travel to an Ebola-affected area in the 21 days before illness onset. ROS: 21:37 Constitutional: Negative for fever, chills, and weight loss, Eyes: Negative for injury, tw4 pain, redness, and discharge, Cardiovascular: Negative for chest pain, palpitations, and edema, Respiratory: Negative for shortness of breath, cough, wheezing, and pleuritic chest pain, Abdomen/GI: Negative for abdominal pain, nausea, vomiting, diarrhea, and constipation, Back: Negative for injury and pain, MS/Extremity: Negative for injury and deformity, Skin: Negative for injury, rash, and discoloration. 21:37 : Positive for hematuria. Exam: 21:37 Constitutional: This is a well developed, well nourished patient who is awake, alert, tw4 and in no acute distress. Head/Face: Normocephalic, atraumatic. Chest/axilla: Normal chest wall appearance and motion. Nontender with no deformity. No lesions are appreciated. Cardiovascular: Regular rate and rhythm with a normal S1 and S2. No gallops, murmurs, or rubs. Normal PMI, no JVD. No pulse deficits. Respiratory: Lungs have equal breath sounds bilaterally, clear to auscultation and percussion. No rales, rhonchi or wheezes noted. No increased work of breathing, no retractions or nasal flaring. Abdomen/GI: Soft, non-tender, with normal bowel sounds. No distension or tympany. No guarding or rebound. No evidence of tenderness throughout. Back: No spinal tenderness. No costovertebral tenderness. Full range of motion. Male : Normal genitalia with no discharge or lesions. MS/ Extremity: Pulses equal, no cyanosis. Neurovascular intact. Full, normal range of motion. Neuro: Awake and alert, GCS 15, oriented to person, place, time, and situation. Cranial nerves II-XII grossly intact. Motor strength 5/5 in all extremities. Sensory grossly intact. Cerebellar exam normal. Normal gait. Vital Signs: 13:02 BP 143 / 74; Pulse 68; Resp 17; Temp 97.8(O); Pulse Ox 98% on R/A; Weight 108.86 kg tw2 (R); Height 6 ft. 1 in. (185.42 cm); Pain 0/10; 13:57 BP 154 / 77; Pulse 69; Resp 17; Pulse Ox 96% on R/A; tw2 14:55 BP 130 / 92; Pulse 63; Resp 17; Pulse Ox 97% on R/A; tw2 15:50 BP 140 / 73; Pulse 54; Resp 17; Pulse Ox 96% on R/A; tw2 16:52 BP 140 / 82; Pulse 60; Resp 17; Pulse Ox 99% on R/A; tw2 17:57 BP 136 / 84; Pulse 71; Resp 17; Pulse Ox 95% on R/A; tw2 18:59 BP 142 / 78; Pulse 53; Resp 17; Pulse Ox 97% on R/A; tw2 20:00 BP 144 / 77; Pulse 57; Resp 18; Pulse Ox 98% on R/A; jb4 13:02 Body Mass Index 31.66 (108.86 kg, 185.42 cm) tw2 MDM: 13:01 Patient medically screened. tw4 21:37 Differential diagnosis: nonspecific abdominal pain, appendicitis, UTI, urinary tw4 retention, prostatitis. Data reviewed: vital signs, nurses notes. Data reviewed: lab test result(s), CBC, electrolytes, hepatic panel. Data interpreted: Pulse oximetry: Interpretation: normal. Counseling: I had a detailed discussion with the patient and/or guardian regarding: the historical points, exam findings, and any diagnostic results supporting the discharge/admit diagnosis, lab results. ED course: transferred to [facility] due to higher level of care. 10/06 13:12 Order name: CBC with Diff; Complete Time: 14:38 tw4 10/06 13:12 Order name: CMP; Complete Time: 14:38 tw4 10/06 13:12 Order name: PT-INR; Complete Time: 14:38 tw4 10/06 13:12 Order name: Ptt, Activated; Complete Time: 14:38 tw4 10/06 14:07 Order name: CBC Smear Scan; Complete Time: 14:38 EDCA 10/06 13:12 Order name: Urine Dipstick-Ancillary (obtain specimen); Complete Time: 14:47 tw4 10/06 14:47 Order name: UA; Complete Time: 18:04 mg2 10/06 15:29 Order name: Urine Microscopic Only; Complete Time: 18:04 EDCA 10/06 15:30 Order name: Urine Culture EDCA 10/06 16:10 Order name: [place]heta-Two way; Complete Time: 16:50 tw4 10/06 16:25 Order name: Bladder Irrigation; Complete Time: 16:50 tw2 Administered Medications: No medications were administered Disposition: 10/06/19 18:09 Transfer ordered to [facility]. Diagnosis are Hematuria, Anemia in other chronic diseases classified elsewhere. - Reason for transfer: Higher level of care. - Accepting physician is . - Condition is Stable. - Problem is an ongoing problem. - Symptoms are unchanged. Signatures: Dispatcher [employer] EDCA Cinda Moreno, RN RN tw2 Tobias Cole, RN RN jb4 Kunal Nieto MD MD tw4 Corrections: (The following items were deleted from the chart) 14:57 13:13 UA MICROSCOPIC+U.LAB.BRZ ordered. [facility] EDCA 20:23 18:09 10/06/2019 18:09 Transfer ordered to [facility]. Diagnosis is jb4 Hematuria; Anemia in other chronic diseases classified elsewhere. Reason for transfer: Higher level of care. Accepting physician is . Condition is Stable. Problem is an ongoing problem. Symptoms are unchanged. tw4
[2019-10-06 21:04] VITALS: TEMP 97.8
[2019-10-06 21:13] VITALS: BP 144/77; O2SAT 98
== END 2019-10-06 20:23 | disposition short-term general hospital (02) ==
LOC: ER 12:56
DX: R31.9 Hematuria, unspecified (principal); D63.8 Anemia in other chronic diseases classified elsewhere; E11.9 Type 2 diabetes mellitus without complications; I10 Essential (primary) hypertension; J44.9 Chronic obstructive pulmonary disease, unspecified
CPT/HCPCS: 36415; 80053; 81003; 81015; 85025; 85610; 85730; 87086; 87088; 99285

== ENCOUNTER 2020-09-29 12:17 | Inpatient (IN) | payer OTHER ==
--- OUTSIDE RECORDS SUMMARY | 2020-09-29 12:20 | XMS REPORT | Clinical Summary ---
:1945 Author Organization [facility] Address [address] [place] [address] Care Team Providers Name Role Phone Alonzo Altman MD Primary Care Provider Allergies Active Allergy Reactions Severity Noted Date Comments Hydromorphone (Bulk) Other (See Comments) 10/12/2013 "hot and cold sweat" Metformin Hives, Itching Medium 11/11/2018 Medications Medication Sig Dispensed Refills Start Date End Date Status lisinopril Take 20 mg by 0 Activ e (PRINIVIL,ZESTRIL) 20 mouth 2 (two) MG tablet times daily . carvedilol (COREG) Take 1 tablet 60 tablet 0 01/19/2019 Active 12.5 MG tablet (12.5 mg total) by mouth 2 (two) times daily with breakfast and dinner. gabapentin Take 1 capsule 90 capsule 0 01/19/2019 Ac tive (NEURONTIN) 300 MG (300 mg total) by capsule mouth 3 (three) times daily. glimepiride (AMARYL) Take 1 tablet (2 30 tablet 0 01/19/2019 Active 2 MG tablet mg total) by mouth every morning before breakfast. Additional Information Patient taking differently: 2 mg Oral 2 times daily, Reported on 10/01/2019 6:49 PM sertraline (ZOLOFT) Take 1 tablet (50 30 tablet 0 01/19/2019 Active 50 MG tablet mg total) by mouth daily. ranolazine (RANEXA) Take 1 tablet 60 tablet 0 01/19/2019 Active 1,000 mg SR tablet (1,000 mg total) by mouth 2 (two) times daily. sotalol AF (BETAPACE Take 1 tablet (80 60 tablet 0 01/19/2019 Active AF) 80 MG tablet mg total) by mouth 2 (two) times daily. tamsulosin (FLOMAX) Take 1 capsule 30 capsule 0 01/19/2019 Active 0.4 mg Cap 24 hr (0.4 mg total) by capsule mouth daily. fluticasone-umeclidi Inhale 1 puff by 0 Active n-vilanter (TRELEGY mouth via inhaler ELLIPTA) 100-62.5-25 daily. mcg DsDv spironolactone Take 25 mg by 0 A ctive (ALDACTONE) 25 MG mouth daily. tablet docusate sodium Take 100 mg by 0 Active (COLACE) 100 MG mouth 2 (two) capsule times daily. finasteride Take 5 mg by mouth 0 Active (PROSCAR) 5 mg daily. tablet ipratropium-albutero Take 3 mLs by 0 Active l (DUO-NEB) 0.5 mg-3 nebulization 4 mg(2.5 mg base)/3 mL (four) times nebulizer solution daily. albuterol HFA Inhale 1 puff by 0 Active (VENTOLIN HFA) 90 mouth via inhaler mcg/actuation every 6 (six) inhaler hours as needed for Wheezing. omeprazole Take 20 mg by 0 10/01/ Disco ntinued (PRILOSEC) 20 MG mouth daily. 2020 capsule promethazine Take 25 mg by 0 10/01/ Dis continued (PHENERGAN) 25 MG mouth every 8 2020 tablet (eight) hours as needed for Nausea. LACTULOSE ORAL Take by mouth 2 0 10/01/ Discontinued (two) times daily 2020 (E rror) as needed. budesonide/formotero Inhale 2 puffs by 0 0 10/01/ Discontinued l fumarate mouth via inhaler 2020 ( Error) (SYMBICORT INHL) 4 (four) times daily. polyethylene glycol Take 17 g by 0 10/01/ Discontinued (MIRALAX) 17 mouth. 2020 gram/dose powder atorvastatin Take 1 tablet (10 30 tablet 0 01/19/201901/18/ (LIPITOR) 10 MG mg total) by mouth 2020 tablet nightly. niacin (NIASPAN) Take 1 tablet 30 tablet 0 01/19/201910/01/ Discontinued 1000 MG CR tablet (1,000 mg total) 2020 (Error) by mouth nightly. apixaban (ELIQUIS) 5 Take 1 tablet (5 60 tablet 0 01/19/2019 0 10/05/ Discontinued mg Tab tablet mg total) by mouth 2020 (Stop Taking at 2 (two) times Discha rge) daily. ferrous sulfate 325 Take 325 mg by 0 10/01 / Discontinued (65 FE) MG tablet mouth daily with 2020 breakfast. melatonin 5 mg Tab Take 5 mg by mouth 0 / Discontinued tablet nightly. 2020 aspirin 325 MG Take 325 mg by 0 10/05/ Discontinued tablet mouth daily. 2020 (Stop T aking at Discharge) hydrALAZINE Take 10 mg by 0 10/05/ Disc ontinued (APRESOLINE) 10 MG mouth 2 (two) 2020 (Stop Taking at tablet times daily. Dischar ge) metOLazone Take 5 mg by mouth 0 10/05/ Discontinued (ZAROXOLYN) 5 MG daily. 2020 (St op Taking at tablet Discharge) nicotine (NICODERM Place 1 patch onto 0 / Discontinued CQ) 14 mg/24 hr the skin daily. 2020 patch HYDROcodone-acetamin Take 1 tablet by 0 / Discontinued ophen (NORCO mouth every 6 2019 (St op Taking at 7.5-325) 7.5-325 mg (six) hours as Discharge) per tablet needed for Pain. apixaban (ELIQUIS) Take 1 tablet (2.5 60 tablet 0 10/05/2019 0 05/ 2.5 mg Tab tablet mg total) by mouth 202 0 2 (two) times daily for 30 days. ferrous sulfate 325 Take 1 tablet (325 90 tablet 0 10/06/2019// (65 FE) MG tablet mg total) by mouth 202 0 daily with breakfast for 90 days. melatonin 5 mg Tab Take 1 tablet (5 30 tablet 0 10/05/2019 02/ 05/ tablet mg total) by mouth 2020 nightly for 30 days. 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 Aspiration pneumonia 11/25/2018 GI bleed 11/11/2018 Shortness of breath 12/23/2017 HTN (hypertension) 02/27/2017 CAD (coronary artery disease) 02/27/2017 Hyperlipidemia 02/27/2017 COPD (chronic obstructive pulmonary disease) 7 Atrial flutter 02/27/2017 Controlled type 2 diabetes mellitus, without long-term current use of 02/27/2017 insulin Tricuspid regurgitation 02/27/2017 Chest pain 11/09/2013 Encounters Date Type Specialty Care Team Description 10/06/2019 - Hospital Encounter General Internal Bjorn Combs hematuria (Primary Dx); 10/08/2019 Medicine MD Ambreen KATHLEEN (acute kidney injury) ([facility]) Zabrina Simpson MD Sutaria, Ayush S, MD 10/06/2019 Travel 10/06/2019 Documentation Internal Medicine Ambreen Combs MD 10/01/2019 - Hospital Encounter Cardiology Joseph Robles h ematuria (Primary Dx); 10/05/2019 MD Elías Tumor of right kidney with thrombus of I VC ([facility]); Ruchi Rivera KATHLEEN (acute k idney injury) ([facility]); Renal cell carcinoma, unspecified latera lity ([facility]) Luciano Aguiar MD 10/01/2019 Travel 10/01/2019 Orders Only General Internal Medicine after 09/29/2019 Family History Medical History Relation Name Comments Heart disease Brother Cancer Mother Diabetes Mother Hypertension Mother Cancer Sister Relation Name Status Comments Brother Mother Sister Social History Tobacco Use Types Packs/Day Years Used Date Former Smoker Cigarettes 1 Smokeless Tobacco: Never Used Tobacco Cessation: Ready to Quit: No Comments: in 2017 Alcohol Use Drinks/Week oz/Week Comments No Sex Assigned at Date Recorded Not on file Last Filed Vital Signs Vital Sign Reading Time Taken Comments Blood Pressure 146/70 10/08/2019 4:39 PM BATCH DUMPER Pulse 69 10/08/2019 4:39 PM BATCH DUMPER Temperature 36.2 C (97.1 F) 10/08/2019 4:39 PM BATCH DUMPER Respiratory Rate 18 10/08/2019 4:39 PM BATCH DUMPER Oxygen Saturation 100% 10/08/2019 4:39 PM BATCH DUMPER Inhaled Oxygen Concentration 21% 10/08/2019 8:59 AM BATCH DUMPER Weight 108.9 kg (240 lb) 10/06/2019 9:00 PM BATCH DUMPER Height 185.4 cm (6' 1") 10/06/2019 9:00 PM BATCH DUMPER Body Mass Index 31.66 10/06/2019 9:00 PM BATCH DUMPER Plan of Treatment Health Maintenance Due Date Last Done Comments DIABETIC EYE EXAM 1955 DIABETIC FOOT EXAM 1955 URINE MICROALBUMIN 1955 PNEUMOCOCCAL 65+ YRS (1 of 1 - 2008 [id number]) MEDICARE ANNUAL WELLNESS (YEAR 2 or FIRST 08/01/2009 YEAR if no IPPE) HEMOGLOBIN A1C 05/13/2019 11/13/2018, 04/27/2012 INFLUENZA VACCINE (#1) 2020 08/02/2019 Implants Implanted Type Area Director Dermatology Device Shelf Model / Identifier Expiration Serial / Date Lot Device Clsr Candence Mynx 5fr [id number] - [id number] Cardiovascular Right: ACCESS CLOSURE 10/30/2019 [id number] / Implanted: Qty: 1 on 12/23/2017 by Emmanuel Schmidt MD at [facility] [employer] / [id number] Description:RFA Procedures Procedure Name Priority Date/Time Associated Comments Diagnosis RHYTHM STRIP - SCAN 10/09/2019 4:20 PM BATCH DUMPER POCT-GLUCOSE METER Routine 10/08/2019 11:39 Resul ts for this AM BATCH DUMPER procedure are i n the results section. CBC W/PLT COUNT & Routine 10/08/2019 3:36 Result s for this AUTO DIFFERENTIAL AM BATCH DUMPER procedure are in the results section. CBC W/PLT COUNT & Routine 10/08/2019 3:36 Result s for this AUTO DIFFERENTIAL AM BATCH DUMPER procedure are in the results section. BASIC METABOLIC PANEL Routine 10/08/2019 3:36 Re sults for this (7) AM BATCH DUMPER procedure are i n the results section. US RENAL COMPLETE Routine 10/08/2019 1:20 Result s for this AM BATCH DUMPER procedure are i n the results section. POCT-GLUCOSE METER Routine 10/07/2019 8:56 Resul ts for this PM BATCH DUMPER procedure are i n the results section. POCT-GLUCOSE METER Routine 10/07/2019 6:53 Resul ts for this PM BATCH DUMPER procedure are i n the results section. RHYTHM STRIP - SCAN 10/07/2019 3:11 PM BATCH DUMPER POCT-GLUCOSE METER Routine 10/07/2019 7:34 Resul ts for this AM BATCH DUMPER procedure are i n the results section. CBC W/PLT COUNT & Routine 10/07/2019 4:04 Result s for this AUTO DIFFERENTIAL AM BATCH DUMPER procedure are in the results section. CBC W/PLT COUNT & Routine 10/07/2019 4:04 Result s for this AUTO DIFFERENTIAL AM BATCH DUMPER procedure are in the results section. BASIC METABOLIC PANEL Routine 10/07/2019 4:04 Re sults for this (7) AM BATCH DUMPER procedure are i n the results section. POCT-GLUCOSE METER Routine 10/07/2019 12:17 Resul ts for this AM BATCH DUMPER procedure are i n the results section. POCT-GLUCOSE METER Routine 10/05/2019 12:14 Resul ts for this PM BATCH DUMPER procedure are i n the results section. POCT-GLUCOSE METER Routine 10/05/2019 7:54 Resul ts for this AM BATCH DUMPER procedure are i n the results section. BASIC METABOLIC PANEL Routine 10/05/2019 4:29 Re sults for this (7) AM BATCH DUMPER procedure are i n the results section. HEMOGLOBIN AND Routine 10/05/2019 4:29 Results f or this HEMATOCRIT AM BATCH DUMPER procedure are i n the results section. POCT-GLUCOSE METER Routine 10/04/2019 9:18 Resul ts for this PM BATCH DUMPER procedure are i n the results section. POCT-GLUCOSE METER Routine 10/04/2019 4:57 Resul ts for this PM BATCH DUMPER procedure are i n the results section. POCT-GLUCOSE METER Routine 10/04/2019 7:00 Resul ts for this AM BATCH DUMPER procedure are i n the results section. B-TYPE NATRIURETIC Routine 10/04/2019 5:36 Resul ts for this FACTOR (BNP) AM BATCH DUMPER procedure are i n the results section. CBC (HEMOGRAM ONLY) Routine 10/04/2019 5:36 Resu lts for this AM BATCH DUMPER procedure are i n the results section. POCT-GLUCOSE METER Routine 10/03/2019 9:20 Resul ts for this PM BATCH DUMPER procedure are i n the results section. POCT-GLUCOSE METER Routine 10/03/2019 12:02 Resul ts for this PM BATCH DUMPER procedure are i n the results section. POCT-GLUCOSE METER Routine 10/03/2019 7:45 Resul ts for this AM BATCH DUMPER procedure are i n the results section. CBC (HEMOGRAM ONLY) Routine 10/03/2019 4:19 Resu lts for this AM BATCH DUMPER procedure are i n the results section. BASIC METABOLIC PANEL Routine 10/03/2019 4:19 Re sults for this (7) AM BATCH DUMPER procedure are i n the results section. POCT-GLUCOSE METER Routine 10/02/2019 11:39 Resul ts for this PM BATCH DUMPER procedure are i n the results section. CT CHEST WITH IV Routine 10/02/2019 5:14 Results for this CONTRAST PM BATCH DUMPER procedure are i n the results section. 2D ECHO W/ DOPPLER Routine 10/02/2019 12:30 Resul ts for this (CW/PW/COLOR) PM BATCH DUMPER procedure are in the results section. FERRITIN Routine 10/02/2019 6:14 Results for this AM BATCH DUMPER procedure are i n the results section. IRON, TIBC, % SAT. Routine 10/02/2019 6:14 Resul ts for this (WITHOUT FERRITIN) AM BATCH DUMPER procedure are in the results section. CBC (HEMOGRAM ONLY) Routine 10/02/2019 6:14 Resu lts for this AM BATCH DUMPER procedure are i n the results section. BASIC METABOLIC PANEL Routine 10/02/2019 6:14 Re sults for this (7) AM BATCH DUMPER procedure are i n the results section. POCT-GLUCOSE METER Routine 10/01/2019 9:15 Resul ts for this PM BATCH DUMPER procedure are i n the results section. CBC (HEMOGRAM ONLY) Routine 10/01/2019 5:04 Resu lts for this PM BATCH DUMPER procedure are i n the results section. PROTHROMBIN TIME/INR Routine 10/01/2019 5:04 Res ults for this PM BATCH DUMPER procedure are i n the results section. PT/APTT Routine 10/01/2019 5:04 Results for this PM BATCH DUMPER procedure are i n the results section. HEPATIC FUNCTION Routine 10/01/2019 5:04 Results for this PANEL PM BATCH DUMPER procedure are i n the results section. BASIC METABOLIC PANEL Routine 10/01/2019 5:04 Re sults for this (7) PM BATCH DUMPER procedure are i n the results section. URINALYSIS W/ REFLEX Routine 10/01/2019 5:03 Res ults for this URINE CULTURE PM BATCH DUMPER procedure are in the results section. POCT-GLUCOSE METER Routine 10/01/2019 4:22 Resul ts for this PM BATCH DUMPER procedure are i n the results section. ECG 12-LEAD Routine 10/01/2019 3:18 PM BATCH DUMPER Procedure Note - Interface, External Ris In - 10/01/2019 3:24 PM BATCH DUMPER Ventricular Rate 78 BPM Atrial Rate 101 BPM QRS Duration 96 ms Q-T Interval 418 ms QTC Calculation(Bazett) 476 ms R [place] -51 degrees T [place] 73 degrees Atrial fibrillation Left anterior fascicular blo ck Nonspecific ST and T wave ab normality Abnormal ECG When compared with ECG of 10:29, Atrial fibrillation has repl aced Sinus rhythm Left anterior fascicular blo ck is now Present ECG 12-LEAD Routine 10/01/2019 3:18 PM BATCH DUMPER Resu lts for this procedure are in the results section . after 09/29/2019 Results RHYTHM STRIP - SCAN (10/09/2019 4:20 PM BATCH DUMPER)Only the most recent of2 results within the time period is included. Narrative Performed At This result has an attachment that is no t available. POC-Glucose meter (10/08/2019 11:39 AM BATCH DUMPER)Only the most recent of16 results within the time period is included. POC-Glucose Meter 163 (H)Comment: : 70 - 110 mg/dL [facility] TESTED AT [address], [address]: Tight Cooper/Technici an ID = [id number] for KAMI DEVINE Specimen Blood Performing Organization Address City/State/Zipcode Phone Number [address] [address] CENTER CBC with platelet count + automated diff (10/08/2019 3:36 AM BATCH DUMPER)Only the most recent of2 resultswithin the time period is included. Pathologist Sig nature WBC 8.0 3.5 - 10.5 [facility] K/L [facility] RBC 3.53 (L) 4.63 - 6.08 [facility] M/L [facility] Hemoglobin 8.7 (L) 13.7 - 17.5 [facility] GM/DL [facility] [place] Hematocrit 29.5 (L) 40.1 - 51.0 % [facility] MCV 83.6 79.0 - 92.2 fL [facility] MCH 24.6 (L) 25.7 - 32.2 pg [facility] MCHC 29.5 (L) 32.3 - 36.5 [facility] GM/DL [facility] RDW 24.4 (H) 11.6 - 14.4 % [facility] Platelets 262 150 - 450 K/CU [facility] MPV 10.5 9.4 - 12.4 fL [facility] nRBC 0 0 - 0 /100 WBC [facility] % Neutros 68 % [facility] % Lymphs 20 % [facility] % Monos 8 % [facility] % Eos 4 % [facility] % Baso 1 % [facility] # Neutros 5.42 (H) 1.78 - 5.38 [facility] # Lymphs 1.58 1.32 - 3.57 [facility] # Monos 0.61 0.30 - 0.82 [facility] # Eos 0.28 0.04 - 0.54 [facility] # Baso 0.05 0.01 - 0.08 [facility] Immature 0 0 - 1 % [facility] Granulocytes-[facility] Specimen Blood Performing Organization Address City/State/Zipcode Phone Number [place] [phone] [place] [address] CENTER Basic metabolic panel (10/08/2019 3:36 AM BATCH DUMPER)Only the most recent of6 results within the time period is included. Sodium 141 136 - 145 meq/L [facility] Potassium 3.3 (L) 3.5 - 5.1 meq/L [facility] Chloride 112 (H) 98 - 107 meq/L [facility] CO2 22 22 - 29 meq/L [facility] BUN 14 7 - 21 mg/dL [facility] Creatinine 1.08 0.57 - 1.25 [facility] mg/dL [facility] Glucose 115 (H) 70 - 105 mg/dL [facility] Calcium 8.2 (L) 8.4 - 10.2 [facility] mg/dL [facility] EGFR 66Comment: ESTIMATED mL/min/1.73 sq [facility] GFR IS NOT m [facility] ACCURATE [place] CREATININE CLEARANCE IN PREDICTING GLOMERULAR FILTRATION RATE. ESTIMATED GFR IS NOT APPLICABLE FOR DIALYSIS PATIENTS. Specimen Blood Performing Organization Address City/State/Zipcode Phone Number [facility] [address] [place] [address] CENTER US renal complete (10/08/2019 1:20 AM BATCH DUMPER) Specimen Narrative Performed At FINAL REPORT [employer] TECHNIQUE: Grayscale ultrasound of the k idneys and bladder with Doppler and spectral analysis. INDICATION: Renal and bladder ultrasound for clots. COMPARISON: 11/13/2018 ultrasound. FINDINGS: RIGHT KIDNEY: The right kidney measures 11.8 x 5.4 x 5.9 cm. Cortical thickness measures 1.4 cm. The mass with in the mid right kidney has measurements of 5.9 x 5.7 x 6.4 cm, prev iously 4.3 x 5.3 x 4.7 cm. A small adjacent exophytic cystic structur e is 1.5 x 1.5 x 1.5 cm. No hydronephrosis. Renal artery and vein ar e patent. LEFT KIDNEY: The left kidney measures 11 .5 x 5.9 x 5.4 cm. Cortical thickness measures 1.9 cm. No solid mass lesions. No hydronephrosis. Renal artery and vein are patent. BLADDER: Iraheta catheter present. IMPRESSION: Right renal mass consistent with renal c ell carcinoma is moderately increased in size compared to prior ultr asound. No hydronephrosis or evidence of residual clot. Signed: Lurdes Barreto MD Report Verified Date/Time: 10/08/2019 04:19:18 Procedure Note Interface, External Ris In - 10/08/2019 4:22 AM BATCH DUMPER FINAL REPORT TECHNIQUE: Grayscale ultrasound of the k idneys and bladder with Doppler and spectral analysis. INDICATION: Renal and bladder ultrasound for clots. COMPARISON: 11/13/2018 ultrasound. FINDINGS: RIGHT KIDNEY: The right kidney measures 11.8 x 5.4 x 5.9 cm. Cortical thickness measures 1.4 cm. The mass with in the mid right kidney has measurements of 5.9 x 5.7 x 6.4 cm, prev iously 4.3 x 5.3 x 4.7 cm. A small adjacent exophytic cystic structur e is 1.5 x 1.5 x 1.5 cm. No hydronephrosis. Renal artery and vein ar e patent. LEFT KIDNEY: The left kidney measures 11 .5 x 5.9 x 5.4 cm. Cortical thickness measures 1.9 cm. No solid mass lesions. No hydronephrosis. Renal artery and vein are patent. BLADDER: Iraheta catheter present. IMPRESSION: Right renal mass consistent with renal c ell carcinoma is moderately increased in size compared to prior ultr asound. No hydronephrosis or evidence of residual clot. Signed: Lurdes Barreto MD Report Verified Date/Time: 10/08/2019 0 4:19:18 Performing Organization Address City/[facility]/Zipcode Phone Number GE RIS Hemoglobin and hematocrit (10/05/2019 4:29 AM BATCH DUMPER) Pathologist [facility] Hemoglobin 8.9 (L) 13.7 - 17.5 GM/DL [facility] Hematocrit 29.1 (L) 40.1 - 51.0 % [facility] Specimen Blood Performing Organization Address City/[facility]/Zipcode Phone Number [facility] [address] [place] [address] CENTER CBC (Hemogram only) (10/04/2019 5:36 AM BATCH DUMPER)Only the most recent of4 results within the time period is included. Pathologist [facility] WBC 7.5 3.5 - 10.5 K/L [facility] RBC 3.76 (L) 4.63 - 6.08 M/L [facility] Hemoglobin 9.3 (L) 13.7 - 17.5 GM/DL [facility] Hematocrit 30.2 (L) 40.1 - 51.0 % [facility] MCV 80.3 79.0 - 92.2 fL [facility] MCH 24.7 (L) 25.7 - 32.2 pg [facility] MCHC 30.8 (L) 32.3 - 36.5 GM/DL [facility] RDW 23.2 (H) 11.6 - 14.4 % [facility] Platelets 262 150 - 450 K/CU MM [facility] MPV 10.0 9.4 - 12.4 fL [facility] nRBC 0 0 - 0 /100 WBC [facility] Specimen Blood Performing Organization Address City/State/Zipcode Phone Number [address] [address] [place] B-type Natriuretic Factor (BNP) (10/04/2019 5:36 AM BATCH DUMPER) Pathologist Sig nature BNP 139 (H) 0 - 100 pg/mL [facility] Specimen Blood Performing Organization Address City/State/Zipcode Phone Number [address] [address] chest with IV contrast (10/02/2019 5:14 PM BATCH DUMPER) Specimen Narrative Performed At FINAL REPORT [employer] [facility] EXAM: CT chest Clinical history: Renal cell carcinoma COMPARISON: January 12, 2019 TECHNIQUE: Helical images of the chest w ere obtained after IV contrast administration DOSE REDUCTION: The exams was performe d according to the departmental dose-optimization program w hich includes automated exposure control, adjustment of the mA a nd/or kV according to patient size and/or use of iterative reconstruct ion technique. FINDINGS: Multiple subcentimeter pulmona ry nodules are noted which are new compared to the prior study. Spe cifically, there is a 3.9 mm Nodule in the right upper lobe on image 23, 6.7 mm nodule in the left upper lobe on image 12, and a 6.5 mm nod ule in the lingula on image 38. In addition, there is mild increase in prominence of the mediastinal lymph nodes. For example, th e left paratracheal lymph node measuring 6.1 mm measured 3.4 mm pr eviously. There are 2 precarinal lymph nodes measure 4.4 and 5 .7 mm were measured 1.9 and 5.4 mm previously. Bibasilar atelectasis is again noted. Th e tracheobronchial tree is clear. The cardiac size is within normal limits. The great vessels are normal in caliber and configuration. There is a hypodense structure measuring 1.2 x 0.9 x 3.5 cm in the proximal IVC, this may represent a throm bus. IMPRESSION: 1. Interval development of multiple subc entimeter pulmonary nodules and increase in size of the mediastinal lymph nodes which may represent metastatic disease. 2. Intraluminal filling defect in the pr oximal IVC is may represent a thrombus, in the setting of prior renal cell carcinoma, tumor thrombus cannot be excluded. Signed: Lexis Rodrigues MD Report Verified Date/Time: 10/02/2019 20:40:37 Reading Location: [address] Reading Room Procedure Note Interface, External Ris In - 10/02/2019 8:43 PM BATCH DUMPER FINAL REPORT EXAM: CT chest Clinical history: Renal cell carcinoma COMPARISON: January 12, 2019 TECHNIQUE: Helical images of the chest w [facility] obtained after IV contrast administration DOSE REDUCTION: The exams was performed according to the departmental dose-optimization program w [facility] includes automated exposure control, adjustment of the mA a nd/or kV according to patient size and/or use of iterative reconstruct ion technique. FINDINGS: Multiple subcentimeter pulmona ry nodules are noted which are new compared to the prior study. Spe cifically, there is a 3.9 mm Nodule in the right upper lobe on image 23, 6.7 mm nodule in the left upper lobe on image 12, and a 6.5 mm nod ule in the lingula on image 38. In addition, there is mild increase in prominence of the mediastinal lymph nodes. For example, th e left paratracheal lymph node measuring 6.1 mm measured 3.4 mm pr eviously. There are 2 precarinal lymph nodes measure 4.4 and 5 .7 mm were measured 1.9 and 5.4 mm previously. Bibasilar atelectasis is again noted. Th e tracheobronchial tree is clear. The cardiac size is within normal limits. The great vessels are normal in caliber and configuration. There is a hypodense structure measuring 1.2 x 0.9 x 3.5 cm in the proximal IVC, this may represent a throm bus. IMPRESSION: 1. Interval development of multiple subc entimeter pulmonary nodules and increase in size of the mediastinal lymph nodes which may represent metastatic disease. 2. Intraluminal filling defect in the pr oximal IVC is may represent a thrombus, in the setting of prior renal cell carcinoma, tumor thrombus cannot be excluded. Signed: Lexis Rodrigues MD Report Verified Date/Time: 10/02/2019 2 0:40:37 Reading Location: [address] Reading Room Performing Organization Address City/State/Zipcode Phone Number [employer] 2D Echo W/Doppler(CW/PW/Color) (10/02/2019 12:30 PM BATCH DUMPER) Pathologist Sig nature Ejection Fraction [facility] Specimen Narrative Performed At Transthoracic Echocardiography Report (T TE) [facility] Demographics Patient Name JUAN REED Date of Study 10/02/2019 JULIANA Gender Male Visit Number [id number] Race Unknown Room Number 2438 Number Date of 1945 Referring Ruchi RIVERA Physician Age 74 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 Clinical History ACID REFLUX,A-FIB,A-FLUTTER,CHF,COPD,CAD,DM,HLD,HTN,STR SOLOMON,ENLARGED PROSTATE Height: 73 inches Weight: 111.58 kg (246 lbs) BSA: 2.35 m^2 BMI: 32.46 kg/m^2 HR: 80 bpm BP: 160/76 mmHg Summary The left ventricle is chamber size (by vol index) is normal (male - LVED vol - 34-74ml/m2). Mild concentric LV hypertrophy. Difficult to assess segmental wall motion; overall LV systolic function appears normal based on available views. LV diastolic function is indeterminate. Estimated peak systolic PA pressure is 30-35 mmHg . Peak systolic pressure may be underestimated; partial TR signa l. 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 The mass measures 3.4 cm x 7.97 cm. Previous Study In comparison with the prior exam 01/12/2019 the following changes are noted: the visualized portion of the IVC mass has decreased . Signature Findings Technical Quality: Technically difficult exam. Left Ventricle LV endocardium is incompletely visualized despite IV ultrasound enhancing agent. The left ventricle is chamber size (by vol index) is normal (male - LVED vol - 34-74ml/m2). Mild concentric LV hypertrophy. Difficult to assess segmental wall motion; overall LV systolic function appears nor mal based on available views. LV diastolic function i s inde terminate. Left Atrium LA is incompletely visualized, size based on linear rosalva urement. LA size is moderately enlarged . Right Ventricle RV chamber size appears normal by limited views . Global RV systolic function is normal . Right Atrium The right atrium is not well visualized. Aortic Valve Mild AoV cusp thickening. No evidence of aortic regurgitation. Mitral Valve Mild MV leaflet thickening. No evidence of mitral regurgitation. Tricuspid Valve TV structure is normal. A trace of tricuspid regurgitation. Estimated peak systolic PA pressure is 30-35 mmHg . Peak systolic pressure may be underestimated; partial TR signal. Pulmonic Valve Normal PV structure and function by limited views and Doppler. Aorta Aortic root size (SInus of Valsalva diameter) is norm al . Pericardium A trivial pericardial effusion is present . IVC/SVC/PA/PV/Pleural The estimated RA pressure by IVC dynamics 5-10mmHg . 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 IVC echo density is noted, consistent with thromb us . The mass measures 3.4 cm x 7.97 cm. Chambers/Structures Left Atrium LA Dimension: 5.19 cm Left Ventricle LVIDd: 5.06 cm LV Septum Diastolic: 1.34 cm LV PW Diastolic: 1.26 cm LVEDV Bell's:93.22 ml LVEDVI: 40 ml/m^2 LVOT Diameter: 2.13 cm Aorta Ao Root S of Betsy.: 3.29 cm Doppler/Quantitative Measurements Mitral Valve MV Peak E-Wave: 0.81 m/s MV Peak A-Wave: 0.36 m/s E/A Ratio: 2.28 Peak Gradient: 2.65 mmHg Deceleration Time: 189.4 msec MV Vernon. Peak: Aortic Valve Peak Velocity: 1.15 m/s Mean Velocity: 0.79 m/s Peak Gradient: 5.3 mmHg Mean Gradient: 2.79 mmHg AV Area (continuity): 2.68 cm^2 AV VTI: 21.1 cm AV DVI: 0.75 LVOT Peak Velocity: 0.79 m/s Peak Gradient: 2.49 mmHg Mean Velocity: 0.5 m/s Mean Gradient: 1.19 mmHg LVOT Diameter: 2.13 cm LVOT VTI: 15.86 cm LVOT Area: 3.56 cm^2 LVOT SV:56.48 ml LVOT CO: 4.52 l/min LVOT CI: 1.92 l/min/m^2 Tricuspid Valve TR Velocity: 2.47 m/s TR Gradient: 24.48 mmHg Procedure Note Interface, External Ris In - 10/12/2019 12:39 PM BATCH DUMPER Transthoracic Echocardiography Report (TTE) Demographics Patient Name JUAN REED Date of Study 10/02/2019 JULIANA Gender Male Visit Number [id number] Race Unknown Room Num [place] [id number] Number Date of 1945 Referrin nini RIVERA Physicia n Age 74 year(s) Sonograp her [place], NB, RDCS,RVT,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 Clinical History ACID REFLUX,A-FIB,A-FLUTTER,CHF,COPD,CAD ,DM,HLD,HTN,STROKE,ENLARGED PROSTATE Height: 73 inches Weight: 111.58 kg (246 lbs) BSA: 2.35 m^2 BMI: 32.46 kg/m^2 HR: 80 bpm BP: 160/76 mmHg Summary The left ventricle is chamber size (by vol index) is normal (male - LVED vol - 34-74ml/m2). Mild concentric LV h ypertrophy. Difficult to assess segmental wall motion; overall LV systo lic function appears normal based on available views. LV diastolic function is indeterminate. Estimated peak systolic PA pressure is 30-35 mmHg . Peak systolic pressure may be underestimated; partial TR signa l. 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 IVC e cho density is noted, consistent with thrombus . The mass measures 3.4 c m x 7.97 cm. Previous Study In comparison with the prior exam 2018 the following changes are noted: the visualized portion of the IV C mass has decreased . Signature Findings Technical Quality: Technically difficult exam. Left Ventricle LV endocardium i s incompletely visualized despite IV ultrasound en hancing agent. The left ventricle is chamber size (by vol index) is normal (male - LVED vol - 34-74 ml/m2). Mild concentric LV hypertrophy. Dif ficult to assess segmental wall motion; overall LV systolic function appears normal based on availab le views. LV diastolic function is indeterminate. Left Atrium LA is incomplete ly visualized, size based on linear measurement. LA size is moder ately enlarged . Right Ventricle RV chamber size appears normal by limited views . Global RV systol ic function is normal . Right Atrium The right atrium is not well visualized. Aortic Valve Mild AoV cusp th ickening. No evidence of a ortic regurgitation. Mitral Valve Mild MV leaflet thickening. No evidence of m itral regurgitation. Tricuspid Valve TV structure is normal. A trace of tricu spid regurgitation. Estimated peak s ystolic PA pressure is 30-35 mmHg . Peak systolic pr essure may be underestimated; partial TR signa l. Pulmonic Valve Normal PV struct ure and function by limited views and Doppler. Aorta Aortic root size (SInus of Valsalva diameter) is normal . Pericardium A trivial perica rdial effusion is present . IVC/SVC/PA/PV/Pleural The estimated RA pressure by IVC dynamics 5-10mmHg . A mobile IVC mas s is visualized . IVC echo density is noted, consistent with thrombus . The mass measu res 3.4 cm x 7.97 cm. Chambers/Structures Left Atrium LA Dimension: 5.19 cm Left Ventricle LVIDd: 5.06 cm LV Septum Diastolic: 1.34 cm LV PW Diastolic: 1.26 cm LVEDV Bell's:93.22 ml LVEDVI: 40 ml/m^2 LVOT Diameter: 2.13 cm Aorta Ao Root S of Betsy.: 3.29 cm Doppler/Quantitative Measurements Mitral Valve MV Peak E-Wave: 0.81 m/s MV P eak A-Wave: 0.36 m/s E/A Ratio: 2.28 Peak Gradient: 2.65 mmHg Dece leration Time: 189.4 msec MV Vernon. Peak: Aortic Valve Peak Velocity: 1.15 m/s Mean Velocity: 0.79 m/s Peak Gradient: 5.3 mmHg Mean Gradient: 2.79 mmHg AV Area (continuity): 2.68 cm^2 AV VTI: 21.1 cm AV DVI: 0.75 LVOT Peak Velocity: 0.79 m/s Pea k Gradient: 2.49 mmHg Mean Velocity: 0.5 m/s Kori n Gradient: 1.19 mmHg LVOT Diameter: 2.13 cm LVO T VTI: 15.86 cm LVOT Area: 3.56 cm^2 LVO T SV:56.48 ml LVOT CO: 4.52 l/min LVO T CI: 1.92 l/min/m^2 Tricuspid Valve TR Velocity: 2.47 m/s TR Gradient: 24.48 mmHg Performing Organization Address [facility] Phone Number [facility] Iron, TIBC, % sat. (without ferritin) (10/02/2019 6:14 AM BATCH DUMPER) Pathologist Sig nature Iron 24.0 (L) 40.0 - 160.0 [facility] ug/dL [facility] TIBC 314 250 - 450 ug/dL [facility] Iron % Saturation 8 (L) 20 - 55 % [facility] Specimen Blood Performing Organization Address [facility] Phone Number [address] [address] CENTER Ferritin (10/02/2019 6:14 AM BATCH DUMPER) Pathologist Sig nature Ferritin 61 5 - 275 ng/mL [facility] DICAL CENTER Specimen Blood Performing Organization Address [facility] Phone Number [address] [address] CENTER PT/aPTT (10/01/2019 5:04 PM BATCH DUMPER) Pathologist Sig nature Protime 18.2 (H) 11.9 - 14.2 seconds [facility] INR 1.6 <=5.9 [facility] PTT 54.0 (H) 22.5 - 36.0 seconds [facility] Specimen Blood Narrative Performed At Effective 02/25/2019: PT Reference Range [facility] Change New: 11.9-14.2 Previous: 11.7-14.7 RECOMMENDED COUMADIN/WARFARIN INR THERAPY RANGES STANDARD DOSE: 2.0-3.0 Includes: PROPHYLAXIS for venous thrombosis, systemic embolization; TREATMENT for venous thrombosis and/or pulmonary embolus. HIGH RISK: Target INR is 2.5-3.5 for patients wiht mechanical heart valves. Performing Organization Address [facility] Phone Number [address] [address] [place] Prothrombin time/INR (10/01/2019 5:04 PM BATCH DUMPER) Pathologist Sig nature Protime 18.2 (H) 11.9 - 14.2 seconds [facility] INR 1.6 <=5.9 [facility] Specimen Blood Narrative Performed At Effective 02/25/2019: PT Reference Range [facility] Change New: 11.9-14.2 Previous: 11.7-14.7 RECOMMENDED COUMADIN/WARFARIN INR THERAPY RANGES STANDARD DOSE: 2.0-3.0 Includes: PROPHYLAXIS for venous thrombosis, systemic embolization; TREATMENT for venous thrombosis and/or pulmonary embolus. HIGH RISK: Target INR is 2.5-3.5 for patients wiht mechanical heart valves. Performing Organization Address [facility] Phone Number [address] [address] [place] Hepatic function panel (10/01/2019 5:04 PM BATCH DUMPER) Pathologist Sig nature Protein, Total 6.1 6.0 - 8.3 gm/dL [facility] Albumin 3.5 3.5 - 5.0 g/dL [facility] Total Bilirubin 0.3 0.2 - 1.2 mg/dL [facility] Bilirubin, Direct 0.2 0.1 - 0.5 mg/dL [facility] Alkaline Phosphatase 97 40 - 150 U/L [facility] AST 10 5 - 34 U/L [facility] ALT 10 6 - 55 U/L [facility] Specimen Blood Performing Organization Address [facility] Phone Number [facility] [address] [place] [address] [place] Urinalysis w/Microscopic + Reflex to Culture (10/01/2019 5:03 PM BATCH DUMPER) Color, UA [place] [facility] Clarity, UA Hazy [facility] Specific [place], 1.016 1.001 - 1.035 [facility] pH, UA 6.5 5.0 - 8.0 [facility] Protein, UA 100 mg/dL (A) Negative [facility] Glucose, UA Negative Negative [facility] Ketones, UA Negative Negative [facility] Bilirubin, UA Negative Negative [facility] Blood, UA Large (A) Negative [facility] Nitrite, UA Negative Negative [facility] Leukocytes, UA Trace (A) Negative [facility] Urobilinogen, UA 0.2 0.2 - 1.0 mg/dL [facility] RBC, UA 2,270 /HPF [facility] WBC, UA 0 /HPF [facility] Specimen Source [facility] Specimen Urine - Urinary catheter, device (physic al object) Performing Organization Address City/State/Zipcode Phone Number [facility] [address] [place] [address] [place] ECG 12 lead (10/01/2019 3:18 PM BATCH DUMPER) Specimen Narrative Performed At Ventricular Rate 78 BPM GE MUSE Atrial Rate 101 BPM QRS Duration 96 ms Q-T Interval 418 ms QTC Calculation(Bazett) 476 ms R [place] -51 degrees T [place] 73 degrees Atrial tachycardia 9versus slow atrial flutter) with v ariable AV conduction Left anterior fascicular block Nonspecific ST and T wave abnormality Prolonged QT Abnormal ECG When compared with ECG of 08-JAN-2019 10 :29, Left anterior fascicular block is now Pr esent Confirmed by MD AKASH, ADDISON ([id number]) on 10/02/2019 4 :50:18 PM Procedure Note Interface, External Ris In - 10/02/2019 4:50 PM BATCH DUMPER Ventricular Rate 78 BPM Atrial Rate 101 BPM QRS Duration 96 ms Q-T Interval 418 ms QTC Calculation(Bazett) 476 ms R [place] -51 degrees T [place] 73 degrees Atrial tachycardia 9versus slow atrial f lutter) with variable AV conduction Left anterior fascicular block Nonspecific ST and T wave abnormality Prolonged QT Abnormal ECG When compared with ECG of 08-JAN-2019 10 :29, Left anterior fascicular block is now Pr esent Confirmed by MD BUSTOS YOCHAI ([id number]) on 10/02/2019 4:50:18 PM Performing Organization Address City/State/[facility] Phone Number GE MUSE after 09/29/2019 ([place]) [place] [address] Advance Directives For more information, please contact: [phone] Code Status Date Activated Date Inactivated Comments Full Code 10/07/2019 12:01 AM 10/08/2019 7:35 PM This code status was determined by: Patient DNAR 10/01/2019 2:43 PM 10/05/2019 8:52 PM This code status was determined by: Patient Has the consent form been signed? No Have you Written ACP Note: Yes Full Code 01/19/2019 9:20 AM 01/19/2019 7:17 PM This code status was determined by: Patient Full Code 11/11/2018 10:21 PM 12/01/2018 8:42 PM This code status was determined by: Patient Full Code 12/23/2017 11:29 AM 12/23/2017 4:21 PM This code status was determined by: Patient
--- OUTSIDE RECORDS SUMMARY | 2020-09-29 12:22 | XMS REPORT | Continuity of Care Document ---
:1945 Author Organization [employer] [facility] [employer] Care Team Providers Name Role Phone O-RID Unavailable Un available Problems Problem Status Onset Classification Date Comments Sourc e Date Reported Sepsis, 10/22/19 05/04/2019 [facility] unspecified 19 Medical organism Center DIVERTICULITIS [place] [facility] [place] DIVERTICULITIS [place] 10[place]04[place] WITH BLEEDING/ KATHLEEN 19 edical Center FALL/SOB Active 01/09/20 [facility] [place] Acute kidney 05/04/2019 [place] failure with Medical tubular necrosis [address] [facility] Severe sepsis with 05/04/2019 [facility] septic shock Medical Center Diverticulitis of 05/04/2019 [facility] large intestine Medi [place] with perforation [place] [facility] and abscess without bleeding Hypertensive heart 05/04/2019 [facility] and chronic kidney edical disease with heart C enter failure and stage 1 through stage 4 chronic kidney disease, or unspecified chronic kidney disease Hypo-osmolality 05/04/2019 [facility] and hyponatremia Med ical Center 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 Center Malignant neoplasm 05/04/2019 [facility] of right kidney, Med ical except renal Center pelvis Hyperkalemia 05/04/2019 [facility] as Medical Center Personal history 05/04/2019 [facility] of nicotine Medical dependence Center Unspecified atrial 05/04/2019 [facility] fibrillation 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 ical 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 Cente r Emphysema, 05/04/2019 [facility] unspecified Medical Center Heart failure, 05/04/2019 [place] unspecified Medical Center Chronic kidney 05/04/2019 [facility] [place] disease, stage 3 Med ical (moderate) Center Type 2 diabetes 05/04/2019 [facility] mellitus with Medica l diabetic chronic [place] [facility] kidney disease Unspecified 05/04/2019 [facility] hearing loss, Medica l unspecified ear Cent er Hyperlipidemia, 05/04/2019 [facility] unspecified Medical Center Anemia in other 05/04/2019 [facility] chronic diseases Med ical classified Center elsewhere Hypoxemia 05/04/2019 [facility] Type 2 diabetes 05/04/2019 [facility] mellitus with Medica l hyperglycemia Center 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, medicaments C enter and biological substances Adverse effect of 05/04/2019 [facility] diagnostic agents, edical initial encounter Ce nter Hypokalemia 05/04/2019 [facility] Obstructive and 05/04/2019 [facility] reflux uropathy, Med ical unspecified Center correction 05/04/2019 [facility] (current) use of Med ical oral hypoglycemic Ce nter drugs Atrial flutter Active Problem 05/04/2019 [facility] [place] (disorder) Medical [place],[facility] Congestive heart Resolved Problem 05/04/2019 [facility] Cholecystectomy Active Problem 05/04/2019 [facility] (procedure) [facility] Chronic Active Problem 05/04/2019 [facility] obstructive lung Med ical disease (disorder) C enter,[facility] Smoker (finding) Active Problem 05/04/2019 [facility] Diabetes mellitus Resolved Problem 05/04/2019 [facility] type 2 (disorder) Mn dical [place],[facility] Diabetes mellitus Active Problem 05/04/2019 [facility] (disorder) [facility] History of repair Active Problem 05/04/2019 [facility] of umbilical Medical hernia (situation) C enter,[facility] Hyperlipidemia Resolved Problem 05/04/2019 [facility] [place] (disorder) [facility] Hypertensive Resolved Problem 05/04/2019 [place] disorder, systemic [facility] arterial Center, (disorder) [facility] Myocardial Active Problem 05/04/2019 [facility] infarction Medical (disorder) Center,[facility] PNEUMONIA, Active UNSPECIFIED [place] ORGANISM DVTRCLI OF INTEST, Active [facility] PART UNSP, W/O Medic al PERF O Center Medications Medication Details Route Status Patient Ordering Order Source Instructions Provider Date ferrous sulfate 325 mg = 1 tab, Active 10/15/ [facility] 325 mg oral PO, Daily, # 2018 Medi [place] enteric coated tab, 2 Center tablet Refill(s), other Glipizide 5 MG 5 mg = 1 tab, Active 10/15/ [facility] Oral Tablet PO, Daily, # 2018 Medi [place] tab, 0 Center Refill(s), other Bicitra oral 30 mL, PO, BID, Active [place] solution # 420 mL, 0 2019 Medical Refill(s), other Center ciprofloxacin 500 mg = 1 tab, No Longer [place] 500 mg oral PO, [id number], X 8 Active 2019 Med ical tablet day, # 8 tab, 0 Center Refill(s), other Metronidazole 500 mg = 1 tab, No Longer [place] 500 MG Oral PO, TID, X 8 Active 2019 Medical Tablet day, # 24 tab, 0 Center Refill(s), other Ketotifen 0.25 1 drp, BOTH Active [place] MG/ML Ophthalmic EYES, Q8H, 0 2018 Me dical Solution Refill(s) Center Aspirin 81 MG 81 mg = 1 tab, Active [place] Enteric Coated PO, Daily, 0 2019 Medi [place] Tablet Refill(s) Center Compazine Notes: (Same as: No Longer [place] Compazine) Active 2019 [facility] Bicitra oral 30 mL, Route: Inactive [place] solution PO, Drug Form: 2019 Medical SOLN, Dosing Center Weight 100.9, kg, BID, Start date: 10/14/18 17:00:00 PEARL CUTTER, Duration: 30 day, Stop date: 11/13/18 9:00:00 PEARL CUTTER Bicitra oral Notes: (Same As: No Longer [place] solution Bicitra, Active 2018 Medical Cytra-2) Sodium Center citrate-citric acid (500-334 mg/5 mL): 1 mL contains sodium 1 mEq/mL and bicarbonate 1 mEq/mL Symbicort 80/4.5 2 puff, Active [place] inhalation INHALATION, BID, 2019 Medi [place] aerosol with # 6.9 gm, 0 Center adapter Refill(s) Albuterol 0.833 3 ml, Active [place] MG/ML / INHALATION, QID, 2019 Medical Ipratropium PRN as needed Center [place] 0.167 for shortness of MG/ML Inhalant breath or Solution wheezing, # 30 [DuoNeb] ea, 0 Refill(s) 24 HR Nicotine = 1 patch, TOP, Active H [place] 0.583 MG/HR Daily, # 14 2019 Medical Transdermal patch, 0 Center Patch [Nicoderm Refill(s) C-Q] lisinopril 10 mg 10 mg = 1 tab, No Longer [place] oral tablet PO, Daily, # 30 Active 2019 [facility] bronwyn tab, 0 Refill(s) Center Ondansetron 4 MG 4 mg = 1 tab, Active H [place] Oral Tablet PO, Q4H, PRN 2019 Medical [Zofran] Nausea/Vomiting, Center # 30 tab, 0 Refill(s) Metolazone 5 MG 5 mg = 1 tab, No Longer [place] Oral Tablet PO, Daily, # 30 Active 2019 [facility] bronwyn tab, 0 Refill(s) Center finasteride 5 mg 5 mg = 1 tab, Active H [place] oral tablet PO, Daily, # 30 2019 [facility] bronwyn tab, 0 Refill(s) Center sertraline 100 100 mg = 1 tab, Active H [place] mg oral tablet PO, Daily, # 30 2019 edical tab, 0 Refill(s) Center Docusate Sodium 100 mg = 1 cap, Active [place] 100 MG Oral PO, BID, # 60 2019 Medica l Capsule [Colace] cap, 0 Refill(s) Center tamsulosin 0.4 0.4 mg = 1 cap, Active H [place] mg oral capsule PO, Daily, # 30 2019 Medical cap, 0 Refill(s) Center Hydralazine 10 mg = 1 tab, No Longer [place] Hydrochloride 10 PO, BID, # 120 Active 2019 Medical MG Oral Tablet tab, 0 Refill(s) Center 12 HR ranolazine 500 mg = 1 tab, No Longer 10/14 [place] 500 MG Extended PO, BID, # 60 Active 2019 Me dical Release Tablet tab, 0 Refill(s) Center [Ranexa] apixaban 5 MG 5 mg, PO, Q12H, No Longer [place] Oral Tablet 0 Refill(s) Active 2019 Medical [Eliquis] Center albuterol 90 2 puff, No Longer [place] mcg/inh INHALATION, QID, Active 2019 Medical inhalation # 17 gm, 0 Center aerosol Refill(s) Aspirin 325 MG 325 mg = 1 tab, No Longer [place] Oral Tablet PO, Daily, # 90 Active 2019 [facility] bronwyn tab, 0 Refill(s) [place] Furosemide 40 MG 40 mg = 1 tab, No Longer [place] Oral Tablet PO, Daily, # 30 Active 2019 [facility] bronwyn [Lasix] tab, 0 Refill(s) Center Spironolactone 25 mg = 1 tab, No Longer [place] 25 MG Oral PO, Daily, # 180 Active 2019 Medi [place] Tablet tab, 0 Refill(s) [place] [Aldactone] Alprazolam 0.5 0.5 mg = 1 tab, Active [place] MG Oral Tablet PO, PRN as 2019 Medica l [Xanax] needed for Center anxiety, 0 Refill(s) gabapentin 400 400 mg = 1 cap, Active [place] MG Oral Capsule PO, BID, # 90 2019 Mn dical cap, 1 Refill(s) [place] Glipizide 5 MG 5 mg = 1 tab, No Longer [place] Oral Tablet PO, BID-Before Active 2019 Medic al Meals, # 30 tab, Center 1 Refill(s) Acetaminophen 1 tab, PO, Q6H, No Longer [place] 325 MG / PRN Pain, # 60 Active 2019 Medical Hydrocodone tab, 0 Refill(s) [address] Bitartrate 7.5 MG Oral Tablet [[place] 7.5/325] Calcium Chloride 1,000 mL, 1,000 Inactive [place] 0.0014 MEQ/ML / ml/hr, Infuse 2018 Mn dical Potassium Over: 1 hr, [place] Chloride 0.004 Route: IV, MEQ/ML / Sodium 1,000, Drug Chloride 0.103 form: INJ, ONCE, MEQ/ML / Sodium Priority: STAT, Lactate 0.028 Dosing Weight MEQ/ML 100.9 kg, Start Injectable date: 10/14/18 Solution 7:25:00 PEARL CUTTER, Stop date: 10/14/18 7:25:00 PEARL CUTTER K-Dur 20 Notes: (Same as: Inactive [place] K-Dur 20) "Do 2019 Medical Not Crush" Give Center with food and full glass of water For patients unable to swallow tablet, dissolve in one half glass of water. Allow about 2 minutes for the tablets to disintegrate. Stir before giving to prepare slurry and administer. Please exclude Patient’s with feeding tube less than 14 Faro[place] (Dobhoff, J-tube etc) and pediatric and patients. potassium 40 mEq, 2 tab, Inactive [place] as chloride 20 mEq Route: PO, Drug 2019 Medical oral tablet, form: ERTAB, Center extended release BID, Dosing Weight 98.136, kg, Priority: STAT, Start date: 10/14/18 5:40:00 PEARL CUTTER, Duration: 2 doses or times, Stop date: 10/14/18 9:00:00 PEARL CUTTER Lactated Ringers 1,000 mL, Rate: No Longer 10/14 [place] IV 1,000 mL 100 ml/hr, Active 2019 Medical Infuse over: 10 Center hr, Route: IV, Dosing Weight 98.136 kg, Total Volume: 1,000, Priority: NOW, Start date: 10/13/18 22:16:00 PEARL CUTTER, Duration: 30 day, Stop date: 11/12/18 22:15:00 PEARL CUTTER, 2.25, m2 Cipro Notes: May No Longer [place] interfere with Active 2019 Medical enteral Center feedings. Take 1 hour before or 2 hours after antacids, dairy products, & minerals. Take on an empty stomach. Flagyl Notes: Take with No Longer [place] food/avoid Active 2019 Medical alcohol. (Same Center as: Luz) Ciprofloxacin Notes: May Inactive [place] as interfere with 2019 Medical enteral Center feedings. Take 1 hour before or 2 hours after antacids, dairy products, & minerals. Take on an empty stomach. Isolyte S PH-7.4 Notes: (Same as: Inactive 10/13 [place] (Bolus) IV Isolyte S PH 2019 Medical 7.4) Center potassium Notes: (Same as: Inactive [place] chloride 20 mEq K-Dur 20) "Do 2019 Me dical oral tablet, Not Crush" Give Ce nter extended release with food and full glass of water For patients unable to swallow tablet, dissolve in one half glass of water. Allow about 2 minutes for the tablets to disintegrate. Stir before giving to prepare slurry and administer. Please exclude Patient’s with feeding tube less than 14 [place] (Dobhoff, J-tube etc) and pediatric and patients. potassium Notes: (Same as: Inactive [place] chloride KCL) Infuse no 2019 Medical faster than 10 Center mEq/hr if given peripherally. Potassium 10 mEq, Route: Inactive [place] as Chloride IVPB, Q1H, 2019 Medical Dosing Weight Center 112, kg, Total Dose = 20 meq, Start date: 10/13/18 6:00:00 PEARL CUTTER, Duration: 4 doses or times, Stop date: 10/13/18 9:00:00 PEARL CUTTER, Peripheral Line Isolyte S PH-7.4 Notes: (Same as: Inactive 10/13 [place] (Bolus) IV Is[place]te S PH 2019 Medical 7.4) Center potassium Notes: (Same as: Inactive [place] chloride KCL) Infuse no 2019 Medical faster than 10 Center mEq/hr if given peripherally. Furosemide 20 MG Notes: (Same as: No Longer 09/30 [place] Oral Tablet Lasix) January Active 2018 Medical [Lasix] cause GI upset. Center Give with food or milk. Potassium 40 mEq, Route: Inactive [place] as Chloride IV, ONCE, Dosing 2019 Medica l Weight 112, kg, Center Start date: 10/12/18 10:50:00 PEARL CUTTER, Stop date: 10/12/18 10:50:00 PEARL CUTTER potassium Notes: (Same as: Inactive [place] chloride KCL) Infuse no 2019 Medical faster than 10 Center mEq/hr if given peripherally. Magnesium Notes: WASTE: Inactive [place] Sulfate F/P - Sink; E - 2019 [facility] Trash [place] Bin Potassium 40 mEq, Route: Inactive [place] as Chloride IV, ONCE, Dosing 2019 Medica l Weight 112, kg, Center Start date: 10/11/18 5:00:00 PEARL CUTTER, Stop date: 10/11/18 5:00:00 PEARL CUTTER Refresh Eye Itch Notes: (Same No Longer [place] Relief as:Zaditor) Active 2019 Medical Center iodixanol 150 mL, Route: Inactive [place] as IVP, Drug Form: 2019 Medical SOLN, Dosing Center Weight 112, kg, ONCALL, STAT, Start date: 10/10/18 19:36:00 PEARL CUTTER, Duration: 1 doses or times, Dose = 2.2ml/kg, Max dose = 150ml -- "To be infused by Radiology Staff ONLY" Zofran Notes: (Same as: No Longer [place] Zofran) Active 2019 Medical MEDICATION WASTE Center Product Size: 4 mg Product Wasted: ___ mg Zofran Notes: (Same as: Inactive [place] as Zofran) 2019 Medical MEDICATION WASTE Center Product Size: 4 mg Product Wasted: ___ mg Furosemide 40 MG Notes: (Same as: No Longer 09/30 [facility] Oral Tablet Lasix) May Active 2019 Medical [Lasix] cause GI upset. Center Give with food or milk. Flomax Notes: (Same As: No Longer Jese severino Flomax) "Do Not Active 2019 Medical Crush" Center Furosemide 40 MG 40 mg, Route: Inactive [place] Oral Tablet PO, Drug form: 2019 Medic al [Lasix] TAB, BID, Dosing Center Weight 125, kg, Start date: 10/08/18 9:00:00 PEARL CUTTER, Duration: 30 day, Stop date: 11/06/18 17:00:00 PEARL CUTTER Lasix Notes: (Same as: Inactive [place] as Lasix) 2019 Medical MEDICATION WASTE Center Product Size: 40 mg Product Wasted: ___ mg olanzapine Notes: (Same as: No Longer [place] ZyPREXA) Active 2019 Medical Center Melatonin Notes: (Same as: No Longer [place] Melatonin) Active 2019 Medical Center Lasix Notes: (Same as: Inactive [place] as Lasix) 2019 Medical Center budesonide-formo Notes: (Same as: No Longer [facility] terol 160 Symbicort) Active 2019 Medical mcg-4.5 mcg/inh WASTE: Aerosol - Center inhalation Return to aerosol with Pharmacy adapter Zosyn Notes: (Same as: No Longer [place] severino Zosyn) Dosing Active 2019 Medical based on Center Piperacillin component MEDICATION WASTE Product Size: 3375 mg Product Wasted: ___ mg carvedilol Notes: Give with No Longer [place] food. (Same As: Active 2019 Medical Coreg) [place] Advair Diskus 1 inhalation, Inactive [place] 250 mcg-50 mcg Route: INHALER, 2019 M edical inhalation Drug Form: AERO, Cent er powder Dosing Weight 125, kg, RBID, Start date: 10/07/18 12:49:00 PEARL CUTTER, Duration: 30 day, Stop date: 11/06/18 8:00:00 PEARL CUTTER Lasix Notes: (Same as: Inactive [place] as Lasix) 2019 [facility] Tylenol Notes: Max No Longer [facility] acetaminophen Active 2019 Medical 4000 mg/day (4 Center gm/day). (Same as: Tylenol Extra Strength) Digoxin 0.125 MG Notes: Take on No Longer [place] Oral Tablet an Empty Stomach Active 2019 Med ical (Same as: [place] Lanoxin) Digoxin Notes: (Same as: Inactive [place] as Lanoxin) 2019 [facility] Digoxin Notes: (Same as: Inactive [place] as Lanoxin) 2019 [facility] Ciprofloxacin Notes: Do not No Longer [facility] refrigerate Active 2019 [facility] Digoxin 500 microgram, Inactive [place] Route: IV, ONCE, 2019 Medical Dosing Weight Center 125, kg, Start date: 10/06/18 5:03:00 PEARL CUTTER, Stop date: 10/06/18 5:03:00 PEARL CUTTER Hydrocortisone Notes: (Same as: No Longer [place] Solu-CORTEF) Active 2019 [facility] heparin Notes: porcine No Longer [place] heparin Active 2019 [facility] 250 ML Albumin Notes: LOT#: Inactive Ruben Human, NURSING HOME 50 Mfg 2019 M edical MG/ML Injection : Center [Albuked] _ (Same as: Albuminar) "blood product derivative" WASTE: F/P - Red; E -Red MEDICATION WASTE Product Size: 25 gm Product Wasted: ___ gm Albuterol 0.833 Notes: (Same as: No Longer 10/05 [place] MG/ML / Duoneb) Active 2019 Medical Ipratropium Center [place] 0.167 MG/ML Inhalant Solution [DuoNeb] Aspirin 325 MG 325 mg, 1 tab, Inactive [place] Oral Tablet Route: PO, 2019 Medical Daily, Dosing Center Weight 125, kg, Start date: 10/05/18 9:00:00 PEARL CUTTER, Duration: 30 day, Stop date: 11/03/18 9:00:00 PEARL CUTTER Aspirin Notes: Do not No Longer [facility] crush or chew. Active 2019 Medical (Same As: Center Ecotrin) gabapentin 100 Notes: (Same as: No Longer [facility] MG Oral Capsule Neurontin) Active 2019 Medic al Center heparin Notes: porcine Inactive [facility] heparin 2019 Medical Center Metoprolol Notes: (Same as: Inactive [facility] Lopressor) Push 2019 Medical over 2 minutes Center Tramadol Notes: Not to [place] Longer [place] exceed Active 2019 Medical 400mg/day. (Same Center As: Ultra) Tramadol 100 mg, Route: Inactive [place] PO, Drug form: 2019 Medical TAB, Q6H, Dosing Center Weight 125, kg, PRN Pain Score 4-6, Start date: 10/05/18 6:43:00 PEARL CUTTER, Duration: 30 day, Stop date: 11/04/18 6:42:00 PEARL CUTTER Insulin regular 60 units) No Longer [facility] WASTE: F/P - Active 2019 Medical Black; E - Center Municipal Trash Bin Stable for 28 days at room temperature Expires in days from Da te Dextrose 50% 12.5 gm, 25 mL, No Longer [facility] Syringe Route: IVP, Drug Active 2019 Medical Form: INJ, Center Dosing Weight 125, kg, PRN, PRN Blood Glucose Results, Start date: 10/05/18 6:30:00 PEARL CUTTER, Duration: 30 day, Stop date: 11/04/18 6:29:00 PEARL CUTTER Glucagon 1 mg, Route: IM, No Longer [place] Drug form: Active 2019 Medical PDR/INJ, PRN, Center Dosing Weight 125, kg, PRN Blood Glucose Results, Start date: 10/05/18 6:30:00 PEARL CUTTER, Duration: 30 day, Stop date: 11/04/18 6:29:00 PEARL CUTTER Tylenol Notes: Max No Longer [place] acetaminophen Active 2018 Medical 4000 mg/day (4 Center gm/day). (Same as: Tylenol Extra Strength) Flagyl Notes: (Same as: No Longer [place] Flagyl) Avoid Active 2018 Medical alcohol. Center Ciprofloxacin Notes: Do not Inactive [place] refrigerate 2019 Medical Center Albuterol 0.833 Notes: (Same as: No Longer 10/05 [place] MG/ML / Duoneb) Active 2018 Medical Ipratropium Center [place] 0.167 MG/ML Inhalant Solution [DuoNeb] Metoprolol Notes: (Same as: Inactive [place] Lopressor) Push 2019 Medical over 2 minutes Center Isolyte S PH 7.4 Notes: (Same as: No Longer [facility] 1,000 mL Isolyte S PH Active 2018 [facility] 7.4) Center Norepinephrine Notes: Not for No Longer [place] direct Active 2018 Medical administration - Center DILUTE. Protect from light. (Same as:Levophed). Administer by either central venous catheter or peripherally-ins erted central catheter (PICC) line. Isolyte S PH-7.4 Notes: (Same as: Inactive 10/05 [place] (Bolus) IV Isolyte S PH 2019 Medical 7.4) Center Saline Flush Notes: (Same as: No Longer [place] 0.9% BD Posiflush) Active 2019 Medical Center cefepime 1 gm, Route: No Longer [place] IVPB, ONCE, Active 2018 Medical Dosing Weight Center 113.636, kg, Priority: STAT, Start date: 10/04/18 23:52:00 PEARL CUTTER, Stop date: 10/04/18 23:52:00 PEARL CUTTER, ABX Indication: Bacteremia Zosyn 3.375 gm, Route: No Longer [place] IVPB, ONCE, Active 2018 Medical Dosing Weight Center 113.636, kg, Priority: STAT, Start date: 10/04/18 23:52:00 PEARL CUTTER, Stop date: 10/04/18 23:52:00 PEARL CUTTER, ABX Indication: Bacteremia carvedilol 12.5 12.5 mg = 1 tab, Active mg oral tablet PO, Q12H, # 60 2016 No rtheast tab, 0 Refill(s) predniSONE 20 mg 40 mg = 2 tab, Active oral tablet PO, Daily, X 7 2015 day, # 14 tab, 0 Refill(s) Cefuroxime 500 500 mg = 1 tab, Active H MG Oral Tablet PO, BID, X 7 [facility] day, # 14 tab, 0 Refill(s) Nebulizer 1 ea, MISC, Active ONCALL, # 1 ea, 2015 [facility] t 0 Refill(s) Albuterol 0.83 2.49 mg = 3 mL, Active H MG/ML Inhalant INHALATION, Q6H, 2015 [facility] Solution # 120 ea, 0 Refill(s) Advair Diskus 1 puff, Active 250 mcg-50 mcg INHALATION, BID, 2015 [facility] inhalation # 1 ea, 0 powder Refill(s) remove patch Notes: Remove Inactive old patch before 2015 [facility] application of new patch. WASTE: F/P - P Waste Black; E - P Waste Black Levemir Notes: Same as No Longer Levemir Do not Active 2015 hold insulin without contacting prescriber WASTE: F/P - Black; E - Municipal Trash Bin "single patient use only" Nicotine Notes: (Same as: No Longer Habitrol) Active 2015 [facility] "Remove old patch before application of new patch" WASTE: F/P - P Waste Black; E - P Waste Black Omeprazole 20 mg, Route: No Longer PO, Daily, Active 2015 [facility] Dosing Weight 107.273, kg, Start date: 01/10/16 9:00:00 CDT, Duration: 30 day, Stop date: 02/08/16 9:00:00 CDT Lisinopril Notes: (Same as: Inactive Prinivil, 2015 [facility] Zestril) Coreg Notes: Give with No Longer food. (Same As: Active 2015 [facility] Coreg) Rocephin Notes: (Same As: No Longer Rocephin). Use Active 2015 [facility] t with 100 mL NS and infuse over 30 min MEDICATION WASTE Product Size: 1000 mg Product Wasted: ___ mg Levofloxacin Notes: (Same No Longer as:Levaquin) Active 2015 [facility] atorvastatin Notes: (Same as: No Longer Lipitor) Active 2015 [facility] tamsulosin Notes: (Same As: No Longer Flomax) "Do Not Active 2015 [facility] st Crush" Sotalol Notes: (Same As: No Longer Hydrochloride AF Betapace) Active 2015 [place] Sertraline Notes: (Same as: No Longer Zoloft) Active 2015 [facility] Ranexa Notes: Same as No Longer Ranexa "Do Not Active 2015 [facility] Crush" Metoprolol Notes: (Same as: Inactive Lopressor) Push 2015[facility] over 2 minutes Protonix Notes: Tablet No Longer should not be Active 2015 [facility] chewed or crushed. (Same as: Protonix) Furosemide 40 MG Notes: (Same as: No Longer 12/29 Oral Tablet Lasix) May Active [facility] t cause GI upset. Give with food or milk. Solu-Medrol Notes: (Same No Longer as:Solu-MEDROL, Active 2015[facility] A-Methapred) gabapentin 300 Notes: (Same as: No Longer MG Oral Capsule Neurontin) Active 2015 [place] Aspirin 81 MG Notes: Do not No Longer Enteric Coated crush or chew. Active 2015 No rtheast Tablet (Same As: Ecotrin) Insulin, Aspart, Notes: Roll in No Longer Human palms of hands Active 2015 [facility] gently; Do not shake vigorously. (Same as: NovoLOG) "single patient use only" WASTE: F/P - Black; E - Municipal Trash Bin Stable for 28 days at room temperature. Expires in days from Da te Dextrose 50% 12.5 gm, 25 mL, No Longer 04/11/ M H Syringe Route: IVP, Drug Active 2015 [facility] st Form: INJ, Dosing Weight 107.273, kg, PRN, PRN Blood Glucose Results, Start date: 01/09/16 9:17:00 CDT, Duration: 30 day, Stop date: 02/08/16 9:16:00 CDT Glucagon 1 mg, Route: IM, No Longer Drug form: Active 2015 [facility] PDR/INJ, PRN, Dosing Weight 107.273, kg, PRN Blood Glucose Results, Start date: 01/09/16 9:17:00 CDT, Duration: 30 day, Stop date: 02/08/16 9:16:00 CDT Albuterol 0.833 Notes: (Same as: No Longer 01/08 MG/ML / Duoneb) Active 2015 [facility] Ipratropium [place] 0.167 MG/ML Inhalant Solution [DuoNeb] Enoxaparin Notes: (Same as: No Longer Lovenox) Active 2015 [facility] Alprazolam 0.5 1 mg = 2 tab, No Longer H MG Oral Tablet PO, Bedtime, 0 Active 2015 [facility] Refill([facility]) Furosemide 40 MG 40 mg = 1 tab, Active Oral Tablet PO, BID, 0 2015 [facility] Refill(s) minoxidil 2.5 mg 2.5 mg = 1 tab, No Longer 01/08 oral tablet PO, BID, 0 Active 2015 [facility] Refill(s) Potassium 20 mEq = 1 tab, No Longer Chloride 20 MEQ PO, BID, 0 Active 2015 [place] Extended Release Refill(s) Tablet atorvastatin 40 40 mg = 1 tab, Active H mg oral tablet PO, Bedtime, 0 2015 [facility] Refill([facility]) tamsulosin 0.4 0.4 mg = 1 cap, Active H mg oral capsule PO, Daily, 0 2015 [facility] Refill([facility]) sertraline 100 100 mg = 1 tab, Active H mg oral tablet PO, Bedtime, 0 2015 [facility] Refill([facility]) promethazine 25 25 mg = 1 tab, No Longer mg oral tablet PO, Q8H, PRN Active 2015 [facility] Nausea, 0 Refill(s) carvedilol 25 mg 25 mg = 1 tab, No Longer oral tablet PO, Daily, 0 Active 2015 [facility] Refill(s) Omeprazole 20 mg, PO, Active Daily, 0 2015 [facility] Refill(s) gabapentin 300 300 mg = 1 cap, Active H MG Oral Capsule PO, TID, 0 2015 [place] Refill(s) glimepiride 2 mg 2 mg = 1 tab, No Longer oral tablet PO, BID, 0 Active 2015 [facility] Refill(s) niacin 500 mg 1,000 mg = 2 Active oral tablet tab, PO, 2016 Bedtime, 0 Refill(s) lisinopril 20 mg 20 mg = 1 tab, Active oral tablet PO, Daily, 0 2015 [facility] Refill(s) Aspirin 81 MG 81 mg = 1 tab, Active Enteric Coated PO, Daily, # 90 2015 [facility] Tablet tab, 3 Refill(s) Sotalol 80 mg = 1 tab, Active Hydrochloride AF PO, BID, 0 2015 [facility] 80 mg oral Refill(s) tablet Ranexa 500 mg, PO, BID, Active 0 Refill(s) 2015 Glipizide 10 MG 5 mg = 0.5 tab, No Longer Oral Tablet PO, BID, 0 Active 2015 [facility] Refill(s) dextromethorphan Notes: No Longer -guaiFENesin 10 (dextromethorpha Active 2015 [facility] mg-100 mg/5 mL n-guaifenesin oral liquid 10-100/5 ml LIQ) (Same as: Robitussin-DM) Ondansetron Notes: (Same as: No Longer H Zofran) Active 2015 [facility] MEDICATION WASTE Product Size: 4 mg Product Wasted: ___ mg Acetaminophen Notes: Do not No Longer exceed 4 gm/day. Active 2015 [facility] st (Same as: Tylenol) Levofloxacin Notes: (Same Inactive as:Levaquin) 2015 [facility] Ceftriaxone Notes: (Same As: Inactive Rocephin). Use 2015 [facility] t with 100 mL NS and infuse over 30 min MEDICATION WASTE Product Size: 1000 mg Product Wasted: ___ mg Albuterol 0.833 Notes: (Same as: Inactive MG/ML / Duoneb) 2015 [facility] Ipratropium [place] 0.167 MG/ML Inhalant Solution [DuoNeb] Tylenol Notes: Max Inactive acetaminophen 2015 4000 mg/day (4 gm/day). (Same as: Tylenol Extra Strength) Saline Flush Notes: (Same as: No Longer 0.9% BD Posiflush) Active 2015 [facility] Allergies, Adverse Reactions, Alerts Substance Category Reaction Severity Reaction Status Date Comments S ource type Reported Dilaudid [facility] Active [facility] Immunizations No Data Provided for This Section Results Order Name Results Value Reference Date Interpretation Comments Karina rce Range CHEM PANEL Magnesium 2.1 1.8 - 2.4 10/15 [facility] CHEM PANEL Phosphorus 2.7 2.5 - 4.5 10/15 [facility]2018 [facility] CHEM PANEL eGFR 25 10/15 Result Comment: [...] PANEL Potassium 3.4 3.5 - 5.1 10/15 [facility] CHEM PANEL Sodium Lvl 140 135 - 145 10/15 2018 [facility] CHEM PANEL CO2 21 24 - 32 10/15 [facility] CHEM PANEL Chloride Lvl 108 95 - 109 10/15 s [facility] CHEM PANEL Calcium Lvl 8.1 8.5 - 10.5 10/15 [facility] CHEM PANEL AGAP 14.4 10.0 - 10/15 [place] 20.0 [facility] CHEM PANEL BUN 46 7 - 22 10/15 [facility] CHEM PANEL Creatinine 2.43 0.50 - 10/15 [place] Lvl 1.40 /2018 [facility] CHEM PANEL Glucose Lvl 130 70 - 99 10/15 [facility] HEMATOLOGY Segs 67.3 45.0 - 10/15 [place] 75.0 [facility] HEMATOLOGY Lymphocytes 17.8 20.0 - 10/15 [place] 40.0 [facility] HEMATOLOGY Monocytes 9.5 2.0 - 12.0 10/15 [facility] HEMATOLOGY Monocytes # 0.8 0.0 - 0.8 10/15 [facility] 2019 [facility] HEMATOLOGY Basophils # 0.1 0.0 - 0.2 10/15 [facility] HEMATOLOGY Eosinophils 0.3 0.0 - 0.5 10/15 [place] # [facility] HEMATOLOGY Eosinophils 4.0 0.0 - 4.0 10/15 [facility] 2019 [facility] HEMATOLOGY Basophils 1.4 0.0 - 1.0 10/15 [facility] HEMATOLOGY Lymphocytes 1.4 1.0 - 5.5 10/15 [place] # [facility] HEMATOLOGY Neutrophils 5.4 1.5 - 8.1 10/15 [place] # /2019 [facility] HEMATOLOGY Microcyte 1+ None Seen 10/15 [place] *ABN* /2018 Medical (10/15/18 5:07 AM) [place] HEMATOLOGY RBC 2.96 4.70 - 10/15 [place] 6.10 [facility] HEMATOLOGY Hct 22.6 42.0 - 10/15 [place] 54.0 /2019 [facility] HEMATOLOGY Hgb 7.5 14.0 - 10/15 [place] 18.0 [facility] HEMATOLOGY RDW 17.9 11.5 - 10/15 [facility] [place] 14.5 [facility] HEMATOLOGY MCV 76.3 80.0 - 10/15 [facility] 94.0 [facility] HEMATOLOGY MCHC 33.1 32.0 - 10/15 [facility] 36.0 [facility] HEMATOLOGY MCH 25.2 27.0 - 10/15 31.0 [facility] HEMATOLOGY MPV 8.2 7.4 - 10.4 10/15 [facility] HEMATOLOGY Platelet 371 133 - 450 10/15 [facility] HEMATOLOGY WBC 8.1 3.7 - 10.4 10/15 [facility] CHEM PANEL eGFR 14 10/14 Result Comment: [...] CHEM PANEL AGAP 15.7 10.0 - 10/14 [facility] 20.0 [facility] CHEM PANEL Calcium Lvl 8.4 8.5 - 10.5 10/14 [place] [facility] CHEM PANEL BUN 57 7 - 22 10/14 [facility] CHEM PANEL Glucose Lvl 152 70 - 99 10/14 [facility] CHEM PANEL Sodium Lvl 136 135 - 145 10/14 [facility]2018 [facility] CHEM PANEL Potassium 3.7 3.5 - 5.1 10/14 [facility] CHEM PANEL Creatinine 3.89 0.50 - 10/14 [facility] Lv 1.40 [facility] CHEM PANEL CO2 21 24 - 32 10/14 [facility] CHEM PANEL Chloride Lvl 103 95 - 109 10/14 [place] [facility] TOXICOLOGY Digoxin Lvl 0.7 0.8 - 2.0 10/14 [facility] s [facility] Culture: No Growth 10/14 [facility] Urine [facility] URINE AND UA Sq Epi None Seen 10/14 [facility] STOOL [facility] URINE AND UA RBC 15 0 - 2 10/14 [facility] STOOL [facility] URINE AND UA Bacteria Few /HPF None Seen 10/[facility] /2018 [facility] URINE AND UA Mucus Few /LPF None Seen 10/14 [facility] STOOL /LPF /2018 [facility] URINE AND UA Hyal Cast 53 0 - 2 10/14 [facility] URINE AND UA 2.0 0.1 - 1.0 10/14 [facility] Urobilinogen /2018 [facility] URINE AND UA Nitrite Negative Negative 10/14 [facility] (10/14/18 11:43 AM) [facility] URINE AND UA Leuk Est Moderate Negative 10/14 [facility] STOOL *ABN* Medical (10/14/18 11:43 AM) Cente r URINE AND UA WBC 21 0 - 5 10/14 [facility] STOOL [facility] URINE AND UA Protein 70 mg/dL Negative 10/14 [facility] STOOL mg/dL [facility] URINE AND UA Glucose Negative Negative 10/14 [facility] STOOL mg/dL mg/dL [facility] URINE AND UA Ketones Trace Negative 10/14 [facility] mg/dL mg/dL [facility] URINE AND UA Spec Grav 1.019 <=1.030 10/14 [facility] STOOL [facility] URINE AND UA pH 5.5 5.0 - 8.0 10/14 [facility] STOOL [facility] URINE AND UA Bili Negative Negative 10/14 [facility] STOOL *NA* Medical (10/14/18 11:43 AM) Cente r URINE AND UA Blood Moderate Negative 10/14 [facility] STOOL *ABN* Medical (10/14/18 11:43 AM) Cente r URINE AND UA Color Yellow Yellow 10/14 [facility] STOOL *NA* Medical (10/14/18 11:43 AM) Cente r URINE AND UA Turbidity Slight Clear 10/14 [facility] STOOL *ABN* Medical (1/15/19 11:43 AM) Cente r URINE CHEM U Urea 382 10/14 [facility] URINE CHEM U Creatinine 289.00 10/14 [facility] URINE CHEM U Chloride 10 10/14 [facility] URINE CHEM U Potassium 44.6 10/14 [facility] URINE CHEM U Sodium 27 10/14 2018 [facility] CHEM PANEL Magnesium 2.6 1.8 - 2.4 10/14 [facility] Lvl [facility] CHEM PANEL Phosphorus 3.8 2.5 - 4.5 10/14 [facility] CHEM PANEL eGFR 13 10/14 Result Comment: The [facility] eGFR is Center calculated using the CKD-EPI [...] PANEL Potassium 3.1 3.5 - 5.1 10/14 [facility] CHEM PANEL Sodium Lvl 135 135 - 145 10/14 [facility] CHEM PANEL Glucose Lvl 145 70 - 99 10/14 [facility] CHEM PANEL BUN 55 7 - 22 10/14 [facility] CHEM PANEL Creatinine 4.28 0.50 - 10/14 [facility] 1.40 [facility] CHEM PANEL Chloride Lvl 103 95 - 109 10/14 [facility] CHEM PANEL CO2 19 24 - 32 10/14 2018 [facility] CHEM PANEL Calcium Lvl 8.4 8.5 - 10.5 10/14 [facility] CHEM PANEL AGAP 16.1 10.0 - 10/14 [place] 20.0 2019 [facility] HEMATOLOGY Microcyte 1+ None Seen 10/14 [place] *ABN* /2018 [facility] (10/14/18 4:03 AM) [place] HEMATOLOGY Basophils # 0.1 0.0 - 0.2 10/14 [place] 2019 [facility] HEMATOLOGY Neutrophils 7.8 1.5 - 8.1 10/14 [place] # /2019 [facility] HEMATOLOGY Basophils 1.2 0.0 - 1.0 10/14 /2019 [facility] HEMATOLOGY Eosinophils 3.1 0.0 - 4.0 10/14 [place] 2019 [facility] HEMATOLOGY Monocytes 8.8 2.0 - 12.0 10/14 /2019 [facility] HEMATOLOGY Lymphocytes 18.9 20.0 - 10/14 [place] 40.0 [facility] HEMATOLOGY Segs 68.0 45.0 - 10/14 [place] 75.0 2019 [facility] HEMATOLOGY Eosinophils 0.4 0.0 - 0.5 10/14 [place] # 2019 [facility] HEMATOLOGY Monocytes # 1.0 0.0 - 0.8 10/14 [place] /2019 [facility] HEMATOLOGY Lymphocytes 2.2 1.0 - 5.5 10/14 [facility] # 2019 [facility] HEMATOLOGY MPV 8.2 7.4 - 10.4 10/14 [facility] HEMATOLOGY Platelet 381 133 - 450 10/14 [facility] HEMATOLOGY RDW 17.5 11.5 - 10/14 [place] 14.5 2019 [facility] HEMATOLOGY MCH 24.1 27.0 - 10/14 [place] 31.0 2019 [facility] HEMATOLOGY MCV 75.9 80.0 - 10/14 [place] 94.0 2019 [facility] HEMATOLOGY Hgb 8.2 14.0 - 10/14 [place] 18.0 2019 [facility] HEMATOLOGY Hct 25.9 42.0 - 10/14 [place] 54.0 2019 [facility] HEMATOLOGY WBC 11.5 3.7 - 10.4 10/14 [facility] HEMATOLOGY RBC 3.41 4.70 - 10/14 [place] 6.10 2019 [facility] HEMATOLOGY MCHC 31.8 32.0 - 10/14 [place] 36.0 2019 [facility] URINE CHEM U Creatinine 193.00 10/13 [facility] URINE CHEM U Sodium 47 10/13 [facility] [place] /2019 [facility] URINE CHEM U Urea 270 10/13 [place] /2019 [facility] CARDIAC BNP 414 <=100 10/13 [facility] ENZYMES pg/mL /2018 [facility] CARDIAC proBNP 6803 0 - 450 10/13 [facility] ENZYMES /2019 [facility] HEMATOLOGY Monocytes # 1.0 0.0 - 0.8 10/13 [place] /2019 [facility] HEMATOLOGY Eosinophils 0.3 0.0 - 0.5 10/13 [place] # /2019 [facility] HEMATOLOGY Lymphocytes 2.6 1.0 - 5.5 10/13 [place] # /2019 [facility] HEMATOLOGY Basophils 1.1 0.0 - 1.0 10/13 [place] /2019 [facility] HEMATOLOGY Neutrophils 6.5 1.5 - 8.1 10/13 [facility] # /2019 [facility] HEMATOLOGY Basophils # 0.1 0.0 - 0.2 10/13 [facility] s /2019 [facility] HEMATOLOGY Microcyte 1+ None Seen 10/13 [place] *ABN* /2018 Medical (10/13/18 12:40 AM) Cente r HEMATOLOGY Eosinophils 2.7 0.0 - 4.0 10/13 [facility] s /2019 [facility] HEMATOLOGY Monocytes 9.4 2.0 - 12.0 10/13 [facility] HEMATOLOGY Lymphocytes 24.9 20.0 - 10/13 [place] 40.0 2019 [facility] HEMATOLOGY Segs 61.9 45.0 - 10/13 [place] 75.0 /2019 [facility] HEMATOLOGY Hct 27.8 42.0 - 10/13 [place] 54.0 /2019 [facility] HEMATOLOGY MCV 75.7 80.0 - 10/13 [place] 94.0 2019 [facility] HEMATOLOGY RDW 17.3 11.5 - 10/13 [place] 14.5 /2019 [facility] HEMATOLOGY MCHC 32.5 32.0 - 10/13 [place] 36.0 /2019 [facility] HEMATOLOGY MPV 8.1 7.4 - 10.4 10/13 [facility] /2019 [facility] HEMATOLOGY Platelet 418 133 - 450 10/13 [facility]2019 [facility] HEMATOLOGY MCH 24.6 27.0 - 10/13 [place] 31.0 /2019 [facility] HEMATOLOGY Hgb 9.0 14.0 - 10/13 [place] 18.0 /2019 [facility] HEMATOLOGY RBC 3.67 4.70 - 10/13 [facility] [place] 6.10 /2019 [facility] HEMATOLOGY WBC 10.5 3.7 - 10.4 10/13 2018 [facility] CHEM PANEL Phosphorus 3.9 2.5 - 4.5 10/12 [facility] CHEM PANEL Magnesium 2.3 1.8 - 2.4 10/12 [facility] Lvl [facility] CARDIAC BNP 220 <=100 10/11 [facility] ENZYMES pg/mL [facility] CARDIAC proBNP 4030 0 - 450 10/11 [facility] ENZYMES [facility] PARATHYROI Ca Ion WB 1.08 1.05 - 10/11 [place] D PROFILE 1. [facility] PARATHYROI Ca Norm WB 1.08 1.05 - 10/11 [facility] D PROFILE 1. [facility] CARDIAC BNP 220 <=100 10/10 [facility] ENZYMES pg/mL [facility] CARDIAC proBNP 5585 0 - 450 10/10 [facility] ENZYMES [facility] TOXICOLOGY Digoxin Lvl 1.4 0.8 - 2.0 10/08 [place] [facility] TOXICOLOGY Digoxin Lvl 1.6 0.8 - 2.0 10/07 [facility] HEMATOLOGY Anti-Xa Low >4.00 10/05 Result [facility] Comment: Medical Heparin "Significant Center Findings called to Vernell Chavarria at 10/05/2018 13:43 by . Read Back OK." CHEM PANEL Osmolality 291 280 - 300 10/05 [facility] HEMATOLOGY Estimated % 0.0 0.0 - 7.5 10/05 [facility] Lysis [facility] HEMATOLOGY K-time Rapid 0.8 0.6 - 2.3 10/05 [facility] HEMATOLOGY R-time Rapid 0.7 0.4 - 0.7 10/05 [facility] as [facility] HEMATOLOGY G-value 13.3 5.0 - 11.6 10/05 [facility] HEMATOLOGY Max 73 52 - 71 10/05 [facility] Amplitude [facility] HEMATOLOGY Angle Rapid 79 64 - 80 10/05 [facility] HEMATOLOGY ACT (TEG) 113 86 - 118 10/05 [facility] HEMATOLOGY [place] 0.6 10/05 [facility] TUMOR AFP 2.4 0.0 - 11.0 10/05 [facility] MARKERS [facility] TUMOR CEA 1.1 0.0 - 3.0 10/05 [facility] MARKERS [facility] URINE CHEM U Osmolality 247 300 - 800 10/05 [place] [facility] URINE CHEM U Potassium 9.4 10/05 [facility] URINE CHEM U Sodium 57 10/05 [facility] URINE CHEM U Chloride 40 10/05 [facility] [address] [place] [address] URINE CHEM U Creatinine 27.80 10/05 [facility] BLOOD BANK RBC product Product available 10/05 [facility] RESULTS (10/05/18 9:51 AM) [facility] BLOOD BANK Antibody Negative 10/05 [facility] RESULTS Scrn (10/05/18 5:20 AM) [facility] BLOOD BANK ABO/Rh O POS 10/05 [facility] RESULTS [facility] CHEM PANEL Lactic Acid 1.4 0.5 - 2.2 10/05 [place] [facility] Lvl [facility] URINE AND UA Sq Epi Rare /LPF Few /LPF 10/05 [facility] STOOL [facility] URINE AND UA RBC 0-2 /HPF 0 - 2 10/05 [facility] STOOL [facility] URINE AND UA WBC 3-5 /HPF None Seen 10/05 [facility] STOOL /HPF /2019 [facility] URINE AND UA Bacteria Moderate None Seen 10/05 [place] STOOL /HPF /HPF /2018 [facility] URINE AND UA Hyal Cast 0-2 0 - 2 10/05 [facility] STOOL (10/05/18 3:12 AM) [facility] URINE AND UA Spec Grav 1.015 <=1.030 10/05 [facility] URINE AND UA pH 6.0 5.0 - 8.0 10/05 [facility] STOOL [facility] URINE AND UA Color Yellow Yellow 10/05 [facility] STOOL *NA* [facility] (10/05/18 3:12 AM) Center URINE AND UA Protein Negative Negative 10/05 [facility] (10/05/18 3:12 AM) [facility] URINE AND UA Bili Negative Negative 10/05 [facility] STOOL *NA* [facility] (10/05/18 3:12 AM) Center URINE AND UA Blood Negative Negative 10/05 [facility] (10/05/18 3:12 AM) [facility] URINE AND UA Turbidity Slight Cloudy Clear 10/05 [facility] STOOL (10/05/18 3:12 AM) /2018 [facility] URINE AND UA 0.2 0.1 - 1.0 10/05 [facility] STOOL Urobilinogen /2018 [facility] URINE AND UA Glucose Negative Negative 10/05 [facility] STOOL (10/05/18 3:12 AM) /2018 [facility] URINE AND UA Ketones Negative Negative 10/05 [facility] STOOL *NA* /2018 [facility] (10/05/18 3:12 AM) [place] URINE AND UA Nitrite Negative Negative 10/05 [facility] STOOL (10/05/18 3:12 AM) /2018 [facility] URINE AND UA Leuk Est Trace Negative 10/05 [facility] STOOL *ABN* /2018 [facility] (10/05/18 3:12 AM) [place] BLOOD BANK RBC product Product available 10/05 [facility] RESULTS (10/05/18 3:08 AM) [facility] BLOOD BANK Antibody Negative 10/05 [facility] RESULTS Scrn (10/05/18 12:22 AM) [facility] BLOOD BANK ABO/Rh O POS 10/05 [facility] RESULTS /2018 [facility] CARDIAC Troponin-I 0.03 0.00 - 10/05 [facility] ENZYMES 0.40 [facility] CARDIAC Total CK 205 12 - 191 10/05 [facility] ENZYMES [facility] CHEM PANEL Procalcitoni 1.62 0.00 - 10/05 [facility] n Lvl 0.10 [facility] CHEM PANEL ALT 20 0 - 65 10/05 [facility] [address] [place] [address] CHEM PANEL AST 20 0 - 37 10/05 [facility] [address] [place] [address] CHEM PANEL Alk Phos 84 39 - 136 10/05 [facility] [address] [place] [address] CHEM PANEL Bili Total 0.3 0.2 - 1.3 10/05 [facility] [address] [place] [address] CHEM PANEL Total 6.3 6.4 - 8.4 10/05 [facility] Protein [facility] CHEM PANEL Albumin Lvl 3.0 3.5 - 5.0 10/05 [place] [facility] CHEM PANEL B/C Ratio 18 6 - 25 10/05 [facility] [address] [place] [address] CHEM PANEL A/G Ratio 0.9 0.7 - 1.6 10/05 [facility] [address] [place] [address] CHEM PANEL Globulin 3.3 2.7 - 4.2 10/05 [facility] CHEM PANEL Lactic Acid 1.4 0.5 - 2.2 10/05 [place] Lvl /2018 [facility] HEMATOLOGY Plt Morph Normal 10/05 [facility] (10/04/18 11:58 PM) /2018 [facility] HEMATOLOGY PTT 52.7 22.9 - 10/05 [facility] 35.8 /2019 [facility] HEMATOLOGY INR 1.60 0.85 - 10/05 [place] 1.17 /2018 [facility] HEMATOLOGY PT 18.7 12.0 - 10/05 [facility] 14.7 /2019 [facility] CHEM PANEL BUN 34 7 - 22 01/10 [facility] CHEM PANEL Glucose Lvl 294 70 - 99 01/10 [facility] CHEM PANEL eGFR 61 01/10 [facility] Comment: [facility] eGFR is calculated using the CKD-EPI formula. [...] Calcium Lvl 9.0 8.5 - 10.5 01/10 [place] CHEM PANEL AGAP 11.7 10.0 - 01/10 20.0 [place] CHEM PANEL Sodium Lvl 138 135 - 145 01/10 [place] CHEM PANEL Creatinine 1.18 0.50 - 01/10 Lvl 1.40 [place] CHEM PANEL Chloride Lvl 105 95 - 109 01/10 [place] CHEM PANEL Potassium 3.7 3.5 - 5.1 01/10 Lvl [place] CHEM PANEL CO2 25 24 - 32 01/10 [facility] HEMATOLOGY MPV 8.8 7.4 - 10.4 01/10 [facility] HEMATOLOGY RDW 18.1 11.5 - 01/10 MH 14. /2015 [facility] HEMATOLOGY MCH 26.2 27.0 - 01/10 [facility] 31.0 /2015 [facility] HEMATOLOGY MCHC 32.6 32.0 - 01/10 MH 36.0 [facility] HEMATOLOGY Platelet 331 133 - 450 / MH /2015 [facility] HEMATOLOGY Hct 32.4 42.0 - 01/10 [facility] 54.0 /2016 [facility] HEMATOLOGY Hgb 10.6 14.0 - 01/10 [facility] 18.0 [place] HEMATOLOGY MCV 80.4 80.0 - 01/10 MH 94.0 /2016 [facility] HEMATOLOGY RBC 4.03 4.70 - 01/10 MH 6.10 [facility] HEMATOLOGY WBC 22.3 3.7 - 10.4 01/10 MH /2015 [facility] HEMATOLOGY MCH 26.4 27.0 - 01/09 MH 31.0 /2015 [facility] HEMATOLOGY MCHC 32.5 32.0 - 01/09 MH 36.0 /2015 [facility] HEMATOLOGY MCV 81.2 80.0 - 01/09 MH 94.0 /2015 [facility] HEMATOLOGY Platelet 270 133 - 450 01/09 MH /2015 [facility] HEMATOLOGY MPV 8.3 7.4 - 10.4 01/09 MH /2015 [facility] HEMATOLOGY RDW 18.1 11.5 - 01/09 MH 14. /2015 [facility] HEMATOLOGY WBC 15.8 3.7 - 10.4 01/09 MH /2015 [facility] HEMATOLOGY RBC 4.13 4.70 - 01/09 6.10 [facility] HEMATOLOGY Hct 33.5 42.0 - 01/09 MH 54.0 /2015 [facility] HEMATOLOGY Hgb 10.9 14.0 - 01/09 MH 18.0 [facility] ELECTROLYT AGAP 9.9 10.0 - 01/09 ES 20.0 [facility] ELECTROLYT eGFR 65 01/09 Result ES /2015 Comment: [facility] eGFR is calculated using the CKD-EPI formula. [...] Calcium Lvl 8.6 8.5 - 10.5 01/09 [facility] ELECTROLYT Glucose Lvl 209 70 - 99 01/09 ES [facility] ELECTROLYT BUN 23 7 - 22 01/09 [facility] ELECTROLYT Creatinine 1.12 0.50 - 01/09 ES Lvl 1.40 [facility] ELECTROLYT Sodium Lvl 139 135 - 145 01/09 ES [facility] ELECTROLYT Potassium 3.9 3.5 - 5.1 01/09 [facility] Lvl /2015 [facility] ELECTROLYT Chloride Lvl 107 95 - 109 01/09 [facility] ELECTROLYT CO2 26 24 - 32 01/09 ES [facility] VIRAL - Influ B Negative Negative 01/09 SEROLOGY (01/10/16 5:04 AM) [place] VIRAL - Influ A Negative Negative 01/09 SEROLOGY (01/10/16 5:04 AM) [place] CHEM PANEL eGFR 56 01/08 Result Comment: [facility] eGFR is calculated using the CKD-EPI formula. [...] Creatinine 1.28 0.50 - 01/08 Lvl 1.40 [facility] HEMATOLOGY PTT 49.7 22.9 - 01/08 MH 35.8 /2016 [facility] HEMATOLOGY Platelet 242 133 - 450 01/08 /2015 [facility] CHEM PANEL Procalcitoni 0.32 0.00 - 01/08 n Lvl 0.10 [facility] VIRAL - Influ A Negative Negative 01/08 SEROLOGY (01/09/16 4:21 AM) /2015 [place] VIRAL - Influ B Negative Negative 01/08 SEROLOGY (01/09/16 4:21 AM) /2015 [place] CHEM PANEL Lactic Acid 0.9 0.5 - 2.2 01/08 Lvl /2015 [facility] CARDIAC Troponin-I 0.07 0.00 - 01/08 ENZYMES 0.40 [facility] CARDIAC CK MB 0.9 0.5 - 3.6 01/08 ENZYMES /2015 [facility] CARDIAC Total CK 122 12 - 191 01/08 ENZYMES /2015 [facility] CARDIAC BNP 217 <=100 01/08 EN[facility] pg/mL /2015 [facility] CARDIAC CK MB Index 0.7 0.0 - 2.5 01/08 EN[facility]YM[facility] /2015 [facility] CHEM PANEL Glucose Lvl 114 70 - 99 01/08 [facility] CHEM PANEL BUN 20 7 - 22 01/08 [facility] CHEM PANEL Potassium 4.2 3.5 - 5.1 01/08 Lvl /2015 [facility] CHEM PANEL Sodium Lvl 137 135 - 145 01/08 [facility] CHEM PANEL A/G Ratio 0.8 0.7 - 1.6 01/08 [facility] CHEM PANEL Globulin 4.3 2.0 - 4.0 [...] CHEM PANEL Total 7.7 6.4 - 8.4 04 Protein /2015 [facility] CHEM PANEL Albumin Lvl 3.4 3.5 - 5.0 01/08 /2015 [facility] HEMATOLOGY MCV 81.3 80.0 - 01/08 94.0 /2015 [facility] HEMATOLOGY MCHC 32.4 32.0 - 01/08 MH 36.0 /2015 [facility] HEMATOLOGY MCH 26.4 27.0 - 01/08 MH 31.0 /2015 [facility] HEMATOLOGY RDW 18.3 11.5 - 01/08 MH 14.5 /2015 [facility] HEMATOLOGY MPV 8.2 7.4 - 10.4 01/08 /2015 [facility] HEMATOLOGY RBC 4.33 4.70 - 01/08 MH 6.10 /2015 [facility] HEMATOLOGY WBC 19.3 3.7 - 10.4 01/08 [facility] HEMATOLOGY Hgb 11.4 14.0 - 01/08 MH 18.0 /2015 [facility] HEMATOLOGY Hct 35.2 42.0 - 01/08 MH 54.0 /2015 [facility] HEMATOLOGY Basophils 0.4 0.0 - 1.0 01/08 [facility] HEMATOLOGY Eosinophils 0.1 0.0 - 4.0 01/08 [facility] HEMATOLOGY Lymphocytes 1.7 1.0 - 5.5 01/08 # /2015 [facility] HEMATOLOGY Segs-Bands # 15.2 1.5 - 8.1 01/08 [facility] HEMATOLOGY Monocytes # 2.3 0.0 - 0.8 01/08 [facility] HEMATOLOGY Basophils # 0.1 0.0 - 0.2 01/08 [facility] HEMATOLOGY Segs 78.5 45.0 - 01/08 75.0 /2015 [facility] HEMATOLOGY Lymphocytes 9.1 20.0 - 01/08 40.0 /2015 [facility] HEMATOLOGY Monocytes 11.9 2.0 - 12.0 01/08 [facility] Pathology Reports No Data Provided for This Section Diagnostic Reports Report Value Date Source Retro[facility] EXAM[facility] DATE: 10/13/2018 9:29 [facility] INDICATION: - eval bilateral kidneys, obstructi on? ADDITIONAL INFORMATION: None. COMPARISON: CT abdomen pelvis 10/10/2018 TECHNIQUE: Multiplanar tiffany agnes and color Doppler ultrasound of the kidneys [...] Left kidney: Size: 4.3 cm in width. Evalu ation of the remainder of the dimensions is limited by overlying bowel gas. The left kidney is poorly vi sualized, but there is no hydronephrosis or mass identified Bladder: Normal. Free fluid: None. Other: None. IMPRESSION: 1. 5.6 cm mass arising from the right kidney most likely represents renal cell carcinoma. 2. Poorly visualized left k idney. Within this limitation, no hydronephrosis is identified bilaterally. Abdomen/Pelvis w IV EXAM: CT ABDOMEN AND PELVIS WITH CONTRAST [facility] contrast CT DATE: 10/10/2018 14:27 [facility] Center INDICATION: - abdominal distention ADDITIONAL INFORMATION: Yaneth ent presented on 10/05/2018 for concern for perforated [...] and adjacent atelectasis. Liver: 1.6 cm arterially enh ancing lesion in segment 6 (image 37 of series 5) that remains hyperdense on delayed imaging to the level of the blood pool (image 39 of series 9). Biliary tree: No intra- or extrahepatic biliary ductal dilation. Gallbladder: Surgically absent. Pancreas: Normal. Spleen: Normal. Adrenals: Normal. Kidneys and ureters: There i s a 5.8 x 5.0 x 4.2 cm arterially enhancing mass in the interpolar region of the right kidney. There are scattered cysts in the kidneys, some of which are too small to furthe r characterize. The largest on the left is a 1.7 cm cyst with simple density. No hydronephrosis. Bladder: Decompressed with F oley catheter in place. Small amount of air in the bladder. Reproductive organs: Status post prostatectomy. Gastrointestinal tract: Stomach: Normal. Small bowel: Normal. Colon: There are areas of ga seous distention of the sigmoid colon which measures up to 7.8 cm in diameter without evidence of obstruction. Appendix: Normal. Peritoneum, mesentery and re troperitoneum: The previously identified well marginated fluid collection adjacent to the rectosigmoid and just superior to the bladder persists. There is a small amount of i ncrease in ill-defined fluid adjacent to this fluid collection. The fluid collection itself appears slightly smaller, previously approximately 7.4 x 4.5 cm, now 5.2 x 3.0 cm. There is persistent mild me sorectal fat stranding. Nonspecific presacral fl uid and fat stranding seen. Lymph nodes: Normal. Vasculature: Aorta and branches: Severe a therosclerotic calcification abdominal aorta and iliac vessels. IVC and veins: Normal. Portal vasculature: Normal. Bones: Status post post righ t total hip arthroplasty. 2.0 x 1.8 cm lucent lesion in L4 likely represents a large Schmorl's node. Soft tissues: Small fat-cont aining left inguinal hernia. 2.3 x 1.7 cm subcutaneous lesion at the right flank may represent a small epidermal inclusion cyst. IMPRESSION: 1. Persistent nonspecific f luid collection within the rectosigmoid and superior bladder wall which appears slightly smaller. 2. Enhancing right renal mass consistent with renal cell carcinoma. 3. Tiny hepatic segment 6 hemangioma. 4. Gaseous distention of th e sigmoid colon to 7.7 cm without evidence of obstruction. 5. Small bilateral pleural effusions. Abdomen acute series w EXAM: XR ABDOMEN 2 VIEWS 10/10/2018 [facility] chest 1 view DX EXAM: CHEST 1 VIEW Center DATE: 10/10/2018 9:04 [facility] C[facility] INDICATION: - concern for ileus ADDITIONAL INFORMATION: None. COMPARISON: Chest x-ray 10/10/2018, KUB 10/09/19 19. TECHNIQUE: A single frontal view of the chest and upright and/or decubitus and supine abdominal radiographs were done. Number of images: 7 FINDINGS: Lines and tubes: Iraheta catheter. Chest: There is mild bilater al lower lobe residual airspace disease. The remainder of lungs are clear. Pneumothorax: None Vascularity: Normal pulmonary vascularity.. Heart size: Upper limits of normal for technique . The mediastinal contours are normal. Bowel: No [...] Tissues: Mild. IMPRESSION: 1. Mild interval increase i n size of the dilated colon, the largest [...] DX EXAM: XR CHEST 1 VIEW 10/10/2018 [facility] DATE: 10/10/2018 3:00 [facility] Center INDICATION: SOB - SOB COMPARISON: Semierect AP chest x-ray 2 days prio r. TECHNIQUE: AP chest FINDINGS: Patchy opacities in the lowe r lungs have improved from the prior exam however there is residual opacity in the left lung base. This opacity may represent subsegmental atelectasis however superimposed consolidation cannot be excluded. The cardiac mediastinal silh ouette is prominent but stable. Musculoskeletal findings are unchanged. IMPRESSION: Improved aerati on of the lungs with residual opacity in the left lung base. Abdomen AP DX EXAM: XR ABDOMEN 1 VIEW 10/09/2018 [facility] DATE: 10/09/2018 20:22 [facility] Center INDICATION: - not eating diet, distended ADDITIONAL INFORMATION: None. COMPARISON: None. TECHNIQUE: AP view of the abdomen. Number of im ages: 4 FINDINGS: Transesophageal suction tube: None. Transesophageal feeding tube: None. Other tubes, lines, coils an d hardware: Iraheta catheter. Right hip total prosthesis. Bowel: The colon is mildly d ilated up to 6.6 cm with a larger segment of dilatation seen overlying the lumbar spine measuring up to 10 cm. There is a paucity of small bowel gas. Fecal Sheldon: Moderate. Bones: No acute abnormalities seen. . [...] DX EXAM: XR CHEST 1 VIEW 10/08/2018 [facility] edical DATE: 10/08/2018 3:00 [facility] Center INDICATION: - pulmonary edema. FINDINGS: Comparison is made to October 07. Cardiomediastinal silhouette is prominent but unchanged. There is smooth narrowing of the mid trachea. Consider PA and lateral views. Small bilateral pleural effu sions. There are patchy alveolar opacities in the lungs with a lower lobe predilection which could be due to edema or pneumonia. IMPRESSION:: No significant change. Chest 1view DX EXAM: XR CHEST 1 VIEW 10/07/2018 [facility] edical DATE: 10/07/2018 6:18 [facility] Center INDICATION: - crackles on exam. FINDINGS: Comparison is made to October 05. Cardiomediastinal silhouette is unchanged. There are alveolar opacities developing in the lungs with a perihilar and lower lobe predilection. Small left pleural effusion. IMPRESSION: 1. Developing bilateral airs pace opacities with a lower lobe predilection could be due to edema or pneumonia. 2. Small left pleural effusion. Chest 1view DX EXAM: XR CHEST 1 VIEW 10/04/2018 [facility] edical DATE: 10/04/2018 23:54 [facility] Center INDICATION: - Undifferentiated Sepsis COMPARISON: Chest x-ray 01/11/2016. TECHNIQUE: AP chest. UT SECTION: ER FINDINGS: Lines, tubes and hardware: None. Lungs and pleura: Linear opa cities are present at the left lung base, likely subsegmental atelectasis. Calcified granulomas in the right upper lobe. No pleural effusion. No pneumothorax. Heart and mediastinum: The h eart size is borderline enlarged but unchanged. There is mild tortuosity of the thoracic aorta. Bones: No acute abnormality. IMPRESSION: 1. Left basilar subsegmental atelectasis. 2. Borderline cardiomegaly. Chest 1view DX Clinical Indication: Pneumonia 01/11/2016 [facility] Comparison: 01/10/2016 FINDINGS: AP chest radiograph was obtained. HEART: Mild cardiomegaly. PULMONARY VASCULATURE: Mild pulmonary vasculature congestion versus perihilar infiltrates. LUNGS: Lung volumes are maintained. There are no pneumothoraces noted. Costophrenic sulci: -Right costophrenic sulcus : The right costophrenic sulcus is sharp without evidence for pleural effusions or thickening. -Left costophrenic sulcus: The left costophrenic sulcus is sharp without evidence for pleural effusions or thickening. BONES: The visualized osseous structures are unr emarkable. IMPRESSION: 1. Mild cardiomegaly with mi ld pulmonary vascular congestion versus nonspecific airspace infiltrate. This is slightly improved when compared to the prior study. SL: AMY-PC Chest 1view DX Study: Chest 1view DX 01/10/2016 3:00 AM CDT 12/29 [facility] Ordering Physician: Artemio Lopez MD Clinical Indication: Pneumonia Comparison: 01/09/2016 FINDINGS: Heart size upper limit of no rmal or mildly enlarged, with mild tortuosity of the aorta. Interstitial markings are prominent. A small patchy infiltrate is suspected in left lung base. No pleural effusion is visualized. Regional osseous structures are unremarkable. No soft tissue abnormalities are seen. IMPRESSION: A small patchy i nfiltrate is suspected in the left lung base, new as compared to the previous study. Heart size upper limit of normal or mildly enlar ged. SL: [id number] Brain wo contrast CT Clinical Indication: Altered level of c onsciousness 01/09/2016 [facility] Comparison: None TECHNIQUE: CT images were ob tained from the foramen magnum to the vertex [...] base regions appear unremarkable. VENTRICLES: The lateral vent ricles, third and fourth ventricles appear unremarkable. The basilar cisterns are normal. ORBITS, MASTOIDS AND PARANAS AL SINUSES: Polyp or retention cyst left maxillary [...] or retention cyst left maxillary sinus. SL: AMY-CODEY Chest 1view DX Clinical Indication: Chest p ain HX: pt called EMS x 6 in the last 3 days for falls. [email or web address] called out d/t pt falling while trying to ambulate with walker. EMS reports pt was tachypneic with RA sats in the 80s upon their arrival. 01/09/2016 [facility] Comparison: 02/09/2012 FINDINGS: AP chest radiograph was obtained. HEART: Mild cardiomegaly. PULMONARY VASCULATURE: Mild pulmonary vasculature congestion versus perihilar infiltrates. LUNGS: Lung volumes are maintained. There are no pneumothoraces noted. Costophrenic sulci: -Right costophrenic sulcus : The right costophrenic sulcus is sharp without evidence for pleural effusions or thickening. -Left costophrenic sulcus: The left costophrenic sulcus is sharp without evidence for pleural effusions or thickening. BONES: The visualized osseous structures are unr emarkable. IMPRESSION: 1. Mild cardiomegaly with mi ld pulmonary vascular congestion versus nonspecific airspace infiltrate. SL: AMY-CODEY Consultation Notes No Data Provided for This Section Discharge Summaries No Data Provided for This Section History and Physicals No Data Provided for This Section Vital Signs Vital Sign Value Date Comments Source Systolic (mm Hg) 107 10/15/2018 [facility] dical [place] Diastolic (mm Hg) 66 10/15/2018 [facility] Respitory Rate 18 10/15/2018 [facility] Heart Rate 67 10/15/2018 [facility] Temperature Oral (F) 97.6 F 10/15/2018 [facility] Respitory Rate 16 10/15/2018 [facility] Heart Rate 70 10/15/2018 [facility] Systolic (mm Hg) 109 10/15/2018 [facility] dical Center Diastolic (mm Hg) 67 10/15/2018 [facility] Center Temperature Oral (F) 98.4 F 10/15/2018 [facility] Systolic (mm Hg) 115 10/15/2018 [facility] dical Center Diastolic (mm Hg) 74 10/15/2018 [facility] Respitory Rate 16 10/15/2018 [facility] Heart Rate 79 10/15/2018 [facility] Temperature Oral (F) 99.3 F 10/15/2018 [facility] BMI Calculated 29.35 10/14/2018 [facility] Weight 100.9 10/14/2018 [facility] Height 185.42 cm 10/14/2018 [facility] Weight 98.136 10/13/2018 [facility] Weight 112 10/10/2018 [facility] Height 182.88 cm 10/05/2018 [facility] BMI Calculated 33.98 10/05/2018 [facility] Center BMI Calculated 33.98 10/05/2018 [facility] Height 182.88 cm 10/05/2018 [facility] Temperature Oral (F) 97.4 F 01/11/2016 [facility] Rate 97 01/11/2016 [facility] Rate 18 01/11/2016 [facility] Systolic (mm Hg) 147 01/11/[facility] Diastolic (mm Hg) 93 01/11/[address] Resp[facility] Rate 16 01/11/2016 [facility] Rate 95 01/11/2016 [facility] Temperature Oral (F) 97.6 F 01/11/2016 [facility] Systolic (mm Hg) 150 01/11/2016 [facility] Diastolic (mm Hg) 91 01/11/[address] Temperature Oral (F) 97.9 F 01/11/2016 [facility] Rate 93 01/11/2016 [facility] Respitory Rate 18 01/11/2016 [facility] Systolic (mm Hg) 144 01/11/2016 [facility] Diastolic (mm Hg) 89 01/11/[address] Weight 106.506 01/09/2016 [facility] BMI Calculated 30.98 01/09/2016 [facility] Height 185.42 cm 01/09/2016 [facility] Encounters Location Location Encounter Encounter Reason Attending ADM DC Stat us Source Details Type Number For Provider Date Date [facility] [id number] Artemio 01/08 01/10 Chriss Lopez /2015 [facility] Inpatient [id number] Wiley 10/05 10/15 Ruben Banerjee Efra /2018 [facility] Procedures Procedure Code Date Perfomer Comments Source Operation on hip [id number] [facility] Assessment and Plan Assessment and Plan Date Source Extracted from:Title: EGS 10/15/2018 [facility] Author: Beatriz Godinez MD Date: 10/05/18 EGS Consult Note Admitting Date: Patient was admitted on 10/05/2018 Admitting Physician: Delia Garza MD Admitting Diagnosis: Diverticulitis of intestine, part unspec ified, without perforation or abscess without bleeding (K57.92) None Specified=FULL CODE Chief Complaint: "stomach pain" HPI: Patient is a 73 year old male with exten sive PMH as below who arrived as transfer from an outside hospital where he was admitted for suspected perforated diverticulum. 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 Per at bedside, she believes he has had increasing abdominal pain and distention in the last 3-4 weeks. Patient additionally had nausea, vomit ing, and diarrhea with bowel incontinenc e at baseline. Patient received 3L crystalloid at OSH and additional 2L in ED here. Upon exam in ED, patient was afebril with BP 80s/50s per cuff reading and HR 1 20s. Patient was started on antibiotics and admitted to STICU for further management and workup. PMH: HTN HLD DM CHF COPD Afib on home eliquis (last dose 10/04) IN PSH: Appendectomy Cholecystectomy Ventral hernia repair FH: Non-contributory SoH: Tobacco:50+ pack years Etoh: denies Street drugs: denies Allergies: metFORMIN, Dilaudid Medications (12) Active Scheduled Meds (4): 10/05/18 acetaminophen (Tylenol) 1,000 mg PO Q6H 10/05/18 ciprofloxacin 400 mg IVPB [id number] 10/05/18 gabapentin (gabapentin 100 mg oral capsule) 100 mg PO Q8H 10/05/18 metroNIDAZOLE (Flagyl) 500 mg IVPB [id number] Unscheduled Meds: None PRN Meds (2): 10/05/18 albuterol-ipratropium (DuoNeb inhalation solution) 3 ml NEB PRN 10/04/18 sodium chloride (Saline Flush 0.9%) 10 mL IVP PRN One Time Meds (4): 10/05/18 (Completed) Electrolyte Soluti on (Isolyte S PH-7.4 (Bolus) IV) 2,000 mL IV ONCE 10/04/18 (Completed) cefepime 1 gm IVPB ONCE 10/05/18 (Ordered) metoprolol (metoprolol 5 mg/5 ml INJ) 5 mg IVP ONCE 10/04/18 (Completed) piperacillin-tazobactam (Zosyn) 3.375 gm IVPB ONCE Continuous Infusions (2): 10/05/18 Electrolyte Solution 1,000 mL ( Isolyte S PH 7.4 1,000 mL) 1,000 mL 50 ml/hr 10/05/18 norepinephrine 8 mg + Sodium Ch loride 0.9% IV 242 mL (Levophed 8 mg in 250 mL (Titrate.) IV 8 mg + Sodium Chloride 0.9% IV 242 mL) 8 mg Titrate ROS: Constitutional symptoms: Denies fever, decreased appetite, l ethargy HEENT: Denies ear pain, nasal drainage, sore throat, h oarseness, visual changes Cardiovascular: Denies murmurs, chest pain Respiratory: Denies cough, wheezing, difficulty breathing Gastrointestinal: + abdominal pain, + na usea, + vomiting, + diarrhea, + bowel incontinence Genitourinary: Denies dysuria, hematuria, decreased or absen t urine output Musculoskeletal: Denies joint swelling, tenderness, weakness Neurological: Denies seizures, syncope, loss of consciousness, numbness, tingling PE: Vitals and Measurements HT: 182.88 cm HT Collection: Stated WT: 125 kg WT Collection: Measured BP: 73/44 HR(Apical): 98 bpm HR(Peripheral): 110 bpm RR: 17 BRMIN T(Ax): 97.9 DegF T(O): 98.4 DegF BP Site: Right arm BP Collection: Electronic BP Collecti on Position: Lying BMI: 33.98 m2 BSA: 2.4026 m2 SpO2: 99 % O2 Flow Rate: 2 L/min Constitutional:NAD Neuro:awake, alert HEENT:NCAT, hard of hearing CV:tachycardic, +2 radial pulses Pulm:symmetric chest rise, no respiratory distress Abdomen:soft, tender more on R side, distended, midline surg ical scar MSK:moves all extremities Skin: warm, dry [...] 10/05 0308 RBC product Product available 10/05 002 ABO/Rh O POS Antibody Scrn Negative XM [...] Tubes, and Drains: 10/05/2018 04:22 Indwelling Urinary Cath eter: Urethral 16 Faroese Indwelling/Continuous 10/05/2018 03:02 Central Lines: Femoral, right Non-tunneled (most common) 10/04/2018 23:55 Peripheral Lines: Upper arm Left 18 gauge Over the needle catheter Assessment/Plan: Patient is a 73 year old male with PMH o f HTN, HLD, DM, CHF, COPD, IN, and A fib (on home eliquis, last dose 10/04) who presents with abdominal pain and concern for perforated diverticulum - on arrival to ED patient hypotensive a nd tachycardic to 120's despite s/p 5L 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 I have reviewed the pertinent laboratory values and imaging studies. I agree with the assessment and plan as documented in the attached note and as detailed below: Acute sigmoid diverticulitis -- No pneum operitoneum or free fluid noted on our review [...] Acute kidney injury -- Cr 3.36 on admiss ion. Fluid resuscitate. Renally dose medications. Hyperkalemia -- Treat medically. May nee d dialysis/ CRRT if KATHLEEN does not improve. Hyponatremia -- Fluid resuscitate, follow. CHF, unspecified -- Need to get details regarding his CHF from his application dba. Obtain echo here for baseline. Atrial fibrillation -- Hold Eliquis given possible need for surgery. Admit to STICU. Delia Garza MD Extracted from:Title: Progress Note * 01/11/2016 [facility] Author: Stew Gonzalez MD Date: 01/10/16 Impression and Plan ASESSMENT: Sepsis with fever, tachycardia, tachypnea, likely secondary to pneumonia. Pneumonia. Encephalopathy, likely metabolic encephalopathy from pneumon ia. Frequent falls, likely secondary to physical deconditioning [...] MAR< continue other medications Plan of Care No Data Provided for This Section Social History Social History Date Source Social History TypeResponse 01/09/2016 [facility] Substance Abuse Use: None. Sexual Sexually active: No. Exercise Exercise duration: 00. Employment/School Status: Retired. Alcohol Never Smoking Status Former smoker; Exposure to Tobacco Smoke None; Cigarette Smoking Last 365 Days No; Reg Smoking Cessation Counseling No entered on: 10/07/18 Social History TypeResponse 01/09/2016 [facility] Substance Abuse Use: None. Sexual Sexually active: No. Exercise Exercise duration: 00. Employment/School Status: Retired. Alcohol Never Smoking Status Current every day smoker; Exposure to To bacco Smoke None; Cigarette Smoking Last 365 Days No; Reg Smoking Cessation Counseling No Family History No Data Provided for This Section Advance Directives No Data Provided for This Section Functional Status No Data Provided for This Section
--- OUTSIDE RECORDS SUMMARY | 2020-09-29 12:30 | XMS REPORT | Continuity of Care Document ---
:1945 Author Organization [facility] t Address [address] [place] [address] Care Team Providers Name Role Phone Alonzo Altman MD Primary Care Physician Lurdes Foster NP Attending Clinician Adam MIR Attending Clinician Kamilah Simpson MD Attending Clinician Beena Sanches MD Attending Clinician ADAM Attending Clinician Unavailable Elías Bolanos MD Attending Clinician Miguel MIR Attending Clinician Cosme MIR Attending Clinician Elías BOLANOS Attending Clinician Unavailable ARIELLE MCCONNELL Attending Clinician Unavailable OMAR Attending Clinician Unavailable Alvino Cano Attending Clinician James LONDONO Attending Clinician Unavailable Doron Lopez Attending Clinician ADAM Admitting Clinician Unavailable MIGUEL Admitting Clinician Unavailable ARIELLE MCCONNELL Admitting Clinician Unavailable OMAR Admitting Clinician Unavailable Roe Garza Admitting Clinician James LONDONO Admitting Clinician Unavailable Doron Lopez Admitting Clinician Payers Payer Name Policy Type Policy Effective Date Expiration Date Sour ce Number MEDICAREMEDICARE A [id number] 2008 EDDI Kidd [id number] 2007- 00:00:00 - Medical PresentMedicare Center MEDICAIDMEDICAID OF [id number] 2018 EDDI [id number] 00:00:00 - Medical -PresentMedicaid Center Problems Condition Condition Condition Status Onset Resolution Last Treating Co mments Source Name Details Category Date Date Treatment Clinician Date Hematuria Hematuria Disease Active [facility] Medical 00 [place] Palliative Palliative Disease Active [facility] care care 22 [facility] - encounter encounter 00:00: Medi [place] 00 Center KATHLEEN (acute KATHLEEN (acute Disease Active [facility] kidney kidney 4-20 [facility] - injury) injury) 00:00: Medical 00 [place] 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 Aspiration Aspiration Disease Active [facility] pneumonia pneumonia 2-26 [facility] - [facility]: Medical 00 [place] GI bleed GI bleed Disease [facility] Medical 00 [place] DIVERTICUL Diagnosis Active 2018-12-23 Memoria ITIS 1-05 18:32:00 l 00:00: Chriss DIVERTICUL 00 ITIS Active 10/04/2018 [facility] DIVERTICUL Diagnosis Active 2018-10-05 Memoria ITIS WITH 1-05 00:22:00 l BLEEDING/ 00:00: Chriss KATHLEEN DIVERTICUL 00 ITIS WITH BLEEDING/ KATHLEEN Active 10/04/2018 [facility] Shortness Shortness Disease Active [facility] breath of breath 3-26 [facility] - 00[facility]: Medical 00 Center CAD CAD Disease Active [facility] (coronary (coronary 02-27 [facility] - artery artery 00:00: Medical disease) disease) 00 Center Tricuspid Tricuspid Disease Active [facility] regurgitat regurgitat 5-31 Ju kes - ion ion 00:00: Medical 00 [place] FALL/SOB Diagnosis Active 2017-04-23 M emoria 01-08 12:37:00 l FALL/SOB 00:00: Marquez n 00 Active 01/09/2016 [facility] Chest pain Chest pain Disease Active 2014-[address] [facility] - 00:[facility]: [address] Acute Problem 2019-05-04 Memor ia kidney 15:19:28 l failure Acute Chriss with kidney tubular failure necrosis with tubular necrosis 05/04/2019 [facility] Severe Problem 2019-05-04 Memor ia sepsis 15:19:28 l with Severe [place] septic sepsis shock with septic shock 05/04/2019 [facility] Diverticul Problem 2019-05-04 M emoria itis of 15:19:28 l large Chriss intestine Diverticul with itis of perforatio large n and intestine abscess with without perforatio bleeding n and abscess without bleeding 05/04/2019 [facility] Hypertensi Problem 2019-05-04 M emoria ve heart 15:19:28 l and Chriss chronic Hypertensi kidney ve heart disease and with heart chronic failure kidney and stage disease 1 through with heart stage 4 failure chronic and stage kidney 1 through disease, stage 4 or chronic unspecifie kidney d chronic disease, kidney or disease unspecifie d chronic kidney disease 05/04/2019 [facility] Hypo-osmol Problem 2019-05-04 M emoria ality and 15:19:28 l hyponatrem Marquez n ia Hypo-osmol ality and hyponatrem ia 05/04/2019 [facility] Acquired Problem 2019-05-04 Mem oria coagulatio 15:19:28 l n factor 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 05/04/2019 [facility] 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, 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, except renal pelvis 05/04/2019 [facility] Hyperkalem Problem 2019-05-04 M emoria ia 15:19:28 l Chriss Hyperkalem ia 05/04/2019 [facility] Personal Problem 2019-05-04 Mem oria history of 15:19:28 l nicotine Personal Herm raul dependence history of nicotine dependence 05/04/2019 [facility] Unspecifie Problem 2019-05-04 M emoria d atrial 15:19:28 l fibrillati Marquez n on Unspecifie d atrial fibrillati on 05/04/2019 [facility] USP Problem 2019-05-04 Me moria (current) 15:19:28 l use of Long Chriss anticoagul term ants (current) use of anticoagul ants 9 [facility] Emphysema, Problem 2019-05-04 M emoria unspecifie 15:19:28 l d Chriss Emphysema, unspecifie d 05/04/2019 [facility] Heart Problem 2019-05-04 Memor ia failure, 15:19:28 l unspecifie Heart Muriel nn d failure, unspecifie d 05/04/2019 [facility] Chronic Problem 2019-05-04 Hi michael kidney 15:19:28 l disease, Chronic Muriel nn stage 3 kidney (moderate) disease, stage 3 (moderate) 05/04/2019 [facility] Type 2 Problem 2019-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 ia 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:19:28 l mellitus Type 2 Marquez n with diabetes diabetic mellitus chronic with kidney diabetic disease chronic kidney disease 05/04/2019 [facility] Unspecifie Problem 2019-05-04 M emoria d hearing 15:19:28 l loss, [place] unspecifie Unspecifie d ear d hearing loss, unspecifie d ear 05/04/2019 [facility] Hyperlipid Problem 2019-05-04 M emoria emia, 15:19:28 l unspecifie Marquez n d Hyperlipid emia, unspecifie d 05/04/2019 [facility] Anemia in Problem 2019-05-04 [place] moria other 15:19:28 l chronic Anemia Chriss diseases in other classified chronic elsewhere diseases classified elsewhere 05/04/2019 [facility] Hypoxemia Problem 2019-05-04 Ky moria 15:19:28 l Chriss Hypoxemia 05/04/2019 [facility] Type 2 Problem 2019-05-04 Memor ia diabetes 15:19:28 l mellitus Type 2 Marquez n with diabetes hyperglyce mellitus macy with hyperglyce macy 05/04/2019 [facility] Nephropath Problem 2019-05-04 M emoria y induced 15:19:28 l by other Chriss drugs, Nephropath medicament y induced s and by other biological drugs, substances medicament s and biological substances 05/04/2019 [facility] Adverse Problem 2019-05-04 Hi michael effect of 15:19:28 l diagnostic Adverse Her arrieta agents, effect of initial diagnostic encounter agents, initial encounter 05/04/2019 [facility] Hypokalemi Problem 2019-05-04 M emoria a 15:19:28 l Chriss Hypokalemi a 05/04/2019 [facility] Obstructiv Problem 2019-05-04 M emoria e and 15:19:28 l reflux Chriss uropathy, Obstructiv unspecifie e and d reflux uropathy, unspecifie d 05/04/2019 [facility] USP Problem 2019-05-04 Me moria (current) 15:19:28 l use of Long [place] oral term hypoglycem (current) ic drugs use of oral hypoglycem ic drugs 05/04/2019 [facility] Congestive Problem Resolve 2019-05-04 Memoria heart d 15:19:28 l failure [place] (disorder) Congestive heart failure (disorder) Resolved Problem 05/04/2019 [facility] Diabetes Problem Resolve 2019-05-04 Me moria mellitus d 15:19:28 l type 2 Diabetes Marquez n (disorder) mellitus type 2 (disorder) Resolved Problem 05/04/2019 [facility] Hyperlipid Problem Resolve 2019-05-04 Memoria emia d 15:19:28 l (disorder) Marquez n Hyperlipid emia (disorder) Resolved Problem 05/04/2019 [facility] Hypertensi Problem Resolve 2019-05-04 Memoria ve d 15:19:28 l disorder, [place] systemic Hypertensi arterial ve (disorder) disorder, systemic arterial (disorder) Resolved Problem 05/04/2019 [facility] Atrial Problem Active 2019-05-04 Memor ia flutter 15:19:28 l (disorder) Atrial Herm raul flutter (disorder) Active Problem 05/04/2019 [facility] Cholecyste Problem Active 2019-05-04 M emoria ctomy 15:19:28 l (procedure Marquez n ) Cholecyste ctomy (procedure ) Active Problem 05/04/2019 [facility] Chronic Problem Active 2019-05-04 Hi michael obstructiv 15:19:28 l e lung Chronic Chriss disease obstructiv (disorder) e lung disease (disorder) Active Problem 05/04/2019 [facility] Smoker Problem Active 2019-05-04 Memor ia (finding) 15:19:28 l Smoker Chriss (finding) Active Problem 05/04/2019 [facility] Diabetes Problem Active 2019-05-04 Mem oria mellitus 15:19:28 l (disorder) Diabetes Selvin rmann mellitus (disorder) Active Problem 05/04/2019 [facility] History of Problem Active 2019-05-04 M emoria repair of 15:19:28 l umbilical History Herm raul hernia of repair (situation of ) umbilical hernia (situation ) Active Problem 05/04/2019 [facility] Myocardial Problem Active 2019-05-04 M emoria infarction 15:19:28 l (disorder) Marquez n Myocardial infarction (disorder) Active Problem 05/04/2019 [facility] PNEUMONIA, Diagnosis Active 2017-04-23 Memoria UNSPECIFIE 12:37:00 l D ORGANISM Marquez n PNEUMONIA, UNSPECIFIE D ORGANISM Active [facility] DVTRCLI OF Diagnosis Active 2018-12-23 Memoria INTEST, 18:32:00 l PART UNSP, DVTRCLI Her arrieta W/O PERF O OF INTEST, PART UNSP, W/O PERF O Active [facility] Sepsis, Problem 2018-2019-05-04 2019-05-04 Memoria unspecifie 1-23 15:19:28 15:19:28 l d organism Sepsis, 04:28: Her arrieta unspecifie 08 d organism 10/22/2018 05/04/2019 [facility] Allergies, Adverse Reactions, Alerts Allergy Allergy Status Severity Reaction(s) Onset Inactive Treating Comm ents Source Name Type Date Date Clinician Metformi Propensi Active Hives[facility] to Itching [facility]-12 [facility] - adverse 00:00: Medical reaction 00 Center s Hydromor Drug Active Other (See 2013-0 "hot and [facility] phone Allergy Comments) 1-13 cold [facility] - (Bulk) 00:00: sweat" [facility] Dilaudid Dilaudid Active Memori a l Chriss metFORMI metFORMI Active Memori a N N l Chriss Family History Family Member Diagnosis Comments Start Date Stop Date Source Natural brother Heart disease [facility] Natural mother Cancer [facility] Natural mother Diabetes [facility] Natural mother Hypertension [facility] Natural sister Cancer [facility] Social History Social Habit Start Date Stop Date Quantity Comments Source History of tobacco [facility] Sex Assigned [facility] Center Cigarettes smoked 2019-10-01 2019-10-01 [facility] - current (pack per 00:00:00 00:00:00 Medical Center day) - Reported Tobacco use and 2019-10-01 2019-10-01 Never used [facility] - exposure 00:00:00 00:00:00 [facility] Alcohol intake 2019-10-01 2019-10-01 Current [facility] - 00:00:00 00:00:00 non-drinker of Medical Ce nter alcohol (finding) Tobacco Comment 2017-12-23 2017-12-23 in 2016 [facility] - 00:00:00 00:00:00 [facility] Social History 2016-01-09 2016-01-09 [facility] 12:57:57 12:57:57 Smoking Status Start Date Stop Date Source Former smoker 2019-10-01 00:00:00 2019-10-01 00:00:00 [facility] Medications Ordered Filled Start Stop Current Ordering Indication Dosage Frequency Signature Comments Components Source Medication Medication Date Date Medication? Clinician (SIG) Name Name lisinopril 2019-0 Yes 20mg Q.5D Take [address] (PRINIVIL,Z 1-09 by mouth 2 Ju kes - ESTRIL) 20 17:35: (two) Medica l MG tablet 31 times Center daily . fluticasone 2019-0 Yes 1{puff} QD Inhale [address] [facility] [address] -umeclidin- 1-09 puff by [facility] - vilanter 17:35: mouth via Medi bronwyn (TRELEGY 31 inhaler Center ELLIPTA) daily. 100-62.5-25 mcg DsDv spironolact 2020-0 Yes 25mg QD Take [address] [facility] one 1-09 by mouth [facility] - (ALDACTONE) 17:35: daily. Medi bronwyn 25 MG 31 Center tablet docusate 2020-0 Yes 100mg Q.5D Take [address] [facility] sodium 1-09 mg by [facility] - (COLACE) 17:35: mouth 2 Medica l 100 MG 31 (two) Center capsule times daily. finasteride 2020-0 Yes 5mg QD Take [address] (PROSCAR) 5 1-09 by mouth [facility] - mg tablet 17:35: daily. Medica l 31 Center ipratropium 2020-0 Yes 3mL Q.25D Take [address] [address] -albuterol -09 by Bernabe - (DUO-NEB) 17:35: nebulizati Me dical 0.5 mg-3 31 on 4 Center mg(2.5 mg (four) base)/3 mL times nebulizer daily. solution albuterol 2019-0 Yes 1{puff} Inhale [address] HFA 1-09 puff by Bernabe - (VENTOLIN 17:35: mouth via Med ical HFA) 90 30 inhaler Center mcg/actuati every 6 on inhaler (six) hours as needed for Wheezing. nicotine 2019-0 2020- No 1{patch Q24H Place [address] (NICODERM 10-06 } patch onto Francisco es - CQ) 14 21:44: 00:00 the skin Medica l mg/24 hr 35 :00 daily. Center patch ferrous 2019-0 2020- No 325mg Take [address] [facility] sulfate 325 10-06-06 tablet Bernabe - (65 FE) MG 00:00: 23:59 (325 mg Med ical tablet 00 :00 total) by Center mouth daily with breakfast for 90 days. aspirin 325 2019-0 2020- No 325mg QD Take [address] [facility] MG tablet 10-05- mg by Bernabe - 14:05: 00:00 mouth Medical 00 :00 daily. Center hydrALAZINE 2019-0 2020- No 10mg Q.5D Take [address] [facility] (APRESOLINE 10-05 by mouth 2 L ukes - ) 10 MG 14:05: 00:00 (two) Medical tablet 00 :00 times Center daily. metOLazone 2020-0 2020- No 5mg QD Take [address] (ZAROXOLYN) 10-05- by mouth Francisco es - 5 MG tablet 14:05: 00:00 daily. Med ical 00 :00 Center HYDROcodone 2020-0 2020- No 1{tbl} Take [address] -acetaminop 1-06 01-06 tablet by Ju jules (NORCO 14:05: 00:00 mouth Medic al 7.5-325) 00 :00 every 6 Center 7.5-325 mg (six) per tablet hours as needed for Pain. apixaban 2019- 2020- No 2.5mg Q.5D Take 1 [facility] (ELIQUIS) 10-05-05 tablet [facility] - 2.5 mg Tab 00:00: 23:59 (2.5 mg Med ical tablet 00 :00 total) by Center mouth 2 (two) times daily for 30 days. melatonin 5 2019- 2020- No 5mg QD Take [address] [facility] mg Tab 10-05 0205 tablet (5 [facility] - tablet 00:00: 23:59 mg total) Medic al 00 :00 by mouth Center nightly for 30 days. ferrous 2019- 2020- No 325mg Take [address] sulfate 325 10-0202 mg by [facility] - (65 FE) MG 00:45: 00:00 mouth Medic al tablet 24 :00 daily with Center breakfast. melatonin 5 2020- No 5mg QD Take [address] mg Tab 10-0202 by mouth [facility] - tablet 00:45: 00:00 nightly. Medica l 24 :00 Center promethazin 2019- 2020- No 25mg Take [address] [facility] [facility] e 10-01 by mouth [facility] - (PHENERGAN) 18:40: 00:00 every 8 Me dical 25 MG 02 :00 (eight) Center tablet hours as needed for Nausea. polyethylen 2019- 2020- No 17g Take [address] e glycol 10-01 by mouth. [facility] - (MIRALAX) 18:39: 00:00 Medical 17 44 :00 Center gram/dose powder omeprazole 2019-0 2020- No 20mg QD Take [address] [facility] (PRILOSEC) 10-01 by mouth Luke s - 20 MG 18:39: 00:00 daily. Medical capsule 23 :00 Center LACTULOSE 2019- 2020- No Take by [facility] ORAL 10-0102 mouth 2 [facility] - 14:59: 00:00 (two) Medical 51 :00 times Center daily as needed. budesonide/ 2019-0 2020- No 2{puff} Q.25D Inhale [address] formoterol 1-02 01-02 puffs by Luke s - fumarate 14:58: 00:00 mouth via Med ical (SYMBICORT 56 :00 inhaler 4 Cent er INHL) (four) times daily. carvedilol 2019-0 Yes 12.5mg Take [address] (COREG) 4-22 tablet [facility] - 12.5 MG 00:00: (12.5 mg Medica l tablet 00 total) by Center mouth 2 (two) times daily with breakfast and dinner. gabapentin 2019-0 Yes 300mg [id number] Take [address] [facility] (NEURONTIN) 4-22 [id number] capsule [facility] - 300 MG 00:00: 3D (300 mg Medical capsule 00 total) by Center mouth 3 (three) times daily. glimepiride 2019-0 Yes 2mg Take [address] [facility] (AMARYL) 2 4-22 tablet (2 Luke s - MG tablet 00:00: mg total) Med ical 00 by mouth Center every morning before breakfast. sertraline 2019-0 Yes 50mg QD Take 1 [facility] (ZOLOFT) 50 4-22 tablet (50 Ju kes - MG tablet 00:00: mg total) Med ical 00 by mouth Center daily. ranolazine 2019-0 Yes 1000mg Q.5D Take [address] (RANEXA) 4-22 tablet [facility] - 1,000 mg SR 00:00: (1,000 mg M edical tablet 00 total) by Center mouth 2 (two) times daily. sotalol AF 2019-0 Yes 80mg Q.5D Take 1 [facility] (BETAPACE 4-22 tablet (80 Luke s - AF) 80 MG 00:00: mg total) Med ical tablet 00 by mouth 2 Center (two) times daily. tamsulosin 2019-0 Yes .4mg QD Take 1 [facility] (FLOMAX) 4-22 capsule [facility] - 0.4 mg Cap 00:00: (0.4 mg Medi bronwyn 24 hr 00 total) by Center capsule mouth daily. atorvastati 2018-0 2020- No 10mg QD Take [address] [facility] n (LIPITOR) 4-22 04-21 tablet (10 L ukes - 10 MG 00:00: 23:59 mg total) Medica l tablet 00 :00 by mouth Center nightly. apixaban 2020- No 5mg Q.5D Take [address] [facility] (ELIQUIS) 5 01-19- tablet (5 Ju kes - mg Tab 00:00: 00:00 mg total) Medic al tablet 00 :00 by mouth 2 Center (two) times daily. niacin 2020- No 1000mg QD Take [address] [facility] (NIASPAN) 01-19 tablet [facility] - 1000 MG CR 00:00: 00:00 (1,000 mg M edical tablet 00 :00 total) by Center mouth nightly. ferrous 2018- Yes 325 mg = 1 Hi michael sulfate 325 1-16 tab, PO, l mg oral 20:25: Daily, # Marquez n enteric 00 30 tab, 2 coated Refill(s), tablet other Glipizide 5 Yes 5 mg = 1 Me moria MG Oral 1-16 tab, PO, l Tablet 19:37: Daily, # [place] 00 30 tab, 0 Refill(s), other Bicitra Yes 30 mL, PO, Hi michael oral 1-16 BID, # 420 l solution 19:37: mL, 0 [place] 00 Refill(s), other ciprofloxac No 500 mg = 1 Memoria in 500 mg 1-16 tab, PO, l oral tablet 19:37: BAHF12H, X Chriss 00 8 day, # 8 tab, 0 Refill(s), other Metronidazo No 500 mg = 1 Memoria le 500 MG 1-16 tab, PO, l Oral Tablet 19:37: TID, X 8 He rmann 00 day, # 24 tab, 0 Refill(s), other Ketotifen Yes 1 drp, Memori a 0.25 MG/ML 1-16 BOTH EYES, l Ophthalmic 19:37: Q8H, 0 Muriel nn Solution 00 Refill(s) Aspirin 81 2018- Yes 81 mg = 1 Me moria MG Enteric 1-16 tab, PO, l Coated 19:37: Daily, 0 Chriss Tablet 00 Refill(s) Compazine 2019- No Notes: Memori a 1-16 (Same as: l 02:19: Compazine) [place] 00 Bicitra No 30 mL, Memoria oral 1-15 Route: PO, l solution 23:00: Drug Form: Her berny TIPTON, Dosing Weight 100.9, kg, BID, Start date: 10/14/18 17:00:00 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, Duration: 30 day, Stop date: 11/13/18 9:00:00 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 Bicitra No Notes: Memoria oral 1-15 (Same As: l solution 20:51: ArashaMuriel nn 00 Cytra-2) Sodium citrate-ci tric acid (500-334 mg/5 mL): 1 mL contains sodium 1 mEq/mL and bicarbonat e 1 mEq/mL Symbicort Yes 2 puff, Memor ia 80/4.5 1-15 INHALATION l inhalation 19:39: , BID, # Her arrieta aerosol 00 6.9 gm, 0 with Refill(s) adapter Albuterol Yes 3 ml, Memoria 0.833 MG/ML 1-15 INHALATION l / 19:39: , QID, PRN Chriss Ipratropium 00 as needed [place] for 0.167 MG/ML shortness Inhalant of breath Solution or [DuoNeb] wheezing, # 30 ea, 0 Refill(s) 24 HR Yes = 1 patch, Memori a Nicotine 1-15 TOP, l 0.583 MG/HR 19:39: Daily, # He rmann Transdermal 00 14 patch, Patch 0 [Nicoderm Refill(s) C-Q] lisinopril No 10 mg = 1 Me moria 10 mg oral 1-15 tab, PO, l tablet 19:39: Daily, # Chriss 00 30 tab, 0 Refill(s) Ondansetron Yes 4 mg = 1 Me moria 4 MG Oral 1-15 tab, PO, l Tablet 19:39: Q4H, PRN Chriss [Zofran] 00 Nausea/Vom iting, # 30 tab, 0 Refill(s) Metolazone No 5 mg = 1 Mem oria 5 MG Oral 1-15 tab, PO, l Tablet 19:39: Daily, # Chriss 00 30 tab, 0 Refill(s) finasteride Yes 5 mg = 1 Me moria 5 mg oral 1-15 tab, PO, l tablet 19:39: Daily, # Chriss 00 30 tab, 0 Refill(s) sertraline Yes 100 mg = 1 M emoria 100 mg oral 1-15 tab, PO, l tablet 19:39: Daily, # Chriss 00 30 tab, 0 Refill(s) Docusate Yes 100 mg = 1 Mem oria Sodium 100 1-15 cap, PO, l MG Oral 19:39: BID, # 60 Muriel nn Capsule 00 cap, 0 [Colace] Refill(s) tamsulosin Yes 0.4 mg = 1 M emoria 0.4 mg oral 1-15 cap, PO, l capsule 19:39: Daily, # Marquez n 00 30 cap, 0 Refill(s) Hydralazine No 10 mg = 1 M emoria Hydrochlori 1-15 tab, PO, l de 10 MG 19:39: BID, # 120 Her arrieta Oral Tablet 00 tab, 0 Refill(s) 12 HR No 500 mg = 1 Memori a ranolazine 1-15 tab, PO, l 500 MG 19:39: BID, # 60 Marquez n Extended 00 tab, 0 Release Refill(s) Tablet [Ranexa] apixaban 5 2018- No 5 mg, PO, Me moria MG Oral 1-15 Q12H, 0 l Tablet 19:39: Refill(s) Marquez swanson [Eliquis] 00 albuterol No 2 puff, Memor ia 90 mcg/inh 1-15 INHALATION l inhalation 19:39: , QID, # arrieta aerosol 00 17 gm, 0 Refill(s) Aspirin 325 2019- No 325 mg = 1 Memoria MG Oral 1-15 tab, PO, l Tablet 19:39: Daily, # Chriss 00 90 tab, 0 Refill(s) Furosemide No 40 mg = 1 Me moria 40 MG Oral 1-15 tab, PO, l Tablet 19:39: Daily, Sara Banerjee [Lasix] 00 30 tab, 0 Refill(s) Spironolact No 25 mg = 1 M emoria one 25 MG 1-15 tab, PO, l Oral Tablet 19:39: Daily, # Selvin hurt [Aldactone] 00 180 tab, 0 Refill(s) Alprazolam Yes 0.5 mg = 1 M emoria 0.5 MG Oral 1-15 tab, PO, l Tablet 19:39: PRN as [place] [Xanax] 00 needed for anxiety, 0 Refill(s) gabapentin Yes 400 mg = 1 M emoria 400 MG Oral 1-15 cap, PO, l Capsule 19:39: BID, # 90 Muriel nn 00 cap, 1 Refill(s) Glipizide 5 No 5 mg = 1 Me moria MG Oral 1-15 tab, PO, l Tablet 19:39: BID-Before Muriel nn 00 Meals, # 30 tab, 1 Refill(s) Acetaminoph No 1 tab, PO, Memoria en 325 MG / 1-15 Q6H, PRN l Hydrocodone 19:39: Pain, # 60 Chriss Bitartrate 00 tab, 0 7.5 MG Oral Refill(s) Tablet [[place] 7.5/325] Calcium No 1,000 mL, Memor ia Chloride 1-15 1,000 l 0.0014 13:25: ml/hr, [place] MEQ/ML / 00 Infuse Potassium Over: 1 Chloride hr, Route: 0.004 IV, 1,000, MEQ/ML / Drug form: Sodium INJ, ONCE, Chloride Priority: 0.103 STAT, MEQ/ML / Dosing Sodium Weight Lactate 100.9 kg, 0.028 Start MEQ/ML date: Injectable 10/14/18 Solution 7:25:00 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, Stop date: 10/14/18 7:25:00 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 K-Dur 20 No Notes: Memoria 1-15 (Same as: l 12:23: K-Dur 20) [place] 00 "Do Not Crush" Give with food and full glass of water For patients unable to swallow tablet, dissolve in one half glass of water. Allow about 2 minutes for the tablets to disintegra te. Stir before giving to prepare slurry and administer . Please exclude Patient s with feeding tube less than 14 Beninese (Dobhoff, J-tube etc) and pediatric and patients. potassium No 40 mEq, 2 Mem oria chloride 20 1-15 tab, l mEq oral 11:40: Route: PO, Her arrieta tablet, 00 Drug form: extended ERTAB, release BID, Dosing Weight 98.136, kg, Priority: STAT, Start date: 10/14/18 5:40:00 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, Duration: 2 doses or times, Stop date: 10/14/18 9:00:00 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 Lactated No 1,000 mL, Hi michael Ringers IV 1-15 Rate: 100 l 1,000 mL 04:16: ml/hr, [place] 00 Infuse over: 10 hr, Route: IV, Dosing Weight 98.136 kg, Total Volume: 1,000, Priority: NOW, Start date: 10/13/18 22:16:00 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, Duration: 30 day, Stop date: 11/12/18 22:15:00 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, 2.25, m2 Cipro No Notes: May Memori a 1-14 interfere l 23:53: with Chriss 00 enteral feedings. Take 1 hour before or 2 hours after antacids, dairy products, & minerals. Take on an empty stomach. Flagyl No Notes: Memoria 1-14 Take with l 23:06: food/avoid Chriss 00 alcohol. (Same as: Flagyl) Ciprofloxac No Notes: May Memoria in 1-14 interfere l 23:06: with Chriss 00 enteral feedings. Take 1 hour before or 2 hours after antacids, dairy products, & minerals. Take on an empty stomach. Isolyte S No Notes: Memori a PH-7.4 -14 (Same as: l (Bolus) IV 19:18: Isolyte S He rmann 00 PH 7.4) potassium No Notes: Memori a chloride 20 -14 (Same as: l mEq oral 15:30: K-Dur 20) Herm raul tablet, 00 "Do Not extended Crush" release Give with food and full glass of water For patients unable to swallow tablet, dissolve in one half glass of water. Allow about 2 minutes for the tablets to disintegra te. Stir before giving to prepare slurry and administer . Please exclude Patient s with feeding tube less than 14 [place] (Dobhoff, J-tube etc) and pediatric and patients. potassium No Notes: Memori a chloride -14 (Same as: l 12:00: KCL) Infuse no faster than 10 mEq/hr if given peripheral ly. Potassium No 10 mEq, Memor ia Chloride 1-14 Route: l 12:00: IVPB, Q1H, Dosing Weight 112, kg, Total Dose = 20 meq, Start date: 10/13/18 6:00:00 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, Duration: 4 doses or times, Stop date: 10/13/18 9:00:00 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, Periphe ral Line Isolyte S No Notes: Memori a PH-7.4 1-14 (Same as: l (Bolus) IV 11:05: Isolyte S He PH 7.4) potassium No Notes: Memori a chloride 1-13 (Same as: l 18:00: KCL) Infuse no faster than 10 mEq/hr if given peripheral ly. Furosemide No Notes: Memor ia 20 MG Oral 1-13 (Same as: l Tablet 17:00: Lasix) [Lasix] May cause GI upset. Give with food or milk. Potassium No 40 mEq, Memor ia Chloride 1-13 Route: IV, l 16:50: ONCE, Dosing Weight 112, kg, Start date: 10/12/18 10:50:00 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, Stop date: 10/12/18 10:50:00 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 potassium No Notes: Memori a chloride 1-12 (Same as: l 12:00: KCL) Infuse no faster than 10 mEq/hr if given peripheral ly. Magnesium No Notes: Memori a Sulfate -12 WASTE: F/P l 11:29: - Sink; E - Municipal Trash Bin Potassium No 40 mEq, Memor ia Chloride 1-12 Route: IV, l 11:00: ONCE, Dosing Weight 112, kg, Start date: 10/11/18 5:00:00 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, Stop date: 10/11/18 5:00:00 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 Refresh Eye No Notes: Hi michael Itch Relief 1-12 (Same l 06:00: as:Zaditor ) iodixanol No 150 mL, Memor ia 1-12 Route: l 01:36: IVP, Drug Form: SOLN, Dosing Weight 112, kg, ONCALL, STAT, Start date: 10/10/18 19:36:00 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, Duration: 1 doses or times, Dose = 2.2ml/kg, Max dose = 150ml -- "To be infused by Radiology Staff ONLY" Zofran No Notes: Memoria - (Same as: l 22:34: Zofran) Chriss 00 MEDICATION WASTE Product Size: 4 mg Product Wasted: ___ mg Zofran No Notes: Memoria 10-09 (Same as: l 15:13: Zofran) MEDICATION WASTE Product Size: 4 mg Product Wasted: ___ mg Furosemide No Notes: Memor ia 40 MG Oral 10-09 (Same as: l Tablet 03:00: Lasix) Chriss [Lasix] 00 May cause GI upset. Give with food or milk. Flomax No Notes: Memoria 10-08 (Same As: l 23:00: Flomax) "Do Not Crush" Furosemide No 40 mg, Memor ia 40 MG Oral 10-08 Route: PO, l Tablet 15:00: Drug form: Muriel nn [Lasix] 00 TAB, BID, Dosing Weight 125, kg, Start date: 10/08/18 9:00:00 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, Duration: 30 day, Stop date: 11/06/18 17:00:00 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 Lasix No Notes: Memoria 10-08 (Same as: l 12:44: Lasix) MEDICATION WASTE Product Size: 40 mg Product Wasted: ___ mg olanzapine No Notes: Memor ia 10-08 (Same as: l 03:00: ZyPREXA) Melatonin No Notes: Memori a 10-08 (Same as: l 03:00: Melatonin) Lasix No Notes: Memoria 10-08 (Same as: l 00:45: Lasix) budesonide- No Notes: Hi michael formoterol 1-08 (Same as: l 160 mcg-4.5 20:30: Symbicort) [place] mcg/inh 00 WASTE: inhalation Aerosol - aerosol Return to with Pharmacy adapter Zosyn No Notes: Memoria 1-08 (Same as: l 20:00: Zosyn) Dosing based on Piperacill in component MEDICATION WASTE Product Size: 3375 mg Product Wasted: ___ mg carvedilol No Notes: Memor ia 1-08 Give with l 19:32: food. [place] 00 (Same As: Coreg) Advair No 1 Memoria Diskus 250 1-08 inhalation l mcg-50 mcg 18:49: , Route: Her arrieta inhalation 00 INHALER, powder Drug Form: AERO, Dosing Weight 125, kg, RBID, Start date: 10/07/18 12:49:00 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, Duration: 30 day, Stop date: 11/06/18 8:00:00 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 Lasix No Notes: Memoria 1-08 (Same as: l 18:45: Lasix) Chriss Tylenol No Notes: Max Hi michael 1-08 acetaminop l 18:44: hen 4000 Chriss mg/day (4 gm/day). (Same as: Tylenol Extra Strength) Digoxin No Notes: Memoria 0.125 MG -08 Take on an l Oral Tablet 15:00: Empty Muriel nn 00 Stomach (Same as: Lanoxin) Digoxin No Notes: Memoria 1-08 (Same as: l 03:00: Lanoxin) [place] Digoxin No Notes: Memoria 1-07 (Same as: l 19:00: Lanoxin) Chriss Ciprofloxac No Notes: Do M emoria in 10-06 not l 16:00: refrigerat Chriss e Digoxin No 500 Memoria 1-07 microgram, l 11:03: Route: IV, Chriss 00 ONCE, Dosing Weight 125, kg, Start date: 10/06/18 5:03:00 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, Stop date: 10/06/18 5:03:00 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 Hydrocortis No Notes: Hi michael one -07 (Same as: l 06:00: Solu-MANE [place] 00 F) heparin No Notes: Memoria 10-05 porcine l 22:00: heparin [place] 00 250 ML No Notes: Memoria Albumin 10-05 LOT#: l Human, CARE HOME 20:46: H ermann 50 MG/ML 00 ___Mfg:___ Injection [Albuked] ___ (Same as: Albuminar) "blood product derivative " WASTE: F/P - Red; E -Red MEDICATION WASTE Product Size: 25 gm Product Wasted: ___ gm Albuterol No Notes: Memori a 0.833 MG/ML 10-05 (Same as: l 19:00: Duoneb) Ipratropium 00 [place] 0.167 MG/ML Inhalant Solution [DuoNeb] Aspirin 325 No 325 mg, 1 M emoria MG Oral 10-05 tab, l Tablet 15:00: Route: PO, Muriel nn 00 Daily, Dosing Weight 125, kg, Start date: 10/05/18 9:00:00 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, Duration: 30 day, Stop date: 11/03/18 9:00:00 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 Aspirin No Notes: Do Memor ia 10-05 not crush l 15:00: or chew. [place] 00 (Same As: Ecotrin) gabapentin No Notes: Memor ia 100 MG Oral 10-05 (Same as: l Capsule 14:00: Neurontin) heparin No Notes: Memoria 10-05 porcine l 14:00: heparin Chriss 00 Metoprolol No Notes: Memor ia 10-05 (Same as: l 13:05: Lopressor) Push over 2 minutes Tramadol No Notes: Not Mem oria 10-05 to exceed l 12:44: 400mg/day. [place] 00 (Same As: Ultram) Tramadol No 100 mg, Memori a 06 Route: PO, l 12:43: Drug form: [place] 00 TAB, Q6H, Dosing Weight 125, kg, PRN Pain Score 4-6, Start date: 10/05/18 6:43:00 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, Duration: 30 day, Stop date: 11/04/18 6:42:00 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 Insulin No 60 Memoria regular 10-05 units) l 12:30: WASTE: F/P [place] - Black; E - Municipal Trash Bin Stable for 28 days at room temperatur e Expires in days from ____Date Dextrose No 12.5 gm, Memor ia 50% Syringe 10-05 25 mL, l 12:30: Route: [place] 00 IVP, Drug Form: INJ, Dosing Weight 125, kg, PRN, PRN Blood Glucose Results, Start date: 10/05/18 6:30:00 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, Duration: 30 day, Stop date: 11/04/18 6:29:00 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 Glucagon No 1 mg, Memoria 10-05 Route: IM, l 12:30: Drug form: [place] PDR/INJ, PRN, Dosing Weight 125, kg, PRN Blood Glucose Results, Start date: 10/05/18 6:30:00 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, Duration: 30 day, Stop date: 11/04/18 6:29:00 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 Tylenol No Notes: Max Hi michael 10-05 acetaminop l 12:00: hen 4000 mg/day (4 gm/day). (Same as: Tylenol Extra Strength) Flagyl No Notes: Memoria 10-05 (Same as: l 11:00: Flagyl) Avoid alcohol. Ciprofloxac No Notes: Do M emoria in 10-05 not l 11:00: refrigerat [place] e Albuterol No Notes: Memori a 0.833 MG/ML 10-05 (Same as: l / 10:53: Duoneb) Ipratropium 00 [place] 0.167 MG/ML Inhalant Solution [DuoNeb] Metoprolol No Notes: Memor ia 10-05 (Same as: l 10:53: Lopressor) Push over 2 minutes Isolyte S No Notes: Memori a PH 7.4 10-05 (Same as: l 1,000 mL 09:52: Isolyte S Herm raul PH 7.4) Norepinephr No Notes: Not Memoria ine 10-05 for direct l 06:30: administra [place] 00 tion - DILUTE. Protect from light. (Same as:Levophe d). Administer by either central venous catheter or peripheral ly-inserte d central catheter (PICC) line. Isolyte S No Notes: Memori a PH-7.4 10-05 (Same as: l (Bolus) IV 06:01: Isolyte S He rmann 00 PH 7.4) Saline No Notes: Memoria Flush 0.9% 10-05 (Same as: l 05:54: BD [place] 00 Posiflush) cefepime No 1 gm, Memoria 10-05 Route: l 05:52: IVPB, Chriss 00 ONCE, Dosing Weight 113.636, kg, Priority: STAT, Start date: 10/04/18 23:52:00 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, Stop date: 10/04/18 23:52:00 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, ABX Indication : Bacteremia Zosyn No 3.375 gm, Memoria 10-05 Route: l 05:52: IVPB, ONCE, Dosing Weight 113.636, kg, Priority: STAT, Start date: 10/04/18 23:52:00 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, Stop date: 10/04/18 23:52:00 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, ABX Indication : Bacteremia carvedilol Yes 12.5 mg = Me moria 12.5 mg 4-13 1 tab, PO, l oral tablet 15:31: Q12H, # 60 Chriss 00 tab, 0 Refill(s) predniSONE Yes 40 mg = 2 Me moria 20 mg oral 4-13 tab, PO, l tablet 15:31: Daily, X 7 Muriel nn 00 day, # 14 tab, 0 Refill(s) Cefuroxime Yes 500 mg = 1 M emoria 500 MG Oral 4-13 tab, PO, l Tablet 15:31: BID, X 7 [place] 00 day, # 14 tab, 0 Refill(s) Nebulizer Yes 1 ea, Memoria 4-13 MISC, l 15:31: ONCALL, # Chriss 00 1 ea, 0 Refill(s) Albuterol Yes 2.49 mg = Mem oria 0.83 MG/ML 01-10 3 mL, l Inhalant 15:31: INHALATION Her arrieta Solution 00 , Q6H, # 120 ea, 0 Refill(s) Advair Yes 1 puff, Memoria Diskus 250 -13 INHALATION l mcg-50 mcg 15:31: , BID, # 1 H ermann inhalation 00 ea, 0 powder Refill(s) remove No Notes: Memoria patch - Remove old l 14:00: patch Chriss 00 before applicatio n of new patch. WASTE: F/P - P Waste Black; E - P Waste Black Levemir No Notes: Memoria 01-10 Same as l 02:00: Levemir Do not hold insulin without contacting prescriber WASTE: F/P - Black; E - Municipal Trash Bin "single patient use only" Nicotine No Notes: Memoria 01-09 (Same as: l 21:00: Habitrol) "Remove old patch before applicatio n of new patch" WASTE: F/P - P Waste Black; E - P Waste Black Omeprazole No 20 mg, Memor ia 01-09 Route: PO, l 14:00: Daily, Dosing Weight 107.273, kg, Start date: 01/10/16 9:00:00 CDT, Duration: 30 day, Stop date: 02/08/16 9:00:00 CDT Lisinopril No Notes: Memor ia -12 (Same as: l 14:00: Prinivil, Zestril) Coreg No Notes: Memoria 4-12 Give with l 13:06: food. (Same As: Coreg) Rocephin No Notes: Memoria -12 (Same As: l 08:00: Rocephin). Use with 100 mL NS and infuse over 30 min MEDICATION WASTE Product Size: 1000 mg Product Wasted: ___ mg Levofloxaci No Notes: Hi michael n -12 (Same l 08:00: as:Levaqui Chriss 00 n) atorvastati No Notes: Hi michael n 4-12 (Same as: l 02:00: Lipitor) [place] tamsulosin No Notes: Memor ia 4-12 (Same As: l 02:00: Flomax) [place] 00 "Do Not Crush" Sotalol No Notes: Memoria Hydrochlori 4-12 (Same As: l de AF 02:00: Betapace) [place] Sertraline No Notes: Memor ia 4-12 (Same as: l 02:00: Zoloft) [place] Ranexa No Notes: Memoria 4-12 Same as l 02:00: Ranexa "Do Chriss 00 Not Crush" Metoprolol No Notes: Memor ia 4-11 (Same as: l 21:56: Lopressor) [place] Push over 2 minutes Protonix No Notes: Memoria 4-11 Tablet l 21:30: should not [place] 00 be chewed or crushed. (Same as: Protonix) Furosemide No Notes: Memor ia 40 MG Oral 4-11 (Same as: l Tablet 21:00: Lasix) [place] May cause GI upset. Give with food or milk. Solu-Medrol No Notes: Hi michael 4-11 (Same l 21:00: as:Solu-ME [place] 00 DROL, A-Methapre d) gabapentin No Notes: Memor ia 300 MG Oral 4-11 (Same as: l Capsule 19:00: Neurontin) Herm raul 00 Aspirin 81 No Notes: Do Me moria MG Enteric 4-11 not crush l Coated 19:00: or chew. [place] Tablet 00 (Same As: Ecotrin) Insulin, No Notes: Memoria Aspart, 4-11 Roll in l Human 14:17: palms of [place] 00 hands gently; Do not shake vigorously . (Same as: NovoLOG) "single patient use only" WASTE: F/P - Black; E - Municipal Trash Bin Stable for 28 days at room temperatur e. Expires in days from ____Date Dextrose No 12.5 gm, Memor ia 50% Syringe 4-11 25 mL, l 14:17: Route: Chriss 00 IVP, Drug Form: INJ, Dosing Weight 107.273, kg, PRN, PRN Blood Glucose Results, Start date: 01/09/16 9:17:00 CDT, Duration: 30 day, Stop date: 02/08/16 9:16:00 CDT Glucagon No 1 mg, Memoria 4-11 Route: IM, l 14:17: Drug form: Chriss 00 PDR/INJ, PRN, Dosing Weight 107.273, kg, PRN Blood Glucose Results, Start date: 01/09/16 9:17:00 CDT, Duration: 30 day, Stop date: 02/08/16 9:16:00 CDT Albuterol No Notes: Memori a 0.833 MG/ML 4-11 (Same as: l / 14:11: Duoneb) Ipratropium 00 [place] 0.167 MG/ML Inhalant Solution [DuoNeb] Enoxaparin No Notes: Memor ia 4-11 (Same as: l 14:00: Lovenox) Alprazolam No 1 mg = 2 Mem oria 0.5 MG Oral 4-11 tab, PO, l Tablet 12:59: Bedtime, 0 Muriel nn 00 Refill(s) Furosemide Yes 40 mg = 1 Me moria 40 MG Oral 4-11 tab, PO, l Tablet 12:59: BID, 0 Chriss 00 Refill(s) minoxidil No 2.5 mg = 1 Me moria 2.5 mg oral 4-11 tab, PO, l tablet 12:59: BID, 0 [place] 00 Refill(s) Potassium No 20 mEq = 1 Me moria Chloride 20 4-11 tab, PO, l MEQ 12:59: BID, 0 Chriss Extended 00 Refill(s) Release Tablet atorvastati Yes 40 mg = 1 M emoria n 40 mg 4-11 tab, PO, l oral tablet 12:59: Bedtime, 0 Chriss 00 Refill(s) tamsulosin Yes 0.4 mg = 1 M emoria 0.4 mg oral 4-11 cap, PO, l capsule 12:59: Daily, 0 Marquez n 00 Refill(s) sertraline Yes 100 mg = 1 M emoria 100 mg oral 4-11 tab, PO, l tablet 12:59: Bedtime, 0 Muriel nn 00 Refill(s) promethazin No 25 mg = 1 M emoria e 25 mg 4-11 tab, PO, l oral tablet 12:59: Q8H, PRN He rmann 00 Nausea, 0 Refill(s) carvedilol No 25 mg = 1 Me moria 25 mg oral 4-11 tab, PO, l tablet 12:59: Daily, 0 [place] 00 Refill(s) Omeprazole Yes 20 mg, PO, M emoria 4-11 Daily, 0 l 12:59: Refill(s) Chriss 00 gabapentin Yes 300 mg = 1 M emoria 300 MG Oral 4-11 cap, PO, l Capsule 12:59: TID, 0 Chriss 00 Refill(s) glimepiride No 2 mg = 1 Me moria 2 mg oral 4-11 tab, PO, l tablet 12:59: BID, 0 [place] 00 Refill(s) niacin 500 Yes 1,000 mg = M emoria mg oral 4-11 2 tab, PO, l tablet 12:59: Bedtime, 0 Muriel nn 00 Refill(s) lisinopril Yes 20 mg = 1 Me moria 20 mg oral 4-11 tab, PO, l tablet 12:59: Daily, 0 Chriss 00 Refill(s) Aspirin 81 2016 Yes 81 mg = 1 Me moria MG Enteric 4-11 tab, PO, l Coated 12:59: Daily, # [place] Tablet 00 90 tab, 3 Refill(s) Sotalol Yes 80 mg = 1 Memor ia Hydrochlori 4-11 tab, PO, l de AF 80 mg 12:59: BID, 0 Herm raul oral tablet 00 Refill(s) Ranexa Yes 500 mg, Memoria 4-11 PO, BID, 0 l 12:59: Refill(s) [place] 00 Glipizide No 5 mg = 0.5 Me moria 10 MG Oral 01-08 tab, PO, l Tablet 12:59: BID, 0 Refill(s) dextrometho No Notes: Hi michael rphan-guaiF 01-08 (dextromet l ENesin 10 09:24: horphan-gu He rmann mg-100 mg/5 00 aifenesin mL oral 10-100/5 liquid ml LIQ) (Same as: Robitussin -DM) Ondansetron No Notes: Hi michale 01-08 (Same as: l 09:24: Zofran) [place] 00 MEDICATION WASTE Product Size: 4 mg Product Wasted: ___ mg Acetaminoph No Notes: Do M emoria en 01-08 not exceed l 09:24: 4 gm/day. Chriss 00 (Same as: Tylenol) Levofloxaci No Notes: Hi michael n 01-08 (Same l 07:39: as:Levaqui 00 n) Ceftriaxone No Notes: Hi michael - (Same As: l 07:39: Rocephin). Use with 100 mL NS and infuse over 30 min MEDICATION WASTE Product Size: 1000 mg Product Wasted: ___ mg Albuterol No Notes: Memori a 0.833 MG/ML 01-08 (Same as: l / 06:51: Duoneb) Ipratropium 00 [place] 0.167 MG/ML Inhalant Solution [DuoNeb] Tylenol No Notes: Max Hi michael 01-08 acetaminop l 06:51: hen 4000 Chriss 00 mg/day (4 gm/day). (Same as: Tylenol Extra Strength) Saline No Notes: Memoria Flush 0.9% 01-08 (Same as: l 06:46: BD Chriss 00 Posiflush) Vital Signs Vital Name Observation Time Observation Value Comments Source Systolic blood 2019-10-08 16:39:00 146 mm[Hg] [facility] Diastolic blood 2019-10-08 16:39:00 70 mm[Hg] [facility] Heart rate 2019-10-08 16:39:00 69 /min [facility] Body temperature 2019-10-08 16:39:00 36.17 Emily [facility] Respiratory rate 2019-10-08 16:39:00 18 /min [facility] Oxygen saturation in 2019-10-08 16:39:00 100 /min [facility] - Arterial blood by Medical Ce nter Pulse oximetry Body height 2019-10-06 21:00:00 185.4 cm [facility] Body weight 2019-10-06 21:00:00 108.863 kg [facility] BMI 2019-10-06 21:00:00 31.66 kg/m2 [facility] Systolic (mm Hg) 2018-10-15 17:23:00 Hi rial [place] Diastolic (mm Hg) 2018-10-15 17:23:00 Mem orial [place] Respitory Rate 2018-10-15 17:23:00 Memori al [place] Heart Rate 2018-10-15 17:23:00 [facility] [place] Temperature Oral (F) 2018-10-15 17:23:00 97.6 F [facility] Chriss Respitory Rate 2018-10-15 13:45:00 Memori al [place] Heart Rate 2018-10-15 13:45:00 [facility] Chriss Systolic (mm Hg) 2018-10-15 13:45:00 Hi rial Chriss Diastolic (mm Hg) 2018-10-15 13:45:00 Mem orial [place] Temperature Oral (F) 2018-10-15 13:45:00 98.4 F [facility] Chriss Systolic (mm Hg) 2018-10-15 10:52:00 Hi rial Chriss Diastolic (mm Hg) 2018-10-15 10:52:00 Mem orial [place] Respitory Rate 2018-10-15 10:52:00 Memori al Chriss Heart Rate 2018-10-15 10:52:00 [facility] [place] Temperature Oral (F) 2018-10-15 10:52:00 99.3 F [facility] Chriss BMI Calculated 2018-10-14 13:08:00 Memori al [place] Weight 2018-10-14 13:08:00 [facility] [place] Height 2018-10-14 13:08:00 185.42 cm [facility] Chriss Weight 2018-10-13 15:29:00 [facility] [place] Weight 2018-10-10 14:23:00 [facility] [place] Height 2018-10-05 06:40:00 182.88 cm [facility] Chriss BMI Calculated 2018-10-05 06:40:00 Memori al [place] BMI Calculated 2018-10-05 05:01:00 Memori al Chriss Height 2018-10-05 05:01:00 182.88 cm [facility] [place] Temperature Oral (F) 2016-01-11 17:05:00 97.4 F [facility] [place] Heart Rate 2016-01-11 17:05:00 [facility] [place] Respitory Rate 2016-01-11 17:05:00 Memori al [place] Systolic (mm Hg) 2016-01-11 17:05:00 Hi rial Chriss Diastolic (mm Hg) 2016-01-11 17:05:00 Mem orial Chriss Respitory Rate 2016-01-11 12:15:00 Memori al Chriss Heart Rate 2016-01-11 12:15:00 [facility] [place] Temperature Oral (F) 2016-01-11 12:15:00 97.6 F [facility] Chriss Systolic (mm Hg) 2016-01-11 12:15:00 Hi rial [place] Diastolic (mm Hg) 2016-01-11 12:15:00 Mem orial [place] Temperature Oral (F) 2016-01-11 04:53:00 97.9 F [facility] Chriss Heart Rate 2016-01-11 04:53:00 [facility] [place] Respitory Rate 2016-01-11 04:53:00 Memori al Chriss Systolic (mm Hg) 2016-01-11 04:53:00 Hi rial Chriss Diastolic (mm Hg) 2016-01-11 04:53:00 Mem orial [place] Weight 2016-01-09 17:13:00 [facility] Chriss BMI Calculated 2016-01-09 17:13:00 Memori al [place] Height 2016-01-09 17:13:00 185.42 cm [facility] [place] Procedures Procedure Date / Time Performed Performing Clinician [facility] e RHYTHM STRIP - SCAN 2019-10-09 16:20:09 Provider [facility] POCT-GLUCOSE METER 2019-10-08 11:39:00 Manuel Sanches S [facility] BASIC METABOLIC PANEL 2019-10-08 03:36:00 Сергей spenser [facility] () [facility] CBC W/PLT COUNT & AUTO 2019-10-08 03:36:00 Maunel Sanches S [facility] DIFFERENTIAL [facility] US RENAL COMPLETE 2019-10-08 01:20:00 [place], Manuel S [facility] POCT-GLUCOSE METER 2019-10-07 20:56:00 [place]cec[place], Manuel S [facility] POCT-GLUCOSE METER 2019-10-07 18:53:00 [facility] RHYTHM STRIP - SCAN 2019-10-07 15:11:21 Abbi Sweeney [facility] POCT-GLUCOSE METER 2019-10-07 07:34:00 Zabrina Simpson [facility] BASIC METABOLIC PANEL 2019-10-07 04:04:00 Сергей [facility] () [facility] CBC W/PLT COUNT & AUTO 2019-10-07 04:04:00 Сергей [facility] POCT-GLUCOSE METER 2019-10-07 00:17:00 Ambreen Combs [facility] POCT-GLUCOSE METER 2019-10-05 12:14:00 [facility] POCT-GLUCOSE METER 2019-10-05 07:54:00 [facility] HEMOGLOBIN AND 2019-10-05 04:29:00 Jane Rivera [facility] BASIC METABOLIC PANEL 2019-10-05 04:29:00 Jane Rivera [facility] () [facility] POCT-GLUCOSE METER 2019-10-04 21:18:00 Jane Rivera [facility] POCT-GLUCOSE METER 2019-10-04 16:57:00 Jane Rivera [facility] POCT-GLUCOSE METER 2019-10-04 07:00:00 [facility] ONLY[facility] 2019-10-04 05:36:00 Lilia RiveraHerber [facility] B-TYPE NATRIURETIC 2019-10-04 05:36:00 Emmanuel Londono AnamikaEra [facility] FACTOR (BNP) [facility] POCT-GLUCOSE METER 2019-10-03 21:20:00 Gilberto Riverag [facility] POCT-GLUCOSE METER 2019-10-03 12:02:00 Dank RiveraSamreen [facility] POCT-GLUCOSE METER 2019-10-03 07:45:00 Miguel [facility] BASIC METABOLIC PANEL 2019-10-03 04:19:00 Jane Rivera [facility] () [facility] CBC (HEMOGRAM ONLY) 2019-10-03 04:19:00 Lilia RiveraVeda [facility] POCT-GLUCOSE METER 2019-10-02 23:39:00 Dank RiveraniniVeda [facility] CT CHEST WITH IV 2019-10-02 17:14:00 [facility] - CONTRAST [facility] 2D ECHO W/ DOPPLER 2019-10-02 12:30:[address] [facility] (CW/PW/COLOR) [facility] BASIC METABOLIC PANEL 2019-10-02 06:14:00 L[facility] () [facility] CBC (HEMOGRAM ONLY) 2019-10-02 06:14:00 Jazmine RiveraVeda [facility] IRON, TIBC, % SAT. 2019-10-02 06:14:[address] [facility] (WITHOUT FERRITIN) [facility] FERRITIN 2019-10-02 06:14:00 Lilia RiveraVeda [facility] POCT-GLUCOSE METER 2019-10-01 21:15:00 [facility] BASIC METABOLIC PANEL 2019-10-01 17:04:00 Mgiuel, Fang[facility] (7) [facility] HEPATIC FUNCTION PANEL 2019-10-01 17:04:00 Jane Rivera [facility] PT/APTT 2019-10-01 17:04:00 Dank [facility] PROTHROMBIN TIME/INR 2019-10-01 17:04:00 [facility] CBC (HEMOGRAM ONLY) 2019-10-01 17:04:00 Jane Rivera [facility] URINALYSIS W/ REFLEX 2019-10-01 17:03:00 Dank [facility] URINE CULTURE [facility] POCT-GLUCOSE METER 2019-10-01 16:22:00 Dank [facility] ECG 12-LEAD 2019-10-01 15:18:49 Unknown, Hl7 Doctor [facility] Operation on hip joint [facility] Plan of Care Planned Activity Planned Date Details Comments Source Future Scheduled 2020-05-31 INFLUENZA VACCINE (#1) [facility] 00:[facility]:00 [code = INFLUENZA Medical Ce nter VACCINE (#1)] Future Scheduled 2019-05-[address] [facility] 00:[facility]00 measurement Medical Center (procedure) [code = 83814649] Future Scheduled 2009-08-[address] [facility] - Test 00:00:00 WELLNESS (YEAR 2 or Medical Center FIRST YEAR if no IPPE) [code = MEDICARE ANNUAL WELLNESS (YEAR 2 or FIRST YEAR if no IPPE)] Future Scheduled 2008 PNEUMOCOCCAL 65+ YRS [facility] - Test 00:00:00 (1 of 1 - Medical Center [id number]) [code = PNEUMOCOCCAL 65+ YRS (1 of 1 - [id number] PCV13)] Future Scheduled 1953 DIABETIC EYE EXAM [facility] - Test 00:00:00 [code = DIABETIC EYE Medical Center EXAM] Future Scheduled [address] [facility] - Test 00:00:00 examination Medical Center (regime/therapy) [code = 532856586] Future Scheduled 1953 Urine screening for [facility] - Test 00:00:00 protein (procedure) [facility] [code = 746006601] Encounters Start End Encounter Admission Attending Care Care Encounter Source Date/Time Date/Time Type Type Clinicians Facility Department ID 2019-11-17 2019-11-17 [facility] [id number] 11:35:05 12:05:05 Visit Puneet Kelloggr [id number] [place] [id number] 2019-05-22 2019-05-22 Office CHANTAL Foster [id number] 07:08:54 07:38:54 Visit Puneet AMBULATOR [id number] [place] [id number] 2018-10-04 2018-10-15 Outpatient Rachael [facility] [id number] 23:04:00 16:00:00 Jakob 05 Alvino 2016-01-09 2016-01-11 Outpatient John [facility] [id number] 01:14:00 13:19:00 Artemio 00 Doron Results Test Description Test Time Test Comments Results Result Sour e Comments 2D Echo 2019-09-[address] [facility] W/Doppler(CW/PW/C 3 [facility] [place] [facility] 12:39:33 [facility] CPACSInterface, External Ris In - 10/12/2019 12:39 PM CSTTransthoracic Echocardiography Report (TTE) Demographics Patient Name JUAN REED Date of Study 10/02/2019 JULIANA Gender Male Visit Number [id number] Race Unknown Room Number 2438 Number Date of 1945 Referring Jane RIVERA [facility] Physician Age 74 year(s) 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 The mass measures 3.4 cm x 7.97 cm. Previous Study In comparison with the prior exam 01/12/2019 the following changes are noted: the visualized portion of the IVC mass has decreased . Signature - - Findings Technical Quality: Technically difficult exam. Left Ventricle LV endocardium is incompletely visualized despite IV ultrasound enhancing agent. The left ventricle is chamber size (by vol index) is normal (male - LVED vol - 34-74ml/m2). Mild concentric LV hypertrophy. Difficult to assess segmental wall motion; overall LV systolic function appears normal based on available views. LV diastolic function is indeterminate. Left Atrium LA is incompletely visualized, size based on linear measurement. LA size is moderately enlarged . Right [...] diameter) is normal . Pericardium A trivial pericardial effusion is [...] Velocity: 2.47 m/s TR Gradient: 24.48 mmHg POC-Glucose meter 2019-10-08 11:54:00 Test Item Value Reference Range Interpretation Comme [facility] POC-Glucose Meter (test code = 163 mg/dL 70-110 H : TESTED AT [facility] [address] [address]) [facility], [facility] 30: Community Coordinator/Techni astrid ID = [id number] for PORTIA DEVINE Lab Interpretation (test code = Abnormal 36189-1) [facility] [id number] 11:54:00 Test Item Value Reference Range Interpretation Comments POC-GLUCOSE METER 163 mg/dL 70-110 H : TESTED A T [facility] [address]20 (BEAKER) (test code = [place], 1538) [address]: Community Coordinator/Techni astrid ID = [id number] for KAMI OSBORNE Basic metabolic [id number] 06:14:00 Test Item Value Reference Range Interpretation Comments Sodium (test code = 141 meq/L 737-152 1026-2) Potassium (test code = 3.3 meq/L 3.5-5.1 L 2823-3) Chloride (test code = 112 meq/L 98-107 H 2075-0) CO2 (test code = 22 meq/L 22-29 2028-9) BUN (test code = 14 mg/dL 7-21 3094-0) Creatinine (test code = 1.08 mg/dL 0.57-1.25 2160-0) Glucose (test code = 115 mg/dL 70-105 H 2345-7) Calcium (test code = 8.2 mg/dL 8.4-10.2 L 54529-1) EGFR (test code = 66 mL/min/1.73 [place] [address]-4) NOT ACCURATE CREATININE CLEARANCE IN PREDICTING GLOMERULAR FILTRATION RATE . ESTIMATED GFR I S NOT APPLICABLE FOR DIALYSIS PATIEN TS. Lab Interpretation Abnormal (test code = 30531-6) [facility] [id number] 06:14:00 Test Item Value Reference Range Interpretation Comments SODIUM (BEAKER) 141 meq/L 136-145 (test code = 381) POTASSIUM (BEAKER) 3.3 meq/L 3.5-5.1 L (test code = 379) CHLORIDE (BEAKER) 112 meq/L 98-107 H (test code = 382) CO2 (BEAKER) (test 22 meq/L 22-29 code = 355) BLOOD UREA NITROGEN 14 mg/dL 7-21 (BEAKER) (test code = 354) CREATININE (BEAKER) 1.08 mg/dL 0.57-1.25 (test code = 358) GLUCOSE RANDOM 115 mg/dL 70-105 H (BEAKER) (test code = 652) CALCIUM (BEAKER) 8.2 mg/dL 8.4-10.2 L (test code = 697) EGFR (BEAKER) (test 66 mL/min/1.73 ESTIMA ESTRELLA GFR IS code = 1092) sq m NOT ACCURATE CREATININE CLEARANCE IN PREDICTING GLOMERULAR FILTRATION RATE . ESTIMATED GFR I S NOT APPLICABLE FOR DIALYSIS PATIEN TS. CBC with platelet count + automated [id number] 05:25:00 Test Item Value Reference Range Interpretation Comments WBC (test code = 6690-2) 8.0 3.5- 10.5 K/L RBC (test code = 789-8) 3.53 4.63- 6.08 M/L L MCHC (test code = 786-4) 29.5 32.3- 36.5 GM/DL L Hematocrit (test code = 4544-3) 29.5 % 40.1-51 L MCV (test code = 787-2) 83.6 fL 79-92.2 MCH (test code = 785-6) 24.6 pg 25.7-32.2 L RDW (test code = 788-0) 24.4 % 11.6-14.4 H Platelets (test code = 777-3) 262 150- 450 K/CU MM MPV (test code = 36387-6) 10.5 fL 9.4-12.4 nRBC (test code = 413) 0 0- 0 /100 WBC % Neutros (test code = 429) 68 % % Lymphs (test code = 430) 20 % % Monos (test code = 431) 8 % % Eos (test code = 432) 4 % % Baso (test code = 437) 1 % # Neutros (test code = 670) 5.42 1.78- 5.38 K/L H # Lymphs (test code = 414) 1.58 1.32- 3.57 K/L # Monos (test code = 415) 0.61 0.30- 0.82 K/L # Eos (test code = 416) 0.28 0.04- 0.54 K/L # Baso (test code = 417) 0.05 0.01- 0.08 K/L Immature Granulocytes-Relative 0 % 0-1 (test code = 2801) Lab Interpretation (test code = Abnormal 86945-8) [facility] W/PLT COUNT & AUTO [id number] 05:25:00 Test Item Value Reference Range Interpretation Comments WHITE BLOOD CELL COUNT (BEAKER) 8.0 K/ L 3.5-10.5 (test code = 775) RED BLOOD CELL COUNT (BEAKER) 3.53 M/ L 4.63-6.08 L (test code = 761) HEMOGLOBIN (BEAKER) (test code = 8.7 GM/DL 13.7-17.5 L 410) HEMATOCRIT (BEAKER) (test code = 29.5 % 40.1-51.0 L 411) MEAN CORPUSCULAR VOLUME (BEAKER) 83.6 fL 79.0-92.2 (test code = 753) MEAN CORPUSCULAR HEMOGLOBIN 24.6 pg 25.7-32.2 L (BEAKER) (test code = 751) MEAN CORPUSCULAR HEMOGLOBIN CONC 29.5 GM/DL 32.3-36.5 L (BEAKER) (test code = 752) RED CELL DISTRIBUTION WIDTH 24.4 % 11.6-14.4 H (BEAKER) (test code = 412) PLATELET COUNT (BEAKER) (test 262 K/CU MM 150-450 code = 756) MEAN PLATELET VOLUME (BEAKER) 10.5 fL 9.4-12.4 (test code = 754) NUCLEATED RED BLOOD CELLS 0 /100 WBC 0-0 (BEAKER) (test code = 413) NEUTROPHILS RELATIVE PERCENT 68 % (BEAKER) (test code = 429) LYMPHOCYTES RELATIVE PERCENT 20 % (BEAKER) (test code = 430) MONOCYTES RELATIVE PERCENT 8 % (BEAKER) (test code = 431) EOSINOPHILS RELATIVE PERCENT 4 % (BEAKER) (test code = 432) BASOPHILS RELATIVE PERCENT 1 % (BEAKER) (test code = 437) NEUTROPHILS ABSOLUTE COUNT 5.42 K/ L 1.78-5.38 H (BEAKER) (test code = 670) LYMPHOCYTES ABSOLUTE COUNT 1.58 K/ L 1.32-3.57 (BEAKER) (test code = 414) MONOCYTES ABSOLUTE COUNT (BEAKER) 0.61 K/ L 0.30-0.82 (test code = 415) EOSINOPHILS ABSOLUTE COUNT 0.28 K/ L 0.04-0.54 (BEAKER) (test code = 416) BASOPHILS ABSOLUTE COUNT (BEAKER) 0.05 K/ L 0.01-0.08 (test code = 417) IMMATURE GRANULOCYTES-RELATIVE 0 % 0-1 PERCENT (BEAKER) (test code = 2801) U/S, RENAL, [id number] 04:19:00Reason for exam:->Renal and bladder ultrasound for clottsFINAL REPORT TECHNIQUE: Grayscale ultrasound of the kidneys and bladder with Doppler and spectral analysis. INDICATION: Renal and bladder ultrasound for clots. COMPARISON: 11/13/2018 ultrasound. FINDINGS: RIGHT KIDNEY: The right kidney measures 11.8 x 5.4 x 5.9 cm. Cortical thickness measures 1.4 cm. The mass within the mid right kidney has measurements of 5.9 x 5.7 x 6.4 cm, previously 4.3 x 5.3 x 4.7 cm. A small adjacent exophytic cystic structure is 1.5 x 1.5 x 1.5 cm. No hydronephrosis. Renal artery and vein are patent. LEFT KIDNEY: The left kidney measures 11.5 x 5.9 x 5.4 cm. Cortical thickness measures 1.9 cm. No solid mass lesions. No hydronephrosis. Renal artery andvein are patent. BLADDER: Iraheta catheter present. IMPRESSION:Right renal mass consistent with renalcell carcinoma is moderately increased in size compared to prior ultrasound. No hydronephrosis or evidence of residual clot. Signed: Lurdes Barreto MDReport Verified Date/Time: 10/08/2019 04:19:18 US renal [id number] 04:19:00Interface, External Ris In - 10/08/2019 4:22 AM CSTFINAL REPORT TECHNIQUE: Grayscale ultrasound of the kidneys and bladder with Doppler and spectral analysis. INDICATION: Renal and bladder ultrasound for clots. COMPARISON: 11/13/2018 ultrasound. FINDINGS: RIGHT KIDNEY: The right kidney measures 11.8 x 5.4 x 5.9 cm. Cortical thickness measures 1.4 cm. The mass within the mid right kidney has measurements of 5.9 x 5.7 x 6.4 cm, previously 4.3 x 5.3 x 4.7 cm. A small adjacent exophytic cystic structure is 1.5 x 1.5 x 1.5 cm. No hydronephrosis. Renal artery and vein are patent. LEFT KIDNEY: The left kidney measures 11.5 x 5.9 x 5.4 cm. Cortical thickness measures 1.9 cm. No solid mass lesions. No hydronephrosis. Renal artery and vein are patent. BLADDER: Iraheta catheter present. IMPRESSION:Right renal mass consistent with renal cell carcinoma is moderately increased in size compared to prior ultrasound. No hydronephrosis or evidence of residual clot. Signed: Lurdes Barretoeport Verified Date/Time: 10/08/2019 04:19:18 [facility] [id number] 21:08:00 Test Item Value Reference Range Interpretation Comments POC-GLUCOSE METER 113 mg/dL 70-110 H : TESTED A T [facility] 6720 (BEAKER) (test code = [facility], 1538) [address]: Community Coordinator/Techni astrid ID = [id number] for JOEL SALAMANCA POCT-GLUCOSE [id number] 19:09:00 Test Item Value Reference Range Interpretation Comments POC-GLUCOSE METER 90 mg/dL 70-110 : TESTED A T [facility] 6720 (BEAKER) (test code = [facility], 1538) [address]: Community Coordinator/Techni astrid ID = [id number] for WILDRosalbaMANDUJANOJARETYL POCT-GLUCOSE [id number] 07:47:00 Test Item Value Reference Range Interpretation Comments POC-GLUCOSE METER 92 mg/dL 70-110 : TESTED A T [facility] 6720 (BEAKER) (test code = [facility], 153) [address]: Community Coordinator/Techni astrid ID = [id number] for WILDRosalbaMANDUJANO, ANGELITA BASIC METABOLIC [id number] 06:38:00 Test Item Value Reference Range Interpretation Comments SODIUM (BEAKER) 140 meq/L 136-145 (test code = 381) POTASSIUM (BEAKER) 3.3 meq/L 3.5-5.1 L (test code = 379) CHLORIDE (BEAKER) 110 meq/L 98-107 H (test code = 382) CO2 (BEAKER) (test 23 meq/L 22-29 code = 355) BLOOD UREA NITROGEN 13 mg/dL 7-21 (BEAKER) (test code = 354) CREATININE (BEAKER) 0.97 mg/dL 0.57-1.25 (test code = 358) GLUCOSE RANDOM 127 mg/dL 70-105 H (BEAKER) (test code = 652) CALCIUM (BEAKER) 8.3 mg/dL 8.4-10.2 L (test code = 697) EGFR (BEAKER) (test 75 mL/min/1.73 ESTIMA ESTRELLA GFR IS code = 1092) sq m NOT ACCURATE CREATININE CLEARANCE IN PREDICTING GLOMERULAR FILTRATION RATE . ESTIMATED GFR I S NOT APPLICABLE FOR DIALYSIS PATIEN TS. CBC W/PLT COUNT & AUTO [id number] 06:11:00 Test Item Value Reference Range Interpretation Comments WHITE BLOOD CELL COUNT (BEAKER) 6.2 K/ L 3.5-10.5 (test code = 775) RED BLOOD CELL COUNT (BEAKER) 3.60 M/ L 4.63-6.08 L (test code = 761) HEMOGLOBIN (BEAKER) (test code = 8.9 GM/DL 13.7-17.5 L 410) HEMATOCRIT (BEAKER) (test code = 30.0 % 40.1-51.0 L 411) MEAN CORPUSCULAR VOLUME (BEAKER) 83.3 fL 79.0-92.2 (test code = 753) MEAN CORPUSCULAR HEMOGLOBIN 24.7 pg 25.7-32.2 L (BEAKER) (test code = 751) MEAN CORPUSCULAR HEMOGLOBIN CONC 29.7 GM/DL 32.3-36.5 L (BEAKER) (test code = 752) RED CELL DISTRIBUTION WIDTH 24.2 % 11.6-14.4 H (BEAKER) (test code = 412) PLATELET COUNT (BEAKER) (test 260 K/CU MM 150-450 code = 756) MEAN PLATELET VOLUME (BEAKER) 10.3 fL 9.4-12.4 (test code = 754) NUCLEATED RED BLOOD CELLS 0 /100 WBC 0-0 (BEAKER) (test code = 413) NEUTROPHILS RELATIVE PERCENT 65 % (BEAKER) (test code = 429) LYMPHOCYTES RELATIVE PERCENT 21 % (BEAKER) (test code = 430) MONOCYTES RELATIVE PERCENT 9 % (BEAKER) (test code = 431) EOSINOPHILS RELATIVE PERCENT 4 % (BEAKER) (test code = 432) BASOPHILS RELATIVE PERCENT 1 % (BEAKER) (test code = 437) NEUTROPHILS ABSOLUTE COUNT 4.01 K/ L 1.78-5.38 (BEAKER) (test code = 670) LYMPHOCYTES ABSOLUTE COUNT 1.33 K/ L 1.32-3.57 (BEAKER) (test code = 414) MONOCYTES ABSOLUTE COUNT (BEAKER) 0.53 K/ L 0.30-0.82 (test code = 415) EOSINOPHILS ABSOLUTE COUNT 0.27 K/ L 0.04-0.54 (BEAKER) (test code = 416) BASOPHILS ABSOLUTE COUNT (BEAKER) 0.05 K/ L 0.01-0.08 (test code = 417) IMMATURE GRANULOCYTES-RELATIVE 1 % 0-1 PERCENT (BEAKER) (test code = 2801) POCT-GLUCOSE [id number] 00:29:00 Test Item Value Reference Range Interpretation Comments POC-GLUCOSE METER 91 mg/dL 70-110 : TESTED A T [facility] 6720 (BEAKER) (test code = [facility], 153) [address]: Community Coordinator/Techni astrid ID = [id number] for JOEL BUCIO POCT-GLUCOSE [id number] 12:29:00 Test Item Value Reference Range Interpretation Comments POC-GLUCOSE METER 132 mg/dL 70-110 H : TESTED A T [facility] 6720 (BEAKER) (test code = [facility], 1538) [address]: Community Coordinator/Techni astrid ID = [id number] for AN MARILY LAW POCT-GLUCOSE [id number] 08:06:00 Test Item Value Reference Range Interpretation Comments POC-GLUCOSE METER 117 mg/dL 70-110 H : TESTED A T [facility] 6720 (BEAKER) (test code = [facility], 1538) [address]: Community Coordinator/Techni astrid ID = [id number] for AN MARILY LAW BASIC METABOLIC [id number] 05:57:00 Test Item Value Reference Range Interpretation Comments SODIUM (BEAKER) 137 meq/L 136-145 (test code = 381) POTASSIUM (BEAKER) 3.6 meq/L 3.5-5.1 (test code = 379) CHLORIDE (BEAKER) 107 meq/L 98-107 (test code = 382) CO2 (BEAKER) (test 24 meq/L 22-29 code = 355) BLOOD UREA NITROGEN 16 mg/dL 7-21 (BEAKER) (test code = 354) CREATININE (BEAKER) 1.20 mg/dL 0.57-1.25 (test code = 358) GLUCOSE RANDOM 101 mg/dL 70-105 (BEAKER) (test code = 652) CALCIUM (BEAKER) 8.4 mg/dL 8.4-10.2 (test code = 697) EGFR (BEAKER) (test 59 mL/min/1.73 ESTIMA ESTRELLA GFR IS code = 1092) sq m NOT ACCURATE CREATININE CLEARANCE IN PREDICTING GLOMERULAR FILTRATION RATE . ESTIMATED GFR I S NOT APPLICABLE FOR DIALYSIS PATIEN TS. Hemoglobin and [id number] 05:08:00 Test Item Value Reference Range Interpretation Comments Hemoglobin (test code = 786-4) 8.9 13.7- 17.5 GM/DL L Hematocrit (test code = 4544-3) 29.1 % 40.1-51 L Lab Interpretation (test code = Abnormal 54263-9) [facility]iumHEMOGLOBIN AND [id number] 05:08:00 Test Item Value Reference Range Interpretation Comments HEMOGLOBIN (BEAKER) (test code = 8.9 GM/DL 13.7-17.5 L 410) HEMATOCRIT (BEAKER) (test code = 29.1 % 40.1-51.0 L 411) POCT-GLUCOSE [id number] 21:29:00 Test Item Value Reference Range Interpretation Comments POC-GLUCOSE METER 138 mg/dL 70-110 H : TESTED A T [facility] 6720 (BEAKER) (test code = [place], 1538) [address]: Community Coordinator/Techni astrid ID = [id number] for LISA ROJELIOLEWIS TAINA POCT-GLUCOSE [id number] 17:08:00 Test Item Value Reference Range Interpretation Comments POC-GLUCOSE METER 102 mg/dL 70-110 : TESTED A T [facility] 6720 (BEAKER) (test code = [place], 1538) [address]: Community Coordinator/Techni astrid ID = [id number] for AN REGINE LAW POCT-GLUCOSE [id number] 07:12:00 Test Item Value Reference Range Interpretation Comments POC-GLUCOSE METER 116 mg/dL 70-110 H : TESTED Kaya Dubose [facility] 6720 (BEAKER) (test code = [place], 1538) [address]: Community Coordinator/Techni astrid ID = [id number] for AN REGINE LAW CBC (Hemogram only)2019-10-04 07:07:00 Test Item Value Reference Range Interpretation Comments WBC (test code = 6690-2) 7.5 3.5- 10.5 K/L RBC (test code = 789-8) 3.76 4.63- 6.08 M/L L MCHC (test code = 786-4) 30.8 32.3- 36.5 GM/DL L Hematocrit (test code = 4544-3) 30.2 % 40.1-51 L MCV (test code = 787-2) 80.3 fL 79-92.2 MCH (test code = 785-6) 24.7 pg 25.7-32.2 L RDW (test code = 788-0) 23.2 % 11.6-14.4 H Platelets (test code = 777-3) 262 150- 450 K/CU MM MPV (test code = 02035-3) 10.0 fL 9.4-12.4 nRBC (test code = 413) 0 0- 0 /100 WBC Lab Interpretation (test code = Abnormal 91388-3) [facility]2019-10-04 07:07:00 Test Item Value Reference Range Interpretation Comments WHITE BLOOD CELL COUNT (BEAKER) 7.5 K/ L 3.5-10.5 (test code = 775) RED BLOOD CELL COUNT (BEAKER) 3.76 M/ L 4.63-6.08 L (test code = 761) HEMOGLOBIN (BEAKER) (test code = 9.3 GM/DL 13.7-17.5 L 410) HEMATOCRIT (BEAKER) (test code = 30.2 % 40.1-51.0 L 411) MEAN CORPUSCULAR VOLUME (BEAKER) 80.3 fL 79.0-92.2 (test code = 753) MEAN CORPUSCULAR HEMOGLOBIN 24.7 pg 25.7-32.2 L (BEAKER) (test code = 751) MEAN CORPUSCULAR HEMOGLOBIN CONC 30.8 GM/DL 32.3-36.5 L (BEAKER) (test code = 752) RED CELL DISTRIBUTION WIDTH 23.2 % 11.6-14.4 H (BEAKER) (test code = 412) PLATELET COUNT (BEAKER) (test 262 K/CU MM 150-450 code = 756) MEAN PLATELET VOLUME (BEAKER) 10.0 fL 9.4-12.4 (test code = 754) NUCLEATED RED BLOOD CELLS 0 /100 WBC 0-0 (BEAKER) (test code = 413) B-type Natriuretic Factor (BNP)2019-10-04 06:56:00 Test Item Value Reference Range Interpretation Comments BNP (test code = 52148-3) 139 pg/mL 0-100 H Lab Interpretation (test code = Abnormal 79903-4) [facility]ium[facility] NATRIURET[facility] FACTOR (BNP)2019-10-04 06:56:00 Test Item Value Reference Range Interpretation Comments B-TYPE NATRIURETIC PEPTIDE (BEAKER) 139 pg/mL 0-100 H (test code = 700) POCT-GLUCOSE [id number] 21:31:00 Test Item Value Reference Range Interpretation Comments POC-GLUCOSE METER 160 mg/dL 70-110 H : TESTED A T [facility] 6720 (BEAKER) (test code = [facility], 1538) [address]: Community Coordinator/Techni astrid ID = [id number] for SP LISA DUMONT POCT-GLUCOSE [id number] 12:14:00 Test Item Value Reference Range Interpretation Comments POC-GLUCOSE METER 124 mg/dL 70-110 H : TESTED A T [facility] 6720 (BEAKER) (test code = [facility], 153) [address]: Community Coordinator/Techni astrid ID = [id number] for IB RAARTEMIOM, SERCALEBLEM POCT-GLUCOSE [id number] 07:57:00 Test Item Value Reference Range Interpretation Comments POC-GLUCOSE METER 116 mg/dL 70-110 H : TESTED A T [facility] 6720 (BEAKER) (test code = [place], 1538) [address]: Community Coordinator/Techni astrid ID = [id number] for SUNG TILLMAN BASIC METABOLIC [id number] 04:55:00 Test Item Value Reference Range Interpretation Comments SODIUM (BEAKER) 136 meq/L 136-145 (test code = 381) POTASSIUM (BEAKER) 3.8 meq/L 3.5-5.1 (test code = 379) CHLORIDE (BEAKER) 106 meq/L 98-107 (test code = 382) CO2 (BEAKER) (test 23 meq/L 22-29 code = 355) BLOOD UREA NITROGEN 13 mg/dL 7-21 (BEAKER) (test code = 354) CREATININE (BEAKER) 0.93 mg/dL 0.57-1.25 (test code = 358) GLUCOSE RANDOM 96 mg/dL 70-105 (BEAKER) (test code = 652) CALCIUM (BEAKER) 8.3 mg/dL 8.4-10.2 L (test code = 697) EGFR (BEAKER) (test 79 mL/min/1.73 ESTIMA ESTRELLA GFR IS code = 1092) sq m NOT ACCURATE CREATININE CLEARANCE IN PREDICTING GLOMERULAR FILTRATION RATE . ESTIMATED GFR I S NOT APPLICABLE FOR DIALYSIS PATIEN TS. CBC (HEMOGRAM ONLY)2019-10-03 04:37:00 Test Item Value Reference Range Interpretation Comments WHITE BLOOD CELL COUNT (BEAKER) 6.7 K/ L 3.5-10.5 (test code = 775) RED BLOOD CELL COUNT (BEAKER) 3.73 M/ L 4.63-6.08 L (test code = 761) HEMOGLOBIN (BEAKER) (test code = 9.0 GM/DL 13.7-17.5 L 410) HEMATOCRIT (BEAKER) (test code = 29.8 % 40.1-51.0 L 411) MEAN CORPUSCULAR VOLUME (BEAKER) 79.9 fL 79.0-92.2 (test code = 753) MEAN CORPUSCULAR HEMOGLOBIN 24.1 pg 25.7-32.2 L (BEAKER) (test code = 751) MEAN CORPUSCULAR HEMOGLOBIN CONC 30.2 GM/DL 32.3-36.5 L (BEAKER) (test code = 752) RED CELL DISTRIBUTION WIDTH 22.9 % 11.6-14.4 H (BEAKER) (test code = 412) PLATELET COUNT (BEAKER) (test 264 K/CU MM 150-450 code = 756) MEAN PLATELET VOLUME (BEAKER) 9.5 fL 9.4-12.4 (test code = 754) NUCLEATED RED BLOOD CELLS 0 /100 WBC 0-0 (BEAKER) (test code = 413) POCT-GLUCOSE [id number] 23:51:00 Test Item Value Reference Range Interpretation Comments POC-GLUCOSE METER 107 mg/dL 70-110 : TESTED A T [facility] 6720 (BEAKER) (test code = UM[facility] Rick [facility], 1538) [address]: Community Coordinator/Techni astrid ID = [id number] for LISA FERNANDES CT, CHEST, WITH [id number] 20:40:00FINAL REPORT EXAM: CT chest Clinical history: Renal cell carcinoma COMPARISON: January 12, 2019 TECHNIQUE: Helical images of the chest were obtained after IV contrast administration DOSE REDUCTION: The exams was performed according to the departmental dose-optimization program which includes automated exposure control, adjustment of [...] carcinoma, tumor thrombus cannot be excluded. Signed: Danilo Rodrigues MDReport Verified Date/Time: 10/02/2019 20:40:37 Reading Location: [address] Transitional Reading Room 0 8:40 PMCT chest with IV [id number] 20:40:00Interface, External Ris In - 10/02/2019 8:43 PM CSTFINAL REPORT EXAM: CT chest Clinical history: Renal cell carcinoma COMPARISON: January 12, 2019 TECHNIQUE: Helical images of thechest were obtained after IV contrast administration DOSE REDUCTION: The exams was performed according to the departmental dose- optimization program which includes automated exposure control, adjustment of the mA and/or kV according to patient size and/or use of iterative reconstruction technique. FINDINGS: Multiple subcentimeter pulmonary nodules are noted which are new compared to the prior study.Specifically, there is a 3.9 mm Nodule in the right upper lobe on image 23, 6.7 mm nodule in the left upper lobe on image 12, and a 6.5 mm nodule in the lingula on image 38. In addition, there is mild increase in prominence of the mediastinal lymph nodes. For example, the left paratracheal lymph node measuring 6.1 mm measured 3.4 mm previously. There are 2 precarinal lymph nodes measure 4.4 and 5.7 mm were measured 1.9 and 5.4 mm previously. Bibasilar atelectasis is again noted. The tracheobronchialtree is clear. The cardiac size is within normal limits. The great vessels are normal in caliber andconfiguration. There is a hypodense structure measuring 1.2 x 0.9 x 3.5 cm in the proximal IVC, thismay represent a thrombus. IMPRESSION: 1. Interval development of multiple subcentimeter pulmonary nodules and increase in size of the mediastinal lymph nodes which may represent metastatic disease. 2. I ntraluminal filling defect in the proximal IVC is may represent a thrombus, in the setting of prior renal cell carcinoma, tumor thrombus cannot be excluded. Signed: Danilo Rodrigues MDReport Verified Date/Time: 10/02/2019 20:40:37 Reading Location: [address] Transitional Reading [facility] [id number] 16:50:21Interface, External Ris In - 10/02/2019 4:50 PM CSTVentricular Rate 78 BPMAtrial Rate 101 BPMQRS Duration 96 msQ-T Interval 418 msQTC Calculation(Bazett) 476 msR [place] -51 degreesT [place] 73 degreesAtrial tachycardia 9versus slow atrial flutter) with variable AV conductionLeft anterior fascicular blockNonspecific ST and T wave abnormalityProlonged QTAbnormal ECGWhen compared with ECG of 08-JAN-2019 10:2 9,Left anterior fascicular block is now PresentConfirmed by MD AKASH, ADDISON ([id number]) on 10/02/2019 4:50:18 [facility]Fer[facility]52[facility]00 Test Item Value Reference Range Interpretation Comments Ferritin (test code = 2276-4) 61 ng/mL 5-275 Lab Interpretation (test code = Normal 09991-8) [facility] Test Item Value Reference Range Interpretation Comments FERRITIN (BEAKER) (test code = 361) 61 ng/mL 5-275 Iron, TIBC, % sat. (without ferritin)2019-10-02 08:32:00 Test Item Value Reference Range Interpretation Comments Iron (test code = 2498-4) 24.0 ug/dL 40-160 L TIBC (test code = 2500-7) 314 ug/dL 250-450 Iron % Saturation (test code = 8 % 20-55 L 2502-3) Lab Interpretation (test code = Abnormal 92854-3) [facility], % SAT. (WITHOUT FERRITIN)2019-10-02 08:32:00 Test Item Value Reference Range Interpretation Comments IRON (BEAKER) (test code = 547) 24.0 ug/dL 40.0-160.0 L TOTAL IRON BINDING CAPACITY 314 ug/dL 250-450 (BEAKER) (test code = 769) IRON % SATURATION (2) (BEAKER) 8 % 20-55 L (test code = 2590) BASIC METABOLIC [id number] 07:20:00 Test Item Value Reference Range Interpretation Comments SODIUM (BEAKER) 136 meq/L 136-145 (test code = 381) POTASSIUM (BEAKER) 4.0 meq/L 3.5-5.1 (test code = 379) CHLORIDE (BEAKER) 106 meq/L 98-107 (test code = 382) CO2 (BEAKER) (test 24 meq/L 22-29 code = 355) BLOOD UREA NITROGEN 13 mg/dL 7-21 (BEAKER) (test code = 354) CREATININE (BEAKER) 0.95 mg/dL 0.57-1.25 (test code = 358) GLUCOSE RANDOM 99 mg/dL 70-105 (BEAKER) (test code = 652) CALCIUM (BEAKER) 8.5 mg/dL 8.4-10.2 (test code = 697) EGFR (BEAKER) (test 77 mL/min/1.73 ESTIMA ESTRELLA GFR IS code = 1092) sq m NOT ACCURATE CREATININE CLEARANCE IN PREDICTING GLOMERULAR FILTRATION RATE . ESTIMATED GFR I S NOT APPLICABLE FOR DIALYSIS PATIEN TS. CBC (HEMOGRAM ONLY)2019-10-02 07:13:00 Test Item Value Reference Range Interpretation Comments WHITE BLOOD CELL COUNT (BEAKER) 7.8 K/ L 3.5-10.5 (test code = 775) RED BLOOD CELL COUNT (BEAKER) 3.66 M/ L 4.63-6.08 L (test code = 761) HEMOGLOBIN (BEAKER) (test code = 8.9 GM/DL 13.7-17.5 L 410) HEMATOCRIT (BEAKER) (test code = 29.2 % 40.1-51.0 L 411) MEAN CORPUSCULAR VOLUME (BEAKER) 79.8 fL 79.0-92.2 (test code = 753) MEAN CORPUSCULAR HEMOGLOBIN 24.3 pg 25.7-32.2 L (BEAKER) (test code = 751) MEAN CORPUSCULAR HEMOGLOBIN CONC 30.5 GM/DL 32.3-36.5 L (BEAKER) (test code = 752) RED CELL DISTRIBUTION WIDTH 23.0 % 11.6-14.4 H (BEAKER) (test code = 412) PLATELET COUNT (BEAKER) (test 267 K/CU MM 150-450 code = 756) MEAN PLATELET VOLUME (BEAKER) 9.6 fL 9.4-12.4 (test code = 754) NUCLEATED RED BLOOD CELLS 0 /100 WBC 0-0 (BEAKER) (test code = 413) POCT-GLUCOSE [id number] 21:27:00 Test Item Value Reference Range Interpretation Comments POC-GLUCOSE METER 97 mg/dL 70-110 : TESTED A T [facility] 6720 (BEAKER) (test code = [place], 1538) 15[address]: Community Coordinator/Techni astrid ID = [id number] for MAXX GARCIA Hepatic function [id number] 17:31:00 Test Item Value Reference Range Interpretation Comments Protein, Total (test code = 2885-2) 6.1 6.0- 8.3 gm/dL Albumin (test code = 61898-4) 3.5 g/dL 3.5-5 Total Bilirubin (test code = 0.3 mg/dL 0.2-1.2 1974-2) Bilirubin, Direct (test code = 0.2 mg/dL 0.1-0.5 1967-7) Alkaline Phosphatase (test code = 97 U/L 40-150 6768-6) AST (test code = 1920-8) 10 U/L 5-34 ALT (test code = 1742-6) 10 U/L 6-55 Lab Interpretation (test code = Normal 89701-4) [facility] [id number] 17:31:00 Test Item Value Reference Range Interpretation Comments TOTAL PROTEIN (BEAKER) (test code = 6.1 gm/dL 6.0-8.3 770) ALBUMIN (BEAKER) (test code = 1145) 3.5 g/dL 3.5-5.0 BILIRUBIN TOTAL (BEAKER) (test code 0.3 mg/dL 0.2-1.2 = 377) BILIRUBIN DIRECT (BEAKER) (test 0.2 mg/dL 0.1-0.5 code = 706) ALKALINE PHOSPHATASE (BEAKER) (test 97 U/L 40-150 code = 346) AST (SGOT) (BEAKER) (test code = 10 U/L 5-34 353) ALT (SGPT) (BEAKER) (test code = 10 U/L 6-55 347) BASIC METABOLIC [id number] 17:31:00 Test Item Value Reference Range Interpretation Comments SODIUM (BEAKER) 138 meq/L 136-145 (test code = 381) POTASSIUM (BEAKER) 3.9 meq/L 3.5-5.1 (test code = 379) CHLORIDE (BEAKER) 106 meq/L 98-107 (test code = 382) CO2 (BEAKER) (test 25 meq/L 22-29 code = 355) BLOOD UREA NITROGEN 11 mg/dL 7-21 (BEAKER) (test code = 354) CREATININE (BEAKER) 0.95 mg/dL 0.57-1.25 (test code = 358) GLUCOSE RANDOM 92 mg/dL 70-105 (BEAKER) (test code = 652) CALCIUM (BEAKER) 8.7 mg/dL 8.4-10.2 (test code = 697) EGFR (BEAKER) (test 77 mL/min/1.73 ESTIMA ESTRELLA GFR IS code = 1092) sq m NOT ACCURATE CREATININE CLEARANCE IN PREDICTING GLOMERULAR FILTRATION RATE . ESTIMATED GFR I S NOT APPLICABLE FOR DIALYSIS PATIEN TS. Urinalysis w/Microscopic + Reflex to [id number] 17:25:00 Test Item Value Reference Range Interpretation Comments Color, UA (test code = 5778-6) [place] Clarity, UA (test code = 5767-9) Hazy Specific [place], UA (test code = 1.016 1.001-1.035 5811-5) pH, UA (test code = 5803-2) 6.5 5.0-8.0 Protein, UA (test code = 77254-0) 100 mg/dL Negative A Glucose, UA (test code = 365) Negative Negative Ketones, UA (test code = 2514-8) Negative Negative Bilirubin, UA (test code = 34253-9) Negative Negative Blood, UA (test code = 85490-6) Large Negative A Nitrite, UA (test code = 5802-4) Negative Negative Leukocytes, UA (test code = 5799-2) Trace Negative A Urobilinogen, UA (test code = 0.2 mg/dL 0.2-1 44385-5) RBC, UA (test code = 58166-5) 2270 /HPF WBC, UA (test code = 5821-4) 0 /HPF Specimen Source (test code = 2795) Lab Interpretation (test code = Abnormal 98856-4) [facility] URINE [id number] 17:25:00 Test Item Value Reference Range Interpretation Comments COLOR (BEAKER) (test code = 470) [place] CLARITY (BEAKER) (test code = 469) Hazy SPECIFIC GRAVITY UA (BEAKER) (test 1.016 1.001-1.035 code = 468) PH UA (BEAKER) (test code = 467) 6.5 5.0-8.0 PROTEIN UA (BEAKER) (test code = 100 mg/dL Negative A 464) GLUCOSE UA (BEAKER) (test code = Negative Negative 365) KETONES UA (BEAKER) (test code = Negative Negative 371) BILIRUBIN UA (BEAKER) (test code = Negative Negative 462) BLOOD UA (BEAKER) (test code = 461) Large Negative A NITRITE UA (BEAKER) (test code = Negative Negative 465) LEUKOCYTE ESTERASE UA (BEAKER) Trace Negative A (test code = 466) UROBILINOGEN UA (BEAKER) (test code 0.2 mg/dL 0.2-1.0 = 463) RBC UA (BEAKER) (test code = 519) 2270 /HPF WBC UA (BEAKER) (test code = 520) 0 /HPF SOURCE(BEAKER) (test code = 2795) PT/[id number] 17:24:00 Test Item Value Reference Range Interpretation Comments Protime (test code = 18.2 11.9- 14.2 H 5902-2) seconds INR (test code = 1.6 <=5.9 6301-6) PTT (test code = 54.0 22.5- 36.0 H 19335-3) seconds KAMLESH (test code = KAMLESH) Effective 02/25/2019: PT Reference Range ChangeNew: 11.9-14.2 Previous: 11.7-14.7 RECOMMENDED COUMADIN/WARFARIN INR THERAPY RANGESSTANDARD DOSE: 2.0-3.0 Includes: PROPHYLAXIS for venous thrombosis, systemic embolization; TREATMENT for venous thrombosis and/or pulmonary embolus.HIGH RISK: Target INR is 2.5-3.5 for patients wiht mechanical heart valves. Lab Interpretation Abnormal (test code = 22159-3) [facility]/[id number] 17:24:00 Test Item Value Reference Range Interpretation Comments PROTIME (BEAKER) (test code = 18.2 seconds 11.9-14.2 H 759) INR (BEAKER) (test code = 370) 1.6 <=5.9 PARTIAL THROMBOPLASTIN TIME 54.0 seconds 22.5-36.0 H (BEAKER) (test code = 760) Effective 02/25/2019: PT Reference Range ChangeNew: 11.9-14.2 Previous: 11.7- 14.7RECOMMENDED COUMADIN/WARFARIN INR THERAPY RANGESSTANDARD DOSE: 2.0-3.0 Includes: PROPHYLAXIS for venous thrombosis, systemic embolization; TREATMENT for venous thrombosis and/or pulmonary embolus.HIGH RISK: Target INR is2.5-3.5 for patients wiht mechanical heart valves.Prothrombin time/[id number] 17:22:00 Test Item Value Reference Range Interpretation Comments Protime (test code = 18.2 11.9- 14.2 H 5902-2) seconds INR (test code = 1.6 <=5.9 6301-6) KAMLESH (test code = KAMLESH) Effective 02/25/2019: PT Reference Range ChangeNew: 11.9-14.2 Previous: 11.7-14.7 RECOMMENDED COUMADIN/WARFARIN INR THERAPY RANGESSTANDARD DOSE: 2.0-3.0 Includes: PROPHYLAXIS for venous thrombosis, systemic embolization; TREATMENT for venous thrombosis and/or pulmonary embolus.HIGH RISK: Target INR is 2.5-3.5 for patients wiht mechanical heart valves. Lab Interpretation Abnormal (test code = 35704-1) [facility] ([facility] ONLY)2019-10-01 17:22:00 Test Item Value Reference Range Interpretation Comments WHITE BLOOD CELL COUNT (BEAKER) 8.3 K/ L 3.5-10.5 (test code = 775) RED BLOOD CELL COUNT (BEAKER) 3.75 M/ L 4.63-6.08 L (test code = 761) HEMOGLOBIN (BEAKER) (test code = 9.1 GM/DL 13.7-17.5 L 410) HEMATOCRIT (BEAKER) (test code = 30.2 % 40.1-51.0 L 411) MEAN CORPUSCULAR VOLUME (BEAKER) 80.5 fL 79.0-92.2 (test code = 753) MEAN CORPUSCULAR HEMOGLOBIN 24.3 pg 25.7-32.2 L (BEAKER) (test code = 751) MEAN CORPUSCULAR HEMOGLOBIN CONC 30.1 GM/DL 32.3-36.5 L (BEAKER) (test code = 752) RED CELL DISTRIBUTION WIDTH 22.7 % 11.6-14.4 H (BEAKER) (test code = 412) PLATELET COUNT (BEAKER) (test 286 K/CU MM 150-450 code = 756) MEAN PLATELET VOLUME (BEAKER) 9.2 fL 9.4-12.4 L (test code = 754) NUCLEATED RED BLOOD CELLS 0 /100 WBC 0-0 (BEAKER) (test code = 413) PROTHROMBIN TIME/[id number] 17:22:00 Test Item Value Reference Range Interpretation Comments PROTIME (BEAKER) (test code = 18.2 seconds 11.9-14.2 H 759) INR (BEAKER) (test code = 370) 1.6 <=5.9 Effective 02/25/2019: PT Reference Range ChangeNew: 11.9-14.2 Previous: 11.7- 14.7RECOMMENDED COUMADIN/WARFARIN INR THERAPY RANGESSTANDARD DOSE: 2.0-3.0 Includes: PROPHYLAXIS for venous thrombosis, systemic embolization; TREATMENT for venous thrombosis and/or pulmonary embolus.HIGH RISK: Target INR is2.5-3.5 for patients wiht mechanical heart valves.POCT-GLUCOSE [id number] 16:58:00 Test Item Value Reference Range Interpretation Comments POC-GLUCOSE METER 93 mg/dL 70-110 : TESTED Kaya T [facility] 6720 (BEAKER) (test code = [place], 1538) [address]: Community Coordinator/Techni astrid ID = [id number] for KALEB ODONNELL POCT-GLUCOSE [id number] 16:41:00 Test Item Value Reference Range Interpretation Comments POC-GLUCOSE METER 166 mg/dL 70-[address] [facility] 5946 (MATTHEW) (test code = [place] 1538) [address] ANG, NON-TUNNELED CATH/PICC >5 Y.O. WITH [id number] 14:38:00Reason for exam:->need for IV accessFINAL REPORT Right upper extremity PICC insertion. History: Needfor long-term IV therapy. Pig Handler: Brandon Devries MD. Cloud Services Architect: Char Portillo (fellow). Modality: Sonography and fluoroscopy. Sedation: None. Anesthesia: Two percent Lidocaine without epinephrine. Approach: Right basilic vein Estimated blood loss: < 5 cc. Specimen: None. Fluoroscopy Time: 0.4 min.Reference Air Kerma (Ka, r): 4.4 mGy. Technique: [...] needle into the right atrium. A 5 Beninese peel-away sheath was placed. The 5 Beninese double- lumen PICC line was measured and cut at [...] Devries Verified Date/Time: 01/19/2019 14:38:36 Reading Location: [facility] P048 Angio Body Reading Room MAGNESIUM 2019-01-19 07:02:00 Test Item Value Reference Range Interpretation Comments MAGNESIUM (BEAKER) 1.8 mg/dL 1.6-2.6 Specimen slightly (test code = 627) hemolyzed BASIC METABOLIC [id number] 07:02:00 Test Item Value Reference Range Interpretation Comments SODIUM (BEAKER) 141 meq/L 136-145 (test code = 381) POTASSIUM (BEAKER) 3.7 meq/L 3.5-5.1 Specimen slightly (test code = 379) hemolyzed CHLORIDE (BEAKER) 114 meq/L 98-107 H (test code = 382) CO2 (BEAKER) (test 21 meq/L 22-29 L code = 355) BLOOD UREA NITROGEN 17 mg/dL 7-21 (BEAKER) (test code = 354) CREATININE (BEAKER) 1.09 mg/dL 0.57-1.25 Specimen slightly (test code = 358) hemolyzed GLUCOSE RANDOM 116 mg/dL 70-105 H (BEAKER) (test code = 652) CALCIUM (BEAKER) 8.8 mg/dL 8.4-10.2 (test code = 697) EGFR (BEAKER) (test 66 mL/min/1.73 ESTIMA ESTRELLA GFR IS code = 1092) sq m NOT ACCURATE CREATININE CLEARANCE IN PREDICTING GLOMERULAR FILTRATION RATE . ESTIMATED GFR I S NOT APPLICABLE FOR DIALYSIS PATIEN TS. POCT-GLUCOSE [id number] 06:28:00 Test Item Value Reference Range Interpretation Comments POC-GLUCOSE METER 121 mg/dL 70-110 H [facility] (BEAKER) (test code = UMESH [place] 1538) [address] POCT-GLUCOSE [id number] 21:25:00 Test Item Value Reference Range Interpretation Comments POC-GLUCOSE METER 163 mg/dL 70-110 H [facility] (BEAKER) (test code = HANSWANDA Rick [facility] 1538) [address] POCT-GLUCOSE [id number] 17:12:00 Test Item Value Reference Range Interpretation Comments POC-GLUCOSE METER 191 mg/dL 70-110 H TESTED AT [place] [address] ([facility]) (test code = UMESH Rick [facility] 1538) [address] POCT-GLUCOSE [id number] 13:03:00 Test Item Value Reference Range Interpretation Comments POC-GLUCOSE METER 211 mg/dL 70-110 H TESTED AT [place] [address] ([facility]) (test code = [facility] Prabhjot [facility] 1538) [address] POCT-GLUCOSE [id number] 08:47:00 Test Item Value Reference Range Interpretation Comments POC-GLUCOSE METER 124 mg/dL 70-110 H TESTED AT [place] [address] ([facility]) (test code = [facility] Prabhjot [facility] 1538) [address] POCT-GLUCOSE [id number] 21:04:00 Test Item Value Reference Range Interpretation Comments POC-GLUCOSE METER 213 mg/dL 70-110 H TESTED AT [place] [address] ([facility]) (test code = [facility] Prabhjot [facility] 1538) [address] POCT-GLUCOSE [id number] 17:36:00 Test Item Value Reference Range Interpretation Comments POC-GLUCOSE METER 174 mg/dL 70-110 H TESTED AT [place] [address] ([facility]) (test code = [facility] Prabhjot [facility] 1538) [address] POCT-GLUCOSE [id number] 11:59:00 Test Item Value Reference Range Interpretation Comments POC-GLUCOSE METER 175 mg/dL 70-110 H TESTED AT [place] [address] ([facility]) (test code = [facility] 1538) [address] POCT-GLUCOSE [id number] 08:13:00 Test Item Value Reference Range Interpretation Comments POC-GLUCOSE METER 109 mg/dL 70-110 TESTED AT [place] [address] ([facility]) (test code = [facility] 1538) [address] [id number] 07:54:00 Test Item Value Reference Range Interpretation Comments PHOSPHORUS ([facility]) (test code = 3.1 mg/dL 2.3-4.7 604) [id number] 07:54:00 Test Item Value Reference Range Interpretation Comments MAGNESIUM (BEAKER) (test code = 1.7 mg/dL 1.6-2.6 627) BASIC METABOLIC [id number] 07:54:00 Test Item Value Reference Range Interpretation Comments SODIUM (BEAKER) 140 meq/L 136-145 (test code = 381) POTASSIUM (BEAKER) 3.7 meq/L 3.5-5.1 (test code = 379) CHLORIDE (BEAKER) 112 meq/L 98-107 H (test code = 382) CO2 (BEAKER) (test 20 meq/L 22-29 L code = 355) BLOOD UREA NITROGEN 22 mg/dL 7-21 H (BEAKER) (test code = 354) CREATININE (BEAKER) 1.20 mg/dL 0.57-1.25 (test code = 358) GLUCOSE RANDOM 85 mg/dL 70-105 (BEAKER) (test code = 652) CALCIUM (BEAKER) 8.9 mg/dL 8.4-10.2 (test code = 697) EGFR (BEAKER) (test 59 mL/min/1.73 ESTIMA ESTRELLA GFR IS code = 1092) sq m NOT ACCURATE CREATININE CLEARANCE IN PREDICTING GLOMERULAR FILTRATION RATE . ESTIMATED GFR I S NOT APPLICABLE FOR DIALYSIS PATIEN TS. CALCIUM, [id number] 06:26:00 Test Item Value Reference Range Interpretation Comments CALCIUM IONIZED (BEAKER) (test 1.08 mmol/L 1.12-1.27 L code = 698) PH, BLOOD (BEAKER) (test code = 7.46 1810) CBC W/PLT COUNT & AUTO [id number] 05:04:00 Test Item Value Reference Range Interpretation Comments WHITE BLOOD CELL COUNT (BEAKER) 8.0 K/ L 3.5-10.5 (test code = 775) RED BLOOD CELL COUNT (BEAKER) 3.63 M/ L 4.63-6.08 L (test code = 761) HEMOGLOBIN (BEAKER) (test code = 9.3 GM/DL 13.7-17.5 L 410) HEMATOCRIT (BEAKER) (test code = 31.1 % 40.1-51.0 L 411) MEAN CORPUSCULAR VOLUME (BEAKER) 85.7 fL 79.0-92.2 (test code = 753) MEAN CORPUSCULAR HEMOGLOBIN 25.6 pg 25.7-32.2 L (BEAKER) (test code = 751) MEAN CORPUSCULAR HEMOGLOBIN CONC 29.9 GM/DL 32.3-36.5 L (BEAKER) (test code = 752) RED CELL DISTRIBUTION WIDTH 17.6 % 11.6-14.4 H (BEAKER) (test code = 412) PLATELET COUNT (BEAKER) (test 188 K/CU MM 150-450 code = 756) MEAN PLATELET VOLUME (BEAKER) 9.8 fL 9.4-12.4 (test code = 754) NUCLEATED RED BLOOD CELLS 0 /100 WBC 0-0 (BEAKER) (test code = 413) NEUTROPHILS RELATIVE PERCENT 59 % (BEAKER) (test code = 429) LYMPHOCYTES RELATIVE PERCENT 30 % (BEAKER) (test code = 430) MONOCYTES RELATIVE PERCENT 7 % (BEAKER) (test code = 431) EOSINOPHILS RELATIVE PERCENT 3 % (BEAKER) (test code = 432) BASOPHILS RELATIVE PERCENT 1 % (BEAKER) (test code = 437) NEUTROPHILS ABSOLUTE COUNT 4.67 K/ L 1.78-5.38 (BEAKER) (test code = 670) LYMPHOCYTES ABSOLUTE COUNT 2.37 K/ L 1.32-3.57 (BEAKER) (test code = 414) MONOCYTES ABSOLUTE COUNT (BEAKER) 0.55 K/ L 0.30-0.82 (test code = 415) EOSINOPHILS ABSOLUTE COUNT 0.27 K/ L 0.04-0.54 (BEAKER) (test code = 416) BASOPHILS ABSOLUTE COUNT (BEAKER) 0.06 K/ L 0.01-0.08 (test code = 417) IMMATURE GRANULOCYTES-RELATIVE 1 % 0-1 PERCENT (BEAKER) (test code = 2801) POCT-GLUCOSE [id number] 21:25:00 Test Item Value Reference Range Interpretation Comments POC-GLUCOSE METER 187 mg/dL 70-[address] [facility] 6720 [facility] (test code = UMESH [place] 1538) [address] POCT-GLUCOSE [id number] 18:09:00 Test Item Value Reference Range Interpretation Comments POC-GLUCOSE METER 182 mg/dL 70-[address] [facility] 6720 (BEAKER) (test code = [place] 1538) [address] POCT-GLUCOSE [id number] 13:07:00 Test Item Value Reference Range Interpretation Comments POC-GLUCOSE METER 130 mg/dL 70-110 H TESTED AT [place] [address] ([facility]) (test code = UMESH Rick [facility] 1538) [address] PROTHROMBIN [id number] 07:45:00 Test Item Value Reference Range Interpretation Comments PROTIME ([facility]) (test code = 16.0 seconds 11.7-14.7 H 759) INR ([facility]) (test code = 370) 1.3 <=5.9 RECOMMENDED COUMADIN/WARFARIN INR THERAPY RANGESSTANDARD DOSE: 2.0 - 3.0 Includes: PROPHYLAXIS forvenous thrombosis, systemic embolization; TREATMENT for venous thrombosis and/or pulmonary embolus.HIGH RISK: Target INR is 2.5-3.5 for patients with mechanical heart valves.POCT-GLUCOSE [id number] 06:24:00 Test Item Value Reference Range Interpretation Comments POC-GLUCOSE METER 105 mg/dL 70-110 TESTED AT [place] [address] ([facility]) (test code = UMESH Rick [facility] 1538) [address] POCT-GLUCOSE [id number] 21:22:00 Test Item Value Reference Range Interpretation Comments POC-GLUCOSE METER 149 mg/dL 70-110 H TESTED AT [place] [address] ([facility]) (test code = UMESH Rick [facility] 1538) [address] POCT-GLUCOSE [id number] 17:11:00 Test Item Value Reference Range Interpretation Comments POC-GLUCOSE METER 147 mg/dL 70-110 H TESTED AT [place] [address] ([facility]) (test code = UMESH Rick [facility] 1538) [address] POCT-GLUCOSE [id number] 12:59:00 Test Item Value Reference Range Interpretation Comments POC-GLUCOSE METER 144 mg/dL 70-110 H TESTED AT [place] [address] ([facility]) (test code = UMESH Rick [place] 1538) [address] POCT-GLUCOSE [id number] 09:26:00 Test Item Value Reference Range Interpretation Comments POC-GLUCOSE METER 135 mg/dL 70-110 H TESTED AT [place] [address] ([facility]) (test code = UMESH Rick [place] 1538) [address] BASIC METABOLIC [id number] 04:09:00 Test Item Value Reference Range Interpretation Comments SODIUM (BEAKER) 140 meq/L 136-145 (test code = 381) POTASSIUM (BEAKER) 3.5 meq/L 3.5-5.1 (test code = 379) CHLORIDE (BEAKER) 109 meq/L 98-107 H (test code = 382) CO2 (BEAKER) (test 22 meq/L 22-29 code = 355) BLOOD UREA NITROGEN 23 mg/dL 7-21 H (BEAKER) (test code = 354) CREATININE (BEAKER) 1.31 mg/dL 0.57-1.25 H (test code = 358) GLUCOSE RANDOM 103 mg/dL 70-105 (BEAKER) (test code = 652) CALCIUM (BEAKER) 9.0 mg/dL 8.4-10.2 (test code = 697) EGFR (BEAKER) (test 53 mL/min/1.73 ESTIMA ESTRELLA GFR IS code = 1092) sq m NOT ACCURATE CREATININE CLEARANCE IN PREDICTING GLOMERULAR FILTRATION RATE . ESTIMATED GFR I S NOT APPLICABLE FOR DIALYSIS PATIEN TS. POCT-GLUCOSE [id number] 21:24:00 Test Item Value Reference Range Interpretation Comments POC-GLUCOSE METER 166 mg/dL 70-110 H TESTED AT [place] [address] ([facility]) (test code = [facility] 1538) [address] POCT-GLUCOSE [id number] 17:33:00 Test Item Value Reference Range Interpretation Comments POC-GLUCOSE METER 195 mg/dL 70-110 H TESTED AT [place] [address] ([facility]) (test code = [facility] 1538) [address] POCT-GLUCOSE [id number] 13:44:00 Test Item Value Reference Range Interpretation Comments POC-GLUCOSE METER 213 mg/dL 70-110 H TESTED AT [place] [id number] [facility] (test code = [facility] [employer] [place] 1538) [address] POCT-GLUCOSE [id number] 09:29:00 Test Item Value Reference Range Interpretation Comments POC-GLUCOSE METER 150 mg/dL 70-[address] [facility] 6720 ([facility] (test code = [facility] [place] 1538) [address] [id number] 05:59:00 Test Item Value Reference Range Interpretation Comments MAGNESIUM (BEAKER) 1.7 mg/dL 1.6-2.6 Specimen slightly (test code = 627) hemolyzed [id number] 05:59:00 Test Item Value Reference Range Interpretation Comments PHOSPHORUS (BEAKER) 3.2 mg/dL 2.3-4.7 Specimen slightly (test code = 604) hemolyzed BASIC METABOLIC [id number] 05:59:00 Test Item Value Reference Range Interpretation Comments SODIUM (BEAKER) 142 meq/L 136-145 (test code = 381) POTASSIUM (BEAKER) 3.5 meq/L 3.5-5.1 Specimen slightly (test code = 379) hemolyzed CHLORIDE (BEAKER) 111 meq/L 98-107 H (test code = 382) CO2 (BEAKER) (test 22 meq/L 22-29 code = 355) BLOOD UREA NITROGEN 24 mg/dL 7-21 H (BEAKER) (test code = 354) CREATININE (BEAKER) 1.32 mg/dL 0.57-1.25 H Specimen slightly (test code = 358) hemolyzed GLUCOSE RANDOM 122 mg/dL 70-105 H (BEAKER) (test code = 652) CALCIUM (BEAKER) 9.0 mg/dL 8.4-10.2 (test code = 697) EGFR (BEAKER) (test 53 mL/min/1.73 ESTIMA ESTRELLA GFR IS code = 1092) sq m NOT ACCURATE CREATININE CLEARANCE IN PREDICTING GLOMERULAR FILTRATION RATE . ESTIMATED GFR I S NOT APPLICABLE FOR DIALYSIS PATIEN TS. B-TYPE NATRIURETIC FACTOR (BNP)2019-01-14 05:58:00 Test Item Value Reference Range Interpretation Comments B-TYPE NATRIURETIC PEPTIDE (BEAKER) 298 pg/mL 0-100 H (test code = 700) CBC W/PLT COUNT & AUTO [id number] 05:35:00 Test Item Value Reference Range Interpretation Comments WHITE BLOOD CELL COUNT (BEAKER) 10.1 K/ L 3.5-10.5 (test code = 775) RED BLOOD CELL COUNT (BEAKER) 3.57 M/ L 4.63-6.08 L (test code = 761) HEMOGLOBIN (BEAKER) (test code = 9.3 GM/DL 13.7-17.5 L 410) HEMATOCRIT (BEAKER) (test code = 30.1 % 40.1-51.0 L 411) MEAN CORPUSCULAR VOLUME (BEAKER) 84.3 fL 79.0-92.2 (test code = 753) MEAN CORPUSCULAR HEMOGLOBIN 26.1 pg 25.7-32.2 (BEAKER) (test code = 751) MEAN CORPUSCULAR HEMOGLOBIN CONC 30.9 GM/DL 32.3-36.5 L (BEAKER) (test code = 752) RED CELL DISTRIBUTION WIDTH 17.6 % 11.6-14.4 H (BEAKER) (test code = 412) PLATELET COUNT (BEAKER) (test 187 K/CU MM 150-450 code = 756) MEAN PLATELET VOLUME (BEAKER) 9.3 fL 9.4-12.4 L (test code = 754) NUCLEATED RED BLOOD CELLS 0 /100 WBC 0-0 (BEAKER) (test code = 413) NEUTROPHILS RELATIVE PERCENT 69 % (BEAKER) (test code = 429) LYMPHOCYTES RELATIVE PERCENT 23 % (BEAKER) (test code = 430) MONOCYTES RELATIVE PERCENT 6 % (BEAKER) (test code = 431) EOSINOPHILS RELATIVE PERCENT 2 % (BEAKER) (test code = 432) BASOPHILS RELATIVE PERCENT 0 % (BEAKER) (test code = 437) NEUTROPHILS ABSOLUTE COUNT 6.93 K/ L 1.78-5.38 H (BEAKER) (test code = 670) LYMPHOCYTES ABSOLUTE COUNT 2.33 K/ L 1.32-3.57 (BEAKER) (test code = 414) MONOCYTES ABSOLUTE COUNT (BEAKER) 0.56 K/ L 0.30-0.82 (test code = 415) EOSINOPHILS ABSOLUTE COUNT 0.23 K/ L 0.04-0.54 (BEAKER) (test code = 416) BASOPHILS ABSOLUTE COUNT (BEAKER) 0.03 K/ L 0.01-0.08 (test code = 417) IMMATURE GRANULOCYTES-RELATIVE 0 % 0-1 PERCENT (BEAKER) (test code = 2801) POCT-GLUCOSE [id number] 21:05:00 Test Item Value Reference Range Interpretation Comments POC-GLUCOSE METER 168 mg/dL 70-[address] [facility] 6720 (BEAKER) (test code = UMESH BOYLE 1538) [address] POCT-GLUCOSE [id number] 18:28:00 Test Item Value Reference Range Interpretation Comments POC-GLUCOSE METER 220 mg/dL 70-110 H TESTED AT [place] [address] (BEAKER) (test code = UMESH Rick [place] 1538) [id number] POCT-GLUCOSE [id number] 13:39:00 Test Item Value Reference Range Interpretation Comments POC-GLUCOSE METER 262 mg/dL 70-110 H TESTED AT [place] [address] (BEAKER) (test code = UMESH Rick [facility] 1538) [address] POCT-GLUCOSE [id number] 09:18:00 Test Item Value Reference Range Interpretation Comments POC-GLUCOSE METER 135 mg/dL 70-110 H TESTED AT [place] [address] (BEAKER) (test code = UMESH Rick [facility] 1538) [address] OSMOLALITY, [id number] 07:19:00 Test Item Value Reference Range Interpretation Comments OSMOLALITY URINE 686 mOsm/kg 40-1,400 Performed a t [facility] ([facility]) (test code Laborato slade = 614) CALCIUM, [id number] 06:54:00 Test Item Value Reference Range Interpretation Comments CALCIUM IONIZED (BEAKER) (test 1.01 mmol/L 1.12-1.27 L code = 698) PH, BLOOD (BEAKER) (test code = 7.50 1810) [id number] 06:20:00 Test Item Value Reference Range Interpretation Comments PHOSPHORUS (BEAKER) (test code = 3.2 mg/dL 2.3-4.7 604) [id number] 06:20:00 Test Item Value Reference Range Interpretation Comments MAGNESIUM (BEAKER) (test code = 1.7 mg/dL 1.6-2.6 627) BASIC METABOLIC [id number] 06:20:00 Test Item Value Reference Range Interpretation Comments SODIUM (BEAKER) 140 meq/L 136-145 (test code = 381) POTASSIUM (BEAKER) 3.5 meq/L 3.5-5.1 (test code = 379) CHLORIDE (BEAKER) 109 meq/L 98-107 H (test code = 382) CO2 (BEAKER) (test 24 meq/L 22-29 code = 355) BLOOD UREA NITROGEN 27 mg/dL 7-21 H (BEAKER) (test code = 354) CREATININE (BEAKER) 1.35 mg/dL 0.57-1.25 H (test code = 358) GLUCOSE RANDOM 135 mg/dL 70-105 H (BEAKER) (test code = 652) CALCIUM (BEAKER) 9.1 mg/dL 8.4-10.2 (test code = 697) EGFR (BEAKER) (test 52 mL/min/1.73 ESTIMA ESTRELLA GFR IS code = 1092) sq m NOT ACCURATE CREATININE CLEARANCE IN PREDICTING GLOMERULAR FILTRATION RATE . ESTIMATED GFR I S NOT APPLICABLE FOR DIALYSIS PATIEN TS. CBC W/PLT COUNT & AUTO [id number] 05:44:00 Test Item Value Reference Range Interpretation Comments WHITE BLOOD CELL COUNT (BEAKER) 7.2 K/ L 3.5-10.5 (test code = 775) RED BLOOD CELL COUNT (BEAKER) 3.47 M/ L 4.63-6.08 L (test code = 761) HEMOGLOBIN (BEAKER) (test code = 9.0 GM/DL 13.7-17.5 L 410) HEMATOCRIT (BEAKER) (test code = 29.2 % 40.1-51.0 L 411) MEAN CORPUSCULAR VOLUME (BEAKER) 84.1 fL 79.0-92.2 (test code = 753) MEAN CORPUSCULAR HEMOGLOBIN 25.9 pg 25.7-32.2 (BEAKER) (test code = 751) MEAN CORPUSCULAR HEMOGLOBIN CONC 30.8 GM/DL 32.3-36.5 L (BEAKER) (test code = 752) RED CELL DISTRIBUTION WIDTH 18.0 % 11.6-14.4 H (BEAKER) (test code = 412) PLATELET COUNT (BEAKER) (test 195 K/CU MM 150-450 code = 756) MEAN PLATELET VOLUME (BEAKER) 9.1 fL 9.4-12.4 L (test code = 754) NUCLEATED RED BLOOD CELLS 0 /100 WBC 0-0 (BEAKER) (test code = 413) NEUTROPHILS RELATIVE PERCENT 53 % (BEAKER) (test code = 429) LYMPHOCYTES RELATIVE PERCENT 35 % (BEAKER) (test code = 430) MONOCYTES RELATIVE PERCENT 8 % (BEAKER) (test code = 431) EOSINOPHILS RELATIVE PERCENT 4 % (BEAKER) (test code = 432) BASOPHILS RELATIVE PERCENT 1 % (BEAKER) (test code = 437) NEUTROPHILS ABSOLUTE COUNT 3.80 K/ L 1.78-5.38 (BEAKER) (test code = 670) LYMPHOCYTES ABSOLUTE COUNT 2.52 K/ L 1.32-3.57 (BEAKER) (test code = 414) MONOCYTES ABSOLUTE COUNT (BEAKER) 0.55 K/ L 0.30-0.82 (test code = 415) EOSINOPHILS ABSOLUTE COUNT 0.30 K/ L 0.04-0.54 (BEAKER) (test code = 416) BASOPHILS ABSOLUTE COUNT (BEAKER) 0.04 K/ L 0.01-0.08 (test code = 417) IMMATURE GRANULOCYTES-RELATIVE 0 % 0-1 PERCENT (BEAKER) (test code = 2801) MR, BRAIN, [id number] 04:02:00FINAL REPORT MR, BRAIN, WITH \\T\\ WITHOUT CONTRAST INDICATION: large renal mass, metastatic workup Technique: MRI of the brain utilizing axial T1, T2, FLAIR, GRE, DWI, sagittal T1; and postgadolinium axial, sagittal, and coronal T1-weighted images. COMPARISON: None FINDINGS:Brainparenchyma is normal in morphology. Midline [...] No evidence of intracranial metastatic disease Signed: Ashley Mcleod MDReport Verified Date/Time: 01/13/2019 04:02:20 Reading Location: [address] Neuro Reading Room POCT-GLUCOSE [id number] 22:05:00 Test Item Value Reference Range Interpretation Comments POC-GLUCOSE METER 187 mg/dL 70-[address] [facility] 67 ([facility]) (test code = UMESH Rick [facility] 1538) [address] POCT-GLUCOSE [id number] 18:17:00 Test Item Value Reference Range Interpretation Comments POC-GLUCOSE METER 137 mg/dL 70-[address] [facility] 6720 ([facility]) (test code = UMESH Rick [facility] 1538) [address] POCT-GLUCOSE [id number] 13:08:00 Test Item Value Reference Range Interpretation Comments POC-GLUCOSE METER 221 mg/dL 70-[address] [facility] 6720 ([facility]) (test code = UMESH Rick [facility] 1538) [address] CT, CHEST, WITHOUT [id number] 13:03:00FINAL REPORT CT of the Chest dated [...] Dependent atelectasis in both lungs. Signed: Lurdes Fernandeseport Verified Date/Time: 01/12/2019 13:03:39 Reading Location: [address] Body Reading Room POCT-GLUCOSE [id number] 07:53:00 Test Item Value Reference Range Interpretation Comments POC-GLUCOSE METER 156 mg/dL 70-[address] [facility] 6720 ([facility]) (test code = UMESH Rick [facility] 1538) [address] BASIC METABOLIC [id number] 03:16:00 Test Item Value Reference Range Interpretation Comments SODIUM (BEAKER) 138 meq/L 136-145 (test code = 381) POTASSIUM (BEAKER) 3.6 meq/L 3.5-5.1 (test code = 379) CHLORIDE (BEAKER) 106 meq/L 98-107 (test code = 382) CO2 (BEAKER) (test 22 meq/L 22-29 code = 355) BLOOD UREA NITROGEN 31 mg/dL 7-21 H (BEAKER) (test code = 354) CREATININE (BEAKER) 1.44 mg/dL 0.57-1.25 H (test code = 358) GLUCOSE RANDOM 123 mg/dL 70-105 H (BEAKER) (test code = 652) CALCIUM (BEAKER) 9.1 mg/dL 8.4-10.2 (test code = 697) EGFR (BEAKER) (test 48 mL/min/1.73 ESTIMA ESTRELLA GFR IS code = 1092) sq m NOT ACCURATE CREATININE CLEARANCE IN PREDICTING GLOMERULAR FILTRATION RATE . ESTIMATED GFR I S NOT APPLICABLE FOR DIALYSIS PATIEN TS. POCT-GLUCOSE [id number] 21:12:00 Test Item Value Reference Range Interpretation Comments POC-GLUCOSE METER 159 mg/dL 70-[address] [facility] 67 ([facility]) (test code = UMESH Rick [facility] 1538) [address] POCT-GLUCOSE [id number] 17:44:00 Test Item Value Reference Range Interpretation Comments POC-GLUCOSE METER 158 mg/dL 70-110 H TESTED AT [place] [address] ([facility]) (test code = [facility] Prabhjot [facility] 1538) [address] U/S, RENAL, [id number] 10:50:00Reason for exam:->AKIShould this be performed at [...] side is 1.2 cm. Color flow is docu mented to both kidneys. The bladder is partially filled with urine. Impression: Right renal mass, previously biopsied. No hydronephrosis. Signed: Debora Bird MDReport Verified Date/Time: 01/11/2019 10:50:26 Reading Location: [address] Ortho Consult Reading Room MR, MRA ABDOMEN, WITHOUT FOLLOW WITH CONTRAST 2019-01-11 08:43:00FINAL REPORT MRA of the abdominal aorta [...] is seen at image 33 of the poste rior aspect of the right hepatic lobe. This [...] iliac, and the visualised external iliac arteries, bilaterally,are widely patent. The coeliac axis, SMA, DARRION are widely patent. Single left and right renal arteries are seen that are widely patent. The portal vein, SMV, splenic vein are patent with no venous thrombus identified. The IVC (from the level of the aortic bifurcation extending to the level before the en trance of the right renal vein into the [...] scan performed. Refer to formal dictation by Packaging Sales Consultant Radiologist for details. In this examination, tumour [...] series). Signed: Yoshi Leger MDReport Verified Date/Time: 01/11/2019 08:43:33 Reading Location: [place] [address] Cardiology MRI POCT-GLUCOSE [id number] 07:57:00 Test Item Value Reference Range Interpretation Comments POC-GLUCOSE METER 137 mg/dL 70-[address] [facility] 6720 (BEAKER) (test code = UMESH Rick [facility] 1538) [address] BASIC METABOLIC [id number] 07:37:00 Test Item Value Reference Range Interpretation Comments SODIUM (BEAKER) 141 meq/L 136-145 (test code = 381) POTASSIUM (BEAKER) 4.2 meq/L 3.5-5.1 (test code = 379) CHLORIDE (BEAKER) 106 meq/L 98-107 (test code = 382) CO2 (BEAKER) (test 25 meq/L 22-29 code = 355) BLOOD UREA NITROGEN 35 mg/dL 7-21 H (BEAKER) (test code = 354) CREATININE (BEAKER) 1.67 mg/dL 0.57-1.25 H (test code = 358) GLUCOSE RANDOM 121 mg/dL 70-105 H (BEAKER) (test code = 652) CALCIUM (BEAKER) 9.3 mg/dL 8.4-10.2 (test code = 697) EGFR (BEAKER) (test 40 mL/min/1.73 ESTIMA ESTRELLA GFR IS code = 1092) sq m NOT ACCURATE CREATININE CLEARANCE IN PREDICTING GLOMERULAR FILTRATION RATE . ESTIMATED GFR I S NOT APPLICABLE FOR DIALYSIS PATIEN TS. CBC W/PLT COUNT & AUTO [id number] 06:21:00 Test Item Value Reference Range Interpretation Comments WHITE BLOOD CELL COUNT (BEAKER) 7.3 K/ L 3.5-10.5 (test code = 775) RED BLOOD CELL COUNT (BEAKER) 3.65 M/ L 4.63-6.08 L (test code = 761) HEMOGLOBIN (BEAKER) (test code = 9.7 GM/DL 13.7-17.5 L 410) HEMATOCRIT (BEAKER) (test code = 30.8 % 40.1-51.0 L 411) MEAN CORPUSCULAR VOLUME (BEAKER) 84.4 fL 79.0-92.2 (test code = 753) MEAN CORPUSCULAR HEMOGLOBIN 26.6 pg 25.7-32.2 (BEAKER) (test code = 751) MEAN CORPUSCULAR HEMOGLOBIN CONC 31.5 GM/DL 32.3-36.5 L (BEAKER) (test code = 752) RED CELL DISTRIBUTION WIDTH 18.2 % 11.6-14.4 H (BEAKER) (test code = 412) PLATELET COUNT (BEAKER) (test 229 K/CU MM 150-450 code = 756) MEAN PLATELET VOLUME (BEAKER) 9.7 fL 9.4-12.4 (test code = 754) NUCLEATED RED BLOOD CELLS 0 /100 WBC 0-0 (BEAKER) (test code = 413) NEUTROPHILS RELATIVE PERCENT 55 % (BEAKER) (test code = 429) LYMPHOCYTES RELATIVE PERCENT 31 % (BEAKER) (test code = 430) MONOCYTES RELATIVE PERCENT 8 % (BEAKER) (test code = 431) EOSINOPHILS RELATIVE PERCENT 5 % (BEAKER) (test code = 432) BASOPHILS RELATIVE PERCENT 1 % (BEAKER) (test code = 437) NEUTROPHILS ABSOLUTE COUNT 3.99 K/ L 1.78-5.38 (BEAKER) (test code = 670) LYMPHOCYTES ABSOLUTE COUNT 2.28 K/ L 1.32-3.57 (BEAKER) (test code = 414) MONOCYTES ABSOLUTE COUNT (BEAKER) 0.59 K/ L 0.30-0.82 (test code = 415) EOSINOPHILS ABSOLUTE COUNT 0.37 K/ L 0.04-0.54 (BEAKER) (test code = 416) BASOPHILS ABSOLUTE COUNT (BEAKER) 0.05 K/ L 0.01-0.08 (test code = 417) IMMATURE GRANULOCYTES-RELATIVE 0 % 0-1 PERCENT (BEAKER) (test code = 2801) POCT-GLUCOSE [id number] 21:13:00 Test Item Value Reference Range Interpretation Comments POC-GLUCOSE METER 188 mg/dL 70-[address] [facility] 6720 (BEAKER) (test code = UMESH BOYLE 1538) [address] POCT-GLUCOSE [id number] 18:14:00 Test Item Value Reference Range Interpretation Comments POC-GLUCOSE METER 159 mg/dL 70-[address] [facility] 6720 (BEAKER) (test code = UMESH [place] 1538) [address] POCT-GLUCOSE [id number] 12:15:00 Test Item Value Reference Range Interpretation Comments POC-GLUCOSE METER 174 mg/dL 70-[address] [facility] 6720 (BEAKER) (test code = UMESH [place] 1538) [address] BASIC METABOLIC [id number] 11:21:00 Test Item Value Reference Range Interpretation Comments SODIUM (BEAKER) 142 meq/L 136-145 (test code = 381) POTASSIUM (BEAKER) 3.9 meq/L 3.5-5.1 (test code = 379) CHLORIDE (BEAKER) 112 meq/L 98-107 H (test code = 382) CO2 (BEAKER) (test 22 meq/L 22-29 code = 355) BLOOD UREA NITROGEN 35 mg/dL 7-21 H (BEAKER) (test code = 354) CREATININE (BEAKER) 1.57 mg/dL 0.57-1.25 H (test code = 358) GLUCOSE RANDOM 149 mg/dL 70-105 H (BEAKER) (test code = 652) CALCIUM (BEAKER) 8.3 mg/dL 8.4-10.2 L (test code = 697) EGFR (BEAKER) (test 43 mL/min/1.73 ESTIMA ESTRELLA GFR IS code = 1092) sq m NOT ACCURATE CREATININE CLEARANCE IN PREDICTING GLOMERULAR FILTRATION RATE . ESTIMATED GFR I S NOT APPLICABLE FOR DIALYSIS PATIEN TS. CBC W/PLT COUNT & AUTO [id number] 09:55:00 Test Item Value Reference Range Interpretation Comments WHITE BLOOD CELL COUNT (BEAKER) 7.2 K/ L 3.5-10.5 (test code = 775) RED BLOOD CELL COUNT (BEAKER) 3.54 M/ L 4.63-6.08 L (test code = 761) HEMOGLOBIN (BEAKER) (test code = 9.3 GM/DL 13.7-17.5 L 410) HEMATOCRIT (BEAKER) (test code = 30.0 % 40.1-51.0 L 411) MEAN CORPUSCULAR VOLUME (BEAKER) 84.7 fL 79.0-92.2 (test code = 753) MEAN CORPUSCULAR HEMOGLOBIN 26.3 pg 25.7-32.2 (BEAKER) (test code = 751) MEAN CORPUSCULAR HEMOGLOBIN CONC 31.0 GM/DL 32.3-36.5 L (BEAKER) (test code = 752) RED CELL DISTRIBUTION WIDTH 18.1 % 11.6-14.4 H (BEAKER) (test code = 412) PLATELET COUNT (BEAKER) (test 222 K/CU MM 150-450 code = 756) MEAN PLATELET VOLUME (BEAKER) 9.2 fL 9.4-12.4 L (test code = 754) NUCLEATED RED BLOOD CELLS 0 /100 WBC 0-0 (BEAKER) (test code = 413) NEUTROPHILS RELATIVE PERCENT 62 % (BEAKER) (test code = 429) LYMPHOCYTES RELATIVE PERCENT 26 % (BEAKER) (test code = 430) MONOCYTES RELATIVE PERCENT 8 % (BEAKER) (test code = 431) EOSINOPHILS RELATIVE PERCENT 3 % (BEAKER) (test code = 432) BASOPHILS RELATIVE PERCENT 1 % (BEAKER) (test code = 437) NEUTROPHILS ABSOLUTE COUNT 4.43 K/ L 1.78-5.38 (BEAKER) (test code = 670) LYMPHOCYTES ABSOLUTE COUNT 1.85 K/ L 1.32-3.57 (BEAKER) (test code = 414) MONOCYTES ABSOLUTE COUNT (BEAKER) 0.57 K/ L 0.30-0.82 (test code = 415) EOSINOPHILS ABSOLUTE COUNT 0.24 K/ L 0.04-0.54 (BEAKER) (test code = 416) BASOPHILS ABSOLUTE COUNT (BEAKER) 0.04 K/ L 0.01-0.08 (test code = 417) IMMATURE GRANULOCYTES-RELATIVE 1 % 0-1 PERCENT (BEAKER) (test code = 2801) BASIC METABOLIC [id number] 23:02:00 Test Item Value Reference Range Interpretation Comments SODIUM (BEAKER) 137 meq/L 136-145 (test code = 381) POTASSIUM (BEAKER) 4.6 meq/L 3.5-5.1 (test code = 379) CHLORIDE (BEAKER) 109 meq/L 98-107 H (test code = 382) CO2 (BEAKER) (test 22 meq/L 22-29 code = 355) BLOOD UREA NITROGEN 38 mg/dL 7-21 H (BEAKER) (test code = 354) CREATININE (BEAKER) 1.91 mg/dL 0.57-1.25 H (test code = 358) GLUCOSE RANDOM 157 mg/dL 70-105 H ([facility]) (test code = 652) CALCIUM (BEAKER) 8.9 mg/dL 8.4-10.2 (test code = 697) EGFR ([facility]) (test 35 mL/min/1.73 ESTIMA ESTRELLA GFR IS code = 1092) sq m NOT ACCURATE CREATININE CLEARANCE IN PREDICTING GLOMERULAR FILTRATION RATE . ESTIMATED GFR I S NOT APPLICABLE FOR DIALYSIS PATIEN TS. POCT-GLUCOSE [id number] 21:56:00 Test Item Value Reference Range Interpretation Comments POC-GLUCOSE METER 161 mg/dL 70-110 H TESTED AT [place] [address] ([facility]) (test code = [facility] 1538) [address] POCT-GLUCOSE [id number] 13:45:00 Test Item Value Reference Range Interpretation Comments POC-GLUCOSE METER 164 mg/dL 70-110 H TESTED AT [place] [address] ([facility]) (test code = [facility] 1538) [address] [id number] 10:16:00 Test Item Value Reference Range Interpretation Comments POTASSIUM (BEAKER) 5.5 meq/L 3.5-5.1 H Specimen slightly (test code = 379) hemolyzed CALCIUM, [id number] 07:07:00 Test Item Value Reference Range Interpretation Comments CALCIUM IONIZED (BEAKER) (test 1.05 mmol/L 1.12-1.27 L code = 698) PH, BLOOD ([facility]) (test code = 7.31 1810) [id number] 06:19:00 Test Item Value Reference Range Interpretation Comments POTASSIUM (BEAKER) (test code = 5.3 meq/L 3.5-5.1 H 379) POCT-GLUCOSE [id number] 06:17:00 Test Item Value Reference Range Interpretation Comments POC-GLUCOSE METER 177 mg/dL 70-110 H TESTED AT [place] [address] ([facility]) (test code = [facility] 1538) [address] [id number] 05:44:00 Test Item Value Reference Range Interpretation Comments PHOSPHORUS (BEAKER) (test code = 4.0 mg/dL 2.3-4.7 604) [id number] 05:44:00 Test Item Value Reference Range Interpretation Comments MAGNESIUM (BEAKER) (test code = 1.6 mg/dL 1.6-2.6 627) COMPREHENSIVE METABOLIC [id number] 05:44:00 Test Item Value Reference Range Interpretation Comments TOTAL PROTEIN 7.3 gm/dL 6.0-8.3 (BEAKER) (test code = 770) ALBUMIN (BEAKER) 3.8 g/dL 3.5-5.0 (test code = 1145) ALKALINE PHOSPHATASE 91 U/L 40-150 (BEAKER) (test code = 346) BILIRUBIN TOTAL 0.5 mg/dL 0.2-1.2 (BEAKER) (test code = 377) SODIUM (BEAKER) (test 139 meq/L 136-145 code = 381) POTASSIUM (BEAKER) 5.4 meq/L 3.5-5.1 H (test code = 379) CHLORIDE (BEAKER) 110 meq/L 98-107 H (test code = 382) CO2 (BEAKER) (test 20 meq/L 22-29 L code = 355) BLOOD UREA NITROGEN 45 mg/dL 7-21 H (BEAKER) (test code = 354) CREATININE (BEAKER) 2.45 mg/dL 0.57-1.25 H (test code = 358) GLUCOSE RANDOM 177 mg/dL 70-105 H (BEAKER) (test code = 652) CALCIUM (BEAKER) 9.5 mg/dL 8.4-10.2 (test code = 697) AST (SGOT) (BEAKER) 11 U/L 5-34 (test code = 353) ALT (SGPT) (BEAKER) 9 U/L 6-55 (test code = 347) EGFR (BEAKER) (test 26 mL/min/1.73 ESTIMA ESTRELLA GFR IS code = 1092) sq m NOT ACCURATE CREATININE CLEARANCE IN PREDICTING GLOMERULAR FILTRATION RATE . ESTIMATED GFR I S NOT APPLICABLE FOR DIALYSIS PATIEN TS. B-TYPE NATRIURETIC FACTOR (BNP)2019-01-09 05:34:00 Test Item Value Reference Range Interpretation Comments B-TYPE NATRIURETIC PEPTIDE (BEAKER) 248 pg/mL 0-100 H (test code = 700) CBC W/PLT COUNT & AUTO [id number] 05:14:00 Test Item Value Reference Range Interpretation Comments WHITE BLOOD CELL COUNT (BEAKER) 9.4 K/ L 3.5-10.5 (test code = 775) RED BLOOD CELL COUNT (BEAKER) 3.79 M/ L 4.63-6.08 L (test code = 761) HEMOGLOBIN (BEAKER) (test code = 9.8 GM/DL 13.7-17.5 L 410) HEMATOCRIT (BEAKER) (test code = 32.0 % 40.1-51.0 L 411) MEAN CORPUSCULAR VOLUME (BEAKER) 84.4 fL 79.0-92.2 (test code = 753) MEAN CORPUSCULAR HEMOGLOBIN 25.9 pg 25.7-32.2 (BEAKER) (test code = 751) MEAN CORPUSCULAR HEMOGLOBIN CONC 30.6 GM/DL 32.3-36.5 L (BEAKER) (test code = 752) RED CELL DISTRIBUTION WIDTH 17.5 % 11.6-14.4 H (BEAKER) (test code = 412) PLATELET COUNT (BEAKER) (test 232 K/CU MM 150-450 code = 756) MEAN PLATELET VOLUME (BEAKER) 9.3 fL 9.4-12.4 L (test code = 754) NUCLEATED RED BLOOD CELLS 0 /100 WBC 0-0 (BEAKER) (test code = 413) NEUTROPHILS RELATIVE PERCENT 78 % (BEAKER) (test code = 429) LYMPHOCYTES RELATIVE PERCENT 13 % (BEAKER) (test code = 430) MONOCYTES RELATIVE PERCENT 4 % (BEAKER) (test code = 431) EOSINOPHILS RELATIVE PERCENT 4 % (BEAKER) (test code = 432) BASOPHILS RELATIVE PERCENT 0 % (BEAKER) (test code = 437) NEUTROPHILS ABSOLUTE COUNT 7.31 K/ L 1.78-5.38 H (BEAKER) (test code = 670) LYMPHOCYTES ABSOLUTE COUNT 1.24 K/ L 1.32-3.57 L (BEAKER) (test code = 414) MONOCYTES ABSOLUTE COUNT (BEAKER) 0.37 K/ L 0.30-0.82 (test code = 415) EOSINOPHILS ABSOLUTE COUNT 0.39 K/ L 0.04-0.54 (BEAKER) (test code = 416) BASOPHILS ABSOLUTE COUNT (BEAKER) 0.04 K/ L 0.01-0.08 (test code = 417) IMMATURE GRANULOCYTES-RELATIVE 0 % 0-1 PERCENT (BEAKER) (test code = 2801) URINALYSIS W/ [id number] 00:47:00 Test Item Value Reference Range Interpretation Comments COLOR (BEAKER) (test code = Yellow 470) CLARITY (BEAKER) (test code = Cloudy 469) SPECIFIC GRAVITY UA (BEAKER) 1.014 1.001-1.035 (test code = 468) PH UA (BEAKER) (test code = 7.5 5.0-8.0 467) PROTEIN UA (BEAKER) (test code 50 mg/dL Negative A = 464) GLUCOSE UA (BEAKER) (test code Negative Negative = 365) KETONES UA (BEAKER) (test code Negative Negative = 371) BILIRUBIN UA (BEAKER) (test Negative Negative code = 462) BLOOD UA (BEAKER) (test code = Small Negative A 461) NITRITE UA (BEAKER) (test code Negative Negative = 465) LEUKOCYTE ESTERASE UA (BEAKER) Large Negative A (test code = 466) UROBILINOGEN UA (BEAKER) (test 0.2 mg/dL 0.2-1.0 code = 463) RBC UA (BEAKER) (test code = 71 /HPF 519) WBC UA (BEAKER) (test code = 1129 /HPF 520) BACTERIA (BEAKER) (test code = Many 517) MUCUS (BEAKER) (test code = Rare 1574) SQUAMOUS EPITHELIAL (BEAKER) 1 /HPF (test code = 516) HYALINE CASTS (BEAKER) (test 19 /LPF code = 514) SOURCE(BEAKER) (test code = Urine, Voided 6777) [id number] 00:34:00 Test Item Value Reference Range Interpretation Comments POTASSIUM (BEAKER) (test code = 5.4 meq/L 3.5-5.1 H 379) RAD, CHEST, 1 VIEW, NON [id number] 23:33:00Reason for exam:->edemaShould this be performed at [...] MDReport Verified Date/Time: 01/08/2019 23:33:47 Reading Location: [address] Consult Reading Room POCT-GLUCOSE [id number] 21:58:00 Test Item Value Reference Range Interpretation Comments POC-GLUCOSE METER 186 mg/dL 70-[address] [facility] 6720 (BEAKER) (test code = UMESH Rick [place] 1538) [address] EOSINOPHIL SMEAR, [id number] 20:29:00 Test Item Value Reference Range Interpretation Comments EOSINOPHIL SMEAR, URINE (BEAKER) No EOS seen No EOS seen (test code = 1851) BASIC METABOLIC [id number] 20:08:00 Test Item Value Reference Range Interpretation Comments SODIUM (BEAKER) 134 meq/L 136-145 L (test code = 381) POTASSIUM (BEAKER) 5.5 meq/L 3.5-5.1 H (test code = 379) CHLORIDE (BEAKER) 108 meq/L 98-107 H (test code = 382) CO2 (BEAKER) (test 19 meq/L 22-29 L code = 355) BLOOD UREA NITROGEN 47 mg/dL 7-21 H (BEAKER) (test code = 354) CREATININE (BEAKER) 2.51 mg/dL 0.57-1.25 H (test code = 358) GLUCOSE RANDOM 185 mg/dL 70-105 H (BEAKER) (test code = 652) CALCIUM (BEAKER) 9.2 mg/dL 8.4-10.2 (test code = 697) EGFR (BEAKER) (test 25 mL/min/1.73 ESTIMA ESTRELLA GFR IS code = 1092) sq m NOT ACCURATE CREATININE CLEARANCE IN PREDICTING GLOMERULAR FILTRATION RATE . ESTIMATED GFR I S NOT APPLICABLE FOR DIALYSIS PATIEN TS. Thank you for drawing the blood. He requires strict monitoring of K in preparation for OR tomorrow.HEMOGLOBIN AND [id number] 19:51:00 Test Item Value Reference Range Interpretation Comments HEMOGLOBIN (BEAKER) (test code = 8.0 GM/DL 13.7-17.5 L 410) HEMATOCRIT (BEAKER) (test code = 26.2 % 40.1-51.0 L 411) CREATININE, RANDOM [id number] 19:03:00 Test Item Value Reference Range Interpretation Comments CREATININE URINE (BEAKER) (test 89.1 mg/dL code = 375) Reference Range: No NormalsPROTEIN, RANDOM [id number] 19:03:00 Test Item Value Reference Range Interpretation Comments PROTEIN, URINE (BEAKER) (test code = 19 mg/dL 0-14 H 1569) SODIUM, RANDOM [id number] 19:03:00 Test Item Value Reference Range Interpretation Comments SODIUM URINE (BEAKER) (test code = 90 meq/L 243) Reference Range: No NormalsPOCT-GLUCOSE [id number] 16:48:00 Test Item Value Reference Range Interpretation Comments POC-GLUCOSE METER 259 mg/dL 70-[address] [facility] [address] (BEAKER) (test code = UMESH Rick [facility] 1538) [address] B-TYPE NATRIURETIC FACTOR (BNP)2019-01-08 16:33:00 Test Item Value Reference Range Interpretation Comments B-TYPE NATRIURETIC PEPTIDE (BEAKER) 219 pg/mL 0-100 H (test code = 700) BASIC METABOLIC [id number] 16:32:00 Test Item Value Reference Range Interpretation Comments SODIUM (BEAKER) 134 meq/L 136-145 L (test code = 381) POTASSIUM (BEAKER) 5.7 meq/L 3.5-5.1 H (test code = 379) CHLORIDE (BEAKER) 108 meq/L 98-107 H (test code = 382) CO2 (BEAKER) (test 19 meq/L 22-29 L code = 355) BLOOD UREA NITROGEN 49 mg/dL 7-21 H (BEAKER) (test code = 354) CREATININE (BEAKER) 2.68 mg/dL 0.57-1.25 H (test code = 358) GLUCOSE RANDOM 217 mg/dL 70-105 H (BEAKER) (test code = 652) CALCIUM (BEAKER) 9.3 mg/dL 8.4-10.2 (test code = 697) EGFR (BEAKER) (test 23 mL/min/1.73 ESTIMA ESTRELLA GFR IS code = 1092) sq m NOT ACCURATE CREATININE CLEARANCE IN PREDICTING GLOMERULAR FILTRATION RATE . ESTIMATED GFR I S NOT APPLICABLE FOR DIALYSIS PATIEN TS. URIC [id number] 16:30:00 Test Item Value Reference Range Interpretation Comments URIC ACID (BEAKER) (test code = 8.3 mg/dL 2.6-7.2 H 773) POCT-GLUCOSE [id number] 10:00:00 Test Item Value Reference Range Interpretation Comments POC-GLUCOSE METER 206 mg/dL 70-[address] [facility] [address] (BEAKER) (test code = UMESH [place] 1538) [address] BASIC METABOLIC [id number] 09:58:00 Test Item Value Reference Range Interpretation Comments SODIUM (BEAKER) 133 meq/L 136-145 L (test code = 381) POTASSIUM (BEAKER) 6.3 meq/L 3.5-5.1 HH (test code = 379) CHLORIDE (BEAKER) 107 meq/L 98-107 (test code = 382) CO2 (BEAKER) (test 20 meq/L 22-29 L code = 355) BLOOD UREA NITROGEN 49 mg/dL 7-21 H (BEAKER) (test code = 354) CREATININE (BEAKER) 2.70 mg/dL 0.57-1.25 H (test code = 358) GLUCOSE RANDOM 171 mg/dL 70-105 H (BEAKER) (test code = 652) CALCIUM (BEAKER) 9.1 mg/dL 8.4-10.2 (test code = 697) EGFR (BEAKER) (test 23 mL/min/1.73 ESTIMA ESTERLLA GFR IS code = 1092) sq m NOT ACCURATE CREATININE CLEARANCE IN PREDICTING GLOMERULAR FILTRATION RATE . ESTIMATED GFR I S NOT APPLICABLE FOR DIALYSIS PATIEN TS. [id number] 09:33:00 Test Item Value Reference Range Interpretation Comments PARTIAL THROMBOPLASTIN TIME 44.8 seconds 22.5-36.0 H (BEAKER) (test code = 760) PROTHROMBIN [id number] 09:32:00 Test Item Value Reference Range Interpretation Comments PROTIME (BEAKER) (test code = 17.4 seconds 11.7-14.7 H 759) INR (BEAKER) (test code = 370) 1.4 <=5.9 RECOMMENDED COUMADIN/WARFARIN INR THERAPY RANGESSTANDARD DOSE: 2.0 - 3.0 Includes: PROPHYLAXIS forvenous thrombosis, systemic embolization; TREATMENT for venous thrombosis and/or pulmonary embolus.HIGH RISK: Target INR is 2.5-3.5 for patients with mechanical heart valves.HEMOGLOBIN AND [id number] 09:24:00 Test Item Value Reference Range Interpretation Comments HEMOGLOBIN (BEAKER) (test code = 8.0 GM/DL 13.7-17.5 L 410) HEMATOCRIT (BEAKER) (test code = 27.2 % 40.1-51.0 L 411) [id number] 11:10:00Medical Cytology Report Case: [id number] Authorizing Provider: Gianna Peter MD Collected: 11/28/2018 9628 Ordering Location: [address] Received: 11/28/2018 9060 Service Pathologist: Chelsea Curran MD Specimen: Kidney, Right RIGHT KIDNEY MASS, FNA AND CORE BIOPSY BY RADIOLOGIST (FILOMENA) (DIRECT SMEARS AND CELL BLOCK OF ASPIRATE): - FEW ATYPICAL CELLS, COMPATIBLE WITH RENAL CELL CARCINOMA (see comment) Signing Pathologist Direct Phone Line: [phone] signed by Chelsea Curran MD on 12/05/2018 at 11:10 AMThe smears show few scattered atypical cells with [...] cell carcinoma. Clinical and radiologic correlation is recommended.82130, 07518, 25804 x 2; 59230; 63066 6 cm right kidney massRIGHT KIDNEYMASS FNA AND CORE BIOPSYPrepared 6 direct smear slides and cell block(A3) using collodion bag from material collected in RPMI Core biopsy collected in formalin contained two white/red fragments measuring 0.8 cm each; one 0.4 cm red fragment; one mostly white 0.9 cm fragment, and three red ragged fragments measuring 0.2 cm each, submitted entirely in A2.Collected: [id number]: [id number] FEW CELLS SUSPICIOUS FOR RENAL CELL CARCINOMA (5:17PM, 11/28/2018, )The interpretation of this case included the use of immunohistochemistry or special stains. PAX-8 and CAM5.2Immunohistochemistry technical testing was performed at [facility], Pathology Laboratory where it was [...] qualified to perform high complexity clinical laboratory testing.[facility], Department of Pathology, [address] [place] [address], [facility], [address] [place] [address], [facility], [facility], [address] [place] [address], IQCD-GLUCOSE [id number] 17:10:00 Test Item Value Reference Range Interpretation Comments POC-GLUCOSE METER 153 mg/dL 70-110 H TESTED AT [place] [address] ([facility]) (test code = [facility] Prabhjot [facility] 1538) [address] POCT-GLUCOSE [id number] 11:57:00 Test Item Value Reference Range Interpretation Comments POC-GLUCOSE METER 128 mg/dL 70-110 H TESTED AT [place] [address] ([facility]) (test code = [facility] Prabhjot [facility] 1538) [address] POCT-GLUCOSE [id number] 07:52:00 Test Item Value Reference Range Interpretation Comments POC-GLUCOSE METER 121 mg/dL 70-110 H TESTED AT [place] [address] ([facility]) (test code = [facility] Prabhjot [facility] 1538) [address] POCT-GLUCOSE [id number] 20:55:00 Test Item Value Reference Range Interpretation Comments POC-GLUCOSE METER 134 mg/dL 70-110 H TESTED AT [place] [address] [facility] (test code = UMESH Rick [facility] 1538) [address] POCT-GLUCOSE [id number] 18:19:00 Test Item Value Reference Range Interpretation Comments POC-GLUCOSE METER 137 mg/dL 70-110 H TESTED AT [place] [address] (BEAKER) (test code = UMESH Rick [facility] 1538) [address] POCT-GLUCOSE [id number] 11:33:00 Test Item Value Reference Range Interpretation Comments POC-GLUCOSE METER 188 mg/dL 70-110 H TESTED AT [place] [address] ([facility] (test code = UMESH Rick [facility] 1538) [address] POCT-GLUCOSE [id number] 07:44:00 Test Item Value Reference Range Interpretation Comments POC-GLUCOSE METER 143 mg/dL 70-110 H TESTED AT [place] [address] ([facility] (test code = UMESH Rick [facility] 1538) [address] POCT-GLUCOSE [id number] 21:19:00 Test Item Value Reference Range Interpretation Comments POC-GLUCOSE METER 156 mg/dL 70-110 H TESTED AT [place] [address] ([facility] (test code = UMESH Rick [facility] 1538) [address]996 POCT-GLUCOSE [id number] 19:08:00 Test Item Value Reference Range Interpretation Comments POC-GLUCOSE METER 175 mg/dL 70-110 H TESTED AT [place] [address] ([facility] (test code = UMESH Rick [facility] 1538) [address] [id number] 15:34:00 Test Item Value Reference Range Interpretation Comments PHOSPHORUS (BEAKER) (test code = 2.3 mg/dL 2.3-4.7 604) [id number] 15:34:00 Test Item Value Reference Range Interpretation Comments MAGNESIUM (BEAKER) (test code = 1.2 mg/dL 1.6-2.6 L 627) BASIC METABOLIC [id number] 15:34:00 Test Item Value Reference Range Interpretation Comments SODIUM (BEAKER) 139 meq/L 136-145 (test code = 381) POTASSIUM (BEAKER) 3.8 meq/L 3.5-5.1 (test code = 379) CHLORIDE (BEAKER) 110 meq/L 98-107 H (test code = 382) CO2 (BEAKER) (test 20 meq/L 22-29 L code = 355) BLOOD UREA NITROGEN 9 mg/dL 7-21 (BEAKER) (test code = 354) CREATININE (BEAKER) 1.21 mg/dL 0.57-1.25 (test code = 358) GLUCOSE RANDOM 149 mg/dL 70-105 H (BEAKER) (test code = 652) CALCIUM (BEAKER) 8.8 mg/dL 8.4-10.2 (test code = 697) EGFR (BEAKER) (test 58 mL/min/1.73 ESTIMA ESTRELLA GFR IS code = 1092) sq m NOT ACCURATE CREATININE CLEARANCE IN PREDICTING GLOMERULAR FILTRATION RATE . ESTIMATED GFR I S NOT APPLICABLE FOR DIALYSIS PATIEN TS. HEMOGLOBIN AND [id number] 15:16:00 Test Item Value Reference Range Interpretation Comments HEMOGLOBIN (BEAKER) (test code = 8.9 GM/DL 13.7-17.5 L 410) HEMATOCRIT (BEAKER) (test code = 28.9 % 40.1-51.0 L 411) POCT-GLUCOSE [id number] 12:46:00 Test Item Value Reference Range Interpretation Comments POC-GLUCOSE METER 195 mg/dL 70-110 H TESTED AT [place] [address] ([facility]) (test [facility] = [facility] [place] 1538) [address] POCT-GLUCOSE [id number] 08:26:00 Test Item Value Reference Range Interpretation Comments POC-GLUCOSE METER 113 mg/dL 70-110 H TESTED AT [place] [address] ([facility]) (test code = [facility] Prabhjot [place] 1538) [address] HEMOGLOBIN AND [id number] 23:04:00 Test Item Value Reference Range Interpretation Comments HEMOGLOBIN (BEAKER) (test code = 9.2 GM/DL 13.7-17.5 L 410) HEMATOCRIT (BEAKER) (test code = 30.2 % 40.1-51.0 L 411) POCT-GLUCOSE [id number] 21:02:00 Test Item Value Reference Range Interpretation Comments POC-GLUCOSE METER 106 mg/dL 70-110 TESTED AT [place] [address] ([facility]) (test code = [facility] [place] 1538) [address] POCT-GLUCOSE [id number] 18:35:00 Test Item Value Reference Range Interpretation Comments POC-GLUCOSE METER 128 mg/dL 70-[address] [facility] 6720 (MATTHEW) (test code = UMESH [place] Jeffrey8) [address] U/S, BIOPSY, RENAL (KIDNEY)2018-11-28 17:54:00Reason for exam:->R sided kidney mass, biopsy neededFINAL REPORT Ultrasound guided fine-needle aspiration and core biopsy dated 11/28/2018 Procedure: Fine-needle aspiration and core biopsy of the right renal mass Pre-procedure diagnosis: Right renal mass Post-procedure diagnosis: Right renal mass Radiologist: Lurdes Fernandes MD Cloud Services Architect: None Sedation: Moderate sedation was administered. 1.5 mg of Versed and 75 mcg fentanyl IV was used for moderate sedation monitored under my direction. Total intraservice time of the sedation was 50 minutes. The patient's vital signs were monitored throughout the procedure and [facility] by the nurse. Anesthesia: 1% [...] biopsy of the right renalmass. Signed: Lurdes Fernandeseport Verified Date/Time: 11/28/2018 17:54:55 Reading Location: [address] Ultrasound Reading Room U/S, ASPIRATION/[id number] 17:54:00Reason for exam:->R sided kidney mass, biopsy neededFINAL REPORT Ultrasound guided fine-needle aspiration and core biopsy dated 11/28/2018 Procedure: Fine-needle aspiration and core biopsy of the right renal mass Pre- procedure diagnosis: Right renal mass Post-procedure diagnosis: Right renal mass Radiologist: Lurdes Fernandes MD Cloud Services Architect: None Sedation: Moderate sedation was administered. 1.5 [...] biopsy of the right renalmass. Signed: Lurdes Fernandeseport Verified Date/Time: 11/28/2018 17:54:55 Reading Location: [facility] [id number] Ultrasound Reading Room POCT-GLUCOSE [id number] 12:01:00 Test Item Value Reference Range Interpretation Comments POC-GLUCOSE METER 133 mg/dL 70-110 H TESTED AT [place] [address] ([facility]) (test code = [facility] 1538) [address] POCT-GLUCOSE [id number] 08:12:00 Test Item Value Reference Range Interpretation Comments POC-GLUCOSE METER 139 mg/dL 70-110 H TESTED AT [place] [address] ([facility]) (test code = [facility] 1538) [address] CALCIUM, [id number] 07:20:00 Test Item Value Reference Range Interpretation Comments CALCIUM IONIZED (BEAKER) (test 1.10 mmol/L 1.12-1.27 L code = 698) PH, BLOOD ([facility] (test code = 7.40 1810) BLOOD [id number] 07:01:00 Test Item Value Reference Range Interpretation Comments CULTURE (BEAKER) (test No growth in 5 days code = 1095) [id number] 06:10:00 Test Item Value Reference Range Interpretation Comments PHOSPHORUS (BEAKER) (test code = 2.0 mg/dL 2.3-4.7 L 604) [id number] 06:10:00 Test Item Value Reference Range Interpretation Comments MAGNESIUM (BEAKER) (test code = 1.6 mg/dL 1.6-2.6 627) BASIC METABOLIC [id number] 06:10:00 Test Item Value Reference Range Interpretation Comments SODIUM (BEAKER) 140 meq/L 136-145 (test code = 381) POTASSIUM (BEAKER) 3.8 meq/L 3.5-5.1 (test code = 379) CHLORIDE (BEAKER) 112 meq/L 98-107 H (test code = 382) CO2 (BEAKER) (test 19 meq/L 22-29 L code = 355) BLOOD UREA NITROGEN 9 mg/dL 7-21 (BEAKER) (test code = 354) CREATININE (BEAKER) 1.08 mg/dL 0.57-1.25 (test code = 358) GLUCOSE RANDOM 120 mg/dL 70-105 H (BEAKER) (test code = 652) CALCIUM (BEAKER) 8.5 mg/dL 8.4-10.2 (test code = 697) EGFR (BEAKER) (test 67 mL/min/1.73 ESTIMA ESTRELLA GFR IS code = 1092) sq m NOT ACCURATE CREATININE CLEARANCE IN PREDICTING GLOMERULAR FILTRATION RATE . ESTIMATED GFR I S NOT APPLICABLE FOR DIALYSIS PATIEN TS. CBC W/PLT COUNT & AUTO [id number] 05:33:00 Test Item Value Reference Range Interpretation Comments WHITE BLOOD CELL COUNT (BEAKER) 8.2 K/ L 3.5-10.5 (test code = 775) RED BLOOD CELL COUNT (BEAKER) 3.68 M/ L 4.63-6.08 L (test code = 761) HEMOGLOBIN (BEAKER) (test code = 9.4 GM/DL 13.7-17.5 L 410) HEMATOCRIT (BEAKER) (test code = 31.1 % 40.1-51.0 L 411) MEAN CORPUSCULAR VOLUME (BEAKER) 84.5 fL 79.0-92.2 (test code = 753) MEAN CORPUSCULAR HEMOGLOBIN 25.5 pg 25.7-32.2 L (BEAKER) (test code = 751) MEAN CORPUSCULAR HEMOGLOBIN CONC 30.2 GM/DL 32.3-36.5 L (BEAKER) (test code = 752) RED CELL DISTRIBUTION WIDTH 22.4 % 11.6-14.4 H (BEAKER) (test code = 412) PLATELET COUNT (BEAKER) (test 274 K/CU MM 150-450 code = 756) MEAN PLATELET VOLUME (BEAKER) 9.9 fL 9.4-12.4 (test code = 754) NUCLEATED RED BLOOD CELLS 0 /100 WBC 0-0 (BEAKER) (test code = 413) NEUTROPHILS RELATIVE PERCENT 59 % (BEAKER) (test code = 429) LYMPHOCYTES RELATIVE PERCENT 28 % (BEAKER) (test code = 430) MONOCYTES RELATIVE PERCENT 6 % (BEAKER) (test code = 431) EOSINOPHILS RELATIVE PERCENT 5 % (BEAKER) (test code = 432) BASOPHILS RELATIVE PERCENT 1 % (BEAKER) (test code = 437) NEUTROPHILS ABSOLUTE COUNT 4.80 K/ L 1.78-5.38 (BEAKER) (test code = 670) LYMPHOCYTES ABSOLUTE COUNT 2.30 K/ L 1.32-3.57 (BEAKER) (test code = 414) MONOCYTES ABSOLUTE COUNT (BEAKER) 0.52 K/ L 0.30-0.82 (test code = 415) EOSINOPHILS ABSOLUTE COUNT 0.39 K/ L 0.04-0.54 (BEAKER) (test code = 416) BASOPHILS ABSOLUTE COUNT (BEAKER) 0.05 K/ L 0.01-0.08 (test code = 417) IMMATURE GRANULOCYTES-RELATIVE 1 % 0-1 PERCENT (BEAKER) (test code = 2801) POCT-GLUCOSE [id number] 22:53:00 Test Item Value Reference Range Interpretation Comments POC-GLUCOSE METER 105 mg/dL 70-110 TESTED AT [place] [address] ([facility]) (test code = UMESH [place] 1538) [address] BLOOD [id number] 19:01:00 Test Item Value Reference Range Interpretation Comments CULTURE ([facility]) (test No growth in 5 days code = 1095) POCT-GLUCOSE [id number] 16:46:00 Test Item Value Reference Range Interpretation Comments POC-GLUCOSE METER 120 mg/dL 70-110 H TESTED AT [place] [address] ([facility]) (test code = UMESH [place] 1538) [address] POCT-GLUCOSE [id number] 12:49:00 Test Item Value Reference Range Interpretation Comments POC-GLUCOSE METER 140 mg/dL 70-110 H TESTED AT [facility] 6720 (BEAKER) (test code = UMESH Rick [place] 1538) [address] POCT-GLUCOSE [id number] 08:33:00 Test Item Value Reference Range Interpretation Comments POC-GLUCOSE METER 138 mg/dL 70-[address] [facility] 6720 (BEAKER) (test code = UMESH Rick [place] 1538) [address] CALCIUM, [id number] 07:28:00 Test Item Value Reference Range Interpretation Comments CALCIUM IONIZED (BEAKER) (test 1.10 mmol/L 1.12-1.27 L code = 698) PH, BLOOD (BEAKER) (test code = 7.39 1810) [id number] 06:54:00 Test Item Value Reference Range Interpretation Comments PHOSPHORUS (BEAKER) (test code = 2.3 mg/dL 2.3-4.7 604) [id number] 06:54:00 Test Item Value Reference Range Interpretation Comments MAGNESIUM (BEAKER) (test code = 1.7 mg/dL 1.6-2.6 627) BASIC METABOLIC [id number] 06:54:00 Test Item Value Reference Range Interpretation Comments SODIUM (BEAKER) 140 meq/L 136-145 (test code = 381) POTASSIUM (BEAKER) 3.7 meq/L 3.5-5.1 (test code = 379) CHLORIDE (BEAKER) 112 meq/L 98-107 H (test code = 382) CO2 (BEAKER) (test 19 meq/L 22-29 L code = 355) BLOOD UREA NITROGEN 10 mg/dL 7-21 (BEAKER) (test code = 354) CREATININE (BEAKER) 1.05 mg/dL 0.57-1.25 (test code = 358) GLUCOSE RANDOM 112 mg/dL 70-105 H (BEAKER) (test code = 652) CALCIUM (BEAKER) 8.6 mg/dL 8.4-10.2 (test code = 697) EGFR (BEAKER) (test 69 mL/min/1.73 ESTIMA ESTRELLA GFR IS code = 1092) sq m NOT ACCURATE CREATININE CLEARANCE IN PREDICTING GLOMERULAR FILTRATION RATE . ESTIMATED GFR I S NOT APPLICABLE FOR DIALYSIS PATIEN TS. CBC W/PLT COUNT & AUTO [id number] 06:50:00 Test Item Value Reference Range Interpretation Comments WHITE BLOOD CELL COUNT (BEAKER) 8.4 K/ L 3.5-10.5 (test code = 775) RED BLOOD CELL COUNT (BEAKER) 3.42 M/ L 4.63-6.08 L (test code = 761) HEMOGLOBIN (BEAKER) (test code = 8.7 GM/DL 13.7-17.5 L 410) HEMATOCRIT (BEAKER) (test code = 28.7 % 40.1-51.0 L 411) MEAN CORPUSCULAR VOLUME (BEAKER) 83.9 fL 79.0-92.2 (test code = 753) MEAN CORPUSCULAR HEMOGLOBIN 25.4 pg 25.7-32.2 L (BEAKER) (test code = 751) MEAN CORPUSCULAR HEMOGLOBIN CONC 30.3 GM/DL 32.3-36.5 L (BEAKER) (test code = 752) RED CELL DISTRIBUTION WIDTH 21.6 % 11.6-14.4 H (BEAKER) (test code = 412) PLATELET COUNT (BEAKER) (test 234 K/CU MM 150-450 code = 756) MEAN PLATELET VOLUME (BEAKER) 10.1 fL 9.4-12.4 (test code = 754) NUCLEATED RED BLOOD CELLS 0 /100 WBC 0-0 (BEAKER) (test code = 413) NEUTROPHILS RELATIVE PERCENT 62 % (BEAKER) (test code = 429) LYMPHOCYTES RELATIVE PERCENT 25 % (BEAKER) (test code = 430) MONOCYTES RELATIVE PERCENT 6 % (BEAKER) (test code = 431) EOSINOPHILS RELATIVE PERCENT 6 % (BEAKER) (test code = 432) BASOPHILS RELATIVE PERCENT 1 % (BEAKER) (test code = 437) NEUTROPHILS ABSOLUTE COUNT 5.21 K/ L 1.78-5.38 (BEAKER) (test code = 670) LYMPHOCYTES ABSOLUTE COUNT 2.11 K/ L 1.32-3.57 (BEAKER) (test code = 414) MONOCYTES ABSOLUTE COUNT (BEAKER) 0.49 K/ L 0.30-0.82 (test code = 415) EOSINOPHILS ABSOLUTE COUNT 0.46 K/ L 0.04-0.54 (BEAKER) (test code = 416) BASOPHILS ABSOLUTE COUNT (BEAKER) 0.06 K/ L 0.01-0.08 (test code = 417) IMMATURE GRANULOCYTES-RELATIVE 1 % 0-1 PERCENT (BEAKER) (test code = 2801) POCT-GLUCOSE [id number] 21:25:00 Test Item Value Reference Range Interpretation Comments POC-GLUCOSE METER 118 mg/dL 70-[address] [facility] 6720 (BEAKER) (test code = UMESH Rick [facility] 1538) [address] POCT-GLUCOSE [id number] 17:54:00 Test Item Value Reference Range Interpretation Comments POC-GLUCOSE METER 138 mg/dL 70-[address] [facility] 6720 (BEAKER) (test code = HANSOH Prabhjot [facility] 1538) [address] [id number] 11:52:00 Test Item Value Reference Range Interpretation Comments PHOSPHORUS (BEAKER) (test code = 1.5 mg/dL 2.3-4.7 LL 604) [id number] 11:42:00 Test Item Value Reference Range Interpretation Comments MAGNESIUM (BEAKER) (test code = 1.7 mg/dL 1.6-2.6 627) BASIC METABOLIC [id number] 11:42:00 Test Item Value Reference Range Interpretation Comments SODIUM (BEAKER) 141 meq/L 136-145 (test code = 381) POTASSIUM (BEAKER) 3.6 meq/L 3.5-5.1 (test code = 379) CHLORIDE (BEAKER) 114 meq/L 98-107 H (test code = 382) CO2 (BEAKER) (test 20 meq/L 22-29 L code = 355) BLOOD UREA NITROGEN 13 mg/dL 7-21 (BEAKER) (test code = 354) CREATININE (BEAKER) 1.27 mg/dL 0.57-1.25 H (test code = 358) GLUCOSE RANDOM 135 mg/dL 70-105 H (BEAKER) (test code = 652) CALCIUM (BEAKER) 8.7 mg/dL 8.4-10.2 (test code = 697) EGFR (BEAKER) (test 55 mL/min/1.73 ESTIMA ESTRELLA GFR IS code = 1092) sq m NOT ACCURATE CREATININE CLEARANCE IN PREDICTING GLOMERULAR FILTRATION RATE . ESTIMATED GFR I S NOT APPLICABLE FOR DIALYSIS PATIEN TS. [id number] 11:41:00 Test Item Value Reference Range Interpretation Comments PROTIME (BEAKER) (test code = 16.7 seconds 11.7-14.7 H 759) INR (BEAKER) (test code = 370) 1.3 <=5.9 PARTIAL THROMBOPLASTIN TIME 48.5 seconds 22.5-36.0 H (BEAKER) (test code = 760) RECOMMENDED COUMADIN/WARFARIN INR THERAPY RANGESSTANDARD DOSE: 2.0 - 3.0 Includes: PROPHYLAXIS forvenous thrombosis, systemic embolization; TREATMENT for venous thrombosis and/or pulmonary embolus.HIGH RISK: Target INR is 2.5-3.5 for patients with mechanical heart valves.MRSA [id number] 11:31:00 Test Item Value Reference Range Interpretation Comments CULTURE (BEAKER) (test code No MRSA isolated = 1095) CBC (HEMOGRAM ONLY)2018-11-26 11:28:00 Test Item Value Reference Range Interpretation Comments WHITE BLOOD CELL COUNT (BEAKER) 7.1 K/ L 3.5-10.5 (test code = 775) RED BLOOD CELL COUNT (BEAKER) 3.36 M/ L 4.63-6.08 L (test code = 761) HEMOGLOBIN (BEAKER) (test code = 8.5 GM/DL 13.7-17.5 L 410) HEMATOCRIT (BEAKER) (test code = 28.4 % 40.1-51.0 L 411) MEAN CORPUSCULAR VOLUME (BEAKER) 84.5 fL 79.0-92.2 (test code = 753) MEAN CORPUSCULAR HEMOGLOBIN 25.3 pg 25.7-32.2 L (BEAKER) (test code = 751) MEAN CORPUSCULAR HEMOGLOBIN CONC 29.9 GM/DL 32.3-36.5 L (BEAKER) (test code = 752) RED CELL DISTRIBUTION WIDTH 21.6 % 11.6-14.4 H (BEAKER) (test code = 412) PLATELET COUNT (BEAKER) (test 214 K/CU MM 150-450 code = 756) MEAN PLATELET VOLUME (BEAKER) 9.6 fL 9.4-12.4 (test code = 754) NUCLEATED RED BLOOD CELLS 0 /100 WBC 0-0 (BEAKER) (test code = 413) POCT-GLUCOSE [id number] 07:38:00 Test Item Value Reference Range Interpretation Comments POC-GLUCOSE METER 174 mg/dL 70-110 H TESTED AT [place] [address] ([facility]) (test code = UMESH Rick [place] 1538) [address] POCT-GLUCOSE [id number] 20:27:00 Test Item Value Reference Range Interpretation Comments POC-GLUCOSE METER 199 mg/dL 70-110 H TESTED AT [place] [address] [facility] (test code = UMESH [place] 1538) [address] POCT-GLUCOSE [id number] 17:55:00 Test Item Value Reference Range Interpretation Comments POC-GLUCOSE METER 196 mg/dL 70-110 H TESTED AT [place] [address] ([facility]) (test code = UMESH Rick [place] 1538) [address] POCT-GLUCOSE [id number] 11:56:00 Test Item Value Reference Range Interpretation Comments POC-GLUCOSE METER 209 mg/dL 70-110 H TESTED AT [place] [address] ([facility]) (test code = UMESH Rick [facility] 1538) [address] KIDNEY IMAGING, SINGLE, FLOW/[id number] 11:35:00FINAL REPORT PROCEDURE: Functional RENAL SCAN, flow and function CPT CODE: 17518 INDICATION: R rcca, eval differential renal function, [...] kidneys compatible with decreased renal function. Signed: Stevan Ambrose Verified Date/Time: 11/25/2018 11:35:45 Reading Location: [address] Reading Room [id number] 10:00:00 Test Item Value Reference Range Interpretation Comments PHOSPHORUS (BEAKER) (test code = 1.7 mg/dL 2.3-4.7 L 604) [id number] 10:00:00 Test Item Value Reference Range Interpretation Comments MAGNESIUM (BEAKER) (test code = 2.0 mg/dL 1.6-2.6 627) BASIC METABOLIC [id number] 10:00:00 Test Item Value Reference Range Interpretation Comments SODIUM (BEAKER) 141 meq/L 136-145 (test code = 381) POTASSIUM (BEAKER) 3.5 meq/L 3.5-5.1 (test code = 379) CHLORIDE (BEAKER) 113 meq/L 98-107 H (test code = 382) CO2 (BEAKER) (test 22 meq/L 22-29 code = 355) BLOOD UREA NITROGEN 20 mg/dL 7-21 (BEAKER) (test code = 354) CREATININE (BEAKER) 1.50 mg/dL 0.57-1.25 H (test code = 358) GLUCOSE RANDOM 164 mg/dL 70-105 H (BEAKER) (test code = 652) CALCIUM (BEAKER) 8.9 mg/dL 8.4-10.2 (test code = 697) EGFR (BEAKER) (test 46 mL/min/1.73 ESTIMA ESTRELLA GFR IS code = 1092) sq m NOT ACCURATE CREATININE CLEARANCE IN PREDICTING GLOMERULAR FILTRATION RATE . ESTIMATED GFR I S NOT APPLICABLE FOR DIALYSIS PATIEN TS. CBC W/PLT COUNT & AUTO [id number] 10:00:00 Test Item Value Reference Range Interpretation Comments WHITE BLOOD CELL COUNT (BEAKER) 7.6 K/ L 3.5-10.5 (test code = 775) RED BLOOD CELL COUNT (BEAKER) 3.58 M/ L 4.63-6.08 L (test code = 761) HEMOGLOBIN (BEAKER) (test code = 9.0 GM/DL 13.7-17.5 L 410) HEMATOCRIT (BEAKER) (test code = 30.4 % 40.1-51.0 L 411) MEAN CORPUSCULAR VOLUME (BEAKER) 84.9 fL 79.0-92.2 (test code = 753) MEAN CORPUSCULAR HEMOGLOBIN 25.1 pg 25.7-32.2 L (BEAKER) (test code = 751) MEAN CORPUSCULAR HEMOGLOBIN CONC 29.6 GM/DL 32.3-36.5 L (BEAKER) (test code = 752) RED CELL DISTRIBUTION WIDTH 22.0 % 11.6-14.4 H (BEAKER) (test code = 412) PLATELET COUNT (BEAKER) (test 252 K/CU MM 150-450 code = 756) MEAN PLATELET VOLUME (BEAKER) 10.5 fL 9.4-12.4 (test code = 754) NUCLEATED RED BLOOD CELLS 0 /100 WBC 0-0 (BEAKER) (test code = 413) NEUTROPHILS RELATIVE PERCENT 61 % (BEAKER) (test code = 429) LYMPHOCYTES RELATIVE PERCENT 25 % (BEAKER) (test code = 430) MONOCYTES RELATIVE PERCENT 6 % (BEAKER) (test code = 431) EOSINOPHILS RELATIVE PERCENT 7 % (BEAKER) (test code = 432) BASOPHILS RELATIVE PERCENT 1 % (BEAKER) (test code = 437) NEUTROPHILS ABSOLUTE COUNT 4.69 K/ L 1.78-5.38 (BEAKER) (test code = 670) LYMPHOCYTES ABSOLUTE COUNT 1.88 K/ L 1.32-3.57 (BEAKER) (test code = 414) MONOCYTES ABSOLUTE COUNT (BEAKER) 0.45 K/ L 0.30-0.82 (test code = 415) EOSINOPHILS ABSOLUTE COUNT 0.55 K/ L 0.04-0.54 H (BEAKER) (test code = 416) BASOPHILS ABSOLUTE COUNT (BEAKER) 0.05 K/ L 0.01-0.08 (test code = 417) IMMATURE GRANULOCYTES-RELATIVE 0 % 0-1 PERCENT (BEAKER) (test code = 2801) CALCIUM, [id number] 09:39:00 Test Item Value Reference Range Interpretation Comments CALCIUM IONIZED (BEAKER) (test 1.12 mmol/L 1.12-1.27 code = 698) PH, BLOOD (BEAKER) (test code = 7.33 1810) POCT-GLUCOSE [id number] 07:56:00 Test Item Value Reference Range Interpretation Comments POC-GLUCOSE METER 186 mg/dL 70-[address] [facility] 6720 (BEAKER) (test code = UMESH BOYLE 1538) [address] POCT-GLUCOSE [id number] 20:37:00 Test Item Value Reference Range Interpretation Comments POC-GLUCOSE METER 225 mg/dL 70-110 H TESTED AT [place] [address] ([facility]) (test code = UMESH Rick [facility] 1538) [address] POCT-GLUCOSE [id number] 18:21:00 Test Item Value Reference Range Interpretation Comments POC-GLUCOSE METER 234 mg/dL 70-110 H TESTED AT [place] [address] ([facility]) (test code = UMESH Rick [facility] 1538) [address] PUL PERF IMAGING, PARTIC, [id number] 12:25:00FINAL REPORT PROCEDURE: V/Q LUNG SCAN CPT CODE: 10013 INDICATION: Acute chest pain PROTOCOL: 10.7 mCi [...] acute pulmonary embolization.2. Bilateral parenchymal abnormalities. Signed: Stevan AmbroseMDReport Verified Date/Time: 11/24/2018 12:25:50 Reading Location: [address] Reading Room POCT-GLUCOSE [id number] 11:33:00 Test Item Value Reference Range Interpretation Comments POC-GLUCOSE METER 220 mg/dL 70-110 H TESTED AT [place] [address] ([facility]) (test code = UMESH Rick [facility] 1538) [address] CELIAC DISEASE [id number] 09:20:00 Test Item Value Reference Range Interpretation Comments SCAN RESULT (test code = 3555443) CELIAC DISEASE PROFILE Refer to Celiac AUTOVERIFICATION ([facility]) Disease Panel (test code = 2398357) results. POCT-GLUCOSE [id number] 07:46:00 Test Item Value Reference Range Interpretation Comments POC-GLUCOSE METER 162 mg/dL 70-[address] [facility] 6720 (BEAKER) (test code = UM[place] 1538) [address] CALCIUM, [id number] 07:34:00 Test Item Value Reference Range Interpretation Comments CALCIUM IONIZED (BEAKER) (test 1.09 mmol/L 1.12-1.27 L code = 698) PH, BLOOD (BEAKER) (test code = 7.44 1810) [id number] 06:31:00 Test Item Value Reference Range Interpretation Comments PHOSPHORUS (BEAKER) (test code = 2.6 mg/dL 2.3-4.7 604) [id number] 06:31:00 Test Item Value Reference Range Interpretation Comments MAGNESIUM (BEAKER) (test code = 1.8 mg/dL 1.6-2.6 627) COMPREHENSIVE METABOLIC [id number] 06:31:00 Test Item Value Reference Range Interpretation Comments TOTAL PROTEIN 5.7 gm/dL 6.0-8.3 L (BEAKER) (test code = 770) ALBUMIN (BEAKER) 3.0 g/dL 3.5-5.0 L (test code = 1145) ALKALINE PHOSPHATASE 50 U/L 40-150 (BEAKER) (test code = 346) BILIRUBIN TOTAL 0.4 mg/dL 0.2-1.2 (BEAKER) (test code = 377) SODIUM (BEAKER) (test 141 meq/L 136-145 code = 381) POTASSIUM (BEAKER) 3.0 meq/L 3.5-5.1 L (test code = 379) CHLORIDE (BEAKER) 112 meq/L 98-107 H (test code = 382) CO2 (BEAKER) (test 19 meq/L 22-29 L code = 355) BLOOD UREA NITROGEN 28 mg/dL 7-21 H (BEAKER) (test code = 354) CREATININE (BEAKER) 1.65 mg/dL 0.57-1.25 H (test code = 358) GLUCOSE RANDOM 132 mg/dL 70-105 H (BEAKER) (test code = 652) CALCIUM (BEAKER) 8.5 mg/dL 8.4-10.2 (test code = 697) AST (SGOT) (BEAKER) 8 U/L 5-34 (test code = 353) ALT (SGPT) (BEAKER) 8 U/L 6-55 (test code = 347) EGFR (BEAKER) (test 41 mL/min/1.73 ESTIMA ESTRELLA GFR IS code = 1092) sq m NOT ACCURATE CREATININE CLEARANCE IN PREDICTING GLOMERULAR FILTRATION RATE . ESTIMATED GFR I S NOT APPLICABLE FOR DIALYSIS PATIEN TS. VANCOMYCIN LEVEL, [id number] 06:19:00 Test Item Value Reference Range Interpretation Comments VANCOMYCIN TROUGH (BEAKER) (test 17.7 ug/mL 10.0-20.0 code = 522) Hold dose if trough >20 mcg/mlCBC W/PLT COUNT & AUTO DIFFERENTIAL 2018-11-24 06:10:00 Test Item Value Reference Range Interpretation Comments WHITE BLOOD CELL COUNT (BEAKER) 12.2 K/ L 3.5-10.5 H (test code = 775) RED BLOOD CELL COUNT (BEAKER) 3.03 M/ L 4.63-6.08 L (test code = 761) HEMOGLOBIN (BEAKER) (test code = 7.8 GM/DL 13.7-17.5 L 410) HEMATOCRIT (BEAKER) (test code = 25.8 % 40.1-51.0 L 411) MEAN CORPUSCULAR VOLUME (BEAKER) 85.1 fL 79.0-92.2 (test code = 753) MEAN CORPUSCULAR HEMOGLOBIN 25.7 pg 25.7-32.2 (BEAKER) (test code = 751) MEAN CORPUSCULAR HEMOGLOBIN CONC 30.2 GM/DL 32.3-36.5 L (BEAKER) (test code = 752) RED CELL DISTRIBUTION WIDTH 22.2 % 11.6-14.4 H (BEAKER) (test code = 412) PLATELET COUNT (BEAKER) (test 204 K/CU MM 150-450 code = 756) MEAN PLATELET VOLUME (BEAKER) 10.5 fL 9.4-12.4 (test code = 754) NUCLEATED RED BLOOD CELLS 0 /100 WBC 0-0 (BEAKER) (test code = 413) NEUTROPHILS RELATIVE PERCENT 74 % (BEAKER) (test code = 429) LYMPHOCYTES RELATIVE PERCENT 15 % (BEAKER) (test code = 430) MONOCYTES RELATIVE PERCENT 6 % (BEAKER) (test code = 431) EOSINOPHILS RELATIVE PERCENT 5 % (BEAKER) (test code = 432) BASOPHILS RELATIVE PERCENT 0 % (BEAKER) (test code = 437) NEUTROPHILS ABSOLUTE COUNT 9.02 K/ L 1.78-5.38 H (BEAKER) (test code = 670) LYMPHOCYTES ABSOLUTE COUNT 1.85 K/ L 1.32-3.57 (BEAKER) (test code = 414) MONOCYTES ABSOLUTE COUNT (BEAKER) 0.67 K/ L 0.30-0.82 (test code = 415) EOSINOPHILS ABSOLUTE COUNT 0.58 K/ L 0.04-0.54 H (BEAKER) (test code = 416) BASOPHILS ABSOLUTE COUNT (BEAKER) 0.03 K/ L 0.01-0.08 (test code = 417) IMMATURE GRANULOCYTES-RELATIVE 1 % 0-1 PERCENT (BEAKER) (test code = 2801) POCT-GLUCOSE [id number] 21:24:00 Test Item Value Reference Range Interpretation Comments POC-GLUCOSE METER 227 mg/dL 70-110 H TESTED AT [place] [address] ([facility]) (test code = [facility] Prabhjot [facility] 1538) [address] POCT-GLUCOSE [id number] 17:44:00 Test Item Value Reference Range Interpretation Comments POC-GLUCOSE METER 257 mg/dL 70-110 H TESTED AT [place] [address] ([facility]) (test code = [facility] 1538) [address] POCT-GLUCOSE [id number] 11:33:00 Test Item Value Reference Range Interpretation Comments POC-GLUCOSE METER 297 mg/dL 70-110 H TESTED AT [place] [address] ([facility]) (test code = [facility] 1538) [address] POCT-GLUCOSE [id number] 07:49:00 Test Item Value Reference Range Interpretation Comments POC-GLUCOSE METER 185 mg/dL 70-110 H TESTED AT [place] [address] ([facility]) (test code = [facility] 1538) [address] CALCIUM, [id number] 07:30:00 Test Item Value Reference Range Interpretation Comments CALCIUM IONIZED (BEAKER) (test 1.05 mmol/L 1.12-1.27 L code = 698) PH, BLOOD ([facility]) (test code = 7.45 1810) [id number] 06:25:00 Test Item Value Reference Range Interpretation Comments PHOSPHORUS (BEAKER) (test code = 2.8 mg/dL 2.3-4.7 604) [id number] 06:25:00 Test Item Value Reference Range Interpretation Comments MAGNESIUM (BEAKER) (test code = 1.7 mg/dL 1.6-2.6 627) COMPREHENSIVE METABOLIC [id number] 06:25:00 Test Item Value Reference Range Interpretation Comments TOTAL PROTEIN 5.7 gm/dL 6.0-8.3 L (BEAKER) (test code = 770) ALBUMIN (BEAKER) 3.1 g/dL 3.5-5.0 L (test code = 1145) ALKALINE PHOSPHATASE 62 U/L 40-150 (BEAKER) (test code = 346) BILIRUBIN TOTAL 0.7 mg/dL 0.2-1.2 (BEAKER) (test code = 377) SODIUM (BEAKER) (test 136 meq/L 136-145 code = 381) POTASSIUM (BEAKER) 3.2 meq/L 3.5-5.1 L (test code = 379) CHLORIDE (BEAKER) 108 meq/L 98-107 H (test code = 382) CO2 (BEAKER) (test 18 meq/L 22-29 L code = 355) BLOOD UREA NITROGEN 28 mg/dL 7-21 H (BEAKER) (test code = 354) CREATININE (BEAKER) 2.10 mg/dL 0.57-1.25 H (test code = 358) GLUCOSE RANDOM 156 mg/dL 70-105 H (BEAKER) (test code = 652) CALCIUM (BEAKER) 8.4 mg/dL 8.4-10.2 (test code = 697) AST (SGOT) (BEAKER) 7 U/L 5-34 (test code = 353) ALT (SGPT) (BEAKER) 7 U/L 6-55 (test code = 347) EGFR (BEAKER) (test 31 mL/min/1.73 ESTIMA ESTRELLA GFR IS code = 1092) sq m NOT ACCURATE CREATININE CLEARANCE IN PREDICTING GLOMERULAR FILTRATION RATE . ESTIMATED GFR I S NOT APPLICABLE FOR DIALYSIS PATIEN TS. B-TYPE NATRIURETIC FACTOR (BNP)2018-11-23 06:20:00 Test Item Value Reference Range Interpretation Comments B-TYPE NATRIURETIC PEPTIDE (BEAKER) 157 pg/mL 0-100 H (test code = 700) CBC W/PLT COUNT & AUTO [id number] 05:56:00 Test Item Value Reference Range Interpretation Comments WHITE BLOOD CELL COUNT (BEAKER) 17.8 K/ L 3.5-10.5 H (test code = 775) RED BLOOD CELL COUNT (BEAKER) 3.25 M/ L 4.63-6.08 L (test code = 761) HEMOGLOBIN (BEAKER) (test code = 8.3 GM/DL 13.7-17.5 L 410) HEMATOCRIT (BEAKER) (test code = 27.1 % 40.1-51.0 L 411) MEAN CORPUSCULAR VOLUME (BEAKER) 83.4 fL 79.0-92.2 (test code = 753) MEAN CORPUSCULAR HEMOGLOBIN 25.5 pg 25.7-32.2 L (BEAKER) (test code = 751) MEAN CORPUSCULAR HEMOGLOBIN CONC 30.6 GM/DL 32.3-36.5 L (BEAKER) (test code = 752) RED CELL DISTRIBUTION WIDTH 22.4 % 11.6-14.4 H (BEAKER) (test code = 412) PLATELET COUNT (BEAKER) (test 198 K/CU MM 150-450 code = 756) MEAN PLATELET VOLUME (BEAKER) 10.1 fL 9.4-12.4 (test code = 754) NUCLEATED RED BLOOD CELLS 0 /100 WBC 0-0 (BEAKER) (test code = 413) NEUTROPHILS RELATIVE PERCENT 82 % (BEAKER) (test code = 429) LYMPHOCYTES RELATIVE PERCENT 10 % (BEAKER) (test code = 430) MONOCYTES RELATIVE PERCENT 6 % (BEAKER) (test code = 431) EOSINOPHILS RELATIVE PERCENT 1 % (BEAKER) (test code = 432) BASOPHILS RELATIVE PERCENT 0 % (BEAKER) (test code = 437) NEUTROPHILS ABSOLUTE COUNT 14.60 K/ L 1.78-5.38 H (BEAKER) (test code = 670) LYMPHOCYTES ABSOLUTE COUNT 1.71 K/ L 1.32-3.57 (BEAKER) (test code = 414) MONOCYTES ABSOLUTE COUNT (BEAKER) 1.03 K/ L 0.30-0.82 H (test code = 415) EOSINOPHILS ABSOLUTE COUNT 0.22 K/ L 0.04-0.54 (BEAKER) (test code = 416) BASOPHILS ABSOLUTE COUNT (BEAKER) 0.03 K/ L 0.01-0.08 (test code = 417) IMMATURE GRANULOCYTES-RELATIVE 1 % 0-1 PERCENT (BEAKER) (test code = 2801) CT, CHEST, WITHOUT [id number] 04:37:00Replaces exam w contrastFINAL REPORT EXAMINATION: Noncontrast chest CT. CLINICAL HISTORY: Acute respiratory illness COMPARISON EXAM: Abdominal CT 11/20/2018, chest CT 05/14/2012 TECHNIQUE: Axial noncontrast tomographic images were acquired through the thorax. The exam was performed according to our departmental dose optimization program which includes automated exposure control, adjustment of [...] parapneumonic.Please see above for additional details. Signed: Andrea Sandoval MDReport Verified Date/Time: 11/23/2018 04:37:26 Reading Location: [address] Reading Room LACTIC ACID, VENOUS, WHOLE BLOOD 2018-11-23 00:50:00 Test Item Value Reference Range Interpretation Comments LACTATE BLOOD VENOUS (2) (BEAKER) 2.3 mmol/L 0.5-2.2 H (test code = 2872) CBC W/PLT COUNT & AUTO [id number] 00:34:00 Test Item Value Reference Range Interpretation Comments WHITE BLOOD CELL COUNT (BEAKER) 19.5 K/ L 3.5-10.5 H (test code = 775) RED BLOOD CELL COUNT (BEAKER) 3.63 M/ L 4.63-6.08 L (test code = 761) HEMOGLOBIN (BEAKER) (test code = 9.1 GM/DL 13.7-17.5 L 410) HEMATOCRIT (BEAKER) (test code = 31.0 % 40.1-51.0 L 411) MEAN CORPUSCULAR VOLUME (BEAKER) 85.4 fL 79.0-92.2 (test code = 753) MEAN CORPUSCULAR HEMOGLOBIN 25.1 pg 25.7-32.2 L (BEAKER) (test code = 751) MEAN CORPUSCULAR HEMOGLOBIN CONC 29.4 GM/DL 32.3-36.5 L (BEAKER) (test code = 752) RED CELL DISTRIBUTION WIDTH 22.2 % 11.6-14.4 H (BEAKER) (test code = 412) PLATELET COUNT (BEAKER) (test 218 K/CU MM 150-450 code = 756) MEAN PLATELET VOLUME (BEAKER) 10.1 fL 9.4-12.4 (test code = 754) NUCLEATED RED BLOOD CELLS 0 /100 WBC 0-0 (BEAKER) (test code = 413) NEUTROPHILS RELATIVE PERCENT 84 % (BEAKER) (test code = 429) LYMPHOCYTES RELATIVE PERCENT 7 % (BEAKER) (test code = 430) MONOCYTES RELATIVE PERCENT 6 % (BEAKER) (test code = 431) EOSINOPHILS RELATIVE PERCENT 1 % (BEAKER) (test code = 432) BASOPHILS RELATIVE PERCENT 0 % (BEAKER) (test code = 437) NEUTROPHILS ABSOLUTE COUNT 16.28 K/ L 1.78-5.38 H (BEAKER) (test code = 670) LYMPHOCYTES ABSOLUTE COUNT 1.41 K/ L 1.32-3.57 ([facility]) (test code = 414) MONOCYTES ABSOLUTE COUNT (BEAKER) 1.16 K/ L 0.30-0.82 H (test code = 415) EOSINOPHILS ABSOLUTE COUNT 0.18 K/ L 0.04-0.54 (AKER) (test code = 416) BASOPHILS ABSOLUTE COUNT (AKER) 0.06 K/ L 0.01-0.08 (test code = 417) IMMATURE GRANULOCYTES-RELATIVE 2 % 0-1 H PERCENT ([facility]) (test code = 2801) POCT-GLUCOSE [id number] 21:22:00 Test Item Value Reference Range Interpretation Comments POC-GLUCOSE METER 308 mg/dL 70-110 H Will Repea t Test/TESTED ([facility]) (test code = AT [place] [address]) [facility] 7703 0 POCT-GLUCOSE [id number] 17:17:00 Test Item Value Reference Range Interpretation Comments POC-GLUCOSE METER 274 mg/dL 70-110 H TESTED AT [place] [address] ([facility]) (test code = [place] [address]) [address] POCT-GLUCOSE [id number] 11:42:00 Test Item Value Reference Range Interpretation Comments POC-GLUCOSE METER 221 mg/dL 70-110 H TESTED AT [place] [address] ([facility]) (test code = [facility] 1538) [address] POCT-GLUCOSE [id number] 07:49:00 Test Item Value Reference Range Interpretation Comments POC-GLUCOSE METER 211 mg/dL 70-110 H TESTED AT [place] [address] ([facility]) (test code = [place] [address]408) [address] [id number] 07:40:00 Test Item Value Reference Range Interpretation Comments MAGNESIUM ([facility]) (test code = 1.9 mg/dL 1.6-2.6 627) COMPREHENSIVE METABOLIC [id number] 07:40:00 Test Item Value Reference Range Interpretation Comments TOTAL PROTEIN 6.0 gm/dL 6.0-8.3 ([facility]) (test code = 770) ALBUMIN ([facility]) 3.4 g/dL 3.5-5.0 L (test code = 1145) ALKALINE PHOSPHATASE 51 U/L 40-150 (BEAKER) (test code = 346) BILIRUBIN TOTAL 0.5 mg/dL 0.2-1.2 (BEAKER) (test code = 377) SODIUM (BEAKER) (test 137 meq/L 136-145 code = 381) POTASSIUM (BEAKER) 3.5 meq/L 3.5-5.1 (test code = 379) CHLORIDE (BEAKER) 109 meq/L 98-107 H (test code = 382) CO2 (BEAKER) (test 19 meq/L 22-29 L code = 355) BLOOD UREA NITROGEN 16 mg/dL 7-21 (BEAKER) (test code = 354) CREATININE (BEAKER) 1.70 mg/dL 0.57-1.25 H (test code = 358) GLUCOSE RANDOM 184 mg/dL 70-105 H (BEAKER) (test code = 652) CALCIUM (BEAKER) 8.7 mg/dL 8.4-10.2 (test code = 697) AST (SGOT) (BEAKER) 9 U/L 5-34 (test code = 353) ALT (SGPT) (BEAKER) 7 U/L 6-55 (test code = 347) EGFR (BEAKER) (test 39 mL/min/1.73 ESTIMA ESTRELLA GFR IS code = 1092) sq m NOT ACCURATE CREATININE CLEARANCE IN PREDICTING GLOMERULAR FILTRATION RATE . ESTIMATED GFR I S NOT APPLICABLE FOR DIALYSIS PATIEN TS. [id number] 06:10:00 Test Item Value Reference Range Interpretation Comments PHOSPHORUS (BEAKER) (test code = 2.3 mg/dL 2.3-4.7 604) CALCIUM, [id number] 05:39:00 Test Item Value Reference Range Interpretation Comments CALCIUM IONIZED (BEAKER) (test 1.09 mmol/L 1.12-1.27 L code = 698) PH, BLOOD (BEAKER) (test code = 7.47 1810) COMPREHENSIVE METABOLIC [id number] 23:05:00 Test Item Value Reference Range Interpretation Comments TOTAL PROTEIN 6.4 gm/dL 6.0-8.3 (BEAKER) (test code = 770) ALBUMIN (BEAKER) 3.6 g/dL 3.5-5.0 (test code = 1145) ALKALINE PHOSPHATASE 60 U/L 40-150 (BEAKER) (test code = 346) BILIRUBIN TOTAL 0.4 mg/dL 0.2-1.2 (BEAKER) (test code = 377) SODIUM (BEAKER) (test 135 meq/L 136-145 L code = 381) POTASSIUM (BEAKER) 3.5 meq/L 3.5-5.1 (test code = 379) CHLORIDE (BEAKER) 107 meq/L 98-107 (test code = 382) CO2 (BEAKER) (test 19 meq/L 22-29 L code = 355) BLOOD UREA NITROGEN 15 mg/dL 7-21 (BEAKER) (test code = 354) CREATININE (BEAKER) 1.31 mg/dL 0.57-1.25 H (test code = 358) GLUCOSE RANDOM 173 mg/dL 70-105 H (BEAKER) (test code = 652) CALCIUM (BEAKER) 9.0 mg/dL 8.4-10.2 (test code = 697) AST (SGOT) (BEAKER) 9 U/L 5-34 (test code = 353) ALT (SGPT) (BEAKER) 9 U/L 6-55 (test code = 347) EGFR (BEAKER) (test 53 mL/min/1.73 ESTIMA ESTRELLA GFR IS code = 1092) sq m NOT ACCURATE CREATININE CLEARANCE IN PREDICTING GLOMERULAR FILTRATION RATE . ESTIMATED GFR I S NOT APPLICABLE FOR DIALYSIS PATIEN TS. LACTIC ACID, VENOUS, WHOLE [id number] 22:58:00 Test Item Value Reference Range Interpretation Comments LACTATE BLOOD VENOUS (2) (BEAKER) 1.3 mmol/L 0.5-2.2 (test code = 2872) CBC W/PLT COUNT & AUTO [id number] 22:42:00 Test Item Value Reference Range Interpretation Comments WHITE BLOOD CELL COUNT (BEAKER) 14.8 K/ L 3.5-10.5 H (test code = 775) RED BLOOD CELL COUNT (BEAKER) 3.94 M/ L 4.63-6.08 L (test code = 761) HEMOGLOBIN (BEAKER) (test code = 10.1 GM/DL 13.7-17.5 L 410) HEMATOCRIT (BEAKER) (test code = 32.5 % 40.1-51.0 L 411) MEAN CORPUSCULAR VOLUME (BEAKER) 82.5 fL 79.0-92.2 (test code = 753) MEAN CORPUSCULAR HEMOGLOBIN 25.6 pg 25.7-32.2 L (BEAKER) (test code = 751) MEAN CORPUSCULAR HEMOGLOBIN CONC 31.1 GM/DL 32.3-36.5 L (BEAKER) (test code = 752) RED CELL DISTRIBUTION WIDTH 21.4 % 11.6-14.4 H (BEAKER) (test code = 412) PLATELET COUNT (BEAKER) (test 266 K/CU MM 150-450 code = 756) MEAN PLATELET VOLUME (BEAKER) 9.6 fL 9.4-12.4 (test code = 754) NUCLEATED RED BLOOD CELLS 0 /100 WBC 0-0 (BEAKER) (test code = 413) NEUTROPHILS RELATIVE PERCENT 90 % (BEAKER) (test code = 429) LYMPHOCYTES RELATIVE PERCENT 5 % (BEAKER) (test code = 430) MONOCYTES RELATIVE PERCENT 4 % (BEAKER) (test code = 431) EOSINOPHILS RELATIVE PERCENT 0 % (BEAKER) (test code = 432) BASOPHILS RELATIVE PERCENT 0 % (BEAKER) (test code = 437) NEUTROPHILS ABSOLUTE COUNT 13.29 K/ L 1.78-5.38 H (BEAKER) (test code = 670) LYMPHOCYTES ABSOLUTE COUNT 0.79 K/ L 1.32-3.57 L (BEAKER) (test code = 414) MONOCYTES ABSOLUTE COUNT (BEAKER) 0.63 K/ L 0.30-0.82 (test code = 415) EOSINOPHILS ABSOLUTE COUNT 0.06 K/ L 0.04-0.54 (BEAKER) (test code = 416) BASOPHILS ABSOLUTE COUNT (BEAKER) 0.02 K/ L 0.01-0.08 (test code = 417) IMMATURE GRANULOCYTES-RELATIVE 0 % 0-1 PERCENT (BEAKER) (test code = 2801) RAD, CHEST, 1 VIEW, NON [id number] 22:14:00Reason for exam:- >wheezingShould this be performed at the bedside?->YesFINAL REPORT EXAMINATION: AP PORTABLE CHEST RADIOGRAPH CLINICAL INDICATION: Wh eezing IMPRESSION: Compared to 11/19/2018 New patchy and [...] of a pneumothorax. Results discussed with the nu rse caring for the patient at time of dictation. The nurse will notify the appropriate on-call clinician. Signed: Andrea Sandoval MDReport Verified Date/Time: 11/21/2018 22:14:36 Reading Location: [address] Reading Room POCT-GLUCOSE [id number] 21:43:00 Test Item Value Reference Range Interpretation Comments POC-GLUCOSE METER 195 mg/dL 70-110 H TESTED AT [place] [address] ([facility]) (test code = UMESH Rick [facility] 1538) [address] POCT-GLUCOSE [id number] 17:48:00 Test Item Value Reference Range Interpretation Comments POC-GLUCOSE METER 186 mg/dL 70-110 H TESTED AT [place] [address] ([facility]) [facility] 1538) [address] POCT-GLUCOSE [id number] 11:43:00 Test Item Value Reference Range Interpretation Comments POC-GLUCOSE METER 321 mg/dL 70-110 H TESTED AT [place] [address] ([facility]) (test code = UMESH Rick [facility] 1538) [address] POCT-GLUCOSE [id number] 07:57:00 Test Item Value Reference Range Interpretation Comments POC-GLUCOSE METER 185 mg/dL 70-110 H TESTED AT [place] [address] ([facility]) (test code = UMESH Rick [facility] 1538) [address] [id number] 07:46:00 Test Item Value Reference Range Interpretation Comments PHOSPHORUS (BEAKER) (test code = 2.2 mg/dL 2.3-4.7 L 604) [id number] 07:46:00 Test Item Value Reference Range Interpretation Comments MAGNESIUM (BEAKER) (test code = 1.7 mg/dL 1.6-2.6 627) BASIC METABOLIC [id number] 07:46:00 Test Item Value Reference Range Interpretation Comments SODIUM (BEAKER) 139 meq/L 136-145 (test code = 381) POTASSIUM (BEAKER) 3.3 meq/L 3.5-5.1 L (test code = 379) CHLORIDE (BEAKER) 108 meq/L 98-107 H (test code = 382) CO2 (BEAKER) (test 20 meq/L 22-29 L code = 355) BLOOD UREA NITROGEN 15 mg/dL 7-21 (BEAKER) (test code = 354) CREATININE (BEAKER) 1.26 mg/dL 0.57-1.25 H (test code = 358) GLUCOSE RANDOM 117 mg/dL 70-105 H (BEAKER) (test code = 652) CALCIUM (BEAKER) 8.9 mg/dL 8.4-10.2 (test code = 697) EGFR (BEAKER) (test 56 mL/min/1.73 ESTIMA ESTRELLA GFR IS code = 1092) sq m NOT ACCURATE CREATININE CLEARANCE IN PREDICTING GLOMERULAR FILTRATION RATE . ESTIMATED GFR I S NOT APPLICABLE FOR DIALYSIS PATIEN TS. CBC W/PLT COUNT & AUTO [id number] 07:14:00 Test Item Value Reference Range Interpretation Comments WHITE BLOOD CELL COUNT (BEAKER) 8.6 K/ L 3.5-10.5 (test code = 775) RED BLOOD CELL COUNT (BEAKER) 3.49 M/ L 4.63-6.08 L (test code = 761) HEMOGLOBIN (BEAKER) (test code = 8.9 GM/DL 13.7-17.5 L 410) HEMATOCRIT (BEAKER) (test code = 29.5 % 40.1-51.0 L 411) MEAN CORPUSCULAR VOLUME (BEAKER) 84.5 fL 79.0-92.2 (test code = 753) MEAN CORPUSCULAR HEMOGLOBIN 25.5 pg 25.7-32.2 L (BEAKER) (test code = 751) MEAN CORPUSCULAR HEMOGLOBIN CONC 30.2 GM/DL 32.3-36.5 L (BEAKER) (test code = 752) RED CELL DISTRIBUTION WIDTH 21.2 % 11.6-14.4 H (BEAKER) (test code = 412) PLATELET COUNT (BEAKER) (test 269 K/CU MM 150-450 code = 756) MEAN PLATELET VOLUME (BEAKER) 11.3 fL 9.4-12.4 (test code = 754) NUCLEATED RED BLOOD CELLS 0 /100 WBC 0-0 (BEAKER) (test code = 413) NEUTROPHILS RELATIVE PERCENT 63 % (BEAKER) (test code = 429) LYMPHOCYTES RELATIVE PERCENT 27 % (BEAKER) (test code = 430) MONOCYTES RELATIVE PERCENT 6 % (BEAKER) (test code = 431) EOSINOPHILS RELATIVE PERCENT 4 % (BEAKER) (test code = 432) BASOPHILS RELATIVE PERCENT 1 % (BEAKER) (test code = 437) NEUTROPHILS ABSOLUTE COUNT 5.40 K/ L 1.78-5.38 H (BEAKER) (test code = 670) LYMPHOCYTES ABSOLUTE COUNT 2.30 K/ L 1.32-3.57 (BEAKER) (test code = 414) MONOCYTES ABSOLUTE COUNT (BEAKER) 0.52 K/ L 0.30-0.82 (test code = 415) EOSINOPHILS ABSOLUTE COUNT 0.33 K/ L 0.04-0.54 (BEAKER) (test code = 416) BASOPHILS ABSOLUTE COUNT (BEAKER) 0.06 K/ L 0.01-0.08 (test code = 417) IMMATURE GRANULOCYTES-RELATIVE 0 % 0-1 PERCENT (BEAKER) (test code = 2801) CALCIUM, [id number] 05:37:00 Test Item Value Reference Range Interpretation Comments CALCIUM IONIZED (BEAKER) (test 1.09 mmol/L 1.12-1.27 L code = 698) PH, BLOOD (BEAKER) (test code = 7.45 1810) POCT-GLUCOSE [id number] 20:52:00 Test Item Value Reference Range Interpretation Comments POC-GLUCOSE METER 134 mg/dL 70-[address] [facility] 67[address] (BEAKER) (test code = [facility] 1538) [address] CT, ABDOMEN, RENAL MASS, CYST [id number] 15:11:00Reason for exam:- >right renal massFINAL REPORT ABDOMINAL CT DATED 11/20/2018 COMPARISON: June [...] with renal cell carcinoma. Signed: Lurdes Fernandes Verified Date/Time: 11/20/2018 15:11:56 Reading Location: [address] Body Reading Room -GLUCOSE [id number] 12:13:00 Test Item Value Reference Range Interpretation Comments POC-GLUCOSE METER 221 mg/dL 70-110 H [facility] [place] [address] [facility] (test code = [facility] 1538) [id number] POCT-GLUCOSE [id number] 12:10:00 Test Item Value Reference Range Interpretation Comments POC-GLUCOSE METER 148 mg/dL 70-110 H TESTED AT [place] [id number] [facility] (test code = [facility] 1538) [id number] 05:52:00 Test Item Value Reference Range Interpretation Comments MAGNESIUM (BEAKER) 2.0 mg/dL 1.6-2.6 Specimen slightly (test code = 627) hemolyzed [id number] 05:52:00 Test Item Value Reference Range Interpretation Comments PHOSPHORUS (BEAKER) 2.2 mg/dL 2.3-4.7 L Specimen slightly (test code = 604) hemolyzed BASIC METABOLIC [id number] 05:52:00 Test Item Value Reference Range Interpretation Comments SODIUM (BEAKER) 141 meq/L 136-145 (test code = 381) POTASSIUM (BEAKER) 3.7 meq/L 3.5-5.1 Specimen slightly (test code = 379) hemolyzed CHLORIDE (BEAKER) 111 meq/L 98-107 H (test code = 382) CO2 (BEAKER) (test 19 meq/L 22-29 L code = 355) BLOOD UREA NITROGEN 18 mg/dL 7-21 (BEAKER) (test code = 354) CREATININE (BEAKER) 1.33 mg/dL 0.57-1.25 H Specimen slightly (test code = 358) hemolyzed GLUCOSE RANDOM 133 mg/dL 70-105 H (BEAKER) (test code = 652) CALCIUM (BEAKER) 9.1 mg/dL 8.4-10.2 (test code = 697) EGFR (BEAKER) (test 52 mL/min/1.73 ESTIMA ESTRELLA GFR IS code = 1092) sq m NOT ACCURATE CREATININE CLEARANCE IN PREDICTING GLOMERULAR FILTRATION RATE . ESTIMATED GFR I S NOT APPLICABLE FOR DIALYSIS PATIEN TS. CALCIUM, [id number] 05:46:00 Test Item Value Reference Range Interpretation Comments CALCIUM IONIZED (BEAKER) (test 1.07 mmol/L 1.12-1.27 L code = 698) PH, BLOOD (BEAKER) (test code = 7.45 1810) CBC W/PLT COUNT & AUTO [id number] 05:45:00 Test Item Value Reference Range Interpretation Comments WHITE BLOOD CELL COUNT (BEAKER) 9.4 K/ L 3.5-10.5 (test code = 775) RED BLOOD CELL COUNT (BEAKER) 3.59 M/ L 4.63-6.08 L (test code = 761) HEMOGLOBIN (BEAKER) (test code = 8.9 GM/DL 13.7-17.5 L 410) HEMATOCRIT (BEAKER) (test code = 30.6 % 40.1-51.0 L 411) MEAN CORPUSCULAR VOLUME (BEAKER) 85.2 fL 79.0-92.2 (test code = 753) MEAN CORPUSCULAR HEMOGLOBIN 24.8 pg 25.7-32.2 L (BEAKER) (test code = 751) MEAN CORPUSCULAR HEMOGLOBIN CONC 29.1 GM/DL 32.3-36.5 L (BEAKER) (test code = 752) RED CELL DISTRIBUTION WIDTH 20.9 % 11.6-14.4 H (BEAKER) (test code = 412) PLATELET COUNT (BEAKER) (test 300 K/CU MM 150-450 code = 756) MEAN PLATELET VOLUME (BEAKER) 9.9 fL 9.4-12.4 (test code = 754) NUCLEATED RED BLOOD CELLS 0 /100 WBC 0-0 (BEAKER) (test code = 413) NEUTROPHILS RELATIVE PERCENT 68 % (BEAKER) (test code = 429) LYMPHOCYTES RELATIVE PERCENT 23 % (BEAKER) (test code = 430) MONOCYTES RELATIVE PERCENT 5 % (BEAKER) (test code = 431) EOSINOPHILS RELATIVE PERCENT 3 % (BEAKER) (test code = 432) BASOPHILS RELATIVE PERCENT 1 % (BEAKER) (test code = 437) NEUTROPHILS ABSOLUTE COUNT 6.38 K/ L 1.78-5.38 H (BEAKER) (test code = 670) LYMPHOCYTES ABSOLUTE COUNT 2.18 K/ L 1.32-3.57 (BEAKER) (test code = 414) MONOCYTES ABSOLUTE COUNT (BEAKER) 0.50 K/ L 0.30-0.82 (test code = 415) EOSINOPHILS ABSOLUTE COUNT 0.28 K/ L 0.04-0.54 (BEAKER) (test code = 416) BASOPHILS ABSOLUTE COUNT (BEAKER) 0.05 K/ L 0.01-0.08 (test code = 417) IMMATURE GRANULOCYTES-RELATIVE 0 % 0-1 PERCENT (BEAKER) (test code = 2801) RAD, ABDOMEN/KUB, 1 VIEW [id number] 00:47:00Reason for exam:->placement of dobhoff tube, thanksFINAL REPORT EXAMINATION: SUPINE ABDOMEN CLINICAL INDICATION: FEEDING TUBE PLACEMENT IMPRESSION: Tip of the feeding tube projects over the left upper abdomen in the region of the stomach. Signed: Andrea Sandoval MDReport Verified Date/Time: 11/20/2018 00:47:19 Reading Location: [address] Reading Room POCT-GLUCOSE [id number] 20:52:00 Test Item Value Reference Range Interpretation Comments POC-GLUCOSE METER 150 mg/dL 70-[address] [facility] 67[address] ([facility]) (test code = UMESH Rick [facility] 1538) [id number] POCT-GLUCOSE [id number] 19:47:00 Test Item Value Reference Range Interpretation Comments POC-GLUCOSE METER 179 mg/dL 70-110 H TESTED AT [place] [address] ([facility]) (test code = UMESH Rick [facility] 1538) [address] RAD, CHEST, 1 VIEW, NON [id number] 18:19:00After EGDReason for exam:->NG tube placementShould this be performed at the bedside?->YesFINAL REPORT INDICATION: NG tube placement COMPARISON: November 14, 2018 TECHNIQUE: Single frontal view of the chest. IMPRESSION:Limited by underpenetration. Enteric tube is present. Side port is not visible. Positioning is similar to that seen in the reference examination of November 14, 2018. There is no consolidation, effusion or pneumothorax. Mediastinal contours are stable. Signed: JR Watters Robert MDReport Verified Date/Time: 11/19/2018 18:19:18 Reading Location: [facility] Radiology Reading Room POCT- GLUCOSE [id number] 16:55:00 Test Item Value Reference Range Interpretation Comments POC-GLUCOSE METER 172 mg/dL 70-110 H TESTED AT [place] [address] ([facility]) (test code = UMESH Rick [facility] 1538) [address] POCT-GLUCOSE [id number] 11:56:00 Test Item Value Reference Range Interpretation Comments POC-GLUCOSE METER 158 mg/dL 70-110 H TESTED AT [place] [address] ([facility]) (test code = UMESH Rick [facility] 1538) [address] POCT-GLUCOSE [id number] 07:17:00 Test Item Value Reference Range Interpretation Comments POC-GLUCOSE METER 142 mg/dL 70-110 H TESTED AT [place] [address] ([facility]) (test code = UMEHS Rick [facility] 1538) [address] [id number] 06:49:00 Test Item Value Reference Range Interpretation Comments PHOSPHORUS ([facility]) (test code = 2.4 mg/dL 2.3-4.7 604) [id number] 06:49:00 Test Item Value Reference Range Interpretation Comments MAGNESIUM (BEAKER) (test code = 1.7 mg/dL 1.6-2.6 627) BASIC METABOLIC [id number] 06:49:00 Test Item Value Reference Range Interpretation Comments SODIUM (BEAKER) 144 meq/L 136-145 (test code = 381) POTASSIUM (BEAKER) 3.4 meq/L 3.5-5.1 L (test code = 379) CHLORIDE (BEAKER) 111 meq/L 98-107 H (test code = 382) CO2 (BEAKER) (test 24 meq/L 22-29 code = 355) BLOOD UREA NITROGEN 19 mg/dL 7-21 (BEAKER) (test code = 354) CREATININE (BEAKER) 1.35 mg/dL 0.57-1.25 H (test code = 358) GLUCOSE RANDOM 139 mg/dL 70-105 H (BEAKER) (test code = 652) CALCIUM (BEAKER) 9.4 mg/dL 8.4-10.2 (test code = 697) EGFR (BEAKER) (test 52 mL/min/1.73 ESTIMA ESTRELLA GFR IS code = 1092) sq m NOT ACCURATE CREATININE CLEARANCE IN PREDICTING GLOMERULAR FILTRATION RATE . ESTIMATED GFR I S NOT APPLICABLE FOR DIALYSIS PATIEN TS. CBC W/PLT COUNT & AUTO [id number] 06:48:00 Test Item Value Reference Range Interpretation Comments WHITE BLOOD CELL COUNT (BEAKER) 9.0 K/ L 3.5-10.5 (test code = 775) RED BLOOD CELL COUNT (BEAKER) 3.60 M/ L 4.63-6.08 L (test code = 761) HEMOGLOBIN (BEAKER) (test code = 9.0 GM/DL 13.7-17.5 L 410) HEMATOCRIT (BEAKER) (test code = 29.9 % 40.1-51.0 L 411) MEAN CORPUSCULAR VOLUME (BEAKER) 83.1 fL 79.0-92.2 (test code = 753) MEAN CORPUSCULAR HEMOGLOBIN 25.0 pg 25.7-32.2 L (BEAKER) (test code = 751) MEAN CORPUSCULAR HEMOGLOBIN CONC 30.1 GM/DL 32.3-36.5 L (BEAKER) (test code = 752) RED CELL DISTRIBUTION WIDTH 20.1 % 11.6-14.4 H (BEAKER) (test code = 412) PLATELET COUNT (BEAKER) (test 342 K/CU MM 150-450 code = 756) MEAN PLATELET VOLUME (BEAKER) 9.6 fL 9.4-12.4 (test code = 754) NUCLEATED RED BLOOD CELLS 0 /100 WBC 0-0 (BEAKER) (test code = 413) NEUTROPHILS RELATIVE PERCENT 69 % (BEAKER) (test code = 429) LYMPHOCYTES RELATIVE PERCENT 22 % (BEAKER) (test code = 430) MONOCYTES RELATIVE PERCENT 6 % (BEAKER) (test code = 431) EOSINOPHILS RELATIVE PERCENT 2 % (BEAKER) (test code = 432) BASOPHILS RELATIVE PERCENT 1 % (BEAKER) (test code = 437) NEUTROPHILS ABSOLUTE COUNT 6.19 K/ L 1.78-5.38 H (BEAKER) (test code = 670) LYMPHOCYTES ABSOLUTE COUNT 1.99 K/ L 1.32-3.57 (BEAKER) (test code = 414) MONOCYTES ABSOLUTE COUNT (BEAKER) 0.52 K/ L 0.30-0.82 (test code = 415) EOSINOPHILS ABSOLUTE COUNT 0.18 K/ L 0.04-0.54 (BEAKER) (test code = 416) BASOPHILS ABSOLUTE COUNT (BEAKER) 0.06 K/ L 0.01-0.08 (test code = 417) IMMATURE GRANULOCYTES-RELATIVE 0 % 0-1 PERCENT (BEAKER) (test code = 2801) POCT-GLUCOSE [id number] 21:23:00 Test Item Value Reference Range Interpretation Comments POC-GLUCOSE METER 172 mg/dL 70-110 H TESTED AT [place] [address] ([facility]) (test code = [facility] 1538) [address] POCT-GLUCOSE [id number] 11:34:00 Test Item Value Reference Range Interpretation Comments POC-GLUCOSE METER 187 mg/dL 70-110 H TESTED AT [place] [address] ([facility]) (test code = [facility] 1538) [address] POCT-GLUCOSE [id number] 07:51:00 Test Item Value Reference Range Interpretation Comments POC-GLUCOSE METER 192 mg/dL 70-110 H TESTED AT [place] [address] ([facility]) (test code = [facility] 1538) [address] CALCIUM, [id number] 06:19:00 Test Item Value Reference Range Interpretation Comments CALCIUM IONIZED (BEAKER) (test 1.13 mmol/L 1.12-1.27 code = 698) PH, BLOOD (BEAKER) (test code = 7.43 1810) [id number] 06:03:00 Test Item Value Reference Range Interpretation Comments PHOSPHORUS (BEAKER) (test code = 2.5 mg/dL 2.3-4.7 604) [id number] 06:03:00 Test Item Value Reference Range Interpretation Comments MAGNESIUM (BEAKER) (test code = 1.5 mg/dL 1.6-2.6 L 627) BASIC METABOLIC [id number] 06:03:00 Test Item Value Reference Range Interpretation Comments SODIUM (BEAKER) 140 meq/L 136-145 (test code = 381) POTASSIUM (BEAKER) 3.6 meq/L 3.5-5.1 (test code = 379) CHLORIDE (BEAKER) 108 meq/L 98-107 H (test code = 382) CO2 (BEAKER) (test 22 meq/L 22-29 code = 355) BLOOD UREA NITROGEN 21 mg/dL 7-21 (BEAKER) (test code = 354) CREATININE (BEAKER) 1.40 mg/dL 0.57-1.25 H (test code = 358) GLUCOSE RANDOM 158 mg/dL 70-105 H (BEAKER) (test code = 652) CALCIUM (BEAKER) 9.1 mg/dL 8.4-10.2 (test code = 697) EGFR (BEAKER) (test 49 mL/min/1.73 ESTIMA ESTRELLA GFR IS code = 1092) sq m NOT ACCURATE CREATININE CLEARANCE IN PREDICTING GLOMERULAR FILTRATION RATE . ESTIMATED GFR I S NOT APPLICABLE FOR DIALYSIS PATIEN TS. CBC W/PLT COUNT & AUTO [id number] 05:41:00 Test Item Value Reference Range Interpretation Comments WHITE BLOOD CELL COUNT (BEAKER) 10.1 K/ L 3.5-10.5 (test code = 775) RED BLOOD CELL COUNT (BEAKER) 3.56 M/ L 4.63-6.08 L (test code = 761) HEMOGLOBIN (BEAKER) (test code = 8.8 GM/DL 13.7-17.5 L 410) HEMATOCRIT (BEAKER) (test code = 29.6 % 40.1-51.0 L 411) MEAN CORPUSCULAR VOLUME (BEAKER) 83.1 fL 79.0-92.2 (test code = 753) MEAN CORPUSCULAR HEMOGLOBIN 24.7 pg 25.7-32.2 L (BEAKER) (test code = 751) MEAN CORPUSCULAR HEMOGLOBIN CONC 29.7 GM/DL 32.3-36.5 L (BEAKER) (test code = 752) RED CELL DISTRIBUTION WIDTH 19.7 % 11.6-14.4 H (BEAKER) (test code = 412) PLATELET COUNT (BEAKER) (test 337 K/CU MM 150-450 code = 756) MEAN PLATELET VOLUME (BEAKER) 10.3 fL 9.4-12.4 (test code = 754) NUCLEATED RED BLOOD CELLS 0 /100 WBC 0-0 (BEAKER) (test code = 413) NEUTROPHILS RELATIVE PERCENT 69 % (BEAKER) (test code = 429) LYMPHOCYTES RELATIVE PERCENT 21 % (BEAKER) (test code = 430) MONOCYTES RELATIVE PERCENT 6 % (BEAKER) (test code = 431) EOSINOPHILS RELATIVE PERCENT 2 % (BEAKER) (test code = 432) BASOPHILS RELATIVE PERCENT 1 % (BEAKER) (test code = 437) NEUTROPHILS ABSOLUTE COUNT 6.98 K/ L 1.78-5.38 H (BEAKER) (test code = 670) LYMPHOCYTES ABSOLUTE COUNT 2.13 K/ L 1.32-3.57 (BEAKER) (test code = 414) MONOCYTES ABSOLUTE COUNT (BEAKER) 0.65 K/ L 0.30-0.82 (test code = 415) EOSINOPHILS ABSOLUTE COUNT 0.20 K/ L 0.04-0.54 (BEAKER) (test code = 416) BASOPHILS ABSOLUTE COUNT (BEAKER) 0.05 K/ L 0.01-0.08 (test code = 417) IMMATURE GRANULOCYTES-RELATIVE 1 % 0-1 PERCENT (BEAKER) (test code = 2801) POCT-GLUCOSE [id number] 21:32:00 Test Item Value Reference Range Interpretation Comments POC-GLUCOSE METER 187 mg/dL 70-[address] [facility] 67[address] (BEAKER) (test code = UMESH [place] 1538) [address] POCT-GLUCOSE [id number] 17:16:00 Test Item Value Reference Range Interpretation Comments POC-GLUCOSE METER 174 mg/dL 70-[address] [facility] 67[address] (BEAKER) (test code = UMESH Rick [place] 1538) [address] POCT-GLUCOSE [id number] 11:52:00 Test Item Value Reference Range Interpretation Comments POC-GLUCOSE METER 172 mg/dL 70-[address] [facility] 67[address] (BEAKER) (test code = UMESH Rick [facility] 1538) [address] BASIC METABOLIC [id number] 09:39:00 Test Item Value Reference Range Interpretation Comments SODIUM (BEAKER) 140 meq/L 136-145 (test code = 381) POTASSIUM (BEAKER) 3.9 meq/L 3.5-5.1 (test code = 379) CHLORIDE (BEAKER) 109 meq/L 98-107 H (test code = 382) CO2 (BEAKER) (test 20 meq/L 22-29 L code = 355) BLOOD UREA NITROGEN 20 mg/dL 7-21 (BEAKER) (test code = 354) CREATININE (BEAKER) 1.47 mg/dL 0.57-1.25 H (test code = 358) GLUCOSE RANDOM 138 mg/dL 70-105 H (BEAKER) (test code = 652) CALCIUM (BEAKER) 9.3 mg/dL 8.4-10.2 (test code = 697) EGFR (BEAKER) (test 47 mL/min/1.73 ESTIMA ESTRELLA GFR IS code = 1092) sq m NOT ACCURATE CREATININE CLEARANCE IN PREDICTING GLOMERULAR FILTRATION RATE . ESTIMATED GFR I S NOT APPLICABLE FOR DIALYSIS PATIEN TS. CBC (HEMOGRAM ONLY)2018-11-17 09:22:00 Test Item Value Reference Range Interpretation Comments WHITE BLOOD CELL COUNT (BEAKER) 9.9 K/ L 3.5-10.5 (test code = 775) RED BLOOD CELL COUNT (BEAKER) 3.62 M/ L 4.63-6.08 L (test code = 761) HEMOGLOBIN (BEAKER) (test code = 8.9 GM/DL 13.7-17.5 L 410) HEMATOCRIT (BEAKER) (test code = 29.9 % 40.1-51.0 L 411) MEAN CORPUSCULAR VOLUME (BEAKER) 82.6 fL 79.0-92.2 (test code = 753) MEAN CORPUSCULAR HEMOGLOBIN 24.6 pg 25.7-32.2 L ([facility]) (test code = 751) MEAN CORPUSCULAR HEMOGLOBIN CONC 29.8 GM/DL 32.3-36.5 L ([facility]) (test code = 752) RED CELL DISTRIBUTION WIDTH 19.4 % 11.6-14.4 H ([facility]) (test code = 412) PLATELET COUNT ([facility]) (test 364 K/CU MM 150-450 code = 756) MEAN PLATELET VOLUME ([facility]) 9.4 fL 9.4-12.4 (test code = 754) NUCLEATED RED BLOOD CELLS 0 /100 WBC 0-0 ([facility]) (test code = 413) POCT-GLUCOSE [id number] 07:54:00 Test Item Value Reference Range Interpretation Comments POC-GLUCOSE METER 140 mg/dL 70-110 H TESTED AT [place] [address] ([facility]) (test code = UMESH [place] 1538) [address] POCT-GLUCOSE [id number] 20:01:00 Test Item Value Reference Range Interpretation Comments POC-GLUCOSE METER 176 mg/dL 70-110 H TESTED AT [place] [address] ([facility]) (test code = UM[facility] [place] 1538) [address] POCT-GLUCOSE [id number] 17:51:00 Test Item Value Reference Range Interpretation Comments POC-GLUCOSE METER 168 mg/dL 70-110 H TESTED AT [place] [address] ([facility]) (test code = UMESH Rick [place] 1538) [address] POCT-GLUCOSE [id number] 11:41:00 Test Item Value Reference Range Interpretation Comments POC-GLUCOSE METER 164 mg/dL 70-110 H TESTED AT [place] [address] ([facility]) (test code = UMESH Rick [place] 1538) [address] POCT-GLUCOSE [id number] 08:13:00 Test Item Value Reference Range Interpretation Comments POC-GLUCOSE METER 161 mg/dL 70-110 H TESTED AT [place] [address] ([facility]) (test code = UM[facility] [place] 1538) [address] COMPREHENSIVE METABOLIC [id number] 05:49:00 Test Item Value Reference Range Interpretation Comments TOTAL PROTEIN 7.0 gm/dL 6.0-8.3 (BEAKER) (test code = 770) ALBUMIN (BEAKER) 3.8 g/dL 3.5-5.0 (test code = 1145) ALKALINE PHOSPHATASE 70 U/L 40-150 (BEAKER) (test code = 346) BILIRUBIN TOTAL 0.4 mg/dL 0.2-1.2 (BEAKER) (test code = 377) SODIUM (BEAKER) (test 139 meq/L 136-145 code = 381) POTASSIUM (BEAKER) 3.8 meq/L 3.5-5.1 (test code = 379) CHLORIDE (BEAKER) 107 meq/L 98-107 (test code = 382) CO2 (BEAKER) (test 22 meq/L 22-29 code = 355) BLOOD UREA NITROGEN 19 mg/dL 7-21 (BEAKER) (test code = 354) CREATININE (BEAKER) 1.66 mg/dL 0.57-1.25 H (test code = 358) GLUCOSE RANDOM 137 mg/dL 70-105 H (BEAKER) (test code = 652) CALCIUM (BEAKER) 9.6 mg/dL 8.4-10.2 (test code = 697) AST (SGOT) (BEAKER) 9 U/L 5-34 (test code = 353) ALT (SGPT) (BEAKER) 10 U/L 6-55 (test code = 347) EGFR (BEAKER) (test 41 mL/min/1.73 ESTIMA ESTRELLA GFR IS code = 1092) sq m NOT ACCURATE CREATININE CLEARANCE IN PREDICTING GLOMERULAR FILTRATION RATE . ESTIMATED GFR I S NOT APPLICABLE FOR DIALYSIS PATIEN TS. CBC (HEMOGRAM ONLY)2018-11-16 05:28:00 Test Item Value Reference Range Interpretation Comments WHITE BLOOD CELL COUNT (BEAKER) 11.1 K/ L 3.5-10.5 H (test code = 775) RED BLOOD CELL COUNT (BEAKER) 3.57 M/ L 4.63-6.08 L (test code = 761) HEMOGLOBIN (BEAKER) (test code = 8.8 GM/DL 13.7-17.5 L 410) HEMATOCRIT (BEAKER) (test code = 29.4 % 40.1-51.0 L 411) MEAN CORPUSCULAR VOLUME (BEAKER) 82.4 fL 79.0-92.2 (test code = 753) MEAN CORPUSCULAR HEMOGLOBIN 24.6 pg 25.7-32.2 L (BEAKER) (test code = 751) MEAN CORPUSCULAR HEMOGLOBIN CONC 29.9 GM/DL 32.3-36.5 L (BEAKER) (test code = 752) RED CELL DISTRIBUTION WIDTH 19.0 % 11.6-14.4 H (BEAKER) (test code = 412) PLATELET COUNT (AKER) (test 381 K/CU MM 150-450 code = 756) MEAN PLATELET VOLUME (BEAKER) 9.7 fL 9.4-12.4 (test code = 754) NUCLEATED RED BLOOD CELLS 0 /100 WBC 0-0 (AKER) (test code = 413) POCT-GLUCOSE [id number] 21:10:00 Test Item Value Reference Range Interpretation Comments POC-GLUCOSE METER 133 mg/dL 70-110 H TESTED AT [place] [address] ([facility]) [facility] 1538) [address] POCT-GLUCOSE [id number] 18:30:00 Test Item Value Reference Range Interpretation Comments POC-GLUCOSE METER 158 mg/dL 70-110 H TESTED AT [place] [address] ([facility]) (test code = [facility] Prabhjot [facility] 1538) [address] POCT-GLUCOSE [id number] 12:09:00 Test Item Value Reference Range Interpretation Comments POC-GLUCOSE METER 172 mg/dL 70-110 H TESTED AT [place] [address] ([facility]) (test code = [facility] Prabhjot [facility] 1538) [address] POCT-GLUCOSE [id number] 07:55:00 Test Item Value Reference Range Interpretation Comments POC-GLUCOSE METER 178 mg/dL 70-110 H TESTED AT [place] [address] ([facility]) (test code = [facility] 1538) [address] BASIC METABOLIC [id number] 07:20:00 Test Item Value Reference Range Interpretation Comments SODIUM (BEAKER) 137 meq/L 136-145 (test code = 381) POTASSIUM (BEAKER) 3.8 meq/L 3.5-5.1 (test code = 379) CHLORIDE (BEAKER) 106 meq/L 98-107 (test code = 382) CO2 (BEAKER) (test 22 meq/L 22-29 code = 355) BLOOD UREA NITROGEN 21 mg/dL 7-21 (BEAKER) (test code = 354) CREATININE (BEAKER) 1.56 mg/dL 0.57-1.25 H (test code = 358) GLUCOSE RANDOM 142 mg/dL 70-105 H (BEAKER) (test code = 652) CALCIUM (BEAKER) 9.3 mg/dL 8.4-10.2 (test code = 697) EGFR (BEAKER) (test 44 mL/min/1.73 ESTIMA ESTRELLA GFR IS code = 1092) sq m NOT ACCURATE CREATININE CLEARANCE IN PREDICTING GLOMERULAR FILTRATION RATE . ESTIMATED GFR I S NOT APPLICABLE FOR DIALYSIS PATIEN TS. B-TYPE NATRIURETIC FACTOR (BNP)2018-11-15 06:49:00 Test Item Value Reference Range Interpretation Comments B-TYPE NATRIURETIC PEPTIDE (BEAKER) 172 pg/mL 0-100 H (test code = 700) POCT-GLUCOSE [id number] 06:27:00 Test Item Value Reference Range Interpretation Comments POC-GLUCOSE METER 151 mg/dL 70-[address] [facility] 6720 ([facility]) (test code = UMESH [place] 1538) [id number] CBC (HEMOGRAM ONLY)2018-11-15 06:21:00 Test Item Value Reference Range Interpretation Comments WHITE BLOOD CELL COUNT (BEAKER) 10.1 K/ L 3.5-10.5 (test code = 775) RED BLOOD CELL COUNT (BEAKER) 3.42 M/ L 4.63-6.08 L (test code = 761) HEMOGLOBIN (BEAKER) (test code = 8.4 GM/DL 13.7-17.5 L 410) HEMATOCRIT (BEAKER) (test code = 27.6 % 40.1-51.0 L 411) MEAN CORPUSCULAR VOLUME (BEAKER) 80.7 fL 79.0-92.2 (test code = 753) MEAN CORPUSCULAR HEMOGLOBIN 24.6 pg 25.7-32.2 L (BEAKER) (test code = 751) MEAN CORPUSCULAR HEMOGLOBIN CONC 30.4 GM/DL 32.3-36.5 L (BEAKER) (test code = 752) RED CELL DISTRIBUTION WIDTH 18.5 % 11.6-14.4 H (BEAKER) (test code = 412) PLATELET COUNT (BEAKER) (test 383 K/CU MM 150-450 code = 756) MEAN PLATELET VOLUME (AMPAROAKER) 10.1 fL 9.4-12.4 (test code = 754) NUCLEATED RED BLOOD CELLS 0 /100 WBC 0-0 (MATTHEW) (test code = 413) POCT-GLUCOSE [id number] 21:06:00 Test Item Value Reference Range Interpretation Comments POC-GLUCOSE METER 157 mg/dL 70-[address] [facility] 6720 (OSWALD) (test code = UMESH Rick [place] 1538) [address] RAD, CHEST, 1 VIEW, NON [id number] 19:50:00Reason for exam:->sob/shest painShould this be performed [...] acute cardiopulmonary abnormality. Signed: Luis Blanca Verified Date/Time: 11/14/2018 19:50:32 Reading Location: [address] Reading Room RAD, ABDOMEN/KUB, 1 VIEW [id number] 19:02:00Reason for exam:->Check NGT placementPt is hard of hearing, please take directly and clearly to him.Should this be performed at the bedside?->YesFINAL REPORT CLINICAL HISTORY: NG tube placement COMPARISON: Same date at 1443 hours FINDINGS: A single supine view of a portion of the upper abdomen is submitted. The tip of anenteric tube overlies the left upper quadrant in the expected position of the proximal stomach. The examination is otherwise stable. Signed: Rose Rivera Verified Date/Time: 11/14/2018 19:02:06 Reading Location: [address] Reading Room POCT-GLUCOSE [id number] 17:34:00 Test Item Value Reference Range Interpretation Comments POC-GLUCOSE METER 136 mg/dL 70-[address] [facility] [address] (MATTHEW) (test code = UMSEH [place] 1538) [id number] TROPONIN [id number] 16:18:00 Test Item Value Reference Range Interpretation Comments TROPONIN I (MATTHEW) (test code = 397) < ng/mL 0.00-0.03 Troponin I (TnI) levels [...] (CK)2018-11-14 16:11:00 Test Item Value Reference Range Interpretation Comments CREATINE KINASE TOTAL (MATTHEW) (test 68 U/L 29-200 code = 380) RAD, ABDOMEN/KUB, 1 VIEW [id number] 15:36:00Reason for exam:->Abdominal distension; VomitingShould this be performed at the bedside?->YesFINAL REPORT Abdomen x-ray Clinical Diagnosis: Abdominal distention and vomitingComparison: No comparisonViews: Four Report:Abdomen:There is a nonspecific bowel gas pattern. There [...] or definite free intraperitoneal air. Impression:Nonspecific abdomen x-ray. Dilated air-filled loops of small and large bowel may be secondary to an ileus. Signed: Delaney Ortiz Verified Date/Time: 11/14/2018 15:36:02 Reading Location: [address] Consult Reading Room POCT-GLUCOSE [id number] 12:10:00 Test Item Value Reference Range Interpretation Comments POC-GLUCOSE METER 195 mg/dL 70-[address] [facility] [address] (BEAKER) (test code = UMESH Rick [facility] 1538) [id number] POCT-GLUCOSE [id number] 08:00:00 Test Item Value Reference Range Interpretation Comments POC-GLUCOSE METER 195 mg/dL 70-[address] [facility] [address] (BEAKER) (test code = HANSOH Prabhjot [facility] 1538) [id number] COMPREHENSIVE METABOLIC [id number] 06:10:00 Test Item Value Reference Range Interpretation Comments TOTAL PROTEIN 7.1 gm/dL 6.0-8.3 (BEAKER) (test code = 770) ALBUMIN (BEAKER) 3.8 g/dL 3.5-5.0 (test code = 1145) ALKALINE PHOSPHATASE 78 U/L 40-150 (BEAKER) (test code = 346) BILIRUBIN TOTAL 0.3 mg/dL 0.2-1.2 (BEAKER) (test code = 377) SODIUM (BEAKER) (test 136 meq/L 136-145 code = 381) POTASSIUM (BEAKER) 4.0 meq/L 3.5-5.1 (test code = 379) CHLORIDE (BEAKER) 107 meq/L 98-107 (test code = 382) CO2 (BEAKER) (test 19 meq/L 22-29 L code = 355) BLOOD UREA NITROGEN 25 mg/dL 7-21 H (BEAKER) (test code = 354) CREATININE (BEAKER) 1.67 mg/dL 0.57-1.25 H (test code = 358) GLUCOSE RANDOM 177 mg/dL 70-105 H (BEAKER) (test code = 652) CALCIUM (BEAKER) 9.4 mg/dL 8.4-10.2 (test code = 697) AST (SGOT) (BEAKER) 9 U/L 5-34 (test code = 353) ALT (SGPT) (BEAKER) 10 U/L 6-55 (test code = 347) EGFR (BEAKER) (test 40 mL/min/1.73 ESTIMA ESTRELLA GFR IS code = 1092) sq m NOT ACCURATE CREATININE CLEARANCE IN PREDICTING GLOMERULAR FILTRATION RATE . ESTIMATED GFR I S NOT APPLICABLE FOR DIALYSIS PATIEN TS. PROTHROMBIN TIME/[id number] 05:59:00 Test Item Value Reference Range Interpretation Comments PROTIME (BEAKER) (test code = 17.4 seconds 11.7-14.7 H 759) INR (BEAKER) (test code = 370) 1.4 <=5.9 RECOMMENDED COUMADIN/WARFARIN INR THERAPY RANGESSTANDARD DOSE: 2.0 - 3.0 Includes: PROPHYLAXIS forvenous thrombosis, systemic embolization; TREATMENT for venous thrombosis and/or pulmonary embolus.HIGH RISK: Target INR is 2.5-3.5 for patients with mechanical heart valves.CBC W/PLT COUNT & AUTO DIFFERENTIAL 2018-11-14 05:45:00 Test Item Value Reference Range Interpretation Comments WHITE BLOOD CELL COUNT (BEAKER) 11.1 K/ L 3.5-10.5 H (test code = 775) RED BLOOD CELL COUNT (BEAKER) 3.63 M/ L 4.63-6.08 L (test code = 761) HEMOGLOBIN (BEAKER) (test code = 8.8 GM/DL 13.7-17.5 L 410) HEMATOCRIT (BEAKER) (test code = 29.8 % 40.1-51.0 L 411) MEAN CORPUSCULAR VOLUME (BEAKER) 82.1 fL 79.0-92.2 (test code = 753) MEAN CORPUSCULAR HEMOGLOBIN 24.2 pg 25.7-32.2 L (BEAKER) (test code = 751) MEAN CORPUSCULAR HEMOGLOBIN CONC 29.5 GM/DL 32.3-36.5 L (BEAKER) (test code = 752) RED CELL DISTRIBUTION WIDTH 18.4 % 11.6-14.4 H (BEAKER) (test code = 412) PLATELET COUNT (BEAKER) (test 369 K/CU MM 150-450 code = 756) MEAN PLATELET VOLUME (BEAKER) 9.6 fL 9.4-12.4 (test code = 754) NUCLEATED RED BLOOD CELLS 0 /100 WBC 0-0 (BEAKER) (test code = 413) NEUTROPHILS RELATIVE PERCENT 72 % (BEAKER) (test code = 429) LYMPHOCYTES RELATIVE PERCENT 17 % (BEAKER) (test code = 430) MONOCYTES RELATIVE PERCENT 8 % (BEAKER) (test code = 431) EOSINOPHILS RELATIVE PERCENT 2 % (BEAKER) (test code = 432) BASOPHILS RELATIVE PERCENT 1 % (BEAKER) (test code = 437) NEUTROPHILS ABSOLUTE COUNT 7.98 K/ L 1.78-5.38 H (BEAKER) (test code = 670) LYMPHOCYTES ABSOLUTE COUNT 1.92 K/ L 1.32-3.57 (BEAKER) (test code = 414) MONOCYTES ABSOLUTE COUNT (BEAKER) 0.86 K/ L 0.30-0.82 H (test code = 415) EOSINOPHILS ABSOLUTE COUNT 0.19 K/ L 0.04-0.54 (BEAKER) (test code = 416) BASOPHILS ABSOLUTE COUNT (BEAKER) 0.06 K/ L 0.01-0.08 (test code = 417) IMMATURE GRANULOCYTES-RELATIVE 1 % 0-1 PERCENT (BEAKER) (test code = 2801) U/S, RENAL, [id number] 00:34:00Reason for exam:->Right renal massShould this be performed at the bedside?->YesFINAL REPORT U/S, RENAL, COMPLETE CLINICAL INDICATION: Right renal mass COMPARISON: CT renal protocol May 2012 TECHNIQUE: The [...] interim compared to prior CT 2011. Signed: Ashley Mcleodeport Verified Date/Time: 11/14/2018 00:34:34 Reading Location: [facility] C013V Neuro Reading Room POCT-GLUCOSE [id number] 21:25:00 Test Item Value Reference Range Interpretation Comments POC-GLUCOSE METER 155 mg/dL 70-110 H TESTED AT [place] [address] ([facility]) (test code = UMESH [place] 1538) [address] POCT-GLUCOSE [id number] 17:31:00 Test Item Value Reference Range Interpretation Comments POC-GLUCOSE METER 144 mg/dL 70-110 H TESTED AT [place] [address] ([facility]) (test code = UM[place] 1538) [address] POCT-GLUCOSE [id number] 15:39:00 Test Item Value Reference Range Interpretation Comments POC-GLUCOSE METER 156 mg/dL 70-110 H TESTED AT [place] [address] ([facility]) (test code = UMESH Rick [facility] 1538) [address] POCT-GLUCOSE [id number] 12:28:00 Test Item Value Reference Range Interpretation Comments POC-GLUCOSE METER 162 mg/dL 70-110 H TESTED AT [place] [address] ([facility]) (test code = [place] 1538) [address] POCT-GLUCOSE [id number] 11:40:00 Test Item Value Reference Range Interpretation Comments POC-GLUCOSE METER 159 mg/dL 70-110 H TESTED AT [place] [address] ([facility]) (test code = UMESH [place] 1538) [address] HEMOGLOBIN [id number] 09:40:00 Test Item Value Reference Range Interpretation Comments HEMOGLOBIN A1C ([facility]) (test code = 6.5 % 4.3-6.1 H 368) POCT-GLUCOSE [id number] 08:19:00 Test Item Value Reference Range Interpretation Comments POC-GLUCOSE METER 162 mg/dL 70-110 H TESTED AT [place] [address] ([facility]) (test code = UMESH Rick [facility] 1538) [address] OSMOLALITY, [id number] 07:44:00 Test Item Value Reference Range Interpretation Comments OSMOLALITY URINE 381 mOsm/kg 40-1,400 This is a c orrected (BEAKER) (test code = result . Previous 614) result was 292 mOsm/kg on 11/13 at 0731 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 OSMOLALITY, [id number] 07:32:00 Test Item Value Reference Range Interpretation Comments OSMOLALITY, SERUM (BEAKER) (test 292 mOsm/kg 275-295 code = 615) CALCIUM, [id number] 07:20:00 Test Item Value Reference Range Interpretation Comments CALCIUM IONIZED (BEAKER) (test 1.11 mmol/L 1.12-1.27 L code = 698) PH, BLOOD (BEAKER) (test code = 7.44 1810) TSH/FREE T4 IF [id number] 06:26:00 Test Item Value Reference Range Interpretation Comments THYROID STIMULATING HORMONE 2.50 uIU/mL 0.35-4.94 (BEAKER) (test code = 772) TROPONIN [id number] 06:04:00 Test Item Value Reference Range Interpretation Comments TROPONIN I (BEAKER) (test code = 397) < ng/mL 0.00-0.03 Troponin I (TnI) levels [...] failure, acidosis, acute neurological disease, and persistent tachyarrhythmia.[id number] 06:02:00 Test Item Value Reference Range Interpretation Comments PHOSPHORUS (BEAKER) (test code = 2.7 mg/dL 2.3-4.7 604) [id number] 06:02:00 Test Item Value Reference Range Interpretation Comments MAGNESIUM (BEAKER) (test code = 2.3 mg/dL 1.6-2.6 627) COMPREHENSIVE METABOLIC [id number] 06:02:00 Test Item Value Reference Range Interpretation Comments TOTAL PROTEIN 6.9 gm/dL 6.0-8.3 (BEAKER) (test code = 770) ALBUMIN (BEAKER) 3.6 g/dL 3.5-5.0 (test code = 1145) ALKALINE PHOSPHATASE 77 U/L 40-150 (BEAKER) (test code = 346) BILIRUBIN TOTAL 0.4 mg/dL 0.2-1.2 (BEAKER) (test code = 377) SODIUM (BEAKER) (test 132 meq/L 136-145 L code = 381) POTASSIUM (BEAKER) 4.7 meq/L 3.5-5.1 (test code = 379) CHLORIDE (BEAKER) 102 meq/L 98-107 (test code = 382) CO2 (BEAKER) (test 22 meq/L 22-29 code = 355) BLOOD UREA NITROGEN 36 mg/dL 7-21 H (BEAKER) (test code = 354) CREATININE (BEAKER) 1.86 mg/dL 0.57-1.25 H (test code = 358) GLUCOSE RANDOM 144 mg/dL 70-105 H (BEAKER) (test code = 652) CALCIUM (BEAKER) 9.1 mg/dL 8.4-10.2 (test code = 697) AST (SGOT) (BEAKER) 9 U/L 5-34 (test code = 353) ALT (SGPT) (BEAKER) 10 U/L 6-55 (test code = 347) EGFR (BEAKER) (test 36 mL/min/1.73 ESTIMA ESTRELLA GFR IS code = 1092) sq m NOT ACCURATE CREATININE CLEARANCE IN PREDICTING GLOMERULAR FILTRATION RATE . ESTIMATED GFR I S NOT APPLICABLE FOR DIALYSIS PATIEN TS. CREATINE KINASE (CK)2018-11-13 06:02:00 Test Item Value Reference Range Interpretation Comments CREATINE KINASE TOTAL (BEAKER) (test 90 U/L 29-200 code = 380) URINALYSIS W/ [id number] 06:00:00 Test Item Value Reference Range Interpretation Comments COLOR (BEAKER) (test code = 470) Yellow CLARITY (BEAKER) (test code = 469) Hazy SPECIFIC GRAVITY UA (BEAKER) (test 1.010 1.001-1.035 code = 468) PH UA (BEAKER) (test code = 467) 5.5 5.0-8.0 PROTEIN UA (BEAKER) (test code = Negative Negative 464) GLUCOSE UA (BEAKER) (test code = Negative Negative 365) KETONES UA (BEAKER) (test code = Negative Negative 371) BILIRUBIN UA (BEAKER) (test code = Negative Negative 462) BLOOD UA (BEAKER) (test code = 461) Negative Negative NITRITE UA (BEAKER) (test code = Negative Negative 465) LEUKOCYTE ESTERASE UA (BEAKER) Large Negative A (test code = 466) UROBILINOGEN UA (BEAKER) (test code 0.2 mg/dL 0.2-1.0 = 463) RBC UA (BEAKER) (test code = 519) 1 /HPF WBC UA (BEAKER) (test code = 520) 66 /HPF BACTERIA (BEAKER) (test code = 517) Many SQUAMOUS EPITHELIAL (BEAKER) (test 1 /HPF code = 516) SOURCE(BEAKER) (test code = 2795) B-TYPE NATRIURETIC FACTOR (BNP)2018-11-13 05:58:00 Test Item Value Reference Range Interpretation Comments B-TYPE NATRIURETIC PEPTIDE (BEAKER) 88 pg/mL 0-100 (test code = 700) PROTHROMBIN [id number] 05:39:00 Test Item Value Reference Range Interpretation Comments PROTIME (BEAKER) (test code = 18.3 seconds 11.7-14.7 H 759) INR (BEAKER) (test code = 370) 1.5 <=5.9 RECOMMENDED COUMADIN/WARFARIN INR THERAPY RANGESSTANDARD DOSE: 2.0 - 3.0 Includes: PROPHYLAXIS forvenous thrombosis, systemic embolization; TREATMENT for venous thrombosis and/or pulmonary embolus.HIGH RISK: Target INR is 2.5-3.5 for patients with mechanical heart valves.CBC W/PLT COUNT & AUTO DIFFERENTIAL 2018-11-13 05:31:00 Test Item Value Reference Range Interpretation Comments WHITE BLOOD CELL COUNT (BEAKER) 11.8 K/ L 3.5-10.5 H (test code = 775) RED BLOOD CELL COUNT (BEAKER) 3.44 M/ L 4.63-6.08 L (test code = 761) HEMOGLOBIN (BEAKER) (test code = 8.5 GM/DL 13.7-17.5 L 410) HEMATOCRIT (BEAKER) (test code = 27.6 % 40.1-51.0 L 411) MEAN CORPUSCULAR VOLUME (BEAKER) 80.2 fL 79.0-92.2 (test code = 753) MEAN CORPUSCULAR HEMOGLOBIN 24.7 pg 25.7-32.2 L (BEAKER) (test code = 751) MEAN CORPUSCULAR HEMOGLOBIN CONC 30.8 GM/DL 32.3-36.5 L (BEAKER) (test code = 752) RED CELL DISTRIBUTION WIDTH 18.4 % 11.6-14.4 H (BEAKER) (test code = 412) PLATELET COUNT (BEAKER) (test 360 K/CU MM 150-450 code = 756) MEAN PLATELET VOLUME (BEAKER) 9.6 fL 9.4-12.4 (test code = 754) NUCLEATED RED BLOOD CELLS 0 /100 WBC 0-0 (BEAKER) (test code = 413) NEUTROPHILS RELATIVE PERCENT 66 % (BEAKER) (test code = 429) LYMPHOCYTES RELATIVE PERCENT 24 % (BEAKER) (test code = 430) MONOCYTES RELATIVE PERCENT 7 % (BEAKER) (test code = 431) EOSINOPHILS RELATIVE PERCENT 2 % (BEAKER) (test code = 432) BASOPHILS RELATIVE PERCENT 1 % (BEAKER) (test code = 437) NEUTROPHILS ABSOLUTE COUNT 7.75 K/ L 1.78-5.38 H (BEAKER) (test code = 670) LYMPHOCYTES ABSOLUTE COUNT 2.84 K/ L 1.32-3.57 (BEAKER) (test code = 414) MONOCYTES ABSOLUTE COUNT (BEAKER) 0.83 K/ L 0.30-0.82 H (test code = 415) EOSINOPHILS ABSOLUTE COUNT 0.23 K/ L 0.04-0.54 (BEAKER) (test code = 416) BASOPHILS ABSOLUTE COUNT (BEAKER) 0.06 K/ L 0.01-0.08 (test code = 417) IMMATURE GRANULOCYTES-RELATIVE 1 % 0-1 PERCENT (BEAKER) (test code = 2801) PROTEIN, RANDOM [id number] 03:02:00 Test Item Value Reference Range Interpretation Comments PROTEIN, URINE (BEAKER) (test code = < mg/dL 0-14 1569) CREATININE, RANDOM [id number] 02:56:00 Test Item Value Reference Range Interpretation Comments CREATININE URINE (BEAKER) (test 63.6 mg/dL code = 375) Reference Range: No NormalsSODIUM, RANDOM [id number] 02:56:00 Test Item Value Reference Range Interpretation Comments SODIUM URINE (BEAKER) (test code = 83 meq/L 243) Reference Range: No NormalsHEMOGLOBIN AND [id number] 01:12:00 Test Item Value Reference Range Interpretation Comments HEMOGLOBIN (BEAKER) (test code = 8.8 GM/DL 13.7-17.5 L 410) HEMATOCRIT (BEAKER) (test code = 28.1 % 40.1-51.0 L 411) POCT-GLUCOSE [id number] 21:32:00 Test Item Value Reference Range Interpretation Comments POC-GLUCOSE METER 142 mg/dL 70-110 H TESTED AT [place] [address] (BEAKER) (test code = [facility] [place] 1538) [address] POCT-GLUCOSE [id number] 16:46:00 Test Item Value Reference Range Interpretation Comments POC-GLUCOSE METER 134 mg/dL 70-110 H TESTED AT [place] [address] (BEAKER) (test code = [facility] [place] 1538) [address] HEMOGLOBIN AND [id number] 16:15:00 Test Item Value Reference Range Interpretation Comments HEMOGLOBIN (BEAKER) (test code = 8.8 GM/DL 13.7-17.5 L 410) HEMATOCRIT (BEAKER) (test code = 28.4 % 40.1-51.0 L 411) POCT-GLUCOSE [id number] 13:55:00 Test Item Value Reference Range Interpretation Comments POC-GLUCOSE METER 199 mg/dL 70-110 H TESTED AT [place] [address] (BEAKER) (test code = [facility] [place] 1538) [address] HEMOGLOBIN AND [id number] 12:41:00 Test Item Value Reference Range Interpretation Comments HEMOGLOBIN (BEAKER) (test code = 8.5 GM/DL 13.7-17.5 L 410) HEMATOCRIT (BEAKER) (test code = 28.1 % 40.1-51.0 L 411) [id number] 04:05:00 Test Item Value Reference Range Interpretation Comments FERRITIN (BEAKER) (test code = 361) 40 ng/mL 5-275 IRON, TIBC, % SAT. (WITHOUT FERRITIN)2018-11-12 03:43:00 Test Item Value Reference Range Interpretation Comments IRON (BEAKER) (test code = 547) 51.0 ug/dL 40.0-160.0 TOTAL IRON BINDING CAPACITY 374 ug/dL 250-450 (BEAKER) (test code = 769) IRON % SATURATION (2) (BEAKER) 14 % 20-55 L (test code = 2590) RETICULOCYTE [id number] 03:41:00 Test Item Value Reference Range Interpretation Comments RETICULOCYTE COUNT PCT (BEAKER) (test 2.8 % 0.5-1.8 H code = 575) URINALYSIS W/ REFLEX URINE [id number] 03:33:00 Test Item Value Reference Range Interpretation Comments COLOR (BEAKER) (test code = 470) Light Yellow CLARITY (BEAKER) (test code = Clear 469) SPECIFIC GRAVITY UA (BEAKER) 1.005 1.001-1.035 (test code = 468) PH UA (BEAKER) (test code = 467) 5.5 5.0-8.0 PROTEIN UA (BEAKER) (test code = Negative Negative 464) GLUCOSE UA (BEAKER) (test code = Negative Negative 365) KETONES UA (BEAKER) (test code = Negative Negative 371) BILIRUBIN UA (BEAKER) (test code Negative Negative = 462) BLOOD UA (BEAKER) (test code = Negative Negative 461) NITRITE UA (BEAKER) (test code = Negative Negative 465) LEUKOCYTE ESTERASE UA (BEAKER) Small Negative A (test code = 466) UROBILINOGEN UA (BEAKER) (test 0.2 mg/dL 0.2-1.0 code = 463) RBC UA (BEAKER) (test code = 1 /HPF 519) WBC UA (BEAKER) (test code = 10 /HPF 520) SQUAMOUS EPITHELIAL (BEAKER) < /HPF (test code = 516) HYALINE CASTS (BEAKER) (test 1 /LPF code = 514) CRYSTALS, URINE (BEAKER) (test Rare code = 1521) AMORPHOUS CRYSTALS (BEAKER) Occasional (test code = 1584) SOURCE(BEAKER) (test code = 7695) COMPREHENSIVE METABOLIC [id number] 01:37:00 Test Item Value Reference Range Interpretation Comments TOTAL PROTEIN 7.2 gm/dL 6.0-8.3 Specimen sligh tly (BEAKER) (test code = hemoly zed 770) ALBUMIN (BEAKER) 3.8 g/dL 3.5-5.0 Specimen sl ightly (test code = 1145) hemolyzed ALKALINE PHOSPHATASE 82 U/L 40-150 (BEAKER) (test code = 346) BILIRUBIN TOTAL 0.5 mg/dL 0.2-1.2 Specimen sli ghtly (BEAKER) (test code = hemoly zed 377) SODIUM (BEAKER) (test 128 meq/L 136-145 L code = 381) POTASSIUM (BEAKER) 5.1 meq/L 3.5-5.1 Specimen slightly (test code = 379) hemolyzed CHLORIDE (BEAKER) 99 meq/L 98-107 (test code = 382) CO2 (BEAKER) (test 19 meq/L 22-29 L code = 355) BLOOD UREA NITROGEN 36 mg/dL 7-21 H (BEAKER) (test code = 354) CREATININE (BEAKER) 1.86 mg/dL 0.57-1.25 H Specimen slightly (test code = 358) hemolyzed GLUCOSE RANDOM 117 mg/dL 70-105 H (BEAKER) (test code = 652) CALCIUM (BEAKER) 9.0 mg/dL 8.4-10.2 (test code = 697) AST (SGOT) (BEAKER) 13 U/L 5-34 Specimen slightly (test code = 353) hemolyzed ALT (SGPT) (BEAKER) 10 U/L 6-55 Specimen slightly (test code = 347) hemolyzed EGFR (BEAKER) (test 36 mL/min/1.73 ESTIMA ESTRELLA GFR IS code = 1092) sq m NOT ACCURATE CREATININE CLEARANCE IN PREDICTING GLOMERULAR FILTRATION RATE . ESTIMATED GFR I S NOT APPLICABLE FOR DIALYSIS PATIEN TS. PROTHROMBIN [id number] 01:05:00 Test Item Value Reference Range Interpretation Comments PROTIME (BEAKER) (test code = 18.4 seconds 11.7-14.7 H 759) INR (BEAKER) (test code = 370) 1.5 <=5.9 RECOMMENDED COUMADIN/WARFARIN INR THERAPY RANGESSTANDARD DOSE: 2.0 - 3.0 Includes: PROPHYLAXIS forvenous thrombosis, systemic embolization; TREATMENT for venous thrombosis and/or pulmonary embolus.HIGH RISK: Target INR is 2.5-3.5 for patients with mechanical heart valves.CBC W/PLT COUNT & AUTO DIFFERENTIAL 2018-11-12 00:57:00 Test Item Value Reference Range Interpretation Comments WHITE BLOOD CELL COUNT (BEAKER) 10.3 K/ L 3.5-10.5 (test code = 775) RED BLOOD CELL COUNT (BEAKER) 3.37 M/ L 4.63-6.08 L (test code = 761) HEMOGLOBIN (BEAKER) (test code = 8.4 GM/DL 13.7-17.5 L 410) HEMATOCRIT (BEAKER) (test code = 26.9 % 40.1-51.0 L 411) MEAN CORPUSCULAR VOLUME (BEAKER) 79.8 fL 79.0-92.2 (test code = 753) MEAN CORPUSCULAR HEMOGLOBIN 24.9 pg 25.7-32.2 L (BEAKER) (test code = 751) MEAN CORPUSCULAR HEMOGLOBIN CONC 31.2 GM/DL 32.3-36.5 L (BEAKER) (test code = 752) RED CELL DISTRIBUTION WIDTH 18.0 % 11.6-14.4 H (BEAKER) (test code = 412) PLATELET COUNT (BEAKER) (test 334 K/CU MM 150-450 code = 756) MEAN PLATELET VOLUME (BEAKER) 9.3 fL 9.4-12.4 L (test code = 754) NUCLEATED RED BLOOD CELLS 0 /100 WBC 0-0 (BEAKER) (test code = 413) NEUTROPHILS RELATIVE PERCENT 61 % (BEAKER) (test code = 429) LYMPHOCYTES RELATIVE PERCENT 27 % (BEAKER) (test code = 430) MONOCYTES RELATIVE PERCENT 8 % (BEAKER) (test code = 431) EOSINOPHILS RELATIVE PERCENT 3 % (BEAKER) (test code = 432) BASOPHILS RELATIVE PERCENT 1 % (BEAKER) (test code = 437) NEUTROPHILS ABSOLUTE COUNT 6.30 K/ L 1.78-5.38 H (BEAKER) (test code = 670) LYMPHOCYTES ABSOLUTE COUNT 2.73 K/ L 1.32-3.57 (BEAKER) (test code = 414) MONOCYTES ABSOLUTE COUNT (BEAKER) 0.85 K/ L 0.30-0.82 H (test code = 415) EOSINOPHILS ABSOLUTE COUNT 0.30 K/ L 0.04-0.54 (BEAKER) (test code = 416) BASOPHILS ABSOLUTE COUNT (BEAKER) 0.05 K/ L 0.01-0.08 (test code = 417) IMMATURE GRANULOCYTES-RELATIVE 1 % 0-1 PERCENT (BEAKER) (test code = 2801) POCT-GLUCOSE [id number] 21:06:00 Test Item Value Reference Range Interpretation Comments POC-GLUCOSE METER 138 mg/dL 70-[address] [facility] (MATTHEW) (test code = UMESH [place] 1538) [address] CHEM [id number] [facility] [id number] 11:07:002.7 [facility] [id number] 11:07:0025[facility] PANEL 2018-10-15 11:07:003.4[facility] [id number] 11:07:05557Aikcwqbc HermannCHEM [id number] 11:07:0021[facility] [id number] 11:07:06719Zlipajap [facility]annCHEM [id number] 11:07:008.1[facility] [id number] 11:07:0014.4[facility] [id number] 11:07:0046 [facility] [id number] 11:07:002.43[facility]annCHE[facility] PANEL 2018-10-15 11:07:20045Aucvghod RdojgumLOZELNKAUI8002-45-64 11:07:0067.3[facility] AdhijvhLCIMTFZTLB9351-87-06 11:07:0017.8[facility] QnqsifvJRWJYLBSDO0464-23-78 11:07:009.5[facility] OdqbvrcHDNKXAPSQJ0188-47-14 11:07:000.8[facility] Chriss VDGJKXEVIU9171-85-61 11:07:000.1[facility] JpbobreNOHENWEWBL1156-74-95 11:07:000.3 [facility] YtqmohqCDMWTJFZQD1025-16-53 11:07:004.0[facility]annHEMATOLOGY 2018-10-15 11:07:001.4[facility] HcxpdwlZMBDFAYRJS1774-52-28 11:07:001.4[facility] ZuksfqrNZZYENFXXH1658-31-48 11:07:005.4[facility] FvsufelNIFKOKJAOZ2054-67-68 11:07:001+ *ABN*(10/15/18 5:07 AM)[facility] XasankhLNNKLFQLXF1351-14-17 11:07:00 2.96[facility] NwrkhhdNXGAZXFDSW3189-35-80 11:07:0022.6[facility]annHEMATOLOGY 2018-10-15 11:07:007.5[facility] EpcbtzjVSILCTBVYM5556-58-17 11:07:0017.9[facility] VjqfygvMPIVSTUNRB6778-72-55 11:07:0076.3[facility] YciugpxRUSIATMALI5214-08-60 11:07:0033.1[facility] ThccwtlSPUCWJOVID1799-24-29 11:07:00 Test Item Value Reference Range Interpretation Comments MCH (test code = MCH) 25.2 pg 27.0-31.0 [facility] UdfyvelYHGBYKQSKJ7845-82-83 11:07:008.2[facility]annHEMATOLOGY 2018-10-15 11:07:03224Wqktxyzb YjmyvytFSUKTMXIZM4453-94-61 11:07:008.1[facility]annCHEM KGBSD4981-70-67 22:01:0014[facility]annCHE[facility] TIAYN5898-99-32 22:01:0015.7[facility]annCHE[facility] UDFIJ2424-13-99 22:01:008.4[facility]annCHE[facility] HCUUE0719-76-09 22:01:0057[facility]annCHE[facility] GCVIS7787-60-67 22:01:54877 [facility] VTKQX6764-58-67 22:01:38195Bhmmtwvm HermannCHEM PANEL 2018-10-14 22:01:003.7[facility]annCHE[facility] LNWME2703-18-62 22:01:003.89[facility]annCHE[facility] YFNER7047-12-56 22:01:0021[facility]annCHEM QDAYM8446-83-68 22:01:08687Pozgcykx QgmspvuTMOLGBRYRP6809-70-11 22:01:000.7[facility]annUR[facility] AND CAEMB0651-97-93 17:43:0015[facility] AND NWWXH5331-93-03 17:43:00 53[facility] IZHUW9024-96-99 17:43:002.0[facility] MDMTI6980-52-27 17:43:00Negative (10/14/18 11:43 AM)[facility] ULRBT5336-33-00 17:43:00Moderate *ABN*(10/14/18 11:43 AM)[facility] [id number] 17:43:0021[facility] [id number] 17:43:00 Test Item Value Reference Range Interpretation Comments UA Spec Grav (test code = UA Spec 1.019 1 Grav) [facility] [id number] 17:43:00 Test Item Value Reference Range Interpretation Comments UA pH (test code = UA pH) 5.5 1 5.0-8.0 [facility] [id number] 17:43:00Negative *NA*(10/14/18 11:43 AM)[facility] [id number] 17:43:00Moderate *ABN*(10/14/18 11:43 AM)[facility] [id number] 17:43:00Yellow *NA*(10/14/18 11:43 AM)[facility] IZGAG0396-52-23 17:43:00Slight *ABN*(10/14/18 11:43 AM)[facility] SFGU2104-71-03 17:43:09989Gbuiyxyr [facility]annURINE WPWG8535-55-48 17:43:77475.00[facility] BFQS3257-03-59 17:43:0010 [facility] LGNQ9896-64-21 17:43:0044.6[facility] CHEM 2018-10-14 17:43:0027[facility]annCHEM DEJUL9801-26-26 10:03:002.6[facility]annCHE[facility] WHXQI8356-70-44 10:03:003.8[facility]annCHE[facility] NONOL6355-86-09 10:03:0013[facility] LYFJI5915-85-81 10:03:003.1[facility]annCHE[facility] VIJGK3205-49-67 10:03:18788Tbxlhmtt HermannCHEM YJLPL5540-17-42 10:03:34728 [facility] KKVMR3031-28-85 10:03:0055[facility]annCHE[facility] PANEL 2018-10-14 10:03:004.28[facility]annCHE[facility] JEBDT3922-29-14 10:03:27552Skmpckof HermannCHEM NXTXV3524-89-35 10:03:0019[facility]annCHE[facility] GCSSY0651-32-51 10:03:008.4[facility]annCHE[facility] KUSNR0190-62-01 10:03:0016.1[facility] DREJIPCTEM5594-27-68 10:03:001+ *ABN*(10/14/18 4:03 AM)[facility]annHEMATOLOGY 2018-10-14 10:03:000.1[facility] OzyorriEZTHTSIFCI4798-44-16 10:03:007.8[facility] AargkrtCUQWKIIXHZ1493-78-42 10:03:001.2[facility] QzvbgcsSLGUWYLGNK9594-27-37 10:03:003.1[facility] ZltdshgORSSEKBZCS6465-49-78 10:03:008.8[facility] CPBCNERJCS8953-34-93 10:03:0018.9[facility] EwcdtvzVZEXYRGAUR9355-34-45 10:03:00 68.0[facility] PhmubuvBWUQUTOSMP7257-05-94 10:03:000.4[facility]annHEMATOLOGY 2018-10-14 10:03:001.0[facility] CymxhzjSFUBFHQSCV9053-45-18 10:03:002.2[facility] EarxvfoLHMAMPQHJQ0264-50-86 10:03:008.2[facility] UifjrdbXDOHJKOYKJ7487-73-83 10:03:24537Ufvwylbb LvwhlbrZGHMOOZEOW4841-85-76 10:03:0017.5[facility] ORQJIASPEY3368-38-63 10:03:00 Test Item Value Reference Range Interpretation Comments MCH (test code = MCH) 24.1 pg 27.0-31.0 [facility] DceccmhFEVTKHHMXX4255-49-48 10:03:0075.9[facility]annHEMATOLOGY 2018-10-14 10:03:008.2[facility] XkojogdLPFLJXBFHR7001-50-56 10:03:0025.9[facility] LbfiolwMZMWNKENDO0569-91-00 10:03:0011.5[facility] UhrnclnTBGAEPMBGH1599-51-57 10:03:003.41[facility] KireoupCNVBAOWYUJ7346-02-92 10:03:0031.8[facility] URINE ZGIA7811-01-53 14:22:06065.00[facility] OZVJ1608-53-70 14:22:00 47[facility] DROB1335-87-65 14:22:85493Xqspcjaz HermannCARDIAC UAEESZY6224-28-52 06:40:14651Vlkmszqi HermannCARDIAC EAQEQGJ7726-87-53 06:40:00 6803[facility] ZaozyydRFLPVLHTQE3193-89-35 06:40:001.0[facility]annHEMATOLOGY 2018-10-13 06:40:000.3[facility] BobccltYJQWTVRYCS5021-72-52 06:40:002.6[facility] CiikavwTTWBZVQTWB2855-94-94 06:40:001.1[facility] NqcxkerBXLJKTTDVC8589-63-81 06:40:006.5[facility] WsdrnsaUBIUYHATKA2115-49-28 06:40:000.1[facility] ZNSJZXVLJJ7508-07-37 06:40:001+ *ABN*(10/13/18 12:40 AM)[facility] NADEDWQGBW3347-00-97 06:40:002.7[facility] UbqwipdFVARURWEGU1438-14-47 06:40:009.4 [facility] CchnjbhTRERVUVHVQ2548-42-11 06:40:0024.9[facility]annHEMATOLOGY 2018-10-13 06:40:0061.9[facility] JxbladsYTBRGFQIRL7011-37-85 06:40:0027.8[facility] XohzcugMWKRTWRXLG1687-04-56 06:40:0075.7[facility] NwrbujgSZJODYYSMY9210-66-21 06:40:0017.3[facility] VviyiskQXYXWWNNVF9581-78-28 06:40:0032.5[facility] QKKEJPKBNJ1049-99-58 06:40:008.1[facility] BvtufcrOSYBXPBECL6190-18-66 06:40:16815 [facility] OlvphrqVEKCKEMOGY9470-43-78 06:40:00 Test Item Value Reference Range Interpretation Comments MCH (test code = MCH) 24.6 pg 27.0-31.0 [facility] QnxpzyzBKFCNPDKTE2462-61-62 06:40:009.0[facility]annHEMATOLOGY 2018-10-13 06:40:003.67[facility] ZbcnmcbVYXXWQXNSG2566-12-24 06:40:0010.5[facility]annCHEM SJOXS7007-83-67 06:21:003.9[facility]annCHEM DGFAN7814-59-05 06:21:002.3[facility]annCARDIAC ZMADVWL3662-13-34 06:07:68149Bszmgvuj [place] CARDIAC OZQMORH7853-67-36 06:07:001051Vrnhghqv HermannPARATHYROID PROFILE 2018-10-11 06:07:001.08[facility]annPARATHYROID EMCMYLS5098-69-22 06:07:00 1.08[facility]annCARDIAC KVHZTGW6388-30-62 06:50:00406Gkrzpogk HermannCARDIAC MLSKSFU9010-19-77 06:50:890487Kgkswuzw RetxuaaVHYDLDEXUJ9367-93-48 06:50:001.4 [facility] LvlfiiwIUKYVSOSAW3446-48-80 12:25:541.6[facility]annHEMATOLOGY 2018-10-05 18:45:00>4.00[facility]annCHEM BQPVT9321-36-16 16:07:87903 [facility] EaefytpQXPJCQVKWE6679-68-19 16:07:000.0[facility]annHEMATOLOGY 2018-10-05 16:07:00 Test Item Value Reference Range Interpretation Comments K-time Rapid (test code = K-time 0.8 min 0.6-2.3 Rapid) [facility] TlegipcOFPXYDXVUM8548-77-67 16:07:00 Test Item Value Reference Range Interpretation Comments R-time Rapid (test code = R-time 0.7 min 0.4-0.7 Rapid) [facility] NmkvgxmIYGZUCFTMN4752-97-48 16:07:0013.3[facility]annHEMATOLOGY 2018-10-05 16:07:00 Test Item Value Reference Range Interpretation Comments Max Amplitude Rapid (test code = Max 73 mm 52-71 Amplitude Rapid) [facility] MtgywlwXJRUJTXFII3871-36-28 16:07:00 Test Item Value Reference Range Interpretation Comments Angle Rapid (test code = Angle 79 degrees 64-80 Rapid) [facility] BxwweslNIBNPTOHWO1074-71-66 16:07:00 Test Item Value Reference Range Interpretation Comments ACT (TEG) Rapid (test code = ACT (TEG) 113 s 86-118 Rapid) [facility] LpearmwKXMIABRQAO4695-22-46 16:07:00 Test Item Value Reference Range Interpretation Comments Split Point Rapid (test code = Split 0.6 min Point Rapid) [facility]annTUMOR CFECVGJ5710-44-02 16:07:002.4[facility]annTUMOR MARKERS 2018-10-05 16:07:001.1[facility]annURINE XHBJ8521-75-86 16:07:99205Ddqizrqk HermannURINE OZTF8468-06-32 16:07:009.4[facility]annURINE PEMZ7191-69-71 16:07:0057[facility] DUEC8855-85-17 16:07:0040[facility]URINE TPXN3660-03-62 16:07:0027.80[facility]annBLOOD BANK GPGMPTG2372-96-79 15:51:00Product available (10/05/18 9:51 AM)[facility]ANK RESULTS 2018-10-05 11:20:00Negative (10/05/18 5:20 AM)[facility]annCHEM IFMNE3431-13-07 11:20:001.4[facility]annURINE AND VSOBM9444-74-95 09:12:280-2 (10/05/18 3:12 AM)[facility] FNNRX0195-06-82 09:12:28 Test Item Value Reference Range Interpretation Comments UA Spec Grav (test code = UA Spec 1.015 1 Grav) [facility] [id number] 09:12:28 Test Item Value Reference Range Interpretation Comments UA pH (test code = UA pH) 6.0 1 5.0-8.0 [facility] [id number] 09:12:28Yellow *NA*(10/05/18 3:12 AM) [facility] [id number] 09:12:28Negative (10/05/18 3:12 AM) [facility] [id number] 09:12:28Negative *NA*(10/05/18 3:12 AM) [facility] NPDIM1179-28-91 09:12:28Negative (10/05/18 3:12 AM) [facility] ZDUXL4112-26-90 09:12:28Slight Cloudy (10/05/18 3:12 AM) [facility] UVMJZ2057-44-71 09:12:280.2[facility] AND JNKIH6988-50-08 09:12:28Negative (10/05/18 3:12 AM)[facility] STOOL 2018-10-05 09:12:28Negative *NA*(10/05/18 3:12 AM)[facility] STOOL 2018-10-05 09:12:28Negative (10/05/18 3:12 AM)[facility] STOOL 2018-10-05 09:12:28Trace *ABN*(10/05/18 3:12 AM)[facility] 2018-10-05 09:08:00Product available (10/05/18 3:08 AM)[facility] [id number] 06:22:00Negative (10/05/18 12:22 AM)[facility]annCARDIAC WIXCIDV6912-45-92 06:22:000.03[facility]annCARDIAC IIBEPVJ0183-32-03 06:22:00 205[facility]annCHEM SRPIV6864-75-99 06:22:001.62[facility]annCHEM PANEL 2018-10-05 06:22:0020[facility]annCHEM WPYVC0280-82-14 06:22:0020[facility]annCHEM JFQYO2046-35-57 06:22:0084[facility]annCHEM FGCGL7725-25-99 06:22:000.3[facility]annCHEM XAHMH2988-64-18 06:22:006.3[facility]annCHEM MOWLF5102-76-93 06:22:003.0[facility] HermannCHEM EHSWH2672-64-49 06:22:00 Test Item Value Reference Range Interpretation Comments B/C Ratio (test code = B/C Ratio) 18 1 6-25 [facility] HermannCHEM [id number] 06:22:00 Test Item Value Reference Range Interpretation Comments A/G Ratio (test code = A/G Ratio) 0.9 [address] 0[address] [facility] GCFMM6437-19-02 06:22:003.3[facility]annCHEM PANEL 2018-10-05 06:22:001.4[facility] QtjksmsMPFTDKOKCV7109-94-19 05:58:00Normal (10/04/18 11:58 PM)[facility]hribdyWUAFFEDCJI0812-59-63 05:58:00 Test Item Value Reference Range Interpretation Comments PTT (test code = PTT) 52.7 s 22.9-35.8 [facility] CenterBbotpbtJMDPIPAPFL2674-23-83 05:58:00 Test Item Value Reference Range Interpretation Comments INR (test code = INR) 1.60 1 0.85-1.17 [facility] CenterViiirofLTZCPJCJWR1235-85-44 05:58:00 Test Item Value Reference Range Interpretation Comments PT (test code = PT) 18.7 s 12.0-14.7 [facility] CenterBASIC METABOLIC [id number] 08:06:00 Test Item Value Reference Range Interpretation Comments SODIUM (BEAKER) 140 meq/L 136-145 (test code = 381) POTASSIUM (BEAKER) 3.7 meq/L 3.5-5.1 (test code = 379) CHLORIDE (BEAKER) 106 meq/L 98-107 (test code = 382) CO2 (BEAKER) (test 26 meq/L 22-29 code = 355) BLOOD UREA NITROGEN 18 mg/dL 7-21 (BEAKER) (test code = 354) CREATININE (BEAKER) 0.93 mg/dL 0.57-1.25 (test code = 358) GLUCOSE RANDOM 118 mg/dL 70-105 H (BEAKER) (test code = 652) CALCIUM (BEAKER) 9.0 mg/dL 8.4-10.2 (test code = 697) EGFR (BEAKER) (test 79 mL/min/1.73 ESTIMA ESTRELLA GFR IS code = 1092) sq m NOT ACCURATE CREATININE CLEARANCE IN PREDICTING GLOMERULAR FILTRATION RATE . ESTIMATED GFR I S NOT APPLICABLE FOR DIALYSIS PATIEN TS. CBC W/PLT COUNT & AUTO [id number] 07:34:00 Test Item Value Reference Range Interpretation Comments WHITE BLOOD CELL COUNT (BEAKER) 9.9 K/ L 3.5-10.5 (test code = 775) RED BLOOD CELL COUNT (BEAKER) 3.81 M/ L 4.63-6.08 L (test code = 761) HEMOGLOBIN (BEAKER) (test code = 10.6 GM/DL 13.7-17.5 L 410) HEMATOCRIT (BEAKER) (test code = 32.7 % 40.1-51.0 L 411) MEAN CORPUSCULAR VOLUME (BEAKER) 85.8 fL 79.0-92.2 (test code = 753) MEAN CORPUSCULAR HEMOGLOBIN 27.8 pg 25.7-32.2 (BEAKER) (test code = 751) MEAN CORPUSCULAR HEMOGLOBIN CONC 32.4 GM/DL 32.3-36.5 (BEAKER) (test code = 752) RED CELL DISTRIBUTION WIDTH 16.5 % 11.6-14.4 H (BEAKER) (test code = 412) PLATELET COUNT (BEAKER) (test 233 K/CU MM 150-450 code = 756) MEAN PLATELET VOLUME (BEAKER) 10.2 fL 9.4-12.4 (test code = 754) NUCLEATED RED BLOOD CELLS 0 /100 WBC 0-0 (BEAKER) (test code = 413) NEUTROPHILS RELATIVE PERCENT 62 % (BEAKER) (test code = 429) LYMPHOCYTES RELATIVE PERCENT 26 % (BEAKER) (test code = 430) MONOCYTES RELATIVE PERCENT 7 % (BEAKER) (test code = 431) EOSINOPHILS RELATIVE PERCENT 3 % (BEAKER) (test code = 432) BASOPHILS RELATIVE PERCENT 0 % (BEAKER) (test code = 437) NEUTROPHILS ABSOLUTE COUNT 6.11 K/ L 1.78-5.38 H (BEAKER) (test code = 670) LYMPHOCYTES ABSOLUTE COUNT 2.59 K/ L 1.32-3.57 (BEAKER) (test code = 414) MONOCYTES ABSOLUTE COUNT (BEAKER) 0.73 K/ L 0.30-0.82 (test code = 415) EOSINOPHILS ABSOLUTE COUNT 0.34 K/ L 0.04-0.54 (BEAKER) (test code = 416) BASOPHILS ABSOLUTE COUNT (BEAKER) 0.04 K/ L 0.01-0.08 (test code = 417) IMMATURE GRANULOCYTES-RELATIVE 1 % 0-1 PERCENT (BEAKER) (test code = 2801) CHEM OCMST5059-96-77 09:13:0034[facility] HermannCHEM JCVYG6964-22-37 09:13:39817 [facility]annCHEM CNCFI9989-09-54 09:13:0061[facility] HermannCHEM PANEL 2016-01-11 09:13:009.0[facility] HermannCHEM MVSUU1869-43-89 09:13:0011.7[facility] HermannCHEM QABRN0414-29-04 09:13:34099Lfvvcopo HermannCHEM ZPRGX8992-26-26 09:13:001.18[facility] HermannCHEM TIBHE1727-55-55 09:13:23901Ajjpvlry HermannCHEM ZXHIO3850-70-41 09:13:003.7[facility] HermannCHEM JCJUG8326-92-86 09:13:0025 [facility] WbyhntkOBKZLJURIH4199-61-42 09:13:008.8[facility]annHEMATOLOGY 2016-01-11 09:13:0018.1[facility] XabmiztMCIBVHMVBC5959-34-45 09:13:00 Test Item Value Reference Range Interpretation Comments MCH (test code = MCH) 26.2 pg 27.0-31.0 [facility] TxbnokpUTIFRYYWPX3208-19-21 09:13:0032.6[facility]annHEMATOLOGY 2016-01-11 09:13:47135Lnyumftk XydkaovCFQXFYLEUL5120-61-97 09:13:0032.4[facility] AklcnqnFBMUTKBOXW2720-88-64 09:13:0010.6[facility] IoyoolgLIRSSMSLWN1362-33-52 09:13:0080.4[facility] DvqtqjnUTWPGVWMRU9916-65-47 09:13:004.03[facility] GCBDKFAUPZ9882-49-27 09:13:0022.3[facility] IrmatnqCAZSCRDTAC7011-79-12 11:58:00 Test Item Value Reference Range Interpretation Comments MCH (test code = MCH) 26.4 pg 27.0-31.0 [facility] LcqmgvoOWYSVSHBZZ6252-88-83 11:58:0032.5[facility]annHEMATOLOGY 2016-01-10 11:58:0081.2[facility] PlgfsldUFERXHBJYI4034-10-89 11:58:51771Gpezptok PbfgtokLRERROAJPG8522-62-56 11:58:008.3[facility] XxtfmfqKPCWPGJDHQ5348-59-30 11:58:0018.1[facility] QircrsdCHDJJOZOZA1410-29-96 11:58:0015.8[facility] ZBPUFHULHA9661-38-65 11:58:004.13[facility] JwghtqgJNYNBENLGB1164-89-94 11:58:00 33.5[facility] ItjsuwjKDYQFRPKFG1010-83-92 11:58:0010.9[facility] YXQQCTHMFQEQ9894-71-23 10:08:009.9[facility] XnrvfxyVKCXLNWUNDQN4982-02-99 10:08:0065[facility] GqbcesuMMWJICQELMSI1683-74-39 10:08:008.6[facility] AJEAJXNBOVTM5309-55-47 10:08:82447Bztblkix KpsawoqMCDQMYHWIUWA9069-39-30 10:08:0023[facility] DoimtihACDEKTCJHZRF9096-15-40 10:08:001.12[facility] RGMENLIUKVLS2238-79-58 10:08:43203Qswmdbfy SohuceoHFZVTWBEAITS4391-86-32 10:08:003.9[facility] LoaxfguWZFHRTHASSHM0232-54-81 10:08:13478Kxaappxg [place] LCCFAMHNWZDP1070-62-92 10:08:0026[facility] HermannVIRAL - SEZYBRQX8864-87-58 10:04:00Negative (01/10/16 5:04 AM)[facility]annVIRAL - DEIGRIJN4162-57-70 10:04:00Negative (01/10/16 5:04 AM)[facility] HermannCHEM GPPYD0730-72-64 12:06:00 56[facility] HermannCHEM GCVUU6516-94-74 12:06:001.28[facility]annHEMATOLOGY 2016-01-09 12:06:00 Test Item Value Reference Range Interpretation Comments PTT (test code = PTT) 49.7 s 22.9-35.8 [facility] BrtfgeaAQNSTZMRNK6221-34-91 12:06:70801Kescmnsc HermannCHEM PANEL 2016-01-09 12:02:000.32[facility] HermannVIRAL - XSGIYZJH3933-36-88 09:21:00 Negative (01/09/16 4:21 AM)[facility] HermannVIRAL - OPJCTEAK3006-32-34 09:21:00 Negative (01/09/16 4:21 AM)[facility] HermannCHEM UDNKJ9725-88-92 06:56:000.9 [facility]annCARDIAC AKAYXMI9767-79-84 06:53:000.07[facility]annCARDIAC NCJKVFZ8671-31-03 06:53:000.9[facility] HermannCARDIAC PJVPUPC9481-62-49 06:53:00 122[facility] HermannCARDIAC FCVGDGY9631-98-07 06:53:85159Frlxqamy HermannCARDIAC DTIOWFX1199-31-67 06:53:000.7[facility] HermannCHEM JWVGP2852-00-60 06:53:12247 [facility]annCHEM LTOJA5960-39-03 06:53:0020[facility] HermannCHEM PANEL 2016-01-09 06:53:004.2[facility] HermannCHEM MZWJC8923-76-19 06:53:62140Swjllpaf HermannCHEM VJVPA4687-26-14 06:53:000.8[facility] HermannCHEM TCHSR8543-45-36 06:53:004.3[facility] HermannCHEM DICSO5677-83-33 06:53:0015[facility] HermannCHEM OTBGO0025-68-48 06:53:000.9[facility] HermannCHEM JNZUY5717-60-50 06:53:60827 [facility] HermannCHEM XYFER9238-66-84 06:53:009[facility] HermannCHEM PANEL 2016-01-09 06:53:0026[facility] HermannCHEM NPAUO8428-64-50 06:53:0011.2[facility] HermannCHEM ZWGCB0836-47-05 06:53:009.0[facility] HermannCHEM CBIAL8557-34-53 06:53:0027[facility] HermannCHEM JVJHI6931-94-63 06:53:57577Ngxhhdto HermannCHEM MDCMO9135-06-46 06:53:007.7[facility] HermannCHEM LFYCO1230-03-98 06:53:003.4 [facility] XyuhbxmLJZIPJFOBE6011-64-00 06:53:0081.3[facility]annHEMATOLOGY 2016-01-09 06:53:0032.4[facility] UmlpctwFDKDEEWPII2846-99-07 06:53:00 Test Item Value Reference Range Interpretation Comments MCH (test code = MCH) 26.4 pg 27.0-31.0 [facility] VhjuslzHFKJFHOGTZ2374-29-58 06:53:0018.3[facility] HermannHEMATOLOGY 2016-01-09 06:53:008.2[facility] TlbqyghNFOJJTVAUB3772-13-76 06:53:004.33[facility] XbszwarHZINABMXKN2211-51-62 06:53:0019.3[facility] EcdyyqcIXGZQSZTVG8168-16-61 06:53:0011.4[facility] CcskiwtHCCLBUAAHA3308-49-62 06:53:0035.2[facility] SNNQQLBDFK0485-44-52 06:53:000.4[facility] XbwvadoACPYTCVGXJ4880-95-15 06:53:000.1 [facility] ExfwukrHWIUGBDPBY9141-16-08 06:53:001.7[facility] HermannHEMATOLOGY 2016-01-09 06:53:0015.2[facility] JlorjvhRNSWPGQDJC8065-41-73 06:53:002.3[facility] HtpoeedUUCAGABWDA5259-64-23 06:53:000.1[facility] OerbspnPJABTTXDPU9670-85-38 06:53:0078.5[facility] JdgjxxnSVDYOTHKHI9560-20-21 06:53:009.1[facility] QHPDOHSEDJ5654-39-91 06:53:0011.9[facility]
[2020-09-29 13:08] LABS: Absolute Lymphocytes (CBC) 1.2 K/uL (0.7-4.9); Basophils % 0.4 % (0-1.3); Hematocrit 28.6 % (39.6-49.0); Lymphocytes % 14.9 % (15.3-44.8); MPV 7.5 fL (7.6-11.3); RBC Red Blood Cell Count 3.39 M/uL (4.33-5.43)
[2020-09-29 13:09] LABS: Protime INR 2.61
[2020-09-29 13:27] LABS: Albumin 2.2 g/dL (3.4-5.0); Bilirubin Direct 0.2 mg/dL (0-0.2); Bilirubin Total 0.5 mg/dL (0.2-1.0); Magnesium 2.3 mg/dL (1.8-2.4); Potassium 4.2 mmol/L (3.5-5.1); Protein, Total 6.6 g/dL (6.4-8.2); Troponin (Emerg Dept Use Only) 0.02 ng/mL (0.0-0.045)
[2020-09-29] MEDS ORDERED: FAMOTIDINE 20 MG/2 ML VIAL IV ONE (13:36)
[2020-09-29] MEDS ORDERED: NA CHLORIDE 0.9% 1,000 ML ONE ×2 (13:37→16:59)
[2020-09-29] MEDS ORDERED: CEFTRIAXONE/SWI 1gm 1 GM/10 ML SYR ONE (13:37)
--- NOTE | 2020-09-29 13:52 | RAD REPORT ---
EXAM DESCRIPTION: CT - Head Brain Wo Cont - 09/29/2020 12:54 pm CLINICAL HISTORY: DECLINING STATE COMPARISON: Head Brain Wo Cont dated 04/05/2016 TECHNIQUE: Axial 5 mm thick images of the head were obtained without IV contrast. All CT scans are performed using dose optimization technique as appropriate and may include automated exposure control or mA/KV adjustment according to patient size. FINDINGS: No intracranial hemorrhage, mass, edema or shift of mid-line structures. No acute infarcti on changes seen. No cortical edema or sulcal effacement. Moderate severity atrophy and chronic ischem ic changes are present. Ventricles are in proportion to volume loss. Arterial and physiologic calcifi cations are present. Mastoid air cells and visualized portions of the paranasal sinuses are clear. No acute bony findings. IMPRESSION: Negative non-contrast CT head examination for acute finding. Atrophy and chronic ischemic changes are present minimally progressive from 2016 study.
[2020-09-29] MEDS ORDERED: FOLIC ACID 1 MG in NA CHLORIDE 0.9% 50 ML IV ONE (14:00)
--- NOTE | 2020-09-29 14:05 | RAD REPORT ---
EXAM DESCRIPTION: RAD - Chest Single View - 09/29/2020 1:01 pm CLINICAL HISTORY: COUGHweakness, hypotension COMPARISON: Portable July 2019 TECHNIQUE: AP portable chest image was obtained 09/29/2020 1:01 pm . FINDINGS: Lungs are fibrotic with no focal mass or consolidation seen. Severity of chronic disease c ould mask a mild interstitial edema or infiltrate. Nodular density over the lower left lung field is favored to be a nipple shadow. Heart and vasculature are normal. No measurable pleural effusion and n o pneumothorax. No acute bony abnormality seen. No acute aortic findings suspected. IMPRESSION: Chronic interstitial fibrotic pattern potentially masking mild edema or infiltrate. No suspicious mass and no focal consolidation.
[2020-09-29] MEDS ORDERED: NA CHLORIDE 0.9% 500 ML ONE (16:05)
[2020-09-29 16:12] LABS: Urine Appearance TURBID; Urine Blood 3+ (NEG); Urine Color RED; Urine Glucose NEGATIVE (NEG); Urine Protein 2+ (NEG); Urine pH 5.5 (5.0-7.0)
[2020-09-29 16:13] LABS: Urine Microscopic Reflex ORDER UMIC
--- NOTE | 2020-09-29 16:20 | ER ---
Nurse's Notes [facility] Name: Sam Suarez Age: 75 yrs Sex: Male : 1945 Arrival Date: 09/29/2020 Time: 12:22 Bed 2 Private MD: Diagnosis: Acute kidney failure;Weakness;Hypotension;Anemia, unspecified;Urinary tract infection, site not specified;Hematuria;Do not resuscitate;Left sided colitis-PROCTITIS/COLITIS;Pneumonia, unspecified organism-LEFT LOWER LOBE, ASPIRATION Presentation: 09/29 12:20 Chief complaint: EMS states: 75 yr. old male is A \T\ O x 4, c/o weakness, dizziness, rb3 blurred vision, and headache. Last known normal was 0800 this morning. EMS initial BP 90/43, P 70's, 93% RA. Last BP 103/62. Has history of TIA, EMS stroke assessment was negative. EKG showed SR. Wound on right foot is currently being treated. Has a 20 g Left AC. He is non-ambulatory. Initial Sepsis Screen:. Risk Assessment: Do you want to hurt yourself or someone else? Patient reports no desire to harm self or others. Onset of symptoms is unknown. 12:20 Method Of Arrival: EMS: [facility] rb3 12:20 Acuity: AMANDA 3 rb3 12:20 Coronavirus screen: At this time, the client does not indicate any symptoms associated rb3 with coronavirus-19. Ebola Screen: Patient denies travel to an Ebola-affected area in the 21 days before illness onset. Initial Sepsis Screen: Does the patient meet any 2 criteria? No. Patient's initial sepsis screen is negative. Does the patient have a suspected source of infection? Yes: Skin breakdown/wound. 13:09 Acuity: AMANDA 2 iw Triage Assessment: 12:20 General: Appears in no apparent distress. comfortable, Behavior is calm, cooperative. rb3 Pain: Complains of pain in right leg and left leg Pain currently is 3 out of 10 on a pain scale. Neuro: Level of Consciousness is awake, alert, obeys commands, Oriented to person, place, time, situation, Table Attendant are equal bilaterally Weakness in left in right leg(s) Gait is non-ambulatory. Speech is normal, Facial symmetry appears normal, Pupils are PERRLA, Reports blurred vision dizziness, headache in entire weakness in generalized. Cardiovascular: Capillary refill < 3 seconds Patient's skin is warm and dry. Respiratory: Airway is patent Respiratory effort is even, unlabored, Respiratory pattern is regular, symmetrical. GI: No signs and/or symptoms were reported involving the gastrointestinal system. : No signs and/or symptoms were reported regarding the genitourinary system. Musculoskeletal: non-ambulatory. Historical: - Allergies: 12:20 Dilaudid; rb3 12:20 Metformin HCl; rb3 - Home Meds: 12:20 Acetaminophen Oral as needed [Active]; albuterol sulfate 90 mcg/actuation Inhl HFAA 2 rb3 puffs every 6 hours [Active]; Aldactone 25 mg Oral tab 1 tab once daily [Active]; alprazolam 0.5 mg Oral TbDL 1 tab [Active]; Amaryl 2 mg Oral tab 1 tab once daily [Active]; aspirin 325 mg Oral tab 1 tab once daily [Active]; - PMHx: 12:20 Anemia; Anxiety; ATHEROSCLEROSIS; Atrial Fib; B12 deficiency; benign prostatic rb3 hyperplasia; CHF; Chronic pain; CKD; cognitive communication deficit; constipation; COPD; Diabetes - NIDDM; DYSPHAGIA; GERD; Hematuria; Hypertension; Hypokalemia; Hypomagnesemia; Major Depressive Disorder; - PSHx: 12:20 Appendectomy; rb3 - Immunization history:: Adult Immunizations up to date. - Social history:: Smoking status: Patient/guardian denies using. - Family history:: not pertinent. Screenin:20 Abuse screen: Denies threats or abuse. Nutritional screening: No deficits noted. rb3 Tuberculosis screening: No symptoms or risk factors identified. Assessment: 12:20 General: See triage assesssment. rb3 13:23 Reassessment: Patient appears in no apparent distress at this time. No changes from rb3 previously documented assessment. 14:28 Reassessment: Patient appears in no apparent distress at this time. Pt. resting with rb3 eyes closed, respirations even, unlabored. 15:25 Reassessment: Patient appears in no apparent distress at this time. Patient and/or rb3 family updated on plan of care and expected duration. Pain level reassessed. Patient is alert, oriented x 3, equal unlabored respirations, skin warm/dry/pink. 16:14 Reassessment: Spoke to Vernell from [facility], updated on the POC. Pt. is chair bound. rb3 Blood pressure medications were held this morning, BP 95/55. Yesterday BP 90's/60's, Last night at 2100 BP 92/57. Normal BP 110-120's/60's-70's. 16:22 Reassessment: Patient appears in no apparent distress at this time. No changes from rb3 previously documented assessment. 17:22 Reassessment: Pt. is resting with eyes closed, respirations even, unlabored. call light rb3 within reach. 17:55 Reassessment: Dr. Suggs at the pt. bedside. rb3 18:39 Reassessment: Patient appears in no apparent distress at this time. Patient and/or rb3 family updated on plan of care and expected duration. Pain level reassessed. Patient is alert, oriented x 3, equal unlabored respirations, skin warm/dry/pink. 19:00 General: Appears in no apparent distress. Neuro: Level of Consciousness is awake, ea alert, Oriented to person. Respiratory: Airway is patent Respiratory effort is even, unlabored, Respiratory pattern is regular, symmetrical. Derm: Skin is dry, Skin is pale, Skin temperature is warm. Vital Signs: 12:20 BP 78 / 59; Pulse 78; Resp 16; Temp 97.3(TE); Pulse Ox 95% ; Weight 113.4 kg (R); rb3 Height 6 ft. 1 in. (185.42 cm); Pain 3/10; 13:23 BP 83 / 55; Pulse 76; Resp 16; Pulse Ox 100% ; rb3 14:25 BP 81 / 54; Pulse 68; Resp 17; Pulse Ox 100% ; rb3 15:30 BP 90 / 46; Pulse 70; Resp 15; Pulse Ox 100% on 2 lpm NC; rb3 16:32 BP 81 / 51; Pulse 70; Resp 15; Pulse Ox 100% ; rb3 16:40 BP 86 / 62; Pulse 70; Resp 16; Pulse Ox 100% ; rb3 17:15 BP 88 / 58; Pulse 71; Resp 20; Pulse Ox 99% ; rb3 17:37 BP 93 / 75; Pulse 71; Resp 16; Pulse Ox 99% ; rb3 18:15 BP 86 / 61; Pulse 70; Resp 18; Pulse Ox 96% on 2 lpm NC; rb3 20:07 BP 107 / 67; Pulse 73; Resp 18; Pulse Ox 98% on R/A; ea 12:20 Body Mass Index 32.98 (113.40 kg, 185.42 cm) rb3 13:23 administered IV fluids rb3 ED Course: 12:20 Arm band placed on right wrist. rb3 12:20 Patient has correct armband on for positive identification. Bed in low position. Call rb3 light in reach. Side rails up X2. salvage diver on. Pulse ox on. NIBP on. Warm blanket given. 12:20 Maintain EMS IV. Dressing intact. Site clean \T\ dry. Gauge \T\ site: 20 g L AC. rb 3 12:22 Patient arrived in ED. em1 12:31 Enio Schuster MD is Attending Physician. cristian 12:33 IV discontinued, intact, bleeding controlled, No redness/swelling at site. Pressure rb3 dressing applied, 20 L AC. 12:35 Morenita Martínez, CARA is Primary Nurse. rb3 12:45 Inserted saline lock: 20 gauge in right forearm, using aseptic technique. Blood rb3 collected. 12:49 Triage completed. rb3 12:55 CT Head Brain wo Cont In Process Unspecified. EDMS 12:56 XRAY Chest (1 view) In Process Unspecified. EDMS 15:59 CT Chest Abdomen Pelvis W/O Contrast In Process Unspecified. EDMS 16:14 Yumiko Suggs MD is Hospitalizing Provider. cristian 18:47 T\T\S collected, blood band applied to patient. dh3 20:06 No provider procedures requiring assistance completed. ea Administered Medications: Discontinued: NS 0.9% 1000 ml IV at 125 ml/hr continuous 13:20 Drug: NS 0.9% 1000 ml Route: IV; Rate: 1 bolus; Site: right antecubital; rb3 14:44 Follow up: IV Status: Completed infusion rb3 13:25 Drug: Pepcid 20 mg Route: IVP; Site: right antecubital; rb3 13:40 Follow up: Response: No adverse reaction rb3 13:25 Drug: Rocephin 1 grams Route: IV; Rate: per protocol; Site: right antecubital; rb3 13:40 Follow up: Response: No adverse reaction; IV Status: Completed infusion rb3 13:58 Drug: foLIC Acid 1 mg Route: IVPB; Site: right antecubital; rb3 14:20 Follow up: Response: No adverse reaction; IV Status: Completed infusion rb3 16:00 Drug: NS 0.9% 500 ml Route: IV; Rate: bolus; Site: right antecubital; rb3 16:42 Follow up: IV Status: Completed infusion rb3 16:45 Drug: NS 0.9% 1000 ml Route: IV; Rate: 125 ml/hr; Site: right antecubital; rb3 20:49 Follow up: IV Status: Order to discontinue infusion rv 16:45 Drug: Zosyn 3.375 grams Route: IVPB; Infused Over: 60 mins; Site: right antecubital; rb3 17:49 Follow up: Response: No adverse reaction; IV Status: Completed infusion rb3 17:57 Drug: HydroCORTISONE 100 mg Route: IVP; Site: right antecubital; rb3 20:48 Follow up: Response: No adverse reaction rv Outcome: 16:19 Decision to Hospitalize by Provider. cristian 20:06 Admitted to ER Hold. Please see [facility] for further documentation. hernando 20:06 Condition: stable 20:06 Instructed on the need for admit. 09/30 02:07 Patient left the ED. ea Signatures: Dispatcher [employer] EDMS Enio Schuster MD MD cha Williams, Irene, RN Timbo Vallecillo [facility] Matteo, Shanna 3 Angle Jama RN RN ea Vicente, Ronaldo, RN RN rv Barber, Rebecca, RN RN rb3 Corrections: (The following items were deleted from the chart) 09/29 13:04 12:20 BP 78 / 59; Pulse 78bpm; Resp 16bpm; Pulse Ox 95%; 113.4 kg Reported; Height 6 rb3 ft. 1 in.; BMI: 32.9; Pain 3/10; rb3
--- NOTE | 2020-09-29 16:20 | EDPHYS ---
Physician Documentation [facility] Name: Sam Suarez Age: 75 yrs Sex: Male : 1945 Arrival Date: 09/29/2020 Time: 12:22 Bed 2 Private MD: ED Physician Enio Schuster HPI: 09/29 15:57 This 75 yrs old Male presents to ER via EMS with complaints of Low Blood cristian Pressure. 15:57 The patient has shortness of breath at rest. Onset: The symptoms/episode began/occurred cristian 3 day(s) ago. Duration: The symptoms are continuous, and are steadily getting worse. The patient's shortness of breath is aggravated by light activity, talking, walking. The patient presents to the emergency department with nausea, that is mild, abdominal pain, distention. Possible causes: unknown. The symptoms are aggravated by movement, pressure, food . weak, dizzy, low blood pressure, headache. The patient presents with dizziness. Historical: - Allergies: 12:20 Dilaudid; rb3 12:20 Metformin HCl; rb3 - Home Meds: 12:20 Acetaminophen Oral as needed [Active]; albuterol sulfate 90 mcg/actuation Inhl HFAA 2 rb3 puffs every 6 hours [Active]; Aldactone 25 mg Oral tab 1 tab once daily [Active]; alprazolam 0.5 mg Oral TbDL 1 tab [Active]; Amaryl 2 mg Oral tab 1 tab once daily [Active]; aspirin 325 mg Oral tab 1 tab once daily [Active]; - PMHx: 12:20 Anemia; Anxiety; ATHEROSCLEROSIS; Atrial Fib; B12 deficiency; benign prostatic rb3 hyperplasia; CHF; Chronic pain; CKD; cognitive communication deficit; constipation; COPD; Diabetes - NIDDM; DYSPHAGIA; GERD; Hematuria; Hypertension; Hypokalemia; Hypomagnesemia; Major Depressive Disorder; - PSHx: 12:20 Appendectomy; rb3 - Immunization history:: Adult Immunizations up to date. - Social history:: Smoking status: Patient/guardian denies using. - Family history:: not pertinent. ROS: 15:57 Constitutional: Negative for fever, chills, and weight loss, Eyes: Negative for injury, cristian pain, redness, and discharge, ENT: Negative for injury, pain, and discharge, Neck: Negative for injury, pain, and swelling, Cardiovascular: Negative for chest pain, palpitations, and edema, Back: Negative for injury and pain, : Negative for injury, bleeding, discharge, and swelling, Psych: Negative for depression, anxiety, suicide ideation, homicidal ideation, and hallucinations, Allergy/Immunology: Negative for hives, rash, and allergies, Endocrine: Negative for neck swelling, polydipsia, polyuria, polyphagia, and marked weight changes. 15:57 Respiratory: Positive for cough, shortness of breath, at rest. 15:57 Abdomen/GI: Positive for nausea, abdominal cramps, abdominal distension. 15:57 MS/extremity: Positive for decreased range of motion, pain, swelling. 15:57 Skin: Positive for pallor. 15:57 Neuro: Positive for dizziness, headache, near syncope, weakness. Exam: 15:57 Constitutional: This is a well developed, well nourished patient who is awake, alert, cristian and in no acute distress. Head/Face: Normocephalic, atraumatic. Eyes: Pupils equal round and reactive to light, extra-ocular motions intact. Lids and lashes normal. Conjunctiva and sclera are non-icteric and not injected. Cornea within normal limits. Periorbital areas with no swelling, redness, or edema. ENT: Nares patent. No nasal discharge, no septal abnormalities noted. Tympanic membranes are normal and external auditory canals are clear. Oropharynx with no redness, swelling, or masses, exudates, or evidence of obstruction, uvula midline. Mucous membranes moist. Neck: Trachea midline, no thyromegaly or masses palpated, and no cervical lymphadenopathy. Supple, full range of motion without nuchal rigidity, or vertebral point tenderness. No Meningismus. Chest/axilla: Normal chest wall appearance and motion. Nontender with no deformity. No lesions are appreciated. Respiratory: Lungs have equal breath sounds bilaterally, clear to auscultation and percussion. No rales, rhonchi or wheezes noted. No increased work of breathing, no retractions or nasal flaring. Back: No spinal tenderness. No costovertebral tenderness. Full range of motion. Male : Normal genitalia with no discharge or lesions. Neuro: Awake and alert, GCS 15, oriented to person, place, time, and situation. Cranial nerves II-XII grossly intact. Motor strength 5/5 in all extremities. Sensory grossly intact. Cerebellar exam normal. Normal gait. Psych: Awake, alert, with orientation to person, place and time. Behavior, mood, and affect are within normal limits. 15:57 Cardiovascular: Rate: normal, Rhythm: regular, Pulses: Pulses are 2+ in bilateral radial, brachial, femoral, popliteal, posterior tibial and and dorsalis pedis arteries.. Heart sounds: normal, Edema: 1+ edema to level of left midcalf and right midcalf, JVD: is not appreciated. 15:57 ECG was reviewed by the Attending Physician. Vital Signs: 12:20 BP 78 / 59; Pulse 78; Resp 16; Temp 97.3(TE); Pulse Ox 95% ; Weight 113.4 kg (R); rb3 Height 6 ft. 1 in. (185.42 cm); Pain 3/10; 13:23 BP 83 / 55; Pulse 76; Resp 16; Pulse Ox 100% ; rb3 14:25 BP 81 / 54; Pulse 68; Resp 17; Pulse Ox 100% ; rb3 15:30 BP 90 / 46; Pulse 70; Resp 15; Pulse Ox 100% on 2 lpm NC; rb3 16:32 BP 81 / 51; Pulse 70; Resp 15; Pulse Ox 100% ; rb3 16:40 BP 86 / 62; Pulse 70; Resp 16; Pulse Ox 100% ; rb3 17:15 BP 88 / 58; Pulse 71; Resp 20; Pulse Ox 99% ; rb3 17:37 BP 93 / 75; Pulse 71; Resp 16; Pulse Ox 99% ; rb3 18:15 BP 86 / 61; Pulse 70; Resp 18; Pulse Ox 96% on 2 lpm NC; rb3 20:07 BP 107 / 67; Pulse 73; Resp 18; Pulse Ox 98% on R/A; ea 12:20 Body Mass Index 32.98 (113.40 kg, 185.42 cm) rb3 13:23 administered IV fluids rb3 MDM: 12:31 Patient medically screened. cristian 16:07 Differential diagnosis: Anemia CHF exacerbation, Chronic Obstructive Pulmonary Disease cristian Nonspecific abd pain, pancreatitis, viral gastroenteritis, gastroenteritis, pneumonia, pulmonary edema, reactive airway disease. Antibiotic administration: rocephin. Differential Diagnosis altered mental status, sepsis. Differential diagnosis: cardiac arrhythmia, generalized weakness, GI bleed, hypovolemia, idiopathic dizziness, near-syncope, sepsis, syncope, TIA, vertigo. The patient's Raymond Deep Vein Thrombosis Score was calculated as follows: Imm/Surg in last 4 wks (1.5 Pts) Total Score: 0-2 Pts- Low Risk. The patient's pulmonary embolism risk score was calculated as follows: patient has experienced immobilization or surgery in the last four weeks (1.5 Pts) Total Score: 0-2 points. This patient was found to be at low risk for a pulmonary embolism by using the Well's assessment criteria. Immunization status: Pneumococcal vaccine: Influenza vaccine: Data reviewed: vital signs, nurses notes, EMS record, [facility] records, lab test result(s), EKG, radiologic studies. Data interpreted: manager monitoring: rate is 68 beats/min, rhythm is regular, Pulse oximetry: on room air is 100 %. Test interpretation: by ED physician or midlevel provider: ECG, plain radiologic studies. 09/29 12:37 Order name: Basic Metabolic Panel; Complete Time: 15:04 [facility] 09/29 12:37 Order name: CBC with Diff; Complete Time: 15:04 [facility] 09/29 12:37 Order name: LFT's; Complete Time: 15:04 [facility] 09/29 12:37 Order name: Magnesium; Complete Time: 15:04 [facility] 09/29 12:37 Order name: NT PRO-BNP; Complete Time: 15:04 [facility] 09/29 12:37 Order name: PT-INR; Complete Time: 15:04 [facility] 09/29 12:37 Order name: Troponin (emerg Dept Use Only); Complete Time: 15:04 [facility] 09/29 12:37 Order name: Lactate; Complete Time: 15:04 [facility] 09/29 12:37 Order name: Urine Culture [facility] 09/29 12:37 Order name: Lipase; Complete Time: 15:04 [facility] 09/29 12:38 Order name: Blood Culture Adult (2) [facility] 09/29 15:42 Order name: Urinalysis; Complete Time: 18:19 rb3 09/29 16:20 Order name: Type And Screen [facility] 09/29 12:37 Order name: XRAY Chest (1 view); Complete Time: 15:04 [facility] 09/29 12:37 Order name: CT Head Brain wo Cont; Complete Time: 15:04 [facility] 09/29 15:46 Order name: CT Chest Abdomen Pelvis W/O Contrast; Complete Time: 17:02 [facility] 09/29 16:33 Order name: Urine Microscopic Only; Complete Time: 18:19 [facility] 09/29 16:35 Order name: SARS-COV-2 RT PCR; Complete Time: 17:02 [facility] 09/29 17:18 Order name: CBC with Automated Diff [facility] 09/29 17:18 Order name: CBC with Automated Diff [facility] 09/29 17:18 Order name: Comprehensive Metabolic Panel [facility] 09/29 17:18 Order name: Comprehensive Metabolic Panel [facility] 09/29 17:18 Order name: Protime (+INR) [facility] 09/29 17:18 Order name: Protime (+INR) [facility] 09/29 17:18 Order name: PTT, Activated Partial Thromb [facility] 09/29 17:18 Order name: PTT, Activated Partial Thromb [facility] 09/29 21:12 Order name: Glucose, Ancillary Testing [facility] 09/29 22:03 Order name: Glucose, Ancillary Testing [facility] 09/29 12:37 Order name: EKG; Complete Time: 12:38 [facility] 09/29 12:37 Order name: Cardiac monitoring; Complete Time: 13:37 [facility] 09/29 12:37 Order name: EKG - Nurse/Tech; Complete Time: 13:37 [facility] 09/29 12:37 Order name: IV Saline Lock; Complete Time: 13:37 [facility] 09/29 12:37 Order name: Labs collected and sent; Complete Time: 13:37 [facility] 09/29 12:37 Order name: O2 Per Protocol; Complete Time: 13:37 [facility] 09/29 12:37 Order name: O2 Sat Monitoring; Complete Time: 13:37 [facility] 09/29 12:37 Order name: Urine Dipstick-Ancillary (obtain specimen); Complete Time: 16:28 [facility] 09/29 12:37 Order name: Iraheta; Complete Time: 15:47 [facility] 09/29 12:50 Order name: IV Saline Lock - Large Bore; Complete Time: 15:15 [facility] 09/29 17:18 Order name: CONS Pharmacy Consult [facility] 09/29 17:18 Order name: Renal EDMS EC:57 Rate is 77 beats/min. Rhythm is regular. QRS Thurston is Normal. NV interval is prolonged cristian at 304 msec. QRS interval is normal. QT interval is normal. No Q waves. T waves are Normal. No ST changes noted. Clinical impression: NSR w/ Non-specific ST/T Changes and No evidence of ischemia. Interpreted by me. Reviewed by me. Administered Medications: Discontinued: NS 0.9% 1000 ml IV at 125 ml/hr continuous 13:20 Drug: NS 0.9% 1000 ml Route: IV; Rate: 1 bolus; Site: right antecubital; rb3 14:44 Follow up: IV Status: Completed infusion rb3 13:25 Drug: Pepcid 20 mg Route: IVP; Site: right antecubital; rb3 13:40 Follow up: Response: No adverse reaction rb3 13:25 Drug: Rocephin 1 grams Route: IV; Rate: per protocol; Site: right antecubital; rb3 13:40 Follow up: Response: No adverse reaction; IV Status: Completed infusion rb3 13:58 Drug: foLIC Acid 1 mg Route: IVPB; Site: right antecubital; rb3 14:20 Follow up: Response: No adverse reaction; IV Status: Completed infusion rb3 16:00 Drug: NS 0.9% 500 ml Route: IV; Rate: bolus; Site: right antecubital; rb3 16:42 Follow up: IV Status: Completed infusion rb3 16:45 Drug: NS 0.9% 1000 ml Route: IV; Rate: 125 ml/hr; Site: right antecubital; rb3 20:49 Follow up: IV Status: Order to discontinue infusion rv 16:45 Drug: Zosyn 3.375 grams Route: IVPB; Infused Over: 60 mins; Site: right antecubital; rb3 17:49 Follow up: Response: No adverse reaction; IV Status: Completed infusion rb3 17:57 Drug: HydroCORTISONE 100 mg Route: IVP; Site: right antecubital; rb3 20:48 Follow up: Response: No adverse reaction rv Disposition: 09/29/20 16:19 Hospitalization ordered by Yumiko Suggs for Inpatient Admission. Preliminary diagnosis are Acute kidney failure, Weakness, Hypotension, Anemia, unspecified, Urinary tract infection, site not specified, Hematuria, Do not resuscitate, Left sided colitis - PROCTITIS/COLITIS, Pneumonia, unspecified organism - LEFT LOWER LOBE, ASPIRATION. - Bed requested for Intensive Care Unit. - Status is Inpatient Admission. ea - Condition is Fair. - Problem is new. - Symptoms have improved. Signatures: Dispatcher [employer] EDMS Enio Schuster MD MD cha Antunez, Elena, RN RN Jake Shoemaker, RN RN Morenita Butler, RN RN rb3 Corrections: (The following items were deleted from the chart) 15:39 15:07 CORONAVIRUS+ ordered. [facility] 16:31 16:19 Hospitalization Ordered by Yumiko Suggs MD for Inpatient Admission. Preliminary [facility] diagnosis is Acute kidney failure; Weakness; Hypotension; Anemia, unspecified; Urinary tract infection, site not specified; Hematuria; Do not resuscitate. Bed requested for Telemetry/MedSurg (Inpatient). Status is Inpatient Admission. Condition is Fair. Problem is new. Symptoms have improved. [facility] 19:59 16:31 09/29/2020 16:19 Hospitalization Ordered by Yumiko Suggs MD for Inpatient rv Admission. Preliminary diagnosis is Acute kidney failure; Weakness; Hypotension; Anemia, unspecified; Urinary tract infection, site not specified; Hematuria; Do not resuscitate; Left sided colitis - PROCTITIS/COLITIS; Pneumonia, unspecified organism - LEFT LOWER LOBE, ASPIRATION. Bed requested for Telemetry/MedSurg (Inpatient). Status is Inpatient Admission. Condition is Fair. Problem is new. Symptoms have improved. [facility] 19:59 19:59 09/29/2020 16:19 Hospitalization Ordered by Yumiko Suggs MD for Inpatient rv Admission. Preliminary diagnosis is Acute kidney failure; Weakness; Hypotension; Anemia, unspecified; Urinary tract infection, site not specified; Hematuria; Do not resuscitate; Left sided colitis - PROCTITIS/COLITIS; Pneumonia, unspecified organism - LEFT LOWER LOBE, ASPIRATION. Bed requested for [facility] ER HOLD. Status is Inpatient Admission. Condition is Fair. Problem is new. Symptoms have improved. rv 09/30 01:56 12 19:59 09/29/2020 16:19 Hospitalization Ordered by Yumiko Suggs MD for Inpatient ea Admission. Preliminary diagnosis is Acute kidney failure; Weakness; Hypotension; Anemia, unspecified; Urinary tract infection, site not specified; Hematuria; Do not resuscitate; Left sided colitis - PROCTITIS/COLITIS; Pneumonia, unspecified organism - LEFT LOWER LOBE, ASPIRATION. Bed requested for [facility] ER HOLD. Status is Inpatient Admission. Condition is Fair. Problem is new. Symptoms have improved. rv 09/30 02:07 01:56 09/29/2020 16:19 Hospitalization Ordered by Yumiko Suggs MD for Inpatient ea Admission. Preliminary diagnosis is Acute kidney failure; Weakness; Hypotension; Anemia, unspecified; Urinary tract infection, site not specified; Hematuria; Do not resuscitate; Left sided colitis - PROCTITIS/COLITIS; Pneumonia, unspecified organism - LEFT LOWER LOBE, ASPIRATION. Bed requested for Intensive Care Unit. Status is Inpatient Admission. Condition is Fair. Problem is new. Symptoms have improved. ea
--- NOTE | 2020-09-29 16:23 | RAD REPORT ---
EXAM DESCRIPTION: CT - Chest Abd Pelvis Wo Con - 09/29/2020 3:59 pm CLINICAL HISTORY: Cough;Dyspnea;Swelling;Pain COMPARISON: CT CHEST,ABD,PELVIS W/WO dated 08/03/2019; Abdomen Pelvis W Contrast dated 10/01/2019 TECHNIQUE: Axial 5 millimeter thick images of the chest, abdomen and pelvis were obtained without IV contrast. Oral contrast was administered. All CT scans are performed using dose optimization technique as appropriate and may include automated exposure control or mA/KV adjustment according to patient size. FINDINGS: Patchy airspace opacification is present in the posterior gutter on the left along with ad ditional interstitial stranding and bronchial wall thickening. This could be a small infectious or as piration pneumonia. Trace amount of pleural fluid present posteromedial right base. In the lateral le ft base a 16 millimeter noncalcified pulmonary nodule is present enlarged from prior imaging. Two abu tting 9 millimeter nodular foci present in the anterior mid right chest. A 7 millimeter noncalcified pulmonary nodule present posterior left apex with an 8 x 5 mm nodule in the anterior mid left upper l obe at the aortic arch level. These are all new or enlarged from July 2019 study. No pneumothorax or pleural effusion. No chest wall mass or abnormal axillary lymphadenopathy seen. Small nonspecif ic mediastinal lymph nodes are present. No axillary lymphadenopathy. Patient has prominent bilateral gynecomastia. Heart size is upper normal. No pericardial effusion. The liver, spleen and pancreas show no significant findings for non contrast imaging. Cholecystectom y clips are present. No biliary tree dilatation. 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 The mass has enlarged to approximately 6.4 cm AP x 8.9 cm TR. No hydronephrosis is present. A 2.3 centimeter isodense mass lateral mid left kidney corresponds to a cyst seen on the September 2019 study. No adrenal abnormalitie s. Urinary bladder is fully contracted around a Iraheta catheter limiting assessment. No gastric dilatation or wall thickening. No acute small bowel finding. Moderate stool volume is pres ent throughout the colon. No appendicitis. Sigmoid colon is quite tortuous and redundant reaching the anterior upper abdomen. Near the rectosigmoid junction there is mild wall thickening. There is stran ding in the adjacent fat. Large stool volume mildly distends the colon immediately proximal to the re ctosigmoid junction. Detail is limited due to spray artifact from right hip prosthesis. No free air, free fluid or pneumatosis. Fat filled left inguinal hernia is present. No bulky lymphad enopathy. No acute bone or joint finding. Degenerative changes are present. Arterial calcifications present. 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 The IVC thrombus detailed September 2019 cannot be evaluated due to absence of contrast on thi s study. Patient has multiple pulmonary metastatic lesions new or enlarged from July 2019. Posterior gutter opacification on the left lung base suspected to be a mild or early infectious or as piration pneumonia. Wall thickening at the rectosigmoid junction. There is stranding in the adjacent fat. And mild procti tis/ colitis would be a consideration. Mass cannot be excluded due to the limiting affects of the rig ht hip prosthesis spray artifact.
[2020-09-29] MEDS ORDERED: PIPER/TAZO/NS 3.375gm 3.375 GM/100 ML BAG ONE (16:59)
[2020-09-29] MEDS ORDERED: MORPHINE 2 MG/ML SYR IV PRN (17:11)
[2020-09-29] MEDS ORDERED: ACETAMINOPHEN 500 MG TAB PO PRN (17:11)
[2020-09-29] MEDS ORDERED: HYDROCORTISONE SUC 100 MG INJ IV ONE (17:26)
[2020-09-29 17:27] LABS: Urine Bacteria >50 /HPF (NONE SEEN); Urine Bilirubin NEGATIVE (NEG); Urine RBC >50 /HPF (NONE SEEN)
[2020-09-29] MEDS ORDERED: NA CHLORIDE 0.9% 1,000 ML IV SCH (18:00)
--- NOTE | 2020-09-29 18:08 | P.HP ---
Certification for Inpatient Patient admitted to: Inpatient With expected LOS: >2 Midnights Patient will require the following post-hospital care: Other (detention) Practitioner: I am a practitioner with admitting privileges, knowledge of patient current condition, hospital course, and medical plan of care. Services: Services provided to patient in accordance with Admission requirements found in Title 42 Section 412.3 of the Code of Federal Regulations Patient History Date of Service: 09/29/20 Reason for admission: Septic shock/UTI/DNAR/Hematuria/Renal Cell Ca with mets History of Present Illness: Patient is a 75-year-old gentleman who came to the hospital with shock. Patient had gross hematuria along with a UTI and what appeared to be a foot infection. Patient had a foot injury a few months prior. Patient is on Eliquis and there is concern that patient may need blood transfusion. Continue with IV hydration and withholding anticoagulation at this time. Patient has a history of renal cell carcinoma with metastatic disease of the lungs. Patient has a do not attempt resuscitation order per the family. Patient's is medical power of commercial attorney. Patient also has 2 sons. At this time patient will be admitted for IV hydration. Family does want vasopressors and any medical therapy as needed. They do not want patient to be intubated nor do they want cardiopulmonary resuscitation. Will continue monitoring H&H closely. Patient may need bladder irrigation. At this time patient's prognosis is very poor and we will continue with medical therapy but we will keep patient do not intubate and do not resuscitate except for vasopressor support. Will discuss with Cardiology regarding long-term anticoagulation as I do not believe the benefits of this outweigh the risks. Patient may be a candidate for hospice going forward. Allergies hydromorphone [From Dilaudid] Allergy (Verified 06/15/19 23:00) Nausea/Vomiting metformin Allergy (Verified 06/15/19 23:00) Rash Home Medications: RX: Acetaminophen [Acetaminophen ER] 650 mg PO Q6HP PRN 08/01/19 RX: Apixaban [Eliquis] 5 mg PO BID 08/01/19 RX: Atorvastatin Calcium [Lipitor*] 10 mg PO BEDTIME 08/01/19 RX: Gabapentin 300 mg PO TID 08/01/19 RX: Glimepiride [Amaryl*] 2 mg PO DAILY 08/01/19 RX: Ipratropium/Albuterol Sulfate [Iprat-Albut 0.5-3(2.5) mg/3 ml] 3 ml NEB Q4HP PRN 08/01/19 RX: Melatonin 5 mg PO BEDTIME 08/01/19 RX: Ondansetron [Zofran (Odt)*] 4 mg PO Q8HP PRN 08/01/19 RX: Ranolazine [Ranolazine ER] 1,000 mg PO BID 08/01/19 RX: Sertraline HCl 50 mg PO DAILY 08/01/19 RX: Sotalol HCl [Betapace*] 80 mg PO BID 08/01/19 RX: Tamsulosin HCl 0.4 mg PO DAILY 08/01/19 RX: carvediloL [Coreg*] 12.5 mg PO BID 08/01/19 RX: lisinopriL [Prinivil*] 20 mg PO DAILY 08/01/19 Ascorbic Acid [Vitamin C] 250 mg PO DAILY 09/30/20 Ergocalciferol (Vitamin D2) [Vitamin D2] 1,250 mcg PO EVERY 7TH DAY 09/30/20 Fluticasone/Umeclidin/Vilanter [Trelegy Ellipta 100-62.5-25] 1 each IH DAILY 09/30/20 Potassium Chloride [K-Dur] 10 meq PO DAILY 09/30/20 RX: Doxycycline Hyclate 100 mg PO BID 09/30/20 RX: Ferrous Sulfate 325 mg PO DAILY 09/30/20 RX: Zinc 50 mg PO DAILY 09/30/20 guaiFENesin [Radha-Tussin] 5 ml PO Q6HP PRN 09/30/20 - Past Medical/Surgical History Diabetic: Yes -: Hypertension -: CHF, diastolic dysfunction -: COPD, former smoker -: Renal cell carcinoma -: Atrial fibrillation on chronic anti coagulation -: Atherosclerotic Heart disease -: Diabetes mellitus type 2 -: History of falls -: History of recurring UTI -: Cataracts -: GERD -: Benign prostatic hyperplasia -: Cholecystectomy -: Hernia repair -: Cardiac stents x2 -: Colon polyp removal -: Appendectomy Psychosocial/ Personal History: The patient is 48 years, has 2 children and 1 adopted child. 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 Patient currently at detention. - Family History Mother Medical History: Cancer Notes: breast cancer Sister Medical History: Cancer Notes: ovarian cancer Brother Medical History: Heart disease Notes: heart attack - Social History Alcohol use: No CD- Drugs: No Caffeine use: No Review of Systems 10-point ROS is otherwise unremarkable Physical Examination - Vital Signs Temperature: 97.3 F Blood Pressure: 78/59 Pulse: 78 Respirations: 16 Pulse Ox (%): 95 - Physical Exam General: Alert, In no apparent distress, Oriented x1, Confused HEENT: Atraumatic, PERRLA, Mucous membr. moist/pink, Other ( Conjunctiva pallor), EOMI, Sclerae nonicteric Neck: Supple, 2+ carotid pulse no bruit, No LAD, Without JVD or thyroid abnormality Respiratory: Diminished, Rhonchi/gurgles Cardiovascular: Regular rate/rhythm, Normal S1 S2, Systolic murmur Gastrointestinal: Normal bowel sounds, Soft and benign, Non-distended, No tenderness Musculoskeletal: No clubbing, No swelling, No tenderness Integumentary: No rashes Neurological: Sensation intact, Cranial nerves 3-12 intact, Abnormal gait, Abnormal speech, Abnormal strength, Abnormal affect Lymphatics: No axilla or inguinal lymphadenopathy Urinary: Iraheta catheter ( patient with gross hematuria and has had prolonged Iraheta catheter placement) - Studies Laboratory Data (last 24 hrs) 09/29/20 12:50: PT 30.2 H, INR 2.61 09/29/20 12:50: WBC 8.1, Hgb 9.1 L, Hct 28.6 L, Plt Count 357 09/29/20 12:50: Sodium 138, Potassium 4.2, BUN 54 H, Creatinine 3.26 H, Glucose 89, Magnesium 2.3, Total Bilirubin 0.5, AST 12 L, ALT 16, Alkaline Phosphatase 121 H, Lipase 51 L Assessment & Plan - Problems (Diagnosis) (1) Hypovolemic shock Current Visit: Yes Status: Acute (2) Metastatic renal cell carcinoma to lung Current Visit: Yes Status: Acute (3) Acute diastolic heart failure Current Visit: No Status: Acute (4) Atrial flutter Onset Date: 04/06/16 Current Visit: No Status: Acute (5) COPD exacerbation Current Visit: No Status: Acute (6) Hematuria Onset Date: 07/10/16 Current Visit: No Status: Acute (7) Atrial fibrillation Onset Date: 06/04/17 Current Visit: No Status: Chronic Qualifiers: Atrial fibrillation type: chronic (8) Avascular necrosis of bone of right hip Onset Date: 06/04/17 Current Visit: No Status: Chronic (9) Benign prostatic hyperplasia Onset Date: 06/04/17 Current Visit: No Status: Chronic Qualifiers: Lower urinary tract symptom presence: symptoms present Lower urinary tract symptom detail: unspecified Qualified Code(s): N40.1 - Benign prostatic hyperplasia with lower urinary tract symptoms (10) Chronic anticoagulation Onset Date: 05/21/17 Current Visit: No Status: Chronic (11) Chronic obstructive pulmonary disease Onset Date: 06/04/17 Current Visit: No Status: Chronic Qualifiers: COPD type: COPD with acute exacerbation Qualified Code(s): J44.1 - Chronic obstructive pulmonary disease with (acute) exacerbation (12) Congestive heart failure Onset Date: 06/04/17 Current Visit: No Status: Chronic (13) Coronary artery disease Onset Date: 06/04/17 Current Visit: No Status: Chronic Qualifiers: Coronary Disease-Associated Artery/Lesion type: [place] artery [place] vs. transplanted heart: [place] heart Associated angina: without angina Qualified Code(s): I25.10 - Atherosclerotic heart disease of [place] coronary artery without angina pectoris (14) Depression with anxiety Onset Date: 06/04/17 Current Visit: No Status: Chronic (15) UTI (urinary tract infection) Onset Date: 09/05/17 Current Visit: No Status: Resolved Qualifiers: Urinary tract infection type: site unspecified Hematuria presence: without hematuria Qualified Code(s): N39.0 - Urinary tract infection, site not specified - Plan Plan: 1. Aggressive IV hydration and IV antibiotics 2. Monitor H&H 3. Blood transfusion if hemoglobin is less than 8 4. Monitor cardiac status closely 5. Out of bed and ambulate 6. Blood cultures and urine culture 7. Monitor gross hematuria and bladder irrigation 8. Echocardiogram 9. Patient is a DNR except for vasopressor support 10. GI and DVT prophylaxis Discharge Plan: [facility] Plan to discharge in: Greater than 2 days - Advance Directives Does patient have a Living Will: No Does patient have a Durable POA for Healthcare: Yes - Code Status/Comfort Care Code Status: Do Not Attempt Resuscitat Critical Care: Yes Time Spent Managing PTS Care (In Minutes): 60
[2020-09-29] MEDS ORDERED: WATER FOR INJ,STERILE 10 ML ONE (18:09)
[2020-09-29] MEDS: D5W 1,000 ML with NA BICARB 8.4% 100 MEQ IV SCH ×2 (20:23)
[2020-09-29] MEDS ORDERED: HYDROCORTISONE SUC 100 MG INJ IV SCH (21:00)
[2020-09-29] MEDS ORDERED: D50W 50 ML IV ONE (21:25)
[2020-09-29] MEDS ORDERED: D50W 25 GM/50 ML SYRINGE IV PRN (21:53)
[2020-09-30 05:48] LABS: Absolute Lymphocytes (CBC) 0.6 K/uL (0.7-4.9); Basophils % 0.3 % (0-1.3); Hematocrit 25.6 % (39.6-49.0); Lymphocytes % 9.1 % (15.3-44.8); MPV 7.7 fL (7.6-11.3); Protime INR 2.34; RBC Red Blood Cell Count 3.04 M/uL (4.33-5.43)
[2020-09-30 06:05] LABS: RBC Red Blood Cell Count 3.11 M/uL (4.33-5.43)
[2020-09-30 06:09] LABS: Albumin 2.1 g/dL (3.4-5.0); Bilirubin Total 0.3 mg/dL (0.2-1.0); Potassium 3.7 mmol/L (3.5-5.1); Protein, Total 6.2 g/dL (6.4-8.2)
[2020-09-30 06:33] LABS: Ferritin 195.2 ng/mL (26-388); Folic Acid, (Folate) 15.1 ng/mL (3.1-17.5); Magnesium 1.9 mg/dL (1.8-2.4)
[2020-09-30] MEDS ORDERED: CYANOCOBALAMIN 1000MCG/ML INJ SQ ONE (07:05)
[2020-09-30] MEDS ORDERED: ALBUMIN HUMAN 25% 100 ML IV ONE (07:09)
[2020-09-30 08:23] LABS: Blood Morphology Comment NOT SEEN (NOT SEEN); Platelet Estimate ADEQ
[2020-09-30] MEDS: CEFTRIAXONE/SWI 1gm 1 GM/10 ML SYR IV SCH (08:40)
[2020-09-30] MEDS: HYDROCORTISONE SUC 100 MG INJ IV SCH ×3 (08:41→16:42)
[2020-09-30] MEDS ORDERED: CEFTRIAXONE/SWI 1gm 1 GM/10 ML SYR ONE (08:41)
[2020-09-30] MEDS ORDERED: ALBUMIN HUMAN 25% 50 ML IV ONE (08:41)
[2020-09-30] MEDS ORDERED: SOTALOL HCL 80 MG TAB ONE (08:41)
[2020-09-30] MEDS ORDERED: HYDROCORTISONE SUC 100 MG INJ ONE ×2 (08:41→16:57)
[2020-09-30] MEDS ORDERED: ASCORBIC ACID 250 MG PO SCH (09:00)
[2020-09-30] MEDS ORDERED: CEFTRIAXONE 1 GM/NS 50 ML 1 GM/50 ML BAG IV SCH (09:00)
[2020-09-30] MEDS ORDERED: TAMSULOSIN 0.4 MG SR CAP PO SCH (09:00)
[2020-09-30] MEDS: SOTALOL HCL 80 MG TAB PO SCH ×3 (09:00→21:00)
[2020-09-30] MEDS ORDERED: DIGOXIN 0.25 MG/ML AMP IV ONE (09:27)
[2020-09-30] MEDS: SERTRALINE HCL 50 MG TAB PO SCH (09:28)
[2020-09-30] MEDS: D5W 1,000 ML with NA BICARB 8.4% 100 MEQ IV SCH ×2 (09:30)
[2020-09-30] MEDS ORDERED: DIGOXIN 0.25 MG/ML AMP ONE (09:40)
[2020-09-30] MEDS: SOD FERRIC GLUC COMPLX/SUCROSE 125 MG in NA CHLORIDE 0.9% 100 ML IV SCH (10:28)
[2020-09-30] MEDS ORDERED: D50W 25 GM/50 ML SYRINGE IV PRN (12:13)
[2020-09-30] MEDS ORDERED: GLUCAGON 1 MG/VIAL IM PRN (12:13)
[2020-09-30 12:34] LABS: Absolute Lymphocytes (CBC) 0.9 K/uL (0.7-4.9); Basophils % 0.2 % (0-1.3); Hematocrit 26.7 % (39.6-49.0); Lymphocytes % 8.2 % (15.3-44.8); MPV 7.7 fL (7.6-11.3); RBC Red Blood Cell Count 3.19 M/uL (4.33-5.43)
[2020-09-30] MEDS ORDERED: VANCOMYCIN 1 GM in NA CHLORIDE 0.9% 500 ML IVPB ONE (15:41)
--- NOTE | 2020-09-30 16:10 | EKG ---
Test Date: 2020-09-29 Test Time: 12:29:16 Outside Sales Executive: PRESTON MEASUREMENT RESULTS: Intervals: Rate: 77 ME: 304 QRSD: 118 QT: 488 QTc: 552 [place]: P: 106 ME: 304 QRS: -59 T: 99 INTERPRETIVE STATEMENTS: Sinus rhythm with 1st degree AV block Left axis deviation Pulmonary disease pattern Nonspecific intraventricular conduction delay Abnormal QRS-T angle, consider primary T wave abnormality Abnormal ECG Compared to ECG 08/01/2019 12:48:14 First degree AV block now present Left-axis deviation now present Intraventricular conduction delay now present Atrial fibrillation no longer present T-wave abnormality still present Electronically Signed On 09-30-20 16:09:26 MEDICAL GENETICS DIRECTOR by Jean Ballesteros
[2020-09-30] MEDS: INSULIN -REGULAR HUMAN 50 UNIT/0.5 ML ML SQ SCH ×2 (16:30→21:40)
[2020-09-30] MEDS ORDERED: INSULIN -REGULAR HUMAN 50 UNIT/0.5 ML ML ONE ×2 (16:53→21:54)
[2020-09-30] MEDS ORDERED: FUROSEMIDE 40 MG/4 ML VIAL IV ONE (16:55)
[2020-09-30] MEDS ORDERED: VANCOMYCIN/NS 1 gm 1 GM/250 ML BAG IVPB ONE (17:00)
[2020-09-30] MEDS ORDERED: FUROSEMIDE 40 MG/4 ML VIAL ONE (17:07)
[2020-09-30] MEDS ORDERED: VANCOMYCIN 1 GM/VIAL ONE (17:07)
[2020-09-30] MEDS ORDERED: NA CHLORIDE 0.9% 250 ML ONE (17:07)
--- NOTE | 2020-09-30 20:25 | CON ---
Date of Consultation: 09/30/2020 Reason For Consultation: Acute kidney injury, pneumonia, hematuria, and hypotension. History Of Present Illness: Mr. Suarez is a 75-year-old male. He is a do not resuscitate. He has multiple medical problems. He came in with acute kidney injury with a creatinine of 3.04, anemia wi th a hemoglobin of 8.6, elevated INR at 2.61, slightly elevated troponin, glucose was 217. He was hy potensive at 92/58. He was found to have a possible pneumonia by x-ray, has been having hematuria. So far, his Eliquis has been held. His lisinopril and Coreg have been held. He remained on sotalol for paroxysmal atrial fibrillation. His last blood pressure was 92/58. His symptoms do not include chest pain, palpitation, syncope, fever, or chills. Past Medical History: Include coronary artery disease, atrial fibrillation, anemia, anxiety, congest lilia heart failure, chronic kidney disease, COPD, diabetes, hypertension, gastroesophageal reflux dise ase, and depression. Allergies: HE IS ALLERGIC TO METFORMIN AND MORPHINE. Social History: Positive for him being a DNR. Review of Systems: Negative. Family History: Noncontributory. Medications: At home include sotalol, Eliquis, Coreg, Lipitor, Amaryl, losartan, Neurontin, Ranexa, inhalers, and potassium. Physical Examination: Vital Signs: He was in sinus rhythm. Blood pressure 92/58. General: He was in no acute distress, rather somnolent, alert and oriented x1. HEENT: Negative. Neck: Supple. No bruit, lymphadenopathy, JVD, or thyromegaly. Chest: Some rales at both bases. Cardiac: Regular rhythm and rate with an S4 gallops. No murmurs or rubs. Abdomen: Benign. Extremities: Trace edema. Diagnostic Data: As stated earlier. Impression And Plan: 1.Hypotension secondary to polypharmacy. I agree with holding lisinopril and Coreg. 2.Hematuria, on Eliquis. We need to hold Eliquis. 3.Acute kidney injury. Nephrology is involved. 4.Anemia. 5.Diabetes, poorly controlled. 6.Elevated troponin secondary to demand ischemia. 7.History of coronary artery disease, that is stable. 8.History of atrial fibrillation, on sotalol. We will continue that. 9.Anxiety. 10.History of congestive heart failure, chronic, diastolic, stable. 11.History of chronic kidney disease. 12.History of chronic obstructive pulmonary disease. 13.History of gastroesophageal reflux disease. 14.History of depression. 15.History of hypertension. He is hypotensive now. Lisinopril and Coreg have been held. I think t he patient should be hydrated rather aggressively. We should get an echocardiogram on him to see wha t his ejection fraction is. I agree with holding the above medication. We will continue sotalol, ho jevon [place]. I will continue to follow him along. JAKE/PERLA Voice ID: [id number] Report ID: [id number]
[2020-09-30] MEDS: ATORVASTATIN 10 MG TAB PO SCH (21:39)
[2020-09-30] MEDS: MELATONIN 5 MG TABLET PO SCH (21:40)
[2020-09-30] MEDS: SILVER SULFADIAZINE 1% 50 GM TOP SCH (22:43)
--- NOTE | 2020-09-30 22:52 | CON ---
Date of Consultation: 09/30/2020 Chief Complaint: Acute on chronic kidney injury. Patient has history of diabetic kidney disease, hypertensive heart and kidney, BPH. Patient was treated with MAURISIO inhibitor combination with Lasix. Patient has carvedilol for congestive heart failure. He presented to the hospital because of generalized weakness. He has congestive heart failure with diastolic dysfunction, diabetic kidney disease, history of urinary tract infection. Patient is admitted to ICU. He has UTI, septic shock, hematuria. Patient has complicated history of obstructive uropathy with renal cell carcinoma and metastatic disease secondary to renal cell carcinoma. Nephrology consultation is requested for acute kidney injury, on chronic kidney disease. BUN is 53, creatinine is 3.04. Electrolytes as follows, sodium 138, potassium 4.2, chloride 108, CO2 20, BUN 54, creatinine 3.26. Over last 24 hours, creatinine level slightly improved from 3.26 to 3.04. Patient was found to have elevated BNP up to 2945. He is started on Lasix to enhance diuresis and control congestive heart failure. Patient is a 75-year-old man. He has DNR status. He has multiple medical problems. He was found to have anemia with hemoglobin 8.6. He was hypotensive on arrival to the hospital. Blood pressure was 192/58. A chest x-ray showed possible pneumonia. He has gross hematuria. He previously was treated with Eliquis, although Eliquis was stopped due to gross hematuria. Review of Systems: Somewhat lethargic. Cannot provide review of the systems, although he denies pain, shortness of breath. Denies chest pain. Past Medical History: Coronary artery disease, atrial fibrillation, anemia, chronic anxiety, congestive heart failure, chronic kidney disease stage 3, COPD, diabetes mellitus with renal manifestation, hypertension, GERD, depression. Social History: Denies tobacco, alcohol, or illicit drugs. Family History: No kidney disease in family. Physical Examination: General: Patient is awake and alert, follows commands, blood pressure 92/58. Eyes: Anicteric sclerae. EOMI. Ears, Nose, Mouth, and Throat: Oral mucosa moist. No pallor. Neck: Supple. No bruits. Lungs: Few rhonchi. Crackles at bases. Heart: S1, S2. Regular rate and rhythm. There is S4 gallop. No murmur. No pericardial friction rub. Abdomen: Obese, benign. No rebound. No guarding. Extremities: Trace edema in both legs. NO clubbing , no cyanosis. Neurological: Moving extremities. Cranial nerves intact. Impression And Plan: 1. Hypotension. Patient is on Coreg and lisinopril, likely hypotensive episode was due to multiple blood pressure medications. Hematuria, on Eliquis. Patient was taken off Eliquis due to hematuria, acute kidney injury. Continue Lasix for volume control and congestive heart failure control. 2. Coronary artery disease. Monitor troponin level. 3. History of atrial fibrillation. Continue sotalol. 4. Hypertension. Hold blood pressure medications and lisinopril is on hold due to hypotension and acute kidney injury. 5. Borderline metabolic acidosis. Continue bicarbonate drip. Monitor electrolytes and adjust treatment accordingly. JM/MODVenkata Voice ID: [id number] Report ID: [id number] MTDD
[2020-09-30] MEDS ORDERED: SILVER SULFADIAZINE 1% 50 GM TOP ONE (22:58)
[2020-10-01] MEDS: D5W 1,000 ML with NA BICARB 8.4% 100 MEQ IV SCH ×4 (01:05→14:43)
[2020-10-01] MEDS: HYDROCORTISONE SUC 100 MG INJ IV SCH ×3 (01:08→18:12)
[2020-10-01] MEDS ORDERED: HYDROCORTISONE SUC 100 MG INJ ONE ×3 (01:23→18:27)
[2020-10-01 07:24] VITALS: BMI 32.1
[2020-10-01] MEDS: INSULIN -REGULAR HUMAN 50 UNIT/0.5 ML ML SQ SCH ×4 (07:30→22:24)
--- NOTE | 2020-10-01 08:24 | P.PN ---
Subjective Date of Service: 09/30/20 Patient doing better today. Hematuria has improved. This secondary to renal cell carcinoma. Holding Eliquis. Spoke with Cardiology and wound will not continue this as risk of bleeding is too high. May do anti-platelet therapy pending resolution of hematuria. Continue monitoring renal function closely. Blood cultures are pending. Continue with antibiotic therapy as well. Wound care to the right foot and patient with a small skin tear to the right hip and stage I decubitus. Patient is incontinence of stool. Spoke with medical prior of claim attorney patient's [id number], as well as patient's son who was at bedside Review of Systems 10-point ROS is otherwise unremarkable Physical Examination - Vital Signs Temperature: 97.9 F Blood Pressure: 127/71 Pulse: 66 Respirations: 17 Pulse Ox (%): 95 - Physical Exam General: Alert, In no apparent distress, Oriented x2, Confused HEENT: Atraumatic, Normocephalic Respiratory: Diminished, Crackles/rales Cardiovascular: Irregular heart rate/rhythm, Systolic murmur Gastrointestinal: Normal bowel sounds, Soft and benign, Non-distended Musculoskeletal: No clubbing, Swelling, Erythema, Tenderness, Warmth, Other (Wound to the right heel and right great toe) Integumentary: Pressure ulcer, Other (Right hip skin tear) Neurological: Normal strength at 5/5 x4 extr, Sensation intact, Cranial nerves 3-12 intact, Abnormal gait Assessment & Plan - Problems (Diagnosis) (1) Metastatic renal cell carcinoma to lung Current Visit: Yes Status: Acute (2) Pneumonia Current Visit: Yes Status: Acute (3) Acute diastolic heart failure Current Visit: No Status: Acute (4) DVT (deep venous thrombosis) Current Visit: No Status: Acute (5) Hematuria Onset Date: 07/10/16 Current Visit: No Status: Acute (6) Lower extremity edema Onset Date: 07/10/16 Current Visit: No Status: Acute (7) Renal cell carcinoma Current Visit: No Status: Acute (8) UTI (urinary tract infection) Onset Date: 04/06/16 Current Visit: No Status: Acute Qualifiers: (9) Atrial fibrillation Onset Date: 06/04/17 Current Visit: No Status: Chronic Qualifiers: Atrial fibrillation type: chronic (10) B12 deficiency Onset Date: 07/18/16 Current Visit: No Status: Chronic (11) Benign prostatic hyperplasia Onset Date: 06/04/17 Current Visit: No Status: Chronic Qualifiers: Lower urinary tract symptom presence: symptoms present Lower urinary tract symptom detail: unspecified Qualified Code(s): N40.1 - Benign prostatic hyperplasia with lower urinary tract symptoms (12) Chronic anticoagulation Onset Date: 05/21/17 Current Visit: No Status: Chronic (13) Chronic obstructive pulmonary disease Onset Date: 06/04/17 Current Visit: No Status: Chronic Qualifiers: COPD type: COPD with acute exacerbation Qualified Code(s): J44.1 - Chronic obstructive pulmonary disease with (acute) exacerbation (14) Congestive heart failure Onset Date: 06/04/17 Current Visit: No Status: Chronic Qualifiers: Qualified Code(s): I50.33 - Acute on chronic diastolic (congestive) heart failure (15) Coronary artery disease Onset Date: 06/04/17 Current Visit: No Status: Chronic Qualifiers: Coronary Disease-Associated Artery/Lesion type: [place] artery [place] vs. transplanted heart: [place] heart Associated angina: without angina Qualified Code(s): I25.10 - Atherosclerotic heart disease of [place] coronary artery without angina pectoris (16) Depression with anxiety Onset Date: 06/04/17 Current Visit: No Status: Chronic (17) Diabetes mellitus Onset Date: 06/04/17 Current Visit: No Status: Chronic Qualifiers: Diabetes mellitus type: type 2 Diabetes mellitus intermediate insulin use: without rn long term care use Diabetes mellitus complication status: with unspecified complications (18) Hypertension Onset Date: 06/04/17 Current Visit: No Status: Chronic Qualifiers: Hypertension type: essential hypertension Qualified Code(s): I10 - Essential (primary) hypertension (19) UTI (urinary tract infection) Onset Date: 09/05/17 Current Visit: No Status: Resolved Qualifiers: Urinary tract infection type: site unspecified Hematuria presence: without hematuria Qualified Code(s): N39.0 - Urinary tract infection, site not specified - Plan Plan: 1. Continue with IV antibiotic therapy 2. Continue with IV fluids 3. Monitor H&H 4. Hold anti coagulation 5. Patient is a DNR but family would want vasopressors if blood pressure is low 6. Wound healing consultation for wound to the right foot as well as a stage I to the back in a skin tear to the right hip 7. X-rays of right foot to rule out osteomyelitis 8. History of DVT but prior Doppler was negative. Will review Doppler as patient with lower extremity edema. Plan is to stop Eliquis completely because of the persistent hematuria and the long-term risk outweighed the benefit T's 9. Will consider anti-platelet therapy pending resolution of hematuria 10. Blood cultures positive awaiting identification 11. GI and DVT prophylaxis Discharge Plan: [facility] Plan to discharge in: Greater than 2 days - Advance Directives Does patient have a Living Will: Yes Does patient have a Durable POA for Healthcare: No - Code Status/Comfort Care Code Status Assessed: Yes Code Status: Full Code Critical Care: No Time Spent Managing PTS Care (In Minutes): 40
[2020-10-01] MEDS: SILVER SULFADIAZINE 1% 50 GM TOP SCH (09:00)
[2020-10-01] MEDS: SOTALOL HCL 80 MG TAB PO SCH (09:00)
[2020-10-01] MEDS ORDERED: ASCORBIC ACID 500 MG TABLET ONE (09:10)
[2020-10-01] MEDS ORDERED: CEFTRIAXONE/SWI 1gm 1 GM/10 ML SYR ONE (09:11)
[2020-10-01] MEDS: ASCORBIC ACID 500 MG TABLET PO SCH (09:13)
[2020-10-01] MEDS: CEFTRIAXONE/SWI 1gm 1 GM/10 ML SYR IV SCH (09:14)
[2020-10-01] MEDS: SOD FERRIC GLUC COMPLX/SUCROSE 125 MG in NA CHLORIDE 0.9% 100 ML IV SCH (09:41)
[2020-10-01] MEDS: SERTRALINE HCL 50 MG TAB PO SCH (09:41)
[2020-10-01] MEDS: ZINC SULFATE 220 MG CAP PO SCH (09:43)
[2020-10-01] MEDS ORDERED: ZINC SULFATE 220 MG CAP ONE (09:58)
--- NOTE | 2020-10-01 10:10 | RAD REPORT ---
EXAM DESCRIPTION: RAD - Foot Right 2 View - 10/01/2020 9:48 am CLINICAL HISTORY: Right foot pain FINDINGS: No fracture or dislocation is seen Osteoporosis. An erosion involves the proximal aspect of the second proximal phalanx and base of second distal phal anx. Cortical irregularity involves the first distal phalanx. One or more of these areas may indicate osteomyelitis
[2020-10-01 12:04] LABS: Absolute Lymphocytes (CBC) 1.3 K/uL (0.7-4.9); Basophils % 0.4 % (0-1.3); Hematocrit 26.1 % (39.6-49.0); Lymphocytes % 11.8 % (15.3-44.8); MPV 7.3 fL (7.6-11.3); RBC Red Blood Cell Count 3.14 M/uL (4.33-5.43)
[2020-10-01 12:06] LABS: Protime INR 1.54
[2020-10-01] MEDS ORDERED: SOTALOL HCL 80 MG TAB PO SCH (12:18)
[2020-10-01 12:26] LABS: Albumin 2.2 g/dL (3.4-5.0); Bilirubin Total 0.2 mg/dL (0.2-1.0); Magnesium 1.8 mg/dL (1.8-2.4); Phosphorus 3.6 mg/dL (2.5-4.9); Protein, Total 6.3 g/dL (6.4-8.2)
[2020-10-01 12:42] LABS: Potassium 2.9 mmol/L (3.5-5.1)
--- NOTE | 2020-10-01 12:51 | RAD REPORT ---
EXAM DESCRIPTION: USExtrem Venous W Compress Bil10/01/2020 12:41 pm CLINICAL HISTORY: Leg pain COMPARISON: 2019 FINDINGS: The common femoral, superficial femoral, popliteal and posterior tibial veins bilaterally are compressible and demonstrate augmentation. Doppler demonstrates good flow. IMPRESSION: No evidence of deep venous thrombosis involving either lower extremity.
[2020-10-01] MEDS: KCL 20 MEQ/100 mL IVPB 20 MEQ/100 ML BAG IV SCH ×3 (13:02→17:00)
[2020-10-01] MEDS ORDERED: KCL 20 MEQ/100 mL IVPB 40 MEQ/200 ML BAG IV ONE (13:14)
[2020-10-01] MEDS: VANCOMYCIN 2 GM in NA CHLORIDE 0.9% 500 ML IVPB SCH (18:13)
[2020-10-01] MEDS ORDERED: INSULIN -REGULAR HUMAN 50 UNIT/0.5 ML ML ONE ×2 (18:27→22:35)
--- NOTE | 2020-10-01 21:11 | PN ---
Date of Progress Note: 10/01/2020 Mr. Suarez has been followed for hypotension, hematuria on Eliquis, paroxysmal atrial flutter. His Coreg and lisinopril were held. His blood pressure today is 121/66. He remained anemic at 8.4. He maturia has improved. He is off Eliquis. He remains in atrial flutter at a rate of 62 on sotalol. His creatinine has improved to 2.47. I would continue his present regimen for now. No further cardi ac medication changes at this point. Nephrology is following. We will continue to follow him as eduardo coon. JAKE/PERLA Voice ID: [id number] Report ID: [id number]
[2020-10-01] MEDS: ATORVASTATIN 10 MG TAB PO SCH (21:38)
[2020-10-01] MEDS: MELATONIN 5 MG TABLET PO SCH (21:38)
[2020-10-01] MEDS ORDERED: POTASSIUM CL SA 10 MEQ TAB PO ONE (21:41)
[2020-10-02] MEDS ORDERED: HYDROCORTISONE SUC 100 MG INJ ONE (00:56)
[2020-10-02] MEDS: SILVER SULFADIAZINE 1% 50 GM TOP SCH ×3 (01:10→21:00)
[2020-10-02] MEDS: HYDROCORTISONE SUC 100 MG INJ IV SCH (01:10)
[2020-10-02] MEDS ORDERED: WATER FOR INJ,STERILE 10 ML ONE (01:24)
[2020-10-02] MEDS ORDERED: NA CHLORIDE 0.9% 0 ML ONE (05:04)
[2020-10-02] MEDS ORDERED: VANCOMYCIN 1 GM/VIAL ONE ×2 (05:05→05:17)
[2020-10-02 05:24] LABS: Absolute Lymphocytes (CBC) 1.1 K/uL (0.7-4.9); Basophils % 0.3 % (0-1.3); Hematocrit 26.1 % (39.6-49.0); Lymphocytes % 10.7 % (15.3-44.8); MPV 7.4 fL (7.6-11.3); RBC Red Blood Cell Count 3.13 M/uL (4.33-5.43)
[2020-10-02 05:28] LABS: Protime INR 1.23
[2020-10-02] MEDS ORDERED: NA CHLORIDE 0.9% 500 ML ONE (05:40)
[2020-10-02 05:45] LABS: Albumin 2.2 g/dL (3.4-5.0); Bilirubin Total 0.3 mg/dL (0.2-1.0); Magnesium 1.8 mg/dL (1.8-2.4); Phosphorus 2.7 mg/dL (2.5-4.9); Potassium 3.4 mmol/L (3.5-5.1); Protein, Total 6.5 g/dL (6.4-8.2); Thyroid Stimulating Hormone 1.58 uIU/mL (0.360-3.740)
[2020-10-02] MEDS: D5W 1,000 ML with NA BICARB 8.4% 100 MEQ IV SCH ×2 (06:00)
--- NOTE | 2020-10-02 07:00 | P.PN ---
Subjective Date of Service: 10/01/20 Patient clinically come continues to do well with no new complaints. Will transfer to general medical floor if he remains stable throughout today. Review of Systems 10-point ROS is otherwise unremarkable Physical Examination - Vital Signs Temperature: 97.7 F Blood Pressure: 147/92 Pulse: 84 Respirations: 18 Pulse Ox (%): 100 - Physical Exam General: Alert, In no apparent distress HEENT: Atraumatic, PERRLA, EOMI Neck: Supple, JVD not distended Respiratory: Clear to auscultation bilaterally, Normal air movement Cardiovascular: Regular rate/rhythm, Normal S1 S2 Gastrointestinal: Normal bowel sounds, No tenderness Musculoskeletal: No tenderness Integumentary: No rashes Neurological: Normal speech, Normal tone, Normal affect Lymphatics: No axilla or inguinal lymphadenopathy - Studies Medications List Reviewed: Yes Assessment & Plan - Problems (Diagnosis) (1) Metastatic renal cell carcinoma to lung Current Visit: Yes Status: Acute (2) Acute diastolic heart failure Current Visit: No Status: Acute (3) DVT (deep venous thrombosis) Current Visit: No Status: Acute (4) Hematuria Onset Date: 07/10/16 Current Visit: No Status: Acute (5) Lower extremity edema Onset Date: 07/10/16 Current Visit: No Status: Acute (6) Renal cell carcinoma Current Visit: No Status: Acute (7) UTI (urinary tract infection) Onset Date: 04/06/16 Current Visit: No Status: Acute Qualifiers: (8) Atrial fibrillation Onset Date: 06/04/17 Current Visit: No Status: Chronic Qualifiers: Atrial fibrillation type: chronic (9) B12 deficiency Onset Date: 07/18/16 Current Visit: No Status: Chronic (10) Benign prostatic hyperplasia Onset Date: 06/04/17 Current Visit: No Status: Chronic Qualifiers: Lower urinary tract symptom presence: symptoms present Lower urinary tract symptom detail: unspecified Qualified Code(s): N40.1 - Benign prostatic hyperplasia with lower urinary tract symptoms (11) Chronic anticoagulation Onset Date: 05/21/17 Current Visit: No Status: Chronic (12) Chronic obstructive pulmonary disease Onset Date: 06/04/17 Current Visit: No Status: Chronic Qualifiers: COPD type: COPD with acute exacerbation Qualified Code(s): J44.1 - Chronic obstructive pulmonary disease with (acute) exacerbation (13) Congestive heart failure Onset Date: 06/04/17 Current Visit: No Status: Chronic (14) Coronary artery disease Onset Date: 06/04/17 Current Visit: No Status: Chronic Qualifiers: Coronary Disease-Associated Artery/Lesion type: [place] artery [place] vs. transplanted heart: [place] heart Associated angina: without angina Qualified Code(s): I25.10 - Atherosclerotic heart disease of [place] coronary artery without angina pectoris (15) Depression with anxiety Onset Date: 06/04/17 Current Visit: No Status: Chronic (16) Diabetes mellitus Onset Date: 06/04/17 Current Visit: No Status: Chronic Qualifiers: Diabetes mellitus type: type 2 Diabetes mellitus chcf insulin use: without chcf use Diabetes mellitus complication status: with unspecified complications (17) Hypertension Onset Date: 06/04/17 Current Visit: No Status: Chronic Qualifiers: Hypertension type: essential hypertension Qualified Code(s): I10 - Essential (primary) hypertension (18) UTI (urinary tract infection) Onset Date: 09/05/17 Current Visit: No Status: Resolved Qualifiers: Urinary tract infection type: site unspecified Hematuria presence: without hematuria Qualified Code(s): N39.0 - Urinary tract infection, site not specified (19) Osteomyelitis Current Visit: Yes Status: Acute - Plan Plan: 1. Continue with IV antibiotic therapy 2. Continue with IV fluids 3. Monitor H&H 4. Hold anti coagulation 5. Patient is a DNR but family would want vasopressors if blood pressure is low 6. Wound healing consultation for wound to the right foot as well as a stage I to the back in a skin tear to the right hip 7. X-rays of right foot to rule out osteomyelitis 8. History of DVT but prior Doppler was negative. Will review Doppler as patient with lower extremity edema. Plan is to stop Eliquis completely because of the persistent hematuria and the long-term risk outweighed the benefit T's 9. Will consider anti-platelet therapy pending resolution of hematuria 10. Blood cultures positive awaiting identification 11. GI and DVT prophylaxis Discharge Plan: [facility] Plan to discharge in: Greater than 2 days - Advance Directives Does patient have a Living Will: Yes Does patient have a Durable POA for Healthcare: No - Code Status/Comfort Care Code Status: Do Not Attempt Resuscitat Critical Care: No Time Spent Managing PTS Care (In Minutes): 35
[2020-10-02] MEDS ORDERED: POTASSIUM CL SA 10 MEQ TAB PO ONE ×4 (08:00→18:00)
[2020-10-02] MEDS ORDERED: ZINC SULFATE 220 MG CAP ONE (08:13)
[2020-10-02] MEDS ORDERED: predniSONE 20 MG TAB ONE (08:13)
[2020-10-02 08:29] LABS: Blood Morphology Comment NOT SEEN (NOT SEEN); Platelet Estimate ADEQ
[2020-10-02] MEDS: INSULIN -REGULAR HUMAN 50 UNIT/0.5 ML ML SQ SCH ×4 (08:33→21:00)
[2020-10-02] MEDS: CEFTRIAXONE/SWI 1gm 1 GM/10 ML SYR IV SCH (08:34)
[2020-10-02] MEDS: predniSONE 20 MG TAB PO SCH ×2 (08:34→21:18)
[2020-10-02] MEDS: ZINC SULFATE 220 MG CAP PO SCH (08:35)
[2020-10-02] MEDS: SERTRALINE HCL 50 MG TAB PO SCH (08:35)
[2020-10-02] MEDS: ASCORBIC ACID 500 MG TABLET PO SCH (08:35)
[2020-10-02] MEDS ORDERED: ASCORBIC ACID 500 MG TABLET ONE (08:46)
[2020-10-02] MEDS ORDERED: CEFTRIAXONE/SWI 1gm 1 GM/10 ML SYR ONE (08:47)
[2020-10-02] MEDS: SOD FERRIC GLUC COMPLX/SUCROSE 125 MG in NA CHLORIDE 0.9% 100 ML IV SCH ×2 (09:28→19:56)
[2020-10-02] MEDS ORDERED: INSULIN -REGULAR HUMAN 50 UNIT/0.5 ML ML ONE ×2 (12:17→16:44)
[2020-10-02] MEDS ORDERED: D50W 25 GM/50 ML VIAL IV PRN ×2 (14:00)
[2020-10-02] MEDS ORDERED: SOD FERRIC GLUC COMPLX/SUCROSE 125 MG in NA CHLORIDE 0.9% 100 ML IV SCH (18:00)
[2020-10-02] MEDS: MELATONIN 5 MG TABLET PO SCH (21:00)
[2020-10-02] MEDS: ATORVASTATIN 10 MG TAB PO SCH (21:16)
--- NOTE | 2020-10-02 21:38 | CON ---
Date of Consultation: 10/01/2020 Chief Complaint: Acute on chronic kidney injury, nonoliguric. History Of Present Illness: Patient has multiple medical problems including history of diabetic kidney disease, hypertensive heart and kidney disease, BPH. Patient was treated with MAURISIO inhibitor combination and Lasix. Patient was taking carvedilol for congestive heart failure. He presented to the hospital because of generalized weakness. He has congestive heart failure with diastolic dysfunction, diabetic kidney disease, history of urinary tract infection. Patient remains in ICU. He has UTI and septic shock with hematuria, history of renal cell carcinoma, and metastatic disease. There is a complicated history of obstructive uropathy. He was seen by urologist. Patient is in ICU. Nephrology consultation is requested for worsening of the renal function. BUN was up to 53, creatinine 3.04. Sodium 138, potassium 4.2, chloride 108. BNP was up to 2945. Patient was started on Lasix to enhance diuresis and control congestive heart failure. Patient has DNR status. Chest x-ray showed possible pneumonia. He was treated previously with Eliquis, although Eliquis was stopped due to gross hematuria. Review of Systems: Denies PND or orthopnea. Physical Examination: LUNGS: Diminished breath sounds at bases. HEART: S1, S2. ABDOMEN: Soft, benign. EXTREMITIES: Slight edema. Laboratory Data: Hemoglobin 8.4, WBC 11.0, platelet count 383,000. Sodium 137, potassium 2.9, chloride 106, CO2 of 24, BUN 45, creatinine 2.47, calcium 7.9, phosphorus 3.6, magnesium 1.8. BNP 14,130. Impression And Plan: 1. Congestive heart failure, cardiorenal syndrome. Patient will continue Lasix for his ongoing hypokalemia. Replacement was ordered. Planning to reevaluate potassium level and adjust replacement accordingly. 2. Hypoalbuminemia. Albumin is 2.2. Patient needs to be ruled out for nephrotic syndrome. 3. Hematuria is gross. Patient was taking Eliquis. I recommend to screen for urinary tract infection and continue antibiotics. 4. Antibiotics will be adjusted according to the urine culture result. 5. CT scan of the abdomen and pelvis without contrast was done to look for any evidence of hydronephrosis. 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 The mass has enlarged to approximately 6.4 x 8.9. There is no hydronephrosis. There is a 2.3 cm isodense mass in the lateral mid left kidney, corresponds to a cyst seen on September 2019 . No adrenal abnormalities. Urinary bladder is contracted and Iraheta catheter present during examination. 6. Patient will continue Lasix for volume control and congestive heart failure control. Plan is to monitor renal function. Patient will need urology evaluation. Currently, he is on bicarbonate drip to prevent metabolic acidosis in view of acute kidney injury. 7. Urinary tract infection. Continue antibiotics. JM/PERLA Voice ID: [id number] Report ID: [id number] MTDD
[2020-10-03] MEDS ORDERED: Meropenem 500 MG/100 ML BAG ONE
--- NOTE | 2020-10-03 00:33 | PN ---
Date of Progress Note: 10/02/2020 Chief Complaint: Acute kidney injury, nonoliguric. Subjective: The patient developed prerenal azotemia, nonoliguric acute tubular necrosis. MAURISIO inhibi tor was on hold. The patient previously was treated with MAURISIO inhibitor and Lasix for congestive hear t failure. During this admission, he was found to have complicated UTI, urosepsis. The patient has history of renal carcinoma and was seen by urologist for metastatic disease. The patient was found t o have worsening of the renal function. He has advanced chronic kidney disease, although upon arriva l to the hospital BUN was 53, creatinine 3.04. Sodium 138, potassium 4.2, potassium level subsequent ly dropped to 2.9. There is no evidence of diuretic related metabolic alkalosis. Total CO2 is 24. Review of Systems: Denies PND or orthopnea. Objective: LUNGS: Diminished breath sounds at bases. HEART: S1, S2. EXTREMITIES: Slight swelling. Impression And Plan: 1.Congestive heart failure, cardiorenal syndrome. Continue Lasix for ongoing congestive heart failu re. Hypokalemia replacement was ordered. The patient may benefit from spironolactone. 2.Hypoalbuminemia. Albumin is 2.2. The patient will need additional study to rule out nephrotic sy ndrome when he is stable and does not have active gross hematuria. The patient may need to follow up outpatient. The patient was taking Eliquis; due to history of hematuria, Eliquis is on hold. 3.Urinary tract infection. Monitor urine culture. Adjust antibiotics. JM/PERLA Voice ID: [id number] Report ID: [id number]
[2020-10-03] MEDS ORDERED: Meropenem 500 MG/100 ML BAG IV SCH (01:00)
[2020-10-03] MEDS: Meropenem 500 MG VIAL IV SCH ×2 (01:00→09:00)
[2020-10-03] MEDS ORDERED: Meropenem 500 MG/100 ML BAG IV ONE (01:00)
[2020-10-03] MEDS: ONDANSETRON 4 MG/2 ML VIAL IV PRN ×2 (02:00→10:24)
[2020-10-03] MEDS ORDERED: ONDANSETRON 4 MG/2 ML VIAL ONE ×2 (02:05→10:31)
--- NOTE | 2020-10-03 02:39 | P.PN ---
Subjective Date of Service: 10/02/20 Patient is a 75-year-old gentleman with a history of metastatic renal cell carcinoma with metastasis to the lungs. Patient has not wanted any aggressive treatment for the cancer. He has been living at the senior care for the last year. Patient had a injury to his foot a few months ago. The family was not completely aware of this. Patient also has a stage 1-2 sacral decubitus and a skin tear to the right leg. We did x-rays on the foot and showed osteomyelitis. Patient is on vancomycin for this. Urine cultures came back today showing Providencia which is only sensitive to Merrem. Hematuria is improved. Patient did have gross hematuria. This has pretty much resolved. Hemoglobin dropped b ut is stabilized. Family is wanting IV antibiotic therapy. They are not wanting hospice at this time. Patient will be a candidate for hospice care for untreated metastatic renal cell carcinoma. Patient is clinically better and will be able to transfer to the medical floor. Patient may be able to a go back to [facility] over the next 48-72 hours. Patient will need to be arranged for IV antibiotic therapy. Patient clinically come continues to do well with no new complaints. Will transfer to general medical floor if he remains stable throughout today. Review of Systems 10-point ROS is otherwise unremarkable Physical Examination - Vital Signs Temperature: 97.2 F Blood Pressure: 121/74 Pulse: 90 Respirations: 14 Pulse Ox (%): 100 - Physical Exam General: Alert, In no apparent distress, Oriented x3 HEENT: Atraumatic, PERRLA, EOMI Neck: Supple, JVD not distended Respiratory: Clear to auscultation bilaterally, Normal air movement Cardiovascular: Regular rate/rhythm, Normal S1 S2, Systolic murmur Gastrointestinal: Normal bowel sounds, Soft and benign, Non-distended, No tenderness Musculoskeletal: No clubbing, No tenderness, Swelling Integumentary: Tenderness/swelling, Erythema, Warmth, Pressure ulcer (stage 1) Neurological: Sensation intact, Cranial nerves 3-12 intact Urinary: Iraheta catheter (mild hematuria) - Studies Microbiology Data (last 24 hrs): 09/29/20 15:40 Catheterized Urine [place] Count - Final BETWEEN 10,000 & 100,000 CFU/ML 09/29/20 15:40 Catheterized Urine - Final Providencia Stuartii Medications List Reviewed: Yes Assessment & Plan - Problems (Diagnosis) (1) UTI (urinary tract infection) Onset Date: 04/06/16 Current Visit: No Status: Acute Qualifiers: (2) Metastatic renal cell carcinoma to lung Current Visit: Yes Status: Acute (3) Acute diastolic heart failure Current Visit: No Status: Acute (4) Hematuria Onset Date: 07/10/16 Current Visit: No Status: Acute (5) Lower extremity edema Onset Date: 07/10/16 Current Visit: No Status: Acute (6) Renal cell carcinoma Current Visit: No Status: Acute (7) Atrial fibrillation Onset Date: 06/04/17 Current Visit: No Status: Chronic Qualifiers: Atrial fibrillation type: chronic (8) B12 deficiency Onset Date: 07/18/16 Current Visit: No Status: Chronic (9) Benign prostatic hyperplasia Onset Date: 06/04/17 Current Visit: No Status: Chronic Qualifiers: Lower urinary tract symptom presence: symptoms present Lower urinary tract symptom detail: unspecified Qualified Code(s): N40.1 - Benign prostatic hyperplasia with lower urinary tract symptoms (10) Chronic anticoagulation Onset Date: 05/21/17 Current Visit: No Status: Chronic (11) Chronic obstructive pulmonary disease Onset Date: 06/04/17 Current Visit: No Status: Chronic Qualifiers: COPD type: COPD with acute exacerbation Qualified Code(s): J44.1 - Chronic obstructive pulmonary disease with (acute) exacerbation (12) Congestive heart failure Onset Date: 06/04/17 Current Visit: No Status: Chronic (13) Coronary artery disease Onset Date: 06/04/17 Current Visit: No Status: Chronic Qualifiers: Coronary Disease-Associated Artery/Lesion type: [place] artery [place] vs. transplanted heart: [place] heart Associated angina: without angina Qualified Code(s): I25.10 - Atherosclerotic heart disease of [place] coronary artery without angina pectoris (14) Depression with anxiety Onset Date: 06/04/17 Current Visit: No Status: Chronic (15) Diabetes mellitus Onset Date: 06/04/17 Current Visit: No Status: Chronic Qualifiers: Diabetes mellitus type: type 2 Diabetes mellitus rodent exterminator insulin use: without rodent exterminator use Diabetes mellitus complication status: with unspecified complications (16) Hypertension Onset Date: 06/04/17 Current Visit: No Status: Chronic Qualifiers: Hypertension type: essential hypertension Qualified Code(s): I10 - Essential (primary) hypertension (17) Osteomyelitis Current Visit: Yes Status: Acute (18) Decubitus ulcer of sacral region, stage 1 Current Visit: Yes Status: Acute (19) ESBL (extended spectrum beta-lactamase) producing bacteria infection Current Visit: Yes Status: Acute - Plan Plan: 1. Continue with IV antibiotic therapy(6 weeks of IV antibiotics-conservative management with advanced metastatic cancer) 2. Continue with IV fluids; if tolerating diet will heplock 3. Monitor H&H 4. Hold anti coagulation; cardiology has stated to DC eliquis and just treat atrial fib with possibly antiplatelet therapy if hematuria is resolved 5. Patient is a DNR except vasopressors 6. Wound healing consultation for wound to the right foot as well as a stage I to the back in a skin tear to the right hip(Saturday) 7. X-rays of right foot -osteomyelitis 8. History of DVT but prior Doppler was negative. Plan is to stop Eliquis completely because of the persistent hematuria and the long-term risk outweighed the benefits 9. Will consider anti-platelet therapy pending resolution of hematuria 10. Blood cultures positive for coag negative staph; Urine cx positive for ESBL GN bacteria 11. GI and DVT prophylaxis Discharge Plan: Prison Plan to discharge in: Greater than 2 days - Advance Directives Does patient have a Living Will: No Does patient have a Durable POA for Healthcare: No - Code Status/Comfort Care Code Status: Do Not Attempt Resuscitat Critical Care: No Time Spent Managing PTS Care (In Minutes): 35
[2020-10-03] MEDS: D5W 1,000 ML with NA BICARB 8.4% 100 MEQ IV SCH ×6 (02:50→18:40)
[2020-10-03] MEDS: METOCLOPRAMIDE 10 MG/2mL INJ IV PRN ×2 (03:05→10:04)
[2020-10-03 04:17] LABS: Basophils % 0.1 % (0-1.3); Hematocrit 25.9 % (39.6-49.0); MPV 6.9 fL (7.6-11.3); RBC Red Blood Cell Count 3.14 M/uL (4.33-5.43)
[2020-10-03] MEDS: VANCOMYCIN 2 GM in NA CHLORIDE 0.9% 500 ML IVPB SCH (05:00)
[2020-10-03 05:06] LABS: Potassium 3.8 mmol/L (3.5-5.1)
[2020-10-03] MEDS ORDERED: NA CHLORIDE 0.9% 500 ML ONE (05:56)
[2020-10-03] MEDS ORDERED: VANCOMYCIN 1 GM/VIAL ONE (05:56)
[2020-10-03] MEDS: INSULIN -REGULAR HUMAN 50 UNIT/0.5 ML ML SQ SCH ×4 (07:30→21:00)
[2020-10-03 07:36] LABS: Urine Bilirubin NEGATIVE (NEG); Urine Blood 3+ (NEG); Urine Glucose 1+ (NEG); Urine Protein 1+ (NEG); Urine Urobilinogen 0.2 mg/dL (0.2-1.0)
[2020-10-03 07:37] LABS: Urine Appearance CLOUDY; Urine Color BROWN
[2020-10-03 08:11] LABS: Urine Bacteria <20 /HPF (NONE SEEN); Urine Mucus 2+ /HPF (NONE SEEN); Urine RBC TNTC /HPF (NONE SEEN); Urine Urothelial Cells <5 /HPF (NONE SEEN)
[2020-10-03] MEDS ORDERED: predniSONE 20 MG TAB ONE (08:28)
[2020-10-03] MEDS ORDERED: ASCORBIC ACID 500 MG TABLET ONE (08:28)
[2020-10-03] MEDS ORDERED: ZINC SULFATE 220 MG CAP ONE (08:28)
[2020-10-03] MEDS ORDERED: METOCLOPRAMIDE 10 MG/2mL INJ ONE (08:28)
[2020-10-03] MEDS ORDERED: CEFTRIAXONE/SWI 1gm 1 GM/10 ML SYR ONE (08:29)
[2020-10-03] MEDS: CEFTRIAXONE/SWI 1gm 1 GM/10 ML SYR IV SCH (08:45)
[2020-10-03] MEDS: ZINC SULFATE 220 MG CAP PO SCH (08:46)
[2020-10-03] MEDS: ASCORBIC ACID 500 MG TABLET PO SCH (08:46)
[2020-10-03] MEDS: predniSONE 20 MG TAB PO SCH ×2 (08:46→22:35)
[2020-10-03] MEDS: SILVER SULFADIAZINE 1% 50 GM TOP SCH ×3 (08:47→21:00)
[2020-10-03] MEDS ORDERED: INSULIN -REGULAR HUMAN 50 UNIT/0.5 ML ML ONE ×2 (08:59→12:24)
[2020-10-03] MEDS: Meropenem 500 MG in NA CHLORIDE 0.9% 100 ML IV SCH ×3 (10:00→17:47)
[2020-10-03] MEDS: SERTRALINE HCL 50 MG TAB PO SCH (10:04)
--- NOTE | 2020-10-03 10:19 | PN ---
Date of Progress Note: 10/02/2020 Mr. Suarez is here for anemia, hematuria. He remains on Eliquis. Blood pressure was low. He has been off the lisinopril and Coreg and has been corrected. He is in sinus rhythm, on sotalol for paro xysmal atrial fibrillation. Creatinine is decreased from 2.47. Nephrology is following. I will con tinue his present regimen. I will sign off his case. No further cardiac workup recommended at this point. I will be available for questions if the need arises. JAKE/PERLA Voice ID: [id number] Report ID: [id number]
--- NOTE | 2020-10-03 10:32 | EKG ---
Test Date: 2020-09-30 Test Time: 14:03:18 Mixing Machine Tender Cork Rod: MG MEASUREMENT RESULTS: Intervals: Rate: 73 SC: QRSD: 118 QT: 298 QTc: 328 [place]: P: SC: QRS: -56 T: 265 INTERPRETIVE STATEMENTS: Atrial fibrillation Left anterior fascicular block Nonspecific ST and T wave abnormality, probably digitalis effect Abnormal ECG Compared to ECG 09/29/2020 12:29:16 Left anterior fascicular block now present ST (T wave) deviation now present Sinus rhythm no longer present First degree AV block no longer present Left-axis deviation no longer present Intraventricular conduction delay no longer present T-wave abnormality no longer present Electronically Signed On 10-03-20 10:28:08 PULLER OVER by Jean Ballesteros
--- NOTE | 2020-10-03 10:33 | RAD REPORT ---
EXAM DESCRIPTION: XR Chest, 1 View CLINICAL HISTORY: The patient is 75 years old and is Male; PICC TECHNIQUE: Single view of the chest. COMPARISON: No relevant prior studies available. FINDINGS: Lungs: No pulmonary vascular congestion or definite infiltrate. Pleural space: Unremarkable. No pneumothorax. Heart: The cardiac silhouette is enlarged versus artifact of AP technique. Mediastinum: Unremarkable. Bones/joints: Degenerative changes in the right AC joint. No acute rib fracture. Tubes, lines and devices: Right PICC line terminates in the SVC. Upper abdomen: No free air in the visualized upper abdomen. IMPRESSION: Right PICC line terminates in the SVC. Electronically signed by: Lori Barragan MD 10/03/2020 4:14 AM MARINE STRUCTURAL DESIGNER Due to temporary technical issues with the PACS/Fluency reporting system, reports are being signed by the in house radiologist without review as a courtesy to ensure prompt reporting. The interpreting r adiologist is fully responsible for the content of the report.
[2020-10-03] MEDS: carvediloL 12.5 MG TAB PO SCH ×2 (11:49→22:34)
[2020-10-03] MEDS ORDERED: carvediloL 6.25 MG TAB ONE (12:03)
[2020-10-03] MEDS: SOD FERRIC GLUC COMPLX/SUCROSE 125 MG in NA CHLORIDE 0.9% 100 ML IV SCH (12:15)
[2020-10-03] MEDS ORDERED: PROMETHAZINE INJ 25 MG/ML AMP IV PRN (14:13)
[2020-10-03] MEDS ORDERED: SODIUM CHLORIDE 0.9% 10ML INJ IV PRN (14:27)
--- NOTE | 2020-10-03 14:27 | P.PN ---
Subjective Date of Service: 10/03/20 Chief Complaint: Septic shock/UTI/DNAR/Hematuria/Renal Cell Ca with mets Subjective: Other (some nausea/vomiting this am. Feeling better.) Physical Examination - Vital Signs Temperature: 97.5 F Blood Pressure: 140/103 Pulse: 65 Respirations: 15 Pulse Ox (%): 96 - Physical Exam General: Alert, In no apparent distress, Cooperative HEENT: Atraumatic Neck: Supple Respiratory: Crackles/rales Cardiovascular: Irregular heart rate/rhythm (a fib rate controlled) Neurological: Normal speech, Normal strength at 5/5 x4 extr, Normal tone, Normal affect - Studies Medications List Reviewed: Yes Assessment & Plan Discharge Plan: LTAC Plan to discharge in: 24 Hours Physician Review Additional Text: Assessment & Plan - Problems (Diagnosis) (1) UTI (urinary tract infection) Onset Date: 04/06/16 Current Visit: No Status: Acute Qualifiers: (2) Metastatic renal cell carcinoma to lung Current Visit: Yes Status: Acute (3) Acute diastolic heart failure Current Visit: No Status: Acute (4) Hematuria Onset Date: 07/10/16 Current Visit: No Status: Acute (5) Lower extremity edema Onset Date: 07/10/16 Current Visit: No Status: Acute (6) Renal cell carcinoma Current Visit: No Status: Acute (7) Atrial fibrillation Onset Date: 06/04/17 Current Visit: No Status: Chronic Qualifiers: Atrial fibrillation type: chronic (8) B12 deficiency Onset Date: 07/18/16 Current Visit: No Status: Chronic (9) Benign prostatic hyperplasia Onset Date: 06/04/17 Current Visit: No Status: Chronic Qualifiers: Lower urinary tract symptom presence: symptoms present Lower urinary tract symptom detail: unspecified Qualified Code(s): N40.1 - Benign prostatic hyperplasia with lower urinary tract symptoms (10) Chronic anticoagulation Onset Date: 05/21/17 Current Visit: No Status: Chronic (11) Chronic obstructive pulmonary disease Onset Date: 06/04/17 Current Visit: No Status: Chronic Qualifiers: COPD type: COPD with acute exacerbation Qualified Code(s): J44.1 - Chronic obstructive pulmonary disease with (acute) exacerbation (12) Congestive heart failure Onset Date: 06/04/17 Current Visit: No Status: Chronic (13) Coronary artery disease Onset Date: 06/04/17 Current Visit: No Status: Chronic Qualifiers: Coronary Disease-Associated Artery/Lesion type: [place] artery [place] vs. transplanted heart: [place] heart Associated angina: without angina Qualified Code(s): I25.10 - Atherosclerotic heart disease of [place] coronary artery without angina pectoris (14) Depression with anxiety Onset Date: 06/04/17 Current Visit: No Status: Chronic (15) Diabetes mellitus Onset Date: 06/04/17 Current Visit: No Status: Chronic Qualifiers: Diabetes mellitus type: type 2 Diabetes mellitus fdc insulin use: without parts counterman use Diabetes mellitus complication status: with unspecified complications (16) Hypertension Onset Date: 06/04/17 Current Visit: No Status: Chronic Qualifiers: Hypertension type: essential hypertension Qualified Code(s): I10 - Essential (primary) hypertension (17) Osteomyelitis Current Visit: Yes Status: Acute (18) Decubitus ulcer of sacral region, stage 1 Current Visit: Yes Status: Acute (19) ESBL (extended spectrum beta-lactamase) producing bacteria infection Current Visit: Yes Status: Acute - Plan Plan: 1. Continue with IV antibiotic therapy(6 weeks of IV antibiotics-conservative management with advanced metastatic cancer) for osteomyelitis. Case discussed with about the possibility of transfer to long-term acute care facility to continue wound care and antibiotic therapy. Patient and family agreed. Will pursue long-term acute care facility placement. Will consult wound care and infectious disease to further evaluate as well. 2. Continue monitor at hemoglobin hematocrit. 3. Hold anti coagulation; cardiology has stated to DC eliquis and just treat atrial fib with possibly antiplatelet therapy if hematuria is resolved 4. Patient is a DNR except vasopressors 5. History of DVT but prior Doppler was negative. Plan is to stop Eliquis completely because of the persistent hematuria and the long-term risk outweighed the benefits 6. Will consider anti-platelet therapy pending resolution of hematuria 7. Cultures reviewed. UTI shows Providencia. Blood culture negative. 8. Will review and adjust medication. Time Spent Managing Pts Care (In Minutes): 55
[2020-10-03] MEDS ORDERED: PROMETHAZINE INJ 25 MG/ML AMP ONE (14:35)
[2020-10-03] MEDS: MELATONIN 5 MG TABLET PO SCH (21:00)
--- NOTE | 2020-10-03 21:10 | PN ---
Date of Progress Note: 10/03/2020 Chief Complaint: Acute on chronic kidney injury. History Of Present Illness: The patient developed prerenal azotemia, nonoliguric acute tubular necro sis. MAURISIO inhibitor has been on hold. The patient previously was treated with MAURISIO inhibitor and Lasi x for congestive heart failure. During this admission, he was found to have complicated UTI, uroseps is. The patient has history of renal carcinoma and was seen by urologist for metastatic disease. Th e patient was found to have worsening of the renal function. He had advanced chronic kidney disease. Although upon arrival to the hospital, BUN was 53, creatinine 3.04. Renal function has improved gr adually over the last several days. Review of Systems: Denies PND or orthopnea. Physical Examination: Lungs: Diminished breath sounds at bases. Heart: S1, S2. Abdomen: Soft, benign. Extremities: Slight edema in both ankles. Impression And Plan: 1.Congestive heart failure, cardiorenal syndrome. Continue Lasix for ongoing congestive heart failu re with some fluid overload. 2.Hypokalemia. Replacement was ordered. Monitor potassium level and magnesium level. The patient may benefit from spironolactone. 3.Hypoalbuminemia. Albumin is 2.2. The patient will need additional studies to rule out nephrotic syndrome when he is stable and does not have gross hematuria. The patient may need to follow up outp atient. The patient was taking Eliquis due to history of hematuria, which is on hold. 4.Urinary tract infection. Monitor urine culture and adjust antibiotics. JM/MODL Voice ID: [id number] Report ID: [id number]
[2020-10-03] MEDS: ATORVASTATIN 10 MG TAB PO SCH (22:35)
--- NOTE | 2020-10-03 23:21 | CON ---
History Of Present Illness: This is a 75-year-old male, who was initially admitted to the hospital w ith shock. The patient was found to have gross hematuria and urinary tract infection, which later on found to have positive for Providencia stuartii, only sensitive to meropenem. The patient also has right foot osteomyelitis, especially in big toe, which has erosive ulceration secondary to diabetes m ellitus and neuropathy. The patient is unable to communicate well at this time. Most of the history was obtained through medical records and staff. As per family and , the patient does not want t o be intubated and he is a DNR status. Past Medical History: Includes hypertension, congestive heart failure, renal carcinoma, mets to lung s, COPD, former smoker, atrial fibrillation, arthrosclerotic heart disease, diabetes mellitus, diabet ic neuropathy, history of falls, history of recurrent urinary tract infection, cataract, GERD, benign prostatic hyperplasia, cholecystectomy, hernia repair, cardiac stent placement x2, colon polyp remov al, appendectomy. Social History: The patient lives at nursing facility, has good family support. Medications: See NOV. Allergies: NO KNOWN DRUG ALLERGIES. Review of Systems: Unable to obtain at this time. Physical Examination: General: This is a male, lying in bed, not in any acute cardiopulmonary distress. Vital Signs: Temperature 98.5, pulse 73, respirations 20, blood pressure 147/76. HEENT: Unremarkable. Neck: Supple. Lungs: Basal crackles. Heart: S1, S2. Regular. Abdomen: Soft, nontender. Bowel sounds positive. Extremities: Right hip unstageable wound. Right big toe and ankle wounds noted. Laboratory Data: WBC 12.9, hemoglobin 8.5, platelets are 361. Sodium 142, potassium 3.8, chloride 1 09, bicarb 28, BUN 35, creatinine 1.5, glucose 276. Urine culture was growing Providencia stuartii, only sensitive to meropenem. Assessment And Plan: Right foot osteomyelitis with diabetic foot ulcer in a 75-year-old male with si gnificant history of urinary tract infection, came with septic shock secondary to urosepsis. The pat ient is positive for multidrug-resistant Providencia stuartii, currently being treated with IV antibi otic for 6 weeks for the osteomyelitis of right foot. The patient also has ulceration to the right h ip and we will recommend applying Medihoney to the hip wound and Iodosorb to the right big toe and al so apply Medihoney to the ankle wound with alginate, barrier cream to the sacral wound site. Continu e empiric antibiotic and wound care. The patient has multiple medical problems including renal cance r with mets to lungs, chronic obstructive pulmonary disease, diabetes mellitus, diabetic neuropathy, congestive heart failure. The patient's status is do not resuscitate and he is awaiting transfer to long-term acute care for further management of his wounds and overall condition. Thank you Dr. Gonzalez for consult. NAZIA/PERLA Voice ID: [id number] Report ID: [id number]
[2020-10-04] MEDS: Meropenem 500 MG in NA CHLORIDE 0.9% 100 ML IV SCH ×2 (00:36→09:56)
[2020-10-04 00:55] VITALS: O2SAT 94
[2020-10-04 06:00] LABS: Potassium 3.7 mmol/L (3.5-5.1)
[2020-10-04] MEDS ORDERED: VANCOMYCIN 2 GM in NA CHLORIDE 0.9% 500 ML IVPB SCH ×5 (06:00→18:00)
[2020-10-04] MEDS: INSULIN -REGULAR HUMAN 50 UNIT/0.5 ML ML SQ SCH ×3 (07:30→15:53)
[2020-10-04] MEDS ORDERED: POTASSIUM CL SA 10 MEQ TAB PO ONE (08:00)
[2020-10-04] MEDS ORDERED: MEDIHONEY 44 ML TOPICAL TUBE TOP SCH ×2 (09:00)
[2020-10-04] MEDS ORDERED: PANTOPRAZOLE 40 MG INJ IVP SCH (09:00)
[2020-10-04] MEDS: SILVER SULFADIAZINE 1% 50 GM TOP SCH (09:00)
[2020-10-04] MEDS: D5W 1,000 ML with NA BICARB 8.4% 100 MEQ IV SCH ×2 (09:55)
[2020-10-04] MEDS: SERTRALINE HCL 50 MG TAB PO SCH (09:56)
[2020-10-04] MEDS: ZINC SULFATE 220 MG CAP PO SCH (09:56)
[2020-10-04] MEDS: ASCORBIC ACID 500 MG TABLET PO SCH (09:56)
[2020-10-04] MEDS: SOD FERRIC GLUC COMPLX/SUCROSE 125 MG in NA CHLORIDE 0.9% 100 ML IV SCH (09:56)
[2020-10-04] MEDS: CEFTRIAXONE/SWI 1gm 1 GM/10 ML SYR IV SCH (09:56)
[2020-10-04] MEDS: predniSONE 20 MG TAB PO SCH (09:56)
[2020-10-04] MEDS: carvediloL 12.5 MG TAB PO SCH (09:57)
[2020-10-04 11:56] VITALS: TEMP 97.6
--- NOTE | 2020-10-04 13:31 | P.PN ---
Subjective Date of Service: 10/04/20 Chief Complaint: Septic shock/UTI/DNAR/Hematuria/Renal Cell Ca with mets Subjective: Improving, Doing well (No more nausea vomiting) Physical Examination - Vital Signs Temperature: 97.6 F Blood Pressure: 155/74 Pulse: 89 Respirations: 16 Pulse Ox (%): 99 - Physical Exam General: Alert, In no apparent distress, Cooperative HEENT: Atraumatic Neck: Supple Respiratory: Clear to auscultation bilaterally Cardiovascular: Irregular heart rate/rhythm (AFib rate controlled) Gastrointestinal: Normal bowel sounds Integumentary: Other (Right foot bandaged) Neurological: Normal speech, Normal strength at 5/5 x4 extr, Normal tone - Studies Microbiology Data (last 24 hrs): 09/29/20 12:45 Blood - Blood Aerobic Blood Culture - Final No growth in 5 days. 09/29/20 12:45 Blood - Blood Anaerobic Blood Culture - Final No growth in 5 days. 09/29/20 12:59 Blood - Blood Aerobic Blood Culture - Final No growth in 5 days. Medications List Reviewed: Yes Assessment & Plan Discharge Plan: LTAC Plan to discharge in: 24 Hours Physician Review Additional Text: Impression: UTI, urine culture positive for Providencia -multi resistant Osteomyelitis of the right foot Acute on chronic diastolic CHF Acute renal failure secondary to above with history of renal cell carcinoma with metastatic lung disease Chronic atrial fibrillation On chronic anti coagulation therapy COPD Diabetes mellitus type 2 Hypertension CAD Plan: UTI, urine culture positive for Providencia -multi resistant: Continue meropenem for total of 7 days. Will check with pharmacy on how many days left. Patient with osteomyelitis is well. Continue vancomycin for osteomyelitis. Will need 6 weeks worth of medication. Case discussed with nephrology and infectious disease. Case discussed with yesterday. Fallen agreement to send patient to long-term acute facility to continue aggressive wound care and IV antibiotic treatment. Await approval.. Osteomyelitis of the right foot: Continue IV vancomycin. Pharmacy to monitor and adjust. Patient will need 6 weeks of IV antibiotic therapy. Wound care. Pursue long-term acute care facility. Acute on chronic diastolic CHF: Nephrology to add Lasix. Discontinue IV fluids Acute renal failure secondary to above with history of renal cell carcinoma with metastatic lung disease: Renal function improved. Continue with nephrology recommendation. Chronic atrial fibrillation On chronic anti coagulation therapy: Continue sotalol. Continue off Eliquis. Cardiology recommends to discontinue Eliquis due to recent hematuria. Risk outweighed benefit. Hematuria: This appears resolved. Will monitor closely. COPD: Continue medication Diabetes mellitus type 2: Continue Accu-Cheks and sliding scale Hypertension: Continue medication Sacral decubitus stage I: Continue treatment. Time Spent Managing Pts Care (In Minutes): 55
[2020-10-04] MEDS ORDERED: HOME MED 1 EA UNK (Ipratropium/Albuterol Sulfate [Iprat-Albut 0.5-3(2.5) Mg/3 Ml] 3 ML Amp NEB PRN (13:32)
[2020-10-04] MEDS ORDERED: FUROSEMIDE 40 MG/4 ML VIAL IV ONE (13:33)
[2020-10-04] MEDS ORDERED: ALBUTEROL 2.5 MG/3 ML NEB SOL IH PRN (13:37)
[2020-10-04] MEDS ORDERED: IPRATROPIUM BROM 0.5MG/2.5ML IH PRN (13:38)
--- NOTE | 2020-10-04 14:04 | P.DS ---
Admission Date: 09/29/20 Discharge Date: 10/04/20 Primary Care Provider: unknown Disposition: [facility] Discharge Condition: GOOD Reason for Admission: Septic shock/UTI/DNAR/Hematuria/Renal Cell Ca with mets Procedures: Xray: FINDINGS: No fracture or dislocation is seen Osteoporosis. An erosion involves the proximal aspect of the second proximal phalanx and base of second distal phalanx. Cortical irregularity involves the first distal phalanx. One or more of these areas may indicate osteomyelitis Venous doppler: FINDINGS: The common femoral, superficial femoral, popliteal and posterior tibial veins bilaterally are compressible and demonstrate augmentation. Doppler demonstrates good flow. IMPRESSION: No evidence of deep venous thrombosis involving either lower extremity. CT Scan: FINDINGS: Patchy airspace opacification is present in the posterior gutter on the left along with additional interstitial stranding and bronchial wall thickening. This could be a small infectious or aspiration pneumonia. Trace amount of pleural fluid present posteromedial right base. In the lateral left base a 16 millimeter noncalcified pulmonary nodule is present enlarged from prior imaging. Two abutting 9 millimeter nodular foci present in the anterior mid right chest. A 7 millimeter noncalcified pulmonary nodule present posterior left apex with an 8 x 5 mm nodule in the anterior mid left upper lobe at the aortic arch level. These are all new or enlarged from July 2019 study. No pneumothorax or pleural effusion. No chest wall mass or abnormal axillary lymphadenopathy seen. Small nonspecific mediastinal lymph nodes are present. No axillary lymphadenopathy. Patient has prominent bilateral gynecomastia. Heart size is upper normal. No pericardial effusion. The liver, spleen and pancreas show no significant findings for non contrast imaging. Cholecystectomy clips are present. No biliary tree dilatation. 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 The mass has enlarged to approximately 6.4 cm AP x 8.9 cm TR. No hydronephrosis is present. A 2.3 centimeter isodense mass lateral mid left kidney corresponds to a cyst seen on the September 2019 study. No adrenal abnormalities. Urinary bladder is fully contracted around a Iraheta catheter limiting assessment. No gastric dilatation or wall thickening. No acute small bowel finding. Moderate stool volume is present throughout the colon. No appendicitis. Sigmoid colon is quite tortuous and redundant reaching the anterior upper abdomen. Near the rectosigmoid junction there is mild wall thickening. There is stranding in the adjacent fat. Large stool volume mildly distends the colon immediately proximal to the rectosigmoid junction. Detail is limited due to spray artifact from right hip prosthesis. No free air, free fluid or pneumatosis. Fat filled left inguinal hernia is present. No bulky lymphadenopathy. No acute bone or joint finding. Degenerative changes are present. Arterial calcifications present. IMPRESSION: Since the September 2019 study there has been enlargement of the known right renal malignant mass. The IVC thrombus detailed September 2019 cannot be evaluated due to absence of contrast on this study. Patient has multiple pulmonary metastatic lesions new or enlarged from July 2019. Posterior gutter opacification on the left lung base suspected to be a mild or early infectious or aspiration pneumonia. Wall thickening at the rectosigmoid junction. There is stranding in the adjacent fat. And mild proctitis/ colitis would be a consideration. Mass cannot be excluded due to the limiting affects of the right hip prosthesis spray artifact. Medical problem list: Septic shock related to UTI, urine culture positive for Providencia -multi resistant complicated with hematuria likely related to medication/complicated with renal cell carcinoma Osteomyelitis of the right foot Acute on chronic diastolic CHF Acute renal failure secondary to above with history of renal cell carcinoma with metastatic lung disease Chronic atrial fibrillation previously on chronic anti coagulation therapy COPD Diabetes mellitus type 2 Hypertension CAD Brief History of Present Illness: 75-year-old male with multiple medical problems including atrial fibrillation on chronic anti coagulation therapy, CHF, hypertension, diabetes, renal renal cell carcinoma with metastasis. Patient presented in septic shock. Hospital Course: Patient presented in septic shock related to UTI. 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 Patient also had been taking Eliquis for anti coagulation therapy as well. Medication-Eliquis was held. Patient was treated for his infection. Patient had previously been on hospice. This was revoked. Family wanted to continue treatment for infection this included osteomyelitis of the right foot.. Patient remains DNR. During the course of his stay. Patient was seen by infectious disease, cardiology and nephrology. His condition improved. Urine culture grew out Providencia. This was resistant to multiple medications. Patient has remained stable on meropenem. Patient will need to finish course of 7 day treatment. Patient no longer requiring vasopressors. Patient has transitioned to the medical floor. Patient currently on vancomycin for right foot osteomyelitis.. Infectious Disease recommends long-term IV antibiotic therapy and aggressive wound care.. Family wishes to pursue treatment for this. Patient has been accepted to [facility] to continue his care. Patient will continue with wound care and IV antibiotic therapy for osteomyelitis. Nephrology will continue to follow patient at the long-term acute care facility along with infectious disease. Renal function now back to baseline. Patient remains off Eliquis. It is recommended that this not be continued due to his hematuria and renal cell carcinoma. Other medical problems include COPD, diabetes mellitus type 2, hypertension and sacral decubitus. Continue with current plan of care and current medications. Patient has been accepted and will be transfer to [facility] to continue his care. Vital Signs/Physical Exam: Temp Pulse Resp BP Pulse Ox 97.6 F 89 16 155/74 H 99 10/04/20 13:33 10/04/20 13:33 10/04/20 13:33 10/04/20 13:33 10/04/20 13:33 General: Alert, In no apparent distress, Oriented x3, Cooperative HEENT: Atraumatic Neck: Supple Respiratory: Expiratory wheezes Cardiovascular: Irregular heart rate/rhythm (AFib rate controlled) Integumentary: Other (Right foot bandaged) Neurological: Normal speech, Normal strength at 5/5 x4 extr, Normal tone, Normal affect Laboratory Data at Discharge: WBC 12.9 K/uL (4.3-10.9) H D 10/03/20 04:00 Hgb 8.5 g/dL (13.6-17.9) L 10/03/20 04:00 Hct 25.9 % (39.6-49.0) L 10/03/20 04:00 Plt Count 361 K/uL (152-406) 10/03/20 04:00 PT 14.5 SECONDS (9.5-12.5) H 10/02/20 05:03 INR 1.23 10/02/20 05:03 APTT 42.7 SECONDS (24.3-36.9) H 10/02/20 05:03 Sodium 144 mmol/L (136-145) 10/04/20 04:45 Potassium 3.7 mmol/L (3.5-5.1) 10/04/20 04:45 BUN 28 mg/dL (7-18) H 10/04/20 04:45 Creatinine 1.27 mg/dL (0.55-1.3) 10/04/20 04:45 Glucose 193 mg/dL (74-106) H 10/04/20 04:45 Phosphorus 2.7 mg/dL (2.5-4.9) 10/02/20 05:03 Magnesium 1.8 mg/dL (1.8-2.4) 10/02/20 05:03 Total Bilirubin 0.3 mg/dL (0.2-1.0) 10/02/20 05:03 AST 21 U/L (15-37) 10/02/20 05:03 ALT 25 U/L (12-78) 10/02/20 05:03 Alkaline Phosphatase 142 U/L (45-117) H 10/02/20 05:03 Lipase 51 U/L (73-393) L 09/29/20 12:50 Home Medications: Acetaminophen [Acetaminophen ER] 650 mg PO Q6HP PRN 08/01/19 Apixaban [Eliquis] 5 mg PO BID 08/01/19 Atorvastatin Calcium [Lipitor*] 10 mg PO BEDTIME 08/01/19 Gabapentin 300 mg PO TID 08/01/19 Glimepiride [Amaryl*] 2 mg PO DAILY 08/01/19 Ipratropium/Albuterol Sulfate [Iprat-Albut 0.5-3(2.5) mg/3 ml] 3 ml NEB Q4HP PRN 08/01/19 Melatonin 5 mg PO BEDTIME 08/01/19 Ondansetron [Zofran (Odt)*] 4 mg PO Q8HP PRN 08/01/19 Ranolazine [Ranolazine ER] 1,000 mg PO BID 08/01/19 Sertraline HCl 50 mg PO DAILY 08/01/19 Sotalol HCl [Betapace*] 80 mg PO BID 08/01/19 Tamsulosin HCl 0.4 mg PO DAILY 08/01/19 carvediloL [Coreg*] 12.5 mg PO BID 08/01/19 lisinopriL [Prinivil*] 20 mg PO DAILY 08/01/19 Ascorbic Acid [Vitamin C] 250 mg PO DAILY 09/30/20 Doxycycline Hyclate 100 mg PO BID 09/30/20 Ergocalciferol (Vitamin D2) [Vitamin D2] 1,250 mcg PO EVERY 7TH DAY 09/30/20 Ferrous Sulfate 325 mg PO DAILY 09/30/20 Fluticasone/Umeclidin/Vilanter [Trelegy Ellipta 100-62.5-25] 1 each IH DAILY 09/30/20 Potassium Chloride [K-Dur] 10 meq PO DAILY 09/30/20 Zinc 50 mg PO DAILY 09/30/20 guaiFENesin [Radha-Tussin] 5 ml PO Q6HP PRN 09/30/20 Patient Discharge Instructions: Patient be transferred to long-term acute care facility continue IV antibiotic therapy for osteomyelitis of the right foot. Patient to be further treated for his other medical problems including UTI-multi resistant, atrial fibrillation now off chronic anti coagulation therapy due to hematuria likely related to medication-Eliquis and stage IV renal cell carcinoma with lung metastasis. Patient will be followed by nephrology and infectious disease. Diet: ADA Activity: Fall precautions Followup: Unknown,U [Primary Care Provider] - Time spent managing pt's care (in minutes): 55
--- NOTE | 2020-10-04 14:14 | PN ---
Date of Progress Note: 10/04/2020 Subjective: The patient was admitted with acute kidney injury. Creatinine on admission was 3.2, currently down to 1.2. The patient was prerenal. The patient's after hydration kidney function has been improved significantly. His acute kidney injury was toxic ATN secondary to urosepsis superimposed with MAURISIO inhibitor, dehydration as prerenal and cardiorenal. The patient responded very well. Physical Examination: Vital Signs: When I saw the patient, blood pressure 155/74, pulse of 89, afebrile. The patient had been making good urine output of 1900. Chest: Crackles bilateral base. Heart: S1, S2. Systolic murmur. Abdomen: Soft, nontender. Extremities: Plus edema. Neuro: Alert, sleepy. Laboratory Data: Sodium 144, potassium 3.7, bicarb 31, BUN 28, creatinine 1.2, GFR of 55, calcium 8.3. WBC 12.9, H and H 8.5/25.9, platelet 361. Current Medications: The patient on include; 1. Meropenem. 2. Vancomycin. 3. Promethazine. 4. IV iron. 5. Atorvastatin. 6. Carvedilol. 7. Zoloft. 8. D5 with sodium bicarb of 100. 9. Metoclopramide. 10. Pantoprazole. 11. Prednisone. 12. KCl. Assessment And Plan: 1. Acute kidney injury secondary to cardiorenal, looked to me still on the over volume side. I am going to discontinue IV fluid, start the patient on Lasix, and we will monitor the patient closely. 2. Acidosis secondary to renal failure. Discontinue bicarb drip. 3. Urinary tract infection secondary to providencia, serratia. Continue meropenem. Currently, the patient is on 500 every 8 hours. I will adjust the dosage. 4. Osteomyelitis. Continue vancomycin. Follow up with the primary. 5. Congestive heart failure, slightly on the wet side. Discontinue IV fluid, start gentle p.r.n. diuresis. time spend exam the patient face to face , place order , discussed the case with other sample steamer hospitalist and other technical marketing consultant 45 min. YENNI Voice ID: [id number] Report ID: [id number] MICHAEL
[2020-10-04 16:19] VITALS: BP 135/79
[2020-10-04] MEDS ORDERED: Meropenem 1,000 MG in NA CHLORIDE 0.9% 100 ML IV SCH (17:00)
[2020-10-05] MEDS ORDERED: HOME MED 1 EA UNK (Fluticasone/Umeclidin/Vilanter [Trelegy Ellipta 100-62.5-25] Blst.W.Dev IH SCH (09:00)
== END 2020-10-04 17:44 | DRG 871 ==
LOC: ER 12:17 → ERHOLD 17:37 → 2ND 10-03 17:05
PROVIDERS: ADMIT Hospitalist; ATTEND Family Medicine
PROC: 02HV33Z Insertion of Infusion Device into Superior Vena Cava, Percutaneous Approach (ICD-10-PCS; principal; 2020-10-03)
DX: A41.9 Sepsis, unspecified organism (principal); R65.21 Severe sepsis with septic shock; J18.9 Pneumonia, unspecified organism; I50.33 Acute on chronic diastolic (congestive) heart failure; N17.0 Acute kidney failure with tubular necrosis; R57.1 Hypovolemic shock; N39.0 Urinary tract infection, site not specified; I13.0 Hypertensive heart and chronic kidney disease with heart failure and stage 1 through stage 4 chronic kidney disease, or unspecified chronic kidney disease; C64.9 Malignant neoplasm of unspecified kidney, except renal pelvis; C78.00 Secondary malignant neoplasm of unspecified lung; I48.92 Unspecified atrial flutter; J44.1 Chronic obstructive pulmonary disease with (acute) exacerbation; J44.0 Chronic obstructive pulmonary disease with (acute) lower respiratory infection; M87.9 Osteonecrosis, unspecified; I24.8 Other forms of acute ischemic heart disease; M86.8X7 Other osteomyelitis, ankle and foot; Z16.12 Extended spectrum beta lactamase (ESBL) resistance; N18.30 Chronic kidney disease, stage 3 unspecified; E11.22 Type 2 diabetes mellitus with diabetic chronic kidney disease; E11.69 Type 2 diabetes mellitus with other specified complication; E11.40 Type 2 diabetes mellitus with diabetic neuropathy, unspecified; E11.621 Type 2 diabetes mellitus with foot ulcer; L97.519 Non-pressure chronic ulcer of other part of right foot with unspecified severity; I95.2 Hypotension due to drugs; T50.915A Adverse effect of multiple unspecified drugs, medicaments and biological substances, initial encounter; N40.1 Benign prostatic hyperplasia with lower urinary tract symptoms; K21.9 Gastro-esophageal reflux disease without esophagitis; F41.8 Other specified anxiety disorders; I48.0 Paroxysmal atrial fibrillation; L89.211 Pressure ulcer of right hip, stage 1; E53.8 Deficiency of other specified B group vitamins; N28.9 Disorder of kidney and ureter, unspecified; D64.9 Anemia, unspecified; I25.10 Atherosclerotic heart disease of native coronary artery without angina pectoris; L89.151 Pressure ulcer of sacral region, stage 1; B96.89 Other specified bacterial agents as the cause of diseases classified elsewhere; R77.8 Other specified abnormalities of plasma proteins; R31.0 Gross hematuria; Z66 Do not resuscitate; Z88.5 Allergy status to narcotic agent; Z88.8 Allergy status to other drugs, medicaments and biological substances; Z79.82 Long term (current) use of aspirin; Z79.899 Other long term (current) drug therapy; Z79.01 Long term (current) use of 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; Z79.84 Long term (current) use of oral hypoglycemic drugs; Z87.891 Personal history of nicotine dependence; Z90.49 Acquired absence of other specified parts of digestive tract; Z95.5 Presence of coronary angioplasty implant and graft; Z20.822 Contact with and (suspected) exposure to COVID-19
CPT/HCPCS: 36415; 36569; 70450; 71045; 71250; 74176; 80048; 80053; 80076; 80202; 81001; 81003; 81015; 82607; 82728; 82746; 82947; 83540; 83605; 83690; 83735; 83880; 84100; 84132; 84145; 84439; 84443; 84484; 85025; 85044; 85610; 85730; 86850; 86900; 86901; 87040; 87070; 87077; 87086; 87088; 87186; 87205; 93005; 93970; 96361; 96365; 96367; 96375; 99251; 99285; J0696; J1160; J1720; J1940; J2185; J2405; J2543; J2550; J2765; J2916; J3370; J3420; J3480; J7030; J7040; J7050; J7512; P9047; U0003